=== PATIENT | female | born 1970 | race Caucasian/White ===

== ENCOUNTER → 2019-09-05 08:55 | Outpatient (BNVA) | payer MEDICAID, SELFPAY | PROVIDERS: Family Provider Internal Medicine; PCP Internal Medicine; Visit Provider Nurse Practitioner | DX: M47.812 Spondylosis without myelopathy or radiculopathy, cervical region (principal); M47.816 Spondylosis without myelopathy or radiculopathy, lumbar region; F17.210 Nicotine dependence, cigarettes, uncomplicated; Z79.891 Long term (current) use of opiate analgesic | CPT/HCPCS: 99214 ==

== ENCOUNTER → 2019-09-12 12:11 | Outpatient (BNVA) | payer MEDICAID, SELFPAY | PROVIDERS: Family Provider Internal Medicine; PCP Internal Medicine; Visit Provider Anesthesiology Pain Medicine | DX: M47.816 Spondylosis without myelopathy or radiculopathy, lumbar region (principal); M54.9 Dorsalgia, unspecified; F17.210 Nicotine dependence, cigarettes, uncomplicated | CPT/HCPCS: 64635; 64636; 77003; J1030; J2001 ==

== ENCOUNTER → 2019-09-26 12:50 | Outpatient (BNVA) | payer MEDICAID, SELFPAY | PROVIDERS: Family Provider Internal Medicine; PCP Internal Medicine; Visit Provider Anesthesiology | DX: M50.30 Other cervical disc degeneration, unspecified cervical region (principal); M47.812 Spondylosis without myelopathy or radiculopathy, cervical region; M47.816 Spondylosis without myelopathy or radiculopathy, lumbar region; F17.210 Nicotine dependence, cigarettes, uncomplicated; Z79.891 Long term (current) use of opiate analgesic | CPT/HCPCS: 99213; 99214 ==

== ENCOUNTER 2019-11-01 12:09 | Observation (INO) | payer MEDICAID, SELFPAY ==
[2019-11-01] VITALS (10 sets, daily range): BP systolic 75–126; BP diastolic 57–91; PULSE 86–117; RESP 16–20; TEMP 36.4; O2SAT 93–98; BMI 28.9
--- NOTE | 2019-11-01 12:28 | CT_ITS ---
WS: [id number] CT ABDOMEN PELVIS TECHNIQUE: Contrast-enhanced CT of the abdomen and pelvis with coronal and sagittal reformatted image s. CLINICAL INFORMATION: vomiting, hypotension COMPARISON: March 20, 2017 DLP: 1079.[address] scans at [facility] use at least one of these dose optimization techniques: automat ed exposure control; mA and/or kV adjustment per patient size (includes targeted exams where dose is matched to clinical indication); or iterative reconstruction. FINDINGS: Prior cholecystectomy. Prior hysterectomy. Mild intrahepatic biliary ductal dilatation is normal post cholecystectomy. Stable dilatation of the common bile duct. Normal hepatic parenchymal enhancement. P ortal vein and splenic vein appear patent. Moderate fatty atrophy of the pancreas. Splenic granulomas . Adrenal glands are normal. Normal renal parenchymal enhancement. No hydronephrosis. Normal caliber abdominal aorta. Aortic calcification. Colon is normal in appearance. Normal appendix. Slightly prominent fluid-filled loops of small bowel in the midabdomen and pelvis without evidence of significant bowel distention or high-grade obstructi on. Lung bases are well aerated. No periaortic or pelvic lymphadenopathy. CT/CT abdomen pelvis w con* [id number] IMPRESSION: 1. Prior cholecystectomy. Liver is normal in appearance. 2. No evidence of small or large bowel obstruction. A few slightly prominent l oops of fluid-filled small bowel in the mid abdomen and pelvis although no evid ence of obstruction. 3. No free fluid in the pelvis. 4. No hydronephrosis. Normal renal parenchymal enhancement. 5. Normal appendix. 6. Prior hysterectomy.
--- NOTE | 2019-11-01 12:29 | XR_ITS ---
WS: [id number] CHEST XRAY TECHNIQUE: Portable chest. CLINICAL INFORMATION: vomiting COMPARISON: May 04, 2018 FINDINGS: Heart: Normal cardiac silhouette. Lungs: Chronic emphysematous changes. Hyperinflation. Chronic appearing interstitial thickening in th e lung bases is unchanged. No acute pulmonary infiltrates. Bones: Normal visualized bony structures. XR/XR chest 1V portable [id number] IMPRESSION: Hyperinflation with chronic emphysematous change. No acute pulmonary infiltrate s.
--- NOTE | 2019-11-01 12:34 | ED_ITS ---
HPI - Nausea/Vomiting/Diarrhea General: Chief complaint: Nausea/Vomiting/Diarrhea Stated complaint: NAUSEA/ VOMITING Time Seen by Provider: 11/01/19 12:19 Source: patient Mode of arrival: EMS Limitations: no limitations History of Present Illness: HPI Narrative: The patient is a 49-year-old female patient with a history of diabetes mellitus, hypertension, chronic opioid use who presents to the emergency department with complaints of nausea and vomiting. She has been vomiting for about 3 weeks but got much worse about 2 days ago and at that time she was vomiting every 30 minutes. She went to her primary care provider's office today and they noted that she was Hypoxic with oxygen saturation in the mid 80s and so they asked her to be brought here for evaluation. She states that she has been using her insulin as she should, however she is unsure of when she took it last because her blood glucose was high this morning the 300s but has come back down to 100s. MD elicited complaint: nausea and vomiting Onset (ago): week(s) (2, but much worse in the last 2 days) Description of vomiting: food contents Associated nausea: Yes Associated symtoms: Reports chest pain and nausea; Denies change in vision, dysuria, headache(s) or palpitations Review of Systems General: Reports: 10 or more systems reviewed and unremarkable except in HPI and below Const: Denies: fever, chills or body aches Eyes: Denies: change in vision or blurry vision ENMT: Denies: throat pain, enlarged tonsils, painful swallowing, hoarseness, mouth pain or swelling of lips/tongue Card: Reports: chest pain; Denies: palpitations, irregular heart rhythm, edema or swelling of feet/ankles Resp: Denies: shortness of breath, productive cough or non-productive cough GI: Reports: nausea : Denies: flank pain, difficulty urinating, painful urination, urinary frequency, urinary urgency or urinary hesitancy Musc: Denies: neck pain, back pain or extremity swelling Skin/Breast: Denies: rash, itching or redness Neuro: Denies: headache, numbness in extremities or weakness in extremities Endo: Denies: excessive urination, excessive thirst or tired all the time [facility] ED PFSH: Social History (Updated 11/01/19 @ 08:36 by Amy Ridley LPN) Smoking and tobacco status: current every day smoker cigarettes Packs smoked per day: 0.5 Alcohol intake: current Alcohol intake frequency: holidays/special occasions only Caregiver/support person: Yes Lives independently: Yes Household members: spouse Marital status: History of recent travel: No Physical Exam Const: COMMON NORMALS: no apparent distress, average body habitus, oriented x3, no limitations, healthy appearing and alert HENMT: COMMON NORMALS: normocephalic and head/scalp atraumatic HEAD & SCALP: normocephalic and atraumatic Eye: COMMON NORMALS: PERRL, EOMs intact bilaterally, conjunctivae normal and no scleral icterus CONJUNCTIVA: Yes conjunctivae normal PUPIL: Yes PERRL Neck/C-Spine: COMMON NORMALS: full ROM, supple, no meningeal signs, no JVD and no carotid bruits Chest: COMMONS NORMALS: inspection of chest normal and palpation of chest normal Resp: COMMON NORMALS: normal respiratory effort, no retractions, no use of accessory muscles, clear to auscultation bilaterally and percussion normal AUSCULTATION: clear to auscultation bilaterally PERCUSSION: percussion normal Cardio: COMMON NORMALS: no JVD, regular rate, regular rhythm, S1 normal heart sound, S2 normal heart sound, no gallops, no clicks, no murmurs, no rub and peripheral pulses 2+ throughout RATE: regular rate RHYTHM: regular rhythm HEART SOUNDS: S1 normal and S2 normal PERIPHERAL PULSES: pulses 2+ throughout GI: COMMON NORMALS: normal to inspection, nondistended, normoactive bowel sounds, soft to palpation, non-tender, no hepatosplenomegaly, no masses and no bruits PALPATION: Yes soft and Yes no hepatosplenomegaly : COMMON NORMALS: Yes no CVA tenderness BLADDER/KIDNEY EXAM: Yes no CVA tenderness Back/Pelvis: COMMON NORMALS: no CVA tenderness Extremity: COMMON NORMALS: normal to inspection, full ROM, normal capillary refill, no calf tenderness and no pedal edema Neuro: COMMON NORMALS: oriented x3 SENSORIUM/ORIENTATION: Yes alert MENINGEAL SIGNS: Yes no meningeal signs Skin: COMMON NORMALS: no rashes or lesions noted, no wounds, skin turgor normal, no jaundice, no petechiae and no mottling GENERAL SKIN EXAM: no rashes or lesions noted and turgor normal Course ED course: 49-year-old diabetic and hypertensive patient who presents to the emergency department with intractable nausea and vomiting. Patient was hypotensive on arrival, and on evaluation she also has acute kidney injury. She responded to a fluid bolus, evaluation in the emergency department shows she is not in DKA and he was essentially unremarkable. Consultations: Consultation #1: Dr. Alva, Hospitalist. He kindly accepted the patient to his service. Time: 15:35 Vital Signs: Vital signs: Vital Signs Temperature 97.6 F 11/01/19 12:20 Pulse Rate 95 11/01/19 16:40 Respiratory Rate 18 11/01/19 16:40 Blood Pressure 110/76 11/01/19 16:40 Pulse Oximetry 96 11/01/19 16:40 MDM - Nausea/Vomiting/Diarrhea MDM Narrative: Medical decision making narrative: 49-year-old female patient who presents with nausea vomiting and hypotension. She also has acute kidney injury. She is being admitted for further evaluation and management. Medical Records: Attestation: I reviewed the patient's medical records. Lab Data: Labs: Lab Results 11/01/19 11/01/19 11/01/19 Range/Units 12:44 13:03 13:47 WBC 20.0 H (4.0-10.0) 10^3/ uL RBC 5.08 (4.1-5.3) 10^6/u L Hgb 14.0 (11.5-15.3) g/dL Hct 42.4 (37.0-47.0) % MCV 83.5 (81-99) fL MCH 27.6 L (28.0-34.0) pg MCHC 33.0 (30.0-36.0) g/dL RDW 15.3 H (12.1-15.1) % Plt Count 211 (130-400) 10^3/c mm MPV 9.4 (7.4-10.4) fL Neut % (Auto) 77.7 % Lymph % (Auto) 14.3 % Mitchell % (Auto) 6.4 % Eos % (Auto) 0.3 % Baso % (Auto) 0.3 % Neut # (Auto) 15.5 H (1.8-7.7) 10^3/u L Lymph # (Auto) 2.9 (0.8-4.8) 10^3/u L Mitchell # (Auto) 1.3 H (0.2-0.9) 10^3/u L Eos # (Auto) 0.1 (0.0-0.8) 10^3/u L Baso # (Auto) 0.1 (0.0-0.1) 10^3/u L Nucleated RBC % (a uto) 0 % Nucleated RBCs # 0.0 /100WBC Specimen Type Arterial Sample Site Radial, left ABG pH 7.51 H (7.35-7.45) ABG pCO2 27.7 L (35-45) mmHg ABG pO2 70.3 L (80.0-100.0) mmH g ABG HCO3 22.0 (22-26) mmol/L ABG Base Excess 0.0 (-2.0-2.0) mmol/ L Vishal Test Pos Hematocrit 39.0 (37-47) % O2 Delivery Device Room air FiO2 21.0 % Childcare Center Director ID [email or web address] Sodium (136-145) mmol/L Potassium (3.5-5.1) mmol/L Chloride (98-107) mmol/L Carbon Dioxide (22-29) mmol/L Anion Gap (5-19) BUN (6-20) mg/dL Creatinine (0.5-0.9) mg/dL GFR Calculation (90-130) mL/min Glucose (65-115) mg/dL Calculated Osmolal ity (285-295) mOsm/k g Lactate 2.2 (0.5-2.2) mmol/L Calcium (8.5-10.5) mg/dL Total Bilirubin (0.15-1.2) mg/dL AST (0-32) U/L ALT (0-33) U/L Alkaline Phosphata se (35-105) IU/L C-Reactive Protein (0.0-4.9) mg/L Total Protein (6.6-8.7) g/dL Albumin (3.5-5.2) g/dL Globulin (1.3-4.6) g/dL Lipase (13-60) U/L Urine Color (Yellow) Urine Appearance (CLEAR) Urine pH (5-7) Ur Specific Gravit y (1.005-1.030) Urine Protein (Negative) Urine Glucose (UA) (Normal) Urine Ketones (Negative) Urine Blood (Negative) Urine Nitrate (Negative) Urine Bilirubin (NEGATIVE) Urine Urobilinogen (Negative) mg/dL Ur Leukocyte Suzie ase (Negative) Urine RBC (0-2) /hpf Urine WBC (0-5) /hpf Ur Squamous Epith Cells (0-5) Urine Bacteria (NONE) Urine Opiates Scre en (Negative) ng/mL Ur Barbiturates Sc reen (Negative) ng/mL Ur Phencyclidine S crn (Negative) ng/mL Ur Amphetamines Sc reen (Negative) ng/mL U Benzodiazepines Scrn (Negative) ng/mL Urine Cocaine Scre en (Negative) ng/mL U Marijuana (THC) Screen (Negative) ng/mL 11/01/19 11/01/19 11/01/19 Range/Units 13:47 14:57 14:57 WBC (4.0-10.0) 10^3/ uL RBC (4.1-5.3) 10^6/u L Hgb (11.5-15.3) g/dL Hct (37.0-47.0) % MCV (81-99) fL MCH (28.0-34.0) pg MCHC (30.0-36.0) g/dL RDW (12.1-15.1) % Plt Count (130-400) 10^3/c mm MPV (7.4-10.4) fL Neut % (Auto) % Lymph % (Auto) % Mitchell % (Auto) % Eos % (Auto) % Baso % (Auto) % Neut # (Auto) (1.8-7.7) 10^3/u L Lymph # (Auto) (0.8-4.8) 10^3/u L Mitchell # (Auto) (0.2-0.9) 10^3/u L Eos # (Auto) (0.0-0.8) 10^3/u L Baso # (Auto) (0.0-0.1) 10^3/u L Nucleated RBC % (a uto) % Nucleated RBCs # /100WBC Specimen Type Sample Site ABG pH (7.35-7.45) ABG pCO2 (35-45) mmHg ABG pO2 (80.0-100.0) mmH g ABG HCO3 (22-26) mmol/L ABG Base Excess (-2.0-2.0) mmol/ L Vishal Test Hematocrit (37-47) % O2 Delivery Device FiO2 % Childcare Center Director ID Sodium 131 L (136-145) mmol/L Potassium 4.0 (3.5-5.1) mmol/L Chloride 94 L (98-107) mmol/L Carbon Dioxide 25 (22-29) mmol/L Anion Gap 16.0 (5-19) BUN 34 H (6-20) mg/dL Creatinine 1.5 H (0.5-0.9) mg/dL GFR Calculation 36.6 L (90-130) mL/min Glucose 52 L (65-115) mg/dL Calculated Osmolal ity 267 L (285-295) mOsm/k g Lactate (0.5-2.2) mmol/L Calcium 8.7 (8.5-10.5) mg/dL Total Bilirubin 0.3 (0.15-1.2) mg/dL AST 12 (0-32) U/L ALT 11 (0-33) U/L Alkaline Phosphata se 188 H (35-105) IU/L C-Reactive Protein 65.6 H (0.0-4.9) mg/L Total Protein 6.5 L (6.6-8.7) g/dL Albumin 2.5 L (3.5-5.2) g/dL Globulin 4.0 (1.3-4.6) g/dL Lipase 8 L (13-60) U/L Urine Color Yellow (Yellow) Urine Appearance Cloudy (CLEAR) Urine pH 6.5 (5-7) Ur Specific Gravit y 1.000 L (1.005-1.030) Urine Protein 1+ H (Negative) Urine Glucose (UA) 4+ H (Normal) Urine Ketones 1+ H (Negative) Urine Blood 3+ H (Negative) Urine Nitrate Negative (Negative) Urine Bilirubin 1+ H (NEGATIVE) Urine Urobilinogen 1 H (Negative) mg/dL Ur Leukocyte Suzie ase 2+ H (Negative) Urine RBC 25-40 H (0-2) /hpf Urine WBC 55-80 H (0-5) /hpf Ur Squamous Epith Cells 55-80 H (0-5) Urine Bacteria 4+ H (NONE) Urine Opiates Scre en Negative (Negative) ng/mL Ur Barbiturates Sc reen Negative (Negative) ng/mL Ur Phencyclidine S crn Negative (Negative) ng/mL Ur Amphetamines Sc reen Negative (Negative) ng/mL U Benzodiazepines Scrn Positive H (Negative) ng/mL Urine Cocaine Scre en Negative (Negative) ng/mL U Marijuana (THC) Screen Negative (Negative) ng/mL Discharge Plan Discharge Patient Disposition: Admitted As Inpatient Admit Provider: Irving Alva Clinical Impression: Acute hypotension, Acute kidney injury, Intractable nausea and vomiting Condition: Stable Interventions: ED Discharge Assessment Last Done: 11/01/19 16:40 Coding Level of Care Code 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
[2019-11-01] MEDS: sodium chloride 0.9% 1,000 ML 999 ML IV ×2 (12:39→15:51)
[2019-11-01 12:56] LABS: ABG PCO2 27.7 mmHg (35-45); ABG PH Result 7.51 (7.35-7.45); Blood Gas Allen Test Pos; Blood Gas Operator Identificat amh; Blood Gas Sample Site Radial, left; Blood Gas Sample Type Arterial; Oxygen Device ROOM AIR; PO2 ABG 70.3 mmHg (80.0-100.0)
[2019-11-01 13:09] LABS: Basophils # 0.1 10^3/uL (0.0-0.1); Basophils % 0.3 %; Eosinophils # 0.1 10^3/uL (0.0-0.8); Eosinophils % 0.3 %; Hematocrit 42.4 % (37.0-47.0); Lymphocytes # 2.9 10^3/uL (0.8-4.8); Lymphocytes % 14.3 %; Mean Corpuscular Hemoglobin 27.6 pg (28.0-34.0); Mean Corpuscular Volume 83.5 fL (81-99); Mean Platelet Volume 9.4 fL (7.4-10.4); Monocytes # 1.3 10^3/uL (0.2-0.9); Monocytes % 6.4 %; Neutrophils # 15.5 10^3/uL (1.8-7.7); Neutrophils % 77.7 %; Nucleated Red Blood Cells % 0 %; Platelet Count 211 10^3/cmm (130-400); Red Blood Count 5.08 10^6/uL (4.1-5.3); Red Cell Distribution Width 15.3 % (12.1-15.1)
[2019-11-01] MEDS: iohexol 300 mg/mL 100 mL Btl IV (14:05)
[2019-11-01 14:12] LABS: Lactate (Lactic Acid level) 2.2 mmol/L (0.5-2.2)
[2019-11-01 14:13] LABS: Alanine Aminotransferase 11 U/L (0-33); Albumin Level 2.5 g/dL (3.5-5.2); Alkaline Phosphatase 188 IU/L (35-105); Aspartate Amino Transferase 12 U/L (0-32); Blood Urea Nitrogen 34 mg/dL (6-20); Calcium 8.7 mg/dL (8.5-10.5); Carbon Dioxide 25 mmol/L (22-29); Chloride 94 mmol/L (98-107); Glomerular Filtration Rate 36.6 mL/min (90-130); Glucose 52 mg/dL (65-115); Lipase 8 U/L (13-60); Osmolality Calculated 267 mOsm/kg (285-295); Sodium 131 mmol/L (136-145); Total Bilirubin 0.3 mg/dL (0.15-1.2); Total Protein 6.5 g/dL (6.6-8.7)
[2019-11-01 14:38] LABS: C Reactive Protein 65.6 mg/L (0.0-4.9)
[2019-11-01] MEDS: ondansetron 2 mg/ML SDV 2 mL 4 MG IVP ×2 (15:33→19:42)
[2019-11-01 15:40] LABS: Amphetamines Screen Urine Negative (Negative); Barbiturates Screen Urine Negative (Negative); Benzodiazepines Screen Urine Positive (Negative); Cocaine Screen Urine Negative (Negative); Opiate Screen Urine Negative (Negative); PCP Screen Urine Negative (Negative); THC Screen Urine Negative (Negative)
[2019-11-01 15:44] LABS: Glucose Urine UA 4+ (Normal); Ketones Urine 1+ (Negative); Protein Urine 1+ (Negative); Urine Appearance Cloudy (CLEAR); Urine Color Yellow (Yellow); pH Urine 6.5 (5-7)
[2019-11-01 15:45] LABS: Add Urine Microscopic? YES; Bilirubin Urine 1+ (NEGATIVE); Blood Urine 3+ (Negative); Leukocyte Esterase Urine 2+ (Negative); Nitrate Urine Negative (Negative); Urobilinogen Urine 1 mg/dL (Negative)
[2019-11-01 15:49] LABS: Add Urine Culture? Yes; Bacteria Urine 4+; RBC Urine 25-40 /hpf (0-2); Squamous Epithelial Cell Urine 55-80 (0-5); WBC Urine 55-80 /hpf (0-5)
[2019-11-01 16:51] LABS: Glucose Urine UA 2+ (Normal); Ketones Urine 1+ (Negative); Protein Urine Neg (Negative); Urine Appearance Clear (CLEAR); Urine Color Yellow (Yellow); pH Urine 5 (5-7)
[2019-11-01 16:52] LABS: Add Urine Microscopic? YES; Bilirubin Urine 1+ (NEGATIVE); Blood Urine Trace (Negative); Leukocyte Esterase Urine Negative (Negative); Nitrate Urine Negative (Negative); Urobilinogen Urine 4 mg/dL (Negative)
--- NOTE | 2019-11-01 17:18 | PM.HP ---
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 Presents today with c/o multiple episodes of nausea, vomiting and diarrhea over the past 3 weeks which is getting progressively worse. Also c/o right sided chest pain, progressive SOB over the same period. C/o dry cough and post nasal drip. Presented to her PMD today with above complaints and was noted to have 02 sat of 87% after which she was sent to the ER. Currently 02 sat is 96% on RA, however it is noted to be varying between 89-96% while talking. C/o abdominal discomfort also, however unable to localize. Denies any burning micturition. Denies fever, however notable on Actemra. No h/o sick contacts. No contact with anyone with known COVID. Labs notable for leukocytosis 20, hypoglycemia 52 (took 20 U insulin this morning and then threw up her meals), UA with elevated WBCs, ketonuria and glucosuria, MARY KAY with cr 1.5 (baseline 0.8). She was briefly hypotensive in the ED, but now improved with Iv hydration. Review of Systems General: Reports: 10 or more systems reviewed and unremarkable except in HPI and below Const: Denies: fever, chills or body aches Eyes: Denies: change in vision, blurry vision or photophobia ENMT: Reports: hoarseness; Denies: throat pain, enlarged tonsils, painful swallowing or nasal congestion Card: Denies: chest pain, palpitations, irregular heart rhythm, edema, swelling of feet/ankles, lightheadedness, pre-syncope, shortness of breath on exertion or shortness of breath when lying down Resp: Denies: shortness of breath, productive cough, non-productive cough, wheezing, stridor, pain on inspiration, change in phlegm color, coughing up blood or chest congestion GI: Reports: abdominal pain, nausea, vomiting and diarrhea; Denies: vomiting blood, coffee grounds in vomit, difficulty swallowing, heartburn/indigestion, constipation, cramping, change in stool character, blood in stool or black tarry stool : Denies: flank pain, difficulty urinating, painful urination, urinary frequency, urinary urgency, urinary hesitancy or blood in urine Musc: Denies: neck pain, back pain, extremity pain, joint swelling, joint warmth or deformity Neuro: Denies: headache, numbness in extremities, weakness in extremities, changes in sensation, difficulty walking, frequent falls, dizziness, vertigo, behavioral changes, slurred speech or seizure-like activity Psych: Denies: anxiety, depression, suicidal ideation or homicidal ideation Endo: Denies: excessive urination, excessive thirst, tired all the time, cold intolerance or hot flashes Jewel/Lymph: Denies: easy bruising or easy bleeding Medications/Allergies Home Medications Medication Instructions Recorded Confirmed Last Taken Type apixaban 5 mg tablet 5 mg PO BID 09/04/19 11/01/19 11/01/19 History cilostazol 50 mg tablet 50 mg PO BID 09/04/19 11/01/19 Unknown History enalapril maleate 20 mg tablet 20 mg PO DAILY 09/04/19 11/01/19 11/01/19 History ergocalciferol (vitamin D2) 1,250 1,250 mcg PO Q7D cap 09/04/19 11/01/19 10/25/19 History mcg (50,000 unit) capsule fluticasone propionate 110 1 puff INHALATION BID 09/04/19 11/01/19 Unknown History mcg/actuation HFA aerosol inhaler hydroxychloroquine 200 mg tablet 200 mg PO BID 09/04/19 11/01/19 11/01/19 History ibandronate 150 mg tablet 150 mg PO .MONTHLY tab 09/04/19 11/01/19 Unknown History insulin glargine 100 unit/mL 55 unit SUBCUT DAILY 09/04/19 11/01/19 10/31/19 History subcutaneous solution ipratropium 20 mcg-albuterol 100 1 puff INHALATION Q6H PRN 09/04/19 11/01/19 Unknown History mcg/actuation mist for inhalation metoprolol succinate 25 mg 12.5 mg PO DAILY 09/04/19 11/01/19 11/01/19 History tablet,extended release 24 hr prednisone 5 mg tablet 5 mg PO DAILY 09/04/19 11/01/19 Unknown History ropinirole 2 mg tablet 2 mg PO BEDTIME 09/04/19 11/01/19 10/31/19 History rosuvastatin 20 mg tablet 20 mg PO DAILY 09/04/19 11/01/19 10/31/19 History tocilizumab 162 mg/0.9 mL See Rx Instructions .ROUTE .COMPLEX 09/04/19 11/01/19 Unknown History subcutaneous pen injector clobetasol 0.05 % topical cream 1 applic TOPICAL BID PRN 09/05/19 11/01/19 Unknown History clonidine HCl 0.1 mg tablet 0.1 - 0.2 mg PO Q4H PRN tab 09/05/19 11/01/19 Unknown History escitalopram oxalate 20 mg tablet 20 mg PO DAILY 09/05/19 11/01/19 11/01/19 History gabapentin 300 mg capsule See Rx Instructions .ROUTE 09/05/19 11/01/19 11/01/19 History .COMPLEX cap omeprazole 40 mg capsule,delayed 40 mg PO DAILY cap 09/05/19 11/01/19 11/01/19 History release ondansetron HCl 4 mg tablet 4 mg PO Q8H PRN 09/05/19 11/01/19 10/30/19 History prednisone 2.5 mg tablet 2.5 mg PO DAILY tab 09/05/19 11/01/19 11/01/19 History nitroglycerin 0.4 mg sublingual 0.4 mg SUBLINGUAL Q5M PRN 30 Days 09/09/19 11/01/19 Unknown Rx tablet #25 tab isosorbide dinitrate 30 mg tablet 15 mg PO BID 90 Days #90 tab 10/03/19 11/01/19 11/01/19 Rx Glucagon (HCl) Emergency Kit See Rx Instructions .ROUTE .COMPLEX 11/01/19 11/01/19 Unknown History albuterol sulfate 2.5 mg INHALATION QID PRN 11/01/19 11/01/19 Unknown History aspirin [Aspir-81] 81 mg PO DAILY 11/01/19 11/01/19 Unknown History duloxetine 30 mg capsule,delayed 30 mg PO DAILY 30 Days #30 cap 11/01/19 11/01/19 Unknown Rx release epinephrine [EpiPen 2-Carrington] See Rx Instructions .ROUTE .COMPLEX 11/01/19 11/01/19 Unknown History insulin aspart U-100 [Novolog 20 unit SUBCUT TID 11/01/19 11/01/19 Unknown History Flexpen U-100 Insulin] metoclopramide HCl [Reglan] 10 mg PO TID 11/01/19 11/01/19 Unknown History nicotine [Nicoderm CQ] 1 patch TRANSDERMAL PRN 11/01/19 11/01/19 Unknown History oxycodone 15 mg tablet 15 mg PO BID PRN 30 Days #60 tab 11/01/19 11/01/19 11/01/19 06:00 Rx 7.5MG tramadol 50 mg tablet 50 mg PO TID PRN #90 tab 11/01/19 11/01/19 Unknown Rx Allergies Allergy/AdvReac Type Severity Reaction Status Date / Time No Known Allergies Allergy Verified 11/01/19 08:33 PFSH Acute PFSH: Medical History Cervical spondylosis DDD (degenerative disc disease), cervical Diabetes Essential hypertension Fibromyalgia Long-term current use of opiate analgesic Osteoporosis Pain management contract signed Pain, joint, multiple sites Tobacco use disorder Surgical History H/O dilation and curettage Hx laparoscopic cholecystectomy Hx of section (~1989) Hx of hysterectomy Family History Mother Stroke Cancer SKIN CANCER Sister Stroke Other Diabetes Myocardial infarct Denies family history of Anesthesia complication Bleeding disorder Social History Smoking and tobacco status: current every day smoker cigarettes Packs smoked per day: 0.5 Alcohol intake: current Alcohol intake frequency: holidays/special occasions only Caregiver/support person: Yes Lives independently: Yes Household members: spouse Marital status: History of recent travel: No Vitals/I&O/Wt Last Vital Signs Temp 97.6 F 11/01/19 12:20 Pulse 95 11/01/19 16:40 Resp 18 11/01/19 16:40 BP 110/76 11/01/19 16:40 Pulse Ox 96 11/01/19 16:40 11/01/19 11/01/19 11/01/19 06:59 14:59 22:59 Intake Total 1000 / 1000 Balance 1000 / 1000 Weight last 48 hrs Weight 78.925 kg Physical Exam Narrative: EXAM NARRATIVE: GEN: Awake, alert and oriented, no acute distress CVS: S1S2 N RS: CTA B/L Abd: Soft, nt/nd , bs+ DISPATCHER CHIEF OIL: no focal neuro deficits Data : 11/01/19 13:03 11/01/19 13:47 Micro: Microbiology 11/01/19 13:47 Blood Culture - Preliminary Blood SPECIMEN COLLECTED 11/01/19 12:58 Blood Culture - Preliminary Blood SPECIMEN COLLECTED A&P Assessment and plan (1) Acute hypotension: Status: Acute (2) Acute kidney injury: Status: Acute (3) Intractable nausea and vomiting: Status: Acute (4) Chest pain: Status: Acute Qualifiers: Chest pain type: unspecified Qualified Code(s): R07.9 - Chest pain, unspecified (5) Dyspnea: Status: Acute (6) Hypoxia: Status: Acute Additional A&P Information Admit to med/surg #intractable nausea, vomiting and diarrhea # dehydration as a result of above # hypotension as a result of dehydration - IVF bolus given with improvement in hypotension - continue IVF @ 75cc/hr CT abdomen without any acute intra abdominal process Lipase not elevated, less likely pancreatitis prn zofran/compazine for symptomatic management -no episodes of diarrhea today # leukocytosis likely as a result of dehydration, however will need to r/o sepsis. Patient may not mount a febrile response while being on IL 6 inhibiitor -CXR without any gross infiltrates - Blood cx sent # dyspnea, chest pain, dry cough and hypoxia which was transient On ABG, appears to have respiratory alkalosis Currently 02 sat 89% when attempting to hold conversation, at other times 96% on RA. Last CT chest from 2016 with cystic lung changes, will need f/up , does not recall her last PFT stress test 04/2019 without evidence of reversible ischemia Covid rule out Full code DVt ppx: eliquis Attestations Medical Necessity Statement*: Anticipate <2midnight for management of nausea, vomiting,dehydration Coding Level of Care Code Acute County Assessor for Chg Fwd Diagnoses Acute hypotension I95.9 Acute kidney injury N17.9 Intractable nausea and vomiting R11.2 Chest pain R07.9 Chest pain type: unspecified Dyspnea R06.00 Hypoxia R09.02
--- NOTE | 2019-11-01 17:36 | PC.NURSE ---
COVID swab and collected and sent to lab.
[2019-11-01 18:08] LABS: Troponin T (5th) Once 13 ng/mL (0-10)
[2019-11-01] MEDS: sodium chloride 0.9% 1,000 ML 100 ML IV (18:24)
[2019-11-01] MEDS: oxyCODONE IR 30 mg Tablet 15 MG PO (19:42)
[2019-11-01] MEDS: cefTRIAXone 1,000 MG in sodium chloride 0.9% (plus) 50 ML 100 MG IV (19:57)
[2019-11-01] MEDS: cilostazol 100 mg Tablet 50 MG PO (19:57)
[2019-11-01] MEDS: apixaban 5 mg Tablet PO (19:57)
[2019-11-01 20:45] LABS: Estmated Average Glucose 186; Hemoglobin A1C 8.1 % (4.0-6.0)
[2019-11-01 20:49] LABS: Thyroid Stimulating Hormone 2.03 uIU/mL (0.27-4.20)
[2019-11-01] MEDS: ropinirole 2 mg Tablet PO (20:51)
[2019-11-01] MEDS: gabapentin 300 mg Capsule 900 MG PO (20:51)
[2019-11-01 21:04] LABS: Glucose Point of Care 49 mg/dL (70-110)
[2019-11-01] MEDS: hydroxychloroquine 200 mg Tablet PO (21:47)
[2019-11-02] VITALS (18 sets, daily range): BP systolic 83–119; BP diastolic 46–86; PULSE 87–104; RESP 7–20; TEMP 36.5–36.6; O2SAT 92–97
[2019-11-02] MEDS: sodium chloride 0.9% 250 ML IV (00:16)
[2019-11-02] MEDS: TRAMadol 50 mg Tablet PO ×2 (00:20→14:33)
--- NOTE | 2019-11-02 01:29 | PM.EVENT ---
Event Note Event Note: Called earlier with patient having multiple episodes of loose stools. She requested an antidiarrheal. Reviewed history and under the circumstances chose to send stool studies and hold off on antidiarrheals at the moment. Need to rule out an acute infectious cause. Called again with patient complaining of pain. Pain is her chronic pain rather than something new and acute. She has had her oxycodone and tramadol which are home medications. Blood pressures have been running 70s to 80s systolic. I had given her a bolus of normal saline earlier. Heart rate is in the 80s. Clinically she is not acutely ill appearing. She is smiling. She is not having any tachypnea or obvious signs of acute distress. I have considered whether or not to stress dose her with steroids as well as possible initiation of pressors but at this time I am holding off. Her map is staying around 65. I have ordered lactic acid. Not comfortable providing additional narcotic pain medications at the moment. I have reviewed with nursing staff. We will follow-up and monitor closely for need to initiate other measures.
[2019-11-02 01:49] LABS: Glucose Point of Care 85 mg/dL (70-110)
[2019-11-02 02:01] LABS: Lactic Sepsis W/Reflex 1.8 mmol/L (0.5-2.2)
[2019-11-02] MEDS: sodium chloride 0.9% 1,000 ML 100 ML IV ×2 (02:56→13:06)
[2019-11-02 04:10] LABS: Glucose Point of Care 103 mg/dL (70-110)
[2019-11-02 05:20] LABS: Basophils # 0.1 10^3/uL (0.0-0.1); Basophils % 0.3 %; Eosinophils % 0.3 %; Hematocrit 36.6 % (37.0-47.0); Hemoglobin 11.7 g/dL (11.5-15.3); Lymphocytes # 1.9 10^3/uL (0.8-4.8); Lymphocytes % 12.9 %; Mean Corpuscular Hemoglobin 28.6 pg (28.0-34.0); Mean Corpuscular Volume 89.5 fL (81-99); Mean Platelet Volume 9.7 fL (7.4-10.4); Monocytes # 0.5 10^3/uL (0.2-0.9); Monocytes % 3.5 %; Neutrophils # 12.3 10^3/uL (1.8-7.7); Neutrophils % 82.6 %; Nucleated Red Blood Cells % 0 %; Platelet Count 180 10^3/cmm (130-400); Red Blood Count 4.09 10^6/uL (4.1-5.3); Red Cell Distribution Width 15.7 % (12.1-15.1); White Blood Count 14.9 10^3/uL (4.0-10.0)
[2019-11-02 05:40] LABS: Anion Gap 14.8 (5-19); Blood Urea Nitrogen 22 mg/dL (6-20); Calcium 8.5 mg/dL (8.5-10.5); Carbon Dioxide 21 mmol/L (22-29); Chloride 96 mmol/L (98-107); Glomerular Filtration Rate 52.4 mL/min (90-130); Glucose 123 mg/dL (65-115); Osmolality Calculated 264 mOsm/kg (285-295); Potassium 3.8 mmol/L (3.5-5.1); Sodium 128 mmol/L (136-145)
[2019-11-02] MEDS: oxyCODONE IR 30 mg Tablet 15 MG PO (05:54)
[2019-11-02] MEDS: ondansetron 2 mg/ML SDV 2 mL 4 MG IVP (06:04)
[2019-11-02 07:45] LABS: Glucose Point of Care 212 mg/dL (70-110)
[2019-11-02] MEDS: cilostazol 100 mg Tablet 50 MG PO (08:00)
[2019-11-02] MEDS: atorvastatin 40 mg Tablet 80 MG PO (08:00)
[2019-11-02] MEDS: aspirin 81 mg EC Tablet PO (08:00)
[2019-11-02] MEDS: pantoprazole DR 40 mg Tablet PO (08:00)
[2019-11-02] MEDS: hydroxychloroquine 200 mg Tablet PO (08:00)
[2019-11-02] MEDS: predniSONE 5 mg Tablet 2.5 MG PO (08:01)
[2019-11-02] MEDS: duloxetine 30 mg Capsule PO (08:01)
[2019-11-02] MEDS: metoprolol succinate ER (24 HR) 25 mg Tablet 12.5 MG PO (08:01)
[2019-11-02] MEDS: escitalopram 10 mg Tablet 20 MG PO (08:01)
[2019-11-02] MEDS: gabapentin 300 mg Capsule PO ×2 (08:01→13:06)
[2019-11-02] MEDS: apixaban 5 mg Tablet PO (08:02)
[2019-11-02] MEDS: predniSONE 5 mg Tablet PO (08:02)
[2019-11-02] MEDS: isosorbide mononitrate ER 30 mg Tablet 15 MG PO (08:04)
--- NOTE | 2019-11-02 11:27 | P.PN_ITS ---
Vitals/I&O/Wt Last Vital Signs Temp 97.6 F 11/01/19 12:20 Pulse 95 11/02/19 07:37 Resp 15 11/02/19 07:37 BP 109/65 11/02/19 05:00 Pulse Ox 94 11/02/19 07:37 11/01/19 11/02/19 11/02/19 22:59 06:59 14:59 Intake Total 1272 / 2272 1900 / 4172 360 / 360 Output Total 400 / 400 100 / 100 Balance 1272 / 2272 1500 / 3772 260 / 260 Weight last 48 hrs Weight 78.925 kg Data : 11/02/19 04:50 11/02/19 04:50 Micro: Microbiology 11/01/19 13:47 Blood Culture - Preliminary Blood SPECIMEN COLLECTED 11/01/19 12:58 Blood Culture - Preliminary Blood SPECIMEN COLLECTED Coding Level of Care Code Acute Mixer Operator Tablets for Chikis Toro
[2019-11-02 11:32] LABS: Glucose Point of Care 101 mg/dL (70-110)
--- NOTE | 2019-11-02 16:07 | PC.NURSE ---
Pt is being discharged home with all personal belongings. Pt IVs removed with caths intact. No further complaints of pain at this time. Pt remains on room air. will meet the pt at the entrance to pick her up. Pt taken exited the unit with staff and via wc.
--- NOTE | 2019-11-02 16:42 | PC.NURSE ---
Pt had her discharge teaching prior to discharge. Called family and told them that the pt left her phone and water rights specialist in the room. Will come and pick it up later this evening, will call ICU and staff will meet him at the entrance to give it to him.
[2019-11-02 16:58] LABS: Coronavirus Lab Test PTC Negative
--- NOTE | 2019-11-05 10:26 | PM.DCS ---
Discharge Providers Date of Admission: 11/01/19 15:47 Date of Discharge: November 02, 2019 Attending Provider at Admission: Georgia Joseph MD Attending Provider at Discharge: Georgia Joseph MD Primary Care Provider: Nel Peacock MD Diagnoses at Discharge Discharge Diagnosis (1) Acute hypotension: Status: Acute (2) Acute kidney injury: Status: Acute (3) Intractable nausea and vomiting: Status: Acute (4) Chest pain: Status: Acute Qualifiers: Chest pain type: unspecified Qualified Code(s): R07.9 - Chest pain, unspecified (5) Dyspnea: Status: Acute (6) Hypoxia: Status: Resolved Reason for Visit Reason for Visit: Reason For Visit: MARY KAY, HYPOTENSION, VOMITING/DIARRHEA Hospital Course Discharge Summary: Erin Kelley is a 49 year old female multiple medical illnesses including seropositive rheumatoid arthritis currently on actemra, prednisone 7.5mg po qd and HCQ, fibromyalgia, hyperlipidemia, type II diabetes, GERD, and irritable bowel syndrome, 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 Presents today with c/o multiple episodes of nausea, vomiting and diarrhea over the past 3 weeks which is getting progressively worse. Also c/o right sided chest pain, progressive SOB over the same period. C/o dry cough and post nasal drip. Presented to her PMD today with above complaints and was noted to have 02 sat of 87% after which she was sent to the ER. Currently 02 sat is 96% on RA, however it is noted to be varying between 89-96% while talking. C/o abdominal discomfort also, however unable to localize. Denies any burning micturition. CT of the abdomen did not crab picker any acute intra abdominal process. Chest x-ray was negative for any infiltrates. When she progressed facemask of her oxygen levels were noted to be consistently above 92% on room air. She improved significantly with IV hydration the next day. She was noted to be walking around in the room smiling and clinically well-appearing. Her nausea resolved with supportive management. She requested discharge and close follow-up with her PCP within the next 4 to 7 days. Since she is otherwise well-appearing and her metabolic abnormalities are improving, I feel it would be reasonable to discharge her at this present time with close PCP follow-up. Stressed importance of repeat CT of the chest to follow-up on her cystic lung changes and possible SHABAZZ. Blood and urine cx remains negative. COvid testing negative. Physical Exam Narrative: EXAM NARRATIVE: GEN: Awake, alert and oriented, no acute distress CVS: S1S2 N RS: CTA B/L Abd: Soft, nt/nd , bs+ ELECTRONIC COMPONENT PROCESSOR: no focal neuro deficits Discharge Data Data Completed and Pending: Completed Studies During Hospitalization Category Date Time Status CT abdomen pelvis w con* [id number] Stat Cat Scan 11/01/19 12:28 Completed XR chest 1V marciano ble [id number] Stat Exams 11/01/19 12:29 Completed Pending at discharge Category Date Time Status Blood Culture Sta t Lab 11/01/19 13:47 Results Vitals: Last Vital Signs Temp 97.8 F 11/02/19 16:00 Pulse 95 11/02/19 16:00 Resp 15 11/02/19 16:00 BP 119/76 11/02/19 16:00 Pulse Ox 95 11/02/19 16:00 Discharge Plan Discharge Patient Disposition: Home, Self-Care Condition: Stable Prescriptions: Continued prednisone 2.5 mg tablet 2.5 mg PO DAILY RF: 0 escitalopram oxalate [Lexapro] 20 mg tablet 20 mg PO DAILY RF: 0 omeprazole 40 mg capsule,delayed release(DR/EC) 40 mg PO DAILY RF: 0 duloxetine [Cymbalta] 30 mg capsule,delayed release(DR/EC) 30 mg PO DAILY 30 Days Qty: 30 RF: 0 oxycodone 15 mg tablet 15 mg PO BID PRN (Reason: pain) 30 Days Qty: 60 RF: 0 tramadol 50 mg tablet 50 mg PO TID PRN (Reason: pain) Qty: 90 RF: 0 cilostazol 50 mg tablet 50 mg PO BID RF: 0 Actemra ACTPen 162 mg/0.9 mL pen injector See Rx Instructions .ROUTE .COMPLEX RF: 0 hydroxychloroquine 200 mg tablet 200 mg PO BID RF: 0 metoprolol succinate 25 mg tablet extended release 24 hr 12.5 mg PO DAILY RF: 0 ergocalciferol (vitamin D2) 1,250 mcg (50,000 unit) capsule 1,250 mcg PO Q7D RF: 0 prednisone 5 mg tablet 5 mg PO DAILY RF: 0 ibandronate [Boniva] 150 mg tablet 150 mg PO .MONTHLY RF: 0 rosuvastatin [Crestor] 20 mg tablet 20 mg PO DAILY RF: 0 Eliquis 5 mg tablet 5 mg PO BID RF: 0 Flovent HFA 110 mcg/actuation HFA aerosol inhaler 1 puff INHALATION BID RF: 0 Combivent Respimat 20-100 mcg/actuation mist 1 puff INHALATION Q6H PRN (Reason: UNKNOWN) RF: 0 ropinirole 2 mg tablet 2 mg PO BEDTIME RF: 0 Lantus U-100 Insulin 100 unit/mL solution 55 unit SUBCUT DAILY RF: 0 clobetasol 0.05 % cream 1 applic TOPICAL BID PRN (Reason: UNKNOWN) RF: 0 clonidine HCl 0.1 mg tablet 0.1 - 0.2 mg PO Q4H PRN (Reason: BLOOD PRESURE) RF: 0 gabapentin 300 mg capsule See Rx Instructions .ROUTE .COMPLEX RF: 0 ondansetron HCl [Zofran] 4 mg tablet 4 mg PO Q8H PRN (Reason: Nausea) RF: 0 nitroglycerin [Nitrostat] 0.4 mg tablet, sublingual 0.4 mg SUBLINGUAL Q5M PRN (Reason: chest pain) 30 Days Qty: 25 RF: 6 isosorbide dinitrate 30 mg tablet 15 mg PO BID 90 Days Qty: 90 RF: 3 albuterol sulfate 2.5 mg /3 mL (0.083 %) Solution For Nebulization 2.5 mg inhalation QID PRN (Reason: UNKNOWN) RF: 0 Aspir-81 81 mg Tablet,Delayed Release (Dr/Ec) 81 mg PO DAILY RF: 0 Nicoderm CQ 21 mg/24 hr Patch 24 Hour 1 patch transdermal PRN RF: 0 EpiPen 2-Carrington 0.3 mg/0.3 mL Auto-Injector See Rx Instructions .ROUTE .COMPLEX RF: 0 Reglan 10 mg Tablet 10 mg PO TID RF: 0 Novolog Flexpen U-100 Insulin 100 unit/mL (3 mL) insulin pen 20 unit SUBCUT TID RF: 0 Glucagon (HCl) Emergency Kit See Rx Instructions .ROUTE .COMPLEX RF: 0 Held enalapril maleate 20 mg tablet 20 mg PO DAILY RF: 0 Hold Instructions: Resume on 11/04/19. Discharge Orders: Discharge Order (Routine); Ordered 11/02/19 Ordered By: Georgia Joseph Referrals: Nel Peacock MD [Primary Care Provider] - 4-7 days Devno Kessler MD [Physician] - 2 weeks Discharge Diet: GI Soft Discharge Activity: Resume usual activity Discharge Date/Time: 11/02/19 16:23 Discharge Attestations Time Spent in Discharge Care*: less than 30 min Quality Metrics Clinical Quality Measures During this hospital stay, did patient experience: None Coding Level of Care Code Acute Associate Director Of Biostatistics for Chg Fwd Diagnoses Acute hypotension I95.9 Acute kidney injury N17.9 Intractable nausea and vomiting R11.2 Chest pain R07.9 Chest pain type: unspecified Dyspnea R06.00 Hypoxia R09.02
== END 2019-11-02 16:23 | disposition home or self-care (01) ==
LOC: ER 16:20 → MEDSURG 16:50 → ICU 17:18
PROVIDERS: Hospitalist; Admitting Provider Student in an Organized Health Care Education/Training Program; Emergency Provider Family Medicine; Family Provider Internal Medicine; PCP Internal Medicine; Visit Provider Student in an Organized Health Care Education/Training Program
DX: I95.9 Hypotension, unspecified (principal); N17.9 Acute kidney failure, unspecified; R11.2 Nausea with vomiting, unspecified; R07.9 Chest pain, unspecified; R06.00 Dyspnea, unspecified; R09.02 Hypoxemia; E86.0 Dehydration; Z79.52 Long term (current) use of systemic steroids; Z79.4 Long term (current) use of insulin; G89.29 Other chronic pain; Z79.891 Long term (current) use of opiate analgesic
CPT/HCPCS: 12345; 36415; 36416; 36600; 71045; 74177; 80048; 80053; 80306; 81001; 82803; 82962; 83036; 83605; 83690; 84443; 84484; 85025; 86140; 87040; 87086; 87635; 96361; 96365; 96372; 96374; 96375; 99284; 99285; G0378; J0696; J1815; J2405; J3535; J7030; J7050; J7512; Q9967

== ENCOUNTER 2019-12-12 11:56 | Outpatient (CLI) | payer MEDICAID, SELFPAY ==
--- NOTE | 2019-12-12 12:10 | XR_ITS ---
WS: [id number] RIGHT FOOT: 3 VIEW(S) TECHNIQUE: AP, oblique and lateral. HISTORY: RIGHT FOOT PAIN COMPARISON: 08/03/2015 No acute fracture or dislocation. Normal tarsal/metatarsal alignment. Linear foreign body extending over a length of 13 mm in the plantar soft tissues adjacent to the firs t IP joint laterally. This has been present since at least 08/03/2015. XR/XR foot RT min 3V* [id number] IMPRESSION: 1. No fractures. 2. Long-term stability of a foreign body adjacent to the first IP joint.
--- NOTE | 2019-12-12 12:10 | XR_ITS ---
WS: [id number] RIGHT ANKLE: 3 VIEW(S) TECHNIQUE: AP, oblique(s) and lateral. HISTORY: RIGHT FOOT PAIN COMPARISON: 01/05/2018 Normal anatomic alignment with no fracture or dislocation. Remote avulsion fracture from the distal fibula similar to the prior study. No significant degenerative changes at the joint spaces. No soft tissue abnormality. XR/XR ankle RT min 3V* [id number] IMPRESSION: No acute fracture. Remote avulsion from the distal fibula.
== END 2019-12-12 11:57 | disposition home or self-care (01) ==
LOC: RADWPI 11:59
PROVIDERS: Family Provider Internal Medicine; PCP Internal Medicine; Visit Provider Nurse Practitioner Family
DX: M79.671 Pain in right foot (principal)
CPT/HCPCS: 73610; 73630

== ENCOUNTER 2019-12-12 16:55 | Emergency (ER) | payer MEDICAID, SELFPAY ==
[2019-12-12 17:01] VITALS: BMI 30.6
[2019-12-12 17:05] VITALS: BP 93/64; PULSE 85; RESP 18; TEMP 36.8; O2SAT 98
--- NOTE | 2019-12-12 17:35 | ED_ITS ---
HPI - Fall General: Chief Complaint: Fall Stated Complaint: FALL Time Seen by Provider: 12/12/19 17:28 History of Present Illness: HPI Narrative: Patient is a 49-year-old female comes to the ED having a fall. She is now experiencing some right rib pain and left ankle/foot pain. Patient says she lost her balance and her left foot rolled and she then landed on the ground on her right side. She describes the right rib pain as pleuritic. The left ankle pain is right around the lateral malleolus and lateral side of foot. Pain is rated a 7 out of 10. Denies any head trauma or loss of consciousness. Associated symptoms-after fall: Denies abdominal pain, chest pain, headache(s), hematuria or neck pain Review of Systems Const: Denies: fever(s), chills or fatigue Eyes: Denies: change in vision or eye discomfort ENMT: Denies: throat pain, odynophagia, nasal discharge or nasal congestion Card: Reports: other (Pleuritic right rib pain.); Denies: chest pain, palpitations, edema, swelling of feet/ankles, dyspnea on exertion or orthopnea Resp: Denies: dyspnea, productive cough or non-productive cough GI: Denies: abdominal pain, nausea, vomiting, diarrhea, constipation or hematochezia : Denies: flank pain, dysuria or hematuria Musc: Reports: extremity pain (left foot and ankle) and extremity swelling (left foot and akle); Denies: neck pain or back pain Skin/Breast: Denies: rash or new lesions Neuro: Denies: headache(s), numbness in extremities or weakness in extremities PFS ED PFSH: Medical History Cervical spondylosis DDD (degenerative disc disease), cervical Diabetes Essential hypertension Fibromyalgia Long-term current use of opiate analgesic Osteoporosis Pain management contract signed Pain, joint, multiple sites Tobacco use disorder Surgical History H/O dilation and curettage Hx laparoscopic cholecystectomy Hx of section (~1989) Hx of hysterectomy Family History Mother Stroke Cancer SKIN CANCER Sister Stroke Other Diabetes Myocardial infarct Denies family history of Anesthesia complication Bleeding disorder Social History Smoking and tobacco status: current every day smoker cigarettes Packs smoked per day: 0.5 Alcohol intake: current Alcohol intake frequency: holidays/special occasions only Caregiver/support person: Yes Lives independently: Yes Household members: spouse Marital status: History of recent travel: No Physical Exam Const: COMMON NORMALS: no acute distress, patient oriented x3 and alert GENERAL APPEARANCE: cooperative and comfortable HENMT: COMMON NORMALS: normocephalic HEAD & SCALP: normocephalic MOUTH: Normal oral and palatal mucosa present THROAT: posterior oropharynx normal and uvula midline Eye: COMMON NORMALS: Equal, round and reactive pupils present PUPIL: Yes Equal, round and reactive pupils present Neck/C-Spine: COMMON NORMALS: supple GENERAL: Yes normal visual inspection Chest: CHEST: Yes tenderness rib right anterior-axillary line involving the 7th rib, involving the 8th rib and involving the 9th rib Resp: COMMON NORMALS: normal respiratory effort, No retractions, No use of accessory muscles and clear to auscultation bilaterally EFFORT & INSPECTION: Yes able to speak in complete sentences, No abnormal respiratory pattern, No tachypneic, No respiratory distress and No labored AUSCULTATION: clear to auscultation bilaterally Cardio: COMMON NORMALS: regular rate, regular rhythm, S1 normal heart sound present, S2 normal heart sound present, No gallops present (Cardio), No clicks present (Cardio), No murmurs present (Cardio) and Peripheral pulses 2+ throughout RATE: regular rate RHYTHM: regular rhythm HEART SOUNDS: S1 normal heart sound present and S2 normal heart sound present PERIPHERAL PULSES: Peripheral pulses 2+ throughout GI: COMMON NORMALS: Normal to inspection, nondistended, normoactive bowel sounds present, Soft to palpation, non-tender and no masses PALPATION: Yes Soft to palpation : COMMON NORMALS: Yes no CVA tenderness BLADDER/KIDNEY EXAM: Yes no CVA tenderness Back/Pelvis: COMMON NORMALS: no CVA tenderness Extremity: LEFT LOWER EXTREMITY: Yes ankle joint Left ankle: Yes inspection (Some mild swelling, but no deformity, ecchymosis or erythema.), Yes palpation (Tenderness upon palpation of the lateral malleolus.), Yes ROM (Limited due to pain.) and Yes neurovascular exam (Intact) and Yes foot & digits Left foot and digits: Yes inspection (Mild swelling on the lateral aspect of foot.), Yes palpation (Mild tenderness upon palpation.) and Yes neurovascular exam (intact) Neuro: COMMON NORMALS: patient oriented x3 and moves all extremities SENSORIUM/ORIENTATION: Yes alert Skin: COMMON NORMALS: no rashes or lesions noted GENERAL SKIN EXAM: no rashes or lesions noted and dry skin Course Vital Signs: Vital signs: Vital Signs Temperature 98.2 F 12/12/19 17:05 Pulse Rate 85 12/12/19 18:47 Respiratory Rate 14 12/12/19 18:47 Blood Pressure 133/76 12/12/19 18:47 Pulse Oximetry 97 12/12/19 18:47 MDM - Fall MDM Narrative: Medical decision making narrative: Patient is a 49-year-old female who comes into the ED with right rib pain and left ankle pain after having a fall. Right rib x-ray was performed no visible rib fractures were seen. Left ankle x-ray showed a avulsion fracture of the lateral malleolus of the left fibula. Patient diagnosed with a avulsion fracture of left lateral malleolus of the fibula and right rib pain. Patient was then placed in a boot for her left foot and told to follow-up with her PCP in the next week. Patient is currently on tramadol and oxycodone, so I told her to continue taking her previously prescribed pain meds as needed. Rest, ice and elevate left foot. Patient understood and agreed with plan. Imaging Data^: CXR: Attestation: I personally reviewed and interpreted this imaging study as follows: My impression: Right rib x-ray no acute fractures or findings. Pending final radiology report. Xray Ortho: Attestation: I personally reviewed and interpreted this imaging study as follows: My impression: Left ankle x-ray showed closed avulsion fracture of lateral malleolus. Pending final radiology report. Discharge Plan Discharge Patient Disposition: Home, Self-Care Clinical Impression: Rib pain on right side Avulsion fracture of lateral malleolus of left fibula Qualifiers: Encounter type: initial encounter Fracture type: closed Qualified Code(s): S82.62XA - Displaced fracture of lateral malleolus of left fibula, initial encounter for closed fracture Condition: Stable Prescriptions: No Action prednisone 2.5 mg tablet 2.5 mg PO DAILY RF: 0 escitalopram oxalate [Lexapro] 20 mg tablet 20 mg PO DAILY RF: 0 omeprazole 40 mg capsule,delayed release(DR/EC) 40 mg PO DAILY RF: 0 duloxetine [Cymbalta] 30 mg capsule,delayed release(DR/EC) 30 mg PO DAILY 30 Days Qty: 30 RF: 0 oxycodone 15 mg tablet 15 mg PO BID PRN (Reason: pain) 30 Days Qty: 60 RF: 0 tramadol 50 mg tablet 50 mg PO TID PRN (Reason: pain) Qty: 90 RF: 0 cilostazol 50 mg tablet 50 mg PO BID RF: 0 Actemra ACTPen 162 mg/0.9 mL pen injector See Rx Instructions .ROUTE .COMPLEX RF: 0 hydroxychloroquine 200 mg tablet 200 mg PO BID RF: 0 metoprolol succinate 25 mg tablet extended release 24 hr 12.5 mg PO DAILY RF: 0 prednisone 5 mg tablet 5 mg PO DAILY RF: 0 rosuvastatin [Crestor] 20 mg tablet 20 mg PO DAILY RF: 0 Eliquis 5 mg tablet 5 mg PO BID RF: 0 Flovent HFA 110 mcg/actuation HFA aerosol inhaler 1 puff INHALATION BID RF: 0 Combivent Respimat 20-100 mcg/actuation mist 1 puff INHALATION Q6H PRN (Reason: UNKNOWN) RF: 0 ropinirole 2 mg tablet 2 mg PO BEDTIME RF: 0 Lantus U-100 Insulin 100 unit/mL solution 55 unit SUBCUT DAILY RF: 0 enalapril maleate 20 mg tablet 20 mg PO DAILY RF: 0 Hold Instructions: Resume on 11/04/19. clobetasol 0.05 % cream 1 applic TOPICAL BID PRN (Reason: UNKNOWN) RF: 0 gabapentin 300 mg capsule See Rx Instructions .ROUTE .COMPLEX RF: 0 ondansetron HCl [Zofran] 4 mg tablet 4 mg PO Q8H PRN (Reason: Nausea) RF: 0 nitroglycerin [Nitrostat] 0.4 mg tablet, sublingual 0.4 mg SUBLINGUAL Q5M PRN (Reason: chest pain) 30 Days Qty: 25 RF: 6 isosorbide dinitrate 30 mg tablet 15 mg PO BID 90 Days Qty: 90 RF: 3 albuterol sulfate 2.5 mg /3 mL (0.083 %) Solution For Nebulization 2.5 mg inhalation QID PRN (Reason: UNKNOWN) RF: 0 aspirin [Aspir-81] 81 mg Tablet,Delayed Release (Dr/Ec) 81 mg PO DAILY RF: 0 nicotine [Nicoderm CQ] 21 mg/24 hr Patch 24 Hour 1 patch transdermal PRN RF: 0 epinephrine [EpiPen 2-Carrington] 0.3 mg/0.3 mL Auto-Injector See Rx Instructions .ROUTE .COMPLEX RF: 0 insulin aspart U-100 [Novolog Flexpen U-100 Insulin] 100 unit/mL (3 mL) insulin pen 20 unit SUBCUT TID RF: 0 Glucagon (HCl) Emergency Kit See Rx Instructions .ROUTE .COMPLEX RF: 0 Discharge Orders: Discharge Order (Routine); Ordered 12/12/19 Ordered By: Darren Elias Referrals: Nel Peacock MD [Primary Care Provider] - Discharge Diet: Regular Discharge Activity: Limit activity as instructed and Use walker/crutches as instructed Patient Instructions: Fractures - Ankle Activity Restrictions/Additional Instructions: call your PCP tomorrow morning to set up a follow-up appointment to reevaluate left ankle in about 5-7 days. Wear boot and you can use crutches to help ambulate for the first 2 weeks. After 2 weeks, you can slowly start removing boot and increasing activity and weightbearing as tolerated. You can always put boot back on if going for longer walks or if you will be up on your feet all day. Take your previously prescribed paim medications. Rest ice and elevate as well. Apply ice on sore right rib area and rest. Coding Level of Care Code ED Mobile Phone Salesperson for Chikis Fwtio Exam Comprehensive
--- NOTE | 2019-12-12 17:59 | XR_ITS ---
WS: [id number] XR ankle LT min 3V* [id number] REASON FOR EXAM: injury with tenderness around ankle FINDINGS: An os fibularis is noted. The ankle mortise is normal. There is no fractures or other dyscrasias. The tibia, fibula, and talus show no fractures or displacement. The posterior shelf the tibia was normal. XR/XR ankle LT min 3V* [id number] IMPRESSION: Negative left ankle.
--- NOTE | 2019-12-12 17:59 | XR_ITS ---
WS: [id number] XR ribs RT mn 3V w CXR1V [id number] REASON FOR EXAM: fall with right rib pain, pleuritic pain FINDINGS: The AP chest shows normal lung rao no pneumothorax no pneumonia and no pleural effusion The right rib cage appears to be intact there is no definite fractures or displacement seen. There is calcification seen surrounding the head of the right humerus. XR/XR ribs RT mn 3V w CXR1V [id number] IMPRESSION: Negative chest No definite rib fractures identified.
--- NOTE | 2019-12-12 18:04 | XR_ITS ---
WS: [id number] XR foot LT 2V [id number] REASON FOR EXAM: injury with pain FINDINGS: The phalanges, metatarsals, tarsals are normal. The calcaneus shows no abnormalities. No fractures or dislocations are seen. XR/XR foot LT 2V [id number] IMPRESSION: Negative left foot for active pathology
[2019-12-12] MEDS: HYDROcodone-acetaminophen 7.5-325 mg Tablet 1 TAB PO (18:45)
[2019-12-12 18:47] VITALS: BP 133/76; PULSE 85; RESP 14; O2SAT 97
[2019-12-12 20:17] VITALS: BP 128/76; PULSE 75; RESP 16; O2SAT 93
--- NOTE | 2019-12-13 11:08 | DCPLANNER ---
software asset manager called the ortho clinic to refer patients chart for follow up with the clinic. software asset manager spoke with Jennifer, gave clinic patients information. software asset manager was told that patients information would be printed and reviewed. Clinic will call immigration case worker and patient with appointment information.
--- NOTE | 2019-12-13 11:27 | PC.NURSE ---
pt. was given crutches and voiced understanding of use of the crutches, and she had a boot placed on her left foot an instructions were given as to the use of the boot.
--- NOTE | 2019-12-25 08:01 | DCPLANNER ---
Patient had a follow up appointment scheduled for 12.19.19 with ortho. Patient did attend the appointment.
== END 2019-12-12 20:15 | disposition home or self-care (01) ==
PROVIDERS: Emergency Provider Physician Assistant; Family Provider Internal Medicine; PCP Internal Medicine
DX: R07.81 Pleurodynia (principal); S82.62XA Displaced fracture of lateral malleolus of left fibula, initial encounter for closed fracture; Z79.01 Long term (current) use of anticoagulants; Z79.4 Long term (current) use of insulin; Z79.82 Long term (current) use of aspirin; W19.XXXA Unspecified fall, initial encounter; E11.9 Type 2 diabetes mellitus without complications; I10 Essential (primary) hypertension; F17.210 Nicotine dependence, cigarettes, uncomplicated
CPT/HCPCS: 12345; 71101; 73610; 73620; 99282; 99283; E0114

== ENCOUNTER → 2019-12-19 10:42 | Outpatient (BNVA) | payer MEDICAID, SELFPAY | PROVIDERS: Family Provider Internal Medicine; PCP Internal Medicine; Referring Provider Physician Assistant; Visit Provider Podiatrist Foot & Ankle Surgery | DX: S82.62XA Displaced fracture of lateral malleolus of left fibula, initial encounter for closed fracture (principal); X58.XXXA Exposure to other specified factors, initial encounter | CPT/HCPCS: 73610; 73620 ==

== ENCOUNTER 2019-12-31 10:45 | Outpatient (CLI) | payer MEDICAID, SELFPAY | END 2019-12-31 10:46 | disposition home or self-care (01) | LOC: SPT 10:46 | PROVIDERS: Family Provider Internal Medicine; PCP Internal Medicine; Visit Provider Podiatrist Foot & Ankle Surgery | DX: Z46.89 Encounter for fitting and adjustment of other specified devices (principal); S82.62XD Displaced fracture of lateral malleolus of left fibula, subsequent encounter for closed fracture with routine healing; X58.XXXD Exposure to other specified factors, subsequent encounter | CPT/HCPCS: 97760; L1902 ==

== ENCOUNTER → 2020-01-09 09:05 | Outpatient (BNVA) | payer MEDICAID, SELFPAY | PROVIDERS: Family Provider Internal Medicine; PCP Internal Medicine; Visit Provider Anesthesiology | DX: M47.812 Spondylosis without myelopathy or radiculopathy, cervical region (principal); M50.30 Other cervical disc degeneration, unspecified cervical region; M50.90 Cervical disc disorder, unspecified, unspecified cervical region; M47.816 Spondylosis without myelopathy or radiculopathy, lumbar region; M54.9 Dorsalgia, unspecified; F17.210 Nicotine dependence, cigarettes, uncomplicated; Z79.891 Long term (current) use of opiate analgesic; Z71.6 Tobacco abuse counseling | CPT/HCPCS: 99214 ==

== ENCOUNTER 2020-01-27 11:03 | Emergency (ER) | payer MEDICAID, SELFPAY ==
[2020-01-27 11:22] VITALS: BMI 31.6
[2020-01-27 11:26] VITALS: BP 138/71; PULSE 86; RESP 18; TEMP 36.8; O2SAT 86
--- NOTE | 2020-01-27 11:34 | XR_ITS ---
WS: [id number] RIGHT KNEE: 3 VIEW(S) TECHNIQUE: AP, oblique(s) and lateral. HISTORY: fall/injury COMPARISON: None available. No fracture or dislocation. No joint space narrowing or osteophytes. No joint effusion. No soft tissue abnormality. XR/XR knee RT 3V* [id number] IMPRESSION: Normal RIGHT knee.
--- NOTE | 2020-01-27 11:34 | XR_ITS ---
WS: [id number] RIGHT TIBIA-FIBULA 2 VIEWS HISTORY: fall/injury COMPARISON: None available. Seen best on the lateral projection is a new nondisplaced oblique fractures of the distal, posterior fibula. A large amount of adjacent soft tissue edema. The remaining tibia and fibula are intact. XR/XR tibia fibula RT 2V [id number] IMPRESSION: Seen on the lateral projection is a nondisplaced acute-appearing fracture poste rior distal fibula.
--- NOTE | 2020-01-27 11:34 | XR_ITS ---
WS: [id number] RIGHT ANKLE: 3 VIEW(S) TECHNIQUE: AP, oblique(s) and lateral. HISTORY: fall/injury COMPARISON: 12/12/2019 Increasing soft tissue edema over the lateral malleolus. Patient has a known well-corticated avulsion fracture from the distal fibula. There is a new avulsion fracture at the medial malleolus. Large joint effusion. No significant degenerative changes at the joint spaces. XR/XR ankle RT min 3V* [id number] IMPRESSION: 1. New tiny avulsion fracture from the medial malleolus. 2. New and increasing soft tissue edema, greatest laterally with large joint e ffusion. 3. Remote avulsion fracture distal fibula.
--- NOTE | 2020-01-27 11:35 | W.ED.FALL ---
HPI - Fall General: Chief Complaint: Fall Stated Complaint: FALL Time Seen by Provider: 01/27/20 11:23 Source: patient Mode of arrival: wheelchair Limitations: no limitations History of Present Illness: HPI Narrative: Patient is a 49-year-old female who presents to ED today for evaluation following a fall. Patient states she tripped and fell in a hole in her yard and injured her right lower extremity. Patient states she was initially ambulatory after the event but now cannot bear weight because of the pain. She reports no other injuries during the fall. Did not strike her head or lose consciousness. No neck pain. She suffers from chronic back pain is currently at her baseline MD complaint: fall Onset (ago): hour(s) Fall from: standing Fall witnessed: yes, by family Place fall occurred: home Loss of consciousness: None Prolonged down time: no Symptoms prior to fall: none Context: tripped/slipped Location of injury - extremities: Right: knee, lower leg and ankle Associated symptoms-after fall: Reports no associated symptoms; Denies neck pain Review of Systems Musc: Reports: extremity pain (R LE) and joint pain (R knee, R ankle); Denies: neck pain Neuro: Denies: numbness in extremities, weakness in extremities or sensory changes PFSH ED PFSH: Medical History (Updated 01/27/20 @ 12:10 by JEANNE Joaquin) Cervical spondylosis DDD (degenerative disc disease), cervical Diabetes Encounter for long-term (current) use of NSAIDs Essential hypertension Fibromyalgia Long-term current use of opiate analgesic Osteoporosis Pain management contract signed Pain, joint, multiple sites Tobacco use disorder Surgical History H/O dilation and curettage Hx laparoscopic cholecystectomy Hx of section (~1989) Hx of hysterectomy Family History Mother Stroke Cancer SKIN CANCER Sister Stroke Other Diabetes Myocardial infarct Denies family history of Anesthesia complication Bleeding disorder Social History (Updated 01/09/20 @ 09:17 by Gay Gonsalez LPN) Smoking and tobacco status: current every day smoker cigarettes [ Other cigarette details: 6 CIGS DAILY PER PATIENT REPORT ] Alcohol intake: current Alcohol intake frequency: holidays/special occasions only Caregiver/support person: Yes Lives independently: Yes Household members: spouse Marital status: History of recent travel: No Physical Exam Const: COMMON NORMALS: no acute distress, patient oriented x3, no limitations and alert Resp: COMMON NORMALS: normal respiratory effort and clear to auscultation bilaterally AUSCULTATION: clear to auscultation bilaterally Cardio: COMMON NORMALS: regular rate and regular rhythm RATE: regular rate RHYTHM: regular rhythm Neuro: COMMON NORMALS: patient oriented x3 SENSORIUM/ORIENTATION: Yes alert Course Vital Signs: Vital signs: Vital Signs Temperature 98.3 F 01/27/20 11:26 Pulse Rate 86 01/27/20 11:26 Respiratory Rate 18 01/27/20 11:26 Blood Pressure 138/71 01/27/20 11:26 Pulse Oximetry 86 L 01/27/20 11:26 MDM - Fall MDM Narrative: Medical decision making narrative: Patient noted to be hypoxic in triage at 86%. Patient tells me she is an every day smoker. She tells me she normally uses nebulizers at home. During my examination patient is satting 88 to 89%. During auscultation and having the patient take deep breaths her oxygen will rise to 94%. She has no complaints of shortness of breath, cough, fevers. She tells me she does not want any evaluation for her breathing today. She clinically is in no distress. Will splint her R LE and have her followup with orthopedics. Imaging Data^: R ankle XR: Radiologist's impression: [address] [address] XRay Report Signed Patient: Erin Kelley Unit #: [id number] : 1970 Age/Sex: 49 / F ADM Date: 01/27/20 Loc: ER Room/Bed: Attending Dr: Ordering Provider/Ordering MD: Manda Puentes Date of Service: 01/27/20 Procedure(s): XR ankle RT min 3V* 71674 Accession Number(s): [id number] Report Number: [id number] WS: [id number] RIGHT ANKLE: 3 VIEW(S) TECHNIQUE: AP, oblique(s) and lateral. HISTORY: fall/injury COMPARISON: 12/12/2019 Increasing soft tissue edema over the lateral malleolus. Patient has a known well-corticated avulsion fracture from the distal fibula. There is a new avulsion fracture at the medial malleolus. Large joint effusion. No significant degenerative changes at the joint spaces. XR/XR ankle RT min 3V* 78651 IMPRESSION: 1. New tiny avulsion fracture from the medial malleolus. 2. New and increasing soft tissue edema, greatest laterally with large joint effusion. 3. Remote avulsion fracture distal fibula. Dictated By: Nidia Sr DO Signed By: Nidia Sr DO Signed Date/Time: 01/27/20 1200 R tib/fib XR: Radiologist's impression: [place] [address] XRay Report Signed Patient: Erin Kelley Unit #: [id number] : 1970 Age/Sex: 49 / F ADM Date: 01/27/20 Loc: ER Room/Bed: Attending Dr: Ordering Provider/Ordering MD: Manda Puentes Date of Service: 01/27/20 Procedure(s): XR tibia fibula RT 2V 61673 Accession Number(s): [id number] Report Number: [id number] WS: [id number] RIGHT TIBIA-FIBULA 2 VIEWS HISTORY: fall/injury COMPARISON: None available. Seen best on the lateral projection is a new nondisplaced oblique fractures of the distal, posterior fibula. A large amount of adjacent soft tissue edema. The remaining tibia and fibula are intact. XR/XR tibia fibula RT 2V 61789 IMPRESSION: Seen on the lateral projection is a nondisplaced acute-appearing fracture posterior distal fibula. Dictated By: Nidia Sr DO Signed By: Nidia Sr DO Signed Date/Time: 01/27/20 1202 DD/ 1200 R knee XR: Radiologist's impression: [place] [address] XRay Report Signed Patient: Erin Kelley Unit #: [id number] : 1970 Age/Sex: 49 / F ADM Date: 01/27/20 Loc: ER Room/Bed: Attending Dr: Ordering Provider/Ordering MD: aMnda Puentes Date of Service: 01/27/20 Procedure(s): XR knee RT 3V* 40378 Accession Number(s): [id number] Report Number: [id number] WS: [id number] RIGHT KNEE: 3 VIEW(S) TECHNIQUE: AP, oblique(s) and lateral. HISTORY: fall/injury COMPARISON: None available. No fracture or dislocation. No joint space narrowing or osteophytes. No joint effusion. No soft tissue abnormality. XR/XR knee RT 3V* 36671 IMPRESSION: Normal RIGHT knee. Dictated By: Nidia Sr DO Signed By: Nidia Sr DO Signed Date/Time: 01/27/201201 DD/ 01 Discharge Plan Discharge Patient Disposition: Home, Self-Care Clinical Impression: Fracture of lateral malleolus of right ankle Qualifiers: Encounter type: initial encounter Fracture type: closed Fracture alignment: nondisplaced Qualified Code(s): S82.64XA - Nondisplaced fracture of lateral malleolus of right fibula, initial encounter for closed fracture Fracture of medial malleolus of right tibia Qualifiers: Encounter type: initial encounter Fracture type: closed Fracture alignment: nondisplaced Qualified Code(s): S82.54XA - Nondisplaced fracture of medial malleolus of right tibia, initial encounter for closed fracture Condition: Stable Prescriptions: No Action prednisone 2.5 mg tablet 2.5 mg PO DAILY RF: 0 escitalopram oxalate [Lexapro] 20 mg tablet 20 mg PO DAILY RF: 0 omeprazole 40 mg capsule,delayed release(DR/EC) 40 mg PO DAILY RF: 0 tramadol 50 mg tablet 50 mg PO TID PRN (Reason: pain) Qty: 90 RF: 0 trazodone 50 mg tablet 50 mg PO .BEDTIME RF: 0 oxycodone 15 mg tablet 15 mg PO BID PRN (Reason: pain) 30 Days Qty: 60 RF: 0 oxycodone 15 mg tablet 15 mg PO BID PRN (Reason: pain) 30 Days Qty: 60 RF: 0 cilostazol 50 mg tablet 50 mg PO BID RF: 0 Actemra ACTPen 162 mg/0.9 mL pen injector See Rx Instructions .ROUTE .COMPLEX RF: 0 hydroxychloroquine 200 mg tablet 200 mg PO BID RF: 0 metoprolol succinate 25 mg tablet extended release 24 hr 12.5 mg PO DAILY RF: 0 prednisone 5 mg tablet 5 mg PO DAILY RF: 0 rosuvastatin [Crestor] 20 mg tablet 20 mg PO DAILY RF: 0 Eliquis 5 mg tablet 5 mg PO BID RF: 0 Flovent HFA 110 mcg/actuation HFA aerosol inhaler 1 puff INHALATION BID RF: 0 Combivent Respimat 20-100 mcg/actuation mist 1 puff INHALATION Q6H PRN (Reason: UNKNOWN) RF: 0 ropinirole 2 mg tablet 2 mg PO BEDTIME RF: 0 Lantus U-100 Insulin 100 unit/mL solution 55 unit SUBCUT DAILY RF: 0 enalapril maleate 20 mg tablet 20 mg PO DAILY RF: 0 Hold Instructions: Resume on 11/04/19. clobetasol 0.05 % cream 1 applic TOPICAL BID PRN (Reason: UNKNOWN) RF: 0 gabapentin 300 mg capsule See Rx Instructions .ROUTE .COMPLEX RF: 0 ondansetron HCl [Zofran] 4 mg tablet 4 mg PO Q8H PRN (Reason: Nausea) RF: 0 (DME) ASO ankle brace See Rx Instructions .Route .MEDSUPPLY Qty: 1 RF: 0 nitroglycerin [Nitrostat] 0.4 mg tablet, sublingual 0.4 mg SUBLINGUAL Q5M PRN (Reason: chest pain) 30 Days Qty: 25 RF: 6 isosorbide dinitrate 30 mg tablet 15 mg PO BID 90 Days Qty: 90 RF: 3 duloxetine [Cymbalta] 30 mg capsule,delayed release(DR/EC) 30 mg PO DAILY 30 Days Qty: 30 RF: 0 albuterol sulfate 2.5 mg /3 mL (0.083 %) Solution For Nebulization 2.5 mg inhalation QID PRN (Reason: UNKNOWN) RF: 0 aspirin [Aspir-81] 81 mg Tablet,Delayed Release (Dr/Ec) 81 mg PO DAILY RF: 0 nicotine [Nicoderm CQ] 21 mg/24 hr Patch 24 Hour 1 patch transdermal PRN RF: 0 epinephrine [EpiPen 2-Carrington] 0.3 mg/0.3 mL Auto-Injector See Rx Instructions .ROUTE .COMPLEX RF: 0 insulin aspart U-100 [Novolog Flexpen U-100 Insulin] 100 unit/mL (3 mL) insulin pen 20 unit SUBCUT TID RF: 0 Glucagon (HCl) Emergency Kit See Rx Instructions .ROUTE .COMPLEX RF: 0 Discharge Orders: Discharge Order (Routine); Ordered 01/27/20 Ordered By: Manda Puentes Referrals: Nel Peacock MD [Primary Care Provider] - Activity Restrictions/Additional Instructions: As discussed use your crutches to be nonweightbearing until told otherwise by orthopedics. Case management should contact you shortly to set you up with this appointment. Ice and elevate the extremity. Keep the abrasions clean with warm soap and water. Continue your normal pain medications as needed for discomfort. Coding Level of Care Code ED Tower Loader Operator for [place] Fwd Exam Expanded Problem Focused
--- NOTE | 2020-01-27 12:41 | DCPLANNER ---
warehouse manager was asked to schedule a follow up appointment for patient with ortho. warehouse manager called the ortho clinic, spoke with Pat, gave clinic patients information. warehouse manager was told that patients information would be printed and reviewed. Clinic will call patient with appointment information.
[2020-01-27 12:51] VITALS: BP 138/74; PULSE 92; RESP 20; O2SAT 91
--- NOTE | 2020-01-28 12:23 | DCPLANNER ---
Patient has a follow up appointment scheduled for , January 30, 2020 at 8:[address] Sales. Clinic will call patient with appointment information.
--- NOTE | 2020-01-30 11:53 | DCPLANNER ---
Patient did attend follow up appointment with patient with ortho scheduled for 01.30.20.
== END 2020-01-27 12:57 | disposition home or self-care (01) ==
PROVIDERS: Emergency Provider Physician Assistant; PCP Internal Medicine
DX: S82.64XA Nondisplaced fracture of lateral malleolus of right fibula, initial encounter for closed fracture (principal); S82.54XA Nondisplaced fracture of medial malleolus of right tibia, initial encounter for closed fracture; Z79.01 Long term (current) use of anticoagulants; Z79.4 Long term (current) use of insulin; E11.9 Type 2 diabetes mellitus without complications; I10 Essential (primary) hypertension; F17.210 Nicotine dependence, cigarettes, uncomplicated; W01.0XXA Fall on same level from slipping, tripping and stumbling without subsequent striking against object, initial encounter
CPT/HCPCS: 12345; 29515; 73562; 73590; 73610; 99281; 99283; A6446

== ENCOUNTER → 2020-01-29 08:25 | Outpatient (BNVA) | payer MEDICAID, SELFPAY | PROVIDERS: Family Provider Internal Medicine; PCP Internal Medicine; Visit Provider Anesthesiology | DX: M54.41 Lumbago with sciatica, right side (principal); M54.42 Lumbago with sciatica, left side; M47.816 Spondylosis without myelopathy or radiculopathy, lumbar region; M54.9 Dorsalgia, unspecified; M47.812 Spondylosis without myelopathy or radiculopathy, cervical region; M50.30 Other cervical disc degeneration, unspecified cervical region; F17.210 Nicotine dependence, cigarettes, uncomplicated; Z79.891 Long term (current) use of opiate analgesic | CPT/HCPCS: 99213 ==

== ENCOUNTER → 2020-01-30 08:31 | Outpatient (BNVA) | payer MEDICAID, SELFPAY | PROVIDERS: Family Provider Internal Medicine; PCP Internal Medicine; Visit Provider Podiatrist Foot & Ankle Surgery | DX: S82.62XA Displaced fracture of lateral malleolus of left fibula, initial encounter for closed fracture (principal); S82.64XA Nondisplaced fracture of lateral malleolus of right fibula, initial encounter for closed fracture; S82.54XA Nondisplaced fracture of medial malleolus of right tibia, initial encounter for closed fracture; M25.572 Pain in left ankle and joints of left foot; X58.XXXA Exposure to other specified factors, initial encounter | CPT/HCPCS: 73610 ==

== ENCOUNTER 2020-01-30 10:50 | Outpatient (CLI) | payer MEDICAID, SELFPAY | END 2020-01-30 10:51 | disposition home or self-care (01) | LOC: SPT 10:50 | PROVIDERS: Family Provider Internal Medicine; PCP Internal Medicine; Visit Provider Podiatrist Foot & Ankle Surgery | DX: Z46.89 Encounter for fitting and adjustment of other specified devices (principal); S82.62XD Displaced fracture of lateral malleolus of left fibula, subsequent encounter for closed fracture with routine healing; X58.XXXD Exposure to other specified factors, subsequent encounter | CPT/HCPCS: 97760; L4361 ==

== ENCOUNTER 2020-02-05 14:10 | Outpatient (CLI) | payer MEDICAID, SELFPAY ==
--- NOTE | 2020-02-05 14:30 | CT_ITS ---
WS: [id number] CT RIGHT ANKLE NONCONTRAST, 3-D reformats. HISTORY: right ankle injury Technique: All CT scans at [facility] use at least one of these dose optimization techniq ues: automated exposure control; mA and/or kV adjustment per patient size (includes targeted exams wh ere dose is matched to clinical indication); or iterative reconstruction. DLP: 444.75 mGycm COMPARISON: 01/30/2020 Acute nonhealed transverse fracture from the distal fibula. There are multiple small fragments distal to the fibula. These fragments are irregular shaped and likely acute. There is an additional osseous fragment which is well-circumscribed and probably from an old injury. No significant displacement. N o callus across the acute fracture. There is a small avulsion fracture which is age-indeterminate fro m the medial malleolus. No osteochondral defects along the talar dome. Normal alignment at the tibiotalar joint space. Large amount of soft tissue edema over the lateral malleolus. There is additional edema circumferenti ally surrounding the ankle. CT/CT ankle RT wo con* 13000 IMPRESSION: 1. Nondisplaced fracture distal fibula with adjacent multiple tiny osseous fra gments. 2. Additional osseous fragments distal to the fibula from old injury. 3. Large amount of soft tissue edema laterally. 4. Age-indeterminate tiny avulsion fracture from the medial malleolus.
== END 2020-02-05 14:11 | disposition home or self-care (01) ==
LOC: RADWPI 14:15
PROVIDERS: Family Provider Internal Medicine; PCP Internal Medicine; Visit Provider Podiatrist Foot & Ankle Surgery
DX: S99.911A Unspecified injury of right ankle, initial encounter (principal); S82.831A Other fracture of upper and lower end of right fibula, initial encounter for closed fracture; S82.51XA Displaced fracture of medial malleolus of right tibia, initial encounter for closed fracture; R60.0 Localized edema; X58.XXXA Exposure to other specified factors, initial encounter
CPT/HCPCS: 73700

== ENCOUNTER 2020-02-19 09:10 | Emergency (ER) | payer MEDICAID, SELFPAY ==
[2020-02-19 09:15] VITALS: BMI 31.6
[2020-02-19 09:18] VITALS: BP 163/97; PULSE 77; RESP 18; TEMP 36.8; O2SAT 97
--- NOTE | 2020-02-19 09:34 | W.ED.FALL ---
HPI - Fall General: Chief Complaint: Fall Stated Complaint: Fall Time Seen by Provider: 02/19/20 09:15 History of Present Illness: HPI Narrative: Patient presents the ER with a laceration to the right cheek. Patient states she was sent on the toilet this morning and she fell asleep and struck her face on some metal that was on the wall and the right side. Denies any pain or other problems. MD complaint: fall Onset (ago): minute(s) Fall from: other (Sitting on toilet) Fall witnessed: no Place fall occurred: home Loss of consciousness: None Symptoms prior to fall: none Context: other (Fell asleep) Location of injury: face Associated symptoms-after fall: Denies abdominal pain, chest pain or headache(s) Review of Systems Const: Denies: fever(s), chills or body aches Eyes: Denies: change in vision or blurry vision ENMT: Denies: throat pain or nasal congestion Card: Denies: chest pain or dyspnea on exertion Resp: Denies: dyspnea, productive cough or non-productive cough GI: Denies: abdominal pain, nausea or vomiting Musc: Denies: extremity pain Skin/Breast: Reports: other (Laceration right cheek); Denies: rash Neuro: Denies: headache(s) Psych: Denies: anxiety or depression Jewel/Lymph: Denies: easy bruising PFSH ED PFSH: Medical History (Updated 02/10/20 @ 20:10 by Anthony Sales DPM) Cervical spondylosis DDD (degenerative disc disease), cervical Diabetes Encounter for long-term (current) use of NSAIDs Essential hypertension Fibromyalgia Long-term current use of opiate analgesic Osteoporosis Pain management contract signed Pain, joint, multiple sites Tobacco use disorder Surgical History H/O dilation and curettage Hx laparoscopic cholecystectomy Hx of section (~1989) Hx of hysterectomy Family History Mother Stroke Cancer SKIN CANCER Sister Stroke Other Diabetes Myocardial infarct Denies family history of Anesthesia complication Bleeding disorder Social History Smoking and tobacco status: current every day smoker cigarettes Packs smoked per day: 1 Years cigarettes smoked: 40 Second hand smoke exposure: Yes Alcohol intake: current Alcohol intake frequency: holidays/special occasions only Caregiver/support person: Yes Lives independently: Yes Household members: spouse Marital status: Current occupational status: disabled History of recent travel: No Current gender identity: Female Physical Exam Const: COMMON NORMALS: no acute distress, average body habitus and patient oriented x3 HENMT: COMMON NORMALS: normocephalic HEAD & SCALP: normal to inspection and normocephalic FACE & SINUS: normal facial exam Eye: COMMON NORMALS: conjunctivae normal GENERAL EYE: appearance normal, both eyes and all related structures CONJUNCTIVA: Yes conjunctivae normal Neck/C-Spine: COMMON NORMALS: no JVD Chest: COMMONS NORMALS: normal inspection of the chest Resp: COMMON NORMALS: normal respiratory effort and clear to auscultation bilaterally AUSCULTATION: clear to auscultation bilaterally Cardio: COMMON NORMALS: no JVD, regular rate and regular rhythm RATE: regular rate RHYTHM: regular rhythm GI: COMMON NORMALS: Normal to inspection, nondistended, normoactive bowel sounds present Extremity: COMMON NORMALS: normal to inspection and full ROM Neuro: COMMON NORMALS: patient oriented x3, CN's II-XII intact bilaterally, moves all extremities, no focal motor deficits and no sensory deficits noted Skin: NARRATIVE SKIN EXAM: Large laceration to right cheek no bone pain underneath no swelling Procedures Laceration Laceration 1: Site: face Side (If applicable): right Size (cm): 7 Description: linear and irregular Depth: simple, single layer Local Anesthetic: lidocaine 1% Amount of anesthesia used (mL): 4 Pre-repair: wound explored, irrigated extensively and deep structures intact Skin layer closed with: vicryl Size (cm): 5-0 Number of sutures: 9 Technique: simple, interrupted Course Vital Signs: Vital signs: Vital Signs Temperature 98.3 F 02/19/20 09:18 Pulse Rate 78 02/19/20 09:50 Respiratory Rate 18 02/19/20 09:50 Blood Pressure 163/97 02/19/20 09:50 Pulse Oximetry 97 02/19/20 09:50 Discharge Plan Discharge Prescriptions: No Action prednisone 2.5 mg tablet 2.5 mg PO DAILY RF: 0 escitalopram oxalate [Lexapro] 20 mg tablet 20 mg PO DAILY RF: 0 omeprazole 40 mg capsule,delayed release(DR/EC) 40 mg PO DAILY RF: 0 tramadol 50 mg tablet 50 mg PO TID PRN (Reason: pain) Qty: 90 RF: 0 trazodone 50 mg tablet 50 mg PO .BEDTIME RF: 0 oxycodone 15 mg tablet 15 mg PO BID PRN (Reason: pain) 30 Days Qty: 60 RF: 0 metoprolol succinate 25 mg tablet extended release 24 hr 12.5 mg PO DAILY RF: 0 prednisone 5 mg tablet 5 mg PO DAILY RF: 0 rosuvastatin [Crestor] 20 mg tablet 20 mg PO DAILY RF: 0 Eliquis 5 mg tablet 5 mg PO BID RF: 0 Flovent HFA 110 mcg/actuation HFA aerosol inhaler 1 puff INHALATION BID RF: 0 Combivent Respimat 20-100 mcg/actuation mist 1 puff INHALATION Q6H PRN (Reason: UNKNOWN) RF: 0 ropinirole 2 mg tablet 2 mg PO BEDTIME RF: 0 Lantus U-100 Insulin 100 unit/mL solution 55 unit SUBCUT DAILY RF: 0 enalapril maleate 20 mg tablet 20 mg PO DAILY RF: 0 Hold Instructions: Resume on 11/04/19. clobetasol 0.05 % cream 1 applic TOPICAL BID PRN (Reason: UNKNOWN) RF: 0 gabapentin 300 mg capsule See Rx Instructions .ROUTE .COMPLEX RF: 0 ondansetron HCl [Zofran] 4 mg tablet 4 mg PO Q8H PRN (Reason: Nausea) RF: 0 (DME) ASO ankle brace See Rx Instructions .Route .MEDSUPPLY Qty: 1 RF: 0 ibuprofen 800 mg tablet 800 mg PO BID PRNRF: 0 (DME) cam boot See Rx Instructions .Route .MEDSUPPLY Qty: 1 RF: 0 (DME) wheel hair See Rx Instructions .Route .MEDSUPPLY Qty: 1 RF: 0 nitroglycerin [Nitrostat] 0.4 mg tablet, sublingual 0.4 mg SUBLINGUAL Q5M PRN (Reason: chest pain) 30 Days Qty: 25 RF: 6 isosorbide dinitrate 30 mg tablet 15 mg PO BID 90 Days Qty: 90 RF: 3 duloxetine [Cymbalta] 30 mg capsule,delayed release(DR/EC) 30 mg PO DAILY 30 Days Qty: 30 RF: 0 hydroxychloroquine 200 mg tablet 200 mg PO BID Qty: 60 RF: 1 Actemra ACTPen 162 mg/0.9 mL pen injector See Rx Instructions .ROUTE .COMPLEX Qty: 0.9 RF: 1 Chantix Starting Month Box 0.5 mg (11)- 1 mg (42) tablets,dose pack See Rx Instructions PO PER PKG DIR Qty: 53 RF: 0 albuterol sulfate 2.5 mg /3 mL (0.083 %) Solution For Nebulization 2.5 mg inhalation QID PRN (Reason: UNKNOWN) RF: 0 aspirin [Aspir-81] 81 mg Tablet,Delayed Release (Dr/Ec) 81 mg PO DAILY RF: 0 nicotine [Nicoderm CQ] 21 mg/24 hr Patch 24 Hour 1 patch transdermal PRN RF: 0 epinephrine [EpiPen 2-Carrington] 0.3 mg/0.3 mL Auto-Injector See Rx Instructions .ROUTE .COMPLEX RF: 0 insulin aspart U-100 [Novolog Flexpen U-100 Insulin] 100 unit/mL (3 mL) insulin pen 20 unit SUBCUT TID RF: 0 Glucagon (HCl) Emergency Kit See Rx Instructions .ROUTE .COMPLEX RF: 0 Coding Level of Care Code ED Reproductive Endocrinologist for Chg Fwd Exam Comprehensive
[2020-02-19] MEDS: lidocaine 1% INJ 20 mL 4 ML INTRADERMA (09:45)
[2020-02-19] MEDS: tetanus-dipt-pertussis 0.5 mL SDV IM (09:46)
[2020-02-19 09:50] VITALS: BP 163/97; PULSE 78; RESP 18; O2SAT 97
[2020-02-19 10:32] VITALS: BP 148/82; PULSE 77; RESP 18; TEMP 36.8; O2SAT 97
== END 2020-02-19 10:34 | disposition home or self-care (01) ==
PROVIDERS: Emergency Provider Nurse Practitioner Family; PCP Internal Medicine
DX: S01.411A Laceration without foreign body of right cheek and temporomandibular area, initial encounter (principal); Z79.01 Long term (current) use of anticoagulants; Z79.82 Long term (current) use of aspirin; Z79.4 Long term (current) use of insulin; W22.09XA Striking against other stationary object, initial encounter; E11.9 Type 2 diabetes mellitus without complications; I10 Essential (primary) hypertension; F17.210 Nicotine dependence, cigarettes, uncomplicated; Z23 Encounter for immunization
CPT/HCPCS: 12014; 12345; 90471; 90715; 99281; 99282

== ENCOUNTER 2020-02-24 08:13 | Outpatient (CLI) | payer MEDICAID, SELFPAY ==
--- NOTE | 2020-02-24 08:30 | CT_ITS ---
WS: [id number] CT ANGIOGRAPHY OF THE ABDOMINAL AORTA WITH RUNOFF TO THE ANKLES HISTORY: PVD TECHNIQUE: Arterial injection is performed during imaging to evaluate the aorta and runoff vessels to the ankles. MIP and volume rendering imaging has also been performed. All images are reviewed. All C T scans at [facility] use at least one of these dose optimization techniques: automated ex posure control; mA and/or kV adjustment per patient size (includes targeted exams where dose is match ed to clinical indication); or iterative reconstruction. Contrast: Omnipaque 350; 95 mL IV. DLP: 1812.0 mGy.cm COMPARISON: None available. Abdominal aorta: Normal caliber aorta. Moderate atherosclerotic plaque in the infrarenal aorta. Bifur cation is intact. No aneurysm. Celiac axis and superior mesenteric artery are normal caliber. Mild at herosclerotic plaque in the origin and proximal renal arteries. Normal enhancement of the kidneys. In ferior mesenteric artery is also patent. RIGHT lower extremity arterial system: Common, internal and external iliac arteries are patent with a therosclerotic plaque which is minimal. Femoral artery, deep profunda, SFA and popliteal arteries are patent. No significant stenosis. Minimal plaque in intimal thickening. Small caliber arterial runoff to the ankles. Posterior tibial arteries are small caliber may be occluded. Peroneal artery is also small caliber. LEFT lower extremity or subdural system: Mild calcified plaque in the proximal common iliac artery bu t it is patent. Moderate amount of calcified plaque in the internal iliac greater than 50% stenosis. External iliac artery is normal caliber with mild plaque. Deep profunda and superficial femoral arter ies are normal caliber. Mild stenosis 40-50% at Shaun's canal. Popliteal artery is patent. Small jazmin iber arterial runoff to the ankles with arteries are patent. Chronic emphysema. Small hiatal hernia. Tricuspid regurgitation into the hepatic veins. Prior cholecy stectomy. Mild hepatomegaly. Spleen is top normal size. No adrenal mass. Mild atrophy of the pancreas . No renal obstruction. Normal appendix. No adenopathy, ascites or free air. Healed rib fractures ant erior inferior RIGHT thorax. CT/CT angio abd aorta runof 28634 IMPRESSION: 1. Mild atherosclerosis in the aorta with no aneurysm or stenosis. 2. Very small caliber posterior tibial arteries bilaterally, greater on the RI GHT. RIGHT posterior tibial artery may be occluded. 3. LEFT SFA mild stenosis 40-50% at Shaun's canal. 4. Chronic emphysema.
[2020-02-24] MEDS: iohexol 350 mg/mL 100 mL Btl IV (08:46)
--- NOTE | 2020-02-24 09:30 | USCV_ITS ---
Erin Kelley Age: 49 Gender: F : 1970 Exam Date: 02/24/2020 08:51 Ordering Phys: Tiffany Hardy MD ([email or web address]) Technologist: Chantal Olsen Exam Location: [facility] [place]: SOB BP: / HR: 73 Rhythm: Sinus Technical Quality: Adequate MEASUREMENTS (Male / Female) Normal Values 2D ECHO LV Diastolic Diameter PLAX 3.0 cm 4.2 - 5.9 / 3.9 - 5.3 cm LV Systolic Diameter PLAX 2.5 cm LV Chamber Size 3.2 cm IVS Diastolic Thickness 1.1 cm 0.6 - 1.0 / 0.6 - 0.9 cm IVS Systolic Thickness 2.0 cm LVPW Diastolic Thickness 1.5 cm 0.6 - 1.0 / 0.6 - 0.9 cm LVPW Systolic Thickness 1.8 cm RV Chamber Size 2.4 cm LVOT Diameter 2.1 cm LV Ejection Fraction 2D Teich 33.3 % LV Ejection Fraction MOD 2C 31.3 % LV Ejection Fraction 2C AL 36.4 % LA Diameter 3.8 cm LA Width 3.1 cm LA Height 3.8 cm RA Width 3.2 cm RA Height 4.2 cm Aorta at Sinotubular Diameter 3.1 cm M-MODE LV Diastolic Diameter MM 3.5 cm 4.2 - 5.9 / 3.9 - 5.3 cm LV Systolic Diameter MM 2.6 cm LV Ejection Fraction MM Teich 53.6 % IVS Diastolic Thickness MM 1.6 cm 0.6 - 1.0 / 0.6 - 0.9 cm IVS Systolic Thickness MM 1.7 cm LVPW Diastolic Thickness MM 1.7 cm 0.6 - 1.0 / 0.6 - 0.9 cm LVPW Systolic Thickness MM 1.9 cm RV Diastolic Diameter MM 2.0 cm Aortic Annulus Diameter 3.5 cm LA Ao Ratio MM 1.1 MV E Point Septal Separation 0.4 cm DOPPLER AV Peak Velocity 116.0 cm/s LVOT Peak Velocity 83.0 cm/s AV Area Cont Eq vti 2.4 cm squared AV Area Cont Eq pk 2.5 cm squared MV Area PHT 5.0 cm squared Mitral E to A Ratio 0.9 MV E' Velocity 13.0 cm/s Mitral E to MV E' Ratio 7.7 Mitral E to LV E' Lateral Ratio 6.9 Mitral E to LV E' Septal Ratio 8.8 TR Peak Velocity 308.2 cm/s TR Peak Gradient 38.0 mmHg TR Mean Velocity 233.2 cm/s TR Mean Gradient 23.1 mmHg TR Velocity Time Integral 111.8 cm TV Peak E Velocity 73.0 cm/s Right Atrial Pressure 3.0 mmHg Pulmonary Artery Systolic Pressu 41.0 mmHg PV Peak Velocity 68.0 cm/s RV Acceleration Time 0.2 s RV Ejection Time 0.4 s RV AcT/ET 0.4 FINDINGS Left Ventricle Normal left ventricular cavity size. Normal left ventricular systolic function. No regional wall motion abnormalities. Left ventricular ejection fraction is estimated at 55 %. Grade I/IV diastolic dysfunction (abnormal relaxation filling pattern), normal to mildly elevated filling pressures. Right Ventricle Normal right ventricular size. Mild pulmonary hypertension, RVSP 41 mmHg. Right Atrium The right atrium is normal in size. Left Atrium The left atrium is normal in size. Mitral Valve Moderately thickened mitral valve. No mitral valve stenosis. Mild mitral valve regurgitation. Aortic Valve Structurally normal aortic valve without significant sclerosis or stenosis. There is no aortic regurgitation. Tricuspid Valve Mild to moderate tricuspid valve regurgitation. Pulmonic Valve Structurally normal pulmonic valve without significant stenosis. There is no pulmonic regurgitation. Pericardium Normal pericardium without effusion. Aorta Normal ascending aorta dimension. CONCLUSIONS 1-Normal left ventricular cavity size. Normal left ventricular systolic function. No regional wall motion abnormalities. Left ventricular ejection fraction is estimated at 55 %. Grade I/IV diastolic dysfunction (abnormal relaxation filling pattern), normal to mildly elevated filling pressures. 2-Normal right ventricular size. Mild pulmonary hypertension, RVSP 41 mmHg. 3-Moderately thickened mitral valve. No mitral valve stenosis. Mild mitral valve regurgitation. 4-Mild to moderate tricuspid valve regurgitation. 5-There is no pericardial effusion. 6-No significant change since the prior echocardiogram study of 11/04/2016. Tiffany Hardy MD (Electronically Signed) Final Date: 25 February 2020 19:31 S
== END 2020-02-24 08:14 | disposition home or self-care (01) ==
LOC: CT 08:13
PROVIDERS: PCP Internal Medicine; Visit Provider Internal Medicine Cardiovascular Disease
DX: R06.02 Shortness of breath (principal); R06.00 Dyspnea, unspecified; I73.9 Peripheral vascular disease, unspecified; I27.20 Pulmonary hypertension, unspecified; I70.0 Atherosclerosis of aorta; J43.9 Emphysema, unspecified; I05.9 Rheumatic mitral valve disease, unspecified; I07.1 Rheumatic tricuspid insufficiency
CPT/HCPCS: 75635; 93306

== ENCOUNTER 2020-02-28 07:54 | Outpatient (CLI) | payer MEDICAID, SELFPAY ==
--- NOTE | 2020-02-28 08:00 | CT_ITS ---
WS: [id number] EXAM: CT chest wo con [id number] DATE OF EXAMINATION: 02/28/2020, 0809 hours COMPARISON: CT of the chest from 10/04/2016 HISTORY: 49 years old with worsening dyspnea and the last 6 months. TECHNIQUE: Transaxial computed tomography images obtained through the chest without the utilization o f contrast with images viewed in multiple windows with reconstructions. DLP: 999.[address] scans at [facility] use at least one of these dose optimization techniques: automat ed exposure control; mA and/or kV adjustment per patient size (includes targeted exams where dose is matched to clinical indication); or iterative reconstruction. FINDINGS: Some minimal bleb formation seen in the right lung apex also seen on the prior exam. Areas of parench ymal loss with parenchymal cysts formation is seen within both lungs. Some minimal linear atelectasis or scarring right middle lobe. Right anterior to anterior lateral T2-T8 rib fractures noted which ap pear to be ununited and chronic. Posterior segmented T6-T8 additional rib fracture deformity seen. Fr actures are new since the 2017 examination. No left rib fractures are seen. No effusion or pneumothor ax. Tiny noncalcified pulmonary nodule posterior lateral right lower lobe stable in the interim. Ther e is a small patchy area of groundglass infiltrate within the left lower lobe posterior medially of q uestionable significance. New since the prior examination as well. Shotty lymph nodes are present within the mediastinum. Similar in appearance. Most prominent in the a ortic pulmonary window and pericarinal region. Fairly similar to prior imaging most likely reactive i n nature. Calcified granuloma azygos node region. Heart size is normal. Slight coronary artery calcif ications noted. Thoracic and upper abdominal aorta is normal in caliber. Upper abdomen solid organ attenuation as visualized is unremarkable. Clips in the gallbladder fossa c orrelate with cholecystectomy changes. Scattered degenerative changes are seen in the spine. CT/CT chest wo con [id number] IMPRESSION: Persistent findings of emphysematous lung change. Interval development of multiple subacute to chronic ununited right rib fractur es. Small nodular density right lung base stable. Considered benign in this timefra me. No further surveillance recommended. Shotty adenopathy within the mediastin um also similar. New groundglass area patchy infiltrate posterior medial left lower lobe. Questi onable significance. Possibly represents a small area of subtle pneumonitis.
== END 2020-02-28 07:55 | disposition home or self-care (01) ==
LOC: RADWPI 07:57
PROVIDERS: PCP Internal Medicine; Visit Provider Internal Medicine Pulmonary Disease
DX: R06.00 Dyspnea, unspecified (principal); R09.02 Hypoxemia; R91.1 Solitary pulmonary nodule; R59.9 Enlarged lymph nodes, unspecified; R91.8 Other nonspecific abnormal finding of lung field
CPT/HCPCS: 71250; 87635

== ENCOUNTER → 2020-03-02 08:10 | Outpatient (BNVA) | payer MEDICAID, SELFPAY | PROVIDERS: PCP Internal Medicine; Visit Provider Podiatrist Foot & Ankle Surgery | DX: S82.62XA Displaced fracture of lateral malleolus of left fibula, initial encounter for closed fracture (principal); S82.64XA Nondisplaced fracture of lateral malleolus of right fibula, initial encounter for closed fracture; S82.54XA Nondisplaced fracture of medial malleolus of right tibia, initial encounter for closed fracture; E11.42 Type 2 diabetes mellitus with diabetic polyneuropathy; M25.572 Pain in left ankle and joints of left foot; S82.891A Other fracture of right lower leg, initial encounter for closed fracture; S99.911A Unspecified injury of right ankle, initial encounter; W01.0XXA Fall on same level from slipping, tripping and stumbling without subsequent striking against object, initial encounter | CPT/HCPCS: 73610 ==

== ENCOUNTER 2020-03-03 09:52 | Outpatient (CLI) | payer MEDICAID, SELFPAY ==
--- NOTE | 2020-03-03 13:15 | PFTS_ITS ---
Date of Study:03/03/20 Date of Dictation: MECHANICS: Forced vital capacity (FVC) is normal. Forced expiratory volume in one second (FEV1) is normal. FEV1/FVC is normal. FLOW VOLUME LOOP: Mild scooping especially at lower lung volumes. LUNG VOLUMES: Total lung capacity (TLC) is elevated. Residual volume (RV) is elevated. DIFFUSING CAPACITY FOR CARBON MONOXIDE: Moderately reduced. INTERPRETATION: The spirometry is normal. However, there is evidence of scooping of the flow volume loop and elevated residual volume and total lung capacity might represent small airways disease leading to air trapping and hyperinflation. Gas exchange (DLCO) is moderately reduced. This has not been corrected for hemoglobin. The reduction in gas exchange is disproportionately severe compared to the spirometry. This could be seen in the presence of pulmonary hypertension. Clinical correlation is recommended. MTDD
== END 2020-03-03 09:53 | disposition home or self-care (01) ==
LOC: RT 09:53
PROVIDERS: PCP Internal Medicine; Visit Provider Internal Medicine Pulmonary Disease
DX: R06.02 Shortness of breath (principal); F17.200 Nicotine dependence, unspecified, uncomplicated; J43.9 Emphysema, unspecified
CPT/HCPCS: 94010; 94726; 94729

== ENCOUNTER → 2020-03-13 08:20 | Outpatient (BNVA) | payer MEDICAID, SELFPAY | PROVIDERS: PCP Internal Medicine; Visit Provider Internal Medicine | DX: M06.9 Rheumatoid arthritis, unspecified (principal); T14.8XXA Other injury of unspecified body region, initial encounter; Z79.899 Other long term (current) drug therapy; Z79.52 Long term (current) use of systemic steroids; F17.210 Nicotine dependence, cigarettes, uncomplicated; X58.XXXA Exposure to other specified factors, initial encounter | CPT/HCPCS: 36415; 99213 ==

== ENCOUNTER 2020-03-13 09:54 | Outpatient (CLI) | payer MEDICAID, SELFPAY ==
--- NOTE | 2020-03-13 10:11 | XR_ITS ---
WS: [id number] WRIST LEFT TECHNIQUE: 2 views of the left wrist CLINICAL INFORMATION: wrist pain COMPARISON: None. FINDINGS: Mild narrowing radiocarpal joint. Scaphoid is normal in appearance. No evidence of radiocarpal disloc ation. Distal radius and ulna are normal in appearance. XR/XR wrist LT 2V [id number] IMPRESSION: Mild narrowing radiocarpal joint. Left wrist otherwise unremarkable.
--- NOTE | 2020-03-13 10:11 | XR_ITS ---
WS: [id number] TECHNIQUE: 2 views of the left hand CLINICAL INFORMATION: hand pain COMPARISON: None. FINDINGS: Osteopenia. Normal anatomic alignment. No acute fractures. Mild IP joint narrowing PIP and DIP joints . No erosive changes. Radiocarpal joint: Mild narrowing Carpal bones: Normal. XR/XR hand LT 2V [id number] IMPRESSION: 1. Osteopenia. No acute fractures. 2. No erosive changes. 3. Mild narrowing of the radiocarpal joint.
--- NOTE | 2020-03-13 10:11 | XR_ITS ---
WS: [id number] TECHNIQUE: 2 views of the right hand CLINICAL INFORMATION: hand pain COMPARISON: None. FINDINGS: Osteopenia. No acute fractures. No erosive changes. Mild PIP and DIP joint narrowing. Radiocarpal joint: Mild narrowing Carpal bones: Normal. XR/XR hand RT 2V [id number] IMPRESSION: Osteopenia. No acute fractures.
== END 2020-03-13 09:55 | disposition home or self-care (01) ==
LOC: RADWPI 10:02
PROVIDERS: Family Provider Internal Medicine; PCP Internal Medicine; Visit Provider Internal Medicine
DX: M25.532 Pain in left wrist (principal); M79.642 Pain in left hand; M79.641 Pain in right hand; M85.842 Other specified disorders of bone density and structure, left hand; M85.841 Other specified disorders of bone density and structure, right hand
CPT/HCPCS: 73100; 73120; 80053; 82306; 85025; 85651; 86140

== ENCOUNTER → 2020-03-18 09:23 | Outpatient (BNVA) | payer MEDICAID, SELFPAY | PROVIDERS: Family Provider Internal Medicine; PCP Internal Medicine; Visit Provider Nurse Practitioner | DX: M54.42 Lumbago with sciatica, left side (principal); M54.41 Lumbago with sciatica, right side; M47.816 Spondylosis without myelopathy or radiculopathy, lumbar region; M47.812 Spondylosis without myelopathy or radiculopathy, cervical region; M50.30 Other cervical disc degeneration, unspecified cervical region; M06.9 Rheumatoid arthritis, unspecified; S82.831D Other fracture of upper and lower end of right fibula, subsequent encounter for closed fracture with routine healing; X58.XXXD Exposure to other specified factors, subsequent encounter; F17.210 Nicotine dependence, cigarettes, uncomplicated; Z79.891 Long term (current) use of opiate analgesic; Z71.6 Tobacco abuse counseling | CPT/HCPCS: 99214 ==

== ENCOUNTER → 2020-03-24 10:57 | Outpatient (BNVA) | payer MEDICAID, SELFPAY | PROVIDERS: Family Provider Internal Medicine; PCP Internal Medicine; Visit Provider Podiatrist Foot & Ankle Surgery | DX: S82.831D Other fracture of upper and lower end of right fibula, subsequent encounter for closed fracture with routine healing (principal); X58.XXXD Exposure to other specified factors, subsequent encounter | CPT/HCPCS: 73610 ==

== ENCOUNTER 2020-03-26 11:00 | Outpatient (CLI) | payer MEDICAID, SELFPAY | END 2020-03-26 11:01 | disposition home or self-care (01) | LOC: SLEEP 03-27 12:00 | PROVIDERS: Family Provider Internal Medicine; PCP Internal Medicine; Visit Provider Internal Medicine Pulmonary Disease | DX: R06.00 Dyspnea, unspecified (principal); F17.200 Nicotine dependence, unspecified, uncomplicated; J43.9 Emphysema, unspecified | CPT/HCPCS: 94762 ==

== ENCOUNTER 2020-03-30 16:06 | Emergency (ER) | payer MEDICAID, SELFPAY ==
[2020-03-30 16:09] VITALS: BP 145/70; PULSE 87; RESP 20; TEMP 36.6; O2SAT 97; BMI 31.6
--- NOTE | 2020-03-30 16:21 | W.ED.GENADLT ---
Documented by User: CODY Hinojosa 03/31/20 07:45 HPI - General Adult General: Chief complaint: General Medical Stated complaint: POSSIBLE BROKEN RIBS/L Time Seen by Provider: 03/30/20 16:18 History of Present Illness: HPI narrative: Patient says she bent over this afternoon and felt pain in her left rib area chest area thinks she may fractured a rib. 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 can she felt like something popped in the left lower rib area Const: Denies: fever(s), chills or body aches Eyes: Denies: change in vision or blurry vision ENMT: Denies: throat pain or nasal congestion Card: Denies: chest pain or dyspnea on exertion Resp: Denies: dyspnea, productive cough or non-productive cough GI: Denies: abdominal pain, nausea or vomiting Musc: Denies: extremity pain Skin/Breast: Denies: rash Neuro: Denies: headache(s) Psych: Denies: anxiety or depression Jewel/Lymph: Denies: easy bruising PFSH ED PFSH: Medical History Cervical spondylosis DDD (degenerative disc disease), cervical Diabetes Encounter for long-term (current) use of NSAIDs Essential hypertension Fibromyalgia Fracture Long-term current use of opiate analgesic Osteoporosis Pain management contract signed Pain, joint, multiple sites Rheumatoid arthritis Tobacco use disorder Surgical History H/O dilation and curettage Hx laparoscopic cholecystectomy Hx of section (~1989) Hx of hysterectomy Family History Mother Stroke Cancer SKIN CANCER Sister Stroke Other Diabetes Myocardial infarct Denies family history of Anesthesia complication Bleeding disorder Social History Smoking and tobacco status: current every day smoker cigarettes Packs smoked per day: 0.5 Years cigarettes smoked: 40 Quit status (tobacco): has tried quititng Second hand smoke exposure: Yes Alcohol intake: former Caregiver/support person: Yes Lives independently: Yes Household members: spouse Marital status: Current occupational status: disabled History of recent travel: No Current gender identity: Female Physical Exam Const: COMMON NORMALS: no acute distress, average body habitus and patient oriented x3 HENMT: COMMON NORMALS: normocephalic HEAD & SCALP: normal to inspection and normocephalic FACE & SINUS: normal facial exam Eye: COMMON NORMALS: conjunctivae normal GENERAL EYE: appearance normal, both eyes and all related structures CONJUNCTIVA: Yes conjunctivae normal Neck/C-Spine: COMMON NORMALS: no JVD Chest: COMMONS NORMALS: normal inspection of the chest CHEST: Yes localized rib tenderness with anteroposterior compression (Left side) Location: 10th rib, 11th rib and 12th rib Resp: COMMON NORMALS: normal respiratory effort and clear to auscultation bilaterally AUSCULTATION: clear to auscultation bilaterally Cardio: COMMON NORMALS: no JVD, regular rate and regular rhythm RATE: regular rate RHYTHM: regular rhythm GI: COMMON NORMALS: Normal to inspection, nondistended, normoactive bowel sounds present Extremity: COMMON NORMALS: normal to inspection and full ROM Neuro: COMMON NORMALS: patient oriented x3 Course Vital Signs: Vital signs: Vital Signs Temperature 97.9 F 03/30/20 16:09 Pulse Rate 85 03/30/20 17:48 Respiratory Rate 18 03/30/20 17:48 Blood Pressure 123/65 03/30/20 17:48 Pulse Oximetry 97 03/30/20 17:48 Discharge Plan Discharge Patient Disposition: Home Clinical Impression: Pain in rib Condition: Stable Prescriptions: No Action prednisone 2.5 mg tablet 2.5 mg PO DAILY RF: 0 escitalopram oxalate [Lexapro] 20 mg tablet 20 mg PO DAILY RF: 0 omeprazole 40 mg capsule,delayed release(DR/EC) 40 mg PO DAILY RF: 0 tramadol 50 mg tablet 50 mg PO TID PRN (Reason: pain) Qty: 90 RF: 0 trazodone 50 mg tablet 50 mg PO .BEDTIME RF: 0 prednisone 5 mg tablet 5 mg PO DAILY RF: 0 rosuvastatin [Crestor] 20 mg tablet 20 mg PO DAILY RF: 0 Eliquis 5 mg tablet 5 mg PO BID RF: 0 ropinirole 2 mg tablet 2 mg PO BEDTIME RF: 0 Lantus U-100 Insulin 100 unit/mL solution 55 unit SUBCUT DAILY RF: 0 enalapril maleate 20 mg tablet 20 mg PO DAILY RF: 0 Hold Instructions: Resume on 11/04/19. clobetasol 0.05 % cream 1 applic TOPICAL BID PRN (Reason: UNKNOWN) RF: 0 gabapentin 300 mg capsule See Rx Instructions .ROUTE .COMPLEX RF: 0 ondansetron HCl [Zofran] 4 mg tablet 4 mg PO Q8H PRN (Reason: Nausea) RF: 0 (DME) ASO ankle brace See Rx Instructions .Route .MEDSUPPLY Qty: 1 RF: 0 ibuprofen 800 mg tablet 800 mg PO BID PRNRF: 0 (DME) cam boot See Rx Instructions .Route .MEDSUPPLY Qty: 1 RF: 0 (DME) wheel hair See Rx Instructions .Route .MEDSUPPLY Qty: 1 RF: 0 duloxetine [Cymbalta] 30 mg capsule,delayed release(DR/EC) 30 mg PO DAILY 30 Days Qty: 30 RF: 5 baclofen 20 mg tablet 20 mg PO QID Qty: 120 RF: 1 oxycodone 15 mg tablet 15 mg PO BID PRN (Reason: pain) 30 Days Qty: 60 RF: 0 oxycodone 15 mg tablet 15 mg PO BID PRN (Reason: pain) 30 Days Qty: 60 RF: 0 Bevespi Aerosphere 9-4.8 mcg HFA aerosol inhaler 2 puff INHALATION BID Qty: 10.7 RF: 3 nicotine 21 mg/24 hr patch 24 hour 1 patch TRANSDERMA DAILY Qty: 14 RF: 2 Combivent Respimat 20-100 mcg/actuation mist 1 puff INHALATION Q6H PRN (Reason: UNKNOWN) Qty: 4 RF: 3 nitroglycerin [Nitrostat] 0.4 mg tablet, sublingual 0.4 mg SUBLINGUAL Q5M PRN (Reason: chest pain) 30 Days Qty: 25 RF: 6 isosorbide dinitrate 30 mg tablet 15 mg PO BID 90 Days Qty: 90 RF: 3 hydroxychloroquine 200 mg tablet 200 mg PO BID Qty: 60 RF: 1 Actemra ACTPen 162 mg/0.9 mL pen injector See Rx Instructions .ROUTE .COMPLEX Qty: 0.9 RF: 1 cilostazol 50 mg tablet 50 mg PO BID Qty: 60 RF: 1 metoprolol succinate 25 mg tablet extended release 24 hr 12.5 mg PO DAILY Qty: 45 RF: 3 Cosentyx Pen 150 mg/mL pen injector 150 mg SUBCUT .qmonth Qty: 1 RF: 5 aspirin [Aspir-81] 81 mg Tablet,Delayed Release (Dr/Ec) 81 mg PO DAILY RF: 0 epinephrine [EpiPen 2-Carrington] 0.3 mg/0.3 mL Auto-Injector See Rx Instructions .ROUTE .COMPLEX RF: 0 insulin aspart U-100 [Novolog Flexpen U-100 Insulin] 100 unit/mL (3 mL) insulin pen 20 unit SUBCUT TID RF: 0 Glucagon (HCl) Emergency Kit See Rx Instructions .ROUTE .COMPLEX RF: 0 Discharge Orders: Discharge Order (Routine); Ordered 03/30/20 Ordered By: Darren Elias Referrals: Nel Peacock MD [Primary Care Provider] - Discharge Diet: Regular Discharge Activity: Increase activity as tolerated Activity Restrictions/Additional Instructions: Follow-up with medical provider as directed in 7-10 days. Take ibuprofen or Tylenol for pain. Apply cold pack on sore area to help with symptoms. Return to the ER or your medical provider if condition worsens. Please read and understand discharge instructions. If any questions, please ask. Discharge Date/Time: 03/30/20 17:51 Sign Out Sign Out Data: Patient Sign Out occurred on 03/30/20 at 17:05. Patient's care was discussed, and care was transferred from to JEANNE Mckeon. Coding Level of Care Code ED Electroencephalographic Technologist for Chg Fwd Exam Comprehensive Documented by User: JEANNE Mckeon 03/30/20 17:56 HPI - General Adult General: Chief complaint: General Medical Stated complaint: POSSIBLE BROKEN RIBS/L Time Seen by Provider: 03/30/20 16:18 PFSH ED PFSH: Medical History Cervical spondylosis DDD (degenerative disc disease), cervical Diabetes Encounter for long-term (current) use of NSAIDs Essential hypertension Fibromyalgia Fracture Long-term current use of opiate analgesic Osteoporosis Pain management contract signed Pain, joint, multiple sites Rheumatoid arthritis Tobacco use disorder Surgical History H/O dilation and curettage Hx laparoscopic cholecystectomy Hx of section (~1989) Hx of hysterectomy Family History Mother Stroke Cancer SKIN CANCER Sister Stroke Other Diabetes Myocardial infarct Denies family history of Anesthesia complication Bleeding disorder Social History Smoking and tobacco status: current every day smoker cigarettes Packs smoked per day: 0.5 Years cigarettes smoked: 40 Quit status (tobacco): has tried quititng Second hand smoke exposure: Yes Alcohol intake: former Caregiver/support person: Yes Lives independently: Yes Household members: spouse Marital status: Current occupational status: disabled History of recent travel: No Current gender identity: Female Course Vital Signs: Vital signs: Vital Signs Temperature 97.9 F 03/30/20 16:09 Pulse Rate 85 03/30/20 17:48 Respiratory Rate 18 03/30/20 17:48 Blood Pressure 123/65 03/30/20 17:48 Pulse Oximetry 97 03/30/20 17:48 MDM - General Adult MDM Narrative: Medical decision making narrative: Patient is a 49-year-old female comes to the ED with left rib pain after she bent over and picked up an object up. Chest x-ray of the left ribs was performed and no acute fractures were seen. Patient was diagnosed with pain and told to place cold pack on sore area peds and to take ibuprofen to help with pain and inflammation. Follow-up with PCP in 7 to 10 days. Return to ED precautions given. Patient understood and agree with plan. Imaging Data^: CXR: Attestation: I personally reviewed and interpreted this imaging study as follows: Radiologist's impression: [address] [address] XRay Report Signed Patient: Erin Kelley Unit #: [id number] : 1970 Age/Sex: 49 / F ADM Date: 03/30/20 Loc: ER Room/Bed: Attending Dr: Ordering Provider/Ordering MD: Alyse Irving Sr, [facility] Date of Service: 03/30/20 Procedure(s): XR ribs LT mn 3V w CXR1V [id number] Accession Number(s): [id number] Report Number: [id number] PROCEDURE INFORMATION: Exam: XR Left Ribs with PA Chest, 3 Views Exam date and time: 03/30/2020 4:21 PM Age: 49 years old Clinical indication: Injury or trauma; Injury history: While reaching for something, heard multiple pops on her left ribs; Initial encounter; Rib area; Sprain or strain; Injury date: 03/23/20 TECHNIQUE: Imaging protocol: XR Left ribs 3 views with PA chest. COMPARISON: CT chest [facility] [id number] 02/28/2020 8:07 AM FINDINGS: Lungs: Calcified granuloma in the right lung. The lungs are otherwise clear. Pleural space: Unremarkable. No pleural effusion. No pneumothorax. Heart/Mediastinum: Unremarkable. No cardiomegaly. Bones/joints: The lower ribs are poorly visualized due to demineralization of the bones. Multiple incompletely healed posterior right rib fractures, unchanged from the prior CT chest. No left rib fracture identified. XR/XR ribs LT mn 3V w CXR1V [id number] IMPRESSION: No acute fracture identified. Dictated By: Juan Pedraza Signed By: Juan Pedraza Signed Date/Time: 03/30/201710 DD/ 09 Discharge Plan Discharge Patient Disposition: Home Clinical Impression: Pain in rib Condition: Stable Prescriptions: No Action prednisone 2.5 mg tablet 2.5 mg PO DAILY RF: 0 escitalopram oxalate [Lexapro] 20 mg tablet 20 mg PO DAILY RF: 0 omeprazole 40 mg capsule,delayed release(DR/EC) 40 mg PO DAILY RF: 0 tramadol 50 mg tablet 50 mg PO TID PRN (Reason: pain) Qty: 90 RF: 0 trazodone 50 mg tablet 50 mg PO .BEDTIME RF: 0 prednisone 5 mg tablet 5 mg PO DAILY RF: 0 rosuvastatin [Crestor] 20 mg tablet 20 mg PO DAILY RF: 0 Eliquis 5 mg tablet 5 mg PO BID RF: 0 ropinirole 2 mg tablet 2 mg PO BEDTIME RF: 0 Lantus U-100 Insulin 100 unit/mL solution 55 unit SUBCUT DAILY RF: 0 enalapril maleate 20 mg tablet 20 mg PO DAILY RF: 0 Hold Instructions: Resume on 11/04/19. clobetasol 0.05 % cream 1 applic TOPICAL BID PRN (Reason: UNKNOWN) RF: 0 gabapentin 300 mg capsule See Rx Instructions .ROUTE .COMPLEX RF: 0 ondansetron HCl [Zofran] 4 mg tablet 4 mg PO Q8H PRN (Reason: Nausea) RF: 0 (DME) ASO ankle brace See Rx Instructions .Route .MEDSUPPLY Qty: 1 RF: 0 ibuprofen 800 mg tablet 800 mg PO BID PRNRF: 0 (DME) cam boot See Rx Instructions .Route .MEDSUPPLY Qty: 1 RF: 0 (DME) wheel hair See Rx Instructions .Route .MEDSUPPLY Qty: 1 RF: 0 duloxetine [Cymbalta] 30 mg capsule,delayed release(DR/EC) 30 mg PO DAILY 30 Days Qty: 30 RF: 5 baclofen 20 mg tablet 20 mg PO QID Qty: 120 RF: 1 oxycodone 15 mg tablet 15 mg PO BID PRN (Reason: pain) 30 Days Qty: 60 RF: 0 oxycodone 15 mg tablet 15 mg PO BID PRN (Reason: pain) 30 Days Qty: 60 RF: 0 Bevespi Aerosphere 9-4.8 mcg HFA aerosol inhaler 2 puff INHALATION BID Qty: 10.7 RF: 3 nicotine 21 mg/24 hr patch 24 hour 1 patch TRANSDERMA DAILY Qty: 14 RF: 2 Combivent Respimat 20-100 mcg/actuation mist 1 puff INHALATION Q6H PRN (Reason: UNKNOWN) Qty: 4 RF: 3 nitroglycerin [Nitrostat] 0.4 mg tablet, sublingual 0.4 mg SUBLINGUAL Q5M PRN (Reason: chest pain) 30 Days Qty: 25 RF: 6 isosorbide dinitrate 30 mg tablet 15 mg PO BID 90 Days Qty: 90 RF: 3 hydroxychloroquine 200 mg tablet 200 mg PO BID Qty: 60 RF: 1 Actemra ACTPen 162 mg/0.9 mL pen injector See Rx Instructions .ROUTE .COMPLEX Qty: 0.9 RF: 1 cilostazol 50 mg tablet 50 mg PO BID Qty: 60 RF: 1 metoprolol succinate 25 mg tablet extended release 24 hr 12.5 mg PO DAILY Qty: 45 RF: 3 Cosentyx Pen 150 mg/mL pen injector 150 mg SUBCUT .qmonth Qty: 1 RF: 5 aspirin [Aspir-81] 81 mg Tablet,Delayed Release (Dr/Ec) 81 mg PO DAILY RF: 0 epinephrine [EpiPen 2-Carrington] 0.3 mg/0.3 mL Auto-Injector See Rx Instructions .ROUTE .COMPLEX RF: 0 insulin aspart U-100 [Novolog Flexpen U-100 Insulin] 100 unit/mL (3 mL) insulin pen 20 unit SUBCUT TID RF: 0 Glucagon (HCl) Emergency Kit See Rx Instructions .ROUTE .COMPLEX RF: 0 Discharge Orders: Discharge Order (Routine); Ordered 03/30/20 Ordered By: Darren Elias Referrals: Nel Peacock MD [Primary Care Provider] - Discharge Diet: Regular Discharge Activity: Increase activity as tolerated Activity Restrictions/Additional Instructions: Follow-up with medical provider as directed in 7-10 days. Take ibuprofen or Tylenol for pain. Apply cold pack on sore area to help with symptoms. Return to the ER or your medical provider if condition worsens. Please read and understand discharge instructions. If any questions, please ask. Discharge Date/Time: 03/30/20 17:51 Sign Out Sign Out Data: Patient Sign Out occurred on 03/30/20 at 17:05. Patient's care was discussed, and care was transferred from to JEANNE Mckeon. Coding Level of Care Code ED Electroencephalographic Technologist for [place] Fwd Exam Comprehensive
[2020-03-30 17:48] VITALS: BP 123/65; PULSE 85; RESP 18; O2SAT 97
== END 2020-03-30 17:51 | disposition home or self-care (01) ==
PROVIDERS: Emergency Provider Physician Assistant; PCP Internal Medicine
DX: R07.81 Pleurodynia (principal); Z79.01 Long term (current) use of anticoagulants; Z79.82 Long term (current) use of aspirin; Z79.4 Long term (current) use of insulin; E11.9 Type 2 diabetes mellitus without complications; I10 Essential (primary) hypertension; F17.210 Nicotine dependence, cigarettes, uncomplicated
CPT/HCPCS: 12345; 71101; 99281; 99282

== ENCOUNTER 2020-03-31 21:16 | Observation (INO) | payer MEDICAID, SELFPAY ==
--- NOTE | 2020-03-31 21:17 | XRR_ITS ---
PROCEDURE INFORMATION: Exam: XR Chest, 1 View Exam date and time: 03/31/2020 9:39 PM Age: 49 years old Clinical indication: Chest wall pain TECHNIQUE: Imaging protocol: XR of the chest Views: 1 view. COMPARISON: CR XR ribs LT mn 3V w CXR1V [id number] 03/30/2020 4:47 PM FINDINGS: Lungs: No lung consolidation or pulmonary edema. Pleural space: No pleural effusion or pneumothorax. Heart/Mediastinum: The cardiac silhouette is not enlarged. The mediastinal contours are normal. Bones/joints: No acute osseous abnormality. XR/XR chest 1V portable [id number] IMPRESSION: No acute abnormality.
--- NOTE | 2020-03-31 21:18 | ECG_ITS ---
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 Measurements Intervals [place] Rate: 79 P: 64 HI: 158 QRS: 63 QRSD: 83 T: 82 QT: 424 QTc: 486 Interpretive Statements SINUS RHYTHM POSSIBLE LEFT ATRIAL ENLARGEMENT [-0.1mV P WAVE IN V1/V2] MODERATE ST DEPRESSION [0.05+ mV ST DEPRESSION] Compared to ECG 05/04/2018 00:18:19 No significant changes Electronically Signed On 04-01-2020 13:56:07 CDT by Galina Bradshaw M.D. [id number]
[2020-03-31 21:19] VITALS: BMI 31.6
[2020-03-31 21:26] VITALS: BP 115/67
--- NOTE | 2020-03-31 21:26 | W.ED.CHESTPA ---
HPI - Chest Pain General: Chief Complaint: Chest Pain Stated Complaint: CHEST PAIN Time Seen by Provider: 03/31/20 21:17 Source: patient Mode of arrival: ambulatory Limitations: no limitations History of Present Illness: HPI narrative: Erin is a 49-year-old female who comes in complaining of chest pain. She states been having chest pain over the past 2-1/2 days that is been worsening in severity and intensity. She says is also been increasing in frequency. She describes the chest pain as a fullness in her chest that radiates to her back. At times she will get short of breath and diaphoretic and nauseous. She states the discomfort lasts varying amounts of time but as long as up to 20 minutes. She states any type of exertion makes her symptoms worse but rest and nitroglycerin make it better. Patient states that she is not had anything like this is similar. She has had a stress test in the past but she does not remember what it was. Patient has no pain upon arrival here she states it was markedly improved after 3 nitroglycerin at home and then eventually went away on its own. Associated symptoms: Reports diaphoresis, dyspnea and nausea; Deny abdominal pain, fever(s), palpitations, syncope or vomiting Review of Systems Const: Reports: diaphoresis; Denies: fever(s), chills, body aches, fatigue or malaise Eyes: Denies: change in vision, blurry vision, photophobia, eye discomfort, eye discharge, eye redness or yellow eyes ENMT: Denies: throat pain, odynophagia, hoarseness, swelling of lips/tongue, ear or mastoid pain, ear discharge, change in hearing or nasal discharge Card: Reports: chest pain; Denies: palpitations, irregular heart rhythm, edema, lightheadedness, syncope, pre-syncope, dyspnea on exertion or orthopnea Resp: Reports: dyspnea; Denies: productive cough, non-productive cough, wheezing, hemoptysis or chest congestion GI: Reports: nausea; Denies: abdominal pain, vomiting, hematemesis, coffee ground emesis, heartburn, diarrhea, constipation, GI cramping, hematochezia or melena : Denies: flank pain, dysuria, urinary frequency, urinary urgency or hematuria Musc: Denies: neck pain, back pain, extremity pain, extremity swelling, joint pain, joint swelling, joint redness, joint warmth or joint stiffness Skin/Breast: Denies: rash, pruritus, erythema, skin pain or skin tenderness Neuro: Denies: headache(s), numbness in extremities, weakness in extremities, sensory changes, lack of coordination, difficulty walking, dizziness, vertigo, confusion, Slurred speech present or seizure-like activity Jewel/Lymph: Denies: easy bruising, easy bleeding, petechiae, purpura or enlarged lymph nodes All/Imm: Denies: urticaria, throat swelling, tongue swelling, facial swelling or acute wheezing PFSH ED PFSH: Medical History Cervical spondylosis DDD (degenerative disc disease), cervical Diabetes Encounter for long-term (current) use of NSAIDs Essential hypertension Fibromyalgia Fracture Long-term current use of opiate analgesic Osteoporosis Pain management contract signed Pain, joint, multiple sites Rheumatoid arthritis Tobacco use disorder Surgical History H/O dilation and curettage Hx laparoscopic cholecystectomy Hx of section (~1989) Hx of hysterectomy Family History Mother Stroke Cancer SKIN CANCER Sister Stroke Other Diabetes Myocardial infarct Denies family history of Anesthesia complication Bleeding disorder Social History Smoking and tobacco status: current every day smoker cigarettes Packs smoked per day: 0.5 Years cigarettes smoked: 40 Quit status (tobacco): has tried quititng Second hand smoke exposure: Yes Alcohol intake: former Caregiver/support person: Yes Lives independently: Yes Household members: spouse Marital status: Current occupational status: disabled History of recent travel: No Current gender identity: Female Physical Exam Const: COMMON NORMALS: no acute distress, patient oriented x3, no limitations and alert GENERAL APPEARANCE: cooperative HENMT: COMMON NORMALS: normocephalic, atraumatic, external ears normal, EAC's normal and Normal external nose present HEAD & SCALP: normal to inspection, normocephalic and atraumatic FACE & SINUS: normal facial exam and face symmetric NOSE: Normal external nose present and Normal nares present EXTERNAL EAR: Yes external ears normal EXTERNAL AUDITORY CANAL: EAC's normal MOUTH: Normal oral and palatal mucosa present, lip normal and tongue normal Eye: COMMON NORMALS: Equal, round and reactive pupils present and conjunctivae normal GENERAL EYE: appearance normal, both eyes and all related structures ALIGNMENT: Yes alignment normal PERIORBITAL: periorbital findings normal EYELID: eyelids normal CONJUNCTIVA: Yes conjunctivae normal SCLERA: sclerae normal PUPIL: Yes Equal, round and reactive pupils present Neck/C-Spine: COMMON NORMALS: full ROM, no lymphadenopathy, supple, no meningeal signs and no JVD GENERAL: Yes normal visual inspection and Yes trachea midline Chest: COMMONS NORMALS: normal inspection of the chest and normal palpation of entire chest wall Resp: COMMON NORMALS: normal respiratory effort, No retractions, No use of accessory muscles and clear to auscultation bilaterally EFFORT & INSPECTION: Yes able to speak in complete sentences and Yes symmetric chest movement AUSCULTATION: clear to auscultation bilaterally, no crackles, no rales, no rhonchi and no wheezes Cardio: COMMON NORMALS: no JVD, regular rate, regular rhythm, S1 normal heart sound present and S2 normal heart sound present RATE: regular rate RHYTHM: regular rhythm HEART SOUNDS: S1 normal heart sound present, S2 normal heart sound present, no click, no gallops, no murmurs and no rubs GI: COMMON NORMALS: Soft to palpation and No hepatosplenomegaly present PALPATION: Yes Soft to palpation, No Tenderness to palpation present (GI), No Guarding due to palpation present (GI), No Rigid due to palpation, Yes No hepatosplenomegaly present, No Hernia present, No Palpable mass present and No Pulsatile mass present : COMMON NORMALS: Yes no CVA tenderness BLADDER/KIDNEY EXAM: Yes no CVA tenderness EXTERNAL FEMALE EXAM: No Hernia present Back/Pelvis: COMMON NORMALS: no CVA tenderness, thoracic and lumbar spine normal to inspection, no thoracic nor lumbar tenderness and thoraco-lumbar ROM normal Extremity: COMMON NORMALS: normal to inspection, full ROM, capillary refill normal, no joint enlargement, no clubbing, cyanosis or edema and no calf tenderness Neuro: COMMON NORMALS: patient oriented x3, CN's II-XII intact bilaterally, moves all extremities, no focal motor deficits and no sensory deficits noted SENSORIUM/ORIENTATION: Yes alert MENINGEAL SIGNS: Yes no meningeal signs SPEECH: speech normal Psych: COMMON NORMALS: mental status grossly normal, Normal thought process present, cooperative, normal affect, speech normal and activity/motor behavior normal SPEECH: Yes normal speech THOUGHT PROCESS: Normal thought process present Skin: COMMON NORMALS: no rashes or lesions noted, turgor normal, no jaundice, no petechiae and no mottling GENERAL SKIN EXAM: no rashes or lesions noted and turgor normal Course Vital Signs: Vital signs: Vital Signs Blood Pressure 115/67 03/31/20 21:26 MDM - Chest Pain MDM Narrative: Medical decision making narrative: The case was reviewed with Dr. Wahl, he agrees admit the patient for cardiac rule out and stress test. Patient still chest pain-free. Please see his note for further information. At this time I see no sign of PE or aortic dissection. Patient symptoms are most consistent with crescendo angina. Patient's heart score is 6. Lab Data: Attestation: I reviewed the patient's lab results. Labs: Lab Results 03/31/20 03/31/20 03/31/20 Range/Units 21:50 21:50 21:50 WBC 9.2 (4.0-10.0) 10^3/ uL RBC 4.89 (4.1-5.3) 10^6/u L Hgb 13.0 (11.5-15.3) g/dL Hct 42.6 (37.0-47.0) % MCV 87.1 (81-99) fL MCH 26.6 L (28.0-34.0) pg MCHC 30.5 (30.0-36.0) g/dL RDW 16.3 H (12.1-15.1) % Plt Count 180 (130-400) 10^3/c mm MPV 11.0 H (7.4-10.4) fL Neut % (Auto) 63.5 % Lymph % (Auto) 25.0 % Trego % (Auto) 6.1 % Eos % (Auto) 3.9 % Baso % (Auto) 1.3 % Neut # (Auto) 5.86 (1.8-7.7) 10^3/u L Lymph # (Auto) 2.3 (0.8-4.8) 10^3/u L Trego # (Auto) 0.6 (0.2-0.9) 10^3/u L Eos # (Auto) 0.4 (0.0-0.8) 10^3/u L Baso # (Auto) 0.1 (0.0-0.1) 10^3/u L Nucleated RBC % (a uto) 0 % Nucleated RBCs # 0.0 /100WBC PT 12.50 (12.1-14.9) SECO NDS INR 0.91 (0.8-1.2) Sodium 134 L (136-145) mmol/L Potassium 4.0 (3.5-5.1) mmol/L Chloride 100 (98-107) mmol/L Carbon Dioxide 23 (22-29) mmol/L Anion Gap 15.0 (5-19) BUN 12 (6-20) mg/dL Creatinine 0.6 (0.5-0.9) mg/dL GFR Calculation 105.4 (90-130) mL/min Glucose 274 H (65-115) mg/dL Calculated Osmolal ity 288 (285-295) mOsm/k g Calcium 8.6 (8.5-10.5) mg/dL Magnesium 1.9 (1.7-2.3) mg/dL Total Bilirubin 0.4 (0.15-1.2) mg/dL AST 16 (0-32) U/L ALT 20 (0-33) U/L Alkaline Phosphata se 200 H (35-105) IU/L Troponin T Baselin e (0-10) ng/L Total Protein 6.2 L (6.6-8.7) g/dL Albumin 3.9 (3.5-5.2) g/dL Globulin 2.3 (1.3-4.6) g/dL Lipase 7 L (13-60) U/L 03/31/20 Range/Units 21:50 WBC (4.0-10.0) 10^3/ uL RBC (4.1-5.3) 10^6/u L Hgb (11.5-15.3) g/dL Hct (37.0-47.0) % MCV (81-99) fL MCH (28.0-34.0) pg MCHC (30.0-36.0) g/dL RDW (12.1-15.1) % Plt Count (130-400) 10^3/c mm MPV (7.4-10.4) fL Neut % (Auto) % Lymph % (Auto) % Trego % (Auto) % Eos % (Auto) % Baso % (Auto) % Neut # (Auto) (1.8-7.7) 10^3/u L Lymph # (Auto) (0.8-4.8) 10^3/u L Trego # (Auto) (0.2-0.9) 10^3/u L Eos # (Auto) (0.0-0.8) 10^3/u L Baso # (Auto) (0.0-0.1) 10^3/u L Nucleated RBC % (a uto) % Nucleated RBCs # /100WBC PT (12.1-14.9) SECO NDS INR (0.8-1.2) Sodium (136-145) mmol/L Potassium (3.5-5.1) mmol/L Chloride (98-107) mmol/L Carbon Dioxide (22-29) mmol/L Anion Gap (5-19) BUN (6-20) mg/dL Creatinine (0.5-0.9) mg/dL GFR Calculation (90-130) mL/min Glucose (65-115) mg/dL Calculated Osmolal ity (285-295) mOsm/k g Calcium (8.5-10.5) mg/dL Magnesium (1.7-2.3) mg/dL Total Bilirubin (0.15-1.2) mg/dL AST (0-32) U/L ALT (0-33) U/L Alkaline Phosphata se (35-105) IU/L Troponin T Baselin e 8 (0-10) ng/L Total Protein (6.6-8.7) g/dL Albumin (3.5-5.2) g/dL Globulin (1.3-4.6) g/dL Lipase (13-60) U/L EKG Data^: EKG 1: Attestation: I personally reviewed and interpreted this EKG as follows: EKG interpretation date: 03/31/20 EKG interpretation time: 21:33 Interpretation: Normal sinus rhythm at 79 beats a minute, no blocks, normal intervals, nonspecific ST and T wave changes. Significant wandering baseline artifact. EKG 2: Attestation: I personally reviewed and interpreted this EKG as follows: EKG interpretation date: 03/31/20 EKG interpretation time: 23:22 Interpretation: Normal sinus rhythm at 80 beats a minute, nonspecific ST and T wave changes. Discharge Plan Discharge Patient Disposition: Placed in Observation Clinical Impression: Chest pain Qualifiers: Chest pain type: unspecified Qualified Code(s): R07.9 - Chest pain, unspecified Coding Level of Care Code ED Power And Recovery Superintendent for Chg Fwd Exam Comprehensive
[2020-03-31 22:10] LABS: Basophils # 0.1 10^3/uL (0.0-0.1); Basophils % 1.3 %; Eosinophils # 0.4 10^3/uL (0.0-0.8); Eosinophils % 3.9 %; Hematocrit 42.6 % (37.0-47.0); Lymphocytes # 2.3 10^3/uL (0.8-4.8); Mean Corpuscular HGB Conc 30.5 g/dL (30.0-36.0); Mean Corpuscular Hemoglobin 26.6 pg (28.0-34.0); Mean Corpuscular Volume 87.1 fL (81-99); Monocytes # 0.6 10^3/uL (0.2-0.9); Monocytes % 6.1 %; Neutrophils # 5.86 10^3/uL (1.8-7.7); Neutrophils % 63.5 %; Nucleated Red Blood Cells % 0 %; Platelet Count 180 10^3/cmm (130-400); Red Blood Count 4.89 10^6/uL (4.1-5.3); Red Cell Distribution Width 16.3 % (12.1-15.1); White Blood Count 9.2 10^3/uL (4.0-10.0)
[2020-03-31 22:13] LABS: INR 0.91 (0.8-1.2)
[2020-03-31 22:20] LABS: Troponin(5th) Baseline 8 ng/L (0-10)
[2020-03-31 22:21] LABS: Alanine Aminotransferase 20 U/L (0-33); Albumin Level 3.9 g/dL (3.5-5.2); Alkaline Phosphatase 200 IU/L (35-105); Aspartate Amino Transferase 16 U/L (0-32); Blood Urea Nitrogen 12 mg/dL (6-20); Calcium 8.6 mg/dL (8.5-10.5); Carbon Dioxide 23 mmol/L (22-29); Chloride 100 mmol/L (98-107); Globulin 2.3 g/dL (1.3-4.6); Glomerular Filtration Rate 105.4 mL/min (90-130); Glucose 274 mg/dL (65-115); Lipase 7 U/L (13-60); Magnesium 1.9 mg/dL (1.7-2.3); Osmolality Calculated 288 mOsm/kg (285-295); Sodium 134 mmol/L (136-145); Total Bilirubin 0.4 mg/dL (0.15-1.2); Total Protein 6.2 g/dL (6.6-8.7)
--- NOTE | 2020-03-31 22:39 | P.HP_ITS ---
Providers/Chief Complaint Primary Care Provider: Nel Peacock MD Chief Complaint: CHEST PAIN History of Present Illness Erin Kelley is a 49 year old female who carries history of seropositive rheumatoid arthritis, on steroids, hydroxychloroquine and Actemra, dyslipidemia, type 2 diabetes, portal vein thrombosis, chronic anticoagulation with Eliquis came in today for chief complaint of chest pain. Patient is stating that her symptoms of chest discomfort started about 2-1/2 weeks ago, she is able to pinpoint an area below her left breast, chest discomfort would get worse on any kind of physical activity and movement especially bending forward, she has not noticed any fever but she is endorsing nausea, diaphoresis, radiation of pain towards the left arm and shortness of breath. Her symptoms would last for about 5 to 10 minutes, she took 3 nitroglycerin which helped her with her symptoms. She is denying dysuria, orthopnea, PND, lower extremity swelling. Patient is smoking less 1 pack a day, currently on bupropion and using nicotine replacement therapy/nicotine patches as well. Diagnosis in the ER revealed normal CBC,, BMP, troponin not significantly high, EKG did not show ischemic or infarctive changes however nonspecific T wave changes in inferior lateral leads, at the time my evaluation patient is chest pain-free, normal hemodynamics Review of records revealed that she has been having recurrent chest pain in the past as well with exertional shortness of breath she has been evaluated by Dr. Vernon who did stress test December 2018 which revealed possibly an artifact, Review of Systems Const: Reports: chills, body aches, fatigue and malaise; Denies: fever(s) or change in appetite Eyes: Denies: change in vision ENMT: Denies: throat pain Card: Reports: chest pain and dyspnea on exertion; Denies: swelling of feet/ankles or orthopnea Resp: Reports: dyspnea GI: Denies: abdominal pain, diarrhea or constipation : Denies: flank pain Musc: Denies: neck pain Skin/Breast: Denies: lesions Neuro: Reports: headache(s) Psych: Reports: anxiety Endo: Denies: polyuria Jewel/Lymph: Denies: easy bruising All/Imm: Denies: urticaria Medications/Allergies Home Medications Medication Instructions Recorded Confirmed Last Taken Type apixaban 5 mg tablet 5 mg PO BID 09/04/19 03/24/20 12/12/19 History enalapril maleate 20 mg tablet 20 mg PO DAILY 09/04/19 03/24/20 12/11/19 History insulin glargine 100 unit/mL 55 unit SUBCUT DAILY 09/04/19 03/24/20 12/12/19 History subcutaneous solution prednisone 5 mg tablet 5 mg PO DAILY 09/04/19 03/24/20 12/11/19 History ropinirole 2 mg tablet 2 mg PO BEDTIME 09/04/19 03/24/20 12/11/19 History rosuvastatin 20 mg tablet 20 mg PO DAILY 09/04/19 03/24/20 12/12/19 History clobetasol 0.05 % topical cream 1 applic TOPICAL BID PRN 09/05/19 03/24/20 Unknown History escitalopram oxalate 20 mg tablet 20 mg PO DAILY 09/05/19 03/24/20 12/12/19 History gabapentin 300 mg capsule See Rx Instructions .ROUTE 09/05/19 03/24/20 12/12/19 History .COMPLEX cap omeprazole 40 mg capsule,delayed 40 mg PO DAILY cap 09/05/19 03/24/20 12/12/19 History release ondansetron HCl 4 mg tablet 4 mg PO Q8H PRN 09/05/19 03/24/20 10/30/19 History prednisone 2.5 mg tablet 2.5 mg PO DAILY tab 09/05/19 03/24/20 12/11/19 History nitroglycerin 0.4 mg sublingual 0.4 mg SUBLINGUAL Q5M PRN 30 Days 09/09/19 03/24/20 Unknown Rx tablet #25 tab isosorbide dinitrate 30 mg tablet 15 mg PO BID 90 Days #90 tab 10/03/19 03/24/20 12/12/19 Rx Glucagon (HCl) Emergency Kit See Rx Instructions .ROUTE .COMPLEX 11/01/19 03/24/20 Unknown History aspirin [Aspir-81] 81 mg PO DAILY 11/01/19 03/24/20 12/12/19 History epinephrine [EpiPen 2-Carrington] See Rx Instructions .ROUTE .COMPLEX 11/01/19 03/24/20 Unknown History insulin aspart U-100 [Novolog 20 unit SUBCUT TID 11/01/19 03/24/20 12/12/19 History Flexpen U-100 Insulin] tramadol 50 mg tablet 50 mg PO TID PRN #90 tab 11/01/19 03/24/20 12/12/19 Rx ASO ankle brace #1 ea 12/31/19 03/24/20 Unknown Rx trazodone 50 mg tablet 50 mg PO .BEDTIME tab 01/09/20 03/24/20 Unknown History ibuprofen 800 mg tablet 800 mg PO BID PRN tab 01/29/20 03/24/20 Unknown History cam boot #1 ea 01/30/20 03/24/20 Unknown Rx hydroxychloroquine 200 mg tablet 200 mg PO BID #60 tab 01/30/20 03/24/20 Unknown Rx tocilizumab 162 mg/0.9 mL See Rx Instructions .ROUTE 01/30/20 03/24/20 Unknown Rx subcutaneous pen injector .COMPLEX #0.9 ml wheel hair #1 ea 01/30/20 03/24/20 Unknown Rx cilostazol 50 mg tablet 50 mg PO BID #60 tab 02/25/20 03/24/20 Unknown Rx baclofen 20 mg tablet 20 mg PO QID #120 tab 03/18/20 03/24/20 Unknown Rx duloxetine 30 mg capsule,delayed 30 mg PO DAILY 30 Days #30 cap 03/18/20 03/24/20 Unknown Rx release metoprolol succinate 25 mg 12.5 mg PO DAILY #45 each 03/18/20 03/24/20 Unknown Rx tablet,extended release 24 hr oxycodone 15 mg tablet 15 mg PO BID PRN 30 Days #60 tab 03/18/20 03/24/20 Unknown Rx oxycodone 15 mg tablet 15 mg PO BID PRN 30 Days #60 tab 03/18/20 03/24/20 Unknown Rx glycopyrrolate 9 mcg-formoterol 2 puff INHALATION BID #10.7 gm 03/24/20 03/24/20 Unknown Rx 4.8 mcg HFA aerosol inhaler ipratropium 20 mcg-albuterol 100 1 puff INHALATION Q6H PRN #4 gm 03/24/20 03/24/20 Unknown Rx mcg/actuation mist for inhalation nicotine 21 mg/24 hr daily 1 patch TRANSDERMA DAILY #14 each 03/24/20 03/24/20 Unknown Rx transdermal patch secukinumab 150 mg/mL subcutaneous 150 mg SUBCUT .qmonth #1 ml 03/30/20 Unknown Rx pen injector Allergies Allergy/AdvReac Type Severity Reaction Status Date / Time bee venom protein (honey bee) Allergy ALGY-Anaphy Verified 03/31/20 23:50 laxis PFSH Acute PFSH: Medical History Cervical spondylosis DDD (degenerative disc disease), cervical Diabetes Encounter for long-term (current) use of NSAIDs Essential hypertension Fibromyalgia Fracture Long-term current use of opiate analgesic Osteoporosis Pain management contract signed Pain, joint, multiple sites Rheumatoid arthritis Tobacco use disorder Surgical History H/O dilation and curettage Hx laparoscopic cholecystectomy Hx of section (~1989) Hx of hysterectomy Family History Mother Stroke Cancer SKIN CANCER Sister Stroke Other Diabetes Myocardial infarct Denies family history of Anesthesia complication Bleeding disorder Social History Smoking and tobacco status: current every day smoker cigarettes Packs smoked per day: 0.5 Years cigarettes smoked: 40 Quit status (tobacco): has tried quititng Second hand smoke exposure: Yes Alcohol intake: former Caregiver/support person: Yes Lives independently: Yes Household members: spouse Marital status: Current occupational status: disabled History of recent travel: No Current gender identity: Female Vitals/I&O/Wt Last Vital Signs BP 115/67 03/31/20 21:26 Weight last 48 hrs Weight 86.183 kg Physical Exam Narrative: EXAM NARRATIVE: Middle-aged female currently chest pain- free in the ER Hemodynamically stable Abdomen nondistended nontender bowel sound present S1, S2 no tachycardia or signs of heart failure Bilateral breath sounds without adventitious rhonchi or crackles Very strong nicotine odor in the room No lower extremity edema gangrene ulcer Appropriate mood and affect EOMI, PERRLA Facial scar noted No neurological deficit She has reproducible left-sided chest pain Data : 03/31/20 21:50 03/31/20 21:50 A&P Assessment and plan (1) Atypical chest pain: Status: Acute (2) Claudication: Status: Acute (3) Emphysema/COPD: Status: Acute Qualifiers: Emphysema type: centrilobular Qualified Code(s): J43.2 - Centrilobular emphysema (4) Cigarette smoker motivated to quit: Status: Acute (5) Rheumatoid arthritis: Status: Acute Qualifiers: Rheumatoid arthritis location: unspecified site Rheumatoid factor presence: unspecified presence Qualified Code(s): M06.9 - Rheumatoid arthritis, unspecified Additional A&P Information Atypical chest pain Heart score 4 Has multiple risk factors for coronary disease such as diabetes, hypertension, rheumatoid arthritis/inflammatory disease, active smoker, nonspecific T wave changes, left atrial enlargement, Patient is experiencing reproducible left-sided chest pain Troponin not similarly high, EKG showing nonspecific T wave changes I would get Lexiscan stress test in the morning N.p.o. after midnight, hold metoprolol succinate, continue Imdur for antianginal effect Obtain echo in the morning COPD, no acute exacerbation: Patient is currently trying to quit, she is on nicotine replacement therapy and bupropion I would resume nicotine patch for now Rheumatoid arthritis: Currently following up with gusset stitcher, I would resume her prednisone, she has not been taking Tocilizumab Polypharmacy Patient is on multiple antipsychotics, antidepressants, muscle relaxant therapies, before discharge currently we address her medications to avoid potential side effects Intermittent claudication She has been put on cilostazol, I would continue for now Chronic anticoagulation with Eliquis for portal vein thrombosis DVT prophylaxis not needed because of Eliquis use N.p.o. after midnight Full code Attestations Medical Necessity Statement*: Anticipating discharge in less than 48 hours currently need cardiac stress test to rule out coronary ischemia for underlying atypical chest pain because of her heart score 4 Time Spent in Patient Care: (>than 50% of time spent in counselling and/or direct pt care on unit) . 50mins Coding Level of Care Code Acute Chief Financial Officer for Ayshag Fwd Diagnoses Atypical chest pain R07.89 Claudication I73.9 Emphysema/COPD J43.2 Emphysema type: centrilobular Cigarette smoker motivated to quit F17.210 Rheumatoid arthritis M06.9 Rheumatoid arthritis location: unspecified site Rheumatoid factor presence: unspecified presence
--- NOTE | 2020-03-31 23:18 | ECG_ITS ---
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 Measurements Intervals [place] Rate: 80 P: 61 MN: 157 QRS: 68 QRSD: 89 T: 89 QT: 429 QTc: 495 Interpretive Statements SINUS RHYTHM MINIMAL ST DEPRESSION [0.025+ mV ST DEPRESSION] Compared to ECG 03/31/2020 21:33:26 No significant changes Electronically Signed On 04-01-2020 13:59:31 CDT by Galina Bradshaw M.D. [email or web address] ([employer])[facility] centerGenius Blends/store/OM/[id number]
[2020-03-31 23:21] VITALS: BP 117/76; PULSE 82; RESP 18; O2SAT 96
[2020-03-31 23:30] VITALS: TEMP 36.5
--- NOTE | 2020-03-31 23:49 | ECG_ITS ---
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 Interpretive Statements NAME OF STUDY: LEXISCAN SESTAMIBI STRESS TEST INDICATION: Chest Pain PROCEDURE: At the baseline, the blood pressure was 157/82 mmHg, oxygen saturation 95% with a heart rate of 82 bpm. The electrocardiogram showed normal sinus rhythm, normal axis with normal ST and T's. The Lexiscan was infused over a period of 20 seconds. A total of 0.4 milligrams of Lexiscan was infused. The stress phase was continued for a total of 5 minutes. Heart rate at the end of the stress phase was 92 bpm, oxygen saturation 97% with a blood pressure 156/79 mmHg. The EKG at the peak infusion revealed normal sinus rhythm at [address]pm [address] no significant [address]-T wave changes. Sestamibi was injected 20 seconds after the Lexiscan infusion. Blood pressure at the end of the recovery phase was 156/81 mmHg, oxygen saturation 96% with a heart rate of 92 beats per minute. CONCLUSION: 1. Normal EKG response to LexiScan infusion. 2. No LexiScan induced chest pain or cardiac arrhythmia. 3. Normal blood pressure and heart rate response. 4. Sestamibi/sestamibi perfusion scan pending; see separate report. Electronically Signed On 04-01-2020 11:39:09 CDT by Galina Bradshaw M.D. [id number]
--- NOTE | 2020-03-31 23:51 | PC.NURSE ---
Patient states she uses [facility] for all of her medications except one and [facility] has one medication that she takes at home. Patient does not have home medication list with her at this time. Unable to complete med red at this time. Patient arrived to the floor after report was received from ED. Patient is alert and oriented and ambulatory and is not complaining of any pain at this time. Patient has been oriented to her room and has call light within reach.
[2020-04-01] VITALS (9 sets, daily range): BP systolic 134–160; BP diastolic 71–91; PULSE 77–92; RESP 14–26; TEMP 36.4–36.8; O2SAT 94–99
--- NOTE | 2020-04-01 00:24 | PC.NURSE ---
Patient got up to use the bathroom and complained of slight chest pain. Patient's pain resolved after she layed back down. Patient states when I take a big deep breath, it hurts.
--- NOTE | 2020-04-01 00:25 | PC.NURSE ---
Patient states that she already took all of her nighttime home medications including Gabapentin, Trazodone, and Requip.
[2020-04-01 00:40] LABS: Troponin 5 2HR 7.41 ng/L (0-10); Troponin 5 2HR Delta -0.59 ABS# (0-10)
--- NOTE | 2020-04-01 00:40 | PC.NURSE ---
Dr. Wahl notified of patient asking for Tramadol. Patient states she already took her two doses of oxycodone for the day at home. Also notified of being unable to verify med rec list at this time. Ordered to give one time dose of 50 mg of Tramadol.
[2020-04-01] MEDS: TRAMadol 50 mg Tablet PO (01:03)
--- NOTE | 2020-04-01 01:43 | PC.NURSE ---
Unable to reassess pain on the mar. Patient is currently resting with eyes closed. Will monitor.
--- NOTE | 2020-04-01 03:09 | PC.NURSE ---
Patient is refusing a hospital gown at this time.
--- NOTE | 2020-04-01 03:18 | ECG_ITS ---
[facility] Test Date: 2020-04-01 Pat Name: Erin Kelley Department: Room: 105 Gender: Female [employer]: : 1970 Requested By: Manju Coto Order Number: [id number] Massey MD: Galina Bradshaw M.D. Measurements Intervals [place] Rate: 81 P: 67 CO: 155 QRS: 67 QRSD: 80 T: 78 QT: 400 QTc: 464 Interpretive Statements SINUS RHYTHM POSSIBLE LEFT ATRIAL ENLARGEMENT [-0.1mV P WAVE IN V1/V2] MINIMAL ST DEPRESSION [0.025+ mV ST DEPRESSION] Compared to ECG 03/31/2020 23:22:40 No significant changes Electronically Signed On 04-01-2020 13:58:10 CDT by Galina Bradshaw M.D. [email or web address]
[2020-04-01 04:31] LABS: Basophils # 0.1 10^3/uL (0.0-0.1); Basophils % 0.8 %; Eosinophils # 0.2 10^3/uL (0.0-0.8); Eosinophils % 2.3 %; Hematocrit 37.1 % (37.0-47.0); Hemoglobin 11.7 g/dL (11.5-15.3); Lymphocytes # 1.3 10^3/uL (0.8-4.8); Lymphocytes % 14.9 %; Mean Corpuscular HGB Conc 31.5 g/dL (30.0-36.0); Mean Corpuscular Hemoglobin 26.5 pg (28.0-34.0); Mean Corpuscular Volume 84.1 fL (81-99); Mean Platelet Volume 10.3 fL (7.4-10.4); Monocytes # 0.3 10^3/uL (0.2-0.9); Monocytes % 3.7 %; Neutrophils # 7.01 10^3/uL (1.8-7.7); Nucleated Red Blood Cells % 0 %; Platelet Count 133 10^3/cmm (130-400); Red Blood Count 4.41 10^6/uL (4.1-5.3); Red Cell Distribution Width 16.1 % (12.1-15.1)
[2020-04-01 04:55] LABS: Anion Gap 12.3 (5-19); Blood Urea Nitrogen 11 mg/dL (6-20); Carbon Dioxide 25 mmol/L (22-29); Chloride 101 mmol/L (98-107); Glomerular Filtration Rate 130.1 mL/min (90-130); Glucose 470 mg/dL (65-115); Osmolality Calculated 298 mOsm/kg (285-295); Potassium 4.3 mmol/L (3.5-5.1); Sodium 134 mmol/L (136-145)
[2020-04-01 06:24] LABS: Glucose Point of Care 414 mg/dL (70-110)
[2020-04-01] MEDS: regadenoson 0.4 Mg/5 ml Syringe IVP (08:23)
--- NOTE | 2020-04-01 08:34 | PC.NURSE ---
Patient to nuclear medicine at [id number]
[2020-04-01] MEDS: insulin glargine 100 units/1 mL 55 UNIT SUBCUT (10:48)
[2020-04-01] MEDS: predniSONE 5 mg Tablet 7.5 MG PO (10:53)
[2020-04-01] MEDS: gabapentin 300 mg Capsule PO (10:53)
[2020-04-01] MEDS: atorvastatin 40 mg Tablet 80 MG PO (10:54)
[2020-04-01] MEDS: apixaban 5 mg Tablet PO (10:55)
[2020-04-01] MEDS: cilostazol 100 mg Tablet 50 MG PO (10:55)
[2020-04-01] MEDS: pantoprazole DR 40 mg Tablet PO (10:55)
[2020-04-01] MEDS: isosorbide dinitrate 20 mg Tablet 15 MG PO (10:56)
[2020-04-01] MEDS: duloxetine 30 mg Capsule PO (10:56)
[2020-04-01] MEDS: aspirin 81 mg EC Tablet PO (10:57)
[2020-04-01] MEDS: baclofen 10 mg Tablet 20 MG PO (10:57)
[2020-04-01] MEDS: nicotine 21 mg Patch 1 PATCH TRANSDERMA (10:58)
[2020-04-01] MEDS: oxyCODONE 5 mg IR Tab/Cap 15 MG PO (11:12)
[2020-04-01 11:15] LABS: Glucose Point of Care 458 mg/dL (70-110)
--- NOTE | 2020-04-01 11:51 | PC.CHAP ---
Pastoral Care Encounter/Spiritual Assessment Type of Contact [] Declined paint supervisor visit [] Patient/Family/Request visit [] Outpatient visit [] Follow-up visit [] Physician referral [] Code/Alert [X] Routine visit [] Staff referral [] Actively dying [] Patient sleeping [] Family support [] [] Out of room [] Palliative care [] [] Receiving care in room [] Pre-surgical visit [] Trauma [] Long length of stay [] ICU visit [] Other: Relational/Emotional Strength [] Patient feels connected with others/family/visitors/staff [] Distress [] Loneliness/isolation [] Abandonment Spirituality of Patient [] Person of Yadira [] Attends [employer]ian of their Yadira [] Believes in Prayer [] Reads Bible or Nondenominational materials [] There are Spiritual issues to be addressed Ict Analyst Interventions [] Prayer [] Active listening [] Non-anxious presence [] Spiritual/emotional support [] Crisis/trauma care [] Spiritual counseling [] Bereavement support [] Provided bereavement packet [] Provided Bible/devotional materials [] Provided toy/stuffed animal, coloring book to patient or family member [] Provided Communion [] Anointing/[place] [] Salvation [] Completed spiritual assessment [] Other: Impact on Illness or Injury [] Angry [] Fearful [] Anxious [] Often cries [] Exhaustion [] Unable to work [] Unable to attend mormonism [] Unable to walk/stand [] Unable to read [] Unable to drive [] Unable to eat/drink [] Unable to sleep [] Unable to be with family [] Patient intubated [] Other: Summary Time spent with patient
--- NOTE | 2020-04-01 12:31 | PM.DCS ---
Discharge Providers Date of Admission: 03/31/20 22:42 Date of Discharge: April 01, 2020 Attending Provider at Admission: Tiffany Wahl MD Attending Provider at Discharge: Graham Gilmore MD Primary Care Provider: Nel Peacock MD Diagnoses at Discharge Discharge Diagnosis (1) Atypical chest pain: Status: Acute (2) Claudication: Status: Acute (3) Emphysema/COPD: Status: Acute Qualifiers: Emphysema type: centrilobular Qualified Code(s): J43.2 - Centrilobular emphysema (4) Cigarette smoker motivated to quit: Status: Acute (5) Rheumatoid arthritis: Status: Acute Qualifiers: Rheumatoid arthritis location: unspecified site Rheumatoid factor presence: unspecified presence Qualified Code(s): M06.9 - Rheumatoid arthritis, unspecified Reason for Visit Reason for Visit: CHEST PAIN Hospital Course Hospital Course: 49 year old female who carries history of seropositive rheumatoid arthritis, on steroids, hydroxychloroquine and Actemra, dyslipidemia, type 2 diabetes, portal vein thrombosis, chronic anticoagulation with Eliquis was admitted for work-up of cardiac chest pain. chest came in today for chief complaint of chest pain. On admission patient stated that her symptoms of chest discomfort started about 2-1/2 weeks ago, she was able to pinpoint an area below her left breast, chest discomfort would get worse on any kind of physical activity and movement especially bending forward, she has not noticed any fever but she is endorsing nausea, diaphoresis, radiation of pain towards the left arm and shortness of breath. Her symptoms would last for about 5 to 10 minutes, she took 3 nitroglycerin which helped her with her symptoms. Her Troponins during the hospital stay remained flat. EKG was not suggestive of any acute myocardial injury ( SINUS RHYTHM POSSIBLE LEFT ATRIAL ENLARGEMENT [-0.1mV P WAVE IN V1/V2] MINIMAL ST DEPRESSION [0.025+ mV ST DEPRESSION] Compared to ECG 03/31/2020 23:22:40 No significant changes) LEXISCAN SESTAMIBI STRESS TEST: 1. Normal EKG response to LexiScan infusion. 2. No LexiScan induced chest pain or cardiac arrhythmia. 3. Normal blood pressure and heart rate response. 4. Sestamibi/sestamibi perfusion scan pending; see separate report. X-ray chest: Lungs: No lung consolidation or pulmonary edema. Pleural space: No pleural effusion or pneumothorax.Heart/Mediastinum: The cardiac silhouette is not enlarged. The mediastinal contours are normal.Bones/joints: No acute osseous abnormality. Patient was discharged in stable condition to follow with front line supervisor as an outpatient. Physical Exam Narrative: EXAM NARRATIVE: Narrative EXAM NARRATIVE: Middle-aged female currently chest pain-free in the ER Hemodynamically stable Abdomen nondistended nontender bowel sound present S1, S2 no tachycardia or signs of heart failure Bilateral breath sounds without adventitious rhonchi or crackles Very strong nicotine odor in the room No lower extremity edema gangrene ulcer Appropriate mood and affect EOMI, PERRLA Facial scar noted No neurological deficit She has reproducible left-sided chest pain Discharge Data Data Completed and Pending: Completed Studies During Hospitalization Category Date Time Status Sestamibi Stress Test Request Routi ne Exams 03/31/20 23:49 Completed XR chest 1V marciano ble [id number] Stat Exams 03/31/20 21:17 Completed NM kyle perf SPECT r/s* [id number] Routin e Nuc Med 04/01/20 23:49 Completed Labs from last 24 hours 04/01/20 04/01/20 04/01/20 10:53 06:21 03:40 WBC RBC Hgb Hct MCV MCH MCHC RDW Plt Count MPV Neut % (Auto) Lymph % (Auto) [place] % (Auto) Eos % (Auto) Baso % (Auto) Neut # (Auto) Lymph # (Auto) [place] # (Auto) Eos # (Auto) Baso # (Auto) Nucleated RBC % (a uto) Nucleated RBCs # PT INR Sodium 134 L Potassium 4.3 Chloride 101 Carbon Dioxide 25 Anion Gap 12.3 BUN 11 Creatinine 0.5 GFR Calculation 130.1 H Glucose 470 H POC Glucose 458 414 Calculated Osmolal ity 298 H Calcium 8.0 L Magnesium Total Bilirubin AST ALT Alkaline Phosphata se Troponin T Baselin e Troponin T 120 Min [place] Troponin T Total Protein Albumin Globulin Lipase 04/01/20 03/31/20 03/31/20 03:40 23:39 21:50 WBC 9.0 RBC 4.41 Hgb 11.7 Hct 37.1 MCV 84.1 MCH 26.5 L MCHC 31.5 RDW 16.1 H Plt Count 133 MPV 10.3 Neut % (Auto) 78.0 Lymph % (Auto) 14.9 [place] % (Auto) 3.7 Eos % (Auto) 2.3 Baso % (Auto) 0.8 Neut # (Auto) 7.01 Lymph # (Auto) 1.3 [place] # (Auto) 0.3 Eos # (Auto) 0.2 Baso # (Auto) 0.1 Nucleated RBC % (a uto) 0 Nucleated RBCs # 0.0 PT INR Sodium Potassium Chloride Carbon Dioxide Anion Gap BUN Creatinine GFR Calculation Glucose POC Glucose Calculated Osmolal ity Calcium Magnesium Total Bilirubin AST ALT Alkaline Phosphata se Troponin T Baselin e 8 Troponin T 120 Min [place] 7.41 Delta Troponin T -0.59 L Total Protein Albumin Globulin Lipase 03/31/20 03/31/20 03/31/20 21:50 21:50 21:50 WBC 9.2 RBC 4.89 Hgb 13.0 Hct 42.6 MCV 87.1 MCH 26.6 L MCHC 30.5 RDW 16.3 H Plt Count 180 MPV 11.0 H Neut % (Auto) 63.5 Lymph % (Auto) 25.0 [place] % (Auto) 6.1 Eos % (Auto) 3.9 Baso % (Auto) 1.3 Neut # (Auto) 5.86 Lymph # (Auto) 2.3 [place] # (Auto) 0.6 Eos # (Auto) 0.4 Baso # (Auto) 0.1 Nucleated RBC % (a uto) 0 Nucleated RBCs # 0.0 PT 12.50 INR 0.91 Sodium 134 L Potassium 4.0 Chloride 100 Carbon Dioxide 23 Anion Gap 15.0 BUN 12 Creatinine 0.6 GFR Calculation 105.4 Glucose 274 H POC Glucose Calculated Osmolal ity 288 Calcium 8.6 Magnesium 1.9 Total Bilirubin 0.4 AST 16 ALT 20 Alkaline Phosphata se 200 H Troponin T Baselin e Troponin T 120 Min [place] Troponin T Total Protein 6.2 L Albumin 3.9 Globulin 2.3 Lipase 7 L Vitals: Last Vital Signs Temp 97.8 F 04/01/20 11:09 Pulse 92 04/01/20 11:09 Resp 18 04/01/20 11:12 BP 143/91 04/01/20 11:09 Pulse Ox 96 04/01/20 11:12 Discharge Plan Discharge Patient Disposition: Home Condition: Stable Prescriptions: Continued escitalopram oxalate [Lexapro] 20 mg tablet 20 mg PO DAILY RF: 0 omeprazole 40 mg capsule,delayed release(DR/EC) 40 mg PO DAILY RF: 0 tramadol 50 mg tablet 50 mg PO TID PRN (Reason: pain) Qty: 90 RF: 0 trazodone 50 mg tablet 50 mg PO BEDTIME RF: 0 prednisone 5 mg tablet 7.5 mg PO DAILY RF: 0 rosuvastatin [Crestor] 20 mg tablet 20 mg PO DAILY RF: 0 Eliquis 5 mg tablet 5 mg PO BID RF: 0 ropinirole 2 mg tablet 2 mg PO BEDTIME RF: 0 Lantus U-100 Insulin 100 unit/mL solution 50 unit SUBCUT BEDTIME RF: 0 clobetasol 0.05 % cream 1 applic TOPICAL BID PRN (Reason: Skin Irritation) RF: 0 gabapentin 300 mg capsule See Rx Instructions .ROUTE .COMPLEX RF: 0 ondansetron HCl [Zofran] 4 mg tablet 4 mg PO Q8H PRN (Reason: Nausea) RF: 0 ibuprofen 800 mg tablet 800 mg PO BID PRN (Reason: Pain) RF: 0 duloxetine [Cymbalta] 30 mg capsule,delayed release(DR/EC) 30 mg PO DAILY 30 Days Qty: 30 RF: 5 oxycodone 15 mg tablet 15 mg PO BID PRN (Reason: pain) 30 Days Qty: 60 RF: 0 Bevespi Aerosphere 9-4.8 mcg HFA aerosol inhaler 2 puff INHALATION BID Qty: 10.7 RF: 3 nicotine 21 mg/24 hr patch 24 hour 1 patch TRANSDERMA DAILY Qty: 14 RF: 2 Combivent Respimat 20-100 mcg/actuation mist 1 puff INHALATION Q6H PRN (Reason: UNKNOWN) Qty: 4 RF: 3 nitroglycerin [Nitrostat] 0.4 mg tablet, sublingual 0.4 mg SUBLINGUAL Q5M PRN (Reason: chest pain) 30 Days Qty: 25 RF: 6 isosorbide dinitrate 30 mg tablet 15 mg PO BID 90 Days Qty: 90 RF: 3 hydroxychloroquine 200 mg tablet 200 mg PO BID Qty: 60 RF: 1 cilostazol 50 mg tablet 50 mg PO BID Qty: 60 RF: 1 metoprolol succinate 25 mg tablet extended release 24 hr 12.5 mg PO DAILY Qty: 45 RF: 3 Cosentyx Pen 150 mg/mL pen injector 150 mg SUBCUT .qmonth Qty: 1 RF: 5 aspirin [Aspir-81] 81 mg Tablet,Delayed Release (Dr/Ec) 81 mg PO DAILY RF: 0 epinephrine [EpiPen 2-[place]] 0.3 mg/0.3 mL Auto-Injector See Rx Instructions .ROUTE .COMPLEX PRN (Reason: Allergic Reaction) RF: 0 insulin aspart U-100 [Novolog Flexpen U-100 Insulin] 100 unit/mL (3 mL) insulin pen See Rx Instructions .ROUTE .COMPLEX RF: 0 Glucagon (HCl) Emergency Kit 1 mg Recon Soln 1 mg SUBCUT Q20M PRN (Reason: blood sugar) Qty: 0 RF: 0 baclofen 10 mg Tablet 20 mg PO QID PRN (Reason: Pain) RF: 0 albuterol sulfate 2.5 mg /3 mL (0.083 %) Solution For Nebulization 2.5 mg INHALATION Q6H PRN (Reason: Shortness Of Breath) RF: 0 DOK 100 mg Capsule 200 mg PO DAILY PRN (Reason: Constipation) RF: 0 Chantix 1 mg Tablet 1 mg PO . DIRECTED RF: 0 Discharge Orders: Discharge Order (Routine); Ordered 04/01/20 Ordered By: Graham Gilmore Referrals: Nel Peacock MD [Primary Care Provider] - (Please follow-up with Dr. Peacock on at 11:00a.m. If you have any questions or need to reschedule. Please call ) Tiffany Hardy MD [Physician] - 1 week (Please follow-up with Tatiana Dunn on at 10:30p.m. If you have any questions or need to reschedule. Please call ) Discharge Diet: Diabetic and Low Salt Discharge Activity: Resume usual activity Patient Instructions: Chest Pain (DC), Chest Pain Stoplight Discharge Date/Time: 04/01/20 13:45 Discharge Attestations Time Spent in Discharge Care*: greater than 30 min Quality Metrics Clinical Quality Measures During this hospital stay, did patient experience: None Coding Level of Care Code Acute Power Hair Clipper for Chg Fwd Diagnoses Atypical chest pain R07.89 Claudication I73.9 Emphysema/COPD J43.2 Emphysema type: centrilobular Cigarette smoker motivated to quit F17.210 Rheumatoid arthritis M06.9 Rheumatoid arthritis location: unspecified site Rheumatoid factor presence: unspecified presence
--- NOTE | 2020-04-01 16:50 | PC.RESP ---
Smoking Cessation information sent to patient.
--- NOTE | 2020-04-01 23:49 | NMCV_ITS ---
NM kyle perf SPECT r/s* [id number] Erin Kelley Age: 49 Gender: F : 1970 Exam Date: 04/01/2020 07:33 Ordering Phys: Tiffany Wahl MD Technologist: REGINALD Bauer Exam Location: [facility] Indications: CHEST PAIN STRESS TEST Please see separate stress test report in [facility] for full findings IMAGE PROTOCOL Rest/Stress 1 Lexiscan Day Radiopharmaceutical Dose (mCi) Administration Site Administered by Rest: Tc-99m 10.9 IV REGINALD Walters Sestamibi Stress:Tc-99m 32.4 IV REGINALD Walters Sestamibi Rest: 01-Apr-2020 60 Discovery 630 Stress: 01-Apr-2020 30 Discovery 630 0.4mg Lexiscan. Images obtained in supine and prone position. SPECT RESULTS Technical Quality: Good Raw Data Analysis: Subdiaphragmatic activity Image Corrections: No attenuation or motion correction applied Summed Stress Score: 0 Summed Rest Score: 0 Summed Difference Score: 0 PERFUSION FINDINGS SPECT images demonstrate homogeneous tracer distribution throughout the myocardium. Sub diaphragmatic and breast attenuation artifact noted. FUNCTIONAL RESULTS (calculated via Gated SPECT) Stress Image LV EF (%): 71 Stress EDV (mL):68 TID: 0.69 Stress ESV (mL):20 FUNCTIONAL FINDINGS: The left ventricle is normal in size. Transient Ischemia Dilatation of 0.69. There is normal left ventricular systolic function. The left ventricular ejection fraction is normal with a value of 71%. There is normal left ventricular wall thickening. Normal end-diastolic and end-systolic volumes. IMPRESSIONS 1. Myocardial perfusion imaging is normal. Attenuation artifact noted in anterior wall. 2. Overall left ventricular systolic function is normal without regional wall motion abnormalities. 3. The left ventricular ejection fraction is normal with a value of 71%. 4. Scan indicates low risk for cardiac events. Galina Bradshaw MD (Electronically Signed) Final Date: 01 April 2020 11:36 S
== END 2020-04-01 13:45 | disposition home or self-care (01) ==
LOC: ER 22:49 → CSU 23:25
PROVIDERS: Emergency Medicine; Admitting Provider Internal Medicine; PCP Internal Medicine; Visit Provider Internal Medicine
DX: R07.89 Other chest pain (principal); I73.9 Peripheral vascular disease, unspecified; J43.2 Centrilobular emphysema; F17.210 Nicotine dependence, cigarettes, uncomplicated; M06.9 Rheumatoid arthritis, unspecified; Z79.52 Long term (current) use of systemic steroids; E78.5 Hyperlipidemia, unspecified; E11.9 Type 2 diabetes mellitus without complications; Z79.01 Long term (current) use of anticoagulants; Z79.82 Long term (current) use of aspirin; Z79.4 Long term (current) use of insulin; I10 Essential (primary) hypertension; M79.7 Fibromyalgia; M81.0 Age-related osteoporosis without current pathological fracture
CPT/HCPCS: 12345; 36415; 36416; 71045; 78452; 80048; 80053; 82962; 83690; 83735; 84484; 85025; 85610; 93005; 93017; 96372; 99283; 99285; A9500; G0378; J1815 ×2; J2785; J7512

== ENCOUNTER → 2020-04-08 14:01 | Outpatient (BNVA) | payer MEDICAID, SELFPAY | PROVIDERS: PCP Internal Medicine; Visit Provider Podiatrist Foot & Ankle Surgery | DX: S99.921A Unspecified injury of right foot, initial encounter (principal); X58.XXXA Exposure to other specified factors, initial encounter | CPT/HCPCS: 73630 ==

== ENCOUNTER → 2020-04-14 09:51 | Outpatient (BNVA) | payer MEDICAID, SELFPAY | PROVIDERS: PCP Internal Medicine; Visit Provider Specialist | DX: R41.82 Altered mental status, unspecified (principal); R55 Syncope and collapse; R56.9 Unspecified convulsions | CPT/HCPCS: 95816 ==

== ENCOUNTER 2020-05-18 09:19 | Inpatient (IN) | payer MEDICAID, SELFPAY ==
[2020-05-18] VITALS (18 sets, daily range): BP systolic 113–191; BP diastolic 60–127; PULSE 63–94; RESP 16–21; O2SAT 91–100; BMI 38.0
--- NOTE | 2020-05-18 | CT_ITS ---
WS: [id number] CT ABDOMEN PELVIS TECHNIQUE: Contrast-enhanced CT of the abdomen and pelvis with coronal and sagittal reformatted image s. CLINICAL INFORMATION: ABD PAIN COMPARISON: CT February 24, 2020 and November 01, 2019 DLP: 1748.[address] scans at [facility] use at least one of these dose optimization techniques: automat ed exposure control; mA and/or kV adjustment per patient size (includes targeted exams where dose is matched to clinical indication); or iterative reconstruction. FINDINGS: Mild diffuse fatty infiltration of the liver. Prior cholecystectomy. Normal spleen. Normal GE junctio n. Fatty atrophy of the pancreas. Atelectasis in the lung bases. Partially visualized perihilar opaci ty measuring 2.6 cm. This can be further evaluated with chest CT. Fatty atrophy of the pancreas. Normal bilateral renal excretion. No hydronephrosis. Urine distended b ladder. Normal sigmoid colon. No evidence of sigmoid diverticulitis. Normal appendix in the right low er quadrant. Fat-containing umbilical hernia. No evidence of small or large bowel obstruction. Partia lly visualized chronic right rib fractures with callus formation. CT/CT abdomen pelvis w con* [id number] IMPRESSION: 1. Prior cholecystectomy and hysterectomy. 2. No hydronephrosis. Normal renal excretion bilaterally. Urine distended blad kourtney. 3. No free fluid in the abdomen or pelvis. 4. Normal sigmoid colon. 5. Partially visualized opacity about the right hilum measuring 2.6 cm. This c an be further evaluated chest CT. 6. Normal caliber abdominal aorta. 7. Normal appendix in the right lower quadrant.
--- NOTE | 2020-05-18 09:29 | CT_ITS ---
WS: [id number] CT HEAD TECHNIQUE: Noncontrast CT of the head obtained from the skullbase to the vertex. CLINICAL INFORMATION: confusion COMPARISON: 3 20,018 DLP: 1212.[address] scans at [facility] use at least one of these dose optimization techniques: automat ed exposure control; mA and/or kV adjustment per patient size (includes targeted exams where dose is matched to clinical indication); or iterative reconstruction. FINDINGS: No evidence of intracranial hemorrhage or mass effect. Ventricular system and basal cisterns are de la garza nt. Mild parenchymal volume loss. No extra-axial fluid collections. No evidence of mass or mass effec t. Normal [place]-white differentiation. Paranasal sinuses and mastoid air cells are well aerated. .Normal visualized soft tissues. CT/CT head wo con* [id number] IMPRESSION: 1. No evidence of intracranial hemorrhage or mass effect. 2. Mild parenchymal volume loss. 3. No acute intracranial findings.
--- NOTE | 2020-05-18 09:29 | XR_ITS ---
WS: [id number] XR chest 1V portable [id number] REASON FOR EXAM: syncope FINDINGS: Compared to the previous examination of 03/31/2020 there are interstitial infiltrative changes in the right lower lung field. There may be similar changes on the left however this is equivocal. Possibly positional, however there is a rather abrupt angulation in the thoracic spine at the level o f the aortic arch compared to the previous upright portable chest. XR/XR chest 1V portable [id number] IMPRESSION: Infiltrative changes in the right lower lung and possibly the left lower lung n ot identifiable on the previous examination. Chronicity is uncertain however th e findings are compatible with acute subacute pneumonitis. The appearance of the thoracic spine curvature on this examination should be co rrelated with trauma and/or back pain.
[2020-05-18] MEDS: haloperidol inj 5 mg/mL INJ 1 mL IM (09:36)
--- NOTE | 2020-05-18 09:37 | W.ED.PSYCH ---
Documented by User: MILTON Allen 05/18/20 15:12 HPI - Psych General: Chief Complaint: Psychiatric Symptoms Stated Complaint: WEAKNESS/ BACK PAIN Time Seen by Provider: 05/18/20 09:20 Source: EMS Mode of arrival: EMS Limitations: altered mental status History of Present Illness: HPI Narrative: Ms. Kelley presents to the emergency department via EMS, she presents with altered mental status. Family and spouse called 911 as patient has not taken her medication in 2 days and is complaining of a metallic taste in her mouth. Family reports she has complained of pain all over, reports she has a nerve disorder. Family is not present at time of exam. History obtained from EMS crew, patient is not able to answer questions secondary to altered mental status. Medical records reviewed, patient does not have history of psychiatric illness, stress test negative, echocardiogram without significant abnormalities, EEG completed at Dr. Vann's office normal. Questionable history of seizure disorder - seizures not noted per family. Glucose 200 during EMS transport. MD complaint: altered mental status Onset (ago): day(s) (2) Duration: constant History of same: No Context: not taking psychiatric medications Associated psychiatric symptoms: none Associated symptoms: Reports no associated symptoms Review of Systems General: Reports: 10 or more systems reviewed and unremarkable except in HPI and below Const: Denies: fever(s), chills or diaphoresis Eyes: Denies: blurry vision or eye redness ENMT: Denies: throat pain, dental pain or disequilibrium Card: Denies: chest pain, palpitations or irregular heart rhythm Resp: Reports: other ( can't breathe ); Denies: dyspnea, productive cough, non-productive cough or wheezing GI: Denies: abdominal pain, nausea or vomiting : Denies: difficulty voiding or dysuria Musc: Reports: neck pain and back pain Skin/Breast: Denies: rash or pruritus Neuro: Reports: headache(s), weakness in extremities, frequent falls, confusion and difficulty communicating thoughts; Denies: behavioral changes Jewel/Lymph: Denies: easy bruising PFSH ED PFSH: Medical History (Updated 05/19/20 @ 05:40 by Davis Calderon DO) Acute kidney injury Avulsion fracture of left ankle Cervical spondylosis Chronic anticoagulation Cigarette smoker motivated to quit Claudication Closed fracture of right distal fibula DDD (degenerative disc disease), cervical Diabetes Dyspnea Emphysema/COPD Encounter for long-term (current) use of NSAIDs Essential hypertension Fibromyalgia Fracture Immunocompromised Intractable nausea and vomiting Long-term current use of opiate analgesic Onychodystrophy Osteoporosis Pain management contract signed Pain, joint, multiple sites Portal vein thrombosis Rheumatoid arthritis Right foot pain Spondylosis of lumbar region without myelopathy or radiculopathy Syncope Tobacco use disorder Surgical History H/O dilation and curettage Hx laparoscopic cholecystectomy Hx of section (~1989) Hx of hysterectomy Family History Mother Stroke Cancer SKIN CANCER Sister Stroke Other Diabetes Myocardial infarct Denies family history of Anesthesia complication Bleeding disorder Social History Smoking and tobacco status: current every day smoker cigarettes Packs smoked per day: 0.5 Years cigarettes smoked: 40 Quit status (tobacco): has tried quititng Second hand smoke exposure: Yes Alcohol intake: former Caregiver/support person: Yes Lives independently: Yes Household members: spouse Marital status: Current occupational status: disabled History of recent travel: No Current gender identity: Female Physical Exam Const: COMMON NORMALS: healthy appearing, alert and well nourished EXAM LIMITATIONS: behavioral limitations and physical limitations GENERAL APPEARANCE: anxious and combative NUTRITIONAL APPEARANCE: obese ORIENTATION/CONSCIOUSNESS: Yes awake and Yes oriented to person HENMT: COMMON NORMALS: normocephalic, atraumatic, Normal external nose present and moist oral mucous membranes HEAD & SCALP: normal to inspection, normocephalic and atraumatic FACE & SINUS: normal facial exam NOSE: Normal external nose present Eye: COMMON NORMALS: Equal, round and reactive pupils present and EOMs intact bilaterally GENERAL EYE: appearance normal, both eyes and all related structures PUPIL: Yes Equal, round and reactive pupils present, Yes pupil size - right Right pupil size (mm): 4 and Yes pupil size - left Left pupil size (mm): 4 Neck/C-Spine: COMMON NORMALS: full ROM and no lymphadenopathy GENERAL: Yes normal visual inspection and Yes trachea midline CERVICAL SPINE: Yes Cervical spine tenderness and Yes Paracervical muscle tenderness Lymph: LYMPHATIC: no lymphadenopathy noted Chest: COMMONS NORMALS: normal inspection of the chest and normal palpation of entire chest wall Resp: COMMON NORMALS: normal respiratory effort AUSCULTATION: diminished lung sounds bilateral in the lower lung rao Cardio: COMMON NORMALS: regular rhythm, S1 normal heart sound present and S2 normal heart sound present RHYTHM: regular rhythm HEART SOUNDS: S1 normal heart sound present and S2 normal heart sound present GI: COMMON NORMALS: Soft to palpation and non-tender PALPATION: Yes Soft to palpation : COMMON NORMALS: Yes no CVA tenderness BLADDER/KIDNEY EXAM: Yes no CVA tenderness Back/Pelvis: COMMON NORMALS: no CVA tenderness and thoracic and lumbar spine normal to inspection Extremity: COMMON NORMALS: normal to inspection and capillary refill normal Neuro: COMMON NORMALS: no focal motor deficits SENSORIUM/ORIENTATION: Yes alert and Yes oriented to person Psych: COMMON NORMALS: speech normal APPEARANCE: Yes disheveled ATTITUDE: Yes bizarre, Yes uncooperative, Yes Belligerent attititude/behavior present, Yes agitated, Yes aggressive and Yes hostile ACTIVITY/MOTOR BEHAVIOR: Yes fidgeting and Yes restless SPEECH: Yes normal speech MOOD & AFFECT: Yes irritable and Yes hostile affect THOUGHT PROCESS: confused ATTENTION/CONCENTRATION: Yes attention grossly impaired and Yes concentration grossly impaired MEMORY/COGNITION: Yes memory grossly impaired and Yes cognition grossly impaired Skin: COMMON NORMALS: no rashes or lesions noted and turgor normal GENERAL SKIN EXAM: no rashes or lesions noted and turgor normal MDM - Psych Lab Data: Labs: Lab Results 05/18/20 05/18/20 05/18/20 Range/Units 00:00 00:00 00:00 WBC (4.0-10.0) 10^3/ uL RBC (4.1-5.3) 10^6/u L Hgb (11.5-15.3) g/dL Hct (37.0-47.0) % MCV (81-99) fL MCH (28.0-34.0) pg MCHC (30.0-36.0) g/dL RDW (12.1-15.1) % Plt Count (130-400) 10^3/c mm MPV (7.4-10.4) fL Neut % (Auto) % Lymph % (Auto) % [place] % (Auto) % Eos % (Auto) % Baso % (Auto) % Neut # (Auto) (1.8-7.7) 10^3/u L Lymph # (Auto) (0.8-4.8) 10^3/u L [place] # (Auto) (0.2-0.9) 10^3/u L Eos # (Auto) (0.0-0.8) 10^3/u L Baso # (Auto) (0.0-0.1) 10^3/u L Nucleated RBC % (a uto) % Nucleated RBCs # /100WBC Specimen Type Sample Site ABG pH (7.35-7.45) ABG pCO2 (35-45) mmHg ABG pO2 (80.0-100.0) mmH g ABG HCO3 (22-26) mmol/L ABG O2 Saturation ABG Base Excess (-2.0-2.0) mmol/ L Vishal Test A-a O2 Gradient Hematocrit (37-47) % Hgb O2 Saturation (95-100) % Carboxyhemoglobin (0.4-20.1) %THgb Methemoglobin (0.4-1.5) % Total Hemoglobin (12-16) g/dL Ionized Calcium (1.1-1.4) mmol/L O2 Delivery Device O2 Liters/Min % Specimen Drawn By Manager [employer] ID Sodium (136-145) mmol/L Potassium (3.5-5.1) mmol/L Chloride (98-107) mmol/L Carbon Dioxide (22-29) mmol/L Anion Gap (5-19) BUN (6-20) mg/dL Creatinine (0.5-0.9) mg/dL GFR Calculation (90-130) mL/min Glucose (65-115) mg/dL Calculated Osmolal ity (285-295) mOsm/k g Lactate (0.5-2.2) mmol/L Calcium (8.5-10.5) mg/dL Iron (37-145) ug/dL TIBC mcg/dl % Saturation (20-50) % Unsat Iron Binding (112-347) ug/dL Total Bilirubin (0.15-1.2) mg/dL AST (0-32) U/L ALT (0-33) U/L Alkaline Phosphata se (35-105) IU/L Ammonia (11-51) umol/L Troponin T Baselin e (0-10) ng/L Troponin T 120 Min [place] (0-10) ng/L Delta Troponin T (0-10) ABS# Troponin T Hi Sens 6Hr 14.48 H (0-10) ng/L Troponin T Hi Sens 6Hr Delta Not Reportable Total Protein (6.6-8.7) g/dL Albumin (3.5-5.2) g/dL Globulin (1.3-4.6) g/dL Lipase (13-60) U/L Procalcitonin (0-0.5) ng/mL TSH (0.27-4.20) uIU/ mL Urine Color (Yellow) Urine Appearance (CLEAR) Urine pH (5-7) Ur Specific Gravit y (1.005-1.030) Urine Protein (Negative) Urine Glucose (UA) (Normal) Urine Ketones (Negative) Urine Blood (Negative) Urine Nitrate (Negative) Urine Bilirubin (Negative) Prot Sulfosalicyli c Acd (Negative) Urine Urobilinogen (Negative) mg/dL Ur Leukocyte Suzie ase (Negative) Urine RBC (0-2) /hpf Urine WBC (0-5) /hpf Ur Squamous Epith Cells (0-5) /hpf Amorphous Sediment Urine Bacteria (NONE) /hpf Salicylates (3-10) mg/dL Urine Opiates Scre en (Negative) ng/mL Acetaminophen (10-30) ug/mL Ur Barbiturates Sc reen (Negative) ng/mL Ur Phencyclidine S crn (Negative) ng/mL Ur Amphetamines Sc reen (Negative) ng/mL U Benzodiazepines Scrn (Negative) ng/mL Urine Cocaine Scre en (Negative) ng/mL U Marijuana (THC) Screen (Negative) ng/mL Ethyl Alcohol (0-10) mg/dL Serum Ketones (Negative) RPR Nonreactive (Nonreactive) Hepatitis A IgM Ab Non-reactive (Nonreactive) Hep Bs Antigen Non-reactive (Nonreactive) Hep Bs Antibody 3.5 (0-8.5) Hep B Core Total A b Non-reactive (Nonreactive) Hepatitis C Antibo dy Non-reactive (Nonreactive) SARS-CoV-2 Ag (Rap id) 05/18/20 05/18/20 05/18/20 Range/Units 09:56 09:56 12:05 WBC 10.1 H (4.0-10.0) 10^3/ uL RBC 4.44 (4.1-5.3) 10^6/u L Hgb 11.5 (11.5-15.3) g/dL Hct 37.3 (37.0-47.0) % MCV 84.0 (81-99) fL MCH 25.9 L (28.0-34.0) pg MCHC 30.8 (30.0-36.0) g/dL RDW 15.8 H (12.1-15.1) % Plt Count 223 (130-400) 10^3/c mm MPV 9.5 (7.4-10.4) fL Neut % (Auto) 66.0 % Lymph % (Auto) 23.8 % [place] % (Auto) 6.7 % Eos % (Auto) 2.3 % Baso % (Auto) 0.9 % Neut # (Auto) 6.69 (1.8-7.7) 10^3/u L Lymph # (Auto) 2.4 (0.8-4.8) 10^3/u L [place] # (Auto) 0.7 (0.2-0.9) 10^3/u L Eos # (Auto) 0.2 (0.0-0.8) 10^3/u L Baso # (Auto) 0.1 (0.0-0.1) 10^3/u L Nucleated RBC % (a uto) 0 % Nucleated RBCs # 0.0 /100WBC Specimen Type Sample Site ABG pH (7.35-7.45) ABG pCO2 (35-45) mmHg ABG pO2 (80.0-100.0) mmH g ABG HCO3 (22-26) mmol/L ABG O2 Saturation ABG Base Excess (-2.0-2.0) mmol/ L Vishal Test A-a O2 Gradient Hematocrit (37-47) % Hgb O2 Saturation (95-100) % Carboxyhemoglobin (0.4-20.1) %THgb Methemoglobin (0.4-1.5) % Total Hemoglobin (12-16) g/dL Ionized Calcium (1.1-1.4) mmol/L O2 Delivery Device O2 Liters/Min % Specimen Drawn By Manager [employer] ID Sodium (136-145) mmol/L Potassium (3.5-5.1) mmol/L Chloride (98-107) mmol/L Carbon Dioxide (22-29) mmol/L Anion Gap (5-19) BUN (6-20) mg/dL Creatinine (0.5-0.9) mg/dL GFR Calculation (90-130) mL/min Glucose (65-115) mg/dL Calculated Osmolal ity (285-295) mOsm/k g Lactate (0.5-2.2) mmol/L Calcium (8.5-10.5) mg/dL Iron (37-145) ug/dL TIBC mcg/dl % Saturation (20-50) % Unsat Iron Binding (112-347) ug/dL Total Bilirubin (0.15-1.2) mg/dL AST (0-32) U/L ALT (0-33) U/L Alkaline Phosphata se (35-105) IU/L Ammonia (11-51) umol/L Troponin T Baselin e (0-10) ng/L Troponin T 120 Min [place] (0-10) ng/L Delta Troponin T (0-10) ABS# Troponin T Hi Sens 6Hr (0-10) ng/L Troponin T Hi Sens 6Hr Delta Total Protein (6.6-8.7) g/dL Albumin (3.5-5.2) g/dL Globulin (1.3-4.6) g/dL Lipase (13-60) U/L Procalcitonin (0-0.5) ng/mL TSH (0.27-4.20) uIU/ mL Urine Color Straw (Yellow) Urine Appearance Clear (CLEAR) Urine pH 8 H (5-7) Ur Specific Gravit y 1.010 (1.005-1.030) Urine Protein Neg (Negative) Urine Glucose (UA) 1+ (Normal) Urine Ketones Negative (Negative) Urine Blood 2+ H (Negative) Urine Nitrate Negative (Negative) Urine Bilirubin Neg (Negative) Prot Sulfosalicyli c Acd Negative (Negative) Urine Urobilinogen Norm (Negative) mg/dL Ur Leukocyte Suzie ase Negative (Negative) Urine RBC 0-4 H (0-2) /hpf Urine WBC None (0-5) /hpf Ur Squamous Epith Cells 5-10 H (0-5) /hpf Amorphous Sediment Not Reportable Urine Bacteria Trace (NONE) /hpf Salicylates (3-10) mg/dL Urine Opiates Scre en Negative (Negative) ng/mL Acetaminophen (10-30) ug/mL Ur Barbiturates Sc reen Negative (Negative) ng/mL Ur Phencyclidine S crn Negative (Negative) ng/mL Ur Amphetamines Sc reen Negative (Negative) ng/mL U Benzodiazepines Scrn Negative (Negative) ng/mL Urine Cocaine Scre en Negative (Negative) ng/mL U Marijuana (THC) Screen Negative (Negative) ng/mL Ethyl Alcohol (0-10) mg/dL Serum Ketones (Negative) RPR (Nonreactive) Hepatitis A IgM Ab (Nonreactive) Hep Bs Antigen (Nonreactive) Hep Bs Antibody (0-8.5) Hep B Core Total A b (Nonreactive) Hepatitis C Antibo dy (Nonreactive) SARS-CoV-2 Ag (Rap id) 05/18/20 05/18/20 05/18/20 Range/Units 12:05 12:05 12:05 WBC (4.0-10.0) 10^3/ uL RBC (4.1-5.3) 10^6/u L Hgb (11.5-15.3) g/dL Hct (37.0-47.0) % MCV (81-99) fL MCH (28.0-34.0) pg MCHC (30.0-36.0) g/dL RDW (12.1-15.1) % Plt Count (130-400) 10^3/c mm MPV (7.4-10.4) fL Neut % (Auto) % Lymph % (Auto) % [place] % (Auto) % Eos % (Auto) % Baso % (Auto) % Neut # (Auto) (1.8-7.7) 10^3/u L Lymph # (Auto) (0.8-4.8) 10^3/u L [place] # (Auto) (0.2-0.9) 10^3/u L Eos # (Auto) (0.0-0.8) 10^3/u L Baso # (Auto) (0.0-0.1) 10^3/u L Nucleated RBC % (a uto) % Nucleated RBCs # /100WBC Specimen Type Sample Site ABG pH (7.35-7.45) ABG pCO2 (35-45) mmHg ABG pO2 (80.0-100.0) mmH g ABG HCO3 (22-26) mmol/L ABG O2 Saturation ABG Base Excess (-2.0-2.0) mmol/ L Vishal Test A-a O2 Gradient Hematocrit (37-47) % Hgb O2 Saturation (95-100) % Carboxyhemoglobin (0.4-20.1) %THgb Methemoglobin (0.4-1.5) % Total Hemoglobin (12-16) g/dL Ionized Calcium (1.1-1.4) mmol/L O2 Delivery Device O2 Liters/Min % Specimen Drawn By Manager [employer] ID Sodium 141 (136-145) mmol/L Potassium 4.0 (3.5-5.1) mmol/L Chloride 106 (98-107) mmol/L Carbon Dioxide 23 (22-29) mmol/L Anion Gap 16.0 (5-19) BUN 11 (6-20) mg/dL Creatinine 0.5 (0.5-0.9) mg/dL GFR Calculation 130.1 H (90-130) mL/min Glucose 161 H (65-115) mg/dL Calculated Osmolal ity 295 (285-295) mOsm/k g Lactate 1.3 (0.5-2.2) mmol/L Calcium 9.1 (8.5-10.5) mg/dL Iron (37-145) ug/dL TIBC mcg/dl % Saturation (20-50) % Unsat Iron Binding (112-347) ug/dL Total Bilirubin 0.4 (0.15-1.2) mg/dL AST 23 (0-32) U/L ALT 21 (0-33) U/L Alkaline Phosphata se 210 H (35-105) IU/L Ammonia (11-51) umol/L Troponin T Baselin e 10 (0-10) ng/L Troponin T 120 Min [place] (0-10) ng/L Delta Troponin T (0-10) ABS# Troponin T Hi Sens 6Hr (0-10) ng/L Troponin T Hi Sens 6Hr Delta Total Protein 6.9 (6.6-8.7) g/dL Albumin 3.7 (3.5-5.2) g/dL Globulin 3.2 (1.3-4.6) g/dL Lipase 7 L (13-60) U/L Procalcitonin (0-0.5) ng/mL TSH (0.27-4.20) uIU/ mL Urine Color (Yellow) Urine Appearance (CLEAR) Urine pH (5-7) Ur Specific Gravit y (1.005-1.030) Urine Protein (Negative) Urine Glucose (UA) (Normal) Urine Ketones (Negative) Urine Blood (Negative) Urine Nitrate (Negative) Urine Bilirubin (Negative) Prot Sulfosalicyli c Acd (Negative) Urine Urobilinogen (Negative) mg/dL Ur Leukocyte Suzie ase (Negative) Urine RBC (0-2) /hpf Urine WBC (0-5) /hpf Ur Squamous Epith Cells (0-5) /hpf Amorphous Sediment Urine Bacteria (NONE) /hpf Salicylates < 0.3 L (3-10) mg/dL Urine Opiates Scre en (Negative) ng/mL Acetaminophen < 5.0 L (10-30) ug/mL Ur Barbiturates Sc reen (Negative) ng/mL Ur Phencyclidine S crn (Negative) ng/mL Ur Amphetamines Sc reen (Negative) ng/mL U Benzodiazepines Scrn (Negative) ng/mL Urine Cocaine Scre en (Negative) ng/mL U Marijuana (THC) Screen (Negative) ng/mL Ethyl Alcohol < 10 (0-10) mg/dL Serum Ketones Negative (Negative) RPR (Nonreactive) Hepatitis A IgM Ab (Nonreactive) Hep Bs Antigen (Nonreactive) Hep Bs Antibody (0-8.5) Hep B Core Total A b (Nonreactive) Hepatitis C Antibo dy (Nonreactive) SARS-CoV-2 Ag (Rap id) 05/18/20 05/18/20 05/18/20 Range/Units 12:05 12:05 12:05 WBC (4.0-10.0) 10^3/ uL RBC (4.1-5.3) 10^6/u L Hgb (11.5-15.3) g/dL Hct (37.0-47.0) % MCV (81-99) fL MCH (28.0-34.0) pg MCHC (30.0-36.0) g/dL RDW (12.1-15.1) % Plt Count (130-400) 10^3/c mm MPV (7.4-10.4) fL Neut % (Auto) % Lymph % (Auto) % [place] % (Auto) % Eos % (Auto) % Baso % (Auto) % Neut # (Auto) (1.8-7.7) 10^3/u L Lymph # (Auto) (0.8-4.8) 10^3/u L [place] # (Auto) (0.2-0.9) 10^3/u L Eos # (Auto) (0.0-0.8) 10^3/u L Baso # (Auto) (0.0-0.1) 10^3/u L Nucleated RBC % (a uto) % Nucleated RBCs # /100WBC Specimen Type Sample Site ABG pH (7.35-7.45) ABG pCO2 (35-45) mmHg ABG pO2 (80.0-100.0) mmH g ABG HCO3 (22-26) mmol/L ABG O2 Saturation ABG Base Excess (-2.0-2.0) mmol/ L Vishal Test A-a O2 Gradient Hematocrit (37-47) % Hgb O2 Saturation (95-100) % Carboxyhemoglobin (0.4-20.1) %THgb Methemoglobin (0.4-1.5) % Total Hemoglobin (12-16) g/dL Ionized Calcium (1.1-1.4) mmol/L O2 Delivery Device O2 Liters/Min % Specimen Drawn By Manager [employer] ID Sodium (136-145) mmol/L Potassium (3.5-5.1) mmol/L Chloride (98-107) mmol/L Carbon Dioxide (22-29) mmol/L Anion Gap (5-19) BUN (6-20) mg/dL Creatinine (0.5-0.9) mg/dL GFR Calculation (90-130) mL/min Glucose (65-115) mg/dL Calculated Osmolal ity (285-295) mOsm/k g Lactate (0.5-2.2) mmol/L Calcium (8.5-10.5) mg/dL Iron 26 L (37-145) ug/dL TIBC 402 mcg/dl % Saturation 6.4 L (20-50) % Unsat Iron Binding 376 H (112-347) ug/dL Total Bilirubin (0.15-1.2) mg/dL AST (0-32) U/L ALT (0-33) U/L Alkaline Phosphata se (35-105) IU/L Ammonia (11-51) umol/L Troponin T Baselin e (0-10) ng/L Troponin T 120 Min [place] (0-10) ng/L Delta Troponin T (0-10) ABS# Troponin T Hi Sens 6Hr (0-10) ng/L Troponin T Hi Sens 6Hr Delta Total Protein (6.6-8.7) g/dL Albumin (3.5-5.2) g/dL Globulin (1.3-4.6) g/dL Lipase (13-60) U/L Procalcitonin 0.05 (0-0.5) ng/mL TSH 1.34 (0.27-4.20) uIU/ mL Urine Color (Yellow) Urine Appearance (CLEAR) Urine pH (5-7) Ur Specific Gravit y (1.005-1.030) Urine Protein (Negative) Urine Glucose (UA) (Normal) Urine Ketones (Negative) Urine Blood (Negative) Urine Nitrate (Negative) Urine Bilirubin (Negative) Prot Sulfosalicyli c Acd (Negative) Urine Urobilinogen (Negative) mg/dL Ur Leukocyte Suzie ase (Negative) Urine RBC (0-2) /hpf Urine WBC (0-5) /hpf Ur Squamous Epith Cells (0-5) /hpf Amorphous Sediment Urine Bacteria (NONE) /hpf Salicylates (3-10) mg/dL Urine Opiates Scre en (Negative) ng/mL Acetaminophen (10-30) ug/mL Ur Barbiturates Sc reen (Negative) ng/mL Ur Phencyclidine S crn (Negative) ng/mL Ur Amphetamines Sc reen (Negative) ng/mL U Benzodiazepines Scrn (Negative) ng/mL Urine Cocaine Scre en (Negative) ng/mL U Marijuana (THC) Screen (Negative) ng/mL Ethyl Alcohol (0-10) mg/dL Serum Ketones (Negative) RPR (Nonreactive) Hepatitis A IgM Ab (Nonreactive) Hep Bs Antigen (Nonreactive) Hep Bs Antibody (0-8.5) Hep B Core Total A b (Nonreactive) Hepatitis C Antibo dy (Nonreactive) SARS-CoV-2 Ag (Rap id) Cancelled 05/18/20 05/18/20 05/18/20 Range/Units 13:14 14:23 14:23 WBC (4.0-10.0) 10^3/ uL RBC (4.1-5.3) 10^6/u L Hgb (11.5-15.3) g/dL Hct (37.0-47.0) % MCV (81-99) fL MCH (28.0-34.0) pg MCHC (30.0-36.0) g/dL RDW (12.1-15.1) % Plt Count (130-400) 10^3/c mm MPV (7.4-10.4) fL Neut % (Auto) % Lymph % (Auto) % [place] % (Auto) % Eos % (Auto) % Baso % (Auto) % Neut # (Auto) (1.8-7.7) 10^3/u L Lymph # (Auto) (0.8-4.8) 10^3/u L [place] # (Auto) (0.2-0.9) 10^3/u L Eos # (Auto) (0.0-0.8) 10^3/u L Baso # (Auto) (0.0-0.1) 10^3/u L Nucleated RBC % (a uto) % Nucleated RBCs # /100WBC Specimen Type Arterial Sample Site Radial, right ABG pH 7.45 (7.35-7.45) ABG pCO2 37.4 (35-45) mmHg ABG pO2 125.0 H (80.0-100.0) mmH g ABG HCO3 25.8 (22-26) mmol/L ABG O2 Saturation 99.5 ABG Base Excess 1.8 (-2.0-2.0) mmol/ L Vishal Test Pos A-a O2 Gradient Not Reportable Hematocrit 33.2 L (37-47) % Hgb O2 Saturation 96.5 (95-100) % Carboxyhemoglobin 2.1 (0.4-20.1) %THgb Methemoglobin 0.9 (0.4-1.5) % Total Hemoglobin 10.8 L (12-16) g/dL Ionized Calcium 1.2 (1.1-1.4) mmol/L O2 Delivery Device Nc O2 Liters/Min 6.0 % Specimen Drawn By [place] Manager [employer] ID [id number] Sodium 142.0 (136-145) mmol/L Potassium 3.7 (3.5-5.1) mmol/L Chloride (98-107) mmol/L Carbon Dioxide (22-29) mmol/L Anion Gap (5-19) BUN (6-20) mg/dL Creatinine (0.5-0.9) mg/dL GFR Calculation (90-130) mL/min Glucose 143.0 H (65-115) mg/dL Calculated Osmolal ity (285-295) mOsm/k g Lactate (0.5-2.2) mmol/L Calcium (8.5-10.5) mg/dL Iron (37-145) ug/dL TIBC mcg/dl % Saturation (20-50) % Unsat Iron Binding (112-347) ug/dL Total Bilirubin (0.15-1.2) mg/dL AST (0-32) U/L ALT (0-33) U/L Alkaline Phosphata se (35-105) IU/L Ammonia 45 (11-51) umol/L Troponin T Baselin e (0-10) ng/L Troponin T 120 Min [place] 11.40 H (0-10) ng/L Delta Troponin T 1.40 (0-10) ABS# Troponin T Hi Sens 6Hr (0-10) ng/L Troponin T Hi Sens 6Hr Delta Total Protein (6.6-8.7) g/dL Albumin (3.5-5.2) g/dL Globulin (1.3-4.6) g/dL Lipase (13-60) U/L Procalcitonin (0-0.5) ng/mL TSH (0.27-4.20) uIU/ mL Urine Color (Yellow) Urine Appearance (CLEAR) Urine pH (5-7) Ur Specific Gravit y (1.005-1.030) Urine Protein (Negative) Urine Glucose (UA) (Normal) Urine Ketones (Negative) Urine Blood (Negative) Urine Nitrate (Negative) Urine Bilirubin (Negative) Prot Sulfosalicyli c Acd (Negative) Urine Urobilinogen (Negative) mg/dL Ur Leukocyte Suzie ase (Negative) Urine RBC (0-2) /hpf Urine WBC (0-5) /hpf Ur Squamous Epith Cells (0-5) /hpf Amorphous Sediment Urine Bacteria (NONE) /hpf Salicylates (3-10) mg/dL Urine Opiates Scre en (Negative) ng/mL Acetaminophen (10-30) ug/mL Ur Barbiturates Sc reen (Negative) ng/mL Ur Phencyclidine S crn (Negative) ng/mL Ur Amphetamines Sc reen (Negative) ng/mL U Benzodiazepines Scrn (Negative) ng/mL Urine Cocaine Scre en (Negative) ng/mL U Marijuana (THC) Screen (Negative) ng/mL Ethyl Alcohol (0-10) mg/dL Serum Ketones (Negative) RPR (Nonreactive) Hepatitis A IgM Ab (Nonreactive) Hep Bs Antigen (Nonreactive) Hep Bs Antibody (0-8.5) Hep B Core Total A b (Nonreactive) Hepatitis C Antibo dy (Nonreactive) SARS-CoV-2 Ag (Rap id) 05/18/20 Range/Units 15:05 WBC (4.0-10.0) 10^3/ uL RBC (4.1-5.3) 10^6/u L Hgb (11.5-15.3) g/dL Hct (37.0-47.0) % MCV (81-99) fL MCH (28.0-34.0) pg MCHC (30.0-36.0) g/dL RDW (12.1-15.1) % Plt Count (130-400) 10^3/c mm MPV (7.4-10.4) fL Neut % (Auto) % Lymph % (Auto) % [place] % (Auto) % Eos % (Auto) % Baso % (Auto) % Neut # (Auto) (1.8-7.7) 10^3/u L Lymph # (Auto) (0.8-4.8) 10^3/u L [place] # (Auto) (0.2-0.9) 10^3/u L Eos # (Auto) (0.0-0.8) 10^3/u L Baso # (Auto) (0.0-0.1) 10^3/u L Nucleated RBC % (a uto) % Nucleated RBCs # /100WBC Specimen Type Sample Site ABG pH (7.35-7.45) ABG pCO2 (35-45) mmHg ABG pO2 (80.0-100.0) mmH g ABG HCO3 (22-26) mmol/L ABG O2 Saturation ABG Base Excess (-2.0-2.0) mmol/ L Vishal Test A-a O2 Gradient Hematocrit (37-47) % Hgb O2 Saturation (95-100) % Carboxyhemoglobin (0.4-20.1) %THgb Methemoglobin (0.4-1.5) % Total Hemoglobin (12-16) g/dL Ionized Calcium (1.1-1.4) mmol/L O2 Delivery Device O2 Liters/Min % Specimen Drawn By [employer] ID Sodium (136-145) mmol/L Potassium (3.5-5.1) mmol/L Chloride (98-107) mmol/L Carbon Dioxide (22-29) mmol/L Anion Gap (5-19) BUN (6-20) mg/dL Creatinine (0.5-0.9) mg/dL GFR Calculation (90-130) mL/min Glucose (65-115) mg/dL Calculated Osmolal ity (285-295) mOsm/k g Lactate (0.5-2.2) mmol/L Calcium (8.5-10.5) mg/dL Iron (37-145) ug/dL TIBC mcg/dl % Saturation (20-50) % Unsat Iron Binding (112-347) ug/dL Total Bilirubin (0.15-1.2) mg/dL AST (0-32) U/L ALT (0-33) U/L Alkaline Phosphata se (35-105) IU/L Ammonia (11-51) umol/L Troponin T Baselin e (0-10) ng/L Troponin T 120 Min [place] (0-10) ng/L Delta Troponin T (0-10) ABS# Troponin T Hi Sens 6Hr (0-10) ng/L Troponin T Hi Sens 6Hr Delta Total Protein (6.6-8.7) g/dL Albumin (3.5-5.2) g/dL Globulin (1.3-4.6) g/dL Lipase (13-60) U/L Procalcitonin (0-0.5) ng/mL TSH (0.27-4.20) uIU/ mL Urine Color (Yellow) Urine Appearance (CLEAR) Urine pH (5-7) Ur Specific Gravit y (1.005-1.030) Urine Protein (Negative) Urine Glucose (UA) (Normal) Urine Ketones (Negative) Urine Blood (Negative) Urine Nitrate (Negative) Urine Bilirubin (Negative) Prot Sulfosalicyli c Acd (Negative) Urine Urobilinogen (Negative) mg/dL Ur Leukocyte Suzie ase (Negative) Urine RBC (0-2) /hpf Urine WBC (0-5) /hpf Ur Squamous Epith Cells (0-5) /hpf Amorphous Sediment Urine Bacteria (NONE) /hpf Salicylates (3-10) mg/dL Urine Opiates Scre en (Negative) ng/mL Acetaminophen (10-30) ug/mL Ur Barbiturates Sc reen (Negative) ng/mL Ur Phencyclidine S crn (Negative) ng/mL Ur Amphetamines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 Benzodiazepines Scrn (Negative) ng/mL Urine Cocaine Scre en (Negative) ng/mL U Marijuana (THC) Screen (Negative) ng/mL Ethyl Alcohol (0-10) mg/dL Serum Ketones (Negative) RPR (Nonreactive) Hepatitis A IgM Ab (Nonreactive) Hep Bs Antigen (Nonreactive) Hep Bs Antibody (0-8.5) Hep B Core Total A b (Nonreactive) Hepatitis C Antibo dy (Nonreactive) SARS-CoV-2 Ag (Rap id) Positive H Critical Care Time Critical Care Time: Critical Care Time: Yes Total Critical Care Time: 60 Attestation: This case had a high probability of a clinically significant, sudden, or life threatening deterioration of this patient's condition which required my full and direct attention, intervention and personal management. Discharge Plan Discharge Patient Disposition: Admitted As Inpatient Admit Provider: Irving Alva Clinical Impression: Encephalopathy acute, Diabetes, Essential hypertension, Seizures, COVID-19, Chronic anticoagulation Condition: Stable Coding Level of Care Code ED Hot Stick Worker for Ayshag Fwd Exam Comprehensive
[2020-05-18] MEDS: ziprasidone 20 mg/mL SDV 10 MG IM ×2 (09:50→11:10)
[2020-05-18 10:30] LABS: Urine Appearance Clear (CLEAR); Urine Color Straw (Yellow)
[2020-05-18 10:31] LABS: Add Urine Culture? No; Add Urine Microscopic? YES; Bacteria Urine TRACE /hpf; Bilirubin Urine Neg (Negative); Blood Urine 2+ (Negative); Glucose Urine UA 1+ (Normal); Ketones Urine Negative (Negative); Leukocyte Esterase Urine Negative (Negative); Nitrate Urine Negative (Negative); Protein Urine Neg (Negative); RBC Urine 0-4 /hpf (0-2); Sulfosalicylic Acid Urine Negative (Negative); Urobilinogen Urine Norm (Negative); pH Urine 8 (5-7)
--- NOTE | 2020-05-18 10:35 | PC.NURSE ---
Update Patients states patient has been complaining of pain, punching self, and restless since 1700 last night which progressed through the night. Also reports patient has not had a good nights sleep in approximately 1 week. Denies recent illness, fever, and other symptoms
[2020-05-18 10:44] LABS: Amphetamines Screen Urine Negative (Negative); Barbiturates Screen Urine Negative (Negative); Benzodiazepines Screen Urine Negative (Negative); Cocaine Screen Urine Negative (Negative); Opiate Screen Urine Negative (Negative); PCP Screen Urine Negative (Negative); THC Screen Urine Negative (Negative)
--- NOTE | 2020-05-18 11:02 | PC.NURSE ---
IV attempts Attempted 3x to obtain an IV which blew 3x, patient completely restless and unable to sit still.
--- NOTE | 2020-05-18 11:30 | ECG_ITS ---
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 Measurements Intervals [place] Rate: 100 P: 75 CO: 167 QRS: 85 QRSD: 81 T: 69 QT: 356 QTc: 460 Interpretive Statements SINUS TACHYCARDIA WITH OCCASIONAL SUPRAVENTRICULAR PREMATURE COMPLEXES MODERATE ST DEPRESSION [0.05+ mV ST DEPRESSION] Compared to ECG 04/01/2020 03:23:51 Sinus rhythm no longer present ST (T wave) deviation still present Electronically Signed On 05-18-2020 18:53:45 CLINICAL INFORMATICS STRATEGIST by Galina Bradshaw M.D. [id number] f
[2020-05-18] MEDS: LORazepam 2 mg/mL INJ 1 mL IVP ×2 (12:12→14:05)
[2020-05-18 12:18] LABS: Basophils # 0.1 10^3/uL (0.0-0.1); Basophils % 0.9 %; Eosinophils # 0.2 10^3/uL (0.0-0.8); Eosinophils % 2.3 %; Hematocrit 37.3 % (37.0-47.0); Hemoglobin 11.5 g/dL (11.5-15.3); Lymphocytes # 2.4 10^3/uL (0.8-4.8); Lymphocytes % 23.8 %; Mean Corpuscular HGB Conc 30.8 g/dL (30.0-36.0); Mean Corpuscular Hemoglobin 25.9 pg (28.0-34.0); Mean Platelet Volume 9.5 fL (7.4-10.4); Monocytes # 0.7 10^3/uL (0.2-0.9); Monocytes % 6.7 %; Neutrophils # 6.69 10^3/uL (1.8-7.7); Nucleated Red Blood Cells % 0 %; Platelet Count 223 10^3/cmm (130-400); Red Blood Count 4.44 10^6/uL (4.1-5.3); Red Cell Distribution Width 15.8 % (12.1-15.1); White Blood Count 10.1 10^3/uL (4.0-10.0)
[2020-05-18 12:33] LABS: Ketone (Acetest) Serum Negative (Negative)
[2020-05-18 12:42] LABS: Lactate (Lactic Acid level) 1.3 mmol/L (0.5-2.2)
[2020-05-18 12:44] LABS: Alanine Aminotransferase 21 U/L (0-33); Albumin Level 3.7 g/dL (3.5-5.2); Alkaline Phosphatase 210 IU/L (35-105); Aspartate Amino Transferase 23 U/L (0-32); Blood Urea Nitrogen 11 mg/dL (6-20); Calcium 9.1 mg/dL (8.5-10.5); Carbon Dioxide 23 mmol/L (22-29); Chloride 106 mmol/L (98-107); Globulin 3.2 g/dL (1.3-4.6); Glomerular Filtration Rate 130.1 mL/min (90-130); Glucose 161 mg/dL (65-115); Lipase 7 U/L (13-60); Osmolality Calculated 295 mOsm/kg (285-295); Sodium 141 mmol/L (136-145); Total Bilirubin 0.4 mg/dL (0.15-1.2); Total Protein 6.9 g/dL (6.6-8.7)
[2020-05-18 12:45] LABS: Acetaminophen < 5.0 ug/mL (10-30); Alcohol Level < 10 mg/dL (0-10); Salicylate < 0.3 mg/dL (3-10)
[2020-05-18] MEDS: iohexol 300 mg/mL 100 mL Btl IV (13:19)
[2020-05-18 13:23] LABS: Troponin(5th) Baseline 10 ng/L (0-10)
[2020-05-18 13:29] LABS: ABG PCO2 37.4 mmHg (35-45); ABG PH Result 7.45 (7.35-7.45); Base Excess ABG 1.8 mmol/L (-2.0-2.0); HCO3 ABG 25.8 mmol/L (22-26); Oxygen Device NC; Oxygen Saturation ABG 99.5; Potassium Level - ABG 3.7 mmol/L (3.5-5.0)
--- NOTE | 2020-05-18 13:59 | PC.NURSE ---
Patient originally in room 9. Patient was sedated for CT. Patient place in room 11 when returned from ED. I briefly assumed care of patient. Patient will continued to be cared by original nurse. Report given to primary nurse. Patient attempting to pull out IV and thrashing around the bed. Patient restrained per EMD order after medication failed to control patient.
[2020-05-18] MEDS: levofloxacin-dextrose 5 % 750 MG/150 ML PREMIX 100 MG IV (14:05)
[2020-05-18 14:56] LABS: Arterial Blood Gas Hematocrit 33.2 % (37-47); Blood Gas Allen Test Pos; Blood Gas Sample Site Radial, right; Blood Gas Sample Type Arterial; Carboxyhemoglobin 2.1 %THgb (0.4-20.1); HGB O2 Sat 96.5 % (95-100); Ionized Calcium Level - ABG 1.2 mmol/L (1.1-1.4); Methemoglobin 0.9 % (0.4-1.5); Total Hemoglobin 10.8 g/dL (12-16)
[2020-05-18 14:58] LABS: Ammonia 45 umol/L (11-51)
--- NOTE | 2020-05-18 15:30 | ECG_ITS ---
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 Measurements Intervals [place] Rate: 92 P: 65 W[place]: 148 QRS: 67 QRSD: 77 T: 78 QT: 373 QTc: 461 Interpretive Statements SINUS RHYTHM POSSIBLE LEFT ATRIAL ENLARGEMENT [-0.1mV P WAVE IN V1/V2] MODERATE ST DEPRESSION [0.05+ mV ST DEPRESSION] Compared to ECG 05/18/2020 12:00:11 Sinus tachycardia no longer present ST (T wave) deviation still present Electronically Signed On 05-18-2020 18:52:09 PIN OR CLIP FASTENER by Galina Bradshaw M.D. [id number] f
[2020-05-18 15:58] LABS: SARS Covid-2 Antigen Positive (Negative)
--- NOTE | 2020-05-18 16:07 | P.CONIM_ITS ---
Providers/Reason For Consult Primary Care Provider: Nel Peacock MD History of Present Illness History of Present Illness Erin Kelley is a 49 year old female Meds/Allergies Home Medications and Allergies Home Medications Medication Instructions Recorded Confirmed Last Taken Type apixaban 5 mg tablet 5 mg PO BID 09/04/19 05/18/20 05/18/20 History insulin glargine 100 unit/mL 50 unit SUBCUT BEDTIME 09/04/19 05/18/20 05/17/20 History subcutaneous solution prednisone 5 mg tablet 7.5 mg PO DAILY 09/04/19 05/18/20 05/18/20 History ropinirole 2 mg tablet 2 mg PO BEDTIME 09/04/19 05/18/20 05/17/20 History rosuvastatin 20 mg tablet 20 mg PO DAILY 09/04/19 05/18/20 05/17/20 History clobetasol 0.05 % topical cream 1 applic TOPICAL BID PRN 09/05/19 05/18/20 Unknown History escitalopram oxalate 20 mg tablet 20 mg PO DAILY 09/05/19 05/18/20 05/18/20 History gabapentin 300 mg capsule See Rx Instructions .ROUTE 09/05/19 05/18/20 05/18/20 History .COMPLEX cap omeprazole 40 mg capsule,delayed 40 mg PO DAILY cap 09/05/19 05/18/20 05/18/20 History release ondansetron HCl 4 mg tablet 4 mg PO Q8H PRN 09/05/19 05/18/20 10/30/19 History nitroglycerin 0.4 mg sublingual 0.4 mg SUBLINGUAL Q5M PRN 30 Days 09/09/19 05/18/20 Unknown Rx tablet #25 tab isosorbide dinitrate 30 mg tablet 15 mg PO BID 90 Days #90 tab 10/03/19 05/18/20 05/18/20 Rx Glucagon (HCl) Emergency Kit 1 mg SUBCUT Q20M PRN #0 11/01/19 05/18/20 Unknown History aspirin [Aspir-81] 81 mg PO DAILY 11/01/19 05/18/20 05/18/20 History epinephrine [EpiPen 2-Carrington] See Rx Instructions .ROUTE 11/01/19 05/18/20 Unknown History .COMPLEX PRN insulin aspart U-100 [Novolog See Rx Instructions .ROUTE .COMPLEX 11/01/19 05/18/20 12/12/19 History Flexpen U-100 Insulin] tramadol 50 mg tablet 50 mg PO TID PRN #90 tab 11/01/19 05/18/20 12/12/19 Rx trazodone 50 mg tablet 50 mg PO BEDTIME tab 01/09/20 05/18/20 05/17/20 History ibuprofen 800 mg tablet 800 mg PO BID PRN tab 01/29/20 05/18/20 Unknown History cilostazol 50 mg tablet 50 mg PO BID #60 tab 02/25/20 05/18/20 05/18/20 Rx duloxetine 30 mg capsule,delayed 30 mg PO DAILY 30 Days #30 cap 03/18/20 05/18/20 05/18/20 Rx release oxycodone 15 mg tablet 15 mg PO BID PRN 30 Days #60 tab 03/18/20 05/18/20 05/18/20 Rx glycopyrrolate 9 mcg-formoterol 2 puff INHALATION BID #10.7 gm 03/24/20 05/18/20 05/18/20 Rx 4.8 mcg HFA aerosol inhaler nicotine 21 mg/24 hr daily 1 patch TRANSDERMA DAILY #14 each 03/24/20 05/18/20 Unknown Rx transdermal patch Chantix 1 mg PO . DIRECTED 04/01/20 05/18/20 Unknown History albuterol sulfate 2.5 mg INHALATION Q6H PRN 04/01/20 05/18/20 Unknown History baclofen 20 mg PO QID PRN 04/01/20 05/18/20 05/18/20 History docusate sodium [DOK] 200 mg PO DAILY PRN 04/01/20 05/18/20 Unknown History enalapril maleate 20 mg tablet 20 mg PO DAILY 04/08/20 05/18/20 05/18/20 History metoprolol succinate 25 mg 12.5 mg PO DAILY each 04/08/20 05/18/20 05/18/20 History tablet,extended release 24 hr silver sulfadiazine 1 % topical 1 applic TOPICAL BID #50 gm 04/22/20 05/18/20 Unknown Rx cream hydroxychloroquine 200 mg tablet 200 mg PO BID #60 tab 11/03/20 11/09/20 11/09/20 Rx cefadroxil 1 gram tablet 1,000 mg PO DAILY 10 Days #10 tab 05/14/20 05/18/20 05/18/20 Rx Combivent Respimat 1 puff INHALATION Q6H PRN 05/18/20 05/18/20 Unknown History Cosentyx Pen 150 mg SUBCUT Q30D 05/18/20 05/18/20 Unknown History Allergies Allergy/AdvReac Type Severity Reaction Status Date / Time bee venom protein (honey bee) Allergy ALGY-Anaphy Verified 05/14/20 15:41 laxis PFSH Acute PFSH: Medical History Atypical chest pain Cervical spondylosis Chest pain Cigarette smoker motivated to quit Claudication DDD (degenerative disc disease), cervical Diabetes Emphysema/COPD Encounter for long-term (current) use of NSAIDs Essential hypertension Fibromyalgia Fracture Long-term current use of opiate analgesic Osteoporosis Pain management contract signed Pain, joint, multiple sites Rheumatoid arthritis Tobacco use disorder Surgical History H/O dilation and curettage Hx laparoscopic cholecystectomy Hx of section (~1989) Hx of hysterectomy Family History Mother Stroke Cancer SKIN CANCER Sister Stroke Other Diabetes Myocardial infarct Denies family history of Anesthesia complication Bleeding disorder Social History Smoking and tobacco status: current every day smoker cigarettes Packs smoked per day: 0.5 Years cigarettes smoked: 40 Quit status (tobacco): has tried quititng Second hand smoke exposure: Yes Alcohol intake: former Caregiver/support person: Yes Lives independently: Yes Household members: spouse Marital status: Current occupational status: disabled History of recent travel: No Current gender identity: Female Vitals/I&O/Wt Last Vital Signs Pulse 91 05/18/20 14:11 Resp 20 H 05/18/20 14:11 BP 191/95 05/18/20 14:11 Pulse Ox 100 05/18/20 14:11 05/18/20 05/18/20 05/18/20 06:59 14:59 22:59 Intake Total 150 / 150 Output Total 1800 / 1800 Balance -1650 / -1650 Weight last 48 hrs Weight 113.398 kg Data Micro: Micro: Microbiology 05/18/20 14:17 Blood Culture - Pr eliminary Blood SPECIMEN COLLEC CATALINA 05/18/20 12:05 Blood Culture - Pr eliminary Blood SPECIMEN COLLE CATALINA Coding Level of Care Code Acute Keeler Polygraph Operator for Chikis Toro
[2020-05-18 16:39] LABS: Procalcitonin 0.05 ng/mL (0-0.5); Thyroid Stimulating Hormone 1.34 uIU/mL (0.27-4.20)
[2020-05-18] MEDS: dexmedetomidine 400 MCG in sodium chloride 0.9% (100 ml) 100 ML IV (16:49)
[2020-05-18 16:50] LABS: Iron 26 ug/dL (37-145); Percent Saturation 6.4 % (20-50); Total Iron Binding Capacity 402 mcg/dl; Unsaturated Iron Binding 376 ug/dL (112-347)
--- NOTE | 2020-05-18 17:48 | PC.NURSE ---
Updated Updated patients that patient would be admitted to the VICU here, then informed staff that his father had 1 month ago from COVID 19
--- NOTE | 2020-05-18 17:58 | PM.HP ---
Providers/Chief Complaint Admitting Physician: Irving Alva MD Primary Care Provider: Nel Peacock MD Chief Complaint: WEAKNESS/ BACK PAIN History of Present Illness Erin Kelley is a 49 year old female who carries history of seropositive rheumatoid arthritis, on steroids, hydroxychloroquine and Actemra, dyslipidemia, type 2 diabetes, portal vein thrombosis, chronic anticoagulation with Eliquis was brought into the ER today via EMS by her because of increasing confusion. Most of the history taken to the ER physician and via phone by the . As per the patient has been at her baseline around a week ago when she had 3 of 4 toenails pulled out by Dr. Sales after which she was started on IV cefadroxil. She has been complaining of having nausea, vomiting, diarrhea for last 4 days along with back pain and neck pain. As per the patient started complaining of excessive generalized body pain more so in the neck and the back yesterday evening around 5 PM with some hallucinations and continued to worsen till today morning. As per the patient has not been having any difficulty in breathing, any sick contacts, and no exposure to COVID-19, any animal bites, recent travels. As per they have 1 pet(pitbull/dog) who has been healthy as well. Denies of any exposure to mold or any changes in medications other than cefadroxil which was recently started. As per the patient is compliant with her medications and she took most of them yesterday evening. When she presented to the ER patient was completely confused, abusive, thrashing, having jerky lower limb movements and was given dose of Haldol, Geodon, etomidate to calm down. Since presentation to the ER patient's blood pressure has remained normal going as high as 180 systolic as per the chart. Patient has remained afebrile saturating more than 92% on room air. Blood work in the ER showed a white count of 10.1, hemoglobin of 11.5, ABG showing pH of 7.45, PCO2 37, PO2 125, sodium of 141, creatinine of 0.5, chloride of 106, calcium of 9.1, AST/ALT of 23/21,-phosphatase of 210, baseline troponin of 10 with a delta of 1.4 in 2 hours, urinalysis negative for nitrite or leukoesterase, drug screen negative, negative salicylate, acetaminophen and alcohol level with rapid COVID-[address] head done shows no acute abnormality, chest x-ray possibility of acute to subacute pneumonitis with abdominal CT scan with contrast showing no active signs of infection. Review of Systems General: Reports: ROS unobtainable due to mental status Medications/Allergies Home Medications Medication Instructions Recorded Confirmed Last Taken Type apixaban 5 mg tablet 5 mg PO BID 09/04/19 05/18/20 05/18/20 History insulin glargine 100 unit/mL 50 unit SUBCUT BEDTIME 09/04/19 05/18/20 05/17/20 History subcutaneous solution prednisone 5 mg tablet 7.5 mg PO DAILY 09/04/19 05/18/20 05/18/20 History ropinirole 2 mg tablet 2 mg PO BEDTIME 09/04/19 05/18/20 05/17/20 History rosuvastatin 20 mg tablet 20 mg PO DAILY 09/04/19 05/18/20 05/17/20 History clobetasol 0.05 % topical cream 1 applic TOPICAL BID PRN 09/05/19 05/18/20 Unknown History escitalopram oxalate 20 mg tablet 20 mg PO DAILY 09/05/19 05/18/20 05/18/20 History gabapentin 300 mg capsule See Rx Instructions .ROUTE 09/05/19 05/18/20 05/18/20 History .COMPLEX cap omeprazole 40 mg capsule,delayed 40 mg PO DAILY cap 09/05/19 05/18/20 05/18/20 History release ondansetron HCl 4 mg tablet 4 mg PO Q8H PRN 09/05/19 05/18/20 10/30/19 History nitroglycerin 0.4 mg sublingual 0.4 mg SUBLINGUAL Q5M PRN 30 Days 09/09/19 05/18/20 Unknown Rx tablet #25 tab isosorbide dinitrate 30 mg tablet 15 mg PO BID 90 Days #90 tab 10/03/19 05/18/20 05/18/20 Rx Glucagon (HCl) Emergency Kit 1 mg SUBCUT Q20M PRN #0 11/01/19 05/18/20 Unknown History aspirin [Aspir-81] 81 mg PO DAILY 11/01/19 05/18/20 05/18/20 History epinephrine [EpiPen 2-Carrington] See Rx Instructions .ROUTE 11/01/19 05/18/20 Unknown History .COMPLEX PRN insulin aspart U-100 [Novolog See Rx Instructions .ROUTE .COMPLEX 11/01/19 05/18/20 12/12/19 History Flexpen U-100 Insulin] tramadol 50 mg tablet 50 mg PO TID PRN #90 tab 11/01/19 05/18/20 12/12/19 Rx trazodone 50 mg tablet 50 mg PO BEDTIME tab 01/09/20 05/18/20 05/17/20 History ibuprofen 800 mg tablet 800 mg PO BID PRN tab 01/29/20 05/18/20 Unknown History cilostazol 50 mg tablet 50 mg PO BID #60 tab 02/25/20 05/18/20 05/18/20 Rx duloxetine 30 mg capsule,delayed 30 mg PO DAILY 30 Days #30 cap 03/18/20 05/18/20 05/18/20 Rx release oxycodone 15 mg tablet 15 mg PO BID PRN 30 Days #60 tab 03/18/20 05/18/20 05/18/20 Rx glycopyrrolate 9 mcg-formoterol 2 puff INHALATION BID #10.7 gm 03/24/20 05/18/20 05/18/20 Rx 4.8 mcg HFA aerosol inhaler nicotine 21 mg/24 hr daily 1 patch TRANSDERMA DAILY #14 each 03/24/20 05/18/20 Unknown Rx transdermal patch Chantix 1 mg PO . DIRECTED 04/01/20 05/18/20 Unknown History albuterol sulfate 2.5 mg INHALATION Q6H PRN 04/01/20 05/18/20 Unknown History baclofen 20 mg PO QID PRN 04/01/20 05/18/20 05/18/20 History docusate sodium [DOK] 200 mg PO DAILY PRN 04/01/20 05/18/20 Unknown History enalapril maleate 20 mg tablet 20 mg PO DAILY 04/08/20 05/18/20 05/18/20 History metoprolol succinate 25 mg 12.5 mg PO DAILY each 04/08/20 05/18/20 05/18/20 History tablet,extended release 24 hr silver sulfadiazine 1 % topical 1 applic TOPICAL BID #50 gm 04/22/20 05/18/20 Unknown Rx cream hydroxychloroquine 200 mg tablet 200 mg PO BID #60 tab 05/12/20 05/18/20 05/18/20 Rx cefadroxil 1 gram tablet 1,000 mg PO DAILY 10 Days #10 tab 05/14/20 05/18/20 05/18/20 Rx Combivent Respimat 1 puff INHALATION Q6H PRN 05/18/20 05/18/20 Unknown History Cosentyx Pen 150 mg SUBCUT Q30D 05/18/20 05/18/20 Unknown History Allergies Allergy/AdvReac Type Severity Reaction Status Date / Time bee venom protein (honey bee) Allergy ALGY-Anaphy Verified 05/14/20 15:41 laxis PFSH Acute PFSH: Medical History (Updated 05/18/20 @ 18:16 by Irving Alva MD) Acute kidney injury Avulsion fracture of left ankle Cervical spondylosis Chronic anticoagulation Cigarette smoker motivated to quit Claudication Closed fracture of right distal fibula DDD (degenerative disc disease), cervical Diabetes Dyspnea Emphysema/COPD Encounter for long-term (current) use of NSAIDs Essential hypertension Fibromyalgia Fracture Immunocompromised Intractable nausea and vomiting Long-term current use of opiate analgesic Onychodystrophy Osteoporosis Pain management contract signed Pain, joint, multiple sites Portal vein thrombosis Rheumatoid arthritis Right foot pain Spondylosis of lumbar region without myelopathy or radiculopathy Syncope Tobacco use disorder Surgical History H/O dilation and curettage Hx laparoscopic cholecystectomy Hx of section (~1989) Hx of hysterectomy Family History Mother Stroke Cancer SKIN CANCER Sister Stroke Other Diabetes Myocardial infarct Denies family history of Anesthesia complication Bleeding disorder Social History Smoking and tobacco status: current every day smoker cigarettes Packs smoked per day: 0.5 Years cigarettes smoked: 40 Quit status (tobacco): has tried quititng Second hand smoke exposure: Yes Alcohol intake: former Caregiver/support person: Yes Lives independently: Yes Household members: spouse Marital status: Current occupational status: disabled History of recent travel: No Current gender identity: Female Vitals/I&O/Wt Last Vital Signs Pulse 81 05/18/20 17:01 Resp 18 05/18/20 17:01 BP 143/89 05/18/20 17:01 Pulse Ox 97 05/18/20 17:01 05/18/20 05/18/20 05/18/20 06:59 14:59 22:59 Intake Total 150.048 / 150.048 Output Total 1800 / 1800 Balance -1649.952 / -1649.952 Weight last 48 hrs Weight 113.398 kg Physical Exam Narrative: EXAM NARRATIVE: General: Incoherent, maintaining airway HEENT: PERRLA, pupils bilaterally equal and reactive Chest: Normal vesicular breath sounds, no added sounds, equal good air entry bilaterally CVS: S1-S2 regular, no murmurs, no tachycardia, no gallops, no rubs Abdomen: Soft, nontender, no organomegaly, bowel sounds present Neuro: GCS: E1 M 5 V1, maintaining airway, not following commands Data : 05/18/20 12:05 05/18/20 12:05 Micro: Microbiology 05/18/20 12:05 Legionella Urinary Antigen - Final Urethra 05/18/20 14:17 Blood Culture - Preliminary Blood SPECIMEN COLLECTED 05/18/20 12:05 Blood Culture - Preliminary Blood SPECIMEN COLLECTED A&P Assessment and plan (1) Altered mental status: Status: Acute (2) Meningoencephalitis: Status: Acute (3) COVID-19: Status: Acute (4) Seizures: Status: Acute (5) Low back pain with sciatica: Status: Acute (6) PVD (peripheral vascular disease): Status: Acute (7) Essential hypertension: Status: Acute (8) Long-term current use of opiate analgesic: Status: Chronic (9) Diabetes: Status: Acute (10) Emphysema/COPD: Status: Inactive Qualifiers: Emphysema type: centrilobular Qualified Code(s): J43.2 - Centrilobular emphysema (11) Portal vein thrombosis: Status: Acute (12) Chronic anticoagulation: Status: Acute (13) Immunocompromised: Status: Acute Additional A&P Information Altered mental status: 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 Patient does not have any signs of sepsis. No leukocytosis no fever hemodynamically stable, lactate normal. Patient is immunocompromised because of chronic steroids, Actemra. Given the symptoms and history really concerning for meningoencephalitis but unfortunately cannot do the LP because patient is extremely incoherent and is on Eliquis with last dose taken on 05/17. Patient would need to be at least off Eliquis for next 72 hours for lumbar puncture. COVID-19: No signs of pneumonia as patient is maintaining saturation on room air. High concerns for COVID-19 meningoencephalitis though cannot rule out other etiologies of meningoencephalitis. Check flu swab, respiratory viral panel, MRSA swab, blood culture, urine culture, bacterial antigen, urine Legionella, HSV IgG/IgM RPR, hepatitis panel, HIV, QuantiFERON, cryptococcal antigen. Start patient on antibiotic treatment with remdesivir. Will require 5-day course. Start on dexamethasone 6 mg IV daily. Start patient on cefepime, vancomycin, acyclovir. Will de-escalate antibiotics as per the course. If MRSA comes back negative can de-escalate vancomycin. Normal saline at 75 cc/h. Vitamin C, zinc once patient is able to take orally. Pulmonary toilet once able to. Continue to monitor oxygen supplementation keeping saturation over 92%. One-to-one sitter. Start patient on Precedex drip. If required can give Haldol 5 mg IM every 4 hours as needed. Zofran as needed, Protonix for PUD prophylaxis. Possible seizures: As per chart review patient did follow-up with Dr. Vann on April 14 and did an EEG though no results present in the system. As per the study was unifocal. Start patient on Keppra with loading dose of 1500 mg followed by 1 g twice daily. Once patient is a lot more stable can plan for lumbar puncture and MRI brain. Seizure precautions, fall precautions, neurochecks every 1 hour. For now hold off on all other oral medications. Chronic immunosuppression: Patient is chronically on steroids, Actemra. Continue with dexamethasone as above. Hypertension: Goal blood pressure less than 140/90 mmHg. Continue to monitor. We will switch Lopressor to IV 2.5 every 6 hours. Last echocardiogram from February 2020 shows an EF of 55% grade 1 diastolic dysfunction, moderate TR, mild MR with RVSP of 41 mmHg. Normal Lexisc and March 2020. Type 2 diabetes mellitus: Start patient on moderate insulin sliding scale every 4 hours as patient is n.p.o. We will decrease the dose of Lantus to 25 units from 50 units at home dose. Portal vein thrombosis: Patient is on chronic anticoagulation with Eliquis: Stop Eliquis for now for possible lumbar puncture. Start patient on full dose Lovenox 1 mg/kg body weight every 12 hourly. Patient's care discussed in detail with patient's . All the questions were answered. We will change medication as per the clinical picture. Full code. NPO. Full dose Lovenox. Protonix IV. Admit to viral ICU. Attestations Medical Necessity Statement*: Patient requires admission for evaluation and management of altered mental status most likely secondary to meningoencephalitis, possibly COVID-19 related. Admission for more than 2 midnights Time Spent in Patient Care: Greater than 35 minutes (>than 50% of time spent in counselling and/or direct pt care on unit). 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
[2020-05-18] MEDS: sodium chloride 0.9% 1,000 ML 75 ML IV (21:16)
[2020-05-18] MEDS: dexamethasone 4 mg/mL INJ 6 MG IVP (21:17)
[2020-05-18] MEDS: pantoprazole 40 mg SDV IVP (21:17)
[2020-05-18] MEDS: dextrose 5 % 500 ML 100 ML IV (21:18)
[2020-05-18] MEDS: dextrose 50% syringe 50 mL IVP (21:18)
[2020-05-18 21:19] LABS: Glucose Point of Care 56 mg/dL (70-110)
[2020-05-18] MEDS: enoxaparin 120 mg/0.8 mL Syringe 110 MG SUBCUT (21:40)
[2020-05-18 21:58] LABS: Glucose Point of Care 215 mg/dL (70-110)
[2020-05-18 21:58] LABS: Glucose Point of Care 168 mg/dL (70-110)
[2020-05-18] MEDS: cefepime 2,000 MG in sodium chloride 0.9% (plus) 50 ML 100 MG IV (22:14)
[2020-05-18] MEDS: acyclovir 1,000 MG in sodium chloride 0.9% (100 ml) 100 ML 120 MG IV (22:14)
[2020-05-18] MEDS: insulin glargine 100 units/1 mL 25 UNIT SUBCUT (22:15)
[2020-05-18] MEDS: metoprolol tartrate 1 mg/1 mL SDV 5 mL 2.5 MG IV (22:19)
[2020-05-18 23:54] LABS: Glucose Point of Care 143 mg/dL (70-110)
[2020-05-19] VITALS (17 sets, daily range): BP systolic 111–153; BP diastolic 60–78; PULSE 68–79; RESP 16–29; TEMP 36.7–37.3; O2SAT 90–97
[2020-05-19] MEDS: iron sucrose 200 MG in sodium chloride 0.9% (100 ml) 100 ML 220 MG IV ×2 (00:09→20:57)
[2020-05-19 00:51] LABS: Glucose Point of Care 144 mg/dL (70-110)
[2020-05-19] MEDS: metoprolol tartrate 1 mg/1 mL SDV 5 mL 2.5 MG IV ×3 (01:58→20:54)
[2020-05-19] MEDS: dexmedetomidine 400 MCG in sodium chloride 0.9% (100 ml) 100 ML 14.7 MCG IV ×2 (01:59→11:34)
[2020-05-19] MEDS: acyclovir 1,000 MG in sodium chloride 0.9% (100 ml) 100 ML 120 MG IV ×3 (01:59→20:51)
[2020-05-19 02:05] LABS: Basophils # 0.1 10^3/uL (0.0-0.1); Basophils % 0.7 %; Eosinophils # 0.2 10^3/uL (0.0-0.8); Eosinophils % 1.8 %; Hematocrit 37.7 % (37.0-47.0); Hemoglobin 11.4 g/dL (11.5-15.3); Lymphocytes % 8.6 %; Mean Corpuscular HGB Conc 30.2 g/dL (30.0-36.0); Mean Corpuscular Hemoglobin 25.7 pg (28.0-34.0); Mean Corpuscular Volume 85.1 fL (81-99); Mean Platelet Volume 10.1 fL (7.4-10.4); Monocytes # 0.5 10^3/uL (0.2-0.9); Monocytes % 4.7 %; Neutrophils # 9.31 10^3/uL (1.8-7.7); Neutrophils % 83.8 %; Nucleated Red Blood Cells % 0 %; Platelet Count 230 10^3/cmm (130-400); Red Blood Count 4.43 10^6/uL (4.1-5.3); Red Cell Distribution Width 15.8 % (12.1-15.1); White Blood Count 11.1 10^3/uL (4.0-10.0)
[2020-05-19 02:32] LABS: Potassium, Radom Urine 72 mmol/L; Urine Random Chloride 57 mmol/L; Urine Random Sodium 99 mmol/L
[2020-05-19 02:37] LABS: Magnesium 1.9 mg/dL (1.7-2.3)
[2020-05-19 02:41] LABS: Troponin 5 6HR 14.48 ng/L (0-10)
[2020-05-19 02:42] LABS: Alanine Aminotransferase 19 U/L (0-33); Albumin Level 3.4 g/dL (3.5-5.2); Alkaline Phosphatase 208 IU/L (35-105); Anion Gap 16.7 (5-19); Aspartate Amino Transferase 22 U/L (0-32); Blood Urea Nitrogen 11 mg/dL (6-20); Calcium 8.5 mg/dL (8.5-10.5); Carbon Dioxide 21 mmol/L (22-29); Chloride 107 mmol/L (98-107); Globulin 2.4 g/dL (1.3-4.6); Glomerular Filtration Rate 88.2 mL/min (90-130); Glucose 152 mg/dL (65-115); Osmolality Calculated 294 mOsm/kg (285-295); Potassium 3.7 mmol/L (3.5-5.1); Sodium 141 mmol/L (136-145); Total Bilirubin 0.5 mg/dL (0.15-1.2); Total Protein 5.8 g/dL (6.6-8.7)
[2020-05-19 02:43] LABS: C Reactive Protein 8.1 mg/L (0.0-4.9)
[2020-05-19 02:52] LABS: Rapid Plasma Reagin Syphilis Nonreactive (Nonreactive)
[2020-05-19 02:52] LABS: Creatine Phosphokinase 433 U/L (26-192)
[2020-05-19 02:56] LABS: Hepatitis A Antibody IgM Non-Reactive (Nonreactive); Hepatitis B Core AB, Total Non-Reactive (Nonreactive); Hepatitis B Surface AB 3.5 (0-8.5); Hepatitis B Surface Antigen Non-Reactive (Nonreactive); Hepatitis C Virus Antibody Non-Reactive (Nonreactive)
[2020-05-19 03:44] LABS: INR 1.17 (0.8-1.2)
[2020-05-19 03:46] LABS: Ferritin 44 ng/mL (15-150)
[2020-05-19 04:02] LABS: Fibrinogen 406 mg/dL (174-498)
[2020-05-19 04:04] LABS: D Dimer 1.66 ug/mIFEU (0-0.59)
[2020-05-19 04:15] LABS: Glucose Point of Care 105 mg/dL (70-110)
--- NOTE | 2020-05-19 06:00 | XR_ITS ---
WS: [id number] XR chest 1V portable [id number] REASON FOR EXAM: covid FINDINGS: In comparison to the chest x-ray of the prior day the diffuse infiltrative changes seen in both lungs are essentially unchanged. No new findings in the chest are identified. XR/XR chest 1V portable [id number] IMPRESSION: Stable abnormal chest.
[2020-05-19] MEDS: enoxaparin 120 mg/0.8 mL Syringe 110 MG SUBCUT ×2 (06:02→17:46)
[2020-05-19 07:18] LABS: Lactate Dehydrogenase 528 U/L (135-214)
[2020-05-19] MEDS: sodium chloride 0.9% 1,000 ML 75 ML IV ×2 (08:21→20:53)
[2020-05-19] MEDS: cefepime 2,000 MG in sodium chloride 0.9% (plus) 50 ML 100 MG IV ×2 (08:21→20:52)
[2020-05-19 08:52] LABS: Glucose Point of Care 104 mg/dL (70-110)
--- NOTE | 2020-05-19 10:22 | PC.NURSE ---
patient will not follow commands at this time
[2020-05-19] MEDS: haloperidol inj 5 mg/mL INJ 1 mL IM ×3 (11:33→23:24)
[2020-05-19] MEDS: dexamethasone 4 mg/mL INJ 6 MG IVP (12:13)
--- NOTE | 2020-05-19 12:30 | PC.NURSE ---
Patient very confused and agitated. ok'd to give haldol IV instead of IM injection.
[2020-05-19] MEDS: FUROsemide 10 mg/mL SDV 2mL 20 MG IVP (12:58)
[2020-05-19 13:17] LABS: Procalcitonin 0.06 ng/mL (0-0.5)
[2020-05-19] MEDS: morphine 4 mg/mL SDV 1 mL 2 MG IVP ×2 (14:09→21:34)
[2020-05-19] MEDS: ipratropium-albuterol 3 mL Neb INHALATION ×2 (15:02→20:12)
[2020-05-19 15:50] LABS: Glucose Point of Care 154 mg/dL (70-110)
[2020-05-19] MEDS: dexmedetomidine 400 MCG in sodium chloride 0.9% (100 ml) 100 ML 17.7 MCG IV (17:23)
--- NOTE | 2020-05-19 17:41 | P.PN_ITS ---
Subjective Subjective: Interval history: No acute events overnight. Sitter at bedside. On examination patient is a little more awake and is able to follow simple commands. She still disoriented and having episodes of shouting in between. She is able to tell me her name but is extremely forgetful. She is on 4 L nasal cannula oxygen supplementation to keep her saturation over 92%. She has r emained hemodynamically stable and remained afebrile. Documented urine output more than 2 L. No diarrhea since admission. Vitals/I&O/Wt Last Vital Signs Temp 98.9 F 05/19/20 13:00 Pulse 68 05/19/20 14:55 Resp 16 05/19/20 14:55 BP 111/78 05/19/20 06:00 Pulse Ox 96 05/19/20 14:55 05/19/20 05/19/20 05/19/20 06:59 14:59 22:59 Intake Total 3000.97 / 3373.000 1553.58 / 1553.58 422.925 / 1976.505 Output Total 725 / 2525 1650 / 1650 Balance 2275.97 / 275.506 9110.58 / 1553.58 -1227.075 / 326.505 Weight last 48 hrs Weight 89.267 kg Weight 113.398 kg Physical Exam Narrative: EXAM NARRATIVE: General: Confused, awake, able to follow simple commands, able to hold occasional conversations, shouting in between HEENT: PERRLA, pupils bilaterally equal and reactive Chest: Normal vesicular breath sounds, occasional rhonchi present in right lower zone, equal good air entry bilaterally CVS: S1-S2 regular, no murmurs, no tachycardia, no gallops, no rubs Abdomen: Soft, nontender, no organomegaly, bowel sounds present Neuro: Moving all limbs appropriately, no jerky movements witnessed today during examination Urinary Catheter Management^: Dent: Cath Placed During This Visit: yes Reason for Continuing Indwelling Catheter: Accurate Measurement of Urinary Output in Critically Ill Patients Urinary Catheter Date of Insertion: 05/18/20 Urinary Catheter Time of Insertion: 15:00 Data : 05/19/20 00:00 05/19/20 00:00 Micro: Microbiology 05/18/20 14:17 Blood Culture - Preliminary Blood NEGATIVE TO DATE 05/19/20 00:01 MRSA Culture - Final Nose 05/18/20 12:05 Blood Culture - Preliminary Blood NEGATIVE TO DATE 05/19/20 00:01 Bacterial Antigens - Final Urine,Clean Catch 05/19/20 00:01 Cryptococcal Antigen - Final Blood 05/18/20 12:05 Legionella Urinary Antigen - Final Urethra A&P Assessment and plan (1) Altered mental status: Status: Acute (2) Meningoencephalitis: Status: Acute (3) COVID-19: Status: Acute (4) Seizures: Status: Acute (5) Low back pain with sciatica: Status: Acute (6) PVD (peripheral vascular disease): Status: Acute (7) Essential hypertension: Status: Acute (8) Long-term current use of opiate analgesic: Status: Chronic (9) Diabetes: Status: Acute (10) Emphysema/COPD: Status: Inactive Qualifiers: Emphysema type: centrilobular Qualified Code(s): J43.2 - Centrilobular emphysema (11) Portal vein thrombosis: Status: Acute (12) Chronic anticoagulation: Status: Acute (13) Immunocompromised: Status: Acute Additional A&P Information Altered mental status: 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 Patient does not have any signs of sepsis. No leukocytosis no fever hemodynamically sta ble, lactate normal. Patient is immunocompromised because of chronic steroids, Actemra. Given the symptoms and history really concerning for meningoencephalitis but unfortunately cannot do the LP because patient is extremely incoherent and is on Eliquis with last dose taken on 05/17. Patient would need to be at least off Eliquis for next 72 hours for lumbar puncture. COVID-19: No signs of pneumonia as patient is maintaining saturation on room air. High concerns for COVID-19 meningoencephalitis though cannot rule out other etiologies of meningoencephalitis. Flu swab, respiratory viral panel, HIV, QuantiFERON awaited. MRSA swab negative, blood cultures negative till now, bacterial antigen, urine Legionella antigen, cryptococcal antigen negative. Hepatitis panel negative HSV IgG/IgM PCR awaited. Start patient on antibiotic treatment with remdesivir. Day 2/5 today. Start on dexamethasone 6 mg IV daily. MRSA negative. Stop vancomycin. Continue with cefepime and acyclovir at renal dose for now. If patient continues to have cementation like she is doing today patient will most likely require MRI head and neck tomorrow. Normal saline at 75 cc/h. Vitamin C, zinc once patient is able to take orally. Pulmonary toilet once able to. Continue to monitor oxygen supplementation keeping saturation over 92%. Advair, Spiriva. One-to-one sitter. Start patient on Precedex drip. If required can give Haldol 5 mg IM every 4 hours as needed. Zofran as needed, Protonix for PUD prophylaxis. Possible seizures: As per chart review patient did follow-up with Dr. Vann on April 14 and did an EEG though no results present in the system. As per the study was unifocal. Continue with Keppra 1 g IV twice daily. Once patient is a lot more stable can plan for lumbar puncture and MRI brain. Seizure precautions, fall precautions, neurochecks every 1 hour. As patient is a little more awake can start patient on her chronic medications including aspirin, statin, baclofen as needed, gabapentin at her goal lower dose of 300 mg twice daily, cilostazol, oxycodone IR 15 mg twice daily as needed. Chronic immunosuppression: Patient is chronically on steroids, Actemra. Continue with dexamethasone as above. Hypertension: Goal blood pressure less than 140/90 mmHg. Continue to monitor. We will switch Lopressor to IV 2.5 every 6 hours. Last echocardiogram from February 2020 shows an EF of 55% grade 1 diastolic dysfunction, moderate TR, mild MR with RVSP of 41 mmHg. Normal Lexisc and March 2020. Type 2 diabetes mellitus: Start patient on moderate insulin sliding scale every 6 hours as patient is n.p.o. We will decrease the dose of Lantus to 25 units from 50 units at home dose. Portal vein thrombosis: Patient is on chronic anticoagulation with Eliquis: Stop Eliquis for now for possible lumbar puncture. C/w full dose Lovenox 1 mg/kg body weight every 12 hourly. Patient's care discussed in detail with patient's . All the questions were answered. We will change medication as per the clinical picture. Full code. NPO. Full dose Lovenox. Protonix IV. Admit to viral ICU. Attestations Medical Necessity Statement*: AMS, COVID 19, Meningoencephalitis Time Spent in Patient Care: Greater than 35 minutes (>than 50% of time spent in counselling and/or direct pt care on unit) . 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
[2020-05-19 19:00] LABS: Influenza A by IFA Negative (Negative); Influenza B by IFA Negative (Negative)
[2020-05-19] MEDS: budesonide 0.5 mg/2 mL Neb INHALATION (20:12)
[2020-05-19 20:53] LABS: Glucose Point of Care 259 mg/dL (70-110)
[2020-05-19] MEDS: pantoprazole 40 mg SDV IVP (20:54)
[2020-05-19] MEDS: insulin glargine 100 units/1 mL 25 UNIT SUBCUT (21:01)
[2020-05-20] VITALS (17 sets, daily range): BP systolic 98–154; BP diastolic 50–88; PULSE 72–87; RESP 15–26; TEMP 36.8–36.9; O2SAT 90–98
[2020-05-20] MEDS: promethazine 25 mg/mL SDV 1 mL 12.5 MG IM (01:03)
[2020-05-20] MEDS: morphine 4 mg/mL SDV 1 mL 2 MG IVP ×3 (01:46→22:04)
[2020-05-20 02:55] LABS: Glucose Point of Care 357 mg/dL (70-110)
[2020-05-20] MEDS: metoprolol tartrate 1 mg/1 mL SDV 5 mL 2.5 MG IV ×3 (02:57→15:44)
[2020-05-20 03:22] LABS: Basophils % 0.3 %; Hematocrit 34.9 % (37.0-47.0); Hemoglobin 10.7 g/dL (11.5-15.3); Lymphocytes % 8.6 %; Mean Corpuscular HGB Conc 30.7 g/dL (30.0-36.0); Mean Corpuscular Hemoglobin 25.9 pg (28.0-34.0); Mean Corpuscular Volume 84.5 fL (81-99); Mean Platelet Volume 11.3 fL (7.4-10.4); Monocytes # 0.6 10^3/uL (0.2-0.9); Monocytes % 5.5 %; Neutrophils # 9.91 10^3/uL (1.8-7.7); Neutrophils % 85.3 %; Nucleated Red Blood Cells % 0 %; Platelet Count 154 10^3/cmm (130-400); Red Blood Count 4.13 10^6/uL (4.1-5.3); Red Cell Distribution Width 15.9 % (12.1-15.1); White Blood Count 11.6 10^3/uL (4.0-10.0)
[2020-05-20] MEDS: acyclovir 1,000 MG in sodium chloride 0.9% (100 ml) 100 ML 120 MG IV ×3 (03:31→18:16)
[2020-05-20] MEDS: dexmedetomidine 400 MCG in sodium chloride 0.9% (100 ml) 100 ML 20.6 MCG IV ×3 (03:31→22:05)
[2020-05-20 05:48] LABS: Fibrinogen 435 mg/dL (174-498)
[2020-05-20] MEDS: haloperidol inj 5 mg/mL INJ 1 mL IM (05:53)
[2020-05-20] MEDS: enoxaparin 120 mg/0.8 mL Syringe 110 MG SUBCUT ×2 (06:00→18:17)
[2020-05-20 06:21] LABS: Alanine Aminotransferase 17 U/L (0-33); Albumin Level 2.9 g/dL (3.5-5.2); Alkaline Phosphatase 177 IU/L (35-105); Blood Urea Nitrogen 34 mg/dL (6-20); C Reactive Protein 31.5 mg/L (0.0-4.9); Calcium 8.4 mg/dL (8.5-10.5); Carbon Dioxide 16 mmol/L (22-29); Chloride 103 mmol/L (98-107); Creatine Phosphokinase 238 U/L (26-192); Ferritin 344 ng/mL (15-150); Globulin 2.7 g/dL (1.3-4.6); Glomerular Filtration Rate 88.2 mL/min (90-130); Glucose 331 mg/dL (65-115); Osmolality Calculated 303 mOsm/kg (285-295); Sodium 136 mmol/L (136-145); Total Bilirubin 0.3 mg/dL (0.15-1.2); Total Protein 5.6 g/dL (6.6-8.7)
[2020-05-20 06:32] LABS: Anion Gap 20.8 (5-19); Aspartate Amino Transferase 20 U/L (0-32); Lactate Dehydrogenase 432 U/L (135-214); Potassium 3.8 mmol/L (3.5-5.1)
[2020-05-20] MEDS: cefepime 2,000 MG in sodium chloride 0.9% (plus) 50 ML 100 MG IV ×2 (08:15→20:40)
[2020-05-20] MEDS: atorvastatin 40 mg Tablet 80 MG PO (08:16)
[2020-05-20] MEDS: zinc gluconate 50 mg Tablet PO (08:16)
[2020-05-20] MEDS: ascorbic acid 500 mg Tablet PO (08:16)
[2020-05-20] MEDS: aspirin 81 mg EC Tablet PO (08:16)
[2020-05-20] MEDS: gabapentin 300 mg Capsule PO ×2 (08:16→18:17)
[2020-05-20] MEDS: cilostazol 100 mg Tablet 50 MG PO ×2 (08:20→18:16)
[2020-05-20] MEDS: escitalopram 10 mg Tablet 20 MG PO (08:21)
[2020-05-20] MEDS: budesonide 0.5 mg/2 mL Neb INHALATION (08:35)
[2020-05-20] MEDS: ipratropium-albuterol 3 mL Neb INHALATION ×2 (08:35→15:00)
--- NOTE | 2020-05-20 10:03 | PC.NURSE ---
Confusion Updated (VSS, confusion better, 2lnc) via phone and did telephone consent for Lumbar Puncture. stated has done this 2x before, both after taking her Chantix. He stated she was also taking Tramadol.He reports this time is worse.
[2020-05-20 10:17] LABS: Glucose Point of Care 284 mg/dL (70-110)
[2020-05-20] MEDS: sodium chloride 0.9% 1,000 ML 75 ML IV (10:26)
[2020-05-20] MEDS: FUROsemide 10 mg/mL SDV 2mL 20 MG IVP (12:34)
[2020-05-20] MEDS: dexamethasone 4 mg/mL INJ 6 MG IVP (12:34)
[2020-05-20 13:25] LABS: Glucose Point of Care 188 mg/dL (70-110)
[2020-05-20 13:54] LABS: D Dimer 2.14 ug/mIFEU (0-0.59)
[2020-05-20 15:33] LABS: Glucose Point of Care 154 mg/dL (70-110)
--- NOTE | 2020-05-20 16:15 | P.PN_ITS ---
Subjective Subjective: Interval history: No acute events overnight. Sitter at bedside. On examination today morning patient is a little more awake and following more commands. He she is AO times to self and place. She does have occasions of confusion and mild agitation. She did receive Haldol yesterday and overnight as well. Patient has remained hemodynamically stable and afebrile. Documented urine output in last 24 hours 2300 cc. Patient is saturating more than 90% on 2 L nasal cannula. Vitals/I&O/Wt Last Vital Signs Temp 98.5 F 05/20/20 04:00 Pulse 76 05/20/20 12:00 Resp 26 H 05/20/20 12:00 BP 110/67 05/20/20 12:00 Pulse Ox 90 05/20/20 12:00 05/20/20 05/20/20 05/20/20 06:59 14:59 22:59 Intake Total 1204 / 6324.505 1154 / 1154 Output Total 350 / 2300 Balance 854 / 4024.505 1154 / 1154 Weight last 48 hrs Weight 100.017 kg Weight 89.267 kg Physical Exam Narrative: EXAM NARRATIVE: General: Confused, awake, AO x1-2, able to hold conversation, has occasional episodes of confusion. HEENT: PERRLA, pupils bilaterally equal and reactive Chest: Normal vesicular breath sounds, occasional rhonchi present in right lower zone, equal good air entry bilaterally CVS: S1-S2 regular, no murmurs, no tachycardia, no gallops, no rubs Abdomen: Soft, nontender, no organomegaly, bowel sounds present Neuro: Moving all limbs appropriately, no jerky movements witnessed today during examination Urinary Catheter Management^: Dent: Cath Placed During This Visit: yes Reason for Continuing Indwelling Catheter: Accurate Measurement of Urinary Output in Critically Ill Patients Urinary Catheter Date of Insertion: 05/18/20 Urinary Catheter Time of Insertion: 15:00 Data : 05/20/20 02:00 05/20/20 04:15 Micro: Microbiology 05/18/20 14:17 Blood Culture - Preliminary Blood NEGATIVE TO DATE 05/19/20 00:01 MRSA Culture - Final Nose 05/18/20 12:05 Blood Culture - Preliminary Blood NEGATIVE TO DATE 05/19/20 00:01 Bacterial Antigens - Final Urine,Clean Catch 05/19/20 00:01 Cryptococcal Antigen - Final Blood A&P Assessment and plan (1) Altered mental status: Status: Acute (2) Meningoencephalitis: Status: Acute (3) COVID-19: Status: Acute (4) Seizures: Status: Acute (5) Low back pain with sciatica: Status: Acute (6) PVD (peripheral vascular disease): Status: Acute (7) Essential hypertension: Status: Acute (8) Long-term current use of opiate analgesic: Status: Chronic (9) Diabetes: Status: Acute (10) Emphysema/COPD: Status: Inactive Qualifiers: Emphysema type: centrilobular Qualified Code(s): J43.2 - Centrilobular emphysema (11) Portal vein thrombosis: Status: Acute (12) Chronic anticoagulation: Status: Acute (13) Immunocompromised: Status: Acute Additional A&P Information Altered mental status: 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 Patient does not have any signs of sepsis. No leukocytosis no fever hemodynamically stable, lactate normal. Patient is immunocompromised because of chronic steroids, Actemra. Given the symptoms and history really concerning for meningoencephalitis but u nfortunately could not do the LP for 72 hours post last Eliquis which was taken on 05/17. COVID-19: No signs of pneumonia as patient is maintaining saturation on room air. High concerns for COVID-19 meningoencephalitis though cannot rule out other etiologies of meningoencephalitis. Flu swab, respiratory viral panel, HIV, QuantiFERON awaited. MRSA swab negative, blood cultures negative till now, bacterial antigen, urine Legionella antigen, cryptococcal antigen negative. Hepatitis panel negative HSV IgG/IgM PCR awaited. Continue antiviral treatment with remdesivir. Day 3/5 today. Continue on dexamethasone 6 mg IV daily. MRSA negative. So vancomycin stopped. Continue with cefepime and acyclovir at renal dose for now. Patient is 72 hours post Eliquis today so will undergo lumbar puncture later in the day. We will change the antibiotics and antiviral as per the results from the lumbar puncture. Normal saline at 75 cc/h. Vitamin C, zinc Pulmonary toilet incentive spirometry and flutter valve. Continue to monitor oxygen supplementation keeping saturation over 92%. Advair, Spiriva. One-to-one sitter. Continue with Precedex drip. If required can give Haldol 5 mg IM every 4 hours as needed. Zofran as needed, Protonix for PUD prophylaxis. Possible seizures: As per chart review patient did follow-up with Dr. Vann on April 14 and did an EEG though no results present in the system. As per the study was not completed as patient was not able to lie down straight. Continue with Keppra 1 g IV twice daily. Once patient is a lot more stable can plan for lumbar puncture and MRI brain. Seizure precautions, fall precautions, neurochecks every 1 hour. As patient is a little more awake can start patient on her chronic medications including aspirin, statin, baclofen as needed, gabapentin at her goal lower dose of 300 mg twice daily, cilostazol, oxycodone IR 15 mg twice daily as needed. Chronic immunosuppression: Patient is chronically on steroids, Actemra. Continue with dexamethasone as above. Hypertension: Goal blood pressure less than 140/90 mmHg. Continue to monitor. Home dose of Lopressor. Last echocardiogram from February 2020 shows an EF of 55% grade 1 diastolic dysfunction, moderate TR, mild MR with RVSP of 41 mmHg. Normal Lexiscan and March 2020. Type 2 diabetes mellitus: Was running higher. Start patient on full liquid carb consistent diet. Continue with insulin sliding scale at moderate to high dose every 4 hours. Increase Lantus to 30 units nightly. Portal vein thrombosis: Patient is on chronic anticoagulation with Eliquis: Stop Eliquis for now for possible lumbar puncture. C/w full dose Lovenox 1 mg/kg body weight every 12 hourly. Hold off for now for lumbar puncture later in the day and will restart after that most likely stanley orrow. Patient's care discussed in detail with patient's . All the questions were answered. We will change medication as per the clinical picture. Full code. Full liquid diet Full dose Lovenox. Protonix IV. Attestations Medical Necessity Statement*: Patient requires further hospitalization for e valuation and management of altered mental status most likely secondary to meningoencephalitis, COVID-19 Time Spent in Patient Care: Greater than 35 minutes (>than 50% of time spent in counselling and/or direct pt care on unit) . Coding Level of Care Code Acute [employer] Home [employer] Work[employer] for 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
[2020-05-20] MEDS: metoprolol tartrate 25 mg Tablet 12.5 MG PO (18:17)
--- NOTE | 2020-05-20 19:00 | PC.NURSE ---
Report received, care assumed. Monitor alarms, plan of care et previous orders reviewed. Patient currently on a Precedex gtt, titrating per agitation. See vital sign et physical assessment flowsheets for details.
--- NOTE | 2020-05-20 20:00 | PC.NURSE ---
Fall risk assessment: Patient is impulsive et has short term memory loss. Patient is not able to recall instructions or reorientation attempts past 2 minutes. Patient is also very impatient et does not wait if she is wanting something.
--- NOTE | 2020-05-20 20:00 | PC.NURSE ---
05/20/201999 Neurological assessment form comments: Patient is oriented to person, place, situation et month but patient will occasionally make a confused comment. Patient also has a very short attention span et short term memory. Patient is not able to remember answers to questions that were answered less than 5 minutes ago. Patient is also very impulsive.
--- NOTE | 2020-05-20 20:00 | PC.NURSE ---
Elopement Risk Assessment comments: Patient does not appear to be an elopement risk. She is cooperative et pleasant. She is wanting medical treatment. Her short term memory et impulsive behavior is why she has a 1:1 sitter.
[2020-05-20 20:31] LABS: Glucose Point of Care 312 mg/dL (70-110)
[2020-05-20] MEDS: pantoprazole 40 mg SDV IVP (20:37)
[2020-05-20] MEDS: iron sucrose 200 MG in sodium chloride 0.9% (100 ml) 100 ML 400 MG IV (20:37)
[2020-05-20] MEDS: insulin glargine 100 units/1 mL 30 UNIT SUBCUT (20:39)
--- NOTE | 2020-05-20 21:00 | PC.NURSE ---
05/20/20 [facility] [place] [facility] Neurological Assessment comments: Patient continues to be oriented to orientation questions but will occasionally make comments that are not appropriate et make her seem confused. Patient is also very impulsive et has short term memory loss unable to remember answers to questions or reorientation instructions/ information.
--- NOTE | 2020-05-20 22:00 | PC.NURSE ---
Rounding, turning, form comments: Patient is currently very anxious turning from one side to the other.
--- NOTE | 2020-05-20 22:00 | PC.NURSE ---
05/20/20 220 Critical Care Assessment Comments: Patient very restless et complaining over everything hurting. RN reviewed records et spoke with patient about pain management regimen at home. Also inquired the patient's drinking and substance use. Patient stated that she did not drink but H&P noted that the patient took 15 mg Oxycodone BID at home plus gabapentin. Patient has not been receiving oxycodone during this hospital stay. Will reassess patient's status once she has received oxycodone.
--- NOTE | 2020-05-20 22:00 | PC.NURSE ---
05/20/202199 Restraint assessment form: Bilateral soft ankle restraints were removed around 2029. Patient was not displaying behaviors such as kicking or trying to use her lower extremities inappropriately. Will continue to monitor.
[2020-05-20] MEDS: oxyCODONE 5 mg IR Tab/Cap 15 MG PO (22:26)
[2020-05-21] VITALS (52 sets, daily range): BP systolic 93–146; BP diastolic 43–92; PULSE 64–95; RESP 10–30; TEMP 36.4–37.6; O2SAT 88–99
--- NOTE | 2020-05-21 | PC.NURSE ---
Critical Care Assessment comments: The patient's assessment findings were unchanged except for the Sibley Score. Patient is resting in bed with eyes closed. Patient will open eyes to verbal command et takes some prompting throughout the exam to keep eyes open to participate in the exam. After verbal stimulation to keep eyes open for exam is removed the patient remained in bed with eyes closed. Precedex gtt reduced to 0.5 mcg/kg/hr. Will continue to monitor.
[2020-05-21 00:17] LABS: Glucose Point of Care 247 mg/dL (70-110)
[2020-05-21] MEDS: sodium chloride 0.9% 1,000 ML 75 ML IV ×2 (00:20→12:29)
--- NOTE | 2020-05-21 01:00 | PC.NURSE ---
05/21/20 0100 Neurological assessment comments: Patient will open eyes to verbal command et is oriented to orientation questions. Patient is still impulsive et has short term memory deficits. Otherwise neuro assessment is unchanged.
--- NOTE | 2020-05-21 02:00 | PC.NURSE ---
05/21/20 Neurological assessment comments: Please see 0000 neurological assessment comment. That still currently applies. Will continue to monitor.
[2020-05-21] MEDS: acyclovir 1,000 MG in sodium chloride 0.9% (100 ml) 100 ML 120 MG IV ×3 (02:49→19:17)
--- NOTE | 2020-05-21 04:00 | PC.NURSE ---
05/21/20 9030 Critical Care Assessment: Patient remains impulsive et unable to retain short term memories.
[2020-05-21 04:14] LABS: Basophils % 0.2 %; Hematocrit 30.5 % (37.0-47.0); Hemoglobin 9.6 g/dL (11.5-15.3); Lymphocytes # 0.9 10^3/uL (0.8-4.8); Lymphocytes % 9.4 %; Mean Corpuscular HGB Conc 31.5 g/dL (30.0-36.0); Mean Corpuscular Hemoglobin 25.7 pg (28.0-34.0); Mean Corpuscular Volume 81.6 fL (81-99); Mean Platelet Volume 9.8 fL (7.4-10.4); Monocytes # 0.6 10^3/uL (0.2-0.9); Monocytes % 6.5 %; Neutrophils # 7.92 10^3/uL (1.8-7.7); Neutrophils % 83.6 %; Nucleated Red Blood Cells % 0 %; Platelet Count 176 10^3/cmm (130-400); Red Blood Count 3.74 10^6/uL (4.1-5.3); Red Cell Distribution Width 15.6 % (12.1-15.1); White Blood Count 9.5 10^3/uL (4.0-10.0)
[2020-05-21 04:20] LABS: Glucose Point of Care 76 mg/dL (70-110)
[2020-05-21 04:45] LABS: Glucose Point of Care 82 mg/dL (70-110)
[2020-05-21 04:53] LABS: C Reactive Protein 40.9 mg/L (0.0-4.9); Creatine Phosphokinase 230 U/L (26-192); Ferritin 533 ng/mL (15-150); Fibrinogen 418 mg/dL (174-498); Lactate Dehydrogenase 358 U/L (135-214)
[2020-05-21 04:56] LABS: Alanine Aminotransferase 15 U/L (0-33); Albumin Level 2.9 g/dL (3.5-5.2); Alkaline Phosphatase 162 IU/L (35-105); Anion Gap 14.3 (5-19); Aspartate Amino Transferase 18 U/L (0-32); Blood Urea Nitrogen 36 mg/dL (6-20); Calcium 8.2 mg/dL (8.5-10.5); Carbon Dioxide 18 mmol/L (22-29); Chloride 108 mmol/L (98-107); Globulin 2.4 g/dL (1.3-4.6); Glomerular Filtration Rate 47.4 mL/min (90-130); Glucose 107 mg/dL (65-115); Osmolality Calculated 293 mOsm/kg (285-295); Potassium 3.3 mmol/L (3.5-5.1); Sodium 137 mmol/L (136-145); Total Bilirubin 0.3 mg/dL (0.15-1.2); Total Protein 5.3 g/dL (6.6-8.7)
[2020-05-21 04:59] LABS: D Dimer 1.01 ug/mIFEU (0-0.59)
--- NOTE | 2020-05-21 06:00 | XR_ITS ---
WS: [id number] Portable AP upright chest, 05/21/2020 Clinical Data: covid Comparison: Portable chest, 05/19/2020. Findings: The bilateral lung opacities have diminished slightly. The heart size remains normal. Monit or leads are on the chest wall. XR/XR chest 1V portable [id number] Impression: Slight improvement in bilateral lung opacities.
--- NOTE | 2020-05-21 07:02 | PC.NURSE ---
Report given to Danielle BEAVERS.
[2020-05-21 07:54] LABS: Glucose Point of Care 54 mg/dL (70-110)
[2020-05-21 07:54] LABS: Glucose Point of Care 59 mg/dL (70-110)
[2020-05-21 08:03] LABS: Glucose Point of Care 66 mg/dL (70-110)
[2020-05-21] MEDS: dextrose 50% syringe 50 mL 25 ML IVP (08:04)
[2020-05-21] MEDS: ipratropium-albuterol 3 mL Neb INHALATION ×3 (08:24→20:27)
[2020-05-21] MEDS: cefepime 2,000 MG in sodium chloride 0.9% (plus) 50 ML 100 MG IV ×2 (08:47→20:35)
[2020-05-21] MEDS: cilostazol 100 mg Tablet 50 MG PO ×2 (08:48→18:03)
[2020-05-21] MEDS: escitalopram 10 mg Tablet 20 MG PO (08:48)
[2020-05-21] MEDS: atorvastatin 40 mg Tablet 80 MG PO (08:48)
[2020-05-21] MEDS: ascorbic acid 500 mg Tablet PO (08:49)
[2020-05-21] MEDS: zinc gluconate 50 mg Tablet PO (08:49)
[2020-05-21] MEDS: metoprolol tartrate 25 mg Tablet 12.5 MG PO ×2 (08:49→18:03)
[2020-05-21] MEDS: gabapentin 300 mg Capsule PO ×2 (08:49→18:04)
[2020-05-21 09:04] LABS: Glucose Point of Care 157 mg/dL (70-110)
[2020-05-21] MEDS: oxyCODONE 5 mg IR Tab/Cap 15 MG PO ×2 (09:06→22:11)
[2020-05-21] MEDS: budesonide 0.5 mg/2 mL Neb INHALATION ×2 (09:18→20:27)
--- NOTE | 2020-05-21 11:06 | PC.NURSE ---
Spoke to Dr. Lane at 1030 about LP planned for this afternoon. Orders to hold aspirin today. Reported hematuria.
[2020-05-21] MEDS: dexamethasone 4 mg/mL INJ 6 MG IVP (11:15)
[2020-05-21] MEDS: FUROsemide 10 mg/mL SDV 2mL 20 MG IVP (12:29)
[2020-05-21] MEDS: potassium chloride ER 10 mEq Tablet 40 MEQ PO (12:30)
[2020-05-21 14:11] LABS: Glucose Point of Care 166 mg/dL (70-110)
[2020-05-21] MEDS: baclofen 10 mg Tablet PO (14:29)
[2020-05-21 15:24] LABS: Glucose Point of Care 227 mg/dL (70-110)
[2020-05-21] MEDS: morphine 4 mg/mL SDV 1 mL 2 MG IVP (16:09)
--- NOTE | 2020-05-21 16:32 | PC.NURSE ---
Titrated Precedex gtt to 0.3 mcg/kg/hr at 1430 and to 0.4 mcg/kg/hr at 1600 d/t agitation.
--- NOTE | 2020-05-21 17:41 | PM.PN ---
Subjective Subjective: Interval history: This morning patient was examined in the viral ICU, she sitting up in a chair, she is alert oriented x3, follows all commands, answers most questions appropriately, she is knows that she is here in the hospital, because she was acting loopy, she does not know really why, denies headaches, denies blurry vision, denies neck pain, does report some shortness of breath, no chest pain, no lightheadedness, no dizziness, overall she is significantly improved according to nursing staff, mentation has significantly improved Vitals/I&O/Wt Last Vital Signs Temp 97.8 F 05/21/20 14:36 Pulse 83 05/21/20 16:00 Resp 18 05/21/20 16:09 BP 139/74 05/21/20 16:00 Pulse Ox 95 05/21/20 16:00 05/21/20 05/21/20 05/21/20 06:59 14:59 22:59 Intake Total 1584.000 / 4452.000 1571.25 / 1571.25 120 / 1691.25 Output Total 300 / 1750 1150 / 1150 750 / 1900 Balance 1284.000 / 2702.000 421.25 / 421.25 -630 / -208.75 Weight last 48 hrs Weight 95.073 kg Weight 100.017 kg Physical Exam Const: COMMON NORMALS: no acute distress and patient oriented x3 HENMT: COMMON NORMALS: normocephalic HEAD & SCALP: normocephalic Neck/C-Spine: COMMON NORMALS: no JVD Resp: COMMON NORMALS: normal respiratory effort, No retractions, No use of accessory muscles and clear to auscultation bilaterally AUSCULTATION: clear to auscultation bilaterally Cardio: COMMON NORMALS: no JVD, regular rate, regular rhythm, S1 normal heart sound present and S2 normal heart sound present RATE: regular rate RHYTHM: regular rhythm HEART SOUNDS: S1 normal heart sound present and S2 normal heart sound present GI: COMMON NORMALS: Normal to inspection, nondistended, normoactive bowel sounds present, Soft to palpation, non-tender, No hepatosplenomegaly present, no masses and no bruits PALPATION: Yes Soft to palpation and Yes No hepatosplenomegaly present Extremity: COMMON NORMALS: capillary refill normal, no clubbing, cyanosis or edema, no calf tenderness and no pedal edema Neuro: COMMON NORMALS: patient oriented x3 Psych: COMMON NORMALS: mental status grossly normal Urinary Catheter Management^: Dent: Cath Placed During This Visit: yes Reason for Continuing Indwelling Catheter: Accurate Measurement of Urinary Output in Critically Ill Patients Urinary Catheter Date of Insertion: 05/18/20 Urinary Catheter Time of Insertion: 15:00 Data : 05/21/20 04:00 05/21/20 04:00 A&P Assessment and plan (1) Altered mental status: Status: Acute (2) Meningoencephalitis: Status: Acute (3) COVID-19: Status: Acute (4) Seizures: Status: Acute (5) Low back pain with sciatica: Status: Acute (6) PVD (peripheral vascular disease): Status: Acute (7) Essential hypertension: Status: Acute (8) Long-term current use of opiate analgesic: Status: Chronic (9) Diabetes: Status: Acute (10) Emphysema/COPD: Status: Inactive Qualifiers: Emphysema type: centrilobular Qualified Code(s): J43.2 - Centrilobular emphysema (11) Portal vein thrombosis: Status: Acute (12) Chronic anticoagulation: Status: Acute (13) Immunocompromised: Status: Acute Additional A&P Information Altered mental status: 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 Patient does not have any signs of sepsis. No leukocytosis no fever hemodynamically stable, lactate normal. Patient is immunocompromised because of chronic steroids, Actemra. Given the symptoms and history really concerning for meningoencephalitis but unfortunately could not do the LP for 72 hours post last Eliquis which was taken on 05/17. Given her significant improvement in mentation, following all commands, after discussion with pulmonary team, decision was made to not pursue LP as at this point is a bit too late, unless her mentation worsens in the near future, can do it at that point, we will continue to hold Eliquis for now Continue cefepime and acyclovir Stop Keppra Stop Precedex drip Haldol if required for agitation, 5 mg IM every 4 hours as needed Zofran for nausea Protonix for PUD prophylaxis MRI brain ordered, and pending COVID-19: No signs of pneumonia as patient is maintaining saturation on room air. High concerns for COVID-19 meningoencephalitis though cannot rule out other etiologies of meningoencephalitis. Flu swab, respiratory viral panel, HIV, QuantiFERON awaited. MRSA swab negative, blood cultures negative till now, bacterial antigen, urine Legionella antigen, cryptococcal antigen negative. Hepatitis panel negative HSV IgG/IgM PCR awaited. Continue antiviral treatment with remdesivir. Day 4/5 today. Continue on dexamethasone 6 mg IV daily. MRSA negative. So vancomycin stopped. Continue with cefepime and acyclovir at renal dose for now. Patient is 72 hours post Eliquis today so will undergo lumbar puncture later in the day. Stop fluids, monitor creatinine Vitamin C, zinc Pulmonary toilet incentive spirometry and flutter valve. Continue to monitor oxygen supplementation keeping saturation over 92%. Advair, Spiriva. Possible seizures: As per chart review patient did follow-up with Dr. Vann on April 14 and did an EEG though no results present in the system. As per the study was not completed as patient was not able to lie down straight. Unlikely to be seizures, stop Keppra Seizure precautions, fall precautions, neurochecks Start chronic medications including aspirin, statin, -Hold baclofen as needed, gabapentin at her goal lower dose of 300 mg twice daily, cilostazol, oxycodone IR 15 mg twice daily as needed. Chronic immunosuppression: Patient is chronically on steroids, Actemra. Continue with dexamethasone as above. Hypertension: Goal blood pressure less than 140/90 mmHg. Continue to monitor. Home dose of Lopressor. Last echocardiogram from February 2020 shows an EF of 55% grade 1 diastolic dysfunction, moderate TR, mild MR with RVSP of 41 mmHg. Normal Lexisc and March 2020. Type 2 diabetes mellitus: Was running higher. Start patient on full liquid carb consistent diet. Continue with insulin sliding scale at moderate to high dose every 4 hours. Lantus to 30 units nightly. Portal vein thrombosis: Patient is on chronic anticoagulation with Eliquis: Stop Eliquis for now for possible lumbar puncture. Resume Eliquis likely tomorrow morning Patient's care discussed in detail with patient's . All the questions were answered. Full code. Full liquid diet SCDs for DVT prophylaxis Protonix IV. 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
[2020-05-21 18:14] LABS: Glucose Point of Care 294 mg/dL (70-110)
[2020-05-21] MEDS: pantoprazole 40 mg SDV IVP (20:40)
[2020-05-21 20:55] LABS: Glucose Point of Care 169 mg/dL (70-110)
[2020-05-21] MEDS: insulin glargine 100 units/1 mL 30 UNIT SUBCUT (21:59)
[2020-05-21] MEDS: iron sucrose 200 MG in sodium chloride 0.9% (100 ml) 100 ML 220 MG IV (22:38)
[2020-05-21 23:59] LABS: Glucose Point of Care 194 mg/dL (70-110)
[2020-05-22] VITALS (31 sets, daily range): BP systolic 101–172; BP diastolic 57–128; PULSE 86–112; RESP 14–29; TEMP 36.6–37.3; O2SAT 89–98
[2020-05-22] MEDS: sodium chloride 0.9% 1,000 ML 75 ML IV ×2 (01:39→15:51)
[2020-05-22 02:15] LABS: Glucose Point of Care 124 mg/dL (70-110)
[2020-05-22] MEDS: ipratropium-albuterol 3 mL Neb INHALATION ×2 (02:48→09:40)
[2020-05-22 03:36] LABS: Glucose Point of Care 247 mg/dL (70-110)
[2020-05-22] MEDS: acyclovir 1,000 MG in sodium chloride 0.9% (100 ml) 100 ML 120 MG IV ×3 (03:43→18:23)
[2020-05-22 05:04] LABS: Basophils % 0.2 %; Eosinophils % 0.1 %; Hematocrit 34.3 % (37.0-47.0); Hemoglobin 10.4 g/dL (11.5-15.3); Lymphocytes # 0.9 10^3/uL (0.8-4.8); Lymphocytes % 5.5 %; Mean Corpuscular HGB Conc 30.3 g/dL (30.0-36.0); Mean Corpuscular Hemoglobin 25.8 pg (28.0-34.0); Mean Corpuscular Volume 85.1 fL (81-99); Mean Platelet Volume 10.2 fL (7.4-10.4); Monocytes # 0.8 10^3/uL (0.2-0.9); Neutrophils # 14.02 10^3/uL (1.8-7.7); Neutrophils % 88.5 %; Nucleated Red Blood Cells % 0 %; Platelet Count 189 10^3/cmm (130-400); Red Blood Count 4.03 10^6/uL (4.1-5.3); Red Cell Distribution Width 16.1 % (12.1-15.1); White Blood Count 15.8 10^3/uL (4.0-10.0)
[2020-05-22 05:10] LABS: Fibrinogen 443 mg/dL (174-498); INR 0.96 (0.8-1.2)
[2020-05-22 05:13] LABS: D Dimer 1.08 ug/mIFEU (0-0.59)
[2020-05-22 05:46] LABS: NT Pro B Type Natriuretic Pept 1259 pg/mL (0-125); Procalcitonin 0.21 ng/mL (0-0.5)
[2020-05-22 05:49] LABS: Alanine Aminotransferase 18 U/L (0-33); Alkaline Phosphatase 186 IU/L (35-105); Aspartate Amino Transferase 25 U/L (0-32); Blood Urea Nitrogen 29 mg/dL (6-20); Calcium 8.5 mg/dL (8.5-10.5); Carbon Dioxide 15 mmol/L (22-29); Chloride 107 mmol/L (98-107); Globulin 2.8 g/dL (1.3-4.6); Glomerular Filtration Rate 43.2 mL/min (90-130); Glucose 225 mg/dL (65-115); Lactic Sepsis W/Reflex 2.7 mmol/L (0.5-2.2); Osmolality Calculated 299 mOsm/kg (285-295); Sodium 138 mmol/L (136-145); Total Bilirubin 0.3 mg/dL (0.15-1.2); Total Protein 5.8 g/dL (6.6-8.7)
--- NOTE | 2020-05-22 06:00 | ECG_ITS ---
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 Measurements Intervals [place] Rate: 114 P: 62 AR: 157 QRS: 61 QRSD: 78 T: 58 QT: 331 QTc: 456 Interpretive Statements SINUS TACHYCARDIA MODERATE ST DEPRESSION [0.05+ mV ST DEPRESSION] Compared to ECG 05/18/2020 15:41:21 Sinus rhythm no longer present ST (T wave) deviation still present Electronically Signed On 05-26-2020 22:09:37 FIRER MARINE by Galina Bradshaw M.D. [id number]
[2020-05-22 06:06] LABS: Creatine Phosphokinase 381 U/L (26-192)
[2020-05-22 06:31] LABS: Glucose Point of Care 63 mg/dL (70-110)
[2020-05-22 06:35] LABS: Slide Review Slide Review Perform
[2020-05-22 06:41] LABS: Reflex Lactate Order REFLEX LACTIC ORDERD
[2020-05-22 08:20] LABS: Glucose Point of Care 54 mg/dL (70-110)
[2020-05-22 08:20] LABS: Glucose Point of Care 90 mg/dL (70-110)
[2020-05-22] MEDS: metoprolol tartrate 25 mg Tablet 12.5 MG PO ×2 (08:38→17:46)
[2020-05-22] MEDS: ascorbic acid 500 mg Tablet PO (08:38)
[2020-05-22] MEDS: zinc gluconate 50 mg Tablet PO (08:38)
[2020-05-22] MEDS: cefepime 2,000 MG in sodium chloride 0.9% (plus) 50 ML 100 MG IV ×2 (08:38→20:38)
[2020-05-22] MEDS: aspirin 81 mg EC Tablet PO (08:38)
[2020-05-22] MEDS: atorvastatin 40 mg Tablet 80 MG PO (08:38)
[2020-05-22] MEDS: gabapentin 300 mg Capsule PO ×2 (08:38→17:46)
[2020-05-22] MEDS: oxyCODONE 5 mg IR Tab/Cap 15 MG PO ×2 (08:39→20:36)
[2020-05-22] MEDS: cilostazol 100 mg Tablet 50 MG PO ×2 (08:40→17:45)
[2020-05-22] MEDS: escitalopram 10 mg Tablet 20 MG PO (08:42)
[2020-05-22] MEDS: FUROsemide 10 mg/mL SDV 4mL 40 MG IVP (08:57)
[2020-05-22] MEDS: budesonide 0.5 mg/2 mL Neb INHALATION (09:40)
[2020-05-22 11:12] LABS: Glucose Point of Care 81 mg/dL (70-110)
[2020-05-22] MEDS: dexamethasone 4 mg/mL INJ 6 MG IVP (11:55)
--- NOTE | 2020-05-22 12:41 | PM.PN ---
Subjective Subjective: Interval history: This morning patient was examined, she is laying in bed, she was up to the chair yesterday according to nursing staff, alert oriented x3, answering all questions appropriately, she does have intermittent episodes of confusion according to nursing staff, but with redirection she is able to answer most questions appropriately. She sleeping in bed when I woke her up, she did get a pain medication, a bit more somnolent than usual, she does answer all questions appropriately, but does require more stimulation, and redirection, alert oriented x3, answering most questions appropriately, patient does state that she has sleep apnea, will place her on CPAP hat, has no particular complaints this morning Vitals/I&O/Wt Last Vital Signs Temp 98.1 F 05/22/20 11:00 Pulse 86 05/22/20 11:00 Resp 18 05/22/20 11:00 BP 101/57 05/22/20 11:00 Pulse Ox 90 05/22/20 10:59 05/21/20 05/22/20 05/22/20 22:59 06:59 14:59 Intake Total 410 / 2031.25 1807.5 / 3838.75 910 / 910 Output Total 2350 / 3500 1350 / 4850 1800 / 1800 Balance -1940 / -1468.75 457.5 / -1011.25 -890 / -890 Weight last 48 hrs Weight 93.848 kg Weight 95.073 kg Physical Exam Const: COMMON NORMALS: no acute distress and patient oriented x3 HENMT: COMMON NORMALS: normocephalic HEAD & SCALP: normocephalic Neck/C-Spine: COMMON NORMALS: no JVD Resp: COMMON NORMALS: normal respiratory effort, No retractions, No use of accessory muscles and clear to auscultation bilaterally AUSCULTATION: clear to auscultation bilaterally Cardio: COMMON NORMALS: no JVD, regular rate, regular rhythm, S1 normal heart sound present and S2 normal heart sound present RATE: regular rate RHYTHM: regular rhythm HEART SOUNDS: S1 normal heart sound present and S2 normal heart sound present GI: COMMON NORMALS: Normal to inspection, nondistended, normoactive bowel sounds present, Soft to palpation, non-tender, No hepatosplenomegaly present, no masses and no bruits PALPATION: Yes Soft to palpation and Yes No hepatosplenomegaly present Extremity: COMMON NORMALS: capillary refill normal, no clubbing, cyanosis or edema, no calf tenderness and no pedal edema Neuro: COMMON NORMALS: patient oriented x3 Psych: COMMON NORMALS: mental status grossly normal OTHER: A bit more somnolent this morning, requires redirection Urinary Catheter Management^: Dent: Cath Placed During This Visit: yes Reason for Continuing Indwelling Catheter: Accurate Measurement of Urinary Output in Critically Ill Patients Urinary Catheter Date of Insertion: 05/18/20 Urinary Catheter Time of Insertion: 15:00 Data : 05/22/20 04:17 05/22/20 04:17 A&P Assessment and plan (1) Altered mental status: Status: Acute (2) Meningoencephalitis: Status: Acute (3) COVID-19: Status: Acute (4) Seizures: Status: Acute (5) Low back pain with sciatica: Status: Acute (6) PVD (peripheral vascular disease): Status: Acute (7) Essential hypertension: Status: Acute (8) Long-term current use of opiate analgesic: Status: Chronic (9) Diabetes: Status: Acute (10) Emphysema/COPD: Status: Inactive Qualifiers: Emphysema type: centrilobular Qualified Code(s): J43.2 - Centrilobular emphysema (11) Portal vein thrombosis: Status: Acute (12) Chronic anticoagulation: Status: Acute (13) Immunocompromised: Status: Acute Additional A&P Information Altered mental status: 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 Patient does not have any signs of sepsis. White blood cell count 15.8, neutrophilic, 14.02 no fever, hemodynamically stable, lactate normal. Patient is immunocompromised because of chronic steroids, Actemra. Given the symptoms and history really concerning for meningoencephalitis but unfortunately could not do the LP for 72 hours post last Eliquis which was taken on 05/17. Given her significant improvement in mentation, following all commands, after discussion with pulmonary team, decision was made to not pursue LP as at this point is a bit too late, unless her mentation worsens in the near future, can do it at that point, we will continue to hold Eliquis for now Today a bit more somnolent, but answers most questions appropriately Continue cefepime and acyclovir Stopped Keppra Stopped Precedex drip Haldol if required for agitation, 5 mg IM every 4 hours as needed Zofran for nausea Protonix for PUD prophylaxis MRI brain ordered, and pending COVID-19: No signs of pneumonia as patient is maintaining saturation on room air. High concerns for COVID-19 meningoencephalitis though cannot rule out other etiologies of meningoencephalitis. Flu swab, respiratory viral panel, HIV, QuantiFERON awaited. MRSA swab negative, blood cultures negative till now, bacterial antigen, urine Legionella antigen, cryptococcal antigen negative. Hepatitis panel negative HSV IgG/IgM PCR awaited. Continue antiviral treatment with remdesivir. Day 4/5 today. Continue on dexamethasone 6 mg IV daily. MRSA negative. So vancomycin stopped. Continue with cefepime and acyclovir at renal dose for now. Patient is 72 hours post Eliquis today so will undergo lumbar puncture later in the day. Stop fluids, monitor creatinine Vitamin C, zinc Pulmonary toilet incentive spirometry and flutter valve. Continue to monitor oxygen supplementation keeping saturation over 92%. Eleanor Richmond. Possible seizures: As per chart review patient did follow-up with Dr. Vann on April 14 and did an EEG though no results present in the system. As per the study was not completed as patient was not able to lie down straight. Unlikely to be seizures, stop Keppra Seizure precautions, fall precautions, neurochecks Start chronic medications including aspirin, statin, -Hold baclofen as needed, gabapentin at her goal lower dose of 300 mg twice daily, cilostazol, oxycodone IR 15 mg twice daily as needed. Chronic immunosuppression: Patient is chronically on steroids, Actemra. Continue with dexamethasone as above. Hypertension: Goal blood pressure less than 140/90 mmHg. Continue to monitor. Home dose of Lopressor. Last echocardiogram from February 2020 shows an EF of 55% grade 1 diastolic dysfunction, moderate TR, mild MR with RVSP of 41 mmHg. Normal Lexisc and March 2020. Type 2 diabetes mellitus: Was running higher. Start patient on full liquid carb consistent diet. Continue with insulin sliding scale at moderate to high dose every 4 hours. Lantus to 30 units nightly. Portal vein thrombosis: Patient is on chronic anticoagulation with Eliquis, continue hold Eliquis just in case she needs LP Patient's care discussed in detail with patient's . All the questions were answered. Full code. Full liquid diet SCDs for DVT prophylaxis Protonix IV. 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
[2020-05-22 15:28] LABS: HIV RNA (CPY/ML) <1.30 NOT DETECTED (NOT DETECTED); HIV RNA LOG <20 NOT DETECTED copies/mL (NOT DETECTED)
[2020-05-22 15:55] LABS: Glucose Point of Care 118 mg/dL (70-110)
[2020-05-22 20:27] LABS: Glucose Point of Care 388 mg/dL (70-110)
--- NOTE | 2020-05-22 20:33 | PC.NURSE ---
Patient's stated I am in pain, back hurts and pain level is 10 on the pain scale from 0 to 10. Patient positioned comfortably in bed on her right side. Patient's shift boss nurse was notified.
[2020-05-22] MEDS: pantoprazole 40 mg SDV IVP (20:36)
[2020-05-22] MEDS: insulin glargine 100 units/1 mL 30 UNIT SUBCUT (20:50)
[2020-05-22] MEDS: iron sucrose 200 MG in sodium chloride 0.9% (100 ml) 100 ML 220 MG IV (21:14)
[2020-05-23] VITALS (33 sets, daily range): BP systolic 118–189; BP diastolic 65–103; PULSE 80–102; RESP 10–22; TEMP 36.7–37.1; O2SAT 88–98
[2020-05-23 00:03] LABS: Glucose Point of Care 298 mg/dL (70-110)
[2020-05-23] MEDS: sodium chloride 0.9% 1,000 ML 75 ML IV (00:27)
[2020-05-23] MEDS: acyclovir 1,000 MG in sodium chloride 0.9% (100 ml) 100 ML 120 MG IV ×3 (04:07→18:24)
[2020-05-23 04:44] LABS: ABG PCO2 28.7 mmHg (35-45); ABG PH Result 7.45 (7.35-7.45); Arterial Blood Gas Hematocrit 33.4 % (37-47); Base Excess ABG -3.1 mmol/L (-2.0-2.0); Blood Gas Allen Test Pos; Blood Gas Sample Type Arterial; PO2 ABG 66.4 mmHg (80.0-100.0)
[2020-05-23 04:45] LABS: Blood Gas Operator Identificat HARKR; Blood Gas Sample Site Radial, right; Oxygen Device NC
--- NOTE | 2020-05-23 06:00 | XRR_ITS ---
PROCEDURE INFORMATION: Exam: XR Chest, 1 View Exam date and time: 05/23/2020 3:18 AM Age: 49 years old Clinical indication: Condition or disease; Other: Covid TECHNIQUE: Imaging protocol: XR of the chest Views: 1 view. COMPARISON: CR XR chest 1V portable [id number] 05/21/2020 4:10 AM FINDINGS: Lungs: Unremarkable. No consolidation. Pleural space: Unremarkable. No pleural effusion. No pneumothorax. Heart/Mediastinum: Unremarkable. No cardiomegaly. Bones/joints: Unremarkable. Soft tissues: There is little change in the appearance of the chest compared with 05/21/2020 with increased interstitial markings seen in the mid and lower hemithoraces bilaterally. XR/XR chest 1V portable [id number] IMPRESSION: Little change in the appearance of the chest compared with 05/21/2020 with bilateral interstitial infiltrates persisting .
--- NOTE | 2020-05-23 06:00 | ECG_ITS ---
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 Measurements Intervals [place] Rate: 98 P: 65 CA: 141 QRS: 66 QRSD: 77 T: 66 QT: 370 QTc: 474 Interpretive Statements SINUS RHYTHM POSSIBLE LEFT ATRIAL ENLARGEMENT [-0.1mV P WAVE IN V1/V2] MODERATE ST DEPRESSION [0.05+ mV ST DEPRESSION] Compared to ECG 05/22/2020 05:12:28 Sinus tachycardia no longer present ST (T wave) deviation still present Electronically Signed On 05-26-2020 22:05:28 PRENATAL NURSE by Galina Bradshaw M.D. [email or web address] [email or web address]/store/[id number]
[2020-05-23 06:10] LABS: Basophils % 0.1 %; Eosinophils % 0.1 %; Hematocrit 33.3 % (37.0-47.0); Hemoglobin 10.6 g/dL (11.5-15.3); Lymphocytes % 9.2 %; Mean Corpuscular HGB Conc 31.8 g/dL (30.0-36.0); Mean Corpuscular Hemoglobin 25.9 pg (28.0-34.0); Mean Corpuscular Volume 81.4 fL (81-99); Mean Platelet Volume 10.4 fL (7.4-10.4); Monocytes # 0.7 10^3/uL (0.2-0.9); Monocytes % 6.9 %; Neutrophils # 8.63 10^3/uL (1.8-7.7); Neutrophils % 82.9 %; Nucleated Red Blood Cells % 0 %; Platelet Count 196 10^3/cmm (130-400); Red Blood Count 4.09 10^6/uL (4.1-5.3); Red Cell Distribution Width 16.3 % (12.1-15.1); White Blood Count 10.4 10^3/uL (4.0-10.0)
[2020-05-23 06:17] LABS: Glucose Point of Care 228 mg/dL (70-110)
[2020-05-23] MEDS: oxyCODONE 5 mg IR Tab/Cap 15 MG PO ×2 (06:34→18:23)
[2020-05-23 06:37] LABS: INR 1.09 (0.8-1.2)
[2020-05-23 06:43] LABS: Fibrinogen 482 mg/dL (174-498)
[2020-05-23 06:46] LABS: D Dimer 1.37 ug/mIFEU (0-0.59)
[2020-05-23 06:58] LABS: Alanine Aminotransferase 20 U/L (0-33); Alkaline Phosphatase 199 IU/L (35-105); Aspartate Amino Transferase 21 U/L (0-32); Blood Urea Nitrogen 29 mg/dL (6-20); C Reactive Protein 89.5 mg/L (0.0-4.9); Calcium 8.7 mg/dL (8.5-10.5); Carbon Dioxide 19 mmol/L (22-29); Chloride 107 mmol/L (98-107); Globulin 2.8 g/dL (1.3-4.6); Glomerular Filtration Rate 36.6 mL/min (90-130); Glucose 205 mg/dL (65-115); Magnesium 1.9 mg/dL (1.7-2.3); Osmolality Calculated 296 mOsm/kg (285-295); Phosphorus 2.6 mg/dL (2.5-4.5); Sodium 137 mmol/L (136-145); Total Bilirubin 0.6 mg/dL (0.15-1.2); Total Protein 5.8 g/dL (6.6-8.7)
[2020-05-23 08:05] LABS: Glucose Point of Care 120 mg/dL (70-110)
[2020-05-23] MEDS: aspirin 81 mg EC Tablet PO (09:00)
[2020-05-23] MEDS: cilostazol 100 mg Tablet 50 MG PO ×2 (09:00→17:56)
[2020-05-23] MEDS: metoprolol tartrate 25 mg Tablet 12.5 MG PO (09:00)
[2020-05-23] MEDS: atorvastatin 40 mg Tablet 80 MG PO (09:00)
[2020-05-23] MEDS: gabapentin 300 mg Capsule PO ×2 (09:00→17:56)
[2020-05-23] MEDS: ascorbic acid 500 mg Tablet PO (09:01)
[2020-05-23] MEDS: zinc gluconate 50 mg Tablet PO (09:01)
[2020-05-23] MEDS: escitalopram 10 mg Tablet 20 MG PO (09:01)
[2020-05-23 09:50] LABS: NT Pro B Type Natriuretic Pept 1890 pg/mL (0-125); Procalcitonin 0.54 ng/mL (0-0.5)
[2020-05-23 10:00] LABS: Creatine Phosphokinase 226 U/L (26-192)
--- NOTE | 2020-05-23 11:07 | USR_ITS ---
PROCEDURE INFORMATION: Exam: US Retroperitoneal; Complete; Kidneys and Bladder Exam date and time: 05/23/2020 2:10 PM Age: 49 years old Clinical indication: Abnormal findings; Abnormal lab test; Abnormal kidney function lab tests; Additional info: [place] TECHNIQUE: Imaging protocol: Real-time ultrasound of the retroperitoneum with image documentation. Complete exam focused on the kidneys and bladder. COMPARISON: US Bladder wwo Post Void [id number] 03/30/2015 11:30 AM FINDINGS: Right kidney: The right kidney measures 12.8 x 4.9 x 4.9 cm. Left kidney: Left kidney measures 11.0 x 6.7 x 4.2 cm. Aorta: Aorta is not visualized secondary to overlying bowel gas. Urinary bladder: Unremarkable. Other findings: Technically difficult study secondary to a large amount of bowel gas. US/US renal BI* [id number] IMPRESSION: Unremarkable study.
[2020-05-23 11:26] LABS: Glucose Point of Care 110 mg/dL (70-110)
[2020-05-23] MEDS: dexamethasone 4 mg/mL INJ 6 MG IVP (12:17)
[2020-05-23 14:18] LABS: Potassium, Radom Urine 8 mmol/L; Urine Creatinine 19 mg/dL (28-217); Urine Random Chloride 95 mmol/L; Urine Random Sodium 101 mmol/L
[2020-05-23 14:23] LABS: Creatinine Urine, Random 19 mg/dL (28-217); Microalbumin Random Urine 7 ug/dL (0-20)
[2020-05-23 15:14] LABS: Eosinophil Urine No Eosinophils Seen; Urine Eosinophil Count 0 (0-0)
[2020-05-23 16:07] LABS: Microalbum Creatinine Ratio Ur 368 mg/dL (0-20); Urea Nitrogen,Urine Random 184 mg/dL
[2020-05-23] MEDS: cefepime 2,000 MG in sodium chloride 0.9% (plus) 50 ML 100 MG IV (16:09)
[2020-05-23 16:39] LABS: Glucose Point of Care 236 mg/dL (70-110)
--- NOTE | 2020-05-23 17:56 | P.PN_ITS ---
Subjective Subjective: Interval history: Patient was examined this morning, she sitting in bed, alert oriented x3, answering all questions appropriately, follows all commands, just complains of fatigue, joint pains, beyond that she has no particular complaints, overall doing well Vitals/I&O/Wt Last Vital Signs Temp 98.5 F 05/23/20 17:00 Pulse 98 05/23/20 17:40 Resp 15 05/23/20 17:40 BP 189/82 05/23/20 17:40 Pulse Ox 91 05/23/20 17:40 05/23/20 05/23/20 05/23/20 06:59 14:59 22:59 Intake Total 805 / 4135 780 / 780 600 / 1380 Output Total 850 / 6950 1700 / 1700 1500 / 3200 Balance -45 / -2815 -920 / -920 -900 / -1820 Weight last 48 hrs Weight 89.414 kg Weight 93.848 kg Physical Exam Const: COMMON NORMALS: no acute distress and patient oriented x3 HENMT: COMMON NORMALS: normocephalic HEAD & SCALP: normocephalic Neck/C-Spine: COMMON NORMALS: no JVD Resp: COMMON NORMALS: normal respiratory effort, No retractions, No use of accessory muscles and clear to auscultation bilaterally AUSCULTATION: clear to auscultation bilaterally Cardio: COMMON NORMALS: no JVD, regular rate, regular rhythm, S1 normal heart sound present and S2 normal heart sound present RATE: regular rate RHYTHM: regular rhythm HEART SOUNDS: S1 normal heart sound present and S2 normal heart sound present GI: COMMON NORMALS: Normal to inspection, nondistended, normoactive bowel sounds present, Soft to palpation, non-tender, No hepatosplenomegaly present, no masses and no bruits PALPATION: Yes Soft to palpation and Yes No hepatosplenomegaly present Extremity: COMMON NORMALS: capillary refill normal, no clubbing, cyanosis or edema, no calf tenderness and no pedal edema Neuro: COMMON NORMALS: patient oriented x3 Psych: COMMON NORMALS: mental status grossly normal OTHER: A bit more somnolent this morning, requires redirection Urinary Catheter Management^: Dent: Cath Placed During This Visit: yes Reason for Continuing Indwelling Catheter: Accurate Measurement of Urinary Output in Critically Ill Patients Urinary Catheter Date of Insertion: 05/18/20 Urinary Catheter Time of Insertion: 15:00 Data : 05/23/20 04:45 05/23/20 04:45 Micro: Microbiology 05/18/20 14:17 Blood Culture - Final Blood NO GROWTH AFTER 5 DAYS 05/18/20 17:30 Stool Lactoferrin - Final Stool Enteric Pathogens (PCR) - Final Parasite Antigen Panel - Final C.difficile Toxin B Gene (PCR) - Final Occult Blood (FIT) - Final 05/18/20 12:05 Blood Culture - Final Blood NO GROWTH AFTER 5 DAYS 05/18/20 00:01 Bacterial Antigens - Final Urine Kidney A&P Assessment and plan (1) Altered mental status: Status: Acute (2) Meningoencephalitis: Status: Acute (3) COVID-19: Status: Acute (4) Seizures: Status: Acute (5) Low back pain with sciatica: Status: Acute (6) PVD (peripheral vascular disease): Status: Acute (7) Essential hypertension: Status: Acute (8) Long-term current use of opiate analgesic: Status: Chronic (9) Diabetes: Status: Acute (10) Emphysema/COPD: Status: Inactive Qualifiers: Emphysema type: centrilobular Qualified Code(s): J43.2 - Centrilobular emphysema (11) Portal vein thrombosis: Status: Acute (12) Chronic anticoagulation: Status: Acute (13) Immunocompromised: Status: Acute Additional A&P Information Altered mental status: 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 Patient does not have any signs of sepsis. White blood cell count 10.4, no fever, hemodynamically stable, lactate normal. Patient is immunocompromised because of chronic steroids, Actemra. Given the symptoms and history really concerning for meningoencephalitis but unfortunately could not do the LP for 72 hours post last Eliquis which was taken on 05/17. Given her significant improvement in mentation, following all commands, after discussion with pulmonary team, decision was made to not pursue LP as at this point is a bit too late, unless her mentation worsens in the near future, can do it at that point, we will continue Eliquis for now Today doing well, answering all questions appropriately Continue cefepime and acyclovir Continue remdesivir Spoke to infectious disease, patient will require a PICC line, 2 weeks of cefepime, can switch acyclovir to Valtrex p.o. Patient's creatinine is elevating to 1.5, she did have over 7 L urine output yesterday I am worried about acyclovir induced nephrotoxicity, continue gentle IV hydration at 50 cc an hour, monitor creatinine, monitor urine output Stopped Keppra Stopped Precedex drip Haldol if required for agitation, 5 mg IM every 4 hours as needed Zofran for nausea Protonix for PUD prophylaxis MRI brain ordered, and pending COVID-19: No signs of pneumonia as patient is maintaining saturation on room air. High concerns for COVID-19 meningoencephalitis though cannot rule out other etiologies of meningoencephalitis. Flu swab, respiratory viral panel, HIV, QuantiFERON awaited. MRSA swab negative, blood cultures negative till now, bacterial antigen, urine Legionella antigen, cryptococcal antigen negative. HSV IgG/IgM PCR awaited. Continue antiviral treatment with remdesivir. Day 5/ today. Continue on dexamethasone 6 mg IV daily. MRSA negative. So vancomycin stopped. Continue with cefepime and acyclovir at renal dose for now. Resume Eliquis today Continue gentle IV hydration Vitamin C, zinc Pulmonary toilet incentive spirometry and flutter valve. Continue to monitor oxygen supplementation keeping saturation over 92%. Advair, Spiriva. Possible seizures: As per chart review patient did follow-up with Dr. Vann on April 14 and did an EEG though no results present in the system. As per the study was not completed as patient was not able to lie down straight. Unlikely to be seizures, stop Keppra Seizure precautions, fall precautions, neurochecks Start chronic medications including aspirin, statin, -Hold baclofen as needed, gabapentin at her goal lower dose of 300 mg twice daily, cilostazol, oxycodone IR 15 mg twice daily as needed. Chronic immunosuppression: Patient is chronically on steroids, Actemra. Continue with dexamethasone as above. Hypertension: Goal blood pressure less than 140/90 mmHg. Continue to monitor. Home dose of Lopressor. Last echocardiogram from February 2020 shows an EF of 55% grade 1 diastolic dysfunction, moderate TR, mild MR with RVSP of 41 mmHg. Normal Lexisc and March 2020. Type 2 diabetes mellitus: Was running higher. Start patient on full liquid carb consistent diet. Continue with insulin sliding scale at moderate to high dose every 4 hours. Lantus to 30 units nightly. Portal vein thrombosis: Patient is on chronic anticoagulation with Eliquis, continue hold Eliquis just in case she needs LP Patient's care discussed in detail with patient's . All the questions were answered. Full code. Full liquid diet SCDs for DVT prophylaxis Protonix IV. 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
--- NOTE | 2020-05-23 18:13 | PC.NURSE ---
This nurse observed patch on patients left upper arm. Patient unsure of what it is used for. It appears to be pod to monitor blood glucose levels. This nurse called and he verified this. This nurse removed patch. MD aware. Will continue to monitor.
[2020-05-23] MEDS: apixaban 5 mg Tablet PO (18:23)
[2020-05-23] MEDS: sodium chloride 0.9% 1,000 ML 50 ML IV (18:24)
[2020-05-23] MEDS: isosorbide dinitrate 20 mg Tablet 15 MG PO (18:36)
[2020-05-23] MEDS: metoprolol succinate ER (24 HR) 25 mg Tablet 12.5 MG PO (18:36)
[2020-05-23 20:18] LABS: Glucose Point of Care 390 mg/dL (70-110)
[2020-05-23] MEDS: pantoprazole 40 mg SDV IVP (20:18)
[2020-05-23] MEDS: insulin glargine 100 units/1 mL 30 UNIT SUBCUT (20:19)
--- NOTE | 2020-05-23 21:27 | PC.NURSE ---
Report called to Jennifer, patient transferred to room 270. Plan of care discussed. No other concerns noted at this time. Belongings provided and sent with patient.
[2020-05-24] VITALS (15 sets, daily range): BP systolic 140–158; BP diastolic 72–82; PULSE 71–93; RESP 14–20; TEMP 36.8–37.1; O2SAT 93–97
[2020-05-24] MEDS: ropinirole 2 mg Tablet PO ×2 (00:43→22:15)
[2020-05-24] MEDS: trazodone 50 mg Tablet PO ×2 (00:44→22:15)
[2020-05-24] MEDS: cefepime 2,000 MG in sodium chloride 0.9% (plus) 50 ML 100 MG IV ×4 (00:46→23:36)
[2020-05-24] MEDS: oxyCODONE 5 mg IR Tab/Cap 15 MG PO ×2 (03:08→17:41)
[2020-05-24] MEDS: acyclovir 1,000 MG in sodium chloride 0.9% (100 ml) 100 ML 120 MG IV ×2 (03:08→13:15)
[2020-05-24 06:16] LABS: Glucose Point of Care 122 mg/dL (70-110)
[2020-05-24] MEDS: apixaban 5 mg Tablet PO ×2 (06:24→17:43)
[2020-05-24] MEDS: aspirin 81 mg EC Tablet PO (08:49)
[2020-05-24] MEDS: escitalopram 10 mg Tablet 20 MG PO (08:50)
[2020-05-24] MEDS: gabapentin 300 mg Capsule PO ×2 (08:50→17:43)
[2020-05-24] MEDS: zinc gluconate 50 mg Tablet PO (08:50)
[2020-05-24] MEDS: isosorbide dinitrate 20 mg Tablet 15 MG PO ×2 (08:50→17:42)
[2020-05-24] MEDS: ascorbic acid 500 mg Tablet PO (08:50)
[2020-05-24] MEDS: metoprolol succinate ER (24 HR) 25 mg Tablet 12.5 MG PO (08:50)
[2020-05-24] MEDS: cilostazol 100 mg Tablet 50 MG PO ×2 (08:51→17:42)
[2020-05-24] MEDS: atorvastatin 40 mg Tablet 80 MG PO (08:52)
[2020-05-24] MEDS: albuterol 8 gm MDI 2 PUFF INHALATION (08:55)
[2020-05-24] MEDS: morphine 4 mg/mL SDV 1 mL 1 MG IVP ×3 (10:03→23:35)
[2020-05-24 10:50] LABS: Glucose Point of Care 315 mg/dL (70-110)
[2020-05-24] MEDS: dexamethasone 4 mg/mL INJ 6 MG IVP (12:18)
--- NOTE | 2020-05-24 14:14 | P.PN_ITS ---
Subjective Subjective: Interval history: This morning patient was examined, she is actually sitting up in bed, enjoying breakfast, her is on face time, I answered all her and her 's questions, she is feeling well this morning, wondering when she is going home Vitals/I&O/Wt Last Vital Signs Temp 98.8 F 05/24/20 12:00 Pulse 93 05/24/20 12:00 Resp 20 H 05/24/20 12:00 BP 158/76 05/24/20 12:00 Pulse Ox 94 05/24/20 11:31 05/23/20 05/24/20 05/24/20 22:59 06:59 14:59 Intake Total 1770 / 2670 50 / 2720 480 / 480 Output Total 2300 / 4000 1800 / 5800 Balance -530 / -1330 -1750 / -3080 480 / 480 Weight last 48 hrs Weight 86.999 kg Weight 89.414 kg Physical Exam Const: COMMON NORMALS: no acute distress and patient oriented x3 HENMT: COMMON NORMALS: normocephalic HEAD & SCALP: normocephalic Neck/C-Spine: COMMON NORMALS: no JVD Resp: COMMON NORMALS: normal respiratory effort, No retractions, No use of accessory muscles and clear to auscultation bilaterally AUSCULTATION: clear to auscultation bilaterally Cardio: COMMON NORMALS: no JVD, regular rate, regular rhythm, S1 normal heart sound present and S2 normal heart sound present RATE: regular rate RHYTHM: regular rhythm HEART SOUNDS: S1 normal heart sound present and S2 normal heart sound present GI: COMMON NORMALS: Normal to inspection, nondistended, normoactive bowel sounds present, Soft to palpation, non-tender, No hepatosplenomegaly present, no masses and no bruits PALPATION: Yes Soft to palpation and Yes No hepatosplenomegaly present Extremity: COMMON NORMALS: capillary refill normal, no clubbing, cyanosis or edema, no calf tenderness and no pedal edema Neuro: COMMON NORMALS: patient oriented x3 Psych: COMMON NORMALS: mental status grossly normal Urinary Catheter Management^: Dent: Cath Placed During This Visit: yes, but has since been removed by the nurse Reason for Continuing Indwelling Catheter: Decision to DC Catheter Urinary Catheter Date of Insertion: 05/18/20 Urinary Catheter Time of Insertion: 15:00 Date Urinary Catheter Removed: 05/24/20 Time Urinary Catheter Discontinued: 10:00 Data : 05/23/20 04:45 05/23/20 04:45 Micro: Microbiology 05/18/20 14:17 Blood Culture - Final Blood NO GROWTH AFTER 5 DAYS 05/18/20 17:30 Stool Lactoferrin - Final Stool Enteric Pathogens (PCR) - Final Parasite Antigen Panel - Final C.difficile Toxin B Gene (PCR) - Final Occult Blood (FIT) - Final 05/18/20 12:05 Blood Culture - Final Blood NO GROWTH AFTER 5 DAYS A&P Assessment and plan (1) Altered mental status: Status: Acute (2) Meningoencephalitis: Status: Acute (3) COVID-19: Status: Acute (4) Seizures: Status: Acute (5) Low back pain with sciatica: Status: Acute (6) PVD (peripheral vascular disease): Status: Acute (7) Essential hypertension: Status: Acute (8) Long-term current use of opiate analgesic: Status: Chronic (9) Diabetes: Status: Acute (10) Emphysema/COPD: Status: Inactive Qualifiers: Emphysema type: centrilobular Qualified Code(s): J43.2 - Centrilobular emphysema (11) Portal vein thrombosis: Status: Acute (12) Chronic anticoagulation: Status: Acute (13) Immunocompromised: Status: Acute Additional A&P Information Altered mental status: 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 Patient does not have any signs of sepsis. White blood cell count pending, no fever, hemodynamically stable, lactate normal. Patient is immunocompromised because of chronic steroids, Actemra. Given the symptoms and history really concerning for meningoencephalitis but unfortunately could not do the LP for 72 hours post last Eliquis which was taken on 05/17. Given her significant improvement in mentation, following all commands, after discussion with pulmonary team, decision was made to not pursue LP as at this point is a bit too late, unless her mentation worsens in the near future, can do it at that point, we will continue Eliquis for now Today doing well, answering all questions appropriately Continue cefepime and acyclovir Continue remdesivir Spoke to infectious disease, patient will require a PICC line, 2 weeks of cefepime, can switch acyclovir to Valtrex p.o. Patient's morning labs are pending at 2 PM, she did have over 5800 L urine output yesterday I am worried about acyclovir induced nephrotoxicity, continue gentle IV hydration at 50 cc an hour, monitor creatinine, monitor urine output Stopped Keppra Stopped Precedex drip Haldol if required for agitation, 5 mg IM every 4 hours as needed Zofran for nausea Protonix for PUD prophylaxis COVID-19: No signs of pneumonia as patient is maintaining saturation on room air. High concerns for COVID-19 meningoencephalitis though cannot rule out other etiologies of meningoencephalitis. Flu swab, respiratory viral panel, HIV, QuantiFERON awaited. MRSA swab negative, blood cultures negative till now, bacterial antigen, urine Legionella antigen, cryptococcal antigen negative. HSV IgG/IgM PCR awaited. Continue antiviral treatment with remdesivir. Day 11/11 today. Continue on dexamethasone 6 mg IV daily. MRSA negative. So vancomycin stopped. Continue with cefepime and acyclovir at renal dose for now. On Eliquis, morning hemoglobin pending at 2 PM Continue gentle IV hydration Vitamin C, zinc Pulmonary toilet incentive spirometry and flutter valve. Continue to monitor oxygen supplementation keeping saturation over 92%. Advair, Spiriva. Possible seizures: As per chart review patient did follow-up with Dr. Vann on April 14 and did an EEG though no results present in the system. As per the study was not completed as patient was not able to lie down straight. Unlikely to be seizures, stop Keppra Seizure precautions, fall precautions, neurochecks Start chronic medications including aspirin, statin, -Hold baclofen as needed, -Continue gabapentin at her goal lower dose of 300 mg twice daily, cilostazol, oxycodone IR 15 mg twice daily as needed. Chronic immunosuppression: Patient is chronically on steroids, Actemra. Continue with dexamethasone as above. Hypertension: Goal blood pressure less than 140/90 mmHg. Continue to monitor. Home dose of Lopressor. Last echocardiogram from February 2020 shows an EF of 55% grade 1 diastolic dysfunction, moderate TR, mild MR with RVSP of 41 mmHg. Normal Lexisc and March 2020. Type 2 diabetes mellitus: Was running higher. Start patient on full liquid carb consistent diet. Continue with insulin sliding scale at moderate to high dose every 4 hours. Lantus to 30 units nightly. Portal vein thrombosis: Patient is on chronic anticoagulation with Eliquis, Eliquis has been resumed Patient's care discussed in detail with patient's . All the questions were answered. Full code. Full liquid diet SCDs for DVT prophylaxis Protonix IV. 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
[2020-05-24 14:19] LABS: Basophils % 0.2 %; Eosinophils # 0.1 10^3/uL (0.0-0.8); Eosinophils % 0.4 %; Hematocrit 35.3 % (37.0-47.0); Lymphocytes # 0.9 10^3/uL (0.8-4.8); Lymphocytes % 7.7 %; Mean Corpuscular HGB Conc 31.2 g/dL (30.0-36.0); Mean Corpuscular Hemoglobin 25.5 pg (28.0-34.0); Mean Corpuscular Volume 81.9 fL (81-99); Mean Platelet Volume 10.3 fL (7.4-10.4); Monocytes # 0.5 10^3/uL (0.2-0.9); Neutrophils % 87.2 %; Nucleated Red Blood Cells % 0.2 %; Platelet Count 185 10^3/cmm (130-400); Red Blood Count 4.31 10^6/uL (4.1-5.3); Red Cell Distribution Width 16.5 % (12.1-15.1); White Blood Count 11.8 10^3/uL (4.0-10.0)
[2020-05-24 14:39] LABS: Alanine Aminotransferase 17 U/L (0-33); Albumin Level 3.1 g/dL (3.5-5.2); Alkaline Phosphatase 179 IU/L (35-105); Anion Gap 15.7 (5-19); Aspartate Amino Transferase 16 U/L (0-32); Blood Urea Nitrogen 25 mg/dL (6-20); C Reactive Protein 48.6 mg/L (0.0-4.9); Calcium 8.6 mg/dL (8.5-10.5); Carbon Dioxide 20 mmol/L (22-29); Chloride 101 mmol/L (98-107); Globulin 2.9 g/dL (1.3-4.6); Glomerular Filtration Rate 43.2 mL/min (90-130); Glucose 367 mg/dL (65-115); Magnesium 1.6 mg/dL (1.7-2.3); Osmolality Calculated 295 mOsm/kg (285-295); Phosphorus 1.7 mg/dL (2.5-4.5); Potassium 3.7 mmol/L (3.5-5.1); Sodium 133 mmol/L (136-145); Total Bilirubin 0.8 mg/dL (0.15-1.2)
[2020-05-24 14:41] LABS: INR 1.13 (0.8-1.2)
[2020-05-24 14:53] LABS: Fibrinogen 535 mg/dL (174-498)
[2020-05-24 14:56] LABS: D Dimer 1.09 ug/mIFEU (0-0.59)
[2020-05-24 16:53] LABS: NT Pro B Type Natriuretic Pept 728 pg/mL (0-125); Procalcitonin 0.22 ng/mL (0-0.5)
[2020-05-24 17:04] LABS: Creatine Phosphokinase 119 U/L (26-192)
[2020-05-24 17:38] LABS: Glucose Point of Care 467 mg/dL (70-110)
[2020-05-24] MEDS: metoprolol tartrate 50 mg Tablet 12.5 MG PO (17:42)
[2020-05-24] MEDS: valACYclovir 1,000 mg Tablet 1000 MG PO (17:42)
[2020-05-24] MEDS: phosphorus 250 mg Tablet 500 MG PO (18:34)
--- NOTE | 2020-05-24 19:12 | PC.NURSE ---
Patient will be getting a PICC line tomorrow and then possibly going home. Patient is A&Ox3. Respirations even and non-labored on room air.
--- NOTE | 2020-05-24 19:13 | PC.NURSE ---
Report to Jennifer BEAVERS
[2020-05-24 19:18] LABS: Lactic Sepsis W/Reflex 1.7 mmol/L (0.5-2.2)
[2020-05-24 21:19] LABS: Glucose Point of Care 375 mg/dL (70-110)
[2020-05-24] MEDS: insulin glargine 100 units/1 mL 30 UNIT SUBCUT (22:15)
[2020-05-24] MEDS: sodium chloride 0.9% 1,000 ML 50 ML IV (23:36)
[2020-05-25] VITALS (7 sets, daily range): BP systolic 152–169; BP diastolic 77–96; PULSE 74–84; RESP 17–20; TEMP 36.8–36.9; O2SAT 91–97
[2020-05-25] MEDS: valACYclovir 1,000 mg Tablet 1000 MG PO ×2 (01:58→10:40)
[2020-05-25 04:30] LABS: Basophils % 0.1 %; Eosinophils % 0.1 %; Hematocrit 34.3 % (37.0-47.0); Lymphocytes # 1.8 10^3/uL (0.8-4.8); Lymphocytes % 13.1 %; Mean Corpuscular HGB Conc 32.1 g/dL (30.0-36.0); Mean Corpuscular Hemoglobin 26.3 pg (28.0-34.0); Mean Corpuscular Volume 82.1 fL (81-99); Mean Platelet Volume 10.2 fL (7.4-10.4); Monocytes % 7.3 %; Neutrophils # 10.61 10^3/uL (1.8-7.7); Neutrophils % 78.7 %; Nucleated Red Blood Cells % 0.2 %; Platelet Count 207 10^3/cmm (130-400); Red Blood Count 4.18 10^6/uL (4.1-5.3); Red Cell Distribution Width 16.5 % (12.1-15.1); White Blood Count 13.5 10^3/uL (4.0-10.0)
[2020-05-25 06:52] LABS: Glucose Point of Care 221 mg/dL (70-110)
[2020-05-25] MEDS: cilostazol 100 mg Tablet 50 MG PO (08:30)
[2020-05-25] MEDS: ascorbic acid 500 mg Tablet PO (08:32)
[2020-05-25] MEDS: oxyCODONE 5 mg IR Tab/Cap 15 MG PO (08:33)
[2020-05-25] MEDS: isosorbide dinitrate 20 mg Tablet 15 MG PO (08:33)
[2020-05-25] MEDS: zinc gluconate 50 mg Tablet PO (08:33)
[2020-05-25] MEDS: escitalopram 10 mg Tablet 20 MG PO (08:34)
[2020-05-25] MEDS: metoprolol tartrate 50 mg Tablet 12.5 MG PO (08:34)
[2020-05-25] MEDS: atorvastatin 40 mg Tablet 80 MG PO (08:34)
[2020-05-25] MEDS: gabapentin 300 mg Capsule PO (08:35)
[2020-05-25] MEDS: aspirin 81 mg EC Tablet PO (08:35)
[2020-05-25] MEDS: cefepime 2,000 MG in sodium chloride 0.9% (plus) 50 ML 100 MG IV ×2 (08:35→15:05)
[2020-05-25 09:36] LABS: Adenovirus Not Detected (Not Detected); Human Metapneumovirus Not Detected (Not Detected); Human Parainflu Virus 1 Not Detected (Not Detected); Human Parainflu Virus 2 Not Detected (Not Detected); Human Parainflu Virus 3 Not Detected (Not Detected); Human Rsv A Not Detected (Not Detected); Influenza A Not Detected (Not Detected); Influenza B Not Detected (Not Detected); Rhinovirus/Enterovirus Not Detected (Not Detected)
--- NOTE | 2020-05-25 09:48 | XR_ITS ---
WS: [id number] Exam: XR chest 1V portable [id number] Date/Time of Exam: 05/25/2020 9:48 AM Reason For Exam: picc placement Comparison 05/23/2020. A right-sided PICC line has been placed and ends at the cavoatrial junction in good position. There a re chronic interstitial changes throughout both lungs. The lungs are fully inflated. Normal cardiomed iastinal structures and bony elements. No pleural effusions. XR/XR chest 1V portable [id number] IMPRESSION: 1. Right-sided PICC line in satisfactory position. 2. Chronic interstitial changes.
[2020-05-25 10:55] LABS: Glucose Point of Care 332 mg/dL (70-110)
[2020-05-25] MEDS: dexamethasone 4 mg/mL INJ 6 MG IVP (11:27)
--- NOTE | 2020-05-25 11:39 | P.DS_ITS ---
Discharge Providers Date of Admission: 05/18/20 16:02 Date of Discharge: May 25, 2020 Attending Provider at Admission: Irving Alva MD Attending Provider at Discharge: Jaydon Lane MD Primary Care Provider: Nel Peacock MD Diagnoses at Discharge Discharge Diagnosis (1) Altered mental status: Status: Acute (2) Meningoencephalitis: Status: Acute (3) COVID-19: Status: Acute (4) Seizures: Status: Acute (5) Low back pain with sciatica: Status: Acute (6) PVD (peripheral vascular disease): Status: Acute (7) Essential hypertension: Status: Acute (8) Long-term current use of opiate analgesic: Status: Chronic (9) Diabetes: Status: Acute (10) Emphysema/COPD: Status: Inactive Qualifiers: Emphysema type: centrilobular Qualified Code(s): J43.2 - Centrilobular emphysema (11) Portal vein thrombosis: Status: Acute (12) Chronic anticoagulation: Status: Acute (13) Immunocompromised: Status: Acute Reason for Visit Reason for Visit: WEAKNESS/ BACK PAIN Hospital Course Hospital Course This is a 49-year-old female with a past medical history of rheumatoid arthritis, on chronic steroids, hydroxychloroquine, Cosentyx dyslipidemia, type 2 diabetes mellitus, portal vein thrombosis, chronic anticoagulation with Eliquis, who presents to [facility] due to concerns for increased confusion Patient was admitted to [facility] for altered mental status secondary to meningeoencephalitis and COVID-19, with concerns for chronic immunocompromised state given medications as above, she was admitted to the viral ICU, started on broad-spectrum antibiotics, acyclovir, Decadron, remdesivir. Unfortunately we were unable to obtain a lumbar puncture given her chronic anticoagulation with Eliquis. Since her mentation significantly improved back to baseline after 3 days of treatment, decision was not to pursue an LP. Patient's regimen was deescalated to acyclovir and cefepime, she finished her remdesivir course, her mentation remained at baseline. 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 As it was too late to obtain an LP, decision was made to optimally treat her with a total of 2 weeks cefepime,and 2 weeks of antivirals. Of note patient finished 7 days of acyclovir as inpatient, creatinine on discharge 1.3. After discussion with infectious disease, she will be discharged on cefepime 2 g every 12 hours IV for the next 9 days, Valtrex 1 g every 8 hours p.o. for the next 9 days, PICC line was placed, repeat CBC and CMP in 1 week, Dr. Saucedo will follow her antibiotics. Patient was advised to follow- up with infectious disease in 2 to 3 weeks, follow-up with Dr. Saucedo in 2 to 3 weeks, continue to hold all rheumatoid arthritis medications until seen by rheumatology. For her COVID-19, she should continue to self isolate for at least 3 weeks, facemask, handwashing, social distancing. Physical Exam Const: COMMON NORMALS: no acute distress and patient oriented x3 GENERAL APPEARANCE: cooperative and comfortable HENMT: COMMON NORMALS: normocephalic HEAD & SCALP: normocephalic Eye: COMMON NORMALS: Equal, round and reactive pupils present and EOMs intact bilaterally GENERAL EYE: appearance normal, both eyes and all related structures PUPIL: Yes Equal, round and reactive pupils present Neck/C-Spine: COMMON NORMALS: full ROM, no lymphadenopathy, no JVD and Thyroid normal THYROID: Thyroid normal Lymph: LYMPHATIC: no lymphadenopathy noted Resp: COMMON NORMALS: normal respiratory effort, No retractions, No use of accessory muscles and clear to auscultation bilaterally AUSCULTATION: clear to auscultation bilaterally Cardio: COMMON NORMALS: no JVD, regular rate, regular rhythm, S1 normal heart sound present, S2 normal heart sound present, No gallops present (Cardio), No clicks present (Cardio) and No murmurs present (Cardio) RATE: regular rate RHYTHM: regular rhythm HEART SOUNDS: S1 normal heart sound present and S2 normal heart sound present GI: COMMON NORMALS: Normal to inspection, nondistended, normoactive bowel sounds present, Soft to palpation, non-tender and No hepatosplenomegaly present PALPATION: Yes Soft to palpation and Yes No hepatosplenomegaly present Extremity: COMMON NORMALS: normal to inspection, full ROM and no pedal edema Neuro: COMMON NORMALS: patient oriented x3, CN's II-XII intact bilaterally, moves all extremities and no focal motor deficits Psych: COMMON NORMALS: mental status grossly normal, Normal thought process present and cooperative THOUGHT PROCESS: Normal thought process present Urinary Catheter Management^: Dent: Cath Placed During This Visit: yes, but has since been removed by the nurse Reason for Continuing Indwelling Catheter: Decision to DC Catheter Urinary Catheter Date of Insertion: 05/18/20 Urinary Catheter Time of Insertion: 15:00 Date Urinary Catheter Removed: 05/24/20 Time Urinary Catheter Discontinued: 08:00 Discharge Data Data Completed and Pending: Completed Studies During Hospitalization Category Date Time Status CT abdomen pelvis w con* [id number] Urge nt Cat Scan 05/18/[address] head wo con* [id number] Stat Cat Scan 05/18/20 09:29 Completed XR chest 1V marciano ble [id number] Q48H Exams 05/19/20 06:00 Completed XR chest 1V marciano ble [id number] Q48H Exams 05/21/20 06:00 Completed XR chest 1V marciano ble [id number] Q48H Exams 05/23/20 06:00 Completed XR chest 1V marciano ble [id number] Stat Exams 05/18/20 09:29 Completed XR chest 1V marciano ble [id number] Stat Exams 05/25/20 09:48 Completed US renal BI* [id number] Routine Ultrasound 05/23/20 11:07 Completed Pending at discharge Category Date Time Status CXRP [XR chest 1V portable [id number]] R outine Exams 05/25/20 09:20 Ordered Complete Blood Co unt w/Auto AM LABS Lab 05/26/20 04:00 Ordered Complete Blood Co unt w/Auto AM LABS Lab 05/27/20 04:00 Ordered Osmolality Urine Stat Lab 05/23/20 12:11 Received [id number] Plus Routine Lab 05/22/20 14:40 Received Labs from last 24 hours 05/25/20 05/25/20 05/25/20 10:36 06:43 03:28 WBC 13.5 H RBC 4.18 Hgb 11.0 L Hct 34.3 L MCV 82.1 MCH 26.3 L MCHC 32.1 RDW 16.5 H Plt Count 207 MPV 10.2 Neut % (Auto) 78.7 Lymph % (Auto) 13.1 Gregory % (Auto) 7.3 Eos % (Auto) 0.1 Baso % (Auto) 0.1 Neut # (Auto) 10.61 H Lymph # (Auto) 1.8 Gregory # (Auto) 1.0 H Eos # (Auto) 0.0 Baso # (Auto) 0.0 Nucleated RBC % (a uto) 0.2 Nucleated RBCs # 0.0 PT INR Fibrinogen D-Dimer Sodium Potassium Chloride Carbon Dioxide Anion Gap BUN Creatinine GFR Calculation Glucose POC Glucose 332 221 Calculated Osmolal ity Lactic Acid Calcium Phosphorus Magnesium Total Bilirubin AST ALT Alkaline Phosphata se Creatine Kinase C-Reactive Protein NT-Pro-B Natriuret Pep Total Protein Albumin Globulin Procalcitonin RSV Nasal Swab RSV Nasal Swab Int Cntl Adenovirus (PCR) Human Metapneumovi r PCR Influenza A (RT-PC R) Influenza A (H1) P CR Influenza A (H3) P CR Influenza B (RT-PC R) Parainfluenzae Typ e 1 Parainfluenzae Typ e 2 Parainfluenzae Typ e 3 RSV Ab Comment Rhinovirus (PCR) Misc Test Referenc e 05/24/20 05/24/20 05/24/20 21:14 18:45 17:34 WBC RBC Hgb Hct MCV MCH MCHC RDW Plt Count MPV Neut % (Auto) Lymph % (Auto) Gregory % (Auto) Eos % (Auto) Baso % (Auto) Neut # (Auto) Lymph # (Auto) Gregory # (Auto) Eos # (Auto) Baso # (Auto) Nucleated RBC % (a uto) Nucleated RBCs # PT INR Fibrinogen D-Dimer Sodium Potassium Chloride Carbon Dioxide Anion Gap BUN Creatinine GFR Calculation Glucose POC Glucose 375 467 Calculated Osmolal ity Lactic Acid 1.7 Calcium Phosphorus Magnesium Total Bilirubin AST ALT Alkaline Phosphata se Creatine Kinase C-Reactive Protein NT-Pro-B Natriuret Pep Total Protein Albumin Globulin Procalcitonin RSV Nasal Swab RSV Nasal Swab Int Cntl Adenovirus (PCR) Human Metapneumovi r PCR Influenza A (RT-PC R) Influenza A (H1) P CR Influenza A (H3) P CR Influenza B (RT-PC R) Parainfluenzae Typ e 1 Parainfluenzae Typ e 2 Parainfluenzae Typ e 3 RSV Ab Comment Rhinovirus (PCR) Misc Test Referenc e 05/24/20 05/24/20 05/24/20 14:00 14:00 14:00 WBC RBC Hgb Hct MCV MCH MCHC RDW Plt Count MPV Neut % (Auto) Lymph % (Auto) Gregory % (Auto) Eos % (Auto) Baso % (Auto) Neut # (Auto) Lymph # (Auto) Gregory # (Auto) Eos # (Auto) Baso # (Auto) Nucleated RBC % (a uto) Nucleated RBCs # PT 14.90 INR 1.13 Fibrinogen 535 H D-Dimer 1.09 H Sodium 133 L Potassium 3.7 Chloride 101 Carbon Dioxide 20 L Anion Gap 15.7 BUN 25 H Creatinine 1.3 H GFR Calculation 43.2 L Glucose 367 H POC Glucose Calculated Osmolal ity 295 Lactic Acid Calcium 8.6 Phosphorus 1.7 L Magnesium 1.6 L Total Bilirubin 0.8 AST 16 ALT 17 Alkaline Phosphata se 179 H Creatine Kinase 119 C-Reactive Protein 48.6 H NT-Pro-B Natriuret Pep 728 H Total Protein 6.0 L Albumin 3.1 L Globulin 2.9 Procalcitonin 0.22 RSV Nasal Swab RSV Nasal Swab Int Cntl Adenovirus (PCR) Human Metapneumovi r PCR Influenza A (RT-PC R) Influenza A (H1) P CR Influenza A (H3) P CR Influenza B (RT-PC R) Parainfluenzae Typ e 1 Parainfluenzae Typ e 2 Parainfluenzae Typ e 3 RSV Ab Comment Rhinovirus (PCR) Misc Test Referenc e 05/24/20 05/20/20 05/18/20 14:00 22:20 00:00 WBC 11.8 H RBC 4.31 Hgb 11.0 L Hct 35.3 L MCV 81.9 MCH 25.5 L MCHC 31.2 RDW 16.5 H Plt Count 185 MPV 10.3 Neut % (Auto) 87.2 Lymph % (Auto) 7.7 Gregory % (Auto) 4.0 Eos % (Auto) 0.4 Baso % (Auto) 0.2 Neut # (Auto) 10.30 H Lymph # (Auto) 0.9 Gregory # (Auto) 0.5 Eos # (Auto) 0.1 Baso # (Auto) 0.0 Nucleated RBC % (a uto) 0.2 Nucleated RBCs # 0.0 PT INR Fibrinogen D-Dimer Sodium Potassium Chloride Carbon Dioxide Anion Gap BUN Creatinine GFR Calculation Glucose POC Glucose Calculated Osmolal ity Lactic Acid Calcium Phosphorus Magnesium Total Bilirubin AST ALT Alkaline Phosphata se Creatine Kinase C-Reactive Protein NT-Pro-B Natriuret Pep Total Protein Albumin Globulin Procalcitonin RSV Nasal Swab Not detected RSV Nasal Swab Int Cntl Not detected Adenovirus (PCR) Not detected Human Metapneumovi r PCR Not detected Influenza A (RT-PC R) Not detected Influenza A (H1) P CR Not detected Influenza A (H3) P CR Not detected Influenza B (RT-PC R) Not detected Parainfluenzae Typ e 1 Not detected Parainfluenzae Typ e 2 Not detected Parainfluenzae Typ e 3 Not detected RSV Ab Comment see note Rhinovirus (PCR) Not detected Misc Test Referenc e See comment Vitals: Last Vital Signs Temp 98.5 F 05/25/20 08:00 Pulse 84 05/25/20 08:38 Resp 18 05/25/20 08:38 BP 169/96 05/25/20 08:00 Pulse Ox 91 05/25/20 08:38 Discharge Plan Discharge Patient Disposition: Home Condition: Stable Prescriptions: New valacyclovir 1 gram Tablet 1,000 mg PO Q8H 9 Days Qty: 27 RF: 0 Vitamin C 500 mg Tablet 500 mg PO DAILY 30 Days Qty: 30 RF: 0 zinc gluconate 50 mg Tablet 50 mg PO DAILY 30 Days Qty: 30 RF: 0 Ventolin HFA 90 mcg/actuation Hfa Aerosol Inhaler 2 puff inhalation Q4H.RESPIRATORY PRN (Reason: Shortness Of Breath) Qty: 18 RF: 0 metoprolol tartrate 25 mg Tablet 12.5 mg PO BID 30 Days Qty: 30 RF: 0 cefepime 2 gram recon soln 2 g IV Q12H 9 Days Qty: 18 RF: 0 Continued escitalopram oxalate [Lexapro] 20 mg tablet 20 mg PO DAILY RF: 0 omeprazole 40 mg capsule,delayed release(DR/EC) 40 mg PO DAILY RF: 0 tramadol 50 mg tablet 50 mg PO TID PRN (Reason: pain) Qty: 90 RF: 0 trazodone 50 mg tablet 50 mg PO BEDTIME RF: 0 silver sulfadiazine [Silvadene] 1 % cream 1 applic TOPICAL BID Qty: 50 RF: 0 rosuvastatin [Crestor] 20 mg tablet 20 mg PO DAILY RF: 0 Eliquis 5 mg tablet 5 mg PO BID RF: 0 ropinirole 2 mg tablet 2 mg PO BEDTIME RF: 0 Lantus U-100 Insulin 100 unit/mL solution 50 unit SUBCUT BEDTIME RF: 0 clobetasol 0.05 % cream 1 applic TOPICAL BID PRN (Reason: Skin Irritation) RF: 0 gabapentin 300 mg capsule See Rx Instructions .ROUTE .COMPLEX RF: 0 ondansetron HCl [Zofran] 4 mg tablet 4 mg PO Q8H PRN (Reason: Nausea) RF: 0 duloxetine [Cymbalta] 30 mg capsule,delayed release(DR/EC) 30 mg PO DAILY 30 Days Qty: 30 RF: 5 oxycodone 15 mg tablet 15 mg PO BID PRN (Reason: pain) 30 Days Qty: 60 RF: 0 Bevespi Aerosphere 9-4.8 mcg HFA aerosol inhaler 2 puff INHALATION BID Qty: 10.7 RF: 3 nicotine 21 mg/24 hr patch 24 hour 1 patch TRANSDERMA DAILY Qty: 14 RF: 2 nitroglycerin [Nitrostat] 0.4 mg tablet, sublingual 0.4 mg SUBLINGUAL Q5M PRN (Reason: chest pain) 30 Days Qty: 25 RF: 6 isosorbide dinitrate 30 mg tablet 15 mg PO BID 90 Days Qty: 90 RF: 3 cilostazol 50 mg tablet 50 mg PO BID Qty: 60 RF: 1 aspirin [Aspir-81] 81 mg Tablet,Delayed Release (Dr/Ec) 81 mg PO DAILY RF: 0 epinephrine [EpiPen 2-Carrington] 0.3 mg/0.3 mL Auto-Injector See Rx Instructions .ROUTE .COMPLEX PRN (Reason: Allergic Reaction) RF: 0 insulin aspart U-100 [Novolog Flexpen U-100 Insulin] 100 unit/mL (3 mL) insulin pen See Rx Instructions .ROUTE .COMPLEX RF: 0 Glucagon (HCl) Emergency Kit 1 mg Recon Soln 1 mg SUBCUT Q20M PRN (Reason: blood sugar) Qty: 0 RF: 0 baclofen 10 mg Tablet 20 mg PO QID PRN (Reason: Pain) RF: 0 albuterol sulfate 2.5 mg /3 mL (0.083 %) Solution For Nebulization 2.5 mg INHALATION Q6H PRN (Reason: Shortness Of Breath) RF: 0 docusate sodium [DOK] 100 mg Capsule 200 mg PO DAILY PRN (Reason: Constipation) RF: 0 Chantix 1 mg Tablet 1 mg PO . DIRECTED RF: 0 Combivent Respimat 20-100 mcg/actuation mist 1 puff INHALATION Q6H PRN (Reason: Shortness Of Breath) RF: 0 Held prednisone 5 mg tablet 7.5 mg PO DAILY RF: 0 Hold Instructions: Resume on 06/15/20. Until seen by rheumatology hydroxychloroquine 200 mg tablet 200 mg PO BID Qty: 60 RF: 1 Hold Instructions: Resume on 06/15/20. HOLD UNTIL SEEN BY RHEUMATOLOGY Cosentyx Pen 150 mg/mL pen injector 150 mg SUBCUT Q30D RF: 0 Hold Instructions: Resume on 05/25/20. Until seen by rheumatology until seen by rheumatology Discontinued cefadroxil 1 gram tablet 1,000 mg PO DAILY 10 Days Qty: 10 RF: 0 ibuprofen 800 mg tablet 800 mg PO BID PRN (Reason: Pain) RF: 0 enalapril maleate 20 mg tablet 20 mg PO DAILY RF: 0 metoprolol succinate 25 mg tablet extended release 24 hr 12.5 mg PO DAILY RF: 0 Discharge Orders: Discharge Order (Routine); Ordered 05/25/20 Ordered By: Jaydon Lane Other Ambulatory Orders: Complete Blood Count w/Auto (Routine) Timeframe: 1 Day Location: Determined by Patient Ordered By: Jaydon Lane Comprehensive Metabolic Panel (Routine) Timeframe: 1 Day Facility: [facility] - Location: Lab - Main Lab Ordered By: Jaydon Lane Referrals: Nel Peacock MD [Primary Care Provider] - 2 weeks Georgia Joseph MD [Hospitalist] - 2 weeks Discharge Diet: Cardiac Discharge Activity: Resume usual activity Activity Restrictions/Additional Instructions: -Continue to self isolate, for the next 3 weeks, social distance, hand wash, face mask, for COVID-19 -Continue to hydrate well, drink plenty of electrolyte balance fluids -Hold Cosentyx, hydrochloric quinine, prednisone until seen by rheumatology -Cefepime 2 g every 12 hours for the next 9 days -Valtrex 1 g every 8 hours for the next 9 days -Repeat CBC and CMP in 1 week -Follow-up as prescribed -For your type 2 diabetes, monitor blood sugars closely as you have been on steroids -If blood sugar greater than 500, call primary care, if blood sugar less than 60 drink or juice and call primary care -Continue home insulin dosing regimen Discharge Attestations Time Spent in Discharge Care*: less than 30 min Quality Metrics Clinical Quality Measures During this hospital stay, did patient experience: None Coding Level of Care Code Acute [employer] for [employer] Diagnoses Altered mental status R41.82 Meningoencephalitis G04.90 COVID-19 U07.1 Seizures R56.9 Low back pain with sciatica M54.40 PVD (peripheral vascular disease) I73.9 Essential hypertension I10 Long-term current use of opiate analgesic Z79.891 Diabetes E11.9 Emphysema/COPD J43.2 Emphysema type: centrilobular Portal vein thrombosis I81 Chronic anticoagulation Z79.01 Immunocompromised D84.9
[2020-05-25 13:07] LABS: Quantiferon Mitogen 3.04 IU/mL; Quantiferon Nil 0.01 IU/mL; Quantiferon TB Gold NEGATIVE (NEGATIVE)
--- NOTE | 2020-05-25 16:00 | PC.NURSE ---
pt iv taken out and intact. pt discharge instruction explained and questions answered. pt taken to parking lot #7 via wheelchair.
[2020-05-25 16:38] LABS: Osmolality Urine 294 mOsm/kg (50-1200)
--- NOTE | 2020-05-27 10:46 | PC.SOCIAL ---
Spoke with the patient on the phone about the discharge information they received spoke about signs and symptoms to watch for such as; blue lips or face, fever of 104 or higher, trouble breathing or catching breath, chest pain lasting longer than 5 minute, confusion or trouble waking up. We also spoke about ways to improve the immune system, these included; eating and drinking well, eating fruits and vegetables, lean meat, low fat dairy products, keeping up with immunizations such as flu/pneumonia/shingles shots, going to all appointments and follow ups, lessening and stress. We also spoke about ways to stop or prevent the spread of the COVID 19. These included; social distancing at all times, washing hands longer than 20 seconds with a good lather, sanitizing surfaces in home and in vehicle, masking up when possible and washing any cloth masks after use and allow them to dry completely before next use, sneezing or coughing into arm, restricting company or going out in public. We spoke a little about the benefits of plasma donation. SHe would like info, this will be mailed out. The patient mentioned that she does currently have a [employer] company helping her with IV infusions [place], she did mention the need for a bath aid and a nurse, she stated that this is suppose to have been set up. She stated that she would appreciate the extra help. She does have an appointment set up with Dr. Peacock Jun 09 she also has an appointment set up to see Dr. Joseph on June 08 @ 10:30 AM. She has no further questions.
== END 2020-05-25 16:02 | disposition home or self-care (01) | DRG 177 ==
LOC: ER 15:23 → ICU 17:16 → MEDSURG 05-23 22:12
PROVIDERS: Nurse Practitioner Family; Admitting Provider Student in an Organized Health Care Education/Training Program; Emergency Provider Family Medicine; PCP Internal Medicine; Visit Provider Family Medicine
DX: U07.1 COVID-19 (principal); G04.90 Encephalitis and encephalomyelitis, unspecified; N17.9 Acute kidney failure, unspecified; M05.9 Rheumatoid arthritis with rheumatoid factor, unspecified; Z79.52 Long term (current) use of systemic steroids; E78.5 Hyperlipidemia, unspecified; E11.51 Type 2 diabetes mellitus with diabetic peripheral angiopathy without gangrene; Z86.718 Personal history of other venous thrombosis and embolism; Z79.01 Long term (current) use of anticoagulants; M47.812 Spondylosis without myelopathy or radiculopathy, cervical region; F17.210 Nicotine dependence, cigarettes, uncomplicated; J43.9 Emphysema, unspecified; Z79.1 Long term (current) use of non-steroidal anti-inflammatories (NSAID); I10 Essential (primary) hypertension; M79.7 Fibromyalgia; L60.3 Nail dystrophy; R56.9 Unspecified convulsions; Z79.891 Long term (current) use of opiate analgesic; Z79.4 Long term (current) use of insulin; M54.40 Lumbago with sciatica, unspecified side
CPT/HCPCS: 12345; 36415; 36416; 36569; 36600; 51702; 70450; 71045; 74177; 76770; 80051; 80053; 80306; 80307; 81001; 82009; 82044; 82140; 82274; 82330; 82436; 82550; 82570; 82728; 82803; 82805; 82962; 83540; 83550; 83605; 83615; 83630; 83690; 83735; 83880; 83935; 84100; 84133; 84145; 84300; 84443; 84484; 84540; 85025; 85378; 85384; 85610; 85999; 86140; 86403; 86480; 86592; 86694; 86705; 86706; 86709; 86803; 87040; 87327; 87340; 87426; 87449; 87493; 87506; 87536; 87641; 87804; 93005; 94640; 94660; 94664; 96372; 96375; 99284; 99291; C9113; J0133; J0692; J1100; J1630; J1650; J1756; J1815 ×2; J1940; J1953; J1956; J2060; J2270; J2405; J2550; J3370; J3486; J3490; J3535; J7030; J7040; J7626; Q9967

== ENCOUNTER 2020-05-28 11:54 | Inpatient (IN) | payer MEDICAID, SELFPAY ==
[2020-05-28] VITALS (8 sets, daily range): BP systolic 118–162; BP diastolic 71–78; PULSE 87–111; RESP 16–20; TEMP 36.6–37.4; O2SAT 96–100; BMI 33.3
--- NOTE | 2020-05-28 12:16 | XR_ITS ---
WS: [id number] Exam: XR chest 1V portable [id number] Date/Time of Exam: 05/28/2020 12:40 PM Reason For Exam: COVID Comparison 05/25/2020. The lungs are clear. Chronic interstitial changes noted. Normal cardiomediastinal structures and bony elements. A right-sided PICC line is in place ending in the lower one third of the SVC. No pleural e ffusions. EKG leads superimpose the chest. XR/XR chest 1V portable [id number] IMPRESSION: 1. Chronic interstitial changes. No acute process. Stable.
[2020-05-28 13:11] LABS: Alanine Aminotransferase 17 U/L (0-33); Albumin Level 3.3 g/dL (3.5-5.2); Alkaline Phosphatase 174 IU/L (35-105); Anion Gap 13.4 (5-19); Aspartate Amino Transferase 16 U/L (0-32); Blood Urea Nitrogen 12 mg/dL (6-20); C Reactive Protein 31.7 mg/L (0.0-4.9); Calcium 8.3 mg/dL (8.5-10.5); Carbon Dioxide 26 mmol/L (22-29); Chloride 100 mmol/L (98-107); Creatine Phosphokinase 40 U/L (26-192); Creatinine Clr Calc Pharmacy 105.8007; Glomerular Filtration Rate 88.2 mL/min (90-130); Glucose 324 mg/dL (65-115); Magnesium 1.3 mg/dL (1.7-2.3); Osmolality Calculated 294 mOsm/kg (285-295); Potassium 3.4 mmol/L (3.5-5.1); Sodium 136 mmol/L (136-145); Total Bilirubin 0.7 mg/dL (0.15-1.2); Total Protein 6.3 g/dL (6.6-8.7)
[2020-05-28 13:26] LABS: INR 0.99 (0.8-1.2)
[2020-05-28 13:36] LABS: Fibrinogen 505 mg/dL (174-498)
--- NOTE | 2020-05-28 13:47 | ED_ITS ---
HPI - COVID General: Chief Complaint: COVID symptoms Stated Complaint: covid +/ hallucinations Time Seen by Provider: 05/28/20 11:59 Triage information: No fever, cough or shortness of breath . Exposure to COVID + person last 14 days History of Present Illness: HPI Narrative: This patient is a 49-year-old female who presents today with concerns about worsening Covid symptoms. She tells me that she was diagnosed with Covid last week while she was here in the hospital. She said they told her she had swelling in her brain and around her brain. She is not able to tell me much more than that. She is back today because she is continuing to have some confusion and difficulty concentrating. She also said she still been running fevers and per her home oxygen saturation her oxygen was in the 70s. She gets short of breath with exertion. She has a PICC line and has been getting IV antibiotics by home health. She also seems to be on acyclovir. When I reviewed her prior records it seems as though they decided to go ahead and treat her very broadly for meningitis/encephalitis empirically as a lumbar puncture was not done. She is a diabetic. She has rheumatoid arthritis but was taken off all of her immune modifying medications on her last visit. She is on apixaban and continues that. She has not had any vomiting or diarrhea since being discharged from the hospital. Her positive Covid test was on May 18. I am not sure how long she was having symptoms prior to that. She was discharged from the hospital on May 25. She does not have oxygen at home. complaint: known COVID positive Prior testing date: 05/18/20 COVID 19 common symptoms: positive fever(s), non-productive cough, dyspnea and fatigue; negative headache(s), nausea or vomiting COVID 19 other sytmptoms: negative chest pain Onset (ago): unknown (Positive test and hospital admission on 18 May.) Severity: moderate Pertinent comorbid conditions: diabetes, hypertension, COPD/respiratory disease, recent ED visit for same complaint, recent hospital stay for same diagnosis and has COVID home care arranged COVID Results: SARS-CoV-2 Antigen (Rapid) Positive (Negative) H 05/18/20 15:05 05/18/20 Nasal/Oral Coronavirus 2019 PCR Negative 02/28/20 11:40 02/28/20 Review of Systems General: Reports: 10 or more systems reviewed and unremarkable except in HPI and below Const: Reports: fever(s) and fatigue Eyes: Denies: change in vision ENMT: Denies: odynophagia Card: Denies: chest pain or swelling of feet/ankles Resp: Reports: dyspnea and non-productive cough GI: Denies: abdominal pain, nausea or vomiting : Denies: flank pain or difficulty voiding Musc: Denies: neck pain or back pain Skin/Breast: Denies: rash Neuro: Denies: headache(s), numbness in extremities or weakness in extremities Psych: Reports: memory loss, difficulty concentrating and visual hallucinations Jewel/Lymph: Denies: easy bruising or easy bleeding PFSH ED PFSH: Medical History Acute kidney injury Avulsion fracture of left ankle Cervical spondylosis Chronic anticoagulation Cigarette smoker motivated to quit Claudication Closed fracture of right distal fibula DDD (degenerative disc disease), cervical Diabetes Dyspnea Emphysema/COPD Encounter for long-term (current) use of NSAIDs Essential hypertension Fibromyalgia Fracture Immunocompromised Intractable nausea and vomiting Long-term current use of opiate analgesic Onychodystrophy Osteoporosis Pain management contract signed Pain, joint, multiple sites Portal vein thrombosis Rheumatoid arthritis Right foot pain Spondylosis of lumbar region without myelopathy or radiculopathy Syncope Tobacco use disorder Surgical History H/O dilation and curettage Hx laparoscopic cholecystectomy Hx of section (~1989) Hx of hysterectomy Family History Mother Stroke Cancer SKIN CANCER Sister Stroke Other Diabetes Myocardial infarct Denies family history of Anesthesia complication Bleeding disorder Social History Smoking and tobacco status: current every day smoker cigarettes Packs smoked per day: 0.5 Years cigarettes smoked: 40 Quit status (tobacco): has tried quititng Second hand smoke exposure: Yes Alcohol intake: former Caregiver/support person: Yes Lives independently: Yes Household members: spouse Marital status: Current occupational status: disabled History of recent travel: No Current gender identity: Female Physical Exam Const: COMMON NORMALS: no acute distress, patient oriented x3 and alert G ENERAL APPEARANCE: cooperative, comfortable and ill appearing (Pale) HENMT: HEAD & SCALP: normal to inspection FACE & SINUS: normal facial exam Eye: GENERAL EYE: appearance normal, both eyes and all related structures Neck/C-Spine: COMMON NORMALS: supple, no meningeal signs and no JVD Chest: COMMONS NORMALS: normal inspection of the chest Resp: COMMON NORMALS: normal respiratory effort, No use of accessory muscles and clear to auscultation bilaterally AUSCULTATION: clear to auscultation bilaterally Cardio: COMMON NORMALS: no JVD, regular rate, regular rhythm and No murmurs present (Cardio) RATE: regular rate RHYTHM: regular rhythm GI: COMMON NORMALS: Normal to inspection, nondistended, normoactive bowel sounds present, Soft to palpation and non-tender INSPECTION: Yes normal to inspection AUSCULTATION: Yes normoactive bowel sounds PALPATION: Yes Soft to palpation Back/Pelvis: COMMON NORMALS: thoracic and lumbar spine normal to inspection Extremity: COMMON NORMALS: normal to inspection NARRATIVE EXTREMITY EXAM: PICC line, right upper extremity. Extensive bruising around the arm Neuro: COMMON NORMALS: patient oriented x3, moves all extremities, no focal motor deficits and no sensory deficits noted SENSORIUM/ORIENTATION: Yes alert MENINGEAL SIGNS: Yes no meningeal signs Psych: COMMON NORMALS: mental status grossly normal, cooperative and normal affect Skin: COMMON NORMALS: no rashes or lesions noted and turgor normal GENERAL SKIN EXAM: no rashes or lesions noted and turgor normal Course ED course: This patient has a very high white count. She is being treated for meningitis after a positive Covid test. I spoke with Dr. Nguyễn who had taken care of her while in the hospital. He has arranged for her to get a lumbar puncture and be readmitted to the hospital. Vital Signs: Vital signs: Vital Signs Temperature 98.4 F 05/30/20 08:00 Pulse Rate 86 05/30/20 12:00 Respiratory Rate 20 H 05/30/20 12:00 Blood Pressure 137/69 05/30/20 12:00 Pulse Oximetry 96 05/30/20 12:00 MDM - COVID Lab Data: Labs: Lab Results 05/28/20 05/28/20 05/28/20 Range/Units 12:40 12:40 12:40 WBC Cancelled Corrected WBC Cancelled RBC Cancelled Hgb Cancelled Hct Cancelled MCV Cancelled MCH Cancelled MCHC Cancelled RDW Cancelled Plt Count Cancelled MPV Cancelled Gran % Cancelled Neut % (Auto) Cancelled Lymph % (Auto) Cancelled [place] % (Auto) Cancelled Eos % (Auto) Cancelled Baso % (Auto) Cancelled Neut # (Auto) Cancelled Lymph # (Auto) Cancelled [place] # (Auto) Cancelled Eos # (Auto) Cancelled Baso # (Auto) Cancelled Absolute Gran (aut o) Cancelled Nucleated RBC % (a uto) Cancelled Nucleated RBCs # Cancelled ESR (0-15) mm/hr PT 13.40 (12.1-14.9) SECO NDS INR 0.99 (0.8-1.2) Fibrinogen 505 H (174-498) mg/dL D-Dimer 1.04 H (0-0.59) ug/mIFE U Sodium 136 (136-145) mmol/L Potassium 3.4 L (3.5-5.1) mmol/L Chloride 100 (98-107) mmol/L Carbon Dioxide 26 (22-29) mmol/L Anion Gap 13.4 (5-19) BUN 12 (6-20) mg/dL Creatinine 0.7 (0.5-0.9) mg/dL GFR Calculation 88.2 L (90-130) mL/min Glucose 324 H (65-115) mg/dL Calculated Osmolal ity 294 (285-295) mOsm/k g Lactic Acid (0.5-2.2) mmol/L Calcium 8.3 L (8.5-10.5) mg/dL Magnesium 1.3 L (1.7-2.3) mg/dL Ferritin 786 H (15-150) ng/mL Total Bilirubin 0.7 (0.15-1.2) mg/dL AST 16 (0-32) U/L ALT 17 (0-33) U/L Alkaline Phosphata se 174 H (35-105) IU/L Lactate Dehydrogen ase 543 H (135-214) U/L Creatine Kinase 40 (26-192) U/L C-Reactive Protein 31.7 H (0.0-4.9) mg/L NT-Pro-B Natriuret Pep 399 H (0-125) pg/mL Total Protein 6.3 L (6.6-8.7) g/dL Albumin 3.3 L (3.5-5.2) g/dL Globulin 3.0 (1.3-4.6) g/dL Procalcitonin 0.32 (0-0.5) ng/mL 05/28/20 05/28/20 05/28/20 Range/Units 12:40 12:40 12:40 WBC Corrected WBC RBC Hgb Hct MCV MCH MCHC RDW Plt Count MPV Gran % Neut % (Auto) Lymph % (Auto) [place] % (Auto) Eos % (Auto) Baso % (Auto) Neut # (Auto) Lymph # (Auto) [place] # (Auto) Eos # (Auto) Baso # (Auto) Absolute Gran (aut o) Nucleated RBC % (a uto) Nucleated RBCs # ESR 16 H (0-15) mm/hr PT (12.1-14.9) SECO NDS INR (0.8-1.2) Fibrinogen (174-498) mg/dL D-Dimer (0-0.59) ug/mIFE U Sodium (136-145) mmol/L Potassium (3.5-5.1) mmol/L Chloride (98-107) mmol/L Carbon Dioxide (22-29) mmol/L Anion Gap (5-19) BUN (6-20) mg/dL Creatinine (0.5-0.9) mg/dL GFR Calculation (90-130) mL/min Glucose (65-115) mg/dL Calculated Osmolal ity (285-295) mOsm/k g Lactic Acid 2.0 (0.5-2.2) mmol/L Calcium (8.5-10.5) mg/dL Magnesium (1.7-2.3) mg/dL Ferritin (15-150) ng/mL Total Bilirubin (0.15-1.2) mg/dL AST (0-32) U/L ALT (0-33) U/L Alkaline Phosphata se (35-105) IU/L Lactate Dehydrogen ase (135-214) U/L Creatine Kinase (26-192) U/L C-Reactive Protein 32.1 H (0.0-4.9) mg/L NT-Pro-B Natriuret Pep (0-125) pg/mL Total Protein (6.6-8.7) g/dL Albumin (3.5-5.2) g/dL Globulin (1.3-4.6) g/dL Procalcitonin 0.33 (0-0.5) ng/mL COVID Results: SARS-CoV-2 Antigen (Rapid) Positive (Negative) H 05/18/20 15:05 05/18/20 Nasal/Oral Coronavirus 2019 PCR Negative 02/28/20 11:40 02/28/20 Discharge Plan Discharge Patient Disposition: Admitted As Inpatient Admit Provider: Jaydon Lane Clinical Impression: COVID-19 Altered mental status Qualifiers: Altered mental status type: disorientation Qualified Code(s): R41.0 - Disorientation, unspecified Anemia Qualifiers: Anemia type: unspecified type Qualified Code(s): D64.9 - Anemia, unspecified Leukocytosis Qualifiers: Leukocytosis type: unspecified Qualified Code(s): D72.829 - Elevated white blood cell count, unspecified Condition: Stable Coding Level of Care Code ED [employer] Fwd Exam Comprehensive
[2020-05-28 13:52] LABS: D Dimer 1.04 ug/mIFEU (0-0.59)
[2020-05-28 14:00] LABS: Procalcitonin 0.32 ng/mL (0-0.5)
[2020-05-28 14:10] LABS: Ferritin 786 ng/mL (15-150)
[2020-05-28 14:53] LABS: Lactate Dehydrogenase 543 U/L (135-214)
--- NOTE | 2020-05-28 15:14 | CTR_ITS ---
PROCEDURE INFORMATION: Exam: CT Head Without Contrast Exam date and time: 05/28/2020 4:10 PM Age: 49 years old Clinical indication: Altered mental status/memory loss; Additional info: AMS TECHNIQUE: Imaging protocol: Computed tomography of the head without contrast. Radiation optimization: All CT scans at this facility use at least one of these dose optimization techniques: automated exposure control; mA and/or kV adjustment per patient size (includes targeted exams where dose is matched to clinical indication); or iterative reconstruction. COMPARISON: CT head wo con* [id number] 05/18/2020 1:08 PM RADIATION DOSE METRICS: Total DLP (mGy-cm): 1493.92 FINDINGS: Brain: Mild parenchymal volume loss noted. There is decreased attenuation of the periventricular white matter, consistent with mild microangiopathic chronic white matter disease. No intracranial hemorrhage noted. No parenchymal edema identified. Cerebral ventricles: The ventricles are proportional to the sulci. No hydrocephalus is noted. Bones/joints: No fracture or other acute osseous abnormality. Paranasal sinuses: No air-fluid levels in the paranasal sinuses. Mastoid air cells: The mastoid air cells are clear bilaterally. Soft tissues: The soft tissues appear unremarkable. CT/CT head wo con* [id number] IMPRESSION: 1. Chronic intracranial changes are present. 2. No acute intracranial abnormality is noted. 3. There is no interval change from the prior examination. Radiation Dose CTDIVOL = (mGy): DLP = 1493.92 (mGy-cm)
[2020-05-28 15:21] LABS: NT Pro B Type Natriuretic Pept 399 pg/mL (0-125)
--- NOTE | 2020-05-28 15:26 | P.HP_ITS ---
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 She states that she has not taken Eliquis since hospital discharge. But she has taken aspirin. She tells me that her is concerned, she has been acting confused for the last day or so. Overnight she was talking to her parents during the night. I was also able to speak to patient's ov er the phone, who tells me that she just has not been acting right, has been acting strange at times. Patient states that she has been more nauseous recently, some neck pain, no neck stiffness, has been complaining of blurry vision. No falls, no injuries. Denies any alcohol use. Denies any drug use. She does use tramadol, Lexapro, trazodone, gabapentin, oxycodone for pain, monitor at the pain clinic. Denies using medication more than prescribed, denies using any other controlled substances. In addition her prednisone, hydroxychloroquine and Cosentyx were held during her hospitalization, she is adamant that she has not used these medications since hospital discharge. In the emergency room she sitting up on the gurney, playing with her phone, she is actually able to call her , she does not recognize me which is a bit strange, but I was in an N95 mask and gowned whenever I would see her on her last hospitalization, she recognizes my name to recognizes my voice, alert oriented x3, answers all questions appropriately, follows all commands. Review of Systems Const: Denies: fever(s), chills, fatigue or malaise Eyes: Denies: change in vision or blurry vision ENMT: Denies: nasal congestion Resp: Denies: dyspnea, productive cough, non-productive cough or wheezing GI: Denies: abdominal pain, nausea, vomiting, hematemesis, diarrhea, constipation, hematochezia or melena : Denies: flank pain, dysuria or urinary frequency Musc: Reports: neck pain; Denies: back pain Skin/Breast: Denies: rash Neuro: Reports: dizziness; Denies: headache(s) or vertigo Psych: Denies: anxiety or depression Endo: Denies: polyuria or polydipsia Medications/Allergies Home Medications Medication Instructions Recorded Confirmed Last Taken Type apixaban 5 mg tablet 5 mg PO BID 09/04/19 05/28/20 05/18/20 History insulin glargine 100 unit/mL 50 unit SUBCUT BEDTIME 09/04/19 05/28/20 05/17/20 History subcutaneous solution prednisone 5 mg tablet 7.5 mg PO DAILY 09/04/19 05/28/20 05/18/20 History ropinirole 2 mg tablet 2 mg PO BEDTIME 09/04/19 05/28/20 05/17/20 History rosuvastatin 20 mg tablet 20 mg PO DAILY 09/04/19 05/28/20 05/17/20 History clobetasol 0.05 % topical cream 1 applic TOPICAL BID PRN 09/05/19 05/28/20 Unknown History escitalopram oxalate 20 mg tablet 20 mg PO DAILY 09/05/19 05/28/20 05/18/20 History gabapentin 300 mg capsule See Rx Instructions .ROUTE 09/05/19 05/28/20 05/18/20 History .COMPLEX cap omeprazole 40 mg capsule,delayed 40 mg PO DAILY cap 09/05/19 05/28/20 05/18/20 History release ondansetron HCl 4 mg tablet 4 mg PO Q8H PRN 09/05/19 05/28/20 10/30/19 History nitroglycerin 0.4 mg sublingual 0.4 mg SUBLINGUAL Q5M PRN 30 Days 09/09/19 05/28/20 Unknown Rx tablet #25 tab isosorbide dinitrate 30 mg tablet 15 mg PO BID 90 Days #90 tab 10/03/19 05/28/20 05/18/20 Rx Glucagon (HCl) Emergency Kit 1 mg SUBCUT Q20M PRN #0 11/01/19 05/28/20 Unknown History aspirin [Aspir-81] 81 mg PO DAILY 11/01/19 05/28/20 05/18/20 History epinephrine [EpiPen 2-[place]] See Rx Instructions .ROUTE 11/01/19 05/28/20 Unknown History .COMPLEX PRN insulin aspart U-100 [Novolog See Rx Instructions .ROUTE .COMPLEX 11/01/19 05/28/20 12/12/19 History Flexpen U-100 Insulin] tramadol 50 mg tablet 50 mg PO TID PRN #90 tab 11/01/19 05/28/20 12/12/19 Rx trazodone 50 mg tablet 50 mg PO BEDTIME tab 01/09/20 05/28/20 05/17/20 History cilostazol 50 mg tablet 50 mg PO BID #60 tab 02/25/20 05/28/20 05/18/20 Rx duloxetine 30 mg capsule,delayed 30 mg PO DAILY 30 Days #30 cap 03/18/20 05/28/20 05/18/20 Rx release oxycodone 15 mg tablet 15 mg PO BID PRN 30 Days #60 tab 03/18/20 05/28/20 05/18/20 Rx nicotine 21 mg/24 hr daily 1 patch TRANSDERMA DAILY #14 each 03/24/20 05/28/20 Unknown Rx transdermal patch albuterol sulfate 2.5 mg INHALATION Q6H PRN 04/01/20 05/28/20 Unknown History baclofen 20 mg PO QID PRN 04/01/20 05/28/20 05/18/20 History docusate sodium [DOK] 200 mg PO DAILY PRN 04/01/20 05/28/20 Unknown History silver sulfadiazine 1 % topical 1 applic TOPICAL BID #50 gm 04/22/20 05/28/20 Unknown Rx cream hydroxychloroquine 200 mg tablet 200 mg PO BID #60 tab 05/12/20 05/28/20 05/18/20 Rx Combivent Respimat 1 puff INHALATION Q6H PRN 05/18/20 05/28/20 Unknown History Cosentyx Pen 150 mg SUBCUT Q30D 05/18/20 05/28/20 Unknown History ascorbic acid (vitamin C) [Vitamin 500 mg PO DAILY 30 Days #30 tab 05/25/20 05/28/20 Unknown Rx C] metoprolol tartrate 12.5 mg PO BID 30 Days #30 tab 05/25/20 05/28/20 Unknown Rx zinc gluconate 50 mg PO DAILY 30 Days #30 tab 05/25/20 05/28/20 Unknown Rx glycopyrrolate-formoterol [Bevespi 2 puff INHALATION BID 05/28/20 05/28/20 Unknown History Aerosphere] Allergies Allergy/AdvReac Type Severity Reaction Status Date / Time bee venom protein (honey bee) Allergy ALGY-Anaphy Verified 05/28/20 12:01 laxis PFSH Acute PFSH: Medical History Acute kidney injury Avulsion fracture of left ankle Cervical spondylosis Chronic anticoagulation Cigarette smoker motivated to quit Claudication Closed fracture of right distal fibula DDD (degenerative disc disease), cervical Diabetes Dyspnea Emphysema/COPD Encounter for long-term (current) use of NSAIDs Essential hypertension Fibromyalgia Fracture Immunocompromised Intractable nausea and vomiting Long-term current use of opiate analgesic Onychodystrophy Osteoporosis Pain management contract signed Pain, joint, multiple sites Portal vein thrombosis Rheumatoid arthritis Right foot pain Spondylosis of lumbar region without myelopathy or radiculopathy Syncope Tobacco use disorder Surgical History H/O dilation and curettage Hx laparoscopic cholecystectomy Hx of section (~1989) Hx of hysterectomy Family History Mother Stroke Cancer SKIN CANCER Sister Stroke Other Diabetes Myocardial infarct Denies family history of Anesthesia complication Bleeding disorder Social History Smoking and tobacco status: current every day smoker cigarettes Packs smoked per day: 0.5 Years cigarettes smoked: 40 Quit status (tobacco): has tried quititng Second hand smoke exposure: Yes Alcohol intake: former Caregiver/support person: Yes Lives independently: Yes Household members: spouse Marital status: Current occupational status: disabled History of recent travel: No Current gender identity: Female Vitals/I&O/Wt Last Vital Signs Temp 97.8 F 05/28/20 11:55 Pulse 103 H 05/28/20 11:55 Resp 16 05/28/20 11:55 BP 162/73 05/28/20 11:55 Pulse Ox 96 05/28/20 12:11 Weight last 48 hrs Weight 90.718 kg Physical Exam Const: COMMON NORMALS: no acute distress and patient oriented x3 GENERAL APPEARANCE: cooperative and comfortable HENMT: COMMON NORMALS: normocephalic HEAD & SCALP: normocephalic Eye: COMMON NORMALS: Equal, round and reactive pupils present and EOMs intact bilaterally GENERAL EYE: appearance normal, both eyes and all related structures PUPIL: Yes Equal, round and reactive pupils present Neck/C-Spine: COMMON NORMALS: full ROM, no lymphadenopathy, no JVD and Thyroid normal THYROID: Thyroid normal Lymph: LYMPHATIC: no lymphadenopathy noted Resp: COMMON NORMALS: normal respiratory effort, No retractions, No use of accessory muscles and clear to auscultation bilaterally AUSCULTATION: clear to auscultation bilaterally Cardio: COMMON NORMALS: no JVD, regular rate, regular rhythm, S1 normal heart sound present, S2 normal heart sound present, No gallops present (Cardio), No clicks present (Cardio) and No murmurs present (Cardio) RATE: regular rate RHYTHM: regular rhythm HEART SOUNDS: S1 normal heart sound present and S2 normal heart sound present GI: COMMON NORMALS: Normal to inspection, nondistended, normoactive bowel sounds present, Soft to palpation, non-tender and No hepatosplenomegaly present PALPATION: Yes Soft to palpation and Yes No hepatosplenomegaly present Extremity: COMMON NORMALS: normal to inspection, full ROM and no pedal edema Neuro: COMMON NORMALS: patient oriented x3, CN's II-XII intact bilaterally, moves all extremities and no focal motor deficits Psych: COMMON NORMALS: mental status grossly normal, Normal thought process present and cooperative THOUGHT PROCESS: Normal thought process present Data : 05/28/20 12:40 05/28/20 12:40 A&P Assessment and plan (1) Altered mental status: -Immunocompromise state given chronic steroids, Cosentyx, hydroxychloroquine -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 Valtrex, on 7 days of cefepime as outpatient -Is on multiple pain medications including oxycodone, gabapentin, tramadol, baclofen, Cymbalta, trazodone PLAN: -I went over the case with Dr. Vann, given her young age, white blood cell count of 23,000, persistent confusion despite antibiotics and antivirals, patient requires a lumbar puncture -Patient is adamant that she did not take Eliquis since hospital discharge, I confirmed this with the -Patient did take aspirin 81 mg this morning, advised that there is risk of bleeding/spinal cord bleeding associate with lumbar puncture, advised risk and benefits, voiced understanding, all questions answered, agreed to proceed -Did have an EEG, Dr. Vann read it, looks unremarkable -Continue acyclovir 1 g every 8 hours -Continue cefepime 2 g every 12 hours -LP will be performed early in the morning tomorrow, all studies ordered -If LP comes back unremarkable, I am highly suspicious that her mentation is a from multiple drug interactions and polypharmacy as above -I will hold all her pain medications, monitor mentation -Continue neurochecks -Hold all blood thinners, hold all antiplatelet agents -Full code -SCDs for DVT prophylaxis Status: Acute (2) Immunocompromised: Status: Acute (3) Chronic anticoagulation: Held since hospital discharge according to patient and Status: Acute (4) Portal vein thrombosis: On chronic anticoagulation with Eliquis, held since hospital discharge Status: Acute (5) COVID-19: Finished remdesivir course Status: Acute (6) Diabetes: -Continue home insulin, low-dose sliding scale Status: Acute Attestations Medical Necessity Statement*: Patient requires hospitalization, inpatient, greater than 2 minutes for altered mental status secondary to meningeal encephalitis Coding Level of Care Code Acute [facility] for [facility] Diagnoses Altered mental status R41.82 Immunocompromised D84.9 Chronic anticoagulation Z79.01 Portal vein thrombosis I81 COVID-19 U07.1 Diabetes E11.9
[2020-05-28 15:42] LABS: Procalcitonin 0.33 ng/mL (0-0.5)
[2020-05-28 15:53] LABS: C Reactive Protein 32.1 mg/L (0.0-4.9)
[2020-05-28] MEDS: acyclovir 1,000 MG in sodium chloride 0.9% (100 ml) 100 ML 120 MG IV (16:39)
[2020-05-28] MEDS: isosorbide dinitrate 20 mg Tablet 15 MG PO (18:24)
[2020-05-28] MEDS: cilostazol 100 mg Tablet 50 MG PO (18:25)
[2020-05-28] MEDS: metoprolol tartrate 25 mg Tablet 12.5 MG PO (18:25)
[2020-05-28 18:29] LABS: Erythrocyte Sedimentation Rate 16 mm/hr (0-15)
--- NOTE | 2020-05-28 19:27 | PC.NURSE ---
Report Ilana DURAN at this time.
[2020-05-28 19:42] LABS: Glucose Point of Care 329 mg/dL (70-110)
[2020-05-28] MEDS: cefepime 2,000 MG in sodium chloride 0.9% (plus) 50 ML 100 MG IV (22:06)
[2020-05-28] MEDS: atorvastatin 40 mg Tablet 80 MG PO (22:06)
[2020-05-28] MEDS: insulin glargine 100 units/1 mL 50 UNIT SUBCUT (22:07)
[2020-05-28] MEDS: ropinirole 2 mg Tablet PO (22:07)
[2020-05-28] MEDS: trazodone 50 mg Tablet PO (22:08)
[2020-05-29] VITALS (7 sets, daily range): BP systolic 121–154; BP diastolic 70–82; PULSE 79–106; RESP 16–30; TEMP 36.5–37.2; O2SAT 92–99
[2020-05-29] MEDS: baclofen 10 mg Tablet 20 MG PO ×3 (00:13→22:05)
[2020-05-29] MEDS: TRAMadol 50 mg Tablet PO ×3 (00:14→22:06)
[2020-05-29] MEDS: LORazepam 2 mg/mL INJ 1 mL 0.5 MG IVP ×2 (00:37→15:38)
[2020-05-29] MEDS: acyclovir 1,000 MG in sodium chloride 0.9% (100 ml) 100 ML 120 MG IV ×4 (00:52→23:12)
[2020-05-29] MEDS: dextrose 50% syringe 50 mL IVP (05:10)
[2020-05-29 05:25] LABS: ABG PCO2 38.7 mmHg (35-45); ABG PH Result 7.48 (7.35-7.45); Arterial Blood Gas Hematocrit 36.1 % (37-47); Base Excess ABG 5.3 mmol/L (-2.0-2.0); Blood Gas Allen Test Pos; Blood Gas Operator Identificat HARKR; Blood Gas Sample Site Radial, right; Blood Gas Sample Type Arterial; HCO3 ABG 29.1 mmol/L (22-26); Oxygen Device NC; PO2 ABG 58.4 mmHg (80.0-100.0)
[2020-05-29 05:59] LABS: Glucose Point of Care 174 mg/dL (70-110)
--- NOTE | 2020-05-29 07:33 | PC.NURSE ---
Nurse took patient vitals at 0400 and found patient oxygen to be 74% on RA. Patient had previously been in the mid 90's with no signs of distress. Nurse applied 6L oxygen via nasal cannula and began sternal rubbing patient and calling out patient name, patient opened eyes but did not verbally respond or follow verbal commands, Dr. Wahl notified and Respiratory was called, patient O2 sat did recover and patient was 96% on 3L. RT yohan an ABG and notified nurse of blood glucose of 42. Doctor michael was notified and came to assess patient, Dr. Wahl ordered 1 amp of D50. Patients glucose improved to 174 by 0600. Patient was more alert and oxygen continued to be stable on 3L, Nurse gave report to RUTHANN Erwin for shift change.
[2020-05-29] MEDS: pantoprazole DR 40 mg Tablet PO (09:16)
[2020-05-29] MEDS: zinc gluconate 50 mg Tablet PO (09:16)
[2020-05-29] MEDS: ascorbic acid 500 mg Tablet PO (09:16)
[2020-05-29] MEDS: metoprolol tartrate 25 mg Tablet 12.5 MG PO ×2 (09:16→17:28)
[2020-05-29] MEDS: duloxetine 30 mg Capsule PO (09:16)
[2020-05-29] MEDS: nicotine 21 mg Patch 1 PATCH TRANSDERMA (09:17)
[2020-05-29 10:15] LABS: Basophils % 0.2 %; Eosinophils # 0.2 10^3/uL (0.0-0.8); Eosinophils % 1.3 %; Hemoglobin 12.9 g/dL (11.5-15.3); Lymphocytes # 1.2 10^3/uL (0.8-4.8); Lymphocytes % 9.9 %; Mean Corpuscular HGB Conc 32.3 g/dL (30.0-36.0); Mean Corpuscular Hemoglobin 27.4 pg (28.0-34.0); Mean Corpuscular Volume 84.9 fL (81-99); Monocytes # 0.7 10^3/uL (0.2-0.9); Monocytes % 5.7 %; Neutrophils # 10.09 10^3/uL (1.8-7.7); Neutrophils % 81.8 %; Nucleated Red Blood Cells % 0 %; Platelet Count 124 10^3/cmm (130-400); Red Blood Count 4.71 10^6/uL (4.1-5.3); Red Cell Distribution Width 19.2 % (12.1-15.1); White Blood Count 12.3 10^3/uL (4.0-10.0)
[2020-05-29] MEDS: isosorbide dinitrate 20 mg Tablet 15 MG PO ×2 (10:17→17:29)
[2020-05-29] MEDS: cefepime 2,000 MG in sodium chloride 0.9% (plus) 50 ML 100 MG IV ×2 (10:18→22:19)
[2020-05-29] MEDS: magnesium sulfate premix 2 GM/50 ML PIGGYBACK IV (10:41)
[2020-05-29] MEDS: dextrose 5%-sod chloride 0.45% 1,000 ML 75 ML IV (11:02)
--- NOTE | 2020-05-29 11:31 | MR_ITS ---
WS: [id number] MRI BRAIN WITHOUT CONTRAST HISTORY: AMS COMPARISON: 11/04/2016 TECHNIQUE: Diffusion imaging, multiplanar T1, T2 and FLAIR imaging obtained. Study is compromised by motion artifact. No evidence for acute infarct or hemorrhage. Zepeda-white matter differentiation is normal. There is significant progression of the confluent periventricular white matter T2 and FLAIR signal hy perintensity since 2017. Most significant around the occipital horns and greatest on the LEFT. No hem orrhage. Ventricles and extra-axial spaces are normal. No inferior displacement of cerebellar tonsils. The sella turcica and pituitary gland are unremarkabl e. Increased T2 signal in the yana bilaterally is also new since the prior study. Dural venous sinuses and [place] of [place] demonstrate no abnormality on this unenhanced studies. Paranasal sinuses: Clear. Mastoid air cells: Normal. Calvarium and scalp: Intact. MR/MR head wo con* [id number] IMPRESSION: 1. No acute infarct. 2. There has been a significant progression of confluent periventricular white matter signal abnormalities since 2017 with additional bilateral increased sig nal in the yana. May be related to small vessel microvascular ischemic disease but other etiologies such as demyelination and vasculitides should be considere d.
--- NOTE | 2020-05-29 12:29 | PC.NURSE ---
Patient gave this medical technical writer verbal permission to speak to and add Ligia Del Castillo her older sister to her PHI form.
[2020-05-29 12:31] LABS: Glucose Point of Care 107 mg/dL (70-110)
[2020-05-29 12:31] LABS: Glucose Point of Care 129 mg/dL (70-110)
[2020-05-29 12:31] LABS: Glucose Point of Care 76 mg/dL (70-110)
--- NOTE | 2020-05-29 12:57 | PC.NURSE ---
Checked patient's glucose level and it was 76. Patient drank a cup of orange juice and Dr. Lane gave a verbal order to start D51/2 NS at 75mls/hr until he sees her tomorrow morning or to call him if her blood sugar begins to reach 300. Patient is alert and orientated x3.
--- NOTE | 2020-05-29 14:59 | PM.PN ---
Subjective Subjective: Interval history: This morning patient was examined, she is alert oriented x3, she follows all commands a bit drowsy, she is a bit frustrated that her lumbar puncture cannot be performed today, she is feeling a bit nauseous, overnight she did have agitation episodes, overnight she did have hypoglycemic episodes, Vitals/I&O/Wt Last Vital Signs Temp 98.9 F 05/29/20 12:00 Pulse 92 05/29/20 12:00 Resp 18 05/29/20 12:00 BP 129/76 05/29/20 12:00 Pulse Ox 92 05/29/20 12:00 05/28/20 05/29/20 05/29/20 22:59 06:59 14:59 Intake Total 650 / 650 120 / 770 340 / 340 Balance 650 / 650 120 / 770 340 / 340 Weight last 48 hrs Weight 90.718 kg Physical Exam Const: COMMON NORMALS: no acute distress and patient oriented x3 HENMT: COMMON NORMALS: normocephalic HEAD & SCALP: normocephalic Neck/C-Spine: COMMON NORMALS: no JVD Resp: COMMON NORMALS: normal respiratory effort, No retractions, No use of accessory muscles and clear to auscultation bilaterally AUSCULTATION: clear to auscultation bilaterally Cardio: COMMON NORMALS: no JVD, regular rate, regular rhythm, S1 normal heart sound present and S2 normal heart sound present RATE: regular rate RHYTHM: regular rhythm HEART SOUNDS: S1 normal heart sound present and S2 normal heart sound present GI: COMMON NORMALS: Normal to inspection, nondistended, normoactive bowel sounds present, Soft to palpation, non-tender, No hepatosplenomegaly present, no masses and no bruits PALPATION: Yes Soft to palpation and Yes No hepatosplenomegaly present Extremity: COMMON NORMALS: capillary refill normal, no clubbing, cyanosis or edema, no calf tenderness and no pedal edema Neuro: COMMON NORMALS: patient oriented x3 Psych: COMMON NORMALS: mental status grossly normal Data : 05/29/20 05:30 05/28/20 12:40 Micro: Microbiology 05/28/20 15:28 Blood Culture - Preliminary Blood SPECIMEN COLLECTED 05/28/20 15:24 Blood Culture - Preliminary Blood SPECIMEN COLLECTED A&P Assessment and plan (1) Altered mental status: -Immunocompromised state given chronic steroids, Cosentyx, hydroxychloroquine -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 Valtrex, on 7 days of cefepime as outpatient -Is on multiple pain medications including oxycodone, gabapentin, tramadol, baclofen, Cymbalta, trazodone PLAN: -I went over the case with Dr. Vann, given her young age, white blood cell count of 23,000, persistent confusion despite antibiotics and antivirals, patient requires a lumbar puncture -Patient is adamant that she did not take Eliquis since hospital discharge, I confirmed this with the -Patient did take aspirin 81 mg this morning -Unfortunately patient took a cilostazol yesterday, Dr. Sr wants it held for 48 hours, discontinue for now, -Plan on performing lumbar puncture on Monday -advised that there is risk of bleeding/spinal cord bleeding associate with lumbar puncture, advised risk and benefits, voiced understanding, all questions answered, agreed to proceed -Did have an EEG, Dr. Vann read it, looks unremarkable -Continue acyclovir 1 g every 8 hours -Continue cefepime 2 g every 12 hours -LP will be performed on Monday -We will do MRI of the brain in the meantime -If LP comes back unremarkable, I am highly suspicious that her mentation is a from multiple drug interactions and polypharmacy as above -I will hold all her pain medications, monitor mentation -Continue neurochecks -Hold all blood thinners, hold all antiplatelet agents -Full code -SCDs for DVT prophylaxis Status: Acute Qualifiers: Altered mental status type: disorientation Qualified Code(s): R41.0 - Disorientation, unspecified (2) Immunocompromised: Status: Acute (3) Chronic anticoagulation: Held since hospital discharge according to patient and Status: Acute (4) Portal vein thrombosis: On chronic anticoagulation with Eliquis, held since hospital discharge Status: Acute (5) COVID-19: Finished remdesivir course Status: Acute (6) Diabetes: -Continue home insulin, low-dose sliding scale Status: Acute (7) Hypoglycemia: Did have hypoglycemic episodes overnight, currently on D5 normal saline Status: Acute Additional A&P Information Plan for today MRI of the brain, hold all sedating medications, for hypoglycemia D5 normal saline started, encourage oral hydration Attestations Medical Necessity Statement*: Patient requires hospitalization for altered mental status, suspicious for meningeal encephalitis, MRI of the brain required, waiting for lumbar puncture Coding Level of Care Code Acute Jinrikisha Driver for Chikis Toro Diagnoses Altered mental status R41.0 Altered mental status type: disorientation Immunocompromised D84.9 Chronic anticoagulation Z79.01 Portal vein thrombosis I81 COVID-19 U07.1 Diabetes E11.9 Hypoglycemia E16.2
--- NOTE | 2020-05-29 15:00 | PC.NURSE ---
Patient up and walked to the bathroom without her oxygen. Patient had a bowel movement. Patient ambulated back to bed and oxygen level was checked and was 94% on room air. Patient stated that she feels fine and is not short of breath. Patient updated on the time of her MRI. Patient verbalized understanding.
--- NOTE | 2020-05-29 15:49 | PC.NURSE ---
Patient to MRI at this time.
--- NOTE | 2020-05-29 16:50 | PC.NURSE ---
Patient returned from MRI and requests to take a shower. Patient's blood sugar checked and it is 85. Patient states, My is bringing me something to eat so I will wait on that. Patient into the shower at this time.
[2020-05-29 17:06] LABS: Glucose Point of Care 85 mg/dL (70-110)
--- NOTE | 2020-05-29 17:30 | PC.NURSE ---
Patient refused our dinner tray stating, My is going to bring me some food tonight. Until then I am going to eat the M&M's I have in my bag. I won't eat very many. Patient is sitting in her bed eating M&M's at this time. No obvious signs of distress noted.
[2020-05-29 18:18] LABS: Ammonia 20 umol/L (11-51); Lactate (Lactic Acid level) 1.1 mmol/L (0.5-2.2)
[2020-05-29 21:20] LABS: Glucose Point of Care 84 mg/dL (70-110)
[2020-05-29 21:55] LABS: Glucose Point of Care 137 mg/dL (70-110)
[2020-05-29] MEDS: atorvastatin 40 mg Tablet 80 MG PO (22:03)
[2020-05-29] MEDS: insulin glargine 100 units/1 mL 50 UNIT SUBCUT (22:04)
[2020-05-29] MEDS: ropinirole 2 mg Tablet PO (22:04)
[2020-05-30] VITALS (8 sets, daily range): BP systolic 133–171; BP diastolic 69–91; PULSE 78–101; RESP 16–20; TEMP 36.8–37.2; O2SAT 93–98
--- NOTE | 2020-05-30 00:59 | PC.NURSE ---
This nurse had noticed while in another patient's room that an IV pump alarm was on. This nurse went to investigate. Upon entering the room, this nurse noticed that the IV pump inactivity alarm was on. Upon shutting off the pump. This nurse investigated the line from the pump going to the patient. The line was laying on top of the SCD pump. At that time the nurse noticed that it was a pulled PICC line (intact). Then this nurse noticed that the patient had blood on her arm, and right breast with her Telemetry pulled off. The patient then stated that she had to get out of there. After Inspecting where the PICC line had been and there were no active bleeding. This nurse notified the charge and that patient's nurse. The patient was bandaged, cleaned and linen changed. The patient complained of nausea and actively refused Telemetry. The patient's nurse and the DIRECTOR CALL both stated that an hour prior, that patient had a long sleeve shirt on, Telemetry was on, and antibiotics was running.
[2020-05-30] MEDS: dextrose 5%-sod chloride 0.45% 1,000 ML 75 ML IV ×2 (06:07→16:38)
--- NOTE | 2020-05-30 06:35 | PC.NURSE ---
Addendum entered by Jacques Borrero RN 05/30/20 06:42: Dr Wahl was also notified and an order of a 1:1 sitter was given. Original Note: As this nurse was walking out of a patient's room. The SALES AND SERVICE ADVISOR called to this nurse and stated that there was blood leading from the bed to the bathroom. This nurse observed that the patient was on the toilet having a bowel movement and state oh my god, oh my god while she was actively bleeding from her now DC'd IV site. This nurse bandaged the patient and notified the patient's nurse and notified the nightman charge and incoming dayshift charge.
[2020-05-30 06:36] LABS: Glucose Point of Care 52 mg/dL (70-110)
[2020-05-30 06:36] LABS: Glucose Point of Care 40 mg/dL (70-110)
[2020-05-30 06:48] LABS: Glucose Point of Care 180 mg/dL (70-110)
--- NOTE | 2020-05-30 07:00 | XRR_ITS ---
PROCEDURE INFORMATION: Exam: XR Chest, 1 View Exam date and time: 05/30/2020 8:00 AM Age: 49 years old Clinical indication: Shortness of breath; Patient HX: Covid; Additional info: SOB TECHNIQUE: Imaging protocol: XR of the chest Views: 1 view. COMPARISON: CR XR chest 1V portable [id number] 05/28/2020 12:26 PM FINDINGS: Lungs: Benign calcified right hilar lymph nodes and right pulmonary granulomas present. There is mild interstitial haziness which has not significantly changed since previous examination. There is no focal airspace consolidation. Pleural space: Unremarkable. No pleural effusion. No pneumothorax. Heart/Mediastinum: Unremarkable. No cardiomegaly. Bones/joints: Unremarkable. XR/XR chest 1V portable [id number] IMPRESSION: There is mild stable interstitial pulmonary haziness. This may be due to chronic fibrosis but stable viral pneumonitis is also possible.
--- NOTE | 2020-05-30 07:34 | PC.NURSE ---
shift summary Patient has been very uncooperative with care this shift. Patient would call her and place on speaker phone each time nurse was in room. Patient would ask the same questions over and over each time the nurse entered the room. The patient told the nurse several times that she (the patient) had swelling of the brain, the nurse read to the patient the findings of the CT and MRI report that she had done. The patient repeated several times that she just wanted to go home and that she was sick of this place. Pt asked nurse why she was being held here. The nurse explained she was not being held here and was free to leave AMA, the patient stated she did not wish to leave. Nurse heard the patient and arguing frequently on the phone when nurse was in room to round or pass meds. During the night the pt pulled out her own picc line and denied doing so, this nurse asked how did this happen and pt responded with a raised voice I dont know you tell me!? What the hell are yall doing to me in here! Nurse explained to PT that staff did not pull out her PICC line but pt stated she had no idea how it happened. Nurse informed Doctor Wahl and said to give her time to settle before trying for an IV. Nurse went into room an hour an half later and PT was slow to arouse and slow to verbally respond to nurse, PT seemed to be confused, Nurse checked blood glucose, glucose was 40. Nurse quickly put in a 20g IV in the left forearm and started IV fluids D5-1/2NS at 100 mls/hr. PT became more alert and able to follow commands and nurse stayed at the bedside instructing PT to drink orange juice mixed with sugar. Nurse followed juice with a higher protein snack. glucose rechecked in 30 mins and was 52, glucose rechecked in another 30 mins and was 180. Pt pulled out the 20g IV. When nurse asked PT why she did this PT responded im sick of this shit Doctor wahl notified and orders for 1:1 sitter received. Morning labs were not able to be drawn due to pt's agitation and jerking her arms from nurse. shift report given and care turned over to RUTHANN Crouch dayshift staff.
[2020-05-30] MEDS: docusate sodium 100 mg Capsule 200 MG PO (10:06)
[2020-05-30] MEDS: acyclovir 1,000 MG in sodium chloride 0.9% (100 ml) 100 ML 120 MG IV ×2 (10:06→15:52)
[2020-05-30] MEDS: ondansetron 4 MG Tablet PO (10:07)
[2020-05-30] MEDS: isosorbide dinitrate 20 mg Tablet 15 MG PO ×2 (10:07→17:06)
[2020-05-30] MEDS: ascorbic acid 500 mg Tablet PO (10:07)
[2020-05-30] MEDS: pantoprazole DR 40 mg Tablet PO (10:08)
[2020-05-30] MEDS: zinc gluconate 50 mg Tablet PO (10:08)
[2020-05-30] MEDS: nicotine 21 mg Patch 1 PATCH TRANSDERMA (10:08)
[2020-05-30] MEDS: TRAMadol 50 mg Tablet PO ×2 (10:10→21:52)
[2020-05-30] MEDS: metoprolol tartrate 25 mg Tablet 12.5 MG PO ×2 (10:10→17:07)
[2020-05-30 10:59] LABS: Glucose Point of Care 258 mg/dL (70-110)
[2020-05-30] MEDS: cefepime 2,000 MG in sodium chloride 0.9% (plus) 50 ML 100 MG IV ×2 (11:27→22:05)
[2020-05-30 14:05] LABS: Basophils # 0.1 10^3/uL (0.0-0.1); Basophils % 0.5 %; Eosinophils # 0.3 10^3/uL (0.0-0.8); Eosinophils % 3.1 %; Hematocrit 34.5 % (37.0-47.0); Hemoglobin 10.9 g/dL (11.5-15.3); Lymphocytes # 1.8 10^3/uL (0.8-4.8); Lymphocytes % 17.8 %; Mean Corpuscular HGB Conc 31.6 g/dL (30.0-36.0); Mean Corpuscular Hemoglobin 27.5 pg (28.0-34.0); Mean Corpuscular Volume 87.1 fL (81-99); Mean Platelet Volume 10.1 fL (7.4-10.4); Monocytes # 0.5 10^3/uL (0.2-0.9); Neutrophils # 7.25 10^3/uL (1.8-7.7); Neutrophils % 73.1 %; Nucleated Red Blood Cells % 0 %; Platelet Count 131 10^3/cmm (130-400); Red Blood Count 3.96 10^6/uL (4.1-5.3); Red Cell Distribution Width 19.8 % (12.1-15.1); White Blood Count 9.9 10^3/uL (4.0-10.0)
[2020-05-30 14:17] LABS: INR 1.01 (0.8-1.2)
[2020-05-30 14:20] LABS: D Dimer 1.39 ug/mIFEU (0-0.59)
[2020-05-30 14:39] LABS: NT Pro B Type Natriuretic Pept 594 pg/mL (0-125); Procalcitonin 0.17 ng/mL (0-0.5)
[2020-05-30 14:50] LABS: Alanine Aminotransferase 18 U/L (0-33); Albumin Level 2.9 g/dL (3.5-5.2); Alkaline Phosphatase 169 IU/L (35-105); Anion Gap 11.2 (5-19); Aspartate Amino Transferase 20 U/L (0-32); Blood Urea Nitrogen 9 mg/dL (6-20); C Reactive Protein 10.4 mg/L (0.0-4.9); Calcium 8.6 mg/dL (8.5-10.5); Carbon Dioxide 26 mmol/L (22-29); Chloride 103 mmol/L (98-107); Creatine Phosphokinase 34 U/L (26-192); Glomerular Filtration Rate 105.4 mL/min (90-130); Glucose 136 mg/dL (65-115); Magnesium 1.7 mg/dL (1.7-2.3); Osmolality Calculated 285 mOsm/kg (285-295); Phosphorus 2.6 mg/dL (2.5-4.5); Potassium 3.2 mmol/L (3.5-5.1); Sodium 137 mmol/L (136-145); Total Bilirubin 0.7 mg/dL (0.15-1.2); Total Protein 5.9 g/dL (6.6-8.7)
--- NOTE | 2020-05-30 14:57 | P.PN_ITS ---
Subjective Subjective: Interval history: Patient had a difficult night, she removed her PICC line, removed several IVs, was agitated with the nurses Patient this morning does not know what happened overnight, she does not know why she remove the IV, denies feeling anxious, she this morning has no real complaints, she is alert to person, place, does not know the president, but does eventually remember them by then one of the election, does not know the year, is having episodes of confusion, but with redirection answers questions appropriately, does have poor eye contact I was adamant with patient that she knew should not remove the current IV that she has in place, plan on doing a lumbar puncture tomorrow Still waiting on morning labs Vitals/I&O/Wt Last Vital Signs Temp 98.4 F 05/30/20 08:00 Pulse 86 05/30/20 12:00 Resp 20 H 05/30/20 12:00 BP 137/69 05/30/20 12:00 Pulse Ox 96 05/30/20 12:00 05/29/20 05/30/20 05/30/20 22:59 06:59 14:59 Intake Total 499.0909 / 939.0909 1120 / 2059.0909 720 / 720 Output Total 100 / 100 600 / 600 Balance 399.0909 / 839.0909 1120 / 1959.0909 120 / 120 Physical Exam Const: COMMON NORMALS: no acute distress ORIENTATION/CONSCIOUSNESS: Yes awake, Yes oriented to person, Yes oriented to place and Yes confused; not oriented to time HENMT: COMMON NORMALS: normocephalic HEAD & SCALP: normocephalic Neck/C-Spine: COMMON NORMALS: no JVD Resp: COMMON NORMALS: normal respiratory effort, No retractions, No use of accessory muscles and clear to auscultation bilaterally AUSCULTATION: clear to auscultation bilaterally Cardio: COMMON NORMALS: no JVD, regular rate, regular rhythm, S1 normal heart sound present and S2 normal heart sound present RATE: regular rate RHYTHM: regular rhythm HEART SOUNDS: S1 normal heart sound present and S2 normal heart sound present GI: COMMON NORMALS: Normal to inspection, nondistended, normoactive bowel sounds present, Soft to palpation, non-tender, No hepatosplenomegaly present, no masses and no bruits PALPATION: Yes Soft to palpation and Yes No hepatosplenomegaly present Extremity: COMMON NORMALS: capillary refill normal, no clubbing, cyanosis or edema, no calf tenderness and no pedal edema Neuro: SENSORIUM/ORIENTATION: Yes oriented to person, Yes oriented to place and No oriented to time Psych: COMMON NORMALS: mental status grossly normal Data : 05/30/20 13:22 05/30/20 13:22 Micro: Microbiology 05/28/20 17:12 Urine Culture - Preliminary Urine,Voided 05/28/20 15:28 Blood Culture - Preliminary Blood NEGATIVE TO DATE 05/28/20 15:24 Blood Culture - Preliminary Blood NEGATIVE TO DATE A&P Assessment and plan (1) Altered mental status: -Immunocompromised state given chronic steroids, Cosentyx, hydroxychloroquine -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 Valtrex, on 7 days of cefepime as outpatient -Is on multiple pain medications including oxycodone, gabapentin, tramadol, baclofen, Cymbalta, trazodone -MRI brain shows:There is significant progression of the confluent periventric ular white matter T2 and FLAIR signal hyperintensity since 2017. Most significant around the occipital horns and greatest on the LEFT Increased T2 signal in the yana bilaterally is also new since the prior study. PLAN: -I went over the case with Dr. Vann, given her young age, white blood cell count of 9.9, persistent confusion despite antibiotics and antivirals, patient requires a lumbar puncture -Patient is adamant that she did not take Eliquis since hospital discharge, I confirmed this with the -Patient did take aspirin 81 mg this morning -Unfortunately patient took a cilostazol yesterday, Dr. Sr wants it held for 48 hours, discontinue for now, -Plan on performing lumbar puncture on -advised that there is risk of bleeding/spinal cord bleeding associate with lum bar puncture, advised risk and benefits, voiced understanding, all questions answered, agreed to proceed -Did have an EEG, Dr. Vann read it, looks unremarkable -Continue acyclovir 1 g every 8 hours -Continue cefepime 2 g every 12 hours -LP will be performed on -We will discuss MRI results with neurology on Monday -I will hold all her pain medications, monitor mentation -Continue neurochecks -Hold all blood thinners, hold all antiplatelet agents -Full code -SCDs for DVT prophylaxis -Patient was advised to not remove IVs, Ativan as needed for anxiety Status: Acute Qualifiers: Altered mental status type: disorientation Qualified Code(s): R41.0 - Disorientation, unspecified (2) Immunocompromised: Status: Acute (3) Chronic anticoagulation: Held since hospital discharge according to patient and Status: Acute (4) Portal vein thrombosis: On chronic anticoagulation with Eliquis, held since hospital discharge Status: Acute (5) COVID-19: Finished remdesivir course Status: Acute (6) Diabetes: -Continue home insulin, low-dose sliding scale Status: Acute (7) Hypoglycemia: Did have hypoglycemic episodes overnight, currently on D5 normal saline Status: Acute Additional A&P Information Plan for today MRI of the brain, hold all sedating medications, for hypoglycemia D5 normal saline started, encourage oral hydration Attestations Medical Necessity Statement*: Requires hospitalization for altered mental status, concerns for meningitis Coding Level of Care Code Acute F[employer] And Wellness Coordinator for Ayshag Fwd Diagnoses Altered mental status R41.0 Altered mental status type: disorientation Immunocompromised D84.9 Chronic anticoagulation Z79.01 Portal vein thrombosis I81 COVID-19 U07.1 Diabetes E11.9 Hypoglycemia E16.2
[2020-05-30] MEDS: oxyCODONE 5 mg IR Tab/Cap 15 MG PO (16:37)
[2020-05-30 17:15] LABS: Glucose Point of Care 70 mg/dL (70-110)
[2020-05-30 20:47] LABS: Glucose Point of Care 174 mg/dL (70-110)
[2020-05-30] MEDS: baclofen 10 mg Tablet 20 MG PO (21:51)
[2020-05-30] MEDS: atorvastatin 40 mg Tablet 80 MG PO (21:52)
[2020-05-30] MEDS: trazodone 50 mg Tablet PO (21:52)
[2020-05-30] MEDS: ropinirole 2 mg Tablet PO (21:53)
[2020-05-31] VITALS (9 sets, daily range): BP systolic 124–144; BP diastolic 62–83; PULSE 70–84; RESP 16–20; TEMP 36.6–37.1; O2SAT 92–96
[2020-05-31] MEDS: acyclovir 1,000 MG in sodium chloride 0.9% (100 ml) 100 ML 120 MG IV ×3 (01:00→21:23)
--- NOTE | 2020-05-31 01:53 | PC.NURSE ---
Patient requested to her male nurse Mauri that a female staff member assist her to the bathroom. This nurse disconnected pt from IV line and assisted pt to the bathroom, pt voided 100 mls clear yellow urine, nurse assisted pt back to bed and reconnected IV line, PT requested fresh ice water and another blanket. Nurse brought pt the ice water and blanket from the warmer. Pt thanked nurse and stated she was feeling much better tonight.
[2020-05-31] MEDS: dextrose 5%-sod chloride 0.45% 1,000 ML 75 ML IV (05:51)
[2020-05-31 07:20] LABS: Basophils # 0.1 10^3/uL (0.0-0.1); Basophils % 0.8 %; Eosinophils # 0.4 10^3/uL (0.0-0.8); Eosinophils % 5.1 %; Hematocrit 32.1 % (37.0-47.0); Lymphocytes # 2.5 10^3/uL (0.8-4.8); Lymphocytes % 33.1 %; Mean Corpuscular HGB Conc 31.2 g/dL (30.0-36.0); Mean Corpuscular Hemoglobin 27.4 pg (28.0-34.0); Mean Corpuscular Volume 87.9 fL (81-99); Mean Platelet Volume 11.4 fL (7.4-10.4); Monocytes # 0.6 10^3/uL (0.2-0.9); Monocytes % 8.2 %; Neutrophils # 3.89 10^3/uL (1.8-7.7); Neutrophils % 52.3 %; Nucleated Red Blood Cells % 0 %; Platelet Count 134 10^3/cmm (130-400); Red Blood Count 3.65 10^6/uL (4.1-5.3); White Blood Count 7.4 10^3/uL (4.0-10.0)
[2020-05-31 07:31] LABS: Glucose Point of Care 208 mg/dL (70-110)
[2020-05-31 07:40] LABS: INR 0.99 (0.8-1.2)
[2020-05-31 07:43] LABS: D Dimer 1.45 ug/mIFEU (0-0.59)
--- NOTE | 2020-05-31 07:50 | PC.NURSE ---
Patient to X-ray at this time.
--- NOTE | 2020-05-31 08:00 | FL_ITS ---
WS: [id number] LUMBAR PUNCTURE UNDER FLUOROSCOPY: OBTAIN CSF FOR ANALYSIS HISTORY: ams COMPARISON: None available. FLUOROSCOPY TIME: 0.4 minutes. Procedure, complications, and risk and benefits explained to the patient. Consent was obtained. Recen t laboratory work and medication are reviewed prior to procedure. Skin over the lumbar is cleansed with ChloraPrep and anesthetized with 1% buffered lidocaine. Access into the thecal sac is achieved. CSF is removed in a sterile manner and placed in the sterile tubes. Approximately 12 ml is removed without difficulty. Removal of the CSF with slow. Patient may be dehyd rated. Fluid was clear. No complications are encountered. CSF this into the laboratory for analysis as requested. FL/FL guided lumbarpunc dx* [id number] IMPRESSION: Uncomplicated lumbar puncture for CSF. Fluid collected in a sterile manner and sent for analysis as requested.
[2020-05-31] MEDS: potassium chloride ER 10 mEq Tablet 40 MEQ PO (09:15)
[2020-05-31] MEDS: pantoprazole DR 40 mg Tablet PO (09:16)
[2020-05-31] MEDS: ascorbic acid 500 mg Tablet PO (09:16)
[2020-05-31] MEDS: zinc gluconate 50 mg Tablet PO (09:16)
[2020-05-31] MEDS: metoprolol tartrate 25 mg Tablet 12.5 MG PO ×2 (09:17→17:37)
[2020-05-31] MEDS: isosorbide dinitrate 20 mg Tablet 15 MG PO ×2 (09:17→17:37)
[2020-05-31] MEDS: nicotine 21 mg Patch 1 PATCH TRANSDERMA (09:18)
[2020-05-31] MEDS: oxyCODONE 5 mg IR Tab/Cap 15 MG PO ×2 (09:22→21:22)
[2020-05-31 10:23] LABS: NT Pro B Type Natriuretic Pept 360 pg/mL (0-125); Procalcitonin 0.14 ng/mL (0-0.5)
[2020-05-31 10:34] LABS: Alanine Aminotransferase 41 U/L (0-33); Albumin Level 3.2 g/dL (3.5-5.2); Alkaline Phosphatase 195 IU/L (35-105); Anion Gap 13.7 (5-19); Aspartate Amino Transferase 88 U/L (0-32); Blood Urea Nitrogen 6 mg/dL (6-20); C Reactive Protein 6.2 mg/L (0.0-4.9); Calcium 8.6 mg/dL (8.5-10.5); Carbon Dioxide 25 mmol/L (22-29); Chloride 104 mmol/L (98-107); Creatine Phosphokinase 44 U/L (26-192); Globulin 3.1 g/dL (1.3-4.6); Glomerular Filtration Rate 105.4 mL/min (90-130); Glucose 182 mg/dL (65-115); Magnesium 1.5 mg/dL (1.7-2.3); Osmolality Calculated 290 mOsm/kg (285-295); Phosphorus 3.1 mg/dL (2.5-4.5); Potassium 3.7 mmol/L (3.5-5.1); Sodium 139 mmol/L (136-145); Total Bilirubin 0.8 mg/dL (0.15-1.2); Total Protein 6.3 g/dL (6.6-8.7)
[2020-05-31] MEDS: cefepime 2,000 MG in sodium chloride 0.9% (plus) 50 ML 100 MG IV ×2 (10:34→22:36)
[2020-05-31 11:48] LABS: Red Blood Cell CSF 0 10^3/uL (0-0); White Blood Cell CSF 0 /uL (0-5)
[2020-05-31 11:56] LABS: Mononuclear WBC CSF % 0 % (50-90); Polynuclear WBC CSF % 0 % (0-10)
[2020-05-31 11:58] LABS: Appearance CSF CLEAR (CLEAR); Color CSF COLORLESS (COLORLESS)
[2020-05-31 12:06] LABS: Glucose Point of Care 235 mg/dL (70-110)
[2020-05-31 12:17] LABS: Glucose CSF 93 mg/dL (40-70); Total Protein CSF 107 mg/dL (15-45)
--- NOTE | 2020-05-31 13:00 | PC.NURSE ---
Patient's acyclovir did not finish until 1300 because her IV infiltrated while it was running and a new one had to be started.
--- NOTE | 2020-05-31 14:30 | P.PN_ITS ---
Subjective Subjective: Interval history: This morning patient was examined after a lumbar puncture, she is a bit frustrated about being here in the hospital, is anxious about her test results, has no complaints, no fevers, chills, no nausea, vomiting, no neck pain, alert oriented x3, answering all questions appropriately, no agitation episodes overnight Vitals/I&O/Wt Last Vital Signs Temp 98.7 F 05/31/20 04:00 Pulse 78 05/31/20 04:00 Resp 16 05/31/20 09:22 BP 138/74 05/31/20 04:00 Pulse Ox 96 05/31/20 04:00 05/30/20 05/31/20 05/31/20 22:59 06:59 14:59 Intake Total 1388.75 / 2158.75 1641.25 / 3800.00 560 / 560 Output Total 900 / 1500 500 / 2000 650 / 650 Balance 488.75 / 658.75 1141.25 / 1800.00 -90 / -90 Physical Exam Const: COMMON NORMALS: no acute distress and patient oriented x3 HENMT: COMMON NORMALS: normocephalic HEAD & SCALP: normocephalic Neck/C-Spine: COMMON NORMALS: no JVD Resp: COMMON NORMALS: normal respiratory effort, No retractions, No use of accessory muscles and clear to auscultation bilaterally AUSCULTATION: clear to auscultation bilaterally Cardio: COMMON NORMALS: no JVD, regular rate, regular rhythm, S1 normal heart sound present and S2 normal heart sound present RATE: regular rate RHYTHM: regular rhythm HEART SOUNDS: S1 normal heart sound present and S2 normal heart sound present GI: COMMON NORMALS: Normal to inspection, nondistended, normoactive bowel sounds present, Soft to palpation, non-tender, No hepatosplenomegaly present, no masses and no bruits PALPATION: Yes Soft to palpation and Yes No hepatosplenomegaly present Extremity: COMMON NORMALS: capillary refill normal, no clubbing, cyanosis or edema, no calf tenderness and no pedal edema Neuro: COMMON NORMALS: patient oriented x3 Psych: COMMON NORMALS: mental status grossly normal Data : 05/31/20 06:30 05/31/20 09:34 Micro: Microbiology 05/31/20 08:18 Gram Stain - Final Cerebrospinal Fluid 11/19/20 17:12 Urine Culture - Final Urine,Voided A&P Assessment and plan (1) Altered mental status: -Immunocompromised state given chronic steroids, Cosentyx, hydroxychloroquine -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 Valtrex, on 7 days of cefepime as outpatient -Is on multiple pain medications including oxycodone, gabapentin, tramadol, baclofen, Cymbalta, trazodone -MRI brain shows:There is significant progression of the confluent periventric ular white matter T2 and FLAIR signal hyperintensity since 2017. Most significant around the occipital horns and greatest on the LEFT Increased T2 signal in the yana bilaterally is also new since the prior study. PLAN: -Status post lumbar puncture today, CSF studies awaited -Resume Eliquis, aspirin, colostomies on 24 hours -We will consult neurology based on CSF studies and MRI as above -Did have an EEG, Dr. Vann read it, looks unremarkable -Continue acyclovir 1 g every 8 hours -Continue cefepime 2 g every 12 hours -We will discuss MRI results with neurology on Monday -Pain medications resumed, monitor mentation -Continue neurochecks -Hold all blood thinners, hold all antiplatelet agents -Full code -SCDs for DVT prophylaxis -Patient was advised to not remove IVs, Ativan as needed for anxiety -Patient removed PICC line during agitation episodes -I did speak to patient and her over the phone, in the patient's presence, all questions answered Status: Acute Qualifiers: Altered mental status type: disorientation Qualified Code(s): R41.0 - Disorientation, unspecified (2) Immunocompromised: Status: Acute (3) Chronic anticoagulation: Held since hospital discharge according to patient and Status: Acute (4) Portal vein thrombosis: On chronic anticoagulation with Eliquis, held since hospital discharge Status: Acute (5) COVID-19: Finished remdesivir course Status: Acute (6) Diabetes: -Continue home insulin, low-dose sliding scale Status: Acute (7) Hypoglycemia: Did have hypoglycemic episodes overnight, currently on D5 normal saline Status: Acute Additional A&P Information Plan for today await LP results, consider de-escalating acyclovir and cefepime Attestations Medical Necessity Statement*: Patient requires hospitalization for altered mental status, concerning for meningitis and encephalitis Coding Level of Care Code Acute 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
[2020-05-31] MEDS: baclofen 10 mg Tablet 20 MG PO (15:21)
[2020-05-31] MEDS: TRAMadol 50 mg Tablet PO (15:21)
[2020-05-31 16:44] LABS: Glucose Point of Care 119 mg/dL (70-110)
[2020-05-31 21:14] LABS: Glucose Point of Care 499 mg/dL (70-110)
[2020-05-31] MEDS: insulin glargine 100 units/1 mL 50 UNIT SUBCUT (21:21)
[2020-05-31] MEDS: trazodone 50 mg Tablet PO (21:23)
[2020-05-31] MEDS: ropinirole 2 mg Tablet PO (21:23)
[2020-05-31] MEDS: atorvastatin 40 mg Tablet 80 MG PO (21:23)
[2020-06-01] VITALS (9 sets, daily range): BP systolic 130–160; BP diastolic 73–97; PULSE 81–91; RESP 16–22; TEMP 36.7–37.2; O2SAT 95–100
[2020-06-01] MEDS: TRAMadol 50 mg Tablet PO ×2 (00:02→21:38)
[2020-06-01] MEDS: acyclovir 1,000 MG in sodium chloride 0.9% (100 ml) 100 ML 120 MG IV ×3 (04:31→21:36)
[2020-06-01 05:07] LABS: Basophils # 0.1 10^3/uL (0.0-0.1); Basophils % 1.3 %; Eosinophils # 0.3 10^3/uL (0.0-0.8); Eosinophils % 4.5 %; Hematocrit 34.9 % (37.0-47.0); Hemoglobin 10.7 g/dL (11.5-15.3); Lymphocytes # 2.1 10^3/uL (0.8-4.8); Lymphocytes % 28.7 %; Mean Corpuscular HGB Conc 30.7 g/dL (30.0-36.0); Mean Corpuscular Hemoglobin 27.6 pg (28.0-34.0); Mean Corpuscular Volume 90.2 fL (81-99); Monocytes # 0.6 10^3/uL (0.2-0.9); Monocytes % 8.5 %; Neutrophils # 4.04 10^3/uL (1.8-7.7); Neutrophils % 56.4 %; Nucleated Red Blood Cells % 0 %; Platelet Count 119 10^3/cmm (130-400); Red Blood Count 3.87 10^6/uL (4.1-5.3); Red Cell Distribution Width 20.7 % (12.1-15.1); White Blood Count 7.2 10^3/uL (4.0-10.0)
[2020-06-01 05:19] LABS: INR 1.01 (0.8-1.2)
[2020-06-01 05:22] LABS: D Dimer 1.39 ug/mIFEU (0-0.59)
[2020-06-01 05:32] LABS: Alanine Aminotransferase 38 U/L (0-33); Albumin Level 3.3 g/dL (3.5-5.2); Alkaline Phosphatase 196 IU/L (35-105); Aspartate Amino Transferase 36 U/L (0-32); Blood Urea Nitrogen 7 mg/dL (6-20); Calcium 8.4 mg/dL (8.5-10.5); Carbon Dioxide 27 mmol/L (22-29); Chloride 106 mmol/L (98-107); Globulin 2.3 g/dL (1.3-4.6); Glomerular Filtration Rate 105.4 mL/min (90-130); Glucose 183 mg/dL (65-115); Magnesium 1.6 mg/dL (1.7-2.3); Osmolality Calculated 295 mOsm/kg (285-295); Phosphorus 3.2 mg/dL (2.5-4.5); Sodium 141 mmol/L (136-145); Total Bilirubin 0.8 mg/dL (0.15-1.2); Total Protein 5.6 g/dL (6.6-8.7)
[2020-06-01 05:40] LABS: C Reactive Protein 3.5 mg/L (0.0-4.9)
[2020-06-01 05:41] LABS: NT Pro B Type Natriuretic Pept 370 pg/mL (0-125); Procalcitonin 0.12 ng/mL (0-0.5)
[2020-06-01] MEDS: oxyCODONE 5 mg IR Tab/Cap 15 MG PO ×2 (05:44→18:23)
[2020-06-01 05:52] LABS: Creatine Phosphokinase 44 U/L (26-192)
[2020-06-01 06:40] LABS: Glucose Point of Care 153 mg/dL (70-110)
[2020-06-01] MEDS: metoprolol tartrate 25 mg Tablet 12.5 MG PO ×2 (08:18→18:14)
[2020-06-01] MEDS: isosorbide dinitrate 20 mg Tablet 15 MG PO ×2 (08:19→18:13)
[2020-06-01] MEDS: apixaban 5 mg Tablet PO ×2 (08:19→18:14)
[2020-06-01] MEDS: ascorbic acid 500 mg Tablet PO (08:20)
[2020-06-01] MEDS: zinc gluconate 50 mg Tablet PO (08:20)
[2020-06-01] MEDS: pantoprazole DR 40 mg Tablet PO (08:20)
[2020-06-01] MEDS: nicotine 21 mg Patch 1 PATCH TRANSDERMA (08:21)
[2020-06-01] MEDS: cefepime 2,000 MG in sodium chloride 0.9% (plus) 50 ML 100 MG IV ×2 (09:31→18:12)
[2020-06-01] MEDS: ondansetron 2 mg/ML SDV 2 mL 4 MG IVP (10:28)
--- NOTE | 2020-06-01 10:32 | CTR_ITS ---
PROCEDURE INFORMATION: Exam: CT Angiography Head With Contrast Exam date and time: 06/01/2020 7:12 PM Age: 49 years old Clinical indication: Other: AMS; Additional info: AMS, concern for vasculitis TECHNIQUE: Imaging protocol: Computed tomography angiography of the head with intravenous contrast. 3D rendering (Not supervised by radiologist): MIP and/or 3D reconstructed images were created by the technologist. Radiation optimization: All CT scans at this facility use at least one of these dose optimization techniques: automated exposure control; mA and/or kV adjustment per patient size (includes targeted exams where dose is matched to clinical indication); or iterative reconstruction. Contrast material: [id number]; Contrast volume: 95 ml; Contrast route: INTRAVENOUS (IV); COMPARISON: CT head wo con* [id number] 05/28/2020 4:14 PM RADIATION DOSE METRICS: Total DLP (mGy-cm): 1187.44 FINDINGS: ANTERIOR CIRCULATION: Right internal carotid artery: There is calcification of the intracranial right internal carotid artery. No significant degrees of stenosis, thrombosis, or occlusion. No evidence of aneurysm. Right middle cerebral artery: Unremarkable. No occlusion or significant stenosis. No aneurysm. Right anterior cerebral artery: Unremarkable. No occlusion or significant stenosis. No aneurysm. Left internal carotid artery: There is calcification of the intracranial left internal carotid artery. No significant degrees of stenosis, thrombosis, or occlusion. No evidence of aneurysm. Left middle cerebral artery: Unremarkable. No occlusion or significant stenosis. No aneurysm. Left anterior cerebral artery: Unremarkable. No occlusion or significant stenosis. No aneurysm. POSTERIOR CIRCULATION: Right vertebral artery: Unremarkable. No occlusion or significant stenosis. No aneurysm. Left vertebral artery: Unremarkable. No occlusion or significant stenosis. No aneurysm. Basilar artery: Unremarkable. No occlusion or significant stenosis. No aneurysm. Right posterior cerebral artery: Unremarkable. No occlusion or significant stenosis. No aneurysm. Left posterior cerebral artery: Unremarkable. No occlusion or significant stenosis. No aneurysm. Other findings: No evidence of vascular irregularity or beading to suggest vasculitis. Brain: There is stable decreased attenuation in cerebral white matter which is nonspecific but may be microvascular change. No loss oviedo-white differentiation or acute territorial infarct evident. No acute hemorrhage. No mass effect or midline shift. CT/CT angio head [id number] IMPRESSION: No vascular stenosis or occlusion. No CTA findings to suggest vasculitis. Radiation Dose CTDIVOL = (mGy): DLP = 1187.44 (mGy-cm)
[2020-06-01 11:31] LABS: Glucose Point of Care 57 mg/dL (70-110)
[2020-06-01] MEDS: dexamethasone 4 mg/mL INJ 6 MG IVP (12:01)
[2020-06-01 12:12] LABS: Erythrocyte Sedimentation Rate 44 mm/hr (0-15)
[2020-06-01 12:18] LABS: Lyme AB Screen <0.90 index
[2020-06-01 14:18] LABS: COMPLEMENT, TOTAL (CH50) >60 U/mL (31-60)
[2020-06-01 16:47] LABS: Glucose Point of Care 70 mg/dL (70-110)
[2020-06-01 16:47] LABS: Glucose Point of Care 54 mg/dL (70-110)
[2020-06-01 16:47] LABS: Glucose Point of Care 293 mg/dL (70-110)
[2020-06-01 16:47] LABS: Glucose Point of Care 309 mg/dL (70-110)
[2020-06-01 16:47] LABS: Glucose Point of Care 146 mg/dL (70-110)
--- NOTE | 2020-06-01 17:05 | P.PN_ITS ---
Subjective Subjective: Interval history: Hospital course, vitals and labs noted. Examination patient sitting comfortably in bed. Complains of occasional occipital headache radiating to neck, nausea with vomiting denies any photophobia. Patient is AO x3 on my examination states when can she go home. Altercations around head. Vitals/I&O/Wt Last Vital Signs Temp 98.9 F 06/01/20 16:00 Pulse 83 06/01/20 16:00 Resp 18 06/01/20 16:00 BP 145/73 06/01/20 16:00 Pulse Ox 100 06/01/20 16:00 06/01/20 06/01/20 06/01/20 06:59 14:59 22:59 Intake Total 170 / 1180 960 / 960 Balance 170 / 230 960 / 960 Physical Exam Narrative: EXAM NARRATIVE: General: No acute distress, AO x3, complaining of nausea, no photophobia HEENT: PERRLA, pupils bilaterally equal and reactive Chest: Normal vesicular breath sounds, no added sounds, equal good air entry bilaterally CVS: S1-S2 regular, no murmurs, no tachycardia, no gallops, no rubs Abdomen: Soft, nontender, no organomegaly, bowel sounds present Neuro: No focal deficits, no facial deformity, AO x3, power 5/5 in all limbs Data : 06/01/20 04:47 06/01/20 04:47 Micro: Microbiology 05/31/20 08:18 Gram Stain - Final Cerebrospinal Fluid CSF Culture - Preliminary A&P Assessment and plan (1) Altered mental status: Status: Acute Qualifiers: Altered mental status type: disorientation Qualified Code(s): R41.0 - Disorientation, unspecified (2) Immunocompromised: Status: Acute (3) Chronic anticoagulation: Held since hospital discharge according to patient and Status: Acute (4) Portal vein thrombosis: On chronic anticoagulation with Eliquis, held since hospital discharge Status: Acute (5) COVID-19: Finished remdesivir course Status: Acute (6) Diabetes: -Continue home insulin, low-dose sliding scale Status: Acute (7) Hypoglycemia: Did have hypoglycemic episodes overnight, currently on D5 normal saline Status: Acute Additional A&P Information Altered mental status: Patient has recent hospitalization when she was treated for meningoencephalitis though her lumbar puncture could not be done because she was on Eliquis. In 72 hours on steroids, cefepime and acyclovir. Her mentation improved so the lumbar questions were deferred and was discharged on cefepime and Valtrex. She came back to the hospital in 4 days for recurrent confusion. Lumbar puncture done yesterday consistent with protein of 107 which is elevated and glucose of 93 which is mildly elevated as well. WBC 0. Head imaging appreciated. Do the lumbar puncture was done being on Valtrex and cefepime. Lumbar puncture for now consistent with possible viral meningitis because of elevated proteins. We will await culture results. For now we will continue with cefepime but will increase to every 8 hour as a creatinine clearance has improved. Continue to monitor results of lumbar puncture regarding HSV, Lyme's, cryptococcal antigen. Add mycobacteria and cryptococcal antigen to Continue with acyclovir 1 g IV every 8 hour. Start patient on dexamethasone 6 mg daily. Vitamin C, zinc. Advair, Spiriva. Case discussed with Dr. Vann. She is concerned for possible central myeloid angiopathy given patient's age and presentation. She advises EEG and CTA head and neck to rule out vasculitis. Check ESR, CRP. We will hold off on starting antiseizure medications for now. Start patient on Zydis as per Dr. Vann for agitation. Chronic immunosuppression: Patient is chronically on steroids, Actemra. Continue with dexamethasone as above. Hypertension: Goal blood pressure less than 140/90 mmHg. Continue to monitor. Home dose of Lopressor. Last echocardiogram from February 2020 shows an EF of 55% grade 1 diastolic dysfunction, moderate TR, mild MR with RVSP of 41 mmHg. Normal Lexisc and March 2020. Type 2 diabetes mellitus: Glargine 15 units at bedtime. Insulin sliding scale at high-dose protocol. Portal vein thrombosis: Continue with Eliquis at home dose. LFTs appreciated. Continue other chronic medications. Will change medication as per clinical picture. Carb consistent cardiac diet. Full code. Eliquis for help with DVT prophylaxis. Attestations Medical Necessity Statement*: She needs further hospitalization for management of altered mental status, possible meningitis. Time Spent in Patient Care: Greater than 35 minutes (>than 50% of time spent in counselling and/or direct pt care on unit) . 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
--- NOTE | 2020-06-01 19:30 | PC.NURSE ---
REPORTED BP TO NURSE!
[2020-06-01 20:59] LABS: Glucose Point of Care 307 mg/dL (70-110)
[2020-06-01] MEDS: OLANZapine 5 mg ODT 2.5 MG PO (21:36)
[2020-06-01] MEDS: ropinirole 2 mg Tablet PO (21:37)
[2020-06-01] MEDS: atorvastatin 40 mg Tablet 80 MG PO (21:37)
[2020-06-01] MEDS: trazodone 50 mg Tablet PO (21:38)
[2020-06-01] MEDS: insulin glargine 100 units/1 mL 35 UNIT SUBCUT (21:39)
[2020-06-02] VITALS (10 sets, daily range): BP systolic 131–159; BP diastolic 77–93; PULSE 80–93; RESP 15–20; TEMP 36.6–36.8; O2SAT 95–100
[2020-06-02 03:35] LABS: Glucose Point of Care 191 mg/dL (70-110)
[2020-06-02] MEDS: cefepime 2,000 MG in sodium chloride 0.9% (plus) 50 ML 100 MG IV ×3 (03:47→18:14)
[2020-06-02] MEDS: acyclovir 1,000 MG in sodium chloride 0.9% (100 ml) 100 ML 120 MG IV ×3 (04:12→19:46)
[2020-06-02 05:01] LABS: Basophils % 0.4 %; Eosinophils % 0.2 %; Hematocrit 33.2 % (37.0-47.0); Hemoglobin 10.4 g/dL (11.5-15.3); Lymphocytes # 1.5 10^3/uL (0.8-4.8); Mean Corpuscular HGB Conc 31.3 g/dL (30.0-36.0); Mean Corpuscular Hemoglobin 27.8 pg (28.0-34.0); Mean Corpuscular Volume 88.8 fL (81-99); Mean Platelet Volume 10.3 fL (7.4-10.4); Monocytes # 0.6 10^3/uL (0.2-0.9); Monocytes % 5.6 %; Neutrophils # 7.95 10^3/uL (1.8-7.7); Neutrophils % 78.3 %; Nucleated Red Blood Cells % 0 %; Platelet Count 121 10^3/cmm (130-400); Red Blood Count 3.74 10^6/uL (4.1-5.3); Red Cell Distribution Width 20.9 % (12.1-15.1); White Blood Count 10.2 10^3/uL (4.0-10.0)
[2020-06-02 05:38] LABS: Alanine Aminotransferase 29 U/L (0-33); Albumin Level 3.1 g/dL (3.5-5.2); Alkaline Phosphatase 178 IU/L (35-105); Anion Gap 13.1 (5-19); Aspartate Amino Transferase 18 U/L (0-32); Blood Urea Nitrogen 11 mg/dL (6-20); Calcium 8.9 mg/dL (8.5-10.5); Carbon Dioxide 26 mmol/L (22-29); Chloride 103 mmol/L (98-107); Glomerular Filtration Rate 105.4 mL/min (90-130); Glucose 208 mg/dL (65-115); Magnesium 1.5 mg/dL (1.7-2.3); Osmolality Calculated 291 mOsm/kg (285-295); Phosphorus 2.6 mg/dL (2.5-4.5); Potassium 4.1 mmol/L (3.5-5.1); Sodium 138 mmol/L (136-145); Total Bilirubin 0.8 mg/dL (0.15-1.2); Total Protein 6.1 g/dL (6.6-8.7)
[2020-06-02] MEDS: oxyCODONE 5 mg IR Tab/Cap 15 MG PO ×2 (05:47→19:45)
[2020-06-02 06:53] LABS: Glucose Point of Care 211 mg/dL (70-110)
[2020-06-02] MEDS: nicotine 21 mg Patch 1 PATCH TRANSDERMA (08:43)
[2020-06-02] MEDS: apixaban 5 mg Tablet PO ×2 (08:43→18:15)
[2020-06-02] MEDS: metoprolol tartrate 25 mg Tablet 12.5 MG PO ×2 (08:44→18:16)
[2020-06-02] MEDS: ascorbic acid 500 mg Tablet PO (08:44)
[2020-06-02] MEDS: isosorbide dinitrate 20 mg Tablet 15 MG PO ×2 (08:44→18:15)
[2020-06-02] MEDS: pantoprazole DR 40 mg Tablet PO (08:44)
[2020-06-02] MEDS: OLANZapine 5 mg ODT 2.5 MG PO ×2 (08:44→18:16)
[2020-06-02] MEDS: zinc gluconate 50 mg Tablet PO (08:44)
[2020-06-02] MEDS: TRAMadol 50 mg Tablet PO (09:20)
[2020-06-02 10:18] LABS: COMPLEMENT COMPONENT C3C 139 mg/dL (83-193); COMPLEMENT COMPONENT C4C 33 mg/dL (15-57)
[2020-06-02] MEDS: aspirin 81 mg EC Tablet PO (10:48)
[2020-06-02] MEDS: amlodipine 5 mg Tablet PO (10:48)
[2020-06-02 11:50] LABS: Glucose Point of Care 292 mg/dL (70-110)
[2020-06-02] MEDS: dexamethasone 4 mg/mL INJ 6 MG IVP (12:03)
[2020-06-02] MEDS: ALPRAZolam 0.5 mg Tablet PO (12:56)
--- NOTE | 2020-06-02 13:06 | PC.RESP ---
SMOKING CESSATION AND PULMONARY REHAB INFORMATION SENT TO PATIENT.
--- NOTE | 2020-06-02 14:10 | PM.MISC ---
Miscellaneous Note Purpose of Documentation: EEG Note: ORDERING PHYSICIAN: Dr. Irving Alva. REASON FOR STUDY: Altered mental status. STUDY: This was a 21 channel digital electroencephalogram performed using the 10-20 international system of electrode placement. This study was non-sleep deprived and the patient was awake and drowsy. Photic stimulation and hyperventilation were included. FINDINGS: The patient appeared to be drowsy or asleep through most of the tracing. There were high voltage runs of delta at 3 to 4 Hz. She was awakened for photic stimulation and posterior alpha at 9 to 10 Hz was seen bilaterally and symmetrically. During waking activity there was jaw contraction with resultant muscle artifact. Upon cessation of photic stimulation she immediately returned to a drowsy state with return of slow-wave activity centrally. Frontal intermittent rhythmic delta activity (FIRDA) was seen. Hyperventilation was attempted but she was poorly compliant and again fell asleep. IMPRESSION: This patient had an EEG in February that was characterized by constant movement and poor quality EEG. Today she was more still, although she still had muscle artifact in the jaws during waking activity. She was either drowsy or asleep through most of the tracing. This record suggests excessive sleepiness or toxic or metabolic encephalopathy. No specific sign of epileptogenic was appreciated. Duration of EE.1
[2020-06-02 14:24] LABS: ANA SCREEN, IFA NEGATIVE (NEGATIVE)
[2020-06-02 15:22] LABS: CENTROMERE B ANTIBODY <1.0 NEG AI (<1.0 NEG); JO-1 ANTIBODY <1.0 NEG AI (<1.0 NEG); RNP ANTIBODY <1.0 NEG AI (<1.0 NEG); SCL-70 ANTIBODY <1.0 NEG AI (<1.0 NEG); SJOGREN'S ANTIBODY (SS-A) <1.0 NEG AI (<1.0 NEG); SM ANTIBODY <1.0 NEG AI (<1.0 NEG); SS-B <1.0 NEG AI (<1.0 NEG)
[2020-06-02] MEDS: gabapentin 300 mg Capsule PO ×2 (15:56→21:07)
[2020-06-02 16:53] LABS: THYROID PEROXIDASE ANTIBODIES <1 IU/mL (<9)
--- NOTE | 2020-06-02 16:58 | P.PN_ITS ---
Subjective Subjective: Interval history: No acute events overnight. Patient has remained calm and stable. On examination patient is able to have complete conversation with me is cheerful wants to go home. Denies any nausea, vomiting, headache. States headache is better. Had EEG and CTA done yesterday. Had a long discussion with patient regarding need for patient to be on medication for 2 more days to finish a course of treatment for viral meningitis. Also discussed that as patient recently had a PICC line through the past to avoid PICC line if he can. Discussed the same with patient's on phone while in the room. For now patient has agreed to stay in the hospital for 2 more days to finish the course of 10 days in order. Patient has remained hemodynamic stable and afebrile. Vitals/I&O/Wt Last Vital Signs Temp 98.0 F 06/02/20 16:00 Pulse 90 06/02/20 16:00 Resp 18 06/02/20 16:00 BP 131/81 06/02/20 16:00 Pulse Ox 96 06/02/20 16:00 06/02/20 06/02/20 06/02/20 06:59 14:59 22:59 Intake Total 170 / 1420 960 / 960 Balance 170 / 1020 960 / 960 Physical Exam Narrative: EXAM NARRATIVE: General: No acute distress, AO x3, complaining of nausea, no photophobia HEENT: PERRLA, pupils bilaterally equal and reactive Chest: Normal vesicular breath sounds, no added sounds, equal good air entry bilaterally CVS: S1-S2 regular, no murmurs, no tachycardia, no gallops, no rubs Abdomen: Soft, nontender, no organomegaly, bowel sounds present Neuro: No focal deficits, no facial deformity, AO x3, power 5/5 in all limbs Data : 06/02/20 04:19 06/02/20 04:19 Micro: Microbiology 05/28/20 15:28 Blood Culture - Final Blood NO GROWTH AFTER 5 DAYS 05/28/20 15:24 Blood Culture - Final Blood NO GROWTH AFTER 5 DAYS 05/31/20 08:18 Gram Stain - Final Cerebrospinal Fluid CSF Culture - Preliminary A&P Assessment and plan (1) Altered mental status: Status: Acute Qualifiers: Altered mental status type: disorientation Qualified Code(s): R41.0 - Disorientation, unspecified (2) Immunocompromised: Status: Acute (3) Chronic anticoagulation: Held since hospital discharge according to patient and Status: Acute (4) Portal vein thrombosis: On chronic anticoagulation with Eliquis, held since hospital discharge Status: Acute (5) COVID-19: Finished remdesivir course Status: Acute (6) Diabetes: -Continue home insulin, low-dose sliding scale Status: Acute (7) Hypoglycemia: Did have hypoglycemic episodes overnight, currently on D5 normal saline Status: Acute Additional A&P Information Altered mental status: Patient has recent hospitalization when she was treated for meningoencephalitis though her lumbar puncture could not be done because she was on Eliquis. In 72 hours on steroids, cefepime and acyclovir. Her mentation improved so the lumbar questions were deferred and was discharged on cefepime and Valtrex. She came back to the hospital in 4 days for recurrent confusion. Lumbar puncture done yesterday consistent with protein of 107 which is elevated and glucose of 93 which is mildly elevated as well. WBC 0. Head imaging appreciated. Though the lumbar puncture was done being on Valtrex and cefepime. Lumbar puncture for now consistent with possible viral meningitis because of elevated proteins. Culture results negative for now. Cryptococcal antigen negative. Continue to monitor results of lumbar puncture regarding HSV, Lyme's, cryptococcal antigen. Continue cefepime 2 g IV every 8 hours. Continue with acyclovir 1 g IV every 8 hour. Continue with dexamethasone 6 mg daily. We will continue acyclovir for 2 more days to finish the course of antiviral medications. Patient had a PICC line which was yanked out earlier this admission. We will try to avoid another PICC line for just 2 days. We will consult ID as patient has failed outpatient Valtrex for viral meningitis and also to decide about long-term medication as an outpatient post discharge. Vitamin C, zinc. Advair, Spiriva. Case discussed with Dr. Vann. She is concerned for possible central myeloid angiopathy given patient's age and presentation. ESR, CRP results appreciated. CT results appreciated. EEG as per Dr. Vann consistent with slow brain wave functionality most likely because of over medications from baclofen, gabapentin. Dr. Vann recommends decreasing the medication as possible and follow-up for with patient in next 1 week. We will hold off on starting antiseizure medications for now. Start patient on Zydis as per Dr. Vann for agitation. Chronic immunosuppression: Patient is chronically on steroids, Actemra. Continue with dexamethasone as above. Hypertension: Goal blood pressure less than 140/90 mmHg. Continue to monitor. Home dose of Lopressor. Last echocardiogram from February 2020 shows an EF of 55% grade 1 diastolic dysfunction, moderate TR, mild MR with RVSP of 41 mmHg. Normal Lexisc and March 2020. Type 2 diabetes mellitus: Glargine 15 units at bedtime. Insulin sliding scale at high-dose protocol. Portal vein thrombosis: Continue with Eliquis at home dose. LFTs appreciated. Continue other chronic medications. Will change medication as per clinical picture. Carb consistent cardiac diet. Full code. Eliquis for help with DVT prophylaxis. Plan for today: Continue IV cefepime and acyclovir to finish a 10-day course for meningitis most likely viral though cannot rule out bacterial as patient was already on antibiotics for more than 2 weeks while she had lumbar puncture. Continue with IV steroids. Most likely discharge on after finishing the course. Attestations Medical Necessity Statement*: Requires further hospitalization for management of altered mental status most likely because of viral meningitis to finish IV acyclovir course. Time Spent in Patient Care: Greater than 35 minutes (>than 50% of time spent in counselling and/or direct pt care on unit) . 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
[2020-06-02 17:07] LABS: Glucose Point of Care 259 mg/dL (70-110)
[2020-06-02] MEDS: HYDROcodone-acetaminophen 5-325 mg Tablet 1 TAB PO (18:21)
--- NOTE | 2020-06-02 18:46 | PC.NURSE ---
shift summary no changes this shift.
[2020-06-02] MEDS: insulin glargine 100 units/1 mL 50 UNIT SUBCUT (21:06)
[2020-06-02] MEDS: ropinirole 2 mg Tablet PO (21:07)
[2020-06-02] MEDS: atorvastatin 40 mg Tablet 80 MG PO (21:07)
[2020-06-02] MEDS: trazodone 50 mg Tablet PO (21:07)
[2020-06-02 21:24] LABS: Glucose Point of Care 445 mg/dL (70-110)
[2020-06-03] VITALS (9 sets, daily range): BP systolic 121–138; BP diastolic 74–84; PULSE 72–86; RESP 16–20; TEMP 36.5–36.8; O2SAT 90–99
[2020-06-03 01:23] LABS: Glucose Point of Care 367 mg/dL (70-110)
[2020-06-03] MEDS: TRAMadol 50 mg Tablet PO ×2 (01:24→21:12)
[2020-06-03] MEDS: ALPRAZolam 0.5 mg Tablet PO (01:24)
[2020-06-03] MEDS: cefepime 2,000 MG in sodium chloride 0.9% (plus) 50 ML 100 MG IV ×3 (02:59→17:47)
[2020-06-03] MEDS: baclofen 10 mg Tablet PO (03:00)
[2020-06-03] MEDS: acyclovir 1,000 MG in sodium chloride 0.9% (100 ml) 100 ML 120 MG IV ×3 (04:18→21:10)
[2020-06-03] MEDS: HYDROcodone-acetaminophen 5-325 mg Tablet 1 TAB PO ×2 (04:18→18:22)
[2020-06-03 05:38] LABS: Basophils % 0.2 %; Eosinophils % 0.1 %; Hematocrit 33.2 % (37.0-47.0); Hemoglobin 10.1 g/dL (11.5-15.3); Lymphocytes # 1.6 10^3/uL (0.8-4.8); Lymphocytes % 18.3 %; Mean Corpuscular HGB Conc 30.4 g/dL (30.0-36.0); Mean Corpuscular Hemoglobin 27.8 pg (28.0-34.0); Mean Corpuscular Volume 91.5 fL (81-99); Mean Platelet Volume 10.2 fL (7.4-10.4); Monocytes # 0.6 10^3/uL (0.2-0.9); Monocytes % 6.9 %; Neutrophils # 6.36 10^3/uL (1.8-7.7); Neutrophils % 74.3 %; Nucleated Red Blood Cells % 0 %; Platelet Count 124 10^3/cmm (130-400); Red Blood Count 3.63 10^6/uL (4.1-5.3); Red Cell Distribution Width 22.4 % (12.1-15.1); White Blood Count 8.6 10^3/uL (4.0-10.0)
[2020-06-03 05:51] LABS: Alanine Aminotransferase 21 U/L (0-33); Albumin Level 2.9 g/dL (3.5-5.2); Alkaline Phosphatase 154 IU/L (35-105); Aspartate Amino Transferase 11 U/L (0-32); Blood Urea Nitrogen 15 mg/dL (6-20); Carbon Dioxide 25 mmol/L (22-29); Chloride 100 mmol/L (98-107); Globulin 2.7 g/dL (1.3-4.6); Glomerular Filtration Rate 105.4 mL/min (90-130); Glucose 464 mg/dL (65-115); Osmolality Calculated 303 mOsm/kg (285-295); Phosphorus 3.7 mg/dL (2.5-4.5); Sodium 136 mmol/L (136-145); Total Bilirubin 0.6 mg/dL (0.15-1.2); Total Protein 5.6 g/dL (6.6-8.7)
[2020-06-03 05:58] LABS: Anion Gap 15.4 (5-19); Potassium 4.4 mmol/L (3.5-5.1)
[2020-06-03 06:00] LABS: Calcium 8.7 mg/dL (8.5-10.5); Magnesium 1.5 mg/dL (1.7-2.3)
[2020-06-03 06:48] LABS: Glucose Point of Care 473 mg/dL (70-110)
[2020-06-03] MEDS: isosorbide dinitrate 20 mg Tablet 15 MG PO ×2 (08:31→18:21)
[2020-06-03] MEDS: amlodipine 5 mg Tablet PO (08:31)
[2020-06-03] MEDS: gabapentin 300 mg Capsule PO ×3 (08:32→21:12)
[2020-06-03] MEDS: aspirin 81 mg EC Tablet PO (08:32)
[2020-06-03] MEDS: apixaban 5 mg Tablet PO ×2 (08:32→17:46)
[2020-06-03] MEDS: ascorbic acid 500 mg Tablet PO (08:32)
[2020-06-03] MEDS: metoprolol tartrate 25 mg Tablet 12.5 MG PO ×2 (08:33→17:47)
[2020-06-03] MEDS: OLANZapine 5 mg ODT 2.5 MG PO ×2 (08:33→18:21)
[2020-06-03] MEDS: nicotine 21 mg Patch 1 PATCH TRANSDERMA (08:33)
[2020-06-03] MEDS: zinc gluconate 50 mg Tablet PO (08:34)
[2020-06-03] MEDS: pantoprazole DR 40 mg Tablet PO (08:34)
[2020-06-03] MEDS: oxyCODONE 5 mg IR Tab/Cap 15 MG PO (08:35)
[2020-06-03] MEDS: predniSONE 20 mg Tablet 40 MG PO (10:41)
[2020-06-03 12:00] LABS: Glucose Point of Care 254 mg/dL (70-110)
[2020-06-03 12:28] LABS: Adenosine Deaminase CSF 0.2 U/L (<7.0)
[2020-06-03 15:29] LABS: E. Chaffeensis AB IGG <1:64; E. Chaffeensis AB IGM <1:20
[2020-06-03 16:29] LABS: RMSF IGG NOT DETECTED; RMSF IGM NOT DETECTED
--- NOTE | 2020-06-03 17:01 | PM.PN ---
Subjective Subjective: Interval history: Documents overnight. Patient has remained comfortable. Denies any nausea, vomiting, headache now. Appetite is appropriate. Hemodynamically stable vitals appropriate and has remained afebrile. Labs and vitals noted. Vitals/I&O/Wt Last Vital Signs Temp 98.2 F 06/03/20 16:00 Pulse 85 06/03/20 16:00 Resp 18 06/03/20 16:00 BP 128/78 06/03/20 16:00 Pulse Ox 96 06/03/20 16:00 06/03/20 06/03/20 06/03/20 06:59 14:59 22:59 Intake Total 170 / 1470 360 / 360 Balance 170 / 1470 360 / 360 Physical Exam Narrative: EXAM NARRATIVE: General: No acute distress, AO x3, complaining of nausea, no photophobia HEENT: PERRLA, pupils bilaterally equal and reactive Chest: Normal vesicular breath sounds, no added sounds, equal good air entry bilaterally CVS: S1-S2 regular, no murmurs, no tachycardia, no gallops, no rubs Abdomen: Soft, nontender, no organomegaly, bowel sounds present Neuro: No focal deficits, no facial deformity, AO x3, power 5/5 in all limbs Data : 06/03/20 04:57 06/03/20 04:57 Micro: Microbiology 05/31/20 08:18 Gram Stain - Final Cerebrospinal Fluid CSF Culture - Final 05/28/20 15:28 Blood Culture - Final Blood NO GROWTH AFTER 5 DAYS 05/28/20 15:24 Blood Culture - Final Blood NO GROWTH AFTER 5 DAYS A&P Assessment and plan (1) Altered mental status: Status: Acute Qualifiers: Altered mental status type: disorientation Qualified Code(s): R41.0 - Disorientation, unspecified (2) Immunocompromised: Status: Acute (3) Chronic anticoagulation: Held since hospital discharge according to patient and Status: Acute (4) Portal vein thrombosis: On chronic anticoagulation with Eliquis, held since hospital discharge Status: Acute (5) COVID-19: Finished remdesivir course Status: Acute (6) Diabetes: -Continue home insulin, low-dose sliding scale Status: Acute (7) Hypoglycemia: Did have hypoglycemic episodes overnight, currently on D5 normal saline Status: Acute Additional A&P Information Altered mental status: Patient has recent hospitalization when she was treated for meningoencephalitis though her lumbar puncture could not be done because she was on Eliquis. In 72 hours on steroids, cefepime and acyclovir. Her mentation improved so the lumbar questions were deferred and was discharged on cefepime and Valtrex. She came back to the hospital in 4 days for recurrent confusion. Lumbar puncture done yesterday consistent with protein of 107 which is elevated and glucose of 93 which is mildly elevated as well. WBC 0. Head imaging appreciated. Though the lumbar puncture was done being on Valtrex and cefepime. Lumbar puncture for now consistent with possible viral meningitis because of elevated proteins. Culture results negative for now. Cryptococcal antigen negative. Continue to monitor results of lumbar puncture regarding HSV, Lyme's, cryptococcal antigen. Continue cefepime 2 g IV every 8 hours. Continue with acyclovir 1 g IV every 8 hour. Continue with dexamethasone 6 mg daily. We will continue acyclovir for 2 more days to finish the course of antiviral medications. Patient had a PICC line which was yanked out earlier this admission. We will try to avoid another PICC line for just 2 days. We will consult ID as patient has failed outpatient Valtrex for viral meningitis and also to decide about long-term medication as an outpatient post discharge. Vitamin C, zinc. Advair, Spiriva. Case discussed with Dr. Vann. She is concerned for possible central myeloid angiopathy given patient's age and presentation. ESR, CRP results appreciated. CT results appreciated. EEG as per Dr. Vann consistent with slow brain wave functionality most likely because of over medications from baclofen, gabapentin. Dr. Vann recommends decreasing the medication as possible and follow-up for with patient in next 1 week. We will hold off on starting antiseizure medications for now. Start patient on Zydis as per Dr. Vann for agitation. Chronic immunosuppression: Patient is chronically on steroids, Actemra. Continue with dexamethasone as above. Hypertension: Goal blood pressure less than 140/90 mmHg. Continue to monitor. Home dose of Lopressor. Last echocardiogram from February 2020 shows an EF of 55% grade 1 diastolic dysfunction, moderate TR, mild MR with RVSP of 41 mmHg. Normal Lexisc and March 2020. Type 2 diabetes mellitus: 50 units at bedtime. Given extra 30 dose today morning. Continue with insulin sliding scale at high-dose protocol. Blood sugars elevated most likely secondary to steroids. Patient will require slow steroid taper as an outpatient. Will increase the dose of Lantus as per the insulin requirement in next 24 hours for discharge. Portal vein thrombosis: Continue with Eliquis at home dose. LFTs appreciated. Continue other chronic medications. Will change medication as per clinical picture. Carb consistent cardiac diet. Full code. Eliquis for help with DVT prophylaxis. Plan for today: Continue IV cefepime and acyclovir to finish a 10-day course for meningitis which is most likely viral though cannot rule out bacterial as patient was already on antibiotics for more than 2 weeks while she had lumbar puncture. Continue with IV steroids. Increase the dose of Lantus today because of uncontrolled hyperglycemia. Most likely discharge on after finishing the course. Attestations Medical Necessity Statement*: Patient requires further hospitalization for management of altered mental status most likely because of viral meningitis. She requires further stay to finish the course of antiviral and antibiotics for 1 more day. Patient has failed outpatient Valtrex regimen. Time Spent in Patient Care: Greater than 35 minutes (>than 50% of time spent in counselling and/or direct pt care on unit). 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
[2020-06-03 17:10] LABS: Glucose Point of Care 254 mg/dL (70-110)
--- NOTE | 2020-06-03 19:48 | P.CONIM_ITS ---
Providers/Reason For Consult Consulting Physican/Specialty*: Georgia Joseph MD, Infectious Disease Reason for Consult*: Recent meningoencephalitis, assist with antiviral and abx management Attending Physician: Irving Alva MD Primary Care Provider: Nel Peacock MD History of Present Illness History of Present Illness Erin Kelley is a 49 year old female a past medical history of rheumatoid arthritis, on chronic steroids 7.5mg po qd, hydroxychloroquine, Cosentyx dys lipidemia, type 2 diabetes mellitus, portal vein thrombosis, chronic anticoagulation with Eliquis. She was recently admitted at [facility] [place] [facility] between 05/18-05/25 for COVID 19 and altered mental status, which had improved at the time of discharge. 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 Notable diagnostics at the time had included normal CBC,CMP, though courlater notable for MARY KAY, positive covid Ag, CT head without acute abnormality, chest x-ray possibility of acute to subacute pneumonitis. LP was unable to be performed due to patient being on anticoagulation with NOACs. Possibility of meningoencephalitis could not be excluded given underlying immunocompromise from half-way steroids. Peripheral w/up included negative flu swab, respiratory viral panel, MRSA swab, blood culture, urine culture, urine bacterial antigen, urine Legionella Ag, HSV 1 and 2 IgM, +IgG HSV1,negative acute hepatitis panel, HIV, QuantiFERON, cryptococcal antigen. She received empiric treatment with Cefepime/vancomycin/ACV and remdisivir, eventually completing rx with Remdisivir x 5 days. Vancomycin discontinued after negative MRSA screen. Cefepime and ACV continued for 7 inpatient days. Upon discharge she was continued on iv cefepime 2g iv q12h and po Valtrex renally dosed to complete remaining 9 days (overall ~16 days rx) for presumed meningoenceohalitis. She started to improve within 3 days of starting rx and returned to her baseline mental status during course of admission. She also received decadron while inpatient. 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 She then returned to the ER on 05/28 due to intermittent confusion one night prior, her had noted that she was conversing with her parents, however did not have delirium as on the recent admission. She was otherwise noted to be alert, awake and oriented x 3, no focal neurological deficits, recalled events leading up to current admission. Since she had been off a/c sin ce last discharge an LP was eventually able to be performed which showed cell count of zero, glu 93, elevated TP at 107,negative gram stain and cx. EEG was negative. MRI brain showed significant progression of confluent periventricular white matter signal abnormalities since 2017 with additional bilateral increased signal in the yana. May be related to small vessel microvascular ischemic vs demyelination vs vasculitides. CTA however without evidence of vasculitis. Additional studies inc negative tick panel, negative CSF ADA, pending CSF VDRL. Cefepime and ACV have been continued current admission to complete previously prescribed course. ID service is consulted today for additional recommendations for abx and antiviral management. Review of Systems General: Reports: 10 or more systems reviewed and unremarkable except in HPI and below Const: Denies: fever(s), chills or body aches Eyes: Denies: change in vision, blurry vision or photophobia ENMT: Reports: hoarseness; Denies: throat pain, enlarged tonsils, odynophagia or nasal congestion Card: Denies: chest pain, palpitations, irregular heart rhythm, edema, swelling of feet/ankles, lightheadedness, pre-syncope, dyspnea on exertion or orthopnea Resp: Denies: dyspnea, productive cough, non-productive cough, wheezing, stridor, pain on inspiration, change in phlegm color, hemoptysis or chest congestion GI: Denies: abdominal pain, nausea, vomiting, hematemesis, coffee ground emesis, dysphagia, heartburn, diarrhea, constipation, GI cramping, change in stool character, hematochezia or melena : Denies: flank pain, difficulty voiding, dysuria, urinary frequency, urinary urgency, urinary hesitancy or hematuria Musc: Denies: neck pain, back pain, extremity pain, joint swelling, joint warmth or deformity Neuro: Denies: headache(s), numbness in extremities, weakness in extremities, sensory changes, difficulty walking, frequent falls, dizziness, vertigo, behavioral changes, Slurred speech present or seizure-like activity Psych: Denies: anxiety, depression, suicidal ideation or homicidal ideation Endo: Denies: polyuria, polydipsia, tired all the time, cold intolerance or hot flashes Jewel/Lymph: Denies: easy bruising or easy bleeding Meds/Allergies Home Medications and Allergies Home Medications Medication Instructions Recorded Confirmed Last Taken Type apixaban 5 mg tablet 5 mg PO BID 09/04/19 05/28/20 05/18/20 History insulin glargine 100 unit/mL 50 unit SUBCUT BEDTIME 09/04/19 05/28/20 05/17/20 History subcutaneous solution prednisone 5 mg tablet 7.5 mg PO DAILY 09/04/19 05/28/20 05/18/20 History ropinirole 2 mg tablet 2 mg PO BEDTIME 09/04/19 05/28/20 05/17/20 History rosuvastatin 20 mg tablet 20 mg PO DAILY 09/04/19 05/28/20 05/17/20 History clobetasol 0.05 % topical cream 1 applic TOPICAL BID PRN 09/05/19 05/28/20 Unknown History escitalopram oxalate 20 mg tablet 20 mg PO DAILY 09/05/19 05/28/20 05/18/20 Hi story omeprazole 40 mg capsule,delayed 40 mg PO DAILY cap 09/05/19 05/28/20 05/18/20 History release ondansetron HCl 4 mg tablet 4 mg PO Q8H PRN 09/05/19 05/28/20 10/30/19 History nitroglycerin 0.4 mg sublingual 0.4 mg SUBLINGUAL Q5M PRN 30 Days 09/09/19 05/28/20 Unknown Rx tablet #25 tab isosorbide dinitrate 30 mg tablet 15 mg PO BID 90 Days #90 tab 10/03/19 05/28/20 05/18/20 Rx Glucagon (HCl) Emergency Kit 1 mg SUBCUT Q20M PRN #0 11/01/19 05/28/20 Unknown History aspirin [Aspir-81] 81 mg PO DAILY 11/01/19 05/28/20 05/18/20 History epinephrine [EpiPen 2-[place]] See Rx Instructions .ROUTE 11/01/19 05/28/20 Unknown History .COMPLEX PRN insulin aspart U-100 [Novolog See Rx Instructions .ROUTE .COMPLEX 11/01/19 05/28/20 12/12/19 History Flexpen U-100 Insulin] tramadol 50 mg tablet 50 mg PO TID PRN #90 tab 11/01/19 05/28/20 12/12/19 Rx trazodone 50 mg tablet 50 mg PO BEDTIME tab 01/09/20 05/28/20 05/17/20 History cilostazol 50 mg tablet 50 mg PO BID #60 tab 02/25/20 05/28/20 05/18/20 Rx duloxetine 30 mg capsule,delayed 30 mg PO DAILY 30 Days #30 cap 03/18/20 05/28/20 05/18/20 Rx release oxycodone 15 mg tablet 15 mg PO BID PRN 30 Days #60 tab 03/18/20 05/28/20 05/18/20 Rx nicotine 21 mg/24 hr daily 1 patch TRANSDERMA DAILY #14 each 03/24/20 05/28/20 Unknown Rx transdermal patch albuterol sulfate 2.5 mg INHALATION Q6H PRN 04/01/20 05/28/20 Unknown History docusate sodium [DOK] 200 mg PO DAILY PRN 04/01/20 05/28/20 Unknown History silver sulfadiazine 1 % topical 1 applic TOPICAL BID #50 gm 04/22/20 05/28/20 Unknown Rx cream hydroxychloroquine 200 mg tablet 200 mg PO BID #60 tab 05/12/20 05/28/20 05/18/20 Rx Combivent Respimat 1 puff INHALATION Q6H PRN 05/18/20 05/28/20 Unknown History Cosentyx Pen 150 mg SUBCUT Q30D 05/18/20 05/28/20 Unknown History ascorbic acid (vitamin C) [Vitamin 500 mg PO DAILY 30 Days #30 tab 05/25/20 05/28/20 Unknown Rx C] metoprolol tartrate 12.5 mg PO BID 30 Days #30 tab 05/25/20 05/28/20 Unknown Rx zinc gluconate 50 mg PO DAILY 30 Days #30 tab 05/25/20 05/28/20 Unknown Rx Bevespi Aerosphere 2 puff INHALATION BID 05/28/20 05/28/20 Unknown History amlodipine 5 mg PO DAILY #30 tab 06/04/20 Unknown Rx baclofen 10 mg PO TID PRN #10 tab 06/04/20 Unknown Rx gabapentin 300 mg PO TID #10 cap 06/04/20 Unknown Rx prednisone See Taper PO DAILY #20 tab 06/04/20 Unknown Rx Allergies Allergy/AdvReac Type Severity Reaction Status Date / Time bee venom protein (honey bee) Allergy ALGY-Anaphy Verified 05/28/20 12:01 laxis Current Medications Current Medications Generic Name Dose Route Start Last Admin Trade Name Freq PRN Reason Stop Dose Admin Hydrocodone Bitart/Acetaminophen 1 tab 06/02/20 09:53 06/03/20 18:22 Hydrocodone-Acetaminophen 5-325 Mg Tablet PO 1 tab Q8H PRN Administration MODERATE PAIN Albuterol Sulfate 2.5 mg 05/28/20 17:30 05/30/20 21:17 Albuterol 2.5 Mg/0.5 Ml Neb INHALATION 2.5 mg Q6H.RESPIRATORY PRN Administration Shortness Of Breath Albuterol/Ipratropium 1 puff 05/28/20 17:23 05/29/20 19:50 Ipratropium-Albuterol 4 Gm Mdi INHALATION 1 puff Q6H.RESPIRATORY PRN Administration Shortness Of Breath Alprazolam 0.5 mg 06/02/20 11:35 06/03/20 01:24 Alprazolam 0.5 Mg Tablet PO 0.5 mg BID PRN Administration ANXIETY Amlodipine Besylate 5 mg 06/02/20 10:30 06/03/20 08:31 Amlodipine 5 Mg Tablet PO 5 mg DAILY PHONG Administration Apixaban 5 mg 06/01/20 09:00 06/03/20 17:46 Apixaban 5 Mg Tablet PO 5 mg BID PHONG Administration Ascorbic Acid 500 mg 05/29/20 09:00 06/03/20 08:32 Ascorbic Acid 500 Mg Tablet PO 500 mg DAILY PHONG Administration Aspirin 81 mg 06/02/20 10:30 06/03/20 08:32 Aspirin 81 Mg Ec Tablet PO 81 mg DAILY PHONG Administration Atorvastatin Calcium 80 mg 05/28/20 21:00 06/02/20 21:07 Atorvastatin 40 Mg Tablet PO 80 mg BEDTIME PHONG Administration Baclofen 10 mg 06/02/20 13:26 06/03/20 03:00 Baclofen 10 Mg Tablet PO 10 mg TID PRN Administration MUSCLE PAIN Docusate Sodium 200 mg 05/28/20 17:23 05/30/20 10:06 Docusate Sodium 100 Mg Capsule PO 200 mg DAILY PRN Administration Constipation Gabapentin 300 mg 06/02/20 15:00 06/03/20 14:06 Gabapentin 300 Mg Capsule PO 300 mg TID PHONG Administration Acyclovir 1,000 mg/ Sodium 120 mls @ 120 mls/hr 05/28/20 16:00 06/03/20 14:59 Chloride IV Infused Q8H PHONG Infusion Cefepime HCl 2,000 mg/ Sodium 50 mls @ 100 mls/hr 06/01/20 17:30 06/03/20 17:47 Chloride IV 100 mls/hr Q8H PHONG Administration Protocol Insulin Aspart 0 unit 05/29/20 08:00 06/03/20 18:05 Insulin Aspart 100 Unit/1 Ml SUBCUT 10 unit WM&BEDTIME PHONG Administration Protocol Insulin Glargine 50 unit 05/28/20 21:00 06/02/20 21:06 Insulin Glargine 100 Units/1 Ml SUBCUT 50 unit BEDTIME PHONG Administration Isosorbide Dinitrate 15 mg 05/28/20 18:00 06/03/20 18:21 Isosorbide Dinitrate 20 Mg Tablet PO 15 mg BID PHONG Administration Metoprolol Tartrate 12.5 mg 05/28/20 18:00 06/03/20 17:47 Metoprolol Tartrate 25 Mg Tablet PO 12.5 mg BID PHONG Administration Nicotine 1 patch 05/29/20 09:00 06/03/20 08:33 Nicotine 21 Mg Patch TRANSDERMA 1 patch DAILY PHONG Administration Olanzapine 2.5 mg 06/01/20 20:00 06/03/20 18:21 Olanzapine 5 Mg Odt PO 2.5 mg BID PHONG Administration Ondansetron HCl 4 mg 06/01/20 10:14 06/01/20 10:28 Ondansetron 2 Mg/Ml Sdv 2 Ml IVP 4 mg TID PRN Administration NAUSEA AND VOMITING Oxycodone HCl 15 mg 05/30/20 16:26 06/03/20 08:35 Oxycodone 5 Mg Ir Tab/Cap PO 15 mg BID PRN Administration SEVERE PAIN Pantoprazole Sodium 40 mg 05/29/20 09:00 06/03/20 08:[address] 40 Mg Tablet PO 40 mg DAILY PHONG Administration Prednisone 40 mg 06/03/20 09:30 06/03/20 10:41 Prednisone 20 Mg Tablet PO 40 mg DAILY PHONG Administration Ropinirole HCl 2 mg 05/28/20 21:00 06/02/20 21:07 Ropinirole 2 Mg Tablet PO 2 mg BEDTIME PHONG Administration Tramadol HCl 50 mg 05/28/20 17:23 06/03/20 01:24 Tramadol 50 Mg Tablet PO 50 mg TID PRN Administration pain Trazodone HCl 50 mg 05/28/20 21:00 06/02/20 21:07 Trazodone 50 Mg Tablet PO 50 mg BEDTIME PHONG Administration Zinc Gluconate 50 mg 05/29/20 09:00 06/03/20 08:34 Zinc Gluconate 50 Mg Tablet PO 50 mg DAILY PHONG Administration PFSH Acute PFSH: Medical History Acute kidney injury Avulsion fracture of left ankle Cervical spondylosis Chronic anticoagulation Cigarette smoker motivated to quit Claudication Closed fracture of right distal fibula DDD (degenerative disc disease), cervical Diabetes Dyspnea Emphysema/COPD Encounter for long-term (current) use of NSAIDs Essential hypertension Fibromyalgia Fracture Immunocompromised Intractable nausea and vomiting Long-term current use of opiate analgesic Onychodystrophy Osteoporosis Pain management contract signed Pain, joint, multiple sites Portal vein thrombosis Rheumatoid arthritis Right foot pain Spondylosis of lumbar region without myelopathy or radiculopathy Syncope Tobacco use disorder Surgical History H/O dilation and curettage Hx laparoscopic cholecystectomy Hx of section (~1989) Hx of hysterectomy Family History Mother Stroke Cancer SKIN CANCER Sister Stroke Other Diabetes Myocardial infarct Denies family history of Anesthesia complication Bleeding disorder Social History Smoking and tobacco status: current every day smoker cigarettes Packs smoked per day: 0.5 Years cigarettes smoked: 40 Quit status (tobacco): has tried quititng Second hand smoke exposure: Yes Alcohol intake: former Caregiver/support person: Yes Lives independently: Yes Household members: spouse Marital status: Current occupational status: disabled History of recent travel: No Current gender identity: Female Vitals/I&O/Wt Last Vital Signs Temp 98.2 F 06/03/20 16:00 Pulse 85 06/03/20 16:00 Resp 18 06/03/20 16:00 BP 128/78 06/03/20 16:00 Pulse Ox 96 06/03/20 16:00 06/03/20 06/03/20 06/03/20 06:59 14:59 22:59 Intake Total 170 / 1470 530 / 530 240 / 770 Balance 170 / 1470 530 / 530 240 / 770 Physical Exam Narrative: EXAM NARRATIVE: GEN: Awake, alert and oriented x3, no acute distress CVS: S1S2 N RS: CTA B/L Abd: Soft, nt/nd , bs+ LIFE CARE PLANNER: no focal neuro deficits Data Micro: Micro: Microbiology 05/31/20 08:18 Gram Stain - Final Cerebrospinal Flu id CSF Culture - Keisha l 05/28/20 15:28 Blood Culture - Fi nal Blood NO GROWTH AFTER 5 DAYS 05/28/20 15:24 Blood Culture - Fi nal Blood NO GROWTH AFTER 5 DAYS A&P Assessment and plan (1) COVID-19: Recent diagnosis as noted above in HPI TReated with Remdisivir and Dexamethason e Status: Acute (2) Altered mental status: Patient has had an extensive w/up as detailed abve in HPI for possible meningiencephalitis. Due to lck of LP on first admission, it is difficult to know if patient had true meningoencephalitis vs acute encephalopathy as a result of COVID diagnosis. However given presentation with delirium, neck pain, underlying immunocompromise, certainly reasonable for her to be treated presumptively for the same, icnluidng coverage of both bacterial and viral etiologies. LP perfromed on current admission overall unremarkable except for elevated protein which could certainly represent viral process vs an appropritely treated bacterial process. Her current presentation with confusion,but otherwise without any delirium, fever, neck pain, photophobia, fever makes possibility of an untreated infection less likely. Recommend to complete her course of cefepime and ACV/Valtrex as started on last admission for total duration of treatment to be 2 weeks. I believe she has shown appropriate clinical response to treatment. Also possible that polypharmcy with pain medications may be contirbuting to the overall picture, titration of these medications per primary team. Thank you for this consult. Please do not hesitate to recah out for any further questions. 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
[2020-06-03 20:30] LABS: Glucose Point of Care 522 mg/dL (70-110)
[2020-06-03] MEDS: atorvastatin 40 mg Tablet 80 MG PO (21:11)
[2020-06-03] MEDS: trazodone 50 mg Tablet PO (21:12)
[2020-06-03] MEDS: ropinirole 2 mg Tablet PO (21:12)
[2020-06-03] MEDS: insulin glargine 100 units/1 mL 50 UNIT SUBCUT (21:12)
[2020-06-04] VITALS (9 sets, daily range): BP systolic 131–158; BP diastolic 81–94; PULSE 74–95; RESP 16–20; TEMP 36.6–37.2; O2SAT 92–98
[2020-06-04] MEDS: cefepime 2,000 MG in sodium chloride 0.9% (plus) 50 ML 100 MG IV ×2 (01:12→09:24)
[2020-06-04] MEDS: oxyCODONE 5 mg IR Tab/Cap 15 MG PO (01:17)
[2020-06-04] MEDS: ALPRAZolam 0.5 mg Tablet PO (01:17)
[2020-06-04] MEDS: acyclovir 1,000 MG in sodium chloride 0.9% (100 ml) 100 ML 120 MG IV ×2 (03:34→09:50)
[2020-06-04] MEDS: zinc gluconate 50 mg Tablet PO (08:38)
[2020-06-04] MEDS: pantoprazole DR 40 mg Tablet PO (08:39)
[2020-06-04] MEDS: ascorbic acid 500 mg Tablet PO (08:39)
[2020-06-04] MEDS: apixaban 5 mg Tablet PO (08:39)
[2020-06-04] MEDS: aspirin 81 mg EC Tablet PO (08:39)
[2020-06-04] MEDS: predniSONE 20 mg Tablet 40 MG PO (08:39)
[2020-06-04] MEDS: gabapentin 300 mg Capsule PO (08:39)
[2020-06-04] MEDS: metoprolol tartrate 25 mg Tablet 12.5 MG PO (08:39)
[2020-06-04] MEDS: amlodipine 5 mg Tablet PO (08:39)
[2020-06-04] MEDS: isosorbide dinitrate 20 mg Tablet 15 MG PO (08:40)
[2020-06-04] MEDS: OLANZapine 5 mg ODT 2.5 MG PO (08:40)
[2020-06-04] MEDS: nicotine 21 mg Patch 1 PATCH TRANSDERMA (08:40)
[2020-06-04 09:26] LABS: Glucose Point of Care 283 mg/dL (70-110)
--- NOTE | 2020-06-04 09:26 | P.DS_ITS ---
Discharge Providers Date of Admission: 05/28/20 15:14 Date of Discharge: June 04, 2020 Attending Provider at Admission: Jaydon Lane MD Attending Provider at Discharge: Irving Alva MD Consults: Infectious disease: Dr. Joseph Neurology: Dr. Vann Primary Care Provider: Nel Peacock MD Diagnoses at Discharge Discharge Diagnosis (1) Altered mental status: Status: Acute Qualifiers: Altered mental status type: disorientation Qualified Code(s): R41.0 - Disorientation, unspecified (2) Immunocompromised: Status: Acute (3) Chronic anticoagulation: Status: Acute (4) Portal vein thrombosis: Status: Acute (5) COVID-19: Status: Acute (6) Diabetes: Status: Acute (7) Hypoglycemia: Status: Acute Reason for Visit Reason for Visit: covid +/ hallucinations Hospital Course Hospital Course 49-year-old female with a past medical history of rheumatoid arthritis, on chronic steroids, hydroxychloroquine, Cosentyx dyslipidemia, type 2 diabetes mellitus, portal vein thrombosis, chronic anticoagulation with Eliquis, who presents to [facility] due to concerns for increased confusion Patient was recently 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 She states that she has not taken Eliquis since hospital discharge. But she has taken aspirin. She tells me that her is concerned, she has been acting confused for the last day or so. Overnight she was talking to her parents during the night. Patient stated that she has been having headache, nausea with pain in her neck which is been ongoing for last few days. Patient was admitted and was continued on the medications for meningoencephalitis. Aspirin, cilostazol was withheld and then she underwent lumbar puncture on May 31. Lumbar puncture results are consistent with elevated protein up to 106 though she did not have any proteinuria and mildly elevated CSF glucose of 293 when her RBS was elevated. CSF culture results have been negative to date. Tick panel was negative, respiratory viral panel done recently was negative, quantified and was negative, CSF study for herpes simplex is pending, RAZIA profile was negative, drug screen on admission was negative. Patient underwent EEG which was consistent with slow brain waveforms most likely ask due to excessive sleep or toxic metabolic encephalopathy. Her case was discussed in detail with Dr. Vann from neurology. It is believed her symptoms are due to a combination of possible viral meningitis either secondary to COVID-19 or due to unspecified virus. Patient had failed outpatient Valtrex treatment so was continued on IV acyclovir to finish the course. It is possible that patient's CSF results are negative for bacteria as she has been on cefepime so the course of cefepime was completed as well. It is also possible that her symptoms are getting complicated by excessive medications which are making her encephalopathic and her dose of gabapentin and baclofen was decreased. 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 Patient is been discharged in hemodynamically stable condition with advised to follow-up with Dr. Vann in 1 week. Treatment plan has been discussed with both patient and her in detail and they are agreeable to the same. Physical Exam Narrative: EXAM NARRATIVE: General: No acute distress, AO x3, complaining of nausea, no photophobia HEENT: PERRLA, pupils bilaterally equal and reactive Chest: Normal vesicular breath sounds, no added sounds, equal good air entry bilaterally CVS: S1-S2 regular, no murmurs, no tachycardia, no gallops, no rubs Abdomen: Soft, nontender, no organomegaly, bowel sounds present Neuro: No focal deficits, no facial deformity, AO x3, power 5/5 in all limbs Discharge Data Data Completed and Pending: Completed Studies During Hospitalization Category Date Time Status CT angio head 704 96 Routine Cat Scan 06/01/20 10:[address] head wo con* 7 0450 Urgent Cat Scan 05/28/20 15:14 Completed FL guided lumbarp [facility] dx* [id number] Rout ine Exams 05/31/20 08:00 Completed XR chest 1V marciano ble [id number] Routine Exams 05/30/20 07:00 Completed XR chest 1V marciano ble [id number] Stat Exams 05/28/20 12:16 Completed MR head wo con* [id number] Routine MRI 05/29/20 11:31 Completed Pending at discharge Category Date Time Status EEG electroenceph alogram Routine Exams 06/01/20 10:01 Ordered RAZIA Profile Rheum atology Stat Lab 05/31/20 11:45 Results CSF Analysis + Ce ll Count Stat Lab 05/31/20 08:18 Results CSF Culture Stat Lab 06/02/20 00:35 Ordered CSF Specific Grav ity Routine Lab 05/31/20 08:18 Results Cryptococcal Anti gen Routine Lab 05/31/20 19:36 Ordered Glucose CSF Routi ne Lab 05/31/20 08:18 Results Herpes Simplex Vi humaira DNA Stat Lab 05/28/20 17:23 Received Lymes Disease Ant ibodies CSF Stat Lab 05/28/20 17:23 Received Miscellaneous Maylin t Routine Lab 05/28/20 15:41 Received Mycobacteria, Cul ture w/Fluor Routi ne Lab 06/02/20 00:35 Ordered Oligoclonal Bands IGG, CSF Stat Lab 05/28/20 17:23 Received Sputum Culture an d Gram Stain Stat Lab 05/28/20 15:14 Uncollected Lismore Enceph. Virus IFA CSF Stat Lab 05/28/20 17:23 Received Total Protein CSF Routine Lab 05/31/20 08:18 Results VDRL on CSF Stat Lab 05/31/20 08:18 Received MR head wo con* 7 0551 Routine MRI 05/29/20 17:30 Unverified Labs from last 24 hours 06/04/20 06/03/20 06/03/20 06:34 19:48 16:45 POC Glucose 283 522 254 CSF Adenosine Deam inase E. chaffeensis IgG Ab E. chaffeensis IgM Ab E. chaffeensis Int erp E. chaffeensis Com ment Rickettsia IgG Ab Rickettsia IgM Ab 06/03/20 05/31/20 05/31/20 11:55 11:45 08:18 POC Glucose 254 CSF Adenosine Deam inase 0.2 E. chaffeensis IgG Ab <1:64 E. chaffeensis IgM Ab <1:20 E. chaffeensis Int erp See note E. chaffeensis Com ment Not Reportable Rickettsia IgG Ab Not detected Rickettsia IgM Ab Not detected Addt'l Data from Hospital Stay: EEG: June 02, 2020. REASON FOR STUDY: Altered mental status. STUDY: This was a 21 channel digital electroencephalogram performed using the 1 0-20 international system of electrode placement. This study was non-sleep deprived and the patient was awake and drowsy. Photic stimulation and hyperventilation were included. FINDINGS: The patient appeared to be drowsy or asleep through most of the tracing. There were high voltage runs of delta at 3 to 4 Hz. She was awakened for photic stimulation and posterior alpha at 9 to 10 Hz was seen bilaterally and symmetrically. During waking activity there was jaw contraction with resultant muscle artifact. Upon cessation of photic stimulation she immediately returned to a drowsy state with return of slow-wave activity centrally. Frontal intermittent rhythmic delta activity (FIRDA) was seen. Hyperventilation was attempted but she was poorly compliant and again fell asleep. IMPRESSION: This patient had an EEG in February that was characterized by constant movement and poor quality EEG. Today she was more still, although she still had muscle artifact in the jaws during waking activity. She was either drowsy or asleep through most of the tracing. This record suggests excessive sleepiness or toxic or metabolic encephalopathy. No specific sign of epileptogenic was appreciated. Duration of EE.1 Vitals: Last Vital Signs Temp 97.9 F 06/04/20 07:17 Pulse 74 06/04/20 08:20 Resp 17 06/04/20 08:20 BP 158/94 06/04/20 07:17 Pulse Ox 98 06/04/20 08:20 Discharge Plan Discharge Patient Disposition: Home Condition: Stable Prescriptions: New baclofen 10 mg Tablet 10 mg PO TID PRN (Reason: MUSCLE PAIN) Qty: 10 RF: 0 amlodipine 5 mg Tablet 5 mg PO DAILY Qty: 30 RF: 0 gabapentin 300 mg Capsule 300 mg PO TID Qty: 10 RF: 0 prednisone 10 mg tablet See Taper mg PO DAILY Qty: 20 RF: 0 Continued escitalopram oxalate [Lexapro] 20 mg tablet 20 mg PO DAILY RF: 0 omeprazole 40 mg capsule,delayed release(DR/EC) 40 mg PO DAILY RF: 0 tramadol 50 mg tablet 50 mg PO TID PRN (Reason: pain) Qty: 90 RF: 0 trazodone 50 mg tablet 50 mg PO BEDTIME RF: 0 silver sulfadiazine [Silvadene] 1 % cream 1 applic TOPICAL BID Qty: 50 RF: 0 rosuvastatin [Crestor] 20 mg tablet 20 mg PO DAILY RF: 0 Eliquis 5 mg tablet 5 mg PO BID RF: 0 ropinirole 2 mg tablet 2 mg PO BEDTIME RF: 0 Lantus U-100 Insulin 100 unit/mL solution 50 unit SUBCUT BEDTIME RF: 0 clobetasol 0.05 % cream 1 applic TOPICAL BID PRN (Reason: Skin Irritation) RF: 0 ondansetron HCl [Zofran] 4 mg tablet 4 mg PO Q8H PRN (Reason: Nausea) RF: 0 duloxetine [Cymbalta] 30 mg capsule,delayed release(DR/EC) 30 mg PO DAILY 30 Days Qty: 30 RF: 5 oxycodone 15 mg tablet 15 mg PO BID PRN (Reason: pain) 30 Days Qty: 60 RF: 0 nicotine 21 mg/24 hr patch 24 hour 1 patch TRANSDERMA DAILY Qty: 14 RF: 2 nitroglycerin [Nitrostat] 0.4 mg tablet, sublingual 0.4 mg SUBLINGUAL Q5M PRN (Reason: chest pain) 30 Days Qty: 25 RF: 6 isosorbide dinitrate 30 mg tablet 15 mg PO BID 90 Days Qty: 90 RF: 3 cilostazol 50 mg tablet 50 mg PO BID Qty: 60 RF: 1 hydroxychloroquine 200 mg tablet 200 mg PO BID Qty: 60 RF: 1 Hold Instructions: Resume on 06/15/20. HOLD UNTIL SEEN BY RHEUMATOLOGY aspirin [Aspir-81] 81 mg Tablet,Delayed Release (Dr/Ec) 81 mg PO DAILY RF: 0 epinephrine [EpiPen 2-Carrington] 0.3 mg/0.3 mL Auto-Injector See Rx Instructions .ROUTE .COMPLEX PRN (Reason: Allergic Reaction) RF: 0 insulin aspart U-100 [Novolog Flexpen U-100 Insulin] 100 unit/mL (3 mL) insulin pen See Rx Instructions .ROUTE .COMPLEX RF: 0 Glucagon (HCl) Emergency Kit 1 mg Recon Soln 1 mg SUBCUT Q20M PRN (Reason: blood sugar) Qty: 0 RF: 0 albuterol sulfate 2.5 mg /3 mL (0.083 %) Solution For Nebulization 2.5 mg INHALATION Q6H PRN (Reason: Shortness Of Breath) RF: 0 docusate sodium [DOK] 100 mg Capsule 200 mg PO DAILY PRN (Reason: Constipation) RF: 0 Bevespi Aerosphere 9-4.8 mcg HFA aerosol inhaler 2 puff INHALATION BID RF: 0 Cosentyx Pen 150 mg/mL pen injector 150 mg SUBCUT Q30D RF: 0 Hold Instructions: Resume on 05/25/20. Until seen by rheumatology until seen by rheumatology Combivent Respimat 20-100 mcg/actuation mist 1 puff INHALATION Q6H PRN (Reason: Shortness Of Breath) RF: 0 ascorbic acid (vitamin C) [Vitamin C] 500 mg Tablet 500 mg PO DAILY 30 Days Qty: 30 RF: 0 zinc gluconate 50 mg Tablet 50 mg PO DAILY 30 Days Qty: 30 RF: 0 metoprolol tartrate 25 mg Tablet 12.5 mg PO BID 30 Days Qty: 30 RF: 0 Held prednisone 5 mg tablet 7.5 mg PO DAILY RF: 0 Hold Instructions: Resume on 06/15/20. Until seen by rheumatology Discontinued gabapentin 300 mg capsule See Rx Instructions .ROUTE .COMPLEX RF: 0 baclofen 10 mg Tablet 20 mg PO QID PRN (Reason: Pain) RF: 0 Discharge Orders: Discharge Order (Routine); Ordered 06/04/20 Ordered By: Irving Alva Referrals: Viridiana Vann MD [Physician] - 4-7 days Nel Peacock MD [Primary Care Provider] - 4-7 days Discharge Diet: Regular and Cardiac Discharge Activity: Resume usual activity Activity Restrictions/Additional Instructions: You will be on steroid taper as directed for 12 days after which resume your regular dose of prednisone 7.5 mg daily. Failure on steroids take Lantus 50 units twice daily after that you can cut down to your home dose of 50 units at bedtime. Humalog to be taken premeals as per the sliding scale. After discussion with Dr. Vann regarding your EEG results your dose of baclofen and gabapentin has been decreased. Please follow-up with Dr. Vann within next 1 week. Please follow-up with your primary care provider within next 1 week. Discharge Attestations Time Spent in Discharge Care*: greater than 30 min Specific Discharge Activities: educating patient, educating and/or supporting family/caregiver, discussing with pcp/other providers, discussing with manager of case management/social workers/dc planners, documenting/other paperwork and evaluating patient/reviewing data Status at Discharge: Cognitive status at discharge: cognitively intact , Behavioral status at discharge: cooperative , Functional status at discharge: independent ambulation Overall status at discharge: patient is back to baseline Quality Metrics Clinical Quality Measures During this hospital stay, did patient experience: None Coding Level of Care Code 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
--- NOTE | 2020-06-04 09:50 | PC.NURSE ---
Dr. Alva notified this nurse to complete acyclovir early administration for now then discharge home.
--- NOTE | 2020-06-04 10:47 | PC.NURSE ---
Dr. Alva gave this nurse new orders of lantus 50units now, okay'd and aware of lantus current schedule and novolog current schedule, reports will increase lantus at home to BID.
[2020-06-04] MEDS: insulin glargine 100 units/1 mL 50 UNIT SUBCUT (11:47)
--- NOTE | 2020-06-04 12:03 | PC.NURSE ---
Discharge instructions completed, verbalized understanding.
[2020-06-04 12:57] LABS: Glucose Point of Care 238 mg/dL (70-110)
[2020-06-05 06:53] LABS: HSV 1 DNA NOT DETECTED; HSV 2 DNA NOT DETECTED; HSV Source CEREBROSPINAL FLUID
--- NOTE | 2020-06-05 15:05 | PC.SOCIAL ---
Spoke with the patient on the phone about the discharge information they received spoke about signs and symptoms to watch for such as; blue lips or face, fever of 104 or higher, trouble breathing or catching breath, chest pain lasting longer than 5 minute, confusion or trouble waking up. We also spoke about ways to improve the immune system, these included; eating and drinking well, eating fruits and vegetables, lean meat, low fat dairy products, keeping up with immunizations such as flu/pneumonia/shingles shots, going to all appointments and follow ups, lessening and stress. We also spoke about ways to stop or prevent the spread of the COVID 19. These included; social distancing at all times, washing hands longer than 20 seconds with a good lather, sanitizing surfaces in home and in vehicle, masking up when possible and washing any cloth masks after use and allow them to dry completely before next use, sneezing or coughing into arm, restricting company or going out in public. We spoke a little about the benefits of plasma donation. She stated that she would like info on this. We touched base about the upcoming appointments she has, she stated that she would call if she needed help setting any of those appointments up.
[2020-06-05 21:58] LABS: St. Louis Enceph.Virus IGG CSF <1:1; St. Louis Enceph.Virus IGM CSF <1:1
[2020-06-06 22:23] LABS: Lyme Disease AB (IGG),IBL NO BANDS DETECTED; Lyme Disease AB (IGM), IBL NO BANDS DETECTED
[2020-06-07 22:14] LABS: DNA AB (DS) CRITHIDIA,IFA NEGATIVE (NEGATIVE)
[2020-06-10 17:18] LABS: Oligoclonal Bands IGG, CSF NO BANDS (NO BANDS)
== END 2020-06-04 12:12 | disposition home or self-care (01) | DRG 97 ==
LOC: ER 12:06 → MEDSURG 15:50
PROVIDERS: Internal Medicine; Admitting Provider Family Medicine; Emergency Provider Emergency Medicine; PCP Internal Medicine; Visit Provider Student in an Organized Health Care Education/Training Program
DX: A86 Unspecified viral encephalitis (principal); G05.3 Encephalitis and encephalomyelitis in diseases classified elsewhere; I81 Portal vein thrombosis; U07.1 COVID-19; D84.821 Immunodeficiency due to drugs; B99.8 Other infectious disease; M06.9 Rheumatoid arthritis, unspecified; Z79.52 Long term (current) use of systemic steroids; E78.5 Hyperlipidemia, unspecified; E11.649 Type 2 diabetes mellitus with hypoglycemia without coma; Z86.19 Personal history of other infectious and parasitic diseases; M47.812 Spondylosis without myelopathy or radiculopathy, cervical region; F17.210 Nicotine dependence, cigarettes, uncomplicated; J43.9 Emphysema, unspecified; I10 Essential (primary) hypertension; M79.7 Fibromyalgia; T38.0X5A Adverse effect of glucocorticoids and synthetic analogues, initial encounter; T37.8X5A Adverse effect of other specified systemic anti-infectives and antiparasitics, initial encounter; L60.3 Nail dystrophy; M81.0 Age-related osteoporosis without current pathological fracture; M47.816 Spondylosis without myelopathy or radiculopathy, lumbar region; Z79.891 Long term (current) use of opiate analgesic; Z79.01 Long term (current) use of anticoagulants; G92 Toxic encephalopathy; Z79.4 Long term (current) use of insulin; Z79.51 Long term (current) use of inhaled steroids; Z79.82 Long term (current) use of aspirin
CPT/HCPCS: 12345; 36415; 36416; 36592; 36600; 62328; 70450; 70496; 70551; 71045; 80053; 80500; 82042; 82140; 82550; 82728; 82803; 82945; 82962; 83605; 83615; 83735; 83880; 83916; 84100; 84145; 84157; 84311; 84315; 85025; 85378; 85384; 85610; 85651; 86140; 86592; 86617; 86618; 86653; 86666; 86757; 86850; 86900; 87040; 87070; 87075; 87086; 87205; 87530; 89050; 94640; 94664; 96372; 96375; 99283; J0133; J0692; J1100; J1642; J1815 ×2; J2060; J2405; J3475; J7512; J7611; J7799; Q0162; Q9967

== ENCOUNTER → 2020-06-15 12:36 | Outpatient (BNVA) | payer MEDICAID, SELFPAY | PROVIDERS: PCP Internal Medicine; Visit Provider Specialist | DX: G40.909 Epilepsy, unspecified, not intractable, without status epilepticus (principal); M79.7 Fibromyalgia; R41.0 Disorientation, unspecified; D84.9 Immunodeficiency, unspecified; F17.210 Nicotine dependence, cigarettes, uncomplicated | CPT/HCPCS: 99205 ==

== ENCOUNTER → 2020-06-18 10:00 | Outpatient (BNVA) | payer MEDICAID, SELFPAY | PROVIDERS: PCP Internal Medicine; Visit Provider Internal Medicine | DX: M05.9 Rheumatoid arthritis with rheumatoid factor, unspecified (principal); Z79.899 Other long term (current) drug therapy; D64.9 Anemia, unspecified; F17.210 Nicotine dependence, cigarettes, uncomplicated | CPT/HCPCS: 99213 ==

== ENCOUNTER → 2020-06-26 13:28 | Outpatient (BNVA) | payer MEDICAID, SELFPAY | PROVIDERS: PCP Internal Medicine; Visit Provider Anesthesiology | DX: M54.41 Lumbago with sciatica, right side (principal); M54.42 Lumbago with sciatica, left side; M47.816 Spondylosis without myelopathy or radiculopathy, lumbar region; M47.812 Spondylosis without myelopathy or radiculopathy, cervical region; M50.30 Other cervical disc degeneration, unspecified cervical region; F17.210 Nicotine dependence, cigarettes, uncomplicated; Z79.1 Long term (current) use of non-steroidal anti-inflammatories (NSAID); Z79.891 Long term (current) use of opiate analgesic | CPT/HCPCS: 99213; 99214 ==

== ENCOUNTER 2020-06-30 08:50 | Outpatient (CLI) | payer MEDICAID, SELFPAY ==
--- NOTE | 2020-06-30 08:55 | CT_ITS ---
WS: [id number] CT CHEST TECHNIQUE: Contrast enhanced CT of the chest with coronal and sagittal reformatted images. CLINICAL INFORMATION: HILAR LUNG MASS COMPARISON: CT chest February 28, 2020, September 26, 2016, and CT abdomen pelvis May 18, 2020 DLP: 1070.[address] scans at [facility] use at least one of these dose optimization techniques: automat ed exposure control; mA and/or kV adjustment per patient size (includes targeted exams where dose is matched to clinical indication); or iterative reconstruction. FINDINGS: Moderate chronic emphysematous changes. Partially visualized opacity in the right hilum seen on the r ecent CT abdomen pelvis corresponds to hilar lymphadenopathy today measure 1.6 cm. This is stable in appearance since 02/[address] and slightly progressed since and . Additional s maller prominent right perihilar lymph nodes. Stable prominent left perihilar lymph nodes the largest measuring 10 mm. Prominent AP window and peribronchial lymph nodes are similar in appearance. Normal caliber thoracic aorta. Proximal main pulmonary arteries are normal. No axillary lymphadenopat hy. Thyroid gland is normal. Diffuse fatty infiltration of the liver. Cholecystectomy clips. Adrenal glands are normal. Splenic gr anulomas. Fatty atrophy of the pancreas. Normal thoracic spine. Long-term stability a noncalcified nodule in the left lower lobe measuring 5 mm. Additional noncalcif ied tiny nodule right lower lobe measuring 3 mm stable since 2016.Subsegmental atelectasis in the kd gula and right middle lobe. Chronic bilateral rib fractures with callus formation. CT/CT chest w con* [id number] IMPRESSION: 1. Enlarged right hilar lymph node measuring approximately 16 mm stable since 02/28/2020 but slightly progressed since 2015 and 2016. This is nonspecific and slow-growing neoplasm not entirely excluded. This could be further evaluated wi th PET/CT and/or bronchoscopy. 2. Additional prominent AP window, peribronchial and bilateral perihilar lymph nodes are unchanged. 3. No acute pulmonary infiltrates. Chronic emphysematous changes. 4. Long-term stability of a few subcentimeter noncalcified pulmonary nodules. 5. Chronic bilateral rib fractures right greater than left.
[2020-06-30] MEDS: iohexol 300 mg/mL 100 mL Btl IV (09:09)
== END 2020-06-30 08:51 | disposition home or self-care (01) ==
LOC: RADWPI 08:52
PROVIDERS: PCP Internal Medicine; Visit Provider Internal Medicine
DX: R91.8 Other nonspecific abnormal finding of lung field (principal); R59.9 Enlarged lymph nodes, unspecified; S22.43XA Multiple fractures of ribs, bilateral, initial encounter for closed fracture; X58.XXXA Exposure to other specified factors, initial encounter
CPT/HCPCS: 71260; Q9967

== ENCOUNTER 2020-08-10 16:35 | Outpatient (CLI) | payer MEDICAID, SELFPAY ==
--- NOTE | 2020-08-10 16:52 | XRR_ITS ---
PROCEDURE INFORMATION: Exam: XR Chest, 2 Views Exam date and time: 08/10/2020 4:54 PM Age: 49 years old Clinical indication: Cough and shortness of breath; Chest pain; Additional info: Cough. Please fax report. --attn: Grace [phone] TECHNIQUE: Imaging protocol: XR of the chest Views: 2 views. COMPARISON: CT chest w con* [id number] 06/30/2020 9:06 AM FINDINGS: Lungs: Unremarkable. No consolidation. Pleural spaces: Unremarkable. No pleural effusion. No pneumothorax. Heart/Mediastinum: Unremarkable. No cardiomegaly. Bones/joints: Unremarkable. XR/XR chest 2V* [id number] IMPRESSION: No acute findings.
== END 2020-08-10 16:36 | disposition home or self-care (01) ==
LOC: RAD 16:42
PROVIDERS: PCP Internal Medicine; Visit Provider Internal Medicine
DX: R05 Cough (principal); R06.02 Shortness of breath; R07.9 Chest pain, unspecified
CPT/HCPCS: 71046

== ENCOUNTER 2020-08-14 18:07 | Inpatient (IN) | payer MEDICAID, SELFPAY ==
[2020-08-14] VITALS (8 sets, daily range): BP systolic 83–100; BP diastolic 46–68; PULSE 84–92; RESP 18–38; TEMP 36.6; O2SAT 92–98; BMI 31.9
--- NOTE | 2020-08-14 18:10 | ECG_ITS ---
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 Measurements Intervals [place] Rate: 88 P: 65 WI: 135 QRS: 65 QRSD: 73 T: 87 QT: 353 QTc: 429 Interpretive Statements SINUS RHYTHM NONSPECIFIC T-WAVE ABNORMALITY Compared to ECG 05/23/2020 05:36:08 T-wave abnormality now present ST (T wave) deviation no longer present Electronically Signed On 08-15-2020 10:53:45 MENTAL RETARDATION AIDE by Terrell Macias M.D. [id number]
--- NOTE | 2020-08-14 18:10 | XRR_ITS ---
PROCEDURE INFORMATION: Exam: XR Chest, 1 View Exam date and time: 08/14/2020 6:26 PM Age: 49 years old Clinical indication: Chest pain; Additional info: Cp TECHNIQUE: Imaging protocol: XR of the chest Views: 1 view. COMPARISON: CR XR chest 2V* [id number] 08/10/2020 5:00 PM FINDINGS: The lungs are clear of infiltrate. There are no pleural effusions or pneumothorax. The heart size and pulmonary vascularity are normal. The there has been no change since the previous exam. XR/XR chest 1V portable [id number] IMPRESSION: No active disease.
[2020-08-14] MEDS: aspirin 81 mg Chew Tablet 324 MG PO (19:23)
[2020-08-14] MEDS: nitroglycerin 1 gm/inch oint Pkt 1 INCH TOPICAL (19:24)
[2020-08-14 19:38] LABS: Basophils # 0.1 10^3/uL (0.0-0.1); Basophils % 0.6 %; Eosinophils # 0.1 10^3/uL (0.0-0.8); Eosinophils % 0.6 %; Hematocrit 42.4 % (37.0-47.0); Hemoglobin 13.5 g/dL (11.5-15.3); Lymphocytes # 1.2 10^3/uL (0.8-4.8); Lymphocytes % 6.7 %; Mean Corpuscular HGB Conc 31.8 g/dL (30.0-36.0); Mean Corpuscular Hemoglobin 29.9 pg (28.0-34.0); Mean Platelet Volume 9.8 fL (7.4-10.4); Monocytes # 1.5 10^3/uL (0.2-0.9); Monocytes % 8.3 %; Neutrophils # 15.29 10^3/uL (1.8-7.7); Nucleated Red Blood Cells % 0 %; Platelet Count 162 10^3/cmm (130-400); Red Blood Count 4.51 10^6/uL (4.1-5.3); Red Cell Distribution Width 14.3 % (12.1-15.1); White Blood Count 18.4 10^3/uL (4.0-10.0)
[2020-08-14 19:48] LABS: Alanine Aminotransferase 82 U/L (0-33); Albumin Level 3.3 g/dL (3.5-5.2); Alkaline Phosphatase 367 IU/L (35-105); Blood Urea Nitrogen 13 mg/dL (6-20); Calcium 8.5 mg/dL (8.5-10.5); Carbon Dioxide 22 mmol/L (22-29); Chloride 93 mmol/L (98-107); Globulin 3.2 g/dL (1.3-4.6); Glomerular Filtration Rate 75.6 mL/min (90-130); Glucose 300 mg/dL (65-115); Osmolality Calculated 275 mOsm/kg (285-295); Sodium 127 mmol/L (136-145); Total Bilirubin 0.5 mg/dL (0.15-1.2); Total Protein 6.5 g/dL (6.6-8.7)
[2020-08-14 19:49] LABS: Troponin(5th) Baseline 10 ng/L (0-10)
[2020-08-14 19:57] LABS: Anion Gap 16.9 (5-19); Aspartate Amino Transferase 94 U/L (0-32); Potassium 4.9 mmol/L (3.5-5.1)
--- NOTE | 2020-08-14 19:58 | CTR_ITS ---
PROCEDURE INFORMATION: Exam: CT Angiography Chest With Contrast Exam date and time: 08/14/2020 7:59 PM Age: 49 years old Clinical indication: Prior surgery; Surgery type: Port; Patient HX: Chest pain across shoulders into back, can't take a deep breath in; Additional info: Chest pain, SOB, family history of pe TECHNIQUE: Imaging protocol: Computed tomographic angiography of the chest with contrast. 3D rendering (Not supervised by radiologist): MIP and/or 3D reconstructed images were created by the technologist. Radiation optimization: All CT scans at this facility use at least one of these dose optimization techniques: automated exposure control; mA and/or kV adjustment per patient size (includes targeted exams where dose is matched to clinical indication); or iterative reconstruction. Contrast material: OMNI 350; Contrast volume: 66 ml; Contrast route: INTRAVENOUS (IV); COMPARISON: CT chest w con* [id number] 06/30/2020 9:06 AM RADIATION DOSE METRICS: Total DLP (mGy-cm): 563.61 FINDINGS: There are degenerative changes of the spine. Old healed rib fractures are seen bilaterally. Emphysematous changes are seen throughout the lungs. There is some infiltrate within the left lung base with a left pleural effusion. There is atelectasis involving the right lung base. There is no pneumothorax. There are no suspicious pulmonary nodules. The central airways are normal in caliber. The thyroid gland is unremarkable. There is no axillary adenopathy. There is mediastinal adenopathy. There is hilar adenopathy. Interrogation of the pulmonary arteries in multiple planes shows no evidence for pulmonary embolism. The aorta is normal in caliber with no evidence for aneurysm or dissection. The heart is normal in size. There is a pericardial effusion. The upper abdominal structures are unremarkable. CT/CT angio chest PE protcl [id number] IMPRESSION: 1. No evidence for pulmonary embolism. 2. New infiltrates within the left lung base with new left pleural effusion. 3. Pericardial effusion which is new as well. 4. Stable mediastinal and hilar adenopathy. 5. Pulmonary emphysema. Radiation Dose CTDIVOL = (mGy): DLP = 563.61 (mGy-cm)
[2020-08-14] MEDS: ondansetron 2 mg/ML SDV 2 mL 4 MG IVP (19:59)
[2020-08-14] MEDS: morphine 4 mg/mL SDV 1 mL IVP (20:05)
--- NOTE | 2020-08-14 20:06 | W.ED.CHESTPA ---
HPI - Chest Pain General: Chief Complaint: Chest Pain Stated Complaint: Chest pain Time Seen by Provider: 08/14/20 18:28 Source: patient Mode of arrival: ambulatory Limitations: no limitations History of Present Illness: HPI narrative: Patient is a 49-year-old female with a history of blood clot in her liver (likely portal vein thrombosis), HTN, COPD, PVD and a family history of DVTs and PEs who presented to the emergency department with complaints of chest pain that started this morning. Pain has persisted and she is concerned about this. She has not taken any medications. She has no prior cardiac history. She denies nausea or vomiting but has some dizziness. MD complaint: chest pain Onset (ago): hour(s) (12) Timing of current episode: constant Prior episodes: No Onset: during rest Pain location: left chest Pain radiation: left shoulder Severity: severe Quality: sharp Relieving factors: nothing Exacerbating factors: nothing Associated symptoms: Deny abdominal pain, diaphoresis, dyspnea, fever(s), leg edema, nausea, palpitations, sense of impending doom, syncope or vomiting Treatment prior to arrival: none Review of Systems General: Reports: 10 or more systems reviewed and unremarkable except in HPI and below Const: Denies: fever(s) or diaphoresis Eyes: Denies: change in vision or blurry vision ENMT: Denies: throat pain, enlarged tonsils, odynophagia, hoarseness, mouth pain or swelling of lips/tongue Card: Denies: palpitations or syncope Resp: Denies: dyspnea GI: Denies: abdominal pain, nausea or vomiting : Denies: flank pain, difficulty voiding, dysuria, urinary frequency, urinary urgency or urinary hesitancy Musc: Denies: neck pain, back pain or extremity swelling Skin/Breast: Denies: rash, pruritus or erythema Neuro: Denies: headache(s), numbness in extremities or weakness in extremities Endo: Denies: polyuria, polydipsia or tired all the time PFS ED PFSH: Medical History (Reviewed 08/14/20 @ 20:23 by Sandra French MD, [facility] [place]) Acute kidney injury Avulsion fracture of left ankle Cervical spondylosis Chronic anticoagulation Cigarette smoker motivated to quit Claudication Closed fracture of right distal fibula DDD (degenerative disc disease), cervical Diabetes Dyspnea Emphysema/COPD Encounter for long-term (current) use of NSAIDs Essential hypertension Fibromyalgia Fracture Immunocompromised Intractable nausea and vomiting Long-term current use of opiate analgesic Onychodystrophy Onychodystrophy Osteoporosis Pain management contract signed Pain, joint, multiple sites Portal vein thrombosis Rheumatoid arthritis Right foot pain Spondylosis of lumbar region without myelopathy or radiculopathy Syncope Tobacco use disorder Surgical History (Reviewed 08/14/20 @ 20:23 by Sandra French MD, [facility] [place]) H/O dilation and curettage Hx laparoscopic cholecystectomy Hx of section (~1989) Hx of hysterectomy Family History (Reviewed 08/14/20 @ 20:23 by Sandra French MD, [facility] [place]) Mother Stroke Cancer SKIN CANCER Sister Stroke Other Diabetes Myocardial infarct Denies family history of Anesthesia complication Bleeding disorder Social History (Reviewed 08/14/20 @ 20:23 by Sandra French MD, [facility] [place]) Smoking and tobacco status: current every day smoker cigarettes Years cigarettes smoked: 40 Quit status (tobacco): considering quitting Second hand smoke exposure: Yes Smoking risk assessment/counseling performed?: Yes Alcohol intake: former Caregiver/support person: Yes Lives independently: Yes Household members: spouse Marital status: Current occupational status: disabled History of recent travel: No Current gender identity: Female Physical Exam Const: COMMON NORMALS: no acute distress, average body habitus, patient oriented x3, no limitations, healthy appearing, alert and well nourished HENMT: COMMON NORMALS: normocephalic, atraumatic and moist oral mucous membranes HEAD & SCALP: normocephalic and atraumatic Neck/C-Spine: COMMON NORMALS: no meningeal signs and no JVD Chest: COMMONS NORMALS: normal inspection of the chest CHEST: Yes tenderness Resp: COMMON NORMALS: normal respiratory effort, No retractions, No use of accessory muscles, clear to auscultation bilaterally and percussion normal AUSCULTATION: clear to auscultation bilaterally PERCUSSION: percussion normal Cardio: COMMON NORMALS: no JVD, regular rate, regular rhythm, S1 normal heart sound present, S2 normal heart sound present, No gallops present (Cardio), No clicks present (Cardio), No murmurs present (Cardio), No rub (Cardio) and Peripheral pulses 2+ throughout RATE: regular rate RHYTHM: regular rhythm HEART SOUNDS: S1 normal heart sound present and S2 normal heart sound present PERIPHERAL PULSES: Peripheral pulses 2+ throughout GI: COMMON NORMALS: Normal to inspection, nondistended, normoactive bowel sounds present, Soft to palpation, No hepatosplenomegaly present, no masses and no bruits PALPATION: Yes Soft to palpation, Yes Tenderness to palpation present (GI) (epigastric) and Yes No hepatosplenomegaly present Extremity: COMMON NORMALS: normal to inspection, full ROM, capillary refill normal, no calf tenderness and no pedal edema Neuro: COMMON NORMALS: patient oriented x3 SENSORIUM/ORIENTATION: Yes alert MENINGEAL SIGNS: Yes no meningeal signs Skin: COMMON NORMALS: no rashes or lesions noted, no wounds, turgor normal, no jaundice, no petechiae and no mottling GENERAL SKIN EXAM: no rashes or lesions noted and turgor normal Course Consultations: Consultation #1: Discussed the patient with Dr. Hardy, director sales who did a bedside echocardiogram to rule out cardiac tamponade. Echo negative for tamponade. Time: 22:00 Consultation #2: Discussed the patient with Dr. Loredo, hospitalist and he kindly accepted the patient to his service. Time: 22:25 Vital Signs: Vital signs: Vital Signs Temperature 97.8 F 08/14/20 18:20 Pulse Rate 92 08/14/20 23:20 Respiratory Rate 18 08/14/20 23:20 Blood Pressure 100/65 08/14/20 23:20 Pulse Oximetry 93 08/14/20 23:20 MDM - Chest Pain MDM Narrative: Medical decision making narrative: This 49-year-old female patient presents to the emergency department with complaints of chest pain. Symptoms started today. She denies any fever, chest pain was worse when she lays on her back. She had some shortness of breath. Evaluation in the emergency department showed she had leukocytosis, elevated D-dimer. CTA of her lungs was negative for PE but showed some pericardial effusion and left lower lobe pneumonia. While she was in the emergency department her blood pressure was on the lower side of normal, and in addition with tachycardia she meets sepsis criteria. She was given a fluid bolus and started on IV antibiotics. She may have a mild case of pericarditis or the pericardial effusion may be an incidental finding. Medical Records: Attestation: I reviewed the patient's medical records. Lab Data: Attestation: I reviewed the patient's lab results. Labs: Lab Results 08/14/20 08/14/20 08/14/20 Range/Units 19:17 19:17 19:17 WBC 18.4 H (4.0-10.0) 10^3/ uL RBC 4.51 (4.1-5.3) 10^6/u L Hgb 13.5 (11.5-15.3) g/dL Hct 42.4 (37.0-47.0) % MCV 94.0 (81-99) fL MCH 29.9 (28.0-34.0) pg MCHC 31.8 (30.0-36.0) g/dL RDW 14.3 (12.1-15.1) % Plt Count 162 (130-400) 10^3/c mm MPV 9.8 (7.4-10.4) fL Neut % (Auto) 83.0 % Lymph % (Auto) 6.7 % Kimble % (Auto) 8.3 % Eos % (Auto) 0.6 % Baso % (Auto) 0.6 % Neut # (Auto) 15.29 H (1.8-7.7) 10^3/u L Lymph # (Auto) 1.2 (0.8-4.8) 10^3/u L Kimble # (Auto) 1.5 H (0.2-0.9) 10^3/u L Eos # (Auto) 0.1 (0.0-0.8) 10^3/u L Baso # (Auto) 0.1 (0.0-0.1) 10^3/u L Nucleated RBC % (a uto) 0 % Nucleated RBCs # 0.0 /100WBC D-Dimer (0-0.59) ug/mIFE U Sodium 127 L (136-145) mmol/L Potassium 4.9 (3.5-5.1) mmol/L Chloride 93 L (98-107) mmol/L Carbon Dioxide 22 (22-29) mmol/L Anion Gap 16.9 (5-19) BUN 13 (6-20) mg/dL Creatinine 0.8 (0.5-0.9) mg/dL GFR Calculation 75.6 L (90-130) mL/min Glucose 300 H (65-115) mg/dL Calculated Osmolal ity 275 L (285-295) mOsm/k g Calcium 8.5 (8.5-10.5) mg/dL Total Bilirubin 0.5 (0.15-1.2) mg/dL AST 94 H (0-32) U/L ALT 82 H (0-33) U/L Alkaline Phosphata se 367 H (35-105) IU/L Troponin T Baselin e 10 (0-10) ng/L Troponin T 120 Min [place] (0-10) ng/L Delta Troponin T (0-10) ABS# C-Reactive Protein (0.0-4.9) mg/L NT-Pro-B Natriuret Pep (0-125) pg/mL Total Protein 6.5 L (6.6-8.7) g/dL Albumin 3.3 L (3.5-5.2) g/dL Globulin 3.2 (1.3-4.6) g/dL 08/14/20 08/14/20 08/14/20 Range/Units 19:17 19:17 19:17 WBC (4.0-10.0) 10^3/ uL RBC (4.1-5.3) 10^6/u L Hgb (11.5-15.3) g/dL Hct (37.0-47.0) % MCV (81-99) fL MCH (28.0-34.0) pg MCHC (30.0-36.0) g/dL RDW (12.1-15.1) % Plt Count (130-400) 10^3/c mm MPV (7.4-10.4) fL Neut % (Auto) % Lymph % (Auto) % Kimble % (Auto) % Eos % (Auto) % Baso % (Auto) % Neut # (Auto) (1.8-7.7) 10^3/u L Lymph # (Auto) (0.8-4.8) 10^3/u L Kimble # (Auto) (0.2-0.9) 10^3/u L Eos # (Auto) (0.0-0.8) 10^3/u L Baso # (Auto) (0.0-0.1) 10^3/u L Nucleated RBC % (a uto) % Nucleated RBCs # /100WBC D-Dimer 1.50 H (0-0.59) ug/mIFE U Sodium (136-145) mmol/L Potassium (3.5-5.1) mmol/L Chloride (98-107) mmol/L Carbon Dioxide (22-29) mmol/L Anion Gap (5-19) BUN (6-20) mg/dL Creatinine (0.5-0.9) mg/dL GFR Calculation (90-130) mL/min Glucose (65-115) mg/dL Calculated Osmolal ity (285-295) mOsm/k g Calcium (8.5-10.5) mg/dL Total Bilirubin (0.15-1.2) mg/dL AST (0-32) U/L ALT (0-33) U/L Alkaline Phosphata se (35-105) IU/L Troponin T Baselin e (0-10) ng/L Troponin T 120 Min [place] (0-10) ng/L Delta Troponin T (0-10) ABS# C-Reactive Protein 66.8 H (0.0-4.9) mg/L NT-Pro-B Natriuret Pep 1374 H (0-125) pg/mL Total Protein (6.6-8.7) g/dL Albumin (3.5-5.2) g/dL Globulin (1.3-4.6) g/dL 08/14/20 Range/Units 20:50 WBC (4.0-10.0) 10^3/ uL RBC (4.1-5.3) 10^6/u L Hgb (11.5-15.3) g/dL Hct (37.0-47.0) % MCV (81-99) fL MCH (28.0-34.0) pg MCHC (30.0-36.0) g/dL RDW (12.1-15.1) % Plt Count (130-400) 10^3/c mm MPV (7.4-10.4) fL Neut % (Auto) % Lymph % (Auto) % Kimble % (Auto) % Eos % (Auto) % Baso % (Auto) % Neut # (Auto) (1.8-7.7) 10^3/u L Lymph # (Auto) (0.8-4.8) 10^3/u L Kimble # (Auto) (0.2-0.9) 10^3/u L Eos # (Auto) (0.0-0.8) 10^3/u L Baso # (Auto) (0.0-0.1) 10^3/u L Nucleated RBC % (a uto) % Nucleated RBCs # /100WBC D-Dimer (0-0.59) ug/mIFE U Sodium (136-145) mmol/L Potassium (3.5-5.1) mmol/L Chloride (98-107) mmol/L Carbon Dioxide (22-29) mmol/L Anion Gap (5-19) BUN (6-20) mg/dL Creatinine (0.5-0.9) mg/dL GFR Calculation (90-130) mL/min Glucose (65-115) mg/dL Calculated Osmolal ity (285-295) mOsm/k g Calcium (8.5-10.5) mg/dL Total Bilirubin (0.15-1.2) mg/dL AST (0-32) U/L ALT (0-33) U/L Alkaline Phosphata se (35-105) IU/L Troponin T Baselin e (0-10) ng/L Troponin T 120 [address] [place] 8.67 (0-10) ng/L Delta Troponin T -1.33 L (0-10) ABS# C-Reactive Protein (0.0-4.9) mg/L NT-Pro-B Natriuret Pep (0-125) pg/mL Total Protein (6.6-8.7) g/dL Albumin (3.5-5.2) g/dL Globulin (1.3-4.6) g/dL Imaging Data^: CTA Chest: Attestation: I personally reviewed and interpreted this imaging study as follows: Radiologist's impression: [address] [address] [address] Scan Report Signed Patient: Erin Kelley #: [id number] : 1970Acct#:[id number] Age/Sex: 49 / FADM Date: 08/14/20 Loc: ERRoom/Bed: Attending Dr: Ordering Provider/Ordering MD: Sandra French MD, [facility] [place] Date of Service: 08/14/20 Procedure(s): CT angio chest PE protcl [id number] Accession Number(s): [id number] Report Number: [id number] PROCEDURE INFORMATION: Exam: CT Angiography Chest With Contrast Exam date and time: 08/14/2020 7:59 PM Age: 49 years old Clinical indication: Prior surgery; Surgery type: Port; Patient HX: Chest pain across shoulders into back, can't take a deep breath in; Additional info: Chest pain, SOB, family history of pe TECHNIQUE: Imaging protocol: Computed tomographic angiography of the chest with contrast. 3D rendering (Not supervised by radiologist): MIP and/or 3D reconstructed images were created by the technologist. Radiation optimization: All CT scans at this facility use at least one of these dose optimization techniques: automated exposure control; mA and/or kV adjustment per patient size (includes targeted exams where dose is matched to clinical indication); or iterative reconstruction. Contrast material: OMNI 350; Contrast volume: 66 ml; Contrast route: INTRAVENOUS (IV); COMPARISON: CT chest w con* [id number] 06/30/2020 9:06 AM RADIATION DOSE METRICS: Total DLP (mGy-cm): 563.61 FINDINGS: There are degenerative changes of the spine. Old healed rib fractures are seen bilaterally. Emphysematous changes are seen throughout the lungs. There is some infiltrate within the left lung base with a left pleural effusion. There is atelectasis involving the right lung base. There is no pneumothorax. There are no suspicious pulmonary nodules. The central airways are normal in caliber. The thyroid gland is unremarkable. There is no axillary adenopathy. There is mediastinal adenopathy. There is hilar adenopathy. Interrogation of the pulmonary arteries in multiple planes shows no evidence for pulmonary embolism. The aorta is normal in caliber with no evidence for aneurysm or dissection. The heart is normal in size. There is a pericardial effusion. The upper abdominal structures are unremarkable. CT/CT angio chest PE protcl [id number] IMPRESSION: 1. No evidence for pulmonary embolism. 2. New infiltrates within the left lung base with new left pleural effusion. 3. Pericardial effusion which is new as well. 4. Stable mediastinal and hilar adenopathy. 5. Pulmonary emphysema. Radiation Dose CTDIVOL = (mGy): DLP = 563.61 (mGy-cm) Dictated By:Gonzalo Sylvester MD Signed By:Gonzalo Sylvester MDSigned Date/Time:08/14/202032 DD/ 31 CXR: Attestation: I personally reviewed and interpreted this imaging study as follows: Radiologist's impression: [address] [address] XRay Report Signed Patient: Erin Kelley #: [id number] : 1970Acct#:[id number] Age/Sex: 49 / FADM Date: 08/14/20 Loc: ERRoo/Bed: Attending Dr: Ordering Provider/Ordering MD: Jossie Adler Date of Service: 08/14/20 Procedure(s): XR chest 1V portable [id number] Accession Number(s): [id number] Report Number: [id number] PROCEDURE INFORMATION: Exam: XR Chest, 1 View Exam date and time: 08/14/2020 6:26 PM Age: 49 years old Clinical indication: Chest pain; Additional info: Cp TECHNIQUE: Imaging protocol: XR of the chest Views: 1 view. COMPARISON: CR XR chest 2V* [id number] 08/10/2020 5:00 PM FINDINGS: The lungs are clear of infiltrate. There are no pleural effusions or pneumothorax. The heart size and pulmonary vascularity are normal. The there has been no change since the previous exam. XR/XR chest 1V portable [id number] IMPRESSION: No active disease. Dictated By:Gonzalo Sylvester MD Signed By:Gonzalo Sylvester MDSigned Date/Time:08/14/201901 DD/ 99 EKG Data^: EKG 1: Attestation: I personally reviewed and interpreted this EKG as follows: EKG interpretation date: 08/14/20 EKG interpretation time: 18:19 Prior EKG tracings: not available for review Interpretation: Normal sinus rhythm. Heart rate [address] changes.. Normal axis EKG 2: Attestation: I personally reviewed and interpreted this EKG as follows: EKG interpretation date: 08/14/20 EKG interpretation time: 20:37 Prior EKG tracings: available for review Interpretation: Normal sinus rhythm. Heart rate [address] changes. No significant change from prior EKG Discharge Plan Discharge Patient Disposition: Admitted As Inpatient Admit Provider: Jerad Loredo Clinical Impression: Sepsis, Acute pericardial effusion, LLL pneumonia Condition: Stable Coding Level of Care Code ED [employer] Solution Architect for Chg Fwd Exam Comprehensive
--- NOTE | 2020-08-14 20:10 | ECG_ITS ---
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 Measurements Intervals [place] Rate: 85 P: 52 DE: 137 QRS: 63 QRSD: 77 T: 73 QT: 386 QTc: 459 Interpretive Statements SINUS RHYTHM Compared to ECG 05/23/2020 05:36:08 ST (T wave) deviation no longer present Electronically Signed On 08-15-2020 11:02:21 SALESPERSON JEWELRY by Terrell Macias M.D. [id number]
[2020-08-14] MEDS: iohexol 350 mg/mL 100 mL Btl IV (20:22)
[2020-08-14 21:16] LABS: Troponin 5 2HR 8.67 ng/L (0-10)
--- NOTE | 2020-08-14 21:19 | USCV_ITS ---
Erin Kelley Age: 49 Gender: F : 1970 Exam Date: 08/14/2020 21:44 Ordering Phys: Sandra French MD [facility] [place] Technologist: Mario Ray Exam Location: [facility] [place] Indication: PER EFF BP: 99 / 63 HR: 88 Rhythm: Sinus Technical Quality: Adequate MEASUREMENTS (Male / Female) Normal Values 2D ECHO LV Diastolic Diameter PLAX 4.9 cm 4.2 - 5.9 / 3.9 - 5.3 cm LV Systolic Diameter PLAX 3.2 cm IVS Diastolic Thickness 1.0 cm 0.6 - 1.0 / 0.6 - 0.9 cm IVS Systolic Thickness 1.2 cm LVPW Diastolic Thickness 1.2 cm 0.6 - 1.0 / 0.6 - 0.9 cm LVPW Systolic Thickness 1.3 cm LVOT Diameter 2.0 cm LV Ejection Fraction 2D Teich 62.1 % LV Ejection Fraction MOD 2C 66.8 % LV Ejection Fraction 2C AL 65.4 % LA Diameter 3.2 cm LA Width 3.0 cm LA Height 5.2 cm RA Width 3.8 cm RA Height 4.5 cm Aorta at Sinotubular Diameter 2.6 cm M-MODE LV Diastolic Diameter MM 4.9 cm 4.2 - 5.9 / 3.9 - 5.3 cm LV Systolic Diameter MM 2.7 cm LV Ejection Fraction MM Teich 76.1 % IVS Diastolic Thickness MM 0.9 cm 0.6 - 1.0 / 0.6 - 0.9 cm IVS Systolic Thickness MM 2.2 cm LVPW Diastolic Thickness MM 1.2 cm 0.6 - 1.0 / 0.6 - 0.9 cm LVPW Systolic Thickness MM 1.6 cm RV Diastolic Diameter MM 1.6 cm Aortic Annulus Diameter 3.2 cm LA Ao Ratio MM 1.2 MV E Point Septal Separation 0.9 cm DOPPLER AV Peak Velocity 104.0 cm/s LVOT Peak Velocity 102.0 cm/s AV Area Cont Eq vti 4.3 cm squared AV Area Cont Eq pk 3.2 cm squared MV Area PHT 4.3 cm squared Mitral E to A Ratio 0.8 MV E' Velocity 30.5 cm/s Mitral E to MV E' Ratio 9.1 Mitral E to LV E' Lateral Ratio 12.1 Mitral E to LV E' Septal Ratio 7.3 TR Peak Velocity 203.7 cm/s TR Peak Gradient 16.6 mmHg TV Peak E Velocity 79.0 cm/s Right Atrial Pressure 3.0 mmHg Pulmonary Artery Systolic Pressu 19.6 mmHg PV Peak Velocity 98.0 cm/s FINDINGS Left Ventricle Normal left ventricular cavity size. Normal left ventricular systolic function. No regional wall motion abnormalities. Left ventricular ejection fraction is estimated at 60 %. Grade I/IV diastolic dysfunction (abnormal relaxation filling pattern), normal to mildly elevated filling pressures. Right Ventricle Normal right ventricular size. Normal right ventricular systolic function. Right Atrium The right atrium is normal in size. Left Atrium The left atrium is normal in size. Mitral Valve Structurally normal mitral valve without significant stenosis or prolapse. There is no mitral regurgitation. Aortic Valve Structurally normal aortic valve without significant sclerosis or stenosis. There is no aortic regurgitation. Tricuspid Valve Structurally normal tricuspid valve without significant stenosis or regurgitation. Pulmonary artery systolic pressure is normal. Pulmonic Valve Structurally normal pulmonic valve without significant stenosis. There is no pulmonic regurgitation. Pericardium Moderate pericardial effusion. Pericardial effusion located anteriorly. Pericardial effusion located posteriorly. Echocardiographic findings suggest a non hemodynamically significant pericardial effusion. No right atrial or right ventricular diastolic collapse. Aorta Normal ascending aorta dimension. CONCLUSIONS 1-Normal left ventricular cavity size. Normal left ventricular systolic function. No regional wall motion abnormalities. Left ventricular ejection fraction is estimated at 60 %. Grade I/IV diastolic dysfunction (abnormal relaxation filling pattern), normal to mildly elevated filling pressures. 2-Moderate pericardial effusion. Pericardial effusion located anteriorly. Pericardial effusion located posteriorly. Echocardiographic findings suggest a non hemodynamically significant pericardial effusion. No right atrial or right ventricular diastolic collapse. 3-Pulmonary artery systolic pressure is within normal limits. 4-Right atrial pressure is around 10 mm of mercury. 5-When compared to the prior echocardiogram dated February, there is moderate pericardial effusion without any significant hemodynamic compromise . Tiffany Hardy MD (Electronically Signed) Final Date: 15 August 2020 16:05 S
[2020-08-14 21:24] LABS: Troponin 5 2HR Delta -1.33 ABS# (0-10)
[2020-08-14] MEDS: sodium chloride 0.9% 500 ML IV (22:31)
[2020-08-14] MEDS: ketorolac 30 mg/mL INJ IVP (22:31)
[2020-08-14 22:32] LABS: NT Pro B Type Natriuretic Pept 1374 pg/mL (0-125)
--- NOTE | 2020-08-14 22:33 | PM.HP ---
Providers/Chief Complaint Primary Care Provider: Nel Peacock MD Chief Complaint: Chest pain History of Present Illness Erin Kelley is a 49 year old female with multiple medical problems including diabetes, rheumatoid arthritis, COPD, emphysema who presented to the emergency department with a complaint of chest pain of onset this morning. Patient described an anterior chest pain, maximum intensity 9/10, worse with deep breathing and leaning forward, no known relieving factors. Patient denies any wheezing but endorsed shortness of breath. She denied any fever. She denied any abdominal pain. Her blood work in the ED is notable for severe leukocytosis. CT chest done demonstrated pericardial effusion, emphysema and left lower lobe pneumonia. Patient was hypotensive in the ED and was given IV normal saline bolus. Her initial troponin is negative. Patient was seen by Dr. Hardy in the ED who performed a bedside echocardiogram to rule out cardiac tamponade as a possible cause of her hypotension. Cardiac tamponade not likely per Dr. Hardy. Hypotension could be related to septic shock. Sepsis protocol initiated. Patient started on IV antibiotics. She is admitted for further management. Review of Systems Narrative: Patient denied any nausea vomiting or diarrhea. She denied any headache. No confusion. Except as documented, all other systems reviewed and negative. Medications/Allergies Home Medications Medication Instructions Recorded Confirmed Last Taken Type apixaban 5 mg tablet 5 mg PO BID 09/04/19 07/30/20 05/18/20 History insulin glargine 100 unit/mL 50 unit SUBCUT BEDTIME 09/04/19 07/30/20 05/17/20 History subcutaneous solution ropinirole 2 mg tablet 2 mg PO BEDTIME 09/04/19 07/30/20 05/17/20 History rosuvastatin 20 mg tablet 20 mg PO DAILY 09/04/19 07/30/20 05/17/20 History escitalopram oxalate 20 mg tablet 20 mg PO DAILY 09/05/19 07/30/20 05/18/20 History omeprazole 40 mg capsule,delayed 40 mg PO DAILY cap 09/05/19 07/30/20 05/18/20 History release nitroglycerin 0.4 mg sublingual 0.4 mg SUBLINGUAL Q5M PRN 30 Days 09/09/19 07/30/20 Unknown Rx tablet #25 tab isosorbide dinitrate 30 mg tablet 15 mg PO BID 90 Days #90 tab 10/03/19 07/30/20 05/18/20 Rx Glucagon (HCl) Emergency Kit 1 mg SUBCUT Q20M PRN #0 11/01/19 07/30/20 Unknown History aspirin [Aspir-81] 81 mg PO DAILY 11/01/19 07/30/20 05/18/20 History epinephrine [EpiPen 2-Carrington] See Rx Instructions .ROUTE 11/01/19 07/30/20 Unknown History .COMPLEX PRN insulin aspart U-100 [Novolog See Rx Instructions .ROUTE .COMPLEX 11/01/19 07/30/20 12/12/19 History Flexpen U-100 Insulin] trazodone 50 mg tablet 50 mg PO BEDTIME tab 01/09/20 07/30/20 05/17/20 History duloxetine 30 mg capsule,delayed 30 mg PO DAILY 30 Days #30 cap 03/18/20 07/30/20 05/18/20 Rx release albuterol sulfate 2.5 mg INHALATION Q6H PRN 04/01/20 07/30/20 Unknown History hydroxychloroquine 200 mg tablet 200 mg PO BID #60 tab 05/12/20 07/30/20 05/18/20 Rx Combivent Respimat 1 puff INHALATION Q6H PRN 05/18/20 07/30/20 Unknown History Cosentyx Pen 150 mg SUBCUT Q30D 05/18/20 07/30/20 Unknown History Bevespi Aerosphere 2 puff INHALATION BID 05/28/20 07/30/20 Unknown History amlodipine 5 mg PO DAILY #30 tab 06/04/20 07/30/20 Unknown Rx gabapentin 300 mg PO TID #10 cap 06/04/20 07/30/20 Unknown Rx sulfasalazine 500 mg tablet 0.5 g PO DAILY #30 tab 06/18/20 07/30/20 Unknown Rx baclofen 10 mg tablet 10 mg PO TID PRN #10 tab 06/26/20 07/30/20 Unknown Rx ibuprofen 800 mg tablet 800 mg PO BID PRN 30 Days #60 tab 06/26/20 07/30/20 Unknown Rx oxycodone 15 mg tablet 15 mg PO BID PRN 30 Days #60 tab 06/26/20 07/30/20 Unknown Rx oxycodone 15 mg tablet 15 mg PO BID PRN 30 Days #60 tab 06/26/20 07/30/20 Unknown Rx sulfasalazine 500 mg tablet 0.5 g PO DAILY 06/26/20 07/30/20 Unknown History tramadol 50 mg tablet 50 mg PO TID PRN #90 tab 06/26/20 07/30/20 Unknown Rx nicotine 14 mg/24 hr daily 1 patch TRANSDERMAL DAILY #28 ea 07/13/20 07/30/20 Unknown Rx transdermal patch doxycycline hyclate 100 mg capsule 100 mg PO BID #28 cap 07/16/20 07/30/20 Unknown Rx silver sulfadiazine 1 % topical 1 applic TOPICAL BID #50 g 07/23/20 07/30/20 Unknown Rx cream cilostazol 50 mg tablet See Rx Instructions .ROUTE 08/10/20 Unknown Rx .COMPLEX #60 tab Allergies Allergy/AdvReac Type Severity Reaction Status Date / Time bee venom protein (honey bee) Allergy ALGY-Anaphy Verified 07/30/20 09:20 laxis PFSH Acute PFSH: Medical History Acute kidney injury Avulsion fracture of left ankle Cervical spondylosis Chronic anticoagulation Cigarette smoker motivated to quit Claudication Closed fracture of right distal fibula DDD (degenerative disc disease), cervical Diabetes Dyspnea Emphysema/COPD Encounter for long-term (current) use of NSAIDs Essential hypertension Fibromyalgia Fracture Immunocompromised Intractable nausea and vomiting Long-term current use of opiate analgesic Onychodystrophy Onychodystrophy Osteoporosis Pain management contract signed Pain, joint, multiple sites Portal vein thrombosis Rheumatoid arthritis Right foot pain Spondylosis of lumbar region without myelopathy or radiculopathy Syncope Tobacco use disorder Surgical History H/O dilation and curettage Hx laparoscopic cholecystectomy Hx of section (~1989) Hx of hysterectomy Family History Mother Stroke Cancer SKIN CANCER Sister Stroke Other Diabetes Myocardial infarct Denies family history of Anesthesia complication Bleeding disorder Social History Smoking and tobacco status: current every day smoker cigarettes Years cigarettes smoked: 40 Quit status (tobacco): considering quitting Second hand smoke exposure: Yes Smoking risk assessment/counseling performed?: Yes Alcohol intake: former Caregiver/support person: Yes Lives independently: Yes Household members: spouse Marital status: Current occupational status: disabled History of recent travel: No Current gender identity: Female Vitals/I&O/Wt Last Vital Signs Temp 97.8 F 08/14/20 18:20 Pulse 89 08/14/20 18:20 Resp 21 H 08/14/20 20:05 BP 95/68 08/14/20 18:20 Pulse Ox 96 08/14/20 20:05 Weight last 48 hrs Weight 87.09 kg Physical Exam Const: COMMON NORMALS: no acute distress, patient oriented x3 and alert HENMT: COMMON NORMALS: normocephalic, atraumatic and moist oral mucous membranes Eye: COMMON NORMALS: Equal, round and reactive pupils present, EOMs intact bilaterally, conjunctivae normal and no scleral icterus Neck/C-Spine: COMMON NORMALS: no lymphadenopathy, supple, no JVD and Thyroid normal Lymph: LYMPHATIC: no lymphadenopathy noted Chest: COMMONS NORMALS: normal inspection of the chest and normal palpation of entire chest wall Resp: COMMON NORMALS: normal respiratory effort, No retractions, No use of accessory muscles and clear to auscultation bilaterally Cardio: COMMON NORMALS: no JVD, regular rate, regular rhythm, S1 normal heart sound present, S2 normal heart sound present, No gallops present (Cardio), No murmurs present (Cardio) and No rub (Cardio) GI: COMMON NORMALS: Normal to inspection, nondistended, normoactive bowel sounds present, Soft to palpation, non-tender, No hepatosplenomegaly present and no bruits : COMMON NORMALS: Yes no CVA tenderness Back/Pelvis: COMMON NORMALS: thoraco-lumbar ROM normal Extremity: COMMON NORMALS: capillary refill normal, no joint enlargement, no clubbing, cyanosis or edema, no calf tenderness and no pedal edema Neuro: COMMON NORMALS: patient oriented x3, CN's II-XII intact bilaterally and no focal motor deficits Psych: COMMON NORMALS: mental status grossly normal, Normal thought process present, cooperative, normal affect and speech normal Skin: COMMON NORMALS: no rashes or lesions noted, turgor normal and no jaundice Data : 08/15/20 05:30 08/15/20 05:30 A&P Assessment and plan (1) Septic shock: Status: Acute (2) Pneumonia: Status: Acute (3) Pericardial effusion: Status: Acute (4) Emphysema/COPD: Status: Acute Qualifiers: Emphysema type: centrilobular Qualified Code(s): J43.2 - Centrilobular emphysema (5) Rheumatoid arthritis: Status: Acute Qualifiers: Rheumatoid arthritis location: unspecified site Rheumatoid factor presence: unspecified presence Qualified Code(s): M06.9 - Rheumatoid arthritis, unspecified (6) Chronic anticoagulation: Status: Acute (7) Portal vein thrombosis: Status: Acute (8) Diabetes: Status: Acute (9) Hyponatremia: Status: Acute Additional A&P Information Admit patient to the intensive care unit. Continue sepsis protocol initiated in the ED We will treat with broad-spectrum antibiotics-IV cefepime and vancomycin Follow blood cultures. Check serial lactate levels Aggressive IV hydration with normal saline per sepsis protocol. Give at least 2 L bolus. Levophed drip patient still hypotensive after the bolus. Normal saline should also help treat the hyponatremia Echocardiogram is pending Cardiology consult for pericardial effusion Patient report missing 1 month of her rheumatoid arthritis medications which include hydroxychloroquine. She mentioned she is on prednisone 7.5 mg daily which she has been compliant with. Possible causes of the pericardial effusion include rheumatoid arthritis flare. We will resume her hydroxychloroquine dose. Start oral prednisone 20 mg daily. Continue Eliquis for portal vein thrombosis. Supplemental oxygen as needed. Bronchodilators for COPD/emphysema Lantus insulin and insulin sliding scale for glucose management. Attestations Medical Necessity Statement*: Patient will need to be hospitalized for further treatment of septic shock and pericarditis. She is expected to spend more than 2 midnights. Time Spent in Patient Care: 78 minutes. 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
[2020-08-14] MEDS: piperacillin-tazobactam 3.375 GM in sodium chloride 0.9% (plus) 50 ML IV (23:15)
[2020-08-14 23:17] LABS: C Reactive Protein 66.8 mg/L (0.0-4.9)
[2020-08-14 23:42] LABS: Lactate (Lactic Acid level) 1.9 mmol/L (0.5-2.2)
[2020-08-14 23:53] LABS: Erythrocyte Sedimentation Rate 35 mm/hr (0-15)
[2020-08-15] VITALS (67 sets, daily range): BP systolic 65–145; BP diastolic 45–94; PULSE 58–96; RESP 13–30; TEMP 36.3–36.9; O2SAT 82–97
[2020-08-15] MEDS: sodium chloride 0.9% 1,000 ML 100 ML IV ×2 (00:23→08:24)
[2020-08-15] MEDS: famotidine 20 mg/2 mL INJ IVP ×2 (00:28→11:56)
--- NOTE | 2020-08-15 00:55 | PC.PHAR ---
Vancomycin is dosed at 1250mg IVPB ever 12 hours to produce a predicted trough level of 17.19 (population based pharmacokinetic analysis). A trough level has been ordered from the lab to be obtained before the fourth dose to confirm and adjust if needed.
[2020-08-15] MEDS: acetaminophen 325 mg Tablet 650 MG PO (01:02)
[2020-08-15] MEDS: vancomycin 1,250 MG/250 ML PIGGYBACK 250 MG IV ×2 (01:04→14:05)
[2020-08-15 02:03] LABS: Troponin 5 6HR 10.62 ng/L (0-10); Troponin 5 6HR Delta 0.62 ng/L (0-12)
--- NOTE | 2020-08-15 05:00 | PC.NURSE ---
N/V Patient had one episode of nausea and vomited approx. 100mL bile into trash can. Physician to be contacted for nausea meds and regarding current vital signs BP 77/54, R 20 , T 97.7 axillary, HR 87 SR on telemetry, O2 92% on 2L NC, see physician notification.
--- NOTE | 2020-08-15 05:15 | PC.NURSE ---
500mL bolus NS started by this nurse at 0515, documented on by ICU staff, unable to chart.
--- NOTE | 2020-08-15 05:35 | PC.NURSE ---
Report called to Madelin RN in ICU for patient transfer. Patient taken by bed with all personal belongings and chart to ICU 11. Reported to nurse at bedside that patient has attempted to void x2 since being on the floor but unable to void. Patient bladder scanned at 0500 that showed approx. 180-200mL.
[2020-08-15] MEDS: sodium chloride 0.9% 500 ML 999 ML IV (05:41)
--- NOTE | 2020-08-15 05:52 | PC.NURSE ---
Patient arrived to ICU at 0534. Patient is alert and orientated. Lung sounds clear and diminished in bases, BS active in all 4 quadrants. Radioisotope Technician strengths equal. Dorsal pedal pulses present 3+ bilaterally. No complaints of pain. Continent. NC @ 2 L to maintain O2 sats above 90%. BP on soft side at 87/62, MAP of 70. No s/s of distress. Patient is NPO for echo procedure today. Continue care.
[2020-08-15 05:53] LABS: Basophils # 0.1 10^3/uL (0.0-0.1); Basophils % 0.4 %; Eosinophils % 0.1 %; Hematocrit 44.5 % (37.0-47.0); Lymphocytes # 1.6 10^3/uL (0.8-4.8); Lymphocytes % 7.6 %; Mean Corpuscular HGB Conc 31.5 g/dL (30.0-36.0); Mean Corpuscular Hemoglobin 29.7 pg (28.0-34.0); Mean Corpuscular Volume 94.3 fL (81-99); Mean Platelet Volume 10.4 fL (7.4-10.4); Monocytes % 9.5 %; Neutrophils # 16.84 10^3/uL (1.8-7.7); Neutrophils % 81.4 %; Nucleated Red Blood Cells % 0 %; Platelet Count 148 10^3/cmm (130-400); Red Blood Count 4.72 10^6/uL (4.1-5.3); Red Cell Distribution Width 14.5 % (12.1-15.1); White Blood Count 20.7 10^3/uL (4.0-10.0)
--- NOTE | 2020-08-15 06:08 | PC.NURSE ---
18G IV inserted in to right upper arm via ultrasound by Dwayne Haines RN.
--- NOTE | 2020-08-15 06:09 | PC.NURSE ---
[facility] nurse called to update family on patients transfer to ICU, no answer, nurse Annabel left message.
--- NOTE | 2020-08-15 06:09 | PC.NURSE ---
Called Dr. Loredo to update on patients BP, received PRN order for Levophed if needed to maintain BP. Continue care.
--- NOTE | 2020-08-15 06:16 | PC.NURSE ---
Spoke with Star Nash (Prasanth) and updated him on transfer of patient to ICU. Continue care.
[2020-08-15 06:32] LABS: Blood Urea Nitrogen 20 mg/dL (6-20); Calcium 8.1 mg/dL (8.5-10.5); Carbon Dioxide 15 mmol/L (22-29); Chloride 95 mmol/L (98-107); Glomerular Filtration Rate 52.4 mL/min (90-130); Glucose 374 mg/dL (65-115); Magnesium 1.7 mg/dL (1.7-2.3); Osmolality Calculated 282 mOsm/kg (285-295); Sodium 127 mmol/L (136-145); Thyroid Stimulating Hormone 2.49 uIU/mL (0.27-4.20)
[2020-08-15 06:49] LABS: INR 1.07 (0.8-1.2)
[2020-08-15 06:53] LABS: Anion Gap 22.3 (5-19); Potassium 5.3 mmol/L (3.5-5.1)
[2020-08-15] MEDS: ondansetron 2 mg/ML SDV 2 mL 4 MG IVP (07:13)
[2020-08-15 07:52] LABS: Glucose Point of Care 383 mg/dL (70-110)
[2020-08-15 08:19] LABS: Urine Appearance Clear (CLEAR); Urine Color Dark Yellow (Yellow)
[2020-08-15 08:20] LABS: Add Urine Microscopic? YES; Bilirubin Urine 1+ (Negative); Blood Urine Neg (Negative); Glucose Urine UA Trace (Normal); Ketones Urine Negative (Negative); Nitrate Urine Negative (Negative); Protein Urine Trace (Negative); Specific Gravity, Urine 1.015 (1.005-1.030); Urobilinogen Urine 4 mg/dL (Negative); pH Urine 5 (5-7)
[2020-08-15 08:22] LABS: Add Urine Culture? No; Bacteria Urine 1+ /hpf; Hyaline Casts Urine 0-4 /lpf; Mucus Urine TRACE /hpf
[2020-08-15] MEDS: duloxetine 30 mg Capsule PO (08:25)
[2020-08-15] MEDS: pantoprazole DR 40 mg Tablet PO (08:25)
[2020-08-15] MEDS: predniSONE 20 mg Tablet PO (08:25)
[2020-08-15] MEDS: apixaban 5 mg Tablet PO ×2 (08:25→17:18)
[2020-08-15] MEDS: hydroxychloroquine 200 mg Tablet PO (08:25)
[2020-08-15] MEDS: escitalopram 10 mg Tablet 20 MG PO (08:25)
--- NOTE | 2020-08-15 08:27 | PC.NURSE ---
Pt complaining of lower back pain and up several times to urinate. No urine output documented. Bladder scanned 450 noted. appears pt had 3L bolus in total. Dent put in and UA sent to lab.
--- NOTE | 2020-08-15 08:37 | PC.NURSE ---
Call put into DR Merlos for BS >350. No sliding scale ordered and HS dose of Lantus not given last night. Order for Lantus 50 U to be given now
--- NOTE | 2020-08-15 08:52 | PC.NURSE ---
Messaged Dr. Merlos regarding Pt labs. K+, Anion gap, Na.
[2020-08-15] MEDS: insulin glargine 100 units/1 mL 50 UNIT SUBCUT (08:56)
--- NOTE | 2020-08-15 10:14 | PM.CONSULT ---
Providers/Reason For Consult Consulting Physican/Specialty*: Cardiology Reason for Consult*: Pericardial effusion, chest pain Attending Physician: Gaurang Castañeda MD Primary Care Provider: Nel Peacock MD History of Present Illness History of Present Illness Erin Kelley is a 49 year old female presented to ER last night with not feeling well chest and back pain get worse upon laying down and relief upon bending forward. She was also noted to be hypotensive with systolic blood pressure around 90 with heart rate was within normal range of less than 90s. CT angio ruled out pulmonary embolism but suggestive of pericardial effusion. I was asked to see the patient. Echocardiogram was performed which showed moderate pericardial effusion of no hemodynamic significance. Physical examination is not also consistent with hemodynamic compromise. Patient denies any exertional component of the chest pain in the past. She has history of smoking and extensive history of rheumatic disorder for which she is taking prednisone. She was ruled out for non-ST ovation ND with non significantly elevated cardiac markers. There is also suspicion of pneumonia for she is getting treated. Echocardiogram showed normal ejection fraction no wall motion abnormality. Review of Systems General: Reports: 10 or more systems reviewed and unremarkable except in HPI and below Narrative: Patient denied any nausea vomiting or diarrhea. She denied any headache. No confusion. Except as documented, all other systems reviewed and negative. Const: Denies: fever(s) or diaphoresis Eyes: Denies: change in vision or blurry vision ENMT: Denies: throat pain, enlarged tonsils, odynophagia, hoarseness, mouth pain or swelling of lips/tongue Card: Denies: palpitations or syncope Resp: Denies: dyspnea GI: Denies: abdominal pain, nausea or vomiting : Denies: flank pain, difficulty voiding, dysuria, urinary frequency, urinary urgency or urinary hesitancy Musc: Denies: neck pain, back pain, extremity swelling or joint warmth Skin/Breast: Denies: rash, pruritus or erythema Neuro: Denies: headache(s), numbness in extremities or weakness in extremities Endo: Denies: polyuria, polydipsia or tired all the time All/Imm: Denies: acute wheezing Meds/Allergies Home Medications and Allergies Home Medications Medication Instructions Recorded Confirmed Last Taken Type apixaban 5 mg tablet 5 mg PO BID 09/04/19 08/15/20 05/18/20 History insulin glargine 100 unit/mL 50 unit SUBCUT DAILY@0800 09/04/19 08/15/20 08/14/20 History subcutaneous solution ropinirole 2 mg tablet 2 mg PO BEDTIME 09/04/19 08/15/20 05/17/20 History rosuvastatin 20 mg tablet 20 mg PO DAILY 09/04/19 08/15/20 08/14/20 History escitalopram oxalate 20 mg tablet 20 mg PO DAILY 09/05/19 08/15/20 05/18/20 History omeprazole 40 mg capsule,delayed 40 mg PO DAILY cap 09/05/19 08/15/20 08/14/20 History release nitroglycerin 0.4 mg sublingual 0.4 mg SUBLINGUAL Q5M PRN 30 Days 09/09/19 08/15/20 Unknown Rx tablet #25 tab isosorbide dinitrate 30 mg tablet 15 mg PO BID 90 Days #90 tab 10/03/19 08/15/20 08/14/20 Rx Glucagon (HCl) Emergency Kit 1 mg SUBCUT Q20M PRN #0 11/01/19 08/15/20 Unknown History epinephrine [EpiPen 2-Carrington] See Rx Instructions .ROUTE 11/01/19 08/15/20 Unknown History .COMPLEX PRN insulin aspart U-100 [Novolog See Rx Instructions .ROUTE .COMPLEX 11/01/19 08/15/20 08/14/20 History Flexpen U-100 Insulin] trazodone 50 mg tablet 50 mg PO BEDTIME tab 01/09/20 08/15/20 08/13/20 History duloxetine 30 mg capsule,delayed 30 mg PO DAILY 30 Days #30 cap 03/18/20 08/15/20 05/18/20 Rx release albuterol sulfate 2.5 mg INHALATION Q6H PRN 04/01/20 08/15/20 08/14/20 History hydroxychloroquine 200 mg tablet 200 mg PO BID #60 tab 05/12/20 08/15/20 05/18/20 Rx Combivent Respimat 1 puff INHALATION Q6H PRN 05/18/20 08/15/20 08/14/20 History Bevespi Aerosphere 2 puff INHALATION BID 05/28/20 08/15/20 08/14/20 History amlodipine 5 mg PO DAILY #30 tab 11/08/15/20 08/14/20 Rx gabapentin 300 mg PO TID #10 cap 06/04/20 08/15/20 08/14/20 Rx sulfasalazine 500 mg tablet 0.5 g PO DAILY #30 tab 06/18/20 08/15/20 Unknown Rx ibuprofen 800 mg tablet 800 mg PO BID PRN 30 Days #60 tab 06/26/20 08/15/20 08/14/20 Rx oxycodone 15 mg tablet 15 mg PO BID PRN 30 Days #60 tab 06/26/20 08/15/20 08/14/20 Rx tramadol 50 mg tablet 50 mg PO TID PRN #90 tab 06/26/20 08/15/20 Unknown Rx nicotine 14 mg/24 hr daily 1 patch TRANSDERMAL DAILY #28 ea 07/13/20 08/15/20 08/14/20 Rx transdermal patch doxycycline hyclate 100 mg capsule 100 mg PO BID #28 cap 07/16/20 08/15/20 Unknown Rx silver sulfadiazine 1 % topical 1 applic TOPICAL BID #50 g 07/23/20 08/15/20 08/14/20 Rx cream cilostazol 50 mg tablet See Rx Instructions .ROUTE 08/10/20 08/15/20 Unknown Rx .COMPLEX #60 tab alprazolam 0.25 mg PO TID PRN 08/15/20 08/15/20 Unknown History aspirin [Aspir-81] 81 mg PO DAILY@0800 08/15/20 08/15/20 08/14/20 History docusate sodium [DOK] 200 mg PO DAILY 08/15/20 08/15/20 Unknown History prednisone 2.5 mg PO DAILY 08/15/20 08/15/20 08/14/20 History prednisone 5 mg PO DAILY 08/15/20 08/15/20 08/14/20 History Allergies Allergy/AdvReac Type Severity Reaction Status Date / Time bee venom protein (honey bee) Allergy ALGY-Anaphy Verified 07/30/20 09:20 laxis Current Medications Current Medications Generic Name Dose Route Start Last Admin Trade Name Freq PRN Reason Stop Dose Admin Acetaminophen 650 mg 08/14/20 23:35 08/15/20 01:02 Acetaminophen 325 Mg Tablet PO 650 mg Q6H PRN Administration Mild/Mod Pain Or Temp >/= 101 Apixaban 5 mg 08/15/20 09:00 08/15/20 08:25 Apixaban 5 Mg Tablet PO 5 mg BID PHONG Administration Duloxetine HCl 30 mg 08/15/20 09:00 08/15/20 08:25 Duloxetine 30 Mg Capsule PO 30 mg DAILY PHONG Administration Escitalopram Oxalate 20 mg 08/15/20 09:00 08/15/20 08:25 Escitalopram 10 Mg Tablet PO 20 mg DAILY PHONG Administration Famotidine 20 mg 08/14/20 23:35 08/15/20 00:28 Famotidine 20 Mg/2 Ml Inj IVP 20 mg Q12H PHONG Administration Hydroxychloroquine Sulfate 200 mg 08/15/20 09:00 08/15/20 08:25 Hydroxychloroquine 200 Mg Tablet PO 200 mg BID PHONG Administration Sodium Chloride 1,000 mls @ 100 mls/hr 08/14/20 23:35 08/15/20 08:24 Sodium Chloride 0.9% IV 100 mls/hr .Q10H PHONG Administration Vancomycin/PEG/NADA/Lysine/Water 1,250 mg in 250 mls @ 250 mls/hr 08/15/20 01:00 08/15/20 02:05 Vancocin IV Infused Q12H PHONG Infusion Ondansetron HCl 4 mg 08/15/20 05:13 08/15/20 07:13 Ondansetron 2 Mg/Ml Sdv 2 Ml IVP 4 mg Q8H PRN Administration NAUSEA AND VOMITING Pantoprazole Sodium 40 mg 08/15/20 09:00 08/15/20 08:[address] 40 Mg Tablet PO 40 mg DAILY PHONG Administration Prednisone 20 mg 08/15/20 09:00 08/15/20 08:25 Prednisone 20 Mg Tablet PO 20 mg DAILY PHONG Administration PFSH Acute PFSH: Medical History Acute kidney injury Avulsion fracture of left ankle Cervical spondylosis Chronic anticoagulation Cigarette smoker motivated to quit Claudication Closed fracture of right distal fibula DDD (degenerative disc disease), cervical Diabetes Dyspnea Emphysema/COPD Encounter for long-term (current) use of NSAIDs Essential hypertension Fibromyalgia Fracture Immunocompromised Intractable nausea and vomiting Long-term current use of opiate analgesic Onychodystrophy Onychodystrophy Osteoporosis Pain management contract signed Pain, joint, multiple sites Portal vein thrombosis Rheumatoid arthritis Right foot pain Spondylosis of lumbar region without myelopathy or radiculopathy Syncope Tobacco use disorder Surgical History (Reviewed 08/14/20 @ 20:23 by Sandra French MD, [facility]) H/O dilation and curettage Hx laparoscopic cholecystectomy Hx of section (~1989) Hx of hysterectomy Family History (Reviewed 08/14/20 @ 20:23 by Sandra French MD, [facility] [place]) Mother Stroke Cancer SKIN CANCER Sister Stroke Other Diabetes Myocardial infarct Denies family history of Anesthesia complication Bleeding disorder Social History (Reviewed 08/14/20 @ 20:23 by Sandra French MD, [facility] [place]) Smoking and tobacco status: current every day smoker cigarettes Years cigarettes smoked: 40 Quit status (tobacco): considering quitting Second hand smoke exposure: Yes Smoking risk assessment/counseling performed?: Yes Alcohol intake: former Caregiver/support person: Yes Lives independently: Yes Household members: spouse Marital status: Current occupational status: disabled History of recent travel: No Current gender identity: Female Dietary Habits: Current diet type/program: diabetic and low carbohydrate Caffeine: Yes Caffeine intake frequency: carbonated beverages and coffee Home Safety: Firearms in home: Yes Firearms unloaded and locked?: Yes Vitals/I&O/Wt Last Vital Signs Temp 97.4 F L 08/15/20 06:45 Pulse 89 08/15/20 08:45 Resp 30 H 08/15/20 08:45 BP 83/64 08/15/20 08:45 Pulse Ox 91 08/15/20 08:30 08/14/20 08/15/20 08/15/20 22:59 06:59 14:59 Intake Total 1382.85 / 1382.85 1000 / 1000 Balance 1382.85 / 1382.85 1000 / 1000 Weight last 48 hrs Weight 207 lb 1 oz Weight 192 lb Physical Exam Narrative: EXAM NARRATIVE: GENERAL: Patient is alert, awake and oriented x3. NECK: No jugular vein distension. HEENT: No cyanosis. No icterus. No pallor. HEART: Regular S1 and S2. No murmur, rub or gallop. LUNGS: Clear to auscultate bilaterally. ABDOMEN: Soft, nontender and nondistended. Positive bowel sounds. No guarding, rebound or tenderness. CENTRAL NERVOUS SYSTEM: Grossly nonfocal. EXTREMITIES: Lower extremities without edema bilaterally. Pulses palpable in the lower extremities, both dorsalis pedis and posterior tibial. Data Micro: Micro: Microbiology 08/14/20 23:00 Blood Culture - Pr eliminary Blood [facility] 08/14/20 23:08 Blood Culture - Pr eliminary Blood [facility] A&P Assessment and plan (1) Chest pain: Most likely secondary to pericarditis advised Indocin or ibuprofen. Patient has risk factor for coronary artery disease at some point or before discharge may require stress test Status: Acute Qualifiers: Chest pain type: chest pain on breathing Qualified Code(s): R07.1 - Chest pain on breathing (2) Pericardial effusion: Patient to moderate pericardial effusion of no hemodynamic significance by echo or clinically. Continue to monitor. Colchicine was added. Etiology could be viral versus immunological however cannot rule out malignancy. 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
[2020-08-15 10:41] LABS: Leukocyte Esterase Urine Negative (Negative)
[2020-08-15] MEDS: colchicine 0.6 mg Tablet PO (11:23)
[2020-08-15] MEDS: cefepime 2,000 MG in sodium chloride 0.9% (plus) 50 ML 100 MG IV ×2 (11:30→17:18)
--- NOTE | 2020-08-15 11:50 | PM.PN ---
Subjective Subjective: Interval history: This is a 49-year-old female with history of rheumatoid arthritis, diabetes, COPD, emphysema who presented with complaints of chest pain. Patient also noted some difficulty with breathing as well as leaning forward. CT imaging showed pericardial effusion. Echocardiogram was ordered. Cardiology was consulted. Patient was started on IV antibiotics. She is also on steroids. The patient is on hydroxychloroquine for her rheumatoid arthritis. Seen this morning reports not feeling well. Continues to have chest pain. Nursing noted that she had drop in blood pressure after being seen this morning. Patient tolerating antibiotics. Echocardiogram read pending Medications: Reviewed: Yes Vitals/I&O/Wt Last Vital Signs Temp 97.4 F L 08/15/20 06:45 Pulse 80 08/15/20 11:00 Resp 25 H 08/15/20 11:00 BP 88/67 08/15/20 11:00 Pulse Ox 94 08/15/20 10:00 08/14/20 08/15/20 08/15/20 22:59 06:59 14:59 Intake Total 1382.85 / 1382.85 1000 / 1000 Balance 1382.85 / 1382.85 1000 / 1000 Weight last 48 hrs Weight 207 lb 1 oz Weight 192 lb Physical Exam Const: GENERAL APPEARANCE: cooperative ORIENTATION/CONSCIOUSNESS: Yes oriented to person, Yes oriented to place and Yes oriented to time Eye: COMMON NORMALS: Equal, round and reactive pupils present and EOMs intact bilaterally PUPIL: Yes Equal, round and reactive pupils present Resp: COMMON NORMALS: normal respiratory effort and No retractions Cardio: COMMON NORMALS: regular rate and regular rhythm RATE: regular rate RHYTHM: regular rhythm GI: COMMON NORMALS: Normal to inspection, nondistended, normoactive bowel sounds present and Soft to palpation PALPATION: Yes Soft to palpation Extremity: OTHER: +synovitis, swelling Neuro: SENSORIUM/ORIENTATION: Yes oriented to person, Yes oriented to place and Yes oriented to time Data : 08/15/20 05:30 08/15/20 05:30 Micro: Microbiology 08/14/20 23:00 Blood Culture - Preliminary Blood SPECIMEN COLLECTED 08/14/20 23:08 Blood Culture - Preliminary Blood SPECIMEN COLLECTED A&P Assessment and plan (1) Hyponatremia: Status: Acute (2) Pericardial effusion: Status: Acute (3) Pneumonia: Status: Acute (4) Septic shock: Status: Acute (5) Rheumatoid arthritis: Status: Acute Qualifiers: Rheumatoid arthritis location: unspecified site Rheumatoid factor presence: unspecified presence Qualified Code(s): M06.9 - Rheumatoid arthritis, unspecified (6) Leukocytosis: Status: Acute Qualifiers: Leukocytosis type: unspecified Qualified Code(s): D72.829 - Elevated white blood cell count, unspecified (7) Chest pain: Status: Acute Additional A&P Information Erin Kelley is a 49 year old female with multiple medical problems including diabetes, rheumatoid arthritis, COPD, emphysema who presented to the emergency department with a complaint of chest pain. Chest shows pleural and pericardial effusion. She is empirically being treated antibiotics. She is on hydroxychloroquine for her RA. She has been placed on steroids. #Chest pain -elevated D-dimer--> no PE -pericardial and pleural effusion on CT chest -ECHO final report pending -continue empiric abx -colcrys added #pericardial effusion -ECHO completed -colcrys, ibu started -hx of inflammatory arthritis #pleural effusion -if worsens will consult pulmonary for evaluation and consideration of thoracentesis, fluid analysis #RA -active -on prednisone -dc HCQ - adjust DMARDs as outpatient #IDDM -restart home medications -lantus, ssi DVT:Eliquis Attestations Medical Necessity Statement*: Erin Kelley's hospital stay will require greater than 2 midnights for pericardial effusion Coding Level of Care Code Acute Hot Die Press Operator for Chg Fwd Diagnoses Hyponatremia E87.1 Pericardial effusion I31.3 Pneumonia J18.9 Septic shock A41.9; R65.21 Rheumatoid arthritis M06.9 Rheumatoid arthritis location: unspecified site Rheumatoid factor presence: unspecified presence Leukocytosis D72.829 Leukocytosis type: unspecified Chest pain R07.9
[2020-08-15 11:53] LABS: Glucose Point of Care 366 mg/dL (70-110)
--- NOTE | 2020-08-15 12:04 | ECG_ITS ---
[facility] Test Date: 2020-08-15 Pat Name: Erin Kelley Department: Room: ICU11 Gender: Female Corporate Investigator: : 1970 Requested By: Gaurang Castañeda Order Number: [id number] Reading MD: STANFORD TONG Measurements Intervals [place] Rate: 79 P: 54 RI: 146 QRS: 72 QRSD: 71 T: 61 QT: 419 QTc: 483 Interpretive Statements SINUS RHYTHM INTERPRETATION BASED ON A DEFAULT AGE OF 40 YEARS Compared to ECG 08/14/2020 20:36:54 No significant changes Electronically Signed On 08-15-2020 21:34:19 FIRST AID DIRECTOR by STANFORD TONG [id number] f
--- NOTE | 2020-08-15 12:10 | XRR_ITS ---
PROCEDURE INFORMATION: Exam: XR Chest, 1 View Exam date and time: 08/15/2020 12:10 PM Age: 49 years old Clinical indication: Chest pain TECHNIQUE: Imaging protocol: XR of the chest Views: 1 view. COMPARISON: CR XR chest 1V portable [id number] 08/14/2020 6:25 PM FINDINGS: Lungs: The lungs are somewhat hyperinflated with increased interstitial markings, likely representing COPD. Bibasilar atelectasis. Pneumonia should be excluded clinically. Pleural spaces: Unremarkable. No pleural effusion. No pneumothorax. Heart/Mediastinum: Stable cardiomediastinal silhouette. Bones/joints: Unremarkable. XR/XR chest 1V portable [id number] IMPRESSION: 1. Bibasilar atelectasis. Pneumonia should be excluded clinically. 2. COPD changes.
[2020-08-15] MEDS: morphine 4 mg/mL SDV 1 mL 2 MG IVP ×3 (13:02→21:23)
--- NOTE | 2020-08-15 13:08 | PC.NURSE ---
Pt up to bedside commode. States that she just does not feel right. breath sounds on right side are diminished and states that she is having crushing pain in her back. Dr. Merlos notified and new orders received.
[2020-08-15 14:06] LABS: Basophils # 0.2 10^3/uL (0.0-0.1); Basophils % 0.6 %; Hematocrit 46.4 % (37.0-47.0); Hemoglobin 14.4 g/dL (11.5-15.3); Lymphocytes # 1.2 10^3/uL (0.8-4.8); Lymphocytes % 4.5 %; Mean Corpuscular Hemoglobin 29.5 pg (28.0-34.0); Mean Corpuscular Volume 95.1 fL (81-99); Mean Platelet Volume 11.1 fL (7.4-10.4); Monocytes # 1.7 10^3/uL (0.2-0.9); Monocytes % 6.3 %; Neutrophils # 23.55 10^3/uL (1.8-7.7); Neutrophils % 87.1 %; Nucleated Red Blood Cells % 0 %; Platelet Count 165 10^3/cmm (130-400); Red Blood Count 4.88 10^6/uL (4.1-5.3); Red Cell Distribution Width 14.6 % (12.1-15.1)
[2020-08-15 14:27] LABS: D Dimer 6.75 ug/mIFEU (0-0.59)
[2020-08-15 14:32] LABS: Blood Urea Nitrogen 25 mg/dL (6-20); Carbon Dioxide 14 mmol/L (22-29); Chloride 94 mmol/L (98-107); Glomerular Filtration Rate 36.6 mL/min (90-130); Glucose 384 mg/dL (65-115); Osmolality Calculated 278 mOsm/kg (285-295); Sodium 124 mmol/L (136-145); Troponin T (5th) Once 21 ng/L (0-10)
[2020-08-15 14:45] LABS: Anion Gap 22.6 (5-19)
[2020-08-15 14:48] LABS: Potassium 6.6 mmol/L (3.5-5.1)
[2020-08-15] MEDS: sodium polystyrene sulfonate 15 gm/60 mL Btl 30 GM PR (15:58)
[2020-08-15] MEDS: ibuprofen 200 mg Tablet 400 MG PO ×2 (15:58→20:22)
[2020-08-15 17:08] LABS: Glucose Point of Care 383 mg/dL (70-110)
[2020-08-15] MEDS: sodium chloride 0.9% 1,000 ML 150 ML IV ×2 (17:19→20:21)
[2020-08-15 19:14] LABS: Potassium 6.5 mmol/L (3.5-5.1)
[2020-08-15 20:05] LABS: Glucose Point of Care 367 mg/dL (70-110)
--- NOTE | 2020-08-15 20:05 | PC.NURSE ---
Evening Blood sugar check was 367. Called Dr. Castañeda to update with results, no answer but Dr. Castañeda called back right away. Received orders for an additional 12units of Novolog one time, and to increase bedtime Lantus dose to 58units.
[2020-08-15] MEDS: insulin glargine 100 units/1 mL 58 UNIT SUBCUT (20:23)
[2020-08-15 21:56] LABS: Blood Urea Nitrogen 32 mg/dL (6-20); Calcium 7.3 mg/dL (8.5-10.5); Chloride 97 mmol/L (98-107); Glomerular Filtration Rate 27.9 mL/min (90-130); Glucose 298 mg/dL (65-115); Osmolality Calculated 284 mOsm/kg (285-295); Sodium 128 mmol/L (136-145)
[2020-08-15 21:58] LABS: Anion Gap 27.5 (5-19); Potassium 5.5 mmol/L (3.5-5.1)
[2020-08-15 22:00] LABS: Carbon Dioxide 9 mmol/L (22-29)
[2020-08-15 22:52] LABS: ABG PCO2 25.4 mmHg (35-45); ABG PH Result 7.22 (7.35-7.45); Alveolar-Arterial Oxygen Gradi 3.3 mmHg (5-10); Arterial Blood Gas Hematocrit 40.9 % (37-47); Base Excess ABG -15.5 mmol/L (-2.0-2.0); Blood Gas Allen Test Pos; Blood Gas Operator Identificat JB; Blood Gas Sample Site Radial, right; Blood Gas Sample Type Arterial; Carboxyhemoglobin 0.8 %THgb (0.4-20.1); HCO3 ABG 10.5 mmol/L (22-26); HGB O2 Sat 93.7 % (95-100); Ionized Calcium Level - ABG 1.1 mmol/L (1.1-1.4); Methemoglobin 0.8 % (0.4-1.5); Oxygen Device NC; Oxygen Saturation ABG 95.3; PO2 ABG 91.4 mmHg (80.0-100.0); Potassium Level - ABG 4.6 mmol/L (3.5-5.0); Total Hemoglobin 13.3 g/dL (12-16)
[2020-08-15 23:37] LABS: Glucose Point of Care 235 mg/dL (70-110)
[2020-08-16] VITALS (78 sets, daily range): BP systolic 62–160; BP diastolic 34–109; PULSE 73–105; RESP 12–24; TEMP 36.4–36.8; O2SAT 65–95
[2020-08-16] MEDS: sodium bicarbonate 150 MEQ in dextrose 5% 1,000 ML 125 MEQ IV (00:28)
[2020-08-16] MEDS: insulin regular-human 250 UNIT in sodium chloride 0.9% 250 ML 5.6 UNIT IV (00:29)
[2020-08-16] MEDS: famotidine 20 mg/2 mL INJ IVP ×3 (00:31→23:42)
[2020-08-16] MEDS: vancomycin 1,250 MG/250 ML PIGGYBACK 250 MG IV (00:37)
[2020-08-16] MEDS: sodium chloride 0.9% 1,000 ML 150 ML IV (00:41)
--- NOTE | 2020-08-16 01:37 | ECG_ITS ---
[facility] Test Date: 2020-08-16 Pat Name: Erin Kelley Department: Room: ICU11 Gender: Female Building Services Engineer: : 1970 Requested By: Jerad Loredo Order Number: [id number] Reading MD: STANFORD TONG Measurements Intervals [place] Rate: 78 P: 68 OR: 149 QRS: 61 QRSD: 75 T: 94 QT: 382 QTc: 436 Interpretive Statements SINUS RHYTHM NONSPECIFIC T-WAVE ABNORMALITY INTERPRETATION BASED ON A DEFAULT AGE OF 40 YEARS Compared to ECG 08/15/2020 12:11:27 T-wave abnormality now present Electronically Signed On 08-16-2020 21:19:11 STORE OPERATIONS MANAGER by STANFORD TONG [id number]
[2020-08-16] MEDS: cefepime 2,000 MG in sodium chloride 0.9% (plus) 50 ML 100 MG IV ×3 (01:52→22:12)
[2020-08-16 02:01] LABS: Glucose Point of Care 245 mg/dL (70-110)
[2020-08-16 02:01] LABS: Glucose Point of Care 234 mg/dL (70-110)
--- NOTE | 2020-08-16 02:09 | PC.NURSE ---
Patient's Anion gap is trending up. PH is low, continued elevated blood sugars. Called Dr. Loredo, received orders to start patient on insulin gtt and bicarb gtt.
--- NOTE | 2020-08-16 02:23 | PC.NURSE ---
Patient's blood pressure continues to be on the low side. Levophed started back to maintain MAP greater than [address] Loredo. Patient lying in bed after having to get up to BSC several times so far thus shift to have loose bowel movements. Patients heart rate increased to 150s-160s which presented as afib w/ RVR. Called Dr. Loredo and while on phone patient converted back to NSR. EKG performed for change.
[2020-08-16 03:50] LABS: Basophils # 0.1 10^3/uL (0.0-0.1); Basophils % 0.4 %; Hematocrit 43.7 % (37.0-47.0); Hemoglobin 13.5 g/dL (11.5-15.3); Lymphocytes # 1.6 10^3/uL (0.8-4.8); Lymphocytes % 6.5 %; Mean Corpuscular HGB Conc 30.9 g/dL (30.0-36.0); Mean Corpuscular Hemoglobin 29.7 pg (28.0-34.0); Mean Corpuscular Volume 96.3 fL (81-99); Mean Platelet Volume 11.6 fL (7.4-10.4); Monocytes % 8.2 %; Neutrophils # 20.22 10^3/uL (1.8-7.7); Neutrophils % 83.8 %; Nucleated Red Blood Cells % 0 %; Platelet Count 109 10^3/cmm (130-400); Red Blood Count 4.54 10^6/uL (4.1-5.3); Red Cell Distribution Width 14.9 % (12.1-15.1); White Blood Count 24.1 10^3/uL (4.0-10.0)
[2020-08-16 04:40] LABS: Glucose Point of Care 186 mg/dL (70-110)
[2020-08-16 04:40] LABS: Glucose Point of Care 232 mg/dL (70-110)
[2020-08-16 04:40] LABS: Glucose Point of Care 197 mg/dL (70-110)
[2020-08-16 06:17] LABS: Glucose Point of Care 156 mg/dL (70-110)
[2020-08-16 06:17] LABS: Anion Gap 22.4 (5-19); Blood Urea Nitrogen 33 mg/dL (6-20); Calcium 7.4 mg/dL (8.5-10.5); Carbon Dioxide 16 mmol/L (22-29); Chloride 97 mmol/L (98-107); Glomerular Filtration Rate 24.8 mL/min (90-130); Glucose 172 mg/dL (65-115); Osmolality Calculated 283 mOsm/kg (285-295); Potassium 4.4 mmol/L (3.5-5.1); Sodium 131 mmol/L (136-145)
[2020-08-16 06:17] LABS: Glucose Point of Care 175 mg/dL (70-110)
--- NOTE | 2020-08-16 08:00 | PM.CONSULT ---
Providers/Reason For Consult Consulting Physican/Specialty*: thais cordon md / telenephrology Reason for Consult*: MARY KAY, hyponatremia, met acidosis, hyperkalemia Attending Physician: Gaurang Castañeda MD Primary Care Provider: Nel Peacock MD History of Present Illness History of Present Illness Erin Kelley is a 49 year old female h/o COVID-19 in 2019, IDDM, RA, COPD. emphysema. Pt admistted w/ CP and weakness- cT scan and echo w/ pericardial effusion. PT was hypotensive in ER- respinded to ivf- per Dr. Hardy no tampenode physiology Pt was given cefepime and vanco. She was eeen by Dr. Hardy on 08-15-20- concerned for perocarditis- pt given colchcein and ibuprofen and ivf. Last night k up to 6.5, bicarb down to 9- given ns and bicarb drip also insulin drip-bp improving and bicarb to 16. cr continues to rise to 2.1- was 0.8 on admission Review of Systems General: Reports: 10 or more systems reviewed and unremarkable except in HPI and below Narrative: weak, cp, no sob. nausea, no mix, diarrhea Meds/Allergies Home Medications and Allergies Home Medications Medication Instructions Recorded Confirmed Last Taken Type apixaban 5 mg tablet 5 mg PO BID 09/04/19 08/15/20 05/18/20 History insulin glargine 100 unit/mL 50 unit SUBCUT DAILY@0800 09/04/19 08/15/20 08/14/20 History subcutaneous solution ropinirole 2 mg tablet 2 mg PO BEDTIME 09/04/19 08/15/20 05/17/20 History rosuvastatin 20 mg tablet 20 mg PO DAILY 09/04/19 08/15/20 08/14/20 History escitalopram oxalate 20 mg tablet 20 mg PO DAILY 09/05/19 08/15/20 05/18/20 History omeprazole 40 mg capsule,delayed 40 mg PO DAILY cap 09/05/19 08/15/20 08/14/20 History release nitroglycerin 0.4 mg sublingual 0.4 mg SUBLINGUAL Q5M PRN 30 Days 09/09/19 08/15/20 Unknown Rx tablet #25 tab isosorbide dinitrate 30 mg tablet 15 mg PO BID 90 Days #90 tab 10/03/19 08/15/20 08/14/20 Rx Glucagon (HCl) Emergency Kit 1 mg SUBCUT Q20M PRN #0 11/01/19 08/15/20 Unknown History epinephrine [EpiPen 2-[place]] See Rx Instructions .ROUTE 11/01/19 08/15/20 Unknown History .COMPLEX PRN insulin aspart U-100 [Novolog See Rx Instructions .ROUTE .COMPLEX 11/01/19 08/15/20 08/14/20 History Flexpen U-100 Insulin] trazodone 50 mg tablet 50 mg PO BEDTIME tab 01/09/20 08/15/20 08/13/20 History duloxetine 30 mg capsule,delayed 30 mg PO DAILY 30 Days #30 cap 03/18/20 08/15/20 05/18/20 Rx release albuterol sulfate 2.5 mg INHALATION Q6H PRN 04/01/20 08/15/20 08/14/20 History hydroxychloroquine 200 mg tablet 200 mg PO BID #60 tab 05/12/20 08/15/20 05/18/20 Rx Combivent Respimat 1 puff INHALATION Q6H PRN 05/18/20 08/15/20 08/14/20 History Bevespi Aerosphere 2 puff INHALATION BID 05/28/20 08/15/20 08/14/20 History amlodipine 5 mg PO DAILY #30 tab 06/04/20 08/15/20 08/14/20 Rx gabapentin 300 mg PO TID #10 cap 06/04/20 08/15/20 08/14/20 Rx sulfasalazine 500 mg tablet 0.5 g PO DAILY #30 tab 06/18/20 08/15/20 Unknown Rx ibuprofen 800 mg tablet 800 mg PO BID PRN 30 Days #60 tab 06/26/20 08/15/20 08/14/20 Rx oxycodone 15 mg tablet 15 mg PO BID PRN 30 Days #60 tab 06/26/20 08/15/20 08/14/20 Rx tramadol 50 mg tablet 50 mg PO TID PRN #90 tab 06/26/20 08/15/20 Unknown Rx nicotine 14 mg/24 hr daily 1 patch TRANSDERMAL DAILY #28 ea 07/13/20 08/15/20 08/14/20 Rx transdermal patch doxycycline hyclate 100 mg capsule 100 mg PO BID #28 cap 07/16/20 08/15/20 Unknown Rx silver sulfadiazine 1 % topical 1 applic TOPICAL BID #50 g 07/23/20 08/15/20 08/14/20 Rx cream cilostazol 50 mg tablet See Rx Instructions .ROUTE 08/10/20 08/15/20 Unknown Rx .COMPLEX #60 tab alprazolam 0.25 mg PO TID PRN 08/15/20 08/15/20 Unknown History aspirin [Aspir-81] 81 mg PO DAILY@0800 08/15/20 08/15/20 08/14/20 History docusate sodium [DOK] 200 mg PO DAILY 08/15/20 08/15/20 Unknown History prednisone 2.5 mg PO DAILY 08/15/20 08/15/20 08/14/20 History prednisone 5 mg PO DAILY 08/15/20 08/15/20 08/14/20 History Allergies Allergy/AdvReac Type Severity Reaction Status Date / Time bee venom protein (honey bee) Allergy ALGY-Anaphy Verified 07/30/20 09:20 laxis Current Medications Current Medications Generic Name Dose Route Start Last Admin Trade Name Freq PRN Reason Stop Dose Admin Acetaminophen 650 mg 08/14/20 23:35 08/15/20 01:02 Acetaminophen 325 Mg Tablet PO 650 mg Q6H PRN Administration Mild/Mod Pain Or Temp >/= 101 Apixaban 5 mg 08/15/20 09:00 08/15/20 17:18 Apixaban 5 Mg Tablet PO 5 mg BID PHONG Administration Colchicine 0.6 mg 08/15/20 10:45 08/15/20 11:23 Colchicine 0.6 Mg Tablet PO 0.6 mg DAILY PHONG Administration Duloxetine HCl 30 mg 08/15/20 09:00 08/15/20 08:25 Duloxetine 30 Mg Capsule PO 30 mg DAILY PHONG Administration Escitalopram Oxalate 20 mg 08/15/20 09:00 08/15/20 08:25 Escitalopram 10 Mg Tablet PO 20 mg DAILY PHONG Administration Famotidine 20 mg 08/14/20 23:35 08/16/20 00:31 Famotidine 20 Mg/2 Ml Inj IVP 20 mg Q12H PHONG Administration Cefepime HCl 2,000 mg/ Sodium 50 mls @ 100 mls/hr 08/15/20 10:00 08/16/20 02:26 Chloride IV Infused Q8H PHONG Infusion Protocol Sodium Chloride 1,000 mls @ 100 mls/hr 08/14/20 23:35 08/16/20 05:18 Sodium Chloride 0.9% IV Not Given .Q10H PHONG Vancomycin/PEG/NADA/Lysine/Water 1,250 mg in 250 mls @ 250 mls/hr 08/15/20 01:00 08/16/20 01:48 Vancocin IV Infused Q12H PHONG Infusion Norepinephrine Bitartrate 4 mg 254 mls @ 0 mls/hr 08/15/20 06:15 08/16/20 05:59 / Dextrose IV 4 mcg/min .Q0M PHONG 15.2 mls/hr Titration Protocol Per Protocol Sodium Chloride 1,000 mls @ 150 mls/hr 08/15/20 16:45 08/16/20 00:41 Sodium Chloride 0.9% IV 150 mls/hr .Q6H40M PHONG Administration Insulin Human Regular 250 unit 252.5 mls @ 0 mls/hr 08/15/20 23:30 08/16/20 06:20 / Sodium Chloride IV 2.9 mls/hr .Q0M PHONG 2.9 mls/hr Titration Protocol Per Protocol Sodium Bicarbonate 150 meq/ 1,150 mls @ 125 mls/hr 08/15/20 23:45 08/16/20 00:28 Dextrose IV 125 mls/hr .Q9H12M PHONG Administration Ibuprofen 400 mg 08/15/20 15:00 08/15/20 20:22 Ibuprofen 200 Mg Tablet PO 400 mg TID PHONG Administration Insulin Aspart 0 unit 08/15/20 18:00 08/15/20 20:22 Insulin Aspart 100 Unit/1 Ml SUBCUT 16 unit WM&BEDTIME PHONG Administration Protocol Insulin Glargine 58 unit 08/15/20 21:00 08/15/20 20:23 Insulin Glargine 100 Units/1 Ml SUBCUT 58 unit BEDTIME PHONG Administration Morphine Sulfate 2 mg 08/14/20 23:35 08/15/20 21:23 Morphine 4 Mg/Ml Sdv 1 Ml IVP 2 mg Q4H PRN Administration SEVERE PAIN Non-Formulary Medication 15 mg 08/15/20 09:00 08/15/20 17:19 Isosorbide Dinitrate PO Not Given BID PHONG Ondansetron HCl 4 mg 08/15/20 05:13 08/15/20 07:13 Ondansetron 2 Mg/Ml Sdv 2 Ml IVP 4 mg Q8H PRN Administration NAUSEA AND VOMITING Pantoprazole Sodium 40 mg 08/15/20 09:00 08/15/20 08:[address] 40 Mg Tablet PO 40 mg DAILY PHONG Administration Prednisone 20 mg 08/15/20 09:00 08/15/20 08:25 Prednisone 20 Mg Tablet PO 20 mg DAILY PHONG Administration PFSH Acute PFSH: Medical History Acute kidney injury Avulsion fracture of left ankle Cervical spondylosis Chronic anticoagulation Cigarette smoker motivated to quit Claudication Closed fracture of right distal fibula DDD (degenerative disc disease), cervical Diabetes Dyspnea Emphysema/COPD Encounter for long-term (current) use of NSAIDs Essential hypertension Fibromyalgia Fracture Immunocompromised Intractable nausea and vomiting Long-term current use of opiate analgesic Onychodystrophy Onychodystrophy Osteoporosis Pain management contract signed Pain, joint, multiple sites Portal vein thrombosis Rheumatoid arthritis Right foot pain Spondylosis of lumbar region without myelopathy or radiculopathy Syncope Tobacco use disorder Surgical History (Reviewed 08/14/20 @ 20:23 by Sandra French MD, [facility] [place]) H/O dilation and curettage Hx laparoscopic cholecystectomy Hx of section (~1989) Hx of hysterectomy Family History Mother Stroke Cancer SKIN CANCER Sister Stroke Other Diabetes Myocardial infarct Denies family history of Anesthesia complication Bleeding disorder Social History (Reviewed 08/14/20 @ 20:23 by Sandra French MD, [facility] [place]) Smoking and tobacco status: current every day smoker cigarettes Years cigarettes smoked: 40 Quit status (tobacco): considering quitting Second hand smoke exposure: Yes Smoking risk assessment/counseling performed?: Yes Alcohol intake: former Caregiver/support person: Yes Lives independently: Yes Household members: spouse Marital status: Current occupational status: disabled History of recent travel: No Current gender identity: Female Vitals/I&O/Wt Last Vital Signs Temp 97.6 F 08/16/20 06:00 Pulse 89 08/16/20 06:00 Resp 19 H 08/16/20 06:00 BP 140/95 08/16/20 06:00 Pulse Ox 93 08/16/20 06:00 08/15/20 08/16/20 08/16/20 22:59 06:59 14:59 Intake Total 2160.360 / 3310.360 1029.963 / 4340.323 Output Total 300 / 300 Balance 1860.360 / 3010.360 1029.963 / 4040.323 Weight last 48 hrs Weight 98.997 kg Weight 93.922 kg Weight 87.09 kg Physical Exam Narrative: EXAM NARRATIVE: overweight/ obese in bed, NARD vss heent- nc/at, eomi, anicteric neck supple lungs dull bases heart reg, distant, s1, s2, rrr abd soft, nt, nd, +BS ext no edema neuro- a,a, o x 3 pulses poor Data Micro: Micro: Microbiology 08/14/20 23:00 Blood Culture - Pr eliminary Blood NEGATIVE TO PATRICIA E 08/14/20 23:08 Blood Culture - Pr eliminary Blood NEGATIVE TO PATRICIA E A&P Additional A&P Information 1. echo- 1-Normal left ventricular cavity size. Normal left ventricular systolic function. No regional wall motion abnormalities. Left ventricular ejection fraction is estimated at 60 %. Grade I/IV diastolic dysfunction (abnormal relaxation filling pattern), normal to mildly elevated filling pressures. 2-Moderate pericardial effusion. Pericardial effusion located anteriorly. Pericardial effusion located posteriorly. Echocardiographic findings suggest a non hemodynamically significant pericardial effusion. No right atrial or right ventricular diastolic collapse. 3-Pulmonary artery systolic pressure is within normal limits. 4-Right atrial pressure is around 10 mm of mercury. 5-When compared to the prior echocardiogram dated February, there is moderate pericardial effusion without any significant hemodynamic compromise . 49 yr female IDDM, copd, Rheumatological Arthritis. Pt here w/ CP and pericardial effusion- on abx. was hypotensive. 1. MARY KAY- likely ATN- from hypotension and JADE -hold NSAID -rx rheumatological process - per Dr. Castañeda -should improve as BP improves 2. pericardial effusion- hold NSAID as MARY KAY 3. DM control 4. inc AGMA improving- on insulin drip -d/c na chloride and d5w bicarb drip- place on 1/2 ns and sodium bicarb ivf 5. leukocutosis -check sed rate and CRP 6. hyponatremia from MARY KAY and pulm process discussed w/ Dr. Castañeda and Dr. Alyse Hardy Consult Attestations Medical Necessity Statement: MARY KAY, pericardial effusion, leukocytosis Time Spent in Patient Care: Greater than 35 minutes Coding Level of Care Code Acute Trimming Caser for Chikis Toro
[2020-08-16] MEDS: colchicine 0.6 mg Tablet PO (09:09)
[2020-08-16] MEDS: escitalopram 10 mg Tablet 20 MG PO (09:09)
[2020-08-16] MEDS: predniSONE 20 mg Tablet PO (09:09)
[2020-08-16] MEDS: duloxetine 30 mg Capsule PO (09:09)
[2020-08-16] MEDS: pantoprazole DR 40 mg Tablet PO (09:09)
[2020-08-16 09:42] LABS: Creatine Phosphokinase 189 U/L (26-192)
[2020-08-16 09:53] LABS: Bilirubin Urine 1+ (Negative); Blood Urine 3+ (Negative); Glucose Urine UA Trace (Normal); Ketones Urine 1+ (Negative); Nitrate Urine Negative (Negative); Protein Urine 1+ (Negative); Specific Gravity, Urine 1.015 (1.005-1.030); Urine Appearance Hazy (CLEAR); Urine Color Amber (Yellow); pH Urine 5 (5-7)
[2020-08-16 09:54] LABS: Add Urine Microscopic? YES; Leukocyte Esterase Urine 1+ (Negative); Urobilinogen Urine 4 mg/dL (Negative)
[2020-08-16] MEDS: ondansetron 2 mg/ML SDV 2 mL 4 MG IVP (09:55)
[2020-08-16 09:58] LABS: Add Urine Culture? Yes; Amorphous Sediment Urine 2+ /hpf; Bacteria Urine 1+ /hpf; Coarse Granular Casts Urine 15-25 /lpf
[2020-08-16 10:03] LABS: Glucose Point of Care 185 mg/dL (70-110)
[2020-08-16 10:03] LABS: Glucose Point of Care 174 mg/dL (70-110)
[2020-08-16 10:03] LABS: Glucose Point of Care 164 mg/dL (70-110)
[2020-08-16 10:03] LABS: Glucose Point of Care 207 mg/dL (70-110)
[2020-08-16 10:15] LABS: Potassium, Radom Urine 55 mmol/L
[2020-08-16 10:20] LABS: Erythrocyte Sedimentation Rate 38 mm/hr (0-15)
[2020-08-16 10:35] LABS: Urine Random Chloride < 10 mmol/L; Urine Random Sodium 14 mmol/L
[2020-08-16] MEDS: apixaban 5 mg Tablet 2.5 MG PO ×2 (10:56→20:21)
[2020-08-16 12:08] LABS: C Reactive Protein 235.1 mg/L (0.0-4.9)
[2020-08-16 13:08] LABS: Vancomycin Random 52.4 ug/mL (20.0-40.0)
[2020-08-16] MEDS: morphine 4 mg/mL SDV 1 mL 2 MG IVP ×2 (13:29→18:10)
--- NOTE | 2020-08-16 13:31 | P.PN_ITS ---
Subjective Subjective: Interval history: This is a 49-year-old female with history of seropositive (RF,CCP+, prev on MTX, Enbrel, Arava, and most recently on HCQ) rheumatoid arthritis, diabetes, COPD, emphysema , COVID 19 pneumonia who presented with complaints of chest pain. Patient also noted some difficulty with breathing as well as leaning forward. CT imaging showed pericardial effusion. Echocardiogram was ordered. Cardiology was consulted. Patient was started on IV antibiotics. She is also on steroids. FSBS has been elevated. Insulin gtt started BP better. she feels better Medications: Reviewed: Yes Vitals/I&O/Wt Last Vital Signs Temp 97.6 F 08/16/20 06:00 Pulse 79 08/16/20 12:15 Resp 16 08/16/20 12:15 BP 86/61 08/16/20 12:15 Pulse Ox 93 08/16/20 12:15 08/15/20 08/16/20 08/16/20 22:59 06:59 14:59 Intake Total 2160.360 / 3310.360 1029.963 / 4340.323 2358.328 / 2358.328 Output Total 300 / 300 60 / 60 Balance 1860.360 / 3010.360 1029.963 / 4040.323 2298.328 / 2298.328 Weight last 48 hrs Weight 218 lb 4 oz Weight 207 lb 1 oz Weight 192 lb Physical Exam Const: GENERAL APPEARANCE: cooperative ORIENTATION/CONSCIOUSNESS: Yes oriented to person, Yes oriented to place and Yes oriented to time Eye: COMMON NORMALS: Equal, round and reactive pupils present and EOMs intact bilaterally PUPIL: Yes Equal, round and reactive pupils present Resp: COMMON NORMALS: normal respiratory effort and No retractions Cardio: COMMON NORMALS: regular rate and regular rhythm RATE: regular rate RHYTHM: regular rhythm GI: COMMON NORMALS: Normal to inspection, nondistended, normoactive bowel sounds present and Soft to palpation PALPATION: Yes Soft to palpation Extremity: OTHER: +synovitis, swelling Neuro: SENSORIUM/ORIENTATION: Yes oriented to person, Yes oriented to place and Yes oriented to time Data : 08/16/20 03:33 08/16/20 05:53 Micro: Microbiology 08/14/20 23:00 Blood Culture - Preliminary Blood NEGATIVE TO DATE 08/14/20 23:08 Blood Culture - Preliminary Blood NEGATIVE TO DATE A&P Assessment and plan (1) Hyponatremia: Status: Acute (2) Pericardial effusion: Status: Acute (3) Pneumonia: Status: Acute Qualifiers: Pneumonia type: due to unspecified organism Laterality: unspecified laterality Lung location: unspecified part of lung Qualified Code(s): J18.9 - Pneumonia, unspecified organism (4) Septic shock: Status: Acute (5) Rheumatoid arthritis: Status: Acute Qualifiers: Rheumatoid arthritis location: unspecified site Rheumatoid factor presence: unspecified presence Qualified Code(s): M06.9 - Rheumatoid arthritis, unspecified (6) Leukocytosis: Status: Acute Qualifiers: Leukocytosis type: unspecified Qualified Code(s): D72.829 - Elevated white blood cell count, unspecified (7) Chest pain: Status: Acute Qualifiers: Chest pain type: chest pain on breathing Qualified Code(s): R07.1 - Chest pain on breathing Additional A&P Information Erin Kelley is a 49 year old female with multiple medical problems including diabetes, rheumatoid arthritis, COPD, emphysema who presented to the emergency department with a complaint of chest pain. Chest shows pleural and pericardial effusion. She is empirically being treated antibiotics. She was on hydroxychloroquine for her RA. She has been placed on steroids. previous on biologics and DMARDs, treatment has been limited 2/2 infections. #Chest pain -elevated D-dimer--> no PE -pericardial and pleural effusion on CT chest -ECHO completed -continue empiric abx -colcrys added #pericardial effusion --ddx viral vs autoimmune on steroids -ECHO completed -colcrys, -hx of inflammatory arthritis #pleural effusion -discussed with pulmonary for evaluation , consideration for thoracentesis -?lymphadenopathy ?malignancy -RAZIA profile, C3, C4, hep panel, RF, CCP, ANCA, UA sent lab reports that they may have to redraw in AM # seropositive RA -active -on prednisone - adjust DMARDs as outpatient #IDDM -insulin gtt DVT:Eliquis Attestations Medical Necessity Statement*: Erin Kelley's hospital stay will require greater than 2 midnights for pleural effusion Coding Level of Care Code Acute Call Or Contact Centre Manager for [facility] Diagnoses Hyponatremia E87.1 Pericardial effusion I31.3 Pneumonia J18.9 Pneumonia type: due to unspecified organism Laterality: unspecified laterality Lung location: unspecified part of lung Septic shock A41.9; R65.21 Rheumatoid arthritis M06.9 Rheumatoid arthritis location: unspecified site Rheumatoid factor presence: unspecified presence Leukocytosis D72.829 Leukocytosis type: unspecified Chest pain R07.1 Chest pain type: chest pain on breathing
[2020-08-16] MEDS: oxyCODONE IR 30 mg Tablet 15 MG PO (15:29)
--- NOTE | 2020-08-16 16:09 | P.PN_ITS ---
Subjective Subjective: Interval history: Patient is feeling better blood pressure is stable and improved. Medications: Reviewed: Yes Vitals/I&O/Wt Last Vital Signs Temp 97.6 F 08/16/20 06:00 Pulse 84 08/16/20 16:00 Resp 16 08/16/20 16:00 BP 121/84 08/16/20 15:30 Pulse Ox 92 08/16/20 16:00 08/16/20 08/16/20 08/16/20 06:59 14:59 22:59 Intake Total 1029.963 / 4340.323 2358.328 / 2358.328 Output Total 60 / 60 Balance 1029.963 / 4040.323 2298.328 / 2298.328 Weight last 48 hrs Weight 218 lb 4 oz Weight 207 lb 1 oz Weight 192 lb Physical Exam Narrative: EXAM NARRATIVE: GENERAL: Patient is alert, awake and oriented x3. NECK: No jugular vein distension. HEENT: No cyanosis. No icterus. No pallor. HEART: Regular S1 and S2. No murmur, rub or gallop. LUNGS: Clear to auscultate bilaterally. ABDOMEN: Soft, nontender and nondistended. Positive bowel sounds. No guarding, rebound or tenderness. CENTRAL NERVOUS SYSTEM: Grossly nonfocal. EXTREMITIES: Lower extremities without edema bilaterally. Pulses palpable in the lower extremities, both dorsalis pedis and posterior tibial. Data : 08/16/20 03:33 08/16/20 05:53 Micro: Microbiology 08/14/20 23:00 Blood Culture - Preliminary Blood NEGATIVE TO DATE 08/14/20 23:08 Blood Culture - Preliminary Blood NEGATIVE TO DATE A&P Assessment and plan (1) Chest pain: Denies any more chest pain. Status: Acute Qualifiers: Chest pain type: chest pain on breathing Qualified Code(s): R07.1 - Chest pain on breathing (2) Pericardial effusion: Pericardial effusion of moderate size which is not hemodynamically significant. Etiology unknown viral versus Autoimmune. Ibuprofen stop due to renal insufficiency. Continue prednisone Status: Acute (3) Pneumonia: As per medicine Status: Acute Qualifiers: Pneumonia type: due to unspecified organism Laterality: unspecified l aterality Lung location: unspecified part of lung Qualified Code(s): J18.9 - Pneumonia, unspecified organism (4) Septic shock: Continue IV fluid Status: Acute Attestations Medical Necessity Statement*: Require continuation hospitalization for above defined care Coding Level of Care Code Established Pt Acute Sole Leveler Machine for Chg Fwd Patient Type Established History Detailed Exam Detailed Medical Decision Making Moderate Complexity Diagnoses Chest pain R07.1 Chest pain type: chest pain on breathing Pericardial effusion I31.3 Pneumonia J18.9 Pneumonia type: due to unspecified organism Laterality: unspecified laterality Lung location: unspecified part of lung Septic shock A41.9; R65.21
[2020-08-16 16:19] LABS: Complement C3 69 mg/dL (90-180)
[2020-08-16 16:38] LABS: Hepatitis B Core AB, Total Non-Reactive (Nonreactive); Hepatitis B Surface AB 3.5 (0-8.5); Hepatitis B Surface Antigen Non-Reactive (Nonreactive); Hepatitis C Virus Antibody Non-Reactive (Nonreactive)
[2020-08-16] MEDS: isosorbide dinitrate 20 mg Tablet 10 MG PO (18:09)
[2020-08-16 18:17] LABS: Glucose Point of Care 127 mg/dL (70-110)
[2020-08-16 18:17] LABS: Glucose Point of Care 132 mg/dL (70-110)
[2020-08-16 18:17] LABS: Glucose Point of Care 153 mg/dL (70-110)
[2020-08-16 18:17] LABS: Glucose Point of Care 117 mg/dL (70-110)
[2020-08-16 18:17] LABS: Glucose Point of Care 106 mg/dL (70-110)
[2020-08-16 19:49] LABS: Glucose Point of Care 110 mg/dL (70-110)
--- NOTE | 2020-08-16 19:52 | PC.NURSE ---
Insulin gtt turned off on dayshi. Called Dr. Castillo after evening blood sugar check per report from dayshift nurse. BS was 110, no insulin per s/s. Recieved orders to recheck sugar and call provider back in 2 hours. Continue care.
--- NOTE | 2020-08-16 21:49 | PC.NURSE ---
Called Dr. Loredo back with 2 hour BS check of 117. Received orders to recheck again in 4 hours and call back. Continue care.
[2020-08-16 21:51] LABS: Glucose Point of Care 117 mg/dL (70-110)
[2020-08-16 23:20] LABS: ABG PCO2 32.3 mmHg (35-45); ABG PH Result 7.31 (7.35-7.45); Alveolar-Arterial Oxygen Gradi 5.8 mmHg (5-10); Arterial Blood Gas Hematocrit 37.1 % (37-47); Base Excess ABG -8.9 mmol/L (-2.0-2.0); Blood Gas Allen Test Pos; Blood Gas Operator Identificat JB; Blood Gas Sample Site Radial, right; Blood Gas Sample Type Arterial; Carboxyhemoglobin 0.5 %THgb (0.4-20.1); HCO3 ABG 16.3 mmol/L (22-26); HGB O2 Sat 89.2 % (95-100); Ionized Calcium Level - ABG 0.9 mmol/L (1.1-1.4); Methemoglobin 0.4 % (0.4-1.5); Oxygen Device NC; Oxygen Saturation ABG 90.1; PO2 ABG 65.6 mmHg (80.0-100.0); Potassium Level - ABG 3.9 mmol/L (3.5-5.0); Total Hemoglobin 12.1 g/dL (12-16)
[2020-08-17] VITALS (97 sets, daily range): BP systolic 92–172; BP diastolic 65–119; PULSE 82–94; RESP 9–23; TEMP 36.6–36.9; O2SAT 81–95
--- NOTE | 2020-08-17 00:03 | PM.ACPR ---
Acute Procedures Central Line Placement^: Right Femoral: Time out performed: Yes Patient placed on monitor/pulse ox: Yes MD prep: mask, gown and gloves Central line prep: Chlorhexidine scrub and sterile drapes applied Local anesthesia used: lidocaine 1% Central line lumen inserted: triple Post procedure: sutured in place, good blood return, all ports aspirated, flushed, capped and sterile dressing applied Patient tolerated procedure: well Complications: none
--- NOTE | 2020-08-17 00:47 | PC.NURSE ---
Called Dr. Castillo to update on patients HCO3 levels and asked about continuation of bicarb gtt. Dr. Castillo gave verbal orders to continue gtt.
[2020-08-17 02:23] LABS: Glucose Point of Care 64 mg/dL (70-110)
[2020-08-17 03:07] LABS: Glucose Point of Care 73 mg/dL (70-110)
[2020-08-17 03:36] LABS: Glucose Point of Care 77 mg/dL (70-110)
[2020-08-17 04:39] LABS: Glucose Point of Care 127 mg/dL (70-110)
[2020-08-17 05:17] LABS: Albumin Level 2.6 g/dL (3.5-5.2); Alkaline Phosphatase 509 IU/L (35-105); Anion Gap 22.9 (5-19); Blood Urea Nitrogen 41 mg/dL (6-20); Calcium 6.7 mg/dL (8.5-10.5); Carbon Dioxide 19 mmol/L (22-29); Chloride 95 mmol/L (98-107); Glomerular Filtration Rate 15.8 mL/min (90-130); Glucose 67 mg/dL (65-115); Iron 90 ug/dL (37-145); Magnesium 1.6 mg/dL (1.7-2.3); Osmolality Calculated 284 mOsm/kg (285-295); Percent Saturation 58.8 % (20-50); Phosphorus 7.2 mg/dL (2.5-4.5); Potassium 3.9 mmol/L (3.5-5.1); Sodium 133 mmol/L (136-145); Total Bilirubin 0.8 mg/dL (0.15-1.2); Total Iron Binding Capacity 153 mcg/dl; Total Protein 5.6 g/dL (6.6-8.7); Unsaturated Iron Binding 63 ug/dL (112-347)
[2020-08-17 05:30] LABS: Basophils # 0.1 10^3/uL (0.0-0.1); Basophils % 0.6 %; Eosinophils % 0.1 %; Hematocrit 36.2 % (37.0-47.0); Hemoglobin 11.7 g/dL (11.5-15.3); Lymphocytes % 9.3 %; Mean Corpuscular HGB Conc 32.3 g/dL (30.0-36.0); Mean Corpuscular Hemoglobin 30.2 pg (28.0-34.0); Mean Corpuscular Volume 93.5 fL (81-99); Mean Platelet Volume 11.5 fL (7.4-10.4); Monocytes # 1.1 10^3/uL (0.2-0.9); Monocytes % 5.1 %; Neutrophils # 17.85 10^3/uL (1.8-7.7); Neutrophils % 82.6 %; Nucleated Red Blood Cells % 0.1 %; Platelet Count 85 10^3/cmm (130-400); Red Blood Count 3.87 10^6/uL (4.1-5.3); Red Cell Distribution Width 15.1 % (12.1-15.1); White Blood Count 21.6 10^3/uL (4.0-10.0)
[2020-08-17 05:42] LABS: Alanine Aminotransferase 4157 U/L (0-33)
[2020-08-17 05:44] LABS: Aspartate Amino Transferase 4757 U/L (0-32)
[2020-08-17 06:17] LABS: Erythrocyte Sedimentation Rate 52 mm/hr (0-15)
--- NOTE | 2020-08-17 06:21 | XRR_ITS ---
PROCEDURE INFORMATION: Exam: XR Chest, 2 Views Exam date and time: 08/17/2020 6:41 AM Age: 49 years old Clinical indication: Shortness of breath; Additional info: SOB, sergey, pericardial effusion TECHNIQUE: Imaging protocol: XR of the chest Views: 2 views. COMPARISON: CR (CHEST, ) 08/15/2020 12:37 PM FINDINGS: Lungs: Hazy interstitial infiltrates are present in the mid and lower lung zones. There is bibasilar consolidation in the posterior lung bases on the lateral view. Pleural spaces: There is blunting of the posterior costophrenic sulci which may be due to small effusions. Heart/Mediastinum: The cardiac silhouette is mildly enlarged. This may be related to the pericardial effusion that was seen on a CT scan of the chest from 08/14/2020. Bones/joints: Unremarkable. XR/XR chest 2V* [id number] IMPRESSION: 1. Mild cardiac enlargement. Pericardial effusion was seen on previous CT scan. 2. Hazy bilateral interstitial pulmonary infiltrates with posterior basal consolidation. Though this could be due to heart failure with pulmonary edema lower lobe pneumonia should also be considered. 3. There has been very little change in the appearance of the chest in the AP projection since previous chest x-ray from 08/15/2020.
--- NOTE | 2020-08-17 06:31 | PC.NURSE ---
Urine output poor 100mLs for entire shift. Dr. Suarez called and gave orders to DC bicarb gtt. Continue care.
[2020-08-17 06:42] LABS: Ferritin 13336 ng/mL (15-150)
--- NOTE | 2020-08-17 07:01 | PM.PN ---
Subjective Subjective: Interval history: weak, swollen, pleuritic CP Medications: Reviewed: Yes Medication Review Details: Current Medications Acetaminophen (Acetaminophen 325 Mg Tablet) 650 mg PO Q6H PRN PRN Reason: Mild/Mod Pain Or Temp >/= 101 Last Admin: 08/15/20 01:02 Dose: 650 mg Documented by: Apixaban (Apixaban 5 Mg Tablet) 2.5 mg PO Q12H PHONG Last Admin: 08/16/20 20:21 Dose: 2.5 mg Documented by: Bisacodyl (Bisacodyl 10 Mg Supp) 10 mg HI ONCE PRN PRN Reason: CONSTIPA Colchicine (Colchicine 0.6 Mg Tablet) 0.6 mg PO DAILY [facility] Last Admin: 08/16/20 09:09 Dose: 0.6 mg Documented by: Dextrose (Dextrose 50% Syringe 50 Ml) 50 ml IVP PRN PRN; Protocol PRN Reason: hypoglycemia protocol Duloxetine HCl (Duloxetine 30 Mg Capsule) 30 mg PO DAILY [facility] Last Admin: 08/16/20 09:09 Dose: 30 mg Documented by: Escitalopram Oxalate (Escitalopram 10 Mg Tablet) 20 mg PO DAILY [facility] Last Admin: 08/16/20 09:09 Dose: 20 mg Documented by: Famotidine (Famotidine 20 Mg/2 Ml Inj) 20 mg IVP Q12H PHONG Last Admin: 08/16/20 23:42 Dose: 20 mg Documented by: Glucagon (Glucagon 1 Mg/Ml Inj 1 Ml) 1 mg IM ONCE PRN; Protocol PRN Reason: Adult Acute Hypoglycemia Prot. Norepinephrine Bitartrate 4 mg (/ Dextrose) 254 mls @ 0 mls/hr IV .Q0M PHONG; Protocol Last Titration: 08/16/20 11:28 Dose: 0 mcg/min, 0 mls/hr Documented by: Dextrose (D5w) 500 mls @ 100 mls/hr IV ONCE PRN; Protocol PRN Reason: Adult Acute Hypoglycemia Prot Insulin Human Regular 250 unit (/ Sodium Chloride) 252.5 mls @ 0 mls/hr IV .Q0M PHONG; Protocol Last Titration: 08/16/20 14:00 Dose: 0 mls/hr, 0 mls/hr Documented by: Cefepime HCl 2,000 mg/ Sodium (Chloride) 50 mls @ 100 mls/hr IV Q12H PHONG; Protocol Last Infusion: 08/16/20 23:49 Dose: Infused Documented by: Insulin Aspart (Insulin Aspart 100 Unit/1 Ml) 0 unit SUBCUT WM&BEDTIME [facility]; Protocol Last Admin: 08/16/20 20:21 Dose: Not Given Documented by: Insulin Glargine (Insulin Glargine 100 Units/1 Ml) 58 unit SUBCUT BEDTIME [facility] Last Admin: 08/16/20 22:08 Dose: Not Given Documented by: Isosorbide Dinitrate (Isosorbide Dinitrate 20 Mg Tablet) 10 mg PO BID [facility] Last Admin: 08/16/20 18:09 Dose: 10 mg Documented by: Morphine Sulfate (Morphine 4 Mg/Ml Sdv 1 Ml) 2 mg IVP Q4H PRN PRN Reason: SEVERE PAIN Last Admin: 08/16/20 18:10 Dose: 2 mg Documented by: Nitroglycerin (Nitroglycerin 0.4 Mg Sublingual Tablet) 0.4 mg SUBLINGUAL Q5M PRN PRN Reason: chest pain Ondansetron HCl (Ondansetron 2 Mg/Ml Sdv 2 Ml) 4 mg IVP Q8H PRN PRN Reason: NAUSEA AND VOMITING Last Admin: 08/16/20 09:55 Dose: 4 mg Documented by: Oxycodone HCl (Oxycodone Ir 30 Mg Tablet) 15 mg PO BID PRN PRN Reason: pain Last Admin: 08/16/20 15:29 Dose: 15 mg Documented by: Pantoprazole Sodium (Pantoprazole Dr 40 Mg Tablet) 40 mg PO DAILY [facility] Last Admin: 08/16/20 09:09 Dose: 40 mg Documented by: Prednisone (Prednisone 20 Mg Tablet) 20 mg PO DAILY [facility] Last Admin: 08/16/20 09:09 Dose: 20 mg Documented by: Vitals/I&O/Wt Last Vital Signs Temp 98.2 F 08/16/20 20:00 Pulse 84 08/17/20 06:15 Resp 16 08/17/20 06:15 BP 109/81 08/17/20 06:15 Pulse Ox 92 08/17/20 06:15 08/16/20 08/17/20 08/17/20 22:59 06:59 14:59 Intake Total 1230 / 3596.338 2147.5 / 5743.838 Output Total 240 / 300 100 / 400 Balance 990 / 3296.338 2047.5 / 5343.838 Weight last 48 hrs Weight 100.924 kg Weight 98.997 kg Physical Exam Narrative: EXAM NARRATIVE: overweight/ obese in bed, NARD vss - not on pressers heent- nc/at, eomi, anicteric neck supple lungs dull bases and crackles heart reg, distant, s1, s2, rrr- overnight had runs of a fib abd soft, nt, nd, +BS ext no edema neuro- a,a, o x 3 pulses poor Data : 08/17/20 03:03 08/17/20 03:03 A&P Additional A&P Information 1. echo- 1-Normal left ventricular cavity size. Normal left ventricular systolic function. No regional wall motion abnormalities. Left ventricular ejection fraction is estimated at 60 %. Grade I/IV diastolic dysfunction (abnormal relaxation filling pattern), normal to mildly elevated filling pressures. 2-Moderate pericardial effusion. Pericardial effusion located anteriorly. Pericardial effusion located posteriorly. Echocardiographic findings suggest a non hemodynamically significant pericardial effusion. No right atrial or right ventricular diastolic collapse. 3-Pulmonary artery systolic pressure is within normal limits. 4-Right atrial pressure is around 10 mm of mercury. 5-When compared to the prior echocardiogram dated February, there is moderate pericardial effusion without any significant hemodynamic compromise . 49 yr female IDDM, copd, Rheumatological Arthritis. Pt here w/ CP and pericardial effusion- on abx. was hypotensive. 1. MARY KAY- likely ATN- from hypotension and JADE -hold NSAID -rx rheumatological process - per Dr. Castañeda -urine studies noted -repeat u/a hazy, 1 + prot, 3 + blood, 5-10 wbc and rbc, amorph sed, 15-25 granular casts -low ur na c/w prerenal- however- pt is 4.% liters + and oliguric- now appears to be ATN -no emergent need for HD -met acidosis improving -d/c ivf as now appears volume overloaded -d/c vanco as level 52- monitor vanco levels- redose when level under 19 if needed 2. pericardial effusion- hold NSAID as MARY KAY -renal dose colchicine- can cause leukopenia w/ renal failure -Consider tapping per cardiology, medicine 3. DM control 4. inc AGMA improving- on insulin drip -d/c IVF 5. leukocytosis -check sed rate and CRP 6. hyponatremia from MARY KAY and pulm process -improving 7. hyperphosphatemia -from MARY KAY -low phos diet and binders 8. ferritin [id number]- very high- acute phase reactant 9. inc LFTs- likely shocked liver from poor perfusion discussed w/ Dr. Castañeda and Dr. Alyse Hardy yesterday Attestations Medical Necessity Statement*: mary kay, inc lfts, pericardial effusion Time Spent in Patient Care: Greater than 35 minutes Coding Level of Care Code Acute Radiology Practitioner Assistant for Chikis Toro
[2020-08-17 08:08] LABS: Glucose Point of Care 93 mg/dL (70-110)
--- NOTE | 2020-08-17 09:17 | USCV_ITS ---
Erin Kelley Age: 49 Gender: F : 1970 Exam Date: 08/17/2020 15:33 Ordering Phys: Tiffany Hardy MD ([email or web address]) Technologist: Lucia Sheets Exam Location: [facility] [place] Indication: PERICARDIAL EFFUSION BP: 138 / 88 HR: Rhythm: Sinus Technical Quality: Technically difficult study MEASUREMENTS (Male / Female) Normal Values 2D ECHO LV Chamber Size 4.4 cm RV Chamber Size 2.1 cm LA Width 2.8 cm LA Height 2.9 cm RA Width 2.3 cm RA Height 2.9 cm FINDINGS Left Ventricle Normal left ventricular systolic function. No regional wall motion abnormalities. Left ventricular ejection fraction is estimated at 55 %. Grade I/IV diastolic dysfunction (abnormal relaxation filling pattern), normal to mildly elevated filling pressures. Right Ventricle Right Atrium Left Atrium Mitral Valve Aortic Valve Tricuspid Valve Pulmonic Valve Pericardium Moderate pericardial effusion. Circumferential pericardial effusion. No significant respirophasic variation, no significant right atrial or right ventricular collapse noted. Echocardiographic findings suggest a non hemodynamically significant pericardial effusion. Aorta CONCLUSIONS Limited echo to assess pericardial effusion 1-Normal left ventricular systolic function. No regional wall motion abnormalities. Left ventricular ejection fraction is estimated at 55 %. Grade I/IV diastolic dysfunction (abnormal relaxation filling pattern), normal to mildly elevated filling pressures. 2-Moderate pericardial effusion. Circumferential pericardial effusion. No significant respirophasic variation, no significant right atrial or right ventricular collapse noted. Echocardiographic findings suggest a non hemodynamically significant pericardial effusion. 3-When compared to the prior echocardiogram dated 08/14/2020 there appeared to be slightly increase in pericardial effusion which is circumferential however still in the moderate range, it remains of no hemodynamic significance. Tiffany Hardy MD (Electronically Signed) Final Date: 17 August 2020 18:29 S
--- NOTE | 2020-08-17 09:26 | PC.CHAP ---
Pastoral Care Encounter/Spiritual Assessment Type of Contact [] Declined wholesaler visit [] Patient/Family/Request visit [] Outpatient visit [] Follow-up visit [] Physician referral [] Code/Alert [x] Routine visit [] Staff referral [] Actively dying [] Patient sleeping [] Family support [] [] Out of room [] Palliative care [] [] Receiving care in room [] Pre-surgical visit [] Trauma [] Long length of stay [x] ICU visit [] Other: Relational/Emotional Strength [] Patient feels connected with others/family/visitors/staff [] Distress [] Loneliness/isolation [] Abandonment Spirituality of Patient [] Person of Yadira [] Attends Confucianism of their Yadira [] Believes in Prayer [] Reads Bible or Lutheran materials [] There are Spiritual issues to be addressed Mine Geologist Interventions [x] Prayer [] Active listening [] Non-anxious presence [] Spiritual/emotional support [] Crisis/trauma care [] Spiritual counseling [] Bereavement support [] Provided bereavement packet [] Provided Bible/devotional materials [] Provided toy/stuffed animal, coloring book to patient or family member [] Provided Communion [] Anointing/[place] [] Salvation [x] Completed spiritual assessment [] Other: Impact on Illness or Injury [] Angry [] Fearful [] Anxious [] Often cries [] Exhaustion [] Unable to work [] Unable to attend episcopal [] Unable to walk/stand [] Unable to read [] Unable to drive [] Unable to eat/drink [] Unable to sleep [] Unable to be with family [] Patient intubated [] Other: Summary Time spent with patient
[2020-08-17] MEDS: sevelamer 800 mg Tablet 1600 MG PO ×3 (09:31→20:16)
[2020-08-17] MEDS: pantoprazole DR 40 mg Tablet PO (09:31)
[2020-08-17] MEDS: duloxetine 30 mg Capsule PO (09:32)
[2020-08-17] MEDS: predniSONE 20 mg Tablet PO (09:32)
[2020-08-17] MEDS: colchicine 0.6 mg Tablet PO (09:32)
[2020-08-17] MEDS: escitalopram 10 mg Tablet 20 MG PO (09:32)
[2020-08-17] MEDS: isosorbide dinitrate 20 mg Tablet 10 MG PO ×2 (09:33→17:34)
[2020-08-17] MEDS: apixaban 5 mg Tablet 2.5 MG PO ×2 (09:33→20:18)
--- NOTE | 2020-08-17 10:56 | CT_ITS ---
WS: [id number] CT HEAD TECHNIQUE: Noncontrast CT of the head obtained from the skullbase to the vertex. CLINICAL INFORMATION: ams COMPARISON: CT June 01, 2020 MRI May 29, 2020 DLP: 793.[address] scans at [facility] use at least one of these dose optimization techniques: automat ed exposure control; mA and/or kV adjustment per patient size (includes targeted exams where dose is matched to clinical indication); or iterative reconstruction. FINDINGS: No evidence of intracranial hemorrhage or mass effect. Ventricular system and basal cisterns are de la garza nt. Mild periventricular white matter changes are stable. No extra-axial fluid collections. No eviden ce of mass or mass effect. Normal [place]-white differentiation. Paranasal sinuses and mastoid air cells are well aerated. .Normal visualized soft tissues. CT/CT head wo con* [id number] IMPRESSION: 1. No evidence of intracranial hemorrhage or mass effect 2. Mild periventricular white matter changes are stable. 3. No acute intracranial findings.
[2020-08-17 10:57] LABS: Glucose Point of Care 109 mg/dL (70-110)
[2020-08-17] MEDS: cefepime 2,000 MG in sodium chloride 0.9% (plus) 50 ML 100 MG IV (10:57)
[2020-08-17] MEDS: levETIRAcetam 500 mg Tablet 1000 MG PO ×2 (11:39→17:35)
[2020-08-17 11:47] LABS: Ammonia 62 umol/L (11-51); Lactate (Lactic Acid level) 1.8 mmol/L (0.5-2.2)
[2020-08-17 11:53] LABS: Procalcitonin 8.87 ng/mL (0-0.5)
--- NOTE | 2020-08-17 12:13 | P.PN_ITS ---
Subjective Subjective: Interval history: This morning patient was examined multiple times, she is alert to person, she knows that she is in [place], not to the time, she is confused this morning, she often repeats her answers, does follow commands, she does not know why she is here in the hospital, she has particularly no complaints, no headaches, no blurry vision, no nausea, no vomiting, no chest pain, shortness of breath, no abdominal pain, no diarrhea, no lightheadedness, no dizziness, patient was reexamined later on in the morning, her mentation has cleared a bit, she answers more questions appropriately, follows commands appropriately, still having episodes of confusion In the afternoon yesterday patient did have episodes of hypotension, and overnight she had episodes of hypotension, she was receiving fluids, but is +5 L, urine output has decreased to 100 cc in the last 24 hours, she developed acute renal failure, acute liver failure Vitals/I&O/Wt Last Vital Signs Temp 97.9 F 08/17/20 10:00 Pulse 86 08/17/20 10:00 Resp 17 08/17/20 10:00 BP 112/86 08/17/20 10:00 Pulse Ox 92 08/17/20 10:00 08/16/20 08/17/20 08/17/20 22:59 06:59 14:59 Intake Total 1230 / 3596.338 2147.5 / 5743.838 340 / 340 Output Total 240 / 300 100 / 400 40 / 40 Balance 990 / 3296.338 2047.5 / 5343.838 300 / 300 Weight last 48 hrs Weight 100.924 kg Weight 98.997 kg Physical Exam Const: COMMON NORMALS: no acute distress and alert ORIENTATION/CONSCIOUSNESS: Yes oriented to person; not oriented to place and not oriented to time HENMT: COMMON NORMALS: normocephalic HEAD & SCALP: normocephalic Neck/C-Spine: COMMON NORMALS: no JVD Resp: COMMON NORMALS: normal respiratory effort, No retractions, No use of accessory muscles and clear to auscultation bilaterally AUSCULTATION: clear to auscultation bilaterally Cardio: COMMON NORMALS: no JVD, regular rate, regular rhythm, S1 normal heart sound present and S2 normal heart sound present RATE: regular rate RHYTHM: regular rhythm HEART SOUNDS: S1 normal heart sound present and S2 normal heart sound present GI: COMMON NORMALS: Normal to inspection, nondistended, normoactive bowel so unds present, Soft to palpation, non-tender, No hepatosplenomegaly present, no masses and no bruits PALPATION: Yes Soft to palpation and Yes No hepatosplenomegaly present Extremity: COMMON NORMALS: capillary refill normal, no clubbing, cyanosis or edema, no calf tenderness and no pedal edema Neuro: COMMON NORMALS: CN's II-XII intact bilaterally and moves all extremities SENSORIUM/ORIENTATION: Yes alert, Yes oriented to person, No oriented to place and No oriented to time Psych: COMMON NORMALS: speech normal ATTITUDE: Yes calm SPEECH: Yes normal speech MEMORY/COGNITION: Yes memory grossly impaired and Yes cognition grossly impaired Data : 08/17/20 03:03 08/17/20 03:03 Micro: Microbiology 08/16/20 09:30 Urine Culture - Preliminary Urine,Clean Catch A&P Assessment and plan (1) Pericardial effusion: -Cardiac echogram from August 15, 2020 shows: Moderate pericardial effusion. Pericardial effusion located anteriorly. Pericardial effusion located posteriorly. Echocardiographic findings suggest a non hemodynamically significant pericardial effusion. No right atrial or right ventricular diastolic collapse. 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 about diagnostic paracentesis Status: Acute (2) Chest pain: -No evidence of pulmonary emboli on CT angiogram of the chest - 6 hour troponin 10.62 -EKG no acute ST-T wave changes -Has no chest pain complaints -Stress test on April 01, 2020 shows low probability cardiac stress test Status: Acute (3) Septic shock: -Patient had 4 significant episodes of hypotension in the last 24 hours, blood pressures as low 62/40 -Had a right femoral line placed, required pressors for a short-term, currently off pressors, normotensive -The exact source of patient's sepsis is not exactly definite at this point -Lactic acid within normal limits -CT of the chest did show new infiltrates in the left lung base, possible pneumonia playing a role -UA did show evidence of UTI, with positive leukocyte esterase, positive WBCs, bacteria, -She has been on vancomycin and cefepime since admission, which subsequently has been changed to Zyvox and cefepime -Meningitis unlikely, she does have episodes of confusion, no neck pain, no neck stiffness, no fevers, she has had an 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 in the past including LP, MRIs, EEGs, has finished acyclovir, and cefepime -She had Covid pneumonia, has finished treatment, no fevers, no shortness of breath, is on her home 3 L -Status post cholecystectomy Plan: -Expand antibiotic coverage to Zyvox, cefepime, azithromycin -Repeat blood cultures, urine cultures -Repeat inflammatory markers -We will do CT scan of the abdomen pelvis to evaluate for obstructive uropathy, focal sign of infection -Right femoral line in place, Levophed as needed to maintain MAP greater than 65 Status: Acute (4) Pneumonia: CT of the chest shows new infiltrates in the left lung base, possible pneumonia Status: Acute Qualifiers: Laterality: unspecified laterality Lung location: unspecified part of lung Pneumonia type: due to unspecified organism Qualified Code(s): J18.9 - Pneumonia, unspecified organism (5) Acute renal failure: -Likely multifactorial from contrast, vancomycin induced nephrotoxicity vancomycin trough 52, prerenal given hypotensive episodes, septic shock -CT scan as above with renal ultrasound to evaluate for obstructive uropathy -Creatinine 3.1, urine output has decreased 200 cc in the last 24 hours -Nephrology on consult -Monitor electrolytes closely Status: Acute (6) Ischemic hepatitis: -AST ALT in the 4000s -Alk phos in the 500s -No significant T bili elevation -Elevated ammonia level is a 63 -Acute hepatitis panel unremarkable -Likely related to hypotensive episodes, septic shock -However CT scan of the abdomen pelvis has been ordered, liver ultrasound -Minimize hypotensive episodes, antibiotics as above -Lactulose for elevated ammonia levels Status: Acute (7) Metabolic encephalopathy: Likely multifactorial, from electrolyte abnormalities, elevated ammonia levels, sepsis, infection, pain medications -Currently holding all pain medications, including duloxetine, gabapentin, baclofen, alprazolam -Monitor mentation closely -CT of the head ordered Status: Acute (8) Hyponatremia: Status: Acute (9) Rheumatoid arthritis: Status: Acute Qualifiers: Rheumatoid arthritis location: unspecified site Rheumatoid factor presence: unspecified presence Qualified Code(s): M06.9 - Rheumatoid arthritis, unspecified (10) Leukocytosis: Status: Acute Qualifiers: Leukocytosis type: unspecified Qualified Code(s): D72.829 - Elevated white blood cell count, unspecified (11) Chest pain: Status: Acute Qualifiers: Chest pain type: chest pain on breathing Qualified Code(s): R07.1 - Chest pain on breathing (12) Hypotension: Status: Acute (13) Pericardial effusion: Status: Acute Additional A&P Information Erin Kelley is a 49 year old female with multiple medical problems including diabetes, rheumatoid arthritis, COPD, emphysema who presented to the emergency department with a complaint of chest pain. Chest shows pleural and pericardial effusion. She is empirically being treated antibiotics. She was on hydroxychloroquine for her RA. She has been placed on steroids. previous on biologics and DMARDs, treatment has been limited 2/2 infections. 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 for g Fwd Exam Comprehensive Diagnoses Pericardial effusion I31.3 Chest pain R07.9 Septic shock A41.9; R65.21 Pneumonia J18.9 Laterality: unspecified laterality Lung location: unspecified part of lung Pneumonia type: due to unspecified organism Acute renal failure N17.9 Ischemic hepatitis K75.9 Metabolic encephalopathy G93.41 Hyponatremia E87.1 Rheumatoid arthritis M06.9 Rheumatoid arthritis location: unspecified site Rheumatoid factor presence: unspecified presence Leukocytosis D72.829 Leukocytosis type: unspecified Chest pain R07.1 Chest pain type: chest pain on breathing Hypotension I95.9 Pericardial effusion I31.3
--- NOTE | 2020-08-17 12:18 | US_ITS ---
WS: [id number] ULTRASOUND ABDOMEN CLINICAL INFORMATION: tranaminits, elevated alkphos COMPARISON: None. FINDINGS: Liver Size: Hepatomegaly Craniocaudal length: 19.0 cm. Echogenicity: Diffuse fatty infiltration Surface nodularity: None. Mass (size and location): None. Normal hepatic Doppler. Bile ducts Intrahepatic ducts: Normal. Common bile duct diameter: 0.6 cm. Gallbladder Cholecystectomy Pancreas Not well visualized Spleen Splenomegaly: Enlarged Craniocaudal length: 12.4 cm. Right kidney: Normal. Hydronephrosis: None. Size: 12.5 cm x 4.1 cm x 4.8 cm Left kidney: Normal. Hydronephrosis: None. Size: 12.2 cm x 5.3 cm x 5.7 cm. Abdominal aorta and IVC Visualized portions are normal. Ascites: None. US/US abdomen complete* [id number] IMPRESSION: 1. Hepatomegaly with diffuse fatty infiltration. 2. Gallbladder has been removed. 3. No hydronephrosis in either kidney. 4. Mild splenomegaly.
[2020-08-17 12:37] LABS: Creatine Phosphokinase 56 U/L (26-192)
--- NOTE | 2020-08-17 12:47 | CT_ITS ---
WS: [id number] CT ABDOMEN PELVIS TECHNIQUE: Noncontrast CT of the abdomen and pelvis with coronal and sagittal reformatted images. CLINICAL INFORMATION: elevated inflammatory markers, transminitis COMPARISON: CT May 18, 2020 DLP: 1724.[address] scans at [facility] use at least one of these dose optimization techniques: automat ed exposure control; mA and/or kV adjustment per patient size (includes targeted exams where dose is matched to clinical indication); or iterative reconstruction. FINDINGS:Fluid distended small bowel with air-fluid levels. Air-fluid levels within the transverse co kae. Findings likely due to adynamic ileus versus developing partial small bowel obstruction. No kelly sition point visualized. Recommend interval follow-up. Small amount of free fluid in the pelvis. Prior cholecystectomy hysterectomy. Normal noncontrast liver. Cholecystectomy clips. Moderate partial ly visualized pericardial effusion. Small right pleural effusion with compressive atelectasis in the right lower lobe. Tiny left pleural effusion. Diffuse body wall anasarca. Adrenal glands are normal. Normal renal parenchymal enhancement. No hydronephrosis. Splenic granuloma s. Right femoral catheter.Normal caliber abdominal aorta. . CT/CT abdomen pelvis wo con [id number] IMPRESSION: 1. Fluid distended large and small bowel with air-fluid levels. No visualized transition point. Findings likely due to adynamic ileus versus developing parti al small bowel obstruction. Recommend interval follow-up. 2. Diffuse body wall anasarca. 3. Moderate pericardial effusion. 4. Small right pleural effusion with compressive atelectasis right lower lobe
[2020-08-17] MEDS: lactulose oral liq 20 gm/30 mL UDC PO ×2 (13:33→23:47)
[2020-08-17] MEDS: azithromycin 500 MG in sodium chloride 0.9% 250 ML 250 MG IV (13:33)
[2020-08-17 13:34] LABS: ABG PH Result 7.35 (7.35-7.45); Alveolar-Arterial Oxygen Gradi 16.1 mmHg (5-10); Arterial Blood Gas Hematocrit 33.8 % (37-47); Base Excess ABG -7.7 mmol/L (-2.0-2.0); Blood Gas Allen Test Pos; Blood Gas Operator Identificat GD; Blood Gas Sample Site Radial, left; Blood Gas Sample Type Arterial; Carboxyhemoglobin 0.7 %THgb (0.4-20.1); HGB O2 Sat 89.7 % (95-100); Ionized Calcium Level - ABG 0.9 mmol/L (1.1-1.4); Methemoglobin 0.6 % (0.4-1.5); Oxygen Device NC; Oxygen Saturation ABG 90.9; PO2 ABG 65.4 mmHg (80.0-100.0); Potassium Level - ABG 3.9 mmol/L (3.5-5.0)
[2020-08-17] MEDS: linezolid premix 600 MG/300 ML PREMIX 300 MG IV ×2 (13:35→23:47)
[2020-08-17] MEDS: ondansetron 2 mg/ML SDV 2 mL 4 MG IVP (14:38)
--- NOTE | 2020-08-17 17:14 | PC.RESP ---
Smoking Cessation and Pulmonary Rehab information sent to patient.
[2020-08-17 17:23] LABS: Uric Acid 9.1 mg/dL (2.4-5.7)
[2020-08-17 17:25] LABS: Glucose Point of Care 163 mg/dL (70-110)
[2020-08-17 17:27] LABS: Ammonia 27 umol/L (11-51)
[2020-08-17 17:44] LABS: LAB Peripheral Smear Sent for Review
--- NOTE | 2020-08-17 18:34 | P.PN_ITS ---
Subjective Subjective: Interval history: Abdominal distention apart from that denies chest pain renal and liver function has worsened . Blood pressure remained stable. No tachycardia noted Medications: Reviewed: Yes Medication Review Details: Current Medications Acetaminophen (Acetaminophen 325 Mg Tablet) 650 mg PO Q6H PRN PRN Reason: Mild/Mod Pain Or Temp >/= 101 Last Admin: 08/15/20 01:02 Dose: 650 mg Documented by: Apixaban (Apixaban 5 Mg Tablet) 2.5 mg PO Q12H [facility] Last Admin: 08/16/20 20:21 Dose: 2.5 mg Documented by: Bisacodyl (Bisacodyl 10 Mg Supp) 10 mg VA ONCE PRN PRN Reason: CONSTIPA Colchicine (Colchicine 0.6 Mg Tablet) 0.6 mg PO DAILY [facility] Last Admin: 08/16/20 09:09 Dose: 0.6 mg Documented by: Dextrose (Dextrose 50% Syringe 50 Ml) 50 ml IVP PRN PRN; Protocol PRN Reason: hypoglycemia protocol Duloxetine HCl (Duloxetine 30 Mg Capsule) 30 mg PO DAILY [facility] Last Admin: 08/16/20 09:09 Dose: 30 mg Documented by: Escitalopram Oxalate (Escitalopram 10 Mg Tablet) 20 mg PO DAILY [facility] Last Admin: 08/16/20 09:09 Dose: 20 mg Documented by: Famotidine (Famotidine 20 Mg/2 Ml Inj) 20 mg IVP Q12H [facility] Last Admin: 08/16/20 23:42 Dose: 20 mg Documented by: Glucagon (Glucagon 1 Mg/Ml Inj 1 Ml) 1 mg IM ONCE PRN; Protocol PRN Reason: Adult Acute Hypoglycemia Prot. Norepinephrine Bitartrate 4 mg (/ Dextrose) 254 mls @ 0 mls/hr IV .Q0M [facility]; Protocol Last Titration: 08/16/20 11:28 Dose: 0 mcg/min, 0 mls/hr Documented by: Dextrose (D5w) 500 mls @ 100 mls/hr IV ONCE PRN; Protocol PRN Reason: Adult Acute Hypoglycemia Prot Insulin Human Regular 250 unit (/ Sodium Chloride) 252.5 mls @ 0 mls/hr IV .Q0M [facility]; Protocol Last Titration: 08/16/20 14:00 Dose: 0 mls/hr, 0 mls/hr Documented by: Cefepime HCl 2,000 mg/ Sodium (Chloride) 50 mls @ 100 mls/hr IV Q12H [facility]; Protocol Last Infusion: 08/16/20 23:49 Dose: Infused Documented by: Insulin Aspart (Insulin Aspart 100 Unit/1 Ml) 0 unit SUBCUT WM&BEDTIME [facility]; Protocol Last Admin: 08/16/20 20:21 Dose: Not Given Documented by: Insulin Glargine (Insulin Glargine 100 Units/1 Ml) 58 unit SUBCUT BEDTIME [facility] Last Admin: 08/16/20 22:08 Dose: Not Given Documented by: Isosorbide Dinitrate (Isosorbide Dinitrate 20 Mg Tablet) 10 mg PO BID [facility] Last Admin: 08/16/20 18:09 Dose: 10 mg Documented by: Morphine Sulfate (Morphine 4 Mg/Ml Sdv 1 Ml) 2 mg IVP Q4H PRN PRN Reason: SEVERE PAIN Last Admin: 08/16/20 18:10 Dose: 2 mg Documented by: Nitroglycerin (Nitroglycerin 0.4 Mg Sublingual Tablet) 0.4 mg SUBLINGUAL Q5M PRN PRN Reason: chest pain Ondansetron HCl (Ondansetron 2 Mg/Ml Sdv 2 Ml) 4 mg IVP Q8H PRN PRN Reason: NAUSEA AND VOMITING Last Admin: 08/16/20 09:55 Dose: 4 mg Documented by: Oxycodone HCl (Oxycodone Ir 30 Mg Tablet) 15 mg PO BID PRN PRN Reason: pain Last Admin: 08/16/20 15:29 Dose: 15 mg Documented by: Pantoprazole Sodium (Pantoprazole Dr 40 Mg Tablet) 40 mg PO DAILY [facility] Last Admin: 08/16/20 09:09 Dose: 40 mg Documented by: Prednisone (Prednisone 20 Mg Tablet) 20 mg PO DAILY [facility] Last Admin: 08/16/20 09:09 Dose: 20 mg Documented by: Vitals/I&O/Wt Last Vital Signs Temp 98.5 F 08/17/20 14:30 Pulse 85 08/17/20 16:00 Resp 17 08/17/20 16:00 BP 137/88 08/17/20 16:00 Pulse Ox 93 08/17/20 16:00 08/17/20 08/17/20 08/17/20 06:59 14:59 22:59 Intake Total 2147.5 / 5743.838 340 / 340 Output Total 100 / 400 40 / 40 50 / 90 Balance 2047.5 / 5343.838 300 / 300 -50 / 250 Weight last 48 hrs Weight 222 lb 8 oz Weight 218 lb 4 oz Physical Exam Narrative: EXAM NARRATIVE: GENERAL: Patient is alert, awake and oriented x3. NECK: No jugular vein distension. HEENT: No cyanosis. No icterus. No pallor. HEART: Regular S1 and S2. No murmur, rub or gallop. LUNGS: Clear to auscultate bilaterally. ABDOMEN: Mildly distended and nontender . Sluggish bowel sounds. No guarding, rebound or tenderness. CENTRAL NERVOUS SYSTEM: Grossly nonfocal. Data : 08/17/20 03:03 08/17/20 03:03 Micro: Microbiology 08/17/20 13:31 Blood Culture - Preliminary Blood SPECIMEN COLLECTED 08/17/20 13:30 Blood Culture - Preliminary Blood SPECIMEN COLLECTED 08/16/20 09:30 Urine Culture - Preliminary Urine,Clean Catch A&P Assessment and plan (1) Chest pain: Denies any more chest pain. Status: Acute Qualifiers: Chest pain type: chest pain on breathing Qualified Code(s): R07.1 - Chest pain on breathing (2) Pericardial effusion: Repeat echo showed moderate pericardial effusion which is slightly increased and more circumferential from the prior exam however still not hemodynamically significant. If requires for diagnostic purpose may can request pericardial tap Status: Acute (3) Pneumonia: As per medicine Status: Acute Qualifiers: Pneumonia type: due to unspecified organism Laterality: unspecified laterality Lung location: unspecified part of lung Qualified Code(s): J18.9 - Pneumonia, unspecified organism (4) Septic shock: As per medicine Status: Acute Attestations Medical Necessity Statement*: Patient require continuation hospitalization for above defined care Coding Level of Care Code Established Pt Acute Supervisor Water Softener Service for [facility] Fwd Patient Type Established History Detailed Exam Detailed Medical Decision Making Moderate Complexity Diagnoses Chest pain R07.1 Chest pain type: chest pain on breathing Pericardial effusion I31.3 Pneumonia J18.9 Pneumonia type: due to unspecified organism Laterality: unspecified laterality Lung location: unspecified part of lung Septic shock A41.9; R65.21
[2020-08-17 20:16] LABS: Glucose Point of Care 150 mg/dL (70-110)
--- NOTE | 2020-08-17 20:36 | PM.EVENT ---
Event Note Event Note: Called and asked about evening lantus dose of 58 units sq. Blood sugar ~150. Similar blood sugar last evening and she did not receive lantus. Day BS ranged 70s-150s. At this time I changed lantus to 5 units at bedtime, given DKA at admission and adjusted sliding scale. Looks like home regimen is lantus in the morning. From notes has been confused and review of I&Os shows little oral intake. Discussed with nursing. Will need to monitor blood sugars and adjust insulin accordingly during stay as clinical condition changes. Event Notes Attestations Time Spent in Patient Care: less than 15 minutes 10 minutes reviewing chart, documenting and discussing with nurse.
[2020-08-17] MEDS: insulin glargine 100 units/1 mL 5 UNIT SUBCUT (21:13)
[2020-08-17] MEDS: famotidine 20 mg/2 mL INJ IVP (23:40)
[2020-08-18] VITALS (99 sets, daily range): BP systolic 120–185; BP diastolic 68–115; PULSE 83–111; RESP 6–24; TEMP 35.8–36.8; O2SAT 91–96
[2020-08-18 03:59] LABS: Basophils % 0.1 %; Hematocrit 33.6 % (37.0-47.0); Lymphocytes # 0.5 10^3/uL (0.8-4.8); Lymphocytes % 4.3 %; Mean Corpuscular HGB Conc 32.7 g/dL (30.0-36.0); Mean Corpuscular Hemoglobin 29.4 pg (28.0-34.0); Mean Corpuscular Volume 89.8 fL (81-99); Mean Platelet Volume 11.3 fL (7.4-10.4); Monocytes # 0.5 10^3/uL (0.2-0.9); Monocytes % 4.8 %; Neutrophils # 9.24 10^3/uL (1.8-7.7); Neutrophils % 88.5 %; Nucleated Red Blood Cells % 0.2 %; Platelet Count 55 10^3/cmm (130-400); Red Blood Count 3.74 10^6/uL (4.1-5.3); Red Cell Distribution Width 14.7 % (12.1-15.1); White Blood Count 10.4 10^3/uL (4.0-10.0)
[2020-08-18 04:08] LABS: INR 2.44 (0.8-1.2)
[2020-08-18] MEDS: hyDRALAzine 25 mg Tablet PO (04:17)
[2020-08-18 04:19] LABS: Lactate (Lactic Acid level) 1.9 mmol/L (0.5-2.2)
[2020-08-18 04:24] LABS: NT Pro B Type Natriuretic Pept 1176 pg/mL (0-125); Procalcitonin 4.32 ng/mL (0-0.5)
[2020-08-18 04:35] LABS: Vancomycin Trough 31.5 ug/mL (10-15)
[2020-08-18 04:39] LABS: Albumin Level 2.8 g/dL (3.5-5.2); Alkaline Phosphatase 519 IU/L (35-105); Anion Gap 19.7 (5-19); Blood Urea Nitrogen 47 mg/dL (6-20); C Reactive Protein 208.9 mg/L (0.0-4.9); Calcium 7.6 mg/dL (8.5-10.5); Carbon Dioxide 20 mmol/L (22-29); Chloride 98 mmol/L (98-107); Creatine Phosphokinase 33 U/L (26-192); Globulin 2.9 g/dL (1.3-4.6); Glomerular Filtration Rate 20.3 mL/min (90-130); Glucose 119 mg/dL (65-115); Magnesium 1.6 mg/dL (1.7-2.3); Osmolality Calculated 291 mOsm/kg (285-295); Potassium 3.7 mmol/L (3.5-5.1); Sodium 134 mmol/L (136-145); Total Bilirubin 0.6 mg/dL (0.15-1.2); Total Protein 5.7 g/dL (6.6-8.7); Uric Acid 9.1 mg/dL (2.4-5.7)
[2020-08-18 04:52] LABS: Alanine Aminotransferase 2906 U/L (0-33)
[2020-08-18 05:00] LABS: Aspartate Amino Transferase 1453 U/L (0-32)
--- NOTE | 2020-08-18 06:52 | P.PN_ITS ---
Subjective Subjective: Interval history: more lethargic today Medications: Reviewed: Yes Vitals/I&O/Wt Last Vital Signs Temp 98.2 F 08/18/20 04:30 Pulse 85 08/18/20 06:30 Resp 15 08/18/20 06:30 BP 179/100 08/18/20 06:30 Pulse Ox 94 08/18/20 06:30 08/17/20 08/17/20 08/18/20 14:59 22:59 06:59 Intake Total 340 / 340 650 / 990 360 / 1350 Output Total 40 / 40 175 / 215 1050 / 1265 Balance 300 / 300 475 / 775 -690 / 85 Weight last 48 hrs Weight 100.924 kg Physical Exam Extremity: GENERAL: No edema Data : 08/18/20 03:33 08/18/20 03:33 Other Labs: Ca 7.6, Phos 5, Mg 1.6, albumin 2.8 Micro: Microbiology 08/17/20 13:31 Blood Culture - Preliminary Blood SPECIMEN COLLECTED 08/17/20 13:30 Blood Culture - Preliminary Blood SPECIMEN COLLECTED 08/16/20 09:30 Urine Culture - Preliminary Urine,Clean Catch CT Abd/Pel: Radiologist's impression: 08/17/20, no contrast: FINDINGS:Fluid distended small bowel with air-fluid levels. Air-fluid levels within the transverse colon. Findings likely due to adynamic ileus versus developing partial small bowel obstruction. No transition point visualized. Recommend interval follow-up. Small amount of free fluid in the pelvis. Prior cholecystectomy hysterectomy. Normal noncontrast liver. Cholecystectomy clips. Moderate partially visualized pericardial effusion. Small right pleural effusion with compressive atelectasis in the right lower lobe. Tiny left pleural effusion. Diffuse body wall anasarca. Adrenal glands are normal. Normal renal parenchymal enhancement. No hydronephrosis. Splenic granulomas. Right femoral catheter.Normal caliber abdominal aorta. A&P Additional A&P Information 1. Acute kidney injury, nonoliguric, urine output improving without diuretics. No indication for dialysis at this time. 2. Sepsis syndrome, LFTs improving 3. Metabolic acidosis 4. Mild hyponatremia 5. High vancomycin level - discontinued Repeat BMP tomorrow. 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
[2020-08-18 08:01] LABS: Glucose Point of Care 102 mg/dL (70-110)
[2020-08-18] MEDS: cloNIDine 0.1 mg Tablet PO (08:26)
[2020-08-18] MEDS: amlodipine 10 mg Tablet PO (08:26)
[2020-08-18] MEDS: isosorbide dinitrate 20 mg Tablet 10 MG PO (08:30)
[2020-08-18] MEDS: pantoprazole DR 40 mg Tablet PO (08:30)
[2020-08-18] MEDS: levETIRAcetam 500 mg Tablet 1000 MG PO (08:33)
[2020-08-18] MEDS: sevelamer 800 mg Tablet 1600 MG PO ×3 (08:40→21:09)
--- NOTE | 2020-08-18 09:36 | PC.CHAP ---
Pastoral Care Encounter/Spiritual Assessment Type of Contact [] Declined procurement coordinator visit [] Patient/Family/Request visit [] Outpatient visit [] Follow-up visit [] Physician referral [] Code/Alert [x] Routine visit [] Staff referral [] Actively dying [] Patient sleeping [] Family support [] [] Out of room [] Palliative care [] [] Receiving care in room [] Pre-surgical visit [] Trauma [] Long length of stay [x ICU visit [] Other: Relational/Emotional Strength [] Patient feels connected with others/family/visitors/staff [] Distress [] Loneliness/isolation [] Abandonment Spirituality of Patient [] Person of Yadira [] Attends [employer] of their Yadira [] Believes in Prayer [] Reads Bible or Moravian materials [] There are Spiritual issues to be addressed Tableau Report Developer Interventions [x] Prayer [] Active listening [] Non-anxious presence [] Spiritual/emotional support [] Crisis/trauma care [] Spiritual counseling [] Bereavement support [] Provided bereavement packet [] Provided Bible/devotional materials [] Provided toy/stuffed animal, coloring book to patient or family member [] Provided Communion [] Anointing/[place] [] Salvation [x] Completed spiritual assessment [] Other: Impact on Illness or Injury [] Angry [] Fearful [] Anxious [] Often cries [] Exhaustion [] Unable to work [] Unable to attend anglican [] Unable to walk/stand [] Unable to read [] Unable to drive [] Unable to eat/drink [] Unable to sleep [] Unable to be with family [] Patient intubated [] Other: Summary Time spent with patient
--- NOTE | 2020-08-18 09:51 | P.PN_ITS ---
Subjective Subjective: Interval history: Patient opens her eyes and close upon the command stable vital beauchamp in fact hypertensive. She appeared well vital beauchamp has improved metabolically, liver function and renal function has improved Medications: Reviewed: Yes Medication Review Details: Current Medications Acetaminophen (Acetaminophen 325 Mg Tablet) 650 mg PO Q6H PRN PRN Reason: Mild/Mod Pain Or Temp >/= 101 Last Admin: 08/15/20 01:02 Dose: 650 mg Documented by: Apixaban (Apixaban 5 Mg Tablet) 2.5 mg PO Q12H [facility] Last Admin: 08/16/20 20:21 Dose: 2.5 mg Documented by: Bisacodyl (Bisacodyl 10 Mg Supp) 10 mg [place] ONCE PRN PRN Reason: CONSTIPA Colchicine (Colchicine 0.6 Mg Tablet) 0.6 mg PO DAILY [facility] Last Admin: 08/16/20 09:09 Dose: 0.6 mg Documented by: Dextrose (Dextrose 50% Syringe 50 Ml) 50 ml IVP PRN PRN; Protocol PRN Reason: hypoglycemia protocol Duloxetine HCl (Duloxetine 30 Mg Capsule) 30 mg PO DAILY [facility] Last Admin: 08/16/20 09:09 Dose: 30 mg Documented by: Escitalopram Oxalate (Escitalopram 10 Mg Tablet) 20 mg PO DAILY [facility] Last Admin: 08/16/20 09:09 Dose: 20 mg Documented by: Famotidine (Famotidine 20 Mg/2 Ml Inj) 20 mg IVP Q12H [facility] Last Admin: 08/16/20 23:42 Dose: 20 mg Documented by: Glucagon (Glucagon 1 Mg/Ml Inj 1 Ml) 1 mg IM ONCE PRN; Protocol PRN Reason: Adult Acute Hypoglycemia Prot. Norepinephrine Bitartrate 4 mg (/ Dextrose) 254 mls @ 0 mls/hr IV .Q0M [facility]; Protocol Last Titration: 08/16/20 11:28 Dose: 0 mcg/min, 0 mls/hr Documented by: Dextrose (D5w) 500 mls @ 100 mls/hr IV ONCE PRN; Protocol PRN Reason: Adult Acute Hypoglycemia Prot Insulin Human Regular 250 unit (/ Sodium Chloride) 252.5 mls @ 0 mls/hr IV .Q0M [facility]; Protocol Last Titration: 08/16/20 14:00 Dose: 0 mls/hr, 0 mls/hr Documented by: Cefepime HCl 2,000 mg/ Sodium (Chloride) 50 mls @ 100 mls/hr IV Q12H [facility]; Protocol Last Infusion: 08/16/20 23:49 Dose: Infused Documented by: Insulin Aspart (Insulin Aspart 100 Unit/1 Ml) 0 unit SUBCUT WM&BEDTIME [facility]; Protocol Last Admin: 08/16/20 20:21 Dose: Not Given Documented by: Insulin Glargine (Insulin Glargine 100 Units/1 Ml) 58 unit SUBCUT BEDTIME [facility] Last Admin: 08/16/20 22:08 Dose: Not Given Documented by: Isosorbide Dinitrate (Isosorbide Dinitrate 20 Mg Tablet) 10 mg PO BID [facility] Last Admin: 08/16/20 18:09 Dose: 10 mg Documented by: Morphine Sulfate (Morphine 4 Mg/Ml Sdv 1 Ml) 2 mg IVP Q4H PRN PRN Reason: SEVERE PAIN Last Admin: 08/16/20 18:10 Dose: 2 mg Documented by: Nitroglycerin (Nitroglycerin 0.4 Mg Sublingual Tablet) 0.4 mg SUBLINGUAL Q5M PRN PRN Reason: chest pain Ondansetron HCl (Ondansetron 2 Mg/Ml Sdv 2 Ml) 4 mg IVP Q8H PRN PRN Reason: NAUSEA AND VOMITING Last Admin: 08/16/20 09:55 Dose: 4 mg Documented by: Oxycodone HCl (Oxycodone Ir 30 Mg Tablet) 15 mg PO BID PRN PRN Reason: pain Last Admin: 08/16/20 15:29 Dose: 15 mg Documented by: Pantoprazole Sodium (Pantoprazole Dr 40 Mg Tablet) 40 mg PO DAILY [facility] Last Admin: 08/16/20 09:09 Dose: 40 mg Documented by: Prednisone (Prednisone 20 Mg Tablet) 20 mg PO DAILY [facility] Last Admin: 08/16/20 09:09 Dose: 20 mg Documented by: Vitals/I&O/Wt Last Vital Signs Temp 96.4 F L 08/18/20 08:00 Pulse 88 08/18/20 09:42 Resp 11 L 08/18/20 08:00 BP 179/105 08/18/20 08:26 Pulse Ox 94 08/18/20 09:42 08/17/20 08/18/20 08/18/20 22:59 06:59 14:59 Intake Total 650 / 990 360 / 1350 118 / 118 Output Total 175 / 215 1050 / 1265 400 / 400 Balance 475 / 775 -690 / 85 -282 / -282 Weight last 48 hrs Weight 222 lb 8 oz Physical Exam Narrative: EXAM NARRATIVE: GENERAL: Patient opens her eyes later but moans but does not clearly tells me what is going on NECK: No jugular vein distension. HEENT: No cyanosis. No icterus. No pallor. HEART: Regular S1 and S2. No murmur, rub or gallop. LUNGS: Clear to auscultate bilaterally. ABDOMEN: Mildly distended and nontender . Sluggish bowel sounds. No guarding, rebound or tenderness. CENTRAL NERVOUS SYSTEM: Grossly nonfocal. Data : 08/18/20 03:33 08/18/20 03:33 Micro: Microbiology 08/16/20 09:30 Urine Culture - Final Urine,Clean Catch 08/17/20 13:31 Blood Culture - Preliminary Blood SPECIMEN COLLECTED 08/17/20 13:30 Blood Culture - Preliminary Blood SPECIMEN COLLECTED A&P Assessment and plan (1) Chest pain: Denies any more chest pain I may will check a another set of cardiac markers Status: Acute Qualifiers: Chest pain type: chest pain on breathing Qualified Code(s): R07.1 - Chest pain on breathing (2) Pericardial effusion: Pericardial effusion remains moderate without any tamponade physiology. It is highly unlikely that was the cause of hypotension Status: Inactive (3) Pneumonia: As per medicine Status: Acute Qualifiers: Pneumonia type: due to unspecified organism Laterality: unspecified laterality Lung location: unspecified part of lung Qualified Code(s): J18.9 - Pneumonia, unspecified organism (4) Septic shock: Improved and resolved. Infectious hypertensive Status: Acute (5) Essential hypertension: Patient is hypertensive she cannot take medicine by p.o. route due to abdominal distention and possible ileus. She has a renal failure acute at this point I will opt for more controlled option of using nitro drip we will cautiously watch her blood pressure as some time it can reduce preload. Status: Acute (6) Acute renal failure: Started improving. Nephrology on board Status: Acute (7) Metabolic encephalopathy: Most likely cause of her disorientation metabolic versus narcotics questionable withdrawal Status: Acute Attestations Medical Necessity Statement*: Patient require continuation hospitalization for above defined care Coding Level of Care Code Established Pt Acute [employer] Patient Type Established History Detailed Exam Detailed Medical Decision Making Moderate Complexity Diagnoses Chest pain R07.1 Chest pain type: chest pain on breathing Pericardial effusion I31.3 Pneumonia J18.9 Pneumonia type: due to unspecified organism Laterality: unspecified laterality Lung location: unspecified part of lung Septic shock A41.9; R65.21 Essential hypertension I10 Acute renal failure N17.9 Metabolic encephalopathy G93.41
[2020-08-18] MEDS: colchicine 0.6 mg Tablet PO (10:12)
--- NOTE | 2020-08-18 10:12 | PC.NURSE ---
scan on cholchechine was not done because package was torn.
[2020-08-18 11:01] LABS: Glucose Point of Care 114 mg/dL (70-110)
[2020-08-18 11:12] LABS: Troponin T (5th) Once 12 ng/L (0-10)
[2020-08-18] MEDS: famotidine 20 mg/2 mL INJ IVP ×2 (11:16→22:48)
[2020-08-18] MEDS: cefepime 2,000 MG in sodium chloride 0.9% (plus) 50 ML 100 MG IV (11:16)
--- NOTE | 2020-08-18 11:47 | P.PN_ITS ---
Subjective Subjective: Interval history: Yesterday afternoon, patient was examined, she is much more alert, awake, sitting up in bed, following commands, knows that she is in the hospital, but still quite forgetful, most of her narcotics, benzodiazepines, other neuroleptics have been held This morning, patient arouses, but falls back asleep, she says she is doing okay, but cannot really elaborate, no facial droop, no slurring of her speech, she does follow some commands, but will fall back asleep Medications: Reviewed: Yes Medication Review Details: Current Medications Acetaminophen (Acetaminophen 325 Mg Tablet) 650 mg PO Q6H PRN PRN Reason: Mild/Mod Pain Or Temp >/= 101 Last Admin: 08/15/20 01:02 Dose: 650 mg Documented by: Apixaban (Apixaban 5 Mg Tablet) 2.5 mg PO Q12H [facility] Last Admin: 08/16/20 20:21 Dose: 2.5 mg Documented by: Bisacodyl (Bisacodyl 10 Mg Supp) 10 mg [place] ONCE PRN PRN Reason: CONSTIPA Colchicine (Colchicine 0.6 Mg Tablet) 0.6 mg PO DAILY [facility] Last Admin: 08/16/20 09:09 Dose: 0.6 mg Documented by: Dextrose (Dextrose 50% Syringe 50 Ml) 50 ml IVP PRN PRN; Protocol PRN Reason: hypoglycemia protocol Duloxetine HCl (Duloxetine 30 Mg Capsule) 30 mg PO DAILY [facility] Last Admin: 08/16/20 09:09 Dose: 30 mg Documented by: Escitalopram Oxalate (Escitalopram 10 Mg Tablet) 20 mg PO DAILY [facility] Last Admin: 08/16/20 09:09 Dose: 20 mg Documented by: Famotidine (Famotidine 20 Mg/2 Ml Inj) 20 mg IVP Q12H [facility] Last Admin: 08/16/20 23:42 Dose: 20 mg Documented by: Glucagon (Glucagon 1 Mg/Ml Inj 1 Ml) 1 mg IM ONCE PRN; Protocol PRN Reason: Adult Acute Hypoglycemia Prot. Norepinephrine Bitartrate 4 mg (/ Dextrose) 254 mls @ 0 mls/hr IV .Q0M [facility]; Protocol Last Titration: 08/16/20 11:28 Dose: 0 mcg/min, 0 mls/hr Documented by: Dextrose (D5w) 500 mls @ 100 mls/hr IV ONCE PRN; Protocol PRN Reason: Adult Acute Hypoglycemia Prot Insulin Human Regular 250 unit (/ Sodium Chloride) 252.5 mls @ 0 mls/hr IV .Q0M [facility]; Protocol Last Titration: 08/16/20 14:00 Dose: 0 mls/hr, 0 mls/hr Documented by: Cefepime HCl 2,000 mg/ Sodium (Chloride) 50 mls @ 100 mls/hr IV Q12H [facility]; Protocol Last Infusion: 08/16/20 23:49 Dose: Infused Documented by: Insulin Aspart (Insulin Aspart 100 Unit/1 Ml) 0 unit SUBCUT WM&BEDTIME [facility]; Protocol Last Admin: 08/16/20 20:21 Dose: Not Given Documented by: Insulin Glargine (Insulin Glargine 100 Units/1 Ml) 58 unit SUBCUT BEDTIME [facility] Last Admin: 08/16/20 22:08 Dose: Not Given Documented by: Isosorbide Dinitrate (Isosorbide Dinitrate 20 Mg Tablet) 10 mg PO BID [facility] Last Admin: 08/16/20 18:09 Dose: 10 mg Documented by: Morphine Sulfate (Morphine 4 Mg/Ml Sdv 1 Ml) 2 mg IVP Q4H PRN PRN Reason: SEVERE PAIN Last Admin: 08/16/20 18:10 Dose: 2 mg Documented by: Nitroglycerin (Nitroglycerin 0.4 Mg Sublingual Tablet) 0.4 mg SUBLINGUAL Q5M PRN PRN Reason: chest pain Ondansetron HCl (Ondansetron 2 Mg/Ml Sdv 2 Ml) 4 mg IVP Q8H PRN PRN Reason: NAUSEA AND VOMITING Last Admin: 08/16/20 09:55 Dose: 4 mg Documented by: Oxycodone HCl (Oxycodone Ir 30 Mg Tablet) 15 mg PO BID PRN PRN Reason: pain Last Admin: 08/16/20 15:29 Dose: 15 mg Documented by: Pantoprazole Sodium (Pantoprazole Dr 40 Mg Tablet) 40 mg PO DAILY [facility] Last Admin: 08/16/20 09:09 Dose: 40 mg Documented by: Prednisone (Prednisone 20 Mg Tablet) 20 mg PO DAILY [facility] Last Admin: 08/16/20 09:09 Dose: 20 mg Documented by: Vitals/I&O/Wt Last Vital Signs Temp 96.4 F L 08/18/20 08:00 Pulse 86 08/18/20 10:00 Resp 10 L 08/18/20 10:00 BP 171/90 08/18/20 10:00 Pulse Ox 94 08/18/20 10:00 08/17/20 08/18/20 08/18/20 22:59 06:59 14:59 Intake Total 650 / 990 360 / 1350 118 / 118 Output Total 175 / 215 1050 / 1265 400 / 400 Balance 475 / 775 -690 / 85 -282 / -282 Weight last 48 hrs Weight 100.924 kg Physical Exam Const: COMMON NORMALS: no acute distress ORIENTATION/CONSCIOUSNESS: Yes awake and Yes oriented to person; not oriented to place and not oriented to time HENMT: COMMON NORMALS: normocephalic HEAD & SCALP: normocephalic Neck/C-Spine: COMMON NORMALS: no JVD Resp: COMMON NORMALS: normal respiratory effort, No retractions, No use of accessory muscles and clear to auscultation bilaterally AUSCULTATION: clear to auscultation bilaterally Cardio: COMMON NORMALS: no JVD, regular rate, regular rhythm, S1 normal heart sound present and S2 normal heart sound present RATE: regular rate RHYTHM: regular rhythm HEART SOUNDS: S1 normal heart sound present and S2 normal heart sound present GI: COMMON NORMALS: Normal to inspection, nondistended, normoactive bowel sounds present, Soft to palpation, non-tender, No hepatosplenomegaly present, no masses and no bruits PALPATION: Yes Soft to palpation and Yes No hepatosplenomegaly present Extremity: COMMON NORMALS: capillary refill normal, no clubbing, cyanosis or edema, no calf tenderness and no pedal edema Neuro: COMMON NORMALS: CN's II-XII intact bilaterally and moves all extremities SENSORIUM/ORIENTATION: Yes oriented to person, No oriented to place and No oriented to time Psych: COMMON NORMALS: mental status grossly normal and speech normal ATTITUDE: Yes calm SPEECH: Yes normal speech MEMORY/COGNITION: Yes memory grossly impaired and Yes cognition grossly impaired Data : 08/18/20 03:33 08/18/20 03:33 Micro: Microbiology 08/16/20 09:30 Urine Culture - Final Urine,Clean Catch 08/17/20 13:31 Blood Culture - Preliminary Blood SPECIMEN COLLECTED 08/17/20 13:30 Blood Culture - Preliminary Blood SPECIMEN COLLECTED A&P Assessment and plan (1) Pericardial effusion: -Cardiac echogram from August 15, 2020 shows: Moderate pericardial effusion. Pericardial effusion located anteriorly. Pericardial effusion located posteriorly. Echocardiographic findings suggest a non hemodynamically significant pericardial effusion. No right atrial or right ventricular diastolic collapse. -Patient has had hypotensive episodes overnight, one episode yesterday afternoon, but no associate tachycardia, no JVD -Pericardial effusion seems not hemodynamically significant currently -Repeat cardiac echocardiogram shows slight increase in pericardial effusion, no tamponade physiology -Patient has been hypertensive for the last 12 hours, no hypotensive episodes -Currently on empiric antibiotics, vancomycin has been stopped due to vancomycin due to nephrotoxicity, currently on cefepime and Zyvox and azithromycin -On Solu-Medrol 40 every 12 hours -On colchicine -Rheumatologic work-up pending -No plans on pericardiocentesis currently Status: Inactive (2) Chest pain: -No evidence of pulmonary emboli on CT angiogram of the chest - 6 hour troponin 10.62 -EKG no acute ST-T wave changes -Has no chest pain complaints -Stress test on April 01, 2020 shows low probability cardiac stress test Status: Acute (3) Septic shock: -No more episodes of hypotension, is hypertensive -Had a right femoral line placed, required pressors for a short-term, currently off pressors, normotensive -The exact source of patient's sepsis is not exactly definite at this point -Lactic acid within normal limits -CT of the chest did show new infiltrates in the left lung base, possible pneumonia playing a role -UA did show evidence of UTI, with positive leukocyte esterase, positive WBCs, bacteria, -She has been on vancomycin and cefepime since admission, which subsequently has been changed to Zyvox and cefepime -Meningitis unlikely, she does have episodes of confusion, no neck pain, no neck stiffness, no fevers, she has had an 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 in the past including LP, MRIs, EEGs, has finished acyclovir, and cefepime -She had Covid pneumonia, has finished treatment, no fevers, no shortness of breath, is on her home 3 L -CT scan of the abdomen pelvis no focal signs of infection -White blood cell count 10.4, ESR 52, INR 2.44, lactate 1.9, CRP 208, Plan: -Continue Zyvox, cefepime, azithromycin -Repeat blood cultures, urine cultures pending -Repeat inflammatory markers -Right femoral line in place Status: Acute (4) Pneumonia: CT of the chest shows new infiltrates in the left lung base, possible pneumonia Status: Acute Qualifiers: Pneumonia type: due to unspecified organism Laterality: unspecified laterality Lung location: unspecified part of lung Qualified Code(s): J18.9 - Pneumonia, unspecified organism (5) Acute renal failure: -Likely multifactorial from contrast, vancomycin induced nephrotoxicity vancomycin trough 52, prerenal given hypotensive episodes, septic shock -No significant obstructive uropathy seen on imaging -Creatinine 2.5, urine output 1625 -Nephrology on consult -Monitor electrolytes closely Status: Acute (6) Ischemic hepatitis: -AST ALT are improving -Alk phos elevation -No significant T bili elevation -Elevated ammonia level in the 20s -Acute hepatitis panel unremarkable -Likely related to hypotensive episodes, septic shock -CT scan of the abdomen pelvis had no acute findings -Minimize hypotensive episodes, antibiotics as above -Lactulose for elevated ammonia levels Status: Acute (7) Metabolic encephalopathy: Likely multifactorial, from electrolyte abnormalities, elevated ammonia levels, sepsis, infection, pain medications -Currently holding all pain medications, including duloxetine, gabapentin, baclofen, alprazolam -Monitor mentation closely -CT of the head no acute stroke Status: Acute (8) Hyponatremia: Status: Acute (9) Rheumatoid arthritis: Status: Acute Qualifiers: Rheumatoid arthritis location: unspecified site Rheumatoid factor presence: unspecified presence Qualified Code(s): M06.9 - Rheumatoid arthritis, unspecified (10) Leukocytosis: Status: Inactive Qualifiers: Leukocytosis type: unspecified Qualified Code(s): D72.829 - Elevated white blood cell count, unspecified (11) Hypotension: Status: Acute Additional A&P Information Erin Kelley is a 49 year old female with multiple medical problems including diabetes, rheumatoid arthritis, COPD, emphysema who presented to the emergency department with a complaint of chest pain. Chest shows pleural and pericardial effusion. She is empirically being treated antibiotics. She was on hydroxychloroquine for her RA. She has been placed on steroids. previous on biologics and DMARDs, treatment has been limited 2/2 infections. #HTN: Quite hypertensive this morning, will be started on a nitro drip, titrate blood pressures carefully given pericardial effusion #CT scan of the abdomen pelvis showed Fluid distended large and small bowel with air-fluid levels. No visualized transition point. Findings likely due to adynamic ileus versus developing partial small bowel obstruction. -Continue lactulose, MiraLAX -Monitor for bowel movements -Monitor for nausea vomiting #pleural effusion -Not clinically significant to tap -RAZIA profile, C3, C4, hep panel, RF, CCP, ANCA, UA sent #Mediastinal and hilar adenopathy, will need an outpatient bronchoscopy # seropositive RA -active -on prednisone - adjust DMARDs as outpatient #IDDM -insulin gtt DVT:Eliquis Attestations Medical Necessity Statement*: Patient requires hospitalization for metabolic encephalopathy, pericardial effusion, sepsis, hypertension, Coding Level of Care Code Acute [employer] [facility] Fwd Diagnoses Pericardial effusion I31.3 Chest pain R07.9 Septic shock A41.9; R65.21 Pneumonia J18.9 Pneumonia type: due to unspecified organism Laterality: unspecified laterality Lung location: unspecified part of lung Acute renal failure N17.9 Ischemic hepatitis K75.9 Metabolic encephalopathy G93.41 Hyponatremia E87.1 Rheumatoid arthritis M06.9 Rheumatoid arthritis location: unspecified site Rheumatoid factor presence: unspecified presence Leukocytosis D72.829 Leukocytosis type: unspecified Hypotension I95.9
[2020-08-18 13:21] LABS: ABG PH Result 7.45 (7.35-7.45); Alveolar-Arterial Oxygen Gradi 5.7 mmHg (5-10); Arterial Blood Gas Hematocrit 34.1 % (37-47); Base Excess ABG -2.2 mmol/L (-2.0-2.0); Blood Gas Allen Test Pos; Blood Gas Operator Identificat CAK; Blood Gas Sample Site Radial, left; Blood Gas Sample Type Arterial; Carboxyhemoglobin 0.8 %THgb (0.4-20.1); HCO3 ABG 20.9 mmol/L (22-26); HGB O2 Sat 92.4 % (95-100); Ionized Calcium Level - ABG 1.1 mmol/L (1.1-1.4); Oxygen Device NC; Oxygen Saturation ABG 94.1; PO2 ABG 68.6 mmHg (80.0-100.0); Potassium Level - ABG 3.4 mmol/L (3.5-5.0); Total Hemoglobin 11.1 g/dL (12-16)
[2020-08-18] MEDS: linezolid premix 600 MG/300 ML PREMIX 300 MG IV ×2 (13:21→23:52)
[2020-08-18] MEDS: lactulose oral liq 20 gm/30 mL UDC PO ×2 (13:22→23:53)
[2020-08-18] MEDS: nitroglycerin drip 50 MG/250 ML PREMIX IV (13:39)
--- NOTE | 2020-08-18 13:50 | PC.NURSE ---
Pt starting to refuse anything oral. Staff having difficulty keeping her awake with speaking with her. Dr. Lane aware.
[2020-08-18 13:56] LABS: Lactate Dehydrogenase 577 U/L (135-214)
[2020-08-18] MEDS: azithromycin 500 MG in sodium chloride 0.9% 250 ML 250 MG IV (13:58)
[2020-08-18 14:43] LABS: Anti-streptolysin O <50 IU/mL (<200)
--- NOTE | 2020-08-18 15:09 | PC.NURSE ---
Domingo messaged for something for pain. she is groaning with pain and very aggitated.
[2020-08-18] MEDS: morphine 4 mg/mL SDV 1 mL 1 MG IVP ×2 (16:02→22:49)
[2020-08-18 17:21] LABS: Glucose Point of Care 168 mg/dL (70-110)
--- NOTE | 2020-08-18 18:39 | PC.NURSE ---
Per Dr. Lane verbal by phone, continue to hold Eliquis. Nurse applied bilateral SCDs.
--- NOTE | 2020-08-18 18:44 | PC.NURSE ---
Pt did swallow medications with encouragement and repeated reminders this morning. By afternoon PO meds were crushed and added to applesauce, also required repeated awakening of pt, encouragement and reminders to swallow, followed by fluid between bites.
[2020-08-18 19:46] LABS: Glucose Point of Care 139 mg/dL (70-110)
--- NOTE | 2020-08-18 19:53 | P.CONIM_ITS ---
Providers/Reason For Consult Consulting Physican/Specialty*: Jaydon Murcia MD Reason for Consult*: Encephalopathy Attending Physician: Jaydon Lane MD Primary Care Provider: eNl Peacock MD History of Present Illness History of Present Illness Erin Kelley is a 49 year old woman with waxing and waning mental status that has not directly correlated with her markedly elevated liver enzymes. I am familiar with this patient and saw her last year after she was hospitalized. She was taken off of baclofen and her opioids were reduced and when I saw her in May her said she was the live list that she had been in several years. She had an extensive work-up during her last hospital stay and that included MRI of the brain 05/29/2020 that showed confluent periventricular white matter signal abnormalities that had progressed since 2017 including activity in the yana and periventricular. During my examination on 06/15/2020 she was oriented to 10 of 10 questions and could follow a complex command but I thought she was probably mildly demented. I plan to follow-up and ask her to keep her off of sedatives. She followed up in the pain clinic and continued opioids from Dr. Mckeon. She presented here with chest pain 08/14/2020 as she was hypotensive with systolic blood pressure of 90. She had severe leukocytosis. She was started on antibiotics for pneumonia and treatment for pericarditis (colchicine and ibuprofen). She was observed to be acidotic and in acute renal failure for which she was seen by nephrology. She was noted to be mildly confused when examined by Dr. Murcia 08/17/2020 and he called me about her. After looking at her laboratory exam I suggested that she might be in hepatic failure with hepatic encephalopathy. Yesterday afternoon he said she was much more alert. This morning she was again somnolent. Although her ammonia level was high earlier in the admission it has come down. She has multiple medical problems. She has pleural and pericardial effusions. She has continued to have episodes of hypotension. She is on antibiotics for presumed infection. She has a new infiltrate in the left lung base thought to be pneumonia and a urinary tract infection. She has she has a history of portal vein thrombosis in 2017. CT of the abdomen and pelvis yesterday showed fluid distended large and small bowel with air-fluid levels consistent with adynamic ileus. Right pleural effusion and atelectasis of the right lower lobe. The liver appeared unremarkable. Liver enzymes markedly elevated. On 08/14 her AST went up to 94 and yesterday it was 4757, down to 1453 today. ALT comparably elevated. Albumin depressed at 2.8. INR is up to 2.44. Her rheumatoid factor is markedly elevated 263. RAZIA and profile are pending. She had extensive evaluation for meningitis and other infections in May and again this admission. Her hepatitis panel is negative. She was evaluated for rickettsial and Lyme disease in May and that was all negative. Herpes virus 1 and 2 were negative. Meds/Allergies Home Medications and Allergies Home Medications Medication Instructions Recorded Confirmed Last Taken Type apixaban 5 mg tablet 5 mg PO BID 09/04/19 08/15/20 05/18/20 History insulin glargine 100 unit/mL 50 unit SUBCUT DAILY@0800 09/04/19 08/15/20 08/14/20 History subcutaneous solution ropinirole 2 mg tablet 2 mg PO BEDTIME 09/04/19 08/15/20 05/17/20 History rosuvastatin 20 mg tablet 20 mg PO DAILY 09/04/19 08/15/20 08/14/20 History escitalopram oxalate 20 mg tablet 20 mg PO DAILY 09/05/19 08/15/20 05/18/20 History omeprazole 40 mg capsule,delayed 40 mg PO DAILY cap 09/05/19 08/15/20 08/14/20 History release nitroglycerin 0.4 mg sublingual 0.4 mg SUBLINGUAL Q5M PRN 30 Days 09/09/19 08/15/20 Unknown Rx tablet #25 tab isosorbide dinitrate 30 mg tablet 15 mg PO BID 90 Days #90 tab 10/03/19 08/15/20 08/14/20 Rx Glucagon (HCl) Emergency Kit 1 mg SUBCUT Q20M PRN #0 11/01/19 08/15/20 Unknown History epinephrine [EpiPen 2-Carrington] See Rx Instructions .ROUTE 11/01/19 08/15/20 Unknown History .COMPLEX PRN insulin aspart U-100 [Novolog See Rx Instructions .ROUTE .COMPLEX 11/01/19 08/15/20 08/14/20 History Flexpen U-100 Insulin] trazodone 50 mg tablet 50 mg PO BEDTIME tab 07/08/2908/15/20 08/13/20 History duloxetine 30 mg capsule,delayed 30 mg PO DAILY 30 Days #30 cap 03/18/20 08/15/20 05/18/20 Rx release albuterol sulfate 2.5 mg INHALATION Q6H PRN 04/01/20 08/15/20 08/14/20 History hydroxychloroquine 200 mg tablet 200 mg PO BID #60 tab 05/12/20 08/15/20 05/18/20 Rx Combivent Respimat 1 puff INHALATION Q6H PRN 05/18/20 08/15/20 08/14/20 History Bevespi Aerosphere 2 puff INHALATION BID 05/28/20 08/15/20 08/14/20 History amlodipine 5 mg PO DAILY #30 tab 06/04/20 08/15/20 08/14/20 Rx gabapentin 300 mg PO TID #10 cap 06/04/20 08/15/20 08/14/20 Rx sulfasalazine 500 mg tablet 0.5 g PO DAILY #30 tab 06/18/20 08/15/20 Unknown Rx ibuprofen 800 mg tablet 800 mg PO BID PRN 30 Days #60 tab 06/26/20 08/15/20 08/14/20 Rx oxycodone 15 mg tablet 15 mg PO BID PRN 30 Days #60 tab 06/26/20 08/15/20 08/14/20 Rx tramadol 50 mg tablet 50 mg PO TID PRN #90 tab 06/26/20 08/15/20 Unknown Rx nicotine 14 mg/24 hr daily 1 patch TRANSDERMAL DAILY #28 ea 07/13/20 08/15/20 08/14/20 Rx transdermal patch doxycycline hyclate 100 mg capsule 100 mg PO BID #28 cap 07/16/20 08/15/20 Unknown Rx silver sulfadiazine 1 % topical 1 applic TOPICAL BID #50 g 07/23/20 08/15/20 08/14/20 Rx cream cilostazol 50 mg tablet See Rx Instructions .ROUTE 08/10/20 08/15/20 Unknown Rx .COMPLEX #60 tab alprazolam 0.25 mg PO TID PRN 08/15/20 08/15/20 Unknown History aspirin [Aspir-81] 81 mg PO DAILY@0800 08/15/20 08/15/20 08/14/20 History docusate sodium [DOK] 200 mg PO DAILY 08/15/20 08/15/20 Unknown History prednisone 2.5 mg PO DAILY 08/15/20 08/15/20 08/14/20 History prednisone 5 mg PO DAILY 08/15/20 08/15/20 08/14/20 History Allergies Allergy/AdvReac Type Severity Reaction Status Date / Time bee venom protein (honey bee) Allergy ALGY-Anaphy Verified 07/30/20 09:20 laxis Current Medications Current Medications Generic Name Dose Route Start Last Admin Trade Name Freq PRN Reason Stop Dose Admin Acetaminophen 650 mg 08/14/20 23:35 08/15/20 01:02 Acetaminophen 325 Mg Tablet PO 650 mg Q6H PRN Administration Mild/Mod Pain Or Temp >/= 101 Apixaban 2.5 mg 08/16/20 09:00 08/17/20 20:18 Apixaban 5 Mg Tablet PO 2.5 mg Q12H PHONG Administration Colchicine 0.6 mg 08/15/20 10:45 08/18/20 10:12 Colchicine 0.6 Mg Tablet PO 0.6 mg DAILY PHONG Administration Famotidine 20 mg 08/14/20 23:35 08/18/20 11:16 Famotidine 20 Mg/2 Ml Inj IVP 20 mg Q12H PHONG Administration Linezolid 600 mg in 300 mls @ 300 mls/hr 08/17/20 12:00 08/18/20 14:30 Zyvox Premix IV Infused Q12H PHONG Infusion Protocol Cefepime HCl 2,000 mg/ Sodium 50 mls @ 100 mls/hr 08/18/20 11:00 08/18/20 11:16 Chloride IV 100 mls/hr Q24H PHONG Administration Protocol Azithromycin 500 mg/ Sodium 250 mls @ 250 mls/hr 08/17/20 13:00 08/18/20 13:58 Chloride IV 250 mls/hr Q24H PHONG Administration Protocol Nitroglycerin/Dextrose 50 mg in 250 mls @ 0 mls/hr 08/18/20 13:15 08/18/20 14:17 Nitroglycerin Drip IV 15 mcg/min .Q0M PHONG 4.5 mls/hr Titration Protocol Per Protocol Insulin Aspart 0 unit 08/17/20 21:00 08/17/20 20:44 Insulin Aspart 100 Unit/1 Ml SUBCUT Not Given BEDTIME [facility] Protocol Insulin Aspart 0 unit 08/18/20 08:00 08/18/20 18:02 Insulin Aspart 100 Unit/1 Ml SUBCUT 2 unit TIDWM PHONG Administration Protocol Insulin Glargine 5 unit 08/17/20 21:00 08/17/20 21:13 Insulin Glargine 100 Units/1 Ml SUBCUT 5 unit BEDTIME PHONG Administration Isosorbide Dinitrate 10 mg 08/16/20 18:00 08/18/20 19:29 Isosorbide Dinitrate 20 Mg Tablet PO Not Given BID [facility] Lactulose 20 gm 08/17/20 12:30 08/18/20 13:22 Lactulose Oral Liq 20 Gm/30 Ml Udc PO 20 gm Q12H PHONG Administration Methylprednisolone Sodium Succinate 40 mg 08/17/20 13:00 08/18/20 13:59 Methylprednisolone Sod Succ 40 Mg/Ml Inj IVP 40 mg Q12H PHONG Administration Morphine Sulfate 1 mg 08/18/20 15:49 08/18/20 16:02 Morphine 4 Mg/Ml Sdv 1 Ml IVP 1 mg Q4H PRN Administration SEVERE PAIN Ondansetron HCl 4 mg 08/15/20 05:13 08/17/20 14:38 Ondansetron 2 Mg/Ml Sdv 2 Ml IVP 4 mg Q8H PRN Administration NAUSEA AND VOMITING Pantoprazole Sodium 40 mg 08/15/20 09:00 08/18/20 08:[address] 40 Mg Tablet PO 40 mg DAILY PHONG Administration Polyethylene Glycol 17 gm 08/18/20 12:00 08/18/20 19:29 Polyethylene Glycol 3350 Pkt 17 Gm PO Not Given DAILY [facility] Sevelamer Carbonate 1,600 mg 08/17/20 09:00 08/18/20 16:50 Sevelamer 800 Mg Tablet PO 1,600 mg TID PHONG Administration PFSH Acute PFSH: Medical History Avulsion fracture of left ankle Cervical spondylosis Chronic anticoagulation Claudication Closed fracture of right distal fibula COVID-19 DDD (degenerative disc disease), cervical Diabetes Emphysema/COPD Essential hypertension Fibromyalgia Immunocompromised Long-term current use of opiate analgesic Onychodystrophy Osteoporosis Pain, joint, multiple sites Portal vein thrombosis Rheumatoid arthritis Spondylosis of lumbar region without myelopathy or radiculopathy Syncope Tobacco use disorder Surgical History H/O dilation and curettage Hx laparoscopic cholecystectomy Hx of section (~1989) Hx of hysterectomy Family History Mother Stroke Cancer SKIN CANCER Sister Stroke Other Diabetes Myocardial infarct Denies family history of Anesthesia complication Bleeding disorder Social History Smoking and tobacco status: current every day smoker cigarettes Years cigarettes smoked: 40 Quit status (tobacco): considering quitting Second hand smoke exposure: Yes Smoking risk assessment/counseling performed?: Yes Alcohol intake: former Caregiver/support person: Yes Lives independently: Yes Household members: spouse Marital status: Current occupational status: disabled History of recent travel: No Current gender identity: Female Vitals/I&O/Wt Last Vital Signs Temp 97.6 F 08/18/20 12:30 Pulse 87 08/18/20 18:00 Resp 14 08/18/20 18:00 BP 148/79 08/18/20 18:00 Pulse Ox 95 08/18/20 18:00 08/18/20 08/18/20 08/18/20 06:59 14:59 22:59 Intake Total 360 / 1350 419.9 / 419.9 Output Total 1050 / 1265 700 / 700 50 / 750 Balance -690 / 85 -280.1 / -280.1 -50 / -330.1 Weight last 48 hrs Weight 222 lb 8 oz Physical Exam Narrative: EXAM NARRATIVE: She opens her eyes to pain but will not follow commands. She was able to utter a vigorous curse in response to nailbed pressure but she is somnolent and lapses quickly back to sleep. She spoke clearly the curse word and made eye contact. She has spontaneous full eye movements with no gaze preference. Facial movements symmetric in response to brow pressure. Speech was clear. Tongue midline in the mouth. Motor: She withdrew from pain in all 4 extremities. Toes are upgoing bilaterally. Sensory: Intact to tickle and deep pain. Cardiac: S1 and S2 normal without murmur or gallop. Chest was clear. No tremor detectable. HEENT: No icterus Data Micro: Micro: Microbiology 08/17/20 13:31 Blood Culture - Pr eliminary Blood NEGATIVE TO PATRICIA E 08/17/20 13:30 Blood Culture - Pr eliminary Blood NEGATIVE TO PATRICIA E 08/16/20 09:30 Urine Culture - Fi nal Urine,Clean Catch A&P Assessment and plan (1) Acute hepatic failure: This is a very complex 48-year-old woman with intermittent mental status changes over the last year. Some of this may be drug related as she when she is at home she is on sedatives and opioids and other psychotropics. She presented here with chest pain and hypotension and had a low albumin on arrival. She was in acute renal failure and had multiple episodes of some degree of hypotension but not profound. She now has unexplained hepatic necrosis. She is not been on any known medications to cause that. She has severe diffuse ileus which is probably contributing to her hepatic encephalopathy, though the nurses report that she is having profuse diarrhea in response to lactulose. On examination at this time she has no nuchal rigidity. She is uncooperative but is capable of vigorously and clearly saying a curse word in response to pain which implies that she is in a light coma. She does not appear to be having any kind of seizure activity now or in the recent past and all her EEGs of either been normal or shown diffuse slowing consistent with encephalopathy. There are so many factors involved with the Patient that it is difficult to make a diagnosis. Her hepatic failure is thought to be due to hypotension. I would not do anything differently than what you are doing. I reviewed her imaging studies. She has profound diffuse white matter disease which is probably due to a lifetime of smoking and migraine. Her white matter changes are confluent and severe and another consideration would be central amyloid angiopathy, which would explain a gradually progressive and fairly rapidly progressive dementia. That is not the presentation of this patient at this time. It would seem that the patient has some type of dementia based upon the altered mental status that is associated with all of her hospitalizations here. Status: Acute (2) Hepatic encephalopathy: Status: Acute (3) Metabolic encephalopathy: Status: Acute (4) Rheumatoid arthritis: Severe rheumatoid arthritis on chronic immunomodulatory therapy and with markedly elevated rheumatoid factor. Further immune evaluation in progress. Status: Acute Qualifiers: Rheumatoid arthritis location: unspecified site Rheumatoid factor presence: unspecified presence Qualified Code(s): M06.9 - Rheumatoid arthritis, unspecified Coding Level of Care Code Acute Certified Nurses Aide for Chg Fwd Diagnoses Acute hepatic failure K72.00 Hepatic encephalopathy K72.90 Metabolic encephalopathy G93.41 Rheumatoid arthritis M06.9 Rheumatoid arthritis location: unspecified site Rheumatoid factor presence: unspecified presence
[2020-08-18] MEDS: insulin glargine 100 units/1 mL 5 UNIT SUBCUT (21:10)
--- NOTE | 2020-08-18 22:04 | PC.NURSE ---
2030 Dr. Vann stopped by to assess patient. Patient was very lethargic and could not interact with Dr. Vann. Dr. Vann gave verbal orders to titrate down Nitro drip to maintain a systolic pressure lower than 180. Drip was titrated down and turned off 2200 patient holds systolic pressure of 154 continue care
[2020-08-19] VITALS (44 sets, daily range): BP systolic 129–181; BP diastolic 68–119; PULSE 86–106; RESP 8–27; TEMP 36.9–37.2; O2SAT 86–95
[2020-08-19] MEDS: morphine 4 mg/mL SDV 1 mL 1 MG IVP ×2 (02:34→10:32)
[2020-08-19 04:02] LABS: Basophils % 0.1 %; Hematocrit 30.8 % (37.0-47.0); Hemoglobin 10.2 g/dL (11.5-15.3); Lymphocytes # 0.5 10^3/uL (0.8-4.8); Lymphocytes % 3.4 %; Mean Corpuscular HGB Conc 33.1 g/dL (30.0-36.0); Mean Corpuscular Hemoglobin 29.9 pg (28.0-34.0); Mean Corpuscular Volume 90.3 fL (81-99); Mean Platelet Volume 10.4 fL (7.4-10.4); Monocytes # 0.7 10^3/uL (0.2-0.9); Monocytes % 5.5 %; Neutrophils # 12.09 10^3/uL (1.8-7.7); Nucleated Red Blood Cells % 0.1 %; Platelet Count 61 10^3/cmm (130-400); Red Blood Count 3.41 10^6/uL (4.1-5.3); Red Cell Distribution Width 14.8 % (12.1-15.1); White Blood Count 13.4 10^3/uL (4.0-10.0)
[2020-08-19 04:12] LABS: INR 1.73 (0.8-1.2)
[2020-08-19 04:24] LABS: C Reactive Protein 120.8 mg/L (0.0-4.9); Lactate (Lactic Acid level) 1.6 mmol/L (0.5-2.2)
[2020-08-19 04:26] LABS: Vancomycin Trough 14.4 ug/mL (10-15)
[2020-08-19 04:33] LABS: NT Pro B Type Natriuretic Pept 1369 pg/mL (0-125); Procalcitonin 1.45 ng/mL (0-0.5)
[2020-08-19 04:46] LABS: Albumin Level 2.6 g/dL (3.5-5.2); Alkaline Phosphatase 427 IU/L (35-105); Anion Gap 13.4 (5-19); Aspartate Amino Transferase 364 U/L (0-32); Blood Urea Nitrogen 33 mg/dL (6-20); Calcium 8.2 mg/dL (8.5-10.5); Carbon Dioxide 23 mmol/L (22-29); Chloride 103 mmol/L (98-107); Creatine Phosphokinase 33 U/L (26-192); Globulin 2.7 g/dL (1.3-4.6); Glomerular Filtration Rate 47.4 mL/min (90-130); Glucose 153 mg/dL (65-115); Magnesium 1.6 mg/dL (1.7-2.3); Osmolality Calculated 292 mOsm/kg (285-295); Phosphorus 2.8 mg/dL (2.5-4.5); Potassium 3.4 mmol/L (3.5-5.1); Sodium 136 mmol/L (136-145); Total Protein 5.3 g/dL (6.6-8.7); Uric Acid 5.4 mg/dL (2.4-5.7)
[2020-08-19 04:58] LABS: Alanine Aminotransferase 1666 U/L (0-33)
--- NOTE | 2020-08-19 08:01 | P.PN_ITS ---
Subjective Subjective: Interval history: confused, dec MS. not answering appropriately Medications: Reviewed: Yes Medication Review Details: Current Medications Apixaban (Apixaban 5 Mg Tablet) 2.5 mg PO Q12H PHONG Last Admin: 08/17/20 20:18 Dose: 2.5 mg Documented by: Aspirin (Aspirin 81 Mg Ec Tablet) 81 mg PO DAILY@0800 PHONG Atorvastatin Calcium (Atorvastatin 40 Mg Tablet) 80 mg PO DAILY PHONG Bisacodyl (Bisacodyl 10 Mg Supp) [address] ONCE PRN PRN Reason: CONSTIPA Colchicine (Colchicine 0.6 Mg Tablet) 0.6 mg PO DAILY PHONG Last Admin: 08/18/20 10:12 Dose: 0.6 mg Documented by: Dextrose (Dextrose 50% Syringe 50 Ml) 50 ml IVP PRN PRN; Protocol PRN Reason: hypoglycemia protocol Famotidine (Famotidine 20 Mg/2 Ml Inj) 20 mg IVP Q12H PHONG Last Admin: 08/18/20 22:48 Dose: 20 mg Documented by: Glucagon (Glucagon 1 Mg/Ml Inj 1 Ml) 1 mg IM ONCE PRN; Protocol PRN Reason: Adult Acute Hypoglycemia Prot. Dextrose (D5w) 500 mls @ 100 mls/hr IV ONCE PRN; Protocol PRN Reason: Adult Acute Hypoglycemia Prot Linezolid (Zyvox Premix) 600 mg in 300 mls @ 300 mls/hr IV Q12H PHONG; Protocol Last Infusion: 08/19/20 02:32 Dose: Infused Documented by: Cefepime HCl 2,000 mg/ Sodium (Chloride) 50 mls @ 100 mls/hr IV Q24H PHONG; Protocol Last Admin: 08/18/20 11:16 Dose: 100 mls/hr Documented by: Azithromycin 500 mg/ Sodium (Chloride) 250 mls @ 250 mls/hr IV Q24H PHONG; Teresa col Last Admin: 08/18/20 13:58 Dose: 250 mls/hr Documented by: Nitroglycerin/Dextrose (Nitroglycerin Drip) 50 mg in 250 mls @ 0 mls/hr IV .Q0M PHONG; Protocol Last Titration: 08/19/20 01:00 Dose: 16.67 mcg/min, 5 mls/hr Documented by: Insulin Aspart (Insulin Aspart 100 Unit/1 Ml) 0 unit SUBCUT BEDTIME PHONG; Protocol Last Admin: 08/18/20 20:53 Dose: Not Given Documented by: Insulin Aspart (Insulin Aspart 100 Unit/1 Ml) 0 unit SUBCUT TIDWM [facility]; Protocol Last Admin: 08/18/20 18:02 Dose: 2 unit Documented by: Insulin Glargine (Insulin Glargine 100 Units/1 Ml) 5 unit SUBCUT BEDTIME [facility] Last Admin: 08/18/20 21:10 Dose: 5 unit Documented by: Isosorbide Dinitrate (Isosorbide Dinitrate 20 Mg Tablet) 10 mg PO BID [facility] Last Admin: 08/18/20 19:29 Dose: Not Given Documented by: Lactulose (Lactulose Oral Liq 20 Gm/30 Ml Udc) 20 gm PO Q12H [facility] Last Admin: 08/18/20 23:53 Dose: 20 gm Documented by: Methylprednisolone Sodium Succinate (Methylprednisolone Sod Succ 40 Mg/Ml Inj) 40 mg IVP Q12H [facility] Last Admin: 08/19/20 00:05 Dose: 40 mg Documented by: Morphine Sulfate (Morphine 4 Mg/Ml Sdv 1 Ml) 1 mg IVP Q4H PRN PRN Reason: SEVERE PAIN Last Admin: 08/19/20 02:34 Dose: 1 mg Documented by: Nitroglycerin (Nitroglycerin 0.4 Mg Sublingual Tablet) 0.4 mg SUBLINGUAL Q5M PRN PRN Reason: chest pain Ondansetron HCl (Ondansetron 2 Mg/Ml Sdv 2 Ml) 4 mg IVP Q8H PRN PRN Reason: NAUSEA AND VOMITING Last Admin: 08/17/20 14:38 Dose: 4 mg Documented by: Pantoprazole Sodium (Pantoprazole Dr 40 Mg Tablet) 40 mg PO DAILY [facility] Last Admin: 08/18/20 08:30 Dose: 40 mg Documented by: Polyethylene Glycol (Polyethylene Glycol 3350 Pkt 17 Gm) 17 gm PO DAILY [facility] Last Admin: 08/18/20 19:29 Dose: Not Given Documented by: Sevelamer Carbonate (Sevelamer 800 Mg Tablet) 1,600 mg PO TID [facility] Last Admin: 08/18/20 21:09 Dose: 1,600 mg Documented by: Vitals/I&O/Wt Last Vital Signs Temp 98.5 F 08/19/20 02:00 Pulse 91 08/19/20 06:30 Resp 15 08/19/20 06:30 BP 164/105 08/19/20 06:30 Pulse Ox 93 08/19/20 06:30 08/18/20 08/19/20 08/19/20 22:59 06:59 14:59 Intake Total 30.475 / 450.375 330 / 780.375 Output Total 500 / 1200 450 / 1650 Balance -469.525 / -749.625 -120 / -869.625 Physical Exam Narrative: EXAM NARRATIVE: overweight/ obese in bed, NARD, confused, disoriented BP elevated heent- nc/at, eomi, anicteric neck supple lungs dull bases and crackles heart reg, distant, s1, s2, rrr- abd soft, nt, nd, +BS ext no edema neuro- a,confused, disoriented pulses poor Data : 08/19/20 03:50 08/19/20 03:50 Micro: Microbiology 08/17/20 13:31 Blood Culture - Preliminary Blood NEGATIVE TO DATE 08/17/20 13:30 Blood Culture - Preliminary Blood NEGATIVE TO DATE 08/16/20 09:30 Urine Culture - Final Urine,Clean Catch A&P Additional A&P Information 1. echo- 1-Normal left ventricular cavity size. Normal left ventricular systolic function. No regional wall motion abnormalities. Left ventricular ejection fraction is estimated at 60 %. Grade I/IV diastolic dysfunction (abnormal relaxation filling pattern), normal to mildly elevated filling pressures. 2-Moderate pericardial effusion. Pericardial effusion located anteriorly. Pericardial effusion located posteriorly. Echocardiographic findings suggest a non hemodynamically significant pericardial effusion. No right atrial or right ventricular diastolic collapse. 3-Pulmonary artery systolic pressure is within normal limits. 4-Right atrial pressure is around 10 mm of mercury. 5-When compared to the prior echocardiogram dated February, there is moderate pericardial effusion without any significant hemodynamic compromise . 49 yr female IDDM, copd, Rheumatological Arthritis. Pt here w/ CP and pericardial effusion- on abx. was hypotensive. 1. MARY KAY- likely ATN- from hypotension and JADE -hold NSAID -rx rheumatological process - per Dr. Castañeda -urine studies noted -repeat u/a hazy, 1 + prot, 3 + blood, 5-10 wbc and rbc, amorph sed, 15-25 granular casts -low ur na c/w prerenal- however- pt is 4.% liters + and oliguric- now appears to be ATN -no emergent need for HD -met acidosis and renal fxn are improving -vanco held, as level a shigh as 52- now 14, can redose if needed 2. pericardial effusion- hold NSAID as MARY KAY -renal dose colchicine- can cause leukopenia w/ renal failure -Consider tapping per cardiology, medicine -can restart NSAID in am if cr continues to improve 3. DM control 4. inc AGMA improved 5. Leukocytosis -check sed rate and -CRP improved from 180- 120 6. hyponatremia from MARY KAY and pulm process -improving 7. hyperphosphatemia -from MARY KAY -improved, d/c binders 8. ferritin 48847- very high- acute phase reactant 9. inc LFTs- likely shocked liver from poor perfusion- improving 10. htn- ask novasc 5 d 11. AMS- per medicine- check ammonia level -renal will see PRN Attestations Medical Necessity Statement*: AMS, pericardial effusion. improving acute hepatitis and MARY KAY per medicine Time Spent in Patient Care: 16 - 35 minutes Coding Level of Care Code Acute Batch Blender for Ayshag Cortez
[2020-08-19 08:18] LABS: Glucose Point of Care 162 mg/dL (70-110)
[2020-08-19 08:24] LABS: Ammonia 15 umol/L (11-51)
--- NOTE | 2020-08-19 08:59 | PC.CHAP ---
Pastoral Care Encounter/Spiritual Assessment Type of Contact [] Declined dish cloth inspector visit [] Patient/Family/Request visit [] Outpatient visit [] Follow-up visit [] Physician referral [] Code/Alert [x] Routine visit [] Staff referral [] Actively dying [] Patient sleeping [] Family support [] [] Out of room [] Palliative care [] [] Receiving care in room [] Pre-surgical visit [] Trauma [] Long length of stay [x] ICU visit [] Other: Relational/Emotional Strength [] Patient feels connected with others/family/visitors/staff [] Distress [] Loneliness/isolation [] Abandonment Spirituality of Patient [] Person of Yadira [] Attends Mormon of their Yadira [] Believes in Prayer [] Reads Bible or Restorationist materials [] There are Spiritual issues to be addressed Hand Dry Cleaner Interventions [x] Prayer [] Active listening [] Non-anxious presence [] Spiritual/emotional support [] Crisis/trauma care [] Spiritual counseling [] Bereavement support [] Provided bereavement packet [] Provided Bible/devotional materials [] Provided toy/stuffed animal, coloring book to patient or family member [] Provided Communion [] Anointing/[place] [] Salvation [x] Completed spiritual assessment [] Other: Impact on Illness or Injury [] Angry [] Fearful [] Anxious [] Often cries [] Exhaustion [] Unable to work [] Unable to attend pentecostal [] Unable to walk/stand [] Unable to read [] Unable to drive [] Unable to eat/drink [] Unable to sleep [] Unable to be with family [] Patient intubated [] Other: Summary Time spent with patient
[2020-08-19] MEDS: pantoprazole DR 40 mg Tablet PO (09:13)
[2020-08-19] MEDS: atorvastatin 40 mg Tablet 80 MG PO (09:13)
[2020-08-19] MEDS: isosorbide dinitrate 20 mg Tablet 10 MG PO ×2 (09:13→17:22)
[2020-08-19] MEDS: aspirin 81 mg EC Tablet PO (09:13)
[2020-08-19] MEDS: polyethylene glycol 3350 Pkt 17 gm PO (09:14)
[2020-08-19] MEDS: amlodipine 5 mg Tablet PO (09:14)
[2020-08-19 10:05] LABS: LAB Peripheral Smear Sent for Review
[2020-08-19] MEDS: fluconazole 100 mg Tablet 200 MG PO (10:39)
--- NOTE | 2020-08-19 11:22 | PC.NURSE ---
report received at 0830.pt's nitroglycerine drip was at 50 mcg/min (not adjusted in iv titrate log).currently increased to 55 mcg/min for bp control.
[2020-08-19] MEDS: cefepime 2,000 MG in sodium chloride 0.9% (plus) 50 ML 100 MG IV (11:58)
[2020-08-19] MEDS: famotidine 20 mg/2 mL INJ IVP (11:58)
[2020-08-19 12:21] LABS: Glucose Point of Care 163 mg/dL (70-110)
[2020-08-19 12:45] LABS: Gamma Glutamyl Transferase 136 U/L (5-36); Lipase 10 U/L (13-60); Thyroid Stimulating Hormone 0.56 uIU/mL (0.27-4.20); Vitamin B12 1905 pg/mL (232-1245)
[2020-08-19 12:46] LABS: Acetaminophen < 5.0 ug/mL (10-30)
[2020-08-19 12:47] LABS: HIV 1 & 2 Antibody Non-Reactive (Non-Reactiv); HIV 1 & 2 Antigen Non-Reactive (Non-Reactiv)
[2020-08-19 12:52] LABS: Folate Level 6.7 ng/mL (4.8-37.3)
--- NOTE | 2020-08-19 13:10 | MR_ITS ---
WS: [id number] MRI HEAD WITHOUT CONTRAST TECHNIQUE: Sagittal T1, T2 axial, T2 axial FLAIR, axial and coronal T1 images, axial susceptibility w eighted imaging, axial diffusion weighted images, and coronal T2 images were obtained. CLINICAL INFORMATION: ams COMPARISON: CT August 17, 2020, MRI May 29, 2020 FINDINGS: No evidence of restricted diffusion to suggest acute ischemia. Ventricular system and basal cisterns are patent. Moderate small vessel changes. Mild parenchymal volume loss. Normal posterior fossa. Norm al vascular flow voids at the skull base. No extra axial fluid collections. No evidence of mass or ma ss effect. Mild mucosal thickening in the ethmoid air cells. Mild mucosal thickening in the left mast oid air cells. No hemosiderin on susceptibly weighted images. Normal optic chiasm and pituitary infundibulum. Mild symmetric atrophy involving the temporal lobes a nd hippocampal formations. No hemosiderin on the susceptibility weighted images. MR/MR head wo con* [id number] IMPRESSION: 1. No evidence of restricted diffusion to suggest acute ischemia. 2. Moderate small vessel changes with mild parenchymal volume loss. 3. No extra-axial fluid collections. No evidence of mass or mass effect. 4. No hemosiderin on the susceptibly weighted images. 5. Mild mucosal thickening left mastoid air cells.
[2020-08-19 13:37] LABS: Amphetamines Screen Urine Negative (Negative); Barbiturates Screen Urine Negative (Negative); Benzodiazepines Screen Urine Negative (Negative); Cocaine Screen Urine Negative (Negative); Opiate Screen Urine Positive (Negative); PCP Screen Urine Negative (Negative); THC Screen Urine Negative (Negative)
[2020-08-19] MEDS: azithromycin 500 MG in sodium chloride 0.9% 250 ML 250 MG IV (13:47)
[2020-08-19 14:12] LABS: COMPLEMENT COMPONENT C3C 43 mg/dL (83-193); COMPLEMENT COMPONENT C4C 5 mg/dL (15-57); Cyclic Citrullinated Peptide 121 UNITS
[2020-08-19 15:13] LABS: COMPLEMENT, TOTAL (CH50) <13 U/mL (31-60)
--- NOTE | 2020-08-19 15:43 | P.TS_ITS ---
Transfer Summary Providers Date of Admission: 08/14/20 22:33 Date of Discharge: 08/19/20 Attending Provider at Admission: Jerad Loredo Attending Provider at Transfer: Jaydon Lane MD Primary Care Provider: Nel Peacock MD Anticipated Date of Transfer: Anticipated date of transfer: 08/19/20 Receiving Facility & Provider: Receiving Provider: [] Receiving facility: [] Diagnoses at Discharge Discharge Diagnosis (1) Acute hepatic failure: Status: Acute (2) Hepatic encephalopathy: Status: Acute (3) Metabolic encephalopathy: Status: Acute (4) Rheumatoid arthritis: Status: Acute Qualifiers: Rheumatoid arthritis location: unspecified site Rheumatoid factor presence: unspecified presence Qualified Code(s): M06.9 - Rheumatoid arthritis, unspecified Reason for Visit Reason for Visit: Chest pain Hospital Course Hospital Course This is a 49-year-old female with a quite complicated past medical history, she has a history of left-sided CVA in the past with no residual symptoms, history of portal vein thrombosis on Eliquis for the last 5 years, COPD, emphysema, history of fatty liver disease, history of insulin-dependent type 2 diabetes mellitus, history of rheumatoid arthritis on chronic steroids, hydroxychloroquine was on Cosentyx at 1 point which has been discontinued in the last month A bit of patient's back story: -Back in May 2020, patient was admitted to [facility] due to altered mental status at that time she had COVID-19, and she was treated for COVID-19, she remains on 3 L nasal cannula, respiratory beauchamp she did well. 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 She was started on broad-spectrum antibiotic therapy, antiviral therapy, and her mentation significantly improved back to baseline. Normally she is alert oriented x3, can ambulate on her own, is fairly independent individual. She eventually clinically improved, and was discharged on cefepime and oral Valtrex. During that hospitalization unfortunately a lumbar puncture could not be performed as she was on Eliquis, cilostozal , aspirin, as our radiology department required these medications to be held for over 72 hours, and after 72 hours she was significantly better, so decision was made not to pursue LP. However when she went home, she developed continued episodes of confusion, altered mental status so she was readmitted, she eventually had a lumbar puncture, unfortunately the lumbar puncture results were fairly lackluster, protein levels are 106, CSF glucose is 293, cultures have been unremarkable, tick panel negative, RSV negative. However she had a total of 3 EEGs performed, which showed slow brain waveforms likely toxic metabolic encephalopathy, her MRI showed confluent periventricular white matter signal abnormality since 2017, with additional bilateral increased signal in the yana. Neurology was consulted, who felt that likely her symptoms were related to meningeal encephalitis, her treatment regimen was changed to cefepime and IV acyclovir for at least 2 weeks. She followed up with infectious disease as outpatient, clinically improved, back to her baseline, finished antibiotic and antiviral treatment. However, her Lyme titers, Ehrlichia, HSV, HIV, hepatitis panel are negative. Thus at this point he was not exactly clear what had caused her change in her mentation perhaps it was COVID-19 or her narcotic pain medications.Followed up with neurology, felt that a lot of her symptoms might be related to her narcotic medic medications that she gets to the pain clinic so she was eventually weaned down to 15 mg oxycodone twice daily and tramadol 50 three times daily, and baclofen. Patient was doing fine as outpatient, no significant issues. She also followed up with rheumatology, her Cosentyx was stopped in mid June, and she was continued on low-dose prednisone 5 mg daily, with Plaquenil. On August 14, 2020 patient presented to the emergency room due to complaints of chest pain, she had a work-up in the emergency room that did not show any significant EKG changes, no significant troponin elevations, but a CT of the chest did show a large pericardial effusion. Immediately cardiology was consulted and she had a bedside cardiac echocardiogram and was diagnosed with a moderate pericardial effusion with pericarditis. No significant hemodynamic compromise, no tamponade physiology, decision was made not to pursue pe ricardiocentesis. Patient was admitted to the intensive care unit for clinical monitoring, she was started on broad-spectrum antibiotics including vancomycin, cefepime, steroids, colchicine and clinically monitored. Her UA did indicate a UTI. Her chest x-ray did show some left lower lobe infiltrates so it was thought she might also have a pneumonia. On August 15, 2020, patient was clinically doing well, she had no significant hemodynamic compromise, no more episodes of chest pain, remained afebrile, no significant events, remained alert oriented x3, she did develop an MARY KAY, creatinine elevating to 2, nephrology was consulted, there was concerns for a rheumatologic process going and or NSAIDs as a cause, so she had a rheumatologic work-up performed, we monitor her creatinine her urine output. She also had hyponatremia, serum sodium 126. There was also some concerns for a left pleural effusion, however further imaging did not show any significant tappable fluid. She also had hyperglycemia, requiring a brief stay on insulin drip, transitioned to subcu insulin. 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 She also had persistent leukocytosis. However remained afebrile, normotensive during the day, no tachycardia, alert oriented x3, clinically doing well. Given her hypotensive episodes during the night, cardiology nephrology decided to give her fluids, she was roughly 5 L positive before they were stopped. 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 When I came in the morning on August 17, 2020, patient: -Was quite confused, alert to person, not to place, not to time, quite somnolent, she would follow some commands such as squeezing my fingers, but still quite confused and not her normal on 3 L, her ABGs did not show any clinically significant hypoxia or hypercapnia -Her white blood cell count was 21.6, neutrophilic 17.85 -She was in renal failure with a creatinine of 3.1, with minimal urine output -Patient is vancomycin trough was 54 -She was a liver failure, AST 4757, ALT 4157, alk phos 509, T bili 0.8 -I ordered inflammatory markers, her CRP was 186, pro-Christiano was 8.87 -Patient's ferritin surprisingly was over 13,000 -D-dimer was 6.75, she did have a CT angiogram on admission that did not show pulmonary emboli, but she does have chronic lymphadenopathy of the mediastinum and hilar adenopathy, she has had this since at least 2017 - I did speak to our pulmonary service about doing a bronchoscopy, but there was no urgent need currently -She had developed thrombocytopenia platelet count 6.1 -She remained afebrile, no significant episodes of tachycardia, she did have hypotensive episodes overnight -I did discuss with cardiology with the possibility of this being tamponade physiology with her pericardial effusion, however they felt it was unlikely as she did not have tachycardia this is with hypotension no JVD -Nonetheless repeat bedside echocardiogram showed persistent moderate pericardial effusion which was mildly increased in size, decision was made not to perform a pericardiocentesis as there is no tamponade physiology Thus at this point what I was thinking was she has developed worsening sepsis secondary to her UTI pneumonia, acute renal failure secondary to hypotension and sepsis and vancomycin, acute ischemic hepatitis secondary to hypotension, altered mental status secondary to toxic metabolic and cephalopathy and UTI - Thus I stopped her vancomycin and switch her to Zyvox, continued cefepime, added azithromycin -No pressors were required, she actually became hypertensive requiring a nitroglycerin drip to bring down her blood pressures On August 18, 2020 -She remained confused, alert, much more somnolent, without rise to sternal rub, maintaining her airway, on 3 L, did withdraw from pain, did at 1 point awaken and swear for me to go away, she was seen by our neurologist as inpatient, neurology felt that it was likely toxic metabolic encephalopathy related to patient's liver failure -In terms of her liver failure her acetaminophen levels were negative, hepatitis was negative, HIV was negative, CT scan of the abdomen pelvis liver did not have any significant abnormalities, no intra extrahepatic biliary dilatation, ultrasound of the liver did not show any portal vein thrombus -Ceruloplasmin, copper levels pending -Her ferritin was over 13,000, but iron levels were within normal limits -Certainly autoimmune hepatitis was a thought, I increased her Solu-Medrol dose to 40 every 8 hours -Patient is AST was 1453, ALT 08/18/2005, bilirbin 0.6, ammonia levels were 60, INR 2.23 -Thus at this point it was not exactly clear what has caused her liver failure possibly sepsis, possibly ischemic hepatitis -Her CT of the head did not show any acute stroke -In terms of her renal failure, creatinine improved, urine output improved, lactic acid within normal limits nephrology, nephrology is following along -She remained hypertensive requiring a nitro drip, cardiology was following along On August 19, 2020: -Patient this morning again remains confused, is alert, does awaken, but now is moaning in pain, is not exactly clear what she saying, she is in a semicoma state, she does arise when her name is called, but her responses are nonsensical -She is on 3 L, her blood pressures have improved to the normotensive range with nitro drip, which was eventually weaned off, her urine output had significantly improved to reduce overnight and 950 cc -AST improved to 364, ALT 1666, ammonia 15 -Patient's blood cultures remain unremarkable sputum cultures remain unremarkable urine cultures remain unremarkable, remains afebrile -Pro-Christiano and CRP improving 1.45 (8.87), 120 (300's) respectively -White blood cell count 13.4, hemoglobin 10.2, platelet count 61 -This point, patient had been on antibiotic therapy since her admission, expand antibiotic therapy for the last 48 hours remains afebrile, hypertensive, I felt that sepsis is an explanation to her multiorgan failure, and encephalopathy just did not fit, unless we were not covering for antivirals or antifungals -However I felt that there must be something systemic explaining all her symptoms, laboratory findings, and work-up -I discussed the case in detail with our infectious disease and 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 oncologist Based upon patient's symptoms in laboratory and imaging findings we felt that for diagnosis is are certainly possible: -Lupus, unfortunately it takes her hospital 5 days for the test result to come back, but her rheumatoid factor was 263, ESR 54 -CMV certainly another possibility, she did have diarrhea, we have ordered the test it takes weeks for us to get this result back -EBV certainly another possibility, again it takes weeks for us to get these test results back -hsv is pending -However what was more of concern is the possibility of HLH: -Patient fit a lot of the clinical criteria including -Her history of rheumatoid arthritis, on immunologic therapy, immunocompromised -She had hepatomegaly on imaging, splenomegaly -Her ferritin is over 13,000 -Elevated inflammatory markers -She has thrombocytopenia, anemia which are new -She has significant neurologic changes, she is in a semicomatose state, moaning in pain -Triglycerides are pending -She does have a pericardial effusion, pericarditis, although no myocarditis that we suspected -Unfortunately cannot do soluble CD 25 at our hospital, also bone marrow biopsy is difficult to do as inpatient -She also has not had any fever since she has been here -After discussion with respective infectious disease, cardiology, and hematology oncology decision was made that she fits the clinical criteria for HL H, and she would need expedited testing and treatment -I discussed with , at [facility], who accepted the transfer -I have ordered a brain MRI, : No evidence of restricted diffusion to suggest acute ischemia. Ventricular system and basal cisterns are patent. Moderate small vessel changes. Mild parenchymal volume loss. Normal posterior fossa. Normal vascular flow voids at the skull base. No extra axial fluid collections. No evidence of mass or mass effect. Mild mucosal thickening in the ethmoid air cells. Mild mucosal thickening in the left mastoid air cells. No hemosiderin on susceptibly weighted images. Normal optic chiasm and pituitary infundibulum. Mild symmetric atrophy involving the temporal lobes and hippocampal formations. No hemosiderin on the susceptibility weighted images. -I have ordered a lumbar puncture, however she was on Eliquis and aspirin, which have to be held for over 24 hours by our radiology department before they will perform a lumbar puncture, if she remains here till tomorrow due to bad weather, will perform a lumbar puncture tomorrow morning before she leaves -Also EEG has been ordered Physical Exam Const: COMMON NORMALS: alert GENERAL APPEARANCE: ill appearing ORIENTATION/CONSCIOUSNESS: Yes awake, Yes confused and Yes patient obtunded; not oriented to person, not oriented to place and not oriented to time HENMT: COMMON NORMALS: normocephalic HEAD & SCALP: normocephalic Eye: COMMON NORMALS: Equal, round and reactive pupils present PUPIL: Yes Equal, round and reactive pupils present Neck/C-Spine: COMMON NORMALS: full ROM, no lymphadenopathy and no JVD Lymph: LYMPHATIC: no lymphadenopathy noted Chest: COMMONS NORMALS: normal inspection of the chest Resp: COMMON NORMALS: normal respiratory effort, No retractions, No use of accessory muscles and clear to auscultation bilaterally AUSCULTATION: clear to auscultation bilaterally Cardio: COMMON NORMALS: no JVD, regular rate, regular rhythm, S1 normal heart sound present and S2 normal heart sound present RATE: regular rate RHYTHM: regular rhythm HEART SOUNDS: S1 normal heart sound present and S2 normal heart sound present GI: COMMON NORMALS: Normal to inspection, nondistended, normoactive bowel sounds present, Soft to palpation, non-tender and No hepatosplenomegaly present PALPATION: Yes Soft to palpation and Yes No hepatosplenomegaly present : COMMON NORMALS: Yes no CVA tenderness BLADDER/KIDNEY EXAM: Yes no CVA tenderness Back/Pelvis: COMMON NORMALS: no CVA tenderness and thoracic and lumbar spine normal to inspection Extremity: COMMON NORMALS: capillary refill normal and no pedal edema Neuro: SENSORIUM/ORIENTATION: Yes alert, No oriented to person, No oriented to place, No oriented to time, Yes somnolent and Yes fluctuating sensorium MENINGEAL SIGNS: No nuccal rigidity, No Brudzinski's sign present and No Kernig's sign presnet OTHER: Patient does not follow neurologic testing, she does awaken to sternal rub, she does moan and groan, she does open her eyes, see what, alert she does swear at times, but does become somnolent at other times TS Data Data Completed and Pending: Completed Studies During Hospitalization Category Date Time Status CT abdomen pelvis wo con [id number] Rout ine Cat Scan 08/17/20 12:[address] angio chest PE protcl [id number] Stat Cat Scan 08/14/20 19:[address] head wo con* 7 0450 Routine Cat Scan 08/17/20 10:56 Completed CXRP [XR chest 1V portable 12497] S tat Exams 08/15/20 12:10 Completed XR chest 1V marciano ble [id number] Stat Exams 08/14/20 18:10 Completed XR chest 2V* 7104 6 Urgent Exams 08/17/20 06:21 Completed CV echo complete* [id number] Urgent Ultrasound 08/14/20 21:19 Completed CV echo limited 9 3308 Routine Ultrasound 08/17/20 09:17 Completed US abdomen comple te* [id number] Routine Ultrasound 08/17/20 12:18 Completed Pending at discharge Category Date Time Status FL guided lumbarp unc dx* [id number] Rout ine Exams 08/20/20 08:00 Ordered RAZIA Profile Rheum atology Routine Lab 08/16/20 09:02 Results RAZIA Profile Rheum atology Stat Lab 08/19/20 14:19 Received Anti-Neutrophil C ytoplasmic AB Rout ine Lab 08/16/20 08:42 Received Blood Culture Sta t Lab 08/14/20 23:00 Results Blood Culture Sta t Lab 08/17/20 13:31 Results C Reactive Protei n AM LABS Lab 08/20/20 04:00 Ordered CMV IGG&IGM Panel Stat Lab 08/19/20 14:19 Received CYTOMEGALOVIRUS D NA, QN, REAL Stat Lab 08/19/20 14:19 Received Ceruloplasmin Sta t Lab 08/19/20 14:19 Received Comprehensive Met abolic Panel AM LA BS Lab 08/20/20 04:00 Ordered Comprehensive Met abolic Panel AM LA BS Lab 08/21/20 04:00 Ordered Comprehensive Met abolic Panel AM LA BS Lab 08/22/20 04:00 Ordered Copper Level Stat Lab 08/19/20 14:19 Received Creatine Phosphok inase AM LABS Lab 08/20/20 04:00 Ordered DIC Profile Routi ne Lab 08/19/20 11:51 Results EBV IGG & IGM Sta t Lab 08/19/20 11:51 Received EBV Viral Capsid AB IGM Stat Lab 08/19/20 11:51 Received Herpes Simplex Vi humaira DNA Stat Lab 08/19/20 14:19 Received Lactate (Lactic A hermila level) AM LABS Lab 08/20/20 04:00 Ordered Leukemia/Lymphoma Evaluation Routin e Lab 08/19/20 14:19 Received Magnesium AM LABS Lab 08/20/20 04:00 Ordered Magnesium AM LABS Lab 08/21/20 04:00 Ordered Magnesium AM LABS Lab 08/22/20 04:00 Ordered Miscellaneous Maylin t Routine Lab 08/17/20 10:55 Ordered NT Pro B Type Alcira riuretic Pept QAM Lab 08/20/20 06:00 Ordered Phosphorus AM LAB S Lab 08/20/20 04:00 Ordered Phosphorus AM LAB S Lab 08/21/20 04:00 Ordered Phosphorus AM LAB S Lab 08/22/20 04:00 Ordered Procalcitonin AM LABS Lab 08/20/20 04:00 Ordered Prothrombin Time INR AM LABS Lab 08/20/20 04:00 Ordered SARS Covid-2 Anti gen Routine Lab 08/19/20 14:50 Uncollected Sputum Culture an d Gram Stain Stat Lab 08/17/20 12:54 Uncollected Uric Acid AM LABS Lab 08/20/20 04:00 Ordered Urine Culture Sta t Lab 08/17/20 14:30 Results Vancomycin Trough AM LABS Lab 08/20/20 04:00 Ordered Vitamin D 1,25 Di hydroxy Routine Lab 08/16/20 08:43 Received MR head wo con* [id number] Stat MRI 08/19/20 13:10 Ordered Labs from last 24 hours 08/19/20 08/19/20 08/19/20 14:19 14:19 14:19 WBC RBC Hgb Hct MCV MCH MCHC RDW Plt Count MPV Neut % (Auto) Lymph % (Auto) Hays % (Auto) Eos % (Auto) Baso % (Auto) Neut # (Auto) Lymph # (Auto) Hays # (Auto) Eos # (Auto) Baso # (Auto) Nucleated RBC % (a uto) Nucleated RBCs # PT INR APTT Fibrinogen Fibrin Degrad Prod ucts D-Dimer Sodium Potassium Chloride Carbon Dioxide Anion Gap BUN Creatinine GFR Calculation Glucose POC Glucose Calculated Osmolal ity Lactate Uric Acid Calcium Phosphorus Magnesium Total Bilirubin GGT AST ALT Alkaline Phosphata se Ammonia Creatine Kinase C-Reactive Protein NT-Pro-B Natriuret Pep Total Protein Albumin Globulin Ceruloplasmin Lipase Vitamin B12 Folate Procalcitonin TSH Vancomycin Trough Urine Opiates Scre en Acetaminophen Ur Barbiturates Sc reen Ur Phencyclidine S crn Ur Amphetamines Sc reen U Benzodiazepines Scrn Urine Cocaine Scre en U Marijuana (THC) Screen Copper Cycl Citrul Peptid e IgG RAZIA IFA Animal Tis Res Pending ARTHUR-1 Antibody Pending SS-A Antibody Pending SS-B Antibody Pending Sm (Salazar) Antibod y Pending [employer] Antibody Pending Scl-70 Antibody Pending Anti-ds DNA IgG (C rith) Pending Centromere B Antib julian Pending Thyroid Peroxidase Ab Pending Complement C3c Pending Complement C4c Pending CH50 Classical Pat hway Pending Leuk/Lym Spec Type Pending Leuk/Lym Clinical Info Pending Leuk/Lymph Viabili ty Pending Leuk/Lym Sample De scrip Pending Leuk/Lym # of Christopher ers Pending Leuk/Lym Markers Pending Leuk/Lym Gating St rategy Pending Leuk/Lym Interpret ation Pending CMV Culture Source Pending CMV IgG Ab Pending CMV IgM Ab Pending CMV DNA Quant PCR Pending CMV Qnt PCR Interp Pending EBV IgG Ab EBV IgM Ab EBV Capsid Ag IgG, IgM EBV Nuclear Antige n EBV Interpretation Herpes Simplex Gris rce HIV 1&2 Ab & HIV 1 Ag HIV 1&2 Antibody HSV 1 DNA HSV 2 DNA 08/19/20 08/19/20 08/19/20 14:19 14:19 14:19 WBC RBC Hgb Hct MCV MCH MCHC RDW Plt Count MPV Neut % (Auto) Lymph % (Auto) Hays % (Auto) Eos % (Auto) Baso % (Auto) Neut # (Auto) Lymph # (Auto) Hays # (Auto) Eos # (Auto) Baso # (Auto) Nucleated RBC % (a uto) Nucleated RBCs # PT INR APTT Fibrinogen Fibrin Degrad Prod ucts D-Dimer Sodium Potassium Chloride Carbon Dioxide Anion Gap BUN Creatinine GFR Calculation Glucose POC Glucose Calculated Osmolal ity Lactate Uric Acid Calcium Phosphorus Magnesium Total Bilirubin GGT AST ALT Alkaline Phosphata se Ammonia Creatine Kinase C-Reactive Protein NT-Pro-B Natriuret Pep Total Protein Albumin Globulin Ceruloplasmin Pending Lipase Vitamin B12 Folate Procalcitonin TSH Vancomycin Trough Urine Opiates Scre en Acetaminophen Ur Barbiturates Sc reen Ur Phencyclidine S crn Ur Amphetamines Sc reen U Benzodiazepines Scrn Urine Cocaine Scre en U Marijuana (THC) Screen Copper Pending Cycl Citrul Peptid e IgG RAZIA IFA Animal Tis Res ARTHUR-1 Antibody SS-A Antibody SS-B Antibody Sm (Salazar) Antibod y [employer] Antibody Scl-70 Antibody Anti-ds DNA IgG (C rith) Centromere B Antib julian Thyroid Peroxidase Ab Complement C3c Complement C4c CH50 Classical Pat [place]way Leuk/Lym Spec Type Leuk/Lym Clinical Info Leuk/Lymph Viabili ty Leuk/Lym Sample De scrip Leuk/Lym # of Christopher ers Leuk/Lym Markers Leuk/Lym Gating St rategy Leuk/Lym Interpret ation CMV Culture Source CMV IgG Ab CMV IgM Ab CMV DNA Quant PCR CMV Qnt PCR Interp EBV IgG Ab EBV IgM Ab EBV Capsid Ag IgG, IgM EBV Nuclear Antige n EBV Interpretation Herpes Simplex Gris rce Pending HIV 1&2 Ab & HIV 1 Ag HIV 1&2 Antibody HSV 1 DNA Pending HSV 2 DNA Pending 08/19/20 08/19/20 08/19/20 12:08 11:51 11:51 WBC RBC Hgb Hct MCV MCH MCHC RDW Plt Count MPV Neut % (Auto) Lymph % (Auto) Hays % (Auto) Eos % (Auto) Baso % (Auto) Neut # (Auto) Lymph # (Auto) Hays # (Auto) Eos # (Auto) Baso # (Auto) Nucleated RBC % (a uto) Nucleated RBCs # PT INR APTT Fibrinogen Fibrin Degrad Prod ucts D-Dimer Sodium Potassium Chloride Carbon Dioxide Anion Gap BUN Creatinine GFR Calculation Glucose POC Glucose 163 H Calculated Osmolal ity Lactate Uric Acid Calcium Phosphorus Magnesium Total Bilirubin GGT AST ALT Alkaline Phosphata se Ammonia Creatine Kinase C-Reactive Protein NT-Pro-B Natriuret Pep Total Protein Albumin Globulin Ceruloplasmin Lipase Vitamin B12 Folate 6.7 Procalcitonin TSH Vancomycin Trough Urine Opiates Scre en Acetaminophen Ur Barbiturates Sc reen Ur Phencyclidine S crn Ur Amphetamines Sc reen U Benzodiazepines Scrn Urine Cocaine Scre en U Marijuana (THC) Screen Copper Cycl Citrul Peptid e IgG RAZIA IFA Animal Tis Res ARTHUR-1 Antibody SS-A Antibody SS-B Antibody Sm (Salazar) Antibod y [employer] Antibody Scl-70 Antibody Anti-ds DNA IgG (C rith) Centromere B Antib julian Thyroid Peroxidase Ab Complement C3c Complement C4c CH50 Classical Pat [place]way Leuk/Lym Spec Type Leuk/Lym Clinical Info Leuk/Lymph Viabili ty Leuk/Lym Sample De scrip Leuk/Lym # of Christopher ers Leuk/Lym Markers Leuk/Lym Gating St rategy Leuk/Lym Interpret ation CMV Culture Source CMV IgG Ab CMV IgM Ab CMV DNA Quant PCR CMV Qnt PCR Interp EBV IgG Ab EBV IgM Ab EBV Capsid Ag IgG, IgM Pending EBV Nuclear Antige n EBV Interpretation Herpes Simplex Gris rce HIV 1&2 Ab & HIV 1 Ag HIV 1&2 Antibody HSV 1 DNA HSV 2 DNA 08/19/20 08/19/20 08/19/20 11:51 11:51 11:51 WBC RBC Hgb Hct MCV MCH MCHC RDW Plt Count MPV Neut % (Auto) Lymph % (Auto) [place]ays % (Auto) Eos % (Auto) Baso % (Auto) Neut # (Auto) Lymph # (Auto) [place] # (Auto) Eos # (Auto) Baso # (Auto) Nucleated RBC % (a uto) Nucleated RBCs # PT INR APTT Fibrinogen Fibrin Degrad Prod ucts D-Dimer Sodium Potassium Chloride Carbon Dioxide Anion Gap BUN Creatinine GFR Calculation Glucose POC Glucose Calculated Osmolal ity Lactate Uric Acid Calcium Phosphorus Magnesium Total Bilirubin GGT 136 H AST ALT Alkaline Phosphata se Ammonia Creatine Kinase C-Reactive Protein NT-Pro-B Natriuret Pep Total Protein Albumin Globulin Ceruloplasmin Lipase 10 L Vitamin B12 1905 H Folate Procalcitonin TSH 0.56 Vancomycin Trough Urine Opiates Scre en Acetaminophen < 5.0 L Ur Barbiturates Sc reen Ur Phencyclidine S crn Ur Amphetamines Sc reen U Benzodiazepines Scrn Urine Cocaine Scre en U Marijuana (THC) Screen Copper Cycl Citrul Peptid e IgG RAZIA IFA Animal Tis Res ARTHUR-1 Antibody SS-A Antibody SS-B Antibody Sm (Salazar) Antibod y [employer] Antibody Scl-70 Antibody Anti-ds DNA IgG (C rith) Centromere B Antib julian Thyroid Peroxidase Ab Complement C3c Complement C4c CH50 Classical Pat hway Leuk/Lym Spec Type Leuk/Lym Clinical Info Leuk/Lymph Viabili ty Leuk/Lym Sample De scrip Leuk/Lym # of Christopher ers Leuk/Lym Markers Leuk/Lym Gating St rategy Leuk/Lym Interpret ation CMV Culture Source CMV IgG Ab CMV IgM Ab CMV DNA Quant PCR CMV Qnt PCR Interp EBV IgG Ab Pending EBV IgM Ab Pending EBV Capsid Ag IgG, IgM EBV Nuclear Antige n Pending EBV Interpretation Pending Herpes Simplex Gris rce HIV 1&2 Ab & HIV 1 Ag Non-reactive HIV 1&2 Antibody Non-reactive HSV 1 DNA HSV 2 DNA 08/19/20 08/19/20 08/19/20 11:51 11:20 08:15 WBC RBC Hgb Hct MCV MCH MCHC RDW Plt Count MPV Neut % (Auto) Lymph % (Auto) Hays % (Auto) Eos % (Auto) Baso % (Auto) Neut # (Auto) Lymph # (Auto) [place] # (Auto) Eos # (Auto) Baso # (Auto) Nucleated RBC % (a uto) Nucleated RBCs # PT Pending INR Pending APTT Pending Fibrinogen Pending Fibrin Degrad Prod ucts Pos, >=40 H D-Dimer Pending Sodium Potassium Chloride Carbon Dioxide Anion Gap BUN Creatinine GFR Calculation Glucose POC Glucose 162 H Calculated Osmolal ity Lactate Uric Acid Calcium Phosphorus Magnesium Total Bilirubin GGT AST ALT Alkaline Phosphata se Ammonia Creatine Kinase C-Reactive Protein NT-Pro-B Natriuret Pep Total Protein Albumin Globulin Ceruloplasmin Lipase Vitamin B12 Folate Procalcitonin TSH Vancomycin Trough Urine Opiates Scre en Positive H Acetaminophen Ur Barbiturates Sc reen Negative Ur Phencyclidine S crn Negative Ur Amphetamines Sc reen Negative U Benzodiazepines Scrn Negative Urine Cocaine Scre en Negative U Marijuana (THC) Screen Negative Copper Cycl Citrul Peptid e IgG RAZIA IFA Animal Tis Res ARTHUR-1 Antibody SS-A Antibody SS-B Antibody Sm (Salazar) Antibod y [employer] Antibody Scl-70 Antibody Anti-ds DNA IgG (C rith) Centromere B Antib julian Thyroid Peroxidase Ab Complement C3c Complement C4c CH50 Classical Pat hway Leuk/Lym Spec Type Leuk/Lym Clinical Info Leuk/Lymph Viabili ty Leuk/Lym Sample De scrip Leuk/Lym # of Christopher ers Leuk/Lym Markers Leuk/Lym Gating St rategy Leuk/Lym Interpret ation CMV Culture Source CMV IgG Ab CMV IgM Ab CMV DNA Quant PCR CMV Qnt PCR Interp EBV IgG Ab EBV IgM Ab EBV Capsid Ag IgG, IgM EBV Nuclear Antige n EBV Interpretation Herpes Simplex Gris rce HIV 1&2 Ab & HIV 1 Ag HIV 1&2 Antibody HSV 1 DNA HSV 2 DNA 08/19/20 08/19/20 08/19/20 07:56 03:50 03:50 WBC RBC Hgb Hct MCV MCH MCHC RDW Plt Count MPV Neut % (Auto) Lymph % (Auto) Hays % (Auto) Eos % (Auto) Baso % (Auto) Neut # (Auto) Lymph # (Auto) [place] # (Auto) Eos # (Auto) Baso # (Auto) Nucleated RBC % (a uto) Nucleated RBCs # PT INR APTT Fibrinogen Fibrin Degrad Prod ucts D-Dimer Sodium Potassium Chloride Carbon Dioxide Anion Gap BUN Creatinine GFR Calculation Glucose POC Glucose Calculated Osmolal ity Lactate 1.6 Uric Acid Calcium Phosphorus Magnesium Total Bilirubin GGT AST ALT Alkaline Phosphata se Ammonia 15 Creatine Kinase C-Reactive Protein NT-Pro-B Natriuret Pep Total Protein Albumin Globulin Ceruloplasmin Lipase Vitamin B12 Folate Procalcitonin TSH Vancomycin Trough 14.4 Urine Opiates Scre en Acetaminophen Ur Barbiturates Sc reen Ur Phencyclidine S crn Ur Amphetamines Sc reen U Benzodiazepines Scrn Urine Cocaine Scre en U Marijuana (THC) Screen Copper Cycl Citrul Peptid e IgG RAZIA IFA Animal Tis Res ARTHUR-1 Antibody SS-A Antibody SS-B Antibody Sm (Salazar) Antibod y [employer] Antibody Scl-70 Antibody Anti-ds DNA IgG (C rith) Centromere B Antib julian Thyroid Peroxidase Ab Complement C3c Complement C4c CH50 Classical Pat hway Leuk/Lym Spec Type Leuk/Lym Clinical Info Leuk/Lymph Viabili ty Leuk/Lym Sample De scrip Leuk/Lym # of Christopher ers Leuk/Lym Markers Leuk/Lym Gating St rategy Leuk/Lym Interpret ation CMV Culture Source CMV IgG Ab CMV IgM Ab CMV DNA Quant PCR CMV Qnt PCR Interp EBV IgG Ab EBV IgM Ab EBV Capsid Ag IgG, IgM EBV Nuclear Antige n EBV Interpretation Herpes Simplex Gris rce HIV 1&2 Ab & HIV 1 Ag HIV 1&2 Antibody HSV 1 DNA HSV 2 DNA 08/19/20 08/19/20 08/19/20 03:50 03:50 03:50 WBC RBC Hgb Hct MCV MCH MCHC RDW Plt Count MPV Neut % (Auto) Lymph % (Auto) [place] % (Auto) Eos % (Auto) Baso % (Auto) Neut # (Auto) Lymph # (Auto) [place] # (Auto) Eos # (Auto) Baso # (Auto) Nucleated RBC % (a uto) Nucleated RBCs # PT 20.80 H INR 1.73 H APTT Fibrinogen Fibrin Degrad Prod ucts D-Dimer Sodium 136 Potassium 3.4 L Chloride 103 Carbon Dioxide 23 Anion Gap 13.4 BUN 33 H Creatinine 1.2 H GFR Calculation 47.4 L Glucose 153 H POC Glucose Calculated Osmolal ity 292 Lactate Uric Acid 5.4 Calcium 8.2 L Phosphorus 2.8 Magnesium 1.6 L Total Bilirubin 1.0 GGT AST 364 H ALT 1666 H Alkaline Phosphata se 427 H Ammonia Creatine Kinase 33 C-Reactive Protein 120.8 H NT-Pro-B Natriuret Pep 1369 H Total Protein 5.3 L Albumin 2.6 L Globulin 2.7 Ceruloplasmin Lipase Vitamin B12 Folate Procalcitonin 1.45 H TSH Vancomycin Trough Urine Opiates Scre en Acetaminophen Ur Barbiturates Sc reen Ur Phencyclidine S crn Ur Amphetamines Sc reen U Benzodiazepines Scrn Urine Cocaine Scre en U Marijuana (THC) Screen Copper Cycl Citrul Peptid e IgG RAZIA IFA Animal Tis Res ARTHUR-1 Antibody SS-A Antibody SS-B Antibody Sm (Salazar) Antibod y [employer] Antibody Scl-70 Antibody Anti-ds DNA IgG (C rith) Centromere B Antib julian Thyroid Peroxidase Ab Complement C3c Complement C4c CH50 Classical Pat hway Leuk/Lym Spec Type Leuk/Lym Clinical Info Leuk/Lymph Viabili ty Leuk/Lym Sample De scrip Leuk/Lym # of Christopher ers Leuk/Lym Markers Leuk/Lym Gating St rategy Leuk/Lym Interpret ation CMV Culture Source CMV IgG Ab CMV IgM Ab CMV DNA Quant PCR CMV Qnt PCR Interp EBV IgG Ab EBV IgM Ab EBV Capsid Ag IgG, IgM EBV Nuclear Antige n EBV Interpretation Herpes Simplex Gris rce HIV 1&2 Ab & HIV 1 Ag HIV 1&2 Antibody HSV 1 DNA HSV 2 DNA 08/19/20 08/18/20 08/18/20 03:50 19:39 17:15 WBC 13.4 H RBC 3.41 L Hgb 10.2 L Hct 30.8 L MCV 90.3 MCH 29.9 MCHC 33.1 RDW 14.8 Plt Count 61 L MPV 10.4 Neut % (Auto) 90.0 Lymph % (Auto) 3.4 Hays % (Auto) 5.5 Eos % (Auto) 0.0 Baso % (Auto) 0.1 Neut # (Auto) 12.09 H Lymph # (Auto) 0.5 L [place]ays # (Auto) 0.7 Eos # (Auto) 0.0 Baso # (Auto) 0.0 Nucleated RBC % (a uto) 0.1 Nucleated RBCs # 0.0 PT INR APTT Fibrinogen Fibrin Degrad Prod ucts D-Dimer Sodium Potassium Chloride Carbon Dioxide Anion Gap BUN Creatinine GFR Calculation Glucose POC Glucose 139 H 168 H Calculated Osmolal ity Lactate Uric Acid Calcium Phosphorus Magnesium Total Bilirubin GGT AST ALT Alkaline Phosphata se Ammonia Creatine Kinase C-Reactive Protein NT-Pro-B Natriuret Pep Total Protein Albumin Globulin Ceruloplasmin Lipase Vitamin B12 Folate Procalcitonin TSH Vancomycin Trough Urine Opiates Scre en Acetaminophen Ur Barbiturates Sc reen Ur Phencyclidine S crn Ur Amphetamines Sc reen U Benzodiazepines Scrn Urine Cocaine Scre en U Marijuana (THC) Screen Copper Cycl Citrul Peptid e IgG RAZIA IFA Animal Tis Res ARTHUR-1 Antibody SS-A Antibody SS-B Antibody Sm (Salazar) Antibod y [employer] Antibody Scl-70 Antibody Anti-ds DNA IgG (C rith) Centromere B Antib julian Thyroid Peroxidase Ab Complement C3c Complement C4c CH50 Classical Pat [place]way Leuk/Lym Spec Type Leuk/Lym Clinical Info Leuk/Lymph Viabili ty Leuk/Lym Sample De scrip Leuk/Lym # of Christopher ers Leuk/Lym Markers Leuk/Lym Gating St rategy Leuk/Lym Interpret ation CMV Culture Source CMV IgG Ab CMV IgM Ab CMV DNA Quant PCR CMV Qnt PCR Interp EBV IgG Ab EBV IgM Ab EBV Capsid Ag IgG, IgM EBV Nuclear Antige n EBV Interpretation Herpes Simplex Gris rce HIV 1&2 Ab & HIV 1 Ag HIV 1&2 Antibody HSV 1 DNA HSV 2 DNA 08/17/20 08/17/20 03:03 03:03 WBC RBC Hgb Hct MCV MCH MCHC RDW Plt Count MPV Neut % (Auto) Lymph % (Auto) [place] % (Auto) Eos % (Auto) Baso % (Auto) Neut # (Auto) Lymph # (Auto) [place] # (Auto) Eos # (Auto) Baso # (Auto) Nucleated RBC % (a uto) Nucleated RBCs # PT INR APTT Fibrinogen Fibrin Degrad Prod ucts D-Dimer Sodium Potassium Chloride Carbon Dioxide Anion Gap BUN Creatinine GFR Calculation Glucose POC Glucose Calculated Osmolal ity Lactate Uric Acid Calcium Phosphorus Magnesium Total Bilirubin GGT AST ALT Alkaline Phosphata se Ammonia Creatine Kinase C-Reactive Protein NT-Pro-B Natriuret Pep Total Protein Albumin Globulin Ceruloplasmin Lipase Vitamin B12 Folate Procalcitonin TSH Vancomycin Trough Urine Opiates Scre en Acetaminophen Ur Barbiturates Sc reen Ur Phencyclidine S crn Ur Amphetamines Sc reen U Benzodiazepines Scrn Urine Cocaine Scre en U Marijuana (THC) Screen Copper Cycl Citrul Peptid e IgG 121 H RAZIA IFA Animal Tis Res ARTHUR-1 Antibody SS-A Antibody SS-B Antibody Sm (Salazar) Antibod y [employer] Antibody Scl-70 Antibody Anti-ds DNA IgG (C rith) Centromere B Antib julian Thyroid Peroxidase Ab Complement C3c 43 L Complement C4c 5 L CH50 Classical Pat hway <13 L Leuk/Lym Spec Type Leuk/Lym Clinical Info Leuk/Lymph Viabili ty Leuk/Lym Sample De scrip Leuk/Lym # of Christopher ers Leuk/Lym Markers Leuk/Lym Gating St rategy Leuk/Lym Interpret ation CMV Culture Source CMV IgG Ab CMV IgM Ab CMV DNA Quant PCR CMV Qnt PCR Interp EBV IgG Ab EBV IgM Ab EBV Capsid Ag IgG, IgM EBV Nuclear Antige n EBV Interpretation Herpes Simplex Gris rce HIV 1&2 Ab & HIV 1 Ag HIV 1&2 Antibody HSV 1 DNA HSV 2 DNA Vitals: Last Vital Signs Temp 99.0 F 08/19/20 07:15 Pulse 89 08/19/20 15:00 Resp 20 H 08/19/20 15:00 BP 140/73 08/19/20 15:00 Pulse Ox 93 08/19/20 15:00 TS Medications Medications Home Medications apixaban 5 mg tablet 5 mg PO BID 09/04/19 [History Confirmed 08/15/20] insulin glargine 100 unit/mL subcutaneous solution 50 unit SUBCUT DAILY@0800 09/04/19 [History Confirmed 08/15/20] ropinirole 2 mg tablet 2 mg PO BEDTIME 09/04/19 [History Confirmed 08/15/20] rosuvastatin 20 mg tablet 20 mg PO DAILY 09/04/19 [History Confirmed 08/15/20] escitalopram oxalate 20 mg tablet 20 mg PO DAILY 09/05/19 [History Confirmed 08/15/20] omeprazole 40 mg capsule,delayed release 40 mg PO DAILY cap 09/05/19 [History Confirmed 08/15/20] nitroglycerin 0.4 mg sublingual tablet 0.4 mg SUBLINGUAL Q5M PRN 30 Days #25 tab 09/09/19 [Rx Confirmed 08/15/20] isosorbide dinitrate 30 mg tablet 15 mg PO BID 90 Days #90 tab 10/03/19 [Rx Confirmed 08/15/20] Glucagon (HCl) Emergency Kit 1 mg SUBCUT Q20M PRN #0 11/01/19 [History Confirmed 08/15/20] epinephrine [EpiPen 2-Carrington] See Rx Instructions .ROUTE .COMPLEX PRN 11/01/19 [History Confirmed 08/15/20] insulin aspart U-100 [Novolog Flexpen U-100 Insulin] See Rx Instructions .ROUTE .COMPLEX 11/01/19 [History Confirmed 08/15/20] trazodone 50 mg tablet 50 mg PO BEDTIME tab 01/09/20 [History Confirmed 08/15/20] duloxetine 30 mg capsule,delayed release 30 mg PO DAILY 30 Days #30 cap 03/18/20 [Rx Confirmed 08/15/20] albuterol sulfate 2.5 mg INHALATION Q6H PRN 04/01/20 [History Confirmed 08/15/20] hydroxychloroquine 200 mg tablet 200 mg PO BID #60 tab 05/12/20 [Rx Confirmed 08/15/20] Combivent Respimat 1 puff INHALATION Q6H PRN 05/18/20 [History Confirmed 08/15/20] Bevespi Aerosphere 2 puff INHALATION BID 05/28/20 [History Confirmed 08/15/20] amlodipine 5 mg PO DAILY #30 tab 06/04/20 [Rx Confirmed 08/15/20] gabapentin 300 mg PO TID #10 cap 06/04/20 [Rx Confirmed 08/15/20] sulfasalazine 500 mg tablet 0.5 g PO DAILY #30 tab 06/18/20 [Rx Confirmed 08/15/20] ibuprofen 800 mg tablet 800 mg PO BID PRN 30 Days #60 tab 06/26/20 [Rx Confirmed 08/15/20] oxycodone 15 mg tablet 15 mg PO BID PRN 30 Days #60 tab 06/26/20 [Rx Confirmed 08/15/20] tramadol 50 mg tablet 50 mg PO TID PRN #90 tab 06/26/20 [Rx Confirmed 08/15/20] nicotine 14 mg/24 hr daily transdermal patch 1 patch TRANSDERMAL DAILY #28 ea 07/13/20 [Rx Confirmed 08/15/20] doxycycline hyclate 100 mg capsule 100 mg PO BID #28 cap 07/16/20 [Rx Confirmed 08/15/20] silver sulfadiazine 1 % topical cream 1 applic TOPICAL BID #50 g 07/23/20 [Rx Confirmed 08/15/20] cilostazol 50 mg tablet See Rx Instructions .ROUTE .COMPLEX #60 tab 08/10/20 [Rx Confirmed 08/15/20] alprazolam 0.25 mg PO TID PRN 08/15/20 [History Confirmed 08/15/20] aspirin [Aspir-81] 81 mg PO DAILY@0800 08/15/20 [History Confirmed 08/15/20] docusate sodium [DOK] 200 mg PO DAILY 08/15/20 [History Confirmed 08/15/20] prednisone 2.5 mg PO DAILY 08/15/20 [History Confirmed 08/15/20] prednisone 5 mg PO DAILY 08/15/20 [History Confirmed 08/15/20] Active Medications Amlodipine Besylate (Amlodipine 5 Mg Tablet) 5 mg PO DAILY [facility] Last Admin: 08/19/20 09:14 Dose: 5 mg Documented by: Apixaban (Apixaban 5 Mg Tablet) 2.5 mg PO Q12H [facility] Last Admin: 08/17/20 20:18 Dose: 2.5 mg Documented by: Aspirin (Aspirin 81 Mg Ec Tablet) 81 mg PO DAILY@0800 [facility] Last Admin: 08/19/20 09:13 Dose: 81 mg Documented by: Bisacodyl (Bisacodyl 10 Mg Supp) 10 mg NM ONCE PRN PRN Reason: CONSTIPA Colchicine (Colchicine 0.6 Mg Tablet) 0.6 mg PO DAILY [facility] Last Admin: 08/18/20 10:12 Dose: 0.6 mg Documented by: Dextrose (Dextrose 50% Syringe 50 Ml) 50 ml IVP PRN PRN; Protocol PRN Reason: hypoglycemia protocol Famotidine (Famotidine 20 Mg/2 Ml Inj) 20 mg IVP Q12H [facility] Last Admin: 08/19/20 11:58 Dose: 20 mg Documented by: Fluconazole (Fluconazole 100 Mg Tablet) 200 mg PO DAILY [facility] Last Admin: 08/19/20 10:39 Dose: 200 mg Documented by: Glucagon (Glucagon 1 Mg/Ml Inj 1 Ml) 1 mg IM ONCE PRN; Protocol PRN Reason: Adult Acute Hypoglycemia Prot. Hydralazine HCl (Hydralazine 20 Mg/Ml Inj 1 Ml) 10 mg IVP Q4H PRN PRN Reason: FOR SBP>160 or DBP>100 Dextrose (D5w) 500 mls @ 100 mls/hr IV ONCE PRN; Protocol PRN Reason: Adult Acute Hypoglycemia Prot Cefepime HCl 2,000 mg/ Sodium (Chloride) 50 mls @ 100 mls/hr IV Q24H [facility]; Protocol Last Admin: 08/19/20 11:58 Dose: 100 mls/hr Documented by: Azithromycin 500 mg/ Sodium (Chloride) 250 mls @ 250 mls/hr IV Q24H [facility]; Protocol Last Admin: 08/19/20 13:47 Dose: 250 mls/hr Documented by: Linezolid (Zyvox Premix) 600 mg in 300 mls @ 300 mls/hr IV Q12H [facility]; Protocol Insulin Aspart (Insulin Aspart 100 Unit/1 Ml) 0 unit SUBCUT BEDTIME [facility]; Protocol Last Admin: 08/18/20 20:53 Dose: Not Given Documented by: Insulin Aspart (Insulin Aspart 100 Unit/1 Ml) 0 unit SUBCUT TIDWM [facility]; Protocol Last Admin: 08/19/20 12:31 Dose: 2 unit Documented by: Insulin Glargine (Insulin Glargine 100 Units/1 Ml) 5 unit SUBCUT BEDTIME [facility] Last Admin: 08/18/20 21:10 Dose: 5 unit Documented by: Isosorbide Dinitrate (Isosorbide Dinitrate 20 Mg Tablet) 10 mg PO BID [facility] Last Admin: 08/19/20 09:13 Dose: 10 mg Documented by: Lorazepam (Lorazepam 2 Mg/Ml Inj 1 Ml) 0.5 mg IVP NOW PRN PRN Reason: ANXIETY Lorazepam (Lorazepam 2 Mg/Ml Inj 1 Ml) 0.5 mg IVP NOW PRN PRN Reason: ANXIETY Methylprednisolone Sodium Succinate (Methylprednisolone Sod Succ 40 Mg/Ml Inj) 40 mg IVP Q12H [facility] Last Admin: 08/19/20 00:05 Dose: 40 mg Documented by: Morphine Sulfate (Morphine 4 Mg/Ml Sdv 1 Ml) 1 mg IVP Q4H PRN PRN Reason: SEVERE PAIN Last Admin: 08/19/20 10:32 Dose: 1 mg Documented by: Nitroglycerin (Nitroglycerin 0.4 Mg Sublingual Tablet) 0.4 mg SUBLINGUAL Q5M PRN PRN Reason: chest pain Nitroglycerin (Nitroglycerin 1 Gm/Inch Oint Pkt) 1 inch TOPICAL Q24H [facility] Ondansetron HCl (Ondansetron 2 Mg/Ml Sdv 2 Ml) 4 mg IVP Q8H PRN PRN Reason: NAUSEA AND VOMITING Last Admin: 08/17/20 14:38 Dose: 4 mg Documented by: Pantoprazole Sodium (Pantoprazole Dr 40 Mg Tablet) 40 mg PO DAILY [facility] Last Admin: 08/19/20 09:13 Dose: 40 mg Documented by: Polyethylene Glycol (Polyethylene Glycol 3350 Pkt 17 Gm) 17 gm PO DAILY [facility] Last Admin: 08/19/20 09:14 Dose: 17 gm Documented by: Discharge Plan Discharge Patient Disposition: Home Condition: Stable Prescriptions: No Action escitalopram oxalate [Lexapro] 20 mg tablet 20 mg PO DAILY RF: 0 omeprazole 40 mg capsule,delayed release(DR/EC) 40 mg PO DAILY RF: 0 trazodone 50 mg tablet 50 mg PO BEDTIME RF: 0 doxycycline hyclate 100 mg capsule 100 mg PO BID Qty: 28 RF: 0 rosuvastatin [Crestor] 20 mg tablet 20 mg PO DAILY RF: 0 Eliquis 5 mg tablet 5 mg PO BID RF: 0 ropinirole 2 mg tablet 2 mg PO BEDTIME RF: 0 Lantus U-100 Insulin 100 unit/mL solution 50 unit SUBCUT DAILY@0800 RF: 0 duloxetine [Cymbalta] 30 mg capsule,delayed release(DR/EC) 30 mg PO DAILY 30 Days Qty: 30 RF: 5 sulfasalazine 500 mg tablet 0.5 g PO DAILY Qty: 30 RF: 1 oxycodone 15 mg tablet 15 mg PO BID PRN (Reason: pain) 30 Days Qty: 60 RF: 0 ibuprofen 800 mg tablet 800 mg PO BID PRN (Reason: pain) 30 Days Qty: 60 RF: 1 tramadol 50 mg tablet 50 mg PO TID PRN (Reason: pain) Qty: 90 RF: 1 nitroglycerin [Nitrostat] 0.4 mg tablet, sublingual 0.4 mg SUBLINGUAL Q5M PRN (Reason: chest pain) 30 Days Qty: 25 RF: 6 isosorbide dinitrate 30 mg tablet 15 mg PO BID 90 Days Qty: 90 RF: 3 hydroxychloroquine 200 mg tablet 200 mg PO BID Qty: 60 RF: 1 Hold Instructions: Resume on 06/15/20. HOLD UNTIL SEEN BY RHEUMATOLOGY nicotine 14 mg/24 hr patch 24 hour 1 patch transdermal DAILY Qty: 28 RF: 0 silver sulfadiazine [Silvadene] 1 % cream 1 applic topical BID Qty: 50 RF: 0 cilostazol 50 mg tablet See Rx Instructions .ROUTE .COMPLEX Qty: 60 RF: 3 epinephrine [EpiPen 2-Carrington] 0.3 mg/0.3 mL Auto-Injector See Rx Instructions .ROUTE .COMPLEX PRN (Reason: Allergic Reaction) RF: 0 insulin aspart U-100 [Novolog Flexpen U-100 Insulin] 100 unit/mL (3 mL) insulin pen See Rx Instructions .ROUTE .COMPLEX RF: 0 Glucagon (HCl) Emergency Kit 1 mg Recon Soln 1 mg SUBCUT Q20M PRN (Reason: blood sugar) Qty: 0 RF: 0 albuterol sulfate 2.5 mg /3 mL (0.083 %) Solution For Nebulization 2.5 mg INHALATION Q6H PRN (Reason: Shortness Of Breath) RF: 0 Bevespi Aerosphere 9-4.8 mcg HFA aerosol inhaler 2 puff INHALATION BID RF: 0 amlodipine 5 mg Tablet 5 mg PO DAILY Qty: 30 RF: 0 gabapentin 300 mg Capsule 300 mg PO TID Qty: 10 RF: 0 Aspir-81 81 mg Tablet,Delayed Release (Dr/Ec) 81 mg PO DAILY@0800 RF: 0 prednisone 5 mg tablet 5 mg PO DAILY RF: 0 alprazolam 0.25 mg Tablet 0.25 mg PO TID PRN (Reason: Anxiety) RF: 0 prednisone 1 mg tablet 2.5 mg PO DAILY RF: 0 DOK 100 mg capsule 200 mg PO DAILY RF: 0 Combivent Respimat 20-100 mcg/actuation mist 1 puff INHALATION Q6H PRN (Reason: Shortness Of Breath) RF: 0 Transfer Attestations Time Spent in Transfer Care*: critical care time Critical Care Time (min): 50 Status at Transfer: Cognitive status at transfer: cognitively intact , Behavioral status at transfer: cooperative , Quality Metrics Clinical Quality Measures: During this hospital stay, did patient experience: None Coding Level of Care Code Acute Manager Pulmonary for Chikis Toro Diagnoses Acute hepatic failure K72.00 Hepatic encephalopathy K72.90 Metabolic encephalopathy G93.41 Rheumatoid arthritis M06.9 Rheumatoid arthritis location: unspecified site Rheumatoid factor presence: unspecified presence
--- NOTE | 2020-08-19 16:25 | P.CONIM_ITS ---
Providers/Reason For Consult Consulting Physican/Specialty*: Georgia Joseph MD /Infectious Disease Reason for Consult*: Multiorgan failure, possible sepsis Attending Physician: Jaydon Lane MD Primary Care Provider: Nel Peacock MD History of Present Illness History of Present Illness Erin Kelley is a 49 year old female past medical history of rheumatoid arthritis seropositive (RF,CCP+, prev on MTX, Enbrel, Arava, and most recently on HCQ) , on chronic steroids 7.5mg po qd, hydroxychloroquine, COVID 19 pneumonia 05/2020, type 2 diabetes mellitus, portal vein thrombosis, possible h/o seizures, who presented to the ER on 08/14/2020 with c/o anterior chest pain, maximum intensity 9/10, worse with deep breathing and leaning forward. CT chest done demonstrated pericardial effusion, emphysema and left lower lobe pneumonia. Patient was hypotensive in the ED without signs of cardiac tamponade. She was started on treatment empirically for septic shock with iv cefepime, vancomycin and azithromycin. CTA ruled out PE. Ruled out for NSTEMI with a negative troponin series. She was started on colchicine for pericardial effusion on 08/15/20. Her hospital course has been notable for developement of AMRY KAY with cr peaking at 3.1 on 08/17/20. She was on levophed on admission, was able to be titrated off within 8-9 hrs. On 08/16 it appears she had symptomatic improvement. Starting on 08/17 she was noted to be increasingly confused, had multiple episodes of hypotension , developed worsened renal function, cr at 3.1, became oliguric in spite of being net + by 5L, dveloped acute liver dysfucntion with AST/ALT peaking at ~4700. Inflammatory markers elevated with CRP , ferritin 04418, CRP 235, procal 8.8--> 1.45, ammonia 1, LDH 577, platelet 55 (baseline 124-230). 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 She has a past h/o intermittent episodes of staring off and episodic confusion for which she follows with neurology as outpatient and was thought she may have underlying seizures. 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 previously during episodes of self decribed confsion , patient had been alert and oriented. MRI brain is takn today and is pending. Microbiology data: UA: 08/16: 1+ LA, 5-10 WBC, 5-10 RBC, granular casts 08/17: urine cx : yeast spp 08/16: urine cx : negative blood cx on 08/14, 08/17: negative thus far T max 99F during admission WBC trend 18.4-->21.6--> 13.4 Dic panel on 08/19: FDP+, pending fibrinogen , d dimer 6.75 haptoglobin 248 Hb 14--> 13.5--> 11.7--> 10.2 HIV screen netaive acute hepatitis screen negative ASO: < 50 Imaging: CT abd/pelvis; fluid distended large and smal bowel with air fluid levels, likely adynamic ileus. moderate pericardial effusion. diffuse anasarca. Right pleural effusion with atelactasis RLL. Per discussion with radiology today, hepatomegaly and splenomegaly+ US abdomen: hepatomegaly, fatty liver, s/p GB removal, mild splenomegaly head CT 08/17: mild periventricular white matter changes, stable, no acute findings CTa chest: no PE. Left lung base infiltrates, new, stable mediastinal and hilar LAD Review of Systems General: Reports: ROS unobtainable due to mental status Meds/Allergies Home Medications and Allergies Home Medications Medication Instructions Recorded Confirmed Last Taken Type apixaban 5 mg tablet 5 mg PO BID 09/04/19 08/15/20 05/18/20 History insulin glargine 100 unit/mL 50 unit SUBCUT DAILY@0800 09/04/19 08/15/20 08/14/20 History subcutaneous solution ropinirole 2 mg tablet 2 mg PO BEDTIME 09/04/19 08/15/20 05/17/20 History rosuvastatin 20 mg tablet 20 mg PO DAILY 09/04/19 08/15/20 08/14/20 History escitalopram oxalate 20 mg tablet 20 mg PO DAILY 09/05/19 08/15/20 05/18/20 History omeprazole 40 mg capsule,delayed 40 mg PO DAILY cap 09/05/19 08/15/20 08/14/20 History release nitroglycerin 0.4 mg sublingual 0.4 mg SUBLINGUAL Q5M PRN 30 Days 09/09/19 08/15/20 Unknown Rx tablet #25 tab isosorbide dinitrate 30 mg tablet 15 mg PO BID 90 Days #90 tab 10/03/19 08/15/20 08/14/20 Rx Glucagon (HCl) Emergency Kit 1 mg SUBCUT Q20M PRN #0 11/01/19 08/15/20 Unknown History epinephrine [EpiPen 2-Carrington] See Rx Instructions .ROUTE 11/01/19 08/15/20 Unknown History .COMPLEX PRN insulin aspart U-100 [Novolog See Rx Instructions .ROUTE .COMPLEX 11/01/19 08/15/20 08/14/20 History Flexpen U-100 Insulin] trazodone 50 mg tablet 50 mg PO BEDTIME tab 01/09/20 08/15/20 08/13/20 History duloxetine 30 mg capsule,delayed 30 mg PO DAILY 30 Days #30 cap 03/18/20 08/15/20 05/18/20 Rx release albuterol sulfate 2.5 mg INHALATION Q6H PRN 04/01/20 08/15/20 08/14/20 History hydroxychloroquine 200 mg tablet 200 mg PO BID #60 tab 05/12/20 08/15/20 05/18/20 Rx Combivent Respimat 1 puff INHALATION Q6H PRN 05/18/20 08/15/20 08/14/20 History Bevespi Aerosphere 2 puff INHALATION BID 05/28/20 08/15/20 08/14/20 History amlodipine 5 mg PO DAILY #30 tab 06/04/20 08/15/20 08/14/20 Rx gabapentin 300 mg PO TID #10 cap 06/04/20 08/15/20 08/14/20 Rx sulfasalazine 500 mg tablet 0.5 g PO DAILY #30 tab 06/18/20 08/15/20 Unknown Rx ibuprofen 800 mg tablet 800 mg PO BID PRN 30 Days #60 tab 06/26/20 08/15/20 08/14/20 Rx oxycodone 15 mg tablet 15 mg PO BID PRN 30 Days #60 tab 06/26/20 08/15/20 08/14/20 Rx tramadol 50 mg tablet 50 mg PO TID PRN #90 tab 06/26/20 08/15/20 Unknown Rx nicotine 14 mg/24 hr daily 1 patch TRANSDERMAL DAILY #28 ea 07/13/20 08/15/20 08/14/20 Rx transdermal patch doxycycline hyclate 100 mg capsule 100 mg PO BID #28 cap 07/16/20 08/15/20 Unknown Rx silver sulfadiazine 1 % topical 1 applic TOPICAL BID #50 g 07/23/20 08/15/20 08/14/20 Rx cream cilostazol 50 mg tablet See Rx Instructions .ROUTE 08/10/20 08/15/20 Unknown Rx .COMPLEX #60 tab alprazolam 0.25 mg PO TID PRN 08/15/20 08/15/20 Unknown History aspirin [Aspir-81] 81 mg PO DAILY@0800 08/15/20 08/15/20 08/14/20 History docusate sodium [DOK] 200 mg PO DAILY 08/15/20 08/15/20 Unknown History prednisone 2.5 mg PO DAILY 08/15/20 08/15/20 08/14/20 History prednisone 5 mg PO DAILY 08/15/20 08/15/20 08/14/20 History Allergies Allergy/AdvReac Type Severity Reaction Status Date / Time bee venom protein (honey bee) Allergy ALGY-Anaphy Verified 07/30/20 09:20 laxis Current Medications Current Medications Generic Name Dose Route Start Last Admin Trade Name Freq PRN Reason Stop Dose Admin Amlodipine Besylate 5 mg 08/19/20 09:00 08/19/20 09:14 Amlodipine 5 Mg Tablet PO 5 mg DAILY PHONG Administration Apixaban 2.5 mg 08/16/20 09:00 08/17/20 20:18 Apixaban 5 Mg Tablet PO 2.5 mg Q12H PHONG Administration Aspirin 81 mg 08/19/20 08:00 08/19/20 09:13 Aspirin 81 Mg Ec Tablet PO 81 mg DAILY@0800 PHONG Administration Colchicine 0.6 mg 08/15/20 10:45 08/18/20 10:12 Colchicine 0.6 Mg Tablet PO 0.6 mg DAILY PHONG Administration Famotidine 20 mg 08/14/20 23:35 08/19/20 11:58 Famotidine 20 Mg/2 Ml Inj IVP 20 mg Q12H PHONG Administration Fluconazole 200 mg 08/19/20 10:30 08/19/20 10:39 Fluconazole 100 Mg Tablet PO 200 mg DAILY PHONG Administration Cefepime HCl 2,000 mg/ Sodium 50 mls @ 100 mls/hr 08/18/20 11:00 08/19/20 11:58 Chloride IV 100 mls/hr Q24H PHONG Administration Protocol Azithromycin 500 mg/ Sodium 250 mls @ 250 mls/hr 08/17/20 13:00 08/19/20 13:47 Chloride IV 250 mls/hr Q24H PHONG Administration Protocol Insulin Aspart 0 unit 08/17/20 21:00 08/18/20 20:53 Insulin Aspart 100 Unit/1 Ml SUBCUT Not Given BEDTIME PHONG Protocol Insulin Aspart 0 unit 08/18/20 08:00 08/19/20 12:31 Insulin Aspart 100 Unit/1 Ml SUBCUT 2 unit TIDWM PHONG Administration Protocol Insulin Glargine 5 unit 08/17/20 21:00 08/18/20 21:10 Insulin Glargine 100 Units/1 Ml SUBCUT 5 unit BEDTIME PHONG Administration Isosorbide Dinitrate 10 mg 08/16/20 18:00 08/19/20 09:13 Isosorbide Dinitrate 20 Mg Tablet PO 10 mg BID PHONG Administration Methylprednisolone Sodium Succinate 40 mg 08/17/20 13:00 08/19/20 00:05 Methylprednisolone Sod Succ 40 Mg/Ml Inj IVP 40 mg Q12H PHONG Administration Morphine Sulfate 1 mg 08/18/20 15:49 08/19/20 10:32 Morphine 4 Mg/Ml Sdv 1 Ml IVP 1 mg Q4H PRN Administration SEVERE PAIN Ondansetron HCl 4 mg 08/15/20 05:13 08/17/20 14:38 Ondansetron 2 Mg/Ml Sdv 2 Ml IVP 4 mg Q8H PRN Administration NAUSEA AND VOMITING Pantoprazole Sodium 40 mg 08/15/20 09:00 08/19/20 09:[address] 40 Mg Tablet PO 40 mg DAILY PHONG Administration Polyethylene Glycol 17 gm 08/18/20 12:00 08/19/20 09:14 Polyethylene Glycol 3350 Pkt 17 Gm PO 17 gm DAILY PHONG Administration PFSH Acute PFSH: Medical History Avulsion fracture of left ankle Cervical spondylosis Chronic anticoagulation Claudication Closed fracture of right distal fibula COVID-19 DDD (degenerative disc disease), cervical Diabetes Emphysema/COPD Essential hypertension Fibromyalgia Immunocompromised Long-term current use of opiate analgesic Onychodystrophy Osteoporosis Pain, joint, multiple sites Portal vein thrombosis Rheumatoid arthritis Spondylosis of lumbar region without myelopathy or radiculopathy Syncope Tobacco use disorder Surgical History H/O dilation and curettage Hx laparoscopic cholecystectomy Hx of section (~1989) Hx of hysterectomy Family History Mother Stroke Cancer SKIN CANCER Sister Stroke Other Diabetes Myocardial infarct Denies family history of Anesthesia complication Bleeding disorder Social History Smoking and tobacco status: current every day smoker cigarettes Years cigarettes smoked: 40 Quit status (tobacco): considering quitting Second hand smoke exposure: Yes Smoking risk assessment/counseling performed?: Yes Alcohol intake: former Caregiver/support person: Yes Lives independently: Yes Household members: spouse Marital status: Current occupational status: disabled History of recent travel: No Current gender identity: Female Vitals/I&O/Wt Last Vital Signs Temp 99.0 F 08/19/20 07:15 Pulse 89 08/19/20 15:00 Resp 20 H 08/19/20 15:00 BP 140/73 08/19/20 15:00 Pulse Ox 93 08/19/20 15:00 08/19/20 08/19/20 08/19/20 06:59 14:59 22:59 Intake Total 330 / 1080.375 63.325 / 63.325 Output Total 450 / 1650 Balance -120 / -569.625 63.325 / 63.325 Physical Exam Narrative: EXAM NARRATIVE: GEN: Obtunded, moaning, does not open eyes to command, moves all extremities in bed restlessly , however not to command. Left hand noted to be twisted with closed fists, unable to ascetain if these are voluntray movements CVS: S1S2 N RS: CTA B/L Abd: Soft, nt/nd , bs+ SLOT SUPERVISOR: as above Data Labs: Other Labs: Pertinent Labs During Stay 08/14/20 08/14/20 08/14/20 19:17 19:17 19:17 ESR 35 H Haptoglobin Uric Acid Iron TIBC % Saturation Ferritin Creatine Kinase Troponin T Gen 5 n g/L C-Reactive Protein 66.8 H NT-Pro-B Natriuret Pep 1374 H Lipase Vitamin B12 Folate Procalcitonin TSH Vancomycin Trough Random Vancomycin Acetaminophen 08/14/20 08/15/20 08/15/20 19:17 05:30 13:54 ESR Haptoglobin Uric Acid Iron TIBC % Saturation Ferritin Creatine Kinase Troponin T Gen 5 n g/L 21 H C-Reactive Protein NT-Pro-B Natriuret Pep Lipase Vitamin B12 Folate Procalcitonin 0.10 TSH 2.49 Vancomycin Trough Random Vancomycin Acetaminophen 08/16/20 08/16/20 08/16/20 05:53 05:53 05:53 ESR 38 H Cancelled Haptoglobin Uric Acid Iron TIBC % Saturation Ferritin Creatine Kinase Troponin T Gen 5 n g/L C-Reactive Protein 235.1 H NT-Pro-B Natriuret Pep Lipase Vitamin B12 Folate Procalcitonin TSH Vancomycin Trough Random Vancomycin Acetaminophen 08/16/20 08/16/20 08/16/20 05:53 12:10 12:10 ESR Haptoglobin Uric Acid Iron TIBC % Saturation Ferritin Creatine Kinase 189 Troponin T Gen 5 n g/L C-Reactive Protein NT-Pro-B Natriuret Pep Lipase Vitamin B12 Folate Procalcitonin TSH Vancomycin Trough Random Vancomycin Cancelled 52.4 H* Acetaminophen 08/17/20 08/17/20 08/17/20 03:03 03:03 11:16 ESR 52 H Haptoglobin Uric Acid Iron 90 TIBC 153 % Saturation 58.8 H Ferritin 92053 H Creatine Kinase Troponin T Gen 5 n g/L C-Reactive Protein 186.0 H NT-Pro-B Natriuret Pep Lipase Vitamin B12 Folate Procalcitonin 8.87 H TSH Vancomycin Trough Random Vancomycin Acetaminophen 08/17/20 08/17/20 08/17/20 11:16 11:16 11:39 ESR Cancelled Haptoglobin Uric Acid 9.1 H Iron TIBC % Saturation Ferritin Creatine Kinase 56 Troponin T Gen 5 n g/L C-Reactive Protein NT-Pro-B Natriuret Pep Lipase Vitamin B12 Folate Procalcitonin TSH Vancomycin Trough Random Vancomycin Acetaminophen 08/18/20 08/18/20 08/18/20 03:33 03:33 10:40 ESR Haptoglobin Uric Acid 9.1 H Iron TIBC % Saturation Ferritin Creatine Kinase 33 Troponin T Gen 5 n g/L 12 H C-Reactive Protein 208.9 H NT-Pro-B Natriuret Pep 1176 H Lipase Vitamin B12 Folate Procalcitonin 4.32 H TSH Vancomycin Trough 31.5 H* Random Vancomycin Acetaminophen 08/18/20 08/19/20 08/19/20 10:40 03:50 03:50 ESR Haptoglobin 248.0 H Uric Acid 5.4 Iron TIBC % Saturation Ferritin Creatine Kinase 33 Troponin T Gen 5 n g/L C-Reactive Protein 120.8 H NT-Pro-B Natriuret Pep 1369 H Lipase Vitamin B12 Folate Procalcitonin 1.45 H TSH Vancomycin Trough Random Vancomycin Acetaminophen 08/19/20 08/19/20 08/19/20 03:50 11:51 11:51 ESR Haptoglobin Uric Acid Iron TIBC % Saturation Ferritin Creatine Kinase Troponin T Gen 5 n g/L C-Reactive Protein NT-Pro-B Natriuret Pep Lipase 10 L Vitamin B12 1905 H Folate 6.7 Procalcitonin TSH 0.56 Vancomycin Trough 14.4 Random Vancomycin Acetaminophen < 5.0 L Micro: Micro: Microbiology 08/17/20 14:30 Urine Culture - Pr eliminary Urine Catheterize d Yeast species 08/17/20 13:31 Blood Culture - Pr eliminary Blood NEGATIVE TO PATRICIA E 08/17/20 13:30 Blood Culture - Pr eliminary Blood NEGATIVE TO PATRICIA E Microbiology 08/17/20 14:30 Urine Catheterized Urine Culture - Preliminary Yeast species 08/17/20 13:31 Blood Blood Culture - Preliminary NEGATIVE TO DATE 08/17/20 13:30 Blood Blood Culture - Preliminary NEGATIVE TO DATE 08/16/20 09:30 Urine,Clean Catch Urine Culture - Final 08/14/20 23:00 Blood Blood Culture - Preliminary NEGATIVE TO DATE 08/14/20 23:08 Blood Blood Culture - Preliminary NEGATIVE TO DATE Other Data: Attestation for Other Data: I personally reviewed and interpreted the following: Other data: Ct head, CT abdomen/pelvis, CTA chest A&P Assessment and plan (1) Acute renal failure: Status: Acute (2) Transaminitis: Status: Acute (3) Encephalopathy acute: Status: Acute (4) Pericardial effusion: Status: Acute (5) Hypotension: Status: Acute (6) Hyponatremia: Status: Acute (7) Rheumatoid arthritis: Status: Acute Qualifiers: Rheumatoid arthritis location: unspecified site Rheumatoid factor presence: unspecified presence Qualified Code(s): M06.9 - Rheumatoid arthritis, unspecified Additional A&P Information 49F with PMH as noted above, significantly RA previosuly on Secukinumab, currently on low dose prednisone and HCQ admitted since 2.5 after p/w chest pain, found to be hypotensive, with new pericardial effusion, pleural effusion, hospital course notable for oliguric acute renal failure, acute transminitis, progressive mental status changes from baseline mentation to confusion, obtundation without any overt changes on CT head. MR pending. Other notable lab abnormalities [place] [address], crp >250, thrombocytopenia, anemia ( Hb 14 -->10), evidence of serositis and diarrhea. Infectious w/up thus far with negative blood and urine cx, leukocytosis trending down, afebrile during admission. CT chest without gross consolidation, CT abdomen without overt collections, no hydronephrosis. On empriic rx with cefepime, vanc and azithormycin since admisison without improvement. HIV serology negativ e Differentials to consider apart from bacterial causes with multisystem involvement such as this with h/o steroids and biological use (unknown when last taken) include disseminated CMV, HSV infections. Check CMV PCR, HSV serology. Less likely to be TB given acute onset though would be worthwhile to check pericardial fluid for AFB cultures. Chronic meningitis such as cryptptococcal, toxoplamosis may explain mental status changes, however less likely o be the cause of hypotension, renal and liver imapirment. Recommend LP, serum cryptococcal ag. Consideration also for HLH given cytopenia involving 2 cell lines, elevated ferritin, liver and hepatic dysfucntion, splenomegaly, serositis, + FDP, mental status changes, h/o rheumatoid arthritis. Recommend bone marrow/tissue biopsy to look for hemophagocytosis. This may need transfer to higher level of care Coding Level of Care Code Acute Classroom Teacher for Chg Fwd Diagnoses Acute renal failure N17.9 Transaminitis R74.01 Encephalopathy acute G93.40 Pericardial effusion I31.3 Hypotension I95.9 Hyponatremia E87.1 Rheumatoid arthritis M06.9 Rheumatoid arthritis location: unspecified site Rheumatoid factor presence: unspecified presence
[2020-08-19 17:08] LABS: Glucose Point of Care 127 mg/dL (70-110)
[2020-08-19] MEDS: nitroglycerin 1 gm/inch oint Pkt 1 INCH TOPICAL (17:22)
[2020-08-19 17:27] LABS: Triglycerides 125 mg/dL (0-150)
[2020-08-19] MEDS: hyDRALAzine 20 mg/mL INJ 1 mL 10 MG IVP (17:29)
--- NOTE | 2020-08-19 17:32 | PC.NURSE ---
transported to [facility] via [facility] transport at 1515.ativan given iv push at 1540 for agitation.pt held fairly still for procedure after ativan given.unable to scan ativan prior to administration since was off site.wasted remainder ativan in pixus once returned from [facility].pt tolerated transfer and procedure well.
[2020-08-19 18:36] LABS: INR 1.55 (0.8-1.2); Partial Thromboplastin Time 28.7 SECONDS (23.9-36.7)
[2020-08-19 18:37] LABS: Fibrinogen 489 mg/dL (174-498)
[2020-08-19 18:53] LABS: D Dimer >= 20.00 ug/mIFEU (0-0.59)
--- NOTE | 2020-08-19 19:14 | PC.NURSE ---
report phoned to jamar gonzalez at [facility] in [place].awaiting transport by em[facility].
--- NOTE | 2020-08-19 19:32 | PM.PN ---
Subjective Subjective: Interval history: Patient remains confused but stable vital beauchamp. Pressure stays fine with the nitro drip. Patient is being transferred to [facility] Medications: Reviewed: Yes Medication Review Details: Current Medications Apixaban (Apixaban 5 Mg Tablet) 2.5 mg PO Q12H PHONG Last Admin: 08/17/20 20:18 Dose: 2.5 mg Documented by: Aspirin (Aspirin 81 Mg Ec Tablet) 81 mg PO DAILY@0800 PHONG Atorvastatin Calcium (Atorvastatin 40 Mg Tablet) 80 mg PO DAILY PHONG Bisacodyl (Bisacodyl 10 Mg Supp) 10 mg KS ONCE PRN PRN Reason: CONSTIPA Colchicine (Colchicine 0.6 Mg Tablet) 0.6 mg PO DAILY PHONG Last Admin: 08/18/20 10:12 Dose: 0.6 mg Documented by: Dextrose (Dextrose 50% Syringe 50 Ml) 50 ml IVP PRN PRN; Protocol PRN Reason: hypoglycemia protocol Famotidine (Famotidine 20 Mg/2 Ml Inj) 20 mg IVP Q12H PHONG Last Admin: 08/18/20 22:48 Dose: 20 mg Documented by: Glucagon (Glucagon 1 Mg/Ml Inj 1 Ml) 1 mg IM ONCE PRN; Protocol PRN Reason: Adult Acute Hypoglycemia Prot. Dextrose (D5w) 500 mls @ 100 mls/hr IV ONCE PRN; Protocol PRN Reason: Adult Acute Hypoglycemia Prot Linezolid (Zyvox Premix) 600 mg in 300 mls @ 300 mls/hr IV Q12H PHONG; Protocol Last Infusion: 08/19/20 02:32 Dose: Infused Documented by: Cefepime HCl 2,000 mg/ Sodium (Chloride) 50 mls @ 100 mls/hr IV Q24H PHONG; Protocol Last Admin: 08/18/20 11:16 Dose: 100 mls/hr Documented by: Azithromycin 500 mg/ Sodium (Chloride) 250 mls @ 250 mls/hr IV Q24H PHONG; Protocol Last Admin: 08/18/20 13:58 Dose: 250 mls/hr Documented by: Nitroglycerin/Dextrose (Nitroglycerin Drip) 50 mg in 250 mls @ 0 mls/hr IV .Q0M PHONG; Protocol Last Titration: 08/19/20 01:00 Dose: 16.67 mcg/min, 5 mls/hr Documented by: Insulin Aspart (Insulin Aspart 100 Unit/1 Ml) 0 unit SUBCUT BEDTIME [facility]; Protocol Last Admin: 08/18/20 20:53 Dose: Not Given Documented by: Insulin Aspart (Insulin Aspart 100 Unit/1 Ml) 0 unit SUBCUT TIDWM [facility]; Protocol Last Admin: 08/18/20 18:02 Dose: 2 unit Documented by: Insulin Glargine (Insulin Glargine 100 Units/1 Ml) 5 unit SUBCUT BEDTIME [facility] Last Admin: 08/18/20 21:10 Dose: 5 unit Documented by: Isosorbide Dinitrate (Isosorbide Dinitrate 20 Mg Tablet) 10 mg PO BID [facility] Last Admin: 08/18/20 19:29 Dose: Not Given Documented by: Lactulose (Lactulose Oral Liq 20 Gm/30 Ml Udc) 20 gm PO Q12H [facility] Last Admin: 08/18/20 23:53 Dose: 20 gm Documented by: Methylprednisolone Sodium Succinate (Methylprednisolone Sod Succ 40 Mg/Ml Inj) 40 mg IVP Q12H [facility] Last Admin: 08/19/20 00:05 Dose: 40 mg Documented by: Morphine Sulfate (Morphine 4 Mg/Ml Sdv 1 Ml) 1 mg IVP Q4H PRN PRN Reason: SEVERE PAIN Last Admin: 08/19/20 02:34 Dose: 1 mg Documented by: Nitroglycerin (Nitroglycerin 0.4 Mg Sublingual Tablet) 0.4 mg SUBLINGUAL Q5M PRN PRN Reason: chest pain Ondansetron HCl (Ondansetron 2 Mg/Ml Sdv 2 Ml) 4 mg IVP Q8H PRN PRN Reason: NAUSEA AND VOMITING Last Admin: 08/17/20 14:38 Dose: 4 mg Documented by: Pantoprazole Sodium (Pantoprazole Dr 40 Mg Tablet) 40 mg PO DAILY [facility] Last Admin: 08/18/20 08:30 Dose: 40 mg Documented by: Polyethylene Glycol (Polyethylene Glycol 3350 Pkt 17 Gm) 17 gm PO DAILY [facility] Last Admin: 08/18/20 19:29 Dose: Not Given Documented by: Sevelamer Carbonate (Sevelamer 800 Mg Tablet) 1,600 mg PO TID [facility] Last Admin: 08/18/20 21:09 Dose: 1,600 mg Documented by: Vitals/I&O/Wt Last Vital Signs Temp 99.0 F 08/19/20 07:15 Pulse 95 08/19/20 18:00 Resp 23 H 08/19/20 18:00 BP 154/68 08/19/20 18:00 Pulse Ox 86 L 08/19/20 18:00 08/19/20 08/19/20 08/19/20 06:59 14:59 22:59 Intake Total 330 / 1080.375 113.325 / 113.325 250 / 363.325 Output Total 450 / 1650 525 / 525 Balance -120 / -569.625 113.325 / 113.325 -275 / -161.675 Physical Exam Narrative: EXAM NARRATIVE: GENERAL: Patient opens her eyes later but moans NECK: No jugular vein distension. HEENT: No cyanosis. No icterus. No pallor. HEART: Regular S1 and S2. No murmur, rub or gallop. LUNGS: Clear to auscultate bilaterally. ABDOMEN: Not distended and nontender . Sluggish bowel sounds. No guarding, rebound or tenderness. CENTRAL NERVOUS SYSTEM: Grossly nonfocal. Data : 08/19/20 03:50 08/19/20 03:50 Micro: Microbiology 08/17/20 14:30 Urine Culture - Preliminary Urine Catheterized Yeast species 08/17/20 13:31 Blood Culture - Preliminary Blood NEGATIVE TO DATE 08/17/20 13:30 Blood Culture - Preliminary Blood NEGATIVE TO DATE A&P Assessment and plan (1) Chest pain: Cannot assess chest pain today however she denied in the past Status: Acute Qualifiers: Chest pain type: chest pain on breathing Qualified Code(s): R07.1 - Chest pain on breathing (2) Pericardial effusion: Moderate pericardial effusion vitals remained stable no tamponade physiology Status: Inactive (3) Pneumonia: As per medicine Status: Acute Qualifiers: Pneumonia type: due to unspecified organism Laterality: unspecified laterality Lung location: unspecified part of lung Qualified Code(s): J18.9 - Pneumonia, unspecified organism (4) Septic shock: Improved and resolved. Infectious hypertensive Status: Acute (5) Essential hypertension: Switch patient to IV Lopressor 5 mg q. 8 and IV hydralazine 10 mg every 6 as needed for systolic blood pressure more than 160 Status: Acute (6) Acute renal failure: Started improving. Nephrology on board Status: Acute (7) Metabolic encephalopathy: Most likely cause of her disorientation metabolic versus narcotics questionable withdrawal Status: Acute Attestations Medical Necessity Statement*: As per medicine Coding Level of Care Code Established Pt Acute Senior Quantity Surveyor for Chg Fwd Patient Type Established History Detailed Exam Detailed Medical Decision Making Moderate Complexity Diagnoses Chest pain R07.1 Chest pain type: chest pain on breathing Pericardial effusion I31.3 Pneumonia J18.9 Pneumonia type: due to unspecified organism Laterality: unspecified laterality Lung location: unspecified part of lung Septic shock A41.9; R65.21 Essential hypertension I10 Acute renal failure N17.9 Metabolic encephalopathy G93.41
--- NOTE | 2020-08-19 21:10 | PC.NURSE ---
Patient left by EMS at 2004 to be transferred to [facility]
[2020-08-20 11:08] LABS: Cytomegalovirus Antibody (IGM) <30.00 AU/mL
[2020-08-20 11:08] LABS: EBV IGM TEST <36.00 U/mL; EBV Nuclear AG <18.00 U/mL
[2020-08-20 13:13] LABS: Ceruloplasmin 29 mg/dL (18-53)
[2020-08-20 14:43] LABS: ANA SCREEN, IFA NEGATIVE (NEGATIVE); CENTROMERE B ANTIBODY <1.0 NEG AI (<1.0 NEG); JO-1 ANTIBODY <1.0 NEG AI (<1.0 NEG); RNP ANTIBODY <1.0 NEG AI (<1.0 NEG); SCL-70 ANTIBODY <1.0 NEG AI (<1.0 NEG); SJOGREN'S ANTIBODY (SS-A) <1.0 NEG AI (<1.0 NEG); SM ANTIBODY <1.0 NEG AI (<1.0 NEG); SS-B <1.0 NEG AI (<1.0 NEG)
[2020-08-20 15:13] LABS: THYROID PEROXIDASE ANTIBODIES <1 IU/mL (<9)
[2020-08-21 11:42] LABS: COMPLEMENT COMPONENT C3C 56 mg/dL (83-193); COMPLEMENT COMPONENT C4C 12 mg/dL (15-57)
[2020-08-21 14:47] LABS: COMPLEMENT, TOTAL (CH50) 49 U/mL (31-60)
[2020-08-21 21:33] LABS: CMV DNA By PCR <200 IU/mL; CMV DNA, QN PCR <2.30 Log IU/mL; HSV 1 DNA NOT DETECTED; HSV 2 DNA NOT DETECTED; HSV Source SERUM; SOURCE BLOOD
[2020-08-22 01:27] LABS: DNA AB (DS) CRITHIDIA,IFA NEGATIVE (NEGATIVE)
[2020-08-22 17:53] LABS: Copper Level 61 mcg/dL (70-175)
[2020-08-23 09:39] LABS: Vit D 1,25 (Oh)2, Total 36 pg/mL (18-72); Vit D2 1,25 (Oh)2 16 pg/mL; Vit D3 1,25 (Oh)2 20 pg/mL
[2020-08-23 14:09] LABS: ANCA Interp Negative (Negative)
[2020-08-24 13:27] LABS: CENTROMERE B ANTIBODY <1.0 NEG AI (<1.0 NEG); JO-1 ANTIBODY <1.0 NEG AI (<1.0 NEG); RNP ANTIBODY <1.0 NEG AI (<1.0 NEG); SCL-70 ANTIBODY <1.0 NEG AI (<1.0 NEG); SJOGREN'S ANTIBODY (SS-A) <1.0 NEG AI (<1.0 NEG); SM ANTIBODY <1.0 NEG AI (<1.0 NEG); SS-B <1.0 NEG AI (<1.0 NEG)
[2020-08-24 14:33] LABS: THYROID PEROXIDASE ANTIBODIES <1 IU/mL (<9)
[2020-08-24 16:32] LABS: ANA SCREEN, IFA NEGATIVE (NEGATIVE)
[2020-08-26 00:08] LABS: DNA AB (DS) CRITHIDIA,IFA NEGATIVE (NEGATIVE)
== END 2020-08-19 20:05 | disposition short-term general hospital (02) | DRG 871 ==
LOC: ER 18:28 → MEDSURG 23:23 → ICU 08-15 09:15
PROVIDERS: Internal Medicine; Internal Medicine Cardiovascular Disease; Internal Medicine Nephrology; Nurse Practitioner Family; Admitting Provider Internal Medicine; Emergency Provider Family Medicine; PCP Internal Medicine; Visit Provider Family Medicine
DX: A41.9 Sepsis, unspecified organism (principal); R65.21 Severe sepsis with septic shock; J18.9 Pneumonia, unspecified organism; N17.0 Acute kidney failure with tubular necrosis; G92 Toxic encephalopathy; K72.00 Acute and subacute hepatic failure without coma; I31.9 Disease of pericardium, unspecified; E87.1 Hypo-osmolality and hyponatremia; E87.2 Acidosis; D76.1 Hemophagocytic lymphohistiocytosis; K56.0 Paralytic ileus; N39.0 Urinary tract infection, site not specified; J90 Pleural effusion, not elsewhere classified; E11.65 Type 2 diabetes mellitus with hyperglycemia; M05.9 Rheumatoid arthritis with rheumatoid factor, unspecified; J43.2 Centrilobular emphysema; I95.9 Hypotension, unspecified; M50.30 Other cervical disc degeneration, unspecified cervical region; Z79.01 Long term (current) use of anticoagulants; M79.7 Fibromyalgia; Z79.891 Long term (current) use of opiate analgesic; M81.0 Age-related osteoporosis without current pathological fracture; M47.896 Other spondylosis, lumbar region; F17.210 Nicotine dependence, cigarettes, uncomplicated; Z86.718 Personal history of other venous thrombosis and embolism; Z79.52 Long term (current) use of systemic steroids; E87.5 Hyperkalemia; Z99.81 Dependence on supplemental oxygen; D69.6 Thrombocytopenia, unspecified; D64.9 Anemia, unspecified; Z79.4 Long term (current) use of insulin; Z79.82 Long term (current) use of aspirin; Z86.73 Personal history of transient ischemic attack (TIA), and cerebral infarction without residual deficits; K76.0 Fatty (change of) liver, not elsewhere classified; R16.2 Hepatomegaly with splenomegaly, not elsewhere classified; N14.1 Nephropathy induced by other drugs, medicaments and biological substances; T36.8X5A Adverse effect of other systemic antibiotics, initial encounter; T50.8X5A Adverse effect of diagnostic agents, initial encounter; Z86.16 Personal history of COVID-19; R59.0 Localized enlarged lymph nodes
CPT/HCPCS: 12345; 36415; 36416; 36592; 36600; 70450; 70551; 71045; 71046; 71275; 74176; 76700; 80048; 80051; 80053; 80202; 80306; 80307; 80500; 81001; 82140; 82330; 82390; 82436; 82525; 82550; 82607; 82652; 82728; 82746; 82805; 82962; 82977; 83010; 83516; 83540; 83550; 83605; 83615; 83690; 83735; 83880; 84100; 84132; 84133; 84145; 84300; 84443; 84478; 84484; 84550; 85025; 85362; 85378; 85384; 85610; 85651; 85730; 86060; 86140; 86141; 86160; 86162; 86235; 86255; 86376; 86431; 86664; 86665; 86704; 86706; 86803; 87040; 87086; 87106; 87340; 87496; 87530; 87806; 88184; 88185; 93005; 93306; 93308; 96372; 99282; J0360; J0456; J0610; J0692; J1815 ×2; J1885; J2020; J2270; J2405; J2543; J2920; J3370; J3490; J7030; J7040; J7050; J7512; Q3014; Q9967

== ENCOUNTER → 2020-09-08 12:57 | Outpatient (BNVA) | payer MEDICAID, SELFPAY | PROVIDERS: PCP Internal Medicine; Visit Provider Nurse Practitioner | DX: M54.41 Lumbago with sciatica, right side (principal); M54.42 Lumbago with sciatica, left side; M50.30 Other cervical disc degeneration, unspecified cervical region; M47.812 Spondylosis without myelopathy or radiculopathy, cervical region; M25.50 Pain in unspecified joint; G47.00 Insomnia, unspecified; F17.210 Nicotine dependence, cigarettes, uncomplicated; Z79.891 Long term (current) use of opiate analgesic; Z71.6 Tobacco abuse counseling | CPT/HCPCS: 99214 ==

== ENCOUNTER 2020-09-09 10:54 | Outpatient (CLI) | payer MEDICAID, SELFPAY ==
--- NOTE | 2020-09-09 11:03 | MM_ITS ---
WS: [id number] BILATERAL SCREENING DIGITAL MAMMOGRAM WITH CAD HISTORY: SCREENING COMPARISON: 05/01/2019 and 02/03/2016 Bilateral CC and MLO views submitted. Computer aided detection analyzed. Breast composition: There are scattered areas of fibroglandular density. No suspicious masses, microc alcifications or architectural distortion. Upper outer quadrant asymmetry is stable over multiple yea rs. Benign calcifications in each breast. MM/[place] [id number] IMPRESSION: BI-RADS: 2-Benign FOLLOW UP: 1 Year Follow-up
== END 2020-09-09 10:55 | disposition home or self-care (01) ==
LOC: RADSHAW 10:55
PROVIDERS: PCP Internal Medicine; Visit Provider Internal Medicine
DX: M05.9 Rheumatoid arthritis with rheumatoid factor, unspecified (principal); K72.00 Acute and subacute hepatic failure without coma; I31.3 Pericardial effusion (noninflammatory); R74.01 Elevation of levels of liver transaminase levels; G93.41 Metabolic encephalopathy; Z79.899 Other long term (current) drug therapy; F17.210 Nicotine dependence, cigarettes, uncomplicated; Z12.31 Encounter for screening mammogram for malignant neoplasm of breast
CPT/HCPCS: 77067; 99214

== ENCOUNTER → 2020-09-16 10:35 | Outpatient (BNVA) | payer MEDICAID, SELFPAY | PROVIDERS: PCP Internal Medicine; Visit Provider Internal Medicine | DX: M06.9 Rheumatoid arthritis, unspecified (principal); Z79.899 Other long term (current) drug therapy | CPT/HCPCS: 36415; 80053 ==

== ENCOUNTER → 2020-10-06 10:22 | Outpatient (BNVA) | payer MEDICAID, SELFPAY | PROVIDERS: PCP Internal Medicine; Visit Provider Nurse Practitioner | DX: M54.41 Lumbago with sciatica, right side (principal); M54.42 Lumbago with sciatica, left side; M50.30 Other cervical disc degeneration, unspecified cervical region; M47.812 Spondylosis without myelopathy or radiculopathy, cervical region; M25.50 Pain in unspecified joint; M06.9 Rheumatoid arthritis, unspecified; F17.210 Nicotine dependence, cigarettes, uncomplicated; Z79.891 Long term (current) use of opiate analgesic; Z71.6 Tobacco abuse counseling | CPT/HCPCS: 99213 ==

== ENCOUNTER 2020-10-21 06:50 | Outpatient (CLI) | payer MEDICAID, SELFPAY ==
--- NOTE | 2020-10-21 06:57 | USCV_ITS ---
Erin Kelley Age: 50 Gender: F : 1970 Exam Date: 10/21/2020 07:44 Ordering Phys: Tiffany Hardy MD ([email or web address]) Technologist: Mario Ray [place] [facility] [place]ication: SOB CP PERICARDIAL EFFUSION BP: 92 / 56 HR: 81 Rhythm: Sinus Technical Quality: Fair MEASUREMENTS (Male / Female) Normal Values 2D ECHO LV Diastolic Diameter PLAX 4.1 cm 4.2 - 5.9 / 3.9 - 5.3 cm LV Systolic Diameter PLAX 2.7 cm IVS Diastolic Thickness 1.3 cm 0.6 - 1.0 / 0.6 - 0.9 cm IVS Systolic Thickness 1.6 cm LVPW Diastolic Thickness 0.9 cm 0.6 - 1.0 / 0.6 - 0.9 cm LVPW Systolic Thickness 1.4 cm LVOT Diameter 2.0 cm LV Ejection Fraction 2D Teich 63.2 % LV Ejection Fraction MOD 2C 70.1 % LV Ejection Fraction 2C AL 70.4 % LA Diameter 3.2 cm LA Width 3.2 cm LA Height 4.0 cm RA Width 3.0 cm RA Height 4.1 cm Aorta at Sinotubular Diameter 3.0 cm M-MODE LV Diastolic Diameter MM 4.0 cm 4.2 - 5.9 / 3.9 - 5.3 cm LV Systolic Diameter MM 2.7 cm LV Ejection Fraction MM Teich 59.5 % IVS Diastolic Thickness MM 1.5 cm 0.6 - 1.0 / 0.6 - 0.9 cm IVS Systolic Thickness MM 1.8 cm LVPW Diastolic Thickness MM 0.8 cm 0.6 - 1.0 / 0.6 - 0.9 cm LVPW Systolic Thickness MM 1.2 cm Aortic Annulus Diameter 2.6 cm LA Ao Ratio MM 1.3 MV E Point Septal Separation 0.8 cm DOPPLER Right Atrial Pressure 3.0 mmHg FINDINGS Left Ventricle Normal left ventricular cavity size. Normal left ventricular systolic function. No regional wall motion abnormalities. Left ventricular ejection fraction is estimated at 63 %. Right Ventricle The right ventricle is normal in size and function. Right Atrium The right atrium is normal in size. Left Atrium The left atrium is normal in size. Mitral Valve Structurally normal mitral valve without significant stenosis or prolapse. There is no mitral regurgitation. Aortic Valve Structurally normal aortic valve without significant sclerosis or stenosis. There is no aortic regurgitation. Tricuspid Valve Thickened tricuspid valve. No tricuspid valve stenosis. No tricuspid valve regurgitation. Pulmonic Valve Structurally normal pulmonic valve without significant stenosis. There is no pulmonic regurgitation. Pericardium Normal pericardium without effusion. Aorta Normal ascending aorta dimension. CONCLUSIONS 1-Normal left ventricular cavity size. Normal left ventricular systolic function. No regional wall motion abnormalities. Left ventricular ejection fraction is estimated at 63 %. 2-There is no pericardial effusion. 3-No significant valve abnormalities. 4-Right atrial pressure is around 5 mm of mercury. 5-When compared to the prior echocardiogram dated 17 August 2020 pericardial effusion has improved and there is no effusion now. Tiffany Hardy MD (Electronically Signed) Final Date: 21 October 2020 17:42 S
== END 2020-10-21 06:51 | disposition home or self-care (01) ==
LOC: RAD 06:52
PROVIDERS: PCP Internal Medicine; Visit Provider Internal Medicine
DX: R06.02 Shortness of breath (principal); R07.9 Chest pain, unspecified; I31.3 Pericardial effusion (noninflammatory)
CPT/HCPCS: 93308

== ENCOUNTER → 2020-10-28 11:15 | Outpatient (BNVA) | payer MEDICAID, SELFPAY | PROVIDERS: PCP Internal Medicine; Visit Provider Internal Medicine | DX: M05.9 Rheumatoid arthritis with rheumatoid factor, unspecified (principal); I31.3 Pericardial effusion (noninflammatory); R06.00 Dyspnea, unspecified; F17.210 Nicotine dependence, cigarettes, uncomplicated | CPT/HCPCS: 99214 ==

== ENCOUNTER → 2020-11-24 10:34 | Outpatient (BNVA) | payer MEDICAID, SELFPAY | PROVIDERS: PCP Internal Medicine; Visit Provider Anesthesiology | DX: M54.41 Lumbago with sciatica, right side (principal); M54.42 Lumbago with sciatica, left side; F17.210 Nicotine dependence, cigarettes, uncomplicated; Z79.891 Long term (current) use of opiate analgesic | CPT/HCPCS: 99213 ==

== ENCOUNTER → 2020-11-26 10:30 | Outpatient (BNVA) | payer MEDICAID, SELFPAY | PROVIDERS: PCP Internal Medicine; Visit Provider Internal Medicine | DX: M06.9 Rheumatoid arthritis, unspecified (principal); D84.9 Immunodeficiency, unspecified; M81.0 Age-related osteoporosis without current pathological fracture; F17.210 Nicotine dependence, cigarettes, uncomplicated | CPT/HCPCS: 99214 ==

== ENCOUNTER 2020-11-26 11:52 | Outpatient (CLI) | payer MEDICAID, SELFPAY ==
[2020-11-26 12:35] LABS: Basophils # 0.1 10^3/uL (0.0-0.1); Basophils % 0.9 %; Eosinophils # 0.4 10^3/uL (0.0-0.8); Eosinophils % 3.8 %; Hematocrit 35.5 % (37.0-47.0); Hemoglobin 11.5 g/dL (11.5-15.3); Lymphocytes # 1.8 10^3/uL (0.8-4.8); Lymphocytes % 18.2 %; Mean Corpuscular HGB Conc 32.4 g/dL (30.0-36.0); Mean Corpuscular Hemoglobin 28.3 pg (28.0-34.0); Mean Corpuscular Volume 87.4 fL (81-99); Mean Platelet Volume 10.2 fL (7.4-10.4); Monocytes # 0.9 10^3/uL (0.2-0.9); Monocytes % 8.8 %; Neutrophils # 6.63 10^3/uL (1.8-7.7); Neutrophils % 68.1 %; Nucleated Red Blood Cells % 0 %; Platelet Count 140 10^3/cmm (130-400); Red Blood Count 4.06 10^6/uL (4.1-5.3); Red Cell Distribution Width 16.6 % (12.1-15.1); White Blood Count 9.7 10^3/uL (4.0-10.0)
[2020-11-26 12:52] LABS: Alanine Aminotransferase 38 U/L (0-33); Alkaline Phosphatase 340 IU/L (35-105); Anion Gap 14.1 (5-19); Aspartate Amino Transferase 27 U/L (0-32); Blood Urea Nitrogen 12 mg/dL (6-20); C Reactive Protein 97.6 mg/L (0.0-4.9); Calcium 8.4 mg/dL (8.5-10.5); Carbon Dioxide 22 mmol/L (22-29); Chloride 101 mmol/L (98-107); Globulin 3.3 g/dL (1.3-4.6); Glucose 222 mg/dL (65-115); Osmolality Calculated 283 mOsm/kg (285-295); Potassium 4.1 mmol/L (3.5-5.1); Sodium 133 mmol/L (136-145); Total Bilirubin 1.1 mg/dL (0.15-1.2); Total Protein 6.3 g/dL (6.6-8.7)
[2020-11-26 13:38] LABS: Erythrocyte Sedimentation Rate 48 mm/hr (0-15)
== END 2020-11-26 11:53 | disposition home or self-care (01) ==
LOC: LAB 11:56
PROVIDERS: PCP Internal Medicine; Visit Provider Internal Medicine
DX: M06.9 Rheumatoid arthritis, unspecified (principal)
CPT/HCPCS: 36415; 80053; 85025; 85651; 86140

== ENCOUNTER → 2021-01-21 10:31 | Outpatient (BNVA) | payer MEDICAID, SELFPAY | PROVIDERS: PCP Internal Medicine; Visit Provider Anesthesiology | DX: M54.41 Lumbago with sciatica, right side (principal); M54.42 Lumbago with sciatica, left side; M54.2 Cervicalgia; M25.50 Pain in unspecified joint; F17.210 Nicotine dependence, cigarettes, uncomplicated; Z79.891 Long term (current) use of opiate analgesic | CPT/HCPCS: 99213 ==

== ENCOUNTER 2021-02-10 13:07 | Outpatient (CLI) | payer MEDICAID, SELFPAY ==
[2021-02-10 13:41] LABS: Basophils # 0.1 10^3/uL (0.0-0.1); Basophils % 1.4 %; Eosinophils # 0.6 10^3/uL (0.0-0.8); Eosinophils % 6.6 %; Hematocrit 42.1 % (37.0-47.0); Hemoglobin 13.1 g/dL (11.5-15.3); Lymphocytes # 2.1 10^3/uL (0.8-4.8); Lymphocytes % 23.9 %; Mean Corpuscular HGB Conc 31.1 g/dL (30.0-36.0); Mean Corpuscular Hemoglobin 27.8 pg (28.0-34.0); Mean Corpuscular Volume 89.4 fL (81-99); Mean Platelet Volume 10.2 fL (7.4-10.4); Monocytes # 0.4 10^3/uL (0.2-0.9); Monocytes % 4.8 %; Neutrophils # 5.45 10^3/uL (1.8-7.7); Neutrophils % 63.1 %; Nucleated Red Blood Cells % 0 %; Platelet Count 202 10^3/cmm (130-400); Red Blood Count 4.71 10^6/uL (4.1-5.3); Red Cell Distribution Width 14.4 % (12.1-15.1); White Blood Count 8.6 10^3/uL (4.0-10.0)
[2021-02-10 13:54] LABS: Amphetamines Screen Urine Negative (Negative); Barbiturates Screen Urine Negative (Negative); Benzodiazepines Screen Urine Negative (Negative); Cocaine Screen Urine Negative (Negative); Opiate Screen Urine Negative (Negative); PCP Screen Urine Negative (Negative); THC Screen Urine Negative (Negative)
[2021-02-10 14:21] LABS: Alanine Aminotransferase 12 U/L (0-33); Alkaline Phosphatase 204 IU/L (35-105); Anion Gap 15.9 (5-19); Aspartate Amino Transferase 21 U/L (0-32); Blood Urea Nitrogen 6 mg/dL (6-20); C Reactive Protein 24.3 mg/L (0.0-4.9); Calcium 8.3 mg/dL (8.5-10.5); Carbon Dioxide 21 mmol/L (22-29); Chloride 99 mmol/L (98-107); Glucose 197 mg/dL (65-115); Osmolality Calculated 277 mOsm/kg (285-295); Potassium 3.9 mmol/L (3.5-5.1); Sodium 132 mmol/L (136-145); Total Bilirubin 0.6 mg/dL (0.15-1.2)
[2021-02-10 15:30] LABS: Erythrocyte Sedimentation Rate 47 mm/hr (0-15)
== END 2021-02-10 13:08 | disposition home or self-care (01) ==
LOC: LAB 13:11
PROVIDERS: PCP Internal Medicine; Visit Provider Internal Medicine
DX: M06.9 Rheumatoid arthritis, unspecified (principal); M81.0 Age-related osteoporosis without current pathological fracture; Z79.899 Other long term (current) drug therapy
CPT/HCPCS: 80053; 80306; 85025; 85651; 86140

== ENCOUNTER → 2021-02-15 09:07 | Outpatient (BNVA) | payer MEDICAID, SELFPAY | PROVIDERS: PCP Internal Medicine; Visit Provider Internal Medicine | DX: M06.9 Rheumatoid arthritis, unspecified (principal); I51.9 Heart disease, unspecified; J98.4 Other disorders of lung; G89.29 Other chronic pain; F17.210 Nicotine dependence, cigarettes, uncomplicated | CPT/HCPCS: 99214 ==

== ENCOUNTER 2021-03-24 11:24 | Outpatient (CLI) | payer MEDICAID, SELFPAY ==
--- NOTE | 2021-03-24 11:35 | XR_ITS ---
WS: [id number] RIGHT KNEE: 3 VIEW(S) TECHNIQUE: AP, oblique(s) and lateral. HISTORY: RT KNEE PAIN COMPARISON: 01/27/2020 No fracture or dislocation. Minimal tricompartment joint space narrowing. No osteochondral lesions. No joint effusion. No soft tissue abnormality. XR/XR knee RT 3V* [id number] IMPRESSION: Minimal tricompartment osteoarthritis.
--- NOTE | 2021-03-24 11:35 | XR_ITS ---
WS: [id number] LEFT KNEE: 3 VIEW(S) TECHNIQUE: AP, oblique(s) and lateral. HISTORY: LT KNEE PAIN COMPARISON: None available. Very minimal patellofemoral joint space narrowing medial compartment narrowing. No fracture. No joint effusion. No soft tissue abnormality. XR/XR knee LT 3V* [id number] IMPRESSION: Minimal medial and patellofemoral compartment joint space narrowing.
== END 2021-03-24 11:25 | disposition home or self-care (01) ==
LOC: RAD 11:28
PROVIDERS: PCP Internal Medicine; Visit Provider Nurse Practitioner Family
DX: M25.562 Pain in left knee (principal); M17.11 Unilateral primary osteoarthritis, right knee
CPT/HCPCS: 73562

== ENCOUNTER → 2021-04-08 07:53 | Outpatient (BNVA) | payer MEDICAID, SELFPAY | PROVIDERS: PCP Internal Medicine; Visit Provider Anesthesiology | DX: G89.29 Other chronic pain (principal); M06.9 Rheumatoid arthritis, unspecified; M81.0 Age-related osteoporosis without current pathological fracture; M54.40 Lumbago with sciatica, unspecified side; M47.812 Spondylosis without myelopathy or radiculopathy, cervical region; M50.30 Other cervical disc degeneration, unspecified cervical region; M25.50 Pain in unspecified joint; F17.210 Nicotine dependence, cigarettes, uncomplicated; Z79.899 Other long term (current) drug therapy; Z79.891 Long term (current) use of opiate analgesic | CPT/HCPCS: 36415; 80053; 85025; 85651; 86140; 99214 ==

== ENCOUNTER → 2021-04-19 09:22 | Outpatient (BNVA) | payer MEDICAID, SELFPAY | PROVIDERS: PCP Internal Medicine; Visit Provider Internal Medicine | DX: M05.9 Rheumatoid arthritis with rheumatoid factor, unspecified (principal); M50.30 Other cervical disc degeneration, unspecified cervical region; D69.6 Thrombocytopenia, unspecified; R21 Rash and other nonspecific skin eruption; F17.210 Nicotine dependence, cigarettes, uncomplicated | CPT/HCPCS: 99214 ==

== ENCOUNTER 2021-05-22 19:17 | Emergency (ER) | payer MEDICAID, SELFPAY ==
[2021-05-22 19:29] VITALS: BP 136/76; PULSE 73; RESP 20; TEMP 37.2; O2SAT 98; BMI 29.0
[2021-05-22 20:49] LABS: Add Urine Microscopic? YES; Bilirubin Urine Neg (Negative); Blood Urine 3+ (Negative); Glucose Urine UA 1+ (Normal); Ketones Urine Negative (Negative); Leukocyte Esterase Urine Negative (Negative); Nitrate Urine Negative (Negative); Protein Urine 3+ (Negative); Urine Appearance Clear (CLEAR); Urine Color Yellow (Yellow); Urobilinogen Urine 4 mg/dL (Negative); pH Urine 6 (5-7)
[2021-05-22 20:54] LABS: Add Urine Culture? No; Bacteria Urine 1+ /hpf; RBC Urine 40-50 /hpf (0-2); Squamous Epithelial Cell Urine 25-40 /hpf (0-5); WBC Urine 0-4 /hpf (0-5)
[2021-05-22 21:09] LABS: Basophils # 0.1 10^3/uL (0.0-0.1); Basophils % 0.9 %; Eosinophils % 0.5 %; Hemoglobin 13.5 g/dL (11.5-15.3); Lymphocytes # 1.2 10^3/uL (0.8-4.8); Lymphocytes % 20.7 %; Mean Corpuscular HGB Conc 32.1 g/dL (30.0-36.0); Mean Corpuscular Hemoglobin 29.5 pg (28.0-34.0); Mean Corpuscular Volume 91.9 fl (81-99); Mean Platelet Volume 10.8 fL (7.4-10.4); Monocytes # 0.4 10^3/uL (0.2-0.9); Monocytes % 7.4 %; Neutrophils # 3.95 10^3/uL (1.8-7.7); Neutrophils % 70.1 %; Nucleated Red Blood Cells % 0 %; Platelet Count 116 10^3/cmm (130-400); Red Blood Count 4.57 10^6/uL (4.1-5.3); White Blood Count 5.6 10^3/uL (4.0-10.0)
[2021-05-22 21:28] LABS: Alanine Aminotransferase 32 U/L (0-33); Albumin Level 3.4 g/dL (3.5-5.2); Alkaline Phosphatase 200 IU/L (35-105); Anion Gap 16.6 (5-19); Aspartate Amino Transferase 29 U/L (0-32); Blood Urea Nitrogen 12 mg/dL (6-20); Calcium 8.2 mg/dL (8.5-10.5); Carbon Dioxide 21 mmol/L (22-29); Chloride 96 mmol/L (98-107); Globulin 2.8 g/dL (1.3-4.6); Glomerular Filtration Rate 87.9 mL/min (90-130); Glucose 299 mg/dL (65-115); Lipase 8 U/L (13-60); Osmolality Calculated 279 mOsm/kg (285-295); Potassium 4.6 mmol/L (3.5-5.1); Sodium 129 mmol/L (136-145); Total Bilirubin 0.5 mg/dL (0.15-1.2); Total Protein 6.2 g/dL (6.6-8.7)
--- NOTE | 2021-05-22 22:50 | PC.NURSE ---
attempted to obtain vs. pt is no longer in the waiting room.
--- NOTE | 2021-05-22 23:07 | PC.NURSE ---
second call no answer.
== END 2021-05-22 23:15 | disposition left against medical advice (07) ==
PROVIDERS: Emergency Medicine; Emergency Provider Family Medicine; PCP Internal Medicine
DX: Z53.21 Procedure and treatment not carried out due to patient leaving prior to being seen by health care provider (principal)
CPT/HCPCS: 80053; 81001; 83690; 85025

== ENCOUNTER 2021-05-26 13:58 | Outpatient (CLI) | payer MEDICAID, SELFPAY ==
[2021-05-26 14:20] VITALS: BP 120/78; PULSE 67; RESP 20; TEMP 37.1; O2SAT 97; BMI 30.9
[2021-05-26 14:43] VITALS: BP 137/67; PULSE 67; RESP 19; TEMP 36.2; O2SAT 97
[2021-05-26 15:46] VITALS: BP 154/76; PULSE 70; RESP 18; TEMP 36.2; O2SAT 94
== END 2021-05-26 13:59 | disposition home or self-care (01) ==
LOC: OPS 13:59
PROVIDERS: PCP Internal Medicine; Visit Provider Family Medicine
DX: U07.1 COVID-19 (principal)
CPT/HCPCS: 96365

== ENCOUNTER 2021-05-31 17:29 | Emergency (ER) | payer MEDICAID, SELFPAY ==
[2021-05-31 17:54] VITALS: BP 114/74; PULSE 58; RESP 17; O2SAT 94; BMI 29.9
--- NOTE | 2021-05-31 18:28 | XRR_ITS ---
PROCEDURE INFORMATION: Exam: XR Chest Exam date and time: 05/31/2021 6:28 PM Age: 50 years old Clinical indication: Shortness of breath; Additional info: SOB TECHNIQUE: Imaging protocol: XR of the chest. Views: 1 view. COMPARISON: CR XR chest 2V* [id number] 08/17/2020 7:23 AM FINDINGS: Lungs: Emphysematous changes. Patchy bilateral minimal ground-glass airspace opacities may reflect an evolving bronchopneumonia. Pleural spaces: Unremarkable. No pleural effusion. No pneumothorax. Heart/Mediastinum: Unremarkable. No cardiomegaly. Bones/joints: Unremarkable. XR/XR chest 1V portable [id number] IMPRESSION: 1. Emphysematous changes. 2. Patchy bilateral minimal ground-glass airspace opacities may reflect an evolving bronchopneumonia. Radiation Dose CTDIVOL = (mGy): DLP = (mGy-cm)
--- NOTE | 2021-05-31 21:07 | ED_ITS ---
HPI - COVID General: Chief Complaint: COVID symptoms Stated Complaint: Covid+ Time Seen by Provider: 05/31/21 20:35 Triage information: Has fever, cough or shortness of breath . Exposure to COVID + person last 14 days History of Present Illness: HPI Narrative: Patient is a 50-year-old female comes to the ED with nausea. Symptoms started yesterday. She states that she tested positive for COVID-19 approximately 7 weeks ago. She has a past medical history of COPD, hypertension, diabetes, epilepsy and rheumatoid arthritis. Patient does not have oxygen at home but does use inhalers at home. Patient says she has not used her inhalers today, since she has been here in the ED for several hours. Currently here in the ED her nausea has resolved. Denies chest pain, shortness of breath, emesis, upper respiratory symptoms, cough, abdominal pain, bladder or bowel symptoms. COVID 19 common symptoms: positive nausea (resolved here in the ED); negative fever(s), chills, non-productive cough, productive cough, dyspnea, fatigue, headache(s), throat pain, nasal congestion, vomiting or diarrhea COVID 19 other sytmptoms: negative chest pain COVID Results: SARS-CoV-2 Antigen (Rapid) Negative (Negative) 05/31/21 22:50 05/31/21 Nasal/Oral Coronavirus 2019 PCR Negative 02/28/20 11:40 02/28/20 Review of Systems Const: Reports: malaise; Denies: fever(s), chills or fatigue Eyes: Denies: change in vision or eye discomfort ENMT: Denies: throat pain, odynophagia, nasal discharge or nasal congestion Card: Denies: chest pain, palpitations, edema, swelling of feet/ankles, dyspnea on exertion or orthopnea Resp: Denies: dyspnea, productive cough or non-productive cough GI: Reports: nausea (resolved here in the ED); Denies: abdominal pain, vomiting, diarrhea, constipation or hematochezia : Denies: flank pain, dysuria or hematuria Musc: Denies: neck pain, back pain or extremity swelling Skin/Breast: Denies: rash or new lesions Neuro: Denies: headache(s), numbness in extremities or weakness in extremities PFS ED PFSH: Medical History Avulsion fracture of left ankle Cervical spondylosis Chronic anticoagulation Claudication Closed fracture of right distal fibula COVID-19 DDD (degenerative disc disease), cervical Diabetes Emphysema/COPD Essential hypertension Fibromyalgia Immunocompromised Long-term current use of opiate analgesic Onychodystrophy Osteoporosis Pain, joint, multiple sites Portal vein thrombosis Rheumatoid arthritis Spondylosis of lumbar region without myelopathy or radiculopathy Syncope Tobacco use disorder Surgical History H/O dilation and curettage Hx laparoscopic cholecystectomy Hx of section (~1989) Hx of hysterectomy Family History Mother Stroke Cancer SKIN CANCER Sister Stroke Other Diabetes Myocardial infarct Denies family history of Anesthesia complication Bleeding disorder Social History Smoking and tobacco status: current some day smoker cigarettes Years cigarettes smoked: 40 [ Other cigarette details: 2 cigarettes/day currently ] Quit status (tobacco): considering quitting Second hand smoke exposure: Yes Smoking risk assessment/counseling performed?: Yes Alcohol intake: former Caregiver/support person: Yes Lives independently: Yes Household members: spouse Marital status: Current occupational status: disabled Pets and animals: Yes History of recent travel: No Current gender identity: Female Physical Exam Const: COMMON NORMALS: no acute distress, patient oriented x3 and alert GENERAL APPEARANCE: cooperative and comfortable HENMT: COMMON NORMALS: normocephalic HEAD & SCALP: normocephalic MOUTH: Normal oral and palatal mucosa present THROAT: posterior oropharynx normal and uvula midline Eye: COMMON NORMALS: Equal, round and reactive pupils present PUPIL: Yes Equal, round and reactive pupils present Neck/C-Spine: COMMON NORMALS: supple GENERAL: Yes normal visual inspection Resp: COMMON NORMALS: normal respiratory effort, No retractions and No use of accessory muscles EFFORT & INSPECTION: Yes able to speak in complete sentences, No respiratory distress and No labored AUSCULTATION: wheezes expiratory wheezes and throughout Cardio: COMMON NORMALS: regular rate, regular rhythm, S1 normal heart sound present, S2 normal heart sound present, No gallops present (Cardio), No clicks present (Cardio), No murmurs present (Cardio) and Peripheral pulses 2+ throughout RATE: regular rate RHYTHM: regular rhythm HEART SOUNDS: S1 normal heart sound present and S2 normal heart sound present PERIPHERAL PULSES: Peripheral pulses 2+ throughout GI: COMMON NORMALS: Normal to inspection, nondistended, normoactive bowel sounds present, Soft to palpation, non-tender and no masses PALPATION: Yes Soft to palpation : COMMON NORMALS: Yes no CVA tenderness BLADDER/KIDNEY EXAM: Yes no CVA tenderness Back/Pelvis: COMMON NORMALS: no CVA tenderness Extremity: COMMON NORMALS: normal to inspection Neuro: COMMON NORMALS: patient oriented x3 and moves all extremities SENSORIUM/ORIENTATION: Yes alert Skin: GENERAL SKIN EXAM: dry skin Course Vital Signs: Vital signs: Vital Signs Pulse Rate 78 05/31/21 23:50 Respiratory Rate 20 H 05/31/21 23:50 Blood Pressure 141/77 05/31/21 23:50 Pulse Oximetry 95 05/31/21 23:50 MDM - COVID MDM Narrative: Medical decision making narrative: Patient is a 30-year-old female comes to the ED with nausea and general malaise. Denies any other symptoms. Patient is a history of COPD and she uses inhalers daily, but missed her dose of inhalers today since she has been here in the ED. Denies any chest pain, fevers, cough, upper respiratory symptoms or acute shortness of breath. While here in the ED her nausea resolved without any treatment. Vitals stable. Exam shows some bilateral expiratory wheezing throughout lungs. But rest of exam was benign. CBC and CMP were unremarkable. Rapid Covid negative. Blood cultures pending. Chest x-ray shows bronchopneumonia. Patient was given a dose of Solu-Medrol and azithromycin here in the ED. Patient was diagnosed with bronchopneumonia and discharged home with a prescription for azithromycin, Reglan and prednisone. She was told to follow-up with her PCP in 5-7 days for reevaluation. Return to ED precautions given. Patient understood and agreed with plan. Lab Data: Attestation: I reviewed the patient's lab results. Labs: Lab Results 05/31/21 05/31/21 05/31/21 22:01 22:01 22:50 WBC 3.0 10^3/uL L 10^ 3/uL (4.0-10.0) RBC 4.55 10^6/uL 10^6 /uL (4.1-5.3) Hgb 13.0 g/dL g/dL (11.5-15.3) Hct 39.2 % % (37.0-47.0) MCV 86.2 fl fl (81-99) MCH 28.6 pg pg (28.0-34.0) MCHC 33.2 g/dL g/dL (30.0-36.0) RDW 13.7 % % (12.1-15.1) Plt Count 147 10^3/cmm 10^3 /cmm (130-400) MPV 11.4 fL H fL (7.4-10.4) Neut % (Auto) 68.2 % % Lymph % (Auto) 25.1 % % [place] % (Auto) 6.4 % % Eos % (Auto) 0.0 % % Baso % (Auto) 0.0 % % Neut # (Auto) 2.01 10^3/uL 10^3 /uL (1.8-7.7) Lymph # (Auto) 0.7 10^3/uL L 10^ 3/uL (0.8-4.8) [place] # (Auto) 0.2 10^3/uL 10^3/ uL (0.2-0.9) Eos # (Auto) 0.0 10^3/uL 10^3/ uL (0.0-0.8) Baso # (Auto) 0.0 10^3/uL 10^3/ uL (0.0-0.1) Nucleated RBC % (a uto) 0 % % Nucleated RBCs # 0.0 /100WBC /100W BC Sodium 134 mmol/L L mmol /L (136-145) Potassium 4.5 mmol/L mmol/L (3.5-5.1) Chloride 99 mmol/L mmol/L (98-107) Carbon Dioxide 22 mmol/L mmol/L (22-29) Anion Gap 17.5 (5-19) BUN 15 mg/dL mg/dL (6-20) Creatinine 0.7 mg/dL mg/dL (0.5-0.9) GFR Calculation 87.9 mL/min L mL/ min (90-130) Glucose 230 mg/dL H mg/dL (65-115) Calculated Osmolal ity 286 mOsm/kg mOsm/ kg (285-295) Calcium 8.6 mg/dL mg/dL (8.5-10.5) Total Bilirubin 1.0 mg/dL mg/dL (0.15-1.2) AST 20 U/L U/L (0-32) ALT 18 U/L U/L (0-33) Alkaline Phosphata se 165 IU/L H IU/L (35-105) Total Protein 6.9 g/dL g/dL (6.6-8.7) Albumin 3.6 g/dL g/dL (3.5-5.2) Globulin 3.3 g/dL g/dL (1.3-4.6) SARS-CoV-2 Ag (Rap id) Negative (Negative) Imaging Data: CXR: Attestation: I personally reviewed and interpreted this imaging study as follows: Radiologist's impression: [address]e [address], [place] [address]DWpa ReportSigned Patient: Erin Kelley SUnit #: [id number]: 1970Acct#:[id number]/Sex: 50 / FADM Date: 05/31/21Loc: ERRoom/Bed:Attending Dr: Ordering Provider/Ordering MD: Annamaria Perez MD Date of Service: 05/31/21 Procedure(s): XR chest 1V portable [id number] Accession Number(s): [id number] Report Number: [id number] PROCEDURE INFORMATION: Exam: XR Chest Exam date and time: 05/31/2021 6:28 PM Age: 50 years old Clinical indication: Shortness of breath; Additional info: SOB TECHNIQUE: Imaging protocol: XR of the chest. Views: 1 view. COMPARISON: CR XR chest 2V* [id number] 08/17/2020 7:23 AM FINDINGS: Lungs: Emphysematous changes. Patchy bilateral minimal ground-glass airspace opacities may reflect an evolving bronchopneumonia. Pleural spaces: Unremarkable. No pleural effusion. No pneumothorax. Heart/Mediastinum: Unremarkable. No cardiomegaly. Bones/joints: Unremarkable. XR/XR chest 1V portable [id number] IMPRESSION: 1. Emphysematous changes. 2. Patchy bilateral minimal ground-glass airspace opacities may reflect an evolving bronchopneumonia. Radiation Dose CTDIVOL = (mGy): DLP = (mGy-cm) Dictated By:Peter Murdock MDSigned By:Peter Murdock MDSigned Date/Time:05/31/211935DD/ 27 COVID Results: SARS-CoV-2 Antigen (Rapid) Negative (Negative) 05/31/21 22:50 05/31/21 Nasal/Oral Coronavirus 2019 PCR Negative 02/28/20 11:40 02/28/20 Discharge Plan Discharge Patient Disposition: Home Clinical Impression: Bronchopneumonia Condition: Stable Prescriptions: New azithromycin 250 mg tablet 250 mg PO DAILY 4 Days Qty: 4 RF: 0 prednisone 20 mg tablet 20 mg PO BID 5 Days Qty: 10 RF: 0 Reglan 10 mg tablet 10 mg PO Q6H PRN (Reason: nausea and vomiting) Qty: 20 RF: 0 No Action omeprazole 40 mg capsule,delayed release(DR/EC) 40 mg PO DAILY RF: 0 melatonin 3 mg capsule 3 mg PO DAILY RF: 0 metoprolol tartrate 25 mg tablet 25 mg PO BID Qty: 180 RF: 3 Eliquis 5 mg tablet 5 mg PO BID RF: 0 oxycodone 15 mg tablet 15 mg PO BID PRN (Reason: pain) 30 Days Qty: 60 RF: 0 oxycodone 15 mg tablet 15 mg PO BID PRN (Reason: pain) 30 Days Qty: 60 RF: 0 gabapentin 300 mg capsule 300 mg PO TID 30 Days Qty: 90 RF: 1 rosuvastatin [Crestor] 20 mg tablet 20 mg PO DAILY RF: 0 ropinirole 2 mg tablet 2 mg PO BEDTIME RF: 0 Lantus U-100 Insulin 100 unit/mL solution 40 unit SUBCUT DAILY@0800 RF: 0 Bevespi Aerosphere 9-4.8 mcg HFA aerosol inhaler 2 puff INHALATION BID Qty: 10.7 RF: 5 Combivent Respimat 20-100 mcg/actuation mist 1 puff INHALATION Q6H PRN (Reason: Shortness Of Breath) Qty: 4 RF: 5 DME: Walker Unit 1 ea .Route .prn Qty: 1 RF: 0 albuterol sulfate 90 mcg/actuation HFA aerosol inhaler 1 inh inhalation QID PRN (Reason: shortness of breath or wheezing) Qty: 8.5 RF: 6 triamcinolone acetonide 0.1 % ointment 1 applic topical DAILY Qty: 80 RF: 0 tamsulosin [Flomax] 0.4 mg capsule 0.4 mg PO DAILY RF: 0 nitroglycerin [Nitrostat] 0.4 mg tablet, sublingual 0.4 mg SUBLINGUAL Q5M PRN (Reason: chest pain) 30 Days Qty: 25 RF: 6 nicotine 14 mg/24 hr patch 24 hour 1 patch transdermal DAILY Qty: 28 RF: 0 silver sulfadiazine [Silvadene] 1 % cream 1 applic topical BID Qty: 50 RF: 0 prednisone 5 mg tablet See Rx Instructions PO DAILY Qty: 60 RF: 2 Enbrel 50 mg/mL (1 mL) syringe 50 mg SUBCUT .QWEEKLY Qty: 4 RF: 2 hydroxychloroquine 200 mg tablet 200 mg PO BID Qty: 60 RF: 3 epinephrine [EpiPen 2-[place]] 0.3 mg/0.3 mL Auto-Injector See Rx Instructions .ROUTE .COMPLEX PRN (Reason: Allergic Reaction) RF: 0 insulin aspart U-100 [Novolog Flexpen U-100 Insulin] 100 unit/mL (3 mL) insulin pen See Rx Instructions .ROUTE .COMPLEX RF: 0 Glucagon (HCl) Emergency Kit 1 mg Recon Soln 1 mg SUBCUT Q20M PRN (Reason: blood sugar) Qty: 0 RF: 0 albuterol sulfate 2.5 mg /3 mL (0.083 %) Solution For Nebulization 2.5 mg INHALATION Q6H PRN (Reason: Shortness Of Breath) RF: 0 Aspir-81 81 mg Tablet,Delayed Release (Dr/Ec) 81 mg PO DAILY@0800 RF: 0 Discharge Orders: Discharge ED (Routine); Ordered 05/31/21 Ordered By: Darren Elias Referrals: Nel Peacock MD [Primary Care Provider] - Discharge Diet: Regular Discharge Activity: Resume usual activity Patient Instructions: Pneumonia (ED) Activity Restrictions/Additional Instructions: Follow-up with medical provider as directed in 5 to 7 days reevaluation. Make sure to check your blood sugars closely while taking prednisone. Take medications as prescribed. Return to the ER or your medical provider if condition worsens. Please read and understand discharge instructions. Thank you for choosing [facility] for your healthcare needs today. Please realize this is an emergency room and that we are providing you with a medical screening exam and this may not be complete and all inclusive of all the testing and or work up that you may need to determine your ailment or severity of your illness. It is very important that you follow up as instructed or that you return to the Emergency Department should you have concerns or if your condition changes or worsens in any way. Coding Level of Care Code ED Chassis Engineer for Chikis Toro Exam Comprehensive
[2021-05-31 21:13] VITALS: BP 133/54; PULSE 57; RESP 20; O2SAT 94
[2021-05-31 22:00] VITALS: O2SAT 98
[2021-05-31 22:14] LABS: Hematocrit 39.2 % (37.0-47.0); Lymphocytes # 0.7 10^3/uL (0.8-4.8); Lymphocytes % 25.1 %; Mean Corpuscular HGB Conc 33.2 g/dL (30.0-36.0); Mean Corpuscular Hemoglobin 28.6 pg (28.0-34.0); Mean Corpuscular Volume 86.2 fl (81-99); Mean Platelet Volume 11.4 fL (7.4-10.4); Monocytes # 0.2 10^3/uL (0.2-0.9); Monocytes % 6.4 %; Neutrophils # 2.01 10^3/uL (1.8-7.7); Neutrophils % 68.2 %; Nucleated Red Blood Cells % 0 %; Platelet Count 147 10^3/cmm (130-400); Red Blood Count 4.55 10^6/uL (4.1-5.3); Red Cell Distribution Width 13.7 % (12.1-15.1)
[2021-05-31 22:56] LABS: Alanine Aminotransferase 18 U/L (0-33); Albumin Level 3.6 g/dL (3.5-5.2); Alkaline Phosphatase 165 IU/L (35-105); Anion Gap 17.5 (5-19); Aspartate Amino Transferase 20 U/L (0-32); Blood Urea Nitrogen 15 mg/dL (6-20); Calcium 8.6 mg/dL (8.5-10.5); Carbon Dioxide 22 mmol/L (22-29); Chloride 99 mmol/L (98-107); Globulin 3.3 g/dL (1.3-4.6); Glomerular Filtration Rate 87.9 mL/min (90-130); Glucose 230 mg/dL (65-115); Osmolality Calculated 286 mOsm/kg (285-295); Potassium 4.5 mmol/L (3.5-5.1); Sodium 134 mmol/L (136-145); Total Protein 6.9 g/dL (6.6-8.7)
[2021-05-31 23:30] LABS: SARS Covid-2 Antigen Negative (Negative)
[2021-05-31] MEDS: azithromycin 250 mg Tablet 500 MG PO (23:40)
[2021-05-31] MEDS: ipratropium-albuterol 3 mL Neb 6 ML INHALATION (23:44)
[2021-05-31 23:45] VITALS: PULSE 62; RESP 14; O2SAT 94
[2021-05-31 23:50] VITALS: BP 141/77; PULSE 78; RESP 20; O2SAT 95
== END 2021-05-31 23:50 | disposition home or self-care (01) ==
PROVIDERS: Emergency Medicine; Emergency Provider Physician Assistant; PCP Internal Medicine
DX: J18.0 Bronchopneumonia, unspecified organism (principal); Z79.01 Long term (current) use of anticoagulants; Z79.82 Long term (current) use of aspirin; Z79.4 Long term (current) use of insulin; E11.9 Type 2 diabetes mellitus without complications; J43.9 Emphysema, unspecified; I10 Essential (primary) hypertension; F17.210 Nicotine dependence, cigarettes, uncomplicated; Z20.822 Contact with and (suspected) exposure to COVID-19
CPT/HCPCS: 36415; 71045; 80053; 85025; 87040; 87426; 94640; 96372; 99283; J2930; Q0144

== ENCOUNTER → 2021-06-09 07:50 | Outpatient (BNVA) | payer MEDICAID, SELFPAY | PROVIDERS: PCP Internal Medicine; Visit Provider Anesthesiology | DX: M54.50 Low back pain, unspecified (principal); M47.812 Spondylosis without myelopathy or radiculopathy, cervical region; M50.30 Other cervical disc degeneration, unspecified cervical region; M25.50 Pain in unspecified joint; F17.200 Nicotine dependence, unspecified, uncomplicated; Z79.891 Long term (current) use of opiate analgesic; Z71.6 Tobacco abuse counseling | CPT/HCPCS: 99214 ==

== ENCOUNTER 2021-07-07 14:58 | Outpatient (CLI) | payer MEDICAID, SELFPAY ==
[2021-07-07 15:28] LABS: Basophils # 0.1 10^3/uL (0.0-0.1); Basophils % 1.6 %; Eosinophils # 0.1 10^3/uL (0.0-0.8); Eosinophils % 1.1 %; Hemoglobin 12.9 g/dL (11.5-15.3); Lymphocytes # 1.2 10^3/uL (0.8-4.8); Lymphocytes % 21.2 %; Mean Corpuscular HGB Conc 31.5 g/dL (30.0-36.0); Mean Corpuscular Hemoglobin 29.1 pg (28.0-34.0); Mean Corpuscular Volume 92.3 fl (81-99); Mean Platelet Volume 10.3 fL (7.4-10.4); Monocytes # 0.2 10^3/uL (0.2-0.9); Monocytes % 3.4 %; Neutrophils # 4.06 10^3/uL (1.8-7.7); Neutrophils % 72.3 %; Nucleated Red Blood Cells % 0 %; Platelet Count 212 10^3/cmm (130-400); Red Blood Count 4.44 10^6/uL (4.1-5.3); Red Cell Distribution Width 13.2 % (12.1-15.1); White Blood Count 5.6 10^3/uL (4.0-10.0)
[2021-07-07 15:43] LABS: Erythrocyte Sedimentation Rate 25 mm/hr (0-15)
[2021-07-07 15:54] LABS: Alanine Aminotransferase 12 U/L (0-33); Albumin Level 3.2 g/dL (3.5-5.2); Alkaline Phosphatase 154 IU/L (35-105); Anion Gap 18.3 (5-19); Aspartate Amino Transferase 20 U/L (0-32); Blood Urea Nitrogen 10 mg/dL (6-20); Calcium 7.9 mg/dL (8.5-10.5); Carbon Dioxide 15 mmol/L (22-29); Chloride 103 mmol/L (98-107); Globulin 3.5 g/dL (1.3-4.6); Glucose 378 mg/dL (65-115); Osmolality Calculated 287 mOsm/kg (285-295); Potassium 5.3 mmol/L (3.5-5.1); Sodium 131 mmol/L (136-145); Total Bilirubin 0.4 mg/dL (0.15-1.2); Total Protein 6.7 g/dL (6.6-8.7)
== END 2021-07-07 14:59 | disposition home or self-care (01) ==
LOC: LAB 15:04
PROVIDERS: PCP Internal Medicine; Visit Provider Internal Medicine
DX: M06.9 Rheumatoid arthritis, unspecified (principal); M81.0 Age-related osteoporosis without current pathological fracture; Z79.891 Long term (current) use of opiate analgesic; Z79.899 Other long term (current) drug therapy
CPT/HCPCS: 80053; 85025; 85651; 86140

== ENCOUNTER → 2021-07-14 09:11 | Outpatient (BNVA) | payer MEDICAID, SELFPAY | PROVIDERS: PCP Internal Medicine; Visit Provider Internal Medicine | DX: M06.9 Rheumatoid arthritis, unspecified (principal); L40.9 Psoriasis, unspecified; Z79.891 Long term (current) use of opiate analgesic; Z79.899 Other long term (current) drug therapy; Z79.52 Long term (current) use of systemic steroids; F17.200 Nicotine dependence, unspecified, uncomplicated | CPT/HCPCS: 99214 ==

== ENCOUNTER → 2021-08-04 11:03 | Outpatient (BNVA) | payer MEDICAID, SELFPAY | PROVIDERS: PCP Internal Medicine; Visit Provider Anesthesiology | DX: G89.29 Other chronic pain (principal); M54.40 Lumbago with sciatica, unspecified side; M54.2 Cervicalgia; M25.50 Pain in unspecified joint; F17.210 Nicotine dependence, cigarettes, uncomplicated; Z79.891 Long term (current) use of opiate analgesic | CPT/HCPCS: 99214 ==

== ENCOUNTER 2021-09-29 09:24 | Outpatient (CLI) | payer MEDICAID, SELFPAY ==
[2021-09-29 10:08] LABS: Basophils # 0.1 10^3/uL (0.0-0.1); Basophils % 1.6 %; Eosinophils # 0.3 10^3/uL (0.0-0.8); Eosinophils % 4.5 %; Hematocrit 38.9 % (37.0-47.0); Hemoglobin 12.4 g/dL (11.5-15.3); Lymphocytes # 1.7 10^3/uL (0.8-4.8); Lymphocytes % 29.9 %; Mean Corpuscular HGB Conc 31.9 g/dL (30.0-36.0); Mean Corpuscular Hemoglobin 28.7 pg (28.0-34.0); Mean Platelet Volume 10.2 fL (7.4-10.4); Monocytes # 0.3 10^3/uL (0.2-0.9); Monocytes % 5.9 %; Neutrophils # 3.35 10^3/uL (1.8-7.7); Neutrophils % 57.9 %; Nucleated Red Blood Cells % 0 %; Platelet Count 217 10^3/cmm (130-400); Red Blood Count 4.32 10^6/uL (4.1-5.3); Red Cell Distribution Width 13.1 % (12.1-15.1); White Blood Count 5.8 10^3/uL (4.0-10.0)
[2021-09-29 10:35] LABS: Alanine Aminotransferase 11 U/L (0-33); Albumin Level 3.1 g/dL (3.5-5.2); Alkaline Phosphatase 146 IU/L (35-105); Anion Gap 14.6 (5-19); Aspartate Amino Transferase 16 U/L (0-32); Blood Urea Nitrogen 11 mg/dL (6-20); C Reactive Protein 8.9 mg/L (0.0-4.9); Calcium 8.8 mg/dL (8.5-10.5); Carbon Dioxide 22 mmol/L (22-29); Chloride 106 mmol/L (98-107); Globulin 3.1 g/dL (1.3-4.6); Glomerular Filtration Rate 65.5 mL/min (90-130); Glucose 283 mg/dL (65-115); Osmolality Calculated 296 mOsm/kg (285-295); Potassium 4.6 mmol/L (3.5-5.1); Sodium 138 mmol/L (136-145); Total Bilirubin 0.3 mg/dL (0.15-1.2); Total Protein 6.2 g/dL (6.6-8.7)
[2021-09-29 11:02] LABS: Erythrocyte Sedimentation Rate 43 mm/hr (0-15)
== END 2021-09-29 09:25 | disposition home or self-care (01) ==
LOC: LAB 09:26
PROVIDERS: PCP Internal Medicine; Visit Provider Internal Medicine
DX: M06.9 Rheumatoid arthritis, unspecified (principal); Z79.899 Other long term (current) drug therapy
CPT/HCPCS: 36415; 80053; 85025; 85651; 86140

== ENCOUNTER → 2021-09-30 11:07 | Outpatient (BNVA) | payer MEDICAID, SELFPAY | PROVIDERS: PCP Internal Medicine; Visit Provider Internal Medicine | DX: M06.9 Rheumatoid arthritis, unspecified (principal); L40.9 Psoriasis, unspecified; D84.9 Immunodeficiency, unspecified; Z79.899 Other long term (current) drug therapy; F17.210 Nicotine dependence, cigarettes, uncomplicated | CPT/HCPCS: 99214 ==

== ENCOUNTER → 2021-12-02 08:52 | Outpatient (BNVA) | payer MEDICAID, SELFPAY | PROVIDERS: PCP Internal Medicine; Visit Provider Internal Medicine Pulmonary Disease | DX: R06.02 Shortness of breath (principal); J43.2 Centrilobular emphysema; D84.9 Immunodeficiency, unspecified; M06.9 Rheumatoid arthritis, unspecified; F17.210 Nicotine dependence, cigarettes, uncomplicated; Z86.16 Personal history of COVID-19; I10 Essential (primary) hypertension; E11.8 Type 2 diabetes mellitus with unspecified complications | CPT/HCPCS: 99214 ==

== ENCOUNTER 2021-12-15 08:02 | Outpatient (CLI) | payer MEDICAID, SELFPAY ==
--- NOTE | 2021-12-15 08:13 | MM_ITS ---
WS: [id number] VIEWS: MLO and CC views both breasts. 3D digital tomosynthesis is also included in this exam. Comparison made with prior exam of 07/23/2009, 08/15/2014, 02/03/2016, 12/14/2017, 05/01/2019, 09/09/2020.. Findings: There was no sign of mass, architectural distortion or suspicious calcification in either breast. Fa tty MM/[place] [id number] Impression: BI-RADS: 2-Benign FOLLOW-UP: 1 Year Follow-up This mammogram was also analyzed by the Computer Aided Detection System R2 Imag e Professor Of Nursing.
== END 2021-12-15 08:03 | disposition home or self-care (01) ==
LOC: RAD 08:03
PROVIDERS: PCP Internal Medicine; Visit Provider Internal Medicine
DX: Z12.31 Encounter for screening mammogram for malignant neoplasm of breast (principal)
CPT/HCPCS: 77063; 77067

== ENCOUNTER → 2022-01-19 10:51 | Outpatient (BNVA) | payer MEDICAID, SELFPAY | PROVIDERS: PCP Internal Medicine; Visit Provider Internal Medicine | DX: E11.9 Type 2 diabetes mellitus without complications (principal); Z79.4 Long term (current) use of insulin; J43.9 Emphysema, unspecified; Z86.16 Personal history of COVID-19; F17.210 Nicotine dependence, cigarettes, uncomplicated; M06.9 Rheumatoid arthritis, unspecified | CPT/HCPCS: 99214 ==

== ENCOUNTER 2022-01-24 06:58 | Outpatient (CLI) | payer MEDICAID, SELFPAY ==
[2022-01-24 08:17] VITALS: BMI 38.2
--- NOTE | 2022-01-24 08:23 | ECG_ITS ---
[facility] Test Date: 2022-01-24 Pat Name: Erin Kelley Department: Room: Gender: Female Software Client Architect: Jana Junior : 1970 Requested By: Nel Castro Order Number: [id number] Shilpa MD: Jozef Greer M.D. Interpretive Statements NAME OF STUDY: LEXISCAN SESTAMIBI STRESS TEST INDICATION: Chest Pain, PROCEDURE: At the baseline, the EKG revealed normal sinus rhythm with a diffuse nonspecific ST-T changes. The baseline blood pressure was 153/76 mm Hg with a heart rate of 60 beats/min. Lexiscan was infused over a period of 20 seconds. A total of 0.4 milligrams of Lexiscan was infused. The stress phase was continued for a total of 5 minutes. Heart rate at the end of the stress phase was 70 with a blood pressure 138/71. The EKG at the peak infusion revealed no significant changes. Sestamibi was injected 20 seconds after the Lexiscan infusion. Blood pressure at the end of the recovery phase was 152/73 with a heart rate of 70 per minute. CONCLUSION: 1. No significant EKG changes with the LexiScan infusion 2. No LexiScan induced chest pain or cardiac arrhythmia 3. Normal blood pressure and heart rate response 4. Sestamibi/sestamibi perfusion scan pending; see separate report. Electronically Signed On 01-24-2022 14:07:19 CDT by Jozef Greer M.D. [id number]
--- NOTE | 2022-01-24 08:24 | NMCV_ITS ---
NM kyle perf SPECT r/s* [id number] Erin Kelley Age: 51 Gender: F : 1970 Exam Date: 01/24/2022 08:24 Ordering Phys: Nel Peacock MD Technologist: REGINALD Bauer Exam Location: [facility] Indications: CHEST PAIN STRESS TEST [facility] IMAGE PROTOCOL Rest/Stress 1 Lexiscan Day Radiopharmaceutical Dose (mCi) Administration Site Administered by Rest: Tc-99m 10.8 IV REGINALD Walters Sestamibi Stress:Tc-99m 32.9 IV REGINALD Walters Sestamibi Rest: 24-Jan-2022 60 Discovery 630 Stress: 24-Jan-2022 30 Discovery 630 0.4mg Lexiscan. Supine position only as patient was unable to lay prone. SPECT RESULTS Technical Quality: Excellent Raw Data Analysis: Normal, Breast attenuation Image Corrections: No attenuation or motion correction applied Summed Stress Score: 3 Summed Rest Score: 0 Summed Difference Score: 3 PERFUSION FINDINGS Small to moderate area of slightly decreased tracer uptake was noted in the basal and mid anterolateral and mid anterior region. Significant reversibility was noted in this region at rest FUNCTIONAL RESULTS (calculated via Gated SPECT) Stress Image LV EF (%): 74 Stress EDV (mL):66 TID: 0.82 Stress ESV (mL):17 FUNCTIONAL FINDINGS: Segmental wall motion analysis revealed a slightly dyskinetic LV apex IMPRESSIONS 1. Myocardial perfusion imaging revealing small to moderate area of slightly decreased tracer uptake in the anterolateral and anterior region with reversibility, suggestive of ischemia in the distribution of the left circumflex artery/left anterior descending artery. 2. Normal LV ejection fraction 74%. 3. LV wall motion analysis revealing small area of dyskinesia in the LV apex. 4. Normal LV volume No similar previous studies are available for comparison Dr Jozef Greer MD [facility] (Electronically Signed) Final Date: 24 January 2022 14:10 S
[2022-01-24] MEDS: aminophylline 25 mg/mL SDV 10 mL IVP (09:27)
[2022-01-24 09:28] VITALS: BP 138/71; PULSE 73
== END 2022-01-24 06:59 | disposition home or self-care (01) ==
LOC: CDL 06:59
PROVIDERS: PCP Internal Medicine; Visit Provider Internal Medicine
DX: R07.9 Chest pain, unspecified (principal)
CPT/HCPCS: 78452; 93017; A9500; J0280

== ENCOUNTER 2022-02-24 08:10 | Outpatient (CLI) | payer MEDICAID, SELFPAY ==
--- NOTE | 2022-02-24 08:27 | USCV_ITS ---
Erin Kelley Age: 51 Gender: F : 1970 Exam Date: 02/24/2022 08:59 Ordering Phys: Nel Peacock MD Technologist: JAMILAH [place] [facility] [place]: PERICARDIAL EFFUSION, CHEST PAIN BP: 122 / 59 HR: 58 Rhythm: Sinus Technical Quality: Adequate MEASUREMENTS (Male / Female) Normal Values 2D ECHO LV Diastolic Diameter PLAX 4.2 cm 4.2 - 5.9 / 3.9 - 5.3 cm LV Systolic Diameter PLAX 2.8 cm IVS Diastolic Thickness 1.4 cm 0.6 - 1.0 / 0.6 - 0.9 cm IVS Systolic Thickness 2.2 cm LVPW Diastolic Thickness 1.3 cm 0.6 - 1.0 / 0.6 - 0.9 cm LVPW Systolic Thickness 1.8 cm LVOT Diameter 2.0 cm LV Ejection Fraction 2D Teich 63.5 % LV Ejection Fraction MOD 2C 55.4 % LV Ejection Fraction 2C AL 63.0 % LA Diameter 3.4 cm LA Width 3.2 cm LA Height 5.1 cm RA Width 3.3 cm RA Height 4.5 cm Aorta at Sinotubular Diameter 2.6 cm M-MODE Aortic Annulus Diameter 3.2 cm LA Ao Ratio MM 1.1 MV E Point Septal Separation 0.2 cm DOPPLER AV Peak Velocity 127.0 cm/s LVOT Peak Velocity 86.0 cm/s AV Area Cont Eq vti 2.3 cm squared AV Area Cont Eq pk 2.2 cm squared MV Peak Velocity 95.0 cm/s MV Area PHT 3.5 cm squared Mitral E to A Ratio 1.2 MV E' Velocity 51.0 cm/s Mitral E to MV E' Ratio 10.0 Mitral E to LV E' Lateral Ratio 9.7 Mitral E to LV E' Septal Ratio 10.4 TR Peak Velocity 270.4 cm/s TR Peak Gradient 29.2 mmHg TR Mean Velocity 236.0 cm/s TR Mean Gradient 23.3 mmHg TR Velocity Time Integral 102.3 cm TV Peak E Velocity 68.0 cm/s Right Atrial Pressure 8.0 mmHg Pulmonary Artery Systolic Pressu 37.2 mmHg PV Peak Velocity 97.0 cm/s RV Acceleration Time 0.1 s RV Ejection Time 0.3 s RV AcT/ET 0.5 FINDINGS Left Ventricle Left ventricle is normal in size. LV systolic function is normal with EF 55 to 60%. No regional wall motion abnormalities are seen. Diastolic function is normal. Right Ventricle Normal in size and function Right Atrium Normal in size Left Atrium Normal in size Mitral Valve Structurally normal mitral valve. Mild mitral regurgitation. No significant stenosis. Aortic Valve Structurally normal valve. No significant stenosis or regurgitation is seen. Tricuspid Valve Mild tricuspid regurgitation. PASP is 35 to 40 mmHg. This is consistent with mild pulmonary hypertension Pulmonic Valve Not well-visualized Pericardium Normal Aorta Normal in size IVC CONCLUSIONS Technically limited quality echocardiogram because of poor ultrasonic windows. LV systolic function is normal with EF 55 to 60%. Diastolic function is normal. Mild mitral regurgitation. Mild tricuspid regurgitation. Mild pulmonary hypertension. Compared to prior echocardiogram from 2020, no significant changes seen. No significant pericardial effusion is present. Terrell Macias MD (Electronically Signed) Final Date: 08 March 2022 12:26 S
== END 2022-02-24 08:11 | disposition home or self-care (01) ==
LOC: RAD 08:11
PROVIDERS: PCP Internal Medicine; Visit Provider Internal Medicine
DX: I31.3 Pericardial effusion (noninflammatory) (principal); I08.1 Rheumatic disorders of both mitral and tricuspid valves; I27.20 Pulmonary hypertension, unspecified
CPT/HCPCS: 93306

== ENCOUNTER 2022-03-01 12:34 | Outpatient (CLI) | payer MEDICAID, SELFPAY ==
--- NOTE | 2022-03-01 13:00 | CT_ITS ---
WS: [id number] LDCT LUNG CANCER SCREENING HISTORY: lung screening TECHNIQUE: Axial imaging performed from the apices to 1 cm below the costophrenic angles. Coronal and sagittal reformats are submitted with axial MIP series. All CT scans at [facility] use at least one of these dose optimization techniques: automated exposure control; mA and/or kV adjustment per patient size (includes targeted exams where dose is matched to clinical indication); or iterativ e reconstruction. DLP: 77.79 mGy.cm DIvol: Mean CTDIvol: 1.60 (mGy) COMPARISON: 08/14/2020 Diagnostic quality: Satisfactory Lung Nodules: No nodule or mass identified. Severe centrilobular emphysema. Long-term stability pleur al thickening along the inferior LEFT major fissure measures 12 x 5 mm. Heart: Normal size heart. No effusion. Moderate vascular calcifications in the coronary arteries. Other findings: Mild atherosclerosis aorta. Pulmonary artery size is slightly enlarged. No mediastina l or hilar adenopathy identified. Small benign lymph nodes are noted within the mediastinum. Hepatic steatosis. Prior cholecystectomy. CT/CT lung screening [id number] IMPRESSION: LUNG-RADS: 1-Negative FOLLOW UP: 12 Month: Continue annual screening with LDCT OTHER FINDINGS (S MODIFIER): None.
--- NOTE | 2022-03-01 13:40 | PFTS_ITS ---
Date of Study:03/01/22 Date of Dictation: MECHANICS: Forced vital capacity (FVC) is . Forced expiratory volume in one second (FEV1) is . FEV1/FVC is . FLOW VOLUME LOOP: . LUNG VOLUMES: Total lung capacity (TLC) is . Residual volume (RV) is . DIFFUSING CAPACITY FOR CARBON MONOXIDE: . INTERPRETATION: The pulmonary function tests are . mechanics and lung volumes. Gas exchange (DLCO) is . MTDD
== END 2022-03-01 12:35 | disposition home or self-care (01) ==
PROVIDERS: PCP Internal Medicine; Visit Provider Internal Medicine Cardiovascular Disease
DX: Z12.2 Encounter for screening for malignant neoplasm of respiratory organs (principal); F17.210 Nicotine dependence, cigarettes, uncomplicated; J43.9 Emphysema, unspecified
CPT/HCPCS: 71271; 94060; 94726; 94729; J7611

== ENCOUNTER → 2022-03-02 10:41 | Outpatient (BNVA) | payer MEDICAID, SELFPAY | PROVIDERS: PCP Internal Medicine; Visit Provider Internal Medicine Cardiovascular Disease | DX: I10 Essential (primary) hypertension (principal); I73.9 Peripheral vascular disease, unspecified; M06.9 Rheumatoid arthritis, unspecified; J43.2 Centrilobular emphysema; E11.9 Type 2 diabetes mellitus without complications; Z79.4 Long term (current) use of insulin; F17.210 Nicotine dependence, cigarettes, uncomplicated | CPT/HCPCS: 99214 ==

== ENCOUNTER → 2022-04-19 09:42 | Outpatient (BNVA) | payer MEDICAID, SELFPAY | PROVIDERS: PCP Internal Medicine; Visit Provider Internal Medicine | DX: M05.9 Rheumatoid arthritis with rheumatoid factor, unspecified (principal); L40.9 Psoriasis, unspecified | CPT/HCPCS: 36415; 80053; 85025; 85651; 86140; 99214 ==

== ENCOUNTER → 2022-06-08 15:16 | Outpatient (BNVA) | payer MEDICAID, SELFPAY | PROVIDERS: PCP Internal Medicine; Visit Provider Internal Medicine Cardiovascular Disease | DX: R07.9 Chest pain, unspecified (principal); I10 Essential (primary) hypertension; F17.210 Nicotine dependence, cigarettes, uncomplicated | CPT/HCPCS: 99214 ==

== ENCOUNTER 2022-07-26 14:51 | Outpatient (CLI) | payer MEDICAID, SELFPAY ==
--- NOTE | 2022-07-26 | XR_ITS ---
WS: [id number] Left knee, 3 views, 07/26/2022 Clinical Data: KNEE PAIN LEFT Comparison: Left knee, 03/24/2021. Findings: No fractures or dislocations are seen. The joint spaces are normal. The patella is intact. The soft t issues are unremarkable. XR/XR knee LT 3V* [id number] Impression: Negative left knee. Kellgren-Yasmany Classification: NA
== END 2022-07-26 14:52 | disposition home or self-care (01) ==
PROVIDERS: PCP Internal Medicine; Visit Provider Nurse Practitioner Family
DX: M25.562 Pain in left knee (principal)
CPT/HCPCS: 73562

== ENCOUNTER 2022-08-04 11:42 | Emergency (ER) | payer MEDICAID, SELFPAY ==
[2022-08-04 11:46] VITALS: BMI 36.6
--- NOTE | 2022-08-04 11:46 | ED_ITS ---
HPI - Extremity Injury (Lower) General: Chief Complaint: Extremity Injury, Lower Stated Complaint: fell July 15, left knee pain Time Seen by Provider: 08/04/22 11:45 Source: patient Mode of arrival: wheelchair Limitations: no limitations History of Present Illness: Patient is a 51-year-old female who presents to ED today for evaluation of left knee pain/injury. Patient states she initially injured the knee 3 weeks ago after falling onto it. Following the injury, she had negative x-rays performed by her PCP. Patient states she seemed to be improving with conservative therapies but states over the past 2 days she has noticed fairly significant increased pain in the knee joint and has noticed swelling as well. She thinks she may have re-injured it. She states pain has limited her from walking over the past 2 days. She has not noticed any redness to the joint. She does report calf pain when asked. MD complaint: knee injury Onset (ago): week(s) Injury: Left: knee Place: home Severity: severe Relieving factors: immobilization Exacerbating factors: weight bearing, movement and palpation Associated symptoms: Reports inability to bear weight (x 2 days) Other symptoms: none Review of Systems Const: Denies: fever(s), chills, body aches, fatigue or malaise Card: Denies: chest pain Resp: Denies: dyspnea or pain on inspiration Musc: Reports: extremity pain, joint pain (L knee), joint swelling (L knee) and joint warmth; Denies: neck pain, back pain, extremity swelling or joint redness Neuro: Reports: difficulty walking (secondary to pain in left knee); Denies: numbness in extremities, weakness in extremities or sensory changes [facility] ED PFSH: Medical History Avulsion fracture of left ankle Cervical spondylosis Chronic anticoagulation Cigarette smoker motivated to quit Claudication Closed fracture of right distal fibula COVID-19 DDD (degenerative disc disease), cervical Diabetes Emphysema/COPD Essential hypertension Fibromyalgia Immunocompromised Long-term current use of opiate analgesic Onychodystrophy Osteoporosis Pain, joint, multiple sites Portal vein thrombosis Rheumatoid arthritis Spondylosis of lumbar region without myelopathy or radiculopathy Syncope Tobacco use disorder Surgical History H/O dilation and curettage Hx laparoscopic cholecystectomy Hx of section (~1989) Hx of hysterectomy Family History Mother Stroke Cancer SKIN CANCER Sister Stroke Other Diabetes Myocardial infarct Denies family history of Anesthesia complication Bleeding disorder Social History Smoking and tobacco status: current every day smoker cigarettes Years cigare ttes smoked: 40 [ Other cigarette details: 3 cigarettes/day currently] Quit status (tobacco): considering quitting Second hand smoke exposure: Yes Smoking risk assessment/counseling performed?: Yes Alcohol intake: former Caregiver/support person: Yes Lives independently: Yes Household members: spouse Marital status: Current occupational status: disabled Pets and animals: Yes History of recent travel: No Current gender identity: Female Physical Exam Const: COMMON NORMALS: no acute distress, patient oriented x3, no limitations, healthy appearing, alert and well nourished GENERAL APPEARANCE: cooperative Resp: COMMON NORMALS: normal respiratory effort and clear to auscultation bilaterally AUSCULTATION: clear to auscultation bilaterally Cardio: COMMON NORMALS: regular rate and regular rhythm RATE: regular rate RHYTHM: regular rhythm Extremity: COMMON NORMALS: capillary refill normal GENERAL: Yes normal exam except as noted LEFT LOWER EXTREMITY: Yes knee joint (TTP anterior L knee; effusion noted) Left knee: Yes neurovascular exam (normal) and Yes lower leg (reports calf pain and positive Octavia's; no obvious swelling noted) Left lower leg: Yes neurovascular exam (normal) Neuro: COMMON NORMALS: patient oriented x3, moves all extremities, no focal motor deficits and no sensory deficits noted SENSORIUM/ORIENTATION: Yes alert Skin: TRAUMA: no lacerations or abrasions MDM - Extremity Injury (Lower) Medical Decision Making US negative for DVT/Kessler's. XR showing suprapatellar effusion/no fracture. Suspect internal derangement of left knee given length of and worsening symptoms. Will GENE wrap. She has walker/wheel chair at home she states she can use. Reports she cannot use crutches. Recommend she return to PCP for further evaluation that could include continuing conservative therapies, physical therapy, and/or MRI imaging. Return to ED precautions given. Lab Data Radiology Impressions Knee X-Ray 08/04/22 11:47 IMPRESSION: 1. New joint effusion in the suprapatellar bursa. No fracture or dislocation. Discharge Plan Discharge Patient Disposition: Home Clinical Impression: Effusion of left knee, Internal derangement of left knee Condition: Stable Prescriptions: No Action omeprazole 40 mg capsule,delayed release(DR/EC) 40 mg PO DAILY melatonin 3 mg capsule 3 mg PO DAILY metoprolol tartrate 25 mg tablet 25 mg PO BID Qty: 180 3RF Eliquis 5 mg tablet 5 mg PO BID gabapentin 300 mg capsule 300 mg PO TID 30 Days Qty: 90 1RF oxycodone 15 mg tablet 15 mg PO BID PRN (Reason: pain) 30 Days Qty: 60 0RF Rx Instructions: Fill on or after 08/19/21 oxycodone 15 mg tablet 15 mg PO BID PRN (Reason: pain) 30 Days Qty: 60 0RF Rx Instructions: fill on or after 09/17/21 diclofenac sodium [Voltaren Arthritis Pain] 1 % gel 4 g topical QID Qty: 100 2RF Rx Instructions: apply to single knee, ankle, foot; for foot includes sole/toes/top of foot rosuvastatin [Crestor] 20 mg tablet 20 mg PO DAILY Lantus U-100 Insulin 100 unit/mL solution 50 unit SUBCUT DAILY@0800 ropinirole 2 mg tablet 3 mg PO BEDTIME DME: Walker Unit 1 ea .Route .prn Qty: 1 0RF Rx Instructions: .prn1 walker triamcinolone acetonide 0.1 % ointment 1 applic topical DAILY Qty: 80 0RF tamsulosin [Flomax] 0.4 mg capsule 0.4 mg PO DAILY Breztri Aerosphere 160-9-4.8 mcg/actuation HFA aerosol inhaler 2 inh inhalation BID Qty: 10.7 3RF enalapril maleate 10 mg tablet 5 mg PO DAILY silver sulfadiazine [Silvadene] 1 % cream 1 applic topical BID PRN Rx Instructions: apply a 1.5 mm thickness, use on toes fluticasone propion-salmeterol [Advair Diskus] 100-50 mcg/dose blister with device 1 inh inhalation BID isosorbide mononitrate 30 mg tablet extended release 24 hr 15 mg PO BID Qty: 90 3RF nitroglycerin [Nitrostat] 0.4 mg tablet, sublingual 0.4 mg SUBLINGUAL Q5M PRN (Reason: chest pain) 30 Days Qty: 25 6RF Rx Instructions: until response; do not exceed 3 doses per episode nicotine 14 mg/24 hr patch 24 hour 1 patch transdermal DAILY Qty: 28 0RF Rx Instructions: use one per 24 hours prednisone 5 mg tablet 5 mg PO DAILY PRN (Reason: FLARES) Qty: 60 2RF Combivent Respimat 20-100 mcg/actuation mist 1 puff INHALATION Q6H PRN (Reason: Shortness Of Breath) Qty: 4 5RF clobetasol 0.05 % cream 1 applic topical DAILY Qty: 45 1RF albuterol sulfate [Ventolin HFA] 90 mcg/actuation HFA aerosol inhaler 2 puff inhalation Q6H PRN (Reason: shortness of breath or wheezing) Qty: 8.5 3RF Orencia 125 mg/mL syringe 125 mg SUBCUT .qweek Qty: 4 5RF epinephrine [EpiPen 2-Carrington] 0.3 mg/0.3 mL Auto-Injector See Rx Instructions .ROUTE .COMPLEX PRN (Reason: Allergic Reaction) Rx Instructions: DIRECTED PRN insulin aspart U-100 [Novolog FlexPen U-100 Insulin] 100 unit/mL (3 mL) insulin pen See Rx Instructions .ROUTE .COMPLEX Rx Instructions: PER SLIDING SCALE Glucagon (HCl) Emergency Kit 1 mg Recon Soln 1 mg SUBCUT Q20M PRN (Reason: blood sugar) Qty: 0 albuterol sulfate 2.5 mg /3 mL (0.083 %) Solution For Nebulization 2.5 mg INHALATION Q6H PRN (Reason: Shortness Of Breath) Aspir-81 81 mg Tablet,Delayed Release (Dr/Ec) 81 mg PO DAILY@0800 Discharge Orders: Discharge ED (Routine); Ordered 08/04/22 Ordered By: Manda Puentes Referrals: Nel Peacock MD [Primary Care Provider] - Patient Instructions: RICE Therapy Activity Restrictions/Additional Instructions: As we discussed you need to keep your knee wrapped for compression/support, minimal weightbearing as tolerated, ice and elevation. You need to follow-up with primary care for further instruction and evaluation that could include physical therapy and/or MRI imaging of your knee if symptoms do not begin to improve. Coding Level of Care Code ED Food Preparation Kitchen Aide for Chg Fwd Exam Detailed
--- NOTE | 2022-08-04 11:47 | XR_ITS ---
WS: [id number] Exam: XR knee LT 3V* [id number] Date/Time of Exam: 08/04/2022 11:50 AM Reason For Exam: fall/injury/pain Comparison 07/26/2022. No acute fracture or dislocation. New joint effusion in the suprapatellar bursa. Soft tissues are oth erwise unremarkable. Joint compartments are preserved. XR/XR knee LT 3V* [id number] IMPRESSION: 1. New joint effusion in the suprapatellar bursa. No fracture or dislocation.
--- NOTE | 2022-08-04 11:55 | USCV_ITS ---
Erin Kelley Age: 51 Gender: F : 1970 Exam Date: 08/04/2022 12:15 Ordering Phys: Manda Puentes Technologist: APRYL [place] [facility] [facility] [place]ication: SWELLING, PAIN. R/O BAKERS HISTORY: Lower extremity swelling. Lower extremity pain. PROCEDURES: Venous duplex imaging was performed in only the left lower extremity. The following venous structures were evaluated: common femoral vein, profunda vein, proximal portion of the greater saphenous vein, superficial femoral vein, and the popliteal vein. In addition, the posterior tibial and peroneal trunk were evaluated. Serial compression, augmentation maneuvers, and spectral Doppler flow evaluation were performed. FINDINGS: No evidence of DVT seen in any vessel visualized at this time. No Kessler's cyst seen at this time CONCLUSIONS No evidence of left lower extremity DVT. Jhonny Arroyo MD (Electronically Signed) Final Date: 04 August 2022 17:18 S
== END 2022-08-04 13:02 | disposition home or self-care (01) ==
PROVIDERS: Emergency Provider Physician Assistant; PCP Internal Medicine
DX: M25.462 Effusion, left knee (principal); M23.92 Unspecified internal derangement of left knee; Z79.01 Long term (current) use of anticoagulants; Z79.82 Long term (current) use of aspirin; Z79.4 Long term (current) use of insulin; F17.210 Nicotine dependence, cigarettes, uncomplicated; E11.9 Type 2 diabetes mellitus without complications; J44.9 Chronic obstructive pulmonary disease, unspecified; I10 Essential (primary) hypertension
CPT/HCPCS: 73562; 93971; 99284

== ENCOUNTER 2022-09-05 21:30 | Emergency (ER) | payer MEDICAID, SELFPAY ==
--- NOTE | 2022-09-05 21:34 | XRR_ITS ---
PROCEDURE INFORMATION: Exam: XR Chest Exam date and time: 09/05/2022 10:27 PM Age: 51 years old Clinical indication: Pain; Chest pressure and left-sided; Additional info: Cp TECHNIQUE: Imaging protocol: Radiologic exam of the chest. Views: 1 view. COMPARISON: CT lung screening [id number] 03/01/2022 1:16 PM FINDINGS: Lungs: Right upper lobe calcified granuloma. Bibasilar atelectasis versus minimal infiltrate. Pleural spaces: Unremarkable. No pleural effusion. No pneumothorax. Heart/Mediastinum: Unremarkable. No cardiomegaly. Bones/joints: Unremarkable. XR/XR chest 1V portable [id number] IMPRESSION: Bibasilar atelectasis versus minimal infiltrate.
[2022-09-05 21:40] VITALS: BP 88/67; PULSE 70; RESP 18; TEMP 36.9; O2SAT 96; BMI 36.6
--- NOTE | 2022-09-05 21:46 | ECG_ITS ---
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 Measurements Intervals Clay Rate: 68 P: 55 IN: 170 QRS: 35 QRSD: 78 T: 63 QT: 421 QTc: 450 Interpretive Statements SINUS RHYTHM POSSIBLE LEFT ATRIAL ENLARGEMENT [-0.1mV P-WAVE IN V1/V2] MODERATE ST DEPRESSION [0.05+ mV ST DEPRESSION] Compared to ECG 08/16/2020 01:32:14 ST (T wave) deviation now present T-wave abnormality no longer present Electronically Signed On 09-05-2022 23:41:22 ARC WELDING MACHINE OPERATOR by Terrell Macias M.D. [email or web address]
[2022-09-05 22:10] LABS: Basophils # 0.1 10^3/uL (0.0-0.1); Basophils % 0.7 %; Eosinophils # 0.3 10^3/uL (0.0-0.8); Eosinophils % 3.9 %; Hematocrit 37.7 % (37.0-47.0); Hemoglobin 11.5 g/dL (11.5-15.3); Lymphocytes # 1.6 10^3/uL (0.8-4.8); Lymphocytes % 19.9 %; Mean Corpuscular HGB Conc 30.5 g/dL (30.0-36.0); Mean Corpuscular Hemoglobin 25.4 pg (28.0-34.0); Mean Corpuscular Volume 83.4 fl (81-99); Mean Platelet Volume 10.1 fL (7.4-10.4); Monocytes # 0.3 10^3/uL (0.2-0.9); Monocytes % 3.9 %; Neutrophils # 5.73 10^3/uL (1.8-7.7); Neutrophils % 71.5 %; Nucleated Red Blood Cells % 0 %; Platelet Count 193 10^3/cmm (130-400); Red Blood Count 4.52 10^6/uL (4.1-5.3); Red Cell Distribution Width 14.6 % (12.1-15.1)
[2022-09-05 22:21] LABS: INR 1.08 (0.8-1.2)
[2022-09-05 22:27] LABS: Troponin(5th) Baseline 15 ng/L (0-10)
--- NOTE | 2022-09-05 22:37 | ED_ITS ---
HPI - Chest Pain General: Chief Complaint: Chest Pain Stated Complaint: CP abdirahman B/P Time Seen by Provider: 09/05/22 22:34 History of Present Illness: Patient is a 51-year-old female comes to the ED with chest pain. Past medical history of hypertension, COPD and diabetes. Patient is not on any oxygen at home. Chest pain started approximately 3 hours ago while she was at rest. She states the pain was 10 out of 10 and it was on the left side of her chest and she describes the pain as a pressure and heaviness to her chest. Pain radiates into her left side of neck and left arm. She endorses some nausea at that time and some increased shortness of breath as well. She went to stand up and felt a little lightheaded. Chest pain has gotten better over the past 3 hours and here in the ED she says her chest pain is only a 3 out of 10. She feels like her pain is mild right now and does not want any pain medications currently. Patient is on a blood thinner and takes 81 mg of aspirin daily. Patient does see pack worker supervisor Dr. Bradshaw. Denies any fevers, upper respiratory symptoms, palpitations, vomiting, abdominal pain, bladder or bowel symptoms. Associated symptoms: Reports dyspnea; Deny abdominal pain, fever(s), nausea, palpitations or vomiting Review of Systems Const: Denies: fever(s), chills or fatigue Eyes: Denies: change in vision or eye discomfort ENMT: Denies: throat pain, odynophagia, nasal discharge or nasal congestion Card: Reports: chest pain; Denies: palpitations, edema, swelling of feet/ankles, dyspnea on exertion or orthopnea Resp: Reports: dyspnea; Denies: productive cough or non-productive cough GI: Denies: abdominal pain, nausea, vomiting, diarrhea, constipation or hematochezia : Denies: flank pain, dysuria or hematuria Musc: Denies: neck pain, back pain or extremity swelling Skin/Breast: Denies: rash or new lesions Neuro: Denies: headache(s), numbness in extremities or weakness in extremities [facility] ED PFSH: Medical History Avulsion fracture of left ankle Cervical spondylosis Chronic anticoagulation Cigarette smoker motivated to quit Claudication Closed fracture of right distal fibula COVID-19 DDD (degenerative disc disease), cervical Diabetes Emphysema/COPD Essential hypertension Fibromyalgia Immunocompromised Long-term current use of opiate analgesic Onychodystrophy Osteoporosis Pain, joint, multiple sites Portal vein thrombosis Rheumatoid arthritis Spondylosis of lumbar region without myelopathy or radiculopathy Syncope Tobacco use disorder Surgical History H/O dilation and curettage Hx laparoscopic cholecystectomy Hx of section (~1989) Hx of hysterectomy Family History Mother Stroke Cancer SKIN CANCER Sister Stroke Other Diabetes Myocardial infarct Denies family history of Anesthesia complication Bleeding disorder Social History Smoking and tobacco status: current every day smoker cigarettes Years cigarettes smoked: 40 [ Other cigarette details: 3 cigarettes/day currently] Quit status (tobacco): considering quitting Second hand smoke exposure: Yes Smoking risk assessment/counseling performed?: Yes Alcohol intake: former Caregiver/support person: Yes Lives independently: Yes Household members: spouse Marital status: Current occupational status: disabled Pets and animals: Yes Current gender identity: Female Physical Exam Const: COMMON NORMALS: no acute distress, patient oriented x3 and alert GENERAL APPEARANCE: cooperative and comfortable HENMT: COMMON NORMALS: normocephalic HEAD & SCALP: normocephalic MOUTH: Normal oral and palatal mucosa present THROAT: posterior oropharynx normal and uvula midline Neck/C-Spine: COMMON NORMALS: supple GENERAL: Yes normal visual inspection Resp: COMMON NORMALS: normal respiratory effort, No retractions and No use of accessory muscles AUSCULTATION: diminished lung sounds bilateral in the lower lung rao Cardio: COMMON NORMALS: regular rate, regular rhythm, S1 normal heart sound present, S2 normal heart sound present, No gallops present (Cardio), No clicks present (Cardio), No murmurs present (Cardio) and Peripheral pulses 2+ throughout RATE: regular rate RHYTHM: regular rhythm HEART SOUNDS: S1 normal heart sound present and S2 normal heart sound present PERIPHERAL PULSES: Peripheral pulses 2+ throughout GI: COMMON NORMALS: Normal to inspection, nondistended, normoactive bowel sounds present, Soft to palpation, non-tender and no masses PALPATION: Yes Soft to palpation : COMMON NORMALS: Yes no CVA tenderness BLADDER/KIDNEY EXAM: Yes no CVA tenderness Back/Pelvis: COMMON NORMALS: no CVA tenderness Extremity: COMMON NORMALS: normal to inspection and no pedal edema Neuro: COMMON NORMALS: patient oriented x3 SENSORIUM/ORIENTATION: Yes alert GAIT: Yes Normal gait present Skin: GENERAL SKIN EXAM: dry skin Course Vital Signs: Vital signs: Vital Signs Temperature 98.5 F 09/05/22 21:40 Pulse Rate 60 09/06/22 00:30 Respiratory Rate 16 09/06/22 00:30 Blood Pressure 103/61 09/06/22 00:30 Pulse Oximetry 94 09/06/22 00:30 Oxygen Delivery Me thod 09/05/22 21:40 MDM - Chest Pain Medical Decision Making Patient is a 51-year-old female comes to the ED with chest pain. Past medical history of hypertension, COPD and diabetes. Patient is not on any oxygen at home. Chest pain started approximately 3 hours ago while she was at rest. She states the pain was 10 out of 10 and it was on the left side of her chest and she describes the pain as a pressure and heaviness to her chest. Upon arrival to the ED for chest pain and already improved greatly. She did not want any pain medications. Vitals are stable. Patient appears nontoxic in no acute distress or pain. Rest of exam is unremarkable. First EKG showed some mild ST segment depression in 2-hour EKG had no change. First troponin was 15 and 2- hour troponin was 14.6 with a negative delta of 0.34. The rest of labs were unremarkable. Chest x-ray shows bibasilar atelectasis. Patient sees pack worker supervisor Dr. Bradshaw. I discussed patient case with Dr. Perez and we offered her admission or do outpatient follow-up with Dr. Bradshaw patient did not want to be admitted and would rather try outpatient treatment. Her chest pain had resolved before discharge. She was diagnosed with chest pain and told to contact pack worker supervisor tomorrow to set up an appointment for follow-up and further evaluation. She was given strict return to ED precautions. She has nitro at home and instructed to use it as needed for any chest pain. Patient understood and agreed with plan. Lab Data I reviewed the patient's lab results. 09/05/22 22:00 09/05/22 22:00 Radiology Impressions Chest X-Ray 09/05/22 21:34 IMPRESSION: Bibasilar atelectasis versus minimal infiltrate. Laboratory Results WBC 8.0 10^3/uL (4.0-10.0) 09/05/22 22:00 RBC 4.52 10^6/uL (4.1-5.3) 09/05/22 22:00 Hgb 11.5 g/dL (11.5-15.3) 09/05/22 22:00 Hct 37.7 % (37.0-47.0) 09/05/22 22:00 MCV 83.4 fl (81-99) 09/05/22 22:00 MCH 25.4 pg (28.0-34.0) L 09/05/22 22:00 MCHC 30.5 g/dL (30.0-36.0) 09/05/22 22:00 RDW 14.6 % (12.1-15.1) 09/05/22 22:00 Plt Count 193 10^3/cmm (130-400) 09/05/22 22:00 MPV 10.1 fL (7.4-10.4) 09/05/22 22:00 Neut % (Auto) 71.5 % 09/05/22 22:00 Lymph % (Auto) 19.9 % 09/05/22 22:00 Iroquois % (Auto) 3.9 % 09/05/22 22:00 Eos % (Auto) 3.9 % 09/05/22 22:00 Baso % (Auto) 0.7 % 09/05/22 22:00 Neut # (Auto) 5.73 10^3/uL (1.8-7.7) 09/05/22 22:00 Lymph # (Auto) 1.6 10^3/uL (0.8-4.8) 09/05/22 22:00 [place] # (Auto) 0.3 10^3/uL (0.2-0.9) 09/05/22 22:00 Eos # (Auto) 0.3 10^3/uL (0.0-0.8) 09/05/22 22:00 Baso # (Auto) 0.1 10^3/uL (0.0-0.1) 09/05/22 22:00 Nucleated RBC % (auto) 0 % 02/27/23 22:00 Nucleated RBCs # 0.0 /100WBC 09/05/22 22:00 PT 14.30 SECONDS (12.1-14.9) 09/05/22 22:00 INR 1.08 (0.8-1.2) 09/05/22 22:00 Sodium 134 mmol/L (136-145) L 09/05/22 22:00 Potassium 4.0 mmol/L (3.5-5.1) 09/05/22 22:00 Chloride 101 mmol/L (98-107) 09/05/22 22:00 Carbon Dioxide 20 mmol/L (22-29) L 09/05/22 22:00 Anion Gap 17.0 (5-19) 09/05/22 22:00 BUN 10 mg/dL (6-20) 09/05/22 22:00 Creatinine 0.7 mg/dL (0.5-0.9) 09/05/22 22:00 GFR Calculation 87.5 mL/min (90-130) L 09/05/22 22:00 Glucose 342 mg/dL (65-115) H 09/05/22 22:00 Calculated Osmolality 291 mOsm/kg (285-295) 09/05/22 22:00 Calcium 8.4 mg/dL (8.5-10.5) L 09/05/22 22:00 Total Bilirubin 0.4 mg/dL (0.15-1.2) 09/05/22 22:00 AST 31 U/L (0-32) 09/05/22 22:00 ALT 21 U/L (0-33) 09/05/22 22:00 Alkaline Phosphatase 178 U/L (35-105) H 09/05/22 22:00 Troponin T Baseline 15 ng/L (0-10) H 09/05/22 22:00 Troponin T 120 Minute 14.66 ng/L (0-10) H 09/05/22 23:36 Delta Troponin T -0.34 ABS# (0-10) L 09/05/22 23:36 Total Protein 5.9 g/dL (6.6-8.7) L 09/05/22 22:00 Albumin 3.2 g/dL (3.5-5.2) L 09/05/22 22:00 Globulin 2.7 g/dL (1.3-4.6) 09/05/22 22:00 EKG Data EKG 1: EKG interpretation date: 09/05/22 Interpretation: [address] [place] [address] Electrocardiograph Report Signed Patient: Erin Kelley Unit #: [id number] : 1970 /Sex: 51 / F ADM Date: 09/05/22 Loc: ER Room/Bed: Attending Dr: Ordering Provider/Ordering MD: Annamaria Perez MD Date of Service: 09/05/22 Procedure(s): ECG 12 lead EKG Accession Number(s): [id number] Report Number: [id number] ? [facility] ? Test Date:? ? 2022-09-05 Pat Name: ? ? Erin Kelley? Department: ? Patient ID: ? [id number] ? Room: ? Gender: ? ? ? Female ? Nursing Faculty: ? :? 1970 ? Requested By: Annamaria Perez Order Number: [id number]? Reading MD: ? Terrell Macias M.D. ? Measurements Intervals? [place]? Rate: ? 68 ? P:? 55 NH: ? 170? QRS:? 35 QRSD: ? 78 ? T:? 63 QT: ? 421? QTc:? 450? Interpretive Statements SINUS RHYTHM POSSIBLE LEFT ATRIAL ENLARGEMENT? [-0.1mV P-WAVE IN V1/V2] MODERATE ST DEPRESSION? [0.05+ mV ST DEPRESSION] Compared to ECG 08/16/2020 01:32:14 ST (T wave) deviation now present T-wave abnormality no longer present Electronically Signed On 09-05-2022 23:41:22 ENVELOPE FOLD OPERATOR by Terrell Macias M.D. [id number] Dictated By: Terrell Macias MD Signed By: Terrell Macias MD Signed Date/Time: 09/05/222342 DD/ 45 EKG 2: EKG interpretation date: 09/05/22 Interpretation: [email or web address] [address] Electrocardiograph Report Signed Patient: Erin Kelley Unit #: [id number] : 1970 Age/Sex: 51 / F ADM Date: 09/05/22 Loc: ER Room/Bed: Attending Dr: Ordering Provider/Ordering MD: Annamaria Perez MD Date of Service: 09/05/22 Procedure(s): ECG 12 lead EKG Accession Number(s): [id number] Report Number: [id number] ? [facility] ? Test Date:? ? 2022-09-05 Pat Name: ? ? Erin Kelley? Department: ? Patient ID: ? [id number] ? Room: ? Gender: ? ? ? Female ? Nursing Faculty: ? :? 1970 ? Requested By: Annamaria Perez Order Number: [id number]? Reading : ? Terrell Macias M.D. ? Measurements Intervals? [place]? Rate: ? 61 ? P:? 58 NH: ? 167? QRS:? 41 QRSD: ? 76 ? T:? 57 QT: ? 459? QTc:? 463? Interpretive Statements SINUS RHYTHM POSSIBLE LEFT ATRIAL ENLARGEMENT? [-0.1mV P-WAVE IN V1/V2] MODERATE ST DEPRESSION? [0.05+ mV ST DEPRESSION] Compared to ECG 09/05/2022 21:46:40 No significant changes Electronically Signed On 09-05-2022 23:42:56 ENVELOPE FOLD OPERATOR by Terrell Macias M.D. [id number] Dictated By: Terrell Macias MD Signed By: Terrell Macias MD Signed Date/Time: 09/05/222343 DD/ 39 Discharge Plan Discharge Patient Disposition: Home Clinical Impression: Chest pain Qualifiers: Chest pain type: unspecified Qualified Code(s): R07.9 - Chest pain, unspecified Condition: Stable Prescriptions: No Action omeprazole 40 mg capsule,delayed release(DR/EC) 40 mg PO DAILY melatonin 3 mg capsule 3 mg PO DAILY metoprolol tartrate 25 mg tablet 25 mg PO BID Qty: 180 3RF Eliquis 5 mg tablet 5 mg PO BID gabapentin 300 mg capsule 300 mg PO TID 30 Days Qty: 90 1RF oxycodone 15 mg tablet 15 mg PO BID PRN (Reason: pain) 30 Days Qty: 60 0RF Rx Instructions: Fill on or after 08/19/21 oxycodone 15 mg tablet 15 mg PO BID PRN (Reason: pain) 30 Days Qty: 60 0RF Rx Instructions: fill on or after 09/17/21 diclofenac sodium [Voltaren Arthritis Pain] 1 % gel 4 g topical QID Qty: 100 2RF Rx Instructions: apply to single knee, ankle, foot; for foot includes sole/toes/top of foot rosuvastatin [Crestor] 20 mg tablet 20 mg PO DAILY Lantus U-100 Insulin 100 unit/mL solution 50 unit SUBCUT DAILY@0800 ropinirole 2 mg tablet 3 mg PO BEDTIME DME: Walker Unit 1 ea .Route .prn Qty: 1 0RF Rx Instructions: .prn1 walker triamcinolone acetonide 0.1 % ointment 1 applic topical DAILY Qty: 80 0RF tamsulosin [Flomax] 0.4 mg capsule 0.4 mg PO DAILY Breztri Aerosphere 160-9-4.8 mcg/actuation HFA aerosol inhaler 2 inh inhalation BID Qty: 10.7 3RF enalapril maleate 10 mg tablet 5 mg PO DAILY silver sulfadiazine [Silvadene] 1 % cream 1 applic topical BID PRN Rx Instructions: apply a 1.5 mm thickness, use on toes fluticasone propion-salmeterol [Advair Diskus] 100-50 mcg/dose blister with device 1 inh inhalation BID isosorbide mononitrate 30 mg tablet extended release 24 hr 15 mg PO BID Qty: 90 3RF nitroglycerin [Nitrostat] 0.4 mg tablet, sublingual 0.4 mg SUBLINGUAL Q5M PRN (Reason: chest pain) 30 Days Qty: 25 6RF Rx Instructions: until response; do not exceed 3 doses per episode nicotine 14 mg/24 hr patch 24 hour 1 patch transdermal DAILY Qty: 28 0RF Rx Instructions: use one per 24 hours prednisone 5 mg tablet 5 mg PO DAILY PRN (Reason: FLARES) Qty: 60 2RF Combivent Respimat 20-100 mcg/actuation mist 1 puff INHALATION Q6H PRN (Reason: Shortness Of Breath) Qty: 4 5RF clobetasol 0.05 % cream 1 applic topical DAILY Qty: 45 1RF albuterol sulfate [Ventolin HFA] 90 mcg/actuation HFA aerosol inhaler 2 puff inhalation Q6H PRN (Reason: shortness of breath or wheezing) Qty: 8.5 3RF Orencia 125 mg/mL syringe 125 mg SUBCUT .qweek Qty: 4 5RF epinephrine [EpiPen 2-[place]] 0.3 mg/0.3 mL Auto-Injector See Rx Instructions .ROUTE .COMPLEX PRN (Reason: Allergic Reaction) Rx Instructions: DIRECTED PRN insulin aspart U-100 [Novolog FlexPen U-100 Insulin] 100 unit/mL (3 mL) insu kd pen See Rx Instructions .ROUTE .COMPLEX Rx Instructions: PER SLIDING SCALE Glucagon (HCl) Emergency Kit 1 mg Recon Soln 1 mg SUBCUT Q20M PRN (Reason: blood sugar) Qty: 0 albuterol sulfate 2.5 mg /3 mL (0.083 %) Solution For Nebulization 2.5 mg INHALATION Q6H PRN (Reason: Shortness Of Breath) Aspir-81 81 mg Tablet,Delayed Release (Dr/Ec) 81 mg PO DAILY@0800 Discharge Orders: Discharge ED (Routine); Ordered 09/06/22 Ordered By: Darren Elias Referrals: Nel Peacock MD [Primary Care Provider] - Discharge Diet: Regular Discharge Activity: Increase activity as tolerated Patient Instructions: Chest Pain (ED) Activity Restrictions/Additional Instructions: Follow-up with medical provider as directed. Call pack worker supervisor office tomorrow to get an appointment set up for follow-up as soon as possible. Continue taking all home medications as previously prescribed. Return to the ER or your medical provider if condition worsens. Please read and understand discharge instructions. Thank you for choosing [facility] for your healthcare needs today. Please realize this is an emergency room and that we are providing you with a medical screening exam and this may not be complete and all inclusive of all the testing and or work up that you may need to determine your ailment or severity of your illness. It is very important that you follow up as instructed or that you return to the Emergency Department should you have concerns or if your condition changes or worsens in any way. Coding Level of Care Code ED Dry Mill Worker for Chikis Toro
[2022-09-05 22:41] VITALS: BP 157/71; PULSE 70; RESP 18; O2SAT 98
[2022-09-05 22:43] LABS: Alanine Aminotransferase 21 U/L (0-33); Albumin Level 3.2 g/dL (3.5-5.2); Alkaline Phosphatase 178 U/L (35-105); Aspartate Amino Transferase 31 U/L (0-32); Blood Urea Nitrogen 10 mg/dL (6-20); Calcium 8.4 mg/dL (8.5-10.5); Carbon Dioxide 20 mmol/L (22-29); Globulin 2.7 g/dL (1.3-4.6); Glomerular Filtration Rate 87.5 mL/min (90-130); Glucose 342 mg/dL (65-115); Total Bilirubin 0.4 mg/dL (0.15-1.2); Total Protein 5.9 g/dL (6.6-8.7)
[2022-09-05 22:53] LABS: Chloride 101 mmol/L (98-107)
[2022-09-05 22:56] LABS: Osmolality Calculated 291 mOsm/kg (285-295); Sodium 134 mmol/L (136-145)
[2022-09-05 23:01] VITALS: BP 123/76; PULSE 64; RESP 16; O2SAT 95
--- NOTE | 2022-09-05 23:40 | ECG_ITS ---
[facility] [place] Test Date: 2022-09-05 Pat Name: Erin Kelley Department: Room: Gender: Female Siding Applicator: : 1970 Requested By: Annamaria Perez Order Number: [id number] Shilpa MD: Terrell Macias M.D. Measurements Intervals [place] Rate: 61 P: 58 MS: 167 QRS: 41 QRSD: 76 T: 57 QT: 459 QTc: 463 Interpretive Statements SINUS RHYTHM POSSIBLE LEFT ATRIAL ENLARGEMENT [-0.1mV P-WAVE IN V1/V2] MODERATE ST DEPRESSION [0.05+ mV ST DEPRESSION] Compared to ECG 09/05/2022 21:46:40 No significant changes Electronically Signed On 09-05-2022 23:42:56 INDUSTRIAL SPECIALIST by Terrell Macias M.D. [id number]
[2022-09-06 00:17] LABS: Troponin 5 2HR 14.66 ng/L (0-10)
[2022-09-06 00:25] LABS: Troponin 5 2HR Delta -0.34 ABS# (0-10)
[2022-09-06 00:30] VITALS: BP 103/61; PULSE 60; RESP 16; O2SAT 94
== END 2022-09-06 01:04 | disposition home or self-care (01) ==
PROVIDERS: Emergency Medicine; Emergency Provider Physician Assistant; PCP Internal Medicine
DX: R07.9 Chest pain, unspecified (principal); I10 Essential (primary) hypertension
CPT/HCPCS: 36415; 71045; 80053; 84484; 85025; 85610; 93005; 99285

== ENCOUNTER → 2022-09-16 09:53 | Outpatient (BNVA) | payer MEDICAID, SELFPAY | PROVIDERS: PCP Internal Medicine; Visit Provider Internal Medicine Cardiovascular Disease | DX: D69.6 Thrombocytopenia, unspecified (principal); R74.01 Elevation of levels of liver transaminase levels; K72.00 Acute and subacute hepatic failure without coma; I10 Essential (primary) hypertension; Z79.01 Long term (current) use of anticoagulants; I81 Portal vein thrombosis; E11.9 Type 2 diabetes mellitus without complications; I73.9 Peripheral vascular disease, unspecified; M79.7 Fibromyalgia; Z79.84 Long term (current) use of oral hypoglycemic drugs; F17.210 Nicotine dependence, cigarettes, uncomplicated | CPT/HCPCS: 99214 ==

== ENCOUNTER 2022-10-05 09:10 | Outpatient (CLI) | payer MEDICAID, SELFPAY ==
--- NOTE | 2022-10-05 09:28 | USCV_ITS ---
Erin Kelley Age: 52 Gender: F : 1970 Exam Date: 10/05/2022 09:41 Ordering Phys: Blanquita Sullivan Technologist: APRYL [place] [facility] [place]ication: RLE PAIN AND SWELLING HISTORY: Lower extremity swelling. Lower extremity pain. PROCEDURES: Venous duplex imaging was performed in only the right lower extremity. The following venous structures were evaluated: common femoral vein, profunda vein, proximal portion of the greater saphenous vein, superficial femoral vein, and the popliteal vein. In addition, the posterior tibial and peroneal trunk were evaluated. Serial compression, augmentation maneuvers, and spectral Doppler flow evaluation were performed. FINDINGS: No evidence of DVT seen in any vessel visualized at this time. Edema seen in Right lower leg CONCLUSIONS No evidence of right lower extremity DVT. Jhonny Arroyo MD (Electronically Signed) Final Date: 05 October 2022 12:31 S
--- NOTE | 2022-10-05 09:54 | XR_ITS ---
WS: [id number] Exam: XR foot RT 2V [id number] Date/Time of Exam: 10/05/2022 9:54 AM Reason For Exam: R FOOT PAIN No acute fracture or dislocation noted. A 1 mm x 2 cm metallic density seen in the medial plantar sof t tissues of the great toe appears to represent a foreign body. This may be a wire fragment or needle fragment. Remaining soft tissues appear normal. XR/XR foot RT 2V [id number] IMPRESSION: 1. No fracture or dislocation. 2. 1 mm x 2 cm metallic foreign body in the medial aspect of the great toe prob ably representing a needle fragment or wire fragment.
--- NOTE | 2022-10-05 09:54 | XR_ITS ---
WS: [email or web address] Exam: XR ankle RT 2V [id number] Date/Time of Exam: 10/05/2022 9:54 AM Reason For Exam: R ANKLE PAIN Comparison 03/24/2020. Old nonunion fracture of the lower tip of the fibula noted. No acute fractures are seen. The ankle mo rtise is equidistant. Soft tissue swelling about the ankle. There may be ankle joint effusion. XR/XR ankle RT 2V [id number] IMPRESSION: 1. No acute fracture. 2. 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 3. Soft tissue swelling. There may be joint effusion.
== END 2022-10-05 09:11 | disposition home or self-care (01) ==
LOC: RAD 09:15
PROVIDERS: PCP Internal Medicine; Visit Provider Nurse Practitioner Family
DX: R60.0 Localized edema (principal); M25.571 Pain in right ankle and joints of right foot; M79.89 Other specified soft tissue disorders
CPT/HCPCS: 73600; 73620; 93971

== ENCOUNTER → 2022-10-07 08:27 | Outpatient (BNVA) | payer MEDICAID, SELFPAY | PROVIDERS: PCP Internal Medicine; Visit Provider Internal Medicine Pulmonary Disease | DX: J43.2 Centrilobular emphysema (principal); M05.9 Rheumatoid arthritis with rheumatoid factor, unspecified; Z86.16 Personal history of COVID-19; F17.210 Nicotine dependence, cigarettes, uncomplicated; Z79.899 Other long term (current) drug therapy; R91.1 Solitary pulmonary nodule | CPT/HCPCS: 99214 ==

== ENCOUNTER → 2022-10-13 15:01 | Outpatient (BNVA) | payer MEDICAID, SELFPAY | PROVIDERS: PCP Internal Medicine; Visit Provider Internal Medicine | DX: L40.9 Psoriasis, unspecified (principal); M06.9 Rheumatoid arthritis, unspecified; M25.50 Pain in unspecified joint | CPT/HCPCS: 99214 ==

== ENCOUNTER → 2022-10-19 09:04 | Outpatient (BNVA) | payer MEDICAID, SELFPAY | PROVIDERS: PCP Internal Medicine; Visit Provider Podiatrist Foot & Ankle Surgery | DX: M10.071 Idiopathic gout, right ankle and foot (principal); M25.571 Pain in right ankle and joints of right foot | CPT/HCPCS: 20605; 80503; 87070; 87075; 87205; J1100; J3301 ==

== ENCOUNTER → 2022-10-25 14:33 | Outpatient (BNVA) | payer MEDICAID, SELFPAY | PROVIDERS: PCP Internal Medicine; Visit Provider Podiatrist Foot & Ankle Surgery | DX: M10.071 Idiopathic gout, right ankle and foot (principal) | CPT/HCPCS: 99213 ==

== ENCOUNTER → 2022-11-09 11:13 | Outpatient (BNVA) | payer MEDICAID, SELFPAY | PROVIDERS: PCP Internal Medicine; Visit Provider Internal Medicine | DX: M25.571 Pain in right ankle and joints of right foot (principal); M05.9 Rheumatoid arthritis with rheumatoid factor, unspecified; E11.9 Type 2 diabetes mellitus without complications; J43.9 Emphysema, unspecified; L40.9 Psoriasis, unspecified | CPT/HCPCS: 36415; 73610; 73620; 80053; 84550; 85025; 85651; 86140; 99214 ==

== ENCOUNTER → 2022-11-15 09:04 | Outpatient (BNVA) | payer MEDICAID, SELFPAY | PROVIDERS: PCP Internal Medicine; Visit Provider Podiatrist Foot & Ankle Surgery | DX: M87.871 Other osteonecrosis, right ankle (principal) | CPT/HCPCS: 99214 ==

== ENCOUNTER 2022-11-30 07:02 | Outpatient (CLI) | payer MEDICAID, SELFPAY ==
--- NOTE | 2022-11-30 07:10 | CT_ITS ---
WS: [email or web address] CT NECK TECHNIQUE: Contrast-enhanced CT of the neck with coronal and sagittal reformatted images. CLINICAL INFORMATION: NECK MASS COMPARISON: None. DLP: 231.[address] scans at [facility] use at least one of these dose optimization techniques: automated e xposure control; mA and/or kV adjustment per patient size (includes targeted exams where dose is matc hed to clinical indication); or iterative reconstruction. FINDINGS:Palpable BB marker LEFT neck. No evidence of underlying soft tissue mass or lesion in this l ocation. Normal underlying platysma. However, there is a 3 mm calculus in the underlying LEFT submand ibular gland with surrounding inflammatory stranding compatible sialoadenitis. No drainable abscess o r fluid collection. Calculus is new since 2019. No visualized calculi in the distal submandibular david t. RIGHT submandibular gland is normal. Parotid glands are normal. Normal palatine tonsils. Normal parapharyngeal fat. No evidence of suprag lottic or glottic mass. Normal piriform sinuses. Subglottic airway is patent. Hazy atelectasis and gr oundglass attenuation in the partially visualized upper lobes. Straightening of the normal cervical l ordosis. Moderate spondylitic changes. Disc space narrowing worse at C5-C6. Mastoid air cells well ae rated. Retention cyst LEFT maxillary sinus. No cervical lymphadenopathy. Intracranial cavernous carotid calcification. Mild LEFT greater than RIGHT carotid bulb calcification . CT/CT neck w con* [id number] IMPRESSION: 1. Palpable BB marker LEFT neck. No evidence of underlying soft tissue mass or lesion in this location. Normal underlying platysma. 2. Submandibular gland in this area demonstrates intraglandular small calculus measuring 3 mm new from 2019. Small amount of associated surrounding inflammat ory changes compatible with sialoadenitis. No abscess or fluid collection. 3. No obstructing calculi in the distal submandibular duct. 4. No other suspicious findings. 5. No evidence of supraglottic or glottic mass. 6. No cervical lymphadenopathy.
[2022-11-30] MEDS: iohexol 350 mg/mL 500 mL Btl (per mL) IV (07:38)
== END 2022-11-30 07:03 | disposition home or self-care (01) ==
LOC: RAD 07:05
PROVIDERS: PCP Internal Medicine; Visit Provider Internal Medicine
DX: R22.1 Localized swelling, mass and lump, neck (principal)
CPT/HCPCS: 29405; 70491; 73610; 99213; Q9967

== ENCOUNTER 2022-12-07 08:20 | Outpatient (CLI) | payer MEDICAID, SELFPAY ==
--- NOTE | 2022-12-07 08:45 | MR_ITS ---
WS: [email or web address] EXAMINATION: MR ankle RT wo con* [id number] ORDER DATE: 12/07/2022 8:30 AM HISTORY: AVN to the right talu CONTRAST: None. TECHNIQUE: Axial proton density fat sat, axial T1, sagittal proton density, sagittal STIR, coronal T2 fat sat, and coronal T1 sequences performed. After contrast, axial T1 fat sat, coronal T1 fat sat, and sagittal T1 fat sat were performed. FINDINGS: Diffuse edema involving the talus with flattening. Partial replacement normal bone marrow signal can be seen with osteomyelitis. More focal sclerosis involving the posterior talus suspicious for AVN. Ch ronic compression and fragmentation of the talus. Moderate joint effusion with chronic synovial thick ening. Recommend correlation with infection. Edema within the medial malleolus with replacement of th e normal fatty bone marrow signal can be seen with osteomyelitis Mild bone marrow edema involving the calcaneus likely degenerative or reactive. Small amount of fluid in the retrocalcaneal bursa. Distal Achilles is normal. Tiny chronic avulsion at the tip of the medi al and lateral malleolus. . Visualized peroneal tendons appear intact. Extensor and flexor compartment tendons appear intact. MR/MR ankle RT wo con* [id number] IMPRESSION: 1. Charcot joint involving the ankle similar to the recent radiograph. 2. Diffuse soft tissue thickening about the ankle with moderate ankle effusion and diffuse synovial thickening. Diffuse soft tissue edema. 3. Chronic appearing fragmentation and flattening of the talus with sclerosis in the posterior talus suspicious for AVN. 4. Additional bone marrow edema within the anterior talus with replacement of normal fatty bone marrow signal can be seen with osteomyelitis. Recommend corre lation for infection. 5. Similar-appearing possible osteomyelitis involving the medial malleolus. 6. Chronic avulsion fractures tip of the medial and lateral malleolus.
== END 2022-12-07 08:21 | disposition home or self-care (01) ==
LOC: RAD 08:21
PROVIDERS: PCP Internal Medicine; Visit Provider Podiatrist Foot & Ankle Surgery
DX: A52.16 Charcot's arthropathy (tabetic) (principal); M25.471 Effusion, right ankle; R60.0 Localized edema
CPT/HCPCS: 73721

== ENCOUNTER → 2022-12-14 13:34 | Outpatient (BNVA) | payer MEDICAID, SELFPAY | PROVIDERS: PCP Internal Medicine; Visit Provider Podiatrist Foot & Ankle Surgery | DX: M87.071 Idiopathic aseptic necrosis of right ankle (principal); M14.671 Charcot's joint, right ankle and foot; E11.42 Type 2 diabetes mellitus with diabetic polyneuropathy; Z79.4 Long term (current) use of insulin | CPT/HCPCS: 73610; 99214 ==

== ENCOUNTER 2022-12-14 15:07 | Outpatient (CLI) | payer MEDICAID, SELFPAY | END 2022-12-14 15:08 | disposition home or self-care (01) | LOC: SPT 15:08 | PROVIDERS: PCP Internal Medicine; Visit Provider Podiatrist Foot & Ankle Surgery | DX: Z46.89 Encounter for fitting and adjustment of other specified devices (principal); M25.571 Pain in right ankle and joints of right foot | CPT/HCPCS: 97760; L4361 ==

== ENCOUNTER → 2023-01-04 14:41 | Outpatient (BNVA) | payer MEDICAID, SELFPAY | PROVIDERS: PCP Internal Medicine; Visit Provider Podiatrist Foot & Ankle Surgery | DX: M14.671 Charcot's joint, right ankle and foot (principal); M87.074 Idiopathic aseptic necrosis of right foot; E11.42 Type 2 diabetes mellitus with diabetic polyneuropathy; Z79.4 Long term (current) use of insulin | CPT/HCPCS: 73610; 99214 ==

== ENCOUNTER → 2023-01-13 05:58 | Day surgery (SDC) | payer MEDICAID, SELFPAY ==
[2023-01-12 09:48] VITALS: BMI 36.6
[2023-01-13] VITALS (10 sets, daily range): BP systolic 127–162; BP diastolic 60–92; PULSE 57–68; RESP 15–18; TEMP 36.1–36.4; O2SAT 91–97
--- NOTE | 2023-01-13 | XR_ITS ---
WS: [email or web address] XR ankle RT 2V [id number] REASON FOR EXAM: right ankle fusion. or pic FINDINGS: Talocalcaneal arthrodesis and fixation of distal most talar fracture fragment with anterior tibial pl ate and screws and long transverse calcaneal screws. Surgical appliances are intact and in proper position and alignment. Arthrodesis alignment is satisfactory. XR/XR ankle RT 2V [id number] IMPRESSION: Right ankle arthrodesis as above.
--- NOTE | 2023-01-13 06:22 | W.PM.OPSUD ---
Surgery/Procedure H&P Update DATE OF PROCEDURE: January 13, 2023 DATE H&P PERFORMED: 01/04/23 CHANGES TO PREVIOUS DOCUMENTATION: none PREOP DIAGNOSIS: Charcot right ankle, Avascular necrosis right talus PLANNED PROCEDURE: Operation Date: 01/13/23 07:00 Proposed Procedures p 1)Right ankle fusion. [id number],(Right) - Anthony Sales DPM s Subtalar Joint Fusion(Right) - Anthony Sales DPM
[2023-01-13] MEDS: CELEcoxib 200 mg Capsule 400 MG PO (06:24)
[2023-01-13] MEDS: pregabalin 150 mg Capsule 300 MG PO (06:25)
[2023-01-13 06:42] LABS: Glucose Point of Care 100 mg/dL (70-110)
[2023-01-13] MEDS: sodium chloride 0.9% 1,000 ML 30 ML IV (06:44)
[2023-01-13] MEDS: ceFAZolin 2,000 MG in sodium chloride 0.9% (plus) 50 ML 100 MG IV (07:01)
--- NOTE | 2023-01-13 08:19 | ANES.PREANE2 ---
Pre-Anesthetic Assessment Height/Weight: Height 1.65 m Weight 99.79 kg Temp Pulse Resp BP Pulse Ox O2 Del Method 97 F L 62 18 127/60 95 Room Air 01/13/23 06:18 01/13/23 06:18 01/13/23 06:18 01/13/23 06:18 01/13/23 06:18 01/13/23 06:18 Preop Diagnosis: Charcot right ankle, Avascular necrosis right talus Operation Date: 01/13/23 07:00 Proposed Procedures p 1)Right ankle fusion. 82055,(Right) - Anthony Sales DPM s Subtalar Joint Fusion(Right) - Anthony Sales DPM Familial anesthetic complications: none Was Beta Brooke taken within 24 hours: Yes Was Clonidine taken within 24 hours: N/A Last intake: Intake Last Liquid Date 01/12/23 Last Liquid Time 22:30 Last Solid Date 01/12/23 Last Solid Time 17:00 Social Tobacco and No alcohol Exam alert, oriented x 3 and regular rate & rhythm Airway Submandibular: within normal limits Cervical ROM: within normal limits Mallampati: Class II Dentition: false Pulmonary Chronic Obstructive Pulmonary Disease CV/HEM Hypertension VTE--anticoagulation GI Gastroesophageal Reflux Disease Metabolic Diabetes Mellitus and Morbid Obesity chronic steroid Musc/skel Lower Back Pain, Osteoarthritis/DJD and Rheumatoid Arthritis Neuropsych Anxiety and Depression Anesthetic Plan ASA status: 3 Anesthesia: General and Regional (specify below) (right pop blk) Medications/Allergies Home Medications Medication Instructions Recorded Confirmed Last Taken Type rosuvastatin 20 mg tablet (Crestor) 20 mg PO DAILY 09/04/19 01/13/23 01/12/23 History omeprazole 40 mg capsule,delayed 40 mg PO DAILY 09/05/19 01/13/23 01/13/23 History release nitroglycerin 0.4 mg sublingual 0.4 mg sublingual Q5M PRN chest 09/09/19 01/13/23 Unknown Rx tablet (Nitrostat) pain 30 days #25 tabs epinephrine 0.3 mg/0.3 mL See Rx Instructions .Route 11/01/19 01/13/23 Unknown History injection, auto-injector (EpiPen .COMPLEX PRN Allergic Reaction 2-Carrington) glucagon HCl 1 mg solution for 1 mg SUBCUT Q20M PRN blood sugar 11/01/19 01/13/23 Unknown History injection (Glucagon (HCl) ##0 Emergency Kit) insulin aspart U-100 100 unit/mL See Rx Instructions .Route .COMPLEX 11/01/19 01/12/23 01/12/23 History (3 mL) subcutaneous pen (Novolog FlexPen U-100 Insulin aspart) albuterol sulfate 2.5 mg/3 mL 2.5 mg inhalation Q6H PRN 04/01/20 01/13/23 12/14/22 History (0.083 %) solution for nebulization Shortness Of Breath nicotine 14 mg/24 hr daily 1 patch transdermal DAILY #28 ea 07/13/20 01/13/23 01/12/23 Rx transdermal patch aspirin 81 mg tablet,delayed 81 mg PO DAILY@0800 08/15/20 01/12/23 01/08/23 History release melatonin 3 mg capsule 3 mg PO DAILY 09/04/20 01/13/23 01/12/23 History apixaban 5 mg tablet (Eliquis) 5 mg PO BID 11/24/20 01/12/23 01/08/23 History metoprolol tartrate 25 mg tablet 25 mg PO BID #180 tabs 12/10/20 01/13/23 01/13/23 Rx tamsulosin 0.4 mg capsule (Flomax) 0.4 mg PO DAILY 05/22/21 01/13/23 01/12/23 History oxycodone 15 mg tablet 15 mg PO BID PRN pain 30 days #60 08/04/21 01/13/23 01/13/23 Rx tabs diclofenac sodium 1 % topical gel 4 g topical QID #100 grams 09/30/21 01/13/23 Unknown Rx (Voltaren Arthritis Pain) prednisone 5 mg tablet 5 mg PO DAILY PRN FLARES #60 tabs 02/14/22 01/13/23 Unknown Rx enalapril maleate 10 mg tablet 5 mg PO DAILY 03/02/22 01/13/23 01/12/23 History albuterol sulfate 90 mcg/actuation 2 puff inhalation Q6H PRN 05/20/22 01/13/23 Unknown Rx aerosol inhaler (Ventolin HFA) shortness of breath or wheezing #8.5 grams insulin glargine 100 unit/mL 50 unit SUBCUT DAILY@0800 06/08/22 01/12/23 01/12/23 History subcutaneous solution (Lantus U-100 Insulin) ropinirole 2 mg tablet 3 mg PO BEDTIME 06/08/22 01/13/23 01/12/23 History abatacept 125 mg/mL subcutaneous 125 mg SUBCUT .qweek #4 mL 07/29/22 01/13/23 01/06/23 Rx syringe (Orencia) alprazolam 0.25 mg tablet 0.25 mg PO DAILY PRN anxiety 09/16/22 01/13/23 01/11/23 History betamethasone dipropionate 0.05 % 1 applic topical BID #45 grams 10/12/22 01/13/23 01/11/23 Rx topical ointment fluocinonide 0.05 % topical 1 applic topical BID #60 grams 10/12/22 01/13/23 Unknown Rx ointment ipratropium 20 mcg-albuterol 100 1 puff inhalation Q6H PRN 10/17/22 01/12/23 01/12/23 Rx mcg/actuation mist for inhalation Shortness Of Breath #4 grams (Combivent Respimat) gabapentin 300 mg capsule 600 mg PO TID 30 days #180 caps 11/10/22 01/13/23 01/13/23 Rx Knee Walker #1 ea 11/11/22 01/04/23 Unknown Rx isosorbide mononitrate 30 mg 30 mg PO BID 01/12/23 01/13/23 01/13/23 History tablet,extended release 24 hr sertraline 100 mg tablet (Zoloft) 100 mg PO DAILY 01/12/23 01/13/23 01/12/23 History Allergies Allergy/AdvReac Type Severity Reaction Status Date / Time bee venom protein (honey bee) Allergy ALGY-Anaphy Verified 01/12/23 09:36 laxis Current Medications Generic Name Dose Route Start Last Admin Trade Name Freq PRN Reason Stop Dose Admin Sodium Chloride 1,000 mls @ 30 mls/hr 01/13/23 06:15 01/13/23 06:44 Sodium Chloride 0.9% IV 01/14/23 06:14 30 mls/hr .Q24H PHONG Administration PFSH Anesthesia Medical History Avulsion fracture of left ankle Cervical spondylosis Chronic anticoagulation Cigarette smoker motivated to quit Claudication Closed fracture of right distal fibula COVID-19 DDD (degenerative disc disease), cervical Diabetes Emphysema/COPD Essential hypertension Fibromyalgia Immunocompromised Long-term current use of opiate analgesic Onychodystrophy Osteoporosis Pain, joint, multiple sites Portal vein thrombosis Rheumatoid arthritis Spondylosis of lumbar region without myelopathy or radiculopathy Syncope Tobacco use disorder Surgical History H/O dilation and curettage Hx laparoscopic cholecystectomy Hx of section (~1989) Hx of hysterectomy Family History Mother Stroke Cancer SKIN CANCER Sister Stroke Other Diabetes Myocardial infarct Denies family history of Anesthesia complication Bleeding disorder Social History Smoking and tobacco status: current every day smoker cigarettes Years cigarettes smoked: 40 [ Other cigarette details: 3 cigarettes/day currently] Quit status (tobacco): considering quitting Second hand smoke exposure: Yes Smoking risk assessment/counseling performed?: Yes Alcohol intake: former Substance/Drug Use: never Caregiver/support person: Yes Lives independently: Yes Household members: spouse Marital status: Current occupational status: disabled Pets and animals: Yes Do you think of yourself as: Straight/Heterosexual Current gender identity: Female Data Anesthesia Cardiac Studies: Echocardiogram 02/24/22 Echocardiogram Limited Views 10/21/20 Echocardiogram Ultrasound 08/14/20 Sestamibi Stress Test (Cardiology) 01/24/22 Holter Monitor 03/31/20 Anesthesia Procedures Nerve Block Nerve Block 1: Main Anesthesia: general anesthesia Time Out Performed: Yes Consent: requested by attending/covering physician, from patient, risks and benefits reviewed and patient agrees to proceed Nerve block location: popliteal (right) Anesthesia monitors applied: pulse oximetry, EKG, BP cuff and oxygen Nerve block position: supine Anesthetic Used: ropivicaine 0.5% Amount of anesthesia used (mL): 30 Ultrasound used to: recognize landmarks Nerve Stimulator Used?: No Interscalene/Femoral BLK: 4 stimuplex 21 g needle used for position and inplane approach Injection: neg aspiration of heme Patient Tolerated Procedure: well Complications: none
--- NOTE | 2023-01-13 09:23 | PM.OP ---
Operative Report Date of procedure: January 13, 2023 Pre-op diagnosis: Preop Diagnosis Charcot right ankle, Avascular necrosis right talus Post-op diagnosis: Same Procedure done: Right ankle fusion. CPT code 52975 Right subtalar joint fusion. 33732 Implants: [place] anterior TTC contoured Silver back plate. [place] 4.2 millimeter screw x2 [place] 4.5 millimeter screw x5 [place] 7 mm screw x2 V92 10 cc 5 cc of demineralized bone matrix 2-0 Vicryl 3-0 Vicryl 4-0 nylon Specimens removed/disposition: None Pathology: None Surgeon: Anthony Sales D.P.M. Meter Engineer: Vladislav Valentine Estimated blood loss: 30 100 IV fluids: None Urine output: None Complications: None Brief History: Complete collapse of right talar body and now rear foot angulation present, patient does not have plantar-grade foot.? Discussed reconstructive surgery a salvage effort.? She has controlled A1c, has nearly quit smoking.? Discussed risks versus benefits of surgical intervention, ultimately may require greater than 6 months of nonweightbearing due to underlying rheumatological issues, she has rheumatoid arthritis.? History of smoking, history of rheumatoid arthritis and history of diabetes increased risks for delayed union, malunion, nonunion and ultimately risk for right lower extremity amputation.? Patient wishes to proceed. I reviewed at length with the patient, the risks, potential complications, benefits, alternatives, expectations, and typical outcomes associated with the surgery. The risks and potential complications were explained in detail, including but not limited to infection, wound dehiscence or soft tissue complications, bleeding and hematoma, chronic edema, neuritis or nerve damage producing numbness or chronic pain, CRPS, failure to relieve pain or worsening pain, thick / painful / unsightly scar, limited motion / stiffness, malposition, delayed union, malunion, or nonunion, fracture, reaction to implants, anesthetic complications, venous thromboembolism, and deformity recurrence. I discussed the notion of no regrets with the patient as it pertains to complications and outcomes. The patient seemed to understand the nature of the proposed care and required convalescence. They asked appropriate questions, answered to their satisfaction. They are aware no guarantees can be made as to a satisfactory outcome and they understand there may be other possible unforeseen complications or outcomes not listed here that will be treated accordingly if they arise. There were no written or implied guarantees given to the patient. They gave informed consent to proceed. Patient is n.p.o. since midnight, informed consent signed by patient and myself. Initial the right lower extremity. Procedure: Under mild sedation the patient was brought to the operating room and placed on the operating table in supine position. A timeout was performed. Anesthesia was then administered by the anesthesia service. Popliteal block performed per anesthesia preoperatively. Right medial ankle block performed with 10 cc of 0.5% Marcaine plain by myself. Bump was placed on the ipsilateral hip. Well-padded pneumatic tourniquet was applied to the right high calf. The right lower extremity was then scrubbed, prepped and draped utilizing normal aseptic technique. The right lower extremity was exanguinated with an Esmarch bandage and the tourniquet was then inflated to 250 mmHg. Attention was directed to the right anterior ankle where a linear longitudinal incision was made lateral to the tibialis anterior tendon approximately 1 cm lateral to the anterior tibial crest coursing distally directly over the talonavicular joint, skin was incised with a #15 blade. No retraction or tension was placed on the skin until full-thickness dissection was carried down to bone. All bleeders were ligated and cauterized as necessary. The interval of the tibialis anterior tendon and extensor hallucis longus tendon where identified. The tibialis anterior tendon was safely protected and retracted medially, the extensor hallucis longus tendon and neurovascular bundle were protected and retracted laterally. A periosteal and capsular incision was performed in the tibiotalar joint where prepped for arthrodesis with a bone resurfacing tool, rongeur, curettage and subchondral plate drilling. Attention was then directed to the subtalar joint where in like fashion the right subtalar joint was prepped for arthrodesis with articular surface being denuded of all articular cartilage and subchondral plate fenestrated with a 2 mm fenestrating drill bit. The incision was irrigated with copious amounts of sterile saline solution. The talar head and neck were derotated to anatomically reduce the talar head. Bone void was packed with V 90 to 10 cc and 5 cc of demineralized bone matrix and the ankle was held in neutral position, slight valgus and slight externally rotated followed by fixation utilizing standard AO technique. A [place] contoured tibial talocalcaneal arthrodesis plate was noted to have excellent bony apposition and compression. 2 screw fixation within the talus that were locking screws within the plate. 5 screw fixation at the tibia both locking and nonlocking and 7 mm screws across the tibial talocalcaneal joint with excellent bony apposition and compression noted. Hardware placement and ideal alignment of arthrodesis of the right ankle and subtalar joint were confirmed with intraoperative C arm at the AP, oblique and lateral views and noted to be excellent. The incision was irrigated with copious amounts of Staticin solution and closed in a layered fashion. Periosteum, joint capsule and tendon sheath were reapproximated utilizing 2-0 Vicryl. Subcutaneous tissue was reapproximated utilizing 3-0 Vicryl and skin reapproximated utilizing 4-0 nylon. The incisions were then dressed with Adaptic, Unna boot, 4 x 4's, Kerlix, Christophe wrap and a well-padded multilayer compressive splint with stirrup. The tourniquet was deflated and a prompt hyperemic response was noted to the distal digits of the right foot. Patient tolerated the procedure and anesthesia well and was transferred to the PACU with vital signs stable and vascular status intact. Patient denied any postoperative pain, popliteal block was sufficient. She desired to go home. I advised her to remain strict nonweightbearing to the right lower extremity. To keep her postoperative dressings in her posterior splint intact until her follow-up visit scheduled for Monday next week January 20, 2023. She will resume her anticoagulants which consists of Eliquis 5 mg twice daily and an 81 mg aspirin once daily starting tomorrow 01/14/2023. Patient will be provided with oxycodone 15 mg to be taken every 6 hours as needed for pain. She is currently under pain management contract and takes oxycodone 15 mg every 12. Her baseline pain management regimen will be placed on hold for the next 1 to 2 weeks for surgical pain and be prescribed as above. Patient given at home care instructions on discharge paperwork as well as follow-up instruction. She also was provided my cell phone number to contact me with any postoperative questions or concerns.
[2023-01-13] MEDS: oxyCODONE 5 mg IR Tab/Cap 15 MG PO (10:12)
--- NOTE | 2023-01-13 10:28 | SUR.PHASEII ---
this nurse assisted pt to bathroom. pt was standing to pivot to toilet when her knees buckled and patient lowered to the floor. pt didn't fall onto right foot. pt denies any increased pain. no injuries noted. Dr. Sales called and notified. No news orders. Pt assisted to toilet and back to room, without any difficulty.
--- NOTE | 2023-01-13 13:45 | ANE.PACU2 ---
Inpatient post-anesthesia follow up: Airway intact: Yes Vital signs: Temperature 97.5 F Pulse Rate 61 Respiratory Rate 16 Blood Pressure 153/79 Pulse Oximetry 93 Oxygen Delivery Me thod Room Air Oxygen Flow Rate 2 Fraction of Inspir ed Oxygen Hydration adequate: Yes Nausea and vomiting: No Pain level: 1 Mental status: Baseline
== END | disposition home or self-care (01) ==
PROVIDERS: PCP Internal Medicine; Visit Provider Podiatrist Foot & Ankle Surgery
PROC: (CPT 28740; principal; 2023-01-13 07:00)
PROC: (CPT 28725; 2023-01-13 07:00)
DX: M14.671 Charcot's joint, right ankle and foot (principal); M87.071 Idiopathic aseptic necrosis of right ankle; J44.9 Chronic obstructive pulmonary disease, unspecified; I10 Essential (primary) hypertension; K21.9 Gastro-esophageal reflux disease without esophagitis; E11.9 Type 2 diabetes mellitus without complications; E66.01 Morbid (severe) obesity due to excess calories; Z68.36 Body mass index [BMI] 36.0-36.9, adult; Z79.4 Long term (current) use of insulin; Z79.82 Long term (current) use of aspirin; Z79.891 Long term (current) use of opiate analgesic; Z79.01 Long term (current) use of anticoagulants; Z79.52 Long term (current) use of systemic steroids; F41.9 Anxiety disorder, unspecified; F32.A Depression, unspecified; M06.9 Rheumatoid arthritis, unspecified; F17.210 Nicotine dependence, cigarettes, uncomplicated
CPT/HCPCS: 27870; 28725; 36416; 73600; 76000; 82962; A4216; C1713; C1762; J0131; J0690; J1100; J1170; J1885; J2250; J2405; J2704; J2795; J3010; J3490; J7030

== ENCOUNTER 2023-01-13 17:26 | Inpatient (IN) | payer MEDICAID, SELFPAY ==
[2023-01-13 17:29] VITALS: BP 120/76; PULSE 67; RESP 18; TEMP 36.9; O2SAT 67; BMI 36.6
--- NOTE | 2023-01-13 17:37 | ED_ITS ---
HPI - Extremity Problem General: Chief complaint: Extremity Injury, Lower Stated complaint: LATERAL FOOT Time Seen by Provider: 01/13/23 17:30 History of Present Illness: Patient presents ER with complaints of a fall and right foot/ankle rotated laterally. Patient just had ankle fusion on her foot this morning by Dr. Sales. Patient received 100 mcg of fentanyl by EMS and she is pain-free at the moment. Patient still has good cap refill noted in her toes. Review of Systems General: Reports: 10 or more systems reviewed and unremarkable except in HPI and below PFSH ED PFSH: Medical History Avulsion fracture of left ankle Cervical spondylosis Chronic anticoagulation Cigarette smoker motivated to quit Claudication Closed fracture of right distal fibula COVID-19 DDD (degenerative disc disease), cervical Diabetes Emphysema/COPD Essential hypertension Fibromyalgia Immunocompromised Long-term current use of opiate analgesic Onychodystrophy Osteoporosis Pain, joint, multiple sites Portal vein thrombosis Rheumatoid arthritis Spondylosis of lumbar region without myelopathy or radiculopathy Syncope Tobacco use disorder Surgical History H/O dilation and curettage Hx laparoscopic cholecystectomy Hx of section (~1989) Hx of hysterectomy Family History Mother Stroke Cancer SKIN CANCER Sister Stroke Other Diabetes Myocardial infarct Denies family history of Anesthesia complication Bleeding disorder Social History Smoking and tobacco status: current every day smoker cigarettes Years cigarettes smoked: 40 [ Other cigarette details: 3 cigarettes/day currently] Quit status (tobacco): considering quitting Second hand smoke exposure: Yes Smoking risk assessment/counseling performed?: Yes Alcohol intake: former Substance/Drug Use: never Caregiver/support person: Yes Lives independently: Yes Household members: spouse Marital status: Current occupational status: disabled Pets and animals: Yes Do you think of yourself as: Straight/Heterosexual Current gender identity: Female Physical Exam Const: COMMON NORMALS: no acute distress, average body habitus, patient oriented x3, no limitations, healthy appearing, alert and well nourished HENMT: COMMON NORMALS: normocephalic, atraumatic, hearing grossly normal bilaterally, external ears normal, Normal external nose present and moist oral mucous membranes HEAD & SCALP: normocephalic and atraumatic NOSE: Normal external nose present EXTERNAL EAR: Yes external ears normal Neck/C-Spine: COMMON NORMALS: full ROM, no lymphadenopathy, supple, no meningeal signs, no JVD and Thyroid normal THYROID: Thyroid normal Chest: COMMONS NORMALS: normal inspection of the chest and normal palpation of entire chest wall Resp: COMMON NORMALS: normal respiratory effort, No retractions, No use of accessory muscles and clear to auscultation bilaterally AUSCULTATION: clear to auscultation bilaterally Cardio: COMMON NORMALS: no JVD, regular rate, regular rhythm, S1 normal heart sound present, S2 normal heart sound present, No gallops present (Cardio), No clicks present (Cardio), No murmurs present (Cardio) and No rub (Cardio) RATE: regular rate RHYTHM: regular rhythm HEART SOUNDS: S1 normal heart sound present and S2 normal heart sound present GI: COMMON NORMALS: Normal to inspection, nondistended, normoactive bowel sounds present, Soft to palpation, non-tender, No hepatosplenomegaly present and no masses PALPATION: Yes Soft to palpation and Yes No hepatosplenomegaly present Extremity: NARRATIVE EXTREMITY EXAM: Right ankle still in postop dressing. Foot rotated approximately 30 degrees to the right compared to jacobs. Cap refill in toes still good. Neuro: COMMON NORMALS: patient oriented x3 SENSORIUM/ORIENTATION: Yes alert MENINGEAL SIGNS: Yes no meningeal signs Course Vital Signs: Vital signs: Vital Signs Temperature 98.5 F 01/13/23 17:29 Pulse Rate 67 01/13/23 17:29 Respiratory Rate 18 01/13/23 17:29 Blood Pressure 120/76 01/13/23 17:29 Pulse Oximetry 67 L 01/13/23 17:29 Oxygen Delivery Me thod Room Air 01/13/23 17:29 MDM - Extremity (Nontraumatic) Medical Decision Making Presents to the ER today after going home from surgery today fusing her right ankle. She stated her left leg gave out and then she twisted her left ankle again. So patient presents to the ER for evaluation. X-ray was obtained which showed obvious distal tib-fib fracture right above the fixation plate. Dr. Sales pharmacist in charge owner was called and he requested we place the patient inpatient so he can revise it in the morning. Dr. Monge was called and she accepted the patient for evaluation and treatment. Differential Diagnosis Unlikely herpes zoster, gout, cellulitis, superficial thrombophlebitis, deep venous thrombosis of upper extremity, lower extremity edema or deep vein thrombosis of lower extremity Medical Records I reviewed the patient's medical records. Lab Data I reviewed the patient's lab results. Discharge Plan Discharge Patient Disposition: Placed in Observation Clinical Impression: Fracture of distal end of tibia with fibula Condition: Stable Prescriptions: No Action omeprazole 40 mg capsule,delayed release(DR/EC) 40 mg PO DAILY melatonin 3 mg capsule 3 mg PO DAILY metoprolol tartrate 25 mg tablet 25 mg PO BID Qty: 180 3RF Eliquis 5 mg tablet 5 mg PO BID oxycodone 15 mg tablet 15 mg PO BID PRN (Reason: pain) 30 Days Qty: 60 0RF Rx Instructions: fill on or after 09/17/21 diclofenac sodium [Voltaren Arthritis Pain] 1 % gel 4 g topical QID Qty: 100 2RF Rx Instructions: apply to single knee, ankle, foot; for foot includes sole/toes/top of foot rosuvastatin [Crestor] 20 mg tablet 20 mg PO DAILY Lantus U-100 Insulin 100 unit/mL solution 50 unit SUBCUT DAILY@0800 ropinirole 2 mg tablet 3 mg PO BEDTIME tamsulosin [Flomax] 0.4 mg capsule 0.4 mg PO DAILY alprazolam 0.25 mg tablet 0.25 mg PO DAILY PRN (Reason: anxiety) gabapentin 300 mg capsule 600 mg PO TID 30 Days Qty: 180 1RF enalapril maleate 10 mg tablet 5 mg PO DAILY nitroglycerin [Nitrostat] 0.4 mg tablet, sublingual 0.4 mg SUBLINGUAL Q5M PRN (Reason: chest pain) 30 Days Qty: 25 6RF Rx Instructions: until response; do not exceed 3 doses per episode nicotine 14 mg/24 hr patch 24 hour 1 patch transdermal DAILY Qty: 28 0RF Rx Instructions: use one per 24 hours prednisone 5 mg tablet 5 mg PO DAILY PRN (Reason: FLARES) Qty: 60 2RF albuterol sulfate [Ventolin HFA] 90 mcg/actuation HFA aerosol inhaler 2 puff inhalation Q6H PRN (Reason: shortness of breath or wheezing) Qty: 8.5 3RF Orencia 125 mg/mL syringe 125 mg SUBCUT .qweek Qty: 4 5RF betamethasone dipropionate 0.05 % ointment 1 applic topical BID Qty: 45 3RF Rx Instructions: Apply to affected area no more than two weeks per month. Not for face or skin folds. fluocinonide 0.05 % ointment 1 applic topical BID Qty: 60 2RF Rx Instructions: Apply to affected area twice daily no more than 2wks per month. Not for face or folds Combivent Respimat 20-100 mcg/actuation mist 1 puff INHALATION Q6H PRN (Reason: Shortness Of Breath) Qty: 4 5RF (DME) Knee Walker See Rx Instructions .Route .MEDSUPPLY Qty: 1 0RF Rx Instructions: As directed HOME- Patient has been instructed to be non-weight bearing to the Right Lower Extremity. epinephrine [EpiPen 2-Carrington] 0.3 mg/0.3 mL Auto-Injector See Rx Instructions .ROUTE .COMPLEX PRN (Reason: Allergic Reaction) Rx Instructions: DIRECTED PRN insulin aspart U-100 [Novolog FlexPen U-100 Insulin] 100 unit/mL (3 mL) insulin pen See Rx Instructions .ROUTE .COMPLEX Rx Instructions: PER SLIDING SCALE glucagon HCl [Glucagon (HCl) Emergency Kit] 1 mg Recon Soln 1 mg SUBCUT Q20M PRN (Reason: blood sugar) Qty: 0 albuterol sulfate 2.5 mg /3 mL (0.083 %) Solution For Nebulization 2.5 mg INHALATION Q6H PRN (Reason: Shortness Of Breath) aspirin 81 mg Tablet,Delayed Release (Dr/Ec) 81 mg PO DAILY@0800 sertraline [Zoloft] 100 mg tablet 100 mg PO DAILY isosorbide mononitrate 30 mg tablet extended release 24 hr 30 mg PO BID oxycodone 15 mg tablet 15 mg PO Q6H PRN (Reason: pain) 7 Days Qty: 28 0RF Referrals: Nel Peacock MD [Primary Care Provider] - Coding Level of Care Code ED Supervisor Paper Machine for Chikis Toro
--- NOTE | 2023-01-13 17:54 | XRR_ITS ---
PROCEDURE INFORMATION: Exam: XR Right Ankle Exam date and time: 01/13/2023 6:41 PM Age: 52 years old Clinical indication: Injury or trauma; Fall; Blunt trauma; Ankle; Right; Additional info: Fusion this am, fall this pm TECHNIQUE: Imaging protocol: Radiologic exam of the right ankle. Views: 3 or more views. COMPARISON: CR XR ankle RT min 3V* [id number] 01/04/2023 2:45 PM FINDINGS: Bones/joints: Comparison with January 04, 2023 demonstrates postsurgical hardware of fusion about the distal tibia and talocalcaneal region of the proximal foot in this patient with bony destruction/fragmentation or Charcot's arthropathy of the ankle. Injury or fall since surgery reveals acute fracture within the distal tibia at the proximal hardware level, with oblique fracture with moderate cortical offset or deformity on the AP and oblique views without significant angulation on the lateral view. This fracture is new from previous exam. An acute fracture seen within the distal shaft of the fibula above the level of the ankle with mild medial angulation on the AP and oblique views and without significant angulation on the lateral view. Soft tissues: Limited evaluation due to overlying cast. Other findings: Overlying cast is seen. XR/XR ankle RT min 3V* [id number] IMPRESSION: 1. Interval postsurgical hardware of fusion of the right ankle since prior exam, as noted above. 2. Interval acute oblique fracture distal shaft of the right tibia at the proximal hardware level and interval acute fracture within the distal shaft of the right fibula, as noted above. 3. Overlying cast.
--- NOTE | 2023-01-13 19:09 | XRR_ITS ---
PROCEDURE INFORMATION: Exam: XR Chest Exam date and time: 01/13/2023 7:15 PM Age: 52 years old Clinical indication: Screening exam; Pre-operative exam; Other: Russ R ankle; Additional info: Pre-op TECHNIQUE: Imaging protocol: Radiologic exam of the chest. Views: 1 view. COMPARISON: CR (CHEST, ) 09/05/2022 10:27 PM FINDINGS: Lungs: Emphysematous change with mild chronic markings with prior exam, without focal infiltrate or consolidation. Pleural spaces: Unremarkable. No pleural effusion. No pneumothorax. Heart/Mediastinum: Upper limits of normal cardiac size. Bones/joints: A couple of old rib fractures are seen on the right. Visualized osseous structures show no acute abnormality. XR/XR chest 1V [id number] IMPRESSION: No acute findings.
--- NOTE | 2023-01-13 19:09 | P.HP_ITS ---
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 Earlier today she had right ankle fusion done. She was discharged home. She says she was getting help getting from the bed to the bedside commode but feels that she turned too quickly and lost her balance and subsequently tripped and fell on her surgical foot. She says before she fell she did experience some lightheadedness and dizziness. She says its been a few years since she has been dealing with foot problems. She says she fell in a ditch and cannot remember when that was. She has been following up with podiatry. She says she had lightheadedness dizziness and therefore she fell in the ditch. She is unable to confirm whether this was this year or before that. She has had no other symptoms. Denies chest pain, shortness of breath, nausea vomiting diarrhea, abdominal pain. On review her podiatry notes it seems that patient had avascular necrosis of the right talus. Charcot foot not ruled out. Patient has been asked to remain strictly nonweightbearing. She is to use a wheelchair. She subsequently developed complete collapse of right talus and was immobilized for 4 weeks with short leg casting and remained nonweightbearing. There was also there was also some evidence of tibial avascular necrosis. Patient does have history of type 2 diabetes mellitus with complication of peripheral neuropathy. She went for an kle fusion today and has now had trauma to surgical site. She has a new fracture proximal to her fixation. She was seen by podiatry in the ER. She will require scheduled ORIF right ankle for 01/15/2023 which will require intramedullary nail that needs to be shipped to her facility. Patient agreeable to half-way facility placement. Medications/Allergies Home Medications Medication Instructions Recorded Confirmed Last Taken Type rosuvastatin 20 mg tablet (Crestor) 20 mg PO DAILY 09/04/19 01/13/23 01/12/23 History omeprazole 40 mg capsule,delayed 40 mg PO DAILY 09/05/19 01/13/23 01/13/23 History release nitroglycerin 0.4 mg sublingual 0.4 mg sublingual Q5M PRN chest 09/09/19 01/13/23 Unknown Rx tablet (Nitrostat) pain 30 days #25 tabs epinephrine 0.3 mg/0.3 mL See Rx Instructions .Route 11/01/19 01/13/23 Unknown History injection, auto-injector (EpiPen .COMPLEX PRN Allergic Reaction 2-Carrington) glucagon HCl 1 mg solution for 1 mg SUBCUT Q20M PRN blood sugar 11/01/1901/13 Unknown History injection (Glucagon (HCl) ##0 Emergency Kit) insulin aspart U-100 100 unit/mL See Rx Instructions .Route .COMPLEX 11/01/19 01/12/23 01/12/23 History (3 mL) subcutaneous pen (Novolog FlexPen U-100 Insulin aspart) albuterol sulfate 2.5 mg/3 mL 2.5 mg inhalation Q6H PRN 04/01/20 01/13/23 12/14/22 History (0.083 %) solution for nebulization Shortness Of Breath nicotine 14 mg/24 hr daily 1 patch transdermal DAILY #28 ea 07/13/20 01/13/23 01/12/23 Rx transdermal patch aspirin 81 mg tablet,delayed 81 mg PO DAILY@0800 08/15/20 01/12/23 01/08/23 History release melatonin 3 mg capsule 3 mg PO DAILY 09/04/20 01/13/23 01/12/23 History apixaban 5 mg tablet (Eliquis) 5 mg PO BID 11/24/20 01/12/23 01/08/23 History metoprolol tartrate 25 mg tablet 25 mg PO BID #180 tabs 12/10/20 01/13/23 01/13/23 Rx tamsulosin 0.4 mg capsule (Flomax) 0.4 mg PO DAILY 05/22/21 01/13/23 01/12/23 History oxycodone 15 mg tablet 15 mg PO BID PRN pain 30 days #60 08/04/21 01/13/23 01/13/23 Rx tabs diclofenac sodium 1 % topical gel 4 g topical QID #100 grams 09/30/21 01/13/23 Unknown Rx (Voltaren Arthritis Pain) prednisone 5 mg tablet 5 mg PO DAILY PRN FLARES #60 tabs 02/14/22 01/13/23 Unknown Rx enalapril maleate 10 mg tablet 5 mg PO DAILY 03/02/22 01/13/23 01/12/23 History albuterol sulfate 90 mcg/actuation 2 puff inhalation Q6H PRN 05/20/22 01/13/23 Unknown Rx aerosol inhaler (Ventolin HFA) shortness of breath or wheezing #8.5 grams insulin glargine 100 unit/mL 50 unit SUBCUT DAILY@0800 06/08/22 01/12/23 01/12/23 History subcutaneous solution (Lantus U-100 Insulin) ropinirole 2 mg tablet 3 mg PO BEDTIME 06/08/22 01/13/23 01/12/23 History abatacept 125 mg/mL subcutaneous 125 mg SUBCUT .qweek #4 mL 07/29/22 01/13/23 01/06/23 Rx syringe (Orencia) alprazolam 0.25 mg tablet 0.25 mg PO DAILY PRN anxiety 09/16/22 01/13/23 01/11/23 History betamethasone dipropionate 0.05 % 1 applic topical BID #45 grams 10/12/22 01/13/23 01/11/23 Rx topical ointment fluocinonide 0.05 % topical 1 applic topical BID #60 grams 10/12/22 01/13/23 Unknown Rx ointment ipratropium 20 mcg-albuterol 100 1 puff inhalation Q6H PRN 10/17/22 01/12/23 01/12/23 Rx mcg/actuation mist for inhalation Shortness Of Breath #4 grams (Combivent Respimat) gabapentin 300 mg capsule 600 mg PO TID 30 days #180 caps 11/10/22 01/13/23 01/13/23 Rx Knee Walker #1 ea 11/11/22 01/04/23 Unknown Rx isosorbide mononitrate 30 mg 30 mg PO BID 01/12/23 01/13/23 01/13/23 History tablet,extended release 24 hr sertraline 100 mg tablet (Zoloft) 100 mg PO DAILY 01/12/23 01/13/23 01/12/23 History oxycodone 15 mg tablet 15 mg PO Q6H PRN pain 7 days #28 01/13/23 Unknown Rx tabs Allergies Allergy/AdvReac Type Severity Reaction Status Date / Time bee venom protein (honey bee) Allergy ALGY-Anaphy Verified 01/13/23 17:34 laxis PFSH Acute PFSH: Medical History Avulsion fracture of left ankle Cervical spondylosis Chronic anticoagulation Cigarette smoker motivated to quit Claudication Closed fracture of right distal fibula COVID-19 DDD (degenerative disc disease), cervical Diabetes Emphysema/COPD Essential hypertension Fibromyalgia Immunocompromised Long-term current use of opiate analgesic Onychodystrophy Osteoporosis Pain, joint, multiple sites Portal vein thrombosis Rheumatoid arthritis Spondylosis of lumbar region without myelopathy or radiculopathy Syncope Tobacco use disorder Surgical History H/O dilation and curettage Hx laparoscopic cholecystectomy Hx of section (~1989) Hx of hysterectomy Family History Mother Stroke Cancer SKIN CANCER Sister Stroke Other Diabetes Myocardial infarct Denies family history of Anesthesia complication Bleeding disorder Social History Smoking and tobacco status: current every day smoker cigarettes Years cigarettes smoked: 40 [ Other cigarette details: 3 cigarettes/day currently] Quit status (tobacco): considering quitting Second hand smoke exposure: Yes Smoking risk assessment/counseling performed?: Yes Alcohol intake: former Substance/Drug Use: never Caregiver/support person: Yes Lives independently: Yes Household members: spouse Marital status: Current occupational status: disabled Pets and animals: Yes Do you think of yourself as: Straight/Heterosexual Current gender identity: Female Vitals/I&O/Wt Last Vital Signs Temp 98.5 F 01/13/23 17:29 Pulse 67 01/13/23 17:29 Resp 18 01/13/23 17:29 BP 120/76 01/13/23 17:29 Pulse Ox 67 L 01/13/23 17:29 O2 Del Method Room Air 01/13/23 17:29 Weight last 48 hrs Weight 99.79 kg Physical Exam Narrative: General: Alert oriented x3, patient seen laying in bed appearing comfortable at this time. HEENT: Normocephalic, atraumatic, EOMI, breathing normally Cardio: Regular rate rhythm, normal S1-S2, Respiratory: Clear to auscultation bilaterally GI: Abdomen soft, nontender, nondistended, bowel sounds + Extremities: Right leg in a cast. Data 01/13/23 19:18 01/13/23 19:18 A&P Assessment and plan (1) Closed fracture of right distal fibula: (2) Risk for falls: (3) Closed fracture of right distal tibia: (4) Closed right ankle fracture: (5) Fall at home: (6) Acute gout of right ankle: Qualifiers: Gout etiology: idiopathic Qualified Code(s): M10.071 - Idiopathic gout, right ankle and foot (7) Rheumatoid arthritis: (8) Chronic anticoagulation: (9) Portal vein thrombosis: (10) Diabetes: (11) Essential hypertension: Plan #New proximal right ankle fracture #Postop day 0 right ankle fusion #Chronic anticoagulation #History of portal vein and fibrosis #COPD #Hypertension #Immunocompromise status #Avascular necrosis of tibia and right ankle #Charcot's foot #Fall ? Patient will require going to the OR for ORIF right ankle 01/15/2023 and require intramedullary nail that needs to be shipped to her facility. ? Patient is high risk for limb loss due to underlying comorbidities including diabetes mellitus immunocompromise status due to disease modifying medications for rheumatoid arthritis and has a history of avascular necrosis of right talus. She is a high fall risk. She will require assistance with everyday living and requires assistance for transfers. She is to remain strict nonweightbearing to right lower extremity potentially for next 3 months pending her bony healing rate. Transfer to SNF has been recommended at discharge at this time by the delivery consultant which I definitely agree with at this time. ? Strict blood glucose control ? Hold Eliquis at this time ? We will give her heparin subcu 5000 bid and hold the morning dose on day of surgery. This was discussed with podiatry. -Morphine 2 mg every 4 hours as needed for pain ? Docusate senna to avoid opiate-induced constipation ? Moderate intensity sliding scale insulin ? Patient is lactic acid is 4.0. Normal saline bolus x1 to be given. Placed on normal saline 100 cc/h thereafter. We will cautiously give fluids due to history of diastolic dysfunction on previous echo. ? DuoNeb every 4-6 hours as needed ? Continue on aspirin, enalapril, Imdur, metoprolol tartrate twice daily, Protonix daily, Zoloft ? Admit to medical surgical floor. ? We will place on vancomycin and cefepime empirically ? Further imaging as per podiatry at this time. I will check EKG, chest x-ray for preop purposes for surgery on Monday. -Discussed with RN and Dr. Sales and the ER physician. Full code Heparin SQ twice daily for DVT prophylaxis Attestations Medical Necessity Statement*: Greater than 2 midnight stay for management of ankle fracture Coding Level of Care Code G0425 (30 min) TH Encounter Time (min): 45 Patient seen via Telehealth in the acute care setting (hospital or ED location) by agreement and consent of patient or patient enrollment eligibility representative. Telehealth t echnology used during the visit includes video and audio. This patient encounter is appropriate and reasonable under the circumstances given the patient?s particular presentation at this time. The patient has been advised of the potential risks and limitations of this mode of treatment (including but not limited to the absence of in-person examination at this time) and has agreed to be treated by an off-site physician for this visit. If deemed clinically necessary from this telehealth visit, or if condition or consent for telehealth visit changes, an in-person visit will be arranged. For this encounter, total time for the origination of telehealth care on this date is as shown. Diagnoses Closed fracture of right distal fibula S82.831A Risk for falls Z91.81 Closed fracture of right distal tibia S82.301A Closed right ankle fracture S82.891A Fall at home W19.XXXA; Y92.009 Acute gout of right ankle M10.071 Gout etiology: idiopathic Rheumatoid arthritis M06.9 Chronic anticoagulation Z79.01 Portal vein thrombosis I81 Diabetes E11.9 Essential hypertension I10
[2023-01-13] MEDS: fentaNYL 50 mcg/mL INJ 2mL IVP (19:13)
[2023-01-13 19:33] LABS: Basophils % 0.1 %; Hematocrit 32.3 % (37.0-47.0); Hemoglobin 9.9 g/dL (11.5-15.3); Lymphocytes % 7.2 %; Mean Corpuscular HGB Conc 30.7 g/dL (30.0-36.0); Mean Corpuscular Hemoglobin 25.8 pg (28.0-34.0); Mean Corpuscular Volume 84.1 fl (81-99); Mean Platelet Volume 10.5 fL (7.4-10.4); Monocytes # 0.6 10^3/uL (0.2-0.9); Monocytes % 4.2 %; Neutrophils # 11.77 10^3/uL (1.8-7.7); Nucleated Red Blood Cells % 0 %; Platelet Count 164 10^3/cmm (130-400); Red Blood Count 3.84 10^6/uL (4.1-5.3); Red Cell Distribution Width 15.9 % (12.1-15.1); White Blood Count 13.4 10^3/uL (4.0-10.0)
[2023-01-13 19:51] LABS: Alanine Aminotransferase 12 U/L (0-33); Alkaline Phosphatase 146 U/L (35-105); Anion Gap 14.9 (5-19); Aspartate Amino Transferase 15 U/L (0-32); Blood Urea Nitrogen 15 mg/dL (6-20); Calcium 8.2 mg/dL (8.5-10.5); Carbon Dioxide 19 mmol/L (22-29); Chloride 99 mmol/L (98-107); Globulin 2.5 g/dL (1.3-4.6); Glomerular Filtration Rate 65.2 mL/min (90-130); Glucose 463 mg/dL (65-115); Magnesium 1.9 mg/dL (1.7-2.3); Osmolality Calculated 287 mOsm/kg (285-295); Potassium 4.9 mmol/L (3.5-5.1); Sodium 128 mmol/L (136-145); Total Bilirubin 0.3 mg/dL (0.15-1.2); Total Protein 5.5 g/dL (6.6-8.7)
[2023-01-13] MEDS: ampicillin-sulbactam 1.5 GM in sodium chloride 0.9% (plus) 50 ML IV (19:56)
[2023-01-13] MEDS: heparin 5,000 unit/mL INJ 1 mL 5000 UNIT SUBCUT (20:15)
--- NOTE | 2023-01-13 21:02 | P.CONIM_ITS ---
Providers/Reason For Consult Consulting Physician/Specialty*: Anthony Sales D.P.M. Reason for Consult*: Acute right ankle fracture Attending Physician: Pamela Monge MD Primary Care Provider: Nel Peacock MD History of Present Illness History of Present Illness Erin Kelley is a 52 year old female presents to the emergency department status post fall at home, she fell utilizing the restroom and has a gross deformity to her right ankle. Patient underwent a tibial talocalcaneal arthrodesis this morning 01/13/2023 was an outpatient surgery on her right ankle. This was secondary to avascular necrosis of her right talus. Patient was discharged home to be nonweightbearing, she was stabilized in a posterior splint with stirrup. As above she slipped going to the restroom and reinjured her right leg, sustained a new acute fracture proximal to her fixation. Patient denies any subjective nausea, vomiting, fever, chills, shortness of breath or chest pain. Review of Systems Const: Denies: fever(s), chills or fatigue Eyes: Denies: change in vision Card: Reports: swelling of feet/ankles; Denies: chest pain or palpitations Resp: Denies: dyspnea GI: Denies: abdominal pain, nausea, vomiting, diarrhea or constipation Musc: Reports: extremity pain Skin/Breast: Denies: changes in skin color Neuro: Reports: difficulty walking; Denies: numbness in extremities Medications/Allergies Home Medications Medication Instructions Recorded Confirmed Last Taken Type rosuvastatin 20 mg tablet (Crestor) 20 mg PO DAILY 09/04/19 01/13/23 01/12/23 History omeprazole 40 mg capsule,delayed 40 mg PO DAILY 09/05/19 01/13/23 01/13/23 History release nitroglycerin 0.4 mg sublingual 0.4 mg sublingual Q5M PRN chest 09/09/19 01/13/23 Unknown Rx tablet (Nitrostat) pain 30 days #25 tabs epinephrine 0.3 mg/0.3 mL See Rx Instructions .Route 11/01/19 01/13/23 Unknown History injection, auto-injector (EpiPen .COMPLEX PRN Allergic Reaction 2-Carrington) glucagon HCl 1 mg solution for 1 mg SUBCUT Q20M PRN blood sugar 11/01/19 01/13/23 Unknown History injection (Glucagon (HCl) ##0 Emergency Kit) insulin aspart U-100 100 unit/mL See Rx Instructions .Route .COMPLEX 11/01/19 01/12/23 01/12/23 History (3 mL) subcutaneous pen (Novolog FlexPen U-100 Insulin aspart) albuterol sulfate 2.5 mg/3 mL 2.5 mg inhalation Q6H PRN 04/01/20 01/13/23 12/14/22 History (0.083 %) solution for nebulization Shortness Of Breath nicotine 14 mg/24 hr daily 1 patch transdermal DAILY #28 ea 07/13/20 01/13/23 01/12/23 Rx transdermal patch aspirin 81 mg tablet,delayed 81 mg PO DAILY@0800 08/15/20 01/12/23 01/08/23 History release melatonin 3 mg capsule 3 mg PO DAILY 09/04/20 01/13/23 01/12/23 History apixaban 5 mg tablet (Eliquis) 5 mg PO BID 11/24/20 01/12/23 01/08/23 History metoprolol tartrate 25 mg tablet 25 mg PO BID #180 tabs 12/10/20 01/13/23 01/13/23 Rx tamsulosin 0.4 mg capsule (Flomax) 0.4 mg PO DAILY 05/22/21 01/13/23 01/12/23 History oxycodone 15 mg tablet 15 mg PO BID PRN pain 30 days #60 08/04/21 01/13/23 01/13/23 Rx tabs diclofenac sodium 1 % topical gel 4 g topical QID #100 grams 09/30/21 01/13/23 Unknown Rx (Voltaren Arthritis Pain) prednisone 5 mg tablet 5 mg PO DAILY PRN FLARES #60 tabs 02/14/22 01/13/23 Unknown Rx enalapril maleate 10 mg tablet 5 mg PO DAILY 03/02/22 01/13/23 01/12/23 History albuterol sulfate 90 mcg/actuation 2 puff inhalation Q6H PRN 05/20/22 01/13/23 Unknown Rx aerosol inhaler (Ventolin HFA) shortness of breath or wheezing #8.5 grams insulin glargine 100 unit/mL 50 unit SUBCUT DAILY@0800 06/08/22 01/12/23 01/12/23 History subcutaneous solution (Lantus U-100 Insulin) ropinirole 2 mg tablet 3 mg PO BEDTIME 06/08/22 01/13/23 01/12/23 History abatacept 125 mg/mL subcutaneous 125 mg SUBCUT .qweek #4 mL 07/29/22 01/13/23 01/06/23 Rx syringe (Orencia) alprazolam 0.25 mg tablet 0.25 mg PO DAILY PRN anxiety 09/16/22 01/13/23 01/11/23 History betamethasone dipropionate 0.05 % 1 applic topical BID #45 grams 10/12/22 01/13/23 01/11/23 Rx topical ointment fluocinonide 0.05 % topical 1 applic topical BID #60 grams 10/12/22 01/13/23 Unknown Rx ointment ipratropium 20 mcg-albuterol 100 1 puff inhalation Q6H PRN 10/17/22 01/12/23 01/12/23 Rx mcg/actuation mist for inhalation Shortness Of Breath #4 grams (Combivent Respimat) gabapentin 300 mg capsule 600 mg PO TID 30 days #180 caps 11/10/22 01/13/23 01/13/23 Rx Knee Walker #1 ea 11/11/22 01/04/23 Unknown Rx isosorbide mononitrate 30 mg 30 mg PO BID 01/12/23 01/13/23 01/13/23 History tablet,extended release 24 hr sertraline 100 mg tablet (Zoloft) 100 mg PO DAILY 01/12/23 01/13/23 01/12/23 History oxycodone 15 mg tablet 15 mg PO Q6H PRN pain 7 days #28 01/13/23 Unknown Rx tabs Allergies Allergy/AdvReac Type Severity Reaction Status Date / Time bee venom protein (honey bee) Allergy ALGY-Anaphy Verified 01/13/23 17:34 laxis PFSH Acute PFSH: Medical History Avulsion fracture of left ankle Cervical spondylosis Chronic anticoagulation Cigarette smoker motivated to quit Claudication Closed fracture of right distal fibula COVID-19 DDD (degenerative disc disease), cervical Diabetes Emphysema/COPD Essential hypertension Fibromyalgia Immunocompromised Long-term current use of opiate analgesic Onychodystrophy Osteoporosis Pain, joint, multiple sites Portal vein thrombosis Rheumatoid arthritis Spondylosis of lumbar region without myelopathy or radiculopathy Syncope Tobacco use disorder Surgical History H/O dilation and curettage Hx laparoscopic cholecystectomy Hx of section (~1989) Hx of hysterectomy Family History Mother Stroke Cancer SKIN CANCER Sister Stroke Other Diabetes Myocardial infarct Denies family history of Anesthesia complication Bleeding disorder Social History Smoking and tobacco status: current every day smoker cigarettes Years cigarettes smoked: 40 [ Other cigarette details: 3 cigarettes/day currently] Quit status (tobacco): considering quitting Second hand smoke exposure: Yes Smoking risk assessment/counseling performed?: Yes Alcohol intake: former Substance/Drug Use: never Caregiver/support person: Yes Lives independently: Yes Household members: spouse Marital status: Current occupational status: disabled Pets and animals: Yes Do you think of yourself as: Straight/Heterosexual Current gender identity: Female Vitals/I&O/Wt Last Vital Signs Temp 98.5 F 01/13/23 17:29 Pulse 67 01/13/23 17:29 Resp 18 01/13/23 17:29 BP 120/76 01/13/23 17:29 Pulse Ox 67 L 01/13/23 17:29 O2 Del Method Room Air 01/13/23 17:29 Weight last 48 hrs Weight 220 lb Physical Exam Narrative: GENERAL: Patient is alert and oriented ?3 and in no acute distress. The following is a focused right lower extremity exam. VASCULAR: Dorsalis pedis palpable, posterior tibial artery palpable. Capillary refill time less than 3 seconds to the distal hallux bilaterally. Calf is supple and nontender proximally and distally. NEUROLOGICAL: Diminished protective sensation to the bilateral lower extremities secondary to neuropathy. DERMATOLOGICAL: Incision of the right anterior ankle is well coapted with sutures intact, no dehiscence. No active bleeding. No kishan-incisional erythema or warmth. MUSCULOSKELETAL: Gross deformity at the right ankle, the right ankle and foot are externally rotated in relation to the right leg. Able to wiggle toes on command. Data 01/13/23 19:18 01/13/23 19:18 Micro: Microbiology 01/13/23 19:24 Blood Culture - Preliminary Blood SPECIMEN COLLECTED 01/13/23 19:18 Blood Culture - Preliminary Blood SPECIMEN COLLECTED A&P Assessment and plan (1) Closed right ankle fracture: (2) Fall at home: (3) Risk for falls: (4) Immunocompromised: (5) Fracture of distal end of tibia with fibula: Qualifiers: Encounter type: initial encounter Fracture type: closed Laterality: right Qualified Code(s): S82.831A - Other fracture of upper and lower end of right fibula, initial encounter for closed fracture; S82.301A - Unspecified fracture of lower end of right tibia, initial encounter for closed fracture (6) Rheumatoid arthritis: (7) Long-term current use of opiate analgesic: (8) Diabetes: Plan 52-year-old female presents with acute fracture right distal fibula and tibia. Patient has a new injury, fell at home when transferring to her bathroom. Fracture is proximal to fixation that was performed 01/13/2023. -Scheduled ORIF right ankle for 01/15/2023, will require intramedullary nail that needs to be shipped to our facility. This equipment does not reside in house. -DVT prophylaxis per hospitalist, plan on holding a.m. dose of heparin Monday01/15/2023 for surgery -Patient agreeable for [facility] facility placement. Patient is at high risk for loss of limb, underlying core morbidities include diabetes mellitus t ype 2, immunocompromise secondary to disease modifying medications for rheumatoid arthritis, has a history of avascular necrosis of the right talus. Patient is a high fall risk. Patient requires assistance with everyday living and requires assistance for transfers. Patient is to remain strict non weightbearing to her right lower extremity potentially for the next 3 months pending her bony healing rate, this will certainly be suppressed and delayed due to her comorbidities. -N.p.o. 01/14/2023 at midnight -Strict nonweightbearing right lower extremity Greatly appreciate hospitalist medical management during this hospitalization. Podiatry will follow. Dr. Goodman PreciadoPAbdelrahman cell phone number [phone]. Coding Level of Care Code Acute Code for Chg Fwd Diagnoses Closed right ankle fracture S82.891A Fall at home W19.XXXA; Y92.009 Risk for falls Z91.81 Immunocompromised D84.9 Fracture of distal end of tibia with fibula S82.831A; S82.301A Encounter type: initial encounter Fracture type: closed Laterality: right Rheumatoid arthritis M06.9 Long-term current use of opiate analgesic Z79.891 Diabetes E11.9
[2023-01-13 21:17] VITALS: BP 154/71; PULSE 68; RESP 18; TEMP 37.2; O2SAT 93
[2023-01-13 21:17] LABS: Reflex Lactate Order REFLEX LACTIC ORDERD
[2023-01-13] MEDS: budesonide 0.5 mg/2 mL Neb INHALATION (21:43)
[2023-01-13 21:45] VITALS: PULSE 66; RESP 16; O2SAT 97
--- NOTE | 2023-01-13 21:52 | ECG_ITS ---
[facility] Test Date: 2023-01-13 Pat Name: Erin Kelley Department: Room: 270 Gender: Female Edger Runner: : 1970 Requested By: Pamela Monge Order Number: [id number] Shilpa MD: Terrell Macias M.D. Measurements Intervals [place] Rate: 63 P: 36 ME: 167 QRS: 30 QRSD: 88 T: 30 QT: 443 QTc: 455 Interpretive Statements SINUS RHYTHM MODERATE ST DEPRESSION [0.05+ mV ST DEPRESSION] Compared to ECG 09/05/2022 23:40:41 No significant changes Electronically Signed On 01-14-2023 1:10:17 CDT by Terrell Macias M.D. [id number]
[2023-01-13 21:55] LABS: Lactic Acid level (Lactate) 2.8 mmol/L (0.5-2.2)
[2023-01-13] MEDS: sodium chloride 0.9% 1,000 ML 999 ML IV (21:55)
[2023-01-13 22:02] LABS: Glucose Point of Care 476 mg/dL (70-110)
[2023-01-13] MEDS: insulin lispro 100 unit/1 mL SUBCUT (22:17)
[2023-01-13 22:22] VITALS: RESP 16
[2023-01-13] MEDS: morphine 4 mg/mL SDV 1 mL 2 MG IVP (22:22)
[2023-01-13] MEDS: sodium chloride 0.9% 1,000 ML 75 ML IV (23:09)
[2023-01-14] VITALS (15 sets, daily range): BP systolic 104–148; BP diastolic 54–87; PULSE 68–83; RESP 1–18; TEMP 36.7–37.5; O2SAT 89–95
[2023-01-14] MEDS: ampicillin-sulbactam 3 GM in sodium chloride 0.9% (plus) 50 ML IV (01:25)
[2023-01-14] MEDS: cefepime 1,000 MG in sodium chloride 0.9% (plus) 50 ML 100 MG IV ×2 (02:20→14:50)
[2023-01-14] MEDS: vancomycin 1,250 MG/250 ML PIGGYBACK 250 MG IV ×2 (02:57→20:18)
[2023-01-14] MEDS: ketorolac 30 mg/mL INJ 15 MG IVP ×2 (04:28→18:22)
[2023-01-14 04:57] LABS: Basophils % 0.2 %; Hematocrit 30.1 % (37.0-47.0); Hemoglobin 9.3 g/dL (11.5-15.3); Lymphocytes # 1.3 10^3/uL (0.8-4.8); Lymphocytes % 10.8 %; Mean Corpuscular HGB Conc 30.9 g/dL (30.0-36.0); Mean Corpuscular Hemoglobin 26.3 pg (28.0-34.0); Mean Platelet Volume 10.7 fL (7.4-10.4); Monocytes # 0.6 10^3/uL (0.2-0.9); Monocytes % 4.7 %; Neutrophils # 9.89 10^3/uL (1.8-7.7); Neutrophils % 83.8 %; Nucleated Red Blood Cells % 0 %; Platelet Count 166 10^3/cmm (130-400); Red Blood Count 3.54 10^6/uL (4.1-5.3); White Blood Count 11.8 10^3/uL (4.0-10.0)
[2023-01-14 05:13] LABS: Lactic Sepsis W/Reflex 2.7 mmol/L (0.5-2.2)
[2023-01-14 05:26] LABS: Alanine Aminotransferase 10 U/L (0-33); Albumin Level 2.7 g/dL (3.5-5.2); Alkaline Phosphatase 140 U/L (35-105); Anion Gap 13.3 (5-19); Aspartate Amino Transferase 14 U/L (0-32); Blood Urea Nitrogen 13 mg/dL (6-20); Calcium 8.2 mg/dL (8.5-10.5); Carbon Dioxide 23 mmol/L (22-29); Chloride 104 mmol/L (98-107); Globulin 2.6 g/dL (1.3-4.6); Glomerular Filtration Rate 87.2 mL/min (90-130); Glucose 314 mg/dL (65-115); Magnesium 1.9 mg/dL (1.7-2.3); Osmolality Calculated 294 mOsm/kg (285-295); Potassium 4.3 mmol/L (3.5-5.1); Sodium 136 mmol/L (136-145); Total Bilirubin 0.3 mg/dL (0.15-1.2); Total Protein 5.3 g/dL (6.6-8.7)
[2023-01-14 06:02] LABS: INR 1.05 (0.8-1.2)
[2023-01-14 06:31] LABS: Reflex Lactate Order REFLEX LACTIC ORDERD
[2023-01-14 06:40] LABS: Glucose Point of Care 311 mg/dL (70-110)
[2023-01-14] MEDS: morphine 4 mg/mL SDV 1 mL 2 MG IVP ×2 (07:50→12:09)
--- NOTE | 2023-01-14 07:51 | P.PN_ITS ---
Subjective Subjective: Patient seen bedside this morning. No acute events overnight. She sustained a new acute fracture superior to her hardware right lower extremity. Planning on ORIF tomorrow AM. Patient denies any subjective nausea, vomiting, fever, chills, shortness of breath or chest pain. Vitals/I&O/Wt Last Vital Signs Temp 98.5 F 01/14/23 04:52 Pulse 68 01/14/23 04:52 Resp 18 01/14/23 04:52 BP 144/63 01/14/23 04:52 Pulse Ox 95 01/14/23 04:52 O2 Del Method Room Air 01/13/23 22:24 01/13/23 01/14/23 01/14/23 22:59 06:59 14:59 Intake Total 50 / 50 0 / 2120 Output Total 2500 / 2500 Balance 50 / 50 -430 / -380 Weight last 48 hrs Weight 220 lb Physical Exam Narrative: GENERAL: Patient is alert and oriented ?3 and in no acute distress. The following is a focused right lower extremity exam. VASCULAR: Dorsalis pedis palpable, posterior tibial artery palpable. Capillary refill time less than 3 seconds to the distal hallux bilaterally. Calf is supple and nontender proximally and distally. NEUROLOGICAL: Diminished protective sensation to the bilateral lower extremities secondary to neuropathy. DERMATOLOGICAL: Incision of the right anterior ankle is well coapted with sutures intact, no dehiscence. No active bleeding. No kishan-incisional erythema or warmth right ankle. MUSCULOSKELETAL: Gross deformity at the right ankle, the right ankle and foot are externally rotated in relation to the right leg. Able to wiggle toes on command. Urinary Catheter Management: Dent: Cath Placed During This Visit: yes Reason for Continuing Indwelling Catheter: Other Urinary Catheter Date of Insertion: 01/13/23 Urinary Catheter Time of Insertion: 20:00 Data 01/14/23 03:37 01/14/23 03:37 Micro: Microbiology 01/13/23 19:24 Blood Culture - Preliminary Blood SPECIMEN COLLECTED 01/13/23 19:18 Blood Culture - Preliminary Blood SPECIMEN COLLECTED A&P Assessment and plan (1) Closed right ankle fracture: (2) Fall at home: (3) Risk for falls: (4) Immunocompromised: (5) Fracture of distal end of tibia with fibula: Qualifiers: Encounter type: initial encounter Fracture type: closed Laterality: right Qualified Code(s): S82.831A - Other fracture of upper and lower end of right fibula, initial encounter for closed fracture; S82.301A - Unspecified fracture of lower end of right tibia, initial encounter for closed fracture (6) Rheumatoid arthritis: (7) Long-term current use of opiate analgesic: (8) Diabetes: Plan 52-year-old female presents with acute fracture right distal fibula and tibia. Patient has a new injury, fell at home when transferring to her bathroom. New acute fracture is proximal to fixation that was performed 01/13/2023. -ORIF right ankle tomorrow a.m. 01/15/2023 -N.p.o. tonight at midnight -DVT prophylaxis per hospitalist, plan on holding a.m. dose of heparin Monday01/15/2023 for surgery -Strict nonweightbearing right lower extremity. -Patient agreeable for long-term facility placement. Patient is at high risk for loss of limb, underlying core morbidities include diabetes mellitus type 2, immunocompromise secondary to disease modifying medications for rheumatoid arthritis, has a history of avascular necrosis of the right talus. Patient is a high fall risk. Patient requires assistance with everyday living and requires assistance for transfers. Patient is to remain strict nonweightbearing to her right lower extremity potentially for the next 3 months pending her bony healing rate, this will certainly be suppressed and delayed due to her comorbidities. Greatly appreciate hospitalist medical management during this hospitalization. Podiatry will follow. Dr. Goodman Hastings cell phone number [phone]. Attestations Medical Necessity Statement*: Right ankle fracture Coding Level of Care Code Acute Code for g Fwd Diagnoses Closed right ankle fracture S82.891A Fall at home W19.XXXA; Y92.009 Risk for falls Z91.81 Immunocompromised D84.9 Fracture of distal end of tibia with fibula S82.831A; S82.301A Encounter type: initial encounter Fracture type: closed Laterality: right Rheumatoid arthritis M06.9 Long-term current use of opiate analgesic Z79.891 Diabetes E11.9
[2023-01-14 08:13] LABS: Lactic Acid level (Lactate) 1.6 mmol/L (0.5-2.2)
[2023-01-14] MEDS: budesonide 0.5 mg/2 mL Neb INHALATION ×2 (09:30→19:52)
[2023-01-14] MEDS: ipratropium-albuterol 3 mL Neb INHALATION ×2 (09:30→19:52)
[2023-01-14] MEDS: insulin lispro 100 unit/1 mL SUBCUT ×4 (09:55→20:21)
--- NOTE | 2023-01-14 11:13 | PC.PT ---
PT and nurse agreed to hold eval today due to patient undergoing ORIF of R lower leg tomorrow. She will be more appropriate for transfer training and HEP education post-surgery. Per social insurance specialist, she has Medicaid and will need detailed therapy notes and HEP program upon discharge. Social work is checking on Medicare status.
[2023-01-14 11:47] LABS: Glucose Point of Care 344 mg/dL (70-110)
[2023-01-14] MEDS: sodium chloride 0.9% 1,000 ML 75 ML IV ×2 (12:04→20:17)
--- NOTE | 2023-01-14 12:20 | PC.OT ---
discussed with nurse ,OT and nurse agreed to hold therapy due to patient having ORIF of right leg tomorrow .
[2023-01-14] MEDS: HYDROmorphone 1 mg/mL INJ 1 mL IVP ×3 (14:48→22:59)
[2023-01-14 17:01] LABS: Glucose Point of Care 149 mg/dL (70-110)
[2023-01-14] MEDS: pantoprazole DR 40 mg Tablet PO (18:09)
--- NOTE | 2023-01-14 19:54 | PC.NURSE ---
pts blood sugar is at 153
--- NOTE | 2023-01-14 21:17 | P.PN_ITS ---
Subjective Subjective: Her pain is not controlled at all with morphine. Requests for Dilaudid for breakthrough pain which she has found in the past is the only medicine that takes care of pain for her. She otherwise states that she has history of a possible heart attack in the past. States she had undergone assessment with stress testing and had followed up with cardiology. If she were to walk a while she may develop chest pain with that, probably at 1/4 mile distance. May get short of breath. Does have histo ry of COPD, normally on oxygen. Vitals/I&O/Wt Last Vital Signs Temp 98.4 F 01/14/23 19:52 Pulse 70 01/14/23 20:02 Resp 17 01/14/23 19:53 BP 104/70 01/14/23 19:52 Pulse Ox 93 01/14/23 19:53 O2 Del Method Room Air 01/14/23 19:53 O2 Flow Rate 93 01/14/23 09:31 01/14/23 01/14/23 01/14/23 06:59 14:59 22:59 Intake Total 2070 / 2120 1328.75 / 1328.75 666.25 / 1995.00 Output Total 2500 / 2500 1400 / 1400 Balance -430 / -380 1328.75 / 1328.75 -733.75 / 595.00 Weight last 48 hrs Weight 99.79 kg Physical Exam Narrative: Accompanied by her . Const: COMMON NORMALS: patient oriented x3 and alert GENERAL APPEARANCE: cooperative ORIENTATION/CONSCIOUSNESS: Yes awake HENMT: COMMON NORMALS: oropharynx normal Neck/C-Spine: COMMON NORMALS: no JVD Resp: COMMON NORMALS: normal respiratory effort and clear to auscultation bilaterally AUSCULTATION: clear to auscultation bilaterally Cardio: COMMON NORMALS: no JVD, regular rhythm, S1 normal heart sound present, S2 normal heart sound present and No murmurs present (Cardio) RHYTHM: regular rhythm HEART SOUNDS: S1 normal heart sound present and S2 normal heart sound present GI: COMMON NORMALS: Normal to inspection, nondistended, normoactive bowel soun ds present, Soft to palpation and non-tender PALPATION: Yes Soft to palpation Extremity: COMMON NORMALS: no joint enlargement and no pedal edema OTHER: Right ankle in immobilizer. Toes pink, warm. Neuro: COMMON NORMALS: patient oriented x3 and moves all extremities SENSORIUM/ORIENTATION: Yes alert Skin: COMMON NORMALS: no rashes or lesions noted GENERAL SKIN EXAM: no rashes or lesions noted Urinary Catheter Management: Dent: Cath Placed During This Visit: yes Reason for Continuing Indwelling Catheter: Other Urinary Catheter Date of Insertion: 01/13/23 Urinary Catheter Time of Insertion: 20:00 Data 01/14/23 03:37 01/14/23 03:37 Micro: Microbiology 01/13/23 19:24 Blood Culture - Preliminary Blood NEGATIVE TO DATE 01/13/23 19:18 Blood Culture - Preliminary Blood NEGATIVE TO DATE A&P Assessment and plan (1) Closed fracture of right distal fibula: (2) Risk for falls: (3) Closed fracture of right distal tibia: (4) Closed right ankle fracture: (5) Fall at home: (6) Acute gout of right ankle: Qualifiers: Gout etiology: idiopathic Qualified Code(s): M10.071 - Idiopathic gout, right ankle and foot (7) Rheumatoid arthritis: (8) Chronic anticoagulation: (9) Portal vein thrombosis: (10) Diabetes: (11) Essential hypertension: Plan #New proximal right ankle fracture #Postop day 0 right ankle fusion #Chronic anticoagulation #History of portal vein and fibrosis #COPD #Hypertension #Immunocompromise status #Avascular necrosis of tibia and right ankle #Charcot's foot #Fall Reports he may have had a question of NM in the past, answers in the affirmative to developing chest pain with exertion. estimates it could be after quarter mile, although she states she does not walk quite that much due to frequent falls. With exertion may develop shortness of breath as well. Noted previously abnormal stress test. Noted ER visit with chest pain earlier this year. Coronary disease risk factors include smoking, DM, HTN, obesity. On EKG noted nonspecific changes on my interpretation, T wave inversions in V1-3. Discussed with podiatry potential risk for cardiac ischemic complication, request for cardiology consultation, discussed with cardiology, appreciate ass essment and recommendations preceding her ankle surgery with procedure currently delayed to allow brand specialist to evaluate her. Discussed with nursing staff asking to also let her know was planning to be here early tomorrow morning. Continue n.p.o. in case needing angiographic cardiac evaluation, versus proceeding with surgery later on. She additionally reports that morphine is not helping with pain. Stop morphine. At home takes 15 mg oxycodone. Switch to Dilaudid for breakthrough pain, oxycodone for moderate pain. Naloxone as needed in case of respiratory depression. Continue bowel regimen. Noted leukocytosis, 11.8. Afebrile. Follow-up CBC. Platelets noted 166. Currently empirically on cefepime and vancomycin. Electrolytes WNL. Lactic acid initially 2.7, but with improvement to 1.6. Stop IV fluid. Hold enalapril. ? Patient will require going to the OR for ORIF right ankle 01/15/2023 and require intramedullary nail that needs to be shipped to her facility. ? Patient is high risk for limb loss due to underlying comorbidities including diabetes mellitus immunocompromise status due to disease modifying medications for rheumatoid arthritis and has a history of avascular necrosis of right talus. She is a high fall risk. She will require assistance with everyday living and requires assistance for transfers. She is to remain strict nonweightbearing to right lower extremity potentially for next 3 months pending her bony healing rate. Transfer to SNF has been recommended at discharge at this time by the instructional systems design consultant which I definitely agree with at this time. Full code Heparin SQ twice daily for DVT prophylaxis Attestations Medical Necessity Statement*: Continue admission for cardiac assessment preceding surgical ankle fracture repair. Diagnoses Closed fracture of right distal fibula S82.831A Risk for falls Z91.81 Closed fracture of right distal tibia S82.301A Closed right ankle fracture S82.891A Fall at home W19.XXXA; Y92.009 Acute gout of right ankle M10.071 Gout etiology: idiopathic Rheumatoid arthritis M06.9 Chronic anticoagulation Z79.01 Portal vein thrombosis I81 Diabetes E11.9 Essential hypertension I10
[2023-01-15] VITALS (27 sets, daily range): BP systolic 118–160; BP diastolic 54–88; PULSE 72–89; RESP 16–18; TEMP 36.1–37.2; O2SAT 84–99
--- NOTE | 2023-01-15 | XR_ITS ---
WS: [id number] XR ankle RT 2V [id number] REASON FOR EXAM: ORIF ankle FINDINGS: Intramedullary pinky arthrodesis of the talocalcaneal and tibiotalar joints and fixation of oblique dis tressa tibial fracture. The surgical appliances are intact and in proper position and alignment. The arthrodesis and the tibial fracture are in proper alignment. XR/XR ankle RT 2V [id number] IMPRESSION: Right ankle arthrodesis and tibial fracture fixation as above.
[2023-01-15] MEDS: cefepime 1,000 MG in sodium chloride 0.9% (plus) 50 ML 100 MG IV (02:33)
[2023-01-15] MEDS: HYDROmorphone 1 mg/mL INJ 1 mL IVP ×4 (02:51→19:56)
[2023-01-15 05:57] LABS: Basophils # 0.1 10^3/uL (0.0-0.1); Basophils % 0.6 %; Eosinophils # 0.1 10^3/uL (0.0-0.8); Eosinophils % 1.2 %; Hematocrit 29.2 % (37.0-47.0); Hemoglobin 8.9 g/dL (11.5-15.3); Lymphocytes # 1.6 10^3/uL (0.8-4.8); Lymphocytes % 19.6 %; Mean Corpuscular HGB Conc 30.5 g/dL (30.0-36.0); Mean Corpuscular Volume 85.4 fl (81-99); Mean Platelet Volume 10.4 fL (7.4-10.4); Monocytes # 0.5 10^3/uL (0.2-0.9); Monocytes % 5.7 %; Neutrophils # 5.86 10^3/uL (1.8-7.7); Neutrophils % 72.7 %; Nucleated Red Blood Cells % 0 %; Platelet Count 135 10^3/cmm (130-400); Red Blood Count 3.42 10^6/uL (4.1-5.3); Red Cell Distribution Width 16.3 % (12.1-15.1); White Blood Count 8.1 10^3/uL (4.0-10.0)
--- NOTE | 2023-01-15 06:19 | PC.NURSE ---
Pts blood glucose 265 @ 0619
[2023-01-15 06:26] LABS: Alanine Aminotransferase 14 U/L (0-33); Albumin Level 2.6 g/dL (3.5-5.2); Alkaline Phosphatase 142 U/L (35-105); Aspartate Amino Transferase 37 U/L (0-32); Blood Urea Nitrogen 12 mg/dL (6-20); Calcium 7.9 mg/dL (8.5-10.5); Carbon Dioxide 20 mmol/L (22-29); Chloride 103 mmol/L (98-107); Globulin 2.7 g/dL (1.3-4.6); Glomerular Filtration Rate 87.2 mL/min (90-130); Glucose 360 mg/dL (65-115); Osmolality Calculated 284 mOsm/kg (285-295); Sodium 130 mmol/L (136-145); Total Bilirubin 0.5 mg/dL (0.15-1.2); Total Protein 5.3 g/dL (6.6-8.7)
--- NOTE | 2023-01-15 07:25 | P.CONIM_ITS ---
Providers/Reason For Consult Consulting Physician/Specialty*: Cardiovascular medicine Reason for Consult*: Preoperative screening Requesting Physician: Hospitalist Attending Physician: Callum Jorgensen Primary Care Provider: Nel Peacock MD History of Present Illness History of Present Illness Erin Kelley is a 52 year old female who has a number of underlying medical problems including tobacco abuse, diabetes, obesity, hypertension, fibromyalgia, chronic pain, anemia, prior pericardial effusion resolved, nonobstructive peripheral arterial disease, chronic kidney disease and a history of a portal vein thrombosis. She underwent an elective ankle fusion 2 days ago. It was a same-day surgery procedure and she went home. She tolerated the surgery and anesthetic without any difficulty. Later that day she fell fracturing her leg just above the surgical site. She is now back requiring another operation. When the hospitalist looked at her chart he noticed that I had seen her in September when she had been in the emergency room with chest pain. She was not having any chest pain when I saw her in September. She had a sestamibi examination 1 year ago which showed a small to moderate area of ischemia in the distribution of the LAD and circumflex. She and I agreed to revisit. She has not had that follow-up visit yet. She tells me she has not had any further chest pain. She gets short of breath when she tries to walk vigorously but she has been a lifelong smoker. No chest pain when she walks. Her EKGs show some mild ST segment depression. Her echocardiogram a year ago was normal. Review of Systems Narrative: Review of systems is diffusely positive Medications/Allergies Home Medications Medication Instructions Recorded Confirmed Last Taken Type rosuvastatin 20 mg tablet (Crestor) 20 mg PO DAILY 09/04/19 01/14/23 01/12/23 History omeprazole 40 mg capsule,delayed 40 mg PO DAILY 09/05/19 01/14/23 01/13/23 Histo ry release nitroglycerin 0.4 mg sublingual 0.4 mg sublingual Q5M PRN chest 09/09/19 01/14/23 Unknown Rx tablet (Nitrostat) pain 30 days #25 tabs epinephrine 0.3 mg/0.3 mL See Rx Instructions .Route 11/01/19 01/14/23 Unknown History injection, auto-injector (EpiPen .COMPLEX PRN Allergic Reaction 2-[place]rington) glucagon HCl 1 mg solution for 1 mg SUBCUT Q20M PRN blood sugar 11/01/19 01/14/23 Unknown History injection (Glucagon (HCl) ##0 Emergency Kit) insulin aspart U-100 100 unit/mL See Rx Instructions .Route .COMPLEX 11/01/19 01/14/23 01/12/23 08:00 History (3 mL) subcutaneous pen (Novolog FlexPen U-100 Insulin aspart) albuterol sulfate 2.5 mg/3 mL 2.5 mg inhalation Q6H PRN 04/01/20 01/14/23 12/14/22 History (0.083 %) solution for nebulization Shortness Of Breath nicotine 14 mg/24 hr daily 1 patch transdermal DAILY #28 ea 07/13/20 01/14/23 01/12/23 Rx transdermal patch aspirin 81 mg tablet,delayed 81 mg PO DAILY@0800 08/15/20 01/14/23 01/08/23 History release melatonin 3 mg capsule 3 mg PO DAILY 09/04/20 01/14/23 01/12/23 History apixaban 5 mg tablet (Eliquis) 5 mg PO BID 11/24/20 01/14/23 01/08/23 History metoprolol tartrate 25 mg tablet 25 mg PO BID #180 tabs 12/10/20 01/14/23 01/13/23 Rx tamsulosin 0.4 mg capsule (Flomax) 0.4 mg PO DAILY 05/22/21 01/14/23 01/12/23 History oxycodone 15 mg tablet 15 mg PO BID PRN pain 30 days #60 08/04/21 01/14/23 01/13/23 Rx tabs diclofenac sodium 1 % topical gel 4 g topical QID #100 grams 09/30/21 01/14/23 Unknown Rx (Voltaren Arthritis Pain) prednisone 5 mg tablet 5 mg PO DAILY PRN FLARES #60 tabs 02/14/22 01/14/23 Unknown Rx enalapril maleate 10 mg tablet 5 mg PO DAILY 03/02/22 01/14/23 01/12/23 History albuterol sulfate 90 mcg/actuation 2 puff inhalation Q6H PRN 05/20/22 01/14/23 01/12/23 20:00 Rx aerosol inhaler (Ventolin HFA) shortness of breath or wheezing #8.5 grams insulin glargine 100 unit/mL 50 unit SUBCUT DAILY@0800 06/08/22 01/14/23 01/12/23 08:00 History subcutaneous solution (Lantus U-100 Insulin) ropinirole 2 mg tablet 3 mg PO BEDTIME 06/08/22 01/14/23 01/12/23 History abatacept 125 mg/mL subcutaneous 125 mg SUBCUT .qweek #4 mL 07/29/22 01/14/23 1 Week Ago Rx syringe (Orencia) ~01/07/23 alprazolam 0.25 mg tablet 0.25 mg PO DAILY PRN anxiety 09/16/22 01/14/23 01/12/23 History betamethasone dipropionate 0.05 % 1 applic topical BID #45 grams 10/12/22 01/14/23 01/12/23 Rx topical ointment fluocinonide 0.05 % topical 1 applic topical BID #60 grams 10/12/22 01/14/23 U nknown Rx ointment ipratropium 20 mcg-albuterol 100 1 puff inhalation Q6H PRN 10/17/22 01/14/23 01/12/23 Rx mcg/actuation mist for inhalation Shortness Of Breath #4 grams (Combivent Respimat) gabapentin 300 mg capsule 600 mg PO TID 30 days #180 caps 11/10/22 01/14/23 01/13/23 Rx Knee Walker #1 ea 11/11/22 01/14/23 Unknown Rx isosorbide mononitrate 30 mg 30 mg PO BID 01/12/23 01/14/23 01/13/23 History tablet,extended release 24 hr sertraline 100 mg tablet (Zoloft) 100 mg PO DAILY 01/12/23 01/14/23 01/12/23 History oxycodone 15 mg tablet 15 mg PO Q6H PRN pain 7 days #28 01/13/23 01/14/23 Unknown Rx tabs Allergies Allergy/AdvReac Type Severity Reaction Status Date / Time bee venom protein (honey bee) Allergy ALGY-Anaphy Verified 01/13/23 17:34 laxis Current Medications Generic Name Dose Route Start Last Admin Trade Name Freq PRN Reason Stop Dose Admin Albuterol/Ipratropium 3 ml 01/13/23 19:05 01/14/23 19:52 Ipratropium-Albuterol 3 Ml Neb INHALATION 3 ml Q6H.RESP PRN Administration SHORTNESS OF BREATH Budesonide 0.5 mg 01/13/23 20:00 01/14/23 19:52 Budesonide 0.5 Mg/2 Ml Neb INHALATION 0.5 mg BID.RESPIRATORY PHONG Administration Hydromorphone HCl 1 mg 01/14/23 14:28 01/15/23 06:54 Hydromorphone 1 Mg/Ml Inj 1 Ml IVP 1 mg Q4H PRN Administration SEVERE PAIN Cefepime HCl 1,000 mg/ Sodium 50 mls @ 100 mls/hr 01/14/23 01:30 01/15/23 04:20 Chloride IV Infused Q12H PHONG Infusion Protocol Vancomycin/PEG/NADA/Lysine/Water 1,250 mg in 250 mls @ 250 mls/hr 01/14/23 02:00 01/14/23 23:03 Vancocin IV Infused Q18H PHONG Infusion Insulin Human Lispro 0 unit 01/13/23 21:00 01/14/23 20:21 Insulin Lispro 100 Unit/1 Ml SUBCUT 4 unit WM&BEDTIME PHONG Administration Protocol Ketorolac Tromethamine 15 mg 01/14/23 04:12 01/14/23 18:22 Ketorolac 30 Mg/Ml Inj IVP 01/19/23 04:11 15 mg Q6H PRN Administration MODERATE PAIN PFSH Acute PFSH: Medical History Avulsion fracture of left ankle Cervical spondylosis Chronic anticoagulation Cigarette smoker motivated to quit Claudication Closed fracture of right distal fibula COVID-19 DDD (degenerative disc disease), cervical Diabetes Emphysema/COPD Essential hypertension Fibromyalgia Immunocompromised Long-term current use of opiate analgesic Onychodystrophy Osteoporosis Pain, joint, multiple sites Portal vein thrombosis Rheumatoid arthritis Spondylosis of lumbar region without myelopathy or radiculopathy Syncope Tobacco use disorder Surgical History H/O dilation and curettage Hx laparoscopic cholecystectomy Hx of section (~1989) Hx of hysterectomy Family History Mother Stroke Cancer SKIN CANCER Sister Stroke Other Diabetes Myocardial infarct Denies family history of Anesthesia complication Bleeding disorder Social History Smoking and tobacco status: current every day smoker cigarettes Years cigarettes smoked: 40 [ Other cigarette details: 3 cigarettes/day currently] Quit status (tobacco): considering quitting Second hand smoke exposure: Yes Smoking risk assessment/counseling performed?: Yes Alcohol intake: former Substance/Drug Use: never Caregiver/support person: Yes Lives independently: Yes Household members: spouse Marital status: Current occupational status: disabled Pets and animals: Yes Do you think of yourself as: Straight/Heterosexual Current gender identity: Female Vitals/I&O/Wt Last Vital Signs Temp 98.6 F 01/15/23 04:44 Pulse 76 01/15/23 04:44 Resp 18 01/15/23 06:54 BP 130/80 01/15/23 04:44 Pulse Ox 92 01/15/23 04:44 O2 Del Method Room Air 01/14/23 19:53 O2 Flow Rate 93 01/14/23 09:31 01/14/23 01/15/23 01/15/23 22:59 06:59 14:59 Intake Total 803.75 / 2132.50 780 / 2912.50 Output Total 1400 / 1400 1850 / 3250 1450 / 1450 Balance -596.25 / 732.50 -1070 / -337.50 -1450 / -1450 Weight last 48 hrs Weight 220 lb Physical Exam Narrative: GENERAL: In general she is comfortable, no shortness of breath or chest pain HEENT: Exam within normal limits. NECK: Supple without jugular vein distention. The carotid upstroke is normal without bruits. BACK: Exam normal. LUNGS: Clear. HEART: Regular rate and rhythm. ABDOMEN: Benign without organomegaly or tenderness. EXTREMITIES: No edema. NEUROLOGIC: Exam normal. SKIN: Unremarkable. Urinary Catheter Management: Dent: Cath Placed During This Visit: yes Reason for Continuing Indwelling Catheter: Required Immobilization for Trauma or Surgery or Anesthesia Urinary Catheter Date of Insertion: 01/13/23 Urinary Catheter Time of Insertion: 20:00 Data 01/15/23 05:05 01/15/23 05:05 Micro: Microbiology 01/13/23 19:24 Blood Culture - Preliminary Blood NEGATIVE TO DATE 01/13/23 19:18 Blood Culture - Preliminary Blood NEGATIVE TO DATE A&P Assessment and plan (1) Closed fracture of right distal fibula: (2) Cigarette smoker motivated to quit: (3) Thrombocytopenia: (4) Transaminitis: (5) Essential hypertension: (6) Portal vein thrombosis: (7) Diabetes: (8) PVD (peripheral vascular disease): (9) Essential hypertension: (10) Tobacco use disorder: Plan She appears stable. No chest pain. She tolerated the anesthetic just 2 days ago without any difficulty. I think she can proceed with surgery this morning without delay. I spoke to Dr. Sales over the phone regarding this. Consult Attestations Medical Necessity Statement: Hospitalization for management of fractured ankle. and Moderate Time for a total of 35 minutes, includes reviewing past or interval history, examining/interviewing patient, counseling patien t/family/other support, updating patient/family/other support, discussing plan of care with staff, communicating with other healthcare providers, documenting encounter and coordinating care Diagnoses Closed fracture of right distal fibula S82.831A Cigarette smoker motivated to quit F17.210 Thrombocytopenia D69.6 Transaminitis R74.01 Essential hypertension I10 Portal vein thrombosis I81 Diabetes E11.9 PVD (peripheral vascular disease) I73.9 Tobacco use disorder F17.200
[2023-01-15] MEDS: budesonide 0.5 mg/2 mL Neb INHALATION ×2 (08:09→21:10)
[2023-01-15] MEDS: ipratropium-albuterol 3 mL Neb INHALATION ×3 (08:09→21:10)
--- NOTE | 2023-01-15 08:41 | W.PM.OPSUD ---
Surgery/Procedure H&P Update DATE OF PROCEDURE: January 15, 2023 DATE H&P PERFORMED: 01/13/23 CHANGES TO PREVIOUS DOCUMENTATION: None PREOP DIAGNOSIS: Acute right ankle fracture PLANNED PROCEDURE: Operation Date: 01/15/23 09:35 Proposed Procedures p Hardware Removal(Right) - Anthony Sales DPM s ORIF Ankle(Right) - Anthony Sales DPM
--- NOTE | 2023-01-15 09:19 | P.ANESUD_ITS ---
Pre-Anesthetic Update Pre-Anesthetic Assessment: Date of Surgery/Procedure: 01/15/23 Preop Kathryn gnosis: Acute right ankle fracture Proposed Procedure: Operation Date: 01/15/23 09:35 Proposed Procedures p Hardware Removal(Right) - Anthony Sales DPM s ORIF Ankle(Right) - Anthony Sales DPM Any changes to Pre-Anesthetic Assessment?: No Labs Last 48hrs: Short CBC 01/13/23 01/14/23 01/15/23 Range/Units 19:18 03:37 05:05 WBC 13.4 H 11.8 H 8.1 (4.0-10.0) 10^3/ uL Hgb 9.9 L 9.3 L 8.9 L (11.5-15.3) g/dL Hct 32.3 L 30.1 L 29.2 L (37.0-47.0) % MCV 84.1 85.0 85.4 (81-99) fl Plt Count 164 166 135 (130-400) 10^3/c mm Neut % (Auto) 88.0 83.8 72.7 % Neut # (Auto) 11.77 H 9.89 H 5.86 (1.8-7.7) 10^3/u L BMP 01/13/23 01/14/23 01/15/23 19:18 03:37 05:05 Sodium 128 L 136 130 L Potassium 4.9 4.3 5.0 Chloride 99 104 103 Carbon Dioxide 19 L 23 20 L BUN 15 13 12 Creatinine 0.9 0.7 0.7 Glucose 463 H 314 H 360 H Calcium 8.2 L 8.2 L 7.9 L Liver Function 01/13/23 01/14/23 01/15/23 Range/Units 19:18 03:37 05:05 Total Bilirubin 0.3 0.3 0.5 (0.15-1.2) mg/dL AST 15 14 37 H (0-32) U/L ALT 12 10 14 (0-33) U/L Alkaline Phosphata se 146 H 140 H 142 H (35-105) U/L Albumin 3.0 L 2.7 L 2.6 L (3.5-5.2) g/dL Coags 01/14/23 03:37 PT 14.00 INR 1.05 Vitals: Temperature 98.2 F 01/15/23 08:00 Temperature Source Oral 01/15/23 08:00 Pulse Rate 83 01/15/23 08:22 Pulse Rhythm Regular 01/14/23 08:00 Respiratory Rate 18 01/15/23 08:22 Respiratory Effort Spontaneous, Non- Labored 01/15/23 06:54 Respiratory Depth Normal 01/15/23 06:54 Respiratory Patter n Normal 01/15/23 06:54 Blood Pressure 160/58 01/15/23 08:22 Blood Pressure Silvia n 92 01/15/23 08:22 Blood Pressure Pos ition Semi Fowlers 01/13/23 17:29 Pulse Oximetry 90 01/15/23 08:22 Oxygen Delivery Me thod Room Air 01/15/23 08:22 Oxygen Flow Rate 93 01/14/23 09:31 Sepsis Recent Feve r Within 48 Hours No 01/13/23 17:29 Sepsis New/Unexpla ined Change in Men tressa Status No 01/13/23 17:29 Exam: Pre-Anes Outpt Exam: alert, oriented x 3, clear to auscultation bilaterally and regular rate & rhythm Cardiac Studies: Echocardiogram 02/24/22 Echocardiogram Limited Views 10/21/20 Echocardiogram Ultrasound 08/14/20 Sestamibi Stress Test (Cardiology) 01/24 Holter Monitor 03/31/20
[2023-01-15] MEDS: insulin regular-human 10 UNIT in SYRINGE 1 EACH IVP (09:34)
[2023-01-15] MEDS: sodium chloride 0.9% 1,000 ML 30 ML IV (09:38)
[2023-01-15 09:54] LABS: Glucose Point of Care 442 mg/dL (70-110)
[2023-01-15] MEDS: insulin regular-human 100 units/1 mL 10 UNIT IVP (12:01)
--- NOTE | 2023-01-15 12:41 | PC.OT ---
patient will be on hold till tomorrow for OT EVAL due to unavailability and being in surgery for ORIF. nursing staff notified and is in agreement.
--- NOTE | 2023-01-15 13:11 | P.OP_ITS ---
Operative Report Date of procedure: January 15, 2023 Pre-op diagnosis: Right distal tibial fracture Right distal fibula fracture Retained hardware, right lower extremity Post-op diagnosis: Same Procedure done: Open reduction internal fixation right bimalleolar fracture. CPT 97721 Deep hardware removal right ankle. CPT code 07337. Deep hardware removal right foot. CPT code 87174 Implants: [employer] T2 ankle nail 13 mm x 200 mm [place] 5 mm screw x4 3-0 Vicryl 2-0 Vicryl 3-0 nylon 4-0 nylon Vitoss 10 cc provided by [employer] DBM 10 cc provided by [employer] Specimens removed/disposition: 8 screws removed from right ankle Locking plate removed from right ankle 1 screw removed from right foot Pathology: None Surgeon: Anthony Sales D.P.M. Proof Coin Collector: Verna Cannon Estimated blood loss: 50 98 IV fluids: See intraoperative documentation Urine output: See intraoperative documentation Complications: None Brief History: Patient is a pleasant 52-year-old female with comorbidities including but not limited to diabetes type 2 insulin-dependent, rheumatoid arthritis on long-term disease modifying medications. Right tibial talocalcaneal arthrodesis was performed 01/13/2023 secondary to right talus avascular necrosis. Once home patient tripped, experienced a rotational injury to her right lower extremity when transferring to her toilet. Sustained a trimalleolar fracture that was displaced. Sachin Aaron C fracture with angulation. Distal tibial fracture which occurred at the level of the most superior aspect of the fixation from her surgery on 01/13/2023. Small posterior malleolus fracture involving less than 10% of the ankle mortise it was minimally displaced. Patient presented to the emergency department and underwent reduction of her fracture and hospitalization. Recommended hardware removal and spanning both the subtalar joint arthrodesis, ankle joint arthrodesis and her new distal tibial fracture with 1 construct. Patient was agreeable. I reviewed at length with the patient, the risks, potential complications, benefits, alternatives, expectations, and typical outcomes associated with the surgery. The risks and potential complications were explained in detail, including but not limited to infection, wound dehiscence or soft tissue complications, bleeding and hematoma, chronic edema, neuritis or nerve damage producing numbness or chronic pain, CRPS, failure to relieve pain or worsening pain, thick / painful / unsightly sc ar, limited motion / stiffness, malposition, delayed union, malunion, or nonunion, fracture, reaction to implants, anesthetic complications, venous thromboembolism, and deformity recurrence. I discussed the notion of no regrets with the patient as it pertains to complications and outcomes. The patient seemed to understand the nature of the proposed care and required convalescence. They asked appropriate questions, answered to their satisfaction. They are aware no guarantees can be made as to a satisfactory outcome and they understand there may be other possible unforeseen complications or outcomes not listed here that will be treated accordingly if they arise. There were no written or implied guarantees given to the patient. They gave informed consent to proceed. Preoperative risk assessment was performed per cardiology preoperatively. Procedure: Under mild sedation the patient was brought to the operating room. Timeout was performed. Anesthesia was administered by the anesthesia service. Well-padded pneumatic tourniquet was applied to the right high calf. The right lower extremity was scrubbed, prepped and draped utilizing normal aseptic technique. The right lower extremity was exanguinated with an Esmarch bandage and tourniquet was inflated to 250 mmHg. Attention was directed to the right anterior ankle where over the previous incision an incision was performed through skin, all sutures were removed in all layers and dissection was carried down to the level of the hardware including plate and screws, care was taken to retract and preserve neurovascular and tendinous structures. All bleeders were ligated and cauterized as necessary. The anterior tibial talocalcaneal arthrodesis plate provided by Sarabjit Chambers was removed, a total of 8 screws in the plate were removed and passed from the operative field. The incision was irrigated with copious amounts of sterile skin solution. Attention was then directed to the right posterior heel, under mini C arm was able to triangulate to the 7 mm screw from posterior inferior to superior anterior orientation, the right rear foot screw was removed and passed from the operative field. This completed hardware removal through a total of 2 incisions. Both incisions were irrigated with copious amounts of sterile saline solution. Attention was then directed to the right ankle which was held in neutral dorsiflexion, slightly externally rotated and slight valgus approximately 5 degrees. Once this position was obtained and this position confirmed with an AP, oblique and lateral view of the right foot and ankle temporary fixation was performed followed by insertion of a [place] 13 mm diameter by 200 mm length T2 titanium nail from inferior to superior spanning the subtalar joint, ankle joint and the right distal tibial fracture which was held in anatomic reduction when advancing the nail. 5 mm screw x2 proximally within the proximal tibial portion of the nail, 5 mm screw within the lateral calcaneus followed by a posterior to anterior calcaneal screw also 5 mm all with excellent bony apposition. Excellent anatomic alignment and ideal arthrodesis position of the right ankle and subtalar joint as well as excellent reduction of the tibial fracture was appreciated. The outrigger was removed and all percutaneous incisions were irrigated with copious amounts of Staticin solution followed by closure with 3-0 nylon and 4-0 nylon. All incisions were dressed with Adaptic, sterile 4 x 4's, Kerlix, Christophe wrap followed by application of a well-padded short leg cast. Tourniquet was deflated and a prompt hyperemic response was noted to the distal digits of the right foot. Patient tolerated the procedure and anesthesia well and was transferred to the PACU with vital signs stable and vascular status intact. Following a period of postoperative monitoring she will be transferred back to [facility]. Will continue antibiotics prophylactically. Emphasis on strict nonweightbearing to the right lower extremity as well as elevating the right lower extremity above the level of the hip while resting. Patient will require transfer to a detention facility moving forward to facilitate healing and assist with tasks of everyday living. Patient is a high fall risk. She is to remain strict nonweightbearing. Ultimately patient is at risk of loss of limb, underlying comorbidities of diabetes, rheumatoid arthritis as well as history of smoking put her at increased risk for delayed union, nonunion, surgical site dehiscence, postoperative infection and poor healing. We will continue to work with social work on insurance debacle for coverage of detention facility.
[2023-01-15 13:13] LABS: Glucose Point of Care 373 mg/dL (70-110)
[2023-01-15 13:13] LABS: Glucose Point of Care 405 mg/dL (70-110)
--- NOTE | 2023-01-15 13:21 | ANE.PACU2 ---
Inpatient post-anesthesia follow up: Airway intact: Yes Vital signs: Temperature 97 F Pulse Rate 82 Respiratory Rate 16 Blood Pressure 122/63 Pulse Oximetry 95 Oxygen Delivery Me thod Simple Mask Oxygen Flow Rate 6 Fraction of Inspir ed Oxygen Hydration adequate: Yes Nausea and vomiting: No Pain level: 3 Mental status: Baseline
[2023-01-15] MEDS: vancomycin 1,250 MG/250 ML PIGGYBACK 250 MG IV (13:57)
[2023-01-15] MEDS: ketorolac 30 mg/mL INJ 15 MG IVP (16:55)
[2023-01-15] MEDS: insulin lispro 100 unit/1 mL SUBCUT ×2 (17:28→20:03)
--- NOTE | 2023-01-15 19:11 | PM.PN ---
Subjective Subjective: She is doing well after surgery. Denies any pain. No chest pain. Not short of breath currently but did have to sit up to catch better breaths. Vitals/I&O/Wt Last Vital Signs Temp 98.6 F 01/15/23 14:00 Pulse 76 01/15/23 17:00 Resp 18 01/15/23 17:00 BP 118/88 01/15/23 17:00 Pulse Ox 85 L 01/15/23 17:00 O2 Del Method Room Air 01/15/23 17:00 O2 Flow Rate 6 01/15/23 13:15 01/15/23 01/15/23 01/15/23 06:59 14:59 22:59 Intake Total 780 / 2912.50 1200.1 / 1200.1 490 / 1690.1 Output Total 1850 / 3250 2500 / 2500 400 / 2900 Balance -1070 / -337.50 -1299.9 / -1299.9 90 / -1209.9 Physical Exam Narrative: Awake, alert. Sitting up in bed. Interactive. Visited by her son. Const: COMMON NORMALS: patient oriented x3 and alert GENERAL APPEARANCE: cooperative ORIENTATION/CONSCIOUSNESS: Yes awake HENMT: COMMON NORMALS: oropharynx normal Neck/C-Spine: COMMON NORMALS: no JVD Resp: COMMON NORMALS: normal respiratory effort and clear to auscultation bilaterally AUSCULTATION: clear to auscultation bilaterally Cardio: COMMON NORMALS: no JVD, regular rhythm, S1 normal heart sound present, S2 normal heart sound present and No murmurs present (Cardio) RHYTHM: regular rhythm HEART SOUNDS: S1 normal heart sound present and S2 normal heart sound present GI: COMMON NORMALS: Normal to inspection, nondistended, normoactive bowel sounds present, Soft to palpation and non-tender PALPATION: Yes Soft to palpation Extremity: COMMON NORMALS: no joint enlargement and no pedal edema OTHER: RLE cast in place. Toes pink, warm. Neuro: COMMON NORMALS: patient oriented x3 and moves all extremities SENSORIUM/ORIENTATION: Yes alert Skin: COMMON NORMALS: no rashes or lesions noted GENERAL SKIN EXAM: no rashes or lesions noted Urinary Catheter Management: Dent: Cath Placed During This Visit: yes Reason for Continuing Indwelling Catheter: Required Immobilization for Trauma or Surgery or Anesthesia Urinary Catheter Date of Insertion: 01/13/23 Urinary Catheter Time of Insertion: 20:00 Data 01/15/23 05:05 01/15/23 05:05 Micro: Microbiology 01/13/23 19:24 Blood Culture - Preliminary Blood NEGATIVE TO DATE 01/13/23 19:18 Blood Culture - Preliminary Blood NEGATIVE TO DATE A&P Assessment and plan (1) Closed fracture of right distal fibula: (2) Risk for falls: (3) Closed fracture of right distal tibia: (4) Closed right ankle fracture: (5) Fall at home: (6) Acute gout of right ankle: Qualifiers: Gout etiology: idiopathic Qualified Code(s): M10.071 - Idiopathic gout, right ankle and foot (7) Rheumatoid arthritis: (8) Chronic anticoagulation: (9) Portal vein thrombosis: (10) Diabetes: (11) Essential hypertension: Plan #New proximal right ankle fracture #Postop day 0 right ankle fusion #Chronic anticoagulation #History of portal vein and fibrosis #COPD #Hypertension #Immunocompromise status #Avascular necrosis of tibia and right ankle #Charcot's foot #Fall Cardiology evaluation appreciated. Documentation reviewed. Underwent ORIF right ankle, podiatry documentation reviewed. Strict nonweightbearing right lower extremity. Elevate above hip when laying. For now continue empiric antibiotics per podiatry. Discussed with case management, they are working on rehabilitation given she cannot go to SNF. They are working on application for IPR. Morphine was not helping for pain, continue Dilaudid IV for now for severe pain, oral oxycodone Rx. Today noted worsening anemia, hemoglobin down to 8.9. At risk of severe anemia, reassess CBC. With possible progressing CAD monitor closely, consider hemoglobin of 8 threshold for transfusion. She is noting some orthopnea, monitor symptoms for any development of CHF. Leukocytosis has resolved. Neutrophilia normalized. Afebrile. Follow-up CBC. Currently empirically on cefepime and vancomycin. Monitor renal function, currently BUN 12, creatinine 0.7. Potassium noted high normal at 5. Noted mild degree of metabolic acidosis, bicarb 20, gap normal at 12. Repeat chemistry. Blood pressure soft, enalapril for now held. ? Patient will require going to the OR for ORIF right ankle 01/15/2023 and require intramedullary nail that needs to be shipped to her facility. ? Patient is high risk for limb loss due to underlying comorbidities including diabetes mellitus immunocompromise status due to disease modifying medications for rheumatoid arthritis and has a history of avascular necrosis of right talus. She is a high fall risk. She will require assistance with everyday living and requires assistance for transfers. She is to remain strict nonweightbearing to right lower extremity potentially for next 3 months pending her bony healing rate. Transfer to SNF has been recommended at discharge at this time by the technical solutions consultant which I definitely agree with at this time. Full code Heparin SQ twice daily for DVT prophylaxis Attestations Medical Necessity Statement*: Continue admission following right ankle fracture and repair after a fall after recent ankle surgery, pain control, reassessment of her condition and acute anemia in a lady with possible underlying CAD, post discharge planning and arrangements. Diagnoses Closed fracture of right distal fibula S82.831A Risk for falls Z91.81 Closed fracture of right distal tibia S82.301A Closed right ankle fracture S82.891A Fall at home W19.XXXA; Y92.009 Acute gout of right ankle M10.071 Gout etiology: idiopathic Rheumatoid arthritis M06.9 Chronic anticoagulation Z79.01 Portal vein thrombosis I81 Diabetes E11.9 Essential hypertension I10
[2023-01-15 20:09] LABS: Glucose Point of Care 579 mg/dL (70-110)
[2023-01-15] MEDS: insulin glargine 100 units/1 mL 40 UNIT SUBCUT (22:13)
[2023-01-15] MEDS: ropinirole 2 mg Tablet 3 MG PO (22:13)
[2023-01-15 23:05] LABS: Glucose Point of Care 509 mg/dL (70-110)
[2023-01-16] VITALS (16 sets, daily range): BP systolic 107–150; BP diastolic 62–82; PULSE 62–84; RESP 16–20; TEMP 36.5–37.2; O2SAT 91–95
[2023-01-16] MEDS: HYDROmorphone 1 mg/mL INJ 1 mL IVP ×4 (00:26→13:31)
[2023-01-16] MEDS: cefepime 1,000 MG in sodium chloride 0.9% (plus) 50 ML 100 MG IV ×2 (00:31→13:33)
[2023-01-16 01:40] LABS: Anion Gap 14.8 (5-19); Blood Urea Nitrogen 12 mg/dL (6-20); Calcium 8.4 mg/dL (8.5-10.5); Carbon Dioxide 18 mmol/L (22-29); Chloride 103 mmol/L (98-107); Glomerular Filtration Rate 87.2 mL/min (90-130); Glucose 455 mg/dL (65-115); Osmolality Calculated 292 mOsm/kg (285-295); Potassium 4.8 mmol/L (3.5-5.1); Sodium 131 mmol/L (136-145)
[2023-01-16] MEDS: insulin lispro 100 unit/1 mL 15 UNIT SUBCUT (02:23)
[2023-01-16 05:14] LABS: Basophils % 0.3 %; Hematocrit 29.7 % (37.0-47.0); Hemoglobin 9.1 g/dL (11.5-15.3); Lymphocytes % 8.2 %; Mean Corpuscular HGB Conc 30.6 g/dL (30.0-36.0); Mean Corpuscular Hemoglobin 26.7 pg (28.0-34.0); Mean Corpuscular Volume 87.1 fl (81-99); Mean Platelet Volume 10.5 fL (7.4-10.4); Monocytes # 0.5 10^3/uL (0.2-0.9); Monocytes % 3.7 %; Neutrophils % 87.3 %; Nucleated Red Blood Cells % 0 %; Platelet Count 153 10^3/cmm (130-400); Red Blood Count 3.41 10^6/uL (4.1-5.3); White Blood Count 12.5 10^3/uL (4.0-10.0)
[2023-01-16 05:38] LABS: Alanine Aminotransferase 15 U/L (0-33); Albumin Level 2.7 g/dL (3.5-5.2); Alkaline Phosphatase 166 U/L (35-105); Anion Gap 14.7 (5-19); Aspartate Amino Transferase 20 U/L (0-32); Blood Urea Nitrogen 11 mg/dL (6-20); Calcium 8.4 mg/dL (8.5-10.5); Carbon Dioxide 20 mmol/L (22-29); Chloride 100 mmol/L (98-107); Globulin 2.8 g/dL (1.3-4.6); Glomerular Filtration Rate 87.2 mL/min (90-130); Glucose 341 mg/dL (65-115); Osmolality Calculated 283 mOsm/kg (285-295); Potassium 4.7 mmol/L (3.5-5.1); Sodium 130 mmol/L (136-145); Total Bilirubin 0.5 mg/dL (0.15-1.2); Total Protein 5.5 g/dL (6.6-8.7)
--- NOTE | 2023-01-16 06:38 | P.PN_ITS ---
Subjective Subjective: Patient is seen bedside this AM. She is resting comfortably. She is frustrated that her insurance will not cover a alf facility transfer. She is asking if urinary catheter can be left in place when discharged home, also asking if she can receive a bedpan to reduce the risk of falling and utilizing the bathroom. Patient denies any subjective nausea, vomiting, fever, chills, shortness of breath or chest pain. Vitals/I&O/Wt Last Vital Signs Temp 98.5 F 01/16/23 04:03 Pulse 81 01/16/23 04:03 Resp 17 01/16/23 04:45 BP 150/69 01/16/23 04:03 Pulse Ox 95 01/16/23 04:03 O2 Del Method Nasal Cannula 01/16/23 04:03 O2 Flow Rate 1 01/15/23 21:17 01/15/23 01/15/23 01/16/23 14:59 22:59 06:59 Intake Total 1200.1 / 1200.1 490 / 1690.1 290 / 1980.1 Output Total 2500 / 2500 950 / 3450 Balance -1299.9 / -1299.9 -460 / -1759.9 290 / -1469.9 Physical Exam Narrative: GENERAL: Patient is alert and oriented ?3 and in no acute distress. The following is a focused right lower extremity exam. VASCULAR: Dorsalis pedis palpable, posterior tibial artery palpable. Capillary refill time less than 3 seconds to the distal hallux bilaterally. Calf is supple and nontender proximally and distally. NEUROLOGICAL: Diminished protective sensation to the bilateral lower extremities secondary to neuropathy. DERMATOLOGICAL: Surgical dressings and short leg cast intact to the right lower extremity without strikethrough bleeding. Toes 1 through 5 right foot are pink with capillary refill less than 3 seconds. MUSCULOSKELETAL: Short leg cast left in place to the right lower extremity. Able to wiggle toes on command. Urinary Catheter Management: Dent: Cath Placed During This Visit: yes Reason for Continuing Indwelling Catheter: Required Immobilization for Trauma or Surgery or Anesthesia Urinary Catheter Date of Insertion: 01/13/23 Urinary Catheter Time of Insertion: 20:00 Data 01/16/23 04:07 01/16/23 04:07 A&P Assessment and plan (1) Closed right ankle fracture: Qualifiers: Encounter type: initial encounter Qualified Code(s): S82.891A - Other fracture of right lower leg, initial encounter for closed fracture (2) Fall at home: Qualifiers: Encounter type: subsequent encounter Qualified Code(s): W19.XXXD - Unspecified fall, subsequent encounter; Y92.009 - Unspecified place in unspecified non-institutional (private) residence as the place of occurrence of the external cause (3) Risk for falls: (4) Immunocompromised: (5) Fracture of distal end of tibia with fibula: Qualifiers: Encounter type: initial encounter Fracture type: closed Laterality: right Qualified Code(s): S82.831A - Other fracture of upper and lower end of right fibula, initial encounter for closed fracture; S82.301A - Unspecified fracture of lower end of right tibia, initial encounter for closed fracture (6) Rheumatoid arthritis: Qualifiers: Rheumatoid arthritis location: multiple sites Rheumatoid factor presence: unspecified presence Qualified Code(s): M06.9 - Rheumatoid arthritis, unspecified (7) Long-term current use of opiate analgesic: (8) Diabetes: Qualifiers: Diabetes mellitus type: type 2 Diabetes mellitus [facility] insulin use: with ferry terminal 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 Patient has a new injury, fell at home when transferring to her bathroom. New acute fracture is proximal to fixation that was performed 01/13/2023. -Status post left ORIF right ankle performed 01/15/2023. No intraoperative complications. -Recommended resuming anticoagulants. -Strict nonweightbearing right lower extremity. -Patient agreeable for alf facility placement. Patient is at high risk for loss of limb, underlying core morbidities include diabetes mellitus type 2, immunocompromise secondary to disease modifying medications for rheumatoid arthritis, has a history of avascular necrosis of the right talus. Patient is a high fall risk. Patient requires assistance with everyday living and requires assistance for transfers. Patient is to remain strict nonweightbearing to her right lower extremity potentially for the next 3 months pending her bony healing rate, this will certainly be suppressed and delayed due to her comorbidities. Unfortunately her insurance is denying alf placement. She already has home health that comes 3 times weekly. Will check to see if they can come more frequently should she be discharged home. Also discussed with hospitalist being discharged with indwelling catheter. Greatly appreciate hospitalist medical management during this hospitalization. Podiatry will follow. Dr. Goodman Rdz. cell phone number [phone]. Attestations Medical Necessity Statement*: Right ankle fracture Coding Level of Care Code Acute Code for Chg Fwd Diagnoses Closed right ankle fracture S82.891A Encounter type: initial encounter Fall at home W19.XXXD; Y92.009 Encounter type: subsequent encounter Risk for falls Z91.81 Immunocompromised D84.9 Fracture of distal end of tibia with fibula S82.831A; S82.301A Encounter type: initial encounter Fracture type: closed Laterality: right Rheumatoid arthritis M06.9 Rheumatoid arthritis location: multiple sites Rheumatoid factor presence: unspecified presence Long-term current use of opiate analgesic Z79.891 Diabetes E11.610; Z79.4 Diabetes mellitus type: type 2 Diabetes mellitus [facility] insulin use: with ferry terminal 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
--- NOTE | 2023-01-16 06:40 | XR_ITS ---
WS: [id number] XR ankle RT min 3V* [id number] REASON FOR EXAM: Postop FINDINGS: Large pinky arthrodesis of the subtalar and tibiotalar joint and fixation of oblique fracture of the di stal right tibia. Surgical appliances are intact and in proper position and alignment. Arthrodesis and fracture site in good position and alignment. Minimally minimally displaced transverse fracture of the distal fibula, supra syndesmotic. XR/XR ankle RT min 3V* [id number] IMPRESSION: Arthrodesis and fracture fixation right ankle and hindfoot as above.
--- NOTE | 2023-01-16 07:30 | PM.PN ---
Subjective Subjective: Erin tolerated the surgery well yesterday. No complications. No cardiac issues. She feels fine this morning. Vitals/I&O/Wt Last Vital Signs Temp 98.5 F 01/16/23 04:03 Pulse 81 01/16/23 04:03 Resp 17 01/16/23 04:45 BP 150/69 01/16/23 04:03 Pulse Ox 95 01/16/23 04:03 O2 Del Method Nasal Cannula 01/16/23 04:03 O2 Flow Rate 1 01/15/23 21:17 01/15/23 01/16/23 01/16/23 22:59 06:59 14:59 Intake Total 490 / 1690.1 290 / 1980.1 Output Total 950 / 3450 Balance -460 / -1759.9 290 / -1469.9 Physical Exam Narrative: GENERAL: In general she looks and feels well HEENT: Exam within normal limits. NECK: Supple without jugular vein distention. The carotid upstroke is normal without bruits. BACK: Exam normal. LUNGS: Clear. HEART: Regular rate and rhythm. ABDOMEN: Benign without organomegaly or tenderness. EXTREMITIES: No edema. NEUROLOGIC: Exam normal. SKIN: Unremarkable. Urinary Catheter Management: Dent: Cath Placed During This Visit: yes Reason for Continuing Indwelling Catheter: Required Immobilization for Trauma or Surgery or Anesthesia Urinary Catheter Date of Insertion: 01/13/23 Urinary Catheter Time of Insertion: 20:00 Data 01/16/23 04:07 01/16/23 04:07 A&P Assessment and plan (1) Closed fracture of right distal fibula: (2) S/P foot surgery: (3) Cigarette smoker motivated to quit: (4) Thrombocytopenia: (5) Transaminitis: (6) Diabetes: Qualifiers: Diabetes mellitus complication detail: with neuropathic arthropathy Diabetes mellitus complication status: with diabetic arthropathy Diabetes mellitus buttermaker continuous churn insulin use: with buttermaker continuous churn use Diabetes mellitus type: type 2 Qualified Code(s): E11.610 - Type 2 diabetes mellitus with diabetic neuropathic arthropathy; Z79.4 - group home (current) use of insulin (7) PVD (peripheral vascular disease): (8) Essential hypertension: (9) Tobacco use disorder: Plan No surgical complications and no cardiac complications. I will sign off. Please call if necessary. Attestations Medical Necessity Statement*: Hospitalization for management of ankle fracture and Straight Forward/Low Time for a total of 15 minutes, includes reviewing past or interval history, examining/interviewing patient, updating patient/family/other support, communicating with other healthcare providers and documenting encounter Diagnoses Closed fracture of right distal fibula S82.831A S/P foot surgery Z98.890 Cigarette smoker motivated to quit F17.210 Thrombocytopenia D69.6 Transaminitis R74.01 Diabetes E11.610; Z79.4 Diabetes mellitus complication detail: with neuropathic arthropathy Diabetes mellitus complication status: with diabetic arthropathy Diabetes mellitus buttermaker continuous churn insulin use: with residential use Diabetes mellitus type: type 2 PVD (peripheral vascular disease) I73.9 Essential hypertension I10 Tobacco use disorder F17.200
[2023-01-16] MEDS: budesonide 0.5 mg/2 mL Neb INHALATION ×2 (07:43→20:56)
[2023-01-16] MEDS: aspirin 81 mg EC Tablet PO (08:03)
[2023-01-16] MEDS: isosorbide mononitrate ER 30 mg Tablet PO ×2 (08:03→18:14)
[2023-01-16] MEDS: pantoprazole DR 40 mg Tablet PO (08:03)
[2023-01-16] MEDS: gabapentin 300 mg Capsule 600 MG PO ×3 (08:03→21:03)
[2023-01-16] MEDS: sertraline 100 mg Tablet PO (08:04)
[2023-01-16] MEDS: nicotine 14 mg Patch 1 PATCH TRANSDERMA (08:04)
[2023-01-16] MEDS: metoprolol tartrate 25 mg Tablet PO ×2 (08:04→18:14)
[2023-01-16] MEDS: apixaban 5 mg Tablet PO ×2 (08:04→18:15)
[2023-01-16] MEDS: vancomycin 1,250 MG/250 ML PIGGYBACK 250 MG IV (08:05)
[2023-01-16 08:47] LABS: Glucose Point of Care 354 mg/dL (70-110)
[2023-01-16] MEDS: insulin lispro 100 unit/1 mL SUBCUT ×3 (08:53→21:46)
[2023-01-16] MEDS: oxyCODONE 5 mg IR Tab/Cap 15 MG PO (10:29)
[2023-01-16 13:24] LABS: Glucose Point of Care 234 mg/dL (70-110)
--- NOTE | 2023-01-16 14:23 | PM.PN ---
Subjective Subjective: Awaiting rehab Patient is stating that her pain is being managed with Dilaudid She is willing to try oxycodone 10 mg every 8 hours No bowel movement, added senna S She takes Lantus 50 units at home Vitals/I&O/Wt Last Vital Signs Temp 98.2 F 01/16/23 12:00 Pulse 74 01/16/23 12:00 Resp 18 01/16/23 13:31 BP 128/72 01/16/23 12:00 Pulse Ox 95 01/16/23 12:00 O2 Del Method Nasal Cannula 01/16/23 07:44 O2 Flow Rate 2 01/16/23 08:00 01/15/23 01/16/23 01/16/23 22:59 06:59 14:59 Intake Total 490 / 1690.1 290 / 1980.1 300 / 300 Output Total 950 / 3450 Balance -460 / -1759.9 290 / -1469.9 300 / 300 Physical Exam Narrative: Patient in supine Euvolemic GCS 15 Awake and alert Dent catheter in place S1, S2 Currently on room air Abdomen soft On focal neuro exam Urinary Catheter Management: Dent: Cath Placed During This Visit: yes Reason for Continuing Indwelling Catheter: Required Immobilization for Trauma or Surgery or Anesthesia Urinary Catheter Date of Insertion: 01/13/23 Urinary Catheter Time of Insertion: 20:00 Data 01/16/23 04:07 01/16/23 04:07 A&P Assessment and plan (1) Closed fracture of right distal fibula: (2) Risk for falls: (3) Closed fracture of right distal tibia: (4) Closed right ankle fracture: Qualifiers: Encounter type: initial encounter Qualified Code(s): S82.891A - Other fracture of right lower leg, initial encounter for closed fracture (5) Fracture of distal end of tibia with fibula: Qualifiers: Encounter type: initial encounter Fracture type: closed Laterality: right Qualified Code(s): S82.831A - Other fracture of upper and lower end of right fibula, initial encounter for closed fracture; S82.301A - Unspecified fracture of lower end of right tibia, initial encounter for closed fracture (6) S/P foot surgery: (7) Fall at home: Qualifiers: Encounter type: subsequent encounter Qualified Code(s): W19.XXXD - Unspecified fall, subsequent encounter; Y.009 - Unspecified place in unspecified non-institutional (private) residence as the place of occurrence of the external cause (8) Psoriasis: (9) Seizures: (10) Portal vein thrombosis: (11) Rheumatoid arthritis: Qualifiers: Rheumatoid arthritis location: unspecified site Rheumatoid factor presence: unspecified presence Qualified Code(s): M06.9 - Rheumatoid arthritis, unspecified Plan Recurrent falls resulting in ankle and lower extremity fractures Status post surgery Complete not waiting for at least 3 months as per podiatry Patient waiting for inpatient rehab Unfortunately insurance has not been able to prove her SNF/rehab Opioid-induced constipation Continue senna S and MiraLAX added Hyperglycemia, patient is type II diabetic, takes 50 units at home for Lantus Will increase Lantus to 45 units DVT prophylaxis covered with Eliquis Portal vein thrombosis History of rheumatoid arthritis She will continue immunocompromise Discontinue antibiotics Diabetic diet Awaiting inpatient rehab placement Attestations Medical Necessity Statement*: Awaiting placement Diagnoses Closed fracture of right distal fibula S82.831A Risk for falls Z91.81 Closed fracture of right distal tibia S82.301A Closed right ankle fracture S82.891A Encounter type: initial encounter Fracture of distal end of tibia with fibula S82.831A; S82.301A Encounter type: initial encounter Fracture type: closed Laterality: right S/P foot surgery Z98.890 Fall at home W19.XXXD; Y92.009 Encounter type: subsequent encounter Psoriasis L40.9 Seizures R56.9 Portal vein thrombosis I81 Rheumatoid arthritis M06.9 Rheumatoid arthritis location: unspecified site Rheumatoid factor presence: unspecified presence
[2023-01-16] MEDS: oxyCODONE-APAP 10-325 mg Tablet 1 TAB PO (18:14)
[2023-01-16] MEDS: sennosides-docusate Tablet 2 TAB PO (18:14)
[2023-01-16 18:32] LABS: Glucose Point of Care 179 mg/dL (70-110)
[2023-01-16] MEDS: ipratropium-albuterol 3 mL Neb INHALATION (20:54)
[2023-01-16] MEDS: atorvastatin 40 mg Tablet PO (21:03)
[2023-01-16] MEDS: ropinirole 2 mg Tablet 3 MG PO (21:03)
[2023-01-16 21:38] LABS: Glucose Point of Care 363 mg/dL (70-110)
[2023-01-16] MEDS: insulin glargine 100 units/1 mL 45 UNIT SUBCUT (21:50)
[2023-01-16] MEDS: ketorolac 30 mg/mL INJ 15 MG IVP (22:50)
[2023-01-17] VITALS (13 sets, daily range): BP systolic 105–136; BP diastolic 51–72; PULSE 61–98; RESP 17–24; TEMP 36.8–37.4; O2SAT 85–95
[2023-01-17 06:37] LABS: Glucose Point of Care 267 mg/dL (70-110)
--- NOTE | 2023-01-17 06:54 | PM.PN ---
Subjective Subjective: Patient seen at bedside this AM. is present. States her pain is being managed with medications. Has been compliant with nonweightbearing status to the right lower extremity. Patient denies any subjective nausea, vomiting, fever, chills, shortness of breath or chest pain. Awaiting inpatient rehab placement. Vitals/I&O/Wt Last Vital Signs Temp 98.4 F 01/17/23 03:52 Pulse 61 01/17/23 03:52 Resp 19 H 01/17/23 03:52 BP 118/65 01/17/23 03:52 Pulse Ox 90 01/17/23 03:52 O2 Del Method Nasal Cannula 01/16/23 21:01 O2 Flow Rate 3 01/16/23 21:01 01/16/23 01/16/23 01/17/23 14:59 22:59 06:59 Intake Total 300 / 300 240 / 540 Output Total 1200 / 1200 550 / 1750 200 / 1950 Balance -900 / -900 -310 / -1210 -200 / -1410 Physical Exam Narrative: GENERAL: Patient is alert and oriented ?3 and in no acute distress. The following is a focused right lower extremity exam. VASCULAR: Dorsalis pedis palpable, posterior tibial artery palpable. Capillary refill time less than 3 seconds to the distal hallux bilaterally. Calf is supple and nontender proximally and distally. NEUROLOGICAL: Diminished protective sensation to the bilateral lower extremities secondary to neuropathy. DERMATOLOGICAL: Surgical dressings and short leg cast intact to the right lower extremity without strikethrough bleeding. Toes 1 through 5 right foot are pink with capillary refill less than 3 seconds. MUSCULOSKELETAL: Short leg cast left in place to the right lower extremity. Able to wiggle toes on command. Urinary Catheter Management: Dent: Cath Placed During This Visit: yes Reason for Continuing Indwelling Catheter: Required Immobilization for Trauma or Surgery or Anesthesia Urinary Catheter Date of Insertion: 01/13/23 Urinary Catheter Time of Insertion: 20:00 Data 01/17/23 05:45 01/17/23 05:45 A&P Assessment and plan (1) Closed right ankle fracture: Qualifiers: Encounter type: initial encounter Qualified Code(s): S82.891A - Other fracture of right lower leg, initial encounter for closed fracture (2) Fall at home: Qualifiers: Encounter type: subsequent encounter Qualified Code(s): W19.XXXD - Unspecified fall, subsequent encounter; Y92.009 - Unspecified place in unspecified non-institutional (private) residence as the place of occurrence of the external cause (3) Risk for falls: (4) Immunocompromised: (5) Fracture of distal end of tibia with fibula: Qualifiers: Encounter type: initial encounter Fracture type: closed Laterality: right Qualified Code(s): S82.831A - Other fracture of upper and lower end of right fibula, initial encounter for closed fracture; S82.301A - Unspecified fracture of lower end of right tibia, initial encounter for closed fracture (6) Rheumatoid arthritis: Qualifiers: Rheumatoid arthritis location: multiple sites Rheumatoid factor presence: unspecified presence Qualified Code(s): M06.9 - Rheumatoid arthritis, unspecified (7) Long-term current use of opiate analgesic: (8) Diabetes: Qualifiers: Diabetes mellitus complication detail: with neuropathic arthropathy Diabetes mellitus complication status: with diabetic arthropathy Diabetes mellitus shelter insulin use: with shelter use Diabetes mellitus type: type 2 Qualified Code(s): E11.610 - Type 2 diabetes mellitus with diabetic neuropathic arthropathy; 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 Patient has a new injury, fell at home when transferring to her bathroom. New acute fracture is proximal to fixation that was performed 01/13/2023. -Status post left ORIF right ankle performed 01/15/2023. No intraoperative complications. -Anticoagulants resumed. -Strict nonweightbearing right lower extremity. -Patient agreeable for [facility] facility placement. Patient is at high risk for loss of limb, underlying core morbidities include diabetes mellitus type 2, immunocompromise secondary to disease modifying medications for rheumatoid arthritis, has a history of avascular necrosis of the right talus. Patient is a high fall risk. Patient requires assistance with everyday living and requires assistance for transfers. Patient is to remain strict nonweightbearing to her right lower extremity potentially for the next 3 months pending her bony healing rate, this will certainly be suppressed and delayed due to her comorbidities. Unfortunately her insurance is denying [facility] placement. Plans for cast change tomorrow or sooner if she is being transferred I would like to check soft tissue envelope prior to transfer and reapply a new short leg cast. Okay for transfer to [facility] or inpatient rehab from podiatry standpoint. Patient to remain strict nonweightbearing to the right lower extremity. Greatly appreciate hospitalist medical management during this hospitalization. Podiatry will follow. Dr. Goodman Rdz. cell phone number [phone]. Attestations Medical Necessity Statement*: Right ankle fracture Coding Level of Care Code Acute Code for Chg Fwd Diagnoses Closed right ankle fracture S82.891A Encounter type: initial encounter Fall at home W19.XXXD; Y92.009 Encounter type: subsequent encounter Risk for falls Z91.81 Immunocompromised D84.9 Fracture of distal end of tibia with fibula S82.831A; S82.301A Encounter type: initial encounter Fracture type: closed Laterality: right Rheumatoid arthritis M06.9 Rheumatoid arthritis location: multiple sites Rheumatoid factor presence: unspecified presence Long-term current use of opiate analgesic Z79.891 Diabetes E11.610; Z79.4 Diabetes mellitus complication detail: with neuropathic arthropathy Diabetes mellitus complication status: with diabetic arthropathy Diabetes mellitus shelter insulin use: with shelter use Diabetes mellitus type: type 2
[2023-01-17 07:00] LABS: Basophils # 0.1 10^3/uL (0.0-0.1); Basophils % 0.6 %; Eosinophils # 0.4 10^3/uL (0.0-0.8); Eosinophils % 5.1 %; Hematocrit 28.7 % (37.0-47.0); Hemoglobin 8.7 g/dL (11.5-15.3); Lymphocytes # 1.6 10^3/uL (0.8-4.8); Lymphocytes % 20.7 %; Mean Corpuscular HGB Conc 30.3 g/dL (30.0-36.0); Mean Corpuscular Volume 85.7 fl (81-99); Mean Platelet Volume 10.4 fL (7.4-10.4); Monocytes # 0.5 10^3/uL (0.2-0.9); Neutrophils # 5.26 10^3/uL (1.8-7.7); Nucleated Red Blood Cells % 0 %; Platelet Count 151 10^3/cmm (130-400); Red Blood Count 3.35 10^6/uL (4.1-5.3); Red Cell Distribution Width 16.4 % (12.1-15.1); White Blood Count 7.9 10^3/uL (4.0-10.0)
[2023-01-17 07:15] LABS: Alanine Aminotransferase 12 U/L (0-33); Albumin Level 2.4 g/dL (3.5-5.2); Alkaline Phosphatase 151 U/L (35-105); Anion Gap 12.4 (5-19); Aspartate Amino Transferase 18 U/L (0-32); Blood Urea Nitrogen 15 mg/dL (6-20); Calcium 8.3 mg/dL (8.5-10.5); Carbon Dioxide 22 mmol/L (22-29); Chloride 102 mmol/L (98-107); Globulin 3.1 g/dL (1.3-4.6); Glomerular Filtration Rate 104.2 mL/min (90-130); Glucose 217 mg/dL (65-115); Osmolality Calculated 281 mOsm/kg (285-295); Potassium 4.4 mmol/L (3.5-5.1); Sodium 132 mmol/L (136-145); Total Bilirubin 0.6 mg/dL (0.15-1.2); Total Protein 5.5 g/dL (6.6-8.7)
[2023-01-17] MEDS: insulin lispro 100 unit/1 mL SUBCUT ×4 (08:23→21:47)
[2023-01-17] MEDS: gabapentin 300 mg Capsule 600 MG PO ×3 (08:24→20:35)
[2023-01-17] MEDS: metoprolol tartrate 25 mg Tablet PO ×2 (08:24→18:45)
[2023-01-17] MEDS: isosorbide mononitrate ER 30 mg Tablet PO ×2 (08:24→18:45)
[2023-01-17] MEDS: sennosides-docusate Tablet 2 TAB PO (08:28)
[2023-01-17] MEDS: oxyCODONE-APAP 10-325 mg Tablet 1 TAB PO (08:29)
[2023-01-17] MEDS: sertraline 100 mg Tablet PO (08:30)
[2023-01-17] MEDS: aspirin 81 mg EC Tablet PO (08:31)
[2023-01-17] MEDS: nicotine 14 mg Patch 1 PATCH TRANSDERMA (08:31)
[2023-01-17] MEDS: pantoprazole DR 40 mg Tablet PO (08:31)
[2023-01-17] MEDS: apixaban 5 mg Tablet PO ×2 (08:31→18:45)
[2023-01-17] MEDS: budesonide 0.5 mg/2 mL Neb INHALATION ×2 (09:37→20:46)
[2023-01-17] MEDS: ipratropium-albuterol 3 mL Neb INHALATION ×2 (09:37→20:47)
--- NOTE | 2023-01-17 10:30 | PM.PN ---
Subjective Subjective: She is requiring 3 L of oxygen We will request D-dimer She has been on Eliquis Pain well managed Had multiple bowel movement since yesterday No other complaints Vitals/I&O/Wt Last Vital Signs Temp 98.3 F 01/17/23 08:06 Pulse 72 01/17/23 09:37 Resp 18 01/17/23 09:37 BP 114/69 01/17/23 08:06 Pulse Ox 91 01/17/23 09:37 O2 Del Method Nasal Cannula 01/17/23 09:37 O2 Flow Rate 3 01/17/23 09:37 01/16/23 01/17/23 01/17/23 22:59 06:59 14:59 Intake Total 240 / 540 480 / 480 Output Total 550 / 1750 200 / 1950 Balance -310 / -1210 -200 / -1410 480 / 480 Physical Exam Narrative: Currently on 3 L Abdomen soft No acute distress GCS 15 S1, S2 Nonfocal neuro exam Dent catheter in place Urinary Catheter Management: Dent: Cath Placed During This Visit: yes Reason for Continuing Indwelling Catheter: Required Immobilization for Trauma or Surgery or Anesthesia Urinary Catheter Date of Insertion: 01/13/23 Urinary Catheter Time of Insertion: 20:00 Data 01/17/23 05:45 01/17/23 05:45 A&P Assessment and plan (1) Hypoxia: (2) Closed fracture of right distal fibula: (3) Risk for falls: (4) Fall at home: Qualifiers: Encounter type: subsequent encounter Qualified Code(s): W19.XXXD - Unspecified fall, subsequent encounter; Y92.009 - Unspecified place in unspecified non-institutional (private) residence as the place of occurrence of the external cause (5) Fracture of distal end of tibia with fibula: Qualifiers: Encounter type: initial encounter Fracture type: closed Laterality: right Qualified Code(s): S82.831A - Other fracture of upper and lower end of right fibula, initial encounter for closed fracture; S82.301A - Unspecified fracture of lower end of right tibia, initial encounter for closed fracture (6) S/P foot surgery: (7) Psoriasis: (8) Rheumatoid arthritis: Qualifiers: Rheumatoid arthritis location: multiple sites Rheumatoid factor presence: unspecified presence Qualified Code(s): M06.9 - Rheumatoid arthritis, unspecified (9) PVD (peripheral vascular disease): (10) Portal vein thrombosis: (11) Chronic anticoagulation: Plan No need of labs for tomorrow Leukocytosis trending down Acute hypoxia requiring 3 L requested D-dimer Patient has been on Eliquis Recurrent falls requiring inpatient rehab Status post 2 surgeries Opioid-induced constipation: Resolved Hyperglycemia: Improved Portal vein thrombosis covered with Eliquis History of rheumatoid arthritis Immunocompromised Afebrile leukocytosis trending down Antibiotics discontinued on 01/16 Awaiting inpatient rehab placement Diabetic diet Attestations Medical Necessity Statement*: Awaiting placement Diagnoses Hypoxia R09.02 Closed fracture of right distal fibula S82.831A Risk for falls Z91.81 Fall at home W19.XXXD; Y92.009 Encounter type: subsequent encounter Fracture of distal end of tibia with fibula S82.831A; S82.301A Encounter type: initial encounter Fracture type: closed Laterality: right S/P foot surgery Z98.890 Psoriasis L40.9 Rheumatoid arthritis M06.9 Rheumatoid arthritis location: multiple sites Rheumatoid factor presence: unspecified presence PVD (peripheral vascular disease) I73.9 Portal vein thrombosis I81 Chronic anticoagulation Z79.01
[2023-01-17 10:55] LABS: D Dimer 3.06 ug/mIFEU (0-0.59)
[2023-01-17 10:58] LABS: Glucose Point of Care 306 mg/dL (70-110)
[2023-01-17] MEDS: HYDROmorphone 1 mg/mL INJ 1 mL 0.4 MG IVP (11:01)
--- NOTE | 2023-01-17 15:39 | CTR_ITS ---
PROCEDURE INFORMATION: Exam: CTA Chest With Contrast Exam date and time: 01/17/2023 6:18 PM Age: 52 years old Clinical indication: Shortness of breath; Additional info: Hypoxia TECHNIQUE: Imaging protocol: Computed tomographic angiography of the chest with contrast. Exam focused on the arteries. 3D rendering (Not supervised by radiologist): MIP and/or 3D reconstructed images were created by the technologist. Radiation optimization: All CT scans at this facility use at least one of these dose optimization techniques: automated exposure control; mA and/or kV adjustment per patient size (includes targeted exams where dose is matched to clinical indication); or iterative reconstruction. Contrast material: OMNI 350; Contrast volume: 100 ml; Contrast route: INTRAVENOUS (IV); REPORTING DATA: Count of CT and Cardiac NM exams in prior 12 months: This patient has received 3 known CTs and 0 known cardiac nuclear medicine studies in the 12 months prior to the current study. COMPARISON: 1. CT angio chest PE protcl [id number] 08/14/2020 8:[address] lung screening [id number] 03/01/2022 1:[address] chest w con* [id number] 06/30/2020 9:06 AM 4. CR (CHEST, ) 01/13/2023 7:15 PM RADIATION DOSE METRICS: Total DLP (mGy-cm): 463.75 FINDINGS: Pulmonary arteries: Normal. No pulmonary emboli. Aorta: Mild systemic atherosclerotic calcification without aneurysmal dilatation. Lungs: Emphysematous changes. Diffuse bilateral patchy ground-glass opacities, which shows associated smooth interlobular septal thickening at the upper lungs. Mild dependent bibasilar consolidation favored to represent atelectasis. Small calcified granuloma at the right upper lobe. Pleural spaces: Small right pleural effusion. No pneumothorax. Heart: Unremarkable. No cardiomegaly. No pericardial effusion. Coronary arteries: Moderate coronary artery calcification. Lymph nodes: Mildly prominent mediastinal and [id number]-left hilar lymph nodes stable dating back to June 2020. Gallbladder and bile ducts: Prior cholecystectomy. Spleen: Few tiny splenic calcifications in keeping with sequela of old granulomatous disease. Bones/joints: No acute fracture. Multiple healed bilateral rib fracture deformities. Soft tissues: Unremarkable. CT/CT angio chest PE protcl [id number] IMPRESSION: 1. No pulmonary embolism. 2. Abnormal lung findings and small right pleural effusion most commonly seen in the setting of pulmonary edema. However, appearance is nonspecific and could also be seen in the setting of infection or other less common etiologies such as drug reaction or pulmonary hemorrhage. 3. Atherosclerosis with moderate coronary artery calcification. 4. Stable mild mediastinal and hilar lymphadenopathy. COMMENTS: In the absence of a history or active diagnosis of lung cancer, it is recommended that this patient with emphysema be evaluated for enrollment in a low dose CT lung cancer screening program.
--- NOTE | 2023-01-17 15:39 | USCV_ITS ---
Erin Kelley Age: 52 Gender: F : 1970 Exam Date: 01/17/2023 16:26 Ordering Phys: Tiffany Wahl MD Technologist: APRYL Exam Location: [facility] [place] Indication: Leg Swelling HISTORY: Lower extremity swelling. PROCEDURES: Venous duplex imaging was performed in bilateral lower extremities. The following venous structures were evaluated: common femoral vein, profunda vein, proximal portion of the greater saphenous vein, superficial femoral vein, and the popliteal vein. In addition, the posterior tibial and peroneal trunk were evaluated. Serial compression, augmentation maneuvers, and spectral Doppler flow evaluation were performed. FINDINGS: No evidence of DVT seen in any vessel visualized at this time. CONCLUSIONS No evidence of right lower extremity DVT. No evidence of left lower extremity DVT. Jhonny Arroyo MD (Electronically Signed) Final Date: 17 January 2023 17:29 S
[2023-01-17] MEDS: iohexol 350 mg/mL 500 mL Btl (per mL) IV (18:39)
[2023-01-17 18:55] LABS: Glucose Point of Care 209 mg/dL (70-110)
[2023-01-17] MEDS: atorvastatin 40 mg Tablet PO (20:26)
[2023-01-17] MEDS: ropinirole 2 mg Tablet 3 MG PO (20:35)
[2023-01-17 20:54] LABS: Glucose Point of Care 155 mg/dL (70-110)
[2023-01-17 21:13] LABS: Glucose Point of Care 215 mg/dL (70-110)
[2023-01-17 21:13] LABS: Glucose Point of Care 231 mg/dL (70-110)
[2023-01-17] MEDS: insulin glargine 100 units/1 mL 45 UNIT SUBCUT (21:47)
[2023-01-17] MEDS: FUROsemide 10 mg/mL SDV 2mL 20 MG IVP (21:55)
[2023-01-17] MEDS: vancomycin 1,250 MG/250 ML PIGGYBACK 250 MG IV (21:59)
[2023-01-17] MEDS: cefepime 2,000 MG in sodium chloride 0.9% (plus) 50 ML 100 MG IV (23:28)
[2023-01-18] VITALS (11 sets, daily range): BP systolic 116–144; BP diastolic 56–74; PULSE 60–72; RESP 15–18; TEMP 36.6–36.9; O2SAT 92–98
[2023-01-18 02:19] LABS: Adenovirus Not Detected (NOT DETECT); Chlamydia Pneumoniae Not Detected (NOT DETECT); Coronavirus 229E,HKU1,NL63,OC4 Not Detected (NOT DETECT); Human Metapneumovirus Not Detected (NOT DETECT); Human Rhinovirus/Enterovirus Not Detected (NOT DETECT); Influenza A Not Detected (NOT DETECT); Influenza A H1 Not Detected (NOT DETECT); Influenza A H1-2009 Not Detected (NOT DETECT); Influenza A H3 Not Detected (NOT DETECT); Influenza B Not Detected (NOT DETECT); Mycoplasma Pneumoniae Not Detected (NOT DETECT); Parainfluenza Virus Type 1 Not Detected (NOT DETECT); Parainfluenza Virus Type 2 Not Detected (NOT DETECT); Parainfluenza Virus Type 3 Not Detected (NOT DETECT); Parainfluenza Virus Type 4 Not Detected (NOT DETECT); Respiratory Syncytial Virus A Not Detected (NOT DETECT); Respiratory Syncytial Virus B Not Detected (NOT DETECT); SARS-COV-2 Not Detected (NOT DETECT)
[2023-01-18] MEDS: oxyCODONE-APAP 10-325 mg Tablet 1 TAB PO ×3 (03:55→16:32)
[2023-01-18] MEDS: HYDROmorphone 1 mg/mL INJ 1 mL 0.4 MG IVP ×2 (05:10→11:18)
[2023-01-18] MEDS: budesonide 0.5 mg/2 mL Neb INHALATION (07:32)
[2023-01-18] MEDS: ipratropium-albuterol 3 mL Neb INHALATION (07:32)
--- NOTE | 2023-01-18 07:32 | P.PN_ITS ---
Subjective Subjective: Patient seen bedside this AM. She is in good spirits. Planning on cast change today. Awaiting inpatient rehab placement. Patient denies any subjective nausea, vomiting, fever, chills, shortness of breath or chest pain. Vitals/I&O/Wt Last Vital Signs Temp 98.2 F 01/18/23 04:00 Pulse 71 01/18/23 04:00 Resp 16 01/18/23 04:00 BP 144/73 01/18/23 04:00 Pulse Ox 95 01/18/23 04:00 O2 Del Method Room Air 01/18/23 04:00 O2 Flow Rate 6 01/17/23 23:45 01/17/23 01/18/23 01/18/23 22:59 06:59 14:59 Intake Total 240 / 1200 300 / 1500 Output Total 520 / 520 900 / 1420 Balance -280 / 680 -600 / 80 Physical Exam Narrative: GENERAL: Patient is alert and oriented ?3 and in no acute distress. The following is a focused right lower extremity exam. VASCULAR: Dorsalis pedis palpable, posterior tibial artery palpable. Capillary refill time less than 3 seconds to the distal hallux bilaterally. Calf is supple and nontender proximally and distally. NEUROLOGICAL: Diminished protective sensation to the bilateral lower extremities secondary to neuropathy. DERMATOLOGICAL: Short leg cast was removed for incision inspection and dressing change. The right anterior ankle incision is well coapted with sutures intact, no dehiscence and no skin necrosis appreciated. Percutaneous incisions at the heel and leg also well coapted without dehiscence or kishan-incisional erythema or warmth. MUSCULOSKELETAL: Maintain position with ankle in neutral. Able to wiggle toes on command. Urinary Catheter Management: Dent: Cath Placed During This Visit: yes Reason for Continuing Indwelling Catheter: Other Urinary Catheter Date of Insertion: 01/13/23 Urinary Catheter Time of Insertion: 20:00 Data 01/17/23 05:45 01/17/23 05:45 A&P Assessment and plan (1) Closed right ankle fracture: Qualifiers: Encounter type: initial encounter Qualified Code(s): S82.891A - Other fracture of right lower leg, initial encounter for closed fracture (2) Fall at home: Qualifiers: Encounter type: subsequent encounter Qualified Code(s): W19.XXXD - Unspecified fall, subsequent encounter; Y92.009 - Unspecified place in unspecified non-institutional (private) residence as the place of occurrence of the external cause (3) Risk for falls: (4) Immunocompromised: (5) Fracture of distal end of tibia with fibula: Qualifiers: Encounter type: initial encounter Fracture type: closed Laterality: right Qualified Code(s): S82.831A - Other fracture of upper and lower end of right fibula, initial encounter for closed fracture; S82.301A - Unspecified fracture of lower end of right tibia, initial encounter for closed fracture (6) Rheumatoid arthritis: Qualifiers: Rheumatoid arthritis location: multiple sites Rheumatoid factor presence: unspecified presence Qualified Code(s): M06.9 - Rheumatoid arthritis, unspecified (7) Long-term current use of opiate analgesic: (8) Diabetes: Qualifiers: Diabetes mellitus complication detail: with neuropathic arthropathy D iabetes mellitus complication status: with diabetic arthropathy Diabetes m ellitus termite renewal inspector insulin use: with nursing home use Diabetes mellitus type: type 2 Qualified Code(s): E11.610 - Type 2 diabetes mellitus with diabetic neuropathic arthropathy; Z79.4 - detention (current) use of insulin Plan 52-year-old female presents with acute fracture right distal fibula and tibia. Patient has a new injury, fell at home when transferring to her bathroom. New acute fracture is proximal to fixation that was performed 01/13/2023. -Status post left ORIF right ankle performed 01/15/2023. No intraoperative complications. -Anticoagulants resumed. -Strict nonweightbearing right lower extremity. -Surgical dressing changed this AM. Incision is well-healing without dehiscence, sutures intact, skin margins are viable. -New well-padded short leg cast applied to the right lower extremity. -Patient agreeable for fdc facility placement. Patient is at high risk for loss of limb, underlying core morbidities include diabetes mellitus type 2, immunocompromise secondary to disease modifying medications for rheumatoid arthritis, has a history of avascular necrosis of the right talus. Patient is a high fall risk. Patient requires assistance with everyday living and requires assistance for transfers. Patient is to remain strict nonweightbearing to her right lower extremity potentially for the next 3 months pending her bony healing rate, this will certainly be suppressed and delayed due to her comorbidities. Unfortunately her insurance is denying fdc placement. Okay for transfer to fdc or inpatient rehab from podiatry standpoint. Patient to remain strict nonweightbearing to the right lower extremity. Greatly appreciate hospitalist medical management during this hospitalization. Podiatry will follow. Dr. Goodman Rdz. cell phone number [phone]. Attestations Medical Necessity Statement*: Right ankle fracture Coding Level of Care Code Acute Code for Chg Fwd Diagnoses Closed right ankle fracture S82.891A Encounter type: initial encounter Fall at home W19.XXXD; Y92.009 Encounter type: subsequent encounter Risk for falls Z91.81 Immunocompromised D84.9 Fracture of distal end of tibia with fibula S82.831A; S82.301A Encounter type: initial encounter Fracture type: closed Laterality: right Rheumatoid arthritis M06.9 Rheumatoid arthritis location: multiple sites Rheumatoid factor presence: unspecified presence Long-term current use of opiate analgesic Z79.891 Diabetes E11.610; Z79.4 Diabetes mellitus complication detail: with neuropathic arthropathy Diabetes mellitus complication status: with diabetic arthropathy Diabetes mellitus termite renewal inspector insulin use: with termite renewal inspector use Diabetes mellitus type: type 2
[2023-01-18] MEDS: isosorbide mononitrate ER 30 mg Tablet PO (08:39)
[2023-01-18] MEDS: pantoprazole DR 40 mg Tablet PO (08:39)
[2023-01-18] MEDS: gabapentin 300 mg Capsule 600 MG PO ×2 (08:39→15:56)
[2023-01-18] MEDS: aspirin 81 mg EC Tablet PO (08:39)
[2023-01-18] MEDS: apixaban 5 mg Tablet PO ×2 (08:39→17:58)
[2023-01-18] MEDS: metoprolol tartrate 25 mg Tablet PO ×2 (08:39→17:58)
[2023-01-18] MEDS: sertraline 100 mg Tablet PO (08:39)
[2023-01-18] MEDS: nicotine 14 mg Patch 1 PATCH TRANSDERMA (08:40)
[2023-01-18 08:42] LABS: Glucose Point of Care 229 mg/dL (70-110)
[2023-01-18] MEDS: insulin lispro 100 unit/1 mL SUBCUT ×3 (08:46→17:58)
[2023-01-18] MEDS: cefepime 2,000 MG in sodium chloride 0.9% (plus) 50 ML 100 MG IV (09:22)
[2023-01-18] MEDS: vancomycin 1,250 MG/250 ML PIGGYBACK 250 MG IV (10:07)
--- NOTE | 2023-01-18 11:04 | PM.PN ---
Subjective Subjective: Patient is on 2 L of oxygen Saturating 96% Afebrile Started on antibiotics COVID PCR negative No signs of PE I will give her extra dose of Lasix last dose was given 711 Experiencing nonproductive cough, added Mucinex Vitals/I&O/Wt Last Vital Signs Temp 97.8 F 01/18/23 07:50 Pulse 68 01/18/23 07:50 Resp 17 01/18/23 10:24 BP 121/56 01/18/23 07:50 Pulse Ox 92 01/18/23 07:50 O2 Del Method Simple Mask 01/18/23 07:50 O2 Flow Rate 6 01/18/23 07:35 01/17/23 01/18/23 01/18/23 22:59 06:59 14:59 Intake Total 240 / 1200 300 / 1500 480 / 480 Output Total 520 / 520 900 / 1420 Balance -280 / 680 -600 / 80 480 / 480 Physical Exam Narrative: Patient saturating 96% on 2 L Abdomen soft Lung auscultation revealed normal breath sounds with rhonchi Abdomen soft Right foot covered in dressing S1, S2 Awake and alert GCS [address] Urinary Catheter Management: Dent: Cath Placed During This Visit: yes Reason for Continuing Indwelling Catheter: Other Urinary Catheter Date of Insertion: 01/13/23 Urinary Catheter Time of Insertion: 20:00 Data 01/17/23 05:45 01/17/23 05:45 A&P Assessment and plan (1) Hypoxia: (2) Closed fracture of right distal fibula: (3) Fall at home: Qualifiers: Encounter type: subsequent encounter Qualified Code(s): W19.XXXD - Unspecified fall, subsequent encounter; Y92.009 - Unspecified place in unspecified non-institutional (private) residence as the place of occurrence of the external cause (4) Closed fracture of right distal tibia: (5) Closed right ankle fracture: Qualifiers: Encounter type: initial encounter Qualified Code(s): S82.891A - Other fracture of right lower leg, initial encounter for closed fracture (6) S/P foot surgery: (7) Right ankle pain: Qualifiers: Chronicity: acute Qualified Code(s): M25.571 - Pain in right ankle and joints of right foot (8) Psoriasis: (9) Rheumatoid arthritis: Qualifiers: Rheumatoid arthritis location: multiple sites Rheumatoid factor presence: unspecified presence Qualified Code(s): M06.9 - Rheumatoid arthritis, unspecified (10) Chronic anticoagulation: (11) Portal vein thrombosis: Plan Ankle and lower extremity fracture status post intervention Awaiting inpatient rehab Portal vein thrombosis continue Acute hypoxia: Concern for pneumonia started on vancomycin and cefepime, discontinue vancomycin if MRSA PCR negative, currently on 2 L We will give extra dose of Lasix today Recheck BMP tomorrow Patient carries diagnosis of mild pulm hypertension with preserved ejection fraction Clinically does not look fluid overloaded PCR negative Add Mucinex for nonproductive cough Requested sputum culture She has remained afebrile, no significant leukocytosis, if she remains stable I might de-escalate antibiotics to p.o. only by tomorrow Awaiting placement Constipation: Resolved Patient does not want to remove her Dent catheter until the day of discharge, I would like to discontinue Dent catheter today and not wait too long that would pose high risk for UTI Working with PT Full code History carb diet Hyperglycemia improved Patient is medically cleared to be discharged once she gets accepted Attestations Medical Necessity Statement*: Awaiting placement Diagnoses Hypoxia R09.02 Closed fracture of right distal fibula S82.831A Fall at home W19.XXXD; Y92.009 Encounter type: subsequent encounter Closed fracture of right distal tibia S82.301A Closed right ankle fracture S82.891A Encounter type: initial encounter S/P foot surgery Z98.890 Right ankle pain M25.571 Chronicity: acute Psoriasis L40.9 Rheumatoid arthritis M06.9 Rheumatoid arthritis location: multiple sites Rheumatoid factor presence: unspecified presence Chronic anticoagulation Z79.01 Portal vein thrombosis I81
[2023-01-18 11:38] LABS: Glucose Point of Care 349 mg/dL (70-110)
[2023-01-18] MEDS: FUROsemide 10 mg/mL SDV 2mL 20 MG IVP (11:57)
--- NOTE | 2023-01-18 14:01 | P.DS_ITS ---
Discharge Providers Date of Admission: 01/13/23 19:07 Date of Discharge: January 18, 2023 Attending Provider at Admission: Pamela Monge MD Attending Provider at Discharge: Tiffany Wahl MD Primary Care Provider: Nel Peacock MD Diagnoses at Discharge Discharge Diagnosis (1) Hypoxia: Status: Acute (2) Closed fracture of right distal fibula: Status: Acute (3) Fall at home: Status: Acute Qualifiers: Encounter type: subsequent encounter Qualified Code(s): W19.XXXD - Unspecified fall, subsequent encounter; Y92.009 - Unspecified place in unspecified non-institutional (private) residence as the place of occurrence of the external cause (4) Closed fracture of right distal tibia: Status: Acute (5) Closed right ankle fracture: Status: Acute Qualifiers: Encounter type: initial encounter Qualified Code(s): S82.891A - Other fracture of right lower leg, initial encounter for closed fracture (6) S/P foot surgery: Status: Acute (7) Right ankle pain: Status: Acute Qualifiers: Chronicity: acute Qualified Code(s): M25.571 - Pain in right ankle and joints of right foot (8) Psoriasis: Status: Acute (9) Rheumatoid arthritis: Status: Acute Qualifiers: Rheumatoid arthritis location: multiple sites Rheumatoid factor presence: unspecified presence Qualified Code(s): M06.9 - Rheumatoid arthritis, unspecified (10) Chronic anticoagulation: Status: Acute (11) Portal vein thrombosis: Status: Acute Reason for Visit Reason for Visit: LATERAL FOOT Physical Exam Urinary Catheter Management: Dent: Cath Placed During This Visit: yes Reason for Continuing Indwelling Catheter: Other Urinary Catheter Date of Insertion: 01/13/23 Urinary Catheter Time of Insertion: 20:00 Discharge Data Studies Completed and Pending Completed Studies During Hospitalization Category Date Time Status CTA PE [CT angio chest PE protcl [id number]] Routine Cat Scan 01/17/23 15:39 Completed XR ankle RT 2V 03061 Routine Exams 01/15/23 Completed XR ankle RT min 3V* [id number] Routine Exams 01/16/23 06:40 Completed XR ankle RT min 3V* [id number] Stat Exams 01/13/23 17:54 Completed XR chest 1V 97617 Routine Exams 01/13/23 19:09 [place] [id number] Routine Ultrasound 01/17/23 15:39 Completed Pending at discharge Category Date Time Status Basic Metabolic Panel AM LABS Lab 01/19/23 04:00 Ordered Blood Culture Routine Lab 01/13/23 19:24 Results CDIFF [Clostridioides Difficile PCR] Routine Lab 01/17/23 12:00 Received Complete Blood Count w/Auto AM LABS Lab 01/19/23 04:00 Ordered Fungitell Glucan Assay (Blood) AM LABS Lab 01/18/23 06:20 Received MRSA by PCR Routine Lab 01/18/23 00:00 Received Pneumocystis jiroveci Qual PCR Routine Lab 01/17/23 21:35 Ordered Sputum Culture and Gram Stain Routine Lab 01/17/23 21:35 Uncollected Urine Culture Stat Lab 01/13/23 20:17 Ordered Vancomycin Trough Timed Lab 01/19/23 09:00 Ordered Radiology Impressions Chest X-Ray 01/13/23 19:09 IMPRESSION: No acute findings. Ankle X-Ray 01/16/23 06:40 IMPRESSION: Arthrodesis and fracture fixation right ankle and hindfoot as above. Chest CTA 01/17/23 15:39 IMPRESSION: 1. No pulmonary embolism. 2. Abnormal lung findings and small right pleural effusion most commonly seen in the setting of pulmonary edema. However, appearance is nonspecific and could also be seen in the setting of infection or other less common etiologies such as drug reaction or pulmonary hemorrhage. 3. Atherosclerosis with moderate coronary artery calcification. 4. Stable mild mediastinal and hilar lymphadenopathy. COMMENTS: In the absence of a history or active diagnosis of lung cancer, it is recommended that this patient with emphysema be evaluated for enrollment in a low dose CT lung cancer screening program. Laboratory Results WBC 7.9 10^3/uL (4.0-10.0) 01/17/23 05:45 RBC 3.35 10^6/uL (4.1-5.3) L 01/17/23 05:45 Hgb 8.7 g/dL (11.5-15.3) L 01/17/23 05:45 Hct 28.7 % (37.0-47.0) L 01/17/23 05:45 MCV 85.7 fl (81-99) 01/17/23 05:45 MCH 26.0 pg (28.0-34.0) L 01/17/23 05:45 MCHC 30.3 g/dL (30.0-36.0) 01/17/23 05:45 RDW 16.4 % (12.1-15.1) H 01/17/23 05:45 Plt Count 151 10^3/cmm (130-400) 01/17/23 05:45 MPV 10.4 fL (7.4-10.4) 01/17/23 05:45 Neut % (Auto) 67.0 % 01/17/23 05:45 Lymph % (Auto) 20.7 % 01/17/23 05:45 Moffat % (Auto) 6.0 % 01/17/23 05:45 Eos % (Auto) 5.1 % 01/17/23 05:45 Baso % (Auto) 0.6 % 01/17/23 05:45 Neut # (Auto) 5.26 10^3/uL (1.8-7.7) 01/17/23 05:45 Lymph # (Auto) 1.6 10^3/uL (0.8-4.8) 01/17/23 05:45 Moffat # (Auto) 0.5 10^3/uL (0.2-0.9) 01/17/23 05:45 Eos # (Auto) 0.4 10^3/uL (0.0-0.8) 01/17/23 05:45 Baso # (Auto) 0.1 10^3/uL (0.0-0.1) 01/17/23 05:45 Nucleated RBC % (auto) 0 % 01/17/23 05:45 Nucleated RBCs # 0.0 /100WBC 01/17/23 05:45 PT 14.00 SECONDS (12.1-14.9) 01/14/23 03:37 INR 1.05 (0.8-1.2) 01/14/23 03:37 D-Dimer 3.06 ug/mIFEU (0-0.59) H 01/17/23 05:45 Sodium 132 mmol/L (136-145) L 01/17/23 05:45 Potassium 4.4 mmol/L (3.5-5.1) 01/17/23 05:45 Chloride 102 mmol/L (98-107) 01/17/23 05:45 Carbon Dioxide 22 mmol/L (22-29) 01/17/23 05:45 Anion Gap 12.4 (5-19) 01/17/23 05:45 BUN 15 mg/dL (6-20) 01/17/23 05:45 Creatinine 0.6 mg/dL (0.5-0.9) 01/17/23 05:45 GFR Calculation 104.2 mL/min (90-130) 01/17/23 05:45 Glucose 217 mg/dL (65-115) H 01/17/23 05:45 POC Glucose 349 mg/dL (70-110) H 01/18/23 11:15 Calculated Osmolality 281 mOsm/kg (285-295) L 01/17/23 05:45 Lactic Acid 2.7 mmol/L (0.5-2.2) H 01/14/23 03:37 Lactic Acid (Sepsis) 1.6 mmol/L (0.5-2.2) 01/14/23 07:33 Calcium 8.3 mg/dL (8.5-10.5) L 01/17/23 05:45 Magnesium 1.9 mg/dL (1.7-2.3) 01/14/23 03:37 Total Bilirubin 0.6 mg/dL (0.15-1.2) 01/17/23 05:45 AST 18 U/L (0-32) 01/17/23 05:45 ALT 12 U/L (0-33) 01/17/23 05:45 Alkaline Phosphatase 151 U/L (35-105) H 01/17/23 05:45 Total Protein 5.5 g/dL (6.6-8.7) L 01/17/23 05:45 Albumin 2.4 g/dL (3.5-5.2) L 01/17/23 05:45 Globulin 3.1 g/dL (1.3-4.6) 01/17/23 05:45 Nasal Influ A H1 2008 PCR Not detected (NOT DETECT) 01/18/23 00:00 Adenovirus (PCR) Not detected (NOT DETECT) 01/18/23 00:00 C. pneumoniae DNA (PCR) Not detected (NOT DETECT) 01/18/23 00:00 Coronavirus 229E (PCR) Not detected (NOT DETECT) 01/18/23 00:00 Human Metapneumovir PCR Not detected (NOT DETECT) 01/18/23 00:00 Influenza A (H1) PCR Not detected (NOT DETECT) 01/18/23 00:00 Influenza A (H3) PCR Not detected (NOT DETECT) 01/18/23 00:00 Influenza Type A (PCR) Not detected (NOT DETECT) 01/18/23 00:00 Influenza Type B (PCR) Not detected (NOT DETECT) 01/18/23 00:00 M. pneumoniae (PCR) Not detected (NOT DETECT) 01/18/23 00:00 Parainfluenza 1 (PCR) Not detected (NOT DETECT) 01/18/23 00:00 Parainfluenza 2 (PCR) Not detected (NOT DETECT) 01/18/23 00:00 Parainfluenza 3 (PCR) Not detected (NOT DETECT) 01/18/23 00:00 Parainfluenza 4 (PCR) Not detected (NOT DETECT) 01/18/23 00:00 RSV Type A (PCR) Not detected (NOT DETECT) 01/18/23 00:00 RSV Type B (PCR) Not detected (NOT DETECT) 01/18/23 00:00 Entero/Rhino (PCR) Not detected (NOT DETECT) 01/18/23 00:00 SARS-CoV-2 (PCR) Not detected (NOT DETECT) 01/18/23 00:00 Vitals Last Vital Signs Temp 98.4 F 01/18/23 11:46 Pulse 72 01/18/23 11:46 Resp 18 01/18/23 11:46 BP 135/56 01/18/23 11:46 Pulse Ox 98 01/18/23 11:46 O2 Del Method Nasal Cannula 01/18/23 11:46 O2 Flow Rate 6 01/18/23 07:35 Discharge Plan Discharge Patient Disposition: Home Condition: Stable Prescriptions: No Action omeprazole 40 mg capsule,delayed release(DR/EC) 40 mg PO DAILY melatonin 3 mg capsule 3 mg PO DAILY metoprolol tartrate 25 mg tablet 25 mg PO BID Qty: 180 3RF Eliquis 5 mg tablet 5 mg PO BID oxycodone 15 mg tablet 15 mg PO BID PRN (Reason: pain) 30 Days Qty: 60 0RF Rx Instructions: fill on or after 09/17/21 diclofenac sodium [Voltaren Arthritis Pain] 1 % gel 4 g topical QID Qty: 100 2RF Rx Instructions: apply to single knee, ankle, foot; for foot includes sole/toes/top of foot rosuvastatin [Crestor] 20 mg tablet 20 mg PO DAILY Lantus U-100 Insulin 100 unit/mL solution 50 unit SUBCUT DAILY@0800 ropinirole 2 mg tablet 3 mg PO BEDTIME tamsulosin [Flomax] 0.4 mg capsule 0.4 mg PO DAILY alprazolam 0.25 mg tablet 0.25 mg PO DAILY PRN (Reason: anxiety) gabapentin 300 mg capsule 600 mg PO TID 30 Days Qty: 180 1RF enalapril maleate 10 mg tablet 5 mg PO DAILY nitroglycerin [Nitrostat] 0.4 mg tablet, sublingual 0.4 mg SUBLINGUAL Q5M PRN (Reason: chest pain) 30 Days Qty: 25 6RF Rx Instructions: until response; do not exceed 3 doses per episode nicotine 14 mg/24 hr patch 24 hour 1 patch transdermal DAILY Qty: 28 0RF Rx Instructions: use one per 24 hours prednisone 5 mg tablet 5 mg PO DAILY PRN (Reason: FLARES) Qty: 60 2RF albuterol sulfate [Ventolin HFA] 90 mcg/actuation HFA aerosol inhaler 2 puff inhalation Q6H PRN (Reason: shortness of breath or wheezing) Qty: 8.5 3RF Orencia 125 mg/mL syringe 125 mg SUBCUT .qweek Qty: 4 5RF betamethasone dipropionate 0.05 % ointment 1 applic topical BID Qty: 45 3RF Rx Instructions: Apply to affected area no more than two weeks per month. Not for face or skin folds. fluocinonide 0.05 % ointment 1 applic topical BID Qty: 60 2RF Rx Instructions: Apply to affected area twice daily no more than 2wks per month. Not for face or folds Combivent Respimat 20-100 mcg/actuation mist 1 puff INHALATION Q6H PRN (Reason: Shortness Of Breath) Qty: 4 5RF (DME) Knee Walker See Rx Instructions .Route .MEDSUPPLY Qty: 1 0RF Rx Instructions: As directed HOME- Patient has been instructed to be non-weight bearing to the Right Lower Extremity. epinephrine [EpiPen 2-[place]] 0.3 mg/0.3 mL Auto-Injector See Rx Instructions .ROUTE .COMPLEX PRN (Reason: Allergic Reaction) Rx Instructions: DIRECTED PRN insulin aspart U-100 [Novolog FlexPen U-100 Insulin] 100 unit/mL (3 mL) insulin pen See Rx Instructions .ROUTE .COMPLEX Rx Instructions: PER SLIDING SCALE glucagon HCl [Glucagon (HCl) Emergency Kit] 1 mg Recon Soln 1 mg SUBCUT Q20M PRN (Reason: blood sugar) Qty: 0 albuterol sulfate 2.5 mg /3 mL (0.083 %) Solution For Nebulization 2.5 mg INHALATION Q6H PRN (Reason: Shortness Of Breath) aspirin 81 mg Tablet,Delayed Release (Dr/Ec) 81 mg PO DAILY@0800 sertraline [Zoloft] 100 mg tablet 100 mg PO DAILY isosorbide mononitrate 30 mg tablet extended release 24 hr 30 mg PO BID oxycodone 15 mg tablet 15 mg PO Q6H PRN (Reason: pain) 7 Days Qty: 28 0RF Referrals: Nel Peacock MD [Primary Care Provider] - Patient Instructions: Opioid Safety Discharge Attestations Status at Discharge: Cognitive status at discharge: cognitively intact , Behavioral status at discharge: cooperative , Coding Level of Care Code Acute Code for [facility] Fwd Diagnoses Hypoxia R09.02 Closed fracture of right distal fibula S82.831A Fall at home W19.XXXD; Y92.009 Encounter type: subsequent encounter Closed fracture of right distal tibia S82.301A Closed right ankle fracture S82.891A Encounter type: initial encounter S/P foot surgery Z98.890 Right ankle pain M25.571 Chronicity: acute Psoriasis L40.9 Rheumatoid arthritis M06.9 Rheumatoid arthritis location: multiple sites Rheumatoid factor presence: unspecified presence Chronic anticoagulation Z79.01 Portal vein thrombosis I81
--- NOTE | 2023-01-18 15:15 | P.TS_ITS ---
Transfer Summary Providers Date of Admission: 01/13/23 19:07 Date of Discharge/Transfer: 01/18/23 Attending Provider at Admission: Pamela Monge MD Attending Provider at Transfer: Tiffany Wahl MD Primary Care Provider: Nel Peacock MD Transfer Plans: Anticipated date of transfer: 01/18/23 . Diagnoses at Discharge Discharge Diagnosis (1) Hypoxia: Status: Acute (2) Closed fracture of right distal fibula: Status: Acute (3) Fall at home: Status: Acute Qualifiers: Encounter type: subsequent encounter Qualified Code(s): W19.XXXD - Unspecified fall, subsequent encounter; Y92.009 - Unspecified place in unspecified non-institutional (private) residence as the place of occurrence of the external cause (4) Closed fracture of right distal tibia: Status: Acute (5) Closed right ankle fracture: Status: Acute Qualifiers: Encounter type: initial encounter Qualified Code(s): S82.891A - Other fracture of right lower leg, initial encounter for closed fracture (6) S/P foot surgery: Status: Acute (7) Right ankle pain: Status: Acute Qualifiers: Chronicity: acute Qualified Code(s): M25.571 - Pain in right ankle and joints of right foot (8) Psoriasis: Status: Acute (9) Rheumatoid arthritis: Status: Acute Qualifiers: Rheumatoid arthritis location: multiple sites Rheumatoid factor presence: unspecified presence Qualified Code(s): M06.9 - Rheumatoid arthritis, unspecified (10) Chronic anticoagulation: Status: Acute (11) Portal vein thrombosis: Status: Acute Reason for Visit Reason for Visit LATERAL FOOT Hospital Course Hospital Course Erin Kelley is a 52 year old female With past medical history of fracture of left ankle, chronic anticoagulation, degenerative disc disease, diabetes, emphysema COPD, hypertension, immunocompromise status, portal vein thrombosis, syncope, 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 Prior to this hospitalization she had right ankle fusion done same day 01/[address] Sales.? She was discharged home.? She says she was getting help getting from the bed to the bedside commode but feels that she turned too quickly and lost her balance and subsequently tripped and fell on her surgical foot.? This time patient suffered from right distal tibial fracture, went for ORIF 01/15 without any complications, however postoperatively she was requiring 3 to 4 L of oxygen which we were able to wean down to 2 L at the time of discharge, chest x- ray and CT scan showed groundglass opacities consistent with pulm edema she was put on antibiotics however she remained afebrile without significant leukocytosis, MRSA nares PCR negative, she will be discharged on levofloxacin and 2 L of oxygen, she suffered from constipation, required senna S and developed diarrhea, C. difficile ruled out. She is being sent to [facility] inpatient rehab with stable hemodynamics, Dr. Sales has recommended complete nonweightbearing of right leg for at least 3 months, she will continue her Eliquis for portal vein thrombosis, her D-dimer was high however during this visit CTA chest and venous Doppler did not show any signs of thromboembolism. Patient has history of mild primary hypertension and diastolic dysfunction she was given Lasix 20 mg IV push. Physical Exam Narrative: Patient saturating 96% on 2 L Abdomen soft Lung auscultation revealed normal breath sounds with rhonchi Abdomen soft Right foot covered in dressing S1, S2 Awake and alert GCS 15 Urinary Catheter Management: Dent: Cath Placed During This Visit: yes Reason for Continuing Indwelling Catheter: Other Urinary Catheter Date of Insertion: 01/13/23 Urinary Catheter Time of Insertion: 20:00 TS Data Studies Completed and Pending Pending at discharge Category Date Time Status Basic Metabolic Panel AM LABS Lab 01/19/23 04:00 Ordered Blood Culture Routine Lab 01/13/23 19:24 Results Complete Blood Count w/Auto AM LABS Lab 01/19/23 04:00 Ordered Fungitell Glucan Assay (Blood) AM LABS Lab 01/18/23 06:20 Received Pneumocystis jiroveci Qual PCR Routine Lab 01/17/23 21:35 Ordered Sputum Culture and Gram Stain Routine Lab 01/17/23 21:35 Uncollected Urine Culture Stat Lab 01/13/23 20:17 Ordered Vancomycin Trough Timed Lab 01/19/23 09:00 Ordered Labs from last 24 hours 01/18/23 01/18/23 01/18/23 11:15 08:40 06:20 POC Glucose 349 H 229 H Nasal Influ A H1 2009 PCR Adenovirus (PCR) C. pneumoniae DNA (PCR) Coronavirus 229E (PCR) Human Metapneumovir PCR Influenza A (H1) PCR Influenza A (H3) PCR Influenza Type A (PCR) Influenza Type B (PCR) M. pneumoniae (PCR) Parainfluenza 1 (PCR) Parainfluenza 2 (PCR) Parainfluenza 3 (PCR) Parainfluenza 4 (PCR) RSV Type A (PCR) RSV Type B (PCR) Entero/Rhino (PCR) SARS-CoV-2 (PCR) Beta-(1,3)-D-Glucan Pending B-(1,3)-D-Glucan Intrp Pending 01/18/23 01/17/23 01/17/23 00:00 21:10 21:04 POC Glucose 215 H 231 H Nasal Influ A H1 2008 PCR Not detected Adenovirus (PCR) Not detected C. pneumoniae DNA (PCR) Not detected Coronavirus 229E (PCR) Not detected Human Metapneumovir PCR Not detected Influenza A (H1) PCR Not detected Influenza A (H3) PCR Not detected Influenza Type A (PCR) Not detected Influenza Type B (PCR) Not detected M. pneumoniae (PCR) Not detected Parainfluenza 1 (PCR) Not detected Parainfluenza 2 (PCR) Not detected Parainfluenza 3 (PCR) Not detected Parainfluenza 4 (PCR) Not detected RSV Type A (PCR) Not detected RSV Type B (PCR) Not detected Entero/Rhino (PCR) Not detected SARS-CoV-2 (PCR) Not detected Beta-(1,3)-D-Glucan B-(1,3)-D-Glucan Intrp 01/17/23 01/17/23 18:51 17:00 POC Glucose 209 H 155 H Nasal Influ A H1 2008 PCR Adenovirus (PCR) C. pneumoniae DNA (PCR) Coronavirus 229E (PCR) Human Metapneumovir PCR Influenza A (H1) PCR Influenza A (H3) PCR Influenza Type A (PCR) Influenza Type B (PCR) M. pneumoniae (PCR) Parainfluenza 1 (PCR) Parainfluenza 2 (PCR) Parainfluenza 3 (PCR) Parainfluenza 4 (PCR) RSV Type A (PCR) RSV Type B (PCR) Entero/Rhino (PCR) SARS-CoV-2 (PCR) Beta-(1,3)-D-Glucan B-(1,3)-D-Glucan Intrp Completed Studies During Hospitalization Category Date Time Status CTA PE [CT angio chest PE protcl [id number]] Routine Cat Scan 01/17/23 15:39 Completed XR ankle RT 2V [id number] Routine Exams 01/15/23 Completed XR ankle RT min 3V* [id number] Routine Exams 01/16/23 06:40 Completed XR ankle RT min 3V* [id number] Stat Exams 01/13/23 17:54 Completed XR chest 1V 40000 Routine Exams 01/13/23 19:09 [place] [id number] Routine Ultrasound 01/17/23 15:39 Completed Laboratory Last Values WBC 7.9 10^3/uL (4.0-10.0) 01/17/23 05:45 RBC 3.35 10^6/uL (4.1-5.3) L 01/17/23 05:45 Hgb 8.7 g/dL (11.5-15.3) L 01/17/23 05:45 Hct 28.7 % (37.0-47.0) L 01/17/23 05:45 MCV 85.7 fl (81-99) 01/17/23 05:45 MCH 26.0 pg (28.0-34.0) L 01/17/23 05:45 MCHC 30.3 g/dL (30.0-36.0) 01/17/23 05:45 RDW 16.4 % (12.1-15.1) H 01/17/23 05:45 Plt Count 151 10^3/cmm (130-400) 01/17/23 05:45 MPV 10.4 fL (7.4-10.4) 01/17/23 05:45 Neut % (Auto) 67.0 % 01/17/23 05:45 Lymph % (Auto) 20.7 % 01/17/23 05:45 Yates % (Auto) 6.0 % 01/17/23 05:45 Eos % (Auto) 5.1 % 01/17/23 05:45 Baso % (Auto) 0.6 % 01/17/23 05:45 Neut # (Auto) 5.26 10^3/uL (1.8-7.7) 01/17/23 05:45 Lymph # (Auto) 1.6 10^3/uL (0.8-4.8) 01/17/23 05:45 Yates # (Auto) 0.5 10^3/uL (0.2-0.9) 01/17/23 05:45 Eos # (Auto) 0.4 10^3/uL (0.0-0.8) 01/17/23 05:45 Baso # (Auto) 0.1 10^3/uL (0.0-0.1) 01/17/23 05:45 Nucleated RBC % (auto) 0 % 01/17/23 05:45 Nucleated RBCs # 0.0 /100WBC 01/17/23 05:45 PT 14.00 SECONDS (12.1-14.9) 01/14/23 03:37 INR 1.05 (0.8-1.2) 01/14/23 03:37 D-Dimer 3.06 ug/mIFEU (0-0.59) H 01/17/23 05:45 Sodium 132 mmol/L (136-145) L 01/17/23 05:45 Potassium 4.4 mmol/L (3.5-5.1) 01/17/23 05:45 Chloride 102 mmol/L (98-107) 01/17/23 05:45 Carbon Dioxide 22 mmol/L (22-29) 01/17/23 05:45 Anion Gap 12.4 (5-19) 01/17/23 05:45 BUN 15 mg/dL (6-20) 01/17/23 05:45 Creatinine 0.6 mg/dL (0.5-0.9) 01/17/23 05:45 GFR Calculation 104.2 mL/min (90-130) 01/17/23 05:45 Glucose 217 mg/dL (65-115) H 01/17/23 05:45 POC Glucose 349 mg/dL (70-110) H 01/18/23 11:15 Calculated Osmolality 281 mOsm/kg (285-295) L 01/17/23 05:45 Lactic Acid 2.7 mmol/L (0.5-2.2) H 01/14/23 03:37 Lactic Acid (Sepsis) 1.6 mmol/L (0.5-2.2) 01/14/23 07:33 Calcium 8.3 mg/dL (8.5-10.5) L 01/17/23 05:45 Magnesium 1.9 mg/dL (1.7-2.3) 01/14/23 03:37 Total Bilirubin 0.6 mg/dL (0.15-1.2) 01/17/23 05:45 AST 18 U/L (0-32) 01/17/23 05:45 ALT 12 U/L (0-33) 01/17/23 05:45 Alkaline Phosphatase 151 U/L (35-105) H 01/17/23 05:45 Total Protein 5.5 g/dL (6.6-8.7) L 01/17/23 05:45 Albumin 2.4 g/dL (3.5-5.2) L 01/17/23 05:45 Globulin 3.1 g/dL (1.3-4.6) 01/17/23 05:45 Nasal Influ A H1 2008 PCR Not detected (NOT DETECT) 01/18/23 00:00 Adenovirus (PCR) Not detected (NOT DETECT) 01/18/23 00:00 C. pneumoniae DNA (PCR) Not detected (NOT DETECT) 01/18/23 00:00 Coronavirus 229E (PCR) Not detected (NOT DETECT) 01/18/23 00:00 Human Metapneumovir PCR Not detected (NOT DETECT) 01/18/23 00:00 Influenza A (H1) PCR Not detected (NOT DETECT) 01/18/23 00:00 Influenza A (H3) PCR Not detected (NOT DETECT) 01/18/23 00:00 Influenza Type A (PCR) Not detected (NOT DETECT) 01/18/23 00:00 Influenza Type B (PCR) Not detected (NOT DETECT) 01/18/23 00:00 M. pneumoniae (PCR) Not detected (NOT DETECT) 01/18/23 00:00 Parainfluenza 1 (PCR) Not detected (NOT DETECT) 01/18/23 00:00 Parainfluenza 2 (PCR) Not detected (NOT DETECT) 01/18/23 00:00 Parainfluenza 3 (PCR) Not detected (NOT DETECT) 01/18/23 00:00 Parainfluenza 4 (PCR) Not detected (NOT DETECT) 01/18/23 00:00 RSV Type A (PCR) Not detected (NOT DETECT) 01/18/23 00:00 RSV Type B (PCR) Not detected (NOT DETECT) 01/18/23 00:00 Entero/Rhino (PCR) Not detected (NOT DETECT) 01/18/23 00:00 SARS-CoV-2 (PCR) Not detected (NOT DETECT) 01/18/23 00:00 Radiology Impressions Chest X-Ray 01/13/23 19:09 IMPRESSION: No acute findings. Ankle X-Ray 01/16/23 06:40 IMPRESSION: Arthrodesis and fracture fixation right ankle and hindfoot as above. Chest CTA 01/17/23 15:39 IMPRESSION: 1. No pulmonary embolism. 2. Abnormal lung findings and small right pleural effusion most commonly seen in the setting of pulmonary edema. However, appearance is nonspecific and could also be seen in the setting of infection or other less common etiologies such as drug reaction or pulmonary hemorrhage. 3. Atherosclerosis with moderate coronary artery calcification. 4. Stable mild mediastinal and hilar lymphadenopathy. COMMENTS: In the absence of a history or active diagnosis of lung cancer, it is recommended that this patient with emphysema be evaluated for enrollment in a low dose CT lung cancer screening program. Recent Clincial Data Last Vital Signs Temp 98.4 F 01/18/23 11:46 Pulse 72 01/18/23 11:46 Resp 18 01/18/23 11:46 BP 135/56 01/18/23 11:46 Pulse Ox 98 01/18/23 11:46 O2 Del Method Nasal Cannula 01/18/23 11:46 O2 Flow Rate 6 01/18/23 07:35 Vital Signs Temp Pulse Resp BP Pulse Ox O2 Del Method O2 Flow Rate 01/18/23 11:46 98.4 F 72 18 135/56 98 Nasal Cannula 01/18/23 11:18 16 92 01/18/23 10:24 17 01/18/23 07:50 97.8 F 68 16 121/56 92 Simple Mask 01/18/23 07:43 67 01/18/23 07:35 64 18 98 Oxymask 6 01/18/23 04:00 98.2 F 71 16 144/73 95 Room Air 01/18/23 03:55 18 95 Intake & Output/Weight 01/16/23 01/17/23 01/18/23 01/19/23 06:59 06:59 06:59 06:59 Intake Total 1979.1 540 / 540 1500 / 1500 960 / 960 Output Total 3450 / 3450 1950 / 1950 1420 / 1420 Balance -1469.9 / -1469.9 -1410 / -1410 80 / 80 960 / 960 Vitals Last Vital Signs Temp 98.4 F 01/18/23 11:46 Pulse 72 01/18/23 11:46 Resp 18 01/18/23 11:46 BP 135/56 01/18/23 11:46 Pulse Ox 98 01/18/23 11:46 O2 Del Method Nasal Cannula 01/18/23 11:46 O2 Flow Rate 6 01/18/23 07:35 TS Medications Medications Acetaminophen (Acetaminophen 325 Mg Tablet) 650 mg PO Q6H PRN PRN Reason: Mild/Mod Pain Or Temp >/= 101 Albuterol/Ipratropium (Ipratropium-Albuterol 3 Ml Neb) 3 ml INHALATION Q6H.RESP PRN PRN Reason: SHORTNESS OF BREATH Last Admin: 01/18/23 07:32 Dose: 3 ml Alprazolam (Alprazolam 0.5 Mg Tablet) 0.25 mg PO DAILY PRN PRN Reason: anxiety Apixaban (Apixaban 5 Mg Tablet) 5 mg PO BID [facility] Last Admin: 01/18/23 08:39 Dose: 5 mg Aspirin (Aspirin 81 Mg Ec Tablet) 81 mg PO DAILY@0800 [facility] Last Admin: 01/18/23 08:39 Dose: 81 mg Atorvastatin Calcium (Atorvastatin 40 Mg Tablet) 40 mg PO BEDTIME [facility] Last Admin: 01/17/23 20:26 Dose: 40 mg Budesonide (Budesonide 0.5 Mg/2 Ml Neb) 0.5 mg INHALATION BID.RESPIRATORY [facility] Last Admin: 01/18/23 07:32 Dose: 0.5 mg Dextrose (Dextrose 50% Syringe 50 Ml) 50 ml IVP PRN PRN; Protocol PRN Reason: hypoglycemia protocol Dextrose (Dextrose 50% Syringe 50 Ml) 25 ml IVP ONCE PRN; Protocol PRN Reason: hypoglycemia protocol Gabapentin (Gabapentin 300 Mg Capsule) 600 mg PO TID [facility] Last Admin: 01/18/23 08:39 Dose: 600 mg Glucagon (Glucagon 1 Mg/Ml Inj 1 Ml) 1 mg IM ONCE PRN; Protocol PRN Reason: Adult Acute Hypoglycemia Prot. Guaifenesin (Guaifenesin 600 Mg Tablet) 600 mg PO BID [facility] Hydromorphone HCl (Hydromorphone 1 Mg/Ml Inj 1 Ml) 0.4 mg IVP Q4H PRN PRN Reason: SEVERE PAIN Last Admin: 01/18/23 11:18 Dose: 0.4 mg Dextrose (D5w) 500 mls @ 100 mls/hr IV ONCE PRN; Protocol PRN Reason: Adult Acute Hypoglycemia Prot Cefepime HCl 2,000 mg/ Sodium (Chloride) 50 mls @ 100 mls/hr IV Q12H [facility]; Protocol Last Admin: 01/18/23 09:22 Dose: 100 mls/hr Vancomycin/PEG/NADA/Lysine/Water (Vancocin) 1,250 mg in 250 mls @ 250 mls/hr IV Q12H [facility] Last Admin: 01/18/23 10:07 Dose: 250 mls/hr Insulin Glargine (Insulin Glargine 100 Units/1 Ml) 45 unit SUBCUT BEDTIME [facility] Last Admin: 01/17/23 21:47 Dose: 45 unit Insulin Human Lispro (Insulin Lispro 100 Unit/1 Ml) 0 unit SUBCUT WM&BEDTIME [facility]; Protocol Last Admin: 01/18/23 11:57 Dose: 12 unit Isosorbide Mononitrate (Isosorbide Mononitrate Er 30 Mg Tablet) 30 mg PO BID [facility] Last Admin: 01/18/23 08:39 Dose: 30 mg Ketorolac Tromethamine (Ketorolac 30 Mg/Ml Inj) 15 mg IVP Q6H PRN PRN Reason: MODERATE PAIN Stop: 01/19/23 04:11 Last Admin: 01/16/23 22:50 Dose: 15 mg Levofloxacin (Levofloxacin 750 Mg Tablet) 750 mg PO DAILY@0600 [facility]; Protocol Lidocaine (Lidocaine 5% Patch) 1 patch TOPICAL [id number] [facility] Metoprolol Tartrate (Metoprolol Tartrate 25 Mg Tablet) 25 mg PO BID [facility] Last Admin: 01/18/23 08:39 Dose: 25 mg Naloxone HCl (Naloxone 0.4 Mg/Ml Sdv) 0.4 mg IVP PRN PRN PRN Reason: RESPIRATORY RATE < 8/MIN Nicotine (Nicotine 14 Mg Patch) 1 patch TRANSDERMA DAILY [facility] Last Admin: 01/18/23 08:40 Dose: 1 patch Ondansetron HCl (Ondansetron 2 Mg/Ml Sdv 2 Ml) 4 mg IVP Q8H PRN PRN Reason: vomiting, or N/V if npo Oxycodone/Acetaminophen (Oxycodone-Apap 10-325 Mg Tablet) 1 tab PO Q6H PRN PRN Reason: MODERATE PAIN Last Admin: 01/18/23 10:24 Dose: 1 tab Pantoprazole Sodium (Pantoprazole Dr 40 Mg Tablet) 40 mg PO DAILY [facility] Last Admin: 01/18/23 08:39 Dose: 40 mg Ropinirole HCl (Ropinirole 2 Mg Tablet) 3 mg PO BEDTIME [facility] Last Admin: 01/17/23 20:35 Dose: 3 mg Senna/Docusate Sodium (Sennosides-Docusate Tablet) 2 tab PO DAILY PRN PRN Reason: Constipation Sertraline HCl (Sertraline 100 Mg Tablet) 100 mg PO DAILY [facility] Last Admin: 01/18/23 08:39 Dose: 100 mg Discontinued Medications Albuterol Sulfate (Albuterol 2.5 Mg/3 Ml Neb) 2.5 mg INHALATION ONCE PRN PRN Reason: WHEEZING Benzocaine (Cetylpyridinium Lozenge) 1 each MUCOUS MEM ONCE PRN PRN Reason: SORE THROAT Diphenhydramine HCl (Diphenhydramine 50 Mg/Ml Sdv 1ml) 12.5 mg IVP ONCE PRN PRN Reason: PONV Diphenhydramine HCl (Diphenhydramine 50 Mg/Ml Sdv 1ml) 12.5 mg IVP ONCE PRN PRN Reason: Postop N/V Famotidine (Famotidine 20 Mg/2 Ml Inj) 20 mg IVP ONCE PRN PRN Reason: HEARTBURN Fentanyl (Fentanyl 50 Mcg/Ml Inj 2ml) 50 mcg IVP ONCE ONE Stop: 01/13/23 18:58 Last Admin: 01/13/23 19:13 Dose: 50 mcg Fentanyl (Fentanyl 50 Mcg/Ml Inj 2ml) 50 mcg IVP ONCE PRN PRN Reason: Preop Pain Fentanyl (Fentanyl 50 Mcg/Ml Inj 2ml) 50 mcg IVP Q5M PRN PRN Reason: Pain level 1-5 PACU Phase I Stop: 01/16/23 08:20 Fentanyl (Fentanyl 50 Mcg/Ml Inj 2ml) 100 mcg IVP ONCE PRN PRN Reason: Pain level 1-5 PACU Phase I Stop: 01/16/23 08:20 Furosemide (Furosemide 10 Mg/Ml Sdv 2ml) 20 mg IVP ONCE ONE Stop: 01/17/23 21:36 Last Admin: 01/17/23 21:55 Dose: 20 mg Furosemide (Furosemide 10 Mg/Ml Sdv 2ml) 20 mg IVP ONCE ONE Stop: 01/18/23 11:05 Last Admin: 01/18/23 11:57 Dose: 20 mg Heparin Sodium (Porcine) (Heparin 5,000 Unit/Ml Inj 1 Ml) 5,000 unit SUBCUT Q12H [facility] Heparin Sodium (Porcine) (Heparin 5,000 Unit/Ml Inj 1 Ml) 5,000 unit SUBCUT ONCE ONE Stop: 01/13/23 19:12 Last Admin: 01/13/23 20:15 Dose: 5,000 unit Heparin Sodium (Porcine) (Heparin 5,000 Unit/Ml Inj 1 Ml) 5,000 unit SUBCUT Q12H [facility] Stop: 01/15/23 01:31 Last Admin: 01/15/23 02:02 Dose: Not Given Hydromorphone HCl (Hydromorphone 1 Mg/Ml Inj 1 Ml) 0.5 mg IVP Q4H PRN PRN Reason: SEVERE PAIN Hydromorphone HCl (Hydromorphone 1 Mg/Ml Inj 1 Ml) 1 mg IVP Q4H PRN PRN Reason: SEVERE PAIN Last Admin: 01/16/23 13:31 Dose: 1 mg Hydromorphone HCl (Hydromorphone 1 Mg/Ml Inj 1 Ml) 0.5 mg IVP ONCE PRN PRN Reason: Phase II postop pain Hydromorphone HCl (Hydromorphone 1 Mg/Ml Inj 1 Ml) 0.5 mg IVP Q10M PRN PRN Reason: Pain level 6-10 PACU Phase I Stop: 01/16/23 08:20 Hydromorphone HCl (Hydromorphone 1 Mg/Ml Inj 1 Ml) 0.5 mg IVP ONCE PRN PRN Reason: For preop pain/anxiety Sodium Chloride (Sodium Chloride 0.9%) 1,000 mls @ 75 mls/hr IV .[id number] [facility] Last Infusion: 01/14/23 22:07 Dose: Infused Ampicillin Sodium/Sulbactam (Sodium 1.5 gm/ Sodium Chloride) 50 mls @ 150 mls/hr IV ONCE ONE Stop: 01/13/23 19:28 Last Infusion: 01/13/23 21:37 Dose: Infused Sodium Chloride (Sodium Chloride 0.9%) 1,000 mls @ 999 mls/hr IV .Q1H1M ONE Stop: 01/13/23 21:10 Last Infusion: 01/13/23 23:08 Dose: Infused Ampicillin Sodium/Sulbactam (Sodium 3 gm/ Sodium Chloride) 50 mls @ 100 mls/hr IV Q6H [facility]; Protocol Last Infusion: 01/14/23 02:19 Dose: Infused Vancomycin HCl / Sodium (Chloride) 250 mls @ 0 mls/hr [id number] PROTOCOL [facility]; Protocol Cefepime HCl 1,000 mg/ Sodium (Chloride) 50 mls @ 100 mls/hr IV Q12H [facility]; Protocol Last Infusion: 01/16/23 14:18 Dose: Infused Vancomycin/PEG/NADA/Lysine/Water (Vancocin) 1,250 mg in 250 mls @ 250 mls/hr IV Q18H [facility] Last Infusion: 01/16/23 10:10 Dose: Infused Sodium Chloride (Sodium Chloride 0.9%) 1,000 mls @ 100 mls/hr IV .Q10H [facility] Stop: 01/16/23 08:29 Last Admin: 01/15/23 13:46 Dose: Not Given Sodium Chloride (Sodium Chloride 0.9%) 1,000 mls @ 30 mls/hr IV .Q24H [facility] Stop: 01/16/23 08:29 Last Infusion: 01/15/23 12:37 Dose: Infused Insulin Human Regular 10 unit/ (N/A) 0.1 mls @ 0 mls/hr IVP ONCE ONE Stop: 01/15/23 09:29 Last Infusion: 01/15/23 14:09 Dose: Infused Vancomycin HCl / Sodium (Chloride) 250 mls @ 0 mls/hr [id number] PROTOCOL [facility]; Protocol Insulin Glargine (Insulin Glargine 100 Units/1 Ml) 40 unit SUBCUT BEDTIME [facility] Last Admin: 01/15/23 22:13 Dose: 40 unit Insulin Human Lispro (Insulin Lispro 100 Unit/1 Ml) 15 unit SUBCUT NOW ONE Stop: 01/16/23 02:03 Last Admin: 01/16/23 02:23 Dose: 15 unit Insulin Human Regular (Insulin Regular-Human 100 Units/1 Ml) Confirm Administered Dose 10 unit .ROUTE .STK-MED ONE Stop: 01/15/23 09:33 Insulin Human Regular (Insulin Regular-Human 100 Units/1 Ml) 10 unit IVP ONCE ONE Stop: 01/15/23 11:59 Last Admin: 01/15/23 12:01 Dose: 10 unit Insulin Human Regular (Insulin Regular-Human 100 Units/1 Ml) Confirm Admi nistered Dose 10 unit .ROUTE .STK-MED ONE Stop: 01/15/23 11:58 Last Admin: 01/15/23 13:45 Dose: Not Given Iohexol (Iohexol 350 Mg/Ml 500 Ml Btl (Per Ml)) 0 ml IV ONCE ONE Stop: 01/17/23 18:40 Last Admin: 01/17/23 18:39 Dose: 100 ml Ipratropium [place] (Ipratropium 0.5 Mg/2.5 Ml Neb) 0.5 mg INHALATION ONCE PRN PRN Reason: WHEEZING Meperidine HCl (Meperidine 50 Mg/Ml Inj) 12.5 mg IVP ONCE PRN PRN Reason: Shivering PACU Phase I Midazolam HCl (Midazolam 1 Mg/Ml Inj 2 Ml) 2 mg IVP ONCE PRN PRN Reason: Preop Anxiety Morphine Sulfate (Morphine 4 Mg/Ml Sdv 1 Ml) 2 mg IVP Q4H PRN PRN Reason: SEVERE PAIN Last Admin: 01/14/23 12:09 Dose: 2 mg Ondansetron HCl (Ondansetron 2 Mg/Ml Sdv 2 Ml) 4 mg IVP ONCE PRN PRN Reason: NAUSEA AND VOMITING Ondansetron HCl (Ondansetron 2 Mg/Ml Sdv 2 Ml) 4 mg IVP ONCE PRN PRN Reason: Nausea PACU Phase I Ondansetron HCl (Ondansetron 2 Mg/Ml Sdv 2 Ml) 4 mg IVP ONCE PRN PRN Reason: Nausea/Vomiting PACU PHASE II Oxycodone HCl (Oxycodone 5 Mg Ir Tab/Cap) 15 mg PO BID PRN PRN Reason: PAIN Last Admin: 01/16/23 10:29 Dose: 15 mg Pantoprazole Sodium (Pantoprazole Dr 40 Mg Tablet) 40 mg PO ONCE ONE Stop: 01/14/23 17:01 Last Admin: 01/14/23 18:09 Dose: 40 mg Polyethylene Glycol (Polyethylene Glycol 3350 Pkt 17 Gm) 17 gm PO DAILY [facility] Last Admin: 01/17/23 08:40 Dose: Not Given Scopolamine (Scopolamine 1.5 Patch) 1 patch TRANSDERMA ONCE PRN PRN Reason: Nausea/ Vomiting Prophylaxis Senna/Docusate Sodium (Sennosides-Docusate Tablet) 2 tab PO ONCE PRN PRN Reason: constipation Senna/Docusate Sodium (Sennosides-Docusate Tablet) 2 tab PO BID [facility] Last Admin: 01/17/23 08:28 Dose: 2 tab Allergies bee venom protein (honey bee) Allergy (Verified 01/13/23 17:34) ALGY-Anaphylaxis Home Medications rosuvastatin 20 mg tablet (Crestor) 20 mg PO DAILY 09/04/19 [History Confirmed 01/14/23] omeprazole 40 mg capsule,delayed release 40 mg PO DAILY 09/05/19 [History Confirmed 01/14/23] nitroglycerin 0.4 mg sublingual tablet (Nitrostat) 0.4 mg sublingual Q5M PRN chest pain 30 days #25 tabs 09/09/19 [Rx Confirmed 01/14/23] epinephrine 0.3 mg/0.3 mL injection, auto-injector (EpiPen 2-[place]) See Rx Instructions .Route .COMPLEX PRN Allergic Reaction 11/01/19 [History Confirmed 01/14/23] glucagon HCl 1 mg solution for injection (Glucagon (HCl) Emergency Kit) 1 mg SUBCUT Q20M PRN blood sugar ##0 11/01/19 [History Confirmed 01/14/23] insulin aspart U-100 100 unit/mL (3 mL) subcutaneous pen (Novolog FlexPen U-100 Insulin aspart) See Rx Instructions .Route .COMPLEX 11/01/19 [History Confirmed 01/14/23] albuterol sulfate 2.5 mg/3 mL (0.083 %) solution for nebulization 2.5 mg inhalation Q6H PRN Shortness Of Breath 04/01/20 [History Confirmed 01/14/23] nicotine 14 mg/24 hr daily transdermal patch 1 patch transdermal DAILY #28 ea 01/04/21 [Rx Confirmed 01/14/23] aspirin 81 mg tablet,delayed release 81 mg PO DAILY@0800 08/15/20 [History Confirmed 01/14/23] melatonin 3 mg capsule 3 mg PO DAILY 09/04/20 [History Confirmed 01/14/23] apixaban 5 mg tablet (Eliquis) 5 mg PO BID 11/24/20 [History Confirmed 01/14/23] metoprolol tartrate 25 mg tablet 25 mg PO BID #180 tabs 12/10/20 [Rx Confirmed 01/14/23] tamsulosin 0.4 mg capsule (Flomax) 0.4 mg PO DAILY 05/22/21 [History Confirmed 01/14/23] oxycodone 15 mg tablet 15 mg PO BID PRN pain 30 days #60 tabs 08/04/21 [Rx Confirmed 01/14/23] diclofenac sodium 1 % topical gel (Voltaren Arthritis Pain) 4 g topical QID #100 grams 09/30/21 [Rx Confirmed 01/14/23] prednisone 5 mg tablet 5 mg PO DAILY PRN FLARES #60 tabs 02/14/22 [Rx Confirmed 01/14/23] enalapril maleate 10 mg tablet 5 mg PO DAILY 03/02/22 [History Confirmed 01/14/23] albuterol sulfate 90 mcg/actuation aerosol inhaler (Ventolin HFA) 2 puff inhalation Q6H PRN shortness of breath or wheezing #8.5 grams 05/20/22 [Rx Confirmed 01/14/23] insulin glargine 100 unit/mL subcutaneous solution (Lantus U-100 Insulin) 50 unit SUBCUT DAILY@0800 06/08/22 [History Confirmed 01/14/23] ropinirole 2 mg tablet 3 mg PO BEDTIME 06/08/22 [History Confirmed 01/14/23] abatacept 125 mg/mL subcutaneous syringe (Orencia) 125 mg SUBCUT .qweek #4 mL 07/29/22 [Rx Confirmed 01/14/23] alprazolam 0.25 mg tablet 0.25 mg PO DAILY PRN anxiety 09/16/22 [History Confirmed 01/14/23] betamethasone dipropionate 0.05 % topical ointment 1 applic topical BID #45 grams 10/12/22 [Rx Confirmed 01/14/23] fluocinonide 0.05 % topical ointment 1 applic topical BID #60 grams 10/12/22 [Rx Confirmed 01/14/23] ipratropium 20 mcg-albuterol 100 mcg/actuation mist for inhalation (Combivent Respimat) 1 puff inhalation Q6H PRN Shortness Of Breath #4 grams 10/17/22 [Rx Confirmed 01/14/23] gabapentin 300 mg capsule 600 mg PO TID 30 days #180 caps 11/10/22 [Rx Confirmed 01/14/23] Knee Walker #1 ea 11/11/22 [Rx Confirmed 01/14/23] isosorbide mononitrate 30 mg tablet,extended release 24 hr 30 mg PO BID 01/12/23 [History Confirmed 01/14/23] sertraline 100 mg tablet (Zoloft) 100 mg PO DAILY 01/12/23 [History Confirmed 01/14/23] oxycodone 15 mg tablet 15 mg PO Q6H PRN pain 7 days #28 tabs 01/13/23 [Rx Confirmed 01/14/23] levofloxacin 750 mg tablet 750 mg PO DAILY@0600 #5 tabs 01/18/23 [Rx] oxycodone-acetaminophen 10 mg-325 mg tablet 1 tab PO Q6H PRN Moderate Pain #10 tabs 01/18/23 [Rx] Discharge Plan Discharge Patient Disposition: Xfer Short-Term Hosp Condition: Stable Prescriptions: New oxycodone-acetaminophen 10-325 mg Tablet 1 tab PO Q6H PRN (Reason: Moderate Pain) Qty: 10 0RF levofloxacin 750 mg Tablet 750 mg PO DAILY@0600 Qty: 5 0RF Continued omeprazole 40 mg capsule,delayed release(DR/EC) 40 mg PO DAILY melatonin 3 mg capsule 3 mg PO DAILY metoprolol tartrate 25 mg tablet 25 mg PO BID Qty: 180 3RF Eliquis 5 mg tablet 5 mg PO BID oxycodone 15 mg tablet 15 mg PO BID PRN (Reason: pain) 30 Days Qty: 60 0RF Rx Instructions: fill on or after 09/17/21 diclofenac sodium [Voltaren Arthritis Pain] 1 % gel 4 g topical QID Qty: 100 2RF Rx Instructions: apply to single knee, ankle, foot; for foot includes sole/toes/top of foot rosuvastatin [Crestor] 20 mg tablet 20 mg PO DAILY Lantus U-100 Insulin 100 unit/mL solution 50 unit SUBCUT DAILY@0800 ropinirole 2 mg tablet 3 mg PO BEDTIME tamsulosin [Flomax] 0.4 mg capsule 0.4 mg PO DAILY alprazolam 0.25 mg tablet 0.25 mg PO DAILY PRN (Reason: anxiety) gabapentin 300 mg capsule 600 mg PO TID 30 Days Qty: 180 1RF enalapril maleate 10 mg tablet 5 mg PO DAILY nitroglycerin [Nitrostat] 0.4 mg tablet, sublingual 0.4 mg SUBLINGUAL Q5M PRN (Reason: chest pain) 30 Days Qty: 25 6RF Rx Instructions: until response; do not exceed 3 doses per episode nicotine 14 mg/24 hr patch 24 hour 1 patch transdermal DAILY Qty: 28 0RF Rx Instructions: use one per 24 hours prednisone 5 mg tablet 5 mg PO DAILY PRN (Reason: FLARES) Qty: 60 2RF albuterol sulfate [Ventolin HFA] 90 mcg/actuation HFA aerosol inhaler 2 puff inhalation Q6H PRN (Reason: shortness of breath or wheezing) Qty: 8.5 3RF Orencia 125 mg/mL syringe 125 mg SUBCUT .qweek Qty: 4 5RF betamethasone dipropionate 0.05 % ointment 1 applic topical BID Qty: 45 3RF Rx Instructions: Apply to affected area no more than two weeks per month. Not for face or skin folds. fluocinonide 0.05 % ointment 1 applic topical BID Qty: 60 2RF Rx Instructions: Apply to affected area twice daily no more than 2wks per month. Not for face or folds Combivent Respimat 20-100 mcg/actuation mist 1 puff INHALATION Q6H PRN (Reason: Shortness Of Breath) Qty: 4 5RF (DME) Knee Walker See Rx Instructions .Route .MEDSUPPLY Qty: 1 0RF Rx Instructions: As directed HOME- Patient has been instructed to be non-weight bearing to the Right Lower Extremity. epinephrine [EpiPen 2-[place]] 0.3 mg/0.3 mL Auto-Injector See Rx Instructions .ROUTE .COMPLEX PRN (Reason: Allergic Reaction) Rx Instructions: DIRECTED PRN insulin aspart U-100 [Novolog FlexPen U-100 Insulin] 100 unit/mL (3 mL) insulin pen See Rx Instructions .ROUTE .COMPLEX Rx Instructions: PER SLIDING SCALE glucagon HCl [Glucagon (HCl) Emergency Kit] 1 mg Recon Soln 1 mg SUBCUT Q20M PRN (Reason: blood sugar) Qty: 0 albuterol sulfate 2.5 mg /3 mL (0.083 %) Solution For Nebulization 2.5 mg INHALATION Q6H PRN (Reason: Shortness Of Breath) aspirin 81 mg Tablet,Delayed Release (Dr/Ec) 81 mg PO DAILY@0800 sertraline [Zoloft] 100 mg tablet 100 mg PO DAILY isosorbide mononitrate 30 mg tablet extended release 24 hr 30 mg PO BID oxycodone 15 mg tablet 15 mg PO Q6H PRN (Reason: pain) 7 Days Qty: 28 0RF Discharge Orders: Discharge Order (Routine); Ordered 01/18/23 Ordered By: Tiffany Wahl Transfer Out of Facility (Order); Ordered 01/18/23 Ordered By: Tiffany Wahl Referrals: Nel Peacock MD [Primary Care Provider] - Patient Instructions: Oxycodone/Acetaminophen (By mouth), Levofloxacin (By mouth), Fall Prevention (DC), ORIF (DC), Opioid Safety Transfer Attestations Time Spent in Transfer Care: greater than 30 min Status at Transfer: Cognitive status at transfer: cognitively intact ; Behavioral status at transfer: cooperative ; Quality Metrics Clinical Quality Measures [ No reported AMI, CVA or VTE this stay] Coding Level of Care Code Acute Code for g Fwd Diagnoses Hypoxia R09.02 Closed fracture of right distal fibula S82.831A Fall at home W19.XXXD; Y92.009 Encounter type: subsequent encounter Closed fracture of right distal tibia S82.301A Closed right ankle fracture S82.891A Encounter type: initial encounter S/P foot surgery Z98.890 Right ankle pain M25.571 Chronicity: acute Psoriasis L40.9 Rheumatoid arthritis M06.9 Rheumatoid arthritis location: multiple sites Rheumatoid factor presence: unspecified presence Chronic anticoagulation Z79.01 Portal vein thrombosis I81
[2023-01-18 16:47] LABS: Glucose Point of Care 259 mg/dL (70-110)
--- NOTE | 2023-01-18 16:57 | PC.OT ---
PT REFUSES THERAPY ON THIS DATE D/T VISITORS PRESENT. WILL ATTEMPT AGAIN TOMORROW.
[2023-01-18] MEDS: guaiFENesin 600 mg Tablet PO (17:58)
[2023-01-21 17:54] LABS: Fungitell 1-3-B Glucan Assay 31 pg/mL; Interpretation NEGATIVE
== END 2023-01-18 19:20 | DRG 493 ==
LOC: ER 19:38 → MEDSURG 19:51
PROVIDERS: Internal Medicine; Podiatrist Foot & Ankle Surgery; Student in an Organized Health Care Education/Training Program; Admitting Provider Internal Medicine; Emergency Provider Emergency Medicine; PCP Internal Medicine; Visit Provider Internal Medicine
PROC: 0QSG06Z Reposition Right Tibia with Intramedullary Internal Fixation Device, Open Approach (ICD-10-PCS; principal; 2023-01-15 09:15)
PROC: 0QSG06Z Reposition Right Tibia with Intramedullary Internal Fixation Device, Open Approach (ICD-10-PCS; 2023-01-15 09:15)
DX: S82.231A Displaced oblique fracture of shaft of right tibia, initial encounter for closed fracture (principal); D84.821 Immunodeficiency due to drugs; M87.871 Other osteonecrosis, right ankle; I50.30 Unspecified diastolic (congestive) heart failure; S82.831A Other fracture of upper and lower end of right fibula, initial encounter for closed fracture; W01.0XXA Fall on same level from slipping, tripping and stumbling without subsequent striking against object, initial encounter; E11.40 Type 2 diabetes mellitus with diabetic neuropathy, unspecified; E11.610 Type 2 diabetes mellitus with diabetic neuropathic arthropathy; E11.65 Type 2 diabetes mellitus with hyperglycemia; J43.9 Emphysema, unspecified; I11.0 Hypertensive heart disease with heart failure; Z79.60 Long term (current) use of unspecified immunomodulators and immunosuppressants; Z98.1 Arthrodesis status; K59.03 Drug induced constipation; T40.2X5A Adverse effect of other opioids, initial encounter; Z86.718 Personal history of other venous thrombosis and embolism; Z79.4 Long term (current) use of insulin; Z79.51 Long term (current) use of inhaled steroids; Z79.82 Long term (current) use of aspirin; Z79.891 Long term (current) use of opiate analgesic; Z79.01 Long term (current) use of anticoagulants; Z86.16 Personal history of COVID-19; M81.0 Age-related osteoporosis without current pathological fracture; M06.9 Rheumatoid arthritis, unspecified; M10.071 Idiopathic gout, right ankle and foot; F17.210 Nicotine dependence, cigarettes, uncomplicated; M47.816 Spondylosis without myelopathy or radiculopathy, lumbar region; I27.20 Pulmonary hypertension, unspecified; Z75.1 Person awaiting admission to adequate facility elsewhere
CPT/HCPCS: 36415; 36416; 51702; 71045; 71275; 73600; 73610; 76000; 80048; 80053; 82962; 83605; 83735; 85025; 85378; 85610; 87040; 87449; 87486; 87493; 87581; 87633; 87641; 93005; 93970; 94640; 94762; 96365; 96372; 97110; 97161; 97166; 97530; 97535; 99285; C1713; J0295; J0692; J1170; J1644; J1815; J1885; J1940; J2270; J3010; J3370; J7030; J7626; Q9967

== ENCOUNTER → 2023-02-07 08:29 | Outpatient (BNVA) | payer MEDICAID, SELFPAY | PROVIDERS: PCP Internal Medicine; Visit Provider Podiatrist Foot & Ankle Surgery | DX: Z98.890 Other specified postprocedural states (principal) | CPT/HCPCS: 29405; 73610; 99024 ==

== ENCOUNTER → 2023-02-14 11:38 | Outpatient (BNVA) | payer MEDICAID, SELFPAY | PROVIDERS: PCP Internal Medicine; Visit Provider Internal Medicine | DX: M06.9 Rheumatoid arthritis, unspecified (principal); L40.9 Psoriasis, unspecified; T14.8XXA Other injury of unspecified body region, initial encounter; X58.XXXA Exposure to other specified factors, initial encounter | CPT/HCPCS: 99214 ==

== ENCOUNTER → 2023-02-15 15:31 | Outpatient (BNVA) | payer MEDICAID, SELFPAY | PROVIDERS: PCP Internal Medicine; Visit Provider Podiatrist Foot & Ankle Surgery | DX: Z98.890 Other specified postprocedural states (principal); M87.071 Idiopathic aseptic necrosis of right ankle; M14.671 Charcot's joint, right ankle and foot; E11.42 Type 2 diabetes mellitus with diabetic polyneuropathy; Z79.4 Long term (current) use of insulin | CPT/HCPCS: 73610; 99024 ==

== ENCOUNTER 2023-02-22 09:41 | Outpatient (CLI) | payer MEDICAID, SELFPAY ==
--- NOTE | 2023-02-22 10:00 | CT_ITS ---
WS: [id number] LDCT LUNG CANCER SCREENING HISTORY: annual LDCT TECHNIQUE: Axial imaging performed from the apices to 1 cm below the costophrenic angles. Coronal and sagittal reformats are submitted with axial MIP series. All CT scans at [facility] use at least one of these dose optimization techniques: automated exposure control; mA and/or kV adjustment per patient size (includes targeted exams where dose is matched to clinical indication); or iterativ e reconstruction. DLP: 89.09 mGy.cm DIvol: Mean CTDIvol: 2.10 (mGy) COMPARISON: 03/01/2022 Diagnostic quality: Satisfactory Lungs: Marked emphysema. Centrilobular cystic nodules are noted bilaterally. There are numerous cyst associated with emphysema throughout both lungs. Mild hazy attenuation bilaterally. 5 mm nodule is no ncalcified right lower lobe. This was present on the prior study but better visualized today. Heart: Normal size heart with no pericardial effusion.. Extensive coronary artery calcifications. Other findings: Mild enlargement of the pulmonary artery. Mild atherosclerosis aorta. No adenopathy. Splenic granulomata. Prior cholecystectomy. Remote healed rib fractures bilaterally. IMPRESSION: CT/CT lung screening [id number] LUNG-RADS: 2-Benign Appearance or Behavior FOLLOW UP: 12 Month: Continue annual screening with LDCT OTHER FINDINGS (S MODIFIER): None.
== END 2023-02-22 09:42 | disposition home or self-care (01) ==
LOC: RAD 09:43
PROVIDERS: PCP Internal Medicine; Visit Provider Internal Medicine Pulmonary Disease
DX: F17.210 Nicotine dependence, cigarettes, uncomplicated (principal); Z12.2 Encounter for screening for malignant neoplasm of respiratory organs
CPT/HCPCS: 71271

== ENCOUNTER → 2023-03-01 07:01 | Outpatient (BNVA) | payer MEDICAID, SELFPAY | PROVIDERS: PCP Internal Medicine; Visit Provider Podiatrist Foot & Ankle Surgery | DX: Z98.890 Other specified postprocedural states (principal); M14.671 Charcot's joint, right ankle and foot; E11.42 Type 2 diabetes mellitus with diabetic polyneuropathy; M87.88 Other osteonecrosis, other site; T81.31XA Disruption of external operation (surgical) wound, not elsewhere classified, initial encounter; Y83.8 Other surgical procedures as the cause of abnormal reaction of the patient, or of later complication, without mention of misadventure at the time of the procedure; Z79.4 Long term (current) use of insulin | CPT/HCPCS: 73610 ==

== ENCOUNTER 2023-03-01 10:26 | Outpatient (CLI) | payer MEDICAID, SELFPAY | END 2023-03-01 10:27 | disposition home or self-care (01) | LOC: SPT 10:27 | PROVIDERS: PCP Internal Medicine; Visit Provider Podiatrist Foot & Ankle Surgery | DX: Z46.89 Encounter for fitting and adjustment of other specified devices (principal); Z98.890 Other specified postprocedural states; M87.00 Idiopathic aseptic necrosis of unspecified bone; E11.42 Type 2 diabetes mellitus with diabetic polyneuropathy; M14.671 Charcot's joint, right ankle and foot; T81.31XA Disruption of external operation (surgical) wound, not elsewhere classified, initial encounter; Y99.9 Unspecified external cause status; Z79.4 Long term (current) use of insulin | CPT/HCPCS: 99213; L4361 ==

== ENCOUNTER 2023-03-07 04:42 | Inpatient (IN) | payer MEDICAID, SELFPAY ==
[2023-03-07] VITALS (11 sets, daily range): BP systolic 96–125; BP diastolic 50–89; PULSE 72–107; RESP 15–22; TEMP 36.7–39.4; O2SAT 92–100; BMI 29.9
--- NOTE | 2023-03-07 04:51 | W.ED.EXTPRO ---
HPI - Extremity Problem General: Chief complaint: Extremity Problem,Nontraumatic Stated complaint: LEG AND WRIST PAIN Time Seen by Provider: 03/07/23 04:43 Source: patient and EMS Mode of arrival: EMS Limitations: no limitations History of Present Illness: 52-year-old female who had surgery early January on her right ankle for dropfoot she been having a wound has not been healing states she woke up this morning with pain in that foot she also has right wrist pain from chronic arthritis. Patient is febrile here she did not know that she had a fever. Patient states she has had chills and body aches for the last 2 days she is also had a cough. Denies any vomiting or diarrhea. Associated symptoms: Reports fever(s); Deny chest pain or rash Review of Systems Const: Reports: fever(s) and chills ENMT: Denies: throat pain or dental pain Card: Denies: chest pain Resp: Reports: non-productive cough; Denies: dyspnea GI: Denies: abdominal pain, nausea, vomiting or diarrhea Musc: Reports: extremity pain; Denies: neck pain or back pain Skin/Breast: Denies: rash Neuro: Denies: headache(s) PFSH ED PFSH: Medical History Acute gout of right ankle Avulsion fracture of left ankle Cervical spondylosis Chronic anticoagulation Cigarette smoker motivated to quit Claudication Closed fracture of right distal fibula Closed fracture of right distal fibula Closed fracture of right distal tibia Closed right ankle fracture COVID-19 DDD (degenerative disc disease), cervical Diabetes Emphysema/COPD Essential hypertension Fall at home Fibromyalgia Fracture of distal end of tibia with fibula Immunocompromised Long-term current use of opiate analgesic Onychodystrophy Osteoporosis Pain, joint, multiple sites Portal vein thrombosis Psoriasis PVD (peripheral vascular disease) Rheumatoid arthritis Rheumatoid arthritis Seizures Spondylosis of lumbar region without myelopathy or radiculopathy Syncope Thrombocytopenia Tobacco use disorder Transaminitis Surgical History H/O dilation and curettage Hx laparoscopic cholecystectomy Hx of section (~1989) Hx of hysterectomy S/P foot surgery Family History Mother Stroke Cancer SKIN CANCER Sister Stroke Other Diabetes Myocardial infarct Denies family history of Anesthesia complication Bleeding disorder Social History Smoking and tobacco status: current every day smoker cigarettes Years cigarettes smoked: 40 [ Other cigarette details: 3 cigarettes/day currently] Quit status (tobacco): considering quitting Second hand smoke exposure: Yes Smoking risk assessment/counseling performed?: Yes Alcohol intake: former Substance/Drug Use: never Caregiver/support person: Yes Lives independently: Yes Household members: spouse Marital status: Current occupational status: disabled Pets and animals: Yes Do you think of yourself as: Straight/Heterosexual Current gender identity: Female Physical Exam Const: COMMON NORMALS: no acute distress, patient oriented x3 and healthy appearing HENMT: COMMON NORMALS: normocephalic and atraumatic HEAD & SCALP: normocephalic and atraumatic Neck/C-Spine: COMMON NORMALS: full ROM and supple Chest: COMMONS NORMALS: normal inspection of the chest and normal palpation of entire chest wall Resp: COMMON NORMALS: normal respiratory effort, No retractions, No use of accessory muscles and clear to auscultation bilaterally AUSCULTATION: clear to auscultation bilaterally Cardio: COMMON NORMALS: regular rate, regular rhythm and No murmurs present (Cardio) RATE: regular rate RHYTHM: regular rhythm GI: COMMON NORMALS: Normal to inspection, nondistended, normoactive bowel sounds present, Soft to palpation, non-tender and no masses PALPATION: Yes Soft to palpation Extremity: COMMON NORMALS: full ROM NARRATIVE EXTREMITY EXAM: Chronic nickel sized wound to right ankle Neuro: COMMON NORMALS: patient oriented x3, moves all extremities and no focal motor deficits Psych: COMMON NORMALS: mental status grossly normal, Normal thought process present and cooperative THOUGHT PROCESS: Normal thought process present Skin: COMMON NORMALS: no rashes or lesions noted GENERAL SKIN EXAM: no rashes or lesions noted Course Vital Signs: Vital signs: Vital Signs Temperature 103 F H 03/07/23 04:44 Pulse Rate 100 03/07/23 05:25 Respiratory Rate 22 H 03/07/23 05:41 Blood Pressure 111/84 03/07/23 05:25 Pulse Oximetry 97 03/07/23 05:41 Oxygen Delivery Me thod Room Air 03/07/23 05:25 MDM - Extremity (Nontraumatic) Medical Decision Making Patient presents here with ankle pain along with open wound from previous surgery she is also has wrist pain is chronic in nature she is febrile here with a fever 103 with an elevated lactate. Her blood pressures been normal x-ray shows a possible pneumonia. She has had a slight cough as well. Him concern for possible ankle infection as well with her chronic wound although the wound here is not necrotic has minimal drainage at this time we will get a CT of her ankle I spoke to Dr. Sales who done her previous surgery who is consulted also spoke to the hospitalist will admit at this time for her fever. Patient started on IV antibiotics. Medical Records I reviewed the patient's medical records. Lab Data I reviewed the patient's lab results. 03/07/23 04:54 03/07/23 04:54 Radiology Impressions Ankle X-Ray 03/07/23 04:53 IMPRESSION: 1. Healing mildly displaced fractures of the distal tibia and fibula, with fracture lines remaining evident. 2. Soft tissue swelling and calcifications. 3. Osteopenia and degenerative change. Chest X-Ray 03/07/23 04:58 IMPRESSION: Hypoinflation , interstitial prominence, and mild airspace disease, without focal infiltrate. Laboratory Results WBC 11.57 10^3/uL (3.29-11.43) H 03/07/23 04:54 RBC 4.07 10^6/uL (3.85-5.65) 03/07/23 04:54 Hgb 9.50 g/dL (11.27-16.99) L 03/07/23 04:54 Hct 31.6 % (36-47) L 03/07/23 04:54 MCV 77.6 fl (85-98) L 03/07/23 04:54 MCH 23.3 pg (27-33) L 03/07/23 04:54 MCHC 30.1 g/dL (30-55) 03/07/23 04:54 RDW 16.9 % (12.1-15.1) H 03/07/23 04:54 Plt Count 161 10^3/cmm (157-399) 03/07/23 04:54 MPV 10.0 fL (7.4-10.4) 03/07/23 04:54 Neut % (Auto) 84.8 % 03/07/23 04:54 Lymph % (Auto) 8.6 % 03/07/23 04:54 [place] % (Auto) 5.6 % 03/07/23 04:54 Eos % (Auto) 0.4 % 03/07/23 04:54 Baso % (Auto) 0.3 % 03/07/23 04:54 Neut # (Auto) 9.82 10^3/uL (1.8-7.7) H 03/07/23 04:54 Lymph # (Auto) 1.0 10^3/uL (0.8-4.8) 03/07/23 04:54 [place] # (Auto) 0.7 10^3/uL (0.2-0.9) 03/07/23 04:54 Eos # (Auto) 0.1 10^3/uL (0.0-0.8) 03/07/23 04:54 Baso # (Auto) 0.0 10^3/uL (0.0-0.1) 03/07/23 04:54 Nucleated RBC % (auto) 0 % 03/07/23 04:54 Nucleated RBCs # 0.0 /100WBC 03/07/23 04:54 Sodium 132 mmol/L (136-145) L 03/07/23 04:54 Potassium 3.7 mmol/L (3.5-5.1) 03/07/23 04:54 Chloride 100 mmol/L (98-107) 03/07/23 04:54 Carbon Dioxide 22 mmol/L (22-29) 03/07/23 04:54 Anion Gap 13.7 (5-19) 03/07/23 04:54 BUN 20 mg/dL (6-20) 03/07/23 04:54 Creatinine 0.7 mg/dL (0.5-0.9) 03/07/23 04:54 GFR Calculation 87.2 mL/min (90-130) L 03/07/23 04:54 Glucose 169 mg/dL (65-115) H 03/07/23 04:54 Calculated Osmolality 281 mOsm/kg (285-295) L 03/07/23 04:54 Lactic Acid 3.6 mmol/L (0.5-2.2) H 03/07/23 04:54 Calcium 8.3 mg/dL (8.5-10.5) L 03/07/23 04:54 Total Bilirubin 0.5 mg/dL (0.15-1.2) 03/07/23 04:54 AST 35 U/L (0-32) H 03/07/23 04:54 ALT 14 U/L (0-33) 03/07/23 04:54 Alkaline Phosphatase 311 U/L (35-105) H 03/07/23 04:54 C-Reactive Protein 12.8 mg/L (0.0-4.9) H 03/07/23 04:54 Total Protein 6.2 g/dL (6.6-8.7) L 03/07/23 04:54 Albumin 3.0 g/dL (3.5-5.2) L 03/07/23 04:54 Globulin 3.2 g/dL (1.3-4.6) 03/07/23 04:54 SARS-CoV-2 Ag (Rapid) negative (Negative) 03/07/23 05:08 Discharge Plan Discharge Patient Disposition: Admitted As Inpatient Clinical Impression: Pneumonia, Ankle wound Condition: Stable Coding Level of Care Code ED Sales Contract Administrator for Chikis Toro
--- NOTE | 2023-03-07 04:53 | XRR_ITS ---
PROCEDURE INFORMATION: Exam: XR Right Ankle Exam date and time: 03/07/2023 4:57 AM Age: 52 years old Clinical indication: Pain; Right; Prior surgery; Surgery date: 1-6 months; Surgery type: Ankle ortho; Patient HX: Wound to anterior aspect of ankle near incision site TECHNIQUE: Imaging protocol: Radiologic exam of the right ankle. Views: 3 or more views. COMPARISON: CR (LOW EXM, ) 01/13/2023 6:41 PM FINDINGS: Bones/joints: Surgical hardware transfixing distal tibial fracture, along with surgical ankylosis of the hindfoot. Healing mildly displaced fractures of the distal tibia and fibula, with fracture lines remaining evident. Osteopenia and degenerative change. Multiple well corticated ossific densities about the ankle. Soft tissues: Soft tissue swelling and calcifications. Other findings: Interval removal of overlying cast. XR/XR ankle RT min 3V* [id number] IMPRESSION: 1. Healing mildly displaced fractures of the distal tibia and fibula, with fracture lines remaining evident. 2. Soft tissue swelling and calcifications. 3. Osteopenia and degenerative change.
[2023-03-07 04:58] LABS: Basophils % 0.3 %; Eosinophils # 0.1 10^3/uL (0.0-0.8); Eosinophils % 0.4 %; Hematocrit 31.6 % (36-47); Lymphocytes % 8.6 %; Mean Corpuscular HGB Conc 30.1 g/dL (30-55); Mean Corpuscular Hemoglobin 23.3 pg (27-33); Mean Corpuscular Volume 77.6 fl (85-98); Monocytes # 0.7 10^3/uL (0.2-0.9); Monocytes % 5.6 %; Neutrophils # 9.82 10^3/uL (1.8-7.7); Neutrophils % 84.8 %; Nucleated Red Blood Cells % 0 %; Platelet Count 161 10^3/cmm (157-399); Red Blood Count 4.07 10^6/uL (3.85-5.65); Red Cell Distribution Width 16.9 % (12.1-15.1); White Blood Count 11.57 10^3/uL (3.29-11.43)
--- NOTE | 2023-03-07 04:58 | XRR_ITS ---
PROCEDURE INFORMATION: Exam: XR Chest Exam date and time: 03/07/2023 5:02 AM Age: 52 years old Clinical indication: Fever TECHNIQUE: Imaging protocol: Radiologic exam of the chest. Views: 1 view. COMPARISON: CT lung screening [id number] 02/22/2023 10:03 AM FINDINGS: Lungs: Hypoinflation , interstitial prominence, and mild airspace disease, without focal infiltrate. Pleural spaces: Mild blunting of the left costophrenic angle. Heart/Mediastinum: Epicardial fat, without cardiomegaly. Bones/joints: Osteopenia, degenerative change, and old rib fractures. XR/XR chest 1V portable [id number] IMPRESSION: Hypoinflation , interstitial prominence, and mild airspace disease, without focal infiltrate.
[2023-03-07] MEDS: ondansetron 2 mg/ML SDV 2 mL 4 MG IVP (04:59)
[2023-03-07] MEDS: HYDROmorphone 1 mg/mL INJ 1 mL IVP ×2 (05:01→05:41)
[2023-03-07] MEDS: sodium chloride 0.9% 1,000 ML 999 ML IV ×2 (05:02→06:04)
[2023-03-07] MEDS: acetaminophen 500 mg Tablet 1000 MG PO (05:04)
[2023-03-07 05:19] LABS: Alanine Aminotransferase 14 U/L (0-33); Alkaline Phosphatase 311 U/L (35-105); Anion Gap 13.7 (5-19); Aspartate Amino Transferase 35 U/L (0-32); Blood Urea Nitrogen 20 mg/dL (6-20); C Reactive Protein 12.8 mg/L (0.0-4.9); Calcium 8.3 mg/dL (8.5-10.5); Carbon Dioxide 22 mmol/L (22-29); Chloride 100 mmol/L (98-107); Globulin 3.2 g/dL (1.3-4.6); Glomerular Filtration Rate 87.2 mL/min (90-130); Glucose 169 mg/dL (65-115); Osmolality Calculated 281 mOsm/kg (285-295); Potassium 3.7 mmol/L (3.5-5.1); Sodium 132 mmol/L (136-145); Total Bilirubin 0.5 mg/dL (0.15-1.2); Total Protein 6.2 g/dL (6.6-8.7)
[2023-03-07 05:20] LABS: Lactic Sepsis W/Reflex 3.6 mmol/L (0.5-2.2)
--- NOTE | 2023-03-07 05:23 | CTR_ITS ---
PROCEDURE INFORMATION: Exam: CT Right Lower Extremity With Contrast, Ankle Exam date and time: 03/07/2023 5:46 AM Age: 52 years old Clinical indication: Pain; Right; Prior surgery; Surgery date: 1-6 months; Surgery type: Ankle ortho; Patient HX: Wound to anterior ankle, fever; Additional info: Ankle pain TECHNIQUE: Imaging protocol: CT of the right lower extremity with intravenous contrast was performed. Exam focused on the ankle. Radiation optimization: All CT scans at this facility use at least one of these dose optimization techniques: automated exposure control; mA and/or kV adjustment per patient size (includes targeted exams where dose is matched to clinical indication); or iterative reconstruction. Contrast material: OMNI 350; Contrast volume: 100 ml; Contrast route: INTRAVENOUS (IV); REPORTING DATA: Count of CT and Cardiac NM exams in prior 12 months: This patient has received 3 known CTs and 0 known cardiac nuclear medicine studies in the 12 months prior to the current study. COMPARISON: MR ankle RT wo con* [id number] 12/07/2022 8:42 AM RADIATION DOSE METRICS: Total DLP (mGy-cm): 190.2 FINDINGS: Bones/joints: Surgical hardware transfixing distal tibial diaphyseal fracture, with fracture lines well visualized. Incomplete healing of distal fibular diaphyseal fracture. Surgical ankylosis of the hindfoot with prominent beam hardening artifact in association with surgical hardware. If underlying osteomyelitis is of clinical concern, correlation with three-phase radionuclide bone scan or MRI can be performed for improved characterization, as clinically indicated. Osteopenia and degenerative change. Multiple well corticated ossific densities. Soft tissues: Prominent soft tissue swelling and subcutaneous edema, along with multifocal soft tissue calcifications. Anterior soft tissue ulceration. CT/CT ankle RT w con [id number] IMPRESSION: 1. Incomplete healing of distal tibial and fibular diaphyseal fractures. 2. Prominent soft tissue swelling and subcutaneous edema, along with multifocal soft tissue calcifications and anterior soft tissue ulceration. 3. Additional findings, as described above.
[2023-03-07 05:40] LABS: SARS Covid-2 Antigen negative (Negative)
[2023-03-07] MEDS: iohexol 350 mg/mL 500 mL Btl (per mL) IV (05:53)
[2023-03-07] MEDS: vancomycin 1,000 MG in sodium chloride 0.9% 250 ML 250 MG IV ×2 (06:04→17:33)
[2023-03-07] MEDS: piperacillin-tazobactam 3.375 GM in sodium chloride 0.9% (plus) 50 ML IV ×3 (06:09→20:01)
[2023-03-07 06:45] LABS: Reflex Lactate Order REFLEX LACTIC ORDERD
--- NOTE | 2023-03-07 06:47 | P.CONIM_ITS ---
Providers/Reason For Consult Consulting Physician/Specialty*: Anthony Sales D.P.M. Reason for Consult*: right ankle wound Attending Physician: Medhat Rodriguez DO Primary Care Provider: Nel Peacock MD History of Present Illness History of Present Illness Erin Kelley is a 52 year old female presented to the emergency department this morning with complaints of increased pain at her right ankle and right wrist, had chills and body aches for the past 2 days with a cough. Patient is diabetic, smokes cigarettes daily, also has rheumatoid arthritis. 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 performed a right tibial talocalcaneal arthrodesis with anterior locking plate on 01/13/2023 without intraoperative complications. Shortly after being discharged at home she fell and sustained a fracture just proximal to the locking plate of her distal tibia and fibula requiring intramedullary nailing. Both surgeries were performed through an anterior ankle incision. Following intramedullary nailing she had an area of dehiscence centrally corresponding to the current wound. Review of Systems General: Reports: 10 or more systems reviewed and unremarkable except in HPI and below Const: Denies: fever(s) or chills Eyes: Denies: change in vision Card: Denies: chest pain or palpitations Resp: Denies: dyspnea or productive cough GI: Denies: abdominal pain, nausea or vomiting : Denies: flank pain Musc: Reports: extremity swelling, joint stiffness and deformity Skin/Breast: Reports: erythema, sores, changes in skin color, dry skin, nail changes and change in hair Neuro: Reports: numbness in extremities, sensory changes and difficulty walking Psych: Denies: suicidal ideation Endo: Denies: change in body appearance Jewel/Lymph: Denies: tender lymph nodes Medications/Allergies Home Medications Medication Instructions Recorded Confirmed Last Taken Type rosuvastatin 20 mg tablet (Crestor) 20 mg PO DAILY 09/04/19 03/01/23 01/12/23 History omeprazole 40 mg capsule,delayed 40 mg PO DAILY 09/05/19 03/01/23 01/13/23 History release nitroglycerin 0.4 mg sublingual 0.4 mg sublingual Q5M PRN chest 09/09/19 03/01/23 Unknown Rx tablet (Nitrostat) pain 30 days #25 tabs epinephrine 0.3 mg/0.3 mL See Rx Instructions .Route 11/01/19 03/01/23 Unknown History injection, auto-injector (EpiPen .COMPLEX PRN Allergic Reaction 2-Carrington) glucagon HCl 1 mg solution for 1 mg SUBCUT Q20M PRN blood sugar 11/01/19 03/01/23 Unknown History injection (Glucagon (HCl) ##0 Emergency Kit) insulin aspart U-100 100 unit/mL See Rx Instructions .Route .COMPLEX 11/01/19 03/07/23 01/12/23 08:00 History (3 mL) subcutaneous pen (Novolog FlexPen U-100 Insulin aspart) albuterol sulfate 2.5 mg/3 mL 2.5 mg inhalation Q6H PRN 04/01/20 03/01/23 12/14/22 History (0.083 %) solution for nebulization Shortness Of Breath nicotine 14 mg/24 hr daily 1 patch transdermal DAILY #28 ea 07/13/20 03/01/23 01/12/23 Rx transdermal patch aspirin 81 mg tablet,delayed 81 mg PO DAILY@0800 08/15/20 03/01/23 01/08/23 History release melatonin 3 mg capsule 3 mg PO DAILY 09/04/20 03/01/23 01/12/23 History apixaban 5 mg tablet (Eliquis) 5 mg PO BID 11/24/20 03/01/23 01/08/23 History metoprolol tartrate 25 mg tablet 25 mg PO BID #180 tabs 12/10/20 03/01/23 01/13/23 Rx tamsulosin 0.4 mg capsule (Flomax) 0.4 mg PO DAILY 05/22/21 03/01/23 01/12/23 History oxycodone 15 mg tablet 15 mg PO BID PRN pain 30 days #60 08/04/21 03/01/23 01/13/23 Rx tabs diclofenac sodium 1 % topical gel 4 g topical QID #100 grams 09/30/21 03/01/23 Unknown Rx (Voltaren Arthritis Pain) prednisone 5 mg tablet 5 mg PO DAILY PRN FLARES #60 tabs 02/14/22 03/01/23 Unknown Rx enalapril maleate 10 mg tablet 5 mg PO DAILY 03/02/22 03/01/23 01/12/23 History albuterol sulfate 90 mcg/actuation 2 puff inhalation Q6H PRN 05/20/22 03/01/23 01/12/23 20:00 Rx aerosol inhaler (Ventolin HFA) shortness of breath or wheezing #8.5 grams insulin glargine 100 unit/mL 50 unit SUBCUT BEDTIME 06/08/22 03/07/23 01/12/23 08:00 History subcutaneous solution (Lantus U-100 Insulin) ropinirole 2 mg tablet 3 mg PO BEDTIME 06/08/22 03/01/23 01/12/23 History abatacept 125 mg/mL subcutaneous 125 mg SUBCUT .qweek #4 mL 07/29/22 03/01/23 1 Week Ago Rx syringe (Orencia) ~01/07/23 alprazolam 0.25 mg tablet 0.25 mg PO DAILY PRN anxiety 09/16/22 03/01/23 01/12/23 History betamethasone dipropionate 0.05 % 1 applic topical BID #45 grams 10/12/22 03/01/23 01/12/23 Rx topical ointment fluocinonide 0.05 % topical 1 applic topical BID #60 grams 10/12/22 03/01/23 Unknown Rx ointment ipratropium 20 mcg-albuterol 100 1 puff inhalation Q6H PRN 10/17/22 03/01/23 01/12/23 Rx mcg/actuation mist for inhalation Shortness Of Breath #4 grams (Combivent Respimat) gabapentin 300 mg capsule 600 mg PO TID 30 days #180 caps 11/10/22 03/01/23 01/13/23 Rx Knee Walker #1 ea 11/11/22 03/01/23 Unknown Rx isosorbide mononitrate 30 mg 30 mg PO BID 01/12/23 03/01/23 01/13/23 History tablet,extended release 24 hr sertraline 100 mg tablet (Zoloft) 100 mg PO DAILY 01/12/23 03/01/23 01/12/23 History oxycodone-acetaminophen 10 mg-325 1 tab PO Q6H PRN Moderate Pain #10 01/18/23 03/01/23 Unknown Rx mg tablet tabs levofloxacin 750 mg tablet 750 mg PO DAILY@0600 #10 tabs 02/07/23 03/01/23 Unknown Rx CAM WALKER #1 ea 03/01/23 03/01/23 Unknown Rx doxycycline hyclate 100 mg capsule 100 mg PO BID 10 days #20 caps 03/02/23 Unknown Rx Allergies Allergy/AdvReac Type Severity Reaction Status Date / Time bee venom protein (honey bee) Allergy ALGY-Anaphy Verified 03/07/23 04:51 laxis PFSH Acute PFSH: Medical History Acute gout of right ankle Avulsion fracture of left ankle Cervical spondylosis Chronic anticoagulation Cigarette smoker motivated to quit Claudication Closed fracture of right distal fibula Closed fracture of right distal fibula Closed fracture of right distal tibia Closed right ankle fracture COVID-19 DDD (degenerative disc disease), cervical Diabetes Emphysema/COPD Essential hypertension Fall at home Fibromyalgia Fracture of distal end of tibia with fibula Immunocompromised Long-term current use of opiate analgesic Onychodystrophy Osteoporosis Pain, joint, multiple sites Portal vein thrombosis Psoriasis PVD (peripheral vascular disease) Rheumatoid arthritis Rheumatoid arthritis Seizures Spondylosis of lumbar region without myelopathy or radiculopathy Syncope Thrombocytopenia Tobacco use disorder Transaminitis Surgical History H/O dilation and curettage Hx laparoscopic cholecystectomy Hx of section (~1989) Hx of hysterectomy S/P foot surgery Family History Mother Stroke Cancer SKIN CANCER Sister Stroke Other Diabetes Myocardial infarct Denies family history of Anesthesia complication Bleeding disorder Social History Smoking and tobacco status: current every day smoker cigarettes Years cigarettes smoked: 40 [ Other cigarette details: 3 cigarettes/day currently] Quit status (tobacco): considering quitting Second hand smoke exposure: Yes Smoking risk assessment/counseling performed?: Yes Alcohol intake: former Substance/Drug Use: never Caregiver/support person: Yes Lives independently: Yes Household members: spouse Marital status: Current occupational status: disabled Pets and animals: Yes Do you think of yourself as: Straight/Heterosexual Current gender identity: Female Vitals/I&O/Wt Last Vital Signs Temp 103 F H 03/07/23 04:44 Pulse 107 H 03/07/23 06:22 Resp 22 H 03/07/23 06:22 BP 125/52 03/07/23 06:22 Pulse Ox 93 03/07/23 06:22 O2 Del Method Room Air 03/07/23 05:25 Weight last 48 hrs Weight 180 lb Physical Exam Narrative: Patient is alert and oriented ?3 and in no acute distress.? The following is a focused right lower extremity exam. VASCULAR: Dorsalis pedis and posterior tibial arteries palpable.? Capillary refill time less than 3 seconds to the distal hallux bilaterally. Calf is supple and nontender proximally and distally.? Decreased hair growth at the legs and feet.? Focal edema to the right ankle. NEUROLOGICAL: Protective sensation intact 7/10 sites tested with [place] Harry monofilament bilaterally.? Erythema and warmth to the right ankle. DERMATOLOGICAL: Dehiscence at anterior ankle incision at the level of the ankle measures 1.2 cm in length, 0.5 cm in width by 0.3 cm in depth with serous drainage, probes to tendon. No crepitus with palpation of adjacent soft tissue to the right ankle wound. No proximal lymphangitic streaking. MUSCULOSKELETAL: Mild tenderness of the right ankle globally.? Able to wiggle toes on command.? No pain with posterior calf squeeze bilaterally. 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 at midnight Planning on incision and debridement of right ankle wound tomorrow at noon Planning on application of wound VAC to the right ankle wound Empiric IV antibiotics currently being administered Strict nonweightbearing right lower extremity It is possible that the right ankle wound is a nidus of infection, clinically there is no erythema no soft tissue crepitus, it is a mixed presentation. Would benefit from surgical debridement as above planning on tomorrow at noon. Podiatry will follow. 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
--- NOTE | 2023-03-07 07:00 | P.HP_ITS ---
Providers/Chief Complaint Admitting Physician: Medhat Rodriguez DO Primary Care Provider: Nel Peacock MD Chief Complaint: LEG AND WRIST PAIN History of Present Illness Erin Kelley is a 52 year old female with past medical history of recent avascular necrosis of tibia left status post ORIF on 01/15/2023 COPD, diabetes, psoriasis, immunocompromised state secondary to chronic prednisone treatment presents with right ankle pain and right wrist pain. While in the emergency room she was found to have a fever of 103 and she admitted to chills and body aches for the last 2 days. Her lactic acid was elevated. However, during my exam she denied any complaints other than severe pain in her right wrist Review of Systems Const: Denies: fever(s) or chills Eyes: Denies: change in vision ENMT: Denies: throat pain or nasal congestion Card: Denies: chest pain or palpitations Resp: Denies: dyspnea or productive cough GI: Denies: abdominal pain, nausea, vomiting or change in stool character : Denies: dysuria Musc: Denies: back pain Skin/Breast: Reports: rash (Psoriasis lesions on abdomen legs and arms.), pruritus, erythema and non-healing lesions Neuro: Denies: headache(s) or dizziness Psych: Denies: anxiety or depression Jewel/Lymph: Denies: easy bruising or easy bleeding Medications/Allergies Home Medications Medication Instructions Recorded Confirmed Last Taken Type rosuvastatin 20 mg tablet (Crestor) 20 mg PO DAILY 09/04/19 03/01/23 01/12/23 History omeprazole 40 mg capsule,delayed 40 mg PO DAILY 09/05/19 03/01/23 01/13/23 History release nitroglycerin 0.4 mg sublingual 0.4 mg sublingual Q5M PRN chest 09/09/19 03/01/23 Unknown Rx tablet (Nitrostat) pain 30 days #25 tabs epinephrine 0.3 mg/0.3 mL See Rx Instructions .Route 11/01/19 03/01/23 Unknown History injection, auto-injector (EpiPen .COMPLEX PRN Allergic Reaction 2-Carrington) glucagon HCl 1 mg solution for 1 mg SUBCUT Q20M PRN blood sugar 11/01/19 03/01/23 Unknown History injection (Glucagon (HCl) ##0 Emergency Kit) insulin aspart U-100 100 unit/mL See Rx Instructions .Route .COMPLEX 11/01/19 03/01/23 01/12/23 08:00 History (3 mL) subcutaneous pen (Novolog FlexPen U-100 Insulin aspart) albuterol sulfate 2.5 mg/3 mL 2.5 mg inhalation Q6H PRN 04/01/20 03/01/23 0 12/14/22 History (0.083 %) solution for nebulization Shortness Of Breath nicotine 14 mg/24 hr daily 1 patch transdermal DAILY #28 ea 07/13/20 03/01/23 01/12/23 Rx transdermal patch aspirin 81 mg tablet,delayed 81 mg PO DAILY@0800 08/15/20 03/01/23 01/08/23 History release melatonin 3 mg capsule 3 mg PO DAILY 09/04/20 03/01/23 01/12/23 History apixaban 5 mg tablet (Eliquis) 5 mg PO BID 11/24/20 03/01/23 01/08/23 History metoprolol tartrate 25 mg tablet 25 mg PO BID #180 tabs 12/10/20 03/01/23 01/13/23 Rx tamsulosin 0.4 mg capsule (Flomax) 0.4 mg PO DAILY 05/22/21 03/01/23 01/12/23 History oxycodone 15 mg tablet 15 mg PO BID PRN pain 30 days #60 08/04/21 03/01/23 01/13/23 Rx tabs diclofenac sodium 1 % topical gel 4 g topical QID #100 grams 09/30/21 03/01/23 Unknown Rx (Voltaren Arthritis Pain) prednisone 5 mg tablet 5 mg PO DAILY PRN FLARES #60 tabs 02/14/22 03/01/23 Unknown Rx enalapril maleate 10 mg tablet 5 mg PO DAILY 03/02/22 03/01/23 01/12/23 History albuterol sulfate 90 mcg/actuation 2 puff inhalation Q6H PRN 05/20/22 03/01/23 01/12/23 20:00 Rx aerosol inhaler (Ventolin HFA) shortness of breath or wheezing #8.5 grams insulin glargine 100 unit/mL 50 unit SUBCUT DAILY@0800 06/08/22 03/01/23 01/12/23 08:00 History subcutaneous solution (Lantus U-100 Insulin) ropinirole 2 mg tablet 3 mg PO BEDTIME 06/08/22 03/01/23 01/12/23 History abatacept 125 mg/mL subcutaneous 125 mg SUBCUT .qweek #4 mL 07/29/22 03/01/23 1 Week Ago Rx syringe (Orencia) ~01/07/23 alprazolam 0.25 mg tablet 0.25 mg PO DAILY PRN anxiety 09/16/22 03/01/23 01/12/23 History betamethasone dipropionate 0.05 % 1 applic topical BID #45 grams 10/12/22 03/01/23 01/12/23 Rx topical ointment fluocinonide 0.05 % topical 1 applic topical BID #60 grams 10/12/22 03/01/23 Unknown Rx ointment ipratropium 20 mcg-albuterol 100 1 puff inhalation Q6H PRN 10/17/22 03/01/23 01/12/23 Rx mcg/actuation mist for inhalation Shortness Of Breath #4 grams (Combivent Respimat) gabapentin 300 mg capsule 600 mg PO TID 30 days #180 caps 11/10/22 03/01/23 01/13/23 Rx Knee Walker #1 ea 11/11/22 03/01/23 Unknown Rx isosorbide mononitrate 30 mg 30 mg PO BID 01/12/23 03/01/23 01/13/23 History tablet,extended release 24 hr sertraline 100 mg tablet (Zoloft) 100 mg PO DAILY 01/12/23 03/01/23 01/12/23 History oxycodone-acetaminophen 10 mg-325 1 tab PO Q6H PRN Moderate Pain #10 01/18/23 03/01/23 Unknown Rx mg tablet tabs levofloxacin 750 mg tablet 750 mg PO DAILY@0600 #10 tabs 02/07/23 03/01/23 Unknown Rx CAM WALKER #1 ea 03/01/23 03/01/23 Unknown Rx doxycycline hyclate 100 mg capsule 100 mg PO BID 10 days #20 caps 03/02/23 Unknown Rx Allergies Allergy/AdvReac Type Severity Reaction Status Date / Time bee venom protein (honey bee) Allergy ALGY-Anaphy Verified 03/07/23 04:51 laxis PFSH Acute PFSH: Medical History Acute gout of right ankle Avulsion fracture of left ankle Cervical spondylosis Chronic anticoagulation Cigarette smoker motivated to quit Claudication Closed fracture of right distal fibula Closed fracture of right distal fibula Closed fracture of right distal tibia Closed right ankle fracture COVID-19 DDD (degenerative disc disease), cervical Diabetes Emphysema/COPD Essential hypertension Fall at home Fibromyalgia Fracture of distal end of tibia with fibula Immunocompromised Long-term current use of opiate analgesic Onychodystrophy Osteoporosis Pain, joint, multiple sites Portal vein thrombosis Psoriasis PVD (peripheral vascular disease) Rheumatoid arthritis Rheumatoid arthritis Seizures Spondylosis of lumbar region without myelopathy or radiculopathy Syncope Thrombocytopenia Tobacco use disorder Transaminitis Surgical History H/O dilation and curettage Hx laparoscopic cholecystectomy Hx of section (~1989) Hx of hysterectomy S/P foot surgery Family History Mother Stroke Cancer SKIN CANCER Sister Stroke Other Diabetes Myocardial infarct Denies family history of Anesthesia complication Bleeding disorder Social History Smoking and tobacco status: current every day smoker cigarettes Years cigarettes smoked: 40 [ Other cigarette details: 3 cigarettes/day currently] Quit status (tobacco): considering quitting Second hand smoke exposure: Yes Smoking risk assessment/counseling performed?: Yes Alcohol intake: former Substance/Drug Use: never Caregiver/support person: Yes Lives independently: Yes Household members: spouse Marital status: Current occupational status: disabled Pets and animals: Yes Do you think of yourself as: Straight/Heterosexual Current gender identity: Female Vitals/I&O/Wt Last Vital Signs Temp 103 F H 03/07/23 04:44 Pulse 107 H 03/07/23 06:22 Resp 22 H 03/07/23 06:22 BP 125/52 03/07/23 06:22 Pulse Ox 93 03/07/23 06:22 O2 Del Method Room Air 03/07/23 05:25 Weight last 48 hrs Weight 81.647 kg Physical Exam Narrative: Raquel is a 52-year-old white female in mild acute distress due to right wrist pain. She is malodorous of tobacco upon entering room. Neurologic. She is alert and oriented to person place time. No focal deficit. She appears to have a tick. She has difficulty sitting still HEENT head is normocephalic atraumatic pupils equal round react light accom modation extraocular muscles are intact there is no scleral icterus neck is supple no JVD carotid bruits lymphadenopathy mucous membranes are dry Chest: Rises symmetrically with inspiration Cardiac: Regular rate and rhythm normal S1-S2 without murmurs clicks gallops or rubs Respiratory: Mildly decreased aeration no wheezes rales or rhonchi Abdomen obese soft nontender nondistended positive bowel sounds no hepatosplenomegaly Extremities for present +1 pitting edema to the right ankle and slightly above. Right wrist is in a splint. Examination is nontender to palpation tenderness with flexion extension of the wrist Skin. Multiple psoriatic-like lesions although not seen on extensor surfaces. And multiple chronic lesions associated with chronic itching noted in the distal extremities. Psych. Patient had tick of head and upper body. Her mood was good affect seemed off considering illness. Back: No scoliosis or kyphosis noted no CVA tenderness Data 03/07/23 04:54 03/07/23 04:54 Other Labs: Lactic acid 3.6 Micro: Microbiology 03/07/23 05:16 Blood Culture - Preliminary Blood SPECIMEN COLLECTED 03/07/23 04:58 Blood Culture - Preliminary Blood SPECIMEN COLLECTED Other Xray: Radiologist's impression: A poorly defined 3.1 by 0.8 by 0.7 cm soft tissue fluid collection is identified anterior to the distal tibia (series 22: Image 28 and series 20: Image 68), which would be worrisome for developing soft tissue abscess. CXR: Radiologist's impression: IMPRESSION: Hypoinflation , interstitial prominence, and mild airspace disease, without focal infiltrate. ? A&P Assessment and plan (1) Sepsis: Admit. IV fluids. Antibiotics to cover pneumonia and wound infection (2) Pneumonia: Antibiotics, O2 as needed Sbe toilet (3) Ankle wound: Dr. Ware was consulted by the ER physician. He will follow. (4) Dehiscence of incision: As above (5) Emphysema/COPD: Continue home medications no acute exacerbation at this time Qualifiers: Emphysema type: centrilobular Qualified Code(s): J43.2 - Centrilobular emphysema (6) Immunocompromised: Secondary to prednisone. (7) Pain, joint, multiple sites: Patient is mostly complaining of right wrist pain at this time. There is no edema erythema or warmth to the right wrist. (8) Tobacco use disorder: May have nicotine patch if desired Attestations Medical Necessity Statement*: Patient with sepsis and severe fever. She is postop ORIF of right ankle with open wound. She also has COPD and possible pneumonia on chest x-ray. Patient requires 2 midnight stay for IV fluid antibiotics and assessment. Coding Level of Care Code Acute Code for [facility] Diagnoses Sepsis A41.9 Pneumonia J18.9 Ankle wound S91.009A Dehiscence of incision T81.31XA Emphysema/COPD J43.2 Emphysema type: centrilobular Immunocompromised D84.9 Pain, joint, multiple sites M25.50 Tobacco use disorder F17.200
--- NOTE | 2023-03-07 08:11 | PC.PHAR ---
pt states he ofelia [phone] takes care of her medications-called ofelia states he will call me back in 30 minutes
[2023-03-07 08:30] LABS: Lactic Acid level (Lactate) 2.3 mmol/L (0.5-2.2)
[2023-03-07] MEDS: tamsulosin 0.4 mg Capsule PO (08:37)
[2023-03-07] MEDS: sertraline 100 mg Tablet PO (08:37)
[2023-03-07] MEDS: atorvastatin 40 mg Tablet 80 MG PO (08:37)
[2023-03-07] MEDS: docusate sodium 100 mg Capsule PO ×2 (08:37→17:38)
[2023-03-07] MEDS: CELEcoxib 200 mg Capsule 400 MG PO (08:39)
[2023-03-07] MEDS: aspirin 81 mg EC Tablet PO (08:39)
[2023-03-07] MEDS: lisinopril 10 mg Tablet PO (08:40)
[2023-03-07] MEDS: gabapentin 300 mg Capsule 900 MG PO ×3 (08:40→20:01)
[2023-03-07] MEDS: apixaban 5 mg Tablet PO ×2 (08:41→17:38)
[2023-03-07] MEDS: isosorbide mononitrate ER 30 mg Tablet PO ×2 (08:41→17:38)
[2023-03-07] MEDS: metoprolol tartrate 25 mg Tablet PO ×2 (08:41→17:38)
[2023-03-07] MEDS: nicotine 14 mg Patch 1 PATCH TRANSDERMA (08:43)
[2023-03-07 08:49] LABS: Ferritin 57 ng/mL (15-150)
[2023-03-07 08:54] LABS: Procalcitonin 0.27 ng/mL (0-0.5)
[2023-03-07 09:03] LABS: Erythrocyte Sedimentation Rate 47 mm/hr (0-15)
[2023-03-07 09:04] LABS: Hepatitis A Antibody IgM Non-Reactive (Nonreactive); Hepatitis B Core IgM Non-Reactive (Nonreactive); Hepatitis B Surface Antigen Non-Reactive (Nonreactive); Hepatitis C Virus Antibody Non-Reactive (Nonreactive)
[2023-03-07 09:32] LABS: HIV 1 & 2 Antibody Non-Reactive (Non-Reactiv); HIV 1 & 2 Antigen Non-Reactive (Non-Reactiv)
[2023-03-07] MEDS: insulin lispro 100 unit/1 mL SUBCUT ×2 (09:38→21:47)
[2023-03-07] MEDS: oxyCODONE 5 mg IR Tab/Cap 10 MG PO ×3 (09:39→20:01)
[2023-03-07] MEDS: sodium chloride 0.9% 1,000 ML 50 ML IV (09:40)
[2023-03-07] MEDS: sodium hypochlorite 0.125% Btl 473 mL 1 APPLIC TOPICAL (09:50)
[2023-03-07] MEDS: insulin glargine 100 units/1 mL 50 UNIT SUBCUT (09:50)
--- NOTE | 2023-03-07 10:54 | PC.PHAR ---
pt and pts verified medications- brought in [facility] states meds were changed and states the pt takes whats entered -see notes-te filled isosorbide mononitrate and dinitrate pts states he thinks the pt is taking the mononitrate-see pharmacy comments on prescriptions-
[2023-03-07 11:16] LABS: Glucose Urine UA Norm (Normal); Ketones Urine Negative (Negative); Protein Urine Trace (Negative); Urine Appearance Hazy (CLEAR); Urine Color Yellow (Yellow); pH Urine 5 (5-7)
[2023-03-07 11:17] LABS: Add Urine Microscopic? YES; Bacteria Urine TRACE /hpf; Bilirubin Urine Neg (Negative); Blood Urine Trace (Negative); Leukocyte Esterase Urine Trace (Negative); Nitrate Urine Negative (Negative); RBC Urine 0-4 /hpf (0-2); Squamous Epithelial Cell Urine 15-25 /hpf (0-5); Urobilinogen Urine 1 mg/dL (Negative); WBC Urine 0-4 /hpf (0-5)
[2023-03-07 11:50] LABS: Glucose Point of Care 57 mg/dL (70-110)
--- NOTE | 2023-03-07 11:59 | PM.PN ---
Vitals/I&O/Wt Last Vital Signs Temp 98.4 F 03/07/23 11:15 Pulse 82 03/07/23 11:15 Resp 16 03/07/23 11:15 BP 101/65 03/07/23 11:15 Pulse Ox 92 03/07/23 11:15 O2 Del Method Room Air 03/07/23 11:15 03/06/23 03/07/23 03/07/23 22:59 06:59 14:59 Intake Total 2420 / 2420 Balance 2420 / 2420 Weight last 48 hrs Weight 81.647 kg Physical Exam Const: COMMON NORMALS: no acute distress and patient oriented x3 Resp: COMMON NORMALS: normal respiratory effort, No retractions, No use of accessory muscles and clear to auscultation bilaterally AUSCULTATION: clear to auscultation bilaterally Cardio: COMMON NORMALS: regular rate, regular rhythm, S1 normal heart sound present and S2 normal heart sound present RATE: regular rate RHYTHM: regular rhythm HEART SOUNDS: S1 normal heart sound present and S2 normal heart sound present GI: COMMON NORMALS: Normal to inspection, nondistended, normoactive bowel sounds present and non-tender Extremity: OTHER: Right ankle currently wrapped Neuro: COMMON NORMALS: patient oriented x3 Psych: COMMON NORMALS: mental status grossly normal Data 03/07/23 04:54 03/07/23 04:54 Micro: Microbiology 03/07/23 05:16 Blood Culture - Preliminary Blood SPECIMEN COLLECTED 03/07/23 04:58 Blood Culture - Preliminary Blood SPECIMEN COLLECTED A&P Assessment and plan (1) Sepsis: Likely secondary to right ankle wound Continue vancomycin, Zosyn Follow blood cultures Follow wound cultures Ordered respiratory viral panel Ordered HIV, hep C Urinalysis Pro-Christiano, CRP, sed rate (2) Pneumonia: Currently not on any oxygen, no cough, no shortness of breath We will order CT of the chest (3) Ankle wound: Dr. Ware was consulted by the ER physician. Spoke to Dr. Pillai, n.p.o. midnight, for surgical debridement tomorrow (4) Dehiscence of incision: As above (5) Emphysema/COPD: Continue home medications no acute exacerbation at this time Qualifiers: Emphysema type: centrilobular Qualified Code(s): J43.2 - Centrilobular emphysema (6) Immunocompromised: Secondary to prednisone. (7) Pain, joint, multiple sites: Patient is mostly complaining of right wrist pain at this time. There is no edema erythema or warmth to the right wrist. (8) Tobacco use disorder: May have nicotine patch if desired Plan Plan for today, continue vancomycin, Zosyn, grant CT scan immunocompromised state, n.p.o. midnight Attestations Medical Necessity Statement*: Patient requires hospitalization for fevers, concern for ankle wound, requiring debridement, IV antibiotics, persistent fevers, Diagnoses Sepsis A41.9 Pneumonia J18.9 Ankle wound S91.009A Dehiscence of incision T81.31XA Emphysema/COPD J43.2 Emphysema type: centrilobular Immunocompromised D84.9 Pain, joint, multiple sites M25.50 Tobacco use disorder F17.200
--- NOTE | 2023-03-07 12:07 | CT_ITS ---
WS: [id number] CT CHEST, ABDOMEN AND PELVIS NONCONTRAST. HISTORY: fever, sepsis, TECHNIQUE: Contiguous 5 mm axial imaging performed through the chest, abdomen and pelvis without IV c ontrast, oral contrast has not been provided. Coronal and sagittal reformats chest. Coronal and sagit tressa reformats through the abdomen and pelvis. All CT scans at [facility] use at least one of these dose optimization techniques: automated exposure control; mA and/or kV adjustment per patient s ize (includes targeted exams where dose is matched to clinical indication); or iterative reconstructi on. CONTRAST: None DLP: 1246.34 mGy.cm COMPARISON: 01/17/2023, 08/17/[address]: Marked centrilobular and paraseptal emphysema. Reidentified is fullness in the region of th e RIGHT hilum. Enlarged lymph nodes were noted bilaterally in the hilar regions on 01/17/2023. Lymph n odes have been prominent since 2019. Cannot evaluate for interval change without IV contrast. There i s mild pleural thickening at the RIGHT lung base. Remote healed bilateral rib fractures. Heart is mil dly prominent. No pericardial effusion. Moderate coronary artery calcification. Mildly enlarged pulmo nary artery. Abdomen CT: Hepatic steatosis. Splenic and hepatic granulomata. Prior cholecystectomy. Negative pancr eas and adrenal glands. There is high density contrast within the renal pelves. The urinary bladder i s also distended with contrast. Contrast was not provided by the radiology department at this time. T here is may have been an outside CT of examination. That history has not been provided. Mild fluid distention of the stomach. No small bowel obstruction. Normal appendix. Mild diffuse const ipation. Pelvic CT: Urinary bladder is well distended with dense contrast being excreted from the kidneys. The re is no free fluid or adenopathy. No destructive bone lesions. IMPRESSION: 1. No acute inflammatory process noted within the chest, abdomen or pelvis. 2. There is high density excreted contrast in the renal pelves, ureters and bladder. IV contrast was not provided OZH. May be there was an outside CT examination initially performed. That history has no t been provided. 3. Prior cholecystectomy. 4. Normal appendix. 5. Mild constipation with no evidence for acute diverticulitis. 6. Severe centrilobular and paraseptal emphysema. 7. Bilateral hilar fullness. Lymph nodes have been previously described in the hilar regions. Without IV contrast cannot evaluate further.
[2023-03-07 13:03] LABS: Glucose Point of Care 120 mg/dL (70-110)
[2023-03-07 15:55] LABS: Glucose Point of Care 101 mg/dL (70-110)
[2023-03-07] MEDS: ALPRAZolam 0.5 mg Tablet 0.25 MG PO (19:29)
[2023-03-07] MEDS: CELEcoxib 200 mg Capsule PO (19:29)
[2023-03-07] MEDS: ropinirole 2 mg Tablet PO (20:00)
[2023-03-07] MEDS: duloxetine 30 mg Capsule PO (20:01)
[2023-03-07] MEDS: ropinirole 1 mg Tablet PO (20:01)
[2023-03-07 21:15] LABS: Glucose Point of Care 206 mg/dL (70-110)
[2023-03-08] VITALS (20 sets, daily range): BP systolic 92–115; BP diastolic 46–70; PULSE 67–78; RESP 12–20; TEMP 36.1–37.1; O2SAT 91–100
[2023-03-08] MEDS: sodium chloride 0.9% 1,000 ML 50 ML IV (04:27)
[2023-03-08] MEDS: vancomycin 1,000 MG in sodium chloride 0.9% 250 ML 250 MG IV ×2 (04:29→19:04)
[2023-03-08] MEDS: oxyCODONE 5 mg IR Tab/Cap 10 MG PO ×5 (04:31→22:40)
[2023-03-08] MEDS: piperacillin-tazobactam 3.375 GM in sodium chloride 0.9% (plus) 50 ML IV ×2 (05:23→20:32)
[2023-03-08 06:01] LABS: Basophils # 0.1 10^3/uL (0.0-0.1); Basophils % 0.5 %; Eosinophils # 0.3 10^3/uL (0.0-0.8); Eosinophils % 2.1 %; Hematocrit 29.5 % (36-47); Lymphocytes # 1.6 10^3/uL (0.8-4.8); Lymphocytes % 12.4 %; Mean Corpuscular HGB Conc 28.8 g/dL (30-55); Mean Corpuscular Volume 79.7 fl (85-98); Mean Platelet Volume 10.9 fL (7.4-10.4); Monocytes # 0.7 10^3/uL (0.2-0.9); Monocytes % 5.3 %; Neutrophils # 10.28 10^3/uL (1.8-7.7); Neutrophils % 79.2 %; Nucleated Red Blood Cells % 0 %; Platelet Count 157 10^3/cmm (157-399); Red Cell Distribution Width 17.2 % (12.1-15.1); White Blood Count 12.95 10^3/uL (3.29-11.43)
[2023-03-08 06:11] LABS: Estmated Average Glucose 180; Hemoglobin A1C 7.9 % (4.0-6.0)
[2023-03-08 06:21] LABS: C Reactive Protein 165.9 mg/L (0.0-4.9)
[2023-03-08 06:30] LABS: Anion Gap 12.1 (5-19); Blood Urea Nitrogen 25 mg/dL (6-20); Calcium 7.5 mg/dL (8.5-10.5); Carbon Dioxide 20 mmol/L (22-29); Chloride 108 mmol/L (98-107); Glomerular Filtration Rate 104.2 mL/min (90-130); Glucose 60 mg/dL (65-115); Osmolality Calculated 284 mOsm/kg (285-295); Potassium 4.1 mmol/L (3.5-5.1); Sodium 136 mmol/L (136-145); Thyroid Stimulating Hormone 0.91 uIU/mL (0.27-4.20)
[2023-03-08 06:31] LABS: Procalcitonin 0.96 ng/mL (0-0.5)
[2023-03-08 08:53] LABS: Glucose Point of Care 54 mg/dL (70-110)
[2023-03-08] MEDS: dextrose 50% syringe 50 mL IVP (09:08)
[2023-03-08] MEDS: aspirin 81 mg EC Tablet PO (09:18)
[2023-03-08] MEDS: isosorbide mononitrate ER 30 mg Tablet PO ×2 (09:19→17:57)
[2023-03-08] MEDS: atorvastatin 40 mg Tablet 80 MG PO (09:19)
[2023-03-08] MEDS: sertraline 100 mg Tablet PO (09:19)
[2023-03-08] MEDS: gabapentin 300 mg Capsule 900 MG PO ×3 (09:19→20:31)
[2023-03-08] MEDS: tamsulosin 0.4 mg Capsule PO (09:19)
[2023-03-08] MEDS: docusate sodium 100 mg Capsule PO (09:19)
[2023-03-08] MEDS: nicotine 14 mg Patch 1 PATCH TRANSDERMA (09:20)
[2023-03-08] MEDS: apixaban 5 mg Tablet PO ×2 (09:20→17:57)
[2023-03-08 09:36] LABS: Glucose Point of Care 160 mg/dL (70-110)
[2023-03-08] MEDS: sodium chloride 0.9% 1,000 ML 30 ML IV (11:20)
[2023-03-08 11:27] LABS: Glucose Point of Care 97 mg/dL (70-110)
--- NOTE | 2023-03-08 11:46 | W.PM.OPSUD ---
Surgery/Procedure H&P Update DATE OF PROCEDURE: March 08, 2023 DATE H&P PERFORMED: 03/07/23 H&P UPDATE INFORMATION: I have reviewed H&P completed within last 30 days, I have examined patient prior to procedure, No changes to prior documentation, H&P to be scanned into chart and H&P is in [facility] [place] on date indicated PREOP DIAGNOSIS: Wound to myofascial layer right ankle PLANNED PROCEDURE: Operation Date: 03/08/23 12:00 Proposed Procedures p I&D right ankle with wound vac placement(Right) - Anthony Sales DPM
--- NOTE | 2023-03-08 11:51 | P.ANESASSM_ITS ---
Pre-Anesthetic Assessment Height/Weight: Height 1.65 m Weight 81.647 kg Temp Pulse Resp BP Pulse Ox O2 Del Method 98.7 F 72 19 H 96/60 93 Room Air 03/08/23 11:33 03/08/23 11:33 03/08/23 11:33 03/08/23 11:33 03/08/23 11:33 03/08/23 11:33 Preop Diagnosis: Wound to myofascial layer right ankle Operation Date: 03/08/23 12:00 Proposed Procedures p I&D right ankle with wound vac placement(Right) - Anthony Sales DPM Familial anesthetic complications: None Was Beta Brooke taken within 24 hours: N/A Was Clonidine taken within 24 hours: N/A Last intake: Intake Last Liquid Date 03/07/23 Last Liquid Time 23:50 Last Solid Date 03/07/23 Last Solid Time 17:30 Social Tobacco and No alcohol Exam alert, oriented x 3, clear to auscultation bilaterally and regular rate & rhythm Airway Mallampati: Class II Dentition: false Pulmonary Chronic Obstructive Pulmonary Disease CV/HEM Hypertension ARF Hepatic Hepatic failiure, portal HTN Metabolic Diabetes Mellitus [facility] [place] Fibromyalgia and Rheumatoid Arthritis Anesthetic Plan ASA status: 4 Anesthesia: MAC Risk of > 500 ml blood loss (7ml/kg in children): No Medications/Allergies Home Medications Medication Instructions Recorded Confirmed Last Taken Type rosuvastatin 20 mg tablet (Crestor) 20 mg PO QAM 09/04/19 03/07/23 01/12/23 History omeprazole 40 mg capsule,delayed 40 mg PO QAM 09/05/19 03/07/23 01/13/23 History release nitroglycerin 0.4 mg sublingual 0.4 mg sublingual Q5M PRN chest 09/09/19 03/07/23 Unknown Rx tablet (Nitrostat) pain 30 days #25 tabs epinephrine 0.3 mg/0.3 mL See Rx Instructions .Route 11/01/19 03/07/23 Unknown History injection, auto-injector (EpiPen .COMPLEX PRN Allergic Reaction 2-Carrington) glucagon HCl 1 mg solution for 1 mg SUBCUT Q20M PRN blood sugar 11/01/19 03/07/23 Unknown History injection (Glucagon (HCl) ##0 Emergency Kit) insulin aspart U-100 100 unit/mL See Rx Instructions .Route .COMPLEX 11/01/19 03/07/23 01/12/23 08:00 History (3 mL) subcutaneous pen (Novolog FlexPen U-100 Insulin aspart) albuterol sulfate 2.5 mg/3 mL 2.5 mg inhalation Q6H PRN 04/01/20 03/07/23 12/14/22 History (0.083 %) solution for nebulization Shortness Of Breath aspirin 81 mg tablet,delayed 81 mg PO DAILY@0800 08/15/20 03/07/23 01/08/23 History release melatonin 3 mg capsule 3 mg PO BEDTIME 09/04/20 03/07/23 01/12/23 History apixaban 5 mg tablet (Eliquis) 5 mg PO BID 11/24/20 03/07/23 01/08/23 History tamsulosin 0.4 mg capsule (Flomax) 0.4 mg PO BEDTIME 05/22/21 03/07/23 01/12/23 History prednisone 5 mg tablet 5 mg PO DAILY PRN FLARES #60 tabs 02/14/22 03/07/23 Unknown Rx abatacept 125 mg/mL subcutaneous 125 mg SUBCUT .qweek #4 mL 07/29/22 03/07/23 1 Week Ago Rx syringe (Orencia) ~01/07/23 alprazolam 0.25 mg tablet 0.25 mg PO DAILY PRN anxiety 09/16/22 03/07/2312/30 History ipratropium 20 mcg-albuterol 100 1 puff inhalation Q6H PRN 10/17/22 03/07/23 01/12/23 Rx mcg/actuation mist for inhalation Shortness Of Breath #4 grams (Combivent Respimat) Knee Ashutosh #1 ea 11/11/22 03/07/23 Unknown Rx isosorbide mononitrate 30 mg 15 mg PO BID 01/12/23 03/07/23 01/13/23 History tablet,extended release 24 hr sertraline 100 mg tablet (Zoloft) 100 mg PO QAM 01/12/23 03/07/23 01/12/23 History CAM ASHUTOSH #1 ea 03/01/23 03/07/23 Unknown Rx doxycycline hyclate 100 mg capsule 100 mg PO BID 10 days #20 caps 03/02/23 03/07/2303/06/23 Rx acetaminophen 500 mg tablet 1,000 mg PO Q12H PRN Pain 03/07/23 03/07/23 Unknown History albuterol sulfate 90 mcg/actuation 2 puff inhalation BID PRN 03/07/23 03/07/23 Unknown History aerosol inhaler (Ventolin HFA) Shortness Of Breath docusate sodium 100 mg capsule 100 mg PO BID PRN Constipation 03/07/23 03/07/23 Unknown History (Colace) ergocalciferol (vitamin D2) 1,250 50,000 unit PO Q7D 03/07/23 03/07/23 Unknown History mcg (50,000 unit) capsule (Vitamin D2) folic acid 1 mg tablet 1 mg PO QAM 03/07/23 03/07/23 Unknown History gabapentin 300 mg capsule 300 mg PO TID 03/07/23 03/07/23 Unknown History guaifenesin 600 mg tablet, 600 mg PO Q12H PRN Congestion 03/07/23 03/07/23 Unknown History extended release 12 hr (Mucinex) insulin glargine 100 unit/mL (3 50 unit SUBCUT BEDTIME 03/07/23 03/07/23 Unknown History mL) subcutaneous pen (Lantus Solostar U-100 Insulin) magnesium hydroxide 400 mg/5 mL 30 ml PO DAILY PRN Constipation 03/07/23 03/07/23 Unknown History oral suspension (Milk of Magnesia) oxycodone 15 mg tablet 7.5 mg PO QID PRN Pain 03/07/23 03/07/23 Unknown History potassium chloride 20 mEq 20 meq PO QAM 03/07/23 03/07/23 Unknown History tablet,extended release ropinirole 3 mg tablet 3 mg PO BEDTIME 03/07/23 03/07/23 Unknown History vitamin B complex 1 tab PO DAILY 03/07/23 03/07/23 Unknown History Allergies Allergy/AdvReac Type Severity Reaction Status Date / Time bee venom protein (honey bee) Allergy ALGY-Anaphy Verified 03/07/23 04:51 laxis Current Medications Generic Name Dose Route Start Last Admin Trade Name Freq PRN Reason Stop Dose Admin Alprazolam 0.25 mg 03/07/23 07:33 03/07/23 19:29 Alprazolam 0.5 Mg Tablet PO 0.25 mg DAILY PRN Administration anxiety Apixaban 5 mg 03/07/23 09:00 03/08/23 09:20 Apixaban 5 Mg Tablet PO 5 mg BID PHONG Administration Aspirin 81 mg 03/07/23 08:00 03/08/23 09:18 Aspirin 81 Mg Ec Tablet PO 81 mg DAILY@0800 PHONG Administration Atorvastatin Calcium 80 mg 03/07/23 09:00 03/08/23 09:19 Atorvastatin 40 Mg Tablet PO 80 mg DAILY PHONG Administration Celecoxib 200 mg 03/07/23 08:20 03/07/23 19:29 Celecoxib 200 Mg Capsule PO 200 mg Q12H PRN Administration MODERATE pain Dextrose 50 ml 03/07/23 07:39 03/08/23 09:08 Dextrose 50% Syringe 50 Ml IVP 50 ml PRN PRN Administration hypoglycemia protocol Protocol Docusate Sodium 100 mg 03/07/23 09:00 03/08/23 09:19 Docusate Sodium 100 Mg Capsule PO 100 mg BID PHONG Administration Duloxetine HCl 30 mg 03/07/23 21:00 03/07/23 20:01 Duloxetine 30 Mg Capsule PO 30 mg DAILY@2100 PHONG Administration Gabapentin 900 mg 03/07/23 09:00 03/08/23 09:19 Gabapentin 300 Mg Capsule PO 900 mg TID PHONG Administration Sodium Chloride 1,000 mls @ 50 mls/hr 03/07/23 07:30 03/08/23 04:27 Sodium Chloride 0.9% IV 50 mls/hr .Q20H HPONG Administration Vancomycin HCl 1,000 mg/ 250 mls @ 250 mls/hr 03/07/23 18:00 03/08/23 05:29 Sodium Chloride IV Infused Q12H PHONG Infusion Protocol As Directed Piperacillin Sod/Tazobactam 50 mls @ 12.5 mls/hr 03/07/23 12:00 03/08/23 09:33 Sod 3.375 gm/ Sodium Chloride IV Infused Q8H PHONG Infusion Protocol As Directed Sodium Chloride 1,000 mls @ 30 mls/hr 03/08/23 11:15 03/08/23 11:20 Sodium Chloride 0.9% IV 03/09/23 11:14 30 mls/hr .Q24H PHONG Administration Insulin Glargine 50 unit 03/07/23 08:00 03/08/23 09:30 Insulin Glargine 100 Units/1 Ml SUBCUT Not Given DAILY@0800 [facility] Insulin Human Lispro 0 unit 03/07/23 21:00 03/07/23 21:47 Insulin Lispro 100 Unit/1 Ml SUBCUT 3 unit BEDTIME [facility] Administration Protocol Insulin Human Lispro 0 unit 03/07/23 08:00 03/08/23 09:20 Insulin Lispro 100 Unit/1 Ml SUBCUT Not Given TIDWM [facility] Protocol Isosorbide Mononitrate 30 mg 03/07/23 09:00 03/08/23 09:19 Isosorbide Mononitrate Er 30 Mg Tablet PO 30 mg BID PHONG Administration Lisinopril 10 mg 03/07/23 09:00 03/08/23 09:32 Lisinopril 10 Mg Tablet PO Not Given DAILY [facility] Metoprolol Tartrate 25 mg 03/07/23 09:00 03/08/23 09:32 Metoprolol Tartrate 25 Mg Tablet PO Not Given BID [facility] Nicotine 1 patch 03/07/23 09:00 03/08/23 09:20 Nicotine 14 Mg Patch TRANSDERMA 1 patch DAILY [facility] Administration Oxycodone HCl 10 mg 03/07/23 07:49 03/08/23 09:30 Oxycodone 5 Mg Ir Tab/Cap PO 10 mg Q4H PRN Administration SEVERE PAIN Ropinirole HCl 2 mg 03/07/23 21:00 03/07/23 20:00 Ropinirole 2 Mg Tablet PO 2 mg BEDTIME PHONG Administration Ropinirole HCl 1 mg 03/07/23 21:00 03/07/23 20:01 Ropinirole 1 Mg Tablet PO 1 mg BEDTIME PHONG Administration Sertraline HCl 100 mg 03/07/23 09:00 03/08/23 09:19 Sertraline 100 Mg Tablet PO 100 mg DAILY PHONG Administration Sodium Hypochlorite 1 applic 03/07/23 08:00 03/08/23 09:17 Sodium Hypochlorite 0.125% Btl 473 Ml TOPICAL Not Given Q24H [facility] Tamsulosin HCl 0.4 mg 03/07/23 09:00 03/08/23 09:19 Tamsulosin 0.4 Mg Capsule PO 0.4 mg DAILY PHONG Administration PFSH Anesthesia Medical History Acute gout of right ankle Avulsion fracture of left ankle Cervical spondylosis Chronic anticoagulation Cigarette smoker motivated to quit Claudication Closed fracture of right distal fibula Closed fracture of right distal fibula Closed fracture of right distal tibia Closed right ankle fracture COVID-19 DDD (degenerative disc disease), cervical Diabetes Emphysema/COPD Essential hypertension Fall at home Fibromyalgia Fracture of distal end of tibia with fibula Immunocompromised Long-term current use of opiate analgesic Onychodystrophy Osteoporosis Pain, joint, multiple sites Portal vein thrombosis Psoriasis PVD (peripheral vascular disease) Rheumatoid arthritis Rheumatoid arthritis Seizures Spondylosis of lumbar region without myelopathy or radiculopathy Syncope Thrombocytopenia Tobacco use disorder Transaminitis Surgical History H/O dilation and curettage Hx laparoscopic cholecystectomy Hx of section (~1989) Hx of hysterectomy S/P foot surgery Family History Mother Stroke Cancer SKIN CANCER Sister Stroke Other Diabetes Myocardial infarct Denies family history of Anesthesia complication Bleeding disorder Social History Smoking and tobacco status: current every day smoker cigarettes Years cigare ttes smoked: 40 [ Other cigarette details: 3 cigarettes/day currently] Quit status (tobacco): considering quitting Second hand smoke exposure: Yes Smoking risk assessment/counseling performed?: Yes Alcohol intake: former Substance/Drug Use: never Caregiver/support person: Yes Lives independently: Yes Household members: spouse Marital status: Current occupational status: disabled Pets and animals: Yes Do you think of yourself as: Straight/Heterosexual Current gender identity: Female Data Anesthesia 03/08/23 05:43 03/08/23 05:43 Short CBC 03/07/23 03/08/23 Range/Units 04:54 05:43 WBC 11.57 H 12.95 H (3.29-11.43) 10^3/uL Hgb 9.50 L 8.50 L (11.27-16.99) g/dL Hct 31.6 L 29.5 L (36-47) % MCV 77.6 L 79.7 L (85-98) fl Plt Count 161 157 (157-399) 10^3/cmm Neut % (Auto) 84.8 79.2 % Neut # (Auto) 9.82 H 10.28 H (1.8-7.7) 10^3/uL BMP 03/07/23 03/08/23 04:54 05:43 Sodium 132 L 136 Potassium 3.7 4.1 Chloride 100 108 H Carbon Dioxide 22 20 L BUN 20 25 H Creatinine 0.7 0.6 Glucose 169 H 60 L Calcium 8.3 L 7.5 L Liver Function 03/07/23 Range/Units 04:54 Total Bilirubin 0.5 (0.15-1.2) mg/dL AST 35 H (0-32) U/L ALT 14 (0-33) U/L Alkaline Phosphatase 311 H (35-105) U/L Albumin 3.0 L (3.5-5.2) g/dL Urine 03/07/23 Range/Units 10:48 Urine Color Yellow (Yellow) Urine Appearance Hazy A (CLEAR) Urine pH 5 (5-7) Ur Specific Ten Sleep 1.010 (1.005-1.030) Urine Protein Trace (Negative) Urine Glucose (UA) Norm (Normal) Urine Ketones Negative (Negative) Urine Nitrate Negative (Negative) Urine Bilirubin Neg (Negative) Ur Leukocyte Esterase Trace H (Negative) Urine RBC 0-4 H (0-2) /hpf Urine WBC 0-4 H (0-5) /hpf COVID Results 03/07/23 05:08 SARS-CoV-2 Ag (Rapid) negative Coags 03/07/23 03/07/23 03/08/23 04:54 04:54 05:43 ESR 47 H C-Reactive Protein 12.8 H 165.9 H Microbiology 03/07/23 10:48 Urine Culture - Preliminary Urine,Clean Catch 03/07/23 05:16 Blood Culture - Preliminary Blood NEGATIVE TO DATE 03/07/23 04:58 Blood Culture - Preliminary Blood NEGATIVE TO DATE 03/07/23 07:00 Gram Stain - Final Ankle - Right Cardiac Studies: Echocardiogram 02/24/22 Echocardiogram Limited Views 10/21/20 Echocardiogram Ultrasound 08/14/20 Sestamibi Stress Test (Cardiology) 01/24 Holter Monitor 03/31/20
--- NOTE | 2023-03-08 12:24 | P.OP_ITS ---
Operative Report Date of procedure: March 08, 2023 Pre-op diagnosis: Preop Diagnosis Wound to myofascial layer right ankle Post-op diagnosis: Osteomyelitis right ankle. Post-op findings: Infection down to bone right ankle Procedure done: Incision down to bone cortex right ankle. CPT code 60609 Implants: Wound VAC Specimens removed/disposition: Deep tissue cultures taken right ankle wound sent to microbiology for Gram stain, culture and sensitivity. Pathology: None Surgeon: Anthony Sales D.P.M. Fieldwork Coordinator: Dharmesh Estimated blood loss: 10 7 IV fluids: 0 Urine output: 0 Complications: None Findings: Wound probing to bone right anterior ankle Brief History: Erin Kelley is a 52 year old female presented to the emergency department this morning with complaints of increased pain at her right ankle and right wrist, had chills and body aches for the past 2 days with a cough.? Patient is diabetic, smokes cigarettes daily, also has rheumatoid arthritis.? Past medical history of avascular necrosis right ankle with complete collapse of the talar body, and unstable ankle unable to bear weight.? performed a right tibial talocalcaneal arthrodesis with anterior locking plate on 01/13/2023 without intraoperative complications.? Shortly after being discharged at home she fell and sustained a fracture just proximal to the locking plate of her distal tibia and fibula requiring intramedullary nailing.? Both surgeries were performed through an anterior ankle incision.? Following intramedullary nailing she had an area of dehiscence centrally corresponding to the current wound. Procedure: Under mild sedation the patient was brought to the operating room and remained on the gurney in supine position. A timeout was performed. Anesthesia was then administered by the anesthesia service. Tourniquet to the right high calf was applied well-padded. Right lower extremity was scrubbed, prepped and draped utilizing normal aseptic technique. Right foot was elevated and tourniquet inflated to 250 mmHg. Attention was directed to the anterior right ankle wound where a curette was utilized to debride devitalized tissue down to and including bone at the right anterior tibiotalar arthrodesis site. Mild purulence was encountered, deep culture of the wound was taken intraoperatively and sent to microbiology for Gram stain, culture and sensitivities. Further debridement was performed sharply with a curette of all devitalized tissue followed by irrigation with copious amounts of Staticin solution. Postdebridement wound measurements probing to bone measured 2.1 cm x 1.7 cm x 2 cm. Wound was dressed with a wound VAC with excellent seal, set at 125 mmHg negative pressure. Hose was offloaded with 4 x 4's, Kerlix and Christophe wrap. Cam boot was reapplied. Tourniquet was deflated and a prompt hyperemic response was noted to the distal digits of the right foot. Patient tolerated procedure and anesthesia well and was transferred to the PACU with vital signs stable and vascular status intact. Following a period of postop monitoring she will be transferred back to the floor to continue empiric IV antibiotics. Recommending PICC line for 6 weeks antibiotics to be administered for osteomyelitis right ankle.
--- NOTE | 2023-03-08 12:30 | ANE.PACU2 ---
Inpatient post-anesthesia follow up: Airway intact: Yes Vital signs: Temperature 97 F Pulse Rate 68 Respiratory Rate 16 Blood Pressure 100/46 Pulse Oximetry 94 Oxygen Delivery Me thod Room Air Oxygen Flow Rate 6 Fraction of Inspir ed Oxygen Hydration adequate: Yes Nausea and vomiting: No Pain level: 1 Mental status: Baseline
--- NOTE | 2023-03-08 14:25 | P.PN_ITS ---
Subjective Subjective: Patient was seen this morning she is alert oriented, her pain is under control, awaiting surgical intervention, afebrile overnight Vitals/I&O/Wt Last Vital Signs Temp 97 F L 03/08/23 12:22 Pulse 68 03/08/23 12:36 Resp 17 03/08/23 14:11 BP 100/46 03/08/23 12:36 Pulse Ox 94 03/08/23 12:36 O2 Del Method Room Air 03/08/23 12:36 O2 Flow Rate 6 03/08/23 12:33 03/07/23 03/08/23 03/08/23 22:59 06:59 14:59 Intake Total 1020 / 3800 1239.167 / 5039.167 99 / 99 Output Total 550 / 550 250 / 800 10 / 10 Balance 470 / 3250 989.167 / 4239.167 89 / 89 Weight last 48 hrs Weight 81.647 kg Physical Exam Const: COMMON NORMALS: no acute distress and patient oriented x3 Resp: COMMON NORMALS: normal respiratory effort, No retractions, No use of accessory muscles and clear to auscultation bilaterally AUSCULTATION: clear to auscultation bilaterally Cardio: COMMON NORMALS: regular rate, regular rhythm, S1 normal heart sound present and S2 normal heart sound present RATE: regular rate RHYTHM: regular rhythm HEART SOUNDS: S1 normal heart sound present and S2 normal heart sound present GI: COMMON NORMALS: Normal to inspection, nondistended, normoactive bowel sounds present and non-tender Neuro: COMMON NORMALS: patient oriented x3 Psych: COMMON NORMALS: mental status grossly normal Data 03/08/23 05:43 03/08/23 05:43 Micro: Microbiology 03/07/23 10:48 Urine Culture - Preliminary Urine,Clean Catch 03/07/23 05:16 Blood Culture - Preliminary Blood NEGATIVE TO DATE 03/07/23 04:58 Blood Culture - Preliminary Blood NEGATIVE TO DATE 03/07/23 07:00 Gram Stain - Final Ankle - Right A&P Assessment and plan (1) Sepsis: Likely secondary to right ankle wound Continue vancomycin, Zosyn Follow blood cultures Follow wound cultures Pro-Christiano, CRP, sed rate (2) Pneumonia: Currently not on any oxygen, no cough, no shortness of breath (3) Ankle wound: Dr. Sales was consulted by the ER physician Spoke to Dr. Sales, plan on debridement today (4) Dehiscence of incision: As above (5) Emphysema/COPD: Continue home medications no acute exacerbation at this time Qualifiers: Emphysema type: centrilobular Qualified Code(s): J43.2 - Centrilobular emphysema (6) Immunocompromised: Secondary to prednisone. (7) Pain, joint, multiple sites: Patient is mostly complaining of right wrist pain at this time. There is no edema erythema or warmth to the right wrist. (8) Tobacco use disorder: May have nicotine patch if desired Plan Plan for today, continue vancomycin, Zosyn, awaiting debridement of ankle wound Attestations Medical Necessity Statement*: Patient requires hospitalization and due to ankle wound, infection, requiring de bridement, IV antibiotics Diagnoses Sepsis A41.9 Pneumonia J18.9 Ankle wound S91.009A Dehiscence of incision T81.31XA Emphysema/COPD J43.2 Emphysema type: centrilobular Immunocompromised D84.9 Pain, joint, multiple sites M25.50 Tobacco use disorder F17.200
[2023-03-08 17:22] LABS: Glucose Point of Care 130 mg/dL (70-110)
[2023-03-08 18:43] LABS: Vancomycin Trough 19.1 ug/mL (10-15)
[2023-03-08 20:23] LABS: Glucose Point of Care 233 mg/dL (70-110)
[2023-03-08] MEDS: CELEcoxib 200 mg Capsule PO (20:31)
[2023-03-08] MEDS: duloxetine 30 mg Capsule PO (20:31)
[2023-03-08] MEDS: ropinirole 2 mg Tablet PO (20:31)
[2023-03-08] MEDS: ropinirole 1 mg Tablet PO (20:31)
[2023-03-08] MEDS: insulin lispro 100 unit/1 mL SUBCUT (20:32)
[2023-03-08] MEDS: efferdent effervescent 1 EACH DENTAL (23:06)
[2023-03-09] VITALS (13 sets, daily range): BP systolic 90–127; BP diastolic 59–76; PULSE 60–74; RESP 16–19; TEMP 36.4–37; O2SAT 90–97
[2023-03-09] MEDS: piperacillin-tazobactam 3.375 GM in sodium chloride 0.9% (plus) 50 ML IV ×3 (03:32→21:14)
[2023-03-09] MEDS: oxyCODONE 5 mg IR Tab/Cap 10 MG PO ×4 (03:32→17:37)
[2023-03-09 05:07] LABS: Basophils % 0.5 %; Eosinophils # 0.6 10^3/uL (0.0-0.8); Eosinophils % 7.8 %; Hematocrit 28.6 % (36-47); Lymphocytes # 1.6 10^3/uL (0.8-4.8); Lymphocytes % 19.9 %; Mean Corpuscular Hemoglobin 22.9 pg (27-33); Mean Corpuscular Volume 81.9 fl (85-98); Mean Platelet Volume 11.3 fL (7.4-10.4); Monocytes # 0.4 10^3/uL (0.2-0.9); Neutrophils # 5.46 10^3/uL (1.8-7.7); Neutrophils % 66.7 %; Nucleated Red Blood Cells % 0 %; Platelet Count 160 10^3/cmm (157-399); Red Blood Count 3.49 10^6/uL (3.85-5.65); Red Cell Distribution Width 17.4 % (12.1-15.1); White Blood Count 8.19 10^3/uL (3.29-11.43)
[2023-03-09 05:34] LABS: C Reactive Protein 158.1 mg/L (0.0-4.9)
[2023-03-09 05:43] LABS: Procalcitonin 0.26 ng/mL (0-0.5)
[2023-03-09 06:22] LABS: Glucose Point of Care 86 mg/dL (70-110)
--- NOTE | 2023-03-09 06:50 | P.PN_ITS ---
Subjective Subjective: Ms. Kelley is 1 day status post incision and debridement down to bone right ankle. Seen bedside this morning, denies any acute events overnight. Vitals/I&O/Wt Last Vital Signs Temp 98.6 F 03/09/23 04:42 Pulse 70 03/09/23 04:42 Resp 16 03/09/23 04:42 BP 122/62 03/09/23 04:42 Pulse Ox 90 03/09/23 04:42 O2 Del Method Room Air 03/08/23 20:00 O2 Flow Rate 6 03/08/23 12:33 03/08/23 03/08/23 03/09/23 14:59 22:59 06:59 Intake Total 99 / 99 730 / 829 1290 / 2119 Output Total 2150 / 2160 Balance 89 / 89 730 / 819 -860 / -41 Physical Exam Narrative: Patient is alert and oriented ?3 and in no acute distress.? The following is a focused right lower extremity exam. VASCULAR: Dorsalis pedis and posterior tibial arteries palpable.? Capillary refill time less than 3 seconds to the distal hallux bilaterally. Calf is supple and nontender proximally and distally.? Decreased hair growth at the legs and feet.? Focal edema to the right ankle. NEUROLOGICAL: Protective sensation intact 7/10 sites tested with [place] monofilament bilaterally.? Erythema and warmth to the right ankle. DERMATOLOGICAL: Wound VAC dressing intact to the right anterior ankle with excellent seal. Continuous Negative pressure at 125 mmHg. 50 mL of serosan guineous drainage in the canister. No periwound erythema or proximal streaking visualized from the dressing. MUSCULOSKELETAL: Mild tenderness of the right ankle globally.? Able to wiggle toes on command.? No pain with posterior calf squeeze bilaterally. Data 03/09/23 04:15 03/08/23 05:43 Micro: Microbiology 03/08/23 12:09 Gram Stain - Final Ankle - #1 03/07/23 07:00 Gram Stain - Final Ankle - Right Wound Culture - Preliminary Gram Negative Rods 03/07/23 10:48 Urine Culture - Preliminary Urine,Clean Catch 03/07/23 05:16 Blood Culture - Preliminary Blood NEGATIVE TO DATE 03/07/23 04:58 Blood Culture - Preliminary Blood NEGATIVE TO DATE A&P Assessment and plan (1) Dehiscence of incision: Qualifiers: Encounter type: subsequent encounter Qualified Code(s): T81.31XD - Disruption of external operation (surgical) wound, not elsewhere classified, subsequent encounter (2) Rheumatoid arthritis: Qualifiers: Rheumatoid arthritis location: unspecified site Rheumatoid factor presence: unspecified presence Qualified Code(s): M06.9 - Rheumatoid arthritis, unspecified (3) Diabetic peripheral neuropathy associated with type 2 diabetes mellitus: (4) 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 Past medical history of insulin- dependent diabetes and rheumatoid arthritis, she is immunocompromised. 2 cultures were taken during his hospitalization. First culture on 03/07/2023, swab culture of the right ankle taken at admission showing gram-negative rods and positive cocci in pairs, Sensitivities pending. Surgical culture of deep tissue taken 03/08/2023 also pending, thus far showing gram-positive cocci in pairs She is 1 day status post incision and debridement down to bone cortex right ankle date of operation 03/08/2023 Wound VAC is intact, planning on home health changing wound VAC 3 times weekly Strict nonweightbearing right lower extremity Antibiotic selection once cultures yield further information, will discuss with infectious disease for recommendations PICC line is in place, planning on 6 weeks of IV antibiotics. I will be seeing her in clinic weekly, trending labs and will be monitoring PICC line. Patient is okay for discharge from podiatry standpoint once antibiotic plan is in place. No further surgical intervention anticipated during this hospitalization. 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
[2023-03-09] MEDS: aspirin 81 mg EC Tablet PO (08:43)
[2023-03-09] MEDS: isosorbide mononitrate ER 30 mg Tablet PO ×2 (08:43→17:37)
[2023-03-09] MEDS: gabapentin 300 mg Capsule 900 MG PO ×3 (08:43→21:14)
[2023-03-09] MEDS: apixaban 5 mg Tablet PO ×2 (08:43→17:37)
[2023-03-09] MEDS: tamsulosin 0.4 mg Capsule PO (08:43)
[2023-03-09] MEDS: metoprolol tartrate 25 mg Tablet PO ×2 (08:43→17:37)
[2023-03-09] MEDS: lisinopril 10 mg Tablet PO (08:44)
[2023-03-09] MEDS: sertraline 100 mg Tablet PO (08:44)
[2023-03-09] MEDS: nicotine 14 mg Patch 1 PATCH TRANSDERMA (08:44)
[2023-03-09] MEDS: atorvastatin 40 mg Tablet 80 MG PO (08:44)
[2023-03-09] MEDS: sodium chloride 0.9% 1,000 ML 50 ML IV (08:49)
[2023-03-09 09:00] LABS: Blood Urea Nitrogen 14 mg/dL (6-20); Calcium 7.8 mg/dL (8.5-10.5); Carbon Dioxide 17 mmol/L (22-29); Chloride 110 mmol/L (98-107); Glomerular Filtration Rate 128.6 mL/min (90-130); Glucose 82 mg/dL (65-115); Osmolality Calculated 282 mOsm/kg (285-295); Sodium 136 mmol/L (136-145)
--- NOTE | 2023-03-09 09:32 | XR_ITS ---
WS: [id number] Exam: XR chest 1V portable [id number] Date/Time of Exam: 03/09/2023 10:38 AM Reason For Exam: Post PICC insertion Comparison 03/07/2023. A a left-sided PICC line has been placed with the ends in the lower one third of the SVC. Lungs are f ully expanded. Mild infiltrate in the RIGHT lower lung zone unchanged. Cardiomediastinal silhouette i s unremarkable for technique. No pleural effusion. No pneumothorax. Several old RIGHT rib fractures. IMPRESSION: 1. Left-sided PICC line ending in the lower one third of the SVC in satisfactory position. 2. Diffuse infiltrate in the RIGHT lower lung unchanged.
--- NOTE | 2023-03-09 10:30 | PC.NURSE ---
Single lumen PICC placed. Referred for PICC placement for IV Vancomycin x 6 weeks. Risks and benefits discussed and informed consent obtained from patient. Pt requests PICC to be placed in non-dominant left arm. Left arm assessed. Left basilic vein noted to be 4 mm, straight, and apparent best choice for placement. Using sterile technique and MST, basilic vein accessed x 1 stick. Mid-arm circumference measured 10 cm from left AC 31 cm. Trimmed cath 46 cm with 0 cm external length noted. CXR shows tip in lower third of SVC, in good position for use per radiologist. Line secured with stat-lock. Insertion site covered with Biopatch ant TSM. Report given to charge nurseQiana.
[2023-03-09 11:04] LABS: Glucose Point of Care 192 mg/dL (70-110)
[2023-03-09] MEDS: CELEcoxib 200 mg Capsule PO (11:35)
[2023-03-09] MEDS: insulin lispro 100 unit/1 mL SUBCUT ×3 (11:35→21:14)
[2023-03-09] MEDS: acetaminophen 325 mg Tablet 650 MG PO (16:00)
--- NOTE | 2023-03-09 16:03 | PM.PN ---
Vitals/I&O/Wt Last Vital Signs Temp 97.9 F 03/09/23 11:19 Pulse 67 03/09/23 11:19 Resp 16 03/09/23 13:14 BP 127/74 03/09/23 11:19 Pulse Ox 94 03/09/23 11:19 O2 Del Method Room Air 03/09/23 08:26 O2 Flow Rate 6 03/08/23 12:33 03/09/23 03/09/23 03/09/23 06:59 14:59 22:59 Intake Total 1290 / 2119 530 / 530 Output Total 2150 / 2160 Balance -860 / -41 530 / 530 Physical Exam Const: COMMON NORMALS: no acute distress and patient oriented x3 Resp: COMMON NORMALS: normal respiratory effort, No retractions, No use of accessory muscles and clear to auscultation bilaterally AUSCULTATION: clear to auscultation bilaterally Cardio: COMMON NORMALS: regular rate, regular rhythm, S1 normal heart sound present and S2 normal heart sound present RATE: regular rate RHYTHM: regular rhythm HEART SOUNDS: S1 normal heart sound present and S2 normal heart sound present GI: COMMON NORMALS: Normal to inspection, nondistended, normoactive bowel sounds present and non-tender Extremity: COMMON NORMALS: no pedal edema Neuro: COMMON NORMALS: patient oriented x3 Psych: COMMON NORMALS: mental status grossly normal Data 03/09/23 04:15 03/09/23 04:15 Micro: Microbiology 03/07/23 10:48 Urine Culture - Final Urine,Clean Catch 03/08/23 12:09 Gram Stain - Final Ankle - #1 03/07/23 07:00 Gram Stain - Final Ankle - Right Wound Culture - Preliminary Gram Negative Rods A&P Assessment and plan (1) Sepsis: Likely secondary to right ankle wound, s/p debridement down to the bone -Does have hardware in place Continue vancomycin, Zosyn Follow blood cultures Follow wound cultures Pro-Christiano, CRP, sed rate will speak to id (2) Pneumonia: Currently not on any oxygen, no cough, no shortness of breath (3) Ankle wound: Dr. Sales was consulted by the ER physician Spoke to Dr. Sales, plan on debridement today (4) Dehiscence of incision: As above Qualifiers: Encounter type: subsequent encounter Qualified Code(s): T81.31XD - Disruption of external operation (surgical) wound, not elsewhere classified, subsequent encounter (5) Emphysema/COPD: Continue home medications no acute exacerbation at this time Qualifiers: Emphysema type: centrilobular Qualified Code(s): J43.2 - Centrilobular emphysema (6) Immunocompromised: Secondary to prednisone. (7) Pain, joint, multiple sites: Patient is mostly complaining of right wrist pain at this time. There is no edema erythema or warmth to the right wrist. (8) Tobacco use disorder: May have nicotine patch if desired Plan Plan for today, continue vancomycin, Zosyn, picc line to be placed, will speak to id Attestations Medical Necessity Statement*: Patient requires hospitalization for right ankle wound, status postdebridement, wound washout, requiring IV antibiotics, PICC line placement, Diagnoses Sepsis A41.9 Pneumonia J18.9 Ankle wound S91.009A Dehiscence of incision T81.31XD Encounter type: subsequent encounter Emphysema/COPD J43.2 Emphysema type: centrilobular Immunocompromised D84.9 Pain, joint, multiple sites M25.50 Tobacco use disorder F17.200
[2023-03-09 17:13] LABS: Glucose Point of Care 194 mg/dL (70-110)
[2023-03-09] MEDS: vancomycin 1,500 MG/300 ML PIGGYBACK 200 MG IV (19:32)
[2023-03-09 21:10] LABS: Glucose Point of Care 233 mg/dL (70-110)
[2023-03-09] MEDS: ropinirole 1 mg Tablet PO (21:14)
[2023-03-09] MEDS: ropinirole 2 mg Tablet PO (21:14)
[2023-03-09] MEDS: duloxetine 30 mg Capsule PO (21:14)
[2023-03-10] VITALS (11 sets, daily range): BP systolic 92–126; BP diastolic 47–74; PULSE 60–66; RESP 16–18; TEMP 36.4–36.7; O2SAT 95–99
[2023-03-10] MEDS: oxyCODONE 5 mg IR Tab/Cap 10 MG PO ×2 (00:50→13:26)
[2023-03-10] MEDS: CELEcoxib 200 mg Capsule PO (00:51)
[2023-03-10] MEDS: piperacillin-tazobactam 3.375 GM in sodium chloride 0.9% (plus) 50 ML IV (03:23)
[2023-03-10] MEDS: sodium chloride 0.9% 1,000 ML 50 ML IV (03:53)
[2023-03-10 06:20] LABS: Basophils % 0.7 %; Eosinophils # 0.6 10^3/uL (0.0-0.8); Eosinophils % 9.5 %; Hematocrit 30.9 % (36-47); Lymphocytes # 1.3 10^3/uL (0.8-4.8); Lymphocytes % 20.7 %; Mean Corpuscular HGB Conc 27.5 g/dL (30-55); Mean Corpuscular Hemoglobin 22.5 pg (27-33); Mean Platelet Volume 11.1 fL (7.4-10.4); Monocytes # 0.2 10^3/uL (0.2-0.9); Monocytes % 3.9 %; Neutrophils # 3.95 10^3/uL (1.8-7.7); Nucleated Red Blood Cells % 0 %; Platelet Count 169 10^3/cmm (157-399); Red Blood Count 3.77 10^6/uL (3.85-5.65); Red Cell Distribution Width 17.4 % (12.1-15.1); White Blood Count 6.08 10^3/uL (3.29-11.43)
[2023-03-10 06:34] LABS: Glucose Point of Care 337 mg/dL (70-110)
[2023-03-10 06:34] LABS: Glucose Point of Care 315 mg/dL (70-110)
[2023-03-10 06:37] LABS: C Reactive Protein 83.2 mg/L (0.0-4.9)
[2023-03-10 06:40] LABS: Anion Gap 13.8 (5-19); Blood Urea Nitrogen 11 mg/dL (6-20); Calcium 7.9 mg/dL (8.5-10.5); Carbon Dioxide 18 mmol/L (22-29); Chloride 109 mmol/L (98-107); Glomerular Filtration Rate 128.6 mL/min (90-130); Glucose 298 mg/dL (65-115); Osmolality Calculated 292 mOsm/kg (285-295); Potassium 4.8 mmol/L (3.5-5.1); Sodium 136 mmol/L (136-145)
[2023-03-10 06:46] LABS: Procalcitonin 0.13 ng/mL (0-0.5)
[2023-03-10] MEDS: metoprolol tartrate 25 mg Tablet PO (08:21)
[2023-03-10] MEDS: aspirin 81 mg EC Tablet PO (08:21)
[2023-03-10] MEDS: tamsulosin 0.4 mg Capsule PO (08:21)
[2023-03-10] MEDS: apixaban 5 mg Tablet PO (08:21)
[2023-03-10] MEDS: isosorbide mononitrate ER 30 mg Tablet PO (08:21)
[2023-03-10] MEDS: lisinopril 10 mg Tablet PO (08:21)
[2023-03-10] MEDS: gabapentin 300 mg Capsule 900 MG PO (08:22)
[2023-03-10] MEDS: atorvastatin 40 mg Tablet 80 MG PO (08:22)
[2023-03-10] MEDS: insulin lispro 100 unit/1 mL SUBCUT ×2 (08:22→11:56)
[2023-03-10] MEDS: docusate sodium 100 mg Capsule PO (08:22)
[2023-03-10] MEDS: nicotine 14 mg Patch 1 PATCH TRANSDERMA (08:23)
[2023-03-10] MEDS: insulin glargine 100 units/1 mL 50 UNIT SUBCUT (08:33)
[2023-03-10] MEDS: sertraline 100 mg Tablet PO (08:59)
--- NOTE | 2023-03-10 11:06 | P.CONIM_ITS ---
Providers/Reason For Consult Consulting Physician/Specialty*: Georgia Joseph MD/ Infectious Disease Reason for Consult*: osteomyelitis/hardware infection Requesting Physician: Jaydon Lane MD Attending Physician: Jaydon Lane MD Primary Care Provider: Nel Peacock MD History of Present Illness History of Present Illness Erin Kelley is a 52 year old female with seropositive RA with h/o charcot joint and AVN on prednisone and orencia. She presented to the hospital on 03/07 with complaints of increased pain at her right ankle and right wrist, had chills and body aches. recent history is notable for avascular necrosis right ankle with complete collapse of the talar body, and unstable ankle unable to bear weight.?s/p right tibial talocalcaneal arthrodesis with anterior locking plate on 01/13/2023 without intraoperative complications.? Shortly after being discharged at home she fell and sustained a fracture just proximal to the locking plate of her distal tibia and fibula requiring intramedullary nailing.? This was followed by an area of dehiscence centrally. She underwent I&D of the [facility] ankle on 03/08/23.Intraoperatively she was found to have osteomyelitis of the right ankle. Mild purulence was encountered intraoperatively. Deep wound cultures were taken which is showing showing rare gram piositive cocci in pairs awaiting further identification. Prior non- OR wound cx showed GNR and group b strep. Review of Systems General: Reports: 10 or more systems reviewed and unremarkable except in HPI and below Const: Denies: fever(s), chills or body aches Eyes: Denies: change in vision, blurry vision or photophobia ENMT: Reports: hoarseness; Denies: throat pain, enlarged tonsils, odynophagia or nasal congestion Card: Denies: chest pain, palpitations, irregular heart rhythm, edema, swelling of feet/ankles, lightheadedness, pre-syncope, dyspnea on exertion or orthopnea Resp: Denies: dyspnea, productive cough, non-productive cough, wheezing, stri minnie, pain on inspiration, change in phlegm color, hemoptysis or chest congestion GI: Denies: abdominal pain, nausea, vomiting, hematemesis, coffee ground emesis, dysphagia, heartburn, diarrhea, constipation, GI cramping, change in stool character, hematochezia or melena : Denies: flank pain, difficulty voiding, dysuria, urinary frequency, urinary urgency, urinary hesitancy or hematuria Musc: Denies: neck pain, back pain, extremity pain, joint swelling, joint warmth or deformity Neuro: Denies: headache(s), numbness in extremities, weakness in extremities, sensory changes, difficulty walking, frequent falls, dizziness, vertigo, behavioral changes, Slurred speech present or seizure-like activity Psych: Denies: anxiety, depression, suicidal ideation or homicidal ideation Endo: Denies: polyuria, polydipsia, tired all the time, cold intolerance or hot flashes Jewel/Lymph: Denies: easy bruising or easy bleeding Medications/Allergies Home Medications Medication Instructions Recorded Confirmed Last Taken Type rosuvastatin 20 mg tablet (Crestor) 20 mg PO QAM 09/04/19 03/07/23 01/12/23 History omeprazole 40 mg capsule,delayed 40 mg PO QAM 09/05/19 03/07/23 01/13/23 History release nitroglycerin 0.4 mg sublingual 0.4 mg sublingual Q5M PRN chest 09/09/19 03/07/23 Unknown Rx tablet (Nitrostat) pain 30 days #25 tabs epinephrine 0.3 mg/0.3 mL See Rx Instructions .Route 11/01/19 03/07/23 Unknown History injection, auto-injector (EpiPen .COMPLEX PRN Allergic Reaction 2-Carrington) glucagon HCl 1 mg solution for 1 mg SUBCUT Q20M PRN blood sugar 11/01/19 03/07/23 Unknown History injection (Glucagon (HCl) ##0 Emergency Kit) insulin aspart U-100 100 unit/mL See Rx Instructions .Route .COMPLEX 11/01/19 03/07/23 01/12/23 08:00 History (3 mL) subcutaneous pen (Novolog FlexPen U-100 Insulin aspart) albuterol sulfate 2.5 mg/3 mL 2.5 mg inhalation Q6H PRN 04/01/20 03/07/23 12/14/22 History (0.083 %) solution for nebulization Shortness Of Breath aspirin 81 mg tablet,delayed 81 mg PO DAILY@0800 08/15/20 03/07/23 01/08/23 History release melatonin 3 mg capsule 3 mg PO BEDTIME 09/04/20 03/07/23 01/12/23 History apixaban 5 mg tablet (Eliquis) 5 mg PO BID 11/24/20 03/07/23 01/08/23 History tamsulosin 0.4 mg capsule (Flomax) 0.4 mg PO BEDTIME 05/22/21 03/07/23 01/12/23 History prednisone 5 mg tablet 5 mg PO DAILY PRN FLARES #60 tabs 02/14/22 03/07/23 Unknown Rx abatacept 125 mg/mL subcutaneous 125 mg SUBCUT .qweek #4 mL 07/29/22 03/07/23 1 Week Ago Rx syringe (Orencia) ~01/07/23 alprazolam 0.25 mg tablet 0.25 mg PO DAILY PRN anxiety 09/16/22 03/07/23 01/12/23 History ipratropium 20 mcg-albuterol 100 1 puff inhalation Q6H PRN 10/17/22 03/07/23 01/12/23 Rx mcg/actuation mist for inhalation Shortness Of Breath #4 grams (Combivent Respimat) Scot Boykin #1 ea 11/11/22 03/07/23 Unknown Rx isosorbide mononitrate 30 mg 15 mg PO BID 01/12/23 03/07/23 01/13/23 History tablet,extended release 24 hr sertraline 100 mg tablet (Zoloft) 100 mg PO QAM 01/12/23 03/07/23 01/12/23 History JANAK BOYKIN #1 ea 03/01/23 03/07/23 Unknown Rx acetaminophen 500 mg tablet 1,000 mg PO Q12H PRN Pain 03/07/23 03/07/23 Unknown History albuterol sulfate 90 mcg/actuation 2 puff inhalation BID PRN 03/07/23 03/07/23 Unknown History aerosol inhaler (Ventolin HFA) Shortness Of Breath docusate sodium 100 mg capsule 100 mg PO BID PRN Constipation 03/07/23 03/07/23 Unknown History (Colace) ergocalciferol (vitamin D2) 1,250 50,000 unit PO Q7D 03/07/23 03/07/23 Unknown History mcg (50,000 unit) capsule (Vitamin D2) folic acid 1 mg tablet 1 mg PO QAM 03/07/23 03/07/23 Unknown History guaifenesin 600 mg tablet, 600 mg PO Q12H PRN Congestion 03/07/23 03/07/23 Unknown History extended release 12 hr (Mucinex) magnesium hydroxide 400 mg/5 mL 30 ml PO DAILY PRN Constipation 03/07/2303/07 Unknown History oral suspension (Milk of Magnesia) ropinirole 3 mg tablet 3 mg PO BEDTIME 03/07/23 03/07/23 Unknown History vitamin B complex 1 tab PO DAILY 03/07/23 03/07/23 Unknown History ertapenem 1 gram solution for 1 g IV Q24H 40 days #10 ea 03/10/23 Unknown Rx injection gabapentin 600 mg tablet 900 mg PO TID 30 days #135 tabs 03/10/23 Unknown Rx insulin glargine 100 unit/mL 50 unit (0.5 mL) SUBCUT DAILY@0800 03/10/23 Unknown Rx subcutaneous solution #10 mL metoprolol tartrate 25 mg tablet 25 mg PO BID 30 days #60 tabs 03/10/23 Unknown Rx oxycodone 10 mg tablet 10 mg PO Q6H PRN pain 7 days #28 03/10/23 Unknown Rx tabs Allergies Allergy/AdvReac Type Severity Reaction Status Date / Time bee venom protein (honey bee) Allergy ALGY-Anaphy Verified 03/07/23 04:51 laxis Current Medications Generic Name Dose Route Start Last Admin Trade Name Freq PRN Reason Stop Dose Admin Acetaminophen 650 mg 03/07/23 07:29 03/09/23 16:00 Acetaminophen 325 Mg Tablet PO 650 mg Q6H PRN Administration Mild/Mod Pain Or Temp >/= 101 Alprazolam 0.25 mg 03/07/23 07:33 03/07/23 19:29 Alprazolam 0.5 Mg Tablet PO 0.25 mg DAILY PRN Administration anxiety Apixaban 5 mg 03/07/23 09:00 03/10/23 08:21 Apixaban 5 Mg Tablet PO 5 mg BID PHONG Administration Aspirin 81 mg 03/07/23 08:00 03/10/23 08:21 Aspirin 81 Mg Ec Tablet PO 81 mg DAILY@0800 PHONG Administration Atorvastatin Calcium 80 mg 03/07/23 09:00 03/10/23 08:22 Atorvastatin 40 Mg Tablet PO 80 mg DAILY PHONG Administration Celecoxib 200 mg 03/07/23 08:20 03/10/23 00:51 Celecoxib 200 Mg Capsule PO 200 mg Q12H PRN Administration MODERATE pain Denture Adhesive 1 each 03/08/23 22:53 03/08/23 23:06 Efferdent Effervescent DENTAL 1 each PRN PRN Administration Denture ware cleaner Dextrose 50 ml 03/07/23 07:39 03/08/23 09:08 Dextrose 50% Syringe 50 Ml IVP 50 ml PRN PRN Administration hypoglycemia protocol Protocol Docusate Sodium 100 mg 03/07/23 09:00 03/10/23 08:22 Docusate Sodium 100 Mg Capsule PO 100 mg BID PHONG Administration Duloxetine HCl 30 mg 03/07/23 21:00 03/09/23 21:14 Duloxetine 30 Mg Capsule PO 30 mg DAILY@2100 PHONG Administration Gabapentin 900 mg 03/07/23 09:00 03/10/23 08:22 Gabapentin 300 Mg Capsule PO 900 mg TID PHONG Administration Sodium Chloride 1,000 mls @ 50 mls/hr 03/07/23 07:30 03/10/23 03:53 Sodium Chloride 0.9% IV 50 mls/hr .Q20H PHONG Administration Insulin Glargine 50 unit 03/07/23 08:00 03/10/23 08:33 Insulin Glargine 100 Units/1 Ml SUBCUT 50 unit DAILY@0800 PHONG Administration Insulin Human Lispro 0 unit 03/07/23 21:00 03/09/23 21:14 Insulin Lispro 100 Unit/1 Ml SUBCUT 4 unit BEDTIME PHONG Administration Protocol Insulin Human Lispro 0 unit 03/07/23 08:00 03/10/23 08:22 Insulin Lispro 100 Unit/1 Ml SUBCUT 12 unit TIDWM PHONG Administration Protocol Isosorbide Mononitrate 30 mg 03/07/23 09:00 03/10/23 08:21 Isosorbide Mononitrate Er 30 Mg Tablet PO 30 mg BID PHONG Administration Lisinopril 10 mg 03/07/23 09:00 03/10/23 08:21 Lisinopril 10 Mg Tablet PO 10 mg DAILY PHONG Administration Metoprolol Tartrate 25 mg 03/07/23 09:00 03/10/23 08:21 Metoprolol Tartrate 25 Mg Tablet PO 25 mg BID PHONG Administration Nicotine 1 patch 03/07/23 09:00 03/10/23 08:23 Nicotine 14 Mg Patch TRANSDERMA 1 patch DAILY PHONG Administration Non-Formulary Medication 1 applic 03/07/23 09:00 03/10/23 08:56 Fluocinonide TOPICAL Not Given BID PHONG Oxycodone HCl 10 mg 03/07/23 07:49 03/10/23 00:50 Oxycodone 5 Mg Ir Tab/Cap PO 10 mg Q4H PRN Administration SEVERE PAIN Ropinirole HCl 2 mg 03/07/23 21:00 03/09/23 21:14 Ropinirole 2 Mg Tablet PO 2 mg BEDTIME PHONG Administration Ropinirole HCl 1 mg 03/07/23 21:00 03/09/23 21:14 Ropinirole 1 Mg Tablet PO 1 mg BEDTIME PHONG Administration Sertraline HCl 100 mg 03/07/23 09:00 03/10/23 08:59 Sertraline 100 Mg Tablet PO 100 mg DAILY PHONG Administration Tamsulosin HCl 0.4 mg 03/07/23 09:00 03/10/23 08:21 Tamsulosin 0.4 Mg Capsule PO 0.4 mg DAILY PHONG Administration PFSH Acute PFSH: Medical History Acute gout of right ankle Avulsion fracture of left ankle Cervical spondylosis Chronic anticoagulation Cigarette smoker motivated to quit Claudication Closed fracture of right distal fibula Closed fracture of right distal fibula Closed fracture of right distal tibia Closed right ankle fracture COVID-19 DDD (degenerative disc disease), cervical Diabetes Emphysema/COPD Essential hypertension Fall at home Fibromyalgia Fracture of distal end of tibia with fibula Immunocompromised Long-term current use of opiate analgesic Onychodystrophy Osteoporosis Pain, joint, multiple sites Portal vein thrombosis Psoriasis PVD (peripheral vascular disease) Rheumatoid arthritis Rheumatoid arthritis Seizures Spondylosis of lumbar region without myelopathy or radiculopathy Syncope Thrombocytopenia Tobacco use disorder Transaminitis Surgical History H/O dilation and curettage Hx laparoscopic cholecystectomy Hx of section (~1989) Hx of hysterectomy S/P foot surgery Family History Mother Stroke Cancer SKIN CANCER Sister Stroke Other Diabetes Myocardial infarct Denies family history of Anesthesia complication Bleeding disorder Social History Smoking and tobacco status: current every day smoker cigarettes Years cigarettes smoked: 40 [ Other cigarette details: 3 cigarettes/day currently] Quit status (tobacco): considering quitting Second hand smoke exposure: Yes Smoking risk assessment/counseling performed?: Yes Alcohol intake: former Substance/Drug Use: never Caregiver/support person: Yes Lives independently: Yes Household members: spouse Marital status: Current occupational status: disabled Pets and animals: Yes Do you think of yourself as: Straight/Heterosexual Current gender identity: Female Vitals/I&O/Wt Last Vital Signs Temp 98.0 F 03/10/23 10:50 Pulse 66 03/10/23 10:50 Resp 16 03/10/23 10:50 BP 126/73 03/10/23 10:50 Pulse Ox 99 03/10/23 10:50 O2 Del Method Room Air 03/10/23 10:50 O2 Flow Rate 6 03/08/23 12:33 03/09/23 03/10/23 03/10/23 22:59 06:59 14:59 Intake Total 470 / 1000 1003.333 / 2002.333 50 / 50 Balance 470 / 1000 1003.333 / 2002.333 50 / 50 Physical Exam Narrative: General: No acute distress, AO x3 HEENT: PERRLA, pupils bilaterally equal and reactive, pallors not present Chest: Normal vesicular breath sounds, no added sounds, equal good air entry bilaterally CVS: S1-S2 regular, no murmurs, no tachycardia, no gallops, no rubs Abdomen: Soft, nontender, no organomegaly, bowel sounds present Neuro: No focal deficits, no facial deformity, AO x3, power 5/5 in all limbs Extremities:surgical dressing in place, not opened for exam Data 03/10/23 05:46 03/10/23 05:46 Micro: Microbiology Spec #: [id number] Amber: 03/08/23-120 Status: RES Req #: [id number] Recd: 03/08/23-[address]: Anthony SalesM Src: Ankle SpDesc: #1 Ordered: WC and GS Comments: Comment RIGHT FOOT DEEP WOUND CULTURE (from OR) Procedure Result Verified Site Gram Stain Final 03/08/23-1800 Result MODERATE WHITE BLOOD CELLS RARE GRAM POSITIVE COCCI IN PAIRS Wound Culture Preliminary 03/09/23-1814 DAY 1, RESULTS TO FOLLOW Spec #: [id number] Amber: 03/08/231209 Status: RES Req #: [id number] Recd: 03/08/[address]: Anthony Sales DPM Src: Foot SpDesc: #1 Ordered: Anaer (from OR) Procedure Result Verified Site Anaerobic Culture Preliminary 03/09/23 NO ANAEROBES ISOLATED ON DAY 1 JOHNIE: Erin Kelley LOC: [facility] U #: [id number] AGE/SX: 52/F ROOM: [facility] RE03/07/[address]: Jaydon Lane MD : 1970 BED: 2 DIS: FAX #: STATUS: ADM IN TLOC: Spec #: [id number] Amber: 03/07/23 Status: RES Req #: [id number] Recd: 03/07/[address]: Anthony Sales DPM Src: Ankle SpDesc: Right Ordered: WC and GS (NOT OR) Procedure Result Verified Site Gram Stain Final 03/07/23 Result RARE WHITE BLOOD CELLS FEW GRAM NEGATIVE RODS RARE GRAM POSITIVE COCCI IN PAIRS Wound Culture Preliminary 03/09/23-190 Organism 1 Gram Negative Rods Growth MODERATE Organism 2 Strep agalactiae - (group b) Growth MODERATE Strep Typing Strep Typing FEW MIXED SUPERFICIAL MOUNIKA ON DAY 2 RESULTS TO FOLLOW STREPTOCOCCUS AGALACTIAE ( GROUP B STREP) IS UNIVERSALLY SUSCEPTIBLE TO AMPICILLIN. ISOLATE WILL BE KEPT FOR 7 DAYS IF SUSCEPTIBILITY TESTING NEEDED. Wound Culture Preliminary (changed) 03/08/23-153 Organism 1 Gram Negative Rods Growth MODERATE FEW MIXED SUPERFICIAL MOUNIKA ON DAY 1 RESULTS TO FOLLOW Spec #: [id number] Amber: 03/07/23 Status: RES Req #: [id number] Recd: 03/07/[address]: Annamaria Perez MD Src: Blood SpDesc: Ordered: Bcult Procedure Result Verified Site Blood Culture Preliminary 03/08/23 NEGATIVE TO DATE Blood Culture Preliminary (changed) 03/07/23 SPECIMEN COLLECTED Spec #: [id number] Amber: 03/07/23 Status: RES Req #: [id number] Recd: 03/07/[address]: Annamaria Perez MD Src: Blood SpDesc: Ordered: Bcult Procedure Result Verified Site Blood Culture Preliminary 03/08/23 NEGATIVE TO DATE Blood Culture Preliminary (changed) 03/07/23 SPECIMEN COLLECTED Spec #: [id number] Amber: 01/18/23- Status: COMP Req #: [id number] Recd: 01/18/[address]: Georgia Joseph MD Src: Nose SpDesc: Ordered: MRSA PCR Procedure Result Verified Site MRSA by PCR Final 01/18/23 NO MRSA DNA DETECTED Other data: Ordering Provider/Ordering MD: Annamaria Perez MD Date of Service: 03/07/23 Procedure(s): CT ankle RT w con [id number] Accession Number(s): [id number] Report Number: [id number] ADDENDUM Addendum Dictated By: ? Addendum Signed By: ? Signed Date/Time: Addendum Cosigned By: ?Rik Nick MD 03/07/23624 ADDENDUM Addendum Dictated By: ? Addendum Signed By: ? Signed Date/Time: Addendum Cosigned By: ?Rik Nick MD 03/07/[address]/CT ankle RT w con [id number] THIS REPORT CONTAINS FINDINGS THAT MAY BE CRITICAL TO PATIENT CARE. The findings were verbally communicated via telephone conference with Dr Bello at 6:22 AM CDT on 03/07/2023. The findings were acknowledged and understood. ? Addendum Dictated By: ?Rik Nick MD Addendum Signed By: ?Rik Nick MD Signed Date/Time: 03/07/23624 Addendum Cosigned By: ? ADDENDUM CT/CT ankle RT w con [id number] A poorly defined 3.1 by 0.8 by 0.7 cm soft tissue fluid collection is identified anterior to the distal tibia (series 22: Image 28 and series 20: Image 68), which would be worrisome for developing soft tissue abscess. ? Addendum Dictated By: ?Rik Nick MD Addendum Signed By: ?Rik Nick MD Signed Date/Time: 03/07/23622 Addendum Cosigned By: ? PROCEDURE INFORMATION: Exam: CT Right Lower Extremity With Contrast, Ankle Exam date and time: 03/07/2023 5:46 AM Age: 52 years old Clinical indication: Pain; Right; Prior surgery; Surgery date: 1-6 months; Surgery type: Ankle ortho; Patient HX: Wound to anterior ankle, fever; Additional info: Ankle pain TECHNIQUE: Imaging protocol: CT of the right lower extremity with intravenous contrast was performed. Exam focused on the ankle. Radiation optimization: All CT scans at this facility use at least one of these dose optimization techniques: automated exposure control; mA and/or kV adjustment per patient size (includes targeted exams where dose is matched to clinical indication); or iterative reconstruction. Contrast material: OMNI 350; Contrast volume: 100 ml; Contrast route: INTRAVENOUS (IV);? REPORTING DATA: Count of CT and Cardiac NM exams in prior 12 months: This patient has received 3 known CTs and 0 known cardiac nuclear medicine studies in the 12 months prior to the current study. COMPARISON: MR ankle RT wo con* [id number] 12/07/2022 8:42 AM RADIATION DOSE METRICS: Total DLP (mGy-cm): 190.2 FINDINGS: Bones/joints: Surgical hardware transfixing distal tibial diaphyseal fracture, with fracture lines well visualized. Incomplete healing of distal fibular diaphyseal fracture. Surgical ankylosis of the hindfoot with prominent beam hardening artifact in association with surgical hardware. If underlying osteomyelitis is of clinical concern, correlation with three-phase radionuclide bone scan or MRI can be performed for improved characterization, as clinically indicated. Osteopenia and degenerative change. Multiple well corticated ossific densities. Soft tissues: Prominent soft tissue swelling and subcutaneous edema, along with multifocal soft tissue calcifications. Anterior soft tissue ulceration. CT/CT ankle RT w con [id number] IMPRESSION: 1. Incomplete healing of distal tibial and fibular diaphyseal fractures. 2. Prominent soft tissue swelling and subcutaneous edema, along with multifocal soft tissue calcifications and anterior soft tissue ulceration.? 3. Additional findings, as described above. ? 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 Status post I&D on March 08, 2023. Intraoperatively pus encountered.. Findings of osteomyelitis of the right ankle with infection down to the bone. Deep tissue cultures were taken and sent on this date. Thus far Gram stain is showing gram-positive cocci in chains. Awaiting final culture results . Wound cultures taken on the day of admission are showing gram-negative rods and group B streptococcus. Patient's fevers have now improved. On day of admission she was febrile to 103 Fahrenheit, now afebrile since 03/08. Leukocytosis resolved. Inpatient she has been on treatment with Zosyn and vancomycin. Recommend discharge with ertapenem 1 g IV every 24 hours while awaiting final culture results. Currently no evidence of MRSA or Pseudomonas on cultures. Gram-negative pinky preliminary appears to be Enterobacter however will await final speciation. Total duration of treatment recommended to be 6 weeks (03/08-04/19) While on the above antibiotics to obtain weekly labs including CBC CMP and CRP. Picc line has been placed to facilitate above Follow-up with ID clinic in 1 month. In the interim continue follow-up with podiatry as recommended. 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
--- NOTE | 2023-03-10 11:17 | PC.NURSE ---
FOLLOW UP APPOINTMENT MADE WITH PHOTOGRAPHIC SUPERVISOR DUE TO PCP BEING OUT OF OFFICE NEXT WEEK AND OFFICE IS CLOSED MONDAY DUE TO HOLIDAY.
--- NOTE | 2023-03-10 11:22 | P.DS_ITS ---
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: Status: Acute (2) Chronic ulcer of right ankle with necrosis of muscle: Status: Acute (3) Diabetic peripheral neuropathy associated with type 2 diabetes mellitus: Status: Acute (4) Dehiscence of incision: Status: Acute Qualifiers: Encounter type: subsequent encounter Qualified Code(s): T81.31XD - Disruption of external operation (surgical) wound, not elsewhere classified, subsequent encounter Reason for Visit Reason for Visit: LEG AND WRIST PAIN Hospital Course Hospital Course Erin Kelley is a 52 year old female with past medical history of recent avascular necrosis of tibia left status post ORIF on 01/15/2023 COPD, diabetes, psoriasis, immunocompromised state secondary to chronic prednisone treatment presents with right ankle pain and right wrist pain.? While in the emergency room she was found to have a fever of 103 and she admitted to chills and body aches for the last 2 days.? Her lactic acid was elevated.? However, during my exam she denied any complaints other than severe pain in her right wrist Patient was admitted to [facility] for sepsis related to wound dehiscence, right ankle wound, with hardware in place, podiatry was consulted, managed with broad-spectrum antibiotic therapy, status post debridement down to the bone by Dr. Sales, hardware retained, managed with IV antibiotics, wound care, wound VAC, has immunocompromise state, Dr. Joseph from infectious disease was consulted, will be discharged on ertapenem 1 g IV every 24 hours through PICC line for 40 remaining days, with a follow-up with infectious disease and Dr. Sales as outpatient. So far patient cultures show group B strep, gram-negative rods, awaiting further identification, further cultures pending. Patient is nonweightbearing right lower extremity, follow-up with Dr. Sales, discharged on oxycodone for pain control, to be used sparingly for pain. Patient was advised to quit smoking, given her immunocompromise state, and her infection as above, I am going to have her hold orencia. In terms of her prednisone she tells me that she uses it as needed for pain she does not use it regularly, thus the risk of adrenal insufficiency is low if I were to hold it. I advised her to hold prednisone for a minimum of 6 weeks. Physical Exam Const: COMMON NORMALS: no acute distress and patient oriented x3 Resp: COMMON NORMALS: normal respiratory effort, No retractions, No use of accessory muscles and clear to auscultation bilaterally AUSCULTATION: clear to auscultation bilaterally Cardio: COMMON NORMALS: regular rate, regular rhythm, S1 normal heart sound present and S2 normal heart sound present RATE: regular rate RHYTHM: regular rhythm HEART SOUNDS: S1 normal heart sound present and S2 normal heart sound present GI: COMMON NORMALS: Normal to inspection, nondistended, normoactive bowel sounds present and non-tender Extremity: NARRATIVE EXTREMITY EXAM: Right lower extremity in a boot Neuro: COMMON NORMALS: patient oriented x3 Psych: COMMON NORMALS: mental status grossly normal Discharge Data Studies Completed and Pending Completed Studies During Hospitalization Category Date Time Status CT ankle RT w con [id number] Stat Cat Scan 03/07/23 05:[address] chest abdomen pelvis [place] [id number] Cat Scan 03/07/23 12:07 Completed ] Routine CXRP [XR chest 1V portable [id number]] Routine Exams 03/09/23 09:32 Completed CXRP [XR chest 1V portable [id number]] Stat Exams 03/07/23 04:58 Completed XR ankle RT min 3V* [id number] Stat Exams 03/07/23 04:53 Completed Pending at discharge Category Date Time Status Anaerobic Culture Routine Lab 03/08/23 12:09 Results Basic Metabolic Panel AM LABS Lab 03/11/23 04:00 Ordered Basic Metabolic Panel AM LABS Lab 03/12/23 04:00 Ordered Blood Culture Stat Lab 03/07/23 05:16 Results Wound Culture and Gram Stain Routine Lab 03/07/23 07:00 Results Wound Culture and Gram Stain Routine Lab 03/08/23 12:09 Results Radiology Impressions Ankle X-Ray 03/07/23 04:53 IMPRESSION: 1. Healing mildly displaced fractures of the distal tibia and fibula, with fracture lines remaining evident. 2. Soft tissue swelling and calcifications. 3. Osteopenia and degenerative change. Ankle CT 03/07/23 05:23 IMPRESSION: 1. Incomplete healing of distal tibial and fibular diaphyseal fractures. 2. Prominent soft tissue swelling and subcutaneous edema, along with multifocal soft tissue calcifications and anterior soft tissue ulceration. 3. Additional findings, as described above. ADDENDUM: 03/07/23622 A poorly defined 3.1 by 0.8 by 0.7 cm soft tissue fluid collection is identified anterior to the distal tibia (series 22: Image 28 and series 20: Image 68), which would be worrisome for developing soft tissue abscess. ADDENDUM: 03/07/2325 THIS REPORT CONTAINS FINDINGS THAT MAY BE CRITICAL TO PATIENT CARE. The findings were verbally communicated via telephone conference with Dr Bello at 6:22 AM CDT on 03/07/2023. The findings were acknowledged and understood. Laboratory Results WBC 6.08 10^3/uL (3.29-11.43) 03/10/23 05:46 RBC 3.77 10^6/uL (3.85-5.65) L 03/10/23 05:46 Hgb 8.50 g/dL (11.27-16.99) L 03/10/23 05:46 Hct 30.9 % (36-47) L 03/10/23 05:46 MCV 82.0 fl (85-98) L 03/10/23 05:46 MCH 22.5 pg (27-33) L 03/10/23 05:46 MCHC 27.5 g/dL (30-55) L 03/10/23 05:46 RDW 17.4 % (12.1-15.1) H 03/10/23 05:46 Plt Count 169 10^3/cmm (157-399) 03/10/23 05:46 MPV 11.1 fL (7.4-10.4) H 03/10/23 05:46 Neut % (Auto) 65.0 % 03/10/23 05:46 Lymph % (Auto) 20.7 % 03/10/23 05:46 Bowman % (Auto) 3.9 % 03/10/23 05:46 Eos % (Auto) 9.5 % 03/10/23 05:46 Baso % (Auto) 0.7 % 03/10/23 05:46 Neut # (Auto) 3.95 10^3/uL (1.8-7.7) 03/10/23 05:46 Lymph # (Auto) 1.3 10^3/uL (0.8-4.8) 03/10/23 05:46 Bowman # (Auto) 0.2 10^3/uL (0.2-0.9) 03/10/23 05:46 Eos # (Auto) 0.6 10^3/uL (0.0-0.8) 03/10/23 05:46 Baso # (Auto) 0.0 10^3/uL (0.0-0.1) 03/10/23 05:46 Nucleated RBC % (auto) 0 % 03/10/23 05:46 Nucleated RBCs # 0.0 /100WBC 03/10/23 05:46 ESR 47 mm/hr (0-15) H 03/07/23 04:54 Sodium 136 mmol/L (136-145) 03/10/23 05:46 Potassium 4.8 mmol/L (3.5-5.1) 03/10/23 05:46 Chloride 109 mmol/L (98-107) H 03/10/23 05:46 Carbon Dioxide 18 mmol/L (22-29) L 03/10/23 05:46 Anion Gap 13.8 (5-19) 03/10/23 05:46 BUN 11 mg/dL (6-20) 03/10/23 05:46 Creatinine 0.5 mg/dL (0.5-0.9) 03/10/23 05:46 GFR Calculation 128.6 mL/min (90-130) 03/10/23 05:46 Glucose 298 mg/dL (65-115) H 03/10/23 05:46 POC Glucose 337 mg/dL (70-110) H 03/10/23 06:30 Estimat Average Glucose 180 03/08/23 05:43 Hemoglobin A1c 7.9 % (4.0-6.0) H 03/08/23 05:43 Calculated Osmolality 292 mOsm/kg (285-295) 03/10/23 05:46 Lactic Acid 3.6 mmol/L (0.5-2.2) H 03/07/23 04:54 Lactic Acid (Sepsis) 2.3 mmol/L (0.5-2.2) H 03/07/23 07:59 Calcium 7.9 mg/dL (8.5-10.5) L 03/10/23 05:46 Ferritin 57 ng/mL (15-150) 03/07/23 04:54 Total Bilirubin 0.5 mg/dL (0.15-1.2) 03/07/23 04:54 AST 35 U/L (0-32) H 03/07/23 04:54 ALT 14 U/L (0-33) 03/07/23 04:54 Alkaline Phosphatase 311 U/L (35-105) H 03/07/23 04:54 C-Reactive Protein 83.2 mg/L (0.0-4.9) H 03/10/23 05:46 Total Protein 6.2 g/dL (6.6-8.7) L 03/07/23 04:54 Albumin 3.0 g/dL (3.5-5.2) L 03/07/23 04:54 Globulin 3.2 g/dL (1.3-4.6) 03/07/23 04:54 Procalcitonin 0.13 ng/mL (0-0.5) 03/10/23 05:46 TSH 0.91 uIU/mL (0.27-4.20) 03/08/23 05:43 Urine Color Yellow (Yellow) 03/07/23 10:48 Urine Appearance Hazy (CLEAR) A 03/07/23 10:48 Urine pH 5 (5-7) 03/07/23 10:48 Ur Specific [place] 1.010 (1.005-1.030) 03/07/23 10:48 Urine Protein Trace (Negative) 03/07/23 10:48 Urine Glucose (UA) Norm (Normal) 03/07/23 10:48 Urine Ketones Negative (Negative) 03/07/23 10:48 Urine Blood Trace (Negative) H 03/07/23 10:48 Urine Nitrate Negative (Negative) 03/07/23 10:48 Urine Bilirubin Neg (Negative) 03/07/23 10:48 Urine Urobilinogen 1 mg/dL (Negative) H 03/07/23 10:48 Ur Leukocyte Esterase Trace (Negative) H 03/07/23 10:48 Urine RBC 0-4 /hpf (0-2) H 03/07/23 10:48 Urine WBC 0-4 /hpf (0-5) H 03/07/23 10:48 Ur Squamous Epith Cells 15-25 /hpf (0-5) H 03/07/23 10:48 Amorphous Sediment Not Reportable 03/07/23 10:48 Urine Bacteria Trace /hpf (NONE) 03/07/23 10:48 Urine Yeast Trace /hpf 03/07/23 10:48 Vancomycin Trough 19.1 ug/mL (10-15) H 03/08/23 18:17 Hepatitis A IgM Ab Non-reactive (Nonreactive) 03/07/23 04:54 Hep Bs Antigen Non-reactive (Nonreactive) 03/07/23 04:54 Hep B Core IgM Ab Non-reactive (Nonreactive) 03/07/23 04:54 Hepatitis C Antibody Non-reactive (Nonreactive) 03/07/23 04:54 HIV 1&2 Ab & HIV 1 Ag Non-reactive (Non-Reactiv) 03/07/23 04:54 HIV 1&2 Antibody Non-reactive (Non-Reactiv) 03/07/23 04:54 SARS-CoV-2 Ag (Rapid) negative (Negative) 03/07/23 05:08 Vitals Last Vital Signs Temp 98.0 F 03/10/23 10:50 Pulse 66 03/10/23 10:50 Resp 16 03/10/23 10:50 BP 126/73 03/10/23 10:50 Pulse Ox 99 03/10/23 10:50 O2 Del Method Room Air 03/10/23 10:50 O2 Flow Rate 6 03/08/23 12:33 Discharge Plan Discharge Patient Disposition: Home Health Service Condition: Stable Prescriptions: New insulin glargine 100 unit/mL Solution 50 unit SUBCUT DAILY@0800 Qty: 10 0RF metoprolol tartrate 25 mg Tablet 25 mg PO BID 30 Days Qty: 60 0RF gabapentin 600 mg tablet 900 mg PO TID 30 Days Qty: 135 0RF oxycodone 10 mg tablet 10 mg PO Q6H PRN (Reason: pain) 7 Days Qty: 28 0RF ertapenem 1 gram recon soln 1 g IV Q24H 40 Days Qty: 10 0RF Continued omeprazole 40 mg capsule,delayed release(DR/EC) 40 mg PO QAM melatonin 3 mg capsule 3 mg PO BEDTIME Eliquis 5 mg tablet 5 mg PO BID rosuvastatin [Crestor] 20 mg tablet 20 mg PO QAM tamsulosin [Flomax] 0.4 mg capsule 0.4 mg PO BEDTIME alprazolam 0.25 mg tablet 0.25 mg PO DAILY PRN (Reason: anxiety) (DME) CAM WALKER See Rx Instructions .ROUTE .MEDSUPPLY Qty: 1 0RF Rx Instructions: As directed nitroglycerin [Nitrostat] 0.4 mg tablet, sublingual 0.4 mg SUBLINGUAL Q5M PRN (Reason: chest pain) 30 Days Qty: 25 6RF Rx Instructions: until response; do not exceed 3 doses per episode Combivent Respimat 20-100 mcg/actuation mist 1 puff INHALATION Q6H PRN (Reason: Shortness Of Breath) Qty: 4 5RF (DME) Knee Walker See Rx Instructions .Route .MEDSUPPLY Qty: 1 0RF Rx Instructions: As directed HOME- Patient has been instructed to be non-weight bearing to the Right Lower Extremity. epinephrine [EpiPen 2-[place]] 0.3 mg/0.3 mL Auto-Injector See Rx Instructions .ROUTE .COMPLEX PRN (Reason: Allergic Reaction) Rx Instructions: DIRECTED PRN insulin aspart U-100 [Novolog FlexPen U-100 Insulin] 100 unit/mL (3 mL) insulin pen See Rx Instructions .ROUTE .COMPLEX Rx Instructions: PER SLIDING SCALE TID glucagon HCl [Glucagon (HCl) Emergency Kit] 1 mg Recon Soln 1 mg SUBCUT Q20M PRN (Reason: blood sugar) Qty: 0 albuterol sulfate 2.5 mg /3 mL (0.083 %) Solution For Nebulization 2.5 mg INHALATION Q6H PRN (Reason: Shortness Of Breath) aspirin 81 mg Tablet,Delayed Release (Dr/Ec) 81 mg PO DAILY@0800 Ventolin HFA 90 mcg/actuation Hfa Aerosol Inhaler 2 puff INHALATION BID PRN (Reason: Shortness Of Breath) ropinirole 3 mg tablet 3 mg PO BEDTIME acetaminophen 500 mg Tablet 1,000 mg PO Q12H PRN (Reason: Pain) Milk of Magnesia 400 mg/5 mL Suspension 30 ml PO DAILY PRN (Reason: Constipation) Colace 100 mg Capsule 100 mg PO BID PRN (Reason: Constipation) vitamin B complex Tablet 1 tab PO DAILY folic acid 1 mg Tablet 1 mg PO QAM Vitamin D2 1,250 mcg (50,000 unit) Capsule 50,000 unit PO Q7D Rx Instructions: on mon Mucinex 600 mg Tablet Extended Release 12hr 600 mg PO Q12H PRN (Reason: Congestion) sertraline [Zoloft] 100 mg tablet 100 mg PO QAM isosorbide mononitrate 30 mg tablet extended release 24 hr 15 mg PO BID Held prednisone 5 mg tablet 5 mg PO DAILY PRN (Reason: FLARES) Qty: 60 2RF Hold Instructions: Resume on 04/21/23. Hold until you see Dr. Teri Meneses 125 mg/mL syringe 125 mg SUBCUT .qweek Qty: 4 5RF Hold Instructions: Resume on 04/26/24. hold until you see Dr. Williamson Rx Instructions: on hold per pts 03/07/23 Discontinued doxycycline hyclate 100 mg capsule 100 mg PO BID 10 Days Qty: 20 0RF gabapentin 300 mg capsule 300 mg PO TID insulin glargine [Lantus Solostar U-100 Insulin] 100 unit/mL (3 mL) insulin pen 50 unit SUBCUT BEDTIME oxycodone 15 mg tablet 7.5 mg PO QID PRN (Reason: Pain) potassium chloride 20 mEq Tablet Extended Release 20 meq PO QAM Discharge Orders: Discharge Order (Routine); Ordered 03/10/23 Ordered By: Jaydon Lane Other Ambulatory Orders: DME: Commode (Order) Location: None Selected Ordered By: Jaydon Lane DME: Wound Vac (Order) Location: None Selected Ordered By: Anthony Sales Referrals: [facility] [Outside] [facility] [Outside] Nel Peacock MD [Primary Care Provider] - 03/14/23 2:00 pm (WITH WILFRED BARKER NP) Anthony Sales DPM [Physician] - 1 week (SENT MESSAGE TO CLINIC 03/10 @ 1112) Georgia Joseph MD [Hospitalist] - 1 week (SENT MESSAGE TO CLINIC 03/10 @ 1112) Discharge Diet: Cardiac Discharge Activity: Resume usual activity Patient Instructions: Metoprolol (By mouth), Oxycodone/Acetaminophen (By mouth), Gabapentin (By mouth), Insulin Glargine (By injection), Opioid Safety Activity Restrictions/Additional Instructions: - Discharged on ertapenem 1 g IV every 24 hours, for 40 remaining days, stop date April 19 -Weekly CBC, CMP, CRP -discharged on wound VAC -Follow-up with Dr. Sales -Follow-up with infectious disease -I have held your orencia, as needed prednisone, please hold until you complete antibiotic therapy, please follow-up with Dr. 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
[2023-03-10 11:40] LABS: Glucose Point of Care 328 mg/dL (70-110)
[2023-03-10] MEDS: ertapenem 1,000 MG in sodium chloride 0.9% (plus) 100 ML 200 MG IV (11:48)
--- NOTE | 2023-03-10 13:45 | PC.NURSE ---
Patient is d/c home today with home health for IV antibiotics and wound assessment and management. Her home vac needed to be placed and the hospital vac removed prior to patient leaving. I removed protective dressings from right ankle, removed vac dressings and sponge. Wound bed is pink and moist with scant amount of white slough noted near the wound opening that was easily removed while cleansing. Tendon is present within the wound bed also. Surrounding edges are pink and normal for ethnicity. Small amount of serosanguineous drainage noted. Wound was cleansed with saline moistened gauze and patted dry, wound was framed with drape, packed with black sponge, covered with drape, and attached to suction at 125 mmHg continuously as ordered by Dr. Sales. Secured dressing with kerlix and liss wrap and placed walking boot back on. Patient tolerated procedure well. I reviewed s/s of wound infection to monitor for, including: changes in color, clarity, or odor of drainage, increased, severe pain that is not well controlled with pain medications, and fever greater than 101F that is not reduced with medications and reiterated to call Dr. Sales's office if any questions/concerns arise regarding her wound or wound vac. I reviewed the use of her wound vac including linen room supervisor, canisters, and dressing packs as well as basic troubleshooting and applying more drape if needed. I reviewed how to change canister if it becomes full prior to home health arriving. She verbalized understanding and returned demonstration of removing canister with assistance. Patient's spouse at bedside for all education and dressing change and he denies any questions or concerns at this time.
== END 2023-03-10 14:22 | disposition home health service (06) | DRG 987 ==
LOC: ER 05:49 → MEDSURG 05:59
PROVIDERS: Podiatrist Foot & Ankle Surgery; Admitting Provider Internal Medicine; Emergency Provider Emergency Medicine; PCP Internal Medicine; Visit Provider Family Medicine
PROC: 0SBF0ZZ Excision of Right Ankle Joint, Open Approach (ICD-10-PCS; principal; 2023-03-08 12:00)
DX: E11.69 Type 2 diabetes mellitus with other specified complication (principal); J18.9 Pneumonia, unspecified organism; L97.314 Non-pressure chronic ulcer of right ankle with necrosis of bone; M86.9 Osteomyelitis, unspecified; D84.821 Immunodeficiency due to drugs; T81.30XA Disruption of wound, unspecified, initial encounter; E11.610 Type 2 diabetes mellitus with diabetic neuropathic arthropathy; E11.42 Type 2 diabetes mellitus with diabetic polyneuropathy; E11.622 Type 2 diabetes mellitus with other skin ulcer; E11.51 Type 2 diabetes mellitus with diabetic peripheral angiopathy without gangrene; J43.2 Centrilobular emphysema; L40.9 Psoriasis, unspecified; M05.89 Other rheumatoid arthritis with rheumatoid factor of multiple sites; Z79.52 Long term (current) use of systemic steroids; Y83.9 Surgical procedure, unspecified as the cause of abnormal reaction of the patient, or of later complication, without mention of misadventure at the time of the procedure; B95.1 Streptococcus, group B, as the cause of diseases classified elsewhere; F17.210 Nicotine dependence, cigarettes, uncomplicated; Z79.01 Long term (current) use of anticoagulants; Z79.4 Long term (current) use of insulin; Z79.51 Long term (current) use of inhaled steroids; Z79.82 Long term (current) use of aspirin; S82.891D Other fracture of right lower leg, subsequent encounter for closed fracture with routine healing; W19.XXXD Unspecified fall, subsequent encounter; G89.29 Other chronic pain; M81.0 Age-related osteoporosis without current pathological fracture; M79.7 Fibromyalgia; I10 Essential (primary) hypertension; Z86.16 Personal history of COVID-19
CPT/HCPCS: 36415; 36416; 36573; 71045; 71250; 73610; 73701; 74176; 80048; 80053; 80074; 80202; 81001; 82728; 82962; 83036; 83605; 84145; 84443; 85025; 85651; 86140; 87040; 87070; 87075; 87077; 87086; 87186; 87205; 87426; 87806; 94664; 96365; 96367; 96372; 96375; 96376; 99285; J1170; J1335; J1815; J2405; J2543; J2704; J3010; J3370; J7030; J7050; Q9967

== ENCOUNTER → 2023-03-14 16:16 | Outpatient (BNVA) | payer MEDICAID, SELFPAY | PROVIDERS: PCP Internal Medicine; Visit Provider Podiatrist Foot & Ankle Surgery | DX: T81.31XD Disruption of external operation (surgical) wound, not elsewhere classified, subsequent encounter (principal); Y83.8 Other surgical procedures as the cause of abnormal reaction of the patient, or of later complication, without mention of misadventure at the time of the procedure; E11.621 Type 2 diabetes mellitus with foot ulcer; L97.324 Non-pressure chronic ulcer of left ankle with necrosis of bone; E11.42 Type 2 diabetes mellitus with diabetic polyneuropathy; M14.671 Charcot's joint, right ankle and foot; Z79.4 Long term (current) use of insulin | CPT/HCPCS: 99213 ==

== ENCOUNTER 2023-03-20 16:23 | Outpatient (CLI) | payer MEDICAID, SELFPAY ==
[2023-03-20 17:23] LABS: Basophils # 0.1 10^3/uL (0.0-0.1); Basophils % 0.8 %; Eosinophils # 0.3 10^3/uL (0.0-0.8); Eosinophils % 4.3 %; Hematocrit 30.1 % (36-47); Lymphocytes # 1.8 10^3/uL (0.8-4.8); Lymphocytes % 23.6 %; Mean Corpuscular HGB Conc 29.2 g/dL (30-55); Mean Corpuscular Hemoglobin 22.7 pg (27-33); Mean Corpuscular Volume 77.8 fl (85-98); Mean Platelet Volume 11.1 fL (7.4-10.4); Monocytes # 0.4 10^3/uL (0.2-0.9); Monocytes % 4.6 %; Neutrophils # 5.11 10^3/uL (1.8-7.7); Neutrophils % 66.4 %; Nucleated Red Blood Cells % 0 %; Platelet Count 219 10^3/cmm (157-399); Red Blood Count 3.87 10^6/uL (3.85-5.65); Red Cell Distribution Width 18.1 % (12.1-15.1); White Blood Count 7.68 10^3/uL (3.29-11.43)
[2023-03-20 17:31] LABS: Alanine Aminotransferase 8 U/L (0-33); Albumin Level 2.6 g/dL (3.5-5.2); Alkaline Phosphatase 264 U/L (35-105); Blood Urea Nitrogen 14 mg/dL (6-20); Calcium 7.8 mg/dL (8.5-10.5); Carbon Dioxide 24 mmol/L (22-29); Chloride 104 mmol/L (98-107); Globulin 3.1 g/dL (1.3-4.6); Glomerular Filtration Rate 128.6 mL/min (90-130); Glucose 85 mg/dL (65-115); Osmolality Calculated 280 mOsm/kg (285-295); Sodium 135 mmol/L (136-145); Total Bilirubin 0.3 mg/dL (0.15-1.2); Total Protein 5.7 g/dL (6.6-8.7)
[2023-03-20 20:42] LABS: Anion Gap 12.3 (5-19); Aspartate Amino Transferase 23 U/L (0-32); Potassium 5.3 mmol/L (3.5-5.1)
== END 2023-03-20 16:24 | disposition home or self-care (01) ==
PROVIDERS: PCP Internal Medicine; Visit Provider Family Medicine
DX: L97.314 Non-pressure chronic ulcer of right ankle with necrosis of bone (principal)
CPT/HCPCS: 80053; 85025; 86140

== ENCOUNTER → 2023-03-22 07:17 | Outpatient (BNVA) | payer MEDICAID, SELFPAY | PROVIDERS: PCP Internal Medicine; Visit Provider Podiatrist Foot & Ankle Surgery | DX: E11.42 Type 2 diabetes mellitus with diabetic polyneuropathy; M14.671 Charcot's joint, right ankle and foot; T81.31XD Disruption of external operation (surgical) wound, not elsewhere classified, subsequent encounter; Y83.8 Other surgical procedures as the cause of abnormal reaction of the patient, or of later complication, without mention of misadventure at the time of the procedure; E11.621 Type 2 diabetes mellitus with foot ulcer; L97.411 Non-pressure chronic ulcer of right heel and midfoot limited to breakdown of skin; L97.324 Non-pressure chronic ulcer of left ankle with necrosis of bone; Z79.4 Long term (current) use of insulin; M87.071 Idiopathic aseptic necrosis of right ankle | CPT/HCPCS: 73610; 99213 ==

== ENCOUNTER 2023-03-27 12:32 | Outpatient (RCR) | payer MEDICAID, SELFPAY ==
[2023-03-27 13:19] LABS: Basophils # 0.1 10^3/uL (0.0-0.1); Eosinophils # 0.3 10^3/uL (0.0-0.8); Eosinophils % 4.5 %; Hematocrit 30.2 % (36-47); Lymphocytes # 2.6 10^3/uL (0.8-4.8); Lymphocytes % 35.6 %; Mean Corpuscular HGB Conc 28.8 g/dL (30-55); Mean Corpuscular Hemoglobin 22.6 pg (27-33); Mean Corpuscular Volume 78.4 fl (85-98); Mean Platelet Volume 10.5 fL (7.4-10.4); Monocytes # 0.4 10^3/uL (0.2-0.9); Monocytes % 5.5 %; Neutrophils # 3.88 10^3/uL (1.8-7.7); Neutrophils % 53.1 %; Nucleated Red Blood Cells % 0 %; Platelet Count 232 10^3/cmm (157-399); Red Blood Count 3.85 10^6/uL (3.85-5.65); Red Cell Distribution Width 18.5 % (12.1-15.1)
[2023-03-27 13:38] LABS: Albumin Level 2.4 g/dL (3.5-5.2); Alkaline Phosphatase 255 U/L (35-105); Blood Urea Nitrogen 16 mg/dL (6-20); C Reactive Protein 57.6 mg/L (0.0-4.9); Calcium 7.9 mg/dL (8.5-10.5); Carbon Dioxide 24 mmol/L (22-29); Chloride 104 mmol/L (98-107); Globulin 3.4 g/dL (1.3-4.6); Glomerular Filtration Rate 128.6 mL/min (90-130); Glucose 100 mg/dL (65-115); Osmolality Calculated 281 mOsm/kg (285-295); Sodium 135 mmol/L (136-145); Total Bilirubin 0.3 mg/dL (0.15-1.2); Total Protein 5.8 g/dL (6.6-8.7)
[2023-03-27 14:13] LABS: Anion Gap 11.9 (5-19); Potassium 4.9 mmol/L (3.5-5.1)
[2023-03-27 14:22] LABS: Alanine Aminotransferase 7 U/L (0-33)
[2023-03-27 14:23] LABS: Aspartate Amino Transferase 17 U/L (0-32)
[2023-03-28 10:54] LABS: Iron 19 ug/dL (37-145)
[2023-03-28 11:02] LABS: Percent Saturation 10.4 % (20-50); Total Iron Binding Capacity 181 mcg/dl; Unsaturated Iron Binding 162 ug/dL (112-347)
== END 2023-04-08 23:59 | disposition home or self-care (01) ==
LOC: LAB 12:32
PROVIDERS: PCP Internal Medicine; Visit Provider Family Medicine
DX: A41.9 Sepsis, unspecified organism (principal); L97.314 Non-pressure chronic ulcer of right ankle with necrosis of bone
CPT/HCPCS: 80053; 83540; 83550; 85025; 86140

== ENCOUNTER → 2023-04-03 16:00 | Outpatient (BNVA) | payer MEDICAID, SELFPAY | PROVIDERS: PCP Internal Medicine; Visit Provider Podiatrist Foot & Ankle Surgery | DX: T81.31XD Disruption of external operation (surgical) wound, not elsewhere classified, subsequent encounter; Y83.8 Other surgical procedures as the cause of abnormal reaction of the patient, or of later complication, without mention of misadventure at the time of the procedure; E11.42 Type 2 diabetes mellitus with diabetic polyneuropathy; M87.071 Idiopathic aseptic necrosis of right ankle; M14.671 Charcot's joint, right ankle and foot; L97.324 Non-pressure chronic ulcer of left ankle with necrosis of bone; Z79.4 Long term (current) use of insulin | CPT/HCPCS: 73610; 99024 ==

== ENCOUNTER 2023-04-05 11:54 | Outpatient (CLI) | payer MEDICAID, SELFPAY ==
[2023-04-05 12:13] LABS: Basophils # 0.1 10^3/uL (0.0-0.1); Basophils % 0.9 %; Eosinophils # 0.6 10^3/uL (0.0-0.8); Eosinophils % 7.2 %; Hematocrit 33.9 % (36-47); Lymphocytes # 1.5 10^3/uL (0.8-4.8); Lymphocytes % 19.7 %; Mean Corpuscular HGB Conc 29.8 g/dL (30-55); Mean Corpuscular Hemoglobin 23.6 pg (27-33); Mean Corpuscular Volume 79.2 fl (85-98); Mean Platelet Volume 10.2 fL (7.4-10.4); Monocytes # 0.3 10^3/uL (0.2-0.9); Monocytes % 3.5 %; Neutrophils # 5.31 10^3/uL (1.8-7.7); Neutrophils % 68.4 %; Nucleated Red Blood Cells % 0 %; Platelet Count 224 10^3/cmm (157-399); Red Blood Count 4.28 10^6/uL (3.85-5.65); Red Cell Distribution Width 20.3 % (12.1-15.1); White Blood Count 7.76 10^3/uL (3.29-11.43)
[2023-04-05 12:25] LABS: Erythrocyte Sedimentation Rate 62 mm/hr (0-15)
[2023-04-05 12:36] LABS: Alanine Aminotransferase 8 U/L (0-33); Albumin Level 2.4 g/dL (3.5-5.2); Alkaline Phosphatase 282 U/L (35-105); Anion Gap 13.9 (5-19); Aspartate Amino Transferase 19 U/L (0-32); Blood Urea Nitrogen 8 mg/dL (6-20); C Reactive Protein 14.5 mg/L (0.0-4.9); Calcium 8.1 mg/dL (8.5-10.5); Carbon Dioxide 24 mmol/L (22-29); Chloride 106 mmol/L (98-107); Globulin 3.6 g/dL (1.3-4.6); Glomerular Filtration Rate 166.3 mL/min (90-130); Glucose 106 mg/dL (65-115); Osmolality Calculated 289 mOsm/kg (285-295); Potassium 3.9 mmol/L (3.5-5.1); Sodium 140 mmol/L (136-145); Total Bilirubin 0.4 mg/dL (0.15-1.2)
== END 2023-04-05 11:55 | disposition home or self-care (01) ==
LOC: LAB 11:56
PROVIDERS: PCP Internal Medicine; Visit Provider Podiatrist Foot & Ankle Surgery
DX: Z01.89 Encounter for other specified special examinations (principal)
CPT/HCPCS: 80053; 85025; 85651; 86140

== ENCOUNTER 2023-04-12 11:49 | Outpatient (CLI) | payer MEDICAID, SELFPAY ==
[2023-04-12 12:29] LABS: Basophils # 0.1 10^3/uL (0.0-0.1); Basophils % 1.4 %; Eosinophils % 15.3 %; Hematocrit 36.3 % (36-47); Lymphocytes # 1.7 10^3/uL (0.8-4.8); Lymphocytes % 26.3 %; Mean Corpuscular HGB Conc 29.8 g/dL (30-55); Mean Corpuscular Hemoglobin 23.6 pg (27-33); Mean Corpuscular Volume 79.3 fl (85-98); Mean Platelet Volume 9.8 fL (7.4-10.4); Monocytes # 0.2 10^3/uL (0.2-0.9); Monocytes % 3.7 %; Neutrophils # 3.48 10^3/uL (1.8-7.7); Neutrophils % 53.1 %; Nucleated Red Blood Cells % 0 %; Platelet Count 201 10^3/cmm (157-399); Red Blood Count 4.58 10^6/uL (3.85-5.65); White Blood Count 6.54 10^3/uL (3.29-11.43)
[2023-04-12 12:32] LABS: Erythrocyte Sedimentation Rate 56 mm/hr (0-15)
[2023-04-12 12:54] LABS: Alanine Aminotransferase 13 U/L (0-33); Albumin Level 2.8 g/dL (3.5-5.2); Alkaline Phosphatase 310 U/L (35-105); Anion Gap 14.6 (5-19); Aspartate Amino Transferase 24 U/L (0-32); Blood Urea Nitrogen 13 mg/dL (6-20); C Reactive Protein 8.2 mg/L (0.0-4.9); Calcium 8.4 mg/dL (8.5-10.5); Carbon Dioxide 23 mmol/L (22-29); Chloride 102 mmol/L (98-107); Globulin 3.5 g/dL (1.3-4.6); Glomerular Filtration Rate 166.3 mL/min (90-130); Glucose 205 mg/dL (65-115); Osmolality Calculated 286 mOsm/kg (285-295); Potassium 4.6 mmol/L (3.5-5.1); Sodium 135 mmol/L (136-145); Total Bilirubin 0.4 mg/dL (0.15-1.2); Total Protein 6.3 g/dL (6.6-8.7)
== END 2023-04-12 11:50 | disposition home or self-care (01) ==
PROVIDERS: PCP Internal Medicine; Visit Provider Podiatrist Foot & Ankle Surgery
DX: T81.31XD Disruption of external operation (surgical) wound, not elsewhere classified, subsequent encounter (principal); Y83.9 Surgical procedure, unspecified as the cause of abnormal reaction of the patient, or of later complication, without mention of misadventure at the time of the procedure; E11.622 Type 2 diabetes mellitus with other skin ulcer; L97.314 Non-pressure chronic ulcer of right ankle with necrosis of bone; E11.42 Type 2 diabetes mellitus with diabetic polyneuropathy
CPT/HCPCS: 80053; 85025; 85651; 86140

== ENCOUNTER → 2023-04-14 10:25 | Outpatient (BNVA) | payer MEDICAID, SELFPAY | PROVIDERS: PCP Internal Medicine; Visit Provider Podiatrist Foot & Ankle Surgery | DX: L97.324 Non-pressure chronic ulcer of left ankle with necrosis of bone (principal); E11.622 Type 2 diabetes mellitus with other skin ulcer; Z51.89 Encounter for other specified aftercare; E11.42 Type 2 diabetes mellitus with diabetic polyneuropathy; M87.071 Idiopathic aseptic necrosis of right ankle; M14.671 Charcot's joint, right ankle and foot; Z79.4 Long term (current) use of insulin | CPT/HCPCS: 73610; 99213 ==

== ENCOUNTER → 2023-04-19 16:15 | Outpatient (BNVA) | payer MEDICAID, SELFPAY | PROVIDERS: PCP Internal Medicine; Visit Provider Podiatrist Foot & Ankle Surgery | DX: Z98.890 Other specified postprocedural states (principal); E11.42 Type 2 diabetes mellitus with diabetic polyneuropathy; M14.671 Charcot's joint, right ankle and foot; L97.324 Non-pressure chronic ulcer of left ankle with necrosis of bone; M87.071 Idiopathic aseptic necrosis of right ankle; E11.622 Type 2 diabetes mellitus with other skin ulcer; Z79.4 Long term (current) use of insulin | CPT/HCPCS: 99024; 99213 ==

== ENCOUNTER 2023-04-21 12:11 | Outpatient (CLI) | payer MEDICAID, SELFPAY ==
[2023-04-21 12:50] LABS: Basophils # 0.1 10^3/uL (0.0-0.1); Basophils % 0.9 %; Eosinophils # 0.4 10^3/uL (0.0-0.8); Eosinophils % 7.4 %; Hematocrit 36.6 % (36-47); Lymphocytes # 2.1 10^3/uL (0.8-4.8); Lymphocytes % 38.4 %; Mean Corpuscular HGB Conc 30.3 g/dL (30-55); Mean Corpuscular Hemoglobin 24.7 pg (27-33); Mean Corpuscular Volume 81.3 fl (85-98); Mean Platelet Volume 10.1 fL (7.4-10.4); Monocytes # 0.3 10^3/uL (0.2-0.9); Monocytes % 5.8 %; Neutrophils % 47.1 %; Nucleated Red Blood Cells % 0 %; Platelet Count 175 10^3/cmm (157-399); Red Cell Distribution Width 23.6 % (12.1-15.1); White Blood Count 5.52 10^3/uL (3.29-11.43)
[2023-04-21 12:53] LABS: Erythrocyte Sedimentation Rate 62 mm/hr (0-15)
[2023-04-21 13:08] LABS: Alanine Aminotransferase 17 U/L (0-33); Albumin Level 2.7 g/dL (3.5-5.2); Alkaline Phosphatase 272 U/L (35-105); Anion Gap 15.4 (5-19); Aspartate Amino Transferase 25 U/L (0-32); Blood Urea Nitrogen 11 mg/dL (6-20); C Reactive Protein 7.4 mg/L (0.0-4.9); Calcium 8.3 mg/dL (8.5-10.5); Carbon Dioxide 22 mmol/L (22-29); Chloride 106 mmol/L (98-107); Globulin 3.2 g/dL (1.3-4.6); Glomerular Filtration Rate 128.6 mL/min (90-130); Glucose 203 mg/dL (65-115); Osmolality Calculated 293 mOsm/kg (285-295); Potassium 4.4 mmol/L (3.5-5.1); Sodium 139 mmol/L (136-145); Total Bilirubin 0.3 mg/dL (0.15-1.2); Total Protein 5.9 g/dL (6.6-8.7)
== END 2023-04-21 12:12 | disposition home or self-care (01) ==
LOC: LAB 12:15
PROVIDERS: Absent Provider Podiatrist Foot & Ankle Surgery; PCP Internal Medicine; Visit Provider Internal Medicine
DX: L97.324 Non-pressure chronic ulcer of left ankle with necrosis of bone (principal)
CPT/HCPCS: 80053; 85025; 85651; 86140

== ENCOUNTER → 2023-04-26 15:26 | Outpatient (BNVA) | payer MEDICAID, SELFPAY | PROVIDERS: PCP Internal Medicine; Visit Provider Podiatrist Foot & Ankle Surgery | DX: M14.671 Charcot's joint, right ankle and foot (principal); Z98.890 Other specified postprocedural states; E11.42 Type 2 diabetes mellitus with diabetic polyneuropathy; L97.314 Non-pressure chronic ulcer of right ankle with necrosis of bone; Z79.4 Long term (current) use of insulin; M87.074 Idiopathic aseptic necrosis of right foot; E11.620 Type 2 diabetes mellitus with diabetic dermatitis | CPT/HCPCS: 73610; 99213 ==

== ENCOUNTER 2023-04-28 10:49 | Outpatient (CLI) | payer MEDICAID, SELFPAY ==
[2023-04-28 11:05] LABS: Basophils # 0.1 10^3/uL (0.0-0.1); Basophils % 0.9 %; Eosinophils # 0.5 10^3/uL (0.0-0.8); Eosinophils % 7.8 %; Hematocrit 39.2 % (36-47); Lymphocytes # 1.7 10^3/uL (0.8-4.8); Lymphocytes % 27.2 %; Mean Corpuscular HGB Conc 30.4 g/dL (30-55); Mean Corpuscular Hemoglobin 25.2 pg (27-33); Mean Corpuscular Volume 82.9 fl (85-98); Mean Platelet Volume 9.6 fL (7.4-10.4); Monocytes # 0.3 10^3/uL (0.2-0.9); Neutrophils # 3.78 10^3/uL (1.8-7.7); Neutrophils % 59.8 %; Nucleated Red Blood Cells % 0 %; Platelet Count 173 10^3/cmm (157-399); Red Blood Count 4.73 10^6/uL (3.85-5.65); Red Cell Distribution Width 23.2 % (12.1-15.1); White Blood Count 6.32 10^3/uL (3.29-11.43)
[2023-04-28 11:16] LABS: Erythrocyte Sedimentation Rate 58 mm/hr (0-15)
[2023-04-28 11:29] LABS: Alanine Aminotransferase 17 U/L (0-33); Albumin Level 2.9 g/dL (3.5-5.2); Alkaline Phosphatase 287 U/L (35-105); Anion Gap 14.2 (5-19); Aspartate Amino Transferase 22 U/L (0-32); Blood Urea Nitrogen 9 mg/dL (6-20); C Reactive Protein 6.5 mg/L (0.0-4.9); Calcium 8.7 mg/dL (8.5-10.5); Carbon Dioxide 23 mmol/L (22-29); Chloride 104 mmol/L (98-107); Globulin 3.3 g/dL (1.3-4.6); Glomerular Filtration Rate 128.6 mL/min (90-130); Glucose 219 mg/dL (65-115); Osmolality Calculated 287 mOsm/kg (285-295); Potassium 5.2 mmol/L (3.5-5.1); Sodium 136 mmol/L (136-145); Total Bilirubin 0.4 mg/dL (0.15-1.2); Total Protein 6.2 g/dL (6.6-8.7)
== END 2023-04-28 10:50 | disposition home or self-care (01) ==
PROVIDERS: PCP Internal Medicine; Visit Provider Podiatrist Foot & Ankle Surgery
DX: L97.314 Non-pressure chronic ulcer of right ankle with necrosis of bone (principal)
CPT/HCPCS: 80053; 85025; 85651; 86140

== ENCOUNTER → 2023-05-02 15:19 | Outpatient (BNVA) | payer MEDICAID, SELFPAY | PROVIDERS: PCP Internal Medicine; Visit Provider Internal Medicine Cardiovascular Disease | DX: R07.9 Chest pain, unspecified (principal); I10 Essential (primary) hypertension; I73.9 Peripheral vascular disease, unspecified; J43.2 Centrilobular emphysema; E11.610 Type 2 diabetes mellitus with diabetic neuropathic arthropathy; F17.210 Nicotine dependence, cigarettes, uncomplicated; R94.31 Abnormal electrocardiogram [ECG] [EKG] | CPT/HCPCS: 93005; 99214 ==

== ENCOUNTER 2023-05-03 13:42 | Outpatient (CLI) | payer MEDICAID, SELFPAY ==
[2023-05-03 14:07] LABS: Basophils # 0.1 10^3/uL (0.0-0.1); Basophils % 0.6 %; Eosinophils # 0.1 10^3/uL (0.0-0.8); Eosinophils % 1.5 %; Hematocrit 37.4 % (36-47); Lymphocytes # 1.1 10^3/uL (0.8-4.8); Lymphocytes % 11.5 %; Mean Corpuscular HGB Conc 31.3 g/dL (30-55); Mean Corpuscular Hemoglobin 25.9 pg (27-33); Mean Corpuscular Volume 82.7 fl (85-98); Mean Platelet Volume 10.4 fL (7.4-10.4); Monocytes # 0.1 10^3/uL (0.2-0.9); Monocytes % 1.5 %; Neutrophils # 7.83 10^3/uL (1.8-7.7); Neutrophils % 84.5 %; Nucleated Red Blood Cells % 0 %; Platelet Count 178 10^3/cmm (157-399); Red Blood Count 4.52 10^6/uL (3.85-5.65); Red Cell Distribution Width 22.5 % (12.1-15.1); White Blood Count 9.28 10^3/uL (3.29-11.43)
[2023-05-03 14:22] LABS: Alanine Aminotransferase 16 U/L (0-33); Albumin Level 3.2 g/dL (3.5-5.2); Alkaline Phosphatase 246 U/L (35-105); Anion Gap 15.1 (5-19); Aspartate Amino Transferase 25 U/L (0-32); Blood Urea Nitrogen 17 mg/dL (6-20); C Reactive Protein 5.1 mg/L (0.0-4.9); Calcium 8.5 mg/dL (8.5-10.5); Carbon Dioxide 19 mmol/L (22-29); Chloride 103 mmol/L (98-107); Glomerular Filtration Rate 128.6 mL/min (90-130); Glucose 332 mg/dL (65-115); Osmolality Calculated 289 mOsm/kg (285-295); Potassium 5.1 mmol/L (3.5-5.1); Sodium 132 mmol/L (136-145); Total Bilirubin 0.5 mg/dL (0.15-1.2); Total Protein 6.2 g/dL (6.6-8.7)
[2023-05-03 15:31] LABS: Erythrocyte Sedimentation Rate 53 mm/hr (0-15)
== END 2023-05-03 13:43 | disposition home or self-care (01) ==
LOC: LAB 13:44
PROVIDERS: Absent Provider Podiatrist Foot & Ankle Surgery; PCP Internal Medicine; Visit Provider Student in an Organized Health Care Education/Training Program
DX: L97.314 Non-pressure chronic ulcer of right ankle with necrosis of bone (principal); E11.42 Type 2 diabetes mellitus with diabetic polyneuropathy; T81.31XD Disruption of external operation (surgical) wound, not elsewhere classified, subsequent encounter; Y83.8 Other surgical procedures as the cause of abnormal reaction of the patient, or of later complication, without mention of misadventure at the time of the procedure
CPT/HCPCS: 80053; 85025; 85651; 86140

== ENCOUNTER → 2023-05-05 10:52 | Outpatient (BNVA) | payer MEDICAID, SELFPAY | PROVIDERS: PCP Internal Medicine; Visit Provider Podiatrist Foot & Ankle Surgery | DX: Z98.890 Other specified postprocedural states (principal); E11.42 Type 2 diabetes mellitus with diabetic polyneuropathy; M14.671 Charcot's joint, right ankle and foot; L97.314 Non-pressure chronic ulcer of right ankle with necrosis of bone; M87.074 Idiopathic aseptic necrosis of right foot; Z79.4 Long term (current) use of insulin | CPT/HCPCS: 99024; 99213 ==

== ENCOUNTER 2023-05-10 15:57 | Outpatient (CLI) | payer MEDICAID, SELFPAY ==
[2023-05-10 18:34] LABS: Basophils # 0.1 10^3/uL (0.0-0.1); Basophils % 1.1 %; Eosinophils # 0.6 10^3/uL (0.0-0.8); Hematocrit 38.5 % (36-47); Lymphocytes # 1.7 10^3/uL (0.8-4.8); Lymphocytes % 27.5 %; Mean Corpuscular HGB Conc 31.2 g/dL (30-55); Mean Corpuscular Hemoglobin 26.1 pg (27-33); Mean Corpuscular Volume 83.7 fl (85-98); Mean Platelet Volume 10.5 fL (7.4-10.4); Monocytes # 0.2 10^3/uL (0.2-0.9); Monocytes % 3.3 %; Neutrophils % 58.8 %; Nucleated Red Blood Cells % 0 %; Platelet Count 165 10^3/cmm (157-399); Red Cell Distribution Width 21.5 % (12.1-15.1)
[2023-05-10 18:47] LABS: Erythrocyte Sedimentation Rate 69 mm/hr (0-15)
[2023-05-10 19:16] LABS: Alanine Aminotransferase 45 U/L (0-33); Albumin Level 3.2 g/dL (3.5-5.2); Alkaline Phosphatase 418 U/L (35-105); Anion Gap 16.4 (5-19); Aspartate Amino Transferase 64 U/L (0-32); Blood Urea Nitrogen 9 mg/dL (6-20); C Reactive Protein 46.9 mg/L (0.0-4.9); Calcium 8.2 mg/dL (8.5-10.5); Carbon Dioxide 22 mmol/L (22-29); Chloride 102 mmol/L (98-107); Globulin 3.2 g/dL (1.3-4.6); Glomerular Filtration Rate 128.6 mL/min (90-130); Glucose 192 mg/dL (65-115); Osmolality Calculated 286 mOsm/kg (285-295); Potassium 4.4 mmol/L (3.5-5.1); Sodium 136 mmol/L (136-145); Total Bilirubin 0.3 mg/dL (0.15-1.2); Total Protein 6.4 g/dL (6.6-8.7)
== END 2023-05-10 15:58 | disposition home or self-care (01) ==
LOC: LAB 15:58
PROVIDERS: PCP Internal Medicine; Visit Provider Podiatrist Foot & Ankle Surgery
DX: L97.324 Non-pressure chronic ulcer of left ankle with necrosis of bone (principal)
CPT/HCPCS: 80053; 85025; 85651; 86140

== ENCOUNTER → 2023-05-12 11:51 | Outpatient (BNVA) | payer MEDICAID, SELFPAY | PROVIDERS: PCP Internal Medicine; Visit Provider Podiatrist Foot & Ankle Surgery | DX: M14.671 Charcot's joint, right ankle and foot (principal); Z98.890 Other specified postprocedural states; E11.42 Type 2 diabetes mellitus with diabetic polyneuropathy; M87.071 Idiopathic aseptic necrosis of right ankle; E11.621 Type 2 diabetes mellitus with foot ulcer; L97.314 Non-pressure chronic ulcer of right ankle with necrosis of bone; Z79.4 Long term (current) use of insulin | CPT/HCPCS: 73610; 99213 ==

== ENCOUNTER 2023-05-19 11:58 | Outpatient (CLI) | payer MEDICAID, SELFPAY ==
[2023-05-19 12:38] LABS: Basophils # 0.1 10^3/uL (0.0-0.1); Basophils % 1.3 %; Eosinophils # 0.5 10^3/uL (0.0-0.8); Eosinophils % 8.9 %; Hematocrit 38.5 % (36-47); Lymphocytes # 1.5 10^3/uL (0.8-4.8); Lymphocytes % 28.8 %; Mean Corpuscular HGB Conc 30.9 g/dL (30-55); Mean Corpuscular Hemoglobin 26.4 pg (27-33); Mean Corpuscular Volume 85.4 fl (85-98); Monocytes # 0.3 10^3/uL (0.2-0.9); Monocytes % 5.5 %; Neutrophils # 2.94 10^3/uL (1.8-7.7); Neutrophils % 55.3 %; Nucleated Red Blood Cells % 0 %; Platelet Count 182 10^3/cmm (157-399); Red Blood Count 4.51 10^6/uL (3.85-5.65); Red Cell Distribution Width 19.7 % (12.1-15.1); White Blood Count 5.31 10^3/uL (3.29-11.43)
[2023-05-19 12:57] LABS: Alanine Aminotransferase 17 U/L (0-33); Alkaline Phosphatase 289 U/L (35-105); Anion Gap 14.7 (5-19); Aspartate Amino Transferase 19 U/L (0-32); Blood Urea Nitrogen 16 mg/dL (6-20); C Reactive Protein 24.4 mg/L (0.0-4.9); Calcium 8.6 mg/dL (8.5-10.5); Carbon Dioxide 21 mmol/L (22-29); Chloride 103 mmol/L (98-107); Globulin 3.4 g/dL (1.3-4.6); Glomerular Filtration Rate 128.6 mL/min (90-130); Glucose 294 mg/dL (65-115); Osmolality Calculated 290 mOsm/kg (285-295); Potassium 4.7 mmol/L (3.5-5.1); Sodium 134 mmol/L (136-145); Total Bilirubin 0.4 mg/dL (0.15-1.2); Total Protein 6.4 g/dL (6.6-8.7)
[2023-05-19 13:11] LABS: Erythrocyte Sedimentation Rate 59 mm/hr (0-15)
== END 2023-05-19 11:59 | disposition home or self-care (01) ==
LOC: LAB 12:00
PROVIDERS: PCP Internal Medicine; Visit Provider Podiatrist Foot & Ankle Surgery
DX: L97.324 Non-pressure chronic ulcer of left ankle with necrosis of bone (principal); Z98.1 Arthrodesis status; Z98.890 Other specified postprocedural states; Z87.81 Personal history of (healed) traumatic fracture; E11.42 Type 2 diabetes mellitus with diabetic polyneuropathy; Z79.4 Long term (current) use of insulin
CPT/HCPCS: 36415; 73610; 80053; 85025; 85651; 86140; 99024; 99213

== ENCOUNTER 2023-05-24 10:34 | Outpatient (CLI) | payer MEDICAID, SELFPAY ==
[2023-05-24 11:17] LABS: Basophils # 0.1 10^3/uL (0.0-0.1); Basophils % 1.1 %; Eosinophils # 0.4 10^3/uL (0.0-0.8); Eosinophils % 6.7 %; Lymphocytes # 2.3 10^3/uL (0.8-4.8); Lymphocytes % 35.3 %; Mean Corpuscular HGB Conc 31.3 g/dL (30-55); Mean Corpuscular Volume 86.4 fl (85-98); Mean Platelet Volume 10.4 fL (7.4-10.4); Monocytes # 0.3 10^3/uL (0.2-0.9); Monocytes % 5.3 %; Neutrophils # 3.29 10^3/uL (1.8-7.7); Neutrophils % 51.4 %; Nucleated Red Blood Cells % 0 %; Platelet Count 208 10^3/cmm (157-399); Red Blood Count 4.63 10^6/uL (3.85-5.65)
[2023-05-24 11:28] LABS: Erythrocyte Sedimentation Rate 47 mm/hr (0-15)
[2023-05-24 11:42] LABS: Alanine Aminotransferase 19 U/L (0-33); Albumin Level 3.1 g/dL (3.5-5.2); Alkaline Phosphatase 282 U/L (35-105); Anion Gap 14.6 (5-19); Aspartate Amino Transferase 36 U/L (0-32); Blood Urea Nitrogen 15 mg/dL (6-20); C Reactive Protein 7.3 mg/L (0.0-4.9); Calcium 8.4 mg/dL (8.5-10.5); Carbon Dioxide 23 mmol/L (22-29); Chloride 103 mmol/L (98-107); Globulin 3.1 g/dL (1.3-4.6); Glomerular Filtration Rate 104.2 mL/min (90-130); Glucose 105 mg/dL (65-115); Osmolality Calculated 283 mOsm/kg (285-295); Potassium 4.6 mmol/L (3.5-5.1); Sodium 136 mmol/L (136-145); Total Bilirubin 0.3 mg/dL (0.15-1.2); Total Protein 6.2 g/dL (6.6-8.7)
== END 2023-05-24 10:35 | disposition home or self-care (01) ==
PROVIDERS: PCP Internal Medicine; Visit Provider Podiatrist Foot & Ankle Surgery
DX: L97.324 Non-pressure chronic ulcer of left ankle with necrosis of bone (principal); E11.42 Type 2 diabetes mellitus with diabetic polyneuropathy
CPT/HCPCS: 80053; 85025; 85651; 86140

== ENCOUNTER → 2023-05-25 10:32 | Outpatient (BNVA) | payer MEDICAID, SELFPAY | PROVIDERS: PCP Internal Medicine; Visit Provider Podiatrist Foot & Ankle Surgery | DX: Z98.890 Other specified postprocedural states (principal); E11.621 Type 2 diabetes mellitus with foot ulcer; L97.314 Non-pressure chronic ulcer of right ankle with necrosis of bone; E11.42 Type 2 diabetes mellitus with diabetic polyneuropathy; M87.071 Idiopathic aseptic necrosis of right ankle; M14.671 Charcot's joint, right ankle and foot; Z79.4 Long term (current) use of insulin | CPT/HCPCS: 73610; 99213 ==

== ENCOUNTER 2023-05-29 11:59 | Outpatient (CLI) | payer MEDICAID, SELFPAY ==
[2023-05-29 12:12] LABS: Basophils # 0.1 10^3/uL (0.0-0.1); Basophils % 0.9 %; Eosinophils # 0.4 10^3/uL (0.0-0.8); Eosinophils % 5.4 %; Hematocrit 35.4 % (36-47); Lymphocytes # 1.8 10^3/uL (0.8-4.8); Lymphocytes % 24.3 %; Mean Corpuscular HGB Conc 33.1 g/dL (30-55); Mean Corpuscular Hemoglobin 27.7 pg (27-33); Mean Corpuscular Volume 83.7 fl (85-98); Mean Platelet Volume 10.3 fL (7.4-10.4); Monocytes # 0.3 10^3/uL (0.2-0.9); Monocytes % 3.7 %; Neutrophils # 4.93 10^3/uL (1.8-7.7); Neutrophils % 65.3 %; Nucleated Red Blood Cells % 0 %; Platelet Count 193 10^3/cmm (157-399); Red Blood Count 4.23 10^6/uL (3.85-5.65); White Blood Count 7.56 10^3/uL (3.29-11.43)
[2023-05-29 12:36] LABS: Alanine Aminotransferase 22 U/L (0-33); Albumin Level 3.1 g/dL (3.5-5.2); Alkaline Phosphatase 282 U/L (35-105); Anion Gap 15.9 (5-19); Aspartate Amino Transferase 34 U/L (0-32); Blood Urea Nitrogen 24 mg/dL (6-20); C Reactive Protein 14.9 mg/L (0.0-4.9); Calcium 8.5 mg/dL (8.5-10.5); Carbon Dioxide 22 mmol/L (22-29); Chloride 98 mmol/L (98-107); Globulin 2.9 g/dL (1.3-4.6); Glomerular Filtration Rate 128.6 mL/min (90-130); Glucose 337 mg/dL (65-115); Osmolality Calculated 289 mOsm/kg (285-295); Potassium 4.9 mmol/L (3.5-5.1); Sodium 131 mmol/L (136-145); Total Bilirubin 0.5 mg/dL (0.15-1.2)
[2023-05-29 12:46] LABS: Erythrocyte Sedimentation Rate 58 mm/hr (0-15)
== END 2023-05-29 12:00 | disposition home or self-care (01) ==
LOC: LAB 12:00
PROVIDERS: PCP Internal Medicine; Visit Provider Podiatrist Foot & Ankle Surgery
DX: E11.42 Type 2 diabetes mellitus with diabetic polyneuropathy (principal); L97.324 Non-pressure chronic ulcer of left ankle with necrosis of bone; Z79.899 Other long term (current) drug therapy
CPT/HCPCS: 80053; 85025; 85651; 86140

== ENCOUNTER → 2023-05-31 11:55 | Outpatient (BNVA) | payer MEDICAID, SELFPAY | PROVIDERS: PCP Internal Medicine; Visit Provider Podiatrist Foot & Ankle Surgery | DX: L97.314 Non-pressure chronic ulcer of right ankle with necrosis of bone (principal); M14.671 Charcot's joint, right ankle and foot; Z98.890 Other specified postprocedural states; E11.42 Type 2 diabetes mellitus with diabetic polyneuropathy; M87.071 Idiopathic aseptic necrosis of right ankle; E11.621 Type 2 diabetes mellitus with foot ulcer; Z79.4 Long term (current) use of insulin | CPT/HCPCS: 73610; 99213 ==

== ENCOUNTER → 2023-06-07 10:02 | Outpatient (BNVA) | payer MEDICAID, SELFPAY | PROVIDERS: PCP Internal Medicine; Visit Provider Podiatrist Foot & Ankle Surgery | DX: L97.314 Non-pressure chronic ulcer of right ankle with necrosis of bone; Z98.1 Arthrodesis status; Z98.890 Other specified postprocedural states; E11.42 Type 2 diabetes mellitus with diabetic polyneuropathy; M87.071 Idiopathic aseptic necrosis of right ankle; E11.610 Type 2 diabetes mellitus with diabetic neuropathic arthropathy; E11.621 Type 2 diabetes mellitus with foot ulcer; Z79.4 Long term (current) use of insulin | CPT/HCPCS: 73610; 99213; 99214 ==

== ENCOUNTER 2023-06-12 13:08 | Outpatient (CLI) | payer MEDICAID, SELFPAY ==
[2023-06-12 13:29] LABS: Basophils # 0.1 10^3/uL (0.0-0.1); Basophils % 0.8 %; Eosinophils # 0.3 10^3/uL (0.0-0.8); Eosinophils % 3.1 %; Hematocrit 37.9 % (36-47); Lymphocytes # 1.6 10^3/uL (0.8-4.8); Lymphocytes % 18.8 %; Mean Corpuscular HGB Conc 32.2 g/dL (30-55); Mean Corpuscular Hemoglobin 28.8 pg (27-33); Mean Corpuscular Volume 89.4 fl (85-98); Mean Platelet Volume 10.2 fL (7.4-10.4); Monocytes # 0.4 10^3/uL (0.2-0.9); Monocytes % 4.5 %; Neutrophils # 6.24 10^3/uL (1.8-7.7); Neutrophils % 72.5 %; Nucleated Red Blood Cells % 0 %; Platelet Count 217 10^3/cmm (157-399); Red Blood Count 4.24 10^6/uL (3.85-5.65); Red Cell Distribution Width 15.9 % (12.1-15.1); White Blood Count 8.62 10^3/uL (3.29-11.43)
[2023-06-12 13:43] LABS: Erythrocyte Sedimentation Rate 58 mm/hr (0-15)
[2023-06-12 13:51] LABS: Alanine Aminotransferase 30 U/L (0-33); Albumin Level 3.4 g/dL (3.5-5.2); Alkaline Phosphatase 295 U/L (35-105); Anion Gap 15.2 (5-19); Aspartate Amino Transferase 55 U/L (0-32); Blood Urea Nitrogen 20 mg/dL (6-20); C Reactive Protein 10.7 mg/L (0.0-4.9); Calcium 8.4 mg/dL (8.5-10.5); Carbon Dioxide 22 mmol/L (22-29); Chloride 101 mmol/L (98-107); Glomerular Filtration Rate 104.2 mL/min (90-130); Glucose 254 mg/dL (65-115); Osmolality Calculated 287 mOsm/kg (285-295); Potassium 5.2 mmol/L (3.5-5.1); Sodium 133 mmol/L (136-145); Total Bilirubin 0.3 mg/dL (0.15-1.2); Total Protein 6.4 g/dL (6.6-8.7)
== END 2023-06-12 13:09 | disposition home or self-care (01) ==
PROVIDERS: PCP Internal Medicine; Visit Provider Podiatrist Foot & Ankle Surgery
DX: M14.671 Charcot's joint, right ankle and foot (principal); Z98.890 Other specified postprocedural states; E11.42 Type 2 diabetes mellitus with diabetic polyneuropathy; L97.314 Non-pressure chronic ulcer of right ankle with necrosis of bone; M87.071 Idiopathic aseptic necrosis of right ankle
CPT/HCPCS: 80053; 85025; 85651; 86140

== ENCOUNTER → 2023-06-14 06:58 | Outpatient (BNVA) | payer MEDICAID, SELFPAY | PROVIDERS: PCP Internal Medicine; Visit Provider Podiatrist Foot & Ankle Surgery | DX: Z98.890 Other specified postprocedural states (principal); E11.42 Type 2 diabetes mellitus with diabetic polyneuropathy; M14.671 Charcot's joint, right ankle and foot; L97.314 Non-pressure chronic ulcer of right ankle with necrosis of bone; E11.621 Type 2 diabetes mellitus with foot ulcer; M87.274 Osteonecrosis due to previous trauma, right foot; Z79.4 Long term (current) use of insulin | CPT/HCPCS: 73610; 99213 ==

== ENCOUNTER 2023-06-19 15:22 | Outpatient (CLI) | payer MEDICAID, SELFPAY ==
[2023-06-19 15:58] LABS: Basophils # 0.1 10^3/uL (0.0-0.1); Basophils % 0.6 %; Eosinophils # 0.1 10^3/uL (0.0-0.8); Eosinophils % 0.5 %; Hematocrit 36.3 % (36-47); Lymphocytes # 1.1 10^3/uL (0.8-4.8); Lymphocytes % 11.4 %; Mean Corpuscular HGB Conc 31.4 g/dL (30-55); Mean Corpuscular Hemoglobin 28.5 pg (27-33); Mean Corpuscular Volume 90.8 fl (85-98); Mean Platelet Volume 10.5 fL (7.4-10.4); Monocytes # 0.3 10^3/uL (0.2-0.9); Neutrophils # 7.83 10^3/uL (1.8-7.7); Neutrophils % 84.1 %; Nucleated Red Blood Cells % 0 %; Platelet Count 202 10^3/cmm (157-399); Red Cell Distribution Width 14.6 % (12.1-15.1); White Blood Count 9.32 10^3/uL (3.29-11.43)
[2023-06-19 16:05] LABS: Erythrocyte Sedimentation Rate 57 mm/hr (0-15)
[2023-06-19 17:26] LABS: Alanine Aminotransferase 22 U/L (0-33); Albumin Level 3.6 g/dL (3.5-5.2); Alkaline Phosphatase 299 U/L (35-105); Anion Gap 20.6 (5-19); Aspartate Amino Transferase 14 U/L (0-32); Blood Urea Nitrogen 17 mg/dL (6-20); C Reactive Protein 28.3 mg/L (0.0-4.9); Calcium 8.7 mg/dL (8.5-10.5); Carbon Dioxide 17 mmol/L (22-29); Chloride 99 mmol/L (98-107); Glomerular Filtration Rate 87.2 mL/min (90-130); Glucose 292 mg/dL (65-115); Osmolality Calculated 286 mOsm/kg (285-295); Potassium 4.6 mmol/L (3.5-5.1); Sodium 132 mmol/L (136-145); Total Bilirubin 0.4 mg/dL (0.15-1.2); Total Protein 6.6 g/dL (6.6-8.7)
== END 2023-06-19 15:23 | disposition home or self-care (01) ==
LOC: LAB 15:23
PROVIDERS: PCP Internal Medicine; Visit Provider Podiatrist Foot & Ankle Surgery
DX: L97.324 Non-pressure chronic ulcer of left ankle with necrosis of bone (principal)
CPT/HCPCS: 80053; 85025; 85651; 86140

== ENCOUNTER → 2023-06-21 07:01 | Outpatient (BNVA) | payer MEDICAID, SELFPAY | PROVIDERS: PCP Internal Medicine; Visit Provider Podiatrist Foot & Ankle Surgery | DX: E11.42 Type 2 diabetes mellitus with diabetic polyneuropathy (principal); M14.671 Charcot's joint, right ankle and foot; L97.314 Non-pressure chronic ulcer of right ankle with necrosis of bone; M87.071 Idiopathic aseptic necrosis of right ankle; E11.621 Type 2 diabetes mellitus with foot ulcer; Z79.4 Long term (current) use of insulin | CPT/HCPCS: 99213 ==

== ENCOUNTER → 2023-06-26 15:25 | Outpatient (BNVA) | payer MEDICAID, SELFPAY | PROVIDERS: PCP Internal Medicine; Visit Provider Podiatrist Foot & Ankle Surgery | DX: E11.622 Type 2 diabetes mellitus with other skin ulcer (principal); L97.324 Non-pressure chronic ulcer of left ankle with necrosis of bone; L97.314 Non-pressure chronic ulcer of right ankle with necrosis of bone; M14.671 Charcot's joint, right ankle and foot; M87.072 Idiopathic aseptic necrosis of left ankle; M87.071 Idiopathic aseptic necrosis of right ankle; E11.42 Type 2 diabetes mellitus with diabetic polyneuropathy; Z79.4 Long term (current) use of insulin | CPT/HCPCS: 36415; 73610; 80053; 85025; 85651; 86140; 99213 ==

== ENCOUNTER → 2023-07-28 09:41 | Outpatient (BNVA) | payer MEDICAID, SELFPAY | PROVIDERS: PCP Internal Medicine; Visit Provider Internal Medicine | DX: M06.9 Rheumatoid arthritis, unspecified (principal); M25.50 Pain in unspecified joint; R74.8 Abnormal levels of other serum enzymes; L40.9 Psoriasis, unspecified; R19.7 Diarrhea, unspecified | CPT/HCPCS: 99214 ==

== ENCOUNTER 2023-08-23 09:35 | Outpatient (CLI) | payer MEDICAID, SELFPAY ==
--- NOTE | 2023-08-23 09:45 | MM_ITS ---
WS: [id number] BILATERAL SCREENING DIGITAL TOMOSYNTHESIS MAMMOGRAM WITH CAD HISTORY: SCREEN COMPARISON: 12/15/2021, 09/09/2020 Bilateral CC and MLO views with tomosynthesis and synthetic mammography submitted. Computer aided det ection analyzed. Breast composition: There are scattered areas of fibroglandular density. No suspicious masses, microc alcifications or architectural distortion. Reidentified is a partially visualized nodule in the later al LEFT breast. This is in the far lateral breast and not seen on the lateral projection. Similar to the prior studies from 2018 and also 202. Benign calcifications in each breast. IMPRESSION: MM/[place] [id number] BI-RADS: 2-Benign FOLLOW UP: 1 Year Follow-up
== END 2023-08-23 09:36 | disposition home or self-care (01) ==
LOC: RAD 09:36
PROVIDERS: PCP Internal Medicine; Visit Provider Internal Medicine
DX: Z12.31 Encounter for screening mammogram for malignant neoplasm of breast (principal); R92.323 Mammographic fibroglandular density, bilateral breasts; N63.20 Unspecified lump in the left breast, unspecified quadrant; R92.1 Mammographic calcification found on diagnostic imaging of breast
CPT/HCPCS: 77063; 77067

== ENCOUNTER 2023-09-01 07:01 | Emergency (ER) | payer MEDICAID, SELFPAY ==
[2023-09-01 07:12] VITALS: BP 124/81; PULSE 92; RESP 16; TEMP 36.6; O2SAT 94; BMI 29.9
--- NOTE | 2023-09-01 07:14 | XR_ITS ---
WS: [id number] Examination: XR hand RT min 3V* [id number] Reason for Exam: pain Date: 09/01/2023 Comparison: 03/13/2020 Findings: There is soft tissue swelling identified dorsally at the level of the metacarpal phalangeal joints. The bone density is maintained. There is apparent mild old deformity involving the right fifth proximal phalanx There is no displaced fracture. There is no dislocation. The joint spaces are generally well maintained. No large erosive changes are seen. Impression: No acute bony abnormality is identified.
[2023-09-01 07:17] VITALS: BP 124/81; PULSE 84; O2SAT 94
--- NOTE | 2023-09-01 07:24 | ED_ITS ---
HPI - Extremity Problem 2 General: Chief complaint: Extremity Injury, Upper Stated complaint: right arm pain Time Seen by Provider: 09/01/23 07:08 Source: patient Mode of arrival: ambulatory Limitations: no limitations History of Present Illness: 52-year-old female states she has had so me redness and swelling to dorsum of right hand states she does have arthritis but is unsure if this is arthritis or cellulitis she denies any injuries denies any fever it is worse with movement. Rates her pain a 4 out of 10 currently Associated symptoms: Deny chest pain, fever(s) or rash Review of Systems 2 Const: Denies: fever(s), chills, body aches or change in appetite ENMT: Denies: throat pain or dental pain Card: Denies: chest pain Resp: Denies: dyspnea GI: Denies: abdominal pain, nausea, vomiting or diarrhea Musc: Reports: extremity pain; Denies: neck pain or back pain Skin/Breast: Reports: erythema; Denies: rash Neuro: Denies: headache(s) PFSH ED 2 PFSH: Medical History Closed fracture of right distal fibula Fall at home Closed fracture of right distal tibia Closed right ankle fracture Fracture of distal end of tibia with fibula Acute gout of right ankle Psoriasis Cigarette smoker motivated to quit Thrombocytopenia Rheumatoid arthritis Transaminitis Immunocompromised Chronic anticoagulation Portal vein thrombosis COVID-19 Syncope Seizures Onychodystrophy Rheumatoid arthritis Closed fracture of right distal fibula Emphysema/COPD PVD (peripheral vascular disease) Avulsion fracture of left ankle Essential hypertension Claudication Spondylosis of lumbar region without myelopathy or radiculopathy Long-term current use of opiate analgesic Pain, joint, multiple sites Osteoporosis Fibromyalgia Diabetes DDD (degenerative disc disease), cervical Cervical spondylosis Tobacco use disorder Surgical History S/P foot surgery Hx of section (~1989) Hx laparoscopic cholecystectomy H/O dilation and curettage Hx of hysterectomy Family History Mother Stroke Cancer SKIN CANCER Sister Stroke Other Diabetes Myocardial infarct Denies family history of Anesthesia complication Bleeding disorder Social History Smoking and tobacco/nicotine status: current every day tobacco/nicotine user cigarettes Years cigarettes smoked: 40 [ Other cigarette details: 3 cigarettes/day currently] Quit status (tobacco/nicotine): considering quitting Second hand smoke exposure: Yes Alcohol intake: former Substance/Drug Use: never Caregiver/support person: Yes Lives independently: Yes Household members: spouse Marital status: Current occupational status: disabled Pets and animals: Yes Do you think of yourself as: Straight/Heterosexual Current gender identity: Female Physical Exam 2 Const: COMMON NORMALS: no acute distress, patient oriented x3 and healthy appearing HENMT: COMMON NORMALS: normocephalic and atraumatic HEAD & SCALP: n ormocephalic and atraumatic Neck/C-Spine: COMMON NORMALS: full ROM and supple Chest: COMMONS NORMALS: normal inspection of the chest Resp: COMMON NORMALS: normal respiratory effort Cardio: COMMON NORMALS: regular rate, regular rhythm and No murmurs present (Cardio) RATE: regular rate RHYTHM: regular rhythm Extremity: COMMON NORMALS: full ROM NARRATIVE EXTREMITY EXAM: Erythema over dorsum of hand with slight warmth to touch no abscess formation Neuro: COMMON NORMALS: patient oriented x3, moves all extremities and no focal motor deficits Psych: COMMON NORMALS: mental status grossly normal, Normal thought process present and cooperative THOUGHT PROCESS: Normal thought process present Skin: COMMON NORMALS: no rashes or lesions noted and no wounds GENERAL SKIN EXAM: no rashes or lesions noted Course 2 Vital Signs: Vital signs: Vital Signs Temperature 97.9 F 09/01/23 07:12 Pulse Rate 84 09/01/23 07:17 Respiratory Rate 16 09/01/23 07:35 Blood Pressure 124/81 09/01/23 07:17 Pulse Oximetry 96 09/01/23 07:35 Oxygen Delivery Me thod Room Air 09/01/23 07:12 MDM - Extremity (Nontraumatic) Medical Decision Making Patient presents here with right hand pain that is arthritis versus cellulitis no signs of septic joint WBC and x-ray here are normal we will start her on antibiotics have her follow-up with her PCP and return if worsening she understands agrees to plan Medical Records I reviewed the patient's medical records. Lab Data I reviewed the patient's lab results. 09/01/23 07:41 Laboratory Results WBC 10.39 10^3/uL (3.29-11.43) 09/01/23 07:41 RBC 4.79 10^6/uL (3.85-5.65) 09/01/23 07:41 Hgb 14.00 g/dL (11.27-16.99) 09/01/23 07:41 Hct 42.1 % (36-47) 09/01/23 07:41 MCV 87.9 fl (85-98) 09/01/23 07:41 MCH 29.2 pg (27-33) 09/01/23 07:41 MCHC 33.3 g/dL (30-55) 09/01/23 07:41 RDW 12.7 % (12.1-15.1) 09/01/23 07:41 Plt Count 178 10^3/cmm (157-399) 09/01/23 07:41 MPV 10.1 fL (7.4-10.4) 09/01/23 07:41 Neut % (Auto) 79.7 % 09/01/23 07:41 Lymph % (Auto) 13.7 % 09/01/23 07:41 Garza % (Auto) 4.7 % 09/01/23 07:41 Eos % (Auto) 0.8 % 09/01/23 07:41 Baso % (Auto) 0.8 % 09/01/23 07:41 Neut # (Auto) 8.29 10^3/uL (1.8-7.7) H 09/01/23 07:41 Lymph # (Auto) 1.4 10^3/uL (0.8-4.8) 09/01/23 07:41 Garza # (Auto) 0.5 10^3/uL (0.2-0.9) 09/01/23 07:41 Eos # (Auto) 0.1 10^3/uL (0.0-0.8) 09/01/23 07:41 Baso # (Auto) 0.1 10^3/uL (0.0-0.1) 09/01/23 07:41 Nucleated RBC % (auto) 0 % 09/01/23 07:41 Nucleated RBCs # 0.0 /100WBC 09/01/23 07:41 ESR 63 mm/hr (0-15) H 09/01/23 07:41 All radiology interpretation(s) finalized by discharge Discharge Plan Discharge Patient Disposition: Home Clinical Impression: Cellulitis Qualifiers: Site of cellulitis: extremity Site of cellulitis of extremity: upper extremity Laterality: right Qualified Code(s): L03.113 - Cellulitis of right upper limb Condition: Stable Prescriptions: New cephalexin 500 mg capsule 500 mg PO TID 7 Days Qty: 21 0RF Naprosyn 500 mg tablet 500 mg PO BID PRN (Reason: pain) Qty: 20 0RF No Action omeprazole 40 mg capsule,delayed release(DR/EC) 40 mg PO QAM melatonin 3 mg capsule 3 mg PO BEDTIME Eliquis 5 mg tablet 5 mg PO BID rosuvastatin [Crestor] 20 mg tablet 20 mg PO QAM tamsulosin [Flomax] 0.4 mg capsule 0.4 mg PO BEDTIME alprazolam 0.25 mg tablet 0.25 mg PO DAILY PRN (Reason: anxiety) (ANGELA) JANAK BOYKIN See Rx Instructions .ROUTE .MEDSUPPLY Qty: 1 0RF Rx Instructions: As directed prednisone 5 mg tablet 5 mg PO DAILY Qty: 60 0RF oxycodone 10 mg tablet PO Otezla 30 mg tablet 30 mg PO BID Qty: 60 4RF diclofenac sodium [Voltaren Arthritis Pain] 1 % gel 4 g topical QID Qty: 100 3RF Rx Instructions: apply to single elbow, wrist or hand; for hand includes palm/fingers/back of hand nitroglycerin [Nitrostat] 0.4 mg tablet, sublingual 0.4 mg SUBLINGUAL Q5M PRN (Reason: chest pain) 30 Days Qty: 25 6RF Rx Instructions: until response; do not exceed 3 doses per episode prednisone 5 mg tablet 5 mg PO DAILY PRN (Reason: FLARES) Qty: 60 2RF Hold Instructions: Resume on 04/21/23. Hold until you see Dr. Williamson (ANGELA) Scot Boykin See Rx Instructions .Route .MEDSUPPLY Qty: 1 0RF Rx Instructions: As directed HOME- Patient has been instructed to be non-weight bearing to the Right Lower Extremity. Combivent Respimat 20-100 mcg/actuation mist 1 puff INHALATION Q6H PRN (Reason: Shortness Of Breath) Qty: 4 6RF Otezla Starter 10 mg (4)-20 mg (4)-30 mg (47) tablets,dose pack See Rx Instructions PO PER PKG DIR Qty: 55 0RF Rx Instructions: PO PER PKG DIR sulfamethoxazole-trimethoprim 800-160 mg tablet See Rx Instructions .ROUTE .COMPLEX Qty: 28 0RF Dose Instruction: TAKE 1 TABLET BY MOUTH EVERY 12 HOURS FOR 14 DAYS Rx Instructions: TAKE 1 TABLET BY MOUTH EVERY 12 HOURS FOR 14 DAYS epinephrine [EpiPen 2-Carrington] 0.3 mg/0.3 mL Auto-Injector See Rx Instructions .ROUTE .COMPLEX PRN (Reason: Allergic Reaction) Rx Instructions: DIRECTED PRN insulin aspart U-100 [Novolog FlexPen U-100 Insulin] 100 unit/mL (3 mL) insulin pen See Rx Instructions .ROUTE .COMPLEX Rx Instructions: PER SLIDING SCALE TID glucagon HCl [Glucagon (HCl) Emergency Kit] 1 mg Recon Soln 1 mg SUBCUT Q20M PRN (Reason: blood sugar) Qty: 0 albuterol sulfate 2.5 mg /3 mL (0.083 %) Solution For Nebulization 2.5 mg INHALATION Q6H PRN (Reason: Shortness Of Breath) aspirin 81 mg Tablet,Delayed Release (Dr/Ec) 81 mg PO DAILY@0800 Ventolin HFA 90 mcg/actuation Hfa Aerosol Inhaler 2 puff INHALATION BID PRN (Reason: Shortness Of Breath) ropinirole 3 mg tablet 3 mg PO BEDTIME acetaminophen 500 mg Tablet 1,000 mg PO Q12H PRN (Reason: Pain) Milk of Magnesia 400 mg/5 mL Suspension 30 ml PO DAILY PRN (Reason: Constipation) Colace 100 mg Capsule 100 mg PO BID PRN (Reason: Constipation) vitamin B complex Tablet 1 tab PO DAILY folic acid 1 mg Tablet 1 mg PO QAM Vitamin D2 1,250 mcg (50,000 unit) Capsule 50,000 unit PO Q7D Rx Instructions: on mon Mucinex 600 mg Tablet Extended Release 12hr 600 mg PO Q12H PRN (Reason: Congestion) insulin glargine 100 unit/mL Solution 50 unit SUBCUT DAILY@0800 Qty: 10 0RF sertraline [Zoloft] 100 mg tablet 100 mg PO QAM isosorbide mononitrate 30 mg tablet extended release 24 hr 15 mg PO BID Discharge Orders: Discharge ED (Routine); Ordered 09/01/23 Ordered By: Annamaria Perez Referrals: Nel Peacock MD [Primary Care Provider] - 1-3 days Discharge Diet: Advance as tolerated Discharge Activity: Resume usual activity Patient Instructions: Cellulitis (ED) Coding Level of Care Code ED Traffic Control Officer for Chikis Toro
[2023-09-01 07:35] VITALS: RESP 16; O2SAT 96
[2023-09-01] MEDS: ondansetron 2 mg/ML SDV 2 mL 4 MG IVP (07:35)
[2023-09-01] MEDS: morphine 4 mg/mL SDV 1 mL IVP (07:35)
[2023-09-01 07:46] LABS: Basophils # 0.1 10^3/uL (0.0-0.1); Basophils % 0.8 %; Eosinophils # 0.1 10^3/uL (0.0-0.8); Eosinophils % 0.8 %; Hematocrit 42.1 % (36-47); Lymphocytes # 1.4 10^3/uL (0.8-4.8); Lymphocytes % 13.7 %; Mean Corpuscular HGB Conc 33.3 g/dL (30-55); Mean Corpuscular Hemoglobin 29.2 pg (27-33); Mean Corpuscular Volume 87.9 fl (85-98); Mean Platelet Volume 10.1 fL (7.4-10.4); Monocytes # 0.5 10^3/uL (0.2-0.9); Monocytes % 4.7 %; Neutrophils # 8.29 10^3/uL (1.8-7.7); Neutrophils % 79.7 %; Nucleated Red Blood Cells % 0 %; Platelet Count 178 10^3/cmm (157-399); Red Blood Count 4.79 10^6/uL (3.85-5.65); Red Cell Distribution Width 12.7 % (12.1-15.1); White Blood Count 10.39 10^3/uL (3.29-11.43)
[2023-09-01 08:02] LABS: Erythrocyte Sedimentation Rate 63 mm/hr (0-15)
[2023-09-01] MEDS: vancomycin 1,000 MG in sodium chloride 0.9% 250 ML 250 MG IV (08:16)
[2023-09-01 09:32] VITALS: RESP 16; O2SAT 96
== END 2023-09-01 09:33 | disposition home or self-care (01) ==
PROVIDERS: Emergency Provider Emergency Medicine; PCP Internal Medicine
DX: L03.113 Cellulitis of right upper limb (principal); Z79.01 Long term (current) use of anticoagulants; Z79.4 Long term (current) use of insulin; Z79.82 Long term (current) use of aspirin; F17.210 Nicotine dependence, cigarettes, uncomplicated; J44.9 Chronic obstructive pulmonary disease, unspecified; I10 Essential (primary) hypertension; E11.9 Type 2 diabetes mellitus without complications
CPT/HCPCS: 73130; 85025; 85651; 96365; 96375; 99284; J2270; J2405; J3370; J7050

== ENCOUNTER 2024-01-18 14:00 | Outpatient (CLI) | payer MEDICAID, SELFPAY ==
--- NOTE | 2024-01-18 14:02 | CTR_ITS ---
PROCEDURE INFORMATION: Exam: CT Neck With Contrast Exam date and time: 01/18/2024 2:09 PM Age: 53 years old Clinical indication: Mass, lump, or swelling in neck; Patient HX: Lump on left side of neck-bb x 6 months; Additional info: Lymphadenopathy TECHNIQUE: Imaging protocol: Computed tomography of the neck with contrast. Radiation optimization: All CT scans at this facility use at least one of these dose optimization techniques: automated exposure control; mA and/or kV adjustment per patient size (includes targeted exams where dose is matched to clinical indication); or iterative reconstruction. Contrast material: OMNI 350; Contrast volume: 100 ml; Contrast route: INTRAVENOUS (IV); COMPARISON: CT neck w con* [id number] 11/30/2022 7:33 AM RADIATION DOSE METRICS: Total DLP (mGy-cm): 210.41 FINDINGS: Salivary glands: Deep to a left neck skin marker the left submandibular gland is seen which may demonstrate a minimal amount of surrounding edema, please correlate for an underlying infectious or inflammatory process. Additionally a 4 mm calculus is seen in the central portion of the gland with minimal dilation of the duct within the gland. Pharynx: Unremarkable. No significant tonsillar enlargement. Prevertebral and retropharyngeal spaces: Unremarkable. Larynx: Unremarkable. Epiglottis is normal. Thyroid: Normal. No enlarged or calcified nodules. Trachea: Visualized trachea is unremarkable. Lungs: Emphysematous changes. Lymph nodes: Scattered subcentimeter short axis nonspecific mediastinal lymph nodes. Bones/joints: Unremarkable. No acute fracture. Soft tissues: See Salivary glands finding. CT/CT neck w con* [id number] IMPRESSION: 1. Deep to a left neck skin marker the left submandibular gland is seen which may demonstrate a minimal amount of surrounding edema, please correlate for an underlying infectious or inflammatory process. Additionally a 4 mm calculus is seen in the central portion of the gland with minimal dilation of the duct within the gland. 2. Scattered subcentimeter short axis nonspecific mediastinal lymph nodes. 3. Emphysematous changes.
[2024-01-18] MEDS: iohexol 350 mg/mL 500 mL Btl (per mL) IV (14:17)
== END 2024-01-18 14:01 | disposition home or self-care (01) ==
LOC: RAD 14:00
PROVIDERS: PCP Internal Medicine; Visit Provider Internal Medicine
DX: R59.1 Generalized enlarged lymph nodes (principal); K11.5 Sialolithiasis; J43.9 Emphysema, unspecified
CPT/HCPCS: 70491; Q9967

== ENCOUNTER 2024-01-30 09:28 | Outpatient (CLI) | payer MEDICAID, SELFPAY ==
--- NOTE | 2024-01-30 | ECG_ITS ---
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
[2024-01-30 09:46] VITALS: BMI 30.9
--- NOTE | 2024-01-30 09:51 | NMCV_ITS ---
NM kyle perf SPECT r/s* [id number] Erin Kelley Age: 53 Gender: F : 1970 Exam Date: 01/30/2024 09:51 Ordering Phys: Nel Peacock MD Technologist: REGINALD Walters Exam Location: [facility] Indications: CP STRESS TEST Please see separate stress test report in [facility] for full findings IMAGE PROTOCOL Rest/Stress 1 Lexiscan Day Radiopharmaceutical Dose (mCi) Administration Site Administered by Rest: Tc-99m 10.4 IV REGINALD Walters Sestamibi Stress:Tc-99m 32.3 IV REGINALD Walters Sestamibi Rest: 30-Jan-2024 60 Discovery 630 Stress: 30-Jan-2024 30 Discovery 630 0.4mg Lexiscan. Images obtained in supine and prone position. SPECT RESULTS Technical Quality: Good Raw Data Analysis: Subdiaphragmatic activity. On opioids for chronic pain. Image Corrections: No attenuation or motion correction applied Summed Stress Score: 0 Summed Rest Score: 1 Summed Difference Score: 0 PERFUSION FINDINGS There is inconsistent perfusion defect noted in the anterior wall. This is consistent with attenuation artifact. No evidence of ischemia. FUNCTIONAL RESULTS (calculated via Gated SPECT) Stress Image LV EF (%): 72 Stress EDV (mL):75 TID: 1.2 Stress ESV (mL):21 FUNCTIONAL FINDINGS: There is normal left ventricular systolic function. TID ratio is elevated however with no significant ischemia and normal EF, significance of this finding is equivocal. IMPRESSIONS 1. Attenuation artifact is seen in anterior wall. No evidence of ischemia 2. LV systolic function is normal with EF of 72%. Terrell Macias MD (Electronically Signed) Final Date: 02 February 2024 12:14 S
[2024-01-30] MEDS: regadenoson 0.4 Mg/5 ml Syringe IVP (11:24)
[2024-01-30 11:40] VITALS: BP 125/65; PULSE 72
== END 2024-01-30 09:29 | disposition home or self-care (01) ==
LOC: CDL 09:29
PROVIDERS: PCP Internal Medicine; Visit Provider Internal Medicine
DX: R07.9 Chest pain, unspecified (principal); R06.02 Shortness of breath
CPT/HCPCS: 36415; 78452; 93017; 96374; A9500; J2785

== ENCOUNTER 2024-02-01 16:05 | Outpatient (CLI) | payer MEDICAID, SELFPAY ==
--- NOTE | 2024-02-01 16:11 | XR_ITS ---
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 No periosteal reaction or bone erosion is seen in the remnant tibia and fibula. XR/XR tibia fibula RT 2V [id number] IMPRESSION: No acute or subacute bone abnormality in the remnant tibia and fibula.
== END 2024-02-01 16:06 | disposition home or self-care (01) ==
LOC: RAD 16:07
PROVIDERS: PCP Internal Medicine; Visit Provider Nurse Practitioner Family
DX: M79.661 Pain in right lower leg (principal); Z89.511 Acquired absence of right leg below knee
CPT/HCPCS: 73590

== ENCOUNTER → 2024-03-20 10:07 | Outpatient (BNVA) | payer MEDICAID, SELFPAY | PROVIDERS: PCP Internal Medicine; Visit Provider Internal Medicine Rheumatology | DX: M05.79 Rheumatoid arthritis with rheumatoid factor of multiple sites without organ or systems involvement (principal); Z79.899 Other long term (current) drug therapy; Z71.85 Encounter for immunization safety counseling; M79.7 Fibromyalgia; L40.0 Psoriasis vulgaris | CPT/HCPCS: 36415; 80076; 82565; 85025; 85651; 86140; 99214 ==

== ENCOUNTER 2024-11-10 17:18 | Inpatient (IN) | payer SELFPAY ==
[2024-11-10] VITALS (11 sets, daily range): BP systolic 113–170; BP diastolic 67–79; PULSE 71–87; RESP 16–18; TEMP 36.7–36.9; O2SAT 91–100; BMI 34.3
--- NOTE | 2024-11-10 17:24 | XRR_ITS ---
PROCEDURE INFORMATION: Exam: XR Right Hip Exam date and time: 11/10/2024 5:54 PM Age: 54 years old Clinical indication: Hip pain; Right hip; Additional info: RT hip/pelvic pain post fall TECHNIQUE: Imaging protocol: Radiologic exam of the right hip. Views: 1 view hip with pelvis when performed. COMPARISON: [place] [id number] 03/07/2023 1:20 PM FINDINGS: Bones/joints: Right femoral neck fracture. No dislocation. Soft tissues: Unremarkable. XR/XR hip RT 2-3V wo/w pel* [id number] IMPRESSION: As above.
--- NOTE | 2024-11-10 17:24 | XRR_ITS ---
PROCEDURE INFORMATION: Exam: XR Sacrum and Coccyx, 2 or More Views Exam date and time: 11/10/2024 5:57 PM Age: 54 years old Clinical indication: Pain in coccyx area; Additional info: RT hip/tailbone pain post fall TECHNIQUE: Imaging protocol: XR of the sacrum and coccyx, 2 or more views. COMPARISON: CR (PELVIS, ) 11/10/2024 5:54 PM FINDINGS: Bones/joints: Nondiagnostic examination of the sacrum and coccyx due to technique and underpenetration. The remaining pelvis appears intact. Soft tissues: Normal. XR/XR sacrum coccyx min 2V [id number] IMPRESSION: As above.
--- NOTE | 2024-11-10 18:16 | W.ED.EXTPRO ---
HPI - Extremity Problem General: Chief complaint: Extremity Injury, Lower Stated complaint: right hip pain s/p fall Time Seen by Provider: 11/10/24 17:20 History of Present Illness: 54-year-old female presents with right hip pain and buttock pain. Patient has had 2 mechanical falls. Yesterday she had a mechanical fall landing on her buttock reports that her sacrum hurts. Today she had a mechanical fall and is complaining of right hip pain. 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 Patient tripped using her cane. No other injury. Associated symptoms: Deny chest pain or fever(s) Related Data Home Medications ?Medication ?Instructions ?Recorded ?Confirmed rosuvastatin 20 mg tablet (Crestor) 20 mg PO QAM 09/04/19 09/18/24 omeprazole 40 mg capsule,delayed 40 mg PO QAM 09/05/19 09/18/24 release epinephrine 0.3 mg/0.3 mL See Rx Instructions .Route 11/01/19 09/18/24 injection, auto-injector (EpiPen .COMPLEX PRN Allergic Reaction 2-Carrington) glucagon HCl 1 mg solution for 1 mg SUBCUT Q20M PRN blood sugar 11/01/19 09/18/24 injection (Glucagon (HCl) ##0 Emergency Kit) insulin aspart U-100 100 unit/mL See Rx Instructions .Route .COMPLEX 11/01/19 09/18/24 (3 mL) subcutaneous pen (Novolog FlexPen U-100 Insulin aspart) albuterol sulfate 2.5 mg/3 mL 2.5 mg inhalation Q6H PRN 04/01/20 09/18/24 (0.083 %) solution for nebulization Shortness Of Breath aspirin 81 mg tablet,delayed 81 mg PO DAILY@0800 08/15/20 09/18/24 release melatonin 3 mg capsule 3 mg PO BEDTIME 09/04/20 09/18/24 apixaban 5 mg tablet (Eliquis) 5 mg PO BID 11/24/20 09/18/24 tamsulosin 0.4 mg capsule (Flomax) 0.4 mg PO BEDTIME 05/22/21 09/18/24 alprazolam 0.25 mg tablet 0.25 mg PO DAILY PRN anxiety 09/16/22 09/18/24 sertraline 100 mg tablet (Zoloft) 100 mg PO QAM 01/12/23 09/18/24 acetaminophen 500 mg tablet 1,000 mg PO Q12H PRN Pain 03/07/23 09/18/24 albuterol sulfate 90 mcg/actuation 2 puff inhalation BID PRN 03/07/23 09/18/24 aerosol inhaler (Ventolin HFA) Shortness Of Breath ergocalciferol (vitamin D2) 1,250 50,000 unit PO Q7D 03/07/23 09/18/24 mcg (50,000 unit) capsule (Vitamin D2) folic acid 1 mg tablet 1 mg PO QAM 03/07/23 09/18/24 guaifenesin 600 mg tablet, 600 mg PO Q12H PRN Congestion 03/07/23 09/18/24 extended release 12 hr (Mucinex) magnesium hydroxide 400 mg/5 mL 30 ml PO DAILY PRN Constipation 03/07/23 09/18/24 oral suspension (Milk of Magnesia) ropinirole 3 mg tablet 3 mg PO BEDTIME 03/07/23 09/18/24 oxycodone 10 mg tablet mg PO 07/28/23 09/18/24 Previous Rx's ?Medication ?Instructions ?Recorded nitroglycerin 0.4 mg sublingual 0.4 mg sublingual Q5M PRN chest 09/09/19 tablet (Nitrostat) pain 30 days #25 tabs Knee Walker #1 ea 11/11/22 insulin glargine 100 unit/mL 50 unit (0.5 mL) SUBCUT DAILY@0800 03/10/23 subcutaneous solution #10 mL ipratropium 20 mcg-albuterol 100 1 puff inhalation Q6H PRN 04/25/23 mcg/actuation mist for inhalation Shortness Of Breath #4 grams (Combivent Respimat) diclofenac sodium 1 % topical gel 4 g topical QID #100 grams 07/28/23 (Voltaren Arthritis Pain) prednisone 5 mg tablet 5 mg PO DAILY PRN flares #60 tabs 03/20/24 prednisone 10 mg tablet See Rx Instructions PO DAILY joint 09/18/24 pain #30 tabs tofacitinib 5 mg tablet (Xeljanz) 5 mg PO BID #60 tabs 09/18/24 apremilast 30 mg tablet (Otezla) 30 mg PO BID #60 tabs 11/06/24 Allergies Allergy/AdvReac Type Severity Reaction Status Date / Time bee venom protein (honey bee) Allergy ALGY-Anaphy Verified 09/18/24 10:39 laxis topiramate (From Topamax) Allergy ADR-Halluci Verified 09/18/24 10:39 nating Review of Systems Const: Denies: fever(s) or chills Card: Denies: chest pain or palpitations Resp: Denies: dyspnea, productive cough or wheezing GI: Denies: abdominal pain, nausea or vomiting Musc: Reports: extremity pain and other (Please see HPI) Neuro: Denies: headache(s) Psych: Denies: anxiety PFSH ED PFSH: Medical History (Updated 11/10/24 @ 20:43 by Jhonny Ramos MD) PVD (peripheral vascular disease) Tobacco abuse COPD (chronic obstructive pulmonary disease) Bronchitis Plaque psoriasis Immunization counseling High risk medication use Seropositive rheumatoid arthritis of multiple sites Closed fracture of right distal fibula Fall at home Closed fracture of right distal tibia Closed right ankle fracture Fracture of distal end of tibia with fibula Acute gout of right ankle Psoriasis Cigarette smoker motivated to quit Thrombocytopenia Rheumatoid arthritis Transaminitis Immunocompromised Chronic anticoagulation Portal vein thrombosis COVID-19 Syncope Seizures Onychodystrophy Rheumatoid arthritis Closed fracture of right distal fibula Emphysema/COPD Avulsion fracture of left ankle Essential hypertension Claudication Spondylosis of lumbar region without myelopathy or radiculopathy Long-term current use of opiate analgesic Pain, joint, multiple sites Osteoporosis Fibromyalgia Diabetes DDD (degenerative disc disease), cervical Cervical spondylosis Tobacco use disorder Surgical History (Updated 11/10/24 @ 20:40 by Jhonny Ramos MD) Hx of right BKA S/P ANN-BSO S/P foot surgery Hx of section (~1989) Hx laparoscopic cholecystectomy H/O dilation and curettage Hx of hysterectomy Family History Mother Stroke Cancer SKIN CANCER Sister Stroke Other Diabetes Myocardial infarct Denies family history of Anesthesia complication Bleeding disorder Social History (Updated 11/10/24 @ 20:40 by Jhonny Ramos MD) Smoking and tobacco/nicotine status: current every day tobacco/nicotine user cigarettes Years cigarettes smoked: 40 [ Other cigarette details: 10 cigarettes/day currently] Quit status (tobacco/nicotine): considering quitting Second hand smoke exposure: Yes Alcohol intake: former Substance/Drug Use: never Additional social history: Patient wants full code as discussed today 11/10/2024 but no prolonged CPR or life support Caregiver/support person: Yes Lives independently: Yes Household members: spouse Marital status: Current occupational status: disabled Pets and animals: Yes Do you think of yourself as: Straight/Heterosexual Current gender identity: Female Physical Exam Const: COMMON NORMALS: no acute distress, patient oriented x3 and alert Resp: COMMON NORMALS: normal respiratory effort, No use of accessory muscles and clear to auscultation bilaterally AUSCULTATION: clear to auscultation bilaterally Cardio: COMMON NORMALS: regular rate and regular rhythm RATE: regular rate RHYTHM: regular rhythm GI: COMMON NORMALS: Soft to palpation and non-tender PALPATION: Yes Soft to palpation Extremity: NARRATIVE EXTREMITY EXAM: Right BKA. Mild tenderness right hip and groin no external rotation noted Neuro: COMMON NORMALS: patient oriented x3 SENSORIUM/ORIENTATION: Yes alert Psych: COMMON NORMALS: mental status grossly normal and cooperative Skin: COMMON NORMALS: no rashes or lesions noted GENERAL SKIN EXAM: no rashes or lesions noted Course Vital Signs: Vital signs: Vital Signs Temperature 98.1 F 11/10/24 17:24 Pulse Rate 83 11/10/24 17:24 Respiratory Rate 16 11/10/24 18:22 Blood Pressure 113/71 11/10/24 17:24 Pulse Oximetry 94 11/10/24 18:22 Oxygen Delivery Me thod Room Air 11/10/24 17:28 MDM - Extremity (Nontraumatic) Medical Decision Making Patient is x-ray was ordered review shows a right femoral neck fracture. Discussed case with orthopedic surgeon on-call Dr. Mullen along with Dr. Ramos hospitalist on-call. Patient will be admitted to Dr. Ramos for further inpatient management. Patient was stable upon admission. Lab Data 11/10/24 18:47 11/10/24 18:47 Radiology Impressions Hip/Pelvis X-Ray 11/10/24 17:24 IMPRESSION: As above. Sacrum and Coccyx X-Ray 11/10/24 17:24 IMPRESSION: As above. Chest X-Ray 11/10/24 18:26 IMPRESSION: As above. Laboratory Results WBC 16.07 10^3/uL (3.29-11.43) H 11/10/24 18:47 RBC 4.30 10^6/uL (3.85-5.65) 11/10/24 18:47 Hgb 12.90 g/dL (11.27-16.99) 11/10/24 18:47 Hct 39.2 % (36-47) 11/10/24 18:47 MCV 91.2 fl (85-98) 11/10/24 18:47 MCH 30.0 pg (27-33) 11/10/24 18: MCHC 32.9 g/dL (30-55) 11/10/24 18:47 RDW 13.4 % (12.1-15.1) 11/10/24 18: Plt Count 194 10^3/cmm (157-399) 11/10/24 18: MPV 10.5 fL (7.4-10.4) H 11/10/24 18:47 Neut % (Auto) 81.7 % 11/10/24 18:47 Lymph % (Auto) 13.6 % 11/10/24 18:47 [place] % (Auto) 2.9 % 11/10/24 18:47 Eos % (Auto) 0.7 % 11/10/24 18:47 Baso % (Auto) 0.5 % 11/10/24 18:47 Neut # (Auto) 13.12 10^3/uL (1.8-7.7) H 11/10/24 18:47 Lymph # (Auto) 2.2 10^3/uL (0.8-4.8) 11/10/24 18:47 [place] # (Auto) 0.5 10^3/uL (0.2-0.9) 11/10/24 18:47 Eos # (Auto) 0.1 10^3/uL (0.0-0.8) 11/10/24 18: Baso # (Auto) 0.1 10^3/uL (0.0-0.1) 11/10/24 18: Nucleated RBC % (auto) 0 % 11/10/24 18: Nucleated RBCs # 0.0 /100WBC 11/10/24 18: Sodium 133 mmol/L (136-145) L 11/10/24 18: Potassium 4.0 mmol/L (3.5-5.1) 11/10/24 18:47 Chloride 99 mmol/L (98-107) 11/10/24 18:47 Carbon Dioxide 21 mmol/L (22-29) L 11/10/24 18:47 Anion Gap 17.0 (5-19) 11/10/24 18:47 BUN 13 mg/dL (6-20) 11/10/24 18:47 Creatinine 0.5 mg/dL (0.5-0.9) 11/10/24 18:47 GFR Calculation 127.6 mL/min (90-130) 11/10/24 18:47 Glucose 103 mg/dL (65-115) 11/10/24 18:47 Calculated Osmolality 276 mOsm/kg (285-295) L 11/10/24 18:47 Calcium 8.8 mg/dL (8.5-10.5) 11/10/24 18:47 Total Bilirubin 0.7 mg/dL (0.15-1.2) 11/10/24 18:47 AST 160 U/L (0-32) H 11/10/24 18:47 ALT 48 U/L (0-33) H 11/10/24 18:47 Alkaline Phosphatase 285 U/L (35-105) H 11/10/24 18:47 Total Protein 6.4 g/dL (6.6-8.7) L 11/10/24 18:47 Albumin 3.1 g/dL (3.5-5.2) L 11/10/24 18:47 Globulin 3.3 g/dL (1.3-4.6) 11/10/24 18:47 All radiology interpretation(s) finalized by discharge Discharge Plan Discharge Patient Disposition: Admitted As Inpatient Admit Provider: Jhonny Ramos Clinical Impression: Fracture of femoral neck, right, closed Condition: Stable Coding Level of Care Code ED Abrasive Wheel Molder for Chikis Toro
[2024-11-10] MEDS: fentaNYL 50 mcg/mL INJ 2mL IVP (18:22)
--- NOTE | 2024-11-10 18:26 | XRR_ITS ---
PROCEDURE INFORMATION: Exam: XR Chest Exam date and time: 11/10/2024 6:03 PM Age: 54 years old Clinical indication: Pre-operative exam; Respiratory screening exam; Additional info: Pre op; RT hip FX TECHNIQUE: Imaging protocol: Radiologic exam of the chest. Views: 1 view. COMPARISON: CR XR chest 1V portable [id number] 03/09/2023 10:39 AM FINDINGS: Lungs: Patchy opacities in the right upper lung of an infectious/inflammatory etiology. Pleural spaces: Unremarkable. No pleural effusion. No pneumothorax. Heart/Mediastinum: Unremarkable. No cardiomegaly. Bones/joints: Chronic right-sided rib fractures. XR/XR chest 1V portable [id number] IMPRESSION: As above.
--- NOTE | 2024-11-10 18:45 | PC.NURSE ---
PT placed on 2L NC after fentanyl was administered to maintain O2 sats.
[2024-11-10 18:54] LABS: Basophils # 0.1 10^3/uL (0.0-0.1); Basophils % 0.5 %; Eosinophils # 0.1 10^3/uL (0.0-0.8); Eosinophils % 0.7 %; Hematocrit 39.2 % (36-47); Lymphocytes # 2.2 10^3/uL (0.8-4.8); Lymphocytes % 13.6 %; Mean Corpuscular HGB Conc 32.9 g/dL (30-55); Mean Corpuscular Volume 91.2 fl (85-98); Mean Platelet Volume 10.5 fL (7.4-10.4); Monocytes # 0.5 10^3/uL (0.2-0.9); Monocytes % 2.9 %; Neutrophils # 13.12 10^3/uL (1.8-7.7); Neutrophils % 81.7 %; Nucleated Red Blood Cells % 0 %; Platelet Count 194 10^3/cmm (157-399); Red Cell Distribution Width 13.4 % (12.1-15.1); White Blood Count 16.07 10^3/uL (3.29-11.43)
[2024-11-10 19:09] LABS: Alanine Aminotransferase 48 U/L (0-33); Albumin Level 3.1 g/dL (3.5-5.2); Alkaline Phosphatase 285 U/L (35-105); Aspartate Amino Transferase 160 U/L (0-32); Blood Urea Nitrogen 13 mg/dL (6-20); Calcium 8.8 mg/dL (8.5-10.5); Carbon Dioxide 21 mmol/L (22-29); Chloride 99 mmol/L (98-107); Globulin 3.3 g/dL (1.3-4.6); Glomerular Filtration Rate 127.6 mL/min (90-130); Glucose 103 mg/dL (65-115); Osmolality Calculated 276 mOsm/kg (285-295); Sodium 133 mmol/L (136-145); Total Bilirubin 0.7 mg/dL (0.15-1.2); Total Protein 6.4 g/dL (6.6-8.7)
[2024-11-10] MEDS: fentaNYL 50 mcg/mL INJ 2mL 75 MCG IVP (20:11)
--- NOTE | 2024-11-10 20:33 | PM.HP ---
Providers/Chief Complaint Admitting Physician: Jhonny Ramos MD Primary Care Provider: Nel Peacock MD Chief Complaint: right hip pain s/p fall History of Present Illness Erin Kelley is a 54 year old female with rheumatoid arthritis, diabetes, ongoing tobacco use. She had a mechanical trip and fall over her cane in the bedroom closet today and presented to the hospital with a right femoral neck fracture. 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 Patient is accompanied by her . She denies acute illness prior to this fall. Patient states her pain is 8-9/10 currently and dropped to 4/10 with the fentanyl but only lasted less than an hour of relief. She is on oxycodone 10 mg every 6 hours at home Review of old charts she had right ankle hardware and avascular necrosis plus Charcot foot and right BKA around June 2023 she had a nuclear medicine 01/30/2024 showing her heart was perfusing okay 01/24/2022 had shown slightly decreased tracer activity in the anterolateral and anterior region with reversibility possibly ischemia in distribution of the circumflex artery and left anterior descending artery. LVEF was 74% I am not completely clear why she is on apixaban but I think it is for history of portal vein thrombosis White count today 16 sodium 133 potassium 4 creatinine 0.5 AST 160 ALT 48. Patient denies fevers or chills she states her cough is her usual smoker's cough with clear to to yellow phlegm. She states is no different than usual. She denies dysuria or hematuria. Radiologist read as possibly right upper lung inflammation or infection but I do not see that on the x-ray. Review of Systems Narrative: General No fevers chills she has had weight gain 20 pounds in about a month she denies eating too much but admits to 1 soda Pepsi sugared daily. She uses insulin carb counting and blood sugar this morning 186 Cardiovascular no chest pain palpitations she has occasional leg edema in the left leg Respiratory positive for cough clear to yellow phlegm she has dyspnea on exertion at baseline GI positive for nausea last vomited a month ago she denies ongoing problems but has diarrhea and constipation intermittently no dysuria hematuria incontinence Neuro no seizures strokes limb weakness Psych she reports mild depression no suicidal ideation Medications/Allergies Home Medications ?Medication ?Instructions ?Recorded ?Confirmed ?Last Taken ?Type rosuvastatin 20 mg tablet (Crestor) 20 mg PO QAM 09/04/19 09/18/24 01/12/23 History omeprazole 40 mg capsule,delayed 40 mg PO QAM 09/05/19 09/18/24 01/13/23 History release nitroglycerin 0.4 mg sublingual 0.4 mg sublingual Q5M PRN chest 09/09/19 09/18/24 Unknown Rx tablet (Nitrostat) pain 30 days #25 tabs epinephrine 0.3 mg/0.3 mL See Rx Instructions .Route 11/01/19 09/18/24 Unknown History injection, auto-injector (EpiPen .COMPLEX PRN Allergic Reaction 2-Carrington) glucagon HCl 1 mg solution for 1 mg SUBCUT Q20M PRN blood sugar 11/01/19 09/18/24 Unknown History injection (Glucagon (HCl) ##0 Emergency Kit) insulin aspart U-100 100 unit/mL See Rx Instructions .Route .COMPLEX 11/01/19 09/18/24 01/12/23 08:00 History (3 mL) subcutaneous pen (Novolog FlexPen U-100 Insulin aspart) albuterol sulfate 2.5 mg/3 mL 2.5 mg inhalation Q6H PRN 04/01/20 09/18/24 12/14/22 History (0.083 %) solution for nebulization Shortness Of Breath aspirin 81 mg tablet,delayed 81 mg PO DAILY@0800 08/15/20 09/18/24 01/08/23 History release melatonin 3 mg capsule 3 mg PO BEDTIME 09/04/20 09/18/24 01/12/23 History apixaban 5 mg tablet (Eliquis) 5 mg PO BID 11/24/20 09/18/24 01/08/23 History tamsulosin 0.4 mg capsule (Flomax) 0.4 mg PO BEDTIME 05/22/21 09/18/24 01/12/23 History alprazolam 0.25 mg tablet 0.25 mg PO DAILY PRN anxiety 09/16/22 09/18/24 01/12/23 History Knee Walker #1 ea 11/11/22 09/18/24 Unknown Rx sertraline 100 mg tablet (Zoloft) 100 mg PO QAM 01/12/23 09/18/24 01/12/23 History acetaminophen 500 mg tablet 1,000 mg PO Q12H PRN Pain 03/07/23 09/18/24 Unknown History albuterol sulfate 90 mcg/actuation 2 puff inhalation BID PRN 03/07/23 09/18/24 Unknown History aerosol inhaler (Ventolin HFA) Shortness Of Breath ergocalciferol (vitamin D2) 1,250 50,000 unit PO Q7D 03/07/23 09/18/24 Unknown History mcg (50,000 unit) capsule (Vitamin D2) folic acid 1 mg tablet 1 mg PO QAM 03/07/23 09/18/24 Unknown History guaifenesin 600 mg tablet, 600 mg PO Q12H PRN Congestion 03/07/23 09/18/24 Unknown History extended release 12 hr (Mucinex) magnesium hydroxide 400 mg/5 mL 30 ml PO DAILY PRN Constipation 03/07/23 09/18/24 Unknown History oral suspension (Milk of Magnesia) ropinirole 3 mg tablet 3 mg PO BEDTIME 03/07/23 09/18/24 Unknown History insulin glargine 100 unit/mL 50 unit (0.5 mL) SUBCUT DAILY@0800 03/10/23 09/18/24 Unknown Rx subcutaneous solution #10 mL ipratropium 20 mcg-albuterol 100 1 puff inhalation Q6H PRN 04/25/23 09/18/24 Unknown Rx mcg/actuation mist for inhalation Shortness Of Breath #4 grams (Combivent Respimat) diclofenac sodium 1 % topical gel 4 g topical QID #100 grams 07/28/23 09/18/24 Unknown Rx (Voltaren Arthritis Pain) oxycodone 10 mg tablet mg PO 07/28/23 09/18/24 Unknown History prednisone 5 mg tablet 5 mg PO DAILY PRN flares #60 tabs 03/20/24 09/18/24 Unknown Rx prednisone 10 mg tablet See Rx Instructions PO DAILY joint 09/18/24 09/18/24 Unknown Rx pain #30 tabs tofacitinib 5 mg tablet (Xeljanz) 5 mg PO BID #60 tabs 09/18/24 09/18/24 Unknown Rx apremilast 30 mg tablet (Otezla) 30 mg PO BID #60 tabs 11/06/24 Unknown Rx Allergies Allergy/AdvReac Type Severity Reaction Status Date / Time bee venom protein (honey bee) Allergy ALGY-Anaphy Verified 09/18/24 10:39 laxis topiramate (From Topamax) Allergy ADR-Halluci Verified 09/18/24 10:39 nating PFSH Acute PFSH: Medical History (Updated 11/10/24 @ 20:43 by Jhonny Ramos MD) PVD (peripheral vascular disease) Tobacco abuse COPD (chronic obstructive pulmonary disease) Bronchitis Plaque psoriasis Immunization counseling High risk medication use Seropositive rheumatoid arthritis of multiple sites Closed fracture of right distal fibula Fall at home Closed fracture of right distal tibia Closed right ankle fracture Fracture of distal end of tibia with fibula Acute gout of right ankle Psoriasis Cigarette smoker motivated to quit Thrombocytopenia Rheumatoid arthritis Transaminitis Immunocompromised Chronic anticoagulation Portal vein thrombosis COVID-19 Syncope Seizures Onychodystrophy Rheumatoid arthritis Closed fracture of right distal fibula Emphysema/COPD Avulsion fracture of left ankle Essential hypertension Claudication Spondylosis of lumbar region without myelopathy or radiculopathy Long-term current use of opiate analgesic Pain, joint, multiple sites Osteoporosis Fibromyalgia Diabetes DDD (degenerative disc disease), cervical Cervical spondylosis Tobacco use disorder Surgical History (Updated 11/10/24 @ 20:40 by Jhonny Ramos MD) Hx of right BKA S/P ANN-BSO S/P foot surgery Hx of section (~1989) Hx laparoscopic cholecystectomy H/O dilation and curettage Hx of hysterectomy Family History Mother Stroke Cancer SKIN CANCER Sister Stroke Other Diabetes Myocardial infarct Denies family history of Anesthesia complication Bleeding disorder Social History (Updated 11/10/24 @ 20:40 by Jhonny Ramos MD) Smoking and tobacco/nicotine status: current every day tobacco/nicotine user cigarettes Years cigarettes smoked: 40 [ Other cigarette details: 10 cigarettes/day currently] Quit status (tobacco/nicotine): considering quitting Second hand smoke exposure: Yes Alcohol intake: former Substance/Drug Use: never Additional social history: Patient wants full code as discussed today 11/10/2024 but no prolonged CPR or life support Caregiver/support person: Yes Lives independently: Yes Household members: spouse Marital status: Current occupational status: disabled Pets and animals: Yes Do you think of yourself as: Straight/Heterosexual Current gender identity: Female Vitals/I&O/Wt Last Vital Signs Temp 98.1 F 11/10/24 17:24 Pulse 83 11/10/24 17:24 Resp 16 11/10/24 18:22 BP 113/71 11/10/24 17:24 Pulse Ox 94 11/10/24 18:22 O2 Del Method Room Air 11/10/24 17:28 Physical Exam Narrative: General Well-developed well-nourished obese female in no acute cardiopulmonary stress. There is odor of tobacco CV regular rate and rhythm Lungs clear to auscultation bilaterally no rales or wheezes or crackles Abdomen positive bowel sounds soft obese nontender Calves left calf no edema. Right stump glassware verifier and prosthetic attachment mount is in place Skin warm and dry Mood and affect normal Urinary Catheter Management: Dent: Cath Placed During This Visit: yes Urinary Catheter Date of Insertion: 11/10/24 Urinary Catheter Time of Insertion: 20:31 Data 11/10/24 18:47 11/10/24 18:47 A&P Assessment and plan (1) Fracture of femoral neck, right, closed: Patient is admitted to the hospital. She is on Eliquis long-term but that will be held with Lovenox given for DVT prophylaxis in the perioperative period. I think her Eliquis is for history of portal vein thrombosis (2) Bronchitis: Will treat with doxycycline 100 mg twice a day and guaifenesin (3) Diabetes: Diabetic 1500-calorie ADA weight loss diet and start sliding scale insulin. Continue home Lantus 50 units daily. She states she takes sliding scale insulin based on 3 units for 15 g carb at home. She may be a good candidate for GLP-1 weight loss injection but she has had some elevated LFTs and I am not sure if that is from her rheumatoid meds or other (4) COPD (chronic obstructive pulmonary disease): Stable see above treatment for bronchitis (5) Tobacco abuse: Patient counseled regarding need to stop smoking due to vascular disease and diabetes and limb loss. She is agreeable start nicotine patch 14 mg daily (6) PVD (peripheral vascular disease): As above continue aspirin 81 mg daily PDMP PDMP Reviewed: Not Reviewed Attestations Medical Necessity Statement*: Patient will be in the hospital for surgery for her right hip and expected to be hospitalized 3 to 4 days Coding Level of Care Code Acute Code for Chg Fwd Diagnoses Fracture of femoral neck, right, closed S72.001A Bronchitis J40 Type 2 diabetes mellitus with diabetic neuropathic arthropathy, with long-term current use of insulin E11.610; Z79.4 Diabetes mellitus complication detail: with neuropathic arthropathy Diabetes mellitus complication status: with diabetic arthropathy Diabetes mellitus halfway insulin use: with exterminator helper use Diabetes mellitus type: type 2 COPD (chronic obstructive pulmonary disease) J44.9 Tobacco abuse Z72.0 PVD (peripheral vascular disease) I73.9 Time Spent (min) 70
[2024-11-10 20:40] LABS: Bacteria Urine None Seen /hpf; Hyaline Casts Urine 0-4 /lpf; RBC Urine 0-2 /hpf (0-2); Squamous Epithelial Cell Urine 0-5 /hpf (0-5); WBC Urine 0-5 /hpf (0-5)
[2024-11-10 20:44] LABS: Bilirubin Urine Negative (Negative); Blood Urine Negative (Negative); Glucose Urine UA 1+ (Normal); Ketones Urine Negative (Negative); Leukocyte Esterase Urine Negative (Negative); Nitrate Urine Negative (Negative); Protein Urine 1+ (Negative); Specific Gravity, Urine 1.012 (1.005-1.030); Urine Color Yellow (Yellow); pH Urine 7.5 (5-7)
[2024-11-10 20:45] LABS: Urine Appearance Clear (CLEAR)
[2024-11-10 21:30] LABS: Glucose Point of Care 93 mg/dL (70-110)
[2024-11-10] MEDS: ipratropium-albuterol 3 mL Neb INHALATION (21:34)
[2024-11-10] MEDS: ropinirole 1 mg Tablet 3 MG PO (21:44)
[2024-11-10] MEDS: MELATONIN 3 MG TABLET PO (21:44)
[2024-11-10] MEDS: tamsulosin 0.4 mg Capsule PO (21:44)
[2024-11-10] MEDS: sodium chloride 0.9% 1,000 ML 75 ML IV (21:46)
[2024-11-10] MEDS: morphine 4 mg/mL SDV 1 mL IVP (21:57)
[2024-11-10] MEDS: nicotine 14 mg Patch 1 PATCH TRANSDERMA (22:26)
[2024-11-10] MEDS: oxyCODONE 5 mg IR Tab/Cap 10 MG PO (22:28)
[2024-11-10] MEDS: cyclobenzaprine 10 mg Tablet PO (23:29)
[2024-11-11] VITALS (21 sets, daily range): BP systolic 114–157; BP diastolic 65–93; PULSE 75–101; RESP 16–22; TEMP 36.6–37.3; O2SAT 3–96
[2024-11-11] MEDS: morphine 4 mg/mL SDV 1 mL IVP (01:39)
[2024-11-11] MEDS: pregabalin 50 mg Capsule PO ×3 (02:24→18:38)
[2024-11-11] MEDS: ketorolac 30 mg/mL INJ 15 MG IVP (02:24)
[2024-11-11] MEDS: atorvastatin 40 mg Tablet 80 MG PO (05:00)
[2024-11-11] MEDS: pantoprazole DR 40 mg Tablet PO (05:00)
[2024-11-11] MEDS: sertraline 100 mg Tablet PO (05:00)
[2024-11-11 06:26] LABS: Glucose Point of Care 94 mg/dL (70-110)
[2024-11-11] MEDS: ipratropium-albuterol 3 mL Neb INHALATION ×4 (07:42→19:23)
[2024-11-11] MEDS: insulin glargine 100 units/1 mL 50 UNIT SUBCUT (08:12)
[2024-11-11] MEDS: enoxaparin 40 mg/0.4 mL Syringe SUBCUT (08:12)
[2024-11-11] MEDS: docusate sodium 100 mg Capsule PO ×2 (08:12→18:38)
[2024-11-11] MEDS: doxycycline 100 mg Tablet PO ×2 (08:12→18:38)
[2024-11-11] MEDS: aspirin 81 mg EC Tablet PO (08:12)
[2024-11-11] MEDS: nicotine 14 mg Patch 1 PATCH TRANSDERMA (08:12)
[2024-11-11] MEDS: oxyCODONE 5 mg IR Tab/Cap 10 MG PO ×2 (08:16→14:15)
[2024-11-11] MEDS: cyclobenzaprine 10 mg Tablet PO (08:16)
--- NOTE | 2024-11-11 08:20 | PM.CONSULT ---
Providers/Reason For Consult Consulting Physician/Specialty*: Cheng Mullen MD Orthopedic surgery Reason for Consult*: Fractured right hip Attending Physician: Jhonny Ramos MD Primary Care Provider: Nel Peacock MD History of Present Illness History of Present Illness Erin Kelley is a 54 year old female Review of Systems Narrative: General No fevers chills she has had weight gain 20 pounds in about a month she denies eating too much but admits to 1 soda Pepsi sugared daily. She uses insulin carb counting and blood sugar this morning 186 Cardiovascular no chest pain palpitations she has occasional leg edema in the left leg Respiratory positive for cough clear to yellow phlegm she has dyspnea on exertion at baseline GI positive for nausea last vomited a month ago she denies ongoing problems but has diarrhea and constipation intermittently no dysuria hematuria incontinence Neuro no seizures strokes limb weakness Psych she reports mild depression no suicidal ideation Const: Denies: fever(s) or chills Eyes: Denies: photophobia ENMT: Denies: enlarged tonsils Card: Denies: chest pain or palpitations Resp: Denies: dyspnea, productive cough or wheezing GI: Denies: abdominal pain, nausea or vomiting Musc: Reports: extremity pain and other (Please see HPI); Denies: joint warmth Skin/Breast: Reports: surgical incision Neuro: Denies: headache(s) Psych: Denies: anxiety All/Imm: Denies: acute wheezing Medications/Allergies Home Medications ?Medication ?Instructions ?Recorded ?Confirmed ?Last Taken ?Type rosuvastatin 20 mg tablet (Crestor) 20 mg PO QAM 09/04/19 11/10/24 11/10/24 History omeprazole 40 mg capsule,delayed 40 mg PO QAM 09/05/19 11/10/24 11/10/24 History release nitroglycerin 0.4 mg sublingual 0.4 mg sublingual Q5M PRN chest 09/09/19 11/10/24 Unknown Rx tablet (Nitrostat) pain 30 days #25 tabs epinephrine 0.3 mg/0.3 mL See Rx Instructions .Route 11/01/19 11/10/24 Unknown History injection, auto-injector (EpiPen .COMPLEX PRN Allergic Reaction 2-Carrington) glucagon HCl 1 mg solution for 1 mg SUBCUT Q20M PRN blood sugar 11/01/19 11/10/24 Unknown History injection (Glucagon (HCl) ##0 Emergency Kit) insulin aspart U-100 100 unit/mL See Rx Instructions .Route .COMPLEX 11/01/19 11/10/24 11/10/24 History (3 mL) subcutaneous pen (Novolog FlexPen U-100 Insulin aspart) albuterol sulfate 2.5 mg/3 mL 2.5 mg inhalation Q6H PRN 04/01/20 11/10/24 12/14/22 History (0.083 %) solution for nebulization Shortness Of Breath aspirin 81 mg tablet,delayed 81 mg PO DAILY@0800 08/15/20 11/10/24 11/10/24 History release melatonin 3 mg capsule 3 mg PO BEDTIME 09/04/20 11/10/24 11/10/24 History apixaban 5 mg tablet (Eliquis) 5 mg PO BID 11/24/20 11/10/24 11/08/24 History tamsulosin 0.4 mg capsule (Flomax) 0.4 mg PO BEDTIME 05/22/21 11/10/24 11/09/24 History alprazolam 0.25 mg tablet 0.25 mg PO DAILY PRN anxiety 09/16/22 11/10/24 01/12/23 History Knee Walker #1 ea 11/11/22 11/10/24 Unknown Rx sertraline 100 mg tablet (Zoloft) 100 mg PO QAM 01/12/23 11/10/24 11/09/24 History acetaminophen 500 mg tablet 1,000 mg PO Q12H PRN Pain 03/07/23 11/10/24 Unknown History albuterol sulfate 90 mcg/actuation 2 puff inhalation BID PRN 03/07/23 11/10/24 Unknown History aerosol inhaler (Ventolin HFA) Shortness Of Breath ergocalciferol (vitamin D2) 1,250 50,000 unit PO Q7D 03/07/23 11/10/24 11/10/24 History mcg (50,000 unit) capsule (Vitamin D2) folic acid 1 mg tablet 1 mg PO QAM 03/07/23 11/10/24 11/10/24 History guaifenesin 600 mg tablet, 600 mg PO Q12H PRN Congestion 03/07/23 11/10/24 Unknown History extended release 12 hr (Mucinex) magnesium hydroxide 400 mg/5 mL 30 ml PO DAILY PRN Constipation 03/07/23 11/10/24 Unknown History oral suspension (Milk of Magnesia) ropinirole 3 mg tablet 3 mg PO BEDTIME 03/07/23 11/10/24 11/10/24 History insulin glargine 100 unit/mL 50 unit (0.5 mL) SUBCUT DAILY@0800 03/10/23 11/10/24 11/10/24 Rx subcutaneous solution #10 mL ipratropium 20 mcg-albuterol 100 1 puff inhalation Q6H PRN 04/25/23 11/10/24 Unknown Rx mcg/actuation mist for inhalation Shortness Of Breath #4 grams (Combivent Respimat) diclofenac sodium 1 % topical gel 4 g topical QID #100 grams 07/28/23 11/10/24 11/10/24 Rx (Voltaren Arthritis Pain) oxycodone 10 mg tablet 10 mg PO Q4H PRN Pain 07/28/23 11/10/24 11/10/24 History prednisone 5 mg tablet 5 mg PO DAILY PRN flares #60 tabs 03/20/24 11/10/24 Unknown Rx prednisone 10 mg tablet See Rx Instructions PO DAILY joint 09/18/24 11/10/24 Unknown Rx pain #30 tabs tofacitinib 5 mg tablet (Xeljanz) 5 mg PO BID #60 tabs 09/18/24 11/10/24 11/10/24 Rx apremilast 30 mg tablet (Otezla) 30 mg PO BID #60 tabs 11/06/24 11/10/24 11/10/24 Rx Allergies Allergy/AdvReac Type Severity Reaction Status Date / Time bee venom protein (honey bee) Allergy ALGY-Anaphy Verified 09/18/24 10:39 laxis topiramate (From Topamax) Allergy ADR-Halluci Verified 09/18/24 10:39 nating Current Medications Generic Name Dose Route Start Last Admin Trade Name Freq PRN Reason Stop Dose Admin Albuterol/Ipratropium 3 ml 11/10/24 20:30 11/11/24 07:42 Ipratropium-Albuterol 3 Ml Neb INHALATION 3 ml QID.RESPIRATORY PHONG Administration Atorvastatin Calcium 80 mg 11/11/24 06:00 11/11/24 05:00 Atorvastatin 40 Mg Tablet PO 80 mg QAM PHONG Administration Cyclobenzaprine HCl 10 mg 11/10/24 23:17 11/10/24 23:29 Cyclobenzaprine 10 Mg Tablet PO 10 mg TID PRN Administration MUSCLE SPASMS Sodium Chloride 1,000 mls @ 75 mls/hr 11/10/24 21:24 11/10/24 21:46 Sodium Chloride 0.9% IV 75 mls/hr .[id number] PHONG Administration Insulin Human Lispro 0 unit 11/10/24 21:24 11/11/24 07:45 Insulin Lispro 100 Unit/1 Ml SUBCUT Not Given WM&BEDTIME PHONG Protocol Melatonin 3 mg 11/10/24 21:00 11/10/24 21:44 Melatonin 3 Mg Tablet PO 3 mg BEDTIME PHONG Administration Nicotine 1 patch 11/10/24 21:52 11/10/24 22:26 Nicotine 14 Mg Patch TRANSDERMA 1 patch DAILY PHONG Administration Oxycodone HCl 10 mg 11/10/24 21:24 11/10/24 22:28 Oxycodone 5 Mg Ir Tab/Cap PO 10 mg Q6H PRN Administration SEVERE PAIN Pantoprazole Sodium 40 mg 11/11/24 06:00 11/11/24 05:[address] 40 Mg Tablet PO 40 mg QAM PHONG Administration Pregabalin 50 mg 11/11/24 01:55 11/11/24 02:24 Pregabalin 50 Mg Capsule PO 50 mg BID PHONG Administration Ropinirole HCl 3 mg 11/10/24 21:00 11/10/24 21:44 Ropinirole 1 Mg Tablet PO 3 mg BEDTIME PHONG Administration Sertraline HCl 100 mg 11/11/24 06:00 11/11/24 05:00 Sertraline 100 Mg Tablet PO 100 mg QAM PHONG Administration Tamsulosin HCl 0.4 mg 11/10/24 21:00 11/10/24 21:44 Tamsulosin 0.4 Mg Capsule PO 0.4 mg BEDTIME PHONG Administration PFSH Acute PFSH: Medical History (Updated 11/11/24 @ 08:22 by Cheng Mullen MD) PVD (peripheral vascular disease) Tobacco abuse COPD (chronic obstructive pulmonary disease) Bronchitis Plaque psoriasis Immunization counseling High risk medication use Seropositive rheumatoid arthritis of multiple sites Closed fracture of right distal fibula Fall at home Closed fracture of right distal tibia Closed right ankle fracture Fracture of distal end of tibia with fibula Acute gout of right ankle Psoriasis Cigarette smoker motivated to quit Thrombocytopenia Rheumatoid arthritis Transaminitis Immunocompromised Chronic anticoagulation Portal vein thrombosis COVID-19 Syncope Seizures Onychodystrophy Rheumatoid arthritis Closed fracture of right distal fibula Emphysema/COPD Avulsion fracture of left ankle Essential hypertension Claudication Spondylosis of lumbar region without myelopathy or radiculopathy Long-term current use of opiate analgesic Pain, joint, multiple sites Osteoporosis Fibromyalgia Diabetes DDD (degenerative disc disease), cervical Cervical spondylosis Tobacco use disorder Surgical History (Updated 11/10/24 @ 20:40 by Jhonny Ramos MD) Hx of right BKA S/P ANN-BSO S/P foot surgery Hx of section (~1989) Hx laparoscopic cholecystectomy H/O dilation and curettage Hx of hysterectomy Family History Mother Stroke Cancer SKIN CANCER Sister Stroke Other Diabetes Myocardial infarct Denies family history of Anesthesia complication Bleeding disorder Social History (Updated 11/10/24 @ 20:40 by Jhonny Ramos MD) Smoking and tobacco/nicotine status: current every day tobacco/nicotine user cigarettes Years cigarettes smoked: 40 [ Other cigarette details: 10 cigarettes/day currently] Quit status (tobacco/nicotine): considering quitting Second hand smoke exposure: Yes Alcohol intake: former Substance/Drug Use: never Additional social history: Patient wants full code as discussed today 11/10/2024 but no prolonged CPR or life support Caregiver/support person: Yes Lives independently: Yes Household members: spouse Marital status: Current occupational status: disabled Pets and animals: Yes Do you think of yourself as: Straight/Heterosexual Current gender identity: Female Dietary Habits: Current diet type/program: regular Caffeine: Yes Home Safety: Firearms in home: Yes Firearms unloaded and locked?: Yes Vitals/I&O/Wt Last Vital Signs Temp 98.5 F 11/11/24 08:00 Pulse 75 11/11/24 08:00 Resp 18 11/11/24 08:00 BP 157/70 11/11/24 08:00 Pulse Ox 96 11/11/24 08:00 O2 Del Method Nasal Cannula 11/11/24 08:00 O2 Flow Rate 1 11/11/24 07:47 0511/11/24 11/11/24 22:59 06:59 14:59 Intake Total 240 / 240 Output Total 600 / 600 Balance 240 / 240 -600 / -360 Weight last 48 hrs Weight 210 lb 1.6 oz Weight 206 lb 8 oz Weight 202 lb Physical Exam Narrative: Orthopedic exam today patient is laying in bed appears to be comfortable. States she does have pain about her right hip. She has below-knee amputation on this side with no abnormalities of the distal stump. She has pain with any manipulation of the hip. She otherwise appears to be neurovascular intact in his lower extremity. Urinary Catheter Management: Dent: Cath Placed During This Visit: yes Reason for Continuing Indwelling Catheter: Required Immobilization for Trauma or Surgery or Anesthesia Urinary Catheter Date of Insertion: 11/10/24 Urinary Catheter Time of Insertion: 20:31 Data 11/10/24 18:47 11/10/24 18:47 Other data: X-rays have been reviewed demonstrating a femoral neck fracture of the right hip A&P Assessment and plan (1) Fracture of femoral neck, right, closed: Patient with displaced femoral neck fracture of the right hip, below-knee amputation on the same side Plan Plan at this time is for endoprosthetic replacement of the right hip. Due to the fact that she is on Eliquis we will have to hold off for 48 hours. Therefore she has been placed on the surgery schedule at the end of the day tomorrow, 11/12/2024. I have discussed with her the findings of the x-rays as well as the recommendations. I do not believe that pinning this fracture would be of benefit for her. Due to her present health status I do not believe the femoral neck fracture will heal on her at this time. Therefore I have offered her a endoprosthetic replacement of her right hip. All risk benefits treatment alternatives have been discussed with her and she is agreeable with this at this time. PDMP PDMP Reviewed: Not Reviewed Coding Level of Care Code Acute Code for Chg Fwd Diagnoses Closed fracture of neck of right femur, initial encounter S72.001A Encounter type: initial encounter
[2024-11-11] MEDS: morphine 4 mg/mL SDV 1 mL 8 MG IVP ×3 (10:31→19:53)
[2024-11-11] MEDS: sodium chloride 0.9% 1,000 ML 75 ML IV ×2 (10:33→23:21)
[2024-11-11] MEDS: cefTRIAXone 1,000 mg SDV 1000 MG IVP (10:33)
[2024-11-11 10:35] LABS: Estmated Average Glucose 186; Hemoglobin A1C 8.1 % (4.0-6.0)
[2024-11-11 11:22] LABS: Glucose Point of Care 100 mg/dL (70-110)
--- NOTE | 2024-11-11 13:48 | P.PN_ITS ---
Subjective 2 Subjective: Seen this morning. No acute events overnight. Patient states at home she has been experiencing low blood sugars at certain times. Vitals/I&O/Wt Last Vital Signs Temp 97.9 F 11/11/24 11:34 Pulse 82 11/11/24 11:34 Resp 16 11/11/24 11:34 BP 135/77 11/11/24 11:34 Pulse Ox 93 11/11/24 11:34 O2 Del Method Nasal Cannula 11/11/24 11:34 O2 Flow Rate 1 11/11/24 11:05 11/10/24 11/11/24 11/11/24 22:59 06:59 14:59 Intake Total 240 / 240 1438.75 / 1438.75 Output Total 600 / 600 Balance 240 / 240 -600 / -360 1438.75 / 1438.75 Weight last 48 hrs Weight 95.3 kg Weight 93.667 kg Weight 91.626 kg Physical Exam 2 Narrative: General Well-developed well-nourished obese female in no acute cardiopulmonary stress. CV regular rate and rhythm Lungs clear to auscultation bilaterally no rales or wheezes or crackles Abdomen positive bowel sounds soft obese nontender Skin warm and dry Mood and affect normal Urinary Catheter Management: Dent: Cath Placed During This Visit: yes Reason for Continuing Indwelling Catheter: Required Immobilization for Trauma or Surgery or Anesthesia Urinary Catheter Date of Insertion: 11/10/24 Urinary Catheter Time of Insertion: 20:31 Data 11/10/24 18:47 11/10/24 18:47 A&P Assessment and plan (1) Fracture of femoral neck, right, closed: Patient is admitted to the hospital. She is on Eliquis long-term but that will be held with Lovenox given for DVT prophylaxis in the perioperative period. I think her Eliquis is for history of portal vein thrombosis (2) Bronchitis: Will treat with doxycycline 100 mg twice a day and guaifenesin (3) Diabetes: Diabetic 1500-calorie ADA weight loss diet and start sliding scale insulin. Continue home Lantus 50 units daily. She states she takes sliding scale insulin based on 3 units for 15 g carb at home. She may be a good candidate for GLP-1 weight loss injection but she has had some elevated LFTs and I am not sure if that is from her rheumatoid meds or other (4) COPD (chronic obstructive pulmonary disease): Stable see above treatment for bronchitis (5) Tobacco abuse: Patient counseled regarding need to stop smoking due to vascular disease and diabetes and limb loss. She is agreeable start nicotine patch 14 mg daily (6) PVD (peripheral vascular disease): As above continue aspirin 81 mg daily Plan 11/11/2024 Hold Eliquis for 48 hours. Plan for hip replacement tomorrow evening. Orthopedic surgery consulted. Appreciate recommendations Infiltrate right upper lung. Possible pneumonia?. Patient has been having coughing with sputum production. Does have a history of COPD. Continue doxycycline and ceftriaxone. States has been having some hypoglycemic episodes. Is a type I diabetic. She is on Lantus 50 units daily with sliding scale lispro with insulin to carb ratio 1:3. Patient will be n.p.o. tonight. Will dose reduce Lantus to 25 units at bedtime for today. Continue low-dose sliding scale insulin. Continue normal saline 75 cc/h. New oxygen requirement of 1 to 2 L nasal cannula. Not on any oxygen at home. WBC 16,000 most likely reactive secondary to recent hip fracture. Check EKG PDMP PDMP Reviewed: Not Reviewed Attestations 2 Medical Necessity Statement*: Patient will be in the hospital for surgery for her right hip and expected to be hospitalized 3 to 4 days Coding Level of Care Code Acute Code for [facility] Fwd Diagnoses Closed fracture of neck of right femur, initial encounter S72.001A Encounter type: initial encounter Bronchitis J40 Type 2 diabetes mellitus with diabetic neuropathic arthropathy, with long-term current use of insulin E11.610; Z79.4 Diabetes mellitus complication detail: with neuropathic arthropathy Diabetes mellitus complication status: with diabetic arthropathy Diabetes mellitus rigger third insulin use: with rigger third use Diabetes mellitus type: type 2 COPD (chronic obstructive pulmonary disease) J44.9 Tobacco abuse Z72.0 PVD (peripheral vascular disease) I73.9
--- NOTE | 2024-11-11 14:15 | ECG_ITS ---
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 Measurements Intervals [place] Rate: 82 P: 57 DC: 155 QRS: 9 QRSD: 76 T: 53 QT: 399 QTc: 469 Interpretive Statements SINUS RHYTHM POSSIBLE LEFT ATRIAL ENLARGEMENT [-0.1mV P-WAVE IN V1/V2] NONSPECIFIC ST & T-WAVE ABNORMALITY Compared to ECG 05/02/2023 15:23:59 T-wave abnormality now present ST (T wave) deviation no longer present Electronically Signed On 11-13-2024 23:44:29 CDT by Jozef Greer M.D. [email or web address]
[2024-11-11 17:00] LABS: Glucose Point of Care 146 mg/dL (70-110)
[2024-11-11] MEDS: insulin lispro 100 unit/1 mL SUBCUT (18:38)
[2024-11-11] MEDS: ropinirole 1 mg Tablet 3 MG PO (20:05)
[2024-11-11] MEDS: MELATONIN 3 MG TABLET PO (20:06)
[2024-11-11] MEDS: tamsulosin 0.4 mg Capsule PO (20:06)
[2024-11-11 20:59] LABS: Glucose Point of Care 130 mg/dL (70-110)
[2024-11-12] VITALS (23 sets, daily range): BP systolic 90–133; BP diastolic 47–80; PULSE 91–130; RESP 14–34; TEMP 36.1–37.8; O2SAT 6–96
[2024-11-12 05:11] LABS: Basophils # 0.1 10^3/uL (0.0-0.1); Basophils % 0.6 %; Eosinophils # 0.2 10^3/uL (0.0-0.8); Eosinophils % 2.9 %; Hematocrit 38.5 % (36-47); Lymphocytes # 0.8 10^3/uL (0.8-4.8); Lymphocytes % 10.3 %; Mean Corpuscular HGB Conc 30.9 g/dL (30-55); Mean Corpuscular Hemoglobin 29.2 pg (27-33); Mean Corpuscular Volume 94.6 fl (85-98); Mean Platelet Volume 10.7 fL (7.4-10.4); Monocytes # 0.3 10^3/uL (0.2-0.9); Monocytes % 4.2 %; Neutrophils # 6.39 10^3/uL (1.8-7.7); Neutrophils % 81.6 %; Nucleated Red Blood Cells % 0 %; Platelet Count 151 10^3/cmm (157-399); Red Blood Count 4.07 10^6/uL (3.85-5.65); Red Cell Distribution Width 13.6 % (12.1-15.1); White Blood Count 7.84 10^3/uL (3.29-11.43)
[2024-11-12 05:35] LABS: Anion Gap 14.5 (5-19); Blood Urea Nitrogen 9 mg/dL (6-20); Calcium 8.1 mg/dL (8.5-10.5); Carbon Dioxide 22 mmol/L (22-29); Chloride 103 mmol/L (98-107); Creatinine Clr Calc Pharmacy 102.4533; Glomerular Filtration Rate 86.6 mL/min (90-130); Glucose 67 mg/dL (65-115); Magnesium 1.8 mg/dL (1.7-2.3); Osmolality Calculated 277 mOsm/kg (285-295); Potassium 4.5 mmol/L (3.5-5.1); Sodium 135 mmol/L (136-145)
[2024-11-12] MEDS: atorvastatin 40 mg Tablet 80 MG PO (06:05)
[2024-11-12] MEDS: sertraline 100 mg Tablet PO (06:05)
[2024-11-12] MEDS: pantoprazole DR 40 mg Tablet PO (06:05)
[2024-11-12 06:46] LABS: Glucose Point of Care 88 mg/dL (70-110)
[2024-11-12] MEDS: ondansetron 2 mg/ML SDV 2 mL 4 MG IVP (07:09)
[2024-11-12] MEDS: aspirin 81 mg EC Tablet PO (08:36)
[2024-11-12] MEDS: pregabalin 50 mg Capsule PO ×2 (08:36→17:12)
[2024-11-12] MEDS: doxycycline 100 mg Tablet PO ×2 (08:36→17:12)
[2024-11-12] MEDS: nicotine 14 mg Patch 1 PATCH TRANSDERMA (08:36)
[2024-11-12] MEDS: cyclobenzaprine 10 mg Tablet PO ×2 (08:36→22:45)
[2024-11-12] MEDS: docusate sodium 100 mg Capsule PO ×2 (08:36→17:12)
[2024-11-12] MEDS: enoxaparin 40 mg/0.4 mL Syringe SUBCUT (08:36)
[2024-11-12] MEDS: cefTRIAXone 1,000 mg SDV 1000 MG IVP (08:36)
[2024-11-12] MEDS: ipratropium-albuterol 3 mL Neb INHALATION ×3 (09:07→20:12)
[2024-11-12 11:20] LABS: Glucose Point of Care 123 mg/dL (70-110)
--- NOTE | 2024-11-12 11:22 | PC.NURSE ---
This nurse gave report to RUTHANN Holland in OPS at 1120. They will come get pt at 1330.
--- NOTE | 2024-11-12 13:28 | ANES.PREANE2 ---
Pre-Anesthetic Assessment Height/Weight: Height 5 ft 5 in Weight 214 lb Temp Pulse Resp BP Pulse Ox O2 Del Method O2 Flow Rate 100.1 F H 107 H 18 133/65 90 Nasal Cannula 4 11/12/24 11:22 11/12/24 11:22 11/12/24 11:22 11/12/24 11:22 11/12/24 11:22 11/12/24 11:22 11/12/24 11:22 Preop Diagnosis: Hip fracture Operation Date: 11/12/24 14:50 Proposed Procedures p Hemiarthroplasty Hip , Endoproarthesis(Right) - Cheng Mullen MD Was Beta Brooke taken within 24 hours: N/A Was Clonidine taken within 24 hours: N/A Last intake: Intake Last Liquid Date 11/10/24 Last Liquid Time 23:00 Last Solid Date 11/09/24 Last Solid Time 20:00 Social Tobacco and No alcohol Exam alert, oriented x 3 and regular rate & rhythm Rhonchi noticed on auscultation Airway Submandibular: within normal limits Cervical ROM: within normal limits Mallampati: Class III Anesthetic Plan ASA status: 3 Anesthesia: General Other: No prior issues with anesthesia NPO since yesterday evening Patient is on chronic Eliquis, bridged with Lovenox during hospitalization. History of PE Patient currently on 6 L nasal cannula with SpO2 of 90%. No home oxygen. Rhonchorous lung sounds. Will plan on preop DuoNeb COPD, current smoker Type 2 diabetes on chronic insulin, BS 123 today EKG showing sinus rhythm with probable left atrial enlargement Prior stress test 2023 was negative Plan for general anesthesia Medications/Allergies Home Medications ?Medication ?Instructions ?Recorded ?Confirmed ?Last Taken ?Type rosuvastatin 20 mg tablet (Crestor) 20 mg PO QAM 09/04/19 11/10/24 11/10/24 History omeprazole 40 mg capsule,delayed 40 mg PO QAM 09/05/19 11/10/24 11/10/24 History release nitroglycerin 0.4 mg sublingual 0.4 mg sublingual Q5M PRN chest 09/09/19 11/10/24 Unknown Rx tablet (Nitrostat) pain 30 days #25 tabs epinephrine 0.3 mg/0.3 mL See Rx Instructions .Route 11/01/19 11/10/24 Unknown History injection, auto-injector (EpiPen .COMPLEX PRN Allergic Reaction 2-Carrington) glucagon HCl 1 mg solution for 1 mg SUBCUT Q20M PRN blood sugar 11/01/19 11/10/24 Unknown History injection (Glucagon (HCl) ##0 Emergency Kit) insulin aspart U-100 100 unit/mL See Rx Instructions .Route .COMPLEX 11/01/19 11/10/24 11/10/24 History (3 mL) subcutaneous pen (Novolog FlexPen U-100 Insulin aspart) albuterol sulfate 2.5 mg/3 mL 2.5 mg inhalation Q6H PRN 04/01/20 11/10/24 12/14/22 History (0.083 %) solution for nebulization Shortness Of Breath aspirin 81 mg tablet,delayed 81 mg PO DAILY@0800 08/15/20 11/10/24 11/10/24 History release melatonin 3 mg capsule 3 mg PO BEDTIME 09/04/20 11/10/24 11/10/24 History apixaban 5 mg tablet (Eliquis) 5 mg PO BID 11/24/20 11/10/24 11/08/24 History tamsulosin 0.4 mg capsule (Flomax) 0.4 mg PO BEDTIME 05/22/21 11/10/24 11/09/24 History alprazolam 0.25 mg tablet 0.25 mg PO DAILY PRN anxiety 09/16/22 11/10/24 01/12/23 History Knee Walker #1 ea 11/11/22 11/10/24 Unknown Rx sertraline 100 mg tablet (Zoloft) 100 mg PO QAM 01/12/23 11/10/24 11/09/24 History acetaminophen 500 mg tablet 1,000 mg PO Q12H PRN Pain 03/07/23 11/10/24 Unknown History albuterol sulfate 90 mcg/actuation 2 puff inhalation BID PRN 03/07/23 11/10/24 Unknown History aerosol inhaler (Ventolin HFA) Shortness Of Breath ergocalciferol (vitamin D2) 1,250 50,000 unit PO Q7D 03/07/23 11/10/24 11/10/24 History mcg (50,000 unit) capsule (Vitamin D2) folic acid 1 mg tablet 1 mg PO QAM 03/07/23 11/10/24 11/10/24 History guaifenesin 600 mg tablet, 600 mg PO Q12H PRN Congestion 03/07/23 11/10/24 Unknown History extended release 12 hr (Mucinex) magnesium hydroxide 400 mg/5 mL 30 ml PO DAILY PRN Constipation 03/07/23 11/10/24 Unknown History oral suspension (Milk of Magnesia) ropinirole 3 mg tablet 3 mg PO BEDTIME 03/07/23 11/10/24 11/10/24 History insulin glargine 100 unit/mL 50 unit (0.5 mL) SUBCUT DAILY@0800 03/10/23 11/10/24 11/10/24 Rx subcutaneous solution #10 mL ipratropium 20 mcg-albuterol 100 1 puff inhalation Q6H PRN 04/25/23 11/10/24 Unknown Rx mcg/actuation mist for inhalation Shortness Of Breath #4 grams (Combivent Respimat) diclofenac sodium 1 % topical gel 4 g topical QID #100 grams 07/28/23 11/10/24 11/10/24 Rx (Voltaren Arthritis Pain) oxycodone 10 mg tablet 10 mg PO Q4H PRN Pain 07/28/23 11/10/24 11/10/24 History prednisone 5 mg tablet 5 mg PO DAILY PRN flares #60 tabs 03/20/24 11/10/24 Unknown Rx prednisone 10 mg tablet See Rx Instructions PO DAILY joint 09/18/24 11/10/24 Unknown Rx pain #30 tabs tofacitinib 5 mg tablet (Xeljanz) 5 mg PO BID #60 tabs 09/18/24 11/10/24 11/10/24 Rx apremilast 30 mg tablet (Otezla) 30 mg PO BID #60 tabs 11/06/24 11/10/24 11/10/24 Rx Allergies Allergy/AdvReac Type Severity Reaction Status Date / Time bee venom protein (honey bee) Allergy ALGY-Anaphy Verified 09/18/24 10:39 laxis topiramate (From Topamax) Allergy ADR-Halluci Verified 09/18/24 10:39 nating Current Medications Generic Name Dose Route Start Last Admin Trade Name Freq PRN Reason Stop Dose Admin Albuterol/Ipratropium 3 ml 11/10/24 20:30 11/12/24 09:07 Ipratropium-Albuterol 3 Ml Neb INHALATION 3 ml QID.RESPIRATORY PHONG Administration Aspirin 81 mg 11/11/24 08:00 11/12/24 08:36 Aspirin 81 Mg Ec Tablet PO 81 mg DAILY@0800 [facility] Administration Atorvastatin Calcium 80 mg 11/11/24 06:00 11/12/24 06:05 Atorvastatin 40 Mg Tablet PO 80 mg QAM PHONG Administration Ceftriaxone Sodium 1,000 mg 11/11/24 10:00 11/12/24 08:36 Ceftriaxone 1,000 Mg Sdv IVP 1,000 mg Q24H PHONG Administration Protocol Cyclobenzaprine HCl 10 mg 11/10/24 23:17 11/12/24 08:36 Cyclobenzaprine 10 Mg Tablet PO 10 mg TID PRN Administration MUSCLE SPASMS Docusate Sodium 100 mg 11/11/24 09:00 11/12/24 08:36 Docusate Sodium 100 Mg Capsule PO 100 mg BID PHONG Administration Doxycycline Monohydrate 100 mg 11/11/24 09:00 11/12/24 08:36 Doxycycline 100 Mg Tablet PO 100 mg BID PHONG Administration Protocol Enoxaparin Sodium 40 mg 11/11/24 09:00 11/12/24 08:36 Enoxaparin 40 Mg/0.4 Ml Syringe SUBCUT 40 mg DAILY [facility] Administration Sodium Chloride 1,000 mls @ 75 mls/hr 11/10/24 21:24 11/12/24 12:41 Sodium Chloride 0.9% IV Infused .[id number] [facility] Infusion Insulin Glargine 25 unit 11/12/24 08:00 11/12/24 08:35 Insulin Glargine 100 Units/1 Ml SUBCUT Not Given DAILY@0800 [facility] Insulin Human Lispro 0 unit 11/10/24 21:24 11/12/24 11:25 Insulin Lispro 100 Unit/1 Ml SUBCUT Not Given WM&BEDTIME [facility] Protocol Melatonin 3 mg 11/10/24 21:00 11/11/24 20:06 Melatonin 3 Mg Tablet PO 3 mg BEDTIME [facility] Administration Morphine Sulfate 8 mg 11/11/24 01:56 11/11/24 19:53 Morphine 4 Mg/Ml Sdv 1 Ml IVP 8 mg Q4H PRN Administration SEVERE PAIN Nicotine 1 patch 11/10/24 21:52 11/12/24 08:36 Nicotine 14 Mg Patch TRANSDERMA 1 patch DAILY PHONG Administration Ondansetron HCl 4 mg 11/10/24 21:24 11/12/24 07:09 Ondansetron 2 Mg/Ml Sdv 2 Ml IVP 4 mg Q8H PRN Administration vomiting, or N/V if npo Oxycodone HCl 10 mg 11/10/24 21:24 11/11/24 14:15 Oxycodone 5 Mg Ir Tab/Cap PO 10 mg Q6H PRN Administration SEVERE PAIN Pantoprazole Sodium 40 mg 11/11/24 06:00 11/12/24 06:[address] 40 Mg Tablet PO 40 mg QAM PHONG Administration Pregabalin 50 mg 11/11/24 01:55 11/12/24 08:36 Pregabalin 50 Mg Capsule PO 50 mg BID PHONG Administration Ropinirole HCl 3 mg 11/10/24 21:00 11/11/24 20:05 Ropinirole 1 Mg Tablet PO 3 mg BEDTIME [facility]ONG Administration Sertraline HCl 100 mg 11/11/24 06:00 11/12/24 06:05 Sertraline 100 Mg Tablet PO 100 mg QAM PHONG Administration Tamsulosin HCl 0.4 mg 11/10/24 21:00 11/11/24 20:06 Tamsulosin 0.4 Mg Capsule PO 0.4 mg BEDTIME PHONG Administration [facility] Anesthesia Medical History (Updated 11/11/24 @ 08:22 by Cheng Mullen MD) PVD (peripheral vascular disease) Tobacco abuse COPD (chronic obstructive pulmonary disease) Bronchitis Plaque psoriasis Immunization counseling High risk medication use Seropositive rheumatoid arthritis of multiple sites Closed fracture of right distal fibula Fall at home Closed fracture of right distal tibia Closed right ankle fracture Fracture of distal end of tibia with fibula Acute gout of right ankle Psoriasis Cigarette smoker motivated to quit Thrombocytopenia Rheumatoid arthritis Transaminitis Immunocompromised Chronic anticoagulation Portal vein thrombosis COVID-19 Syncope Seizures Onychodystrophy Rheumatoid arthritis Closed fracture of right distal fibula Emphysema/COPD Avulsion fracture of left ankle Essential hypertension Claudication Spondylosis of lumbar region without myelopathy or radiculopathy Long-term current use of opiate analgesic Pain, joint, multiple sites Osteoporosis Fibromyalgia Diabetes DDD (degenerative disc disease), cervical Cervical spondylosis Tobacco use disorder Surgical History (Updated 11/10/24 @ 20:40 by Jhonny Ramos MD) Hx of right BKA S/P ANN-BSO S/P foot surgery Hx of section (~1989) Hx laparoscopic cholecystectomy H/O dilation and curettage Hx of hysterectomy Family History Mother Stroke Cancer SKIN CANCER Sister Stroke Other Diabetes Myocardial infarct Denies family history of Anesthesia complication Bleeding disorder Social History (Updated 11/10/24 @ 20:40 by Jhonny Ramos MD) Smoking and tobacco/nicotine status: current every day tobacco/nicotine user cigarettes Years cigarettes smoked: 40 [ Other cigarette details: 10 cigarettes/day currently] Quit status (tobacco/nicotine): considering quitting Second hand smoke exposure: Yes Alcohol intake: former Substance/Drug Use: never Additional social history: Patient wants full code as discussed today 11/10/2024 but no prolonged CPR or life support Caregiver/support person: Yes Lives independently: Yes Household members: spouse Marital status: Current occupational status: disabled Pets and animals: Yes Do you think of yourself as: Straight/Heterosexual Current gender identity: Female Data Anesthesia 11/12/24 04:46 11/12/24 04:46 Short CBC 11/10/24 11/12/24 Range/Units 18:47 04:46 WBC 16.07 H 7.84 (3.29-11.43) 10^3/uL Hgb 12.90 11.90 (11.27-16.99) g/dL Hct 39.2 38.5 (36-47) % MCV 91.2 94.6 (85-98) fl Plt Count 194 151 L (157-399) 10^3/cmm Neut % (Auto) 81.7 81.6 % Neut # (Auto) 13.12 H 6.39 (1.8-7.7) 10^3/uL BMP 11/10/24 11/12/24 18:47 04:46 Sodium 133 L 135 L Potassium 4.0 4.5 Chloride 99 103 Carbon Dioxide 21 L 22 BUN 13 9 Creatinine 0.5 0.7 Glucose 103 67 Calcium 8.8 8.1 L Liver Function 11/10/24 Range/Units 18:47 Total Bilirubin 0.7 (0.15-1.2) mg/dL AST 160 H (0-32) U/L ALT 48 H (0-33) U/L Alkaline Phosphatase 285 H (35-105) U/L Albumin 3.1 L (3.5-5.2) g/dL Urine 11/10/24 Range/Units 20:24 Urine Color Yellow (Yellow) Urine Appearance Clear (CLEAR) Urine pH 7.5 (5-7) Ur Specific [place] 1.012 (1.005-1.030) Urine Protein 1+ A (Negative) Urine Glucose (UA) 1+ H (Normal) Urine Ketones Negative (Negative) Urine Nitrate Negative (Negative) Urine Bilirubin Negative (Negative) Ur Leukocyte Esterase Negative (Negative) Urine RBC 0-2 (0-2) /hpf Urine WBC 0-5 (0-5) /hpf Cardiac Studies: Echocardiogram 02/24/22 Echocardiogram Limited Views 10/21/20 Echocardiogram Ultrasound 08/14/20 Sestamibi Stress Test (Cardiology) 01/30/24 Holter Monitor 03/31/20
[2024-11-12] MEDS: ipratropium 0.5 mg/2.5 mL Neb (14:05)
[2024-11-12] MEDS: sodium chloride 0.9% 1,000 ML 30 ML IV (14:06)
--- NOTE | 2024-11-12 14:20 | PC.NURSE ---
breathing treatment done. o2 sats now 93 on 3l nc
[2024-11-12] MEDS: ceFAZolin 2,000 mg SDV 2000 MG IVP ×2 (14:25→22:45)
[2024-11-12] MEDS: tranexamic acid 1,000 mg/10mL SDV 1000 MG IV (14:35)
--- NOTE | 2024-11-12 14:50 | P.PN_ITS ---
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 She did experience some nausea and also had an episode of vomit. He was given orange juice to which the symptoms resolved. I again asked patient how much insulin she takes at home and she told me 50 units of Lantus like she did yesterday. Hemoglobin A1c is 8.1. We reduced her Lantus to 25 units daily. She states she is not hungry at this time and did not want to eat anything. There are plans for hip replacement surgery today around 2 PM. Patient is on 3 L nasal cannula. She says her coughing has slightly improved however SOB is same as her baseline, not better, nor worse. She was started on ceftriaxone yesterday. Vitals/I&O/Wt Last Vital Signs Temp 99.1 F 11/12/24 13:40 Pulse 106 H 11/12/24 13:40 Resp 16 11/12/24 13:40 BP 132/75 11/12/24 13:40 Pulse Ox 88 L 11/12/24 13:40 O2 Del Method Nasal Cannula 11/12/24 13:40 O2 Flow Rate 3 11/12/24 12:00 FiO2 4 11/12/24 13:40 11/11/24 11/12/24 11/12/24 22:59 06:59 14:59 Intake Total 480 / 1918.75 1000 / 2918.75 1000 / 1000 Output Total 550 / 550 400 / 950 Balance -70 / 1368.75 600 / 1968.75 1000 / 1000 Weight last 48 hrs Weight 97.069 kg Weight 97.239 kg Weight 95.3 kg Weight 93.667 kg Weight 91.626 kg Physical Exam 2 Narrative: General Well-developed well-nourished obese female in no acute cardiopulmonary stress. on room air however i put her nasal cannula back on her as it is sitting in her lap. CV regular rate and rhythm Lungs clear to auscultation bilaterally no rales or wheezes or crackles Abdomen positive bowel sounds soft obese nontender Skin warm and dry Mood and affect normal Urinary Catheter Management: Dent: Cath Placed During This Visit: yes Reason for Continuing Indwelling Catheter: Required Immobilization for Trauma or Surgery or Anesthesia Urinary Catheter Date of Insertion: 11/10/24 Urinary Catheter Time of Insertion: 20:31 Data 11/12/24 04:46 11/12/24 04:46 A&P Assessment and plan (1) Fracture of femoral neck, right, closed: Patient is admitted to the hospital. She is on Eliquis long-term but that will be held with Lovenox given for DVT prophylaxis in the perioperative period. I think her Eliquis is for history of portal vein thrombosis (2) Bronchitis: Will treat with doxycycline 100 mg twice a day and guaifenesin (3) Diabetes: Diabetic 1500-calorie ADA weight loss diet and start sliding scale insulin. Continue home Lantus 50 units daily. She states she takes sliding scale insulin based on 3 units for 15 g carb at home. She may be a good candidate for GLP-1 weight loss injection but she has had some elevated LFTs and I am not sure if that is from her rheumatoid meds or other (4) COPD (chronic obstructive pulmonary disease): Stable see above treatment for bronchitis (5) Tobacco abuse: Patient counseled regarding need to stop smoking due to vascular disease and diabetes and limb loss. She is agreeable start nicotine patch 14 mg daily (6) PVD (peripheral vascular disease): As above continue aspirin 81 mg daily Plan 11/11/2024 Hold Eliquis for 48 hours. Plan for hip replacement tomorrow evening. Orthopedic surgery consulted. Appreciate recommendations Infiltrate right upper lung. Possible pneumonia?. Patient has been having coughing with sputum production. Does have a history of COPD. Continue doxycycline and ceftriaxone. States has been having some hypoglycemic episodes. Is a type I diabetic. She is on Lantus 50 units daily with sliding scale lispro with insulin to carb ratio 1:3. Patient will be n.p.o. tonight. Will dose reduce Lantus to 25 units at bedtime for today. Continue low-dose sliding scale insulin. Continue normal saline 75 cc/h. New oxygen requirement of 1 to 2 L nasal cannula. Not on any oxygen at home. WBC 16,000 most likely reactive secondary to recent hip fracture. Check EKG 11/12/2024 Continue to treat for pneumonia with doxycycline and ceftriaxone. Lungs have been mainly clear to auscultation. Her shortness of breath is at her usual baseline as per patient. She is requiring 3 L nasal cannula and on room air is 88%. I may consider Solu-Medrol 40 daily to treat for potential COPD flare however does not have much sputum production either. She states that is better. Hemoglobin A1c 8.1. I have cut down Lantus to 25 units daily. Sliding scale low-dose intensity is on board however we have not had to give her any extra insulin. WBC count improving. Most likely reactive to hip fracture. - hold further lantus. plan for surgical hip replacement today will order labs post-op and for AM. duoneb q6h prn PDMP PDMP Reviewed: Not Reviewed Attestations 2 Medical Necessity Statement*: Patient will be in the hospital for surgery for her right hip and expected to be hospitalized 3 to 4 days Diagnoses Closed fracture of neck of right femur, initial encounter S72.001A Encounter type: initial encounter Bronchitis J40 Type 2 diabetes mellitus with diabetic neuropathic arthropathy, with long-term current use of insulin E11.610; Z79.4 Diabetes mellitus complication detail: with neuropathic arthropathy Diabetes mellitus complication status: with diabetic arthropathy Diabetes mellitus detention insulin use: with 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
--- NOTE | 2024-11-12 15:54 | XR_ITS ---
WS: [id number] XR hip RT 1V wo/w pel [id number] REASON FOR EXAM: Endoprosthetic replacement right hip FINDINGS: Total right hip arthroplasty. Components of the arthroplasty are intact and in proper position and alignment. No focal bone abnormality. XR/XR hip RT 1V wo/w pel [id number] IMPRESSION: Total right hip arthroplasty without abnormality.
--- NOTE | 2024-11-12 16:14 | PC.NURSE ---
Dr Rizzo at pts side and aware of sats - pt remains on simple mask at 8L
--- NOTE | 2024-11-12 16:33 | PC.NURSE ---
This nurse took report from RUTHANN Cohen in PACU at 1632.
--- NOTE | 2024-11-12 16:50 | ANE.PACU2 ---
Inpatient post-anesthesia follow up: Airway intact: Yes Vital signs: Temperature 9.5 F Pulse Rate [Curren t] 101 Pulse Rate 92 Respiratory Rate [ Current] 20 Respiratory Rate 28 Blood Pressure 119/63 Pulse Oximetry [Cu rrent] 94 Pulse Oximetry 94 Oxygen Delivery Me thod High Flow Nasal Ca nnula Oxygen Flow Rate [ Current] 45 Oxygen Flow Rate 45 Fraction of Inspir ed Oxygen [ 50 Current] Fraction of Inspir ed Oxygen 50 Hydration adequate: Yes Nausea and vomiting: No Pain level: 1 Mental status: Baseline
--- NOTE | 2024-11-12 16:51 | PC.NURSE ---
1645 - accepted into room 254-2 with Jorge, OIL WELL ENGINEER - BP 92/57 - 02 93% on 6LNC Temp 98.4
--- NOTE | 2024-11-12 17:03 | PC.NURSE ---
Upon taking report from PACU, they informed me that pt was satting at 88% when she got to them. This nurse asked if pt was on her O2 as she was supposed to be on 3L and had been satting anywhere between 90% to 92% on 3L NC up here. Nurse was unsure as she was not the nurse taking care of her prior to surgery. Pt arrived back up to floor satting 93% on 6L NC. Pt reminded by this nurse to leave O2 on and take deep breaths in through her nose, out through her mouth.
[2024-11-12] MEDS: sennosides-docusate Tablet 2 TAB PO (17:11)
[2024-11-12] MEDS: mupirocin oint 22 gm 1 APPLIC NASAL (17:11)
[2024-11-12] MEDS: calcium carbonate 500 mg Chew Tablet 1000 MG PO (17:12)
[2024-11-12] MEDS: chlorhexidine gluconate 0.12% Btl 473 mL 30 ML MUCOUS MEM ×2 (17:12→20:38)
[2024-11-12] MEDS: iron polysaccharide complex 150 mg Capsule PO (17:12)
[2024-11-12] MEDS: sodium chloride 0.9% 1,000 ML 75 ML IV (17:13)
[2024-11-12 17:16] LABS: Glucose Point of Care 253 mg/dL (70-110)
[2024-11-12] MEDS: insulin lispro 100 unit/1 mL SUBCUT ×2 (17:21→21:17)
--- NOTE | 2024-11-12 17:41 | P.OP_ITS ---
Operative Report Date of procedure: November 12, 2024 Surgeon: Cheng Mullen MD Procedure: Preoperative diagnosis: Right femoral neck fracture, below-knee amputation present lower right leg Postop diagnosis: Same Procedure: Endoprosthetic replacement of right hip fracture Surgeon: Cheng Mullen MD Anesthesia: General EBL: 750 cc Complications: None Indications: Erin is a 54-year-old white female who already has a below-knee amputation of the right leg. On 11/10/2024 she reports having 2 mechanical falls injuring her buttocks and then injuring her hip. She is unable to bear weight. She is seen at [facility] ED and x-rays demonstrated a femoral neck fracture of the right hip. Patient was subsequently mated to the hospitalist service and orthopedic consultation was obtained. Patient is an ambulator with her prosthesis on. Min after evaluation of the patient as well as the x-rays it is felt the patient most benefit from endoprosthetic replacement of her right hip fracture. All risk benefits treatment alternatives were discussed with her and she is agreeable to this at this time. Procedure: After obtaining written consent patient was taken to the operating room and while still in her hospital bed had general anesthetic administered. Once good anesthesia was achieved patient placed over the operative table and then positioned in lateral decubitus position with right hip up. She is held in place with a pegboard. Right leg and hip were prepped and draped usual fashion. After surgical timeout the hip was flexed and a degrees longitudinal straight lateral incision was made over the proximal portion of the greater trochanter. Sharp dissection taken on down to subcutaneous tissues electrocautery used for hemostasis. Dissection was taken down until the greater trochanter could be visualized and incision was extended both proximally distally as needed for better exposure. Electrocautery was then used to dissect down along the posterior aspect the greater trochanter. Leg was internally rotated to allow for dissection behind the greater trochanter posteriorly raising all soft tissues off the bone including capsule of the femoral neck. Femoral head was exposed to a T-type incision with electrocautery exposing the femoral head. Leg was internally rotated 90 degrees proximal femur was templated and neck cut was made with a sagittal saw. Bone was removed with bone rongeur's. Subsequently femoral head was removed using a bone scoop. This is removed and measured be a 45 mm femoral head. Trial femoral head was placed within the acetabulum found to have good fit and fill. With the leg still internally rotated a box at osteotome was made and entry point the proximal femur. Hand reaming and then broaching up to a size 4 broach was done by 1 mm increments. Size 4 broach was found to have good stability and good fixation. Subsequently there is washed sterile irrigation and cleared and dried. A permanent size 4 [place] femoral component was placed and impacted. Trial head and neck being standard neck with a size 45 head was placed on this femoral component hip was reduced and found to be slightly longer than the opposite leg. Therefore -4 neck was selected. Tr ial components removed permanent size 45 head with a -4 neck was placed on the Parmar taper impacted on femoral component. Hip was reduced but the range was found to be stable with leg lengths nearly equal. There is again was washed coachman sterile irrigation. Leg was put up on the knee bump to abduct the legs. Capsule of the hip was then repaired with #1 Vicryl [id number] sutures. Deep fascia was repaired with 0 Vicryl [id number] sutures. Subcutaneous tissue reapproximated with 0 Vicryl and 3-0 Vicryl interrupted sutures. Skin was closed with skin martinez. Wounds are cleaned and dried and dressed with occlusive dressing. Patient was placed in abduction pillow awakened and placed back on her hospital bed. She was taken to recovery room in stable condition.
[2024-11-12] MEDS: ropinirole 1 mg Tablet 3 MG PO (20:39)
[2024-11-12] MEDS: MELATONIN 3 MG TABLET PO (20:39)
[2024-11-12] MEDS: tamsulosin 0.4 mg Capsule PO (20:39)
[2024-11-12] MEDS: oxyCODONE 5 mg IR Tab/Cap 10 MG PO (20:39)
[2024-11-12 20:43] LABS: Glucose Point of Care 309 mg/dL (70-110)
[2024-11-13] VITALS (75 sets, daily range): BP systolic 109–146; BP diastolic 52–80; PULSE 65–108; RESP 14–28; TEMP -12.5–37.1; O2SAT 85–100
--- NOTE | 2024-11-13 01:51 | PC.NURSE ---
Addendum entered by Abbie George LPN 11/13/24 02:09: along with RT order received to stop fluids Original Note: o2 delivery system changed to oximask due to pt mouth breathing and 02 sat at 87% with 02 at 6l. pt restless and removes mask at times, call placed to Dr. Mehta and order received to jazmin RT in for Eval and treat
[2024-11-13 02:07] LABS: ABG PCO2 33.5 mmHg (35-45); ABG PH Result 7.43 (7.35-7.45); Alveolar-Arterial Oxygen Gradi 29.2 mmHg (5-10); Arterial Blood Gas Hematocrit 23.8 % (37-47); Base Excess ABG -1.7 mmol/L (-2.0-2.0); Blood Gas Allen Test Pos; Blood Gas Operator Identificat gerca; Blood Gas Sample Site Radial, right; Blood Gas Sample Type Arterial; Carboxyhemoglobin 1.6 %THgb (0.4-20.1); HCO3 ABG 22.3 mmol/L (22-26); HGB O2 Sat 87.6 % (95-100); Ionized Calcium Level - ABG 1.2 mmol/L (1.1-1.4); Methemoglobin 1.3 % (0.4-1.5); Oxygen Device OXY MASK; Oxygen Saturation ABG 90.2; PO2 ABG 53.5 mmHg (80.0-100.0); PO2 FiO2 Ratio Arterial Blood 118; Total Hemoglobin 7.8 g/dL (12-16)
--- NOTE | 2024-11-13 02:30 | XR_ITS ---
WS: [id number] XR chest 1V portable [id number] REASON FOR EXAM: Hypoxia FINDINGS: There is mild tortuosity of the thoracic aorta. The heart size is within normal limits. There is central pulmonary venous congestion. Compared to the examination of 11/10/2024 there are diffuse reticular interstitial lung opacities and peribronchial cuffing and REY B lines. XR/XR chest 1V portable [id number] IMPRESSION: Interval development of pulmonary edema most likely congestive heart failure.
[2024-11-13 05:32] LABS: Basophils % 0.2 %; Lymphocytes # 0.5 10^3/uL (0.8-4.8); Lymphocytes % 3.6 %; Mean Corpuscular HGB Conc 31.5 g/dL (30-55); Mean Corpuscular Hemoglobin 29.4 pg (27-33); Mean Corpuscular Volume 93.4 fl (85-98); Mean Platelet Volume 11.2 fL (7.4-10.4); Monocytes # 0.5 10^3/uL (0.2-0.9); Neutrophils # 12.48 10^3/uL (1.8-7.7); Neutrophils % 91.5 %; Nucleated Red Blood Cells % 0 %; Platelet Count 150 10^3/cmm (157-399); Red Blood Count 2.89 10^6/uL (3.85-5.65); Red Cell Distribution Width 13.4 % (12.1-15.1); White Blood Count 13.63 10^3/uL (3.29-11.43)
[2024-11-13] MEDS: sertraline 100 mg Tablet PO (05:42)
[2024-11-13] MEDS: oxyCODONE 5 mg IR Tab/Cap 10 MG PO ×3 (05:42→21:16)
[2024-11-13] MEDS: atorvastatin 40 mg Tablet 80 MG PO (05:42)
[2024-11-13] MEDS: pantoprazole DR 40 mg Tablet PO (05:42)
[2024-11-13] MEDS: ceFAZolin 2,000 mg SDV 2000 MG IVP (05:42)
[2024-11-13 05:47] LABS: D Dimer 2.45 ug/mLFEU (0-0.59)
[2024-11-13 05:48] LABS: Anion Gap 13.5 (5-19); Blood Urea Nitrogen 16 mg/dL (6-20); Calcium 7.9 mg/dL (8.5-10.5); Carbon Dioxide 21 mmol/L (22-29); Chloride 101 mmol/L (98-107); Creatinine Clr Calc Pharmacy 121.5982; Glomerular Filtration Rate 103.4 mL/min (90-130); Glucose 235 mg/dL (65-115); Magnesium 1.8 mg/dL (1.7-2.3); Osmolality Calculated 281 mOsm/kg (285-295); Potassium 4.5 mmol/L (3.5-5.1); Sodium 131 mmol/L (136-145)
[2024-11-13 06:36] LABS: Glucose Point of Care 278 mg/dL (70-110)
--- NOTE | 2024-11-13 06:54 | CTR_ITS ---
PROCEDURE INFORMATION: Exam: CTA Chest With Contrast Exam date and time: 11/13/2024 7:08 AM Age: 54 years old Clinical indication: Shortness of breath; Additional info: Worsening hypoxia TECHNIQUE: Imaging protocol: Computed tomographic angiography of the chest with contrast. Exam focused on the arteries. 3D rendering (Not supervised by radiologist): MIP and/or 3D reconstructed images were created by the technologist. Radiation optimization: All CT scans at this facility use at least one of these dose optimization techniques: automated exposure control; mA and/or kV adjustment per patient size (includes targeted exams where dose is matched to clinical indication); or iterative reconstruction. Contrast material: OMNI 350; Contrast volume: 100 ml; Contrast route: INTRAVENOUS (IV); COMPARISON: CT angio chest PE protcl [id number] 01/17/2023 6:18 PM RADIATION DOSE METRICS: Total DLP (mGy-cm): 480.59 FINDINGS: Pulmonary arteries: No visualized pulmonary embolus. Aorta: Calcified thoracic aorta. Lungs: Persistent subpleural atelectasis of the lower lungs posteriorly greater on the left may be mildly increased. There is interval development of a spiculated mass at the right upper lobe overall measuring 3.8 x 2.2 x 1.0 cm resides adjacent to the fissure. Bilateral peripheral bronchiectasis. Granulomatous calcification right upper lobe posteriorly. Pleural spaces: Extensive areas of pleural-parenchymal scarring and abnormal interstitial thickening throughout both lungs. Prominent areas of bronchiectasis bilaterally suggest interval increased. Heart: Unremarkable. No cardiomegaly. No pericardial effusion. Coronary arteries: Calcification distribution of coronary arteries. Lymph nodes: Similar diffuse mediastinal and hilar lymphadenopathy. Bones/joints: Small focus of sclerosis within T8. Soft tissues: Unremarkable. Other findings: Limitations by prominent motion degradation. CT/CT angio chest PE protcl [id number] IMPRESSION: 1. No visualized pulmonary embolus. 2. Subpleural atelectasis of the posterior lungs greater on the left intervally increased. 3. Interval development of a spiculated mass right upper lobe abutting the fissure.Consider non-emergent PET/CT or tissue sampling.(Reference: Kalpesh) 4. Persistent mediastinal and bilateral hilar adenopathy is similar. 5. Extensive diffuse abnormal interstitial pulmonary changes with partial ground-glass opacities and prominent bronchiectasis show interval progression of extent of involvement. Finding should be correlated to any prior documentation of etiology of underlying chronic changes. If unknown, high-resolution chest CT may be of benefit in further assessment. 6. Small focus of sclerosis within T8. REFERENCES: Kalpesh Swanson, et al. Guidelines for Management of Incidental Pulmonary Nodules Detected on CT Images: From the Fleischner Society 2017. Radiology. 2017;284(1):228-243.
--- NOTE | 2024-11-13 07:01 | USCV_ITS ---
Erin Kelley Age: 54 Gender: F : 1970 Exam Date: 11/13/2024 08:44 Ordering Phys: Pamela Monge MD Technologist: Exam Location: [facility] [place] Indication: post rt hip surg rt leg amputee below the knee HISTORY: rt leg amputee below rt knee PROCEDURES: The venous duplex Doppler examination of both lower extremities was performed in the standard fashion. The following venous structures were evaluated: common femoral vein, profunda vein, proximal portion of the greater saphenous vein, superficial femoral vein, and the popliteal vein. FINDINGS: Normal 2-D Doppler and augmentation and compressibility throughout the lower extremity venous structures. Additional imaging through the proximal calf veins also reveals no thrombus. Limited evaluation of the greater saphenous vein is patent with no thrombus. CONCLUSIONS No evidence of right lower extremity DVT. No evidence of left lower extremity DVT. Jhonny Arroyo MD (Electronically Signed) Final Date: 13 Nov 2024 11:52 S
--- NOTE | 2024-11-13 07:10 | USCV_ITS ---
Erin Kelley Age: 54 Gender: F : 1970 Exam Date: 11/13/2024 08:26 Ordering Phys: Pamela Monge MD Technologist: Exam Location: [facility] [place] Indication: cp sob BP: 110 / 60 HR: 102 Rhythm: Sinus Technical Quality: Adequate MEASUREMENTS (Male / Female) Normal Values 2D ECHO LV Diastolic Diameter PLAX 3.9 cm 4.2 - 5.9 / 3.9 - 5.3 cm IVS Diastolic Thickness 1.2 cm 0.6 - 1.0 / 0.6 - 0.9 cm IVS Systolic Thickness 1.5 cm LVPW Diastolic Thickness 1.1 cm 0.6 - 1.0 / 0.6 - 0.9 cm LVPW Systolic Thickness 1.3 cm LVOT Diameter 2.0 cm LV Ejection Fraction 2D Teich 62.5 % LV Ejection Fraction MOD 4C 76.9 % LV Ejection Fraction MOD 2C 69.3 % LV Ejection Fraction 2C AL 70.6 % LA Diameter 2.7 cm RA Systolic Volume 4C AL 40.0 ml RA Systolic Volume 4C MOD 38.6 ml LA Sys Volume AL 49.1 cm cubed LA Sys Volume Index AL 21.4 cm cubed/m squared Aorta at Sinotubular Diameter 2.5 cm M-MODE LA Ao Ratio MM 1.6 AV Cusp Separation MM 2.0 cm DOPPLER MV Peak Velocity 122.0 cm/s MV Area PHT 2.9 cm squared Mitral E to A Ratio 0.7 TR Peak Velocity 278.0 cm/s TR Peak Gradient 30.9 mmHg TV Peak E Velocity 86.0 cm/s PV Peak Velocity 124.0 cm/s FINDINGS Left Ventricle Left ventricle is normal in size. LV systolic function is normal with EF of 60-65%. No regional wall motion abnormalities are seen. Grade 1 diastolic dysfunction Right Ventricle Normal in size and function Right Atrium Normal in size Left Atrium Normal in size Mitral Valve Grossly normal mitral valve. Mild mitral regurgitation. Aortic Valve Grossly normal aortic valve. No significant stenosis or regurgitation. Tricuspid Valve Mild tricuspid regurgitation. Pulmonary artery systolic pressure is normal. Pulmonic Valve Not well visualized Pericardium Normal Aorta Normal in size IVC Appears to be normal CONCLUSIONS LV systolic function is normal with EF of 60-65% Grade 1 diastolic dysfunction Mild mitral regurgitation Mild tricuspid regurgitation Compared to prior echocardiogram from 2021, no significant changes are seen Terrell Macias MD (Electronically Signed) Final Date: 15 Nov 2024 12:29 S
[2024-11-13] MEDS: iohexol 350 mg/mL 500 mL Btl (per mL) IV (07:12)
[2024-11-13] MEDS: insulin lispro 100 unit/1 mL SUBCUT ×4 (08:00→21:18)
[2024-11-13] MEDS: enoxaparin 40 mg/0.4 mL Syringe SUBCUT (08:00)
[2024-11-13] MEDS: pregabalin 50 mg Capsule PO ×2 (08:00→17:44)
[2024-11-13] MEDS: sennosides-docusate Tablet 2 TAB PO ×2 (08:00→17:42)
[2024-11-13] MEDS: iron polysaccharide complex 150 mg Capsule PO ×2 (08:00→17:44)
[2024-11-13] MEDS: docusate sodium 100 mg Capsule PO ×2 (08:00→17:44)
[2024-11-13] MEDS: nicotine 14 mg Patch 1 PATCH TRANSDERMA (08:01)
[2024-11-13] MEDS: multivitamin therapeutic Tablet 1 TAB PO (08:01)
[2024-11-13] MEDS: calcium carbonate 500 mg Chew Tablet 1000 MG PO ×2 (08:01→17:42)
[2024-11-13] MEDS: cholecalciferol (vitamin D3) 1,000 unit Tablet 1000 UNIT PO (08:01)
[2024-11-13] MEDS: aspirin 325 mg EC Tablet PO (08:01)
[2024-11-13] MEDS: doxycycline 100 mg Tablet PO ×2 (08:01→17:44)
[2024-11-13] MEDS: piperacillin-tazobactam 3.375 GM in sodium chloride 0.9% (plus) 50 ML IV ×3 (08:01→23:01)
[2024-11-13] MEDS: cyclobenzaprine 10 mg Tablet PO (08:01)
[2024-11-13] MEDS: chlorhexidine gluconate 0.12% Btl 473 mL 30 ML MUCOUS MEM ×4 (08:02→21:41)
[2024-11-13] MEDS: mupirocin oint 22 gm 1 APPLIC NASAL ×2 (08:02→18:08)
[2024-11-13] MEDS: FUROsemide 10 mg/mL SDV 4mL 40 MG IVP ×2 (08:04→17:43)
[2024-11-13] MEDS: methylPREDNISolone sod succ 40 mg/mL INJ IVP ×2 (08:04→17:43)
[2024-11-13 08:05] LABS: NT Pro B Type Natriuretic Pept 888 pg/mL (0-125)
--- NOTE | 2024-11-13 08:11 | PHA.VACGOAL ---
Vancomycin Goal - Goal Vancomycin Goal:: 15-20 mg/L Vancomycin Indication:: Pneumonia - Therapy Day of therpy:: Day []of [] . Actual body weight (kg): 217 lb - Data Labs: WBC 13.63 10^3/uL (3.29-11.43) H 11/13/24 05:07 RBC 2.89 10^6/uL (3.85-5.65) L 11/13/24 05:07 Hgb 8.50 g/dL (11.27-16.99) L 11/13/24 05:07 Hct 27.0 % (36-47) L 11/13/24 05:07 MCV 93.4 fl (85-98) 11/13/24 05:07 MCH 29.4 pg (27-33) 11/13/24 05:07 MCHC 31.5 g/dL (30-55) 11/13/24 05:07 RDW 13.4 % (12.1-15.1) 11/13/24 05:07 Sodium 131 mmol/L (136-145) L 11/13/24 05:07 Potassium 4.5 mmol/L (3.5-5.1) 11/13/24 05:07 Chloride 101 mmol/L (98-107) 11/13/24 05:07 Carbon Dioxide 21 mmol/L (22-29) L 11/13/24 05:07 Anion Gap 13.5 (5-19) 11/13/24 05:07 BUN 16 mg/dL (6-20) 11/13/24 05:07 Creatinine 0.6 mg/dL (0.5-0.9) 11/13/24 05:07 GFR Calculation 103.4 mL/min (90-130) 11/13/24 05:07 Treatment plan:: new consult Regimen:: PT HAS HISTORY OF NOT METABOLIZING VANCOMYCIN WELL STARTING WITH 2000MG Q12H (LOWER THAN PROTOCOL) AND DRAW TROUGH BEFORE THIRD DOSE
[2024-11-13] MEDS: vancomycin 2,000 MG/400 ML PIGGYBACK 200 MG IV (09:14)
[2024-11-13] MEDS: ipratropium-albuterol 3 mL Neb INHALATION ×4 (09:34→19:43)
[2024-11-13 10:42] LABS: MRSA PCR OZH (swab) NOT DETECTED (Not Detecte)
[2024-11-13 11:50] LABS: Glucose Point of Care 331 mg/dL (70-110)
--- NOTE | 2024-11-13 12:29 | PM.PN ---
Subjective Subjective: seen this morning pt had worsening hypoxia overnight surgery was uneventful hb down to 8.50, 11.9 yesterday cta chest ruled out pe xray shows pulm edema pt on heated high flow qualified for 3L nc at rest, 4L on exertion Vitals/I&O/Wt Last Vital Signs Temp 98.8 F 11/13/24 11:51 Pulse 98 11/13/24 12:00 Resp 20 H 11/13/24 12:14 BP 109/69 11/13/24 11:51 Pulse Ox 90 11/13/24 12:14 O2 Del Method High Flow Nasal Cannula 11/13/24 11:51 O2 Flow Rate 45 11/13/24 11:48 FiO2 50 11/13/24 11:48 11/12/24 11/13/24 11/13/24 22:59 06:59 14:59 Intake Total 50 / 1050 1505 / 2555 450 / 450 Output Total 1250 / 1250 600 / 1850 1000 / 1000 Balance -1200 / -200 905 / 705 -550 / -550 Weight last 48 hrs Weight 98.43 kg Weight 97.069 kg Weight 97.239 kg Physical Exam Narrative: General Well-developed well-nourished obese female NAD, no conversational dysphnea, on HHF CV regular rate and rhythm Lungs clear to auscultation bilaterally no rales or wheezes or crackles Abdomen positive bowel sounds soft obese nontender Skin warm and dry Mood and affect normal Urinary Catheter Management: Dent: Cath Placed During This Visit: yes Reason for Continuing Indwelling Catheter: Required Immobilization for Trauma or Surgery or Anesthesia Urinary Catheter Date of Insertion: 11/10/24 Urinary Catheter Time of Insertion: 20:31 Data 11/13/24 05:07 11/13/24 05:07 A&P Assessment and plan (1) Fracture of femoral neck, right, closed: Patient is admitted to the hospital. She is on Eliquis long-term but that will be held with Lovenox given for DVT prophylaxis in the perioperative period. I think her Eliquis is for history of portal vein thrombosis (2) Bronchitis: Will treat with doxycycline 100 mg twice a day and guaifenesin (3) Diabetes: Diabetic 1500-calorie ADA weight loss diet and start sliding scale insulin. Continue home Lantus 50 units daily. She states she takes sliding scale insulin based on 3 units for 15 g carb at home. She may be a good candidate for GLP-1 weight loss injection but she has had some elevated LFTs and I am not sure if that is from her rheumatoid meds or other (4) COPD (chronic obstructive pulmonary disease): Stable see above treatment for bronchitis (5) Tobacco abuse: Patient counseled regarding need to stop smoking due to vascular disease and diabetes and limb loss. She is agreeable start nicotine patch 14 mg daily (6) PVD (peripheral vascular disease): As above continue aspirin 81 mg daily (7) COPD exacerbation: (8) Heart failure: (9) Pneumonia: (10) Hypoxia: Plan 11/11/2024 Hold Eliquis for 48 hours. Plan for hip replacement tomorrow evening. Orthopedic surgery consulted. Appreciate recommendations Infiltrate right upper lung. Possible pneumonia?. Patient has been having coughing with sputum production. Does have a history of COPD. Continue doxycycline and ceftriaxone. States has been having some hypoglycemic episodes. Is a type I diabetic. She is on Lantus 50 units daily with sliding scale lispro with insulin to carb ratio 1:3. Patient will be n.p.o. tonight. Will dose reduce Lantus to 25 units at bedtime for today. Continue low-dose sliding scale insulin. Continue normal saline 75 cc/h. New oxygen requirement of 1 to 2 L nasal cannula. Not on any oxygen at home. WBC 16,000 most likely reactive secondary to recent hip fracture. Check EKG 11/12/2024 Continue to treat for pneumonia with doxycycline and ceftriaxone. Lungs have been mainly clear to auscultation. Her shortness of breath is at her usual baseline as per patient. She is requiring 3 L nasal cannula and on room air is 88%. I may consider Solu-Medrol 40 daily to treat for potential COPD flare however does not have much sputum production either. She states that is better. Hemoglobin A1c 8.1. I have cut down Lantus to 25 units daily. Sliding scale low-dose intensity is on board however we have not had to give her any extra insulin. WBC count improving. Most likely reactive to hip fracture. - hold further lantus. plan for surgical hip replacement today will order labs post-op and for AM. duoneb q6h prn 11/13/2024 pt is immunocomprised escalate abx to zosyn give one dose vanco, will dc if mrsa nares neg. mrsa neg continue doxycycline 100 bid orally and complete 7 days total cta chest rules out PE continue lantus 15 units at bedtime add solumedrol 40 q8h order echo lasix 40 vi bid bnp 888 EF normal on stress test january 2025 transfer to [facility] incentive spirometer, flutter valve PDMP PDMP Reviewed: Not Reviewed Attestations Medical Necessity Statement*: worsening hypoxia requires further hospitalization due to worsening resp status Diagnoses Closed fracture of neck of right femur, initial encounter S72.001A Encounter type: initial encounter Bronchitis J40 Type 2 diabetes mellitus with diabetic neuropathic arthropathy, with long-term current use of insulin E11.610; Z79.4 Diabetes mellitus complication detail: with neuropathic arthropathy Diabetes mellitus complication status: with diabetic arthropathy Diabetes mellitus filler leaf cutter long insulin use: with filler leaf cutter long use Diabetes mellitus type: type 2 COPD (chronic obstructive pulmonary disease) J44.9 Tobacco abuse Z72.0 PVD (peripheral vascular disease) I73.9 COPD exacerbation J44.1 Heart failure I50.9 Pneumonia due to infectious organism, unspecified laterality, unspecified part of lung J18.9 Pneumonia type: due to unspecified organism Laterality: unspecified laterality Lung location: unspecified part of lung Hypoxia R09.02
--- NOTE | 2024-11-13 12:47 | PC.NURSE ---
This nurse called report to RUTHANN Davies in [facility] at [phone].
[2024-11-13] MEDS: HYDROcodone-acetaminophen 5-325 mg Tablet 1 TAB PO (14:38)
[2024-11-13 17:17] LABS: Glucose Point of Care 377 mg/dL (70-110)
[2024-11-13] MEDS: morphine 4 mg/mL SDV 1 mL IVP ×2 (17:58→23:01)
[2024-11-13 20:07] LABS: Glucose Point of Care 417 mg/dL (70-110)
[2024-11-13] MEDS: tamsulosin 0.4 mg Capsule PO (21:18)
[2024-11-13] MEDS: ropinirole 1 mg Tablet 3 MG PO (21:18)
[2024-11-13] MEDS: MELATONIN 3 MG TABLET PO (21:18)
[2024-11-13] MEDS: insulin glargine 100 units/1 mL 15 UNIT SUBCUT (23:00)
[2024-11-14] VITALS (33 sets, daily range): BP systolic 80–127; BP diastolic 53–84; PULSE 66–93; RESP 12–25; TEMP 36.1–36.7; O2SAT 89–100
[2024-11-14] MEDS: methylPREDNISolone sod succ 40 mg/mL INJ IVP ×3 (01:00→21:02)
[2024-11-14] MEDS: HYDROcodone-acetaminophen 5-325 mg Tablet 1 TAB PO ×3 (02:21→17:40)
[2024-11-14] MEDS: sertraline 100 mg Tablet PO (05:13)
[2024-11-14] MEDS: FUROsemide 10 mg/mL SDV 4mL 40 MG IVP (05:13)
[2024-11-14] MEDS: oxyCODONE 5 mg IR Tab/Cap 10 MG PO (05:13)
[2024-11-14] MEDS: atorvastatin 40 mg Tablet 80 MG PO (05:13)
[2024-11-14] MEDS: pantoprazole DR 40 mg Tablet PO (05:13)
[2024-11-14 06:24] LABS: Glucose Point of Care 471 mg/dL (70-110)
[2024-11-14 07:19] LABS: Basophils % 0.1 %; Hematocrit 26.9 % (36-47); Lymphocytes # 0.4 10^3/uL (0.8-4.8); Lymphocytes % 4.1 %; Mean Corpuscular HGB Conc 31.2 g/dL (30-55); Mean Corpuscular Hemoglobin 29.6 pg (27-33); Mean Corpuscular Volume 94.7 fl (85-98); Mean Platelet Volume 11.1 fL (7.4-10.4); Monocytes # 0.4 10^3/uL (0.2-0.9); Monocytes % 3.6 %; Neutrophils # 9.18 10^3/uL (1.8-7.7); Neutrophils % 91.2 %; Nucleated Red Blood Cells % 0 %; Platelet Count 165 10^3/cmm (157-399); Red Blood Count 2.84 10^6/uL (3.85-5.65); Red Cell Distribution Width 13.8 % (12.1-15.1); White Blood Count 10.06 10^3/uL (3.29-11.43)
[2024-11-14 07:31] LABS: Vancomycin Trough < 4.0 ug/mL (10-15)
[2024-11-14 07:32] LABS: Anion Gap 14.6 (5-19); Blood Urea Nitrogen 22 mg/dL (6-20); Carbon Dioxide 25 mmol/L (22-29); Chloride 96 mmol/L (98-107); Creatinine Clr Calc Pharmacy 102.6845; Glomerular Filtration Rate 86.6 mL/min (90-130); Magnesium 1.9 mg/dL (1.7-2.3); Osmolality Calculated 298 mOsm/kg (285-295); Potassium 4.6 mmol/L (3.5-5.1); Sodium 131 mmol/L (136-145)
[2024-11-14 07:34] LABS: Glucose 506 mg/dL (65-115)
[2024-11-14] MEDS: piperacillin-tazobactam 3.375 GM in sodium chloride 0.9% (plus) 50 ML IV ×2 (07:36→15:06)
[2024-11-14] MEDS: insulin lispro 100 unit/1 mL SUBCUT ×2 (07:37→09:08)
[2024-11-14] MEDS: iron polysaccharide complex 150 mg Capsule PO ×2 (07:37→17:35)
[2024-11-14 07:59] LABS: ABG PCO2 41.1 mmHg (35-45); ABG PH Result 7.41 (7.35-7.45); Alveolar-Arterial Oxygen Gradi 34.1 mmHg (5-10); Arterial Blood Gas Hematocrit 26.3 % (37-47); Base Excess ABG 1.5 mmol/L (-2.0-2.0); Blood Gas Allen Test Pos; Blood Gas Operator Identificat WALCI; Blood Gas Sample Site Radial, right; Blood Gas Sample Type Arterial; Carboxyhemoglobin 1.2 %THgb (0.4-20.1); HCO3 ABG 26.2 mmol/L (22-26); HGB O2 Sat 91.5 % (95-100); Ionized Calcium Level - ABG 1.2 mmol/L (1.1-1.4); Methemoglobin 0.3 % (0.4-1.5); Oxygen Device NC; Oxygen Saturation ABG 92.8; PO2 FiO2 Ratio Arterial Blood 120; Potassium Level - ABG 4.4 mmol/L (3.5-5.0); Total Hemoglobin 8.6 g/dL (12-16)
[2024-11-14] MEDS: ipratropium-albuterol 3 mL Neb INHALATION ×3 (08:12→15:24)
[2024-11-14] MEDS: cholecalciferol (vitamin D3) 1,000 unit Tablet 1000 UNIT PO (09:08)
[2024-11-14] MEDS: calcium carbonate 500 mg Chew Tablet 1000 MG PO ×2 (09:08→17:35)
[2024-11-14] MEDS: enoxaparin 40 mg/0.4 mL Syringe SUBCUT (09:08)
[2024-11-14] MEDS: insulin glargine 100 units/1 mL 15 UNIT SUBCUT ×2 (09:08→21:03)
[2024-11-14] MEDS: multivitamin therapeutic Tablet 1 TAB PO (09:09)
[2024-11-14] MEDS: aspirin 325 mg EC Tablet PO (09:09)
[2024-11-14] MEDS: doxycycline 100 mg Tablet PO (09:09)
[2024-11-14] MEDS: docusate sodium 100 mg Capsule PO ×2 (09:09→17:35)
[2024-11-14] MEDS: nicotine 14 mg Patch 1 PATCH TRANSDERMA (09:09)
[2024-11-14] MEDS: sennosides-docusate Tablet 2 TAB PO ×2 (09:09→17:35)
[2024-11-14] MEDS: pregabalin 50 mg Capsule PO ×2 (09:09→17:35)
[2024-11-14] MEDS: cyclobenzaprine 10 mg Tablet PO (09:15)
--- NOTE | 2024-11-14 11:19 | PC.NURSE ---
Informed Dr Monge of elevated POC blood sugar of 526. Will move to ICU for insulin drip. Patient is pending transfer to [facility].
--- NOTE | 2024-11-14 11:24 | PC.OT ---
HOLD OT TREATMENT PATIENT IS BEING TRANSFERRED TO ICU
[2024-11-14] MEDS: morphine 4 mg/mL SDV 1 mL IVP (11:29)
--- NOTE | 2024-11-14 11:45 | PC.NURSE ---
Patient being transferred to ICU 2. Informed patient of need for transfer. Patient verbalized complete understanding. Report called to RUTHANN PETERSEN. Patient taken by bed.
[2024-11-14 12:05] LABS: Glucose Point of Care 523 mg/dL (70-110)
[2024-11-14 12:23] LABS: Glucose Point of Care 565 mg/dL (70-110)
[2024-11-14] MEDS: INSULIN REGULAR IN 0.9 % NACL 100 UNIT/100 ML BAG 15 UNIT IV (12:31)
[2024-11-14] MEDS: vancomycin 1,500 MG/300 ML PIGGYBACK 200 MG IV (12:50)
[2024-11-14 13:35] LABS: Glucose Point of Care 477 mg/dL (70-110)
[2024-11-14 14:03] LABS: Anion Gap 17.4 (5-19); Blood Urea Nitrogen 25 mg/dL (6-20); Calcium 8.3 mg/dL (8.5-10.5); Carbon Dioxide 23 mmol/L (22-29); Chloride 95 mmol/L (98-107); Glomerular Filtration Rate 74.2 mL/min (90-130); Glucose 449 mg/dL (65-115); Osmolality Calculated 298 mOsm/kg (285-295); Potassium 3.4 mmol/L (3.5-5.1); Sodium 132 mmol/L (136-145)
[2024-11-14 14:20] LABS: Glucose Point of Care 437 mg/dL (70-110)
--- NOTE | 2024-11-14 14:30 | P.TS_ITS ---
Transfer Summary Providers Date of Admission: 11/10/24 19:34 Date of Discharge/Transfer: 11/14/24 Attending Provider at Admission: Jhonny Ramos MD Attending Provider at Transfer: Pamela Monge MD Primary Care Provider: Nel Peacock MD Transfer Plans: Anticipated date of transfer: 11/14/24 . Receiving Facility: [facility] . Receiving Provider: Dr. Venegas . Additional transfer facility information: Cardiac Stepdown bed . 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: with equipment operator intermodal yard use Diabetes mellitus type: type 2 Qualified Code(s): E11.610 - Type 2 diabetes mellitus with diabetic neuropathic arthropathy; 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 Ramos Erin Michelle Kelley is a 54 year old female with rheumatoid arthritis, diabetes, ongoing tobacco use. She had a mechanical trip and fall over her cane in the bedroom closet today and presented to the hospital with a right femoral neck fracture. 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 Patient is accompanied by her . She denies acute illness prior to this fall. Patient states her pain is 8-9/10 currently and dropped to 4/10 with the fentanyl but only lasted less than an hour of relief. She is on oxycodone 10 mg every 6 hours at home Review of old charts she had right ankle hardware and avascular necrosis plus Charcot foot and right BKA around June 2023 she had a nuclear medicine 01/30/2024 showing her heart was perfusing okay 01/24/2022 had shown slightly decreased tracer activity in the anterolateral and anterior region with reversibility possibly ischemia in distribution of the circumflex artery and left anterior descending artery. LVEF was 74% I am not completely clear why she is on apixaban but I think it is for history of portal vein thrombosis White count today 16 sodium 133 potassium 4 creatinine 0.5 AST 160 ALT 48. Patient denies fevers or chills she states her cough is her usual smoker's cough with clear to to yellow phlegm. She states is no different than usual. She denies dysuria or hematuria. Radiologist read as possibly right upper lung inflammation or infection but I do not see that on the x-ray. Hospital Course Hospital Course Patient was initially admitted for right femoral neck fracture and possible bronchitis with possible infiltrate in right upper lobe however admitting physician did not appreciate that on imaging. She was treated with doxycycline 100 mg twice a day and guaifenesin. Patient is a type I diabetic and takes Lantus 50 units daily and is taking insulin 1-3 carb ratio. She also has rheumatoid arthritis for which she is on tofacitinib and apremilast as an outpatient. Patient is on Eliquis which was held for 48 hours for right hip replacement surgery. Patient was only on 1 L of nasal cannula and her shortness of breath was at her usual baseline. She was not bringing up much phlegm which was intermittently yellow. Patient was treated with IV ceftriaxone and oral doxycycline for possible right upper lobe pneumonia. She had a low-grade fever up to 100.1. Patient did experience hypoglycemia with sugar down to 67 at which point she became nauseous and subsequently was given orange juice after which her symptoms resolved. She also had an episode of vomiting. Her Lantus was reduced to 25 units daily and subsequently stopped. Patient underwent hip surgery on 11/12 under general anesthesia. Postop she has had progressive hypoxia and now is on heated high flow 45 L 50% FiO2. She is on Solu-Medrol 40 every 8 hours, antibiotics were escalated to Vanco and IV Zosyn postop. BNP 888. Chest x-ray showed pulmonary vascular congestion. CTA chest was negative for PE however had the following results with worsening bronchiectasis interval worsening compared to prior study 2 years ago. 1. No visualized pulmonary embolus. 2. Subpleural atelectasis of the posterior lungs greater on the left intervally increased. 3. Interval development of a spiculated mass right upper lobe abutting the fissure.Consider non-emergent PET/CT or tissue sampling.(Reference: Kalpesh) 4. Persistent mediastinal and bilateral hilar adenopathy is similar. 5. Extensive diffuse abnormal interstitial pulmonary changes with partial ground-glass opacities and prominent bronchiectasis show interval progression of extent of involvement. Finding should be correlated to any prior documentation of etiology of underlying chronic changes. If unknown, high-resolution chest CT may be of benefit in further assessment. 6. Small focus of sclerosis within T8. Patient used to follow with pulmonology and does have a history of severe emphysema. Patient does have interval development of spiculated mass of right upper lobe abutting the fissure. X-ray showed possible infiltrate. This was likely the mass being seen. Patient will require bronchoscopy for tissue sampling. Patient has been given IV Lasix however has not improved from respiratory standpoint. Remains on heated high flow 45 L. There is evidence of atelectasis posterior lung rao. Incentive spirometer flutter valve has also been ordered. Going forward patient will need pulmonology consultation given her immunocompromise status and evidence of bronchiectasis. Patient is discharge planning has been taking place with case management. Patient is to be transferred to [facility] for rehab. I discussed patient's care with her today and recommended transfer to higher level of care secondary to increasing oxygen requirements and persistent hypoxia requiring pulmonology consultation. Discussed with patient's as well and both are agreeable to transfer to [facility]. Discussed with hospitalist service and patient has been accepted by Dr. Marroquin for transfer to stepdown bed. guidance services coordinator did discuss with pulmonology as well who reviewed CTA chest images and recommended admission to hospitalist team. Of note patient's blood sugars have been 4-500 range since initiation of Solu-Medrol. We have transferred her to ICU at this time for insulin drip. [facility] was updated with patient's updated status of being on an insulin drip at this time. Cardiac stress test January 2024 1. Attenuation artifact is seen in anterior wall. No evidence of ischemia 2. LV systolic function is normal with EF of 72%. Physical Exam Narrative: General Well-developed well-nourished obese female NAD, no conversational dysphnea, on HHF, 45 L 50% FiO2. No conversational dyspnea appears very comfortable on high flow at this time. Denies a cough at this time. Denies hemoptysis. CV regular rate and rhythm Lungs clear to auscultation bilaterally no rales or wheezes or crackles Abdomen positive bowel sounds soft obese nontender Skin warm and dry Mood and affect normal Urinary Catheter Management: Dent: Cath Placed During This Visit: yes Reason for Continuing Indwelling Catheter: Accurate Measurement of Urinary Output in Critically Ill Patients Urinary Catheter Date of Insertion: 11/10/24 Urinary Catheter Time of Insertion: 20:31 TS Data Studies Completed and Pending Pending at discharge Category Date Time Status BMP [Basic Metabolic Panel] Q4H Lab 11/14/24 17:20 Ordered BMP [Basic Metabolic Panel] Q4H Lab 11/14/24 21:20 Ordered BMP [Basic Metabolic Panel] Q4H Lab 11/15/24 01:20 Ordered BMP [Basic Metabolic Panel] Q4H Lab 11/15/24 05:20 Ordered Blood Culture Stat Lab 11/14/24 12:30 Results Sputum Culture and Gram Stain Stat Lab 11/14/24 12:12 Uncollected Urine Culture Stat Lab 11/14/24 12:12 Uncollected CV. echo complete* [id number] Urgent Ultrasound 11/13/24 07:10 Taken Completed Studies During Hospitalization Category Date Time Status CTA PE [CT angio chest PE protcl [id number]] Stat Cat Scan 11/13/24 06:54 Completed XR chest 1V portable [id number] Routine Exams 11/13/24 02:30 Completed XR chest 1V portable [id number] Stat Exams 11/10/24 18:26 Completed XR hip RT 1V wo/w pel [id number] Routine Exams 11/12/24 15:54 Completed XR hip RT 2-3V wo/w pel* [id number] Stat Exams 11/10/24 17:24 Completed XR sacrum coccyx min 2V [id number] Stat Exams 11/10/24 17:24 [place] [id number] Stat Ultrasound 11/13/24 07:01 Completed Laboratory Last Values WBC 10.06 10^3/uL (3.29-11.43) 11/14/24 07:00 RBC 2.84 10^6/uL (3.85-5.65) L 11/14/24 07:00 Hgb 8.40 g/dL (11.27-16.99) L 11/14/24 07:00 Hct 26.9 % (36-47) L 11/14/24 07:00 MCV 94.7 fl (85-98) 11/14/24 07:00 MCH 29.6 pg (27-33) 11/14/24 07:00 MCHC 31.2 g/dL (30-55) 11/14/24 07:00 RDW 13.8 % (12.1-15.1) 11/14/24 07:00 Plt Count 165 10^3/cmm (157-399) 11/14/24 07:00 MPV 11.1 fL (7.4-10.4) H 11/14/24 07:00 Neut % (Auto) 91.2 % 11/14/24 07:00 Lymph % (Auto) 4.1 % 11/14/24 07:00 Dewey % (Auto) 3.6 % 11/14/24 07:00 Eos % (Auto) 0.0 % 11/14/24 07:00 Baso % (Auto) 0.1 % 11/14/24 07:00 Neut # (Auto) 9.18 10^3/uL (1.8-7.7) H 11/14/24 07:00 Lymph # (Auto) 0.4 10^3/uL (0.8-4.8) L 11/14/24 07:00 Dewey # (Auto) 0.4 10^3/uL (0.2-0.9) 11/14/24 07:00 Eos # (Auto) 0.0 10^3/uL (0.0-0.8) 11/14/24 07:00 Baso # (Auto) 0.0 10^3/uL (0.0-0.1) 11/14/24 07:00 Nucleated RBC % (auto) 0 % 11/14/24 07:00 Nucleated RBCs # 0.0 /100WBC 11/14/24 07:00 D-Dimer 2.45 ug/mLFEU (0-0.59) H 11/13/24 05:07 Specimen Type Arterial 11/14/24 07:47 Sample Site Radial, right 11/14/24 07:47 ABG pH 7.41 (7.35-7.45) 11/14/24 07:47 ABG pCO2 41.1 mmHg (35-45) 11/14/24 07:47 ABG pO2 64.0 mmHg (80.0-100.0) L 11/14/24 07:47 ABG PO2/FiO2 Ratio 120 11/14/24 07:47 ABG HCO3 26.2 mmol/L (22-26) H 11/14/24 07:47 ABG O2 Saturation 92.8 11/14/24 07:47 ABG Base Excess 1.5 mmol/L (-2.0-2.0) 11/14/24 07:47 Vishal Test Pos 11/14/24 07:47 A-a O2 Gradient 34.1 mmHg (5-10) H 11/14/24 07:47 Hematocrit 26.3 % (37-47) L 11/14/24 07:47 Hgb O2 Saturation 91.5 % (95-100) L 11/14/24 07:47 Carboxyhemoglobin 1.2 %THgb (0.4-20.1) 11/14/24 07:47 Methemoglobin 0.3 % (0.4-1.5) L 11/14/24 07:47 Total Hemoglobin 8.6 g/dL (12-16) L 11/14/24 07:47 Sodium 128.0 mmol/L (131-143) L 11/14/24 07:47 Potassium 4.4 mmol/L (3.5-5.0) 11/14/24 07:47 Glucose 519.0 mg/dL (70-115) H 11/14/24 07:47 Ionized Calcium 1.2 mmol/L (1.1-1.4) 11/14/24 07:47 O2 Delivery Device Nc 11/14/24 07:47 O2 Liters/Min 45.0 % 11/14/24 07:47 FiO2 53.0 % 11/14/24 07:47 Sow Manager ID [place] 11/14/24 07:47 Sodium 132 mmol/L (136-145) L 11/14/24 13:36 Potassium 3.4 mmol/L (3.5-5.1) L 11/14/24 13:36 Chloride 95 mmol/L (98-107) L 11/14/24 13:36 Carbon Dioxide 23 mmol/L (22-29) 11/14/24 13:36 Anion Gap 17.4 (5-19) 11/14/24 13:36 BUN 25 mg/dL (6-20) H 11/14/24 13:36 Creatinine 0.8 mg/dL (0.5-0.9) 11/14/24 13:36 GFR Calculation 74.2 mL/min (90-130) L 11/14/24 13:36 Glucose 449 mg/dL (65-115) H 11/14/24 13:36 POC Glucose 437 mg/dL (70-110) H 11/14/24 14:14 Estimat Average Glucose 186 11/10/24 18:47 Hemoglobin A1c 8.1 % (4.0-6.0) H 11/10/24 18:47 Calculated Osmolality 298 mOsm/kg (285-295) H 11/14/24 13:36 Calcium 8.3 mg/dL (8.5-10.5) L 11/14/24 13:36 Magnesium 1.9 mg/dL (1.7-2.3) 11/14/24 07:00 Total Bilirubin 0.7 mg/dL (0.15-1.2) 11/10/24 18:47 AST 160 U/L (0-32) H 11/10/24 18:47 ALT 48 U/L (0-33) H 11/10/24 18:47 Alkaline Phosphatase 285 U/L (35-105) H 11/10/24 18:47 NT-Pro-B Natriuret Pep 888 pg/mL (0-125) H 11/13/24 05:07 Total Protein 6.4 g/dL (6.6-8.7) L 11/10/24 18:47 Albumin 3.1 g/dL (3.5-5.2) L 11/10/24 18:47 Globulin 3.3 g/dL (1.3-4.6) 11/10/24 18:47 Urine Color Yellow (Yellow) 11/10/24 20:24 Urine Appearance Clear (CLEAR) 11/10/24 20:24 Urine pH 7.5 (5-7) 11/10/24 20:24 Ur Specific [place] 1.012 (1.005-1.030) 11/10/24 20:24 Urine Protein 1+ (Negative) A 11/10/24 20:24 Urine Glucose (UA) 1+ (Normal) H 11/10/24 20:24 Urine Ketones Negative (Negative) 11/10/24 20:24 Urine Blood Negative (Negative) 11/10/24 20:24 Urine Nitrate Negative (Negative) 11/10/24 20:24 Urine Bilirubin Negative (Negative) 11/10/24 20:24 Urine Urobilinogen 2.0 mg/dL (Negative) H 11/10/24 20:24 Ur Leukocyte Esterase Negative (Negative) 11/10/24 20:24 Urine RBC 0-2 /hpf (0-2) 11/10/24 20:24 Urine WBC 0-5 /hpf (0-5) 11/10/24 20:24 Ur Squamous Epith Cells 0-5 /hpf (0-5) 11/10/24 20:24 Amorphous Sediment Not Reportable 11/10/24 20:24 Urine Bacteria None seen /hpf (NONE) 11/10/24 20:24 Hyaline Casts 0-4 /lpf H 11/10/24 20:24 Nasal MRSA (PCR) Not detected (Not Detecte) 11/13/24 09:11 Vancomycin Trough < 4.0 ug/mL (10-15) L 11/14/24 07:00 Radiology Impressions Hip/Pelvis X-Ray 11/10/24 17:24 IMPRESSION: As above. Sacrum and Coccyx X-Ray 11/10/24 17:24 IMPRESSION: As above. Hip X-Ray 11/12/24 15:54 IMPRESSION: Total right hip arthroplasty without abnormality. Chest X-Ray 11/13/24 02:30 IMPRESSION: Interval development of pulmonary edema most likely congestive heart failure. Chest CTA 11/13/24 06:54 IMPRESSION: 1. No visualized pulmonary embolus. 2. Subpleural atelectasis of the posterior lungs greater on the left intervally increased. 3. Interval development of a spiculated mass right upper lobe abutting the fissure.Consider non-emergent PET/CT or tissue sampling.(Reference: Kalpesh) 4. Persistent mediastinal and bilateral hilar adenopathy is similar. 5. Extensive diffuse abnormal interstitial pulmonary changes with partial ground-glass opacities and prominent bronchiectasis show interval progression of extent of involvement. Finding should be correlated to any prior documentation of etiology of underlying chronic changes. If unknown, high-resolution chest CT may be of benefit in further assessment. 6. Small focus of sclerosis within T8. REFERENCES: Kalpesh Swanson, et al. Guidelines for Management of Incidental Pulmonary Nodules Detected on CT Images: From the Fleischner Society 2017. Radiology. 2017;284(1):228-243. Recent Clincial Data Last Vital Signs Temp 96.9 F L 11/14/24 11:00 Pulse 81 11/14/24 11:24 Resp 18 11/14/24 11:29 BP 107/61 11/14/24 11:00 Pulse Ox 95 11/14/24 11:29 O2 Del Method Heated High Flow 11/14/24 11:24 O2 Flow Rate 45 11/14/24 11:24 FiO2 45 11/14/24 11:24 Vital Signs Temp Pulse Pulse Pulse Resp Resp BP 11/14/24 11:29 18 11/14/24 11:24 81 11/14/24 11:24 93 18 11/14/24 11:00 96.9 F L 83 17 107/61 11/14/24 08:13 75 18 11/14/24 08:13 79 18 11/14/24 08:00 97.6 F 86 17 107/65 11/14/24 05:13 16 11/14/24 04:34 83 11/14/24 03:24 97.5 F L 77 12 107/68 Pulse Ox Pulse Ox Pulse Ox O2 Del Method O2 Flow Rate O2 Flow Rate O2 Flow Rate 11/14/24 11:29 95 11/14/24 11:24 95 45 11/14/24 11:24 95 Heated High Flow 45 11/14/24 11:00 97 Heated High Flow 11/14/24 08:13 94 45 11/14/24 08:13 94 Heated High Flow 45 11/14/24 08:00 High Flow Nasal Cannula 45 11/14/24 05:13 97 11/14/24 04:34 91 45 11/14/24 03:24 90 Heated High Flow FiO2 FiO2 FiO2 11/14/24 11:29 11/14/24 11:24 45 11/14/24 11:24 45 11/14/24 11:00 11/14/24 08:13 50 11/14/24 08:13 50 11/14/24 08:00 50 11/14/24 05:13 11/14/24 04:34 50 11/14/24 03:24 Intake & Output/Weight 11/12/24 11/13/24 11/14/24 11/15/24 06:59 06:59 06:59 06:59 Intake Total 2918.75 / 2918.75 2555 / 2555 1290 / 1290 536.583 / 536.583 Output Total 950 / 950 1850 / 1850 3350 / 3350 750 / 750 Balance 1968.75 / 1968.75 705 / 705 -2060 / -2060 -213.417 / -213.417 Weight 97.069 kg 98.43 kg 95.708 kg Vitals Last Vital Signs Temp 96.9 F L 11/14/24 11:00 Pulse 81 11/14/24 11:24 Resp 18 11/14/24 11:29 BP 107/61 11/14/24 11:00 Pulse Ox 95 11/14/24 11:29 O2 Del Method Heated High Flow 11/14/24 11:24 O2 Flow Rate 45 11/14/24 11:24 FiO2 45 11/14/24 11:24 TS Medications Medications Hydrocodone Bitart/Acetaminophen (Hydrocodone-Acetaminophen 5-325 Mg Tablet) 1 tab PO Q4H PRN PRN Reason: MODERATE PAIN Last Admin: 11/14/24 09:15 Dose: 1 tab Albuterol Sulfate (Albuterol 2.5 Mg/0.5 Ml Neb) 2.5 mg NEBULIZER QID.RESPIRATORY PRN PRN Reason: SHORTNESS OF BREATH Albuterol/Ipratropium (Ipratropium-Albuterol 3 Ml Neb) 3 ml INHALATION QID.RESPIRATORY PHONG Last Admin: 11/14/24 11:23 Dose: 3 ml Aspirin (Aspirin 325 Mg Ec Tablet) 325 mg PO DAILY PHONG Last Admin: 11/14/24 09:09 Dose: 325 mg Atorvastatin Calcium (Atorvastatin 40 Mg Tablet) 80 mg PO QAM [facility] Last Admin: 11/14/24 05:13 Dose: 80 mg Calcium Carbonate (Calcium Carbonate 500 Mg Chew Tablet) 1,000 mg PO BID [facility] Last Admin: 11/14/24 09:08 Dose: 1,000 mg Chlorhexidine Gluconate (Chlorhexidine Gluconate 0.12% Btl 473 Ml) 30 ml MUCOUS MEM QID [facility] Last Admin: 11/14/24 12:50 Dose: Not Given Cyclobenzaprine HCl (Cyclobenzaprine 10 Mg Tablet) 10 mg PO TID PRN PRN Reason: MUSCLE SPASMS Last Admin: 11/14/24 09:15 Dose: 10 mg Docusate Sodium (Docusate Sodium 100 Mg Capsule) 100 mg PO BID [facility] Last Admin: 11/14/24 09:09 Dose: 100 mg Enoxaparin Sodium (Enoxaparin 40 Mg/0.4 Ml Syringe) 40 mg SUBCUT DAILY [facility] Last Admin: 11/14/24 09:08 Dose: 40 mg Glucagon (Glucagon 1 Mg/Ml Kit 1 Ml) 1 mg IM ONCE PRN; Protocol PRN Reason: Adult Acute Hypoglycemia Nursing Prot. Glucagon (Glucagon 1 Mg/Ml Kit 1 Ml) 1 mg IM ONCE PRN; Protocol PRN Reason: Adult Acute Hypoglycemia Nursing Prot. Guaifenesin (Guaifenesin 600 Mg Tablet) 600 mg PO Q12H PRN PRN Reason: CONGESTION Dextrose (D5w) 500 mls @ 0 mls/hr IV ONCE PRN; Protocol PRN Reason: Adult Acute Hypoglycemia Prot Dextrose (D10w) 125 mls @ 750 mls/hr IV PRN PRN; Protocol PRN Reason: Adult Acute Hypoglycemia Nursing Protocol Dextrose (D10w) 250 mls @ 1,000 mls/hr IV PRN PRN; Protocol PRN Reason: Adult Acute Hypoglycemia Nursing Protocol Piperacillin Sod/Tazobactam (Sod 3.375 gm/ Sodium Chloride) 50 mls @ 12.5 mls/hr IV Q8H [facility]; Protocol Last Infusion: 11/14/24 11:05 Dose: Infused Dextrose (D5w) 500 mls @ 0 mls/hr IV ONCE PRN; Protocol PRN Reason: Adult Acute Hypoglycemia Prot Dextrose (D10w) 125 mls @ 750 mls/hr IV PRN PRN; Protocol PRN Reason: Adult Acute Hypoglycemia Nursing Protocol Dextrose (D10w) 250 mls @ 1,000 mls/hr IV PRN PRN; Protocol PRN Reason: Adult Acute Hypoglycemia Nursing Protocol Insulin Human Regular (Myxredlin 100 Unit/100 Ml Bag) 100 unit in 100 mls @ 0 mls/hr IV PROTOCOL [facility]; Protocol Last Titration: 11/14/24 14:15 Dose: 18 unit/hr, 18 mls/hr Vancomycin HCl (Vancocin) 1,500 mg in 300 mls @ 200 mls/hr IV Q12H [facility] Last Admin: 11/14/24 12:50 Dose: 200 mls/hr Sodium Chloride (Sodium Chloride 0.9%) 1,000 mls @ 75 mls/hr IV .[id number] [facility] Magnesium Hydroxide (Magnesium Hydroxide 30 Ml Udc) 30 ml PO DAILY PRN; Protocol PRN Reason: Constipation (see protocol) Melatonin (Melatonin 3 Mg Tablet) 3 mg PO BEDTIME [facility] Last Admin: 11/13/24 21:18 Dose: 3 mg Methylprednisolone Sodium Succinate (Methylprednisolone Sod Succ 40 Mg/Ml Inj) 40 mg IVP Q12H [facility] Morphine Sulfate (Morphine 4 Mg/Ml Sdv 1 Ml) 4 mg IVP Q4H PRN PRN Reason: BREAKTHROUGH PAIN Last Admin: 11/14/24 11:29 Dose: 4 mg Multivitamins Therapeutic (Multivitamin Therapeutic Tablet) 1 tab PO DAILY [facility] Last Admin: 11/14/24 09:09 Dose: 1 tab Mupirocin (Mupirocin Oint 22 Gm) 1 applic NASAL BID [facility] Stop: 11/17/24 17:59 Last Admin: 11/14/24 09:09 Dose: Not Given Naloxone HCl (Naloxone 0.4 Mg/Ml Sdv) 0.1 mg IVP Q2M PRN PRN Reason: OPIATERV Nicotine (Nicotine 14 Mg Patch) 1 patch TRANSDERMA DAILY [facility] Last Admin: 11/14/24 09:09 Dose: 1 patch Non-Formulary Medication (Apremilast [Otezla]) 30 mg PO BID [facility] Non-Formulary Medication (Tofacitinib [Xeljanz]) 5 mg PO BID [facility] Ondansetron HCl (Ondansetron 2 Mg/Ml Sdv 2 Ml) 4 mg IVP Q8H PRN PRN Reason: vomiting, or N/V if npo Last Admin: 11/12/24 07:09 Dose: 4 mg Pantoprazole Sodium (Pantoprazole Dr 40 Mg Tablet) 40 mg PO QAM [facility] Last Admin: 11/14/24 05:13 Dose: 40 mg Polysaccharide Iron Complex (Iron Polysaccharide Complex 150 Mg Capsule) 150 mg PO BIDWM [facility] Last Admin: 11/14/24 07:37 Dose: 150 mg Pregabalin (Pregabalin 50 Mg Capsule) 50 mg PO BID [facility] Last Admin: 11/14/24 09:09 Dose: 50 mg Ropinirole HCl (Ropinirole 1 Mg Tablet) 3 mg PO BEDTIME [facility] Last Admin: 11/13/24 21:18 Dose: 3 mg Senna/Docusate Sodium (Sennosides-Docusate Tablet) 2 tab PO BID [facility] Last Admin: 11/14/24 09:09 Dose: 2 tab Sertraline HCl (Sertraline 100 Mg Tablet) 100 mg PO QAM [facility] Last Admin: 11/14/24 05:13 Dose: 100 mg Tamsulosin HCl (Tamsulosin 0.4 Mg Capsule) 0.4 mg PO BEDTIME [facility] Last Admin: 11/13/24 21:18 Dose: 0.4 mg Vitamin D (Cholecalciferol (Vitamin D3) 1,000 Unit Tablet) 1,000 unit PO DAILY [facility] Last Admin: 11/14/24 09:08 Dose: 1,000 unit Discontinued Medications Albuterol Sulfate (Albuterol 8 Gm Mdi) 2 puff INHALATION BID PRN PRN Reason: SHORTNESS OF BREATH Albuterol Sulfate (Albuterol 2.5 Mg/0.5 Ml Neb) 2.5 mg NEBULIZER BID.RESPIRATORY PRN PRN Reason: SHORTNESS OF BREATH Albuterol Sulfate (Albuterol 2.5 Mg/3 Ml Neb) 2.5 mg INHALATION ONCE PRN PRN Reason: WHEEZING Albuterol Sulfate (Albuterol 2.5 Mg/3 Ml Neb) 2.5 mg INHALATION ONCE PRN PRN Reason: WHEEZING Albuterol Sulfate (Albuterol 8 Gm Mdi) Confirm Administered Dose 60 puff .ROUTE .STK-MED ONE Stop: 11/12/24 15:46 Aspirin (Aspirin 81 Mg Ec Tablet) 81 mg PO DAILY@0800 [facility] Last Admin: 11/12/24 08:36 Dose: 81 mg Cefazolin Sodium (Cefazolin 2,000 Mg Sdv) 2,000 mg IVP [employer] ONE; Protocol Stop: 11/12/24 13:47 Last Admin: 11/12/24 14:25 Dose: 2,000 mg Cefazolin Sodium (Cefazolin 2,000 Mg Sdv) 2,000 mg IVP Q8H [facility]; Protocol Stop: 11/13/24 14:31 Last Admin: 11/13/24 05:42 Dose: 2,000 mg Ceftriaxone Sodium (Ceftriaxone 1,000 Mg Sdv) 1,000 mg IVP Q24H PHONG; Protocol Last Admin: 11/12/24 08:36 Dose: 1,000 mg Dexamethasone (Dexamethasone 4 Mg/Ml Inj) Confirm Administered Dose 8 mg .ROUTE .[employer] ONE Stop: 11/12/24 13:26 Dexamethasone (Dexamethasone 4 Mg/Ml Inj) 4 mg IVP Q5M PRN PRN Reason: Nausea unrelieved by Reglan Stop: 11/13/24 13:52 Dexamethasone (Dexamethasone 4 Mg/Ml Inj) 4 mg IVP Q5M PRN PRN Reason: Nausea unrelieved by Reglan Stop: 11/13/24 15:44 Doxycycline Monohydrate (Doxycycline 100 Mg Tablet) 100 mg PO BID PHONG; Protocol Last Admin: 11/14/24 09:09 Dose: 100 mg Famotidine (Famotidine 20 Mg/2 Ml Inj) 20 mg IVP ONCE PRN PRN Reason: HEARTBURN Famotidine (Famotidine 20 Mg/2 Ml Inj) 20 mg IVP ONCE PRN PRN Reason: HEARTBURN Fentanyl (Fentanyl 50 Mcg/Ml Inj 2ml) 50 mcg IVP ONCE ONE Stop: 11/10/24 17:41 Last Admin: 11/10/24 18:22 Dose: 50 mcg Fentanyl (Fentanyl 50 Mcg/Ml Inj 2ml) 75 mcg IVP ONCE ONE Stop: 11/10/24 20:07 Last Admin: 11/10/24 20:11 Dose: 75 mcg Fentanyl (Fentanyl 50 Mcg/Ml Inj 2ml) Confirm Administered Dose 100 mcg .ROUTE .[employer] ONE Stop: 11/12/24 13:25 Fentanyl (Fentanyl 50 Mcg/Ml Inj 2ml) 50 mcg IVP Q10M PRN PRN Reason: Preop Pain Fentanyl (Fentanyl 50 Mcg/Ml Inj 2ml) 100 mcg IVP ONCE PRN PRN Reason: Per anesthesia for block Fentanyl (Fentanyl 50 Mcg/Ml Inj 2ml) 50 mcg IVP Q10M PRN PRN Reason: Preop Pain Fentanyl (Fentanyl 50 Mcg/Ml Inj 2ml) 100 mcg IVP ONCE PRN PRN Reason: Per anesthesia for block Fentanyl (Fentanyl 50 Mcg/Ml Inj 2ml) 50 mcg IVP Q5M PRN PRN Reason: Pain level 6-10 PACU Phase I Stop: 11/13/24 13:52 Fentanyl (Fentanyl 50 Mcg/Ml Inj 2ml) 50 mcg IVP Q5M PRN PRN Reason: Pain level 6-10 PACU Phase I Stop: 11/13/24 15:44 Furosemide (Furosemide 10 Mg/Ml Sdv 4ml) 40 mg IVP ONCE ONE Stop: 11/13/24 07:59 Last Admin: 11/13/24 08:04 Dose: 40 mg Furosemide (Furosemide 10 Mg/Ml Sdv 4ml) 40 mg IVP Q12H [facility] Last Admin: 11/14/24 05:13 Dose: 40 mg Furosemide (Furosemide 10 Mg/Ml Sdv 4ml) 40 mg IVP Q24H [facility] Glycopyrrolate (Glycopyrrolate 0.2 Mg/Ml Sdv 2 Ml) Confirm Administered Dose 0.4 mg .ROUTE .STK-MED ONE Stop: 11/12/24 13:54 Hydromorphone HCl (Hydromorphone 1 Mg/Ml Inj 1ml) 0.25 mg IVP Q10M PRN PRN Reason: Pain level 4-6 PACU Phase I Stop: 11/13/24 13:52 Hydromorphone HCl (Hydromorphone 1 Mg/Ml Inj 1ml) 0.5 mg IVP Q10M PRN PRN Reason: Pain level 7-10 PACU Phase I Stop: 11/13/24 13:52 Hydromorphone HCl (Hydromorphone 1 Mg/Ml Inj 1ml) 0.5 mg IVP Q10M PRN PRN Reason: Pain level 7-10 PACU Phase I Stop: 11/13/24 15:44 Hydromorphone HCl (Hydromorphone 1 Mg/Ml Inj 1ml) 0.25 mg IVP Q10M PRN PRN Reason: Pain level 4-6 PACU Phase I Stop: 11/13/24 15:44 Sodium Chloride (Sodium Chloride 0.9%) 1,000 mls @ 75 mls/hr IV .[id number] PHONG Last Infusion: 11/13/24 06:56 Dose: Infused Sodium Chloride (Sodium Chloride 0.9%) 1,000 mls @ 30 mls/hr IV .Q24H [facility] Stop: 11/13/24 13:59 Last Infusion: 11/13/24 06:56 Dose: Infused Sodium Chloride (Sodium Chloride 0.9%) Confirm Administered Dose 1,000 mls @ as directed .ROUTE .STK-MED ONE Stop: 11/12/24 13:51 Last Admin: 11/12/24 16:52 Dose: Not Given Sodium Chloride (Sodium Chloride 0.9%) 1,000 mls @ 30 mls/hr IV .Q24H [facility] Stop: 11/13/24 13:59 Last Admin: 11/12/24 16:53 Dose: Not Given Sodium Chloride (Sodium Chloride 0.9%) 500 mls @ 999 mls/hr IV .Q31M PRN PRN Reason: HYPOTENSION Sodium Chloride (Sodium Chloride 0.9%) 500 mls @ 999 mls/hr IV .Q31M PRN PRN Reason: HYPOTENSION Vancomycin HCl (Vancocin) 2,000 mg in 400 mls @ 200 mls/hr IV Q12H [facility] Last Infusion: 11/13/24 11:28 Dose: Infused Insulin Glargine (Insulin Glargine 100 Units/1 Ml) 50 unit SUBCUT DAILY@0800 [facility] Last Admin: 11/11/24 08:12 Dose: 50 unit Insulin Glargine (Insulin Glargine 100 Units/1 Ml) 25 unit SUBCUT DAILY@0800 [facility] Last Admin: 11/12/24 08:35 Dose: Not Given Insulin Glargine (Insulin Glargine 100 Units/1 Ml) 15 unit SUBCUT BEDTIME [facility] Last Admin: 11/13/24 23:00 Dose: 15 unit Insulin Glargine (Insulin Glargine 100 Units/1 Ml) 15 unit SUBCUT NOW ONE Stop: 11/14/24 08:01 Last Admin: 11/14/24 09:08 Dose: 15 unit Insulin Human Lispro (Insulin Lispro 100 Unit/1 Ml) 0 unit SUBCUT WM&BEDTIME [facility]; Protocol Last Admin: 11/14/24 07:37 Dose: 16 unit Insulin Human Lispro (Insulin Lispro 100 Unit/1 Ml) 4 unit SUBCUT NOW ONE Stop: 11/14/24 08:01 Last Admin: 11/14/24 09:08 Dose: 4 unit Iohexol (Iohexol 350 Mg/Ml 500 Ml Btl (Per Ml)) 0 ml IV ONCE ONE Stop: 11/13/24 07:13 Last Admin: 11/13/24 07:12 Dose: 59 ml Ipratropium [place] (Ipratropium 0.5 Mg/2.5 Ml Neb) 0.5 mg INHALATION ONCE PRN PRN Reason: WHEEZING Ipratropium [place] (Ipratropium 0.5 Mg/2.5 Ml Neb) 0.5 mg INHALATION ONCE PRN PRN Reason: WHEEZING Ipratropium [place] (Ipratropium 0.5 Mg/2.5 Ml Neb) Confirm Administered Dose 0.5 mg .ROUTE .STK-MED ONE Stop: 11/12/24 14:03 Last Admin: 11/12/24 14:05 Dose: 0.5 mg Ketorolac Tromethamine (Ketorolac 30 Mg/Ml Inj) 15 mg IVP ONCE ONE Stop: 11/11/24 01:55 Last Admin: 11/11/24 02:24 Dose: 15 mg Lidocaine HCl (Lidocaine 1% Inj 20 Ml) 0.1 ml INTRADERMA PRN PRN PRN Reason: anesthetic prior to IV start Stop: 11/13/24 13:46 Lidocaine HCl (Lidocaine 1% Inj 20 Ml) 0.1 ml INTRADERMA PRN PRN PRN Reason: anesthetic prior to IV start Stop: 11/13/24 13:51 Meperidine HCl (Meperidine 50 Mg/Ml Inj) 12.5 mg IVP Q5M PRN PRN Reason: Shivering PACU Phase I Stop: 11/13/24 13:52 Meperidine HCl (Meperidine 50 Mg/Ml Inj) 12.5 mg IVP Q5M PRN PRN Reason: Shivering PACU Phase I Stop: 11/13/24 15:44 Methylprednisolone Sodium Succinate (Methylprednisolone Sod Succ 40 Mg/Ml Inj) 40 mg IVP Q8H [facility] Last Admin: 11/14/24 07:36 Dose: 40 mg Metoclopramide HCl (Metoclopramide 5 Mg/Ml Sdv 2 Ml) 10 mg IVP ONCE PRN PRN Reason: N/V if zofran ineffective Metoclopramide HCl (Metoclopramide 5 Mg/Ml Sdv 2 Ml) 10 mg IVP ONCE PRN PRN Reason: N/V if zofran ineffective Metoclopramide HCl (Metoclopramide 5 Mg/Ml Sdv 2 Ml) 10 mg IVP Q5M PRN PRN Reason: Nausea unrelieved by Zofran Stop: 11/13/24 13:52 Metoclopramide HCl (Metoclopramide 5 Mg/Ml Sdv 2 Ml) 10 mg IVP Q5M PRN PRN Reason: Nausea unrelieved by Zofran Stop: 11/13/24 15:44 Midazolam HCl (Midazolam 1 Mg/Ml Inj 2 Ml) Confirm Administered Dose 2 mg .ROUTE .[facility]-MED ONE Stop: 11/12/24 13:25 Midazolam HCl (Midazolam 1 Mg/Ml Inj 2 Ml) 2 mg IVP Q5M PRN PRN Reason: Preop Anxiety Midazolam HCl (Midazolam 1 Mg/Ml Inj 5 Ml) 5 mg IVP ONCE PRN PRN Reason: Per anesthesia for block Midazolam HCl (Midazolam 1 Mg/Ml Inj 2 Ml) 2 mg IVP Q5M PRN PRN Reason: Preop Anxiety Midazolam HCl (Midazolam 1 Mg/Ml Inj 5 Ml) 5 mg IVP ONCE PRN PRN Reason: Per anesthesia for block Morphine Sulfate (Morphine 4 Mg/Ml Sdv 1 Ml) 4 mg IVP Q4H PRN PRN Reason: SEVERE PAIN Last Admin: 11/11/24 01:39 Dose: 4 mg Morphine Sulfate (Morphine 4 Mg/Ml Sdv 1 Ml) 8 mg IVP Q4H PRN PRN Reason: SEVERE PAIN Last Admin: 11/11/24 19:53 Dose: 8 mg Morphine Sulfate (Morphine 4 Mg/Ml Sdv 1 Ml) 2 mg IVP Q5M PRN PRN Reason: Pain level 2-5 PACU Phase I Stop: 11/13/24 13:52 Morphine Sulfate (Morphine 4 Mg/Ml Sdv 1 Ml) 2 mg IVP Q2M PRN PRN Reason: Pain level 6-10 PACU Phase I Stop: 11/13/24 13:52 Morphine Sulfate (Morphine 4 Mg/Ml Sdv 1 Ml) 0 mg IVP Q5M PRN PRN Reason: Breakthrough Pain PACU PhaseII Morphine Sulfate (Morphine 4 Mg/Ml Sdv 1 Ml) 2 mg IVP Q5M PRN PRN Reason: Pain level 2-5 PACU Phase I Stop: 11/13/24 15:44 Morphine Sulfate (Morphine 4 Mg/Ml Sdv 1 Ml) 0 mg IVP Q5M PRN PRN Reason: Breakthrough Pain PACU PhaseII Morphine Sulfate (Morphine 4 Mg/Ml Sdv 1 Ml) 2 mg IVP Q2M PRN PRN Reason: Pain level 6-10 PACU Phase I Stop: 11/13/24 15:44 Naloxone HCl (Naloxone 0.4 Mg/Ml Sdv) 0.1 mg IVP Q2M PRN PRN Reason: Respiratory rate less than 8. Nicotine (Nicotine 14 Mg Patch) 1 patch TRANSDERMA DAILY PHONG Non-Formulary Medication (Ipratropium-Albuterol [Combivent Respimat]) 1 puff IN HALATION Q6H [facility] Ondansetron HCl (Ondansetron 2 Mg/Ml Sdv 2 Ml) Confirm Administered Dose 4 mg .ROUTE .STK-MED ONE Stop: 11/12/24 13:26 Ondansetron HCl (Ondansetron 2 Mg/Ml Sdv 2 Ml) 4 mg IVP Q5M PRN PRN Reason: NAUSEA AND VOMITING Ondansetron HCl (Ondansetron 2 Mg/Ml Sdv 2 Ml) 4 mg IVP Q5M PRN PRN Reason: NAUSEA AND VOMITING Ondansetron HCl (Ondansetron 2 Mg/Ml Sdv 2 Ml) 4 mg IVP Q5M PRN PRN Reason: Nausea PACU Phase I Stop: 11/13/24 13:52 Ondansetron HCl (Ondansetron 2 Mg/Ml Sdv 2 Ml) 4 mg IVP Q15M PRN PRN Reason: Nausea/Vomiting PACU PHASE II Ondansetron HCl (Ondansetron 2 Mg/Ml Sdv 2 Ml) 4 mg IVP Q15M PRN PRN Reason: Nausea/Vomiting PACU PHASE II Ondansetron HCl (Ondansetron 2 Mg/Ml Sdv 2 Ml) 4 mg IVP Q5M PRN PRN Reason: Nausea PACU Phase I Stop: 11/13/24 15:44 Ondansetron HCl (Ondansetron 2 Mg/Ml Sdv 2 Ml) 4 mg IVP Q6H PRN PRN Reason: NAUSEA AND VOMITING Oxycodone HCl (Oxycodone 5 Mg Ir Tab/Cap) 10 mg PO Q6H PRN PRN Reason: SEVERE PAIN Last Admin: 11/14/24 05:13 Dose: 10 mg Propofol (Propofol 10 Mg/Ml Sdv 20 Ml) Confirm Administered Dose 200 mg .ROUTE .STK-MED ONE Stop: 11/12/24 13:25 Rocuronium [place] (Rocuronium 10 Mg/Ml Inj 5ml) Confirm Administered Dose 50 mg .ROUTE .STK-MED ONE Stop: 11/12/24 13:26 Scopolamine (Scopolamine 1 Mg Patch) 1 patch TRANSDERMA ONCE PRN PRN Reason: Nausea/ Vomiting Prophylaxis Scopolamine (Scopolamine 1 Mg Patch) 1 patch TRANSDERMA ONCE PRN PRN Reason: Nausea/ Vomiting Prophylaxis Sugammadex Sodium (Sugammadex 200 Mg/2 Ml Sdv) Confirm Administered Dose 200 mg .ROUTE .STK-MED ONE Stop: 11/12/24 15:10 Tranexamic Acid (Tranexamic Acid 1,000 Mg/10ml Sdv) Confirm Administered Dose 1,000 mg .ROUTE .STK-MED ONE Stop: 11/12/24 14:00 Tranexamic Acid (Tranexamic Acid 1,000 Mg/10ml Sdv) 1,000 mg IV ONCE ONE Stop: 11/12/24 15:34 Last Admin: 11/12/24 14:35 Dose: 1,000 mg Allergies bee venom protein (honey bee) Allergy (Verified 09/18/24 10:39) ALGY-Anaphylaxis topiramate (From Topamax) Allergy (Verified 09/18/24 10:39) ADR-Hallucinating Home Medications rosuvastatin 20 mg tablet (Crestor) 20 mg PO QAM 09/04/19 [History Confirmed 11/10/24] omeprazole 40 mg capsule,delayed release 40 mg PO QAM 09/05/19 [History Confirmed 11/10/24] nitroglycerin 0.4 mg sublingual tablet (Nitrostat) 0.4 mg sublingual Q5M PRN chest pain 30 days #25 tabs 09/09/19 [Rx Confirmed 11/10/24] epinephrine 0.3 mg/0.3 mL injection, auto-injector (EpiPen 2-[place]) See Rx Instructions .Route .COMPLEX PRN Allergic Reaction 11/01/19 [History Confirmed 11/10/24] glucagon HCl 1 mg solution for injection (Glucagon (HCl) Emergency Kit) 1 mg SUBCUT Q20M PRN blood sugar ##0 11/01/19 [History Confirmed 11/10/24] insulin aspart U-100 100 unit/mL (3 mL) subcutaneous pen (Novolog FlexPen U-100 Insulin aspart) See Rx Instructions .Route .COMPLEX 11/01/19 [History Confirmed 11/10/24] albuterol sulfate 2.5 mg/3 mL (0.083 %) solution for nebulization 2.5 mg inhalation Q6H PRN Shortness Of Breath 04/01/20 [History Confirmed 11/10/24] aspirin 81 mg tablet,delayed release 81 mg PO DAILY@0800 08/15/20 [History Confirmed 11/10/24] melatonin 3 mg capsule 3 mg PO BEDTIME 09/04/20 [History Confirmed 11/10/24] apixaban 5 mg tablet (Eliquis) 5 mg PO BID 11/24/20 [History Confirmed 11/10/24] tamsulosin 0.4 mg capsule (Flomax) 0.4 mg PO BEDTIME 05/22/21 [History Confirmed 11/10/24] alprazolam 0.25 mg tablet 0.25 mg PO DAILY PRN anxiety 09/16/22 [History Confirmed 11/10/24] Knee Walker #1 ea 11/11/22 [Rx Confirmed 11/10/24] sertraline 100 mg tablet (Zoloft) 100 mg PO QAM 01/12/23 [History Confirmed 11/10/24] acetaminophen 500 mg tablet 1,000 mg PO Q12H PRN Pain 03/07/23 [History Confirmed 11/10/24] albuterol sulfate 90 mcg/actuation aerosol inhaler (Ventolin HFA) 2 puff inhalation BID PRN Shortness Of Breath 03/07/23 [History Confirmed 11/10/24] ergocalciferol (vitamin D2) 1,250 mcg (50,000 unit) capsule (Vitamin D2) 50,000 unit PO Q7D 03/07/23 [History Confirmed 11/10/24] folic acid 1 mg tablet 1 mg PO QAM 03/07/23 [History Confirmed 11/10/24] guaifenesin 600 mg tablet, extended release 12 hr (Mucinex) 600 mg PO Q12H PRN Congestion 03/07/23 [History Confirmed 11/10/24] magnesium hydroxide 400 mg/5 mL oral suspension (Milk of Magnesia) 30 ml PO DAILY PRN Constipation 03/07/23 [History Confirmed 11/10/24] ropinirole 3 mg tablet 3 mg PO BEDTIME 03/07/23 [History Confirmed 11/10/24] insulin glargine 100 unit/mL subcutaneous solution 50 unit (0.5 mL) SUBCUT DAILY@0800 #10 mL 03/10/23 [Rx Confirmed 11/10/24] ipratropium 20 mcg-albuterol 100 mcg/actuation mist for inhalation (Combivent Respimat) 1 puff inhalation Q6H PRN Shortness Of Breath #4 grams 04/25/23 [Rx Confirmed 11/10/24] diclofenac sodium 1 % topical gel (Voltaren Arthritis Pain) 4 g topical QID #100 grams 07/28/23 [Rx Confirmed 11/10/24] oxycodone 10 mg tablet 10 mg PO Q4H PRN Pain 07/28/23 [History Confirmed 11/10/24] prednisone 5 mg tablet 5 mg PO DAILY PRN flares #60 tabs 03/20/24 [Rx Confirmed 11/10/24] prednisone 10 mg tablet See Rx Instructions PO DAILY joint pain #30 tabs 09/18/24 [Rx Confirmed 11/10/24] tofacitinib 5 mg tablet (Xeljanz) 5 mg PO BID #60 tabs 09/18/24 [Rx Confirmed 11/10/24] apremilast 30 mg tablet (Otezla) 30 mg PO BID #60 tabs 11/06/24 [Rx Confirmed 11/10/24] Discharge Plan Discharge Patient Disposition: Xfer Other Condition: Stable Prescriptions: No Action omeprazole 40 mg capsule,delayed release(DR/EC) 40 mg PO QAM melatonin 3 mg capsule 3 mg PO BEDTIME Eliquis 5 mg tablet 5 mg PO BID rosuvastatin [Crestor] 20 mg tablet 20 mg PO QAM tamsulosin [Flomax] 0.4 mg capsule 0.4 mg PO BEDTIME alprazolam 0.25 mg tablet 0.25 mg PO DAILY PRN (Reason: anxiety) oxycodone 10 mg tablet 10 mg PO Q4H PRN (Reason: Pain) diclofenac sodium [Voltaren Arthritis Pain] 1 % gel 4 g topical QID Qty: 100 3RF Rx Instructions: apply to single elbow, wrist or hand; for hand includes palm/fingers/back of hand prednisone 5 mg tablet 5 mg PO DAILY PRN (Reason: flares) Qty: 60 1RF prednisone 10 mg tablet See Rx Instructions PO DAILY Qty: 30 1RF Rx Instructions: take 1 tab daily for 3-7 days prn joint pain flare. orally daily; Monitor blood sugars Xeljanz 5 mg tablet 5 mg PO BID Qty: 60 5RF nitroglycerin [Nitrostat] 0.4 mg tablet, sublingual 0.4 mg SUBLINGUAL Q5M PRN (Reason: chest pain) 30 Days Qty: 25 6RF Rx Instructions: until response; do not exceed 3 doses per episode (DME) Knee Walker See Rx Instructions .Route .MEDSUPPLY Qty: 1 0RF Rx Instructions: As directed HOME- Patient has been instructed to be non-weight bearing to the Right Lower Extremity. Combivent Respimat 20-100 mcg/actuation mist 1 puff INHALATION Q6H PRN (Reason: Shortness Of Breath) Qty: 4 6RF Otezla 30 mg tablet 30 mg PO BID Qty: 60 5RF epinephrine [EpiPen 2-[place]] 0.3 mg/0.3 mL Auto-Injector See Rx Instructions .ROUTE .COMPLEX PRN (Reason: Allergic Reaction) Rx Instructions: DIRECTED PRN insulin aspart U-100 [Novolog FlexPen U-100 Insulin] 100 unit/mL (3 mL) insulin pen See Rx Instructions .ROUTE .COMPLEX Rx Instructions: PER SLIDING SCALE TID glucagon HCl [Glucagon (HCl) Emergency Kit] 1 mg Recon Soln 1 mg SUBCUT Q20M PRN (Reason: blood sugar) Qty: 0 albuterol sulfate 2.5 mg /3 mL (0.083 %) Solution For Nebulization 2.5 mg INHALATION Q6H PRN (Reason: Shortness Of Breath) aspirin 81 mg Tablet,Delayed Release (Dr/Ec) 81 mg PO DAILY@0800 albuterol sulfate [Ventolin HFA] 90 mcg/actuation Hfa Aerosol Inhaler 2 puff INHALATION BID PRN (Reason: Shortness Of Breath) bartinirole 3 mg tablet 3 mg PO BEDTIME acetaminophen 500 mg Tablet 1,000 mg PO Q12H PRN (Reason: Pain) magnesium hydroxide [Milk of Magnesia] 400 mg/5 mL Suspension 30 ml PO DAILY PRN (Reason: Constipation) folic acid 1 mg Tablet 1 mg PO QAM ergocalciferol (vitamin D2) [Vitamin D2] 1,250 mcg (50,000 unit) Capsule 50,000 unit PO Q7D Rx Instructions: on mon guaifenesin [Mucinex] 600 mg Tablet Extended Release 12hr 600 mg PO Q12H PRN (Reason: Congestion) insulin glargine 100 unit/mL Solution 50 unit SUBCUT DAILY@0800 Qty: 10 0RF sertraline [Zoloft] 100 mg tablet 100 mg PO QAM Referrals: Nel Peacock MD [Primary Care Provider, Internal Medicine] - 11/21/24 10:00 am Manda Woodard NP [Nurse Practitioner, Cardiology] - 11/21/24 1:30 pm Patient Instructions: Acute Wound Care (DC), Post Anesthesia Care Transfer Attestations Time Spent in Transfer Care: greater than 30 min Status at Transfer: Cognitive status at transfer: cognitively intact ; Behavioral status at transfer: cooperative ; Quality Metrics Clinical Quality Measures [ No reported AMI, CVA or VTE this stay] Coding Level of Care Code 86407 Total time (in minutes) for Discharge: 70 Diagnoses Closed fracture of neck of right femur, initial encounter S72.001A Encounter type: initial encounter Bronchitis J40 Type 2 diabetes mellitus with diabetic neuropathic arthropathy, with long-term current use of insulin E11.610; Z79.4 Diabetes mellitus complication detail: with neuropathic arthropathy Diabetes mellitus complication status: with diabetic arthropathy Diabetes mellitus care home insulin use: with care home use Diabetes mellitus type: type 2 COPD (chronic obstructive pulmonary disease) J44.9 Tobacco abuse Z72.0 PVD (peripheral vascular disease) I73.9 COPD exacerbation J44.1 Heart failure I50.9 Pneumonia due to infectious organism, unspecified laterality, unspecified part of lung J18.9 Pneumonia type: due to unspecified organism Laterality: unspecified laterality Lung location: unspecified part of lung Hypoxia R09.02
[2024-11-14] MEDS: sodium chloride 0.9% 1,000 ML 75 ML IV (14:36)
[2024-11-14 15:14] LABS: Glucose Point of Care 386 mg/dL (70-110)
[2024-11-14 17:21] LABS: Glucose Point of Care 276 mg/dL (70-110)
[2024-11-14 17:21] LABS: Glucose Point of Care 204 mg/dL (70-110)
[2024-11-14] MEDS: chlorhexidine gluconate 0.12% Btl 473 mL 30 ML MUCOUS MEM ×2 (17:36→21:04)
[2024-11-14] MEDS: mupirocin oint 22 gm 1 APPLIC NASAL (17:36)
[2024-11-14 20:57] LABS: Glucose Point of Care 252 mg/dL (70-110)
[2024-11-14] MEDS: ropinirole 1 mg Tablet 3 MG PO (21:02)
[2024-11-14] MEDS: tamsulosin 0.4 mg Capsule PO (21:02)
[2024-11-14] MEDS: MELATONIN 3 MG TABLET PO (21:02)
== END 2024-11-14 21:35 | disposition short-term general hospital (02) | DRG 521 ==
LOC: ER 19:26 → MEDSURG 20:55 → CSU 11-13 13:38 → ICU 11-14 12:02
PROVIDERS: Internal Medicine; Orthopaedic Surgery; Admitting Provider Internal Medicine; Emergency Provider Student in an Organized Health Care Education/Training Program; PCP Internal Medicine; Visit Provider Internal Medicine
DX: S72.001A Fracture of unspecified part of neck of right femur, initial encounter for closed fracture (principal); J18.9 Pneumonia, unspecified organism; J44.0 Chronic obstructive pulmonary disease with (acute) lower respiratory infection; J44.1 Chronic obstructive pulmonary disease with (acute) exacerbation; D84.821 Immunodeficiency due to drugs; J98.11 Atelectasis; W01.0XXA Fall on same level from slipping, tripping and stumbling without subsequent striking against object, initial encounter; J20.9 Acute bronchitis, unspecified; E10.40 Type 1 diabetes mellitus with diabetic neuropathy, unspecified; E10.51 Type 1 diabetes mellitus with diabetic peripheral angiopathy without gangrene; E10.649 Type 1 diabetes mellitus with hypoglycemia without coma; Z79.4 Long term (current) use of insulin; F17.210 Nicotine dependence, cigarettes, uncomplicated; R09.02 Hypoxemia; M05.9 Rheumatoid arthritis with rheumatoid factor, unspecified; Z89.511 Acquired absence of right leg below knee; Z79.622 Long term (current) use of Janus kinase inhibitor; J47.9 Bronchiectasis, uncomplicated; J43.9 Emphysema, unspecified; R91.8 Other nonspecific abnormal finding of lung field; M81.0 Age-related osteoporosis without current pathological fracture; Z79.891 Long term (current) use of opiate analgesic; Z79.01 Long term (current) use of anticoagulants; Z79.82 Long term (current) use of aspirin; E66.9 Obesity, unspecified; Z68.35 Body mass index [BMI] 35.0-35.9, adult
CPT/HCPCS: 36415; 36416; 36600; 51702; 71045; 71275; 72220; 73501; 73502; 80048; 80051; 80053; 80202; 81001; 82330; 82805; 82962; 83036; 83735; 83880; 85025; 85378; 87040; 93005; 93306; 93970; 94640; 94762; 96372; 96376; 97110; 97162; 97167; 97530; 99285; C1776; J0690; J0696; J1100; J1650; J1815; J1885; J1940; J2250; J2270; J2405; J2543; J2704; J2919; J3010; J3370; J3372; J3490; J3535; J7030; J7644; J9999

== ENCOUNTER 2024-11-22 19:49 | Inpatient (IN) | payer MEDICAID, SELFPAY ==
[2024-11-22 20:27] VITALS: BP 145/73; PULSE 88; RESP 18; TEMP 36.6; O2SAT 94; BMI 34.9
--- NOTE | 2024-11-22 20:47 | XRR_ITS ---
PROCEDURE INFORMATION: Exam: XR Right Hip Exam date and time: 11/22/2024 9:07 PM Age: 54 years old Clinical indication: Injury or trauma; Other: Concern for dislocation; Blunt trauma (contusions or hematomas); Right; Prior surgery; Surgery date: <1 month; Surgery type: RT ryan on 11/12/2024; Patient was being transferred from bed when she felt a pop in RT hip and is now C/O severe pain. ; Additional info: Post surgical injury TECHNIQUE: Imaging protocol: Radiologic exam of the right hip. Views: 1 view hip with pelvis when performed. 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 There is periprosthetic fracture of the proximal femoral stem of the arthroplasty component as well as superior dislocation of the acetabular component from the bony pelvis. Soft tissues: Unremarkable. XR/XR hip RT 2-3V wo/w pel* [id number] IMPRESSION: As above.
[2024-11-22 21:23] LABS: Basophils % 0.2 %; Eosinophils # 0.2 10^3/uL (0.0-0.8); Eosinophils % 0.9 %; Hematocrit 30.7 % (36-47); Lymphocytes # 2.3 10^3/uL (0.8-4.8); Lymphocytes % 12.6 %; Mean Corpuscular HGB Conc 31.6 g/dL (30-55); Mean Corpuscular Hemoglobin 28.7 pg (27-33); Mean Corpuscular Volume 90.8 fl (85-98); Mean Platelet Volume 10.2 fL (7.4-10.4); Monocytes # 0.6 10^3/uL (0.2-0.9); Monocytes % 3.2 %; Neutrophils # 14.84 10^3/uL (1.8-7.7); Neutrophils % 81.6 %; Nucleated Red Blood Cells % 0.2 %; Platelet Count 237 10^3/cmm (157-399); Red Blood Count 3.38 10^6/uL (3.85-5.65); Red Cell Distribution Width 14.6 % (12.1-15.1); White Blood Count 18.19 10^3/uL (3.29-11.43)
[2024-11-22] MEDS: ondansetron 2 mg/ML SDV 2 mL 4 MG IVP (21:24)
[2024-11-22 21:25] VITALS: RESP 18; O2SAT 99
[2024-11-22] MEDS: morphine 4 mg/mL SDV 1 mL IVP ×2 (21:25→21:42)
[2024-11-22 21:26] VITALS: PULSE 114; RESP 18; O2SAT 97
[2024-11-22 21:41] LABS: INR 0.98 (0.8-1.2)
[2024-11-22 21:47] LABS: Alanine Aminotransferase 14 U/L (0-33); Albumin Level 2.8 g/dL (3.5-5.2); Alkaline Phosphatase 217 U/L (35-105); Anion Gap 16.2 (5-19); Aspartate Amino Transferase 15 U/L (0-32); Blood Urea Nitrogen 7 mg/dL (6-20); Calcium 8.3 mg/dL (8.5-10.5); Carbon Dioxide 21 mmol/L (22-29); Chloride 100 mmol/L (98-107); Creatinine Clr Calc Pharmacy 119.4985; Globulin 3.5 g/dL (1.3-4.6); Glomerular Filtration Rate 103.4 mL/min (90-130); Glucose 64 mg/dL (65-115); Osmolality Calculated 274 mOsm/kg (285-295); Potassium 3.2 mmol/L (3.5-5.1); Sodium 134 mmol/L (136-145); Total Bilirubin 0.9 mg/dL (0.15-1.2); Total Protein 6.3 g/dL (6.6-8.7)
--- NOTE | 2024-11-22 21:59 | W.ED.EXTPRO ---
HPI - Extremity Problem General: Chief complaint: Extremity Injury, Lower Stated complaint: RT Hip Pain Time Seen by Provider: 11/22/24 21:00 Source: patient and family Mode of arrival: EMS Limitations: no limitations History of Present Illness: Patient comes in via ambulance for right hip pain. Reports she was rolling or moving over and she felt a crack. Patient reports also she has some drainage from the wound. Patient reports the ordering box operator told her it might be infected. Related Data Home Medications ?Medication ?Instructions ?Recorded ?Confirmed rosuvastatin 20 mg tablet (Crestor) 20 mg PO QAM 09/04/19 11/10/24 omeprazole 40 mg capsule,delayed 40 mg PO QAM 09/05/19 11/10/24 release epinephrine 0.3 mg/0.3 mL See Rx Instructions .Route 11/01/19 11/10/24 injection, auto-injector (EpiPen .COMPLEX PRN Allergic Reaction 2-Carrington) glucagon HCl 1 mg solution for 1 mg SUBCUT Q20M PRN blood sugar 11/01/19 11/10/24 injection (Glucagon (HCl) ##0 Emergency Kit) insulin aspart U-100 100 unit/mL See Rx Instructions .Route .COMPLEX 11/01/19 11/10/24 (3 mL) subcutaneous pen (Novolog FlexPen U-100 Insulin aspart) albuterol sulfate 2.5 mg/3 mL 2.5 mg inhalation Q6H PRN 04/01/20 11/10/24 (0.083 %) solution for nebulization Shortness Of Breath aspirin 81 mg tablet,delayed 81 mg PO DAILY@0800 08/15/20 11/10/24 release melatonin 3 mg capsule 3 mg PO BEDTIME 09/04/20 11/10/24 apixaban 5 mg tablet (Eliquis) 5 mg PO BID 11/24/20 11/10/24 tamsulosin 0.4 mg capsule (Flomax) 0.4 mg PO BEDTIME 05/22/21 11/10/24 alprazolam 0.25 mg tablet 0.25 mg PO DAILY PRN anxiety 09/16/22 11/10/24 sertraline 100 mg tablet (Zoloft) 100 mg PO QAM 01/12/23 11/10/24 acetaminophen 500 mg tablet 1,000 mg PO Q12H PRN Pain 03/07/23 11/10/24 albuterol sulfate 90 mcg/actuation 2 puff inhalation BID PRN 03/07/23 11/10/24 aerosol inhaler (Ventolin HFA) Shortness Of Breath ergocalciferol (vitamin D2) 1,250 50,000 unit PO Q7D 03/07/23 11/10/24 mcg (50,000 unit) capsule (Vitamin D2) folic acid 1 mg tablet 1 mg PO QAM 03/07/23 11/10/24 guaifenesin 600 mg tablet, 600 mg PO Q12H PRN Congestion 03/07/23 11/10/24 extended release 12 hr (Mucinex) magnesium hydroxide 400 mg/5 mL 30 ml PO DAILY PRN Constipation 03/07/23 11/10/24 oral suspension (Milk of Magnesia) ropinirole 3 mg tablet 3 mg PO BEDTIME 03/07/23 11/10/24 oxycodone 10 mg tablet 10 mg PO Q4H PRN Pain 07/28/23 11/10/24 Previous Rx's ?Medication ?Instructions ?Recorded nitroglycerin 0.4 mg sublingual 0.4 mg sublingual Q5M PRN chest 09/09/19 tablet (Nitrostat) pain 30 days #25 tabs Knee Walker #1 ea 11/11/22 insulin glargine 100 unit/mL 50 unit (0.5 mL) SUBCUT DAILY@0800 03/10/23 subcutaneous solution #10 mL ipratropium 20 mcg-albuterol 100 1 puff inhalation Q6H PRN 04/25/23 mcg/actuation mist for inhalation Shortness Of Breath #4 grams (Combivent Respimat) diclofenac sodium 1 % topical gel 4 g topical QID #100 grams 07/28/23 (Voltaren Arthritis Pain) prednisone 5 mg tablet 5 mg PO DAILY PRN flares #60 tabs 03/20/24 prednisone 10 mg tablet See Rx Instructions PO DAILY joint 09/18/24 pain #30 tabs tofacitinib 5 mg tablet (Xeljanz) 5 mg PO BID #60 tabs 09/18/24 apremilast 30 mg tablet (Otezla) 30 mg PO BID #60 tabs 11/06/24 Allergies Allergy/AdvReac Type Severity Reaction Status Date / Time bee venom protein (honey bee) Allergy ALGY-Anaphy Verified 09/18/24 10:39 laxis topiramate (From Topamax) Allergy ADR-Halluci Verified 09/18/24 10:39 evie [facility] ED PFS: Medical History PVD (peripheral vascular disease) Tobacco abuse COPD (chronic obstructive pulmonary disease) Bronchitis Plaque psoriasis Immunization counseling High risk medication use Seropositive rheumatoid arthritis of multiple sites Closed fracture of right distal fibula Fall at home Closed fracture of right distal tibia Closed right ankle fracture Fracture of distal end of tibia with fibula Acute gout of right ankle Psoriasis Cigarette smoker motivated to quit Thrombocytopenia Rheumatoid arthritis Transaminitis Immunocompromised Chronic anticoagulation Portal vein thrombosis COVID-19 Syncope Seizures Onychodystrophy Rheumatoid arthritis Closed fracture of right distal fibula Emphysema/COPD Avulsion fracture of left ankle Essential hypertension Claudication Spondylosis of lumbar region without myelopathy or radiculopathy Long-term current use of opiate analgesic Pain, joint, multiple sites Osteoporosis Fibromyalgia Diabetes DDD (degenerative disc disease), cervical Cervical spondylosis Tobacco use disorder Surgical History Hx of right BKA S/P ANN-BSO S/P foot surgery Hx of section (~1989) Hx laparoscopic cholecystectomy H/O dilation and curettage Hx of hysterectomy Family History Mother Stroke Cancer SKIN CANCER Sister Stroke Other Diabetes Myocardial infarct Denies family history of Anesthesia complication Bleeding disorder Social History Smoking and tobacco/nicotine status: current every day tobacco/nicotine user cigarettes Years cigarettes smoked: 40 [ Other cigarette details: 10 cigarettes/day currently] Quit status (tobacco/nicotine): considering quitting Second hand smoke exposure: Yes Alcohol intake: former Substance/Drug Use: never Additional social history: Patient wants full code as discussed today 11/10/2024 but no prolonged CPR or life support Caregiver/support person: Yes Lives independently: Yes Household members: spouse Marital status: Current occupational status: disabled Pets and animals: Yes Do you think of yourself as: Straight/Heterosexual Current gender identity: Female Physical Exam Const: COMMON NORMALS: no acute distress, patient oriented x3 and alert Resp: COMMON NORMALS: normal respiratory effort, No use of accessory muscles and clear to auscultation bilaterally AUSCULTATION: clear to auscultation bilaterally Cardio: COMMON NORMALS: regular rate and regular rhythm RATE: regular rate RHYTHM: regular rhythm GI: COMMON NORMALS: Soft to palpation and non-tender PALPATION: Yes Soft to palpation Extremity: NARRATIVE EXTREMITY EXAM: Right BKA. Severe tenderness to any manipulation of the right hip. Pulse and sensation palpable distal to injury. Normal left lower extremity. Neuro: COMMON NORMALS: patient oriented x3 SENSORIUM/ORIENTATION: Yes alert Psych: COMMON NORMALS: mental status grossly normal and cooperative Skin: COMMON NORMALS: no rashes or lesions noted GENERAL SKIN EXAM: no rashes or lesions noted Course Reevaluation(s): Reevaluation #1: Discussed the case with Dr. Taylor of orthopedics. He reports that he will update his partner. Please admit the patient to the hospitalist service and Ortho will consult. Time: 22:02 Vital Signs: Vital signs: Vital Signs Temperature 98 F 11/22/24 20:27 Pulse Rate 104 H 11/23/24 01:02 Respiratory Rate 16 11/23/24 01:02 Blood Pressure 115/55 11/23/24 01:02 Pulse Oximetry 91 11/23/24 01:02 Oxygen Delivery Me thod Room Air 11/23/24 01:02 MDM - Extremity (Nontraumatic) Medical Decision Making Patient with postop complication of hardware displacement. It is a dislocation of the hip but the cup and ball of the replacement has come out of the joint. No opportunity for close reduction. Have case discussed the case with orthopedics. Will admit to the hospitalist. Medical Records I reviewed the patient's medical records. Lab Data I reviewed the patient's lab results. 11/22/24 21:15 11/22/24 21:15 Radiology Impressions Hip/Pelvis X-Ray 11/22/24 20:47 IMPRESSION: As above. Chest X-Ray 11/22/24 22:51 IMPRESSION: No acute cardiopulmonary process. Laboratory Results WBC 18.19 10^3/uL (3.29-11.43) H 11/22/24 21:15 RBC 3.38 10^6/uL (3.85-5.65) L 11/22/24 21:15 Hgb 9.70 g/dL (11.27-16.99) L 11/22/24 21:15 Hct 30.7 % (36-47) L 11/22/24 21:15 MCV 90.8 fl (85-98) 11/22/24 21:15 MCH 28.7 pg (27-33) 11/22/24 21:15 MCHC 31.6 g/dL (30-55) 11/22/24 21:15 RDW 14.6 % (12.1-15.1) 11/22/24 21:15 Plt Count 237 10^3/cmm (157-399) 11/22/24 21:15 MPV 10.2 fL (7.4-10.4) 11/22/24 21:15 Neut % (Auto) 81.6 % 11/22/24 21:15 Lymph % (Auto) 12.6 % 11/22/24 21:15 Latimer % (Auto) 3.2 % 11/22/24 21:15 Eos % (Auto) 0.9 % 11/22/24 21:15 Baso % (Auto) 0.2 % 11/22/24 21:15 Neut # (Auto) 14.84 10^3/uL (1.8-7.7) H 11/22/24 21:15 Lymph # (Auto) 2.3 10^3/uL (0.8-4.8) 11/22/24 21:15 Latimer # (Auto) 0.6 10^3/uL (0.2-0.9) 11/22/24 21:15 Eos # (Auto) 0.2 10^3/uL (0.0-0.8) 11/22/24 21:15 Baso # (Auto) 0.0 10^3/uL (0.0-0.1) 11/22/24 21:15 Nucleated RBC % (auto) 0.2 % 11/22/24 21:15 Nucleated RBCs # 0.0 /100WBC 11/22/24 21:15 PT 13.70 SECONDS (12.1-14.9) 11/22/24 21:15 INR 0.98 (0.8-1.2) 11/22/24 21:15 Sodium 134 mmol/L (136-145) L 11/22/24 21:15 Potassium 3.2 mmol/L (3.5-5.1) L 11/22/24 21:15 Chloride 100 mmol/L (98-107) 11/22/24 21:15 Carbon Dioxide 21 mmol/L (22-29) L 11/22/24 21:15 Anion Gap 16.2 (5-19) 11/22/24 21:15 BUN 7 mg/dL (6-20) 11/22/24 21:15 Creatinine 0.6 mg/dL (0.5-0.9) 11/22/24 21:15 GFR Calculation 103.4 mL/min (90-130) 11/22/24 21:15 Glucose 64 mg/dL (65-115) L 11/22/24 21:15 Calculated Osmolality 274 mOsm/kg (285-295) L 11/22/24 21:15 Calcium 8.3 mg/dL (8.5-10.5) L 11/22/24 21:15 Magnesium 1.9 mg/dL (1.7-2.3) 11/22/24 21:15 Total Bilirubin 0.9 mg/dL (0.15-1.2) 11/22/24 21:15 AST 15 U/L (0-32) 11/22/24 21:15 ALT 14 U/L (0-33) 11/22/24 21:15 Alkaline Phosphatase 217 U/L (35-105) H 11/22/24 21:15 Total Protein 6.3 g/dL (6.6-8.7) L 11/22/24 21:15 Albumin 2.8 g/dL (3.5-5.2) L 11/22/24 21:15 Globulin 3.5 g/dL (1.3-4.6) 11/22/24 21:15 XR interpretation done by ED provider, pending radiology final review ED provider radiology interpretation(s): Displacement of entire hardware of the right hip replacement. Discharge Plan Discharge Patient Disposition: Admitted As Inpatient Clinical Impression: Dislocation of internal right hip prosthesis, initial encounter, S/P hip replacement Condition: Stable Coding Level of Care Code ED Box Nailer for Chikis Toro
--- NOTE | 2024-11-22 22:30 | PM.HP ---
Providers/Chief Complaint Admitting Physician: Emily Pino MD Primary Care Provider: Nel Peacock MD Chief Complaint: RT Hip Pain History of Present Illness Erin Kelley is a 54 yo woman w/ 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 femoral neck fracture due to a mechanical fall on 11/10/2024 s/p R. hip replacement, Seropositive Rheumatoid Arthritis, Portal vein thrombosis, & IDDM2, who presented to the ED on 11/22/2024 w/ complaints that she had broken her R. hip. She states that she was just discharged from [facility]. This morning at 11am. She was sitting in bed and leaned over to get some clothes and she felt her hip pop out. Her nurse aide, who was in the room at the time the event happened, helped her get organized. Her called EMS, who brought her to the ED. She denies f/c chills prior to this incident but endorses fatigue and malaise prior to her hip dislocation. She denies visual disturbances, CP, palpitations, SOB, GI symptoms, symptoms, prior to her hip dislocation. In the ED, her vital signs were significant for tachycardia of greater than 100. She had a leukocytosis of 18. Her pelvic and hip xray showed a periprosthetic fracture of the proximal femoral stem of the arthroplasty component as well as superior dislocation of the acetabular component from the bony pelvis. Her CXR showed no acute cardiopulmonary processes. Orthopedic surgeon on-call was consulted by the ED Physician and the surgeon recommended admitting the patient. She is unable to tell me whether she took her medications earlier in the day. Also while admitting her, her O2 sat was between 88% and 92%. After she was given Dilaudid 0.5mg IVP x 1 for pain, and her O2 sat decreased to 82%, so she was placed on 2L NC. Review of Systems Const: Reports: fatigue and malaise; Denies: fever(s) or chills Eyes: Denies: change in vision ENMT: Reports: other (no dysphagia); Denies: odynophagia, ear or mastoid pain, ear discharge, nasal discharge or nasal congestion Card: Denies: chest pain, palpitations, lightheadedness or syncope Resp: Denies: dyspnea, non-productive cough or wheezing GI: Reports: diarrhea and constipation; Denies: abdominal pain, nausea, vomiting, hematochezia or melena : Reports: hematuria (hematuria 6 months ago); Denies: difficulty voiding or dysuria Musc: Reports: joint pain (chronic knees, hips, elbows, and throat) and other (chronic myalgias) Skin/Breast: Denies: rash or new lesions Neuro: Denies: headache(s) or dizziness Psych: Reports: anxiety; Denies: suicidal ideation or homicidal ideation Endo: Denies: cold intolerance or heat intolerance Jewel/Lymph: Reports: easy bruising and easy bleeding All/Imm: Denies: seasonal rhinorrhea Medications/Allergies Home Medications ?Medication ?Instructions ?Recorded ?Confirmed ?Last Taken ?Type rosuvastatin 20 mg tablet (Crestor) 20 mg PO QAM 09/04/19 11/10/24 11/10/24 History omeprazole 40 mg capsule,delayed 40 mg PO QAM 09/05/19 11/10/24 11/10/24 History release nitroglycerin 0.4 mg sublingual 0.4 mg sublingual Q5M PRN chest 09/09/19 11/10/24 Unknown Rx tablet (Nitrostat) pain 30 days #25 tabs epinephrine 0.3 mg/0.3 mL See Rx Instructions .Route 11/01/19 11/10/24 Unknown History injection, auto-injector (EpiPen .COMPLEX PRN Allergic Reaction 2-Carrington) glucagon HCl 1 mg solution for 1 mg SUBCUT Q20M PRN blood sugar 11/01/19 11/10/24 Unknown History injection (Glucagon (HCl) ##0 Emergency Kit) insulin aspart U-100 100 unit/mL See Rx Instructions .Route .COMPLEX 11/01/19 11/10/24 11/10/24 History (3 mL) subcutaneous pen (Novolog FlexPen U-100 Insulin aspart) albuterol sulfate 2.5 mg/3 mL 2.5 mg inhalation Q6H PRN 04/01/20 11/10/24 12/14/22 History (0.083 %) solution for nebulization Shortness Of Breath aspirin 81 mg tablet,delayed 81 mg PO DAILY@0800 08/15/20 11/10/24 11/10/24 History release melatonin 3 mg capsule 3 mg PO BEDTIME 09/04/20 11/10/24 11/10/24 History apixaban 5 mg tablet (Eliquis) 5 mg PO BID 11/24/20 11/10/24 11/08/24 History tamsulosin 0.4 mg capsule (Flomax) 0.4 mg PO BEDTIME 05/22/21 11/10/24 11/09/24 History alprazolam 0.25 mg tablet 0.25 mg PO DAILY PRN anxiety 09/16/22 11/10/24 01/12/23 History Knee Walker #1 ea 11/11/22 11/10/24 Unknown Rx sertraline 100 mg tablet (Zoloft) 100 mg PO QAM 01/12/23 11/10/24 11/09/24 History acetaminophen 500 mg tablet 1,000 mg PO Q12H PRN Pain 03/07/23 11/10/24 Unknown History albuterol sulfate 90 mcg/actuation 2 puff inhalation BID PRN 03/07/23 11/10/24 Unknown History aerosol inhaler (Ventolin HFA) Shortness Of Breath ergocalciferol (vitamin D2) 1,250 50,000 unit PO Q7D 03/07/23 11/10/24 11/10/24 History mcg (50,000 unit) capsule (Vitamin D2) folic acid 1 mg tablet 1 mg PO QAM 03/07/23 11/10/24 11/10/24 History guaifenesin 600 mg tablet, 600 mg PO Q12H PRN Congestion 03/07/23 11/10/24 Unknown History extended release 12 hr (Mucinex) magnesium hydroxide 400 mg/5 mL 30 ml PO DAILY PRN Constipation 03/07/23 11/10/24 Unknown History oral suspension (Milk of Magnesia) ropinirole 3 mg tablet 3 mg PO BEDTIME 03/07/23 11/10/24 11/10/24 History insulin glargine 100 unit/mL 50 unit (0.5 mL) SUBCUT DAILY@0800 03/10/23 11/10/24 11/10/24 Rx subcutaneous solution #10 mL ipratropium 20 mcg-albuterol 100 1 puff inhalation Q6H PRN 04/25/23 11/10/24 Unknown Rx mcg/actuation mist for inhalation Shortness Of Breath #4 grams (Combivent Respimat) diclofenac sodium 1 % topical gel 4 g topical QID #100 grams 07/28/23 11/10/24 11/10/24 Rx (Voltaren Arthritis Pain) oxycodone 10 mg tablet 10 mg PO Q4H PRN Pain 07/28/23 11/10/24 11/10/24 History prednisone 5 mg tablet 5 mg PO DAILY PRN flares #60 tabs 03/20/24 11/10/24 Unknown Rx prednisone 10 mg tablet See Rx Instructions PO DAILY joint 09/18/24 11/10/24 Unknown Rx pain #30 tabs tofacitinib 5 mg tablet (Xeljanz) 5 mg PO BID #60 tabs 09/18/24 11/10/24 11/10/24 Rx apremilast 30 mg tablet (Otezla) 30 mg PO BID #60 tabs 11/06/24 11/10/24 11/10/24 Rx Allergies Allergy/AdvReac Type Severity Reaction Status Date / Time bee venom protein (honey bee) Allergy ALGY-Anaphy Verified 09/18/24 10:39 laxis topiramate (From Topamax) Allergy ADR-Halluci Verified 09/18/24 10:39 nating PFS Acute PFSH: Medical History PVD (peripheral vascular disease) Tobacco abuse COPD (chronic obstructive pulmonary disease) Bronchitis Plaque psoriasis Immunization counseling High risk medication use Seropositive rheumatoid arthritis of multiple sites Closed fracture of right distal fibula Fall at home Closed fracture of right distal tibia Closed right ankle fracture Fracture of distal end of tibia with fibula Acute gout of right ankle Psoriasis Cigarette smoker motivated to quit Thrombocytopenia Rheumatoid arthritis Transaminitis Immunocompromised Chronic anticoagulation Portal vein thrombosis COVID-19 Syncope Seizures Onychodystrophy Rheumatoid arthritis Closed fracture of right distal fibula Emphysema/COPD Avulsion fracture of left ankle Essential hypertension Claudication Spondylosis of lumbar region without myelopathy or radiculopathy Long-term current use of opiate analgesic Pain, joint, multiple sites Osteoporosis Fibromyalgia Diabetes DDD (degenerative disc disease), cervical Cervical spondylosis Tobacco use disorder Surgical History Hx of right BKA S/P ANN-BSO S/P foot surgery Hx of section (~1989) Hx laparoscopic cholecystectomy H/O dilation and curettage Hx of hysterectomy Family History Mother Stroke Cancer SKIN CANCER Sister Stroke Other Diabetes Myocardial infarct Denies family history of Anesthesia complication Bleeding disorder Social History Smoking and tobacco/nicotine status: current every day tobacco/nicotine user cigarettes Years cigarettes smoked: 40 [ Other cigarette details: 10 cigarettes/day currently] Quit status (tobacco/nicotine): considering quitting Second hand smoke exposure: Yes Alcohol intake: former Substance/Drug Use: never Additional social history: Patient wants full code as discussed today 11/10/2024 but no prolonged CPR or life support Caregiver/support person: Yes Lives independently: Yes Household members: spouse Marital status: Current occupational status: disabled Pets and animals: Yes Do you think of yourself as: Straight/Heterosexual Current gender identity: Female Vitals/I&O/Wt Last Vital Signs Temp 98 F 11/22/24 20:27 Pulse 114 H 11/22/24 21:26 Resp 18 11/22/24 21:26 BP 145/73 11/22/24 20:27 Pulse Ox 97 11/22/24 21:26 O2 Del Method Room Air 11/22/24 21:26 11/22/24 11/22/24 11/22/24 06:59 14:59 22:59 Intake Total 0 / 0 Balance 0 / 0 Weight last 48 hrs Weight 95.254 kg Physical Exam Const: GENERAL APPEARANCE: cooperative and comfortable ORIENTATION/CONSCIOUSNESS: Yes awake, Yes oriented to person, Yes oriented to place and Yes oriented to time HENMT: HEAD & SCALP: normocephalic and atraumatic NOSE: Normal external nose present EXTERNAL EAR: Yes external ears normal MOUTH: Normal oral and palatal mucosa present THROAT: posterior oropharynx normal Eye: CONJUNCTIVA: Yes conjunctivae normal PUPIL: Yes Equal, round and reactive pupils present EOM: No EOM abnormal Neck/C-Spine: THYROID: Thyroid normal CAROTIDS: No bruit CERVICAL SPINE: Yes cervical ROM normal Lymph: OTHER: no cervical or supraclavicular LAD Resp: OTHER: CTAB with no wheezes, rales or rhonchi anteriorly Cardio: OTHER: RRR, no m/r/g or clicks GI: OTHER: BS+, NT, ND, no rigidity, no guarding, no rebound tenderness, no hepatosplenomegaly. Extremity: NARRATIVE EXTREMITY EXAM: R. BKA. R. Hip tenderness. Neuro: CRANIAL NERVES: Yes CN normal except as noted SPEECH: speech normal SENSORY EXAM: No sensory level loss detected MOTOR EXAM: 5/5 motor strength present throughout Psych: APPEARANCE: Yes grossly normal ATTITUDE: Yes calm and Yes engaged ACTIVITY/MOTOR BEHAVIOR: Yes appropriate eye contact SPEECH: Yes normal speech MOOD & AFFECT: Yes euthymic mood THOUGHT PROCESS: Normal thought process present THOUGHT CONTENT: Yes Normal thought content present ATTENTION/CONCENTRATION: Yes attention grossly intact Skin: GENERAL SKIN EXAM: no rashes or lesions noted Data 11/22/24 21:15 11/22/24 21:15 A&P Assessment and plan (1) Fracture of femoral neck, right, closed: (2) Dislocation of internal right hip prosthesis, initial encounter: Plan Erin Kelley is a 54 yo woman w/ 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 femoral neck fracture due to a mechanical fall on 11/10/2024 s/p R. hip replacement, Seropositive Rheumatoid Arthritis, Portal vein thrombosis, & IDDM2, who presented to the ED on 11/22/2024 w/ complaints that she had broken her R. hip. In the ED, her vital signs were significant for tachycardia of greater than 100. She had a leukocytosis of 18. Her pelvic and hip xray showed a periprosthetic fracture of the proximal femoral stem of the arthroplasty component as well as superior dislocation of the acetabular component from the bony pelvis. Her CXR showed no acute cardiopulmonary processes. Orthopedic surgeon on-call was consulted by the ED Physician and the surgeon recommended admitting the patient. #Periprosthetic fracture of the R. proximal femoral stem after R. hip arthroplasty 11/12/2024 #R. hip dislocation after R. hip arthroplasty 11/12/2024 - Orthopedic surgery consulted - Pain control. - It is unclear whether the patient took Apixaban on the morning that she presented. Will need to find out from her . Hold Apixaban - Resume vitamin D #SIRS: Unclear reason. Ordered BCx, UA/UCx. Will empirically give antibiotics given immunopromised state. Ordered 1L NS+40mEQ of K over 4hrs and another 1L NS at 100cc/hr #Hypokalemia: gave a total of 80mEQ x 1. #IDDM2: Ordered low dose sliding scale insulin in the AM and high dose SSI at night #Portal vein thrombosis - on Apixaban - hold. Full dose Lovenox ordered #COPD: Not in acute exacerbation. Ordered duonebs. #Seropositive RA: On Tofacitinib. Find out whether she is on Prednisone daily. If she is, restart it. #Anxiety d/o: Resume home meds. xanax prn and sertraline. #RLS: Resumed Home med. DVT ppx: Lovenox GI ppx: On PPI PDMP PDMP Reviewed: Not Reviewed Attestations Medical Necessity Statement*: The patient will need to be hospitalized for greater than 2 midnights for her post-operative hardware displacment resulting in a Right hip dislocation & R. periprosthe Coding Level of Care Code 55690 High Time for a total of 80 minutes, includes reviewing past or interval history, examining/interviewing patient, placing orders, counseling patient/family/other support, updating patient/family/other support, discussing plan of care with staff, communicating with other healthcare providers, documenting encounter and coordinating care Diagnoses Closed fracture of neck of right femur, initial encounter S72.001A Encounter type: initial encounter Dislocation of internal right hip prosthesis, initial encounter T84.020A
[2024-11-22 22:44] VITALS: BP 89/69; PULSE 110; O2SAT 91
--- NOTE | 2024-11-22 22:51 | XRR_ITS ---
PROCEDURE INFORMATION: Exam: XR Chest Exam date and time: 11/22/2024 10:57 PM Age: 54 years old Clinical indication: Shortness of breath and wheezing; Emphysema; Pre op clearance; Dislocated RT hip bernice-post op day 10 TECHNIQUE: Imaging protocol: Radiologic exam of the chest. Views: 1 view. COMPARISON: CT angio chest PE protcl [id number] 11/13/2024 7:08 AM FINDINGS: Lungs: There are right mid lung zone and right lower lung zone chronic fibrotic changes. There is no evidence of focal pulmonary consolidation. The lungs are hyperinflated, consistent with underlying small airways disease. Pleural spaces: Unremarkable. No pleural effusion. No pneumothorax. Heart/Mediastinum: Unremarkable. No cardiomegaly. Bones/joints: Chronic fracture deformity of the right 5th, 6th and 7th ribs. XR/XR chest 1V portable [id number] IMPRESSION: No acute cardiopulmonary process.
[2024-11-22 23:19] LABS: Magnesium 1.9 mg/dL (1.7-2.3)
[2024-11-22 23:25] VITALS: BP 113/63; PULSE 117; O2SAT 90
[2024-11-23] VITALS (22 sets, daily range): BP systolic 108–130; BP diastolic 55–94; PULSE 79–108; RESP 16–20; TEMP 36.6–37.3; O2SAT 91–96; BMI 34.0
[2024-11-23] MEDS: HYDROmorphone 0.5 MG/0.5 ML INJ IVP (00:55)
[2024-11-23] MEDS: nicotine 7 mg Patch 1 PATCH TRANSDERMA (01:17)
[2024-11-23 02:22] LABS: Glucose Point of Care 118 mg/dL (70-110)
[2024-11-23] MEDS: potassium chloride ER 20 mEq Tablet 40 MEQ PO (02:55)
[2024-11-23] MEDS: sodium chlor 0.9% + KCl 40 mEq 40 MEQ/1,000 ML BAG 250 MEQ IV (02:55)
[2024-11-23] MEDS: enoxaparin 100 mg/mL Syringe SUBCUT ×2 (02:55→13:49)
[2024-11-23] MEDS: pantoprazole 40 mg SDV IVP (02:55)
[2024-11-23] MEDS: oxyCODONE-APAP 5-325 mg Tablet 1 TAB PO ×3 (03:16→20:30)
[2024-11-23 04:02] LABS: Bilirubin Urine Negative (Negative); Blood Urine Negative (Negative); Glucose Urine UA Negative (Normal); Ketones Urine Negative (Negative); Leukocyte Esterase Urine Trace (Negative); Nitrate Urine Negative (Negative); Protein Urine Negative (Negative); Specific Gravity, Urine 1.006 (1.005-1.030); Urine Appearance Clear (CLEAR); Urine Color Yellow (Yellow)
[2024-11-23 04:07] LABS: Add Urine Microscopic? YES
[2024-11-23 04:31] LABS: Bacteria Urine 1+ /hpf; Squamous Epithelial Cell Urine 0-4 /hpf (0-5); UA Manual Slide Review YES; UA Slide Review UA Slide Review Perf; WBC Urine 0-4 /hpf (0-5)
[2024-11-23 04:32] LABS: Add Urine Culture? Yes; Hyaline Casts Urine 0-4 /lpf
[2024-11-23 05:39] LABS: Basophils % 0.2 %; Eosinophils # 0.2 10^3/uL (0.0-0.8); Eosinophils % 1.1 %; Hematocrit 24.3 % (36-47); Lymphocytes # 2.3 10^3/uL (0.8-4.8); Lymphocytes % 14.2 %; Mean Corpuscular HGB Conc 30.5 g/dL (30-55); Mean Corpuscular Hemoglobin 28.9 pg (27-33); Mean Corpuscular Volume 94.9 fl (85-98); Mean Platelet Volume 10.9 fL (7.4-10.4); Monocytes # 0.7 10^3/uL (0.2-0.9); Monocytes % 4.4 %; Neutrophils # 12.87 10^3/uL (1.8-7.7); Neutrophils % 79.3 %; Nucleated Red Blood Cells % 0.2 %; Platelet Count 208 10^3/cmm (157-399); Red Blood Count 2.56 10^6/uL (3.85-5.65); Red Cell Distribution Width 14.6 % (12.1-15.1); White Blood Count 16.24 10^3/uL (3.29-11.43)
[2024-11-23] MEDS: piperacillin-tazobactam 3.375 GM in sodium chloride 0.9% (plus) 50 ML IV ×3 (05:49→20:29)
[2024-11-23 05:56] LABS: INR 1.09 (0.8-1.2)
[2024-11-23 05:57] LABS: Partial Thromboplastin Time 39.9 SECONDS (23.9-36.7)
[2024-11-23 06:00] LABS: Alanine Aminotransferase 29 U/L (0-33); Albumin Level 2.2 g/dL (3.5-5.2); Alkaline Phosphatase 292 U/L (35-105); Anion Gap 15.6 (5-19); Aspartate Amino Transferase 84 U/L (0-32); Blood Urea Nitrogen 6 mg/dL (6-20); Calcium 7.6 mg/dL (8.5-10.5); Carbon Dioxide 20 mmol/L (22-29); Chloride 102 mmol/L (98-107); Creatinine Clr Calc Pharmacy 118.1796; Globulin 3.1 g/dL (1.3-4.6); Glomerular Filtration Rate 103.4 mL/min (90-130); Osmolality Calculated 272 mOsm/kg (285-295); Potassium 3.6 mmol/L (3.5-5.1); Sodium 134 mmol/L (136-145); Total Bilirubin 0.9 mg/dL (0.15-1.2); Total Protein 5.3 g/dL (6.6-8.7)
[2024-11-23 06:09] LABS: Glucose 38 mg/dL (65-115)
[2024-11-23 06:14] LABS: Glucose Point of Care 42 mg/dL (70-110)
[2024-11-23] MEDS: dextrose 10% 125 ML 750 ML IV ×2 (06:19→06:30)
--- NOTE | 2024-11-23 06:19 | PC.NURSE ---
Addendum entered by Lachelle Brown RN 11/23/24 06:41: Dr. Van at bedside with this nurse and gave orders to administer the remaining 125ml bag of 10% Dextrose and recheck blood glucose in 15 minutes. Patient is alert and oriented x4 at this time. Original Note: Laboratory called the floor and informed ROGER Cruz that patient's blood glucose was 38. This nurse at bedside and rechecked patients glucose via glucometer and resulted 42. Patient is drowsy, but oriented to name, date of , and place and presents clammy and flush in the face. Dr. Van-Lopezeke on the unit at this time and this nurse informed her of patient's glucose. Hypoglycemic protocol initiated. 10% dextrose bolus hung by this nurse per doctor's order.
[2024-11-23 06:30] LABS: Reticulocyte % 6.1 % (0.5-2.0)
[2024-11-23 07:03] LABS: Ferritin 133 ng/mL (15-150); Iron 16 ug/dL (37-145); Lactate Dehydrogenase 413 U/L (135-214); Percent Saturation 8.3 % (20-50); Total Iron Binding Capacity 191 mcg/dl; Unsaturated Iron Binding 175 ug/dL (112-347)
[2024-11-23 07:17] LABS: Vitamin B12 1124 pg/mL (232-1245)
[2024-11-23 07:21] LABS: Glucose Point of Care 167 mg/dL (70-110)
[2024-11-23 08:09] LABS: Folate Level > 20.0 ng/mL (4.8-37.3)
[2024-11-23] MEDS: ipratropium-albuterol 3 mL Neb INHALATION ×4 (08:15→20:48)
--- NOTE | 2024-11-23 08:36 | PC.NURSE ---
Patient's blood sugar was 38 this morning and after D10 was given patient's blood sugar is now only 167 will hold 2 units of insulin at this time.
[2024-11-23] MEDS: sodium chloride 0.9% 1,000 ML 75 ML IV (09:07)
[2024-11-23] MEDS: docusate sodium 100 mg Capsule 200 MG PO (09:09)
[2024-11-23] MEDS: sennosides 8.6 mg Tablet 17.2 MG PO (09:09)
[2024-11-23 09:44] LABS: Glucose Point of Care 336 mg/dL (70-110)
--- NOTE | 2024-11-23 09:50 | PC.NURSE ---
Dr. Wang stated to do Accu checks Q4 Hours instead of Q2 Hour
--- NOTE | 2024-11-23 10:07 | P.CONIM_ITS ---
Providers/Reason For Consult 2 Consulting Physician/Specialty*: Hospitalist Reason for Consult*: Right hip dislocation Attending Physician: Georgia Joseph MD Primary Care Provider: Nel Peacock MD History of Present Illness History of Present Illness Erin Kelley is a 54 year old female who is seen in the ER for right hip dislocation. It was reported to me that it was a total hip arthroplasty in the And the head were completely dislocated from the acetabulum. However in reality this was a hemiarthroplasty. Saw the patient in the morning she is already eaten breakfast. She states that she was just discharged from [facility]. This morning at 11am. She was sitting in bed and leaned over to get some clothes and she felt her hip pop out. Her nurse aide, who was in the room at the time the event happened, helped her get organized. Her called EMS, who brought her to the ED. She denies f/c chills prior to this incident but endorses fatigue and malaise prior to her hip dislocation. Review of Systems 2 Const: Reports: fatigue and malaise; Denies: fever(s) or chills Eyes: Denies: change in vision ENMT: Reports: other (no dysphagia); Denies: odynophagia, ear or mastoid pain, ear discharge, nasal discharge or nasal congestion Card: Denies: chest pain, palpitations, lightheadedness or syncope Resp: Denies: dyspnea, non-productive cough or wheezing GI: Reports: diarrhea and constipation; Denies: abdominal pain, nausea, vomiting, hematochezia or melena : Reports: hematuria (hematuria 6 months ago); Denies: difficulty voiding or dysuria Musc: Reports: joint pain (chronic knees, hips, elbows, and throat) and other (chronic myalgias) Skin/Breast: Denies: rash or new lesions Neuro: Denies: headache(s) or dizziness Psych: Reports: anxiety; Denies: suicidal ideation or homicidal ideation Endo: Denies: cold intolerance or heat intolerance Jewel/Lymph: Reports: easy bruising and easy bleeding All/Imm: Denies: seasonal rhinorrhea Medications/Allergies Home Medications ?Medication ?Instructions ?Recorded ?Confirmed ?Last Taken ?Type rosuvastatin 20 mg tablet (Crestor) 20 mg PO QAM 09/0411/10/24 11/10/24 History omeprazole 40 mg capsule,delayed 40 mg PO QAM 09/05/19 11/10/24 11/10/24 History release nitroglycerin 0.4 mg sublingual 0.4 mg sublingual Q5M PRN chest 09/09/19 11/10/24 Unknown Rx tablet (Nitrostat) pain 30 days #25 tabs epinephrine 0.3 mg/0.3 mL See Rx Instructions .Route 0 11/01/19 11/10/24 Unknown History injection, auto-injector (EpiPen .COMPLEX PRN Allergic Reaction 2-Carrington) glucagon HCl 1 mg solution for 1 mg SUBCUT Q20M PRN bl ood sugar 11/01/19 11/10/24 Unknown History injection (Glucagon (HCl) ##0 Emergency Kit) insulin aspart U-100 100 unit/mL See Rx Instructions . Route .COMPLEX 11/01/19 11/10/24 11/10/24 History (3 mL) subcutaneous pen (Novolog FlexPen U-100 Insulin aspart) albuterol sulfate 2.5 mg/3 mL 2.5 mg inhalation Q6H TX N 04/01/20 11/10/24 12/14/22 History (0.083 %) solution for nebulization Shortness Of Breat h aspirin 81 mg tablet,delayed 81 mg PO DAILY@0800 08/1511/10/24 11/10/24 History release melatonin 3 mg capsule 3 mg PO BEDTIME 09/04/2011/0111/10/24 History apixaban 5 mg tablet (Eliquis) 5 mg PO BID 11/24/2011/08/24 History tamsulosin 0.4 mg capsule (Flomax) 0.4 mg PO BEDTIME 1 07/22/20 11/10/24 11/09/24 History alprazolam 0.25 mg tablet 0.25 mg PO DAILY PRN anxiety 09/16/22 11/10/24 01/12/23 History Knee Walker #1 ea 11/11/22 11/10/24 Unkn own Rx sertraline 100 mg tablet (Zoloft) 100 mg PO QAM 11/10/24 11/09/24 History acetaminophen 500 mg tablet 1,000 mg PO Q12H PRN Pain 03/07/23 11/10/24 Unknown History albuterol sulfate 90 mcg/actuation 2 puff inhalation B ID PRN 03/07/23 11/10/24 Unknown History aerosol inhaler (Ventolin HFA) Shortness Of Breath ergocalciferol (vitamin D2) 1,250 50,000 unit PO Q7D 0 03/07/23 11/10/24 11/10/24 History mcg (50,000 unit) capsule (Vitamin D2) folic acid 1 mg tablet 1 mg PO QAM 03/07/23 5 11/10/24 History guaifenesin 600 mg tablet, 600 mg PO Q12H PRN [place] on 03/07/23 11/10/24 Unknown History extended release 12 hr (Mucinex) magnesium hydroxide 400 mg/5 mL 30 ml PO DAILY PRN Con stipation 03/07/23 11/10/24 Unknown History oral suspension (Milk of Magnesia) ropinirole 3 mg tablet 3 mg PO BEDTIME 03/07/2311/0111/10/24 History insulin glargine 100 unit/mL 50 unit (0.5 mL) SUBCUT D AILY@0800 03/10/23 11/10/24 11/10/24 Rx subcutaneous solution #10 mL ipratropium 20 mcg-albuterol 100 1 puff inhalation Q6H PRN 04/25/23 11/10/24 Unknown Rx mcg/actuation mist for inhalation Shortness Of Breath #4 grams (Combivent Respimat) diclofenac sodium 1 % topical gel 4 g topical QID #100 grams 07/28/23 11/10/24 11/10/24 Rx (Voltaren Arthritis Pain) oxycodone 10 mg tablet 10 mg PO Q4H PRN Pain 11/10/24 11/10/24 History prednisone 5 mg tablet 5 mg PO DAILY PRN flares #60 tabs 03/20/24 11/10/24 Unknown Rx prednisone 10 mg tablet See Rx Instructions PO DAILY joint 09/18/24 11/10/24 Unknown Rx pain #30 tabs tofacitinib 5 mg tablet (Xeljanz) 5 mg PO BID #60 tabs 09/18/24 11/10/24 11/10/24 Rx apremilast 30 mg tablet (Otezla) 30 mg PO BID #60 tabs 11/06/24 11/10/24 11/10/24 Rx Allergies Allergy/AdvReac Type Severity Reaction Status Date / Time bee venom protein (honey bee) Allergy ALGY-Anaphy Verified 09/18/24 10:39 laxis topiramate (From Topamax) Allergy ADR-Halluci Verified 09/18/24 10:39 nating Current Medications Generic Name Dose Route Start Last Admin Trade Name Freq PRN Reason Stop Dose Admin Albuterol/Ipratropium 3 ml 11/23/24 08:00 11/23/24 08:15 Ipratropium-Albuterol 3 Ml Neb INHALATION 3 ml QID.RESPIRATORY PHONG Administration Docusate Sodium 200 mg 11/23/24 09:00 11/23/24 09:09 Docusate Sodium 100 Mg Capsule PO 200 mg DAILY PHONG Administration Enoxaparin Sodium 100 mg 11/23/24 02:30 11/23/24 02:55 Enoxaparin 100 Mg/Ml Syringe SUBCUT 100 mg Q12H PHONG Administration Sodium Chloride 1,000 mls @ 75 mls/hr 11/23/24 08:00 11/23/24 09:07 Sodium Chloride 0.9% IV 75 mls/hr .[id number] PHONG Administration Piperacillin Sod/Tazobactam 50 mls @ 12.5 mls/hr 11/23/24 05:00 11/23/24 05:49 Sod 3.375 gm/ Sodium Chloride IV 12.5 mls/hr Q8H PHONG Administration Protocol Insulin Human Lispro 0 unit 11/23/24 08:00 11/23/24 09:06 Insulin Lispro 100 Unit/1 Ml SUBCUT Not Given TIDWM PHONG Protocol Oxycodone/Acetaminophen 1 tab 11/23/24 02:40 11/23/24 09:15 Oxycodone-Apap 5-325 Mg Tablet PO 1 tab Q4H PRN Administration MODERATE PAIN Senna 17.2 mg 11/23/24 09:00 11/23/24 09:09 Sennosides 8.6 Mg Tablet PO 17.2 mg DAILY PHONG Administration PFSH Acute 2 PFSH: Medical History PVD (peripheral vascular disease) Tobacco abuse COPD (chronic obstructive pulmonary disease) Bronchitis Plaque psoriasis Immunization counseling High risk medication use Seropositive rheumatoid arthritis of multiple sites Closed fracture of right distal fibula Fall at home Closed fracture of right distal tibia Closed right ankle fracture Fracture of distal end of tibia with fibula Acute gout of right ankle Psoriasis Cigarette smoker motivated to quit Thrombocytopenia Rheumatoid arthritis Transaminitis Immunocompromised Chronic anticoagulation Portal vein thrombosis COVID-19 Syncope Seizures Onychodystrophy Rheumatoid arthritis Closed fracture of right distal fibula Emphysema/COPD Avulsion fracture of left ankle Essential hypertension Claudication Spondylosis of lumbar region without myelopathy or radiculopathy Long-term current use of opiate analgesic Pain, joint, multiple sites Osteoporosis Fibromyalgia Diabetes DDD (degenerative disc disease), cervical Cervical spondylosis Tobacco use disorder Surgical History Hx of right BKA S/P ANN-BSO S/P foot surgery Hx of section (~1989) Hx laparoscopic cholecystectomy H/O dilation and curettage Hx of hysterectomy Family History Mother Stroke Cancer SKIN CANCER Sister Stroke Other Diabetes Myocardial infarct Denies family history of Anesthesia complication Bleeding disorder Social History Smoking and tobacco/nicotine status: current every day tobacco/nicotine user cigarettes Years cigarettes smoked: 40 [ Other cigarette details: 10 cigarettes/day currently] Quit status (tobacco/nicotine): considering quitting Second hand smoke exposure: Yes Alcohol intake: former Substance/Drug Use: never Additional social history: Patient wants full code as discussed today 11/10/2024 but no prolonged CPR or life support Caregiver/support person: Yes Lives independently: Yes Household members: spouse Marital status: Current occupational status: disabled Pets and animals: Yes Do you think of yourself as: Straight/Heterosexual Current gender identity: Female Vitals/I&O/Wt Last Vital Signs Temp 98.1 F 11/23/24 07:34 Pulse 86 11/23/24 08:21 Resp 16 11/23/24 09:15 BP 113/66 11/23/24 07:34 Pulse Ox 95 11/23/24 09:15 O2 Del Method Room Air 11/23/24 08:21 O2 Flow Rate 1.5 11/23/24 08:17 11/22/24 11/23/24 11/23/24 22:59 06:59 14:59 Intake Total 0 / 0 490 / 490 1000 / 1000 Output Total 1220 / 1220 Balance 0 / 0 -730 / -730 1000 / 1000 Weight last 48 hrs Weight 205 lb 9.6 oz Weight 204 lb 8 oz Weight 210 lb Physical Exam 2 Narrative: Alert and oriented x 3 Head is normocephalic atraumatic Respirations are intact No evidence of any rashes or infection Right below the knee amputation Urinary Catheter Management: Dent: Cath Placed During This Visit: yes Reason for Continuing Indwelling Catheter: Other Urinary Catheter Date of Insertion: 11/23/24 Urinary Catheter Time of Insertion: 03:58 Data 11/23/24 04:18 11/23/24 04:18 Micro: Microbiology 11/23/24 04:15 Blood Culture - Preliminary Blood SPECIMEN COLLECTED 11/23/24 04:18 Blood Culture - Preliminary Blood SPECIMEN COLLECTED A&P Assessment and plan (1) S/P hip replacement: Hip dislocation N.p.o. after midnight Plan OR for close reduction tomorrow PDMP PDMP Reviewed: Not Reviewed Consult Attestations 2 Medical Necessity Statement: Per primary service Coding Level of Care Code Acute Code for Chg Fwd Diagnoses Status post right hip replacement Z96.641 Laterality: right
[2024-11-23 11:31] LABS: Glucose Point of Care 306 mg/dL (70-110)
[2024-11-23] MEDS: insulin lispro 100 unit/1 mL SUBCUT ×2 (12:27→17:38)
--- NOTE | 2024-11-23 13:17 | PC.NURSE ---
Dr. Joseph gave verbal orders to give Cyclobenzoprine 10 mg TID PRN
[2024-11-23] MEDS: cyclobenzaprine 10 mg Tablet PO ×2 (13:49→20:31)
--- NOTE | 2024-11-23 16:30 | P.PN_ITS ---
Subjective 2 Subjective: Patient was hypoglycemic this morning with a blood sugar dropped to 38. Sleeping comfortably this morning. Hemoglobin at 7.4. Medications: Reviewed: Yes Vitals/I&O/Wt Last Vital Signs Temp 97.9 F 11/23/24 15:33 Pulse 80 11/23/24 15:37 Resp 16 11/23/24 15:37 BP 109/67 11/23/24 15:33 Pulse Ox 91 11/23/24 15:37 O2 Del Method Room Air 11/23/24 15:37 O2 Flow Rate 1 11/23/24 11:45 11/23/24 11/23/24 11/23/24 06:59 14:59 22:59 Intake Total 490 / 490 1530 / 1530 Output Total 1220 / 1220 1000 / 1000 Balance -730 / -730 530 / 530 Weight last 48 hrs Weight 93.259 kg Weight 92.76 kg Weight 95.254 kg Physical Exam 2 Narrative: General: No acute distress, AO x3 HEENT: PERRLA, pupils bilaterally equal and reactive, pallors not present Chest: Normal vesicular breath sounds, no added sounds, equal good air entry bilaterally CVS: S1-S2 regular, no murmurs, no tachycardia, no gallops, no rubs Abdomen: Soft, nontender, no organomegaly, bowel sounds present Neuro: No focal deficits, no facial deformity, AO x3, power 5/5 in all limbs Urinary Catheter Management: Dent: Cath Placed During This Visit: yes Reason for Continuing Indwelling Catheter: Other Urinary Catheter Date of Insertion: 11/23/24 Urinary Catheter Time of Insertion: 03:58 Data 11/23/24 04:18 11/23/24 04:18 Micro: Microbiology 11/23/24 04:15 Blood Culture - Preliminary Blood SPECIMEN COLLECTED 11/23/24 04:18 Blood Culture - Preliminary Blood SPECIMEN COLLECTED A&P Assessment and plan (1) Fracture of femoral neck, right, closed: (2) Dislocation of internal right hip prosthesis, initial encounter: Reshma Erinalexandria Kelley is a 54 yo woman w/ 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 femoral neck fracture due to a mechanical fall on 11/10/2024 s/p R. hip replacement, Seropositive Rheumatoid Arthritis, Portal vein thrombosis, & IDDM2, who presented to the ED on 11/22/2024 w/ complaints that she had broken her R. hip. In the ED, her vital signs were significant for tachycardia of greater than 100. She had a leukocytosis of 18. Her pelvic and hip xray showed a periprosthetic fracture of the proximal femoral stem of the arthroplasty component as well as superior dislocation of the acetabular component from the bony pelvis. Her CXR showed no acute cardiopulmonary processes. Orthopedic surgeon on-call was consulted by the ED Physician and the surgeon recommended admitting the patient. #Periprosthetic fracture of the R. proximal femoral stem after R. hip arthroplasty 11/12/2024 #R. hip dislocation after R. hip arthroplasty 11/12/2024 - Orthopedic surgery consulted - Pain control. - It is unclear whether the patient took Apixaban on the morning that she presented. Will need to find out from her . Hold Apixaban - Resume vitamin D #SIRS: Unclear reason. Ordered BCx, UA/UCx. Will empirically give antibiotics given immunopromised state. Ordered 1L NS+40mEQ of K over 4hrs and another 1L NS at 100cc/hr #Hypokalemia: gave a total of 80mEQ x 1. #IDDM2: Ordered low dose sliding scale insulin in the AM and high dose SSI at night #Portal vein thrombosis - on Apixaban - hold. Full dose Lovenox ordered #COPD: Not in acute exacerbation. Ordered duonebs. #Seropositive RA: On Tofacitinib. Find out whether she is on Prednisone daily. If she is, restart it. #Anxiety d/o: Resume home meds. xanax prn and sertraline. #RLS: Resumed Home med. DVT ppx: Lovenox GI ppx: On PPI November 23, 2024 Patient admitted overnight for periprosthetic fracture of the proximal femoral stem. Reviewed by orthopedics today, plan for reduction under anesthesia tomorrow in the OR. UA shows trace leukocyte esterase, negative nitrate, potentially UTI may be contributing to leukocytosis. Continue empiric piperacillin/tazobactam for now while infectious evaluation is ongoing. Blood cultures are pending at this time. Discontinue IV fluids. Discontinue at bedtime sliding scale of insulin. Will continue daytime low-dose insulin sliding scale. PDMP PDMP Reviewed: Not Reviewed Attestations 2 Medical Necessity Statement*: needs reduction of periprosthetic fracrture Coding Level of Care Code Acute Code for Chg Fwd Diagnoses Closed fracture of neck of right femur, initial encounter S72.001A Encounter type: initial encounter Dislocation of internal right hip prosthesis, initial encounter T84.020A
[2024-11-23 16:38] LABS: Glucose Point of Care 288 mg/dL (70-110)
[2024-11-23] MEDS: HYDROmorphone 0.5 MG/0.5 ML INJ 1 MG IVP ×2 (17:41→23:50)
[2024-11-23] MEDS: ropinirole 2 mg Tablet 3 MG PO (20:29)
[2024-11-23] MEDS: sertraline 100 mg Tablet PO (20:29)
[2024-11-23 20:57] LABS: Glucose Point of Care 235 mg/dL (70-110)
[2024-11-24] VITALS (24 sets, daily range): BP systolic 115–152; BP diastolic 62–96; PULSE 78–122; RESP 16–21; TEMP 36.2–37.1; O2SAT 91–98
[2024-11-24 04:16] LABS: Glucose Point of Care 256 mg/dL (70-110)
[2024-11-24] MEDS: piperacillin-tazobactam 3.375 GM in sodium chloride 0.9% (plus) 50 ML IV ×3 (04:38→20:07)
[2024-11-24 04:44] LABS: Basophils % 0.2 %; Eosinophils # 0.3 10^3/uL (0.0-0.8); Eosinophils % 3.2 %; Hematocrit 27.4 % (36-47); Lymphocytes # 0.7 10^3/uL (0.8-4.8); Lymphocytes % 7.4 %; Mean Corpuscular HGB Conc 30.7 g/dL (30-55); Mean Corpuscular Hemoglobin 28.4 pg (27-33); Mean Corpuscular Volume 92.6 fl (85-98); Mean Platelet Volume 10.2 fL (7.4-10.4); Monocytes # 0.4 10^3/uL (0.2-0.9); Monocytes % 4.2 %; Neutrophils # 8.41 10^3/uL (1.8-7.7); Neutrophils % 83.9 %; Nucleated Red Blood Cells % 0 %; Platelet Count 194 10^3/cmm (157-399); Red Blood Count 2.96 10^6/uL (3.85-5.65); Red Cell Distribution Width 14.8 % (12.1-15.1); White Blood Count 10.02 10^3/uL (3.29-11.43)
[2024-11-24 04:56] LABS: Partial Thromboplastin Time 40.8 SECONDS (23.9-36.7)
[2024-11-24 05:03] LABS: Alanine Aminotransferase 21 U/L (0-33); Albumin Level 2.1 g/dL (3.5-5.2); Alkaline Phosphatase 252 U/L (35-105); Anion Gap 15.9 (5-19); Aspartate Amino Transferase 18 U/L (0-32); Blood Urea Nitrogen 6 mg/dL (6-20); Calcium 7.7 mg/dL (8.5-10.5); Carbon Dioxide 20 mmol/L (22-29); Chloride 103 mmol/L (98-107); Creatinine Clr Calc Pharmacy 118.1796; Glomerular Filtration Rate 103.4 mL/min (90-130); Glucose 256 mg/dL (65-115); Magnesium 1.7 mg/dL (1.7-2.3); Osmolality Calculated 284 mOsm/kg (285-295); Phosphorus 2.5 mg/dL (2.5-4.5); Potassium 4.9 mmol/L (3.5-5.1); Sodium 134 mmol/L (136-145); Total Bilirubin 0.8 mg/dL (0.15-1.2); Total Protein 5.1 g/dL (6.6-8.7)
[2024-11-24 07:13] LABS: Glucose Point of Care 301 mg/dL (70-110)
--- NOTE | 2024-11-24 07:31 | W.PM.OPSUD ---
Surgery/Procedure H&P Update DATE OF PROCEDURE: November 24, 2024 DATE H&P PERFORMED: 11/23/24 H&P UPDATE INFORMATION: I have reviewed H&P completed within last 30 days, I have examined patient prior to procedure and No changes to prior documentation PLANNED PROCEDURE: Operation Date: 11/24/24 08:10 Proposed Procedures p Closed Reduction Hip(Right) - Curtis Taylor DO
--- NOTE | 2024-11-24 07:33 | ANES.PREANE2 ---
Pre-Anesthetic Assessment Height/Weight: Height 5 ft 5 in Weight 206 lb 3.2 oz Temp Pulse Resp BP Pulse Ox O2 Del Method O2 Flow Rate 97.7 F 82 17 126/75 96 Nasal Cannula 2 11/24/24 06:45 11/24/24 06:45 11/24/24 06:45 11/24/24 06:45 11/24/24 06:45 11/24/24 06:45 11/24/24 06:45 Preop Diagnosis: Hip dislocation Operation Date: 11/24/24 08:10 Proposed Procedures p Closed Reduction Hip(Right) - Curtis Taylor, DO Was Beta Brooke taken within 24 hours: N/A Was Clonidine taken within 24 hours: N/A Last intake: Intake Last Liquid Date 11/23/24 Last Liquid Time 22:00 Last Solid Date 11/23/24 Last Solid Time 18:00 Social Tobacco and No alcohol Exam alert, oriented x 3 and regular rate & rhythm Airway Submandibular: within normal limits Cervical ROM: within normal limits Mallampati: Class III Anesthetic Plan ASA status: 3 Other: Patient presented 11/22/2024 with hip dislocation S/p FRANCIS on 11/12/2024 No prior issues with anesthesia NPO since yesterday evening Patient is on chronic Eliquis, bridged with Lovenox during hospitalization. History of PE Patient currently on 2 L nasal cannula with SpO2 of 90%. No home oxygen. COPD, current smoker Type 2 diabetes on chronic insulin, BS 301. will give 5 units insulin EKG showing sinus rhythm with probable left atrial enlargement Prior stress test 2023 was negative Labs reviewed, hemoglobin 8.4 this a.m. Plan for general anesthesia Medications/Allergies Home Medications ?Medication ?Instructions ?Recorded ?Confirmed ?Last Taken ?Type rosuvastatin 20 mg tablet (Crestor) 20 mg PO QAM 09/04/19 11/23/24 11/22/24 History omeprazole 40 mg capsule,delayed 40 mg PO QAM 09/05/19 11/23/24 11/22/24 History release nitroglycerin 0.4 mg sublingual 0.4 mg sublingual Q5M PRN chest 09/09/19 11/23/24 Unknown Rx tablet (Nitrostat) pain 30 days #25 tabs albuterol sulfate 2.5 mg/3 mL 2.5 mg inhalation Q6H PRN 04/01/20 11/23/24 12/14/22 History (0.083 %) solution for nebulization Shortness Of Breath aspirin 81 mg tablet,delayed 81 mg PO DAILY@0800 08/15/20 11/23/24 11/22/24 History release tamsulosin 0.4 mg capsule (Flomax) 0.4 mg PO BEDTIME 05/22/21 11/23/24 11/21/24 20:00 History alprazolam 0.25 mg tablet 0.25 mg PO DAILY PRN anxiety 09/16/22 11/23/24 01/12/23 History Knee Walker #1 ea 11/11/22 11/23/24 Unknown Rx sertraline 100 mg tablet (Zoloft) 100 mg PO QAM 01/12/23 11/23/24 11/22/24 08:00 History acetaminophen 500 mg tablet 1,000 mg PO Q12H PRN Pain 03/07/23 11/23/24 Unknown History folic acid 1 mg tablet 1 mg PO QAM 03/07/23 11/23/24 11/22/24 History guaifenesin 600 mg tablet, 600 mg PO Q12H PRN Congestion 03/07/23 11/23/24 Unknown History extended release 12 hr (Mucinex) magnesium hydroxide 400 mg/5 mL 30 ml PO DAILY PRN Constipation 03/07/23 11/23/24 Unknown History oral suspension (Milk of Magnesia) ropinirole 3 mg tablet 3 mg PO BEDTIME 03/07/23 11/23/24 11/21/24 20:00 History ipratropium 20 mcg-albuterol 100 1 puff inhalation Q6H PRN 04/25/23 11/23/24 Unknown Rx mcg/actuation mist for inhalation Shortness Of Breath #4 grams (Combivent Respimat) diclofenac sodium 1 % topical gel 4 g topical QID #100 grams 07/28/23 11/23/24 11/10/24 Rx (Voltaren Arthritis Pain) oxycodone 10 mg tablet 10 mg PO Q4H PRN Pain 07/28/23 11/23/24 11/22/24 History prednisone 5 mg tablet 5 mg PO DAILY PRN flares #60 tabs 03/20/24 11/23/24 Unknown Rx prednisone 10 mg tablet See Rx Instructions PO DAILY joint 09/18/24 11/23/24 Unknown Rx pain #30 tabs tofacitinib 5 mg tablet (Xeljanz) 5 mg PO BID #60 tabs 09/18/24 11/23/24 11/22/24 08:00 Rx apremilast 30 mg tablet (Otezla) 30 mg PO BID #60 tabs 11/06/24 11/23/24 11/22/24 Rx cefdinir 300 mg capsule 300 mg PO Q12H 11/23/24 11/23/24 11/21/24 History cetirizine 10 mg tablet 10 mg PO DAILY 11/23/24 11/23/24 11/22/24 History cholecalciferol (vitamin D3) 125 125 mcg PO DAILY 11/23/24 11/23/24 11/22/24 History mcg (5,000 unit) tablet (Vitamin D3) gabapentin 300 mg capsule 300 mg PO TID 11/23/24 11/23/24 11/22/24 History insulin glargine 100 unit/mL (3 50 unit SUBCUT BEDTIME 11/23/24 11/23/24 11/21/24 History mL) subcutaneous pen (Lantus Solostar U-100 Insulin) insulin lispro 100 unit/mL 14 unit SUBCUT TID 11/23/24 11/23/24 Unknown History subcutaneous pen melatonin 5 mg disintegrating 5 mg PO DAILY sleep 11/23/24 11/23/24 Unknown History tablet potassium chloride 20 mEq 20 meq PO DAILY 11/23/24 11/23/24 11/22/24 History tablet,extended release ramipril 5 mg capsule 5 mg PO DAILY 11/23/24 11/23/24 11/22/24 History Allergies Allergy/AdvReac Type Severity Reaction Status Date / Time bee venom protein (honey bee) Allergy ALGY-Anaphy Verified 09/18/24 10:39 laxis topiramate (From Topamax) Allergy ADR-Halluci Verified 09/18/24 10:39 nating Current Medications Generic Name Dose Route Start Last Admin Trade Name Freq PRN Reason Stop Dose Admin Albuterol/Ipratropium 3 ml 11/23/24 08:00 11/23/24 20:48 Ipratropium-Albuterol 3 Ml Neb INHALATION 3 ml QID.RESPIRATORY PHONG Administration Cyclobenzaprine HCl 10 mg 11/23/24 13:17 11/23/24 20:31 Cyclobenzaprine 10 Mg Tablet PO 10 mg TID PRN Administration MUSCLE SPASMS Docusate Sodium 200 mg 11/23/24 09:00 11/23/24 09:09 Docusate Sodium 100 Mg Capsule PO 200 mg DAILY PHONG Administration Enoxaparin Sodium 100 mg 11/23/24 02:30 11/24/24 01:18 Enoxaparin 100 Mg/Ml Syringe SUBCUT Not Given Q12H PHONG Hydromorphone HCl 1 mg 11/23/24 02:39 11/23/24 23:50 Hydromorphone 0.5 Mg/0.5 Ml Inj IVP 1 mg Q4H PRN Administration SEVERE PAIN Piperacillin Sod/Tazobactam 50 mls @ 12.5 mls/hr 11/23/24 05:00 11/24/24 04:38 Sod 3.375 gm/ Sodium Chloride IV 12.5 mls/hr Q8H [facility] Administration Protocol Insulin Human Lispro 0 unit 11/23/24 08:00 11/23/24 17:38 Insulin Lispro 100 Unit/1 Ml SUBCUT 8 unit TIDWM [facility] Administration Protocol Oxycodone/Acetaminophen 1 tab 11/23/24 02:40 11/23/24 20:30 Oxycodone-Apap 5-325 Mg Tablet PO 1 tab Q4H PRN Administration MODERATE PAIN Pantoprazole Sodium 40 mg 11/24/24 06:00 11/24/24 04:[address] 40 Mg Tablet PO Not Given DAILY PHONG Ropinirole HCl 3 mg 11/23/24 21:00 11/23/24 20:29 Ropinirole 2 Mg Tablet PO 3 mg BEDTIME PHONG Administration Senna 17.2 mg 11/23/24 09:00 11/23/24 09:09 Sennosides 8.6 Mg Tablet PO 17.2 mg DAILY PHONG Administration Sertraline HCl 100 mg 11/23/24 21:00 11/23/24 20:29 Sertraline 100 Mg Tablet PO 100 mg BEDTIME PHONG Administration PFSH Anesthesia Medical History PVD (peripheral vascular disease) Tobacco abuse COPD (chronic obstructive pulmonary disease) Bronchitis Plaque psoriasis Immunization counseling High risk medication use Seropositive rheumatoid arthritis of multiple sites Closed fracture of right distal fibula Fall at home Closed fracture of right distal tibia Closed right ankle fracture Fracture of distal end of tibia with fibula Acute gout of right ankle Psoriasis Cigarette smoker motivated to quit Thrombocytopenia Rheumatoid arthritis Transaminitis Immunocompromised Chronic anticoagulation Portal vein thrombosis COVID-19 Syncope Seizures Onychodystrophy Rheumatoid arthritis Closed fracture of right distal fibula Emphysema/COPD Avulsion fracture of left ankle Essential hypertension Claudication Spondylosis of lumbar region without myelopathy or radiculopathy Long-term current use of opiate analgesic Pain, joint, multiple sites Osteoporosis Fibromyalgia Diabetes DDD (degenerative disc disease), cervical Cervical spondylosis Tobacco use disorder Surgical History Hx of right BKA S/P ANN-BSO S/P foot surgery Hx of section (~1989) Hx laparoscopic cholecystectomy H/O dilation and curettage Hx of hysterectomy Family History Mother Stroke Cancer SKIN CANCER Sister Stroke Other Diabetes Myocardial infarct Denies family history of Anesthesia complication Bleeding disorder Social History Smoking and tobacco/nicotine status: current every day tobacco/nicotine user cigarettes Years cigarettes smoked: 40 [ Other cigarette details: 10 cigarettes/day currently] Quit status (tobacco/nicotine): considering quitting Second hand smoke exposure: Yes Alcohol intake: former Substance/Drug Use: never Additional social history: Patient wants full code as discussed today 11/10/2024 but no prolonged CPR or life support Caregiver/support person: Yes Lives independently: Yes Household members: spouse Marital status: Current occupational status: disabled Pets and animals: Yes Do you think of yourself as: Straight/Heterosexual Current gender identity: Female Data Anesthesia 11/24/24 04:25 11/24/24 04:25 Short CBC 11/22/24 11/23/24 11/24/24 Range/Units 21:15 04:18 04:25 WBC 18.19 H 16.24 H 10.02 (3.29-11.43) 10^3/uL Hgb 9.70 L 7.40 L 8.40 L (11.27-16.99) g/dL Hct 30.7 L 24.3 L 27.4 L (36-47) % MCV 90.8 94.9 92.6 (85-98) fl Plt Count 237 208 194 (157-399) 10^3/cmm Neut % (Auto) 81.6 79.3 83.9 % Neut # (Auto) 14.84 H 12.87 H 8.41 H (1.8-7.7) 10^3/uL BMP 11/22/24 11/23/24 11/24/24 21:15 04:18 04:25 Sodium 134 L 134 L 134 L Potassium 3.2 L 3.6 4.9 Chloride 100 102 103 Carbon Dioxide 21 L 20 L 20 L BUN 7 6 6 Creatinine 0.6 0.6 0.6 Glucose 64 L 38 L* 256 H Calcium 8.3 L 7.6 L 7.7 L Liver Function 11/22/24 11/23/24 11/24/24 Range/Units 21:15 04:18 04:25 Total Bilirubin 0.9 0.9 0.8 (0.15-1.2) mg/dL AST 15 84 H 18 (0-32) U/L ALT 14 29 21 (0-33) U/L Alkaline Phosphatase 217 H 292 H 252 H (35-105) U/L Albumin 2.8 L 2.2 L 2.1 L (3.5-5.2) g/dL Urine 11/23/24 Range/Units 03:15 Urine Color Yellow (Yellow) Urine Appearance Clear (CLEAR) Urine pH 6.0 (5-7) Ur Specific [place] 1.006 (1.005-1.030) Urine Protein Negative (Negative) Urine Glucose (UA) Negative (Normal) Urine Ketones Negative (Negative) Urine Nitrate Negative (Negative) Urine Bilirubin Negative (Negative) Ur Leukocyte Esterase Trace A (Negative) Urine RBC 10-15 H (0-2) /hpf Urine WBC 0-4 H (0-5) /hpf Coags 11/22/24 11/23/24 11/24/24 21:15 04:15 04:25 PT 13.70 14.90 13.90 INR 0.98 1.09 1.00 APTT 39.9 H 40.8 H Microbiology 11/23/24 04:15 Blood Culture - Preliminary Blood NEGATIVE TO DATE 11/23/24 04:18 Blood Culture - Preliminary Blood NEGATIVE TO DATE Cardiac Studies: Echocardiogram 11/13/24 Echocardiogram Limited Views 10/21/20 Echocardiogram Ultrasound 08/14/20 Sestamibi Stress Test (Cardiology) 01/30/24 Holter Monitor 03/31/20
[2024-11-24] MEDS: insulin regular-human 100 units/1 mL 5 UNIT IVP (08:02)
--- NOTE | 2024-11-24 08:35 | CTR_ITS ---
PROCEDURE INFORMATION: Exam: CT Right Lower Extremity Without Contrast, Hip Exam date and time: 11/24/2024 9:01 AM Age: 54 years old Clinical indication: Periprosthetic fracture of right hip. Prior surgery; Surgery date: 3-7 days post-operative; Surgery type: RT hip TECHNIQUE: Imaging protocol: CT of the right lower extremity without contrast was performed. Exam focused on the hip. Radiation optimization: All CT scans at this facility use at least one of these dose optimization techniques: automated exposure control; mA and/or kV adjustment per patient size (includes targeted exams where dose is matched to clinical indication); or iterative reconstruction. COMPARISON: CR (PELVIS, ) 11/22/2024 9:07 PM RADIATION DOSE METRICS: Total DLP (mGy-cm): 565.28 FINDINGS: Bones/joints: Recent right hip arthroplasty. No hardware complication is seen. No periprosthetic fracture is identified. Soft tissues: Incompletely visualized hematoma in the lateral subcutaneous tissues measuring at least 4.5 x 2.7 x 11 cm. Acute strain of the right piriformis muscle. CT/CT hip RT wo con* [id number] IMPRESSION: 1. Recent right hip arthroplasty. No hardware complication is seen. 2. No periprosthetic fracture is identified. 3. Large, incompletely visualized hematoma in the lateral subcutaneous tissues. 4. Acute strain of the right piriformis muscle.
--- NOTE | 2024-11-24 08:42 | PM.OP ---
Operative Report Date of procedure: November 24, 2024 Pre-op diagnosis: Right hip dislocation after a hip hemiarthroplasty Post-op diagnosis: same Procedure done: Close reduction right hip Surgeon: Curtis Taylor DO Estimated blood loss (mL): 0 Procedure: Patient brought to the procedure after an anesthesia as placed in the supine position. All areas of impingement appear well-padded. Patient's hip was pulled with traction and excellently rotated the hip with popping to the acetabular joint. At this point the hip would stay in place with external rotation patient was placed in a hip abduction brace. Postoperatively I will send her to CT scan to further evaluate going on there was will likely a small fracture. The stent may be loose. At this point will evaluate with CT scan to determine the next course of action.
[2024-11-24 08:43] LABS: Glucose Point of Care 267 mg/dL (70-110)
[2024-11-24 09:50] LABS: Glucose Point of Care 270 mg/dL (70-110)
[2024-11-24] MEDS: insulin lispro 100 unit/1 mL SUBCUT ×2 (09:51→11:36)
[2024-11-24] MEDS: docusate sodium 100 mg Capsule 200 MG PO (09:52)
[2024-11-24] MEDS: sennosides 8.6 mg Tablet 17.2 MG PO (09:52)
[2024-11-24] MEDS: pantoprazole DR 40 mg Tablet PO (09:52)
[2024-11-24 11:27] LABS: Glucose Point of Care 251 mg/dL (70-110)
[2024-11-24] MEDS: ondansetron 2 mg/ML SDV 2 mL 4 MG IVP (11:36)
[2024-11-24] MEDS: oxyCODONE-APAP 5-325 mg Tablet 1 TAB PO (11:43)
[2024-11-24] MEDS: enoxaparin 100 mg/mL Syringe SUBCUT (14:52)
--- NOTE | 2024-11-24 16:30 | P.PN_ITS ---
Subjective 2 Subjective: Patient underwent closed reduction of the right hip today in the operating room with Dr. Taylor. Postoperatively states there is some pain at the site which is not adequately controlled with current pain regimen. Medications: Reviewed: Yes Vitals/I&O/Wt Last Vital Signs Temp 98.4 F 11/24/24 14:11 Pulse 88 11/24/24 15:52 Resp 16 11/24/24 15:52 BP 129/75 11/24/24 14:11 Pulse Ox 98 11/24/24 15:52 O2 Del Method Nasal Cannula 11/24/24 15:52 O2 Flow Rate 2 11/24/24 15:52 11/24/24 11/24/24 11/24/24 06:59 14:59 22:59 Intake Total 50 / 2870 220 / 220 Output Total 600 / 600 Balance 50 / 1870 -380 / -380 Weight last 48 hrs Weight 93.531 kg Weight 93.259 kg Weight 92.76 kg Weight 95.254 kg Physical Exam 2 Narrative: General: No acute distress, AO x3 HEENT: PERRLA, pupils bilaterally equal and reactive, pallors not present Chest: Normal vesicular breath sounds, no added sounds, equal good air entry bilaterally CVS: S1-S2 regular, no murmurs, no tachycardia, no gallops, no rubs Abdomen: Soft, nontender, no organomegaly, bowel sounds present Neuro: No focal deficits, no facial deformity, AO x3, power 5/5 in all limbs Urinary Catheter Management: Dent: Cath Placed During This Visit: yes Reason for Continuing Indwelling Catheter: Other Urinary Catheter Date of Insertion: 11/23/24 Urinary Catheter Time of Insertion: 03:58 Data 11/24/24 04:25 11/24/24 04:25 Micro: Microbiology 11/23/24 03:15 Urine Culture - Preliminary Urine,Clean Catch 11/23/24 04:15 Blood Culture - Preliminary Blood NEGATIVE TO DATE 11/23/24 04:18 Blood Culture - Preliminary Blood NEGATIVE TO DATE A&P Assessment and plan (1) Fracture of femoral neck, right, closed: (2) Dislocation of internal right hip prosthesis, initial encounter: Plan Erin Kelley is a 54 yo woman w/ 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 femoral neck fracture due to a mechanical fall on 11/10/2024 s/p R. hip replacement, Seropositive Rheumatoid Arthritis, Portal vein thrombosis, & IDDM2, who presented to the ED on 11/22/2024 w/ complaints that she had broken her R. hip. In the ED, her vital signs were significant for tachycardia of greater than 100. She had a leukocytosis of 18. Her pelvic and hip xray showed a periprosthetic fracture of the proximal femoral stem of the arthroplasty component as well as superior dislocation of the acetabular component from the bony pelvis. Her CXR showed no acute cardiopulmonary processes. Orthopedic surgeon on-call was consulted by the ED Physician and the surgeon recommended admitting the patient. #Periprosthetic fracture of the R. proximal femoral stem after R. hip arthroplasty 11/12/2024 #R. hip dislocation after R. hip arthroplasty 11/12/2024 - Orthopedic surgery consulted - Pain control. - It is unclear whether the patient took Apixaban on the morning that she presented. Will need to find out from her . Hold Apixaban - Resume vitamin D #SIRS: Unclear reason. Ordered BCx, UA/UCx. Will empirically give antibiotics given immunopromised state. Ordered 1L NS+40mEQ of K over 4hrs and another 1L NS at 100cc/hr #Hypokalemia: gave a total of 80mEQ x 1. #IDDM2: Ordered low dose sliding scale insulin in the AM and high dose SSI at night #Portal vein thrombosis - on Apixaban - hold. Full dose Lovenox ordered #COPD: Not in acute exacerbation. Ordered duonebs. #Seropositive RA: On Tofacitinib. Find out whether she is on Prednisone daily. If she is, restart it. #Anxiety d/o: Resume home meds. xanax prn and sertraline. #RLS: Resumed Home med. DVT ppx: Lovenox GI ppx: On PPI November 23, 2024 Patient admitted overnight for periprosthetic fracture of the proximal femoral stem. Reviewed by orthopedics today, plan for reduction under anesthesia tomorrow in the OR. UA shows trace leukocyte esterase, negative nitrate, potentially UTI may be contributing to leukocytosis. Continue empiric piperacillin/tazobactam for now while infectious evaluation is ongoing. Blood cultures are pending at this time. Discontinue IV fluids. Discontinue at bedtime sliding scale of insulin. Will continue daytime low-dose insulin sliding scale. November 24, 2024 Status post closed reduction in the emergency room today. Awaiting repeat CT hip postreduction to assess for any periprosthetic fractures. Will await further recommendations from orthopedics if any further surgical interventions are needed. Blood sugar is better controlled today. No further episodes of hypoglycemia. Leukocytosis resolved. With quick resolution favored this to be related to acute stress. Aim to discontinue antibiotics next 24 hours if all cultures remain negative. PDMP PDMP Reviewed: Not Reviewed Attestations 2 Medical Necessity Statement*: s/p OR reduction today, await new hip CT Coding Level of Care Code Acute Code for Chg Fwd Diagnoses Closed fracture of neck of right femur, initial encounter S72.001A Encounter type: initial encounter Dislocation of internal right hip prosthesis, initial encounter T84.020A
[2024-11-24 17:10] LABS: Glucose Point of Care 93 mg/dL (70-110)
[2024-11-24] MEDS: docusate sodium 100 mg Capsule PO (17:47)
[2024-11-24] MEDS: tamsulosin 0.4 mg Capsule PO (20:05)
[2024-11-24] MEDS: sertraline 100 mg Tablet PO (20:05)
[2024-11-24] MEDS: gabapentin 300 mg Capsule PO (20:05)
[2024-11-24] MEDS: ropinirole 2 mg Tablet 3 MG PO (20:05)
[2024-11-24] MEDS: MELATONIN 3 MG TABLET PO (20:05)
[2024-11-24 20:56] LABS: Glucose Point of Care 129 mg/dL (70-110)
[2024-11-25] VITALS (14 sets, daily range): BP systolic 114–148; BP diastolic 60–90; PULSE 81–98; RESP 16–18; TEMP 36.5–36.9; O2SAT 90–97
--- NOTE | 2024-11-25 | XR_ITS ---
WS: [id number] Right hip, C-arm fluoroscopy views, 11/24/2024 Clinical Data: ROMI PICS Comparison: Right hip, 11/22/2024 Findings: Dr. Taylor reduced the dislocation of the right arthroplasty. XR/XR hip RT 2-3V wo/w pel* [id number] Impression: Reduction of right hip arthroplasty dislocation.
[2024-11-25] MEDS: enoxaparin 100 mg/mL Syringe SUBCUT ×2 (02:59→14:04)
[2024-11-25 03:44] LABS: Basophils # 0.1 10^3/uL (0.0-0.1); Basophils % 0.6 %; Eosinophils # 0.5 10^3/uL (0.0-0.8); Eosinophils % 4.6 %; Hematocrit 30.4 % (36-47); Lymphocytes # 0.6 10^3/uL (0.8-4.8); Lymphocytes % 6.2 %; Mean Corpuscular HGB Conc 29.9 g/dL (30-55); Mean Corpuscular Hemoglobin 28.6 pg (27-33); Mean Corpuscular Volume 95.6 fl (85-98); Mean Platelet Volume 10.7 fL (7.4-10.4); Monocytes # 0.3 10^3/uL (0.2-0.9); Monocytes % 3.3 %; Neutrophils # 8.71 10^3/uL (1.8-7.7); Neutrophils % 84.3 %; Nucleated Red Blood Cells % 0 %; Platelet Count 204 10^3/cmm (157-399); Red Blood Count 3.18 10^6/uL (3.85-5.65); Red Cell Distribution Width 14.8 % (12.1-15.1); White Blood Count 10.32 10^3/uL (3.29-11.43)
[2024-11-25] MEDS: piperacillin-tazobactam 3.375 GM in sodium chloride 0.9% (plus) 50 ML IV ×2 (04:00→12:10)
[2024-11-25 04:10] LABS: Alanine Aminotransferase 17 U/L (0-33); Albumin Level 2.4 g/dL (3.5-5.2); Alkaline Phosphatase 274 U/L (35-105); Anion Gap 18.7 (5-19); Aspartate Amino Transferase 14 U/L (0-32); Blood Urea Nitrogen 5 mg/dL (6-20); Calcium 8.1 mg/dL (8.5-10.5); Carbon Dioxide 20 mmol/L (22-29); Chloride 100 mmol/L (98-107); Creatinine Clr Calc Pharmacy 118.3594; Glomerular Filtration Rate 103.4 mL/min (90-130); Glucose 251 mg/dL (65-115); Magnesium 1.9 mg/dL (1.7-2.3); Osmolality Calculated 284 mOsm/kg (285-295); Phosphorus 2.6 mg/dL (2.5-4.5); Potassium 4.7 mmol/L (3.5-5.1); Sodium 134 mmol/L (136-145); Total Protein 5.4 g/dL (6.6-8.7)
[2024-11-25] MEDS: atorvastatin 40 mg Tablet 80 MG PO (05:02)
[2024-11-25 07:04] LABS: Glucose Point of Care 410 mg/dL (70-110)
[2024-11-25] MEDS: docusate sodium 100 mg Capsule PO (08:18)
[2024-11-25] MEDS: docusate sodium 100 mg Capsule 200 MG PO (08:18)
[2024-11-25] MEDS: gabapentin 300 mg Capsule PO ×3 (08:18→20:16)
[2024-11-25] MEDS: pantoprazole DR 40 mg Tablet PO (08:18)
[2024-11-25] MEDS: insulin lispro 100 unit/1 mL SUBCUT ×3 (08:19→17:19)
[2024-11-25] MEDS: aspirin 81 mg EC Tablet PO (08:19)
[2024-11-25] MEDS: sennosides 8.6 mg Tablet 17.2 MG PO (08:19)
--- NOTE | 2024-11-25 09:17 | P.PN_ITS ---
Subjective 2 Subjective: Patient's pain better controlled this morning. Vitals/I&O/Wt Last Vital Signs Temp 98.1 F 11/25/24 04:00 Pulse 83 11/25/24 04:42 Resp 16 11/25/24 07:34 BP 135/83 11/25/24 04:00 Pulse Ox 95 11/25/24 07:34 O2 Del Method Nasal Cannula 11/25/24 07:34 O2 Flow Rate 2 11/25/24 07:34 11/24/24 11/25/24 11/25/24 22:59 06:59 14:59 Intake Total 50 / 270 50 / 320 Output Total 1000 / 1600 300 / 1900 Balance -950 / -1330 -250 / -1580 Weight last 48 hrs Weight 208 lb Weight 206 lb 3.2 oz Physical Exam 2 Narrative: CT scan reviewed. Looks like this at this point there is a nondisplaced fracture at the calcar. Hip is reduced currently in a hip abduction brace. Urinary Catheter Management: Dent: Cath Placed During This Visit: yes Reason for Continuing Indwelling Catheter: Other Urinary Catheter Date of Insertion: 11/23/24 Urinary Catheter Time of Insertion: 03:58 Data 11/25/24 02:34 11/25/24 02:34 Micro: Microbiology 11/23/24 03:15 Urine Culture - Final Urine,Clean Catch 11/24/24 15:10 Occult Blood (FIT) - Final Stool Routine Collection 11/23/24 04:15 Blood Culture - Preliminary Blood NEGATIVE TO DATE 11/23/24 04:18 Blood Culture - Preliminary Blood NEGATIVE TO DATE A&P Assessment and plan (1) S/P hip replacement: Patient is postop day #1 reduction of right hip. Follow-up outpatient with Dr. Mullen in next week PDMP PDMP Reviewed: Not Reviewed Attestations 2 Medical Necessity Statement*: Per primary service Coding Level of Care Code Acute Code for Chg Fwd Diagnoses Status post right hip replacement Z96.641 Laterality: right
[2024-11-25 10:00] LABS: Glucose Point of Care 405 mg/dL (70-110)
--- NOTE | 2024-11-25 10:15 | PC.CHAP ---
Pastoral Care Encounter/Spiritual Assessment Type of Contact [] Declined weekend receptionist visit [] Patient/Family/Request visit [] Outpatient visit [] Follow-up visit [] Physician referral [] Code/Alert [x] Routine visit [] Staff referral [] Actively dying [] Patient sleeping [] Family support [] [] Out of room [] Palliative care [] [] Receiving care in room [] Pre-surgical visit [] Trauma [] Long length of stay [] ICU visit [] Other: Relational/Emotional Strength [] Patient feels connected with others/family/visitors/staff [] Distress [] Loneliness/isolation [] Abandonment Spirituality of Patient [x] Person of Yadira [] Attends Alevism of their Yadira [x] Believes in Prayer [] Reads Bible or Jew materials [] There are Spiritual issues to be addressed Bacteriologist Pharmaceutical Interventions [x] Prayer [x] Active listening [] Non-anxious presence [] Spiritual/emotional support [] Crisis/trauma care [] Spiritual counseling [] Bereavement support [] Provided bereavement packet [x] Provided Bible/devotional materials [] Provided toy/stuffed animal, coloring book to patient or family member [] Provided Communion [] Anointing/[place] [] Salvation [x] Completed spiritual assessment [] Other: Impact on Illness or Injury [] Angry [] Fearful [] Anxious [] Often cries [] Exhaustion [] Unable to work [] Unable to attend gnosticist [] Unable to walk/stand [] Unable to read [] Unable to drive [] Unable to eat/drink [] Unable to sleep [] Unable to be with family [] Patient intubated [] Other: Summary Time spent with patient 5 min
[2024-11-25] MEDS: diclofenac 1% Topical Gel 100 gm 1 APPLIC TOPICAL ×4 (10:43→20:14)
[2024-11-25 11:32] LABS: Glucose Point of Care 308 mg/dL (70-110)
[2024-11-25] MEDS: cyclobenzaprine 10 mg Tablet PO (12:09)
[2024-11-25] MEDS: oxyCODONE-APAP 5-325 mg Tablet 1 TAB PO (12:09)
--- NOTE | 2024-11-25 15:38 | P.PN_ITS ---
Subjective 2 Subjective: Patient denies any new complaints today. States that pain is okay. Uncontrolled blood sugars noted. Hemoglobin at 9.11, close to patient's last known baseline. Medications: Reviewed: Yes Vitals/I&O/Wt Last Vital Signs Temp 98.0 F 11/25/24 13:55 Pulse 87 11/25/24 13:55 Resp 18 11/25/24 13:55 BP 122/81 11/25/24 13:55 Pulse Ox 94 11/25/24 13:55 O2 Del Method Nasal Cannula 11/25/24 13:55 O2 Flow Rate 2 11/25/24 08:00 11/25/24 11/25/24 11/25/24 06:59 14:59 22:59 Intake Total 50 / 320 290 / 290 Output Total 300 / 1900 600 / 600 Balance -250 / -1580 -310 / -310 Weight last 48 hrs Weight 94.347 kg Weight 93.531 kg Physical Exam 2 Narrative: General: No acute distress, AO x3 HEENT: PERRLA, pupils bilaterally equal and reactive, pallors not present Chest: Normal vesicular breath sounds, no added sounds, equal good air entry bilaterally CVS: S1-S2 regular, no murmurs, no tachycardia, no gallops, no rubs Abdomen: Soft, nontender, no organomegaly, bowel sounds present Neuro: No focal deficits, no facial deformity, AO x3, power 5/5 in all limbs Urinary Catheter Management: Dent: Cath Placed During This Visit: yes Reason for Continuing Indwelling Catheter: Other Urinary Catheter Date of Insertion: 11/23/24 Urinary Catheter Time of Insertion: 03:58 Data 11/25/24 02:34 11/25/24 02:34 Micro: Microbiology 11/23/24 03:15 Urine Culture - Final Urine,Clean Catch 11/24/24 15:10 Occult Blood (FIT) - Final Stool Routine Collection A&P Assessment and plan (1) Fracture of femoral neck, right, closed: (2) Dislocation of internal right hip prosthesis, initial encounter: Plan Erinalexandria Kelley is a 54 yo woman w/ 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 femoral neck fracture due to a mechanical fall on 11/10/2024 s/p R. hip replacement, Seropositive Rheumatoid Arthritis, Portal vein thrombosis, & IDDM2, who presented to the ED on 11/22/2024 w/ complaints that she had broken her R. hip. In the ED, her vital signs were significant for tachycardia of greater than 100. She had a leukocytosis of 18. Her pelvic and hip xray showed a periprosthetic fracture of the proximal femoral stem of the arthroplasty component as well as superior dislocation of the acetabular component from the bony pelvis. Her CXR showed no acute cardiopulmonary processes. Orthopedic surgeon on-call was consulted by the ED Physician and the surgeon recommended admitting the patient. #Periprosthetic fracture of the R. proximal femoral stem after R. hip arthroplasty 11/12/2024 #R. hip dislocation after R. hip arthroplasty 11/12/2024 - Orthopedic surgery consulted - Pain control. - It is unclear whether the patient took Apixaban on the morning that she presented. Will need to find out from her . Hold Apixaban - Resume vitamin D #SIRS: Unclear reason. Ordered BCx, UA/UCx. Will empirically give antibiotics given immunopromised state. Ordered 1L NS+40mEQ of K over 4hrs and another 1L NS at 100cc/hr #Hypokalemia: gave a total of 80mEQ x 1. #IDDM2: Ordered low dose sliding scale insulin in the AM and high dose SSI at night #Portal vein thrombosis - on Apixaban - hold. Full dose Lovenox ordered #COPD: Not in acute exacerbation. Ordered duonebs. #Seropositive RA: On Tofacitinib. Find out whether she is on Prednisone daily. If she is, restart it. #Anxiety d/o: Resume home meds. xanax prn and sertraline. #RLS: Resumed Home med. DVT ppx: Lovenox GI ppx: On PPI November 23, 2024 Patient admitted overnight for periprosthetic fracture of the proximal femoral stem. Reviewed by orthopedics today, plan for reduction under anesthesia tomorrow in the OR. UA shows trace leukocyte esterase, negative nitrate, potentially UTI may be contributing to leukocytosis. Continue empiric piperacillin/tazobactam for now while infectious evaluation is ongoing. Blood cultures are pending at this time. Discontinue IV fluids. Discontinue at bedtime sliding scale of insulin. Will continue daytime low-dose insulin sliding scale. November 24, 2024 Status post closed reduction in the operating room room today. Awaiting repeat CT hip postreduction to assess for any periprosthetic fractures. Will await further recommendations from orthopedics if any further surgical interventions are needed. Blood sugar is better controlled today. No further episodes of hypoglycemia. Leukocytosis resolved. With quick resolution favored this to be related to acute stress. Aim to discontinue antibiotics next 24 hours if all cultures remain negative. November 25, 2024 Status post closed reduction in the OR yesterday. CT hip postreduction did not show any periprosthetic fractures. Patient is currently being arranged for an adduction brace hide awaiting a physical therapy evaluation to a certain appropriate disposition planning. She has brought in her leg prosthesis this afternoon to be able to get out of bed. She is to remain nonweightbearing on the side of surgery per Ortho recommendations. We are awaiting physical therapy assessment to determine the most appropriate disposition for the patient with regards to continued need for inpatient rehab versus home PT. Leukocytosis remains resolved today. Discontinue piperacillin tazobactam. Urine and blood cultures remain negative to date. Chest x-ray without any acute cardiopulmonary process. Increase her sliding scale to high-dose insulin. PDMP PDMP Reviewed: Not Reviewed Attestations 2 Medical Necessity Statement*: Appropriate disposition planning is ongoing, needs therapy assessments postsurgery. Coding Level of Care Code Acute Code for Chg Fwd Diagnoses Closed fracture of neck of right femur, initial encounter S72.001A Encounter type: initial encounter Dislocation of internal right hip prosthesis, initial encounter T84.020A
[2024-11-25] MEDS: ipratropium-albuterol 3 mL Neb INHALATION ×2 (16:13→20:36)
[2024-11-25 16:22] LABS: Glucose Point of Care 249 mg/dL (70-110)
[2024-11-25] MEDS: ropinirole 2 mg Tablet 3 MG PO (20:15)
[2024-11-25 20:16] LABS: Glucose Point of Care 287 mg/dL (70-110)
[2024-11-25] MEDS: MELATONIN 3 MG TABLET PO (20:16)
[2024-11-25] MEDS: sertraline 100 mg Tablet PO (20:16)
[2024-11-25] MEDS: tamsulosin 0.4 mg Capsule PO (20:16)
[2024-11-26] VITALS (13 sets, daily range): BP systolic 109–137; BP diastolic 57–78; PULSE 80–106; RESP 17–22; TEMP 36.7–37; O2SAT 91–100
[2024-11-26 01:49] LABS: C.Diff PCR (Lab) NEGATIVE (Negative)
[2024-11-26] MEDS: cyclobenzaprine 10 mg Tablet PO (02:07)
[2024-11-26] MEDS: atorvastatin 40 mg Tablet 80 MG PO (05:19)
[2024-11-26 05:21] LABS: Basophils # 0.1 10^3/uL (0.0-0.1); Basophils % 0.5 %; Eosinophils # 0.2 10^3/uL (0.0-0.8); Eosinophils % 1.9 %; Hematocrit 30.5 % (36-47); Lymphocytes # 0.7 10^3/uL (0.8-4.8); Lymphocytes % 6.1 %; Mean Corpuscular HGB Conc 29.2 g/dL (30-55); Mean Corpuscular Volume 95.9 fl (85-98); Mean Platelet Volume 10.1 fL (7.4-10.4); Monocytes # 0.3 10^3/uL (0.2-0.9); Monocytes % 3.1 %; Neutrophils # 9.69 10^3/uL (1.8-7.7); Neutrophils % 87.6 %; Nucleated Red Blood Cells % 0 %; Platelet Count 209 10^3/cmm (157-399); Red Blood Count 3.18 10^6/uL (3.85-5.65); Red Cell Distribution Width 15.1 % (12.1-15.1); White Blood Count 11.06 10^3/uL (3.29-11.43)
[2024-11-26] MEDS: ALPRAZolam 0.5 mg Tablet 0.25 MG PO (05:21)
[2024-11-26 05:59] LABS: Alanine Aminotransferase 12 U/L (0-33); Albumin Level 2.6 g/dL (3.5-5.2); Alkaline Phosphatase 261 U/L (35-105); Anion Gap 26.9 (5-19); Aspartate Amino Transferase 11 U/L (0-32); Blood Urea Nitrogen 7 mg/dL (6-20); Calcium 8.3 mg/dL (8.5-10.5); Carbon Dioxide 14 mmol/L (22-29); Chloride 96 mmol/L (98-107); Creatinine Clr Calc Pharmacy 101.9133; Globulin 3.6 g/dL (1.3-4.6); Glomerular Filtration Rate 86.6 mL/min (90-130); Glucose 478 mg/dL (65-115); Osmolality Calculated 293 mOsm/kg (285-295); Potassium 4.9 mmol/L (3.5-5.1); Sodium 132 mmol/L (136-145); Total Bilirubin 0.7 mg/dL (0.15-1.2); Total Protein 6.2 g/dL (6.6-8.7)
[2024-11-26 06:55] LABS: Glucose Point of Care 526 mg/dL (70-110)
[2024-11-26] MEDS: aspirin 81 mg EC Tablet PO (08:08)
[2024-11-26] MEDS: pantoprazole DR 40 mg Tablet PO (08:08)
[2024-11-26] MEDS: insulin lispro 100 unit/1 mL SUBCUT ×2 (08:08→17:42)
[2024-11-26] MEDS: insulin glargine 100 units/1 mL 25 UNIT SUBCUT ×2 (08:08→21:35)
[2024-11-26] MEDS: gabapentin 300 mg Capsule PO ×3 (08:08→21:34)
[2024-11-26] MEDS: ipratropium-albuterol 3 mL Neb INHALATION (08:09)
[2024-11-26] MEDS: enoxaparin 40 mg/0.4 mL Syringe SUBCUT (08:09)
[2024-11-26 09:10] LABS: Bilirubin Urine Negative (Negative); Blood Urine Non-haemolysed trace (Negative); Glucose Urine UA 3+ (Normal); Ketones Urine 4+ (Negative); Leukocyte Esterase Urine Negative (Negative); Nitrate Urine Negative (Negative); Protein Urine Trace (Negative); Specific Gravity, Urine 1.026 (1.005-1.030); Urine Appearance Clear (CLEAR); Urine Color Yellow (Yellow); Urobilinogen Urine 0.2 mg/dL (Negative); pH Urine 5.5 (5-7)
[2024-11-26 09:15] LABS: Bacteria Urine None Seen /hpf; Hyaline Casts Urine 2.87 /lpf; RBC Urine 0-2 /hpf (0-2); Squamous Epithelial Cell Urine 0-5 /hpf (0-5)
[2024-11-26 09:20] LABS: Glucose Point of Care 535 mg/dL (70-110)
--- NOTE | 2024-11-26 09:23 | XRR_ITS ---
PROCEDURE INFORMATION: Exam: XR Chest Exam date and time: 11/26/2024 10:52 AM Age: 54 years old Clinical indication: Shortness of breath; Additional info: SOB TECHNIQUE: Imaging protocol: Radiologic exam of the chest. Views: 1 view. COMPARISON: CR (CHEST, ) 11/22/2024 10:57 PM FINDINGS: Lungs: Moderate perihilar infiltrate. Mild chronic interstitial prominence. Pleural spaces: Unremarkable. No pleural effusion. No pneumothorax. Heart/Mediastinum: See Vasculature finding. Vasculature: Mild cardiomegaly and uncoiling of the thoracic aorta. Bones/joints: Barely visible deformity from old right rib fractures. XR/XR chest 1V portable [id number] IMPRESSION: 1. Mild right perihilar infiltrate. 2. Chronic interstitial prominence.
[2024-11-26 09:37] LABS: UA Slide Review UA Slide Review Perf
[2024-11-26 09:48] LABS: C Reactive Protein 76.1 mg/L (0.0-4.9)
[2024-11-26 09:55] LABS: Procalcitonin 0.19 ng/mL (0-0.5)
[2024-11-26 10:22] LABS: Glucose Point of Care 494 mg/dL (70-110)
--- NOTE | 2024-11-26 10:25 | P.PN_ITS ---
Subjective 2 Subjective: Patient seen little disoriented when I walked in the room this morning she was reaching for her like to turn on. But it is pretty far away concerned that if she actually reached light she would have fallen out of bed. She currently is in the hip abduction brace. Vitals/I&O/Wt Last Vital Signs Temp 98.0 F 11/26/24 07:43 Pulse 100 11/26/24 08:11 Resp 20 H 11/26/24 08:11 BP 109/57 11/26/24 07:43 Pulse Ox 100 11/26/24 08:14 O2 Del Method Room Air 11/26/24 08:14 O2 Flow Rate 1 11/26/24 04:00 11/25/24 11/26/24 11/26/24 22:59 06:59 14:59 Intake Total 240 / 530 240 / 240 Output Total 850 / 1450 250 / 1700 Balance -610 / -920 -250 / -1170 240 / 240 Weight last 48 hrs Weight 208 lb Weight 208 lb Physical Exam 2 Narrative: Patient somewhat confused this morning Urinary Catheter Management: Dent: Cath Placed During This Visit: yes Reason for Continuing Indwelling Catheter: Other Urinary Catheter Date of Insertion: 11/23/24 Urinary Catheter Time of Insertion: 03:58 Data 11/26/24 04:54 11/26/24 04:54 Micro: Microbiology 11/23/24 03:15 Urine Culture - Final Urine,Clean Catch A&P Assessment and plan (1) Dislocation of internal right hip prosthesis, initial encounter: Patient is postop day #2 hip dislocation Nonweightbearing Keep brace on at all times PDMP PDMP Reviewed: Not Reviewed Attestations 2 Medical Necessity Statement*: Per primary service Coding Level of Care Code Acute Code for Chg Fwd Diagnoses Dislocation of internal right hip prosthesis, initial encounter T84.020A
--- NOTE | 2024-11-26 11:16 | PC.NURSE ---
Went in patients room for roundings, patients IV had been pulled out and lying on bed. Catheter tip intack.
--- NOTE | 2024-11-26 11:19 | PC.NURSE ---
Notified Dr. Lane of patients blood sugar this am. First was 526. Dr. Lane stated to give 18 Units from sliding scale and ordered 25 units of Lantus to be given. check blood sugar again in 1 hour. at [address] notified. Orders to watch, recheck in one hour. At [address] sugar was [address] Dr[address] Lane notified. Orders to redraw in one hour.
[2024-11-26 11:53] LABS: Glucose Point of Care 443 mg/dL (70-110)
--- NOTE | 2024-11-26 11:58 | PC.NURSE ---
Patient refused docusate 300 mg and senna due to having loose stools
[2024-11-26] MEDS: insulin lispro 100 unit/1 mL 20 UNIT SUBCUT (12:16)
--- NOTE | 2024-11-26 12:44 | PC.NURSE ---
Notified Dr. Lane patients blood sugar was 443. Dr. Lane ordered 20 units instead of the 18 units on sliding scale. Sliding scale administered as not given due to the increase of 2 units of insulin.
[2024-11-26 14:08] LABS: Blood Urea Nitrogen 9 mg/dL (6-20); Calcium 8.4 mg/dL (8.5-10.5); Carbon Dioxide 17 mmol/L (22-29); Chloride 97 mmol/L (98-107); Creatinine Clr Calc Pharmacy 89.1741; Glomerular Filtration Rate 74.2 mL/min (90-130); Glucose 318 mg/dL (65-115); Osmolality Calculated 283 mOsm/kg (285-295); Sodium 131 mmol/L (136-145)
[2024-11-26 14:47] LABS: Glucose Point of Care 276 mg/dL (70-110)
--- NOTE | 2024-11-26 14:50 | CTR_ITS ---
PROCEDURE INFORMATION: Exam: CT Head Without Contrast Exam date and time: 11/26/2024 3:55 PM Age: 54 years old Clinical indication: Altered mental status/memory loss; Confusion or disorientation; Additional info: AMS TECHNIQUE: Imaging protocol: Computed tomography of the head without contrast. Radiation optimization: All CT scans at this facility use at least one of these dose optimization techniques: automated exposure control; mA and/or kV adjustment per patient size (includes targeted exams where dose is matched to clinical indication); or iterative reconstruction. COMPARISON: MR head wo con* [id number] 08/19/2020 3:49 PM RADIATION DOSE METRICS: Total DLP (mGy-cm): 1037.08 FINDINGS: Brain: Normal. No hemorrhage. Unremarkable white matter. No mass effect. Cerebral ventricles: No ventriculomegaly. Paranasal sinuses: Visualized sinuses are unremarkable. No fluid levels. Mastoid air cells: Visualized mastoid air cells are well aerated. Bones: Unremarkable. No acute fracture. Soft tissues: Unremarkable. CT/CT head wo con* [id number] IMPRESSION: No acute intracranial abnormality.
[2024-11-26 15:17] LABS: ABG PCO2 30.1 mmHg (35-45); ABG PH Result 7.46 (7.35-7.45); Arterial Blood Gas Hematocrit 25.5 % (37-47); Blood Gas Allen Test Pos; Blood Gas Operator Identificat AMH; Blood Gas Sample Site Radial, left; Blood Gas Sample Type Arterial; HCO3 ABG 21.3 mmol/L (22-26); Oxygen Device NC; PO2 ABG 47.9 mmHg (80.0-100.0); PO2 FiO2 Ratio Arterial Blood 199
[2024-11-26] MEDS: cefTRIAXone 1,000 mg SDV 1000 MG IVP (16:10)
[2024-11-26] MEDS: AZITHROMYCIN ADD-Vantage 500 MG in 0.9% NaCl ADD-Vantage 250 ML 250 MG IV (16:10)
[2024-11-26] MEDS: diclofenac 1% Topical Gel 100 gm 1 APPLIC TOPICAL ×3 (16:11→21:35)
[2024-11-26 17:03] LABS: Blood Urea Nitrogen 9 mg/dL (6-20); Calcium 8.3 mg/dL (8.5-10.5); Carbon Dioxide 17 mmol/L (22-29); Chloride 102 mmol/L (98-107); Creatinine Clr Calc Pharmacy 118.8989; Glomerular Filtration Rate 103.4 mL/min (90-130); Glucose 173 mg/dL (65-115); Osmolality Calculated 277 mOsm/kg (285-295); Sodium 132 mmol/L (136-145)
[2024-11-26 17:08] LABS: Anion Gap 17.1 (5-19); Ketone (Acetest) Serum Negative (Negative); Potassium 4.1 mmol/L (3.5-5.1)
[2024-11-26 17:18] LABS: Glucose Point of Care 184 mg/dL (70-110)
--- NOTE | 2024-11-26 17:19 | P.PN_ITS ---
Vitals/I&O/Wt Last Vital Signs Temp 98.6 F 11/26/24 11:30 Pulse 106 H 11/26/24 11:30 Resp 22 H 11/26/24 11:30 BP 122/71 11/26/24 11:30 Pulse Ox 91 11/26/24 11:30 O2 Del Method Room Air 11/26/24 11:30 O2 Flow Rate 2 11/26/24 08:00 11/26/24 11/26/24 11/26/24 06:59 14:59 22:59 Intake Total 340 / 340 Output Total 250 / 1700 Balance -250 / -1170 340 / 340 Weight last 48 hrs Weight 94.347 kg Weight 94.347 kg Physical Exam 2 Const: COMMON NORMALS: no acute distress EXAM LIMITATIONS: altered mental status ORIENTATION/CONSCIOUSNESS: Yes awake, Yes oriented to person and Yes oriented to place Resp: COMMON NORMALS: normal respiratory effort, No retractions, No use of accessory muscles and clear to auscultation bilaterally AUSCULTATION: clear to auscultation bilaterally Cardio: COMMON NORMALS: regular rate, regular rhythm, S1 normal heart sound present and S2 normal heart sound present RATE: regular rate RHYTHM: r egular rhythm HEART SOUNDS: S1 normal heart sound present and S2 normal heart sound present GI: COMMON NORMALS: Normal to inspection, nondistended, normoactive bowel sounds present and non-tender Extremity: COMMON NORMALS: no pedal edema Neuro: COMMON NORMALS: CN's II-XII intact bilaterally and moves all extremities SENSORIUM/ORIENTATION: Yes oriented to person and Yes oriented to place Urinary Catheter Management: Dent: Cath Placed During This Visit: yes Reason for Continuing Indwelling Catheter: Other Urinary Catheter Date of Insertion: 11/23/24 Urinary Catheter Time of Insertion: 03:58 Data 11/26/24 04:54 11/26/24 16:25 A&P Assessment and plan (1) Fracture of femoral neck, right, closed: (2) Dislocation of internal right hip prosthesis, initial encounter: Plan Erin Kelley is a 54 yo woman w/ 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 femoral neck fracture due to a mechanical fall on 11/10/2024 s/p R. hip replacement, Seropositive Rheumatoid Arthritis, Portal vein thrombosis, & IDDM2, who presented to the ED on 11/22/2024 w/ complaints that she had broken her R. hip. # Altered mental status -Potential related to pneumonia -Potentially related to hyperglycemia - CT head - Neurochecks - NIH stroke scale # Acute anemia - Eliquis therapy has been held - Switch to DVT prophylaxis Lovenox #Periprosthetic fracture of the R. proximal femoral stem after R. hip arthroplasty 11/12/2024 #R. hip dislocation after R. hip arthroplasty 11/12/2024 - Orthopedic surgery consulted - Pain control - lovenox for dvt prophylaxis # Pneumonia XR/XR chest 1V portable [id number] IMPRESSION: 1. Mild right perihilar infiltrate. - Start Rocephin, Zithromycin #Hypokalemia:resolved #IDDM2: Now with hyperglycemia on high-dose sliding scale - At home patient takes Lantus 50 units at bedtime, with lispro 14 units subcu 3 times daily - On high-dose sliding scale - Add Lantus 25 units twice daily #Portal vein thrombosis, in 2017 - Has been on Eliquis for a few years -Patient does not have any history of prothrombotic condition or thrombophilia #COPD, emphysema # History of spiculated mass right upper lobe -Patient will need to follow-up with oncology # History of left hemispheric stroke #Seropositive RA: On Tofacitinib #Anxiety d/o: Resume home meds #RLS: Continue Requip DVT ppx: Lovenox GI ppx: On PPI Plan for today altered mental status, neurochecks, NIH stroke scale, continue broad-spectrum antibiotic therapy, with hyperglycemia, increase Lantus to 25 units twice daily, sliding scale PDMP PDMP Reviewed: Not Reviewed Attestations 2 Medical Necessity Statement*: Patient requires hospitalization for altered mental status, acute anemia, insulin-dependent type 2 diabetes, portal vein thrombosis Diagnoses Closed fracture of neck of right femur, initial encounter S72.001A Encounter type: initial encounter Dislocation of internal right hip prosthesis, initial encounter T84.020A
--- NOTE | 2024-11-26 17:32 | USR_ITS ---
PROCEDURE INFORMATION: Exam: US Abdomen, Limited; Right Upper Quadrant Exam date and time: 11/26/2024 5:50 PM Age: 54 years old Clinical indication: Screening exam; Other: R/O portal vein thrombosis; Prior surgery; Surgery date: 6+ months; Surgery type: Cholecystectomy; Additional info: Portal nader thrombosis TECHNIQUE: Imaging protocol: Real time ultrasound of the abdomen with image documentation. Limited exam focused on the right upper quadrant. COMPARISON: US abdomen complete* [id number] 08/17/2020 1:02 PM FINDINGS: Liver: Mildly increased echogenicity. No masses. Liver measures 16.3 cm in length. Gallbladder: Normal. No gallstones. There is no gallbladder wall thickening. Biliary ducts: Normal. No stones. No dilation. Common bile duct measures 0.5 cm. Pancreas: Not well visualized due to shadowing from bowel gas.. Right kidney: Normal. No mass. No hydronephrosis. Right kidney measures 11.3 cm in length. Aorta: Distal aorta measures 1.2 cm in caliber. Inferior vena cava: Upper IVC measures 1.1 cm in caliber. Portal venous: Main portal vein: Main portal vein measures 0.8 cm in caliber. Hepatopetal flow visualized within the main portal vein. Velocity measures 26.6 cm/sec. US/US liver [id number] IMPRESSION: 1. No acute findings. 2. No definite portal vein thrombosis. Hepatopetal flow within the main portal vein.
--- NOTE | 2024-11-26 19:56 | PC.NURSE ---
notified Dr. Lane this afternoon due to patient not really acting herself. She was very drowsy took a lot to get patient to say her name and date and . Temp 98.2, pulse rate 91, resp 16, O2 91 on 1L, BP 130/70.
[2024-11-26 20:15] LABS: Glucose Point of Care 162 mg/dL (70-110)
[2024-11-26] MEDS: sertraline 100 mg Tablet PO (21:34)
[2024-11-26] MEDS: MELATONIN 3 MG TABLET PO (21:34)
[2024-11-26] MEDS: ropinirole 2 mg Tablet 3 MG PO (21:35)
[2024-11-26] MEDS: tamsulosin 0.4 mg Capsule PO (21:35)
[2024-11-27] VITALS (14 sets, daily range): BP systolic 110–136; BP diastolic 50–76; PULSE 0–92; RESP 16–20; TEMP 36.7–37; O2SAT 94–100
--- NOTE | 2024-11-27 00:16 | PC.NURSE ---
pt bladder scanned results in 135 ml of urine.
--- NOTE | 2024-11-27 02:04 | PC.NURSE ---
Repeat bladder scan shows 156 ml in bladder at this time.
[2024-11-27] MEDS: atorvastatin 40 mg Tablet 80 MG PO (05:39)
[2024-11-27 05:45] LABS: Basophils % 0.5 %; Eosinophils # 0.3 10^3/uL (0.0-0.8); Eosinophils % 3.9 %; Hematocrit 26.3 % (36-47); Lymphocytes # 1.3 10^3/uL (0.8-4.8); Lymphocytes % 15.3 %; Mean Corpuscular HGB Conc 29.7 g/dL (30-55); Mean Corpuscular Hemoglobin 27.7 pg (27-33); Mean Corpuscular Volume 93.3 fl (85-98); Mean Platelet Volume 9.6 fL (7.4-10.4); Monocytes # 0.4 10^3/uL (0.2-0.9); Monocytes % 4.4 %; Neutrophils # 6.39 10^3/uL (1.8-7.7); Neutrophils % 75.2 %; Nucleated Red Blood Cells % 0 %; Platelet Count 201 10^3/cmm (157-399); Red Blood Count 2.82 10^6/uL (3.85-5.65); Red Cell Distribution Width 15.2 % (12.1-15.1); White Blood Count 8.49 10^3/uL (3.29-11.43)
[2024-11-27 06:08] LABS: Alanine Aminotransferase 10 U/L (0-33); Albumin Level 2.2 g/dL (3.5-5.2); Alkaline Phosphatase 191 U/L (35-105); Anion Gap 15.4 (5-19); Aspartate Amino Transferase 11 U/L (0-32); Blood Urea Nitrogen 9 mg/dL (6-20); C Reactive Protein 60.7 mg/L (0.0-4.9); Calcium 7.9 mg/dL (8.5-10.5); Carbon Dioxide 20 mmol/L (22-29); Chloride 100 mmol/L (98-107); Creatinine Clr Calc Pharmacy 118.8989; Globulin 3.3 g/dL (1.3-4.6); Glomerular Filtration Rate 103.4 mL/min (90-130); Glucose 189 mg/dL (65-115); Magnesium 1.8 mg/dL (1.7-2.3); Osmolality Calculated 278 mOsm/kg (285-295); Phosphorus 2.8 mg/dL (2.5-4.5); Potassium 3.4 mmol/L (3.5-5.1); Sodium 132 mmol/L (136-145); Total Bilirubin 0.4 mg/dL (0.15-1.2); Total Protein 5.5 g/dL (6.6-8.7)
[2024-11-27 06:15] LABS: Procalcitonin 0.47 ng/mL (0-0.5)
--- NOTE | 2024-11-27 06:31 | PC.NURSE ---
Bladder scan shows 215ml at this time.
[2024-11-27 06:58] LABS: Glucose Point of Care 233 mg/dL (70-110)
[2024-11-27] MEDS: insulin lispro 100 unit/1 mL SUBCUT ×2 (09:20→14:00)
[2024-11-27] MEDS: gabapentin 300 mg Capsule PO ×2 (09:21→16:15)
[2024-11-27] MEDS: aspirin 81 mg EC Tablet PO (09:21)
[2024-11-27] MEDS: enoxaparin 40 mg/0.4 mL Syringe SUBCUT (09:21)
[2024-11-27] MEDS: pantoprazole DR 40 mg Tablet PO (09:21)
[2024-11-27] MEDS: diclofenac 1% Topical Gel 100 gm 1 APPLIC TOPICAL (09:22)
[2024-11-27] MEDS: insulin glargine 100 units/1 mL 25 UNIT SUBCUT (11:15)
[2024-11-27] MEDS: oxyCODONE-APAP 5-325 mg Tablet 1 TAB PO ×2 (12:02→17:43)
--- NOTE | 2024-11-27 12:40 | PM.DCS ---
Discharge Providers Date of Admission: 11/23/24 01:14 Date of Discharge: November 27, 2024 Attending Provider at Admission: Emily Pino MD Attending Provider at Discharge: Jaydon Lane MD Primary Care Provider: Nel Peacock MD Diagnoses at Discharge Discharge Diagnosis (1) Fracture of femoral neck, right, closed: Status: Acute Qualifiers: Encounter type: initial encounter Qualified Code(s): S72.001A - Fracture of unspecified part of neck of right femur, initial encounter for closed fracture (2) Dislocation of internal right hip prosthesis, initial encounter: Status: Acute Reason for Visit Reason for Visit: RT Hip Pain Hospital Course Hospital Course Erin Kelley is a 54 yo woman w/ 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 femoral neck fracture due to a mechanical fall on 11/10/2024 s/p R. hip replacement, Seropositive Rheumatoid Arthritis, Portal vein thrombosis, & IDDM2, who presented to the emergency room due to concerns for right hip pain Patient presented to [facility] for history of periprosthetic fracture of right proximal femur, with right hip arthroplasty 11/12/2024, with right hip dislocation, requiring orthopedic consultation,requiring right hip closed reduction. Patient tolerated procedure well, will be discharged to [facility] [place] inpatient rehab, discharged on aspirin 81 mg for DVT prophylaxis, follow-up with Dr. Taylor as outpatient, placed on posterior hip precautions, non weight bearing right leg Patient's hospitalization was complicated by altered mental status secondary to pneumonia, hyperglycemia. Patient received broad-spectrum antibiotic therapy, blood sugar control, overall clinically improved. On discharge patient is alert oriented x 3, following all commands Patient has a history of portal vein thrombosis, has been on Eliquis for the last 5 years, but has stopped taking the last 6 months as she was told to stop taking it Liver US US/US liver [id number] IMPRESSION: 1. No acute findings. 2. No definite portal vein thrombosis. Hepatopetal flow within the main portal vein. -Patient denies a history of thrombophilia or being diagnosed with familial hypercoagulability - We discussed the risks and benefits of anticoagulant therapy - Discussed that generally for portal vein thrombosis anticoagulation is recommended for 6 months for patients without a personal history of hypercoagulability/thrombophilia -Patient did develop acute anemia necessitating holding full dose anticoagulant therapy during hospitalization - Nonetheless discussed risk of benefits of anticoagulant therapy, shared decision making, she voiced understanding, all questions answered, agreed to discontinue Eliquis for now - Follow-up with primary care For her acute on chronic anemia - Her full dose anticoagulant therapy had to be held during her hospitalization - Eliquis has been discontinued on discharge as above - Has evidence of early iron deficiency anemia - Nonetheless no hemodynamic compromise, no bloody or black stools - Will discharge on Protonix, Carafate - With a close follow-up with hematology oncology as outpatient - Follow-up with general surgery as outpatient for consideration of EGD She has a history of spiculated mass right upper lobe, patient will need to follow-up with oncology as outpatient For insulin-dependent type 2 diabetes mellitus will be discharged on - High-dose sliding scale - Lantus 25 units twice daily -monitor for hypoglycemia Physical Exam Const: COMMON NORMALS: no acute distress and patient oriented x3 Resp: COMMON NORMALS: normal respiratory effort, No retractions, No use of accessory muscles and clear to auscultation bilaterally AUSCULTATION: clear to auscultation bilaterally Cardio: COMMON NORMALS: regular rate, regular rhythm, S1 normal heart sound present and S2 normal heart sound present RATE: regular rate RHYTHM: regular rhythm HEART SOUNDS: S1 normal heart sound present and S2 normal heart sound present GI: COMMON NORMALS: Normal to inspection, nondistended, normoactive bowel sounds present and non-tender Extremity: COMMON NORMALS: no pedal edema Neuro: COMMON NORMALS: patient oriented x3 Psych: COMMON NORMALS: mental status grossly normal Urinary Catheter Management: Dent: Cath Placed During This Visit: yes Reason for Continuing Indwelling Catheter: Other Urinary Catheter Date of Insertion: 11/23/24 Urinary Catheter Time of Insertion: 03:58 Discharge Data Studies Completed and Pending Completed Studies During Hospitalization Category Date Time Status CT head wo con* [id number] Routine Cat Scan 11/26/24 14:[address] hip RT wo con* [id number] Routine Cat Scan 11/24/24 08:35 Completed CXRP [XR chest 1V portable [id number]] Stat Exams 11/22/24 22:51 Completed XR chest 1V portable [id number] Routine Exams 11/26/24 09:23 Completed XR hip RT 2-3V wo/w pel* [id number] Stat Exams 11/22/24 20:47 [place] liver [id number] Routine Ultrasound 11/26/24 17:32 Completed Pending at discharge Category Date Time Status XR hip RT 2-3V wo/w pel* [id number] Routine Exams 11/25/24 00:00 Taken Blood Culture Stat Lab 11/23/24 04:15 Results C Reactive Protein AM LABS Lab 11/28/24 04:00 Ordered C Reactive Protein AM LABS Lab 11/29/24 04:00 Ordered Complete Blood Count w/Auto AM LABS Lab 11/28/24 04:00 Ordered Complete Blood Count w/Auto AM LABS Lab 11/29/24 04:00 Ordered Comprehensive Metabolic Panel AM LABS Lab 11/28/24 04:00 Ordered Comprehensive Metabolic Panel AM LABS Lab 11/29/24 04:00 Ordered Magnesium AM LABS Lab 11/28/24 04:00 Ordered Magnesium AM LABS Lab 11/29/24 04:00 Ordered Occult Blood Stool [Immunochemical Fecal OCB] Stat Lab 11/27/24 07:33 Uncollected Phosphorus AM LABS Lab 11/28/24 04:00 Ordered Phosphorus AM LABS Lab 11/29/24 04:00 Ordered Procalcitonin AM LABS Lab 11/28/24 04:00 Ordered Procalcitonin AM LABS Lab 11/29/24 04:00 Ordered Radiology Impressions Hip CT 11/24/24 08:35 IMPRESSION: 1. Recent right hip arthroplasty. No hardware complication is seen. 2. No periprosthetic fracture is identified. 3. Large, incompletely visualized hematoma in the lateral subcutaneous tissues. 4. Acute strain of the right piriformis muscle. Chest X-Ray 11/26/24 09:23 IMPRESSION: 1. Mild right perihilar infiltrate. 2. Chronic interstitial prominence. Head CT 11/26/24 14:50 IMPRESSION: No acute intracranial abnormality. Liver Ultrasound 11/26/24 17:32 IMPRESSION: 1. No acute findings. 2. No definite portal vein thrombosis. Hepatopetal flow within the main portal vein. Laboratory Results WBC 8.49 10^3/uL (3.29-11.43) 11/27/24 05:24 RBC 2.82 10^6/uL (3.85-5.65) L 11/27/24 05:24 Hgb 7.80 g/dL (11.27-16.99) L 11/27/24 05:24 Hct 26.3 % (36-47) L 11/27/24 05:24 MCV 93.3 fl (85-98) 11/27/24 05:24 MCH 27.7 pg (27-33) 11/27/24 05:24 MCHC 29.7 g/dL (30-55) L 11/27/24 05:24 RDW 15.2 % (12.1-15.1) H 11/27/24 05:24 Plt Count 201 10^3/cmm (157-399) 11/27/24 05:24 MPV 9.6 fL (7.4-10.4) 11/27/24 05:24 Neut % (Auto) 75.2 % 11/27/24 05:24 Lymph % (Auto) 15.3 % 11/27/24 05:24 [place] % (Auto) 4.4 % 11/27/24 05:24 Eos % (Auto) 3.9 % 11/27/24 05:24 Baso % (Auto) 0.5 % 11/27/24 05:24 Reticulocyte % (Auto) 6.1 % (0.5-2.0) H 11/23/24 04:18 Neut # (Auto) 6.39 10^3/uL (1.8-7.7) 11/27/24 05:24 Lymph # (Auto) 1.3 10^3/uL (0.8-4.8) 11/27/24 05:24 [place] # (Auto) 0.4 10^3/uL (0.2-0.9) 11/27/24 05:24 Eos # (Auto) 0.3 10^3/uL (0.0-0.8) 11/27/24 05:24 Baso # (Auto) 0.0 10^3/uL (0.0-0.1) 11/27/24 05:24 Nucleated RBC % (auto) 0 % 11/27/24 05:24 Nucleated RBCs # 0.0 /100WBC 11/27/24 05:24 Haptoglobin 172.0 mg/L (30-200) 11/23/24 04:18 PT 13.90 SECONDS (12.1-14.9) 11/24/24 04:25 INR 1.00 (0.8-1.2) 11/24/24 04:25 APTT 40.8 SECONDS (23.9-36.7) H 11/24/24 04:25 Specimen Type Arterial 11/26/24 15:05 Sample Site Radial, left 11/26/24 15:05 ABG pH 7.46 (7.35-7.45) H 11/26/24 15:05 ABG pCO2 30.1 mmHg (35-45) L 11/26/24 15:05 ABG pO2 47.9 mmHg (80.0-100.0) L 11/26/24 15:05 ABG PO2/FiO2 Ratio 199 11/26/24 15:05 ABG HCO3 21.3 mmol/L (22-26) L 11/26/24 15:05 ABG Base Excess -2.0 mmol/L (-2.0-2.0) 11/26/24 15:05 Vishal Test Pos 11/26/24 15:05 Hematocrit 25.5 % (37-47) L 11/26/24 15:05 O2 Delivery Device Nc 11/26/24 15:05 O2 Liters/Min 1.0 % 11/26/24 15:05 FiO2 24.0 % 11/26/24 15:05 Concrete Tile Machine Operator ID Amh 11/26/24 15:05 Sodium 132 mmol/L (136-145) L 11/27/24 05:24 Potassium 3.4 mmol/L (3.5-5.1) L 11/27/24 05:24 Chloride 100 mmol/L (98-107) 11/27/24 05:24 Carbon Dioxide 20 mmol/L (22-29) L 11/27/24 05:24 Anion Gap 15.4 (5-19) 11/27/24 05:24 BUN 9 mg/dL (6-20) 11/27/24 05:24 Creatinine 0.6 mg/dL (0.5-0.9) 11/27/24 05:24 GFR Calculation 103.4 mL/min (90-130) 11/27/24 05:24 Glucose 189 mg/dL (65-115) H 11/27/24 05:24 POC Glucose 233 mg/dL (70-110) H 11/27/24 06:28 Calculated Osmolality 278 mOsm/kg (285-295) L 11/27/24 05:24 Lactic Acid 1.0 mmol/L (0.5-2.2) 11/23/24 04:15 Calcium 7.9 mg/dL (8.5-10.5) L 11/27/24 05:24 Phosphorus 2.8 mg/dL (2.5-4.5) 11/27/24 05:24 Magnesium 1.8 mg/dL (1.7-2.3) 11/27/24 05:24 Iron 16 ug/dL (37-145) L 11/23/24 04:18 TIBC 191 mcg/dl 11/23/24 04:18 % Saturation 8.3 % (20-50) L 11/23/24 04:18 Unsat Iron Binding 175 ug/dL (112-347) 11/23/24 04:18 Ferritin 133 ng/mL (15-150) 11/23/24 04:18 Total Bilirubin 0.4 mg/dL (0.15-1.2) 11/27/24 05:24 AST 11 U/L (0-32) 11/27/24 05:24 ALT 10 U/L (0-33) 11/27/24 05:24 Alkaline Phosphatase 191 U/L (35-105) H 11/27/24 05:24 Lactate Dehydrogenase 413 U/L (135-214) H 11/23/24 04:18 C-Reactive Protein 60.7 mg/L (0.0-4.9) H 11/27/24 05:24 Total Protein 5.5 g/dL (6.6-8.7) L 11/27/24 05:24 Albumin 2.2 g/dL (3.5-5.2) L 11/27/24 05:24 Globulin 3.3 g/dL (1.3-4.6) 11/27/24 05:24 Vitamin B12 1124 pg/mL (232-1245) 11/23/24 04:18 Folate > 20.0 ng/mL (4.8-37.3) 11/23/24 04:18 Procalcitonin 0.47 ng/mL (0-0.5) 11/27/24 05:24 Urine Color Yellow (Yellow) 11/26/24 08:55 Urine Appearance Clear (CLEAR) 11/26/24 08:55 Urine pH 5.5 (5-7) 11/26/24 08:55 Ur Specific Lan[place] 1.026 (1.005-1.030) 11/26/24 08:55 Urine Protein Trace (Negative) A 11/26/24 08:55 Urine Glucose (UA) 3+ (Normal) H 11/26/24 08:55 Urine Ketones 4+ (Negative) 11/26/24 08:55 Urine Blood Non-haemolysed trace (Negative) 11/26/24 08:55 Urine Nitrate Negative (Negative) 11/26/24 08:55 Urine Bilirubin Negative (Negative) 11/26/24 08:55 Urine Urobilinogen 0.2 mg/dL (Negative) 11/26/24 08:55 Ur Leukocyte Esterase Negative (Negative) 11/26/24 08:55 Urine RBC 0-2 /hpf (0-2) 11/26/24 08:55 Urine WBC 6-10 /hpf (0-5) 11/26/24 08:55 Ur Squamous Epith Cells 0-5 /hpf (0-5) 11/26/24 08:55 Amorphous Sediment Not Reportable 11/26/24 08:55 Urine Bacteria None seen /hpf (NONE) 11/26/24 08:55 Hyaline Casts 2.87 /lpf 11/26/24 08:55 Urine Yeast 1+ /hpf H 11/26/24 08:55 Serum Ketones Negative (Negative) 11/26/24 16:25 C. difficile (PCR) Negative (Negative) 11/26/24 00:55 Vitals Last Vital Signs Temp 98.1 F 11/27/24 11:23 Pulse 75 11/27/24 11:23 Resp 16 11/27/24 12:02 BP 135/76 11/27/24 11:23 Pulse Ox 97 11/27/24 11:23 O2 Del Method Nasal Cannula 11/27/24 11:23 O2 Flow Rate 3 11/27/24 11:23 Discharge Plan Discharge Patient Disposition: Xfer [facility] Condition: Stable Prescriptions: New insulin lispro [Humalog U-100 Insulin] 100 unit/mL Solution See Rx Instructions .ROUTE .COMPLEX Qty: 10 0RF Rx Instructions: Inject 3 times daily, after meals, based on high-dose insulin sliding scale amoxicillin-pot clavulanate 875-125 mg tablet 1 tab PO BID 6 Days Qty: 12 0RF insulin glargine [Lantus U-100 Insulin] 100 unit/mL Solution 25 unit SUBCUT Q12H 30 Days Qty: 15 0RF polyethylene glycol 3350 17 gram Powder In Packet 17 g PO DAILY 30 Days Qty: 30 0RF Continued omeprazole 40 mg capsule,delayed release(DR/EC) 40 mg PO QAM rosuvastatin [Crestor] 20 mg tablet 20 mg PO QAM tamsulosin [Flomax] 0.4 mg capsule 0.4 mg PO BEDTIME alprazolam 0.25 mg tablet 0.25 mg PO DAILY PRN (Reason: anxiety) prednisone 5 mg tablet 5 mg PO DAILY PRN (Reason: flares) Qty: 60 1RF prednisone 10 mg tablet See Rx Instructions PO DAILY Qty: 30 1RF Rx Instructions: take 1 tab daily for 3-7 days prn joint pain flare. orally daily; Monitor blood sugars nitroglycerin [Nitrostat] 0.4 mg tablet, sublingual 0.4 mg SUBLINGUAL Q5M PRN (Reason: chest pain) 30 Days Qty: 25 6RF Rx Instructions: until response; do not exceed 3 doses per episode Combivent Respimat 20-100 mcg/actuation mist 1 puff INHALATION Q6H PRN (Reason: Shortness Of Breath) Qty: 4 6RF albuterol sulfate 2.5 mg /3 mL (0.083 %) Solution For Nebulization 2.5 mg INHALATION Q6H PRN (Reason: Shortness Of Breath) aspirin 81 mg Tablet,Delayed Release (Dr/Ec) 81 mg PO DAILY@0800 ropinirole 3 mg tablet 3 mg PO BEDTIME acetaminophen 500 mg Tablet 1,000 mg PO Q12H PRN (Reason: Pain) magnesium hydroxide [Milk of Magnesia] 400 mg/5 mL Suspension 30 ml PO DAILY PRN (Reason: Constipation) folic acid 1 mg Tablet 1 mg PO QAM guaifenesin [Mucinex] 600 mg Tablet Extended Release 12hr 600 mg PO Q12H PRN (Reason: Congestion) cetirizine 10 mg tablet 10 mg PO DAILY ramipril 5 mg capsule 5 mg PO DAILY potassium chloride 20 mEq tablet extended release 20 meq PO DAILY melatonin 5 mg Tablet,Disintegrating 5 mg PO DAILY cholecalciferol (vitamin D3) [Vitamin D3] 125 mcg (5,000 unit) Tablet 125 mcg PO DAILY gabapentin 300 mg capsule 300 mg PO TID sertraline [Zoloft] 100 mg tablet 100 mg PO QAM Changed oxycodone 10 mg tablet 5 mg PO Q4H PRN (Reason: Pain) 5 Days Qty: 15 0RF Held Xeljanz 5 mg tablet 5 mg PO BID Qty: 60 5RF Hold Instructions: Resume on 12/04/24. hold until you see rheumatology Otezla 30 mg tablet 30 mg PO BID Qty: 60 5RF Hold Instructions: Resume on 12/09/24. hold until you see rheumatology Discontinued diclofenac sodium [Voltaren Arthritis Pain] 1 % gel 4 g topical QID Qty: 100 3RF Rx Instructions: apply to single elbow, wrist or hand; for hand includes palm/fingers/back of hand cefdinir 300 mg capsule 300 mg PO Q12H insulin lispro 100 unit/mL insulin pen 14 unit SUBCUT TID insulin glargine [Lantus Solostar U-100 Insulin] 100 unit/mL (3 mL) insulin pen 50 unit SUBCUT BEDTIME No Action (DME) Knee Walker See Rx Instructions .Route .MEDSUPPLY Qty: 1 0RF Rx Instructions: As directed HOME- Patient has been instructed to be non-weight bearing to the Right Lower Extremity. Discharge Orders: Discharge Order (Routine); Ordered 11/27/24 Ordered By: Jaydon Lane Referrals: Nel Peacock MD [Primary Care Provider, Internal Medicine] Referral Note: We have notified your physician's clinic of the need for a follow-up appointment to be scheduled. If you have not heard from them within the next 2 business days, please call them directly. Volodymyr Weaver MD [Physician, General Surgery] - 1 month Referral Note: Curtis Pope DO [Physician, Orthopedics] - 12/03/24 11:15 am Discharge Diet: Diabetic Discharge Activity: Resume usual activity Patient Instructions: Acute Wound Care (DC), Opioid Safety, Post Anesthesia Care Activity Restrictions/Additional Instructions: Posterior hip precautions Hip abduction brace on at all times when in bed Nonweightbearing right lower extremity Please have your primary care provider recheck your hemoglobin in 24 to 48 hours -Please monitor your blood sugars closely -Monitor your blood sugars 3 times daily as after meals -Please record your blood sugars, and a blood sugar log -For your NovoLog -Please inject blood sugar after meals based on sliding scale provided -Do not inject insulin if you do not eat as hypoglycemia kills -This is a NovoLog sliding scale -Insulin sliding ?fingerstick? Insulin ?141-180?0 units/sq 181-220?2 units/sq ?221-260?4 units/sq ?261-300 6 units/sq ?301-350?8 units/sq ?351-400 10 units/sq ?401-450?12 units/sq >450? 14units/sq -If your blood sugar is greater than 500 go to the emergency room -If your blood sugar is less than 60 or at anytime you feel lightheaded or dizzy or diaphoretic or have chest palpitations check your blood sugar, and eat a hard candy or drink orange juice and go immediately to the emergency room -Remember hypoglycemia kills, so if his blood sugar is less than 60 we have to increase it by taking in a sugary meal such as a hard candy or orange juice and go to the emergency room -If you have any questions please call us where here to help Discharge Attestations Time Spent in Discharge Care*: greater than 30 min Status at Discharge: Cognitive status at discharge: cognitively intact, Behavioral status at discharge: cooperative, Quality Metrics Clinical Quality Measures [ No reported AMI, CVA or VTE this stay] Coding Level of Care Code 79052 Total time (in minutes) for Discharge: 45 Diagnoses Closed fracture of neck of right femur, initial encounter S72.001A Encounter type: initial encounter Dislocation of internal right hip prosthesis, initial encounter T84.020A
[2024-11-27 21:13] LABS: Glucose Point of Care 54 mg/dL (70-110)
[2024-11-27 21:13] LABS: Glucose Point of Care 51 mg/dL (70-110)
[2024-11-27 21:14] LABS: Glucose Point of Care 335 mg/dL (70-110)
[2024-11-27 21:14] LABS: Glucose Point of Care 88 mg/dL (70-110)
== END 2024-11-27 17:50 | DRG 535 ==
LOC: ER 11-23 01:15 → MEDSURG 11-23 01:24
PROVIDERS: Orthopaedic Surgery; Student in an Organized Health Care Education/Training Program; Admitting Provider Internal Medicine; Emergency Provider Emergency Medicine; PCP Internal Medicine; Visit Provider Family Medicine
PROC: 0QS6XZZ Reposition Right Upper Femur, External Approach (ICD-10-PCS; principal; 2024-11-24 08:00)
DX: S72.001A Fracture of unspecified part of neck of right femur, initial encounter for closed fracture (principal); I81 Portal vein thrombosis; J18.9 Pneumonia, unspecified organism; M97.01XA Periprosthetic fracture around internal prosthetic right hip joint, initial encounter; D84.9 Immunodeficiency, unspecified; R65.10 Systemic inflammatory response syndrome (SIRS) of non-infectious origin without acute organ dysfunction; N39.0 Urinary tract infection, site not specified; T84.020A Dislocation of internal right hip prosthesis, initial encounter; Z79.899 Other long term (current) drug therapy; Z79.4 Long term (current) use of insulin; Z79.82 Long term (current) use of aspirin; Z79.01 Long term (current) use of anticoagulants; J44.9 Chronic obstructive pulmonary disease, unspecified; J43.9 Emphysema, unspecified; M06.9 Rheumatoid arthritis, unspecified; F17.210 Nicotine dependence, cigarettes, uncomplicated; E11.610 Type 2 diabetes mellitus with diabetic neuropathic arthropathy; W19.XXXA Unspecified fall, initial encounter; E87.6 Hypokalemia; F41.9 Anxiety disorder, unspecified; E11.65 Type 2 diabetes mellitus with hyperglycemia; R19.7 Diarrhea, unspecified; G25.81 Restless legs syndrome; Z91.030 Bee allergy status; Z88.8 Allergy status to other drugs, medicaments and biological substances
CPT/HCPCS: 36415; 36416; 36600; 51702; 70450; 71045; 73502; 73700; 76000; 76705; 80048; 80053; 81001; 82009; 82274; 82607; 82728; 82746; 82803; 82962; 83010; 83540; 83550; 83605; 83615; 83735; 84100; 84145; 85025; 85045; 85610; 85730; 86140; 87040; 87086; 87493; 94640; 94664; 96372; 96374; 96375; 96376; 97110; 97161; 97530; 97760; 99285; J0330; J0456; J0696; J1171; J1650; J1815; J2270; J2405; J2470; J2543; J2704; J3010; J3490; J7030; J7050; J7799; J9999; L1686

== ENCOUNTER → 2024-12-23 14:14 | Outpatient (BNVA) | payer MEDICAID, SELFPAY | PROVIDERS: PCP Internal Medicine; Visit Provider Orthopaedic Surgery | DX: T84.021D Dislocation of internal left hip prosthesis, subsequent encounter (principal); Z96.641 Presence of right artificial hip joint; X58.XXXD Exposure to other specified factors, subsequent encounter | CPT/HCPCS: 73502; 99024 ==

== ENCOUNTER 2024-12-31 08:38 | Outpatient (CLI) | payer MEDICAID, SELFPAY ==
--- NOTE | 2024-12-31 08:42 | MM_ITS ---
WS: [id number] BILATERAL SCREENING DIGITAL TOMOSYNTHESIS MAMMOGRAM WITH CAD HISTORY: SCREENING COMPARISON: 08/23/2023, 12/15/2021 Bilateral CC and MLO views with tomosynthesis and synthetic mammography submitted. Computer aided detection analyzed. Breast composition: The breasts are almost entirely fatty. No suspicious masses, microcalcifications or architectural distortion. Benign scattered calcifications in each breast. MM/MM scr BI tomosynthesis [id number] IMPRESSION: BI-RADS: 2 - Benign. FOLLOW UP: 1 Year Follow-up
== END 2024-12-31 08:39 | disposition home or self-care (01) ==
PROVIDERS: PCP Internal Medicine; Visit Provider Internal Medicine
DX: Z12.31 Encounter for screening mammogram for malignant neoplasm of breast (principal); R92.313 Mammographic fatty tissue density, bilateral breasts; R92.1 Mammographic calcification found on diagnostic imaging of breast
CPT/HCPCS: 77063; 77067

== ENCOUNTER → 2025-01-01 10:51 | Outpatient (BNVA) | payer MEDICAID, SELFPAY | PROVIDERS: PCP Internal Medicine; Visit Provider Internal Medicine Rheumatology | DX: M05.79 Rheumatoid arthritis with rheumatoid factor of multiple sites without organ or systems involvement (principal); Z79.899 Other long term (current) drug therapy; Z71.85 Encounter for immunization safety counseling; M79.7 Fibromyalgia; L40.0 Psoriasis vulgaris | CPT/HCPCS: 99214 ==

== ENCOUNTER → 2025-01-06 08:31 | Outpatient (BNVA) | payer MEDICAID, SELFPAY | PROVIDERS: PCP Internal Medicine; Visit Provider Orthopaedic Surgery | DX: Z98.890 Other specified postprocedural states (principal); Z96.649 Presence of unspecified artificial hip joint | CPT/HCPCS: 73502; 99024 ==

== ENCOUNTER → 2025-01-23 09:48 | Outpatient (BNVA) | payer MEDICAID, SELFPAY | PROVIDERS: PCP Internal Medicine; Visit Provider Orthopaedic Surgery | DX: M25.551 Pain in right hip (principal); T84.021D Dislocation of internal left hip prosthesis, subsequent encounter; Z96.641 Presence of right artificial hip joint; X58.XXXD Exposure to other specified factors, subsequent encounter; Z89.511 Acquired absence of right leg below knee | CPT/HCPCS: 73502; 99024 ==

== ENCOUNTER 2025-01-24 09:10 | Outpatient (CLI) | payer MEDICAID, SELFPAY ==
--- NOTE | 2025-01-24 09:30 | PETR_ITS ---
PROCEDURE INFORMATION: Exam: PET/CT Skull Base to Mid-thigh Exam date and time: 01/24/2025 10:17 AM Age: 54 years old Clinical indication: Condition or disease; Additional info: Lung mass LABS AND CLINICAL REPORTS: Glucose: 120 mg/dl Treatment strategy for malignancy (PET staging): Initial Staging (PI) TECHNIQUE: Imaging protocol: Following at least four-hour fasting and following the injection of radiopharmaceutical, low dose CT images were obtained. Then, PET images were obtained. Attenuation corrected images were constructed using the CT scan. Fused images of PET and CT were reviewed. The standardized uptake values (SUV) reported below are maximum values within a region of interest, expressed in gm/ml. Exam includes orbital meatal line to mid-thigh. SUV normalization method: BodyWeight Radiopharmaceutical: 12.26 mCi F-18 FDG (Fluorodeoxyglucose), IV. Time of imaging post radiopharmaceutical administration: 48 minutes Injection site: L HAND COMPARISON: 1. PT PET Scan 09/19/2020 8:[address] of the right hip dated 11/24/2024. FINDINGS: Brain: Visualized brain has normal physiologic uptake. Pharynx: No abnormal uptake. Larynx: No abnormal uptake. Lungs, pleura and trachea: Linear masslike consolidation along the anterior right upper lobe and overlying the minor fissure. This consolidation appears increased in size compared to the prior study from 11/13/2024, now measuring 4.7 x 2.5 cm (previously 3.2 x 1.7 cm) and demonstrates avid internal FDG uptake, maximum SUV 10.6. Compared to the prior PET-CT from 2020, this area of consolidation is new, but previously noted areas of increased uptake throughout the pericardium and pleura has since resolved. Heart: Normal physiologic uptake. Severe coronary artery calcifications. Mediastinal space: No abnormal uptake. Hilar and mediastinal calcified lymph nodes, suggestive of prior granulomatous organism exposure. Scattered prominent hilar lymph nodes are not FDG avid. Liver: No abnormal uptake. Gallbladder and biliary ducts: No abnormal uptake. Pancreas: No abnormal uptake. Spleen: No abnormal uptake. Adrenal glands: No abnormal uptake. Kidneys and ureters: Normal physiologic uptake. Stomach and bowel: No abnormal uptake. Vasculature: No abnormal uptake. Lymph nodes: FDG avid right inguinal lymphadenopathy, with lymph nodes measuring up to 1.3 cm in short axis, maximum SUV 5.6. No FDG avid lymphadenopathy in the head, neck, chest or abdomen. Skeleton: Status post right total hip arthroplasty. There is increased FDG uptake surrounding the arthroplasty, where there is a large amount of fluid and inflammatory stranding, maximum SUV 4.8. The degree of inflammation is similar compared to a prior study from 11/24/2024. Soft tissues: Small gas and fluid containing collection within the soft tissues of the right hip/gluteal region measuring 2.8 x 4.3 cm with peripheral increased FDG uptake, maximum SUV 7.0. This collection is in the region of the previously noted hematoma on 11/24/2024. Impression. METRICS: Mediastinal blood pool: Mean SUV of 2.7 Liver uptake: Mean SUV of 3.0 PET/PET skull to thigh INIT [id number] IMPRESSION: 1. Anterior right upper lobe linear, FDG avid masslike consolidation, increased in size since 11/13/2024. Wall and inflammatory etiologies still a consideration given morphology, significant FDG avidity and growth does raise suspicion for neoplasm and neoplasia should be excluded. Consider tissue correlation. 2. Otherwise, previously noted areas of increased uptake throughout the chest noted on the prior PET-CT from 2020 have resolved. 3. Status post right hip total arthroplasty, with increased FDG uptake and inflammatory changes adjacent to the prosthesis. There is also a gas and fluid containing collection within the right gluteal soft tissues in the region of a previously noted hematoma. This may represent an infected hematoma. Correlate for signs of infection.
== END 2025-01-24 09:11 | disposition home or self-care (01) ==
LOC: RAD 09:10
PROVIDERS: PCP Internal Medicine; Visit Provider Internal Medicine
DX: R91.8 Other nonspecific abnormal finding of lung field (principal)
CPT/HCPCS: 78815; A9552

== ENCOUNTER → 2025-02-13 07:37 | Outpatient (BNVA) | payer MEDICAID, SELFPAY | PROVIDERS: PCP Internal Medicine; Referring Provider Nurse Practitioner Family; Visit Provider Internal Medicine | DX: R91.8 Other nonspecific abnormal finding of lung field (principal); J84.89 Other specified interstitial pulmonary diseases; M35.9 Systemic involvement of connective tissue, unspecified; J84.10 Pulmonary fibrosis, unspecified; J43.9 Emphysema, unspecified; R59.0 Localized enlarged lymph nodes | CPT/HCPCS: Q3014 ==

== ENCOUNTER 2025-02-18 12:00 | Outpatient (CLI) | payer MEDICAID, SELFPAY ==
[2025-02-18 12:31] VITALS: PULSE 79; RESP 18; O2SAT 98
== END 2025-02-18 12:01 | disposition home or self-care (01) ==
LOC: RT 02-22 12:06
PROVIDERS: Family Provider Internal Medicine; PCP Internal Medicine
DX: R06.02 Shortness of breath (principal)
CPT/HCPCS: 94060; 94726; 94729; J7613

== ENCOUNTER 2025-02-20 09:06 | Outpatient (CLI) | payer MEDICAID, SELFPAY ==
--- NOTE | 2025-02-20 09:15 | CT_ITS ---
WS: [id number] CT CHEST ION protocol TECHNIQUE: Noncontrast CT of the chest with ION protocol CLINICAL INFORMATION: lung mass COMPARISON: PET/CT 01/25/2025 DLP: [address] scans at [facility] use at least one of these dose optimization techniques: automated exposure control; mA and/or kV adjustment per patient size (includes targeted exams where dose is matched to clinical indication); or iterative reconstruction. FINDINGS: Large RIGHT upper lobe area of masslike consolidation is unchanged since the recent PET/CT. This was FDG-avid on the recent PET/CT. Advanced chronic emphysematous changes. Aortic calcification. Coronary calcification. No mediastinal or hilar lymphadenopathy. Calcified RIGHT hilar nodes. Adrenal glands are normal. Cholecystectomy. Splenic granulomas. No axillary lymphadenopathy. CT/CT chest ION (PULM ONLY) [id number] IMPRESSION: Images obtained for bronchoscopy planning and navigation purposes.
== END 2025-02-20 09:07 | disposition home or self-care (01) ==
LOC: RAD 09:07
PROVIDERS: Family Provider Internal Medicine; PCP Internal Medicine; Visit Provider Internal Medicine
DX: R91.8 Other nonspecific abnormal finding of lung field (principal); Z90.49 Acquired absence of other specified parts of digestive tract; J43.9 Emphysema, unspecified; K66.8 Other specified disorders of peritoneum
CPT/HCPCS: 71250

== ENCOUNTER → 2025-02-25 08:46 | Outpatient (BNVA) | payer MEDICAID, SELFPAY | PROVIDERS: Family Provider Internal Medicine; PCP Internal Medicine; Visit Provider Orthopaedic Surgery | DX: M25.551 Pain in right hip (principal); Z96.641 Presence of right artificial hip joint; J43.9 Emphysema, unspecified; J84.10 Pulmonary fibrosis, unspecified; J84.89 Other specified interstitial pulmonary diseases; M35.9 Systemic involvement of connective tissue, unspecified; R91.8 Other nonspecific abnormal finding of lung field | CPT/HCPCS: 36415; 73502; 82085; 82784; 82785; 83516; 84182; 86160; 86162; 86200; 86225; 86235; 86255; 86331; 86376; 86431; 86606; 86609; 99024 ==

== ENCOUNTER 2025-02-27 05:45 | Day surgery (SDC) | payer MEDICAID, SELFPAY ==
[2025-02-27] VITALS (12 sets, daily range): BP systolic 122–153; BP diastolic 65–94; PULSE 81–90; RESP 14–18; TEMP 36.1–36.6; O2SAT 92–99; BMI 31.1
--- NOTE | 2025-02-27 06:36 | ANES.PREANE2 ---
Pre-Anesthetic Assessment Height/Weight: Height 1.65 m Weight 84.822 kg Temp Pulse Resp BP Pulse Ox O2 Del Method 97.9 F 90 18 128/94 92 Room Air 02/27/25 06:23 02/27/25 06:23 02/27/25 06:23 02/27/25 06:23 02/27/25 06:23 02/27/25 06:23 Operation Date: 02/27/25 07:20 Proposed Procedures p Ion Robotic Bronchoscopy [id number](Not Applicable) - Odin Grayson MD s Ebus(Not Applicable) - Odin Grayson MD Familial anesthetic complications: none Was Beta Brooke taken within 24 hours: N/A Was Clonidine taken within 24 hours: N/A Last intake: Intake Last Liquid Date 02/26/25 Last Liquid Time 22:00 Last Solid Date 02/26/25 Last Solid Time 19:00 Social Tobacco and No alcohol Exam alert, oriented x 3, clear to auscultation bilaterally and regular rate & rhythm Airway Mallampati: Class II Dentition: other (none) Pulmonary Chronic Obstructive Pulmonary Disease CV/HEM Congestive Heart Failure and Peripheral Vascular Disease Hepatic Hepatitis Metabolic Diabetes Mellitus [facility] [place] Rheumatoid Arthritis Anesthetic Plan ASA status: 4 Anesthesia: General Risk of > 500 ml blood loss (7ml/kg in children): No Medications/Allergies Home Medications ?Medication ?Instructions ?Recorded ?Confirmed ?Last Taken ?Type omeprazole 40 mg capsule,delayed 40 mg PO QAM 09/05/19 02/26/25 02/26/25 History release nitroglycerin 0.4 mg sublingual 0.4 mg sublingual Q5M PRN chest 09/09/19 02/26/25 Unknown Rx tablet (Nitrostat) pain 30 days #25 tabs albuterol sulfate 2.5 mg/3 mL 2.5 mg inhalation Q6H PRN 04/01/20 02/26/25 12/14/22 History (0.083 %) solution for nebulization Shortness Of Breath aspirin 81 mg tablet,delayed 81 mg PO DAILY@0800 08/15/20 02/26/25 02/26/25 History release alprazolam 0.25 mg tablet 0.25 mg PO DAILY PRN anxiety 03/05/0102/26/25 02/25/25 History sertraline 100 mg tablet (Zoloft) 100 mg PO QAM 01/12/23 02/26/25 11/22/24 08:00 History acetaminophen 500 mg tablet 1,000 mg PO Q12H PRN Pain 03/07/23 02/26/25 Unknown History guaifenesin 600 mg tablet, 600 mg PO Q12H PRN Congestion 03/07/23 02/26/25 Unknown History extended release 12 hr (Mucinex) magnesium hydroxide 400 mg/5 mL 30 ml PO DAILY PRN Constipation 03/07/23 02/26/25 Unknown History oral suspension (Milk of Magnesia) ropinirole 3 mg tablet 3 mg PO BEDTIME 03/07/23 02/26/25 02/26/25 History cholecalciferol (vitamin D3) 125 125 mcg PO DAILY 11/23/24 02/26/25 11/22/24 History mcg (5,000 unit) tablet (Vitamin D3) insulin lispro 100 unit/mL See Rx Instructions .Route 11/27/24 02/26/25 02/26/25 Rx subcutaneous solution (Humalog .COMPLEX #10 mL U-100 Insulin) oxycodone 10 mg tablet 5 mg (1/2 x 10 mg) PO Q4H PRN Pain 11/27/24 02/26/25 02/27/25 Rx 5 days #15 tabs apremilast 30 mg tablet (Otezla) 30 mg PO BID #60 tabs 01/01/25 02/26/25 02/26/25 Rx tofacitinib 5 mg tablet (Xeljanz) 5 mg PO BID #60 tabs 01/01/25 02/26/25 02/26/25 Rx gabapentin 300 mg capsule 300 mg PO BID 02/13/25 02/26/25 02/27/25 History prednisone 10 mg tablet 10 mg PO DAILY PRN joint pain 02/13/25 02/26/25 Unknown History prednisone 5 mg tablet 5 mg PO DAILY flares 02/13/25 02/26/25 02/24/25 History ramipril 5 mg capsule 2.5 mg PO DAILY 02/13/25 02/26/25 02/25/25 History rosuvastatin 20 mg tablet (Crestor) 10 mg PO QAM 02/13/25 02/26/25 02/26/25 History cephalexin 500 mg capsule 500 mg PO TID #42 caps 02/25/25 02/26/25 02/26/25 Rx apixaban 5 mg tablet (Eliquis) 5 mg PO DAILY 02/26/25 02/26/25 02/18/25 History folic acid 1 mg tablet 1 mg PO DAILY 02/26/25 02/26/25 02/26/25 History insulin glargine 100 unit/mL (3 30 unit SUBCUT 02/26/25 02/26/25 History mL) subcutaneous pen (Lantus Solostar U-100 Insulin) ipratropium 20 mcg-albuterol 100 20 - 100 puff inhalation DAILY 02/26/25 02/26/25 Unknown History mcg/actuation mist for inhalation (Combivent Respimat) Allergies Allergy/AdvReac Type Severity Reaction Status Date / Time bee venom protein (honey bee) Allergy ALGY-Anaphy Verified 02/25/25 08:49 laxis topiramate (From Topamax) Allergy ADR-Halluci Ver[facility] 02/25/25 08:[facility] Medical History PVD (peripheral vascular disease) Tobacco abuse COPD (chronic obstructive pulmonary disease) Bronchitis Plaque psoriasis Immunization counseling High risk medication use Seropositive rheumatoid arthritis of multiple sites Closed fracture of right distal fibula Fall at home Closed fracture of right distal tibia Closed right ankle fracture Fracture of distal end of tibia with fibula Acute gout of right ankle Psoriasis Cigarette smoker motivated to quit Thrombocytopenia Rheumatoid arthritis Transaminitis Immunocompromised Chronic anticoagulation Portal vein thrombosis COVID-19 Syncope Seizures Onychodystrophy Rheumatoid arthritis Closed fracture of right distal fibula Emphysema/COPD Avulsion fracture of left ankle Essential hypertension Claudication Spondylosis of lumbar region without myelopathy or radiculopathy Long-term current use of opiate analgesic Pain, joint, multiple sites Osteoporosis Fibromyalgia Diabetes DDD (degenerative disc disease), cervical Cervical spondylosis Tobacco use disorder Surgical History (Updated 02/25/25 @ 10:06 by Cheng Mullen MD) Hx of right BKA S/P ANN-BSO S/P foot surgery Hx of section (~1989) Hx laparoscopic cholecystectomy H/O dilation and curettage Hx of hysterectomy Family History Mother Stroke Cancer SKIN CANCER Sister Stroke Other Diabetes Myocardial infarct Denies family history of Anesthesia complication Bleeding disorder Social History Smoking and tobacco/nicotine status: current every day tobacco/nicotine user (smoke 5 cigarettes ) cigarettes Packs smoked per day: 2 Years cigarettes smoked: 40 [ Other cigarette details: 10 cigarettes/day currently] Quit status (tobacco/nicotine): considering quitting Second hand smoke exposure: Yes Alcohol intake: former Substance/Drug Use: never Additional social history: Patient wants full code as discussed today 11/10/2024 but no prolonged CPR or life support Caregiver/support person: Yes Lives independently: Yes Household members: spouse Marital status: Current occupational status: disabled Pets and animals: Yes Do you think of yourself as: Straight/Heterosexual Current gender identity: Female Data Anesthesia Cardiac Studies: Echocardiogram 11/13/24 Echocardiogram Limited Views 10/21/20 Echocardiogram Ultrasound 08/14/20 Sestamibi Stress Test (Cardiology) 01/30/24 Holter Monitor 03/31/20
--- NOTE | 2025-02-27 07:39 | W.PM.OPSUD ---
Surgery/Procedure H&P Update DATE OF PROCEDURE: February 27, 2025 DATE H&P PERFORMED: 02/13/25 CHANGES TO PREVIOUS DOCUMENTATION: I have seen and examined the patient this morning. No significant changes since I have seen her in the clinic. Per ortho, no active infection. Discussed the benefits and risks with the patient and her and they agreed to proceed. PLANNED PROCEDURE: Operation Date: 02/27/25 07:20 Proposed Procedures p Ion Robotic Bronchoscopy [id number] [id number] [id number] 01208 [id number] [id number](Not Applicable) - Odin Grayson MD s Ebus(Not Applicable) - Odin Grayson MD
[2025-02-27] MEDS: lidocaine 2% INJ 20 mL XX (09:15)
--- NOTE | 2025-02-27 09:19 | XRR_ITS ---
PROCEDURE INFORMATION: Exam: XR Chest Exam date and time: 02/27/2025 9:47 AM Age: 54 years old Clinical indication: Device placement; Other: Post ion; Additional info: Post ion, pacu TECHNIQUE: Imaging protocol: Radiologic exam of the chest. Views: 1 view. COMPARISON: CT chest ION (PULM ONLY) [id number] 02/20/2025 9:31 AM FINDINGS: Lungs: Opacity in the inferior right upper lobe in a similar region to the masslike consolidation seen on CT from 02/20/2025. Coarsened interstitial lung markings. Pleural spaces: Vague opacity in the left costophrenic angle likely reflecting prominent epicardial fat versus small pleural effusion. No appreciable pneumothorax. Heart/Mediastinum: No cardiomegaly. Bones/joints: No acute osseous abnormality. Chronic appearing right rib fractures. XR/XR chest 1V portable [id number] IMPRESSION: 1. Opacity in the inferior right upper lobe is in a similar region to the masslike consolidation seen on CT from 02/20/2025. Current findings may reflect posttreatment change versus residual/recurrent infection or neoplasm. Recommend continued clinical and imaging follow up as indicated. 2. Coarsened interstitial lung markings likely reflecting chronic disease.
--- NOTE | 2025-02-27 09:23 | P.BOP_ITS ---
Interventional Pulmonary Immediate Brief Operative Note: * Date of Procedure:?02/27/2025 * Preoperative Diagnosis: Right upper lobe lung mass and mediastinal/hilar lymph adenopathy * Postoperative Diagnosis:?[Same as pre-op] * Procedures Performed: Navigational bronchosocpy and EBUS staging * Surgeon / Ornamental Plaster Sticker:?Odin Grayson MD * Anesthesia: * ?General anesthesia * Findings: Left upper lobe nodule and mediastinal lymphadenopathy * Estimated Blood Loss (EBL):?[Minimal] * Specimens: * RUL lobe BAL fluid * ?TBNA from station(s) RUL mass, 11L, 4L, 7, 4R, 11R * ?Forceps and cryo biopsy from RUL and station 7 * Brushing of RUL mass * Complications:?None * Disposition:?Transferred to PACU in stable condition. Odin Grayson MD, FACP Interventional Pulmonogist
--- NOTE | 2025-02-27 09:23 | W.PM.BPON ---
Interventional Pulmonary Immediate Brief Operative Note: Date of Procedure:?02/27/2025 Preoperative Diagnosis: Right upper lobe lung mass and mediastinal/hilar lymph adenopathy Postoperative Diagnosis:?[Same as pre-op] Procedures Performed: Navigational bronchosocpy and EBUS staging Surgeon / Ticket Writer:?Odin Grayson MD Anesthesia: ?General anesthesia Findings: Left upper lobe nodule and mediastinal lymphadenopathy Estimated Blood Loss (EBL):?[Minimal] Specimens: RUL lobe BAL fluid ?TBNA from station(s) RUL mass, 11L, 4L, 7, 4R, 11R ?Forceps and cryo biopsy from RUL and station 7 Brushing of RUL mass Complications:?None Disposition:?Transferred to PACU in stable condition. Odin Grayson MD, FACP Interventional Pulmonogist
--- NOTE | 2025-02-27 10:21 | P.OP_ITS ---
Operative Report Date of procedure: February 27, 2025 <Odin Grayson MD - Last Filed: 02/27/25 20:44> Pre-op diagnosis: Right lung mass <Odin Grayson MD - Last Filed: 02/27/25 20:44> Post-op diagnosis: Right lung mass Mediastinal/hilar lymphadenopathy <Odin Grayson MD - Last Filed: 02/27/25 20:44> Procedure done: Robotic bronchoscopy with EBUS staging <Odin Grayson MD - Last Filed: 02/27/25 20:44> Surgeon: Odin Grayson MD <Odin Grayson MD - Last Filed: 02/27/25 20:44> Estimated blood loss: Minimal <Odin Grayson MD - Last Filed: 02/27/25 20:44> Complications: None <Odin Grayson MD - Last Filed: 02/27/25 20:44> Findings: Procedure: Robotic bronchoscopy with complete mediastinal staging Attending: Odin Grayson MD, FACP, SAM Indication: Right upper lobe mass Anesthesia: General anesthesia per anesthesia team Procedure: Pre-Anesthesia Assessment Dodge Protocol: Pre-procedure Verification: Prior to the procedure, the patient's identity was confirmed using full name, date of , and medical record number. Identity verification included a review of all relevant medical records, history, physical examination, medications, allergies, and previous anesthesia tolerance. Risks, benefits, sedation options, and associated risks were reviewed with the patient, and informed consent was obtained after addressing all questions. Time-Out: Immediately before the procedure, a time-out was conducted to confirm patient identification, procedure details, consent, image labeling, and the need for prophylactic antibiotics. This was verified by the physician, nurse, anesthesiologist, and mail processing machine operator. Outcome: The procedure was completed without difficulty, and the patient tolerated it well. Findings: A thorough airway exam was performed after passage of the bronchoscope. The trachea was anatomically normal. The right sided airway was anatomically normal without endobronchial lesions. No significant secretions The left sided airway was anatomically normal without endobronchial lesions. No significant secretion The prior bronchoscope was removed from the airway. The Treedom Robotic Bronchoscopy platform was moved into place. The robotic bronchoscope was inserted into the endotracheal tube with care. The position of the bronchoscope was registered to a pre-existing CT scan using shape-sensing virtual bronchoscopy technology (69121). We navigated towards the lesion in the right upper lobe mass using a pre-planned route using virtual bronchoscopy Prior to sampling, confirmation of lesion location was done using: ?- Radial ultrasound probe with a concentric view (56496), ?- Fluroscopy with a tool overlying the lesion on at least one visual plane. ?- Virtual target located directly within the path of intended biopsy direction on EMN, ?- [facility] Beam intraoperative CT was performed 2 time(s).? The intraoperative CT imaging interpretation was utilized for guidance for needle placement. Imaging interpretation by me shows the persistent lesion as well as a tool within the lesion (91097) ?- CBCT data from the intraoperative imaging was integrated into the ION navigation software and the virtual lesion was updated. After confirming our location, we proceeded to sampling. - Transbronchial needle aspiraiton (TBNA) was performed of the lesion using the 23-gauge ION TBNA needle.? A total of 6 passes were formed. (34958) - Transbronchial biopsies of the lesion were performed using the captura 1.8 mm forceps and 1.1 cryoprobe).? A total of 12 samples were obtained. (96797) - Endobronchial brushings performed down the airway towards the lesion.? A total of 2 brushings were obtained. (22581) - A bronchoalveolar lavage was performed of the lobe containing the target lesion with 100 mL of saline instilled and 60 mL of effluent returned.? Additional rinse from the robotic bronchoscope lumen was added to the sample after removal of the scope. (03167) The prior bronchoscope was removed from the airway and the EBUS scope was inserted. A complete curvilinear EBUS procedure was performed of the following lymph nodes: Level 11L station was identified with the EBUS scope at the LLL/L hilum and 4 passes were made using a 22G Olympus TBNA needle. Level 4L station was identified with the EBUS scope at the lateral LMSB and 4 passes were made using a 22G Olympus TBNA needle.? Level 7 station was identified with the EBUS scope at the medial LMSB/RMSB and 4 passes were made using a 22G Olympus TBNA needle. Level 4R station was identified with the EBUS scope at the lateral RMSB and 4 passes were made using a 22G Olympus TBNA needle.? Level 11R station was identified with the EBUS scope at the RBI/R hilum and 4 passes were made using a 22G Olympus TBNA needle. Then using the EBUS TBNA needle, I created track in station 7 lymph node for the 1.1 cryoprobe and I performed transbronchial lymph node biopsy using that 1.1 cryoprobe and I obtained 4 samples. (39802) ? Minimal bleeding post cryobiopsy that required ice cold saline and 4 cc of topical epinephrine (1: 20,000 concentration). Then we achieved complete hemostasis. [place] Bleeding Scale Grade 2 Following completion of all diagnostic and therapeutic procedures, hemostasis was verified.? The scope was removed and procedure concluded. In summary, the following procedures were performed: [id number] Collison (Endobronchial Brushing(s)), 99321 BAL, (Bronchoalveolar Lavage), 56369 TBBX, (Transbronchial biopsies, first lobe), 11608 TBBX additional lymph node transbronchial biopsy 47173 pTBNA, (peripheral transbronchial needle aspiration), 55166 cEBUS 3 or more lesions, (Central curvelinear EBUS 3 or more lesions), 91205 pEBUS (peripheral/radial EBUS)? , 90428 Dev, (Navigation bronchoscopy, LungPoint, Allmoxy), 28448: CT guidance for needle placement, ? Odin Grayson MD, FACP, FASN Interventional Pulmonary <Odin Grayson MD - Last Filed: 02/27/25 20:44> Procedure: <CODY Griggs - Last Filed: 02/27/25 14:04>
--- NOTE | 2025-02-27 15:33 | ANE.PACU2 ---
Inpatient post-anesthesia follow up: Airway intact: Yes Vital signs: Temperature 97.1 F Pulse Rate 86 Respiratory Rate 18 Blood Pressure 138/68 Pulse Oximetry 93 Oxygen Delivery Me thod Room Air Oxygen Flow Rate 1 Fraction of Inspir ed Oxygen Hydration adequate: Yes Nausea and vomiting: No Pain level: 1 Mental status: Baseline
[2025-02-28 02:55] LABS: Cyto Order Verification Order Verified
[2025-03-05 21:11] LABS: Legionella Specimen Source RUL BAL FOR MICRO
[2025-03-06 21:30] LABS: Aspergillus AG,EIA NOT DETECTED; Aspergillus AG,EIA, Index <0.50
[2025-03-07 07:24] LABS: Pneumocystis Jirovecii Carinii NOT DETECTED
== END 2025-02-27 11:05 | disposition home or self-care (01) ==
PROVIDERS: PCP Internal Medicine; Visit Provider Internal Medicine
PROC: 0BJ08ZZ Inspection of Tracheobronchial Tree, Via Natural or Artificial Opening Endoscopic (ICD-10-PCS; CPT 31622; principal; 2025-02-27 07:00)
PROC: BB4BZZZ Ultrasonography of Pleura (ICD-10-PCS; 2025-02-27 07:00)
DX: C34.91 Malignant neoplasm of unspecified part of right bronchus or lung (principal); J42 Unspecified chronic bronchitis; E11.9 Type 2 diabetes mellitus without complications; M06.9 Rheumatoid arthritis, unspecified; K21.9 Gastro-esophageal reflux disease without esophagitis; Z79.82 Long term (current) use of aspirin; Z79.4 Long term (current) use of insulin; Z79.891 Long term (current) use of opiate analgesic; F17.210 Nicotine dependence, cigarettes, uncomplicated; M79.7 Fibromyalgia; I10 Essential (primary) hypertension
CPT/HCPCS: 31623; 31624; 31627; 31628; 31629; 31632; 31653; 31654; 36416; 71045; 76000; 77012; 82962; 87015; 87070; 87075; 87081; 87102; 87116; 87176; 87186; 87205; 87206; 87278; 87281; 87305; 87801; 88112; 88173; 88305; 88342; J1100; J2250; J2704; J2795; J3010; J3490; J7030; J9999

== ENCOUNTER → 2025-03-06 09:41 | Outpatient (BNVA) | payer MEDICAID, SELFPAY | PROVIDERS: PCP Internal Medicine; Visit Provider Orthopaedic Surgery | DX: Z98.890 Other specified postprocedural states (principal) | CPT/HCPCS: 99024 ==

== ENCOUNTER 2025-03-07 16:34 | Inpatient (IN) | payer MEDICAID, SELFPAY ==
[2025-03-07] VITALS (21 sets, daily range): BP systolic 100–174; BP diastolic 55–88; PULSE 73–87; RESP 16–20; TEMP 36.3–36.9; O2SAT 91–100; BMI 32.1
--- NOTE | 2025-03-07 12:33 | W.PM.OPSUD ---
Surgery/Procedure H&P Update DATE OF PROCEDURE: March 07, 2025 DATE H&P PERFORMED: 03/06/25 CHANGES TO PREVIOUS DOCUMENTATION: No changes from original H&P from surgery. Updates been done PRIMARY INDICATION FOR PROCEDURE: Chronic draining sinus right hip wound PLANNED PROCEDURE: Operation Date: 03/07/25 13:20 Proposed Procedures p Incision and Drainage RIGHT Hip(Right) - Cheng Mullen MD
[2025-03-07] MEDS: insulin regular-human 100 units/1 mL 10 UNIT IVP ×2 (12:56→13:42)
[2025-03-07] MEDS: ceFAZolin 2,000 mg SDV 2000 MG IVP ×2 (13:28→20:41)
--- NOTE | 2025-03-07 13:31 | ANES.PREANE2 ---
Pre-Anesthetic Assessment Height/Weight: Height 5 ft 5 in Weight 193 lb Temp Pulse Resp BP Pulse Ox O2 Del Method 97.3 F L 79 16 119/79 96 Room Air 03/07/25 12:54 03/07/25 12:54 03/07/25 12:54 03/07/25 12:54 03/07/25 12:54 03/07/25 12:54 Preop Diagnosis: Hip infection Operation Date: 03/07/25 13:20 Proposed Procedures p Incision and Drainage RIGHT Hip(Right) - Cheng Mullen MD Was Beta Brooke taken within 24 hours: N/A Was Clonidine taken within 24 hours: N/A Last intake: Intake Last Liquid Date 03/07/25 Last Liquid Time 08:00 Last Solid Date 03/06/25 Last Solid Time 18:00 Social Tobacco and No alcohol Exam alert, oriented x 3, clear to auscultation bilaterally and regular rate & rhythm Airway Submandibular: within normal limits Mallampati: Class II Anesthetic Plan ASA status: 4 Anesthesia: General Other: No prior issues with anesthesia Patient recently had a bronchoscopy with us last week and did well N.p.o. since yesterday evening IDDM, preop BS initially 260s, treated with 10 units insulin and most recent BS 328. We will give more insulin and proceed due to need of I&D History of rheumatoid arthritis COPD, still smoking Plan for GA Medications/Allergies Home Medications ?Medication ?Instructions ?Recorded ?Confirmed ?Last Taken ?Type omeprazole 40 mg capsule,delayed 40 mg PO QAM 09/05/19 03/06/25 03/06/25 History release nitroglycerin 0.4 mg sublingual 0.4 mg sublingual Q5M PRN chest 09/09/19 03/06/25 Unknown Rx tablet (Nitrostat) pain 30 days #25 tabs albuterol sulfate 2.5 mg/3 mL 2.5 mg inhalation Q6H PRN 04/01/20 03/06/25 12/14/22 History (0.083 %) solution for nebulization Shortness Of Breath aspirin 81 mg tablet,delayed 81 mg PO DAILY@0800 08/15/20 03/06/25 03/06/25 History release alprazolam 0.25 mg tablet 0.25 mg PO DAILY PRN anxiety 09/16/22 03/06/25 03/07/25 History sertraline 100 mg tablet (Zoloft) 100 mg PO QPM 01/12/23 03/06/25 03/07/25 History acetaminophen 500 mg tablet 1,000 mg PO Q12H PRN Pain 03/07/23 03/06/25 Unknown History guaifenesin 600 mg tablet, 600 mg PO Q12H PRN Congestion 03/07/23 03/06/25 Unknown History extended release 12 hr (Mucinex) magnesium hydroxide 400 mg/5 mL 30 ml PO DAILY PRN Constipation 03/07/23 03/06/25 Unknown History oral suspension (Milk of Magnesia) ropinirole 3 mg tablet 3 mg PO BEDTIME 03/07/23 03/06/25 03/05/25 History cholecalciferol (vitamin D3) 125 125 mcg PO DAILY 11/23/24 03/06/25 03/06/25 History mcg (5,000 unit) tablet (Vitamin D3) oxycodone 10 mg tablet 5 mg (1/2 x 10 mg) PO Q4H PRN Pain 11/27/24 03/06/25 03/06/25 Rx 5 days #15 tabs apremilast 30 mg tablet (Otezla) 30 mg PO BID #60 tabs 01/01/25 03/06/25 03/07/25 Rx tofacitinib 5 mg tablet (Xeljanz) 5 mg PO BID #60 tabs 01/01/25 03/06/25 03/06/25 Rx gabapentin 300 mg capsule 300 mg PO BID 02/13/25 03/06/25 03/06/25 History prednisone 10 mg tablet 10 mg PO DAILY PRN joint pain 02/13/25 03/06/25 Unknown History prednisone 5 mg tablet 5 mg PO DAILY flares 02/13/25 03/06/25 02/24/25 History ramipril 5 mg capsule 2.5 mg PO DAILY 02/13/25 03/06/25 03/06/25 History rosuvastatin 20 mg tablet (Crestor) 10 mg PO QAM 02/13/25 03/06/25 03/06/25 History cephalexin 500 mg capsule 500 mg PO TID #42 caps 02/25/25 03/06/25 03/06/25 Rx apixaban 5 mg tablet (Eliquis) 5 mg PO DAILY 08/03/06/25 02/18/25 History folic acid 1 mg tablet 1 mg PO DAILY 02/26/25 03/06/25 03/06/25 History insulin glargine 100 unit/mL (3 30 unit SUBCUT QAM 02/26/25 03/06/25 03/07/25 History mL) subcutaneous pen (Lantus Solostar U-100 Insulin) ipratropium 20 mcg-albuterol 100 20 - 100 puff inhalation DAILY 02/26/25 03/06/25 Unknown History mcg/actuation mist for inhalation (Combivent Respimat) insulin lispro 100 unit/mL 100 unit SUBCUT DIRECTED 03/06/25 03/06/25 03/06/25 History subcutaneous solution (Humalog U-100 Insulin) Allergies Allergy/AdvReac Type Severity Reaction Status Date / Time bee venom protein (honey bee) Allergy ALGY-Anaphy Verified 03/06/25 10:09 laxis topiramate (From Topamax) Allergy ADR-Halluci Verified 03/06/25 10:09 nating Current Medications Generic Name Dose Route Start Last Admin Trade Name Freq PRN Reason Stop Dose Admin Sodium Chloride 1,000 mls @ 30 mls/hr 03/07/25 12:45 03/07/25 12:55 Sodium Chloride 0.9% IV 03/08/25 12:44 30 mls/hr .Q24H PHONG Administration PFSH Anesthesia Medical History (Updated 03/06/25 @ 13:10 by Cheng Mullen MD) PVD (peripheral vascular disease) Tobacco abuse COPD (chronic obstructive pulmonary disease) Bronchitis Plaque psoriasis Immunization counseling High risk medication use Seropositive rheumatoid arthritis of multiple sites Closed fracture of right distal fibula Fall at home Closed fracture of right distal tibia Closed right ankle fracture Fracture of distal end of tibia with fibula Acute gout of right ankle Psoriasis Cigarette smoker motivated to quit Thrombocytopenia Rheumatoid arthritis Transaminitis Immunocompromised Chronic anticoagulation Portal vein thrombosis COVID-19 Syncope Seizures Onychodystrophy Rheumatoid arthritis Closed fracture of right distal fibula Emphysema/COPD Avulsion fracture of left ankle Essential hypertension Claudication Spondylosis of lumbar region without myelopathy or radiculopathy Long-term current use of opiate analgesic Pain, joint, multiple sites Osteoporosis Fibromyalgia Diabetes DDD (degenerative disc disease), cervical Cervical spondylosis Tobacco use disorder Surgical History Hx of right BKA S/P ANN-BSO S/P foot surgery Hx of section (~1989) Hx laparoscopic cholecystectomy H/O dilation and curettage Hx of hysterectomy Family History Mother Stroke Cancer SKIN CANCER Sister Stroke Other Diabetes Myocardial infarct Denies family history of Anesthesia complication Bleeding disorder Social History Smoking and tobacco/nicotine status: current every day tobacco/nicotine user (smoke 5 cigarettes ) cigarettes Packs smoked per day: 2 Years cigarettes smoked: 40 [ Other cigarette details: 10 cigarettes/day currently] Quit status (tobacco/nicotine): considering quitting Second hand smoke exposure: Yes Alcohol intake: former Substance/Drug Use: never Additional social history: Patient wants full code as discussed today 11/10/2024 but no prolonged CPR or life support Caregiver/support person: Yes Lives independently: Yes Household members: spouse Marital status: Current occupational status: disabled Pets and animals: Yes Do you think of yourself as: Straight/Heterosexual Current gender identity: Female Data Anesthesia Cardiac Studies: Echocardiogram 11/13/24 Echocardiogram Limited Views 10/21/20 Echocardiogram Ultrasound 08/14/20 Sestamibi Stress Test (Cardiology) 01/30/24 Holter Monitor 03/31/20
--- NOTE | 2025-03-07 14:19 | PM.OP ---
Operative Report Date of procedure: March 07, 2025 Surgeon: Cheng Mullen MD Procedure: Preoperative diagnosis: Persistent draining sinus right hip wound Postoperative diagnosis: Same, small subcutaneous abscess identified Procedure: Open irrigation debridement of draining sinus of the right hip, cultures obtained, tissue sent for pathologic review Surgeon: Cheng Mullen MD Anesthesia: General EBL: 10 cc Specimens: Soft tissue including sinus as well as purulent material and cultures Indications: Raquel is a 54-year-old white female who approximately 3 months ago had a endoprosthetic replacement of her right hip secondary to fracture. Subsequently had dislocated this within the first week which was subsequently reduced by Dr. Taylor. She has gone on to regain ambulatory status on this side. She has a below-knee amputation on this side and uses a prosthesis. However over the last 2 weeks she began draining from a small sinus the central portion of her wound. There is a reactive tissue in the area though with no erythema or induration. Only slight amount of tenderness. Patient failed to improve with oral antibiotics and dressing changes and therefore was offered a exploration of the area with irrigation debridement of the wound. We also briefly discussed removing the prosthesis if the infection appeared to go all the way down to the prosthesis. However, presently no x-ray findings been seen to indicate any type of infection or loosening of the prosthesis in the right hip region. All risk benefits treatment alternatives discussed with her and her and they are agreeable to this at this time. Procedure: After obtaining her consent patient was taken the operating room placed in the op table supine position general anesthetic administered. Once good anesthesia was achieved patient placed in the lateral decubitus position with the right hip up. Appropriate pegboard supports were placed to hold her in this position. Right hip and leg were prepped and draped usual fashion. After surgical timeout an elliptical incision made about the sinus that was draining her midportion of her wound. This is sharply debrided. There is found to be quite a bit of scar tissue deep down into the subcutaneous tissue region. Once down through here some murky fluid was identified. Cultures were obtained. Further dissection down found a small abscess measuring approximately 2 to 2-1/2 cm in diameter underneath the subcutaneous tissue in the fatty tissue. This is evacuated and some of this purulent material was also sent for culture and evaluation. Further dissection found that there is no channeling of this there is no connection to any other tissue areas. Scar tissue was sharply debrided from the area. Area was then washed with Irrisept irrigation which contain chlorhexidine gluconate. Antibiotics were given at this time IV. After wound was washed and debrided completely. Deep structure reapproximated 0 Vicryl [id number] sutures. Skin was loosely closed with #2 Prolene [id number] sutures. Wounds were then cleaned and dry dressed with Xeroform gauze, sterile gauze dressing, ABDs, and adhesive tape. Patient was awakened transferred to cover room in stable condition
--- NOTE | 2025-03-07 14:30 | SUR.PHASEI ---
14:15 RECEIVED PT FROM OR STAFF. AIRWAY PATENT WITH GOOD VENTILATION. ALERT TO VERBAL. NSR ON MONITOR. BLOOD GLUCOSE CHECKED 191mg/dL.
--- NOTE | 2025-03-07 14:34 | ANE.PACU2 ---
Inpatient post-anesthesia follow up: Airway intact: Yes Vital signs: Temperature 97.6 F Pulse Rate 82 Respiratory Rate 16 Blood Pressure 132/71 Pulse Oximetry 100 Oxygen Delivery Me thod Room Air Oxygen Flow Rate 8 Fraction of Inspir ed Oxygen Hydration adequate: Yes Nausea and vomiting: No Pain level: 1 Mental status: Baseline
--- NOTE | 2025-03-07 15:07 | SUR.PHASEI ---
15:00 PT RESTING IN STABLE CONDITION. AWAITING BED ASSIGNMENT. TOLERATING ICE CHIPS.
--- NOTE | 2025-03-07 15:12 | PM.CONSULT ---
Providers/Reason For Consult Consulting Physician/Specialty*: Pamela Monge MD/Internal Medicine Reason for Consult*: Medical management Attending Physician: Cheng Mullen MD Primary Care Provider: Nel Peacock MD History of Present Illness History of Present Illness Erin Kelley is a 54 year old female w/ 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 femoral neck fracture due to a mechanical fall on 11/10/2024 s/p R. hip replacement, Seropositive Rheumatoid Arthritis, Portal vein thrombosis, & IDDM2, right hip dislocation after hip hemiarthroplasty November 24, 2024, and developed drainage from hip around January and saw orthopedics in the clinic at which point x-rays were ordered. She had another visit with them 02/25 with complaint of continuous drainage from the wound that was clear in color with no malodorous smell. She was placed on cephalexin 500 3 times daily which she recently completed. Recently patient went for PET scan at which point radiologist noted that there was free air around right hip region and an old hematoma. Patient had another visit with orthopedic surgery 03/07 with complaint of continued drainage from hip wound at which point now it became malodorous. Patient was admitted to the hospital on 03/07 for elective open irrigation debridement of hip. Operative note indicates that there was open irrigation debridement of draining sinus of right hip with small subcutaneous abscess identified. Intraoperative cultures tissue sent for pathological review. Medicine has been consulted to aid with medical management of comorbid conditions and antibiotic guidance. Patient seen in PACU. Denies nausea vomiting diarrhea chest pain shortness of breath any other complaints at this time other than hip draining. Had no fever prior to presenting to the hospital. Recently had pulmonary biopsy done for lung nodule and is awaiting results. Medications/Allergies Home Medications ?Medication ?Instructions ?Recorded ?Confirmed ?Last Taken ?Type omeprazole 40 mg capsule,delayed 40 mg PO QAM 09/05/19 03/06/25 03/06/25 History release nitroglycerin 0.4 mg sublingual 0.4 mg sublingual Q5M PRN chest 09/09/19 03/06/25 Unknown Rx tablet (Nitrostat) pain 30 days #25 tabs albuterol sulfate 2.5 mg/3 mL 2.5 mg inhalation Q6H PRN 04/01/20 03/06/25 12/14/22 History (0.083 %) solution for nebulization Shortness Of Breath aspirin 81 mg tablet,delayed 81 mg PO DAILY@0800 08/15/20 03/06/25 03/06/25 History release alprazolam 0.25 mg tablet 0.25 mg PO DAILY PRN anxiety 09/16/22 03/06/25 03/07/25 History sertraline 100 mg tablet (Zoloft) 100 mg PO QPM 01/12/23 03/06/25 03/07/25 History acetaminophen 500 mg tablet 1,000 mg PO Q12H PRN Pain 03/07/23 03/06/25 Unknown History guaifenesin 600 mg tablet, 600 mg PO Q12H PRN Congestion 03/07/23 03/06/25 Unknown History extended release 12 hr (Mucinex) magnesium hydroxide 400 mg/5 mL 30 ml PO DAILY PRN Constipation 03/07/23 03/06/25 Unknown History oral suspension (Milk of Magnesia) ropinirole 3 mg tablet 3 mg PO BEDTIME 03/07/23 03/06/25 03/05/25 History cholecalciferol (vitamin D3) 125 125 mcg PO DAILY 11/23/24 03/06/25 03/06/25 History mcg (5,000 unit) tablet (Vitamin D3) oxycodone 10 mg tablet 5 mg (1/2 x 10 mg) PO Q4H PRN Pain 11/27/24 03/06/25 03/06/25 Rx 5 days #15 tabs apremilast 30 mg tablet (Otezla) 30 mg PO BID #60 tabs 01/01/25 03/06/25 03/07/25 Rx tofacitinib 5 mg tablet (Xeljanz) 5 mg PO BID #60 tabs 01/01/25 03/06/25 03/06/25 Rx gabapentin 300 mg capsule 300 mg PO BID 02/13/25 03/06/25 03/06/25 History prednisone 10 mg tablet 10 mg PO DAILY PRN joint pain 02/13/25 03/06/25 Unknown History prednisone 5 mg tablet 5 mg PO DAILY flares 02/13/25 03/06/25 02/24/25 History ramipril 5 mg capsule 2.5 mg PO DAILY 02/13/25 03/06/25 03/06/25 History rosuvastatin 20 mg tablet (Crestor) 10 mg PO QAM 02/13/25 03/06/25 03/06/25 History cephalexin 500 mg capsule 500 mg PO TID #42 caps 02/25/25 03/06/25 03/06/25 Rx apixaban 5 mg tablet (Eliquis) 5 mg PO DAILY 02/26/25 03/06/25 02/18/25 History folic acid 1 mg tablet 1 mg PO DAILY 02/26/25 03/06/25 03/06/25 History insulin glargine 100 unit/mL (3 30 unit SUBCUT QAM 02/26/25 03/06/25 03/07/25 History mL) subcutaneous pen (Lantus Solostar U-100 Insulin) ipratropium 20 mcg-albuterol 100 20 - 100 puff inhalation DAILY 02/26/25 03/06/25 Unknown History mcg/actuation mist for inhalation (Combivent Respimat) insulin lispro 100 unit/mL 100 unit SUBCUT DIRECTED 03/06/25 03/06/25 03/06/25 History subcutaneous solution (Humalog U-100 Insulin) Allergies Allergy/AdvReac Type Severity Reaction Status Date / Time bee venom protein (honey bee) Allergy ALGY-Anaphy Verified 03/06/25 10:09 laxis topiramate (From Topamax) Allergy ADR-Halluci Verified 03/06/25 10:09 nating Current Medications Generic Name Dose Route Start Last Admin Trade Name Freq PRN Reason Stop Dose Admin Sodium Chloride 1,000 mls @ 30 mls/hr 03/07/25 12:45 03/07/25 12:55 Sodium Chloride 0.9% IV 03/08/25 12:44 30 mls/hr .Q24H PHONG Administration PFSH Acute PFSH: Medical History (Updated 03/08/25 @ 14:12 by Pamela Monge MD) PVD (peripheral vascular disease) Tobacco abuse COPD (chronic obstructive pulmonary disease) Bronchitis Plaque psoriasis Immunization counseling High risk medication use Seropositive rheumatoid arthritis of multiple sites Closed fracture of right distal fibula Fall at home Closed fracture of right distal tibia Closed right ankle fracture Fracture of distal end of tibia with fibula Acute gout of right ankle Psoriasis Cigarette smoker motivated to quit Thrombocytopenia Rheumatoid arthritis Transaminitis Immunocompromised Chronic anticoagulation Portal vein thrombosis COVID-19 Syncope Seizures Onychodystrophy Rheumatoid arthritis Closed fracture of right distal fibula Emphysema/COPD Avulsion fracture of left ankle Essential hypertension Claudication Spondylosis of lumbar region without myelopathy or radiculopathy Long-term current use of opiate analgesic Pain, joint, multiple sites Osteoporosis Fibromyalgia Diabetes DDD (degenerative disc disease), cervical Cervical spondylosis Tobacco use disorder Surgical History Hx of right BKA S/P ANN-BSO S/P foot surgery Hx of section (~1989) Hx laparoscopic cholecystectomy H/O dilation and curettage Hx of hysterectomy Family History Mother Stroke Cancer SKIN CANCER Sister Stroke Other Diabetes Myocardial infarct Denies family history of Anesthesia complication Bleeding disorder Social History Smoking and tobacco/nicotine status: current every day tobacco/nicotine user (smoke 5 cigarettes ) cigarettes Packs smoked per day: 2 Years cigarettes smoked: 40 [ Other cigarette details: 10 cigarettes/day currently] Quit status (tobacco/nicotine): considering quitting Second hand smoke exposure: Yes Alcohol intake: former Substance/Drug Use: never Additional social history: Patient wants full code as discussed today 11/10/2024 but no prolonged CPR or life support Caregiver/support person: Yes Lives independently: Yes Household members: spouse Marital status: Current occupational status: disabled Pets and animals: Yes Do you think of yourself as: Straight/Heterosexual Current gender identity: Female Vitals/I&O/Wt Last Vital Signs Temp 97.6 F 03/07/25 14:25 Pulse 77 03/07/25 15:05 Resp 18 03/07/25 15:05 BP 117/66 03/07/25 15:05 Pulse Ox 97 03/07/25 15:05 O2 Del Method Nasal Cannula 03/07/25 15:05 O2 Flow Rate 2 03/07/25 15:05 03/07/25 03/07/25 03/07/25 06:59 14:59 22:59 Intake Total 500 / 500 Output Total Balance 490 / 490 Weight last 48 hrs Weight 87.543 kg Physical Exam Narrative: General: Alert oriented x3, patient seen laying in bed on 2 L nasal cannula at this time. She is immediately postop in the PACU. Able to answer questions follow commands is awake. HEENT: Normocephalic, atraumatic, EOMI, no conversational dyspnea. Appears comfortable. Cardio: S1-S2, regular rhythm Respiratory: Clear to auscultation bilaterally diminished at bases. GI: Abdomen soft, nontender, bowel sounds + Extremities: Right BKA present. Surgical dressing in place. Surgical site not examined. Patient is immediately postop. Defer that to surgery. Data 03/08/25 05:45 03/08/25 05:45 A&P Assessment and plan 1. Essential hypertension: 2. Heart failure: 3. PVD (peripheral vascular disease): 4. Diabetes: 5. Osteoporosis: 6. Rheumatoid arthritis: 7. DDD (degenerative disc disease), cervical: 8. Emphysema/COPD: 9. COPD (chronic obstructive pulmonary disease): 10. Mass of right lun. Abscess: 12. Draining cutaneous sinus tract: Plan: #Status post persistent draining right sinus hip wound with subcutaneous abscess status post open irrigation debridement #History of hip dislocation, endoprosthetic replacement of right hip secondary to fracture, hip fracture #Rheumatoid arthritis #Diabetes mellitus #Lung mass -negative for malignancy #GERD #Chronically on steroids #Pulmonary fibrosis, emphysema #COPD #Immunocompromised ? Recommend to hold Xeljanz, Otezla while on antibiotics -will notify rheumatology. ? Continue on Vanco and Zosyn broad-spectrum antibiotics till culture results available. Patient has failed orals cephalexin outpatient. ? Intraoperative cultures obtained. - Patient afebrile, white count normal ? She did have evidence of draining sinus tract which is now status post washout debridement. ? DuoNeb every 6 hours as needed ? Pain management ? Eliquis being held for surgery. ? Continue DVT prophylaxis heparin SQ twice daily ? Will restart Eliquis per recommendations from orthopedic surgery ? Check blood cultures ? Check hemoglobin A1c, magnesium, procalcitonin ? Check labs in a.m. ? Continue Ativan as needed ? sliding scale insulin, glargine 10 daily - Sertraline 100 daily - protonix 40 daily - Continue rosuvastatin full code dvt ppx: heparin 5000 BID PDMP PDMP Reviewed: Not Reviewed Consult Attestations Medical Necessity Statement: draining sinus tract, infection of hip with underlying abscess Diagnoses Essential hypertension I10 Heart failure I50.9 PVD (peripheral vascular disease) I73.9 Diabetes E11.9 Osteoporosis M81.0 Rheumatoid arthritis M06.9 DDD (degenerative disc disease), cervical M50.30 Emphysema/COPD J43.9 COPD (chronic obstructive pulmonary disease) J44.9 Mass of right lung R91.8 Abscess L02.91 Draining cutaneous sinus tract L98.8
[2025-03-07] MEDS: chlorhexidine gluconate 0.12% Btl 473 mL 30 ML MUCOUS MEM ×2 (17:30→20:41)
[2025-03-07] MEDS: sennosides-docusate Tablet 2 TAB PO (17:30)
[2025-03-07] MEDS: HYDROcodone-acetaminophen 5-325 mg Tablet 1 TAB PO (17:30)
[2025-03-07] MEDS: mupirocin oint 22 gm 1 APPLIC NASAL (17:30)
--- NOTE | 2025-03-07 18:19 | PHA.VACGOAL ---
Vancomycin Goal - Goal Vancomycin Indication:: SSTI - Therapy Day of therpy:: Day []of [] . Actual body weight (kg): 198 lb - Data Treatment plan:: new consult Regimen:: 1500 MG Q 12H NO DX OR LABS AVAILABLE AT THIS TIME. EVALUATE DOSE WHEN RELEVANT LABS ARE AVAILABLE
[2025-03-07] MEDS: piperacillin-tazobactam 3.375 GM in sodium chloride 0.9% (plus) 50 ML IV (20:41)
[2025-03-08] VITALS (12 sets, daily range): BP systolic 118–152; BP diastolic 61–78; PULSE 71–89; RESP 16–20; TEMP 36.5–37.1; O2SAT 93–97
[2025-03-08] MEDS: HYDROcodone-acetaminophen 5-325 mg Tablet 1 TAB PO ×5 (00:18→20:54)
[2025-03-08] MEDS: piperacillin-tazobactam 3.375 GM in sodium chloride 0.9% (plus) 50 ML IV ×3 (03:18→20:54)
[2025-03-08] MEDS: ceFAZolin 2,000 mg SDV 2000 MG IVP ×2 (05:02→13:14)
[2025-03-08 05:59] LABS: Hematocrit 28.5 % (36-47); Hemoglobin 8.80 g/dL (11.27-16.99); Mean Corpuscular HGB Conc 30.9 g/dL (30-55); Mean Corpuscular Hemoglobin 24.7 pg (27-33); Mean Corpuscular Volume 80.1 fl (85-98); Nucleated Red Blood Cells % 0 %; Platelet Count 224 10^3/cmm (157-399); Red Blood Count 3.56 10^6/uL (3.85-5.65); White Blood Count 6.54 10^3/uL (3.29-11.43)
[2025-03-08 06:18] LABS: Alanine Aminotransferase 8 U/L (0-33); Albumin Level 2.6 g/dL (3.5-5.2); Alkaline Phosphatase 186 U/L (35-105); Anion Gap 15.3 (5-19); Aspartate Amino Transferase 15 U/L (0-32); Blood Urea Nitrogen 6 mg/dL (6-20); Calcium 8.3 mg/dL (8.5-10.5); Carbon Dioxide 19 mmol/L (22-29); Chloride 102 mmol/L (98-107); Creatinine Clr Calc Pharmacy 116.9201; Globulin 3.1 g/dL (1.3-4.6); Glucose 182 mg/dL (65-115); Osmolality Calculated 276 mOsm/kg (285-295); Potassium 4.3 mmol/L (3.5-5.1); Sodium 132 mmol/L (136-145); Total Protein 5.7 g/dL (6.6-8.7)
[2025-03-08 06:19] LABS: Magnesium 1.7 mg/dL (1.7-2.3)
[2025-03-08] MEDS: sennosides-docusate Tablet 2 TAB PO ×2 (07:59→17:14)
[2025-03-08] MEDS: multivitamin therapeutic Tablet 1 TAB PO (07:59)
--- NOTE | 2025-03-08 12:06 | P.PN_ITS ---
Subjective 2 Subjective: Seen this morning. Awaiting urine cultures Feels a lot better. Sitting up in chair. Requesting to go home. Discussed with patient that we have to wait for her intraoperative cultures prior to deciding to send her home. Patient agreeable. Vitals/I&O/Wt Last Vital Signs Temp 97.9 F 03/09/25 11:06 Pulse 87 03/09/25 11:06 Resp 17 03/09/25 11:06 BP 102/68 03/09/25 11:06 Pulse Ox 100 03/09/25 11:06 O2 Del Method Room Air 03/09/25 11:06 O2 Flow Rate 3 03/07/25 17:10 FiO2 2 03/07/25 15:55 03/08/25 03/09/25 03/09/25 22:59 06:59 14:59 Intake Total 540 / 2370.0 1013.75 / 3383.75 290 / 290 Balance 540 / 2370.0 1013.75 / 3383.75 290 / 290 Weight last 48 hrs Weight 91.444 kg Weight 91.354 kg Weight 89.811 kg Weight 87.543 kg Physical Exam 2 Narrative: General: Alert oriented x3, patient seen laying in bed on 2 L nasal cannula at this time. HEENT: Normocephalic, atraumatic, EOMI, no conversational dyspnea. Appears comfortable. Cardio: S1-S2, regular rhythm Respiratory: Clear to auscultation bilaterally diminished at bases. GI: Abdomen soft, nontender, bowel sounds + Extremities: Right BKA present. Surgical dressing in place. Data 03/09/25 05:43 03/08/25 05:45 Micro: Microbiology 03/07/25 13:45 Anaerobic Culture - Preliminary Hip - 30 Days Old 03/07/25 13:45 Gram Stain - Final Hip - #4 Wound Culture - Preliminary 03/07/25 13:45 Gram Stain - Final Hip - #1 Wound Culture - Preliminary 03/07/25 13:45 Gram Stain - Final Hip - #2 Abscess Culture - Preliminary A&P Assessment and plan 1. Essential hypertension: 2. Heart failure: 3. PVD (peripheral vascular disease): 4. Diabetes: 5. Osteoporosis: 6. Rheumatoid arthritis: 7. DDD (degenerative disc disease), cervical: 8. Emphysema/COPD: 9. COPD (chronic obstructive pulmonary disease): 10. Mass of right lun. Abscess: 12. Draining cutaneous sinus tract: Plan: #Status post persistent draining right sinus hip wound with subcutaneous abscess status post open irrigation debridement #History of hip dislocation, endoprosthetic replacement of right hip secondary to fracture, hip fracture #Rheumatoid arthritis #Diabetes mellitus #Lung mass -negative for malignancy #GERD #Chronically on steroids #Pulmonary fibrosis, emphysema #COPD #Immunocompromised ? Recommend to hold Xeljanz, Otezla while on antibiotics -will notify rheumatology. ? Continue on Vanco and Zosyn broad-spectrum antibiotics till culture results available. Patient has failed orals cephalexin outpatient. ? Intraoperative cultures obtained. - Patient afebrile, white count normal ? She did have evidence of draining sinus tract which is now status post washout debridement. ? DuoNeb every 6 hours as needed ? Pain management ? Eliquis being held for surgery. ? Continue DVT prophylaxis heparin SQ twice daily ? Will restart Eliquis per recommendations from orthopedic surgery ? Check blood cultures ? Check hemoglobin A1c, magnesium, procalcitonin ? Check labs in a.m. ? Continue Ativan as needed ? sliding scale insulin, glargine 10 daily - Sertraline 100 daily - protonix 40 daily - Continue rosuvastatin full code dvt ppx: heparin 5000 BID . 03/09/2025 Repeat intraoperative cultures Continue bank Zosyn in the meantime. Patient afebrile white count normal. Continue on heparin SQ twice daily Recommend to restart Eliquis if okay with orthopedic surgery. Patient has been on antibiotics as an outpatient as well. Continue sertraline Protonix daily. Patient appears well. Once cultures finalize oral antibiotics will be decided upon and patient may discharge home to follow-up with orthopedic surgery as an outpatient. Defer to primary team for further decision-making. PDMP PDMP Reviewed: Not Reviewed Attestations 2 Medical Necessity Statement*: Awaiting intraoperative cultures. Diagnoses Essential hypertension I10 Heart failure I50.9 PVD (peripheral vascular disease) I73.9 Diabetes E11.9 Osteoporosis M81.0 Rheumatoid arthritis M06.9 DDD (degenerative disc disease), cervical M50.30 Emphysema/COPD J43.9 COPD (chronic obstructive pulmonary disease) J44.9 Mass of right lung R91.8 Abscess L02.91 Draining cutaneous sinus tract L98.8
--- NOTE | 2025-03-08 12:15 | P.PN_ITS ---
Subjective 2 Subjective: Patient resting comfortably and is sitting up in bed at time of visit. Just finished working with physical therapy services. she states that she is feeling much better. Pain is managed well. Requesting to go home. Continued IV antibiotics, with hospitalist consultation. Cultures are still pending. Medications: Reviewed: Yes Vitals/I&O/Wt Last Vital Signs Temp 97.9 F 03/09/25 11:06 Pulse 87 03/09/25 11:06 Resp 17 03/09/25 11:06 BP 102/68 03/09/25 11:06 Pulse Ox 100 03/09/25 11:06 O2 Del Method Room Air 03/09/25 11:06 O2 Flow Rate 3 03/07/25 17:10 FiO2 2 03/07/25 15:55 03/08/25 03/09/25 03/09/25 22:59 06:59 14:59 Intake Total 540 / 2370.0 1013.75 / 3383.75 290 / 290 Balance 540 / 2370.0 1013.75 / 3383.75 290 / 290 Weight last 48 hrs Weight 201 lb 9.6 oz Weight 201 lb 6.4 oz Weight 198 lb Weight 193 lb Physical Exam 2 Const: COMMON NORMALS: no acute distress, average body habitus, patient oriented x3, no limitations, alert and well nourished GENERAL APPEARANCE: c ooperative; not anxious and not combative ORIENTATION/CONSCIOUSNESS: Yes awake, Yes oriented to person, Yes oriented to place and Yes oriented to time HENMT: COMMON NORMALS: normocephalic and atraumatic HEAD & SCALP: n ormocephalic and atraumatic Resp: COMMON NORMALS: normal respiratory effort Extremity: RIGHT LOWER EXTREMITY: Yes hip joint (Postoperative dressing is clean, dry and intact.) Right hip: Yes inspection (No active drainage.), Yes palpation (No TTP), Yes ROM (Able to flex hip comfortably to 90 degrees. Able to straight leg raise.) and Yes neurovascular exam (Sensation intact to light touch. Rapid cap refill) Neuro: COMMON NORMALS: patient oriented x3 SENSORIUM/ORIENTATION: Yes alert, Yes oriented to person, Yes oriented to place and Yes oriented to time Psych: ATTITUDE: Yes engaged Skin: COMMON NORMALS: no rashes or lesions noted, turgor normal and no jaundice GENERAL SKIN EXAM: no rashes or lesions noted and turgor normal Data 03/09/25 05:43 03/08/25 05:45 Micro: Microbiology 03/07/25 13:45 Anaerobic Culture - Preliminary Hip - 30 Days Old 03/07/25 13:45 Gram Stain - Final Hip - #4 Wound Culture - Preliminary 03/07/25 13:45 Gram Stain - Final Hip - #1 Wound Culture - Preliminary 03/07/25 13:45 Gram Stain - Final Hip - #2 Abscess Culture - Preliminary A&P Assessment and plan 1. Draining postoperative wound, subsequent encounter: 2. History of right hip hemiarthroplasty: 3. Diabetes: 4. Rheumatoid arthritis: Plan: This is a 54-year-old, established female patient, who is now status post day 1 after incision and drainage to the right hip for subcutaneous abscess. Cultures from procedure are currently pending without preliminary results. Patient is currently afebrile and most recent white blood cells are within normal range. She is doing well overall and states that she is feeling much better since her surgery. She has worked well with physical therapy, with and without her prosthetic leg, to include sit to stand on her own, as well as an independent ambulation. She continues to receive IV antibiotics. At this time, patient is requesting to be discharged. She is doing well from an orthopedic standpoint and has had no significant drainage in her postoperative state however, as her cultures are still pending she will need to remain in house until these are resulted. We will need to ensure she has the appropriate antibiotics and can be sent home safely with orals versus IV antibiotics. Patient verbalized understanding. She will continue to work with therapy services in the interim. We will continue to await culture results. This was discussed with hospitalist team and they are in agreement. PDMP PDMP Reviewed: Not Reviewed Attestations 2 Medical Necessity Statement*: Will require continued medical admission due to awaiting culture results, need for IV antibiotic coverage and continue to work with physical therapy services. Time Spent in Patient Care: Greater than 30 mins. Coding Level of Care Code Acute Code for Chg Fwd Diagnoses Draining postoperative wound, subsequent encounter T81.89XD Encounter type: subsequent encounter History of right hip hemiarthroplasty Z96.641 Diabetes E11.9 Rheumatoid arthritis M06.9
--- NOTE | 2025-03-08 12:58 | PC.CHAP ---
Pastoral Care Encounter/Spiritual Assessment Type of Contact [x] Declined open source developer visit [] Patient/Family/Request visit [] Outpatient visit [] Follow-up visit [] Physician referral [] Code/Alert [x] Routine visit [] Staff referral [] Actively dying [] Patient sleeping [] Family support [] [] Out of room [] Palliative care [] [] Receiving care in room [] Pre-surgical visit [] Trauma [] Long length of stay [] ICU visit [] Other: Relational/Emotional Strength [] Patient feels connected with others/family/visitors/staff [] Distress [] Loneliness/isolation [] Abandonment Spirituality of Patient [] Person of Yadira [] Attends Islam of their Yadira [] Believes in Prayer [] Reads Bible or Tenriism materials [] There are Spiritual issues to be addressed Alloy Weigher Interventions [] Prayer [] Active listening [] Non-anxious presence [] Spiritual/emotional support [] Crisis/trauma care [] Spiritual counseling [] Bereavement support [] Provided bereavement packet [] Provided Bible/devotional materials [] Provided toy/stuffed animal, coloring book to patient or family member [] Provided Communion [] Anointing/[place] [] Salvation [] Completed spiritual assessment [] Other: Impact on Illness or Injury [] Angry [] Fearful [] Anxious [] Often cries [] Exhaustion [] Unable to work [] Unable to attend confucianism [] Unable to walk/stand [] Unable to read [] Unable to drive [] Unable to eat/drink [] Unable to sleep [] Unable to be with family [] Patient intubated [] Other: Summary Time spent with patient
[2025-03-08] MEDS: heparin 5,000 unit/mL INJ 1 mL 5000 UNIT SUBCUT (14:32)
[2025-03-08] MEDS: morphine 4 mg/mL SDV 1 mL IVP ×2 (18:01→22:09)
[2025-03-08] MEDS: chlorhexidine gluconate 0.12% Btl 473 mL 30 ML MUCOUS MEM (21:04)
[2025-03-09] VITALS (9 sets, daily range): BP systolic 102–137; BP diastolic 62–80; PULSE 72–87; RESP 16–18; TEMP 36.6–36.8; O2SAT 91–100
[2025-03-09] MEDS: heparin 5,000 unit/mL INJ 1 mL 5000 UNIT SUBCUT (01:30)
[2025-03-09] MEDS: morphine 4 mg/mL SDV 1 mL IVP ×3 (02:05→22:46)
[2025-03-09] MEDS: piperacillin-tazobactam 3.375 GM in sodium chloride 0.9% (plus) 50 ML IV ×3 (03:47→20:50)
[2025-03-09] MEDS: HYDROcodone-acetaminophen 5-325 mg Tablet 1 TAB PO ×3 (03:49→20:50)
[2025-03-09 05:58] LABS: Hematocrit 29.3 % (36-47); Hemoglobin 8.70 g/dL (11.27-16.99); Mean Corpuscular HGB Conc 29.7 g/dL (30-55); Mean Corpuscular Hemoglobin 23.9 pg (27-33); Mean Corpuscular Volume 80.5 fl (85-98); Nucleated Red Blood Cells % 0 %; Platelet Count 226 10^3/cmm (157-399); Red Blood Count 3.64 10^6/uL (3.85-5.65); White Blood Count 5.74 10^3/uL (3.29-11.43)
[2025-03-09] MEDS: sennosides-docusate Tablet 2 TAB PO (08:46)
[2025-03-09] MEDS: multivitamin therapeutic Tablet 1 TAB PO (08:46)
--- NOTE | 2025-03-09 12:10 | P.PN_ITS ---
Subjective 2 Subjective: Seen this morning Afebrile Sitting up of bed doing well. Vitals/I&O/Wt Last Vital Signs Temp 97.9 F 03/09/25 11:06 Pulse 87 03/09/25 11:06 Resp 17 03/09/25 11:06 BP 102/68 03/09/25 11:06 Pulse Ox 100 03/09/25 11:06 O2 Del Method Room Air 03/09/25 11:06 O2 Flow Rate 3 03/07/25 17:10 FiO2 2 03/07/25 15:55 03/08/25 03/09/25 03/09/25 22:59 06:59 14:59 Intake Total 540 / 2370.0 1013.75 / 3383.75 290 / 290 Balance 540 / 2370.0 1013.75 / 3383.75 290 / 290 Weight last 48 hrs Weight 91.444 kg Weight 91.354 kg Weight 89.811 kg Weight 87.543 kg Physical Exam 2 Narrative: General: Alert oriented x3, patient seen laying in bed on 2 L nasal cannula at this time. HEENT: Normocephalic, atraumatic, EOMI, no conversational dyspnea. Appears comfortable. Cardio: S1-S2, regular rhythm Respiratory: Clear to auscultation bilaterally diminished at bases. GI: Abdomen soft, nontender, bowel sounds + Extremities: Right BKA present. Surgical dressing in place. Data 03/09/25 05:43 03/08/25 05:45 Micro: Microbiology 03/07/25 13:45 Anaerobic Culture - Preliminary Hip - 30 Days Old 03/07/25 13:45 Gram Stain - Final Hip - #4 Wound Culture - Preliminary 03/07/25 13:45 Gram Stain - Final Hip - #1 Wound Culture - Preliminary 03/07/25 13:45 Gram Stain - Final Hip - #2 Abscess Culture - Preliminary A&P Assessment and plan 1. Essential hypertension: 2. Heart failure: 3. PVD (peripheral vascular disease): 4. Diabetes: 5. Osteoporosis: 6. Rheumatoid arthritis: 7. DDD (degenerative disc disease), cervical: 8. Emphysema/COPD: 9. COPD (chronic obstructive pulmonary disease): 10. Mass of right lun. Abscess: 12. Draining cutaneous sinus tract: Plan: #Status post persistent draining right sinus hip wound with subcutaneous abscess status post open irrigation debridement #History of hip dislocation, endoprosthetic replacement of right hip secondary to fracture, hip fracture #Rheumatoid arthritis #Diabetes mellitus #Lung mass -negative for malignancy #GERD #Chronically on steroids #Pulmonary fibrosis, emphysema #COPD #Immunocompromised ? Recommend to hold Xeljanz, Otezla while on antibiotics -will notify rheumatology. ? Continue on Vanco and Zosyn broad-spectrum antibiotics till culture results available. Patient has failed orals cephalexin outpatient. ? Intraoperative cultures obtained. - Patient afebrile, white count normal ? She did have evidence of draining sinus tract which is now status post washout debridement. ? DuoNeb every 6 hours as needed ? Pain management ? Eliquis being held for surgery. ? Continue DVT prophylaxis heparin SQ twice daily ? Will restart Eliquis per recommendations from orthopedic surgery ? Check blood cultures ? Check hemoglobin A1c, magnesium, procalcitonin ? Check labs in a.m. ? Continue Ativan as needed ? sliding scale insulin, glargine 10 daily - Sertraline 100 daily - protonix 40 daily - Continue rosuvastatin full code dvt ppx: heparin 5000 BID . 03/08/2025 Repeat intraoperative cultures Continue bank Zosyn in the meantime. Patient afebrile white count normal. Continue on heparin SQ twice daily Recommend to restart Eliquis if okay with orthopedic surgery. Patient has been on antibiotics as an outpatient as well. Continue sertraline Protonix daily. Patient appears well. Once cultures finalize oral antibiotics will be decided upon and patient may discharge home to follow-up with orthopedic surgery as an outpatient. Defer to primary team for further decision-making. 03/09/2025 Awaiting cultures. Continue current treatment. PDMP PDMP Reviewed: Not Reviewed Attestations 2 Medical Necessity Statement*: Defer to primary team. Awaiting cultures. Coding Level of Care Code Acute Code for Chg Fwd Diagnoses Essential hypertension I10 Heart failure I50.9 PVD (peripheral vascular disease) I73.9 Diabetes E11.9 Osteoporosis M81.0 Rheumatoid arthritis M06.9 DDD (degenerative disc disease), cervical M50.30 Emphysema/COPD J43.9 COPD (chronic obstructive pulmonary disease) J44.9 Mass of right lung R91.8 Abscess L02.91 Draining cutaneous sinus tract L98.8
--- NOTE | 2025-03-09 12:45 | P.PN_ITS ---
Subjective 2 Subjective: Patient status post irrigation debridement of lateral right hip wound. This was done on 07 March. Now 2 days later she has been afebrile. Cultures have been negative. Gram stain has been negative on all the specimens. Presently on Zosyn for IV antibiotics. Patient indicates that she has minimal tenderness or pain about the incision line. She states she is feeling good Medications: Reviewed: Yes Vitals/I&O/Wt Last Vital Signs Temp 97.9 F 03/09/25 11:06 Pulse 87 03/09/25 11:06 Resp 17 03/09/25 11:06 BP 102/68 03/09/25 11:06 Pulse Ox 100 03/09/25 11:06 O2 Del Method Room Air 03/09/25 11:06 O2 Flow Rate 3 03/07/25 17:10 FiO2 2 03/07/25 15:55 03/08/25 03/09/25 03/09/25 22:59 06:59 14:59 Intake Total 540 / 2370.0 1013.75 / 3383.75 290 / 290 Balance 540 / 2370.0 1013.75 / 3383.75 290 / 290 Weight last 48 hrs Weight 201 lb 9.6 oz Weight 201 lb 6.4 oz Weight 198 lb Weight 193 lb Physical Exam 2 Narrative: Dressings on the right hip are clear with no signs of any drainage Data 03/09/25 05:43 03/08/25 05:45 Micro: Microbiology 03/07/25 13:45 Anaerobic Culture - Preliminary Hip - 30 Days Old 03/07/25 13:45 Gram Stain - Final Hip - #4 Wound Culture - Preliminary 03/07/25 13:45 Gram Stain - Final Hip - #1 Wound Culture - Preliminary 03/07/25 13:45 Gram Stain - Final Hip - #2 Abscess Culture - Preliminary A&P PDMP PDMP Reviewed: Not Reviewed Attestations 2 Medical Necessity Statement*: Patient in need of further medical assistance with IV antibiotics and await final cultures on surgical specimens Coding Level of Care Code 61908
[2025-03-09] MEDS: insulin glargine 100 units/1 mL 25 UNIT SUBCUT (20:50)
[2025-03-09] MEDS: chlorhexidine gluconate 0.12% Btl 473 mL 30 ML MUCOUS MEM (20:52)
[2025-03-10] VITALS (8 sets, daily range): BP systolic 116–171; BP diastolic 64–85; PULSE 67–79; RESP 16–18; TEMP 36.7–36.8; O2SAT 2–100
[2025-03-10] MEDS: heparin 5,000 unit/mL INJ 1 mL 5000 UNIT SUBCUT ×2 (02:02→13:07)
[2025-03-10] MEDS: HYDROcodone-acetaminophen 5-325 mg Tablet 1 TAB PO ×5 (02:17→22:29)
[2025-03-10] MEDS: piperacillin-tazobactam 3.375 GM in sodium chloride 0.9% (plus) 50 ML IV ×3 (04:06→20:58)
[2025-03-10 05:00] LABS: Hematocrit 30.2 % (36-47); Hemoglobin 9.00 g/dL (11.27-16.99); Mean Corpuscular HGB Conc 29.8 g/dL (30-55); Mean Corpuscular Hemoglobin 23.7 pg (27-33); Mean Corpuscular Volume 79.7 fl (85-98); Nucleated Red Blood Cells % 0 %; Platelet Count 224 10^3/cmm (157-399); Red Blood Count 3.79 10^6/uL (3.85-5.65); White Blood Count 5.06 10^3/uL (3.29-11.43)
[2025-03-10] MEDS: morphine 4 mg/mL SDV 1 mL IVP (05:04)
[2025-03-10 05:27] LABS: Alanine Aminotransferase 37 U/L (0-33); Albumin Level 3.0 g/dL (3.5-5.2); Alkaline Phosphatase 495 U/L (35-105); Anion Gap 14.3 (5-19); Aspartate Amino Transferase 194 U/L (0-32); Blood Urea Nitrogen 6 mg/dL (6-20); Calcium 8.9 mg/dL (8.5-10.5); Carbon Dioxide 22 mmol/L (22-29); Chloride 108 mmol/L (98-107); Creatinine Clr Calc Pharmacy 142.3415; Globulin 3.4 g/dL (1.3-4.6); Glucose 50 mg/dL (65-115); Magnesium 1.8 mg/dL (1.7-2.3); Osmolality Calculated 287 mOsm/kg (285-295); Potassium 3.3 mmol/L (3.5-5.1); Sodium 141 mmol/L (136-145); Total Protein 6.4 g/dL (6.6-8.7)
[2025-03-10] MEDS: multivitamin therapeutic Tablet 1 TAB PO (08:17)
[2025-03-10 09:20] LABS: Hematocrit 33.1 % (36-47); Hemoglobin 9.80 g/dL (11.27-16.99); Mean Corpuscular HGB Conc 29.6 g/dL (30-55); Mean Corpuscular Hemoglobin 23.9 pg (27-33); Mean Corpuscular Volume 80.7 fl (85-98); Nucleated Red Blood Cells % 0 %; Platelet Count 247 10^3/cmm (157-399); Red Blood Count 4.10 10^6/uL (3.85-5.65); White Blood Count 5.46 10^3/uL (3.29-11.43)
[2025-03-10 09:46] LABS: Estmated Average Glucose 194; Hemoglobin A1C 8.4 % (4.0-6.0)
[2025-03-10 09:57] LABS: Procalcitonin 0.19 ng/mL (0-0.5)
[2025-03-10 10:08] LABS: Alanine Aminotransferase 52 U/L (0-33); Albumin Level 3.1 g/dL (3.5-5.2); Alkaline Phosphatase 572 U/L (35-105); Anion Gap 16.0 (5-19); Aspartate Amino Transferase 231 U/L (0-32); Blood Urea Nitrogen 5 mg/dL (6-20); Calcium 8.8 mg/dL (8.5-10.5); Carbon Dioxide 22 mmol/L (22-29); Chloride 104 mmol/L (98-107); Creatinine Clr Calc Pharmacy 177.9268; Globulin 3.7 g/dL (1.3-4.6); Glucose 124 mg/dL (65-115); Magnesium 1.8 mg/dL (1.7-2.3); Osmolality Calculated 285 mOsm/kg (285-295); Potassium 4.0 mmol/L (3.5-5.1); Sodium 138 mmol/L (136-145); Total Protein 6.8 g/dL (6.6-8.7)
--- NOTE | 2025-03-10 16:39 | P.PN_ITS ---
Subjective 2 Subjective: Patient was seen this morning, currently alert oriented x 3, following all commands, denies any fevers, chills, no cough, no nausea, no vomiting Vitals/I&O/Wt Last Vital Signs Temp 98.1 F 03/10/25 15:49 Pulse 74 03/10/25 15:49 Resp 16 03/10/25 15:49 BP 145/81 03/10/25 15:49 Pulse Ox 98 03/10/25 15:49 O2 Del Method Room Air 03/10/25 15:49 O2 Flow Rate 3 03/07/25 17:10 FiO2 2 03/07/25 15:55 03/10/25 03/10/25 03/10/25 06:59 14:59 22:59 Intake Total 942.5 / 3062.5 290 / 290 Output Total 250 / 250 Balance 942.5 / 2862.5 40 / 40 Weight last 48 hrs Weight 93.922 kg Weight 91.444 kg Physical Exam 2 Const: COMMON NORMALS: no acute distress and patient oriented x3 Resp: COMMON NORMALS: normal respiratory effort, No retractions, No use of accessory muscles and clear to auscultation bilaterally AUSCULTATION: clear to auscultation bilaterally Cardio: COMMON NORMALS: regular rate, regular rhythm, S1 normal heart sound present and S2 normal heart sound present RATE: regular rate RHYTHM: r egular rhythm HEART SOUNDS: S1 normal heart sound present and S2 normal heart sound present GI: COMMON NORMALS: Normal to inspection, nondistended, normoactive bowel sounds present and non-tender Extremity: COMMON NORMALS: no pedal edema Neuro: COMMON NORMALS: patient oriented x3 Psych: COMMON NORMALS: mental status grossly normal Skin: NARRATIVE SKIN EXAM: Surgical site, with dressing placed Data 03/10/25 08:30 03/10/25 08:30 Micro: Microbiology 03/07/25 13:45 Anaerobic Culture - Preliminary Hip - 30 Days Old 03/07/25 13:45 Gram Stain - Final Hip - #2 Abscess Culture - Final 03/07/25 13:45 Gram Stain - Final Hip - #1 Wound Culture - Final 03/07/25 13:45 Gram Stain - Final Hip - #4 Wound Culture - Final 03/10/25 08:30 Blood Culture - Preliminary Blood SPECIMEN COLLECTED 03/10/25 08:30 Blood Culture - Preliminary Blood SPECIMEN COLLECTED A&P Assessment and plan 1. Essential hypertension: 2. Heart failure: 3. PVD (peripheral vascular disease): 4. Diabetes: 5. Osteoporosis: 6. Rheumatoid arthritis: 7. DDD (degenerative disc disease), cervical: 8. Emphysema/COPD: 9. COPD (chronic obstructive pulmonary disease): 10. Mass of right lun. Abscess: 12. Draining cutaneous sinus tract: Plan: # Persistent draining sinus right hip wound, status post open irrigation debridement of draining sinus of the right hip, by Dr. Mullen, 03/07/2025 - Follow surgical cultures -Follow blood cultures -Will consult infectious disease -Continue vancomycin -Continue Zosyn #History of hip dislocation, endoprosthetic replacement of right hip secondary to fracture, hip fracture #Rheumatoid arthritis -Immunocompromise state -Hold Xeljanz #Diabetes mellitus -Lantus 25 units at bedtime -Insulin sliding scale #Lung mass -recent history of bronchoscopy and biopsy, so far pathology negative for malignancy #GERD #Chronically on steroids #Pulmonary fibrosis, emphysema #COPD #Immunocompromised #History of portal vein thrombosis, over 6 years ago, repeat liver ultrasound shows resolution, was on Eliquis, discontinued last hospitalization Full code Heparin for DVT prophylaxis PDMP PDMP Reviewed: Not Reviewed Attestations 2 Medical Necessity Statement*: Patient requires hospitalization for right hip wound status post debridement, immunocompromise state requiring IV antibiotics Diagnoses Essential hypertension I10 Heart failure I50.9 PVD (peripheral vascular disease) I73.9 Diabetes E11.9 Osteoporosis M81.0 Rheumatoid arthritis M06.9 DDD (degenerative disc disease), cervical M50.30 Emphysema/COPD J43.9 COPD (chronic obstructive pulmonary disease) J44.9 Mass of right lung R91.8 Abscess L02.91 Draining cutaneous sinus tract L98.8
[2025-03-10] MEDS: mupirocin oint 22 gm 1 APPLIC NASAL (17:16)
[2025-03-10] MEDS: insulin glargine 100 units/1 mL 25 UNIT SUBCUT (20:57)
[2025-03-10] MEDS: chlorhexidine gluconate 0.12% Btl 473 mL 30 ML MUCOUS MEM (20:58)
[2025-03-11] VITALS: BP 125/81; PULSE 71; RESP 16; TEMP 36.5; O2SAT 95
[2025-03-11] MEDS: heparin 5,000 unit/mL INJ 1 mL 5000 UNIT SUBCUT (02:03)
[2025-03-11] MEDS: HYDROcodone-acetaminophen 5-325 mg Tablet 1 TAB PO (02:27)
[2025-03-11 04:00] VITALS: BP 130/69; PULSE 82; RESP 16; TEMP 36.6; O2SAT 97
[2025-03-11 07:21] VITALS: BP 154/81; PULSE 74; RESP 16; TEMP 36.7; O2SAT 96
[2025-03-11 08:27] VITALS: PULSE 74; RESP 16; O2SAT 96
[2025-03-11] MEDS: piperacillin-tazobactam 3.375 GM in sodium chloride 0.9% (plus) 50 ML IV (08:33)
[2025-03-11] MEDS: chlorhexidine gluconate 0.12% Btl 473 mL 30 ML MUCOUS MEM (08:34)
[2025-03-11] MEDS: multivitamin therapeutic Tablet 1 TAB PO (08:34)
[2025-03-11] MEDS: mupirocin oint 22 gm 1 APPLIC NASAL (08:42)
[2025-03-11] MEDS: cefTRIAXone 2,000 mg SDV 2000 MG IVP (10:04)
[2025-03-11 10:09] LABS: Hematocrit 29.4 % (36-47); Hemoglobin 8.70 g/dL (11.27-16.99); Mean Corpuscular HGB Conc 29.6 g/dL (30-55); Mean Corpuscular Hemoglobin 23.6 pg (27-33); Mean Corpuscular Volume 79.9 fl (85-98); Nucleated Red Blood Cells % 0 %; Platelet Count 209 10^3/cmm (157-399); Red Blood Count 3.68 10^6/uL (3.85-5.65); White Blood Count 5.06 10^3/uL (3.29-11.43)
[2025-03-11 10:24] LABS: Alanine Aminotransferase 26 U/L (0-33); Albumin Level 2.8 g/dL (3.5-5.2); Alkaline Phosphatase 417 U/L (35-105); Anion Gap 14.8 (5-19); Aspartate Amino Transferase 41 U/L (0-32); Blood Urea Nitrogen 4 mg/dL (6-20); Calcium 8.3 mg/dL (8.5-10.5); Carbon Dioxide 20 mmol/L (22-29); Chloride 104 mmol/L (98-107); Creatinine Clr Calc Pharmacy 175.1997; Globulin 3.2 g/dL (1.3-4.6); Glucose 272 mg/dL (65-115); Osmolality Calculated 287 mOsm/kg (285-295); Potassium 3.8 mmol/L (3.5-5.1); Sodium 135 mmol/L (136-145); Total Protein 6.0 g/dL (6.6-8.7)
[2025-03-11 11:09] VITALS: BP 149/73; PULSE 76; RESP 16; TEMP 36.7; O2SAT 95
[2025-03-11] MEDS: DAPTOMYCIN IV (11:25)
[2025-03-11] MEDS: SODIUM CHLORIDE 0.9% IV (11:25)
--- NOTE | 2025-03-11 11:25 | XRR_ITS ---
PROCEDURE INFORMATION: Exam: XR Chest Exam date and time: 03/11/2025 12:01 PM Age: 54 years old Clinical indication: Device placement; Picc; Additional info: Post picc insertion, jazmyne placing picc in 271. Should be ready at 1205 TECHNIQUE: Imaging protocol: Radiologic exam of the chest. Views: 1 view. COMPARISON: CR XR chest 1V portable [id number] 02/27/2025 9:47 AM FINDINGS: Tubes, catheters and devices: Right upper extremity PICC with tip superimposing the superior cavoatrial junction. Lungs: Mildly coarsened interstitial lung markings. Probable scarring in the right mid lung. No focal consolidation. Pleural spaces: No large pleural effusion. No appreciable pneumothorax. Heart/Mediastinum: No cardiomegaly. Vasculature: Aortic calcifications. Bones/joints: Chronic appearing fracture deformities of multiple right ribs. XR/XR chest 1V portable [id number] IMPRESSION: 1. Right upper extremity PICC with tip superimposes the superior cavoatrial junction. 2. Coarsened interstitial lung markings likely reflecting chronic disease. 3. Improved opacity in the right mid lung with residual scarring.
--- NOTE | 2025-03-11 11:31 | PM.CONSULT ---
Providers/Reason For Consult Consulting Physician/Specialty*: Georgia Joseph MD/Infectious Disease Reason for Consult*: Hip abscess Requesting Physician: Jaydon Lane MD / Hospitalist Attending Physician: Cheng Mullen MD Primary Care Provider: Nel Peacock MD History of Present Illness History of Present Illness Erin Kelley is a 54 year old female with a past medical history of seropositive rheumatoid arthritis, currently on Xeljanz , diabetes mellitus, history of right BKA, history of osteomyelitis, Charcot foot, COPD, history of right femoral neck fracture due to a mechanical fall on November 10, 2024 status post right hemiarthroplasty. She had presented back to the emergency room on November 22, 2024 after she felt her new joint pop out. She was found to have a right hip dislocation after recent hip hemiarthroplasty. She underwent a closed reduction of the right hip in the operating room on November 24, 2024. She was discharged to [facility]. She received Augmentin at that time for her pneumonia. Patient and her report that since mid January, she developed intermittently draining sinus tract over the right hip. She does not recall any obvious trauma at the site before the drainage. She states a small fluid-filled blister seem to come up around the right hip, which started to drain a yellowish fluid afterwards. She has on occasion scratched around the area. She was started on cephalexin 500 mg 3 times daily which did appear to improve her symptoms, however her symptoms reappeared shortly after discontinuing antibiotics. In the interim she has had a PET scan on January 24, 2025 as part of ongoing evaluation for a lung mass suspected to be malignancy. Incidentally noted on this PET scan was increased FDG uptake and inflammatory changes adjacent to the prosthesis. There was noted to be a gas and fluid containing collection within the right gluteal soft tissues thought to be a possible hematoma vs abscess. Most recently on February 25, 2025 she received another course of cephalexin 500 mg 3 times daily which she was continuing at the time of current admission. She was now admitted to the hospital due to concern for potential prosthetic joint infection. She underwent I&D of the draining sinus of the right hip. In reviewing the op note, she was found to have scar tissue deep down to the subcutaneous tissue region. There was some puslike fluid identified from which cultures were obtained. These are negative thus far. A small abscess measuring about 2 to 2.5 cm was found underneath the subcutaneous layer in the fatty tissue. This abscess was evacuated. The wound is now closed. Patient denies any fever or chills. CRP from yesterday is at 33. ESR at 42. In reviewing past numbers patient baseline ESR seems to be between 25-43, likely related to her chronic seropositive rheumatoid arthritis. Review of Systems General: Reports: 10 or more systems reviewed and unremarkable except in HPI and below Const: Denies: fever(s), chills or body aches Eyes: Denies: change in vision, blurry vision or photophobia ENMT: Reports: hoarseness; Denies: throat pain, enlarged tonsils, odynophagia or nasal congestion Card: Denies: chest pain, palpitations, irregular heart rhythm, edema, swelling of feet/ankles, lightheadedness, pre-syncope, dyspnea on exertion or orthopnea Resp: Denies: dyspnea, productive cough, non-productive cough, wheezing, stridor, pain on inspiration, change in phlegm color, hemoptysis or chest congestion GI: Denies: abdominal pain, nausea, vomiting, hematemesis, coffee ground emesis, dysphagia, heartburn, diarrhea, constipation, GI cramping, change in stool character, hematochezia or melena : Denies: flank pain, difficulty voiding, dysuria, urinary frequency, urinary urgency, urinary hesitancy or hematuria Musc: Denies: neck pain, back pain, extremity pain, joint swelling, joint warmth or deformity Neuro: Denies: headache(s), numbness in extremities, weakness in extremities, sensory changes, difficulty walking, frequent falls, dizziness, vertigo, behavioral changes, Slurred speech present or seizure-like activity Psych: Denies: anxiety, depression, suicidal ideation or homicidal ideation Endo: Denies: polyuria, polydipsia, tired all the time, cold intolerance or hot flashes Jewel/Lymph: Denies: easy bruising or easy bleeding Medications/Allergies Home Medications ?Medication ?Instructions ?Recorded ?Confirmed ?Last Taken ?Type omeprazole 40 mg capsule,delayed 40 mg PO QAM 09/05/19 03/11/25 03/06/25 History release nitroglycerin 0.4 mg sublingual 0.4 mg sublingual Q5M PRN chest 09/09/19 03/11/25 Unknown Rx tablet (Nitrostat) pain 30 days #25 tabs albuterol sulfate 2.5 mg/3 mL 2.5 mg inhalation Q6H PRN 04/01/20 03/11/25 12/14/22 History (0.083 %) solution for nebulization Shortness Of Breath aspirin 81 mg tablet,delayed 81 mg PO DAILY@0800 08/15/20 03/11/25 03/06/25 History release alprazolam 0.25 mg tablet 0.25 mg PO DAILY PRN anxiety 09/16/22 03/11/25 03/07/25 History sertraline 100 mg tablet (Zoloft) 100 mg PO QPM 01/12/23 03/11/25 03/07/25 History acetaminophen 500 mg tablet 1,000 mg PO Q12H PRN Pain 03/07/23 03/11/25 Unknown History guaifenesin 600 mg tablet, 600 mg PO Q12H PRN Congestion 03/07/23 03/11/25 Unknown History extended release 12 hr (Mucinex) magnesium hydroxide 400 mg/5 mL 30 ml PO DAILY PRN Constipation 03/07/23 03/11/25 Unknown History oral suspension (Milk of Magnesia) ropinirole 3 mg tablet 3 mg PO BEDTIME 03/07/23 03/11/25 03/05/25 History cholecalciferol (vitamin D3) 125 125 mcg PO DAILY 11/23/24 03/11/25 03/06/25 History mcg (5,000 unit) tablet (Vitamin D3) apremilast 30 mg tablet (Otezla) 30 mg PO BID #60 tabs 01/01/25 03/11/25 03/07/25 Rx Held on 03/11/25. Instructions: Resume on 06/12/25. tofacitinib 5 mg tablet (Xeljanz) 5 mg PO BID #60 tabs 01/01/25 03/11/25 03/06/25 Rx Held on 03/11/25. Instructions: Resume on 06/12/25. hold unitl you see rheumatology gabapentin 300 mg capsule 300 mg PO BID 02/13/25 03/11/25 03/06/25 History prednisone 10 mg tablet 10 mg PO DAILY PRN joint pain 02/13/25 03/11/25 Unknown History Held on 03/11/25. Instructions: Resume on 06/12/25. prednisone 5 mg tablet 5 mg PO DAILY flares 02/13/25 03/11/25 02/24/25 History Held on 03/11/25. Instructions: Resume on 06/12/25. ramipril 5 mg capsule 2.5 mg PO DAILY 02/13/25 03/11/25 03/06/25 History rosuvastatin 20 mg tablet (Crestor) 10 mg PO QAM 02/13/25 03/11/25 03/06/25 History folic acid 1 mg tablet 1 mg PO DAILY 02/26/25 03/11/25 03/06/25 History insulin glargine 100 unit/mL (3 30 unit SUBCUT QAM 02/26/25 03/11/25 03/07/25 History mL) subcutaneous pen (Lantus Solostar U-100 Insulin) ipratropium 20 mcg-albuterol 100 20 - 100 puff inhalation DAILY 02/26/25 03/11/25 Unknown History mcg/actuation mist for inhalation (Combivent Respimat) insulin lispro 100 unit/mL 100 unit SUBCUT DIRECTED 03/06/25 03/11/25 03/06/25 History subcutaneous solution (Humalog U-100 Insulin) cefdinir 300 mg capsule 300 mg PO BID 2 days #4 caps 03/11/25 03/11/25 Unknown Rx fluticasone 250 mcg-salmeterol 50 1 inh inhalation Q12H #60 ea 03/11/25 03/11/25 Unknown Rx mcg/dose blistr powdr for inhalation (Advair Diskus) linezolid 600 mg tablet 600 mg PO BID 1 day #2 tabs 03/11/25 03/11/25 Unknown Rx Allergies Allergy/AdvReac Type Severity Reaction Status Date / Time bee venom protein (honey bee) Allergy ALGY-Anaphy Verified 03/11/25 15:57 laxis topiramate (From Topamax) Allergy ADR-Halluci Verified 03/11/25 15:57 nating Current Medications Generic Name Dose Route Start Last Admin Trade Name Freq PRN Reason Stop Dose Admin Acetaminophen 650 mg 03/07/25 15:12 03/10/25 21:05 Acetaminophen 325 Mg Tablet PO 650 mg Q6H PRN Administration Mild/Mod Pain Or Temp >/= 101 Hydrocodone Bitart/Acetaminophen 1 tab 03/07/25 14:09 03/11/25 02:27 Hydrocodone-Acetaminophen 5-325 Mg Tablet PO 1 tab Q4H PRN Administration MODERATE PAIN Alprazolam 0.25 mg 03/07/25 17:27 03/10/25 13:07 Alprazolam 0.5 Mg Tablet PO 0.25 mg DAILY PRN Administration anxiety Aspirin 81 mg 03/08/25 08:00 03/11/25 08:34 Aspirin 81 Mg Ec Tablet PO 81 mg DAILY@0800 PHONG Administration Atorvastatin Calcium 40 mg 03/08/25 06:00 03/11/25 05:11 Atorvastatin 40 Mg Tablet PO 40 mg QAM PHONG Administration Calcium Carbonate 1,000 mg 03/07/25 18:00 03/11/25 08:34 Calcium Carbonate 500 Mg Chew Tablet PO 1,000 mg BID PHONG Administration Ceftriaxone Sodium 2,000 mg 03/11/25 09:30 03/11/25 10:04 Ceftriaxone 2,000 Mg Sdv IVP 2,000 mg Q24H PHONG Administration Protocol Chlorhexidine Gluconate 30 ml 03/07/25 17:00 03/11/25 08:34 Chlorhexidine Gluconate 0.12% Btl 473 Ml MUCOUS MEM 30 ml QID PHONG Administration Folic Acid 1 mg 03/08/25 09:00 03/11/25 08:34 Folic Acid 1 Mg Tablet PO 1 mg DAILY PHONG Administration Gabapentin 300 mg 03/07/25 18:00 03/11/25 08:34 Gabapentin 300 Mg Capsule PO 300 mg BID PHONG Administration Guaifenesin 600 mg 03/07/25 16:46 03/10/25 08:17 Guaifenesin 600 Mg Tablet PO 600 mg Q12H PRN Administration CONGESTION Heparin Sodium (Porcine) 5,000 unit 03/08/25 14:15 03/11/25 02:03 Heparin 5,000 Unit/Ml Inj 1 Ml SUBCUT 5,000 unit Q12H PHONG Administration Insulin Glargine 25 unit 03/08/25 21:00 03/10/25 20:57 Insulin Glargine 100 Units/1 Ml SUBCUT 25 unit BEDTIME PHONG Administration Insulin Human Lispro 0 unit 03/08/25 18:00 03/11/25 11:08 Insulin Lispro 100 Unit/1 Ml SUBCUT 12 unit WM&BEDTIME PHONG Administration Protocol Multivitamins Therapeutic 1 tab 03/08/25 09:00 03/11/25 08:34 Multivitamin Therapeutic Tablet PO 1 tab DAILY PHONG Administration Mupirocin 1 applic 03/07/25 18:00 03/11/25 08:42 Mupirocin Oint 22 Gm NASAL 03/12/25 17:59 1 applic BID PHONG Administration Pantoprazole Sodium 40 mg 03/08/25 06:00 03/11/25 05:[address] 40 Mg Tablet PO 40 mg QAM PHONG Administration Senna/Docusate Sodium 2 tab 03/07/25 18:00 03/11/25 09:53 Sennosides-Docusate Tablet PO Not Given BID PHONG Sertraline HCl 100 mg 03/07/25 18:00 03/10/25 17:15 Sertraline 100 Mg Tablet PO 100 mg QPM PHONG Administration Vitamin D 5,000 unit 03/08/25 09:00 03/11/25 08:34 Cholecalciferol (Vitamin D3) 5,000 Unit Tablet PO 5,000 unit DAILY PHONG Administration PFSH Acute PFSH: Medical History PVD (peripheral vascular disease) Tobacco abuse COPD (chronic obstructive pulmonary disease) Bronchitis Plaque psoriasis Immunization counseling High risk medication use Seropositive rheumatoid arthritis of multiple sites Closed fracture of right distal fibula Fall at home Closed fracture of right distal tibia Closed right ankle fracture Fracture of distal end of tibia with fibula Acute gout of right ankle Psoriasis Cigarette smoker motivated to quit Thrombocytopenia Rheumatoid arthritis Transaminitis Immunocompromised Chronic anticoagulation Portal vein thrombosis COVID-19 Syncope Seizures Onychodystrophy Rheumatoid arthritis Closed fracture of right distal fibula Emphysema/COPD Avulsion fracture of left ankle Essential hypertension Claudication Spondylosis of lumbar region without myelopathy or radiculopathy Long-term current use of opiate analgesic Pain, joint, multiple sites Osteoporosis Fibromyalgia Diabetes DDD (degenerative disc disease), cervical Cervical spondylosis Tobacco use disorder Surgical History Hx of right BKA S/P ANN-BSO S/P foot surgery Hx of section (~1989) Hx laparoscopic cholecystectomy H/O dilation and curettage Hx of hysterectomy Family History Mother Stroke Cancer SKIN CANCER Sister Stroke Other Diabetes Myocardial infarct Denies family history of Anesthesia complication Bleeding disorder Social History Smoking and tobacco/nicotine status: former use of tobacco/nicotine (2ppd x 47 years quit Feb) Quit status (tobacco/nicotine): considering quitting Second hand smoke exposure: Yes Alcohol intake: former Substance/Drug Use: never Additional social history: Patient wants full code as discussed today 11/10/2024 but no prolonged CPR or life support Caregiver/support person: Yes Lives independently: Yes Household members: spouse Marital status: Current occupational status: disabled Pets and animals: Yes Do you think of yourself as: Straight/Heterosexual Current gender identity: Female Vitals/I&O/Wt Last Vital Signs Temp 98.0 F 03/11/25 11:09 Pulse 76 03/11/25 11:09 Resp 16 03/11/25 11:09 BP 149/73 03/11/25 11:09 Pulse Ox 95 03/11/25 11:09 O2 Del Method Room Air 03/11/25 11:09 O2 Flow Rate 3 03/07/25 17:10 FiO2 2 03/07/25 15:55 03/10/25 03/11/25 03/11/25 22:59 06:59 14:59 Intake Total 1698.75 / 1988.75 50 / 2038.75 259.583 / 259.583 Output Total 750 / 1000 Balance 1698.75 / 1738.75 -700 / 1038.75 259.583 / 259.583 Weight last 48 hrs Weight 91.172 kg Weight 93.922 kg Physical Exam Narrative: General: No acute distress, AO x3 HEENT: PERRLA, pupils bilaterally equal and reactive, pallors not present Chest: Normal vesicular breath sounds, no added sounds, equal good air entry bilaterally CVS: S1-S2 regular, no murmurs, no tachycardia, no gallops, no rubs Abdomen: Soft, nontender, no organomegaly, bowel sounds present Neuro: No focal deficits, no facial deformity, AO x3, power 5/5 in all limbs Data 03/11/25 09:56 03/11/25 09:56 Micro: Microbiology 03/10/25 08:30 Blood Culture - Preliminary Blood NEGATIVE TO DATE 03/10/25 08:30 Blood Culture - Preliminary Blood NEGATIVE TO DATE 03/07/25 13:45 Anaerobic Culture - Preliminary Hip - 30 Days Old 03/07/25 13:45 Gram Stain - Final Hip - #2 Abscess Culture - Final 03/07/25 13:45 Gram Stain - Final Hip - #1 Wound Culture - Final 03/07/25 13:45 Gram Stain - Final Hip - #4 Wound Culture - Final [id number] LOC: [facility] #: [id number] AGE/SX: 54/F ROOM: [facility] RE03/07/[address]: Cheng Mullen MD : 1970 BED: 1 DIS: FAX #: STATUS: ADM IN TLOC: Spec #: [id number] Amber: 03/10/25 Status: RES Req #: [id number] Recd: 03/10/[address]: Pamela Monge MD Src: Blood SpDesc: Ordered: Bcult Procedure Result Verified Site Blood Culture Preliminary 03/11/25 NEGATIVE TO DATE Blood Culture Preliminary (changed) 03/10/25 SPECIMEN COLLECTED [facility] [id number] LOC: [facility] U #: [id number] AGE/SX: 54/F ROOM: [facility] RE03/07/[address]: Cheng Mullen MD : 1970 BED: 1 DIS: FAX #: STATUS: ADM IN TLOC: Spec #: [id number] Amber: 03/07/25 Status: COMP Req #: [id number] Recd: 03/07/[address]: Cheng Mullen MD Src: Hip SpDesc: #4 Ordered: WC and GS Comments: Comment R HIP WOUND EXUDATE Procedure Result Verified Site Gram Stain Final 03/08/25-1818 Result MODERATE WHITE BLOOD CELLS NO ORGANISMS SEEN Wound Culture Final 03/10/25-932 NO GROWTH ON DAY 3 Wound Culture Preliminary (changed) 03/09/25-1442 NO GROWTH ON DAY 2 Wound Culture Preliminary (changed) 08/ NO GROWTH AT 18-24 HOURS NAME: Erin Kelley LOC: [facility] U #: [id number] AGE/SX: 54/F ROOM: [facility] RE03/07/[address]: Cheng Mullen MD : 1970 BED: 1 DIS: FAX #: STATUS: ADM IN TLOC: Spec #: [id number] Amber: 03/07/25 Status: RES Req #: [id number] Recd: 03/07/[address]: Cheng Mullen MD Src: Hip SpDesc: 30 Days Ol Ordered: Anaer Comments: Comment sinus tract right hip wound Procedure Result Verified Site Anaerobic Culture Preliminary 03/11/25-1144 NO ANAEROBES ISOLATED ON DAY 4 Anaerobic Culture Preliminary (changed) 03/10/25-1031 NO ANAEROBES ISOLATED ON DAY 3 Anaerobic Culture Preliminary (changed) 03/09/25-161 NO ANAEROBES ISOLATED ON DAY 2 Anaerobic Culture Preliminary (changed) 03/08/25-1903 NO ANAEROBES ISOLATED ON DAY 1 NAME: Erin Kelley LOC: [facility] U #: [id number] AGE/SX: 54/F ROOM: [facility] RE03/07/[address]: Cheng Mullen MD : 1970 BED: 1 DIS: FAX #: STATUS: ADM IN TLOC: Spec #: [id number] Amber: 03/07/25 Status: COMP Req #: [id number] Recd: 03/07/[address]: Cheng Mullen MD Src: Hip SpDesc: #2 Ordered: Absces Cult&GS Comments: Comment sinus tract right hip wound Procedure Result Verified Site Gram Stain Final 03/08/25-1753 Result NO WHITE BLOOD CELLS SEEN NO ORGANISMS SEEN Abscess Culture Final 03/10/25-934 NO GROWTH ON DAY 3 Abscess Culture Preliminary (changed) 03/09/25-1439 NO GROWTH ON DAY 2 Abscess Culture Preliminary (changed) 03/08/25-1753 NO GROWTH AT 18-24 HOURS NAME: Erin Kelley LOC: [facility] U #: [id number] AGE/SX: 54/F ROOM: 271 RE03/07/[address]: Cheng Mullen MD : 1970 BED: 1 DIS: FAX #: STATUS: ADM IN TLOC: Spec #: [id number] Amber: 03/07/25-1345 Status: COMP Req #: [id number] Recd: 03/07/25-[address]: Cheng Mullen MD Src: Hip SpDesc: #1 Ordered: WC and GS Comments: Comment right hip wound exudate Procedure Result Verified Site Gram Stain Final 03/08/25-1813 Result NO WHITE BLOOD CELLS SEEN NO ORGANISMS SEEN Wound Culture Final 03/10/25-933 NO GROWTH ON DAY 3 Wound Culture Preliminary (changed) 03/09/25-1432 NO GROWTH ON DAY 2 Wound Culture Preliminary (changed) 03/08/25-1813 NO GROWTH AT 18-24 HOURS Other data: PET/PET skull to thigh INIT [id number] IMPRESSION: 1. Anterior right upper lobe linear, FDG avid masslike consolidation, increased in size since 11/13/2024. Wall and inflammatory etiologies still a consideration given morphology, significant FDG avidity and growth does raise suspicion for neoplasm and neoplasia should be excluded. Consider tissue correlation. 2. Otherwise, previously noted areas of increased uptake throughout the chest noted on the prior PET-CT from 2020 have resolved. 3. Status post right hip total arthroplasty, with increased FDG uptake and inflammatory changes adjacent to the prosthesis. There is also a gas and fluid containing collection within the right gluteal soft tissues in the region of a previously noted hematoma. This may represent an infected hematoma. Correlate for signs of infection. A&P Assessment and plan 1. Abscess of hip, right: 2. History of right hip hemiarthroplasty: Plan: 54-year-old lady with past medical history as outlined above, who is presenting to the hospital with a chronically draining sinus over the right hip since mid January which has only partially responded to antibiotics over the course of these past weeks. She is now status post I&D, intraoperative findings included discovery of an abscess approximately 2 to 2.5 cm in diameter underneath the subcutaneous tissue and the fatty tissue. Pus was aspirated and sent for cultures, currently these remain negative to date. Blood cultures are additionally negative. Negative cultures need to be interpreted with caution in this case given that patient has been on oral cephalexin prior to the admission. She is currently on piperacillin/tazobactam and vancomycin at this time. While the OR findings are reassuring, patient does have several high risk factors for prosthetic joint infection by way of having a chronic draining sinus, being on a BEVERLY inhibitor, PET scan findings showing increased FDG uptake and inflammatory changes adjacent to the prosthesis, recent failure of outpatient oral antibiotics and elevated inflammatory markers. Given the above risk factors would prefer to treat this as a presumed PJI at this time with iv antibiotics Can narrow antibiotics to ceftriaxone 2 g IV daily and daptomycin 8 mg/kg IV every 24 hours. Recommend the above combination to be continued at discharge over the next 4 weeks. Thereafter we will likely plan to transition to oral antibiotics versus continue IV dependent on clinical progress. While on the above antibiotics, recommend to obtain weekly CBC, LFT, creatinine, CPK and fax it to infectious disease clinic for review. Obtain baseline CPK today. Weekly dressing change and labs to be performed at the infusion center. Follow-up in the infectious disease clinic on April 01, 2025. Thank you for this consult. Please call with any further questions or concerns. PDMP PDMP Reviewed: Not Reviewed Coding Level of Care Code Acute Code for Chg Fwd High MDM includes number and complexity of problems actively addressed during encounter, amount and/or complexity of data reviewed/ordered and described risk of complication, morbidity or mortality of management as documented Diagnoses Abscess of hip, right L02.415 History of right hip hemiarthroplasty Z96.641
--- NOTE | 2025-03-11 11:33 | PM.DCS ---
Discharge Providers Date of Admission: 03/07/25 16:34 Date of Discharge: March 11, 2025 Attending Provider at Admission: Pamela Monge MD Attending Provider at Discharge: Cheng Mullen MD Primary Care Provider: Nel Peacock MD Diagnoses at Discharge Discharge Diagnosis 1. Essential hypertension: 2. Heart failure: 3. PVD (peripheral vascular disease): 4. Type 2 diabetes mellitus with diabetic neuropathic arthropathy, with long-term current use of insulin: 5. Osteoporosis: 6. Rheumatoid arthritis, involving unspecified site, unspecified rheumatoid factor presence: 7. DDD (degenerative disc disease), cervical: 8. Centrilobular emphysema: 9. COPD (chronic obstructive pulmonary disease): 10. Mass of right lun. Abscess: 12. Draining cutaneous sinus tract: Reason for Visit Reason for Visit: [id number] Hospital Course Hospital Course Erin Kelley is a 54 year old female w/ 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 femoral neck fracture due to a mechanical fall on 11/10/2024 s/p R. hip replacement, Seropositive Rheumatoid Arthritis, Portal vein thrombosis, & IDDM2, right hip dislocation after hip hemiarthroplasty who presents [facility] status post persistent draining right sinus hip wound with subcutaneous abscess status status post open irrigation and debridement by orthopedic service. With history of hip dislocation endoprosthetic replacement of right hip secondary to fracture. And has a immunocompromised state on Xeljanz and Otezla and as needed steroids. Patient was monitored as inpatient, received broad-spectrum antibiotic therapy, cultures were followed, infectious disease was consulted. Patient has multiple appointments in [place], she would not be able to effectively start antibiotics over the next day. She was discharged on the short supply of oral antibiotics for 1 day, thereafter starting on she will start ceftriaxone 2 g IV daily, with daptomycin IV daily, follow-up with infectious disease as outpatient. Patient will follow-up with orthopedic services outpatient, continue to hold Xeljanz, Otezla, steroids on discharge. For history of portal vein thrombosis, she was on anticoagulation therapy for over 6 years, repeat ultrasound during prior admissions shows resolution, discussed risks and benefits of discontinuing anticoagulant therapy, shared decision making, she voiced understanding, all questions are, agreed to discontinue. She has a history of lung mass, recent history of bronchoscopy biopsy, follow-up with physician as outpatient For DVT prophylaxis discharged on aspirin 81 mg daily. Physical Exam Const: COMMON NORMALS: no acute distress and patient oriented x3 Resp: COMMON NORMALS: normal respiratory effort, No retractions, No use of accessory muscles and clear to auscultation bilaterally AUSCULTATION: clear to auscultation bilaterally Cardio: COMMON NORMALS: regular rate, regular rhythm, S1 normal heart sound present and S2 normal heart sound present RATE: regular rate RHYTHM: regular rhythm HEART SOUNDS: S1 normal heart sound present and S2 normal heart sound present GI: COMMON NORMALS: Normal to inspection, nondistended, normoactive bowel sounds present and non-tender Extremity: COMMON NORMALS: no pedal edema Neuro: COMMON NORMALS: patient oriented x3 Psych: COMMON NORMALS: mental status grossly normal Discharge Data Studies Completed and Pending Pending at discharge Category Date Time Status CXRP [XR chest 1V portable [id number]] Routine Exams 03/11/25 11:25 Ordered Anaerobic Culture Routine Lab 03/07/25 13:45 Results Blood Culture Stat Lab 03/10/25 08:30 Results Laboratory Results WBC 5.06 10^3/uL (3.29-11.43) 03/11/25 09:56 RBC 3.68 10^6/uL (3.85-5.65) L 03/11/25 09:56 Hgb 8.70 g/dL (11.27-16.99) L 03/11/25 09:56 Hct 29.4 % (36-47) L 03/11/25 09:56 MCV 79.9 fl (85-98) L 03/11/25 09:56 MCH 23.6 pg (27-33) L 03/11/25 09:56 MCHC 29.6 g/dL (30-55) L 03/11/25 09:56 RDW 17.6 % (12.1-15.1) H 03/11/25 09:56 Plt Count 209 10^3/cmm (157-399) 03/11/25 09:56 MPV 9.8 fL (7.4-10.4) 03/11/25 09:56 Neut % (Auto) 70.8 % 03/11/25 09:56 Lymph % (Auto) 16.2 % 03/11/25 09:56 Hodgeman % (Auto) 6.7 % 03/11/25 09:56 Eos % (Auto) 5.1 % 03/11/25 09:56 Baso % (Auto) 0.8 % 03/11/25 09:56 Neut # (Auto) 3.58 10^3/uL (1.8-7.7) 03/11/25 09:56 Lymph # (Auto) 0.8 10^3/uL (0.8-4.8) 03/11/25 09:56 Hodgeman # (Auto) 0.3 10^3/uL (0.2-0.9) 03/11/25 09:56 Eos # (Auto) 0.3 10^3/uL (0.0-0.8) 03/11/25 09:56 Baso # (Auto) 0.0 10^3/uL (0.0-0.1) 03/11/25 09:56 Nucleated RBC % (auto) 0 % 03/11/25 09:56 Nucleated RBCs # 0.0 /100WBC 03/11/25 09:56 ESR 42 mm/hr (0-15) H 03/10/25 13:39 Sodium 135 mmol/L (136-145) L 03/11/25 09:56 Potassium 3.8 mmol/L (3.5-5.1) 03/11/25 09:56 Chloride 104 mmol/L (98-107) 03/11/25 09:56 Carbon Dioxide 20 mmol/L (22-29) L 03/11/25 09:56 Anion Gap 14.8 (5-19) 03/11/25 09:56 BUN 4 mg/dL (6-20) L 03/11/25 09:56 Creatinine 0.4 mg/dL (0.5-0.9) L 03/11/25 09:56 GFR Calculation 165.1 mL/min (90-130) H 03/11/25 09:56 Glucose 272 mg/dL (65-115) H 03/11/25 09:56 POC Glucose 337 mg/dL (70-110) H 03/11/25 10:44 Estimat Average Glucose 194 03/10/25 08:30 Hemoglobin A1c 8.4 % (4.0-6.0) H 03/10/25 08:30 Calculated Osmolality 287 mOsm/kg (285-295) 03/11/25 09:56 Calcium 8.3 mg/dL (8.5-10.5) L 03/11/25 09:56 Magnesium 1.8 mg/dL (1.7-2.3) 03/10/25 08:30 Total Bilirubin 0.3 mg/dL (0.15-1.2) 03/11/25 09:56 AST 41 U/L (0-32) H 03/11/25 09:56 ALT 26 U/L (0-33) 03/11/25 09:56 Alkaline Phosphatase 417 U/L (35-105) H 03/11/25 09:56 Creatine Kinase 27 U/L (26-192) 03/11/25 09:56 C-Reactive Protein 33.1 mg/L (0.0-4.9) H 03/10/25 13:39 Total Protein 6.0 g/dL (6.6-8.7) L 03/11/25 09:56 Albumin 2.8 g/dL (3.5-5.2) L 03/11/25 09:56 Globulin 3.2 g/dL (1.3-4.6) 03/11/25 09:56 Procalcitonin 0.19 ng/mL (0-0.5) 03/10/25 08:30 Vancomycin Trough 15.7 ug/mL (10-15) H 03/09/25 17:20 Vitals Last Vital Signs Temp 98.0 F 03/11/25 11:09 Pulse 76 03/11/25 11:09 Resp 16 03/11/25 11:09 BP 149/73 03/11/25 11:09 Pulse Ox 95 03/11/25 11:09 O2 Del Method Room Air 03/11/25 11:09 O2 Flow Rate 3 03/07/25 17:10 FiO2 2 03/07/25 15:55 Discharge Plan Discharge Patient Disposition: Home Condition: Stable Prescriptions: Continued omeprazole 40 mg capsule,delayed release(DR/EC) 40 mg PO QAM rosuvastatin [Crestor] 20 mg tablet 10 mg PO QAM alprazolam 0.25 mg tablet 0.25 mg PO DAILY PRN (Reason: anxiety) nitroglycerin [Nitrostat] 0.4 mg tablet, sublingual 0.4 mg SUBLINGUAL Q5M PRN (Reason: chest pain) 30 Days Qty: 25 6RF Rx Instructions: until response; do not exceed 3 doses per episode albuterol sulfate 2.5 mg /3 mL (0.083 %) Solution For Nebulization 2.5 mg INHALATION Q6H PRN (Reason: Shortness Of Breath) aspirin 81 mg Tablet,Delayed Release (Dr/Ec) 81 mg PO DAILY@0800 ropinirole 3 mg tablet 3 mg PO BEDTIME acetaminophen 500 mg Tablet 1,000 mg PO Q12H PRN (Reason: Pain) magnesium hydroxide [Milk of Magnesia] 400 mg/5 mL Suspension 30 ml PO DAILY PRN (Reason: Constipation) guaifenesin [Mucinex] 600 mg Tablet Extended Release 12hr 600 mg PO Q12H PRN (Reason: Congestion) cholecalciferol (vitamin D3) [Vitamin D3] 125 mcg (5,000 unit) Tablet 125 mcg PO DAILY gabapentin 300 mg capsule 300 mg PO BID ramipril 5 mg capsule 2.5 mg PO DAILY folic acid 1 mg tablet 1 mg PO DAILY insulin glargine [Lantus Solostar U-100 Insulin] 100 unit/mL (3 mL) insulin pen 30 unit SUBCUT QAM Combivent Respimat 20-100 mcg/actuation mist 20 - 100 puff INHALATION DAILY sertraline [Zoloft] 100 mg tablet 100 mg PO QPM insulin lispro [Humalog U-100 Insulin] 100 unit/mL solution 100 unit SUBCUT DIRECTED Rx Instructions: Inject 3 times daily, after meals, based on high-dose insulin sliding scale Held prednisone 5 mg tablet 5 mg PO DAILY Hold Instructions: Resume on 06/12/25. prednisone 10 mg tablet 10 mg PO DAILY PRN (Reason: joint pain) Hold Instructions: Resume on 06/12/25. Otezla 30 mg tablet 30 mg PO BID Qty: 60 5RF Hold Instructions: Resume on 06/12/25. Xeljanz 5 mg tablet 5 mg PO BID Qty: 60 5RF Hold Instructions: Resume on 06/12/25. hold unitl you see rheumatology Discontinued cephalexin 500 mg capsule 500 mg PO TID Qty: 42 0RF oxycodone 10 mg tablet 5 mg PO Q4H PRN (Reason: Pain) 5 Days Qty: 15 0RF Eliquis 5 mg tablet 5 mg PO DAILY No Action fluticasone propion-salmeterol [Advair Diskus] 250-50 mcg/dose blister with device 1 inh inhalation Q12H Qty: 60 5RF Cloth Presser OK for DC: Orthopedics Discharge Order = DC NOW: Discharge Order (Routine); Ordered 03/11/25 Ordered By: Jaydon Lane Other Ambulatory Orders: Miscellaneous Procedure (Order) Location: None Selected Ordered By: Jaydon Lane Referrals: Infectious Disease Group [facility] [Provider Group, Infectious Disease] - 04/01/25 2:30 pm [facility] [Outside] Referral Note: This will be the company supplying your IV abx. You can call [phone] with any questions. [facility] Infusion Center [Outside] Referral Note: You will come here for your PICC line dressing change and labs weekly. They will call you with an appointment. If you have not heard from them by please call to schedule. Nel Peacock MD [Primary Care Provider, Internal Medicine] - 4-7 days Referral Note: We have notified your physician's clinic of the need for a follow-up appointment to be scheduled. If you have not heard from them within the next 2 business days, please call them directly. Cheng Mullen MD [Physician, Orthopedics] - 03/17/25 8:45 am Referral Note: Discharge Diet: Diabetic Discharge Activity: Resume usual activity Patient Instructions: Cefdinir (By mouth), Linezolid (By mouth) (Zyvox), Acute Wound Care (DC), Abscess (GEN), Opioid Safety, Post Anesthesia Care, Patient Portal & [facility] Instructions Activity Restrictions/Additional Instructions: - Start IV antibiotics on - Continue p.o. antibiotics today - Keep area clean and dry Discharge Attestations Time Spent in Discharge Care*: greater than 30 min Status at Discharge: Cognitive status at discharge: cognitively intact, Behavioral status at discharge: cooperative, Quality Metrics Clinical Quality Measures [ No reported AMI, CVA or VTE this stay] Coding Level of Care Code 74992 Total time (in minutes) for Discharge: 45 Diagnoses Essential hypertension I10 Heart failure I50.9 PVD (peripheral vascular disease) I73.9 Type 2 diabetes mellitus with diabetic neuropathic arthropathy, with long-term current use of insulin E11.610; Z79.4 Diabetes mellitus complication detail: with neuropathic arthropathy Diabetes mellitus complication status: with diabetic arthropathy Diabetes mellitus longitudinal float operator insulin use: with longitudinal float operator use Diabetes mellitus type: type 2 Osteoporosis M81.0 Rheumatoid arthritis, involving unspecified site, unspecified rheumatoid factor presence M06.9 Rheumatoid arthritis location: unspecified site Rheumatoid factor presence: unspecified presence DDD (degenerative disc disease), cervical M50.30 Centrilobular emphysema J43.2 Emphysema type: centrilobular COPD (chronic obstructive pulmonary disease) J44.9 Mass of right lung R91.8 Abscess L02.91 Draining cutaneous sinus tract L98.8
--- NOTE | 2025-03-11 12:35 | PICC.NOTE ---
Single lumen PICC placed to right basilic vein. Referred to vascular access nurse for PICC placement due to need for home antibiotics. Risks and benefits discussed and informed consent obtained from pt. Right arm assessed with right basilic vein measuring 3.6 mm, straight, and apparent best choice for placement. Using sterile technique and MST, right basilic vein accessed x 1 stick. Mid-arm circumference measured 10 cm from right AC 30 cm. Trimmed cath 42 cm with 0 cm external length noted. CXR shows tip to appear to be in distal SVC. Awaiting radiologist to read. Line secured with stat-lock. Insertion site covered with Biopatch and TSM. Report given to bedside nurse, Aruna RN. Teaching and written educational material provided for home care of PICC.
--- NOTE | 2025-03-11 15:21 | PC.OT ---
OT TREATMENT HELD DUE TO SCHEDULED PATIENT D/C
[2025-03-11 15:22] VITALS: BP 149/73; PULSE 76; RESP 16; TEMP 36.6; O2SAT 95
== END 2025-03-11 15:24 | disposition home or self-care (01) | DRG 464 ==
LOC: MEDSURG 16:34
PROVIDERS: Family Medicine; Student in an Organized Health Care Education/Training Program; Admitting Provider Internal Medicine; PCP Internal Medicine; Visit Provider Orthopaedic Surgery
DX: T84.51XA Infection and inflammatory reaction due to internal right hip prosthesis, initial encounter (principal); D84.821 Immunodeficiency due to drugs; L02.91 Cutaneous abscess, unspecified; Y79.8 Miscellaneous orthopedic devices associated with adverse incidents, not elsewhere classified; I11.0 Hypertensive heart disease with heart failure; I50.9 Heart failure, unspecified; E11.51 Type 2 diabetes mellitus with diabetic peripheral angiopathy without gangrene; E11.610 Type 2 diabetes mellitus with diabetic neuropathic arthropathy; M81.0 Age-related osteoporosis without current pathological fracture; M05.9 Rheumatoid arthritis with rheumatoid factor, unspecified; M47.812 Spondylosis without myelopathy or radiculopathy, cervical region; J43.2 Centrilobular emphysema; R91.8 Other nonspecific abnormal finding of lung field; Z96.641 Presence of right artificial hip joint; M79.7 Fibromyalgia; F17.200 Nicotine dependence, unspecified, uncomplicated; Z79.899 Other long term (current) drug therapy; Z79.82 Long term (current) use of aspirin; Z79.4 Long term (current) use of insulin; Z89.511 Acquired absence of right leg below knee; Z86.718 Personal history of other venous thrombosis and embolism; Z86.16 Personal history of COVID-19
CPT/HCPCS: 36415; 36416; 36573; 71045; 80053; 80202; 82550; 82962; 83036; 83735; 84145; 85025; 85651; 86140; 87040; 87070; 87075; 87205; 94664; 96372; 97162; 97166; 97530; 97535; J0690; J0696; J0878; J1100; J1644; J1815; J2250; J2270; J2405; J2543; J2704; J3010; J3373; J3490; J7030; J9999; P9045

== ENCOUNTER → 2025-03-11 15:22 | Outpatient (BNVA) | payer MEDICAID, SELFPAY | PROVIDERS: PCP Internal Medicine; Visit Provider Internal Medicine | DX: J43.9 Emphysema, unspecified (principal); R91.8 Other nonspecific abnormal finding of lung field; Z87.891 Personal history of nicotine dependence | CPT/HCPCS: 99215; Q3014 ==

== ENCOUNTER → 2025-03-17 08:46 | Outpatient (BNVA) | payer MEDICAID, SELFPAY | PROVIDERS: PCP Internal Medicine; Visit Provider Orthopaedic Surgery | DX: Z96.641 Presence of right artificial hip joint (principal) | CPT/HCPCS: 99024 ==

== ENCOUNTER → 2025-04-01 14:28 | Outpatient (BNVA) | payer MEDICAID, SELFPAY | PROVIDERS: PCP Internal Medicine; Visit Provider Student in an Organized Health Care Education/Training Program | DX: L02.415 Cutaneous abscess of right lower limb (principal); T84.51XA Infection and inflammatory reaction due to internal right hip prosthesis, initial encounter; X58.XXXA Exposure to other specified factors, initial encounter | CPT/HCPCS: 99205 ==

== ENCOUNTER 2025-04-01 16:01 | Outpatient (CLI) | payer MEDICAID, SELFPAY ==
--- NOTE | 2025-04-01 16:00 | USR_ITS ---
PROCEDURE INFORMATION: Exam: US Duplex Right Lower Extremity Veins, Limited Exam date and time: 04/01/2025 4:18 PM Age: 54 years old Clinical indication: Pain; Arm, upper; Right; Additional info: Assess for dvt, picc associated dvt suspected TECHNIQUE: Imaging protocol: Real-time duplex ultrasound of the right extremity with 2-D oviedo scale, color Doppler flow and spectral waveform analysis including responses to compression and other maneuvers (when performed) with image documentation. Limited exam was focused on the right lower extremity veins. COMPARISON: CT hip RT wo con* [id number] 11/24/2024 9:01 AM FINDINGS: Right deep veins: Unremarkable. The common femoral, femoral, proximal profunda femoral and popliteal veins are patent without thrombus. Normal Doppler waveforms. Normal compressibility and/or augmentation response. Superficial veins: Greater saphenous vein at the saphenofemoral junction is patent without thrombus. Soft tissues: Unremarkable. US/[place] [id number] IMPRESSION: No evidence of deep vein thrombosis.
== END 2025-04-01 16:02 | disposition home or self-care (01) ==
LOC: RAD 16:01
PROVIDERS: PCP Internal Medicine; Visit Provider Student in an Organized Health Care Education/Training Program
DX: M79.621 Pain in right upper arm (principal)
CPT/HCPCS: 93971

== ENCOUNTER 2025-04-04 14:30 | Oncology outpatient (recurring) (ONCR) | payer MEDICAID, SELFPAY ==
[2025-03-19 10:10] LABS: Hematocrit 29.3 % (36-47); Hemoglobin 8.80 g/dL (11.27-16.99); Mean Corpuscular HGB Conc 30.0 g/dL (30-55); Mean Corpuscular Hemoglobin 23.8 pg (27-33); Mean Corpuscular Volume 79.2 fl (85-98); Nucleated Red Blood Cells % 0 %; Platelet Count 223 10^3/cmm (157-399); Red Blood Count 3.70 10^6/uL (3.85-5.65); White Blood Count 6.51 10^3/uL (3.29-11.43)
[2025-03-19 10:28] LABS: Alanine Aminotransferase 8 U/L (0-33); Albumin Level 2.6 g/dL (3.5-5.2); Alkaline Phosphatase 234 U/L (35-105); Globulin 3.9 g/dL (1.3-4.6); Total Protein 6.5 g/dL (6.6-8.7)
[2025-03-19 10:30] LABS: Aspartate Amino Transferase 18 U/L (0-32)
[2025-03-25 13:25] LABS: Hematocrit 30.7 % (36-47); Hemoglobin 9.10 g/dL (11.27-16.99); Mean Corpuscular HGB Conc 29.6 g/dL (30-55); Mean Corpuscular Hemoglobin 23.3 pg (27-33); Mean Corpuscular Volume 78.7 fl (85-98); Nucleated Red Blood Cells % 0 %; Platelet Count 284 10^3/cmm (157-399); Red Blood Count 3.90 10^6/uL (3.85-5.65); White Blood Count 9.63 10^3/uL (3.29-11.43)
[2025-03-25 13:43] LABS: Alanine Aminotransferase 12 U/L (0-33); Albumin Level 2.8 g/dL (3.5-5.2); Alkaline Phosphatase 303 U/L (35-105); Aspartate Amino Transferase 16 U/L (0-32); Globulin 4.3 g/dL (1.3-4.6); Total Protein 7.1 g/dL (6.6-8.7)
--- NOTE | 2025-04-04 14:30 | PETR_ITS ---
PROCEDURE INFORMATION: Exam: PET/CT Skull Base to Mid-thigh Exam date and time: 04/04/2025 3:23 PM Age: 54 years old Clinical indication: Abnormal findings; Abnormal finding of lung field; Follow up lung consolidation LABS AND CLINICAL REPORTS: Glucose: 104 mg/dl Treatment strategy for malignancy (PET staging): Restaging (PS) TECHNIQUE: Imaging protocol: Following at least four-hour fasting and following the injection of radiopharmaceutical, low dose CT images were obtained. Then, PET images were obtained. Attenuation corrected images were constructed using the CT scan. Fused images of PET and CT were reviewed. The standardized uptake values (SUV) reported below are maximum values within a region of interest, expressed in gm/ml. Exam includes orbital meatal line to mid-thigh. SUV normalization method: BodyWeight Radiopharmaceutical: 11.1 mCi F-18 FDG (Fluorodeoxyglucose), IV. Time of imaging post radiopharmaceutical administration: 47 minutes Injection site: R FOREARM COMPARISON: 1. PT PET skull to thigh INIT [id number] 01/24/2025 10:[address] chest ION (PULM ONLY) [id number] 02/20/2025 9:31 AM FINDINGS: Brain: Visualized brain has normal physiologic uptake. Oral cavity: Asymmetric yzuz-fufuraf-exef-right submandibular FDG uptake with 3 mm left submandibular calcification on axial image 35. Left submandibular gland SUV max 5.3 and right submandibular gland SUV max 3.6. Pharynx: No abnormal uptake. Larynx: Symmetric FDG uptake without underlying CT abnormality is likely benign. Lungs, pleura and trachea: Much decreased right upper lobe consolidation with residual platelike opacity along the minor fissure showing SUV max 5.2, previously 11.5. Mild bilateral lower lobe dependent subpleural reticulation and ground-glass attenuation with associated FDG uptake. Right lung calcified granuloma. Heart: Normal physiologic uptake. Coronary arteries: Heavy coronary artery calcification. Mediastinal space: No abnormal uptake. Liver: No abnormal uptake. Stable presumed focal fat adjacent to the fissure for the ligamentum teres. Gallbladder and biliary ducts: No abnormal uptake. Prior cholecystectomy with stable common duct dilatation. Pancreas: No abnormal uptake. Stable tiny pancreatic head calcifications. Spleen: No abnormal uptake. Calcified granulomata. Adrenal glands: No abnormal uptake. Kidneys and ureters: Normal physiologic uptake. Stomach and bowel: No abnormal uptake. Vasculature: No abnormal uptake. Moderate systemic atherosclerotic calcification without aortic aneurysm. Lymph nodes: Mild FDG-avid right hilar fullness suggestive of prominent lymph nodes shows SUV max 4.7 on axial image 104. Lower level uptake at mildly prominent subcarinal node and left chan. Increased FDG avid right inguinal lymphadenopathy with developed uptake at right inguinal node showing SUV max 8.9 on axial image 261 as well as couple stable FDG avid right inguinal lymph nodes. Skeleton: Interval subacute healing nondisplaced lateral left 8th rib fracture with associated FDG uptake. Similar right hip arthroplasty changes with resolved subcutaneous gas fluid collection now with bandlike scarring. Stable surrounding soft tissue thickening with couple adjacent fluid density areas posteriorly spanning approximately 7 x 2.8 cm on axial image 256 with increased FDG uptake showing SUV max 15.8, previously 7.0. Increased FDG uptake at proximal right hamstring tendon. Soft tissues: See above. METRICS: Mediastinal blood pool: SUV mean 2.4 Liver uptake: SUV mean 3.1 PET/PET skull to thigh INIT [id number] IMPRESSION: 1. Much decreased right upper lobe consolidation with residual platelike opacity along the minor fissure showing decreased FDG uptake. 2. Mild bilateral lower lobe dependent subpleural reticulation and ground-glass attenuation with associated FDG uptake favored to be gravitational, inflammatory or possibly infectious process not entirely excluded. 3. Mild mediastinal and bilateral hilar lymphadenopathy favored to be benign reactive or granulomatous, neoplastic process not excluded. 4. Asymmetric xcfq-hdwlylb-nwed-right submandibular FDG uptake is likely inflammatory sialadenitis in the setting of 3 mm left submandibular gland calcification compatible with sialolith. 5. Similar right hip arthroplasty changes with resolved subcutaneous gas fluid collection. Stable surrounding soft tissue thickening with couple adjacent fluid density areas posteriorly spanning 7 cm with increased FDG uptake. Although this may represent postsurgical change with seroma(s), correlate for evidence of infection given increased uptake and mildly increased right inguinal lymphadenopathy. 6. Interval subacute healing nondisplaced lateral left 8th rib fracture. 7. Additional chronic and incidental findings as above.
== END 2025-04-08 23:59 | disposition home or self-care (01) ==
LOC: ONCMED 04-07 09:12
PROVIDERS: Student in an Organized Health Care Education/Training Program; PCP Internal Medicine; Visit Provider Internal Medicine Medical Oncology
DX: Z53.9 Procedure and treatment not carried out, unspecified reason; R91.8 Other nonspecific abnormal finding of lung field; R59.0 Localized enlarged lymph nodes; R93.89 Abnormal findings on diagnostic imaging of other specified body structures; Z96.641 Presence of right artificial hip joint; M79.89 Other specified soft tissue disorders; J84.10 Pulmonary fibrosis, unspecified; I25.10 Atherosclerotic heart disease of native coronary artery without angina pectoris; Z90.49 Acquired absence of other specified parts of digestive tract; D73.89 Other diseases of spleen; I70.0 Atherosclerosis of aorta; S22.32XD Fracture of one rib, left side, subsequent encounter for fracture with routine healing; X58.XXXD Exposure to other specified factors, subsequent encounter
CPT/HCPCS: 36592; 78815; 80076; 82550; 82565; 85025; A9552

== ENCOUNTER → 2025-04-07 09:29 | Outpatient (BNVA) | payer MEDICAID, SELFPAY | PROVIDERS: PCP Internal Medicine; Visit Provider Orthopaedic Surgery | DX: J43.9 Emphysema, unspecified (principal); S72.001D Fracture of unspecified part of neck of right femur, subsequent encounter for closed fracture with routine healing; R91.8 Other nonspecific abnormal finding of lung field; J84.89 Other specified interstitial pulmonary diseases; Z98.890 Other specified postprocedural states; Z87.891 Personal history of nicotine dependence; Y99.9 Unspecified external cause status | CPT/HCPCS: 99024; 99212 ==

== ENCOUNTER → 2025-05-20 10:27 | Outpatient (BNVA) | payer MEDICAID, SELFPAY | PROVIDERS: PCP Internal Medicine; Visit Provider Internal Medicine Rheumatology | DX: M05.79 Rheumatoid arthritis with rheumatoid factor of multiple sites without organ or systems involvement (principal); Z79.899 Other long term (current) drug therapy; Z71.85 Encounter for immunization safety counseling; M79.7 Fibromyalgia; L40.0 Psoriasis vulgaris; Z89.511 Acquired absence of right leg below knee | CPT/HCPCS: 99214 ==

== ENCOUNTER → 2025-06-12 08:18 | Outpatient (BNVA) | payer MEDICAID, SELFPAY | PROVIDERS: PCP Internal Medicine; Visit Provider Internal Medicine | DX: J84.9 Interstitial pulmonary disease, unspecified (principal); M35.9 Systemic involvement of connective tissue, unspecified; R91.1 Solitary pulmonary nodule; J44.9 Chronic obstructive pulmonary disease, unspecified; M06.9 Rheumatoid arthritis, unspecified; F17.219 Nicotine dependence, cigarettes, with unspecified nicotine-induced disorders | CPT/HCPCS: 99214 ==

== ENCOUNTER 2025-07-01 18:01 | Emergency (ER) | payer MEDICAID, SELFPAY ==
--- OUTSIDE RECORDS SUMMARY | 2024-05-04 03:00 | XMS_ITS ---
Author Organization [facility] Address [address] [place] [address] Care Team Providers Care Preformer [employer] Name Role Phone Peter Bates Unavailable [phone] Migration, Provider Unavailable Unavailable REASON FOR VISIT EMR-Abel Encounters Encounter Location Date Provider Diagnosis Migrated_Facility 0 0 05/04/2024 Provider Migration Plan Of Treatment Next Appt Details Provider Name:Francisco Bond, 07/23/2025 02:20:00 PM, [address] [place], [phone], Progress Notes * SAMANTARebecaa SDOB:[birth year] (54 yo F)Acc No.[id number]:05/04/2024 Patient: Erin SMITH :1970 A ge:53 Y S ex:Female Address:[address] [place] [address], [id number] Subjective: * Chief Complaints: * E MR-Abel * * Date:
--- OUTSIDE RECORDS SUMMARY | 2024-05-05 03:00 | XMS_ITS ---
Author Organization [facility] Address [address] [place] [address] Care Team Providers Care Billing Checker Name Role Phone Peter Bates Unavailable [phone] Migration, Provider Unavailable Unavailable REASON FOR VISIT EMR-Abel Encounters Encounter Location Date Provider Diagnosis Migrated_Facility 0 0 05/05/2024 Provider Migration Plan Of Treatment Next Appt Details Provider Name:Francisco Bond, 07/23/2025 02:20:00 PM, [address] [place], [phone], Progress Notes * SAMANTARebecaa SDOB:[birth year] (54 yo F)Acc No.[id number]:05/05/2024 Patient: Erin SMITH :1970 A ge:53 Y S ex:Female Address:[address] [place] [address], [id number] Subjective: * Chief Complaints: * E MR-Abel * * Date:
[2025-07-01 18:06] VITALS: BP 132/83; PULSE 82; RESP 17; TEMP 36.9; O2SAT 99; BMI 31.6
--- OUTSIDE RECORDS SUMMARY | 2025-07-01 18:06 | XMS_ITS | Clinical Summary ---
Author Organization [facility] Address [address] [place]: [place] [address] Care Team Providers Care Breakfast Manager Name Role Phone Nel Peacock MD Primary Care Provider [phone]- [phone] Allergies Active Allergy Reactions Criticality Noted Date Comments Bee Venom Protein (Honey Bee) Anaphylaxis High 11/14 Topiramate Delirium High 11/14/2024 Medications Dexcom G6 Sensor Device APPLY 1 DEVICE TO SKIN DIRECTED EVERY 10 DAYS 3 Active EPINEPHrine (EPIPEN) 0.3 mg/0.3 mL Auto-Injector Inject 0.3 mL (0.3 mg) by intramuscular injection one time as needed for Anaphylaxis. 1 Each 3 Active ergocalciferol (VITAMIN D2) 50,000 unit capsule Take 1 Capsule (50,000 Units) by mouth every 7 days. 7 Capsule 3 Active insulin aspart U-100 (NovoLOG FlexPen U-100 Insulin) 100 unit/mL pen syringe Inject 4 Units by subcutaneous injection 3 times daily with meals. Hold if blood sugar is less than 140mg/dl 3 mL 3 Active tofacitinib (Xeljanz) 5 mg Tablet Take 5 mg by mouth 2 times daily. Active rosuvastatin (CRESTOR) 20 mg tablet Take 1 Tablet (20 mg) by mouth daily. 30 Tablet 5 Active omeprazole (PriLOSEC) 40 mg Capsule, Delayed Release(E.C.) Take 1 Capsule (40 mg) by mouth daily. 30 Capsule 5 Active umeclidinium (INCRUSE ELLIPTA) 62.5 mcg/actuation Disk with Device Take 1 Puff by inhalation daily. 1 Each 5 Active fluticasone furoate-vilant Daniel (BREO ELLIPTA) 100-25 mcg/dose Disk with Device Take 1 Puff by inhalation daily. 1 Each 5 Active vitamin B complex Tablet Take 1 Tablet by mouth daily. 30 Tablet 5 Active acetaminophen (TYLENOL) 325 mg tablet Take 2 Tablets (650 mg) by mouth every 6 hours as needed for Pain, Mild, Pain, Moderate or Temperature (See admin instructions). 5 Active albuterol sulfate HFA 90 mcg/actuation aerosol inhaler Take 2 Puffs by inhalation 2 times daily. 8.5 Gram 5 Active apixaban (Eliquis) 5 mg tablet Take 1 Tablet (5 mg) by mouth 2 times daily. 60 Tablet 5 Active aspirin (ECOTRIN EC) 81 mg Tablet, Delayed Release (E.C.) Take 1 Tablet (81 mg) by mouth daily. 30 Tablet 5 Active oxyCODONE (ROXICODONE) 5 mg tabletIndicati ons:Closed fracture of neck of right femur with routine healing, subsequent encounter Take 1 Tablet (5 mg) by mouth every 6 hours as needed for Pain, Severe. Max Daily Amount: 20 mg 20 Tablet Active rOPINIRole (REQUIP) 3 mg Tablet Take 1 Tablet (3 mg) by mouth daily at bedtime. 30 Tablet 5 Active sertraline (ZOLOFT) 100 mg tablet Take 1 Tablet (100 mg) by mouth daily. 30 Tablet 5 Active insulin glargine (LANTUS) 100 unit/mL vial Inject 25 Units by subcutaneous injection daily with breakfast. 10 mL 5 Active naloxone (NARCAN) 4 mg/spray [place], Non-Aerosol EMERGENCY USE ONLY: Administer 1 spray (4 mg) in one nostril one time. May repeat in alternating nostrils every 2-3 min until responsive or EMS arrives. 2 Each 3 5 Active Active Problems Problem Noted Date Diagnosed Date Confusion 12/16/2024 Class 1 obesity 11/28/2024 Leukocytosis (leucocytosis) 11/27/2024 Hyponatremia 11/27/2024 Fracture of neck of right femur 11/27/2024 Hip dislocation, right 11/27/2024 Portal vein thrombosis 11/27/2024 Bronchiectasis 11/17/[address] of the chest 11/17/2024 Type 2 diabetes mellitus wit h hyperglycemia, with long-term current use of insulin 11/17/2024 Closed fracture of neck of right femur Status post hip surgery 11/17/2024 Normocytic anemia 11/17/2024 Cigarette nicotine dependence without complicati on 11/17/2024 Pulmonary edema 11/16/2024 Sleep apnea 11/16/2024 COPD (chronic obstructive pulmonary disease) 03/2025 Acute hypoxic respiratory failure 11/15/2024 Cognitive dysfunction 02/02/2023 Uncontrolled daytime somnolence 01/30/2023 Cellulitis of hand,LEFT 01/26/2023 Urinary retention 01/26/2023 Hypertension 01/21/2023 Multiple Fractures after a F all with s/p ORIF for R Ankle d/t Distal Tibia and Fibula Fractures 01/18/2023 Primary thrombocytopenia 01/18/2023 Peripheral vascular disease 01/18/2023 Essential hypertension 01/18/2023 Obesity (BMI 30.0-34.9) 01/18/2023 Anemia 01/18/2023 Elevated liver enzymes 01/18/2023 Age-related nuclear cataract, bilateral 06/10/20 Dry eyes due to decreased tear production 2020 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 9) with comorbidity 11/27/2024 11/28/2024 Encounters Date Type Department Care Team Description 04/29/2025 External Device Data [facility] ABSTRACTION Provider, Abstract 04/08/2025 External Device Data [facility] ABSTRACTION Provider, Abstract from Last 3 Months Immunizations Immunization Administration Dates Next Due (TDVAX)(7 YRS UP) TETANUS AN D DIPHTHERIA TOXOIDS, ADSORBED (2 LF OF TETANUS TOXOID AND 2 LF OF DIPHTHERIA TOXOID), 0.5ML (PF), IM 01/23/1998 Family History Medical History Relation Name Comments Cancer Father Prostate Glaucoma Maternal Grandfather Diabetes Maternal Grandmother Diabetes Mother Hypertension Mother Stroke Mother Cancer Sister Brain Relation Name Status Comments Father Maternal Grandfather Maternal Grandmother Mother Sister Social History Tobacco Use Types Packs/Day Years Used Date Smoking Tobacco: Every Day Cigarettes 0.3 40 Passive Smoke Exposure: Current Tobacco Cessation:Ready to Q uit: Not Asked; Counseling Given: Not Answered Comments:2 cigs a day, cutting back Alcohol Use Standard Drinks/Week Comments No 0 (1 standard drink = 0.6 oz pur e alcohol) Feeling Safe Answer Date Recorded Are you in a relationship wi th someone who hurts you emotionally and/or physically? 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 Gender Identity Not on file Sexual Orientation Not on file Last Filed Vital Signs Vital Sign Reading Time Taken Comments Blood Pressure 113/75 12/18/2024 9:00 AM CDT Pulse 89 12/18/2024 9:00 AM CDT Temperature 36.6 C (97.8 F) 12/18/2024 12:34 AM CDT Respiratory Rate 18 12/18/2024 12:34 AM CDT Oxygen Saturation 91% 12/18/2024 9:00 AM CDT Inhaled Oxygen Concentration - - Weight 85.9 kg (189 lb 6.4 oz) 12/11/2024 11:00 AM CDT Height 165.1 cm (5' 5 ) 11/27/2024 10:33 PM CDT Body Mass Index 31.52 11/27/2024 10:33 PM CDT Plan of Treatment Health Maintenance Due Date Last Done Comments DIABETES ANNUAL FOOT EXAM 1986 DIABETES MICROALBUMIN ANNUAL SCREEN 1986 LDL CHOLESTEROL ANNUAL 1986 HEPATITIS B VACCINES (1 of 3 - 19+ 3-dose series) 09/23/1987 DTAP/TDAP/TD VACCINES (1 - Tdap) 01/24/1998 01/23/19 98 BREAST CANCER SCREENING 2008 COLORECTAL SCREENING 2013 Colorectal Cancer Screening 2013 FIT-DNA Q 3 years 2013 FIT/FOBT Q 1 year 2013 Flex Sig/CT Colonography Q 5 years 2013 ZOSTER VACCINE (1 of 2) 2018 DIABETES HBA1C Q 6 MONTHS 05/21/2023 11/18/2022 DIABETES ANNUAL RETINAL EXAM 01/04/2024, 01/03/2023, 01/03/2023, Additional history exists INFLUENZA VACCINE (#1) 2025 COVID-19 Vaccine (2024-2 6 season) 2025 02/25/2021, 01/28/2021 Medical Devices Implanted Type Area [employer] Device Identifier Shelf Expiration Date Model / Serial / Lot Ring Tension Capsular Type 14c [id number] - [id number] Implanted:Qty: 1 on 09/27/2022 by Jose Donnelly MD at [facility] Left: Eye [employer] [facility] [employer] 12/06/2026 [id number] / [id number] / Ring Tension Capsular Type 14c Mr-1420 - [id number] Implanted:Qty: 1 on 10/18/2022 by Jose Donnelly MD at [facility] Eye Right: Eye [employer] [employer] 02/06/2027 [id number] / [id number] / [facility] Iol Tecnis Ey[employer] 23.0 [id number] - [id number] Implanted:Qty: 1 on 09/27/2022 by Jose Donnelly MD at [facility] Left: Eye [employer] 01/21/2025 [id number] / [id number] / Lens Iol Tecnis Eyhance 23.5 [id number] - [id number] Implanted:Qty: 1 on 10/18/2022 by Jose Donnelly MD at [facility] Right: Eye [employer] 04/03/2025 [id number] / [id number] / Procedures Procedure Name Priority Date/Time Associated Diagnosis Comments RETINAL PHOTO COAGULATION RIGHT Routine 04/25/2016 12:29 PM CDT Type 1 diabetes mellitus with proliferative retinopathy of both eyes without macular edema ([facility]/HCC) from Last 3 Months or Most Recently Relevant to Health Maintenance Results * RETINAL PHOTO COAGULATION RIGHT (04/25/2016 12:29 PM CDT) Narrative INTERFACE SYSTEM - 04/25/2016 12:29 PM CDT Jacques West MD 04/25/2016 12:29 PM Larkin-retinal Laser Photocoagulation Procedure Note Diagnosis: Proliferative diabetic retinopathy, right eye. Procedure: Larkin-retinal laser photocoagulation. Anesthesia: topical Time Out Protocol: Proper Timeout protocol was performed. All patient information and surgical plan was confirmed and agreed upon by Dr. West and the surgical team. Spot Number [id number] Power 300 milliwatts Duration (sec) 0.02 seconds Spot Size 400 micrometers Lens QuadrAspheric fundus/laser lens Laser YAG Complications: None. Findings/Comments: PDR Instructions: Patient was instructed to call with worsening vision or worsening pain. Possible complications discussed. Return visit as scheduled. All laser precautions carefully followed. All observers wearing protective eyewear appropriate for the selected laser wavelength. Procedure Note Conversion, Auto Data - 10/13/2021 Jacques West MD 04/25/2016 12:29 PM [facility]arkin-retinal Laser Photocoagulation Procedure Note Diagnosis: Proliferative diabetic retinopathy, right eye. Procedure: Larkin-retinal laser photocoagulation. Anesthesia: topical Time Out Protocol: Proper Timeout protocol was performed. All patient information and surgical plan was confirmed and agreed upon by Dr. West and the surgical team. Spot Number [id number] Power 300 milliwatts Duration (sec) 0.02 seconds Spot Size 400 micrometers Lens QuadrAspheric fundus/laser lens Laser YAG Complications: None. Findings/Comments: PDR Instructions: Patient was instructed to call with worsening vision or worsening pain. Possible complications discussed. Return visit as scheduled. All laser precautions carefully followed. All observers wearing protective eyewear appropriate for the selected laser wavelength. us Jacques West MD OPH OTHER Final Resul t INTERFACE SYSTEM Refer to clinic/hospital department from Last 3 Months or Most Recently Relevant to Health Maintenance Insurance MEDICAID [place] Advance Directives For more information, please contact: [phone] * Full Code (Latest Code Status on File) Date Activated Date Inactivated Comments 11/27/2024 7:52 PM 12/18/2024 3:38 PM * Default Full Code - Needs Discussion Date Activated Date Inactivated Comments 11/15/2024 12:10 AM 11/18/2024 7:48 PM * Full Code Date Activated Date Inactivated Comments 01/18/2023 10:09 PM 02/03/2023 3:14 PM * Full Code Date Activated Date Inactivated Comments 10/18/2022 9:15 AM 10/18/2022 2:19 PM Care Teams Breakfast Manager Relationship Specialty Start Date End Date Nel Peacock MD [address] [place] [address] PCP - General Internal Medicine 07/23/15
--- OUTSIDE RECORDS SUMMARY | 2025-07-01 18:06 | XMS_ITS | Clinical Summary ---
Author Organization [facility] Address [address] [place] [address] Phone Care Team Providers Care Caramel Coloring Operator Name Role Phone Nel Peacock MD Primary Care Provider [phone]- [phone] Allergies No known active allergies Medications OTHER Insulin Lantis BID . Active gabapentin (NEURONTIN) 600 mg tablet Take 600 mg by mouth 3 times daily. Active HYDROcodone-liss taminophen (NORCO) 10-325 mg Tablet Take 1 Tablet by mouth every 6 hours as needed for Pain, Moderate. Active folic acid (FOLVITE) 1 mg tablet Take 1 mg by mouth daily. Active rOPINIRole (REQUIP) 2 mg Tablet Take 2 mg by mouth. Active insulin lispro (HUMALOG) 100 unit/mL Solution Inject by subcutaneous injection 3 times daily with meals. Active sertraline (ZOLOFT) 100 mg tablet Take 100 mg by mouth 2 times daily. Active ranitidine (ZANTAC) 150 mg tablet Take 1 Tablet (150 mg) by mouth 2 times daily. 6 Active dicyclomine (BENTYL) 10 mg capsule TAKE ONE CAPSULE BY MOUTH TWICE DAILY BEFORE BREAKFAST AND AT BEDTIME 120 Capsule 2 6 Active Eliquis 5 mg tablet Take 5 mg by mouth 2 times daily. 0 Active aspirin (ECOTRIN EC) 81 mg Tablet, Delayed Release (E.C.) Take 81 mg by mouth daily. Active cilostazoL (PLETAL) 50 mg Tablet Take 50 mg by mouth 2 times daily. 0 Active DULoxetine (CYMBALTA) 30 mg Capsule, Delayed Release(E.C.) Take 1 Capsule by mouth daily. 0 Active enalapril (VASOTEC) 20 mg tablet Take 1 Tablet by mouth daily. 0 Active EPINEPHrine (EPIPEN) 0.3 mg/0.3 mL Auto-Injector Continuous as needed. 0 Active hydrOXYchloroQU INE (PLAQUENIL) 200 mg tablet Take 200 mg by mouth 2 times daily. 0 Active NovoLOG Flexpen U-100 Insulin 100 unit/mL (3 mL) pen syringe INJECT UP TO 14 UNITS SUB Q THREE TIMES A DAY JUST PRIOR TO MEALS 0 Active insulin glargine (LANTUS) 100 unit/mL vial Inject 40 Units by subcutaneous injection. Active Combivent Respimat 20-100 mcg/actuation Mist Take 1 Puff by inhalation every 6 hours as needed. 0 Active isosorbide dinitrate (ISORDIL) 30 mg Tablet Take 0.5 Tablets by mouth 2 times daily. 0 Active loperamide (IMODIUM) 2 mg capsule Take 2 mg by mouth 1 time daily as needed. Active metoprolol succinate (TOPROL XL) 25 mg Extended Release 24 hour tablet Take 0.5 Tablets by mouth daily. 0 Active omeprazole (PriLOSEC) 20 mg Capsule, Delayed Release(E.C.) Take 20 mg by mouth daily. Active oxyCODONE (ROXICODONE) 15 mg tablet Take 1 Tablet by mouth 2 times daily. 0 Active rosuvastatin (CRESTOR) 20 mg tablet Take 1 Tablet by mouth daily. 0 Active traZODone (DESYREL) 50 mg tablet Take 1 Tablet by mouth late in the day. 0 Active escitalopram oxalate (LEXAPRO) 20 mg tablet Take 1 Tablet by mouth daily. 0 Active predniSONE (DELTASONE) 1 mg tablet Take 7.5 mg by mouth daily. 0 Active topiramate (TOPAMAX) 50 mg tablet Take 50 mg by mouth 2 times daily. 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 macular edema 02/25/2016 Tobacco use 07/23/2015 Rheumatoid arthritis 07/23/2015 Postprandial diarrhea 07/23/2015 DM (diabetes mellitus) 07/23/2015 Abnormal liver enzymes 07/23/2015 Overview (08/31/2015): 08/25 MR/MRCP unremarkable post cholecystectomy state Immunizations Immunization Administration Dates Next Due (TDVAX)(7 [...] Used Date Smoking Tobacco: Every Day Cigarettes 1 30 Alcohol Use Standard Drinks/Week Comments No 0 (1 standard drink = 0.6 oz pur e alcohol) Comments No Sex and Gender Information Value Date Recorded Sex Assigned at Not on file 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 Gender Identity Not on file Sexual Orientation Not on file Occupation Industry Job Start Date Job End Date Unemployed Not on file Not on file Not on file Last Filed Vital Signs Vital Sign Reading Time Taken Comments Blood Pressure 123/81 12/27/2016 10:40 AM CDT Pulse 79 12/27/2016 10:40 AM CDT Temperature - - Respiratory Rate - - Oxygen Saturation 100% 08/13/2015 8:44 AM CLINIC CLERK Inhaled Oxygen Concentration - - Weight 68.9 kg (152 lb) 12/27/2016 10:40 AM CDT Height 165.1 cm (5' 5 ) 12/27/2016 10:40 AM CDT Body Mass Index 25.29 12/27/2016 10:40 AM CDT Plan of Treatment Health Maintenance Due Date Last Done Comments DIABETES ANNUAL FOOT EXAM 1986 DIABETES HBA1C Q 6 MONTHS 1986 DIABETES MICROALBUMIN ANNUAL SCREEN 1986 LDL CHOLESTEROL ANNUAL 1986 HEPATITIS B VACCINES (1 of 3 - 19+ 3-dose series) 09/23/1987 ZOSTER VACCINE (1 of 2) 09/23/1987 HPV/Cotest (21-29) 1989 DTAP/TDAP/TD VACCINES (1 - Tdap) 01/24/1998 01/23/19 98 CERVICAL CANCER SCREENING 1998 HPV/Cotest (30-65) 1998 PAP SMEAR 1998 BREAST CANCER SCREENING 2008 COLORECTAL SCREENING 2013 Colorectal Cancer Screening 2013 FIT-DNA Q 3 years 2013 FIT/FOBT Q 1 year 2013 Flex Sig/CT Colonography Q 5 years 2013 DIABETES ANNUAL RETINAL EXAM 02/10/202110/2019, 02/11/2020, 02/11/2020, Additional history exists INFLUENZA VACCINE (#1) 2025 Procedures Procedure Name Priority Date/Time Associated Diagnosis Comments IN TREATMENT EXTENSIVE RETINOPATHY PHOTOCOAGULATION Routine 04/25/2016 12:29 PM CDT Type 1 diabetes mellitus with proliferative retinopathy of both eyes without macular edema ([facility]/HCC) from Last 3 Months or Most Recently Relevant to Health Maintenance Results * IN TREATMENT EXTENSIVE RETINOPATHY PHOTOCOAGULATION (04/25/2016 12:29 PM CDT) Narrative [facility] - 04/25/2016 12:29 PM CDT Jacques West [...] West MD OPH OTHER Final Resul t [facility] CLIA# [id number] [address] [place] [address] from Last 3 Months or Most Recently Relevant to Health Maintenance Insurance MEDICAID [place] Care Teams Caramel Coloring Operator Relationship Specialty Start Date End Date Nel Peacock MD [address] [place] [address] PCP - General Internal Medicine 07/23/15
--- OUTSIDE RECORDS SUMMARY | 2025-07-01 18:06 | XMS_ITS | Patient Health Record ---
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 Name Role Phone Peter Bates Unavailable [phone] Francisco Bond Unavailable [phone] Allergies Allergen (clinical drug ingredient) Drug/Non Drug Allergy documented on EMR Reaction Allergy Type Onset Date Status topiramate Topamax Unknown Drug Allergy Active Reason For Referral Reason eval and treat Diagnosis 1 Chronic pain (G89.29 ) Referring Provider First Name Nel Referring Provider Last Name Ayush Referring Provider Speciality Internal M edicine Referred Organization [facility] Referred Provider Alyse Brandt Referred Address [address] [place] [address],[place],[phone], Referred Provider Specialty Pain Medicin e General Notes Jacquie Mazariegos 03/20 09:36:42 AM CDT > atc lvm Referral Priority Routine Reason eval and treat for p hysical therapy - Lumbar and Gait Training Diagnosis 1 Chronic pain syndrom e (G89.4) Diagnosis 2 Abnormality of gait and mobility (R26.9) Diagnosis 3 Lumbar spondylosis ( M47.816) Referral Organization [facility] Referring Provider First Name Francisco Referring Provider Last Name Ronda Referring Provider Speciality Interventi onal Pain Medicine Referred Provider [facility] Referred Provider Specialty Preventive M edicine Referral Priority Routine Medications Medication SIG (Take, Route, Frequency, Duration) Notes Start Date End Date Status Dexcom G6 Sensor - Miscellaneous APPLY ONE DEVICE TO SKIN DIRECTED EVERY 10 DAYS; Duration: 30 Days Active Tamsulosin HCl 0.4 MG Capsule TAKE 1 CAPSULE BY MOUTH ONCE DAILY Oral; Duration: 30 Days Active Sertraline HCl 100 MG Tablet TAKE 1 TABLET BY MOUTH ONCE DAILY Oral; Duration: 30 Days Active Glucagon Emergency 1 MG Solution Reconstituted USE 1MG SUB-Q ONCE DAILY NEEDED FOR HYPOGLYCEMIA Injection; Duration: 1 Days Active HYDROcodone-Acetaminop hen 5-325 MG Tablet TAKE 1 TABLET BY MOUTH 4 TIMES DAILY NEEDED FOR PAIN Oral; Duration: 14 Days Active Otezla 30 MG Tablet TAKE ONE TABLET BY MOUTH TWICE DAILY Oral; Duration: 30 Days Active traZODone HCl 50 MG Tablet TAKE 1 TABLET BY MOUTH AT BEDTIME NEEDED Oral; Duration: 30 Days Active predniSONE 10 MG Tablet TAKE 1 TO 2 TABLETS BY MOUTH ONCE DAILY NEEDED FOR JOINT FLARE PAIN FOR 3 TO 7 DAYS Oral; Duration: 7 Days Active Azithromycin 250 MG Tablet TAKE 2 TABLETS BY MOUTH ON DAY 1, AND THEN TAKE 1 TABLET BY MOUTH ONCE A DAY ON DAY 2 THROUGH DAY 5 Oral; Duration: 5 Days Active HYDROcodone-Acetaminop hen 5-325 MG Tablet 1 tablet as needed Orally every 12 hours; Duration: 30 days Fill 06/18/2025 06/11/2025 07/18/2025 Active Metoclopramide HCl 10 MG Tablet TAKE 1 TABLET BY MOUTH THREE TIMES DAILY NEEDED Oral; Duration: 30 Days Active Gabapentin 300 MG Capsule TAKE 1 CAPSULE BY MOUTH THREE TIMES DAILY Oral; Duration: 30 Days Active rOPINIRole HCl 3 MG Tablet TAKE 1 TABLET BY MOUTH ONCE DAILY AT BEDTIME Oral; Duration: 30 Days Active Lantus SoloStar 100 UNIT/ML Solution Pen-injector INJECT 50 UNITS SUBCUTANEOUSLY AT BEDTIME Subcutaneous; Duration: 30 Days Active Trelegy Ellipta 100-62.5-25 MCG/ACT Aerosol Powder Breath Activated INHALE 1 PUFF ONCE DAILY Inhalation; Duration: 30 Days Active Ciprofloxacin HCl 500 MG Tablet TAKE 1 TABLET BY MOUTH TWICE DAILY Oral; Duration: 7 Days Active EPINEPHrine 0.3 MG/0.3ML Solution Auto-injector INJECT CONTENTS OF 1 PEN NEEDED FOR ALLERGIC REACTION Injection; Duration: 2 Days Active Rosuvastatin Calcium 10 MG Tablet TAKE 1 TABLET BY MOUTH ONCE DAILY Oral; Duration: 30 Days Active Ramipril 2.5 MG Capsule TAKE 1 CAPSULE BY MOUTH ONCE DAILY Oral; Duration: 30 Days Active Ventolin HFA 108 (90 Base) MCG/ACT Aerosol Solution INHALE 2 PUFFS BY MOUTH EVERY 4 HOURS NEEDED FOR COUGH AND FOR WHEEZING Inhalation; Duration: 17 Days Active Xeljanz 5 MG Tablet TAKE ONE TABLET BY MOUTH TWICE DAILY Oral; Duration: 30 Days Active Problems Problem Type SNOMED Code ICD Code Onset Dates Problem Status W/U Status Risk Notes Problem Chronic pain syndrome (869168853) Chronic pain syndrome (G89.4) Active confirmed Problem Polyarthritis (757470817) Other polyosteoarthritis (M15.8) Active confirmed Problem Lumbar spondylosis (651327331) Lumbar spondylosis (M47.816) Active confirmed Problem Chronic pain (79179154) Chronic pain (G89.29) Active confirmed Problem Abnormal gait (06250474) Abnormality of gait and mobility (R26.9) Active confirmed Problem Amputated below knee (714377969) Right below-knee amputee (Z89.511) Active confirmed Problem Rheumatoid arthritis (04523329) Rheumatoid arthritis (714.0) 015 Active confirmed [id number]- Problem Diabetes mellitus type 2 (disorder) (18777515) Type 2 diabetes (250.00) Problem resolved confirmed [id number]- Vital Signs Weight-kg 86.64 kg 06/11/2025 Weight 191 lbs 06/11/2025 Encounters Encounter Location Date Provider Diagnosis [facility] [place] [address] [place] [id number] 06/11/2025 Francisco Bond Chronic pain syndrom e G89.4 ; Lumbar spondylosis M47.816 ; Other polyosteoarthritis M15.8 ; Abnormality of gait and mobility R26.9 ; Right below-knee amputee Z89.511 ; intermediate (current) use of opiate analgesic Z79.891 and Continuous tobacco abuse Z72.0 [facility] [address] [address] 06/19/2025 Francisco Bond Assessments Encounter Date Diagnosis (ICD Code) Assessment Notes Treatment Notes Treatment Clinical Notes Section Notes 06/11/2025 Lumbar spondylosis (ICD-10 - M47.816) 06/11/2025 Chronic pain syndrom e (ICD-10 - G89.4) I had a nice visit with the patient today regarding her chronic pain issues. Based on her history and PE, her pain appears multifactorial. The worst of her symptoms appears consistent with lumbar spondylosis, polyosteoarthrit is, and overall debility and gait abnormalities consistent with her right BKA. We discussed treatment options. It would be reasonable to get her into PT. With regard to medications, we will take over prescribing her medications. We will follow up in 6 weeks and proceed accordingly. 06/11/2025 Other polyosteoarthritis (ICD-10 - M15.8) 06/11/2025 Abnormality of gait and mobility (ICD-10 - R26.9) 06/11/2025 Right below-knee amputee (ICD-10 - Z89.511) 06/11/2025 intermediate (current) use of opiate analgesic (ICD-10 - Z79.891) 06/11/2025 Continuous tobacco abuse (ICD-10 - Z72.0) 06/11/2025 Other I, Saray Paulino, am scribing for Dr. Francicso Bond. I, Dr. Francisco Bond, personally performed the services described in this documentation, as scribed by Saray Paulino, and it is both accurate and complete. Plan Of Treatment Next Appt Details Provider Name:Francisco Bond, 07/23/2025 02:20:00 PM, [address] [place], [address], Insurance Providers Payer Name Payer Address Payer Phone Subscriber Number Group Number Insured Name Patient Relationship to Insured Coverage Start Date Coverage End Date [place] Medicaid [address] [place] [address] [phone] [id number] Erin Kelley Self - patient is the insured Medical (General) History Medical History History ICD Code Diabetes asthma bronchitis Emphysema Stroke Arthritis constipation Kidney Stones Swelling of multiple joints Surgical History Surgery Date(Month/Year) hysterectomy Hip replacement Leg amputation
--- NOTE | 2025-07-01 18:20 | XRR_ITS ---
PROCEDURE INFORMATION: Exam: XR Right Hip Exam date and time: 07/01/2025 6:23 PM Age: 54 years old Clinical indication: Hip pain; Right hip; Prior surgery; Surgery date: 6+ months; Surgery type: RT hip; Additional info: Right hip pain, total in November, w/ pelvis TECHNIQUE: Imaging protocol: Radiologic exam of the right hip. Views: 2 or 3 views hip with pelvis when performed. COMPARISON: CR XR hip RT 2-3V wo/w pel* [id number] 02/25/2025 8:54 AM FINDINGS: Bones/joints: Intact right hip hemiarthroplasty. Components in good position. No periprosthetic fractures. Decreased osseous mineralization subjectively. Left hip joint unremarkable. Soft tissues: Unremarkable. Vasculature: Phleboliths in the pelvis. XR/XR hip RT 2-3V wo/w pel* [id number] IMPRESSION: 1. Intact right hip hemiarthroplasty. Components in good position. 2. No fractures or malalignment. 3. Decreased osseous mineralization subjectively.
--- NOTE | 2025-07-01 18:44 | W.ED.EXTPRO ---
Documented by User: JEANNE Grant 07/01/25 19:21 HPI - Extremity Problem General: Chief complaint: Extremity Injury, Lower Stated complaint: Feels like RT hip popped out of place Time Seen by Provider: 07/01/25 18:15 Source: patient Mode of arrival: ambulatory Limitations: no limitations History of Present Illness: Patient is a 54-year-old female who presents emergency department complaining of right hip pain since this morning. She states that she had a total hip replacement in November of this year with Dr. Mullen, and has intermittently had pain since and has wants to prior dislocated it. She states that she feels like her hip is currently popped out of place that she cannot bear weight, arrives in a wheelchair and refuses to bear any weight. Pain has been persistent all day, she takes Lapoint chronically for pain. She has a history of right AKA. She is able to flex and extend at the right hip but very limited secondary to the pain that she reports. Denies any falls or recent trauma. MD Complaint: joint pain Onset (ago): hour(s) Pain Consistency: constant Location: right and other (hip) Associated symptoms: Deny chest pain, fever(s) or rash Related Data Home Medications ?Medication ?Instructions ?Recorded ?Confirmed omeprazole 40 mg capsule,delayed 40 mg PO QAM 09/05/19 06/12/25 release albuterol sulfate 2.5 mg/3 mL 2.5 mg inhalation Q6H PRN 04/01/20 06/12/25 (0.083 %) solution for nebulization Shortness Of Breath aspirin 81 mg tablet,delayed 81 mg PO DAILY@0800 08/15/20 06/12/25 release alprazolam 0.25 mg tablet 0.25 mg PO DAILY PRN anxiety 09/16/22 06/12/25 sertraline 100 mg tablet (Zoloft) 100 mg PO QPM 01/12/23 06/12/25 acetaminophen 500 mg tablet 1,000 mg PO Q12H PRN Pain 03/07/23 06/12/25 guaifenesin 600 mg tablet, 600 mg PO Q12H PRN Congestion 03/07/23 06/12/25 extended release 12 hr (Mucinex) magnesium hydroxide 400 mg/5 mL 30 ml PO DAILY PRN Constipation 03/07/23 06/12/25 oral suspension (Milk of Magnesia) ropinirole 3 mg tablet 3 mg PO BEDTIME 03/07/23 06/12/25 cholecalciferol (vitamin D3) 125 125 mcg PO DAILY 11/23/24 06/12/25 mcg (5,000 unit) tablet (Vitamin D3) gabapentin 300 mg capsule 300 mg PO BID 02/13/25 06/12/25 prednisone 5 mg tablet 5 mg PO DAILY flares 02/13/25 06/12/25 Held on 03/11/25. Instructions: Resume on 06/12/25. insulin lispro 100 unit/mL 100 unit SUBCUT DIRECTED 03/06/25 06/12/25 subcutaneous solution (Humalog U-100 Insulin) ramipril 2.5 mg capsule mg PO 04/01/25 06/12/25 hydrocodone 2.5 mg-acetaminophen 1 tab PO TID PRN 04/07/25 06/12/25 325 mg tablet insulin glargine 100 unit/mL (3 50 unit SUBCUT QAM 04/07/25 06/12/25 mL) subcutaneous pen (Lantus Solostar U-100 Insulin) rosuvastatin 10 mg tablet 10 mg PO QDAY 04/07/25 06/12/25 potassium chloride 20 mEq 20 meq PO DAILY 05/20/25 06/12/25 tablet,extended release (K-Tab) Previous Rx's ?Medication ?Instructions ?Recorded nitroglycerin 0.4 mg sublingual 0.4 mg sublingual Q5M PRN chest 09/09/19 tablet (Nitrostat) pain 30 days #25 tabs apremilast 30 mg tablet (Otezla) 30 mg PO BID #60 tabs 05/20/25 tofacitinib 5 mg tablet (Xeljanz) 5 mg PO BID #60 tabs 05/20/25 prednisone 10 mg tablet See Rx Instructions PO .COMPLEX 05/29/25 PRN joint pain #30 tabs budesonide 160 mcg-glycopyr 9 2 inh inhalation BID #5.9 grams 06/12/25 mcg-formot 4.8 mcg/actuation HFA inhaler (Breztri Aerosphere) varenicline tartrate 0.5 mg (11)-1 See Rx Instructions PO PER PKG DIR 06/12/25 mg (42) tablets in a dose pack #53 ea (Chantix Starting Month Box) Allergies Allergy/AdvReac Type Severity Reaction Status Date / Time bee venom protein (honey bee) Allergy ALGY-Anaphy Verified 06/12/25 08:26 laxis topiramate (From Topamax) Allergy ADR-Halluci Verified 06/12/25 08:26 nating Review of Systems General: Reports: 10 or more systems reviewed and unremarkable except in HPI and below Const: Denies: fever(s) or chills Card: Denies: chest pain Resp: Denies: dyspnea or productive cough GI: Denies: abdominal pain, nausea, vomiting or diarrhea : Denies: flank pain Musc: Reports: joint pain (right hip) and limited range of motion (right hip); Denies: neck pain, back pain, extremity pain, extremity swelling, joint swelling, joint redness, joint warmth or muscle weakness Skin/Breast: Denies: rash Neuro: Denies: headache(s), numbness in extremities or weakness in extremities PFSH ED PFSH: Medical History PVD (peripheral vascular disease) Tobacco abuse COPD (chronic obstructive pulmonary disease) Bronchitis Plaque psoriasis Immunization counseling High risk medication use Seropositive rheumatoid arthritis of multiple sites Closed fracture of right distal fibula Fall at home Closed fracture of right distal tibia Closed right ankle fracture Fracture of distal end of tibia with fibula Acute gout of right ankle Psoriasis Cigarette smoker motivated to quit Thrombocytopenia Rheumatoid arthritis Transaminitis Immunocompromised Chronic anticoagulation Portal vein thrombosis COVID-19 Syncope Seizures Onychodystrophy Rheumatoid arthritis Closed fracture of right distal fibula Emphysema/COPD Avulsion fracture of left ankle Essential hypertension Claudication Spondylosis of lumbar region without myelopathy or radiculopathy Long-term current use of opiate analgesic Pain, joint, multiple sites Osteoporosis Fibromyalgia Diabetes DDD (degenerative disc disease), cervical Cervical spondylosis Tobacco use disorder Surgical History History of hip surgery Hx of right BKA S/P ANN-BSO S/P foot surgery Hx of section (~1989) Hx laparoscopic cholecystectomy H/O dilation and curettage Hx of hysterectomy Family History Mother Stroke Cancer SKIN CANCER Sister Stroke Other Diabetes Myocardial infarct Denies family history of Anesthesia complication Bleeding disorder Social History Smoking and tobacco/nicotine status: current every day tobacco/nicotine user (current every day smoker (3 cigarettes a day, has smoked for 40 years. )) cigarettes Packs smoked per day: 1 Years cigarettes smoked: 47 [ Other cigarette details: 10 cigarettes/day currently] Quit status (tobacco/nicotine): considering quitting Second hand smoke exposure: Yes Alcohol intake: former Substance/Drug Use: former Additional social history: Patient wants full code as discussed today 11/10/2024 but no prolonged CPR or life support Caregiver/support person: Yes Lives independently: Yes Household members: spouse Marital status: Current occupational status: disabled Pets and animals: Yes Do you think of yourself as: Straight/Heterosexual Current gender identity: Female Physical Exam Const: COMMON NORMALS: no acute distress, patient oriented x3, no limitations, healthy appearing, alert and well nourished HENMT: COMMON NORMALS: normocephalic and atraumatic HEAD & SCALP: normocephalic and atraumatic Neck/C-Spine: COMMON NORMALS: full ROM, supple and no meningeal signs Extremity: NARRATIVE EXTREMITY EXAM: Tender to palpation to right anterolateral hip there is no obvious deformity. There is no internal/external rotation noted to the right lower extremity. She has range of motion intact at the right hip, though minimal. Right AKA. Neuro: COMMON NORMALS: patient oriented x3, moves all extremities, no focal motor deficits and no sensory deficits noted SENSORIUM/ORIENTATION: Yes alert MENINGEAL SIGNS: Yes no meningeal signs Skin: COMMON NORMALS: no rashes or lesions noted GENERAL SKIN EXAM: no rashes or lesions noted Course Vital Signs: Vital signs: Vital Signs Temperature 98.4 F 07/01/25 18:06 Pulse Rate 78 07/01/25 19:53 Respiratory Rate 16 07/01/25 19:53 Blood Pressure 141/73 07/01/25 19:53 Pulse Oximetry 98 07/01/25 19:53 Oxygen Delivery Me thod Room Air 07/01/25 18:06 MDM - Extremity (Nontraumatic) Medical Decision Making Patient presented with right hip pain been bothering her all day, stated that she thought she slept on it wrong. Had a total arthroplasty earlier this year, and states that it has been dislocated once since the surgery. Pain has been specifically worsened with ambulation or any range of motion, however with examination there is intact range of motion and there is no obvious deformity to indicate possible dislocation. She is tender to palpation to the anterolateral portion, and x-ray does not demonstrate any malalignment and this is not a dislocated prosthesis nor is it a periprosthetic fracture. This is likely functional pain versus other benign etiology, she does have chronic pain history as well as fibromyalgia and arthritis, but there is no surgical intervention to be done at this time. She chronically is on Lapoint, and sees pain management will follow-up as instructed and return with any new or worsening. Lab Data Radiology Impressions Hip/Pelvis X-Ray 07/01/25 18:20 IMPRESSION: 1. Intact right hip hemiarthroplasty. Components in good position. 2. No fractures or malalignment. 3. Decreased osseous mineralization subjectively. All radiology interpretation(s) finalized by discharge Discharge Plan Discharge Patient Disposition: Home Clinical Impression: Acute pain of right hip Condition: Stable Prescriptions: No Action omeprazole 40 mg capsule,delayed release(DR/EC) 40 mg PO QAM alprazolam 0.25 mg tablet 0.25 mg PO DAILY PRN (Reason: anxiety) potassium chloride [K-Tab] 20 mEq tablet extended release 20 meq PO DAILY Otezla 30 mg tablet 30 mg PO BID Qty: 60 5RF Xeljanz 5 mg tablet 5 mg PO BID Qty: 60 5RF prednisone 5 mg tablet 5 mg PO DAILY hydrocodone-acetaminophen 2.5-325 mg tablet 1 tab PO TID PRN ramipril 2.5 mg capsule PO rosuvastatin 10 mg tablet 10 mg PO QDAY Breztri Aerosphere 160-9-4.8 mcg/actuation HFA aerosol inhaler 2 inh inhalation BID Qty: 5.9 6RF varenicline tartrate [Chantix Starting Month Box] 0.5 mg (11)- 1 mg (42) tablets,dose pack See Rx Instructions PO PER PKG DIR Qty: 53 0RF Rx Instructions: PO PER PKG DIR nitroglycerin [Nitrostat] 0.4 mg tablet, sublingual 0.4 mg SUBLINGUAL Q5M PRN (Reason: chest pain) 30 Days Qty: 25 6RF Rx Instructions: until response; do not exceed 3 doses per episode prednisone 10 mg tablet See Rx Instructions PO .COMPLEX PRN (Reason: joint pain) Qty: 30 1RF Rx Instructions: take 1 or 2 tab daily for 3-7 days prn joint pain flare PO PRN; albuterol sulfate 2.5 mg /3 mL (0.083 %) Solution For Nebulization 2.5 mg INHALATION Q6H PRN (Reason: Shortness Of Breath) aspirin 81 mg Tablet,Delayed Release (Dr/Ec) 81 mg PO DAILY@0800 ropinirole 3 mg tablet 3 mg PO BEDTIME acetaminophen 500 mg Tablet 1,000 mg PO Q12H PRN (Reason: Pain) magnesium hydroxide [Milk of Magnesia] 400 mg/5 mL Suspension 30 ml PO DAILY PRN (Reason: Constipation) guaifenesin [Mucinex] 600 mg Tablet Extended Release 12hr 600 mg PO Q12H PRN (Reason: Congestion) cholecalciferol (vitamin D3) [Vitamin D3] 125 mcg (5,000 unit) Tablet 125 mcg PO DAILY gabapentin 300 mg capsule 300 mg PO BID insulin glargine [Lantus Solostar U-100 Insulin] 100 unit/mL (3 mL) insulin pen 50 unit SUBCUT QAM sertraline [Zoloft] 100 mg tablet 100 mg PO QPM insulin lispro [Humalog U-100 Insulin] 100 unit/mL solution 100 unit SUBCUT DIRECTED Rx Instructions: Inject 3 times daily, after meals, based on high-dose insulin sliding scale Discharge Orders: Discharge ED (Routine); Ordered 07/01/25 Ordered By: Volodymyr Travis Referrals: Nel Peacock MD [Primary Care Provider, Internal Medicine] Patient Instructions: Patient Portal & [facility] Instructions Activity Restrictions/Additional Instructions: Hip Pain Discharge Instructions Diagnosis: Acute right hip pain following total hip arthroplasty (hip replacement) performed earlier this year. X-rays today show no fracture or dislocation. Activity and Movement: - Move as your comfort allows. Recent studies show that patients recover well without strict hip movement restrictions. - You may bend your hip, get in and out of cars, sleep on either side, and perform daily activities based on your pain level and comfort. - Gradually increase your activity as tolerated. Listen to your body and rest when needed. - You may use assistive devices (walker, cane) if they help with comfort and stability, but they are not required. Pain Management: - Continue taking your hydrocodone as prescribed for pain control. - Use ice packs on the hip for 15-20 minutes several times daily to help reduce pain and any swelling. - Avoid activities that significantly worsen your pain. Warning Signs - Seek Immediate Medical Attention If You Experience: - Sudden, severe worsening of hip pain - Feeling that your hip has popped out or is unstable - Inability to bear weight on the leg - Fever (temperature above 100.4?F or 38?C) - Increasing redness, warmth, or drainage from your surgical incision - New numbness or weakness in your leg Follow-Up Care: - Schedule an appointment with your orthopedic surgeon or resin painter within 1-2 weeks as discussed. - Your doctor may want to evaluate for other causes of hip pain, which can include soft tissue irritation, tendon problems, referred pain from your lower back, or other issues that sometimes occur after hip replacement. - Bring a list of activities that worsen your pain to help your doctor identify the cause. Additional Information: - Hip pain after replacement surgery can have many causes, and thorough evaluation is important to determine the best treatment. - Most patients find their pain improves with time and appropriate management. - Physical therapy may be helpful if recommended by your orthopedic surgeon, though many patients recover well with self-directed exercise. If you have questions or concerns before your follow-up appointment, contact your orthopedic surgeon's office. Print Language: Greenlandic Coding Level of Care Code ED Barrel Ribs Solderer for Ayshag Fwd Documented by User: Davis Calderon DO 07/04/25 22:10 HPI - Extremity Problem General: Chief complaint: Extremity Injury, Lower Stated complaint: Feels like RT hip popped out of place Time Seen by Provider: 07/01/25 18:15 Related Data Home Medications ?Medication ?Instructions ?Recorded ?Confirmed omeprazole 40 mg capsule,delayed 40 mg PO QAM 09/05/19 06/12/25 release albuterol sulfate 2.5 mg/3 mL 2.5 mg inhalation Q6H PRN 04/01/20 06/12/25 (0.083 %) solution for nebulization Shortness Of Breath aspirin 81 mg tablet,delayed 81 mg PO DAILY@0800 08/15/20 06/12/25 release alprazolam 0.25 mg tablet 0.25 mg PO DAILY PRN anxiety 09/16/22 06/12/25 sertraline 100 mg tablet (Zoloft) 100 mg PO QPM 01/12/23 06/12/25 acetaminophen 500 mg tablet 1,000 mg PO Q12H PRN Pain 03/07/23 06/12/25 guaifenesin 600 mg tablet, 600 mg PO Q12H PRN Congestion 03/07/23 06/12/25 extended release 12 hr (Mucinex) magnesium hydroxide 400 mg/5 mL 30 ml PO DAILY PRN Constipation 03/07/23 06/12/25 oral suspension (Milk of Magnesia) ropinirole 3 mg tablet 3 mg PO BEDTIME 03/07/23 06/12/25 cholecalciferol (vitamin D3) 125 125 mcg PO DAILY 11/23/24 06/12/25 mcg (5,000 unit) tablet (Vitamin D3) gabapentin 300 mg capsule 300 mg PO BID 02/13/25 06/12/25 prednisone 5 mg tablet 5 mg PO DAILY flares 02/13/25 06/12/25 Held on 03/11/25. Instructions: Resume on 06/12/25. insulin lispro 100 unit/mL 100 unit SUBCUT DIRECTED 03/06/25 06/12/25 subcutaneous solution (Humalog U-100 Insulin) ramipril 2.5 mg capsule mg PO 04/01/25 06/12/25 hydrocodone 2.5 mg-acetaminophen 1 tab PO TID PRN 04/07/25 06/12/25 325 mg tablet insulin glargine 100 unit/mL (3 50 unit SUBCUT QAM 04/07/25 06/12/25 mL) subcutaneous pen (Lantus Solostar U-100 Insulin) rosuvastatin 10 mg tablet 10 mg PO QDAY 04/07/25 06/12/25 potassium chloride 20 mEq 20 meq PO DAILY 05/20/25 06/12/25 tablet,extended release (K-Tab) Previous Rx's ?Medication ?Instructions ?Recorded nitroglycerin 0.4 mg sublingual 0.4 mg sublingual Q5M PRN chest 09/09/19 tablet (Nitrostat) pain 30 days #25 tabs apremilast 30 mg tablet (Otezla) 30 mg PO BID #60 tabs 05/20/25 tofacitinib 5 mg tablet (Xeljanz) 5 mg PO BID #60 tabs 05/20/25 prednisone 10 mg tablet See Rx Instructions PO .COMPLEX 05/29/25 PRN joint pain #30 tabs budesonide 160 mcg-glycopyr 9 2 inh inhalation BID #5.9 grams 06/12/25 mcg-formot 4.8 mcg/actuation HFA inhaler (Breztri Aerosphere) varenicline tartrate 0.5 mg (11)-1 See Rx Instructions PO PER PKG DIR 06/12/25 mg (42) tablets in a dose pack #53 ea (Chantix Starting Month Box) Allergies Allergy/AdvReac Type Severity Reaction Status Date / Time bee venom protein (honey bee) Allergy ALGY-Anaphy Verified 06/12/25 08:26 laxis topiramate (From Topamax) Allergy ADR-Halluci Verified 06/12/25 08:26 evie [facility] PFS: Medical History PVD (peripheral vascular disease) Tobacco abuse COPD (chronic obstructive pulmonary disease) Bronchitis Plaque psoriasis Immunization counseling High risk medication use Seropositive rheumatoid arthritis of multiple sites Closed fracture of right distal fibula Fall at home Closed fracture of right distal tibia Closed right ankle fracture Fracture of distal end of tibia with fibula Acute gout of right ankle Psoriasis Cigarette smoker motivated to quit Thrombocytopenia Rheumatoid arthritis Transaminitis Immunocompromised Chronic anticoagulation Portal vein thrombosis COVID-19 Syncope Seizures Onychodystrophy Rheumatoid arthritis Closed fracture of right distal fibula Emphysema/COPD Avulsion fracture of left ankle Essential hypertension Claudication Spondylosis of lumbar region without myelopathy or radiculopathy Long-term current use of opiate analgesic Pain, joint, multiple sites Osteoporosis Fibromyalgia Diabetes DDD (degenerative disc disease), cervical Cervical spondylosis Tobacco use disorder Surgical History History of hip surgery Hx of right BKA S/P ANN-BSO S/P foot surgery Hx of section (~1989) Hx laparoscopic cholecystectomy H/O dilation and curettage Hx of hysterectomy Family History Mother Stroke Cancer SKIN CANCER Sister Stroke Other Diabetes Myocardial infarct Denies family history of Anesthesia complication Bleeding disorder Social History Smoking and tobacco/nicotine status: current every day tobacco/nicotine user (current every day smoker (3 cigarettes a day, has smoked for 40 years. )) cigarettes Packs smoked per day: 1 Years cigarettes smoked: 47 [ Other cigarette details: 10 cigarettes/day currently] Quit status (tobacco/nicotine): considering quitting Second hand smoke exposure: Yes Alcohol intake: former Substance/Drug Use: former Additional social history: Patient wants full code as discussed today 11/10/2024 but no prolonged CPR or life support Caregiver/support person: Yes Lives independently: Yes Household members: spouse Marital status: Current occupational status: disabled Pets and animals: Yes Do you think of yourself as: Straight/Heterosexual Current gender identity: Female Course Vital Signs: Vital signs: Vital Signs Temperature 98.4 F 07/01/25 18:06 Pulse Rate 78 07/01/25 19:53 Respiratory Rate 16 07/01/25 19:53 Blood Pressure 141/73 07/01/25 19:53 Pulse Oximetry 98 07/01/25 19:53 Oxygen Delivery Me thod Room Air 07/01/25 18:06 MDM - Extremity (Nontraumatic) Medical Decision Making Patient presented with right hip pain been bothering her all day, stated that she thought she slept on it wrong. Had a total arthroplasty earlier this year, and states that it has been dislocated once since the surgery. Pain has been specifically worsened with ambulation or any range of motion, however with examination there is intact range of motion and there is no obvious deformity to indicate possible dislocation. She is tender to palpation to the anterolateral portion, and x-ray does not demonstrate any malalignment and this is not a dislocated prosthesis nor is it a periprosthetic fracture. This is likely functional pain versus other benign etiology, she does have chronic pain history as well as fibromyalgia and arthritis, but there is no surgical intervention to be done at this time. She chronically is on Lapoint, and sees pain management will follow-up as instructed and return with any new or worsening. Chart reviewed Lab Data Radiology Impressions Hip/Pelvis X-Ray 07/01/25 18:20 IMPRESSION: 1. Intact right hip hemiarthroplasty. Components in good position. 2. No fractures or malalignment. 3. Decreased osseous mineralization subjectively. Discharge Plan Discharge Patient Disposition: Home Clinical Impression: Acute pain of right hip Condition: Stable Prescriptions: No Action omeprazole 40 mg capsule,delayed release(DR/EC) 40 mg PO QAM alprazolam 0.25 mg tablet 0.25 mg PO DAILY PRN (Reason: anxiety) potassium chloride [K-Tab] 20 mEq tablet extended release 20 meq PO DAILY Otezla 30 mg tablet 30 mg PO BID Qty: 60 5RF Xeljanz 5 mg tablet 5 mg PO BID Qty: 60 5RF prednisone 5 mg tablet 5 mg PO DAILY hydrocodone-acetaminophen 2.5-325 mg tablet 1 tab PO TID PRN ramipril 2.5 mg capsule PO rosuvastatin 10 mg tablet 10 mg PO QDAY Breztri Aerosphere 160-9-4.8 mcg/actuation HFA aerosol inhaler 2 inh inhalation BID Qty: 5.9 6RF varenicline tartrate [Chantix Starting Month Box] 0.5 mg (11)- 1 mg (42) tablets,dose pack See Rx Instructions PO PER PKG DIR Qty: 53 0RF Rx Instructions: PO PER PKG DIR nitroglycerin [Nitrostat] 0.4 mg tablet, sublingual 0.4 mg SUBLINGUAL Q5M PRN (Reason: chest pain) 30 Days Qty: 25 6RF Rx Instructions: until response; do not exceed 3 doses per episode prednisone 10 mg tablet See Rx Instructions PO .COMPLEX PRN (Reason: joint pain) Qty: 30 1RF Rx Instructions: take 1 or 2 tab daily for 3-7 days prn joint pain flare PO PRN; albuterol sulfate 2.5 mg /3 mL (0.083 %) Solution For Nebulization 2.5 mg INHALATION Q6H PRN (Reason: Shortness Of Breath) aspirin 81 mg Tablet,Delayed Release (Dr/Ec) 81 mg PO DAILY@0800 ropinirole 3 mg tablet 3 mg PO BEDTIME acetaminophen 500 mg Tablet 1,000 mg PO Q12H PRN (Reason: Pain) magnesium hydroxide [Milk of Magnesia] 400 mg/5 mL Suspension 30 ml PO DAILY PRN (Reason: Constipation) guaifenesin [Mucinex] 600 mg Tablet Extended Release 12hr 600 mg PO Q12H PRN (Reason: Congestion) cholecalciferol (vitamin D3) [Vitamin D3] 125 mcg (5,000 unit) Tablet 125 mcg PO DAILY gabapentin 300 mg capsule 300 mg PO BID insulin glargine [Lantus Solostar U-100 Insulin] 100 unit/mL (3 mL) insulin pen 50 unit SUBCUT QAM sertraline [Zoloft] 100 mg tablet 100 mg PO QPM insulin lispro [Humalog U-100 Insulin] 100 unit/mL solution 100 unit SUBCUT DIRECTED Rx Instructions: Inject 3 times daily, after meals, based on high-dose insulin sliding scale Discharge Orders: Discharge ED (Routine); Ordered 07/01/25 Ordered By: Volodymyr Travis Referrals: Nel Peacock MD [Primary Care Provider, Internal Medicine] Patient Instructions: Patient Portal & [facility] Instructions Activity Restrictions/Additional Instructions: Hip Pain Discharge Instructions Diagnosis: Acute right hip pain following total hip arthroplasty (hip replacement) performed earlier this year. X-rays today show no fracture or dislocation. Activity and Movement: - Move as your comfort allows. Recent studies show that patients recover well without strict hip movement restrictions. - You may bend your hip, get in and out of cars, sleep on either side, and perform daily activities based on your pain level and comfort. - Gradually increase your activity as tolerated. Listen to your body and rest when needed. - You may use assistive devices (walker, cane) if they help with comfort and stability, but they are not required. Pain Management: - Continue taking your hydrocodone as prescribed for pain control. - Use ice packs on the hip for 15-20 minutes several times daily to help reduce pain and any swelling. - Avoid activities that significantly worsen your pain. Warning Signs - Seek Immediate Medical Attention If You Experience: - Sudden, severe worsening of hip pain - Feeling that your hip has popped out or is unstable - Inability to bear weight on the leg - Fever (temperature above 100.4?F or 38?C) - Increasing redness, warmth, or drainage from your surgical incision - New numbness or weakness in your leg Follow-Up Care: - Schedule an appointment with your orthopedic surgeon or resin painter within 1-2 weeks as discussed. - Your doctor may want to evaluate for other causes of hip pain, which can include soft tissue irritation, tendon problems, referred pain from your lower back, or other issues that sometimes occur after hip replacement. - Bring a list of activities that worsen your pain to help your doctor identify the cause. Additional Information: - Hip pain after replacement surgery can have many causes, and thorough evaluation is important to determine the best treatment. - Most patients find their pain improves with time and appropriate management. - Physical therapy may be helpful if recommended by your orthopedic surgeon, though many patients recover well with self-directed exercise. If you have questions or concerns before your follow-up appointment, contact your orthopedic surgeon's office. Print Language: Greenlandic Coding Level of Care Code ED Barrel Ribs Solderer for Chikis Toro
[2025-07-01 19:09] VITALS: BP 136/75; PULSE 80; RESP 16; O2SAT 99
[2025-07-01] MEDS: morphine 4 mg/mL SDV 1 mL IM (19:09)
[2025-07-01] MEDS: orphenadrine 30 mg/mL Inj 2 mL 60 MG IM (19:09)
[2025-07-01 19:53] VITALS: BP 141/73; PULSE 78; RESP 16; O2SAT 98
== END 2025-07-01 19:42 | disposition home or self-care (01) ==
PROVIDERS: Emergency Provider Physician Assistant; PCP Internal Medicine
DX: M25.551 Pain in right hip (principal); Z79.82 Long term (current) use of aspirin; Z79.4 Long term (current) use of insulin; F17.210 Nicotine dependence, cigarettes, uncomplicated; J44.9 Chronic obstructive pulmonary disease, unspecified; I10 Essential (primary) hypertension; E11.9 Type 2 diabetes mellitus without complications; Z96.641 Presence of right artificial hip joint
CPT/HCPCS: 73502; 96372; 99284; J1100; J1885; J2270; J2360